=== PATIENT | male | born 1945 | race Caucasian/White ===

== ENCOUNTER → 2018-07-30 08:09 | Outpatient (CLI) | payer MEDICARE, OTHER, SELFPAY ==
[2018-07-22 13:32] VITALS: BMI 23.6
[2018-07-30 09:58] LABS: AST(SGOT) 17 U/L (15-37); Alanine Aminotransfer ALT/SGPT 30 U/L (16-61); Albumin, Serum 3.8 g/dL (3.2-5.0); Alkaline Phosphatase 62 U/L (45-117); Bilirubin, Direct 0.14 mg/dL (0.00-0.30); Cholesterol 113 mg/dL (200); High Density Lipoprotein 57 mg/dL; Protein, Total 6.8 g/dL (6.4-8.2); Triglycerides 70 mg/dL; Very Low Density Lipoprotein 14 mg/dL (5-40)
== END ==
PROVIDERS: Referring Provider Internal Medicine Cardiovascular Disease; Visit Provider Internal Medicine Cardiovascular Disease
DX: I50.32 Chronic diastolic (congestive) heart failure (principal); E78.5 Hyperlipidemia, unspecified
CPT/HCPCS: 36415; 80061; 80076

== ENCOUNTER → 2018-08-28 15:06 | Outpatient (CLI) | payer MEDICARE, OTHER, SELFPAY ==
[2018-07-22 13:32] VITALS: BMI 23.6
[2018-08-28 17:39] LABS: Absolute Lymphocyte Count 1.78 X10^3/ul (0.83-4.51); Absolute Neutrophil Count 3.5 X10^3/uL (2.0-7.7); Basophil# 0.03 X10^3/uL; Basophil% 0.5 % (0-1); Eosinophil# 0.14 X10^3/uL; Eosinophils% 2.3 % (0-5); Hematocrit 38.2 % (40-54); Hemoglobin 11.9 g/dl (13.0-16.5); Lymphocyte # 1.78 X10^3/ul (4.0); Lymphocyte % 29.6 % (19-41); Mean Corp Hgb Conc 31.2 g/gl (32-36); Mean Corpuscular Hgb 26.9 pg (27.0-32.0); Mean Corpuscular Volume 86.2 fL (80-94); Mean Platelet Vol. 9.9 fl (6.2-12.0); Monocyte# 0.57 X10^3/uL; Monocyte% 9.5 % (0-10); Neutrophil # 3.47 X10^3/uL (2.7-7.7); Neutrophil % 57.8 % (47-70); Platelet Count 202 K/mm3 (150-450); RBC Distribution Width CV 16.5 % (11.6-14.6); RBC Distribution Width SD 52.2 fl (35.1-43.9); Red Blood Count 4.43 M/mm3 (4.6-6.2)
[2018-08-28 17:46] LABS: POSITIVE COUNT NO; POSITIVE DIFFERENTIAL NO; POSITIVE MORPHOLOGY NO
[2018-08-28 18:14] LABS: Vitamin D,25 Hydroxy 44.7 ng/mL (29.95-100.01)
[2018-08-28 18:16] LABS: ALB/GLOB Ratio 1.2 RATIO (0.9-2.4); AST(SGOT) 16 U/L (15-37); Alanine Aminotransfer ALT/SGPT 32 U/L (16-61); Albumin, Serum 3.9 g/dL (3.2-5.0); Alkaline Phosphatase 58 U/L (45-117); Anion Gap 8 (5-15); BUN 25 mg/dL (7-18); BUN/Creat Ratio 21.4 RATIO (10-20); Calcium,Total 9.1 mg/dL (8.5-10.1); Chloride 101 mmol/L (98-107); Creatinine, Serum 1.17 mg/dL (0.70-1.30); EST Glomerular Filtration Rate 65 mL/min (>60); Est Glom Filt Rate - Afr Amer 78 mL/min (>60); Globulin 3.3 g/dL (2.2-4.2); Glucose 127 mg/dL (74-106); Magnesium 1.9 mg/dL (1.6-2.6); Potassium 3.9 mmol/L (3.5-5.1); Protein, Total 7.2 g/dL (6.4-8.2); Sodium Level 137 mmol/L (136-145); Thyroid Stim Hormone (TSH) 1.13 uIU/mL (0.358-3.74)
[2018-08-28 18:24] LABS: Hemoglobin A1c 8.1 % (4.2-6.3)
== END ==
PROVIDERS: Family Provider Family Medicine; PCP Family Medicine; Visit Provider Family Medicine
DX: I10 Essential (primary) hypertension (principal); E11.9 Type 2 diabetes mellitus without complications; E55.9 Vitamin D deficiency, unspecified
CPT/HCPCS: 36415; 80053; 82306; 83036; 83735; 84443; 85025

== ENCOUNTER → 2018-09-03 08:58 | Outpatient (CLI) | payer MEDICARE, OTHER, SELFPAY ==
[2018-07-22 13:32] VITALS: BMI 23.6
--- NOTE | 2018-09-03 09:03 | CDU_ITS ---
Reason For Study: Carotid stenosis Rt. Velocities/BP Lt. Velocities/BP Prox CCA 86.3/16.0 cm/sec. Prox CCA 76.2/12.9 cm/sec. Mid CCA 67.5/12.2 cm/sec. Mid CCA 73.3/14.7 cm/sec. Dist CCA 66.9/12.7 cm/sec. Dist CCA 116.0/21.1 cm/sec. Prox ICA 86.8/24.0 cm/sec. Prox ICA 96.7/22.4 cm/sec. Mid ICA 104.0/25.2 cm/sec. Mid ICA 98.5/26.7 cm/sec. Dist ICA 102.0/20.5 cm/sec. Dist ICA 75.9/17.4 cm/sec. Rt. ICA/CCA = 1.5. Lt. ICA/CCA = 1.3. Prox ECA 89.0/7.1 cm/sec. Prox ECA 107.0/8.8 cm/sec. Rt. Vert. 55.4/8.6 cm/sec. Lt. Vert. 68.0/11.1 cm/sec. Right Extracranial There is heterogeneous, irregular atherosclerotic plaque noted in the right common carotid artery. There is heterogeneous, irregular atherosclerotic plaque noted in the right internal carotid artery. The atherosclerotic plaque causes acoustic shadowing. There is heterogeneous, irregular atherosclerotic plaque noted in the right external carotid artery. Antegrade flow is noted in the right vertebral artery. Left Extracranial There is heterogeneous, irregular atherosclerotic plaque noted in the left common carotid artery. There is heterogeneous, irregular atherosclerotic plaque noted in the left internal carotid artery. The atherosclerotic plaque causes acoustic shadowing. There is heterogeneous, irregular atherosclerotic plaque noted in the left external carotid artery. Antegrade flow is noted in the left vertebral artery. Procedure Carotid Duplex [id number]. Exam performed in department. Interpretation Summary Mild (<50%) stenosis right extracranial internal carotid. Mild (<50%) stenosis left extracranial internal carotid. Flow within the vertebral arteries is antegrade bilaterally. Ordering Physician: Nikita Jeff Referring Physician: Jerry Dee Performed By: Siri Valiente RVT
--- NOTE | 2018-09-03 09:03 | ART_ITS ---
Reason For Study: Atherosclerosis with claudication Left Segmental Pressures Left brachial= 162mmHg. Left posterior tibial artery = NCmmHg. Left dorsalis pedis artery = NCmmHg. Right Segmental Pressures Right brachial= 164mmHg. Right posterior tibial artery = NCmmHg. Right dorsalis pedis artery = NCmmHg. Right digit = 195 mmHg. Indices The right ankle brachial index by the dorsalis pedis is NC. The right ankle brachial index by the posterior tibial artery is NC. The right digital-brachial index is 1.2. The left ankle brachial index by the dorsalis pedis is NC. The left ankle brachial index by the posterior tibial artery is NC. Interpretation Summary 1. Bilateral PAYAL noncompressible consistent with medial calcinosis. Triphasic flow noted and left DBI normal. Ordering Physician: Nikita Jeff Referring Physician: Jerry Dee Performed By: Siri Valiente Marine
--- NOTE | 2018-09-03 09:03 | ADUL_ITS ---
Reason For Study: Atherosclerosis with claudication LLE Left Velocities Ext Iliac Artery, dist = 126 cm./sec. Common Femoral Artery, prox = 125 cm./sec. Supf. Femoral Artery, prox = 72.9 cm./sec. Supf. Femoral Artery, mid = 81.3 cm./sec. Supf. Femoral Artery, dist = 65.3 cm./sec. Profunda Femoral Artery = 82.2 cm./sec. Popliteal Artery, proximal, = 45.9 cm./sec. Popliteal Artery, mid = 49.9 cm./sec. Popliteal Artery, distal = 69.8 cm./sec. Post. Tibial Artery, prox = 60.3 cm./sec. Post Tibial Artery, mid = 47.4 cm./sec. Post Tibial Artery, dist. = 53.4 cm./sec. Peroneal Artery, mid = 67.8 cm./sec. Peroneal Artery, prox = 53.9 cm./sec. Ant.Tibial Artery, prox = 22.9 cm./sec. Ant Tibial Artery, mid = 97.3 cm./sec. Ant. Tibial Artery, distal = 73.3 cm./sec. Procedure Exam performed in department. Interpretation Summary 1. Left leg no stenosis and triphasic flow. Ordering Physician: Nikita Jeff Referring Physician: Jerry Dee Performed By: Siri Valiente RVT
--- NOTE | 2018-09-03 09:03 | AAVD_ITS ---
Reason For Study: Aortic atherosclerosis Aorta Measurements Aorta Doppler Measurements Proximal aorta measures1.5 x 1.5cm. in cross- Peak systolic flow velocities within the proximal sectional axis. aorta measure 83.0 cm/sec. Proximal aorta measures1.5cm. in longitudinal Peak systolic flow velocities within the mid aorta axis. measure 88.5 cm/sec. Mid aorta measures1.3 x 1.3cm. in cross-sectional Peak systolic flow velocities within the distal axis. aorta measure 87.6 cm/sec. Mid aorta measures1.3cm. in longitudinal axis. Distal aorta measures1.3 x 1.3cm. in cross- sectional axis. Distal aorta measures1.3cm. in longitudinal axis. Left Iliac Artery Left iliac artery measures .94 cm. in the longitudinal axis. Left iliac artery measures .92 x .94 cm. in the cross-sectional axis. Peak systolic velocity in the left iliac artery measures 89.4 cm/sec. Right Iliac Artery Right iliac artery measures .92 cm. in the longitudinal axis. Right iliac artery measures .97 x .94 cm. in the cross-sectional axis. Peak systolic velocity in the right iliac artery measures 97.6 cm/sec. Procedure Aorta IVC Iliac vasculature or bypass grafts 70071. Exam performed in department. Interpretation Summary 1. no aortoiliac stenosis or aneurysm. Ordering Physician: Nikita Jeff Referring Physician: Jerry Dee Performed By: Siri Valiente RVT
== END ==
PROVIDERS: Family Provider Family Medicine; PCP Family Medicine; Referring Provider Surgery Vascular Surgery; Visit Provider Surgery Vascular Surgery
DX: I70.0 Atherosclerosis of aorta (principal); I65.23 Occlusion and stenosis of bilateral carotid arteries; I70.212 Atherosclerosis of native arteries of extremities with intermittent claudication, left leg
CPT/HCPCS: 93880; 93922; 93926; 93978

== ENCOUNTER → 2018-09-07 13:59 | Outpatient (CLI) | payer MEDICARE, OTHER, SELFPAY ==
[2018-07-22 13:32] VITALS: BMI 23.6
[2018-09-07 14:02] LABS: Bacteria 0 SEEN /hpf (None Seen); Mucous, Urine 0 SEEN /hpf (<or=2+); Red Blood Cells-Urine 0 SEEN /hpf (0-5)
[2018-09-07 15:28] LABS: Color, Urine Yellow (Yellow); Glucose, Dipstick Normal (Normal); Ketone-Dipstick 5 mg/dl (Negative); Leukocyte Esterase-Dipstick 25 /ul (Negative); Nitrite-Dipstick Negative (Negative); Occult Blood-Urine Negative /ul (Negative); Protein-Dipstick Negative (Negative); Urine Bilirubin Dipstick Negative (Negative); Urine Clarity Clear (Clear); Urine Urobilinogen 1 mg/dl (Normal)
[2018-09-07 15:35] LABS: Hyaline Cast 10-25 SEEN /lpf (0-5); Squamous Epithelial Cells - UA 0-5 SEEN /hpf (0-5); White Blood Cells 0-5 SEEN /hpf (0-5)
[2018-09-07 16:18] LABS: Microalbumin,Random Urine 38.7 mg/L (NO RANGE EST.); Microalbumin:Creatinine Ratio 17.4 mg/g CRE (<30 mg/g CRE)
== END ==
PROVIDERS: Family Provider Family Medicine; PCP Family Medicine; Visit Provider Family Medicine
DX: E11.9 Type 2 diabetes mellitus without complications (principal)
CPT/HCPCS: 81001; 82043; 82570

== ENCOUNTER → 2018-10-23 09:13 | Outpatient (CLI) | payer MEDICARE, OTHER, SELFPAY ==
[2018-07-22 13:32] VITALS: BMI 23.6
--- NOTE | 2018-10-23 11:06 | US_ITS ---
STUDY: ULTRASOUND - URINARY BLADDER REASON FOR EXAM: Male, 73 years old. BPH. TECHNIQUE: Ultrasound evaluation of the urinary bladder was performed with real-time and static sy-scale imaging. COMPARISON: None. FINDINGS: There is no right UVJ calculus. There is a non-visualization of a right ureteral jet. There is no left UVJ calculus. There is a non-visualization of a left ureteral jet. The distended volume of the urinary bladder is 96.7 ml. The empty volume of the urinary bladder is 12.8 ml. The bladder wall is within normal limits. The bladder wall measures 3.0 mm. There is no demonstrated bladder wall mass lesion. There are no demonstrated bladder calculi. US/Post Void Residual Bladder IMPRESSION: Normal ultrasound of the urinary bladder. Minimal postvoid residual. Electronically Signed: Singh Brooks, at 10:40 EDT , Service support ,
--- NOTE | 2018-10-23 14:35 | EEG_ITS ---
- Electroencephalogram This is an 18 channel electroencephalogram performed utilizing EKG reference leads as well as the international 1020 electrode placement protocol, photic stimulation and hyperventilation. The test is performed on this 73-year-old male with a history of seizures. Background activity is 8 Hz symmetrically in the posterior leads which attenuates with eye-opening. Hyperventilation is performed for 3 minutes with good effort with no lateralizing or epileptiform changes. The patient remained awake throughout the recording and post hyp erventilatory phase was unremarkable. Photic stimulation generates a normal symmetric driving response and EKG is normal sinus rhythm throughout the recording. Impression: Normal awake electroencephalogram.
== END ==
PROVIDERS: Family Provider Family Medicine; PCP Family Medicine; Referring Provider Family Medicine; Visit Provider Family Medicine
DX: N40.0 Benign prostatic hyperplasia without lower urinary tract symptoms (principal); G40.909 Epilepsy, unspecified, not intractable, without status epilepticus
CPT/HCPCS: 51798; 95819

== ENCOUNTER → 2018-12-15 08:44 | Outpatient (CLI) | payer MEDICARE, OTHER, SELFPAY ==
[2018-07-22 13:32] VITALS: BMI 23.6
[2018-12-15 14:08] LABS: Absolute Lymphocyte Count 1.43 X10^3/ul (0.83-4.51); Absolute Neutrophil Count 1.7 X10^3/uL (2.0-7.7); Basophil# 0.02 X10^3/uL; Basophil% 0.5 % (0-1); Eosinophil# 0.15 X10^3/uL; Hematocrit 35.7 % (40-54); Hemoglobin 11.6 g/dl (13.0-16.5); Lymphocyte # 1.43 X10^3/ul (4.0); Lymphocyte % 37.9 % (19-41); Mean Corp Hgb Conc 32.5 g/gl (32-36); Mean Corpuscular Hgb 29.9 pg (27.0-32.0); Mean Platelet Vol. 9.8 fl (6.2-12.0); Monocyte# 0.47 X10^3/uL; Monocyte% 12.5 % (0-10); Neutrophil % 45.1 % (47-70); Platelet Count 197 K/mm3 (150-450); RBC Distribution Width CV 13.1 % (11.6-14.6); RBC Distribution Width SD 43.5 fl (35.1-43.9); Red Blood Count 3.88 M/mm3 (4.6-6.2); White Blood Count 3.8 K/mm3 (4.4-11.0)
[2018-12-15 14:13] LABS: POSITIVE COUNT NO; POSITIVE DIFFERENTIAL NO; POSITIVE MORPHOLOGY NO
[2018-12-15 14:19] LABS: ALB/GLOB Ratio 1.3 RATIO (0.9-2.4); AST(SGOT) 15 U/L (15-37); Alanine Aminotransfer ALT/SGPT 27 U/L (16-61); Albumin, Serum 3.5 g/dL (3.2-5.0); Alkaline Phosphatase 56 U/L (45-117); Anion Gap 11 (5-15); BUN 10 mg/dL (7-18); BUN/Creat Ratio 10.1 RATIO (10-20); Chloride 105 mmol/L (98-107); Cholesterol 110 mg/dL (200); EST Glomerular Filtration Rate 78 mL/min (>60); Est Glom Filt Rate - Afr Amer 94 mL/min (>60); Globulin 2.7 g/dL (2.2-4.2); Glucose 147 mg/dL (74-106); High Density Lipoprotein 63 mg/dL; Magnesium 1.8 mg/dL (1.6-2.6); Potassium 3.9 mmol/L (3.5-5.1); Protein, Total 6.2 g/dL (6.4-8.2); Sodium Level 140 mmol/L (136-145); Triglycerides 35 mg/dL; Very Low Density Lipoprotein 7 mg/dL (5-40)
[2018-12-15 14:31] LABS: Hemoglobin A1c 7.1 % (4.2-6.3)
[2018-12-16 09:31] LABS: Ferritin 14 ng/mL (26-388); Iron 44 ug/dL (65-175); Iron Binding Capacity,Total 292 ug/dL (250-450); PERCENT IRON SATURATION 15.1 % (15.0-55.0)
[2018-12-16 09:36] LABS: Vitamin B12 554 pg/mL (211-911)
== END ==
PROVIDERS: Family Provider Family Medicine; PCP Family Medicine; Visit Provider Family Medicine
DX: I48.0 Paroxysmal atrial fibrillation (principal); I10 Essential (primary) hypertension; E11.9 Type 2 diabetes mellitus without complications; E55.9 Vitamin D deficiency, unspecified; E78.5 Hyperlipidemia, unspecified; D64.9 Anemia, unspecified
CPT/HCPCS: 36415; 80053; 80061; 82306; 82607; 82728; 83036; 83540; 83550; 83735; 85025

== ENCOUNTER 2019-01-07 05:19 | Day surgery (SDC) | payer MEDICARE, OTHER, SELFPAY ==
--- NOTE | 2018-12-25 03:03 | HP_ITS ---
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: No Is patient in pain?: No Allergies carbamazepine [From Tegretol] Allergy (Verified 12/25/18 14:35) Rash Medications acarbose 50 mg tablet 50 mg PO TID 07/21/18 [History Confirmed 12/25/18] aspirin 81 mg tablet,delayed release 81 mg PO DAILY 07/21/18 [History Confirmed 12/25/18] atorvastatin 80 mg tablet 80 mg PO QHS 07/21/18 [History Confirmed 12/25/18] cholecalciferol (vitamin D3) 2,000 unit capsule 2,000 unit PO DAILY 07/21/18 [History Confirmed 12/25/18] cinnamon bark 500 mg capsule mg PO DAILY cap 07/21/18 [History Confirmed 12/25/18] docusate sodium 100 mg capsule 100 mg PO BID 07/21/18 [History Confirmed 12/25/18] finasteride 5 mg tablet 5 mg PO DAILY 07/21/18 [History Confirmed 12/25/18] insulin degludec (U-100) 100 unit/mL (3 mL) subcutaneous pen 18 unit SC QHS ml 07/21/18 [History Confirmed 12/25/18] lamotrigine 200 mg tablet 200 mg PO BID 07/21/18 [History Confirmed 12/25/18] lidocaine HCl 2 % topical cream 1 applic TOPICAL BID-TID PRN 07/21/18 [History Confirmed 12/25/18] lisinopril 5 mg tablet 5 mg PO DAILY 07/21/18 [History Confirmed 12/25/18] magnesium oxide 400 mg capsule 400 mg PO DAILY cap 07/21/18 [History Confirmed 12/25/18] metformin ER 500 mg tablet,extended release 24 hr 1,000 mg PO BID tab 07/21/18 [History Confirmed 12/25/18] metoprolol succinate ER 25 mg tablet,extended release 24 hr 75 mg PO BID tab 07/21/18 [History Confirmed 12/25/18] nitroglycerin 0.4 mg sublingual tablet 0.4 mg SUBLINGUAL Q5-15M PRN 07/21/18 [History Confirmed 12/25/18] ferrous sulfate 324 mg (65 mg iron) tablet,delayed release 324 mg PO DAILY tab 12/25/18 [History Confirmed 12/25/18] insulin aspart (U-100) 100 unit/mL (3 mL) subcutaneous pen SC 62 Days #15 ml 12/25/18 [History Confirmed 12/25/18] [facility], [facility] Medical History Chronic diastolic (congestive) heart failure (Chronic) Peripheral vascular occlusive disease (Chronic) Paroxysmal atrial fibrillation (Chronic) Hyperlipidemia (Chronic) Atherosclerosis of coronary artery of [place] heart without angina pectoris (Chronic) Essential (primary) hypertension (Chronic) Anemia (Chronic) BPH (benign prostatic hyperplasia) (Chronic) Chronic kidney disease (Chronic) Erectile dysfunction (Chronic) Multinodular goiter (Chronic) Partial seizure disorder (Chronic) Type 2 diabetes mellitus (Chronic) History of non-ST elevation myocardial infarction (NSTEMI) (Resolved 08/26/16) Syncope (Resolved) Surgical History History of coronary artery stent placement (Resolved 08/26/16) History of angioplasty of peripheral vessel (Resolved 06/28/14) History of cardioversion (Resolved 08/21/16) History of inguinal hernia repair (Resolved) History of transmetatarsal amputation of left foot (Resolved ~07/2016) Family History Mother Cancer Father Hypertension Social History Smoking Status: Former smoker quit date: 08/04/69 pack-years: 10 alcohol intake: current alcohol intake frequency: a few times a month substance use type: does not use HPI HPI HPI: AGUSTO CASTILLO, is a 73 M who presents to the office today for HPI HPI Surgical H&P: Yes HPI: AGUSTO CASTILLO, is a 73 M who presents to the office today for who is referred today for surgical consultation regarding mild anemia and fatigue. The patient in August return to this area and he has establish care with Dr Jerry Dee and Dr Jerry Dee refers him for surgical evaluation. The patient has also had additional follow-up. My notes will be reflected in the electronic medical record. Dr. Nikita Jeff has seen the patient for peripheral vascular occlusive disease because the patient has previously had toes amputated from his right foot. By patient report this is stable and Dr. Jeff will see the patient in 1 year. The patient has also been seen by Dr. Baig Rashaun cardiology on July 22, 2018. His medical condition/cardiology condition was reviewed. It was felt also that the patient was stable. The patient remembers a remote colonoscopy perhaps at age 48. He has not been noticing any bright red blood per rectum or melena. He does note fatigue. He states that he used to be an avid bicyclist but now was not able. As of December 15, 2018 BUN was 10 and creatinine 1. Liver function tests normal. Serum iron was low at 44. Ferritin low at 14. Iron saturation borderline low at 15.1. His white blood cell count is 3.8 with a hemoglobin 11.6 and hematocrit 35.7 and a platelet count of 197,000. The patient does not recall abdominal pain. He is not had any previous abdominal surgery other than a previous left inguinal hernia repair remotely The patient does have reflux symptoms and heartburn. He routinely takes an [id number] antacid. He states he has never had an upper endoscopy. ROS General General: Yes weight change and fatigue; no appetite, colon cancer, breast cancer or weakness HEENT HEENT: No difficulty swallowing, eye injury, eye surgery, swollen glands or hoarseness Endo Endocrine: Yes thyroid disease and diabetes mellitus; no thyroid cancer, Hair loss, heat intolerance or cold intolerance Skin Skin: No rash or changing moles Breast Breast: No left breast lump, right breast lump, nipple discharge, breast pain, abnormal mammogram, abnormal US or breast enlargement Musc Musculoskeletal: Yes arthritis; no back problems, rheumatoid arthritis, gout or joint pain Cardio Cardiovascular: Yes murmur, heart disease, atrial fibrillation, high blood pressure, heart attack and heart stent; no pacemaker, palpitations, shortness of breat with exertion or chest pain Psych Psychiatric: No depression, anxiety or hearing voices Resp Respiratory: No shortness of breath, No sleep apnea, No cough, No COPD, No asthma, No emphysema, No wheezing Gastro Gastrointestinal: No abdominal pain, No nausea or vomiting, No diarrhea, No constipation, No blood in stool, Yes acid reflux, No hemorrhoids, No ulcers, No gallbladder problem, No black,tarry stools Toney Hematologic: No blood thinners, No blood disorders, No bleeding, Yes anemia, No blood clots Neuro Neurologic: No system reviewed and no additional complaints, except as docu, No as per HPI, No abnormal walking, No abnormal hearing, No abnormal movements, No abnormal speech, No behavioral changes, No burning sensations, No confusion, No seizure-like activity, No unsteadiness, No dizziness, No localized weakness, No frequent falls, No headache(s), No lack of coordination, No loss of vision, No memory loss, No numbness, No other visual disturbances, No radiating pain, No restless legs, No sensory deficit, No fainting, No tingling, No tremor(s), No weakness, No other Exam Const General: cooperative, comfortable, other (Appears pale) Nutritional Appearance: average body habitus Orientation: alert, awake Eyes General: appearance normal, both eyes and all related structures Neck Neck: other (Kyphosis) Carotids: normal carotid upstroke, no bruits Chest Chest palpation & inspection: normal inspection of the chest Breast Palpation: No nipple discharge Resp Effort & Inspection: normal respiratory effort Auscultation: clear to auscultation bilaterally Cardio Rate: regular rate Rhythm: regular rhythm Heart Sounds: murmur GI Palpation: soft, no hepatosplenomegaly Auscultation: normal bowel sounds Neuro Cognition: normal cognition Extrem General: no calf tenderness bilaterally Psych Affect: normal affect Assessment & Plan Problems 1. Gastroesophageal reflux disease, esophagitis presence not specified K21.9 2. Iron deficiency anemia, unspecified iron deficiency anemia type D50.9 Plan I am proposing to the patient a combined esophagogastroduodenoscopy as well as colonoscopy with possible biopsy or polypectomy is indicated. He is aware of the technique, benefit, risks, alternatives. Because of his long-term diabetes and coronary stent he is at slightly increased risk. He also has a history of paroxysmal atrial fibrillation. I propose that we would proceed with monitored anesthesia care. He has had chronic reflux symptoms. He has had an opportunity to ask and have questions answered. I very much appreciate the kind opportunity of assisting with his surgical care. We will schedule and proceed at his discretion. CC: Dr Jerry Chamorro M.D., F.A.C.S. Coding Level of Care Code Comprehensive,moderate Diagnoses Gastroesophageal reflux disease, esophagitis presence not specified K21.9 ??Esophagitis presence: esophagitis presence not specified Iron deficiency anemia, unspecified iron deficiency anemia type D50.9 ??Iron deficiency anemia type: unspecified iron deficiency 12/25/18 1503 <Electronically signed by Shaquille Chamorro MD> Date Shaquille Chamorro MD I have re-examined the patient. There are no clinical changes since date of exam.
[2018-12-25 14:35] VITALS: BMI 24.8
[2019-01-07] VITALS (9 sets, daily range): BP systolic 103–181; BP diastolic 53–73; PULSE 61–63; RESP 16; TEMP 36.3–37.2; O2SAT 96–98; BMI 25.0
--- NOTE | 2019-01-07 06:30 | EGD_PTH ---
PATIENT: AGUSTO CASTILLO LOC: EN U#:[id number] AGE/SX: 73/M ROOM: RE01/07/[address]: Dr. Shaquille Chamorro MD : 1945 BED: DIS: 01/07/2019 SPEC #: [id number] RECD: 01/07/19 07:50 STATUS: JOSETTE DONAL #: [id number] LYNN: 01/07/19 06:[address]: Shaquille Chamorro DEPT: SURGICAL PATHOLOGY RECD BY: Phyllis Mendoza ENTERED: 01/07/19 08:58 SP TYPE: EGD BIOPSY OT DR: Dr. Jerry Dee MD Tissues: A - Gastric mucous membrane B - Esophageal mucous membrane C - Transverse colon D - Rectum, NOS Procedures: Surgery Specimen Level IV HEADER OPERATION: Colonoscopy, EGD ([facility] [place]) PRE-OP DIAGNOSIS: GE reflux disease, iron deficiency anemia TISSUE SUBMITTED: A. Antral biopsy and H. Pylori, B. Distal esophageal biopsy, C. Distal transverse colon polyp, D. Rectal polyp MICROSCOPIC DIAGNOSIS A. Antral biopsy: Mild gastritis. See microscopic description and comment. B. Distal esophageal biopsy: Fragments of squamous epithelium with mild congestion, minimal chronic inflammation and reactive changes. C. Polyp, distal transverse colon biopsy: Fragment of colonic mucosa, no pathologic diagnosis. D. Rectal polyp, biopsy; Fragments of tubular adenoma. SJ:luis daniel 01/08/19 COMMENT A. The results of immunohistochemistry for Helicobacter pylori will be reported separately ([id number]). MICROSCOPIC DESCRIPTION Slides are reviewed. A. The specimen shows fragments of gastric mucosa with chronic inflammatory cell infiltrates in the lamina propria consisting of lymphocytes and plasma cells, consistent with mild chronic gastritis. GROSS DESCRIPTION A - Received in fixative is one container labeled with the patient's name and designated antral biopsy. The specimen consists of one irregular fragment of light abraham soft tissue that measures 0.5 x 0.3 x 0.1 cm. The specimen is totally submitted in one cassette. B - Received in fixative is one container labeled with the patient's name and designated distal esophageal biopsy. The specimen consists of multiple irregular fragments of light abraham soft tissue that in aggregate measure 0.8 x 0.5 x 0.1 cm. The specimen is totally submitted in one cassette. C - Received in fixative is one container labeled with the patient's name and designated polyp distal transverse. The specimen consists of one irregular fragment of light abraham soft tissue that measures 0.4 x 0.3 x 0.1 cm. The specimen is totally submitted in one cassette. D - Received in fixative is one container labeled with the patient's name and designated rectal polyp. The specimen consists of multiple irregular fragments of light abraham soft tissue that in aggregate measure 1.4 x 0.3 x 0.1 cm. The specimen is totally submitted in one cassette. / SJ:rg 01/07/19 TC:1 CPT: 65007 x4
--- NOTE | 2019-01-07 06:30 | IMM_PTH ---
PATIENT: AGUSTO CASTILLO LOC: EN U#:[id number] AGE/SX: 73/M ROOM: RE01/07/[address]: Dr. Shaquille Chamorro MD : 1945 BED: DIS: 01/07/2019 SPEC #: [id number] RECD: 01/07/19 13:41 STATUS: JOSETTE REJuanis #: [id number] LYNN: 01/07/19 06:[address]: Shaquille Chamorro DEPT: IMMUNOHISTOCHEMISTRY RECD BY: Dina Pradhan ENTERED: 01/07/19 13:43 SP TYPE: IMMUNO OTHR DR: Dr. Jerry Dee MD Tissues: A - Stomach, NOS Procedures: H Pylori (initial) PHYSICIAN & INSTITUTION [place] [id number] SPECIMEN INFORMATION: Tissue Source: A - Antral biopsy Clinical Info: GERD, iron deficiency anemia Specimen Number: [id number] CPT code: 39665 METHODOLOGY: Deparaffinized sections of prefer/formalin-fixed tissue or PAP/DQ stained slides are incubated with monoclonal/polyclonal antibodies/oligonucleotide probes. Localization is made via biotin free immunoperoxidase method. Appropriate controls are performed and reacted as expected. Results on target cell population are indicated in the following table: RESULTS: ANTIBODY / CLONE RESULT Block A H Pylori (polyclonal) negative These tests were developed and their performance characteristics determined by [facility]. They may not have been cleared or approved by the U.S. Food and Drug Administration. The FDA has determined that such clearance or approval is not necessary. INTERPRETATION: A. Antral biopsy: Negative for Helicobacter pylori organisms. SJ:luis daniel 01/08/19
--- NOTE | 2019-01-07 07:04 | OP.ENDO_ITS ---
01/07/2019 Jerry Dee [address] [place] [address] Re : Upper GI endoscopy procedure for Sunday Warner Dear Dr. Dee This procedure was performed on January. My impressions and recommendations are as follows: Impressions : - LA Grade A reflux esophagitis. Biopsied. - Z-line irregular, 40 cm from the incisors. - Small hiatal hernia. - Acute gastritis with hemorrhage. Biopsied. - Normal examined duodenum. Recommendations : - Discharge patient to home. - Resume previous diet. - Continue present medications. - Use Prilosec (omeprazole) 40 mg PO daily. - Telephone my office for pathology results in 1 week. I suspect esophagitis and gastritis as the source of blood loss and anemia. Consider holding aspirin My findings are described in the full procedure note, which is enclosed. If I can be of further assistance, please feel free to contact me at Doctor phone number(s): Work: . Sincerely, Shaquille Chamorro MD 01/07/2019 7:03:59 AM This report has been signed electronically.
--- NOTE | 2019-01-07 07:08 | OP.ENDO_ITS ---
01/07/2019 Jerry Dee [address] [place] [address] Re : Colonoscopy procedure for Sunday Warner Dear Dr. Dee This procedure was performed on January. My impressions and recommendations are as follows: Impressions : - Hemorrhoids found on perianal exam. - Enlarged prostate found on digital rectal exam. - One 5 mm polyp in the distal transverse colon, removed with a cold biopsy forceps. Resected and retrieved. - One 5 mm polyp in the rectum, removed with a cold biopsy forceps. Resected and retrieved. - Moderate diverticulosis in the sigmoid colon. There was no evidence of diverticular bleeding. Recommendations : - Discharge patient to home. - Resume previous diet. - Continue present medications. - Repeat colonoscopy in 5 years for surveillance. - Telephone my office for pathology results in 1 week. My findings are described in the full procedure note, which is enclosed. If I can be of further assistance, please feel free to contact me at Doctor phone number(s): Work: . Sincerely, Shaquille Chamorro MD 01/07/2019 7:08:03 AM This report has been signed electronically.
== END 2019-01-07 08:30 | disposition home or self-care (01) ==
LOC: EN 05:20 → AC 05:21
PROVIDERS: Family Provider Family Medicine; PCP Family Medicine; Referring Provider Family Medicine; Visit Provider Surgery
PROC: 0DJD8ZZ Inspection of Lower Intestinal Tract, Via Natural or Artificial Opening Endoscopic (ICD-10-PCS; CPT 45378; principal; 2019-01-07 06:25)
DX: K29.01 Acute gastritis with bleeding (principal); D12.8 Benign neoplasm of rectum; K21.0 Gastro-esophageal reflux disease with esophagitis; K44.9 Diaphragmatic hernia without obstruction or gangrene; K63.5 Polyp of colon; K57.30 Diverticulosis of large intestine without perforation or abscess without bleeding; K64.9 Unspecified hemorrhoids; D50.9 Iron deficiency anemia, unspecified; I13.0 Hypertensive heart and chronic kidney disease with heart failure and stage 1 through stage 4 chronic kidney disease, or unspecified chronic kidney disease; E11.22 Type 2 diabetes mellitus with diabetic chronic kidney disease; N18.9 Chronic kidney disease, unspecified; I50.32 Chronic diastolic (congestive) heart failure; I73.9 Peripheral vascular disease, unspecified; I48.0 Paroxysmal atrial fibrillation; E78.5 Hyperlipidemia, unspecified; I25.10 Atherosclerotic heart disease of native coronary artery without angina pectoris; N40.0 Benign prostatic hyperplasia without lower urinary tract symptoms; I25.2 Old myocardial infarction; R56.9 Unspecified convulsions; Z87.891 Personal history of nicotine dependence; Z79.82 Long term (current) use of aspirin; Z79.4 Long term (current) use of insulin; Z79.899 Other long term (current) drug therapy
CPT/HCPCS: 43239; 45380; 88305; 88342; J7120

== ENCOUNTER → 2019-01-28 | Outpatient (CLI) | payer MEDICARE, OTHER, SELFPAY ==
[2019-01-07 05:49] VITALS: BMI 25.0
[2019-01-28 16:05] LABS: Hematocrit 37.7 % (40-54); Hemoglobin 12.4 g/dl (13.0-16.5); Mean Corp Hgb Conc 32.9 g/gl (32-36); Mean Corpuscular Volume 91.1 fL (80-94); Mean Platelet Vol. 10.3 fl (6.2-12.0); Platelet Count 186 K/mm3 (150-450); RBC Distribution Width CV 12.4 % (11.6-14.6); RBC Distribution Width SD 40.7 fl (35.1-43.9); Red Blood Count 4.14 M/mm3 (4.6-6.2); Scan Indicated on CBC? Y/N NO
== END | disposition home or self-care (01) ==
LOC: LAB 13:28
PROVIDERS: Family Provider Family Medicine; PCP Family Medicine; Referring Provider Surgery; Visit Provider Surgery
DX: D50.9 Iron deficiency anemia, unspecified (principal)
CPT/HCPCS: 36415; 85027

== ENCOUNTER → 2019-04-13 | Outpatient (CLI) | payer MEDICARE, OTHER, SELFPAY ==
[2019-02-02 12:03] VITALS: BMI 25.0
[2019-04-13 10:20] LABS: Absolute Lymphocyte Count 2.48 X10^3/uL (0.83-4.51); Absolute Neutrophil Count 2.6 X10^3/uL (2.0-7.7); Basophil# 0.04 X10^3/uL; Basophil% 0.7 % (0-1); Eosinophils% 3.4 % (0-5); Hematocrit 45.9 % (40-54); Hemoglobin 15.3 g/dL (13.0-16.5); Lymphocyte # 2.48 X10^3/ul (4.0); Lymphocyte % 41.8 % (19-41); Mean Corp Hgb Conc 33.3 g/dL (32-36); Mean Corpuscular Hgb 29.9 pg (27.0-32.0); Mean Corpuscular Volume 89.6 fL (80-94); Mean Platelet Vol. 9.7 fl (6.2-12.0); Monocyte# 0.58 X10^3/uL; Monocyte% 9.8 % (0-10); NRBC Flagged by Analyzer 0 % (0-5); Neutrophil # 2.62 X10^3/uL (2.7-7.7); Platelet Count 201 K/mm3 (150-450); RBC Distribution Width CV 11.9 % (11.6-14.6); RBC Distribution Width SD 38.8 fl (35.1-43.9); Red Blood Count 5.12 M/mm3 (4.6-6.2); White Blood Count 5.9 K/mm3 (4.4-11.0)
[2019-04-13 11:02] LABS: Hemoglobin A1c 7.4 % (4.2-6.3)
[2019-04-13 11:08] LABS: ALB/GLOB Ratio 1.2 RATIO (0.9-2.4); AST(SGOT) 28 U/L (15-37); Alanine Aminotransfer ALT/SGPT 60 U/L (16-61); Albumin, Serum 3.6 g/dL (3.2-5.0); Alkaline Phosphatase 66 U/L (45-117); Anion Gap 7 (5-15); BUN 15 mg/dL (7-18); BUN/Creat Ratio 14.3 RATIO (10-20); Calcium,Total 8.9 mg/dL (8.5-10.1); Chloride 107 mmol/L (98-107); Creatinine, Serum 1.05 mg/dL (0.70-1.30); EST Glomerular Filtration Rate 73 mL/min (>60); Est Glom Filt Rate - Afr Amer 88 mL/min (>60); Ferritin 75 ng/mL (26-388); Glucose 103 mg/dL (74-106); Iron 80 ug/dL (65-175); Iron Binding Capacity,Total 265 ug/dL (250-450); Potassium 4.2 mmol/L (3.5-5.1); Protein, Total 6.6 g/dL (6.4-8.2); Sodium Level 141 mmol/L (136-145)
== END | disposition home or self-care (01) ==
LOC: MFPLAB 08:49
PROVIDERS: Family Provider Family Medicine; PCP Family Medicine; Referring Provider Family Medicine; Visit Provider Family Medicine
DX: E11.9 Type 2 diabetes mellitus without complications (principal); E61.1 Iron deficiency; I10 Essential (primary) hypertension
CPT/HCPCS: 36415; 80053; 82728; 83036; 83540; 83550; 85025

== ENCOUNTER 2019-05-24 07:05 | Day surgery (SDC) | payer MEDICARE, OTHER, SELFPAY ==
[2019-04-24 10:10] VITALS: BMI 25.0
--- NOTE | 2019-04-24 10:10 | HP_ITS ---
ADDENDUM by Shaquille Chamorro MD on 04/28/19 at 1421 Addendum entered and electronically signed by Shaquille Chamorro MD 04/28/19 14:21: I have received information from the [facility] with operative note dated April 17, 2018. The patient was felt to have a left inguinal hernia and underwent a laparoscopic left inguinal hernia repair with mesh. A indirect hernia was identified. States that a 2 cm incision was made inferior to the umbilicus and then the rectus sheath was incised the rectus muscle split the posterior sheath identified and a dissecting balloon was placed and was used to dissect the preperitoneal space. The left side was then dissected free and a large indirect hernia and cord lipoma were freed unfortunately a comment is made that the right side was inspected there was no hernia present there at that time. A Parietex left inguinal mesh was placed tacked to the pubis with his orbit tach. The anterior sheath was closed with 0 Vicryl. IV urology note dated May 12, 2018. Patient apparently had a Post catheter removed went into acute retention and had to have a catheter replaced. Cloudy yellow urine greater than 1 cc was removed. Greater than 20 WBCs. The patient was initiated on cephalexin. Patient was instructed on intermittent straight cath but did not feel comfortable with it We are awaiting local urology consultation for assistance April 28, 2019. Shaquille Chamorro M.D., F.A.C.S. Intake Chief Complaint: [facility] Allergies carbamazepine [From Tegretol] Allergy (Verified 04/24/19 07:41) Rash Medications aspirin 81 mg tablet,delayed release 81 mg PO DAILY 07/21/18 [History Confirmed 04/24/19] atorvastatin 80 mg tablet 80 mg PO QHS 07/21/18 [History Confirmed 04/24/19] cholecalciferol (vitamin D3) 2,000 unit capsule 2,000 unit PO DAILY 07/21/18 [History Confirmed 04/24/19] cinnamon bark 500 mg capsule 1 cap PO QHS cap 07/21/18 [History Confirmed 04/24/19] finasteride 5 mg tablet 5 mg PO QHS 07/21/18 [History Confirmed 04/24/19] insulin degludec (U-100) 100 unit/mL (3 mL) subcutaneous pen 15 unit SC QHS ml 07/21/18 [History Confirmed 04/24/19] lamotrigine 200 mg tablet 200 mg PO BID 07/21/18 [History Confirmed 04/24/19] lisinopril 5 mg tablet 5 mg PO QHS 07/21/18 [History Confirmed 04/24/19] metformin ER 500 mg tablet,extended release 24 hr 500 mg PO BID tab 07/21/18 [History Confirmed 04/24/19] metoprolol succinate ER 25 mg tablet,extended release 24 hr 75 mg PO BID tab 07/21/18 [History Confirmed 04/24/19] ferrous sulfate 324 mg (65 mg iron) tablet,delayed release 324 mg PO QHS tab 12/25/18 [History Confirmed 04/24/19] insulin aspart (U-100) 100 unit/mL (3 mL) subcutaneous pen 8 units SC DAILY 62 Days #15 ml 12/25/18 [History Confirmed 04/24/19] Ascorbic Acid [Vitamin C] 500 mg PO QHS 01/06/19 [History Confirmed 04/24/19] Calcium Carb/Mag Ox/Zinc Sulf [Cxykxur-Twepzkqlb-Xpws Tablet] 1 ea PO QHS 01/06/19 [History Confirmed 04/24/19] Potassium Gluconate 550 mg PO QHS 01/06/19 [History Confirmed 04/24/19] Saw [place] Fruit [Saw [place]] 450 mg PO QHS 01/06/19 [History Confirmed 04/24/19] Tamsulosin HCl [Flomax] 0.4 mg PO QHS 01/06/19 [History Confirmed 04/24/19] omeprazole 20 mg capsule,delayed release 20 mg PO DAILY #60 cap 02/02/19 [Rx Confirmed 04/24/19] Assessment & Plan Problems 1. Ventral incisional hernia without obstruction or gangrene K43.2 2. Inguinal hernia of right side without obstruction or gangrene K40.90 3. Urinary retention due to benign prostatic hyperplasia N40.1; R33.8 Plan - Shaquille Chamorro MD Slightly more complicated 74-year-old gentleman. He has a quite symptomatic mostly reducible right inguinal hernia. Likely indirect. Unfortunately he also appears to have a ventral incisional hernia based upon the umbilicus and slightly to the right related to his previous left inguinal hernia repair that was performed at [facility] 1 year ago. To further complicate things at his previous operation he had significant postoperative difficulties with acute urinary retention requiring a catheter for approximately 1 month. He currently despite seemingly medical maximization of his care has ongoing acute urinary symptoms. I have proposed for him a ventral incisional hernia repair basing an incision at the umbilicus vertically with inspection of that previous incision site with an subsequent laparoscopic right inguinal hernia repair at that same setting with mesh. I have discussed technique, benefits, risks, alternatives. Unfortunately I have instructed him that for sure this would cause acute postoperative urinary retention again requiring a catheter. I definitively recommend that we obtain urgent urology consultation to see if any additional medical treatment can be instituted or whether the patient should have a more urgent urologic procedure prior to repairing his right anal hernia and ventral incisional hernia. Unfortunately recently the right inguinal hernia has become much more symptomatic. I am able to reduce it however today. The patient is instructed that we will contact Dr. Lopez and we will try to expedite his consultation and care for him. As today is Friday we would need to wait Friday to make that contact Finally the patient does not have his records regarding his left inguinal hernia repair and I would like to obtain records regarding that procedure prior to proceeding. The patient has signed a medical information release form. I very much appreciate the kind opportunity of assisting with the surgical care. CC: Dr Jerry Chamorro M.D., F.A.C.S. 04/28/19 1421 <Electronically signed by Shaquille roblero MD> Date _ Shaquille Chamorro MD cc: Jerry Dee MD ~* Signed Intake Vital Signs 04/24/19 Body Mass Index (BMI) 25.0 04/24/19 Height 5 ft 11 in 04/24/19 Weight: 177 lb 5 oz 04/24/19 Body Mass Index (BMI) 24.7 04/24/19 Blood Pressure 175/75 H 04/24/19 Blood Pressure Location Rt brachial 04/24/19 Blood Pressure Position Sitting 04/24/19 Respiratory Rate 20 H 04/24/19 Pulse Rate 92 04/24/19 Pulse Ox 98 Intake Visit Reasons: Inguinal Hernia Chief Complaint: [facility] [employer] Required: No Is patient in pain?: Yes (right groin area ) Pain scale (1-10): 3 Allergies carbamazepine [From Tegretol] Allergy (Verified 04/24/19 07:41) Rash Medications aspirin 81 mg tablet,delayed release 81 mg PO DAILY 07/21/18 [History Confirmed 04/24/19] atorvastatin 80 mg tablet 80 mg PO QHS 07/21/18 [History Confirmed 04/24/19] cholecalciferol (vitamin D3) 2,000 unit capsule 2,000 unit PO DAILY 07/21/18 [History Confirmed 04/24/19] cinnamon bark 500 mg capsule 1 cap PO QHS cap 07/21/18 [History Confirmed 04/24/19] finasteride 5 mg tablet 5 mg PO QHS 07/21/18 [History Confirmed 04/24/19] insulin degludec (U-100) 100 unit/mL (3 mL) subcutaneous pen 15 unit SC QHS ml 07/21/18 [History Confirmed 04/24/19] lamotrigine 200 mg tablet 200 mg PO BID 07/21/18 [History Confirmed 04/24/19] lisinopril 5 mg tablet 5 mg PO QHS 07/21/18 [History Confirmed 04/24/19] metformin ER 500 mg tablet,extended release 24 hr 500 mg PO BID tab 07/21/18 [History Confirmed 04/24/19] metoprolol succinate ER 25 mg tablet,extended release 24 hr 75 mg PO BID tab 07/21/18 [History Confirmed 04/24/19] ferrous sulfate 324 mg (65 mg iron) tablet,delayed release 324 mg PO QHS tab 12/25/18 [History Confirmed 04/24/19] insulin aspart (U-100) 100 unit/mL (3 mL) subcutaneous pen 8 units SC DAILY 62 Days #15 ml 12/25/18 [History Confirmed 04/24/19] Ascorbic Acid [Vitamin C] 500 mg PO QHS 01/06/19 [History Confirmed 04/24/19] Calcium Carb/Mag Ox/Zinc Sulf [Lykbevz-Hdliwdxmo-Cmmv Tablet] 1 ea PO QHS 01/06/19 [History Confirmed 04/24/19] Potassium Gluconate 550 mg PO QHS 01/06/19 [History Confirmed 04/24/19] Saw [place] Fruit [Saw [place]] 450 mg PO QHS 01/06/19 [History Confirmed 04/24/19] Tamsulosin HCl [Flomax] 0.4 mg PO QHS 01/06/19 [History Confirmed 04/24/19] omeprazole 20 mg capsule,delayed release 20 mg PO DAILY #60 cap 02/02/19 [Rx Confirmed 04/24/19] [facility] Medical History Iron deficiency anemia (Acute) Acid reflux (Acute) Chronic diastolic (congestive) heart failure (Chronic) Peripheral vascular occlusive disease (Chronic) Paroxysmal atrial fibrillation (Chronic) Hyperlipidemia (Chronic) Atherosclerosis of coronary artery of [place] heart without angina pectoris (Chronic) Essential (primary) hypertension (Chronic) Anemia (Chronic) BPH (benign prostatic hyperplasia) (Chronic) Chronic kidney disease (Chronic) Erectile dysfunction (Chronic) Multinodular goiter (Chronic) Partial seizure disorder (Chronic) Type 2 diabetes mellitus (Chronic) History of non-ST elevation myocardial infarction (NSTEMI) (Resolved 08/26/16) Syncope (Resolved) Surgical History History of coronary artery stent placement (Resolved 08/26/16) History of angioplasty of peripheral vessel (Resolved 06/28/14) History of cardioversion (Resolved 08/21/16) History of inguinal hernia repair (Resolved) History of transmetatarsal amputation of left foot (Resolved ~07/2016) Family History Mother Cancer Father Hypertension Social History (Updated 04/24/19 @ 10:11 by Shaquille Chamorro MD) Smoking Status: Former smoker quit date: 08/04/69 pack-years: 10 alcohol intake: current alcohol intake frequency: a few times a month substance use type: does not use HPI HPI HPI: AGUSTO CASTILLO, is a 74 M who presents to the office today for HPI HPI Surgical H&P: Yes HPI: AGUSTO CASTILLO, is a 74 M who presents to the office today for surgical consultation regarding a very symptomatic right inguinal hernia. The patient is referred by his primary care physician Dr Jerry Dee and a written copy of my surgical consult recommendations will be returned to him. Very pleasant 74-year-old gentleman. On January 07, 2019 and performed a colonoscopy on him demonstrating diverticulosis. On this occasion he returns complaining of a focal burning bulging pain in the right groin. Both he and his state that one year ago at the [facility] that he had a left inguinal hernia repaired. He seems to be reasonably adamant that there was no mesh used but the incisions look like it was done laparoscopically. There is an odd transverse incision slightly below the umbilicus. Patient however states that he had significant difficult with postoperative urinary retention. Because of the patient's tremors he was not able to do straight catheterization and it sounds like he had a Post catheter in for almost a month. Apparently there was additional discussion that he would benefit from a TURP or bladder outlet obstruction surgical procedure but apparently that was never pursued because his urologist subsequently left and he did not have follow-up. He is not currently been seen by a local urologist. He is on finasteride and saw palmetto and tamsulosin. Unfortunately he complains of urinary urgency and urinary incontinence. ROS General General: Yes weight change and fatigue; no appetite, colon cancer, breast cancer or weakness HEENT HEENT: No difficulty swallowing, eye injury, eye surgery, swollen glands or hoarseness Endo Endocrine: Yes thyroid disease and diabetes mellitus; no thyroid cancer, Hair loss, heat intolerance or cold intolerance Skin Skin: No rash or changing moles Breast Breast: No left breast lump, right breast lump, nipple discharge, breast pain, abnormal mammogram, abnormal US or breast enlargement Musc Musculoskeletal: Yes arthritis; no back problems, rheumatoid arthritis, gout or joint pain Cardio Cardiovascular: Yes murmur, heart disease, atrial fibrillation, high blood pressure, heart attack and heart stent; no pacemaker, palpitations, shortness of breat with exertion or chest pain Psych Psychiatric: No depression, anxiety or hearing voices Resp Respiratory: No shortness of breath, No sleep apnea, No cough, No COPD, No asthma, No emphysema, No wheezing Gastro Gastrointestinal: No abdominal pain, No nausea or vomiting, No diarrhea, No constipation, No blood in stool, Yes acid reflux, No hemorrhoids, No ulcers, No gallbladder problem, No black,tarry stools Toney Hematologic: No blood thinners, No blood disorders, No bleeding, Yes anemia, No blood clots Neuro Neurologic: No weakness Exam Const General: cooperative, healthy appearing, comfortable Nutritional Appearance: average body habitus Orientation: alert, awake, oriented x3 HENMT Head: normal to inspection Eyes General: appearance normal, both eyes and all related structures Chest Breast Palpation: No nipple discharge Resp Effort & Inspection: normal respiratory effort Auscultation: clear to auscultation bilaterally Cardio Rate: regular rate Rhythm: regular rhythm Heart Sounds: murmur GI Other: Soft, partially reducible hernia at the umbilicus. Located at the umbilicus and slightly inferior to the right. Normal bowel sounds, not pulsatile or expansile Other: Obvious right inguinal hernia very tender to light palpation with him standing. Partially reducible. Testicles are descended. No tenderness or defect on the left Skin General: no rashes or lesions noted Neuro Cognition: normal cognition Extrem General: no calf tenderness bilaterally Psych Affect: normal affect Assessment & Plan Problems 1. Ventral incisional hernia without obstruction or gangrene K43.2 2. Inguinal hernia of right side without obstruction or gangrene K40.90 3. Urinary retention due to benign prostatic hyperplasia N40.1; R33.8 Plan Slightly more complicated 74-year-old gentleman. He has a quite symptomatic mostly reducible right inguinal hernia. Likely indirect. Unfortunately he also appears to have a ventral incisional hernia based upon the umbilicus and slightly to the right related to his previous left inguinal hernia repair that was performed at [facility] 1 year ago. To further complicate things at his previous operation he had significant postoperative difficulties with acute urinary retention requiring a catheter for approximately 1 month. He currently despite seemingly medical maximization of his care has ongoing acute urinary symptoms. I have proposed for him a ventral incisional hernia repair basing an incision at the umbilicus vertically with inspection of that previous incision site with an subsequent laparoscopic right inguinal hernia repair at that same setting with mesh. I have discussed technique, benefits, risks, alternatives. Unfortunately I have instructed him that for sure this would cause acute postoperative urinary retention again requiring a catheter. I definitively recommend that we obtain urgent urology consultation to see if any additional medical treatment can be instituted or whether the patient should have a more urgent urologic procedure prior to repairing his right anal hernia and ventral incisional hernia. Unfortunately recently the right inguinal hernia has become much more symptomatic. I am able to reduce it however today. The patient is instructed that we will contact Dr. Lopez and we will try to expedite his consultation and care for him. As today is Friday we would need to wait Friday to make that contact Finally the patient does not have his records regarding his left inguinal hernia repair and I would like to obtain records regarding that procedure prior to proceeding. The patient has signed a medical information release form. I very much appreciate the kind opportunity of assisting with the surgical care. CC: Dr Jerry Chamorro M.D., F.A.C.S. Coding Level of Care Code 97720 Diagnoses Ventral incisional hernia without obstruction or gangrene K43.2 Inguinal hernia of right side without obstruction or gangrene K40.90 Urinary retention due to benign prostatic hyperplasia N40.1; R33.8 04/24/19 1011 <Electronically signed by Shaquille roblero MD> Date _ Shaquille Chamorro MD I have re-examined the patient. There are no clinical changes since date of exam.
--- NOTE | 2019-05-19 10:26 | EKG12_ITS ---
Test Reason : PRE OP Blood Pressure : / mmHG Vent. Rate : 089 BPM Atrial Rate : 500 BPM P-R Int : 000 ms QRS Dur : 106 ms QT Int : 344 ms P-R-T Axes : 000 060 002 degrees QTc Int : 418 ms Atrial fibrillation Inferior infarct , age undetermined Abnormal ECG Confirmed by SLICK DELEON ([id number]), movie editor ISIDRO MAI ([id number]) on 05/21/2019 10:25:25 AM Referred By: Shaquille Chamorro Confirmed By:SLICK DELEON
[2019-05-19 10:38] LABS: Hemoglobin 14.7 g/dL (13.0-16.5); Mean Corp Hgb Conc 33.4 g/dL (32-36); Mean Corpuscular Hgb 30.1 pg (27.0-32.0); Mean Corpuscular Volume 90.2 fL (80-94); Mean Platelet Vol. 9.4 fl (6.2-12.0); Platelet Count 219 K/mm3 (150-450); RBC Distribution Width CV 12.2 % (11.6-14.6); RBC Distribution Width SD 39.8 fl (35.1-43.9); Red Blood Count 4.88 M/mm3 (4.6-6.2); White Blood Count 6.6 K/mm3 (4.4-11.0)
[2019-05-19 11:09] LABS: Anion Gap 6 (5-15); BUN 16 mg/dL (7-18); Calcium,Total 9.6 mg/dL (8.5-10.1); Chloride 101 mmol/L (98-107); Creatinine, Serum 1.23 mg/dL (0.70-1.30); EST Glomerular Filtration Rate 61 mL/min (>60); Est Glom Filt Rate - Afr Amer 74 mL/min (>60); Glucose 116 mg/dL (74-106); Potassium 4.2 mmol/L (3.5-5.1); Sodium Level 136 mmol/L (136-145)
[2019-05-24 07:36] VITALS: BP 141/84; PULSE 73; RESP 16; TEMP 36.6; O2SAT 100; BMI 25.2
[2019-05-24 07:45] LABS: Bedside Glucose 88 mg/dL (70-110)
[2019-05-24] MEDS: Lactated Ringers 1,000 ML 15 ML IV ×2 (07:47→10:30)
--- NOTE | 2019-05-24 09:06 | HP.PCM_ITS ---
Problem List (1) Inguinal hernia of right side without obstruction or gangrene Status: Acute (2) Ventral incisional hernia without obstruction or gangrene Status: Acute History and Physical Date of Admission: 05/24/19 [facility] Medical Records Department [address] [place] [address] History and Physical 04/24/19 1010 MR#: [id number] Acct: [id number] Name: AGUSTO CASTILLO Rep #:[id number] : 1945 74 From: Shaquille Chamorro MD PCP: Jerry Dee MD Status:PRE SD C Location: SDC Intake Vital Signs 05/24/19 Body Mass Index (BMI) 25.0 05/24/19 Height 5 ft 9 in 05/24/19 Weight: 170 lb 05/24/19 Body Mass Index (BMI) 25.0 05/24/19 Blood Pressure 141/85 H 05/24/19 Blood Pressure Location Rt brachial 05/24/19 Blood Pressure Position Sitting 05/24/19 Respiratory Rate 16 H 05/24/19 Pulse Rate 73 05/24/19 Pulse Ox 100 Intake Visit Reasons: Inguinal Hernia Chief Complaint: [facility] Site Identification Specialist Required: No Is patient in pain?: Yes (right groin area ) Pain scale (1-10): 3 Allergies carbamazepine [From Tegretol] Allergy (Verified 04/24/19 07:41) Rash Medications aspirin 81 mg tablet,delayed release 81 mg PO DAILY 07/21/18 [History Confirmed 04/24/19] atorvastatin 80 mg tablet 80 mg PO QHS 07/21/18 [History Confirmed 04/24/19] cholecalciferol (vitamin D3) 2,000 unit capsule 2,000 unit PO DAILY 07/21/18 [History Confirmed 04/24/19] cinnamon bark 500 mg capsule 1 cap PO QHS cap 07/21/18 [History Confirmed 04/24/19] finasteride 5 mg tablet 5 mg PO QHS 07/21/18 [History Confirmed 04/24/19] insulin degludec (U-100) 100 unit/mL (3 mL) subcutaneous pen 15 unit SC QHS ml 07/21/18 [History Confirmed 04/24/19] lamotrigine 200 mg tablet 200 mg PO BID 07/21/18 [History Confirmed 04/24/19] lisinopril 5 mg tablet 5 mg PO QHS 07/21/18 [History Confirmed 04/24/19] metformin ER 500 mg tablet,extended release 24 hr 500 mg PO BID tab 07/21/18 [History Confirmed 04/24/19] metoprolol succinate ER 25 mg tablet,extended release 24 hr 75 mg PO BID tab 07/21/18 [History Confirmed 04/24/19] ferrous sulfate 324 mg (65 mg iron) tablet,delayed release 324 mg PO QHS tab 12/25/18 [History Confirmed 04/24/19] insulin aspart (U-100) 100 unit/mL (3 mL) subcutaneous pen 8 units SC DAILY 62 Days #15 ml 12/25/18 [History Confirmed 04/24/19] Ascorbic Acid [Vitamin C] 500 mg PO QHS 01/06/19 [History Confirmed 04/24/19] Calcium Carb/Mag Ox/Zinc Sulf [Jvfkxkt-Bfrtfkmka-Gpqe Tablet] 1 ea PO QHS 01/06/19 [History Confirmed 04/24/19] Potassium Gluconate 550 mg PO QHS 01/06/19 [History Confirmed 04/24/19] Saw [place] Fruit [Saw [place]] 450 mg PO QHS 01/06/19 [History Confirmed 04/24/19] Tamsulosin HCl [Flomax] 0.4 mg PO QHS 01/06/19 [History Confirmed 04/24/19] omeprazole 20 mg capsule,delayed release 20 mg PO DAILY #60 cap 02/02/19 [Rx Confirmed 04/24/19] [facility] Medical History Iron deficiency anemia (Acute) Acid reflux (Acute) Chronic diastolic (congestive) heart failure (Chronic) Peripheral vascular occlusive disease (Chronic) Paroxysmal atrial fibrillation (Chronic) Hyperlipidemia (Chronic) Atherosclerosis of coronary artery of [place] heart without angina pectoris (Chronic) Essential (primary) hypertension (Chronic) Anemia (Chronic) BPH (benign prostatic hyperplasia) (Chronic) Chronic kidney disease (Chronic) Erectile dysfunction (Chronic) Multinodular goiter (Chronic) Partial seizure disorder (Chronic) Type 2 diabetes mellitus (Chronic) History of non-ST elevation myocardial infarction (NSTEMI) (Resolved 08/26/16) Syncope (Resolved) Surgical History History of coronary artery stent placement (Resolved 08/26/16) History of angioplasty of peripheral vessel (Resolved 06/28/14) History of cardioversion (Resolved 08/21/16) History of inguinal hernia repair (Resolved) History of transmetatarsal amputation of left foot (Resolved ~07/2016) Family History Mother Cancer Father Hypertension Social History (Updated 04/24/19 @ 10:11 by Shaquille Chamorro MD) Smoking Status: Former smoker quit date: 08/04/69 pack-years: 10 alcohol intake: current alcohol intake frequency: a few times a month substance use type: does not use HPI: Surgical H&P: Yes Patient is a 74 y/o M I am following for an update history and physical. Patient denies any recent hospitalizations or illnesses since his last visit. Patient denies any previous complications with anesthesia. He denies chest pain and shortness of breath. Patient's previous history per Dr. Chamorro: AGUSTO CASTILLO, is a 74 M who presents to the office today for surgical consultation regarding a very symptomatic right inguinal hernia. The patient is referred by his primary care physician Dr Jerry Dee and a written copy of my surgical consult recommendations will be returned to him. Very pleasant 74-year-old gentleman. On January 07, 2019 and performed a colonoscopy on him demonstrating diverticulosis. On this occasion he returns complaining of a focal burning bulging pain in the right groin. Both he and his state that one year ago at the [facility] that he had a left inguinal hernia repaired. He seems to be reasonably adamant that there was no mesh used but the incisions look like it was done laparoscopically. There is an odd transverse incision slightly below the umbilicus. Patient however states that he had significant difficult with postoperative urinary retention. Because of the patient's tremors he was not able to do straight catheterization and it sounds like he had a Post catheter in for almost a month. Apparently there was additional discussion that he would benefit from a TURP or bladder outlet obstruction surgical procedure but apparently that was never pursued because his urologist subsequently left and he did not have follow-up. He is not currently been seen by a local urologist. He is on finasteride and saw palmetto and tamsulosin. Unfortunately he complains of urinary urgency and urinary incontinence. I have received information from the [facility] with operative note dated April 17, 2018. The patient was felt to have a left inguinal hernia and underwent a laparoscopic left inguinal hernia repair with mesh. A indirect hernia was identified. States that a 2 cm incision was made inferior to the umbilicus and then the rectus sheath was incised the rectus muscle split the posterior sheath identified and a dissecting balloon was placed and was used to dissect the preperitoneal space. The left side was then dissected free and a large indirect hernia and cord lipoma were freed unfortunately a comment is made that the right side was inspected there was no hernia present there at that time. A Parietex left inguinal mesh was placed tacked to the pubis with his orbit tach. The anterior sheath was closed with 0 Vicryl. Urology note dated May 12, 2018. Patient apparently had a Post catheter removed went into acute retention and had to have a catheter replaced. Cloudy yellow urine greater than 1 cc was removed. Greater than 20 WBCs. The patient was initiated on cephalexin. ROS General General: Yes weight change and fatigue; no appetite, colon cancer, breast cancer or weakness HEENT HEENT: No difficulty swallowing, eye injury, eye surgery, swollen glands or hoarseness Endo Endocrine: Yes thyroid disease and diabetes mellitus; no thyroid cancer, Hair loss, heat intolerance or cold intolerance Skin Skin: No rash or changing moles Breast Breast: No left breast lump, right breast lump, nipple discharge, breast pain, abnormal mammogram, abnormal US or breast enlargement Musc Musculoskeletal: Yes arthritis; no back problems, rheumatoid arthritis, gout or joint pain Cardio Cardiovascular: Yes murmur, heart disease, atrial fibrillation, high blood pressure, heart attack and heart stent; no pacemaker, palpitations, shortness of breat with exertion or chest pain Psych Psychiatric: No depression, anxiety or hearing voices Resp Respiratory: No shortness of breath, No sleep apnea, No cough, No COPD, No asthma, No emphysema, No wheezing Gastro Gastrointestinal: No abdominal pain, No nausea or vomiting, No diarrhea, No constipation, No blood in stool, Yes acid reflux, No hemorrhoids, No ulcers, No gallbladder problem, No black,tarry stools Toney Hematologic: No blood thinners, No blood disorders, No bleeding, Yes anemia, No blood clots Neuro Neurologic: No weakness Exam Const General: cooperative, healthy appearing, comfortable Nutritional Appearance: average body habitus Orientation: alert, awake, oriented x3 HENMT Head: normal to inspection Eyes General: appearance normal, both eyes and all related structures Chest Breast Palpation: No nipple discharge Resp Effort & Inspection: normal respiratory effort Auscultation: clear to auscultation bilaterally Cardio Rate: regular rate Rhythm: regular rhythm Heart Sounds: murmur GI Other: Soft, partially reducible hernia at the umbilicus. Located at the umbilicus and slightly inferior to the right. Normal bowel sounds, not pulsatile or expansile Other: right inguinal hernia very tender to light palpation with him standing. Partially reducible. Testicles are descended. No tenderness or defect on the left Skin General: no rashes or lesions noted Neuro Cognition: normal cognition Extrem General: no calf tenderness bilaterally Psych Affect: normal affect Assessment & Plan Problems 1. Ventral incisional hernia without obstruction or gangrene K43.2 2. Inguinal hernia of right side without obstruction or gangrene K40.90 3. Urinary retention due to benign prostatic hyperplasia N40.1; R33.8 Plan: Dr. Chamorro will plan to perform a ventral incisional hernia repair and laparoscopic right inguinal hernia repair with mesh. Procedure details risks and benefits have been reviewed with the patient. Patient is aware that he may have to have a urinary catheter placed if he is unable to urinate. He will need to follow-up with Dr. Lopez in 2-3 days following the procedure to have the urinary catheter removed. Patient has had the opportunity to ask and have questions answered. Patient verbally understands and agrees with the plan.
--- NOTE | 2019-05-24 09:20 | HERN_PTH ---
PATIENT: AGUSTO CASTILLO LOC: [facility] U#:[id number] AGE/SX: 74/M ROOM: RE05/24/[address]: Dr. Shaquille Chamorro MD : 1945 BED: DIS: 05/24/2019 SPEC #: [id number] RECD: 05/24/19 15:55 STATUS: JOSETTE DONAL #: [id number] LYNN: 05/24/19 09:[address]: Shaquille Chamorro DEPT: SURGICAL PATHOLOGY RECD BY: Phyllis Mendoza ENTERED: 05/25/19 09:00 SP TYPE: Hernia OTHR DR: Dr. Jerry Dee MD Tissues: HERNIA Procedures: Surgery Specimen Level II HEADER OPERATION: Laparoscopic, inguinal hernia repair/ventral, incisional hernia PRE-OP DIAGNOSIS: Ventral incisional hernia without obstruction or gangrene K43.2, Inguinal hernia of right side without obstruction or gangrene K40.90 TISSUE SUBMITTED: Ventral and incisional hernia sac and contents MICROSCOPIC DIAGNOSIS Ventral and incisional hernia sac and contents: Fragments of fibroadipose and fibroconnective tissue, consistent with hernia sac. STEPHANIE:luis daniel 05/26/19 MICROSCOPIC DESCRIPTION Slides are reviewed. GROSS DESCRIPTION Received in fixative is one container labeled with the patient's name and designated ventral and incisional hernia sac and contents. The specimen consists of a piece of yellow adipose tissue measuring 3 x 2 x 1 cm. Sections reveal yellow adipose cut surfaces. No mass lesion is identified. Mortgage Operations Manager sections are submitted in one cassette. / Charlee 05/25/19 TC:5 CPT: 48990
--- NOTE | 2019-05-24 10:16 | PCM.DC.GS ---
Discharge Diet: Light diet - advance as tolerated - if you have questions about your diet instructions, please talk to you doctor. Discharge Activity: May Not Drive - for 3-5 days or while taking narcotic pain medicine. May shower in (days): 1 Lifting Restrictions: 10 pounds Call your doctor if your incision/area has: Continuous Slow Oozing, Sudden Increased Bleeding, Increased Pain/ Swelling, Increased Redness, Foul Smelling Discharge Call your doctor if you observe: Fever of 101 or Higher Suture Line Care: Avoid Pulling/Pushing, Avoid Pinching/Bending Additional Dressing/Incision Instructions:: Change or remove dressing in 4 days. Leave steri-strips in place for 1 week. Allergies/Adverse Reactions: Allergies carbamazepine [From Tegretol] Allergy (Verified 05/24/19 07:34) Rash Medications to take at Discharge aspirin 81 mg tablet,delayed release 81 mg PO DAILY 07/21/18 atorvastatin 80 mg tablet 80 mg PO QHS 07/21/18 cholecalciferol (vitamin D3) 2,000 unit capsule 2,000 unit PO DAILY 07/21/18 cinnamon bark 500 mg capsule 1 cap PO QHS cap 07/21/18 finasteride 5 mg tablet 5 mg PO QHS 07/21/18 lamotrigine 200 mg tablet 200 mg PO BID 07/21/18 lisinopril 5 mg tablet 5 mg PO QHS 07/21/18 metformin ER 500 mg tablet,extended release 24 hr 500 mg PO BID tab 07/21/18 metoprolol succinate ER 25 mg tablet,extended release 24 hr 75 mg PO BID tab 07/21/18 Ascorbic Acid [Vitamin C] 500 mg PO QHS 01/06/19 Calcium Carb/Mag Ox/Zinc Sulf [Xbrqesu-Prdmibamh-Dkxz Tablet] 1 ea PO QHS 01/06/19 Saw [place] Fruit [Saw [place]] 450 mg PO QHS 01/06/19 Tamsulosin HCl [Flomax] 0.4 mg PO QHS 01/06/19 Famotidine [Pepcid] 20 mg PO BID 05/17/19 Insulin Aspart [Novolog Flexpen] 8 units SUBCUT DAILY 05/17/19 Insulin Degludec [Tresiba] 12 unit SQ QHS 05/17/19 Hydrocodone Bitart/Apap 5-325 [[place] 5MG-325MG] 1 tablet PO Q6H PRN PRN 2 Days #6 tablet 05/24/19 The following prescriptions were given: Hydrocodone Bitart/Apap 5-325 [[place] 5MG-325MG] 1 tablet PO Q6H PRN PRN 2 Days #6 tablet PRN Reason: Pain Transmission Status: Received by [facility]/pharmacy #[id number] Primary Care Physician: Jerry Dee MD [Primary Care Provider] - Test Results: Test results from this visit will be discussed in further detail at your follow-up appointment, if applicable. Please Follow Up With: Shaquille Chamorro MD - [phone] When: Call to make an appointment to be seen in about 10 days.
[2019-05-24] MEDS: Cefazolin 2 GM in 0.9% Normal Saline 100 ML IV (10:23)
--- NOTE | 2019-05-24 11:27 | PCM.OPRPT ---
Problem List (1) Inguinal hernia of right side without obstruction or gangrene Status: Acute (2) Ventral incisional hernia without obstruction or gangrene Status: Acute Report of Operation Date of Procedure: 05/24/19 Pre-Operative Diagnosis: Symptomatic right inguinal hernia. Ventral incisional hernia inferior to the umbilicus Post-Operative Diagnosis: Indirect right inguinal hernia. Ventral incisional hernia inferior to umbilicus Surgery/Procedure Performed:: Laparoscopic right inguinal herniorrhaphy. Ventral incisional herniorrhaphy with ventralex mesh. Bard 3D Max lot number [id number]. Reference #[id number]. Expiry date 01/30/2024. Vent[address] ST hernia patch. Reference #[id number]. Lot number [id number]. Expiry date 12/29/2020. Secure strap lot number [id number]. Expiry date November 2020 Description of Surgical Findings:: Timeout and informed consent was obtained. 74-year-old gent was taken out from placement table underwent general endotracheal intubation anesthesia. The abdomen sterilely prepped draped. He received Ancef 2 g intravenously preoperatively. The previous incision made at [facility] in the infraumbilical area was transversely elliptically excised. Sharp dissection carried down through the subtenons tissue to identify the ventral incisional hernia located at that site. Circumferential dissection was performed the hernia sac and contents were removed and submitted as contents. A Joiner catheter was inserted. The abdomen was insufflated with CO2 to a pressure of 10 minutes mercury pressure. 5-minute trochars were placed under direct cessation of the right and left lower quadrants. A ileal nerve block was performed on the right under lap scopic visualization. The previous TEPP repair on the left was identified and intact. I incised the peritoneum superior lateral to the internal ring on the right and carried immediately. Unfortunately because of the previous repair performed at [facility] there were adhesions and obliteration of the medial portion of the preperitoneal plane. I had to work very diligently at sharply in place that bluntly dissecting this free to free the peritoneum and reveal access to the direct indirect and femoral space. Hernia sac was sizable and I carefully reduced the entire sac. The urinary bladder was somewhat adherent to the pubic tubercle likely from mesh from the previous repair on the left. Did not make any additional efforts to try to dissect to closely as the patient has significant urinary retention after that procedure and I did not want a wrist injury. I dissected free as much as I could clearly identify the indirect inguinal hernia at that opening the direct space and and to a certain extent the femoral area but the tissues in this area were rather indurated and I did not feel comfortable further that dissection. I used a Bard 3 DMax large mesh right-sided placed it in position it appeared to cover the defect nicely secured laterally superiorly and medially with secure strap for madhavi were used. Good positioning and securement was achieved. The peritoneum was then approximated to itself using secure strap and hemo-lock clips to completely obliterate access to the mesh. Good coverage was achieved. That appeared to sit in very nice position. I now remove the infraumbilical central trocar I placed a 6.4 cm ventralex mesh. I secured the tails in place with interrupted 0 Nurolon. The fascia was closed transversely with the same. I then perform laparoscopic inspection revealing that that mesh was in very nice position completely covering the defect area. Trochars removed under visualization the abdomen was allowed to deflate of the CO2 skin edges approximate interrupted 4 Monocryl subdermal stitches the tammy-incisional areas were anesthetized with 0.5% Marcaine throughout the procedure total 30 cc was used. Specimen includes a incisional hernia sac and contents. Drains none. Blood loss minimal. The patient was taken to the recovery area in satisfactory condition without apparent complication. Shaquille Chamorro M.D., F.A.C.S. Type of Anesthesia:: General Anesthesiologist: John Jones
[2019-05-24] MEDS: Bupivacaine Mpf 0.5% 30 ML VIAL (11:31)
[2019-05-24 11:48] VITALS: BP 141/84; BP 151/82; PULSE 81; RESP 16; TEMP 36.3; O2SAT 95
[2019-05-24 12:00] VITALS: BP 121/81; BP 141/84; PULSE 79; RESP 16; O2SAT 94
[2019-05-24 12:10] VITALS: BP 118/83; BP 141/84; PULSE 76; RESP 18; TEMP 36.4; O2SAT 94
[2019-05-24 13:07] VITALS: BP 133/85; BP 141/84; PULSE 87; RESP 16; TEMP 36.2; O2SAT 97
== END 2019-05-24 13:17 | disposition home or self-care (01) ==
LOC: SDC 07:07 → AC 07:07
PROVIDERS: Family Provider Family Medicine; PCP Family Medicine; Referring Provider Surgery; Visit Provider Surgery
PROC: (CPT 49650; principal; 2019-05-24 09:00)
DX: K40.90 Unilateral inguinal hernia, without obstruction or gangrene, not specified as recurrent (principal); K43.2 Incisional hernia without obstruction or gangrene; R33.8 Other retention of urine; N40.1 Benign prostatic hyperplasia with lower urinary tract symptoms; D50.9 Iron deficiency anemia, unspecified; K21.9 Gastro-esophageal reflux disease without esophagitis; I13.0 Hypertensive heart and chronic kidney disease with heart failure and stage 1 through stage 4 chronic kidney disease, or unspecified chronic kidney disease; E11.22 Type 2 diabetes mellitus with diabetic chronic kidney disease; N18.9 Chronic kidney disease, unspecified; I50.32 Chronic diastolic (congestive) heart failure; I48.0 Paroxysmal atrial fibrillation; E78.5 Hyperlipidemia, unspecified; I25.10 Atherosclerotic heart disease of native coronary artery without angina pectoris; E04.2 Nontoxic multinodular goiter; I25.2 Old myocardial infarction; Z87.891 Personal history of nicotine dependence; Z79.4 Long term (current) use of insulin; Z79.82 Long term (current) use of aspirin; Z79.899 Other long term (current) drug therapy
CPT/HCPCS: 49560; 49650; 36415; 80048; 82962; 85027; 88302; 93005; C1781; J7120; J2405

== ENCOUNTER 2019-05-25 15:33 | Observation (INO) | payer MEDICARE, OTHER, SELFPAY ==
[2019-05-24 07:36] VITALS: BMI 25.2
[2019-05-25] VITALS (7 sets, daily range): BP systolic 112–133; BP diastolic 65–69; PULSE 85–134; RESP 14–16; TEMP 36.6–36.8; O2SAT 95–97; BMI 24.9; BMI 25.0
--- NOTE | 2019-05-25 15:41 | RAD_ITS ---
STUDY: X-RAY - ABDOMEN/PELVIS REASON FOR EXAM: Male, 74 years old. Recent right hernia surgery, abdominal pain, distention nausea and vomiting TECHNIQUE: AP supine and upright views of the abdomen and pelvis. COMPARISON: None. FINDINGS: Normal visualized lung bases. There is a moderate amount of colonic stool. There is no demonstrated free abdominal air. The visualized liver, spleen and kidneys are grossly normal in size and morphology. Normal soft tissue structures. Normal visualized osseous structures. RAD/Abd Inc Decub and/or Erect IMPRESSION: Moderate amount of colonic stool consistent with constipation. There is no evidence of obstruction or free intraperitoneal air. Electronically Signed: aRfa Garcia MD at 16:48 EDT , Service support ,
--- NOTE | 2019-05-25 15:53 | PCM.HP.STD ---
Problem List (1) Post-operative nausea and vomiting Status: Acute (2) Abdominal pain Status: Acute (3) Urinary retention Status: Acute (4) Urinary retention due to benign prostatic hyperplasia Status: Acute (5) Inguinal hernia of right side without obstruction or gangrene Status: Acute (6) Ventral incisional hernia without obstruction or gangrene Status: Acute History of Present Illness Date of Admission: 05/25/19 Chief Complaint: Post-operative nausea, vomiting. Abdominal pain. Urinary retention. The patient is a 74 year old M who contacted our office this morning noting nausea, no flatus, and not urinating. Dr. Chamorro had performed a laparoscopic ventral incisional and right inguinal hernia repair with mesh on 05/24/2019. Patient tolerated the procedure well. He had a previous left inguinal hernia repair which was complicated by urinary retention post-operatively. Patient was able to urinate around 300 cc prior to discharge yesterday. He did have a bladder scan which measured 3 cc residual. Patient tried 2 stool softeners, a bottle of magnesium citrate as well as Gas-X at home without any success of flatus or bowel movement. Patient stated he had vomited last night after eating 3-4 bites of a sandwich. Per patient's he had projectile vomiting. Patient took a Compazine last night that his had. He took another tablet today. Patient continued with nausea and vomiting 3 times today. Patient has tried 1/2 cup broth today which he vomited back up. Patient then notes abdominal pain due to the vomiting. He is concerned that he may have disrupted the repair from vomiting. Patient notes his abdominal pain is a 12 out of 10 on the pain scale. Patient has only had 1 tablet of [place] since the procedure. Patient was scheduled to follow-up with Dr. Lopez to have a bladder scan and possible catheter placement. Upon leaving our office, the patient began to vomit. Past Medical History Past Medical History (Chronic Problems): Chronic Problems (Last Reviewed 04/24/19 @ 07:34 by Ginny Ashby) Chronic diastolic (congestive) heart failure (Chronic) Peripheral vascular occlusive disease (Chronic) Left above and below the knee popliteal and tibioperoneal trunk atherectomy and angioplasty 06/28/14 Left below the knee popliteal atherectomy w/ angioplasty 12/29/13 Paroxysmal atrial fibrillation (Chronic) Hyperlipidemia (Chronic) Atherosclerosis of coronary artery of [place] heart without angina pectoris (Chronic) PCI-ROSAS-Mid LAD w/ 2.5 x 30 mm and 2.5 x 18 mm w/ Resolute Rx Stent 08/26/16 Essential (primary) hypertension (Chronic) Medical History: Medical History (Last Reviewed 05/25/19 @ 16:08 by Jen Lazo PA-C) Urinary retention due to benign prostatic hyperplasia (Acute) N40.1, R33.8 Inguinal hernia of right side without obstruction or gangrene (Acute) K40.90 Ventral incisional hernia without obstruction or gangrene (Acute) K43.2 Iron deficiency anemia (Acute) D50.9 Acid reflux (Acute) K21.9 Chronic diastolic (congestive) heart failure (Chronic) I50.32 Peripheral vascular occlusive disease (Chronic) I73.9 Left above and below the knee popliteal and tibioperoneal trunk atherectomy and angioplasty 06/28/14 Left below the knee popliteal atherectomy w/ angioplasty 12/29/13 Paroxysmal atrial fibrillation (Chronic) I48.0 Hyperlipidemia (Chronic) E78.5 Atherosclerosis of coronary artery of [place] heart without angina pectoris (Chronic) I25.10 PCI-ROSAS-Mid LAD w/ 2.5 x 30 mm and 2.5 x 18 mm w/ Resolute Rx Stent 08/26/16 Essential (primary) hypertension (Chronic) I10 Anemia D64.9 BPH (benign prostatic hyperplasia) N40.0 Chronic kidney disease N18.9 Erectile dysfunction N52.9 Multinodular goiter E04.2 Partial seizure disorder G40.109 Type 2 diabetes mellitus E11.9 History of non-ST elevation myocardial infarction (NSTEMI) Onset Date: 08/26/16 I25.2 Syncope R55 Allergies carbamazepine [From Tegretol] Allergy (Verified 05/25/19 14:29) Rash Home Medications: Ambulatory Orders Medication Instructions Recorded aspirin 81 mg tablet,delayed 81 mg PO DAILY 07/21/18 release atorvastatin 80 mg tablet 80 mg PO QHS 07/21/18 cholecalciferol (vitamin D3) 2,000 2,000 unit PO DAILY 07/21/18 unit capsule cinnamon bark 500 mg capsule 1 cap PO QHS cap 07/21/18 finasteride 5 mg tablet 5 mg PO QHS 07/21/18 lamotrigine 200 mg tablet 200 mg PO BID 07/21/18 lisinopril 5 mg tablet 5 mg PO QHS 07/21/18 metformin ER 500 mg 500 mg PO BID tab 07/21/18 tablet,extended release 24 hr metoprolol succinate ER 25 mg 75 mg PO BID tab 07/21/18 tablet,extended release 24 hr Ascorbic Acid [Vitamin C] 500 mg PO QHS 01/06/19 Calcium Carb/Mag Ox/Zinc Sulf 1 ea PO QHS 01/06/19 [Nokoxrz-Hnfypnpzb-Fbgv Tablet] Saw [place] Fruit [Saw [place]] 450 mg PO QHS 01/06/19 Tamsulosin HCl [Flomax] 0.4 mg PO QHS 01/06/19 Famotidine [Pepcid] 20 mg PO BID 05/17/19 Insulin Aspart [Novolog Flexpen] 8 units SUBCUT DAILY 05/17/19 Insulin Degludec [Tresiba] 12 unit SQ QHS 05/17/19 Hydrocodone Bitart/Apap 5-325 1 tab PO Q6H PRN PRN 2 Days #6 tab 05/24/19 [[place] 5MG-325MG] Surgical History: Surgical History (Last Reviewed 05/25/19 @ 16:08 by Jen Lazo PA-C) History of coronary artery stent placement (Resolved) Onset Date: 08/26/16 Z95.5 PCI-ROSAS-Mid LAD w/ 2.5 x 30 mm and 2.5 x 18 mm w/ Resolute Rx Stent 08/26/16 History of angioplasty of peripheral vessel Onset Date: 06/28/14 Z98.62 Left above and below the knee popliteal and tibioperoneal trunk atherectomy and angioplasty 06/28/14 Left below the knee popliteal atherectomy w/ angioplasty 12/29/13 History of cardioversion Onset Date: 08/21/16 Z98.890 History of inguinal hernia repair Z98.890, Z87.19 History of transmetatarsal amputation of left foot Onset Date: ~07/2016 Z89.432 Surgical History: herniorrhaphy - Ventral and right inguinal hernia repair 05/24/19 Psychiatric History: No pertinent psych hx Lives: Spouse/ Significant Other - *Family History Maternal Family History: Family History (Last Reviewed 05/25/19 @ 16:09 by Jen Lazo PA-C) Mother Cancer Father Hypertension Paternal Family History: Family History (Last Reviewed 05/25/19 @ 16:09 by Jen Lazo PA-C) Mother Cancer Father Hypertension Review of Systems Constitutional: Reports: Anorexia, Weakness, Fatigue HEENT: Denies: Head Aches, Sinus Congestion, Sinus Drainage Cardiovascular: Denies: Chest Pain, Palpitations Respiratory: Denies: Cough, Shortness of breath at rest, Sputum production Gastrointestinal: Reports: Abdominal Pain, Constipation, Nausea, Vomiting Genitourinary: Reports: Retention Musculoskeletal: Denies: Joint Pain, Joint Tenderness Skin: Denies: Rash, Wounds Neurological: Denies: Numbness, Tingling, Focal weakness Psychiatric: Denies: Anxiety, Depression, Homicidal Ideations, Suicidal Ideations Hematologic/ Lymphatic: Denies: Easy Bruising, Easy Bleeding VTE Information - Inpt Only VTE Present on Admission: Yes Patient Problems: Active and Suspected Problems (Last Reviewed 04/24/19 @ 07:34 by Ginny Ashby) Post-operative nausea and vomiting (Acute) Abdominal pain (Acute) Urinary retention (Acute) - Physical Exam Vitals/I&O's: Body Mass Index (BMI) 25.2 General: Alert, Oriented x3, Cooperative HEENT: Atraumatic, PERRLA, EOMI, Normocephalic Neck: Supple, No JVD, Negative Carotid Bruits Lungs: Clear to auscultation, Normal air movement Cardiovascular: Regular rate, No murmurs Abdomen: Soft, Hypoactive Bowel Sounds, Distended, Tender - Generalized, - - Incisions c/d/i. No erythema or infection noted Extremities: No edema, Capillary Refill Less than 3 Seconds Skin: No rashes, No breakdown Musculoskeletal: No Tenderness to Palpation of Joints or Extremities Neurological: Neuro grossly intact Psych/Mental Status: Normal Affect, Appropriate Current Medications Acetaminophen (Tylenol) 650 mg PO Q6H PRN PRN PRN Reason: Mild Pain (1-3)/Temp > 100.7 F Hydrocodone Bitart/Acetaminophen ([place] 5mg-325mg) 1 tablet PO Q6H PRN PRN PRN Reason: Moderate Pain (4-6/10) Atorvastatin Calcium (Lipitor) 80 mg PO QHS [place] Dextrose (D50w Syringe) 0 gm IV X1 PRN; Protocol PRN Reason: Hypoglycemia Enoxaparin Sodium (Lovenox) 40 mg SC DAILY@1000 [place] Famotidine (Pepcid) 20 mg PO BID REPLACED BY [facility] Finasteride (Proscar) 5 mg PO QHS REPLACED BY [facility] Glucagon () 1 mg IM .X1 PRN PRN Reason: Hypoglycemia Sodium Chloride () 1,000 mls @ 70 mls/hr IV .[id number] REPLACED BY [facility] Insulin Glargine (Lantus (Bkc)) 12 units SC QHS REPLACED BY [facility] Lamotrigine (Lamictal) 200 mg PO BID REPLACED BY [facility] Lisinopril (Zestril) 5 mg PO QHS REPLACED BY [facility] Metformin HCl (Glucophage Xr) 500 mg PO BIDCM REPLACED BY [facility] Metoprolol Succinate (Toprol Xl (Beta Luz)) 75 mg PO BID REPLACED BY [facility] Morphine Sulfate () 4 mg IV Q3H PRN PRN PRN Reason: Severe pain (-05/13) Non-Formulary Medication (Insulin Aspart [Novolog Flexpen]) 8 units SC DAILY REPLACED BY [facility] Ondansetron HCl (Zofran) 4 mg IV Q8H PRN PRN PRN Reason: NAUSEA/VOMITING Prochlorperazine Edisylate (Compazine Iv) 5 mg IV Q4H PRN PRN PRN Reason: Breakthrough nausea/vomiting Tamsulosin HCl (Flomax) 0.4 mg PO QHS REPLACED BY [facility] Throat Lozenges (Cepacol Sore Throat Lozenge) 1 lozenge MUCOUS MEM Q2H PRN PRN PRN Reason: Sore throat or cough Assessment/Plan All Active Problems (Last Reviewed 04/24/19 @ 07:34 by Ginny Ashby) Post-operative nausea and vomiting (Acute) Abdominal pain (Acute) Urinary retention (Acute) Urinary retention due to benign prostatic hyperplasia (Acute) Inguinal hernia of right side without obstruction or gangrene (Acute) Ventral incisional hernia without obstruction or gangrene (Acute) Iron deficiency anemia (Acute) Acid reflux (Acute) Pre-syncope (Acute) Syncope (Resolved) History of coronary artery stent placement (Resolved 08/26/16) I am following this patient in conjunction with Dr. Chamorro Impression: Post-operative nausea/vomiting/abdominal pain, likely etiology ileus. Probable urinary retention. Plan: Patient was evaluated in conjunction with Dr. Chamorro. Plan to admit patient from our office to PCU. STAT CBC and BMP. Bladder scan and Post placement. Order KUB. May have sips of clears. Closely monitor blood glucose. Recommend incentive spirometer and ambulation. Minimal narcotic use. Dulcolax suppository. Consult Dr. Lopez for urinary retention. Patient and his have had the opportunity to ask and have questions answered. Patient verbally understands and agrees with the plan. Code Visit Inpatient E&M: [id number] [facility] H[facility] L1
[2019-05-25 16:13] LABS: Absolute Lymphocyte Count 1.17 X10^3/uL (0.83-4.51); Absolute Neutrophil Count 8.6 X10^3/uL (2.0-7.7); Basophil# 0.03 X10^3/uL; Basophil% 0.3 % (0-1); Eosinophils% 0.9 % (0-5); Hematocrit 43.7 % (40-54); Hemoglobin 14.7 g/dL (13.0-16.5); Lymphocyte # 1.17 X10^3/ul (4.0); Lymphocyte % 10.7 % (19-41); Mean Corp Hgb Conc 33.6 g/dL (32-36); Mean Corpuscular Hgb 30.5 pg (27.0-32.0); Mean Corpuscular Volume 90.7 fL (80-94); Mean Platelet Vol. 9.1 fl (6.2-12.0); Monocyte# 0.96 X10^3/uL; Monocyte% 8.8 % (0-10); NRBC Flagged by Analyzer 0 % (0-5); Neutrophil % 78.9 % (47-70); Platelet Count 235 K/mm3 (150-450); RBC Distribution Width CV 12.5 % (11.6-14.6); RBC Distribution Width SD 41.4 fl (35.1-43.9); Red Blood Count 4.82 M/mm3 (4.6-6.2); White Blood Count 10.9 K/mm3 (4.4-11.0)
[2019-05-25] MEDS: 0.9% Normal Saline 1,000 ML 70 ML IV (17:10)
[2019-05-25 17:11] LABS: Bedside Glucose 219 mg/dL (70-110)
[2019-05-25 17:31] LABS: Anion Gap 8 (5-15); BUN 24 mg/dL (7-18); BUN/Creat Ratio 16.7 RATIO (10-20); Calcium,Total 9.3 mg/dL (8.5-10.1); Chloride 93 mmol/L (98-107); Creatinine, Serum 1.44 mg/dL (0.70-1.30); EST Glomerular Filtration Rate 51 mL/min (>60); Est Glom Filt Rate - Afr Amer 61 mL/min (>60); Estimated Creatinine Clearance 45.06 ml/min; Glucose 235 mg/dL (74-106); Potassium 4.9 mmol/L (3.5-5.1); Sodium Level 126 mmol/L (136-145)
[2019-05-25] MEDS: Insulin Lispro 100 UNIT/ML INSULN.PEN SC (17:48)
[2019-05-25] MEDS: metFORMIN (XR) 500 MG Tablet PO (17:49)
[2019-05-25] MEDS: Bisacodyl 10 MG Suppository RECTAL (17:52)
[2019-05-25] MEDS: BENZOCAINE/MENTHOL 1 LOZENGE MUCOUS MEM (17:52)
--- NOTE | 2019-05-25 18:05 | NURSING ---
1545-PT TO ROOM VIA WC FROM OFFICE. PT TO BED AND BLADDER SCANNED FOR >999. 16FOLEY INSERTED WITH IMMEDIATE RETURN 1000CC AND PT WITH MUCH RELIEF REPORTED. IV STARTED TO LT AC WITH LABS SENT. ORIENTED TO BED,PHONE AND CALL LIGHT. PT TO XRAY FOR KUB VIA BED
--- NOTE | 2019-05-25 19:33 | CON.PCM_ITS ---
Reason for Consult Date of Consultation: 05/25/19 Reason for Consultation: Postop urinary retention History of Present Illness: The patient is a 74 year old male with a history of a large prostate he is on Flomax and Proscar maximal medical therapy. He has a history of postop urinary retention, last year he had a hernia repair and he required 6 weeks before he could urinate spontaneously. Not surprisingly he underwent a ventral hernia repair and another inguinal hernia repair and is now developed another episode of postop urinary retention which is consistent with his history. He was admitted to the hospital with severe urinary retention and ileus and nausea vomiting and not feeling well. Now that the catheters in place has been feeling better. Past Medical History Past Medical History (Chronic Problems): Chronic Problems (Last Reviewed 05/25/19 @ 16:08 by Jen Lazo PA-C) Chronic diastolic (congestive) heart failure (Chronic) Peripheral vascular occlusive disease (Chronic) Left above and below the knee popliteal and tibioperoneal trunk atherectomy and angioplasty 06/28/14 Left below the knee popliteal atherectomy w/ angioplasty 12/29/13 Paroxysmal atrial fibrillation (Chronic) Hyperlipidemia (Chronic) Atherosclerosis of coronary artery of [place] heart without angina pectoris (Chronic) PCI-ROSAS-Mid LAD w/ 2.5 x 30 mm and 2.5 x 18 mm w/ Resolute Rx Stent 08/26/16 Essential (primary) hypertension (Chronic) Medical History: Medical History (Last Reviewed 05/25/19 @ 16:08 by Jen Lazo PA-C) Urinary retention due to benign prostatic hyperplasia (Acute) N40.1, R33.8 Inguinal hernia of right side without obstruction or gangrene (Acute) K40.90 Ventral incisional hernia without obstruction or gangrene (Acute) K43.2 Iron deficiency anemia (Acute) D50.9 Acid reflux (Acute) K21.9 Chronic diastolic (congestive) heart failure (Chronic) I50.32 Peripheral vascular occlusive disease (Chronic) I73.9 Left above and below the knee popliteal and tibioperoneal trunk atherectomy and angioplasty 06/28/14 Left below the knee popliteal atherectomy w/ angioplasty 12/29/13 Paroxysmal atrial fibrillation (Chronic) I48.0 Hyperlipidemia (Chronic) E78.5 Atherosclerosis of coronary artery of [place] heart without angina pectoris (Chronic) I25.10 PCI-ROSAS-Mid LAD w/ 2.5 x 30 mm and 2.5 x 18 mm w/ Resolute Rx Stent 08/26/16 Essential (primary) hypertension (Chronic) I10 Anemia D64.9 BPH (benign prostatic hyperplasia) N40.0 Chronic kidney disease N18.9 Erectile dysfunction N52.9 Multinodular goiter E04.2 Partial seizure disorder G40.109 Type 2 diabetes mellitus E11.9 History of non-ST elevation myocardial infarction (NSTEMI) Onset Date: 08/26/16 I25.2 Syncope R55 Allergies carbamazepine [From Tegretol] Allergy (Verified 05/25/19 14:29) Rash Home Medications: Ambulatory Orders Medication Instructions Recorded aspirin 81 mg tablet,delayed 81 mg PO DAILY 07/21/18 release atorvastatin 80 mg tablet 80 mg PO QHS 07/21/18 cholecalciferol (vitamin D3) 2,000 2,000 unit PO DAILY 07/21/18 unit capsule cinnamon bark 500 mg capsule 1 cap PO QHS cap 07/21/18 finasteride 5 mg tablet 5 mg PO QHS 07/21/18 lamotrigine 200 mg tablet 200 mg PO BID 07/21/18 lisinopril 5 mg tablet 5 mg PO QHS 07/21/18 metformin ER 500 mg 500 mg PO BID tab 07/21/18 tablet,extended release 24 hr Ascorbic Acid [Vitamin C] 1,000 mg PO QHS 01/06/19 Calcium Carb/Mag Ox/Zinc Sulf 1 ea PO QHS 01/06/19 [Sydqfql-Lqtfjkvoo-Bvlb Tablet] Saw [place] Fruit [Saw [place]] 450 mg PO QHS 01/06/19 Tamsulosin HCl [Flomax] 0.4 mg PO QHS 01/06/19 Famotidine [Pepcid] 20 mg PO BID 05/17/19 Insulin Aspart [Novolog Flexpen] 8 units SUBCUT DAILY 05/17/19 Insulin Degludec [Tresiba] 12 unit SQ QHS 05/17/19 Hydrocodone Bitart/Apap 5-325 1 tab PO Q6H PRN PRN 2 Days #6 tab 05/24/19 [[place] 5MG-325MG] Metoprolol Tartrate 75 mg PO BID 05/25/19 Potassium (Otc) [Potassium Otc] 99 mg PO QHS 05/25/19 Surgical History: Surgical History (Last Reviewed 05/25/19 @ 16:08 by Jen Lazo PA-C) History of coronary artery stent placement (Resolved) Onset Date: 08/26/16 Z95.5 PCI-ROSAS-Mid LAD w/ 2.5 x 30 mm and 2.5 x 18 mm w/ Resolute Rx Stent 08/26/16 History of angioplasty of peripheral vessel Onset Date: 06/28/14 Z98.62 Left above and below the knee popliteal and tibioperoneal trunk atherectomy and angioplasty 06/28/14 Left below the knee popliteal atherectomy w/ angioplasty 12/29/13 History of cardioversion Onset Date: 08/21/16 Z98.890 History of inguinal hernia repair Z98.890, Z87.19 History of transmetatarsal amputation of left foot Onset Date: ~07/2016 Z89.432 Surgical History: herniorrhaphy - Ventral and right inguinal hernia repair 05/24/19 Psychiatric History: No pertinent psych hx Lives: Spouse/ Significant Other Smoking Status: Former smoker - *Family History Maternal Family History: Family History (Last Reviewed 05/25/19 @ 16:09 by Jen Lazo PA-C) Mother Cancer Father Hypertension Paternal Family History: Family History (Last Reviewed 05/25/19 @ 16:09 by Jen Lazo PA-C) Mother Cancer Father Hypertension Review of Systems Constitutional: Denies: Chills, Fever, Weight Change HEENT: Denies: Head Aches, Sinus Congestion, Sinus Drainage Cardiovascular: Denies: Chest Pain, Palpitations Respiratory: Denies: Cough, Shortness of breath at rest, Sputum production Gastrointestinal: Denies: Abdominal Pain, Nausea, Vomiting Genitourinary: Reports: Dysuria, Frequency, Retention, Urgency Musculoskeletal: Denies: Joint Pain, Joint Tenderness Skin: Denies: Rash, Wounds Neurological: Denies: Numbness, Tingling, Focal weakness Psychiatric: Denies: Anxiety, Depression, Homicidal Ideations, Suicidal Ideations Hematologic/ Lymphatic: Denies: Easy Bruising, Easy Bleeding Physical Exam - Physical Exam Vital Signs Temp 97.9 F 05/25/19 16:41 Pulse 85 05/25/19 18:58 Resp 16 05/25/19 16:41 BP 133/69 H 05/25/19 16:41 Pulse Ox 95 05/25/19 18:10 Intake & Output 05/23/19 05/24/19 05/25/19 23:59 23:59 23:59 Weight: 78.9 kg General: Alert, Oriented x3 HEENT: Atraumatic Oral: Moist Mucosa Neck: Supple Lungs: Normal air movement Cardiovascular: Regular rate Abdomen: Soft, Obese Laboratory Tests Past 24 Hrs 05/25/19 05/25/19 16:05 16:05 WBC 10.9 RBC 4.82 Hgb 14.7 Hct 43.7 MCV 90.7 MCH 30.5 MCHC 33.6 RDW Std Deviation 41.4 RDW Coeff of [place] 12.5 Plt Count 235 MPV 9.1 Immature Gran % (Auto) 0.400 Neut % (Auto) 78.9 H Lymph % (Auto) 10.7 L [place] % (Auto) 8.8 Eos % (Auto) 0.9 Baso % (Auto) 0.3 Absolute Neuts (auto) 8.6 H Absolute Lymphs (auto) 1.17 Nucleated RBC % 0 Sodium 126 L Potassium 4.9 Chloride 93 L Carbon Dioxide 25.0 Anion Gap 8 BUN 24 H Creatinine 1.44 H Estim Creat Clear Calc 45.06 Est GFR (MDRD) Af Amer 61 Est GFR (MDRD) Non-Af 51 L BUN/Creatinine Ratio 16.7 Glucose 235 H Calcium 9.3 Assessment/Plan All Active Problems (Last Reviewed 05/25/19 @ 16:08 by Jen Lazo PA-C) Post-operative nausea and vomiting (Acute) Abdominal pain (Acute) Urinary retention (Acute) Urinary retention due to benign prostatic hyperplasia (Acute) Inguinal hernia of right side without obstruction or gangrene (Acute) Ventral incisional hernia without obstruction or gangrene (Acute) Iron deficiency anemia (Acute) Acid reflux (Acute) Pre-syncope (Acute) Syncope (Resolved) History of coronary artery stent placement (Resolved 08/26/16) 74-year-old male with postop urinary retention on maximal medical therapy catheters in place urine is nice and clear once his ileus and nausea vomiting resolved I think he needs to go home with a catheter he can see us next week for another voiding trial but I spoke to the patient that if it took him 6 weeks to recover last time he may just benefit from prostate surgery. Plan to see him next week for another voiding trial if he fails that we will probably get a plan for cystoscopy to evaluate the prosthetic channel and decide what surgical approach is best for his prostate. For now he can go home with a catheter if you have any questions please give me a call.
[2019-05-25] MEDS: lamoTRIgine 100 MG Tablet 200 MG PO (21:41)
[2019-05-25] MEDS: Tamsulosin HCl 0.4 MG Capsule PO (21:41)
[2019-05-25] MEDS: Atorvastatin Calcium 80 MG Tablet PO (21:41)
[2019-05-25] MEDS: Famotidine 20 MG Tablet PO (21:41)
[2019-05-25] MEDS: Finasteride 5 MG Tablet PO (21:42)
[2019-05-25] MEDS: Metoprolol(XL)Succ 25 MG Tablet 75 MG PO (21:42)
[2019-05-25] MEDS: Lisinopril 5 MG Tablet PO (21:42)
--- NOTE | 2019-05-25 21:44 | NURSING ---
Encouraged and visualized patient use of IS. Aide assisted patient for short walk to back hallway, HR elevated to 139 this time, decreased to 100 when back to bed.
[2019-05-25 21:45] LABS: Bedside Glucose 127 mg/dL (70-110)
[2019-05-26 03:01] VITALS: PULSE 96
[2019-05-26 03:33] VITALS: BP 113/81; PULSE 104; RESP 18; TEMP 36.6; O2SAT 98
--- NOTE | 2019-05-26 03:40 | NURSING ---
Patient had loose BM and reports passing flatus at this time.
--- NOTE | 2019-05-26 06:05 | PCM.PN.SRG ---
Patient Problems: Active and Suspected Problems (Last Reviewed 05/25/19 @ 16:08 by Jen Lazo PA-C) Post-operative nausea and vomiting (Acute) Abdominal pain (Acute) Urinary retention (Acute) Subjective: Pt states no pain, no nausea, no vomiting, postive flatus All symptoms resolved as soon as he was catherized for 1000cc urine - Physical Exam Vitals/I&O's: Vital Signs Temp Pulse Resp BP Pulse Ox 97.8 F 104 H 18 113/81 H 98 05/26/19 03:33 05/26/19 03:33 05/26/19 03:33 05/26/19 03:33 05/26/19 03:33 Oxygen Delivery Method Room Air Weight: 173 lb 15.115 oz Body Mass Index (BMI) 24.9 Intake and Output for Last 24 Hours 05/24/19 05/25/19 05/26/19 23:59 23:59 23:59 Intake Total 712.5 / 712.5 Output Total 1800 / 1800 Balance -1087.5 / -1087.5 Abdomen: Bowel Sounds Present, Soft, Non Tender Laboratory Results 05/25/19 16:05: WBC 10.9, RBC 4.82, Hgb 14.7, Hct 43.7, MCV 90.7, MCH 30.5, MCHC 33.6, RDW Std Deviation 41.4, RDW Coeff of [place] 12.5, Plt Count 235, MPV 9.1, Immature Gran % (Auto) 0.400, Neut % (Auto) 78.9 H, Lymph % (Auto) 10.7 L, [place] % (Auto) 8.8, Eos % (Auto) 0.9, Baso % (Auto) 0.3, Absolute Neuts (auto) 8.6 H, Absolute Lymphs (auto) 1.17, Nucleated RBC % 0 05/25/19 16:05: Sodium 126 L, Potassium 4.9, Chloride 93 L, Carbon Dioxide 25.0, Anion Gap 8, BUN 24 H, Creatinine 1.44 H, Estim Creat Clear Calc 45.06, Est GFR (MDRD) Af Amer 61, Est GFR (MDRD) Non-Af 51 L, BUN/Creatinine Ratio 16.7, Glucose 235 H, Calcium 9.3 05/25/19 16:59: POC Glucose 219 H 05/25/19 21:35: POC Glucose 127 H Current Medications Acetaminophen (Tylenol) 650 mg PO Q6H PRN PRN PRN Reason: Mild Pain (1-3)/Temp > 100.7 F Hydrocodone Bitart/Acetaminophen ([place] 5mg-325mg) 1 tablet PO Q6H PRN PRN PRN Reason: Moderate Pain (4-6/10) Atorvastatin Calcium (Lipitor) 80 mg PO QHS [facility] Last Admin: 05/25/19 21:41 Dose: 80 mg Documented by: Dextrose (D50w Syringe) 0 gm IV X1 PRN; Protocol PRN Reason: Hypoglycemia Enoxaparin Sodium (Lovenox) 40 mg SC DAILY@1000 [place] Famotidine (Pepcid) 20 mg PO BID [facility] Last Admin: 05/25/19 21:41 Dose: 20 mg Documented by: Finasteride (Proscar) 5 mg PO QHS [facility] Last Admin: 05/25/19 21:42 Dose: 5 mg Documented by: Glucagon () 1 mg IM .X1 PRN PRN Reason: Hypoglycemia Sodium Chloride () 1,000 mls @ 70 mls/hr IV .[id number] [facility] Last Infusion: 05/25/19 23:55 Dose: 70 mls/hr Documented by: Insulin Human Lispro (Humalog Kwikpen (Bkc)) 0 unit SC [facility]; Protocol Last Admin: 05/25/19 21:38 Dose: Not Given Documented by: Lamotrigine (Lamictal) 200 mg PO BID [facility] Last Admin: 05/25/19 21:41 Dose: 200 mg Documented by: Lisinopril (Zestril) 5 mg PO QHS [facility] Last Admin: 05/25/19 21:42 Dose: 5 mg Documented by: Met[facility]) [facility] Last Admin: 05/25/19 17:49 Dose: 500 mg Documented by: Metoprolol Succinate (Toprol Xl (Beta Luz)) 75 mg PO BID [facility] Last Admin: 05/25/19 21:42 Dose: 75 mg Documented by: Morphine Sulfate () 4 mg IV Q3H PRN PRN PRN Reason: Severe pain (7-10/10) Ondansetron HCl (Zofran) 4 mg IV Q8H PRN PRN PRN Reason: NAUSEA/VOMITING Prochlorperazine Edisylate (Compazine Iv) 5 mg IV Q4H PRN PRN PRN Reason: Breakthrough nausea/vomiting Tamsulosin HCl (Flomax) 0.4 mg PO QHS [facility] Last Admin: 05/25/19 21:41 Dose: 0.4 mg Documented by: Throat Lozenges (Cepacol Sore Throat Lozenge) 1 lozenge MUCOUS MEM Q2H PRN PRN PRN Reason: Sore throat or cough Last Admin: 05/25/19 17:52 Dose: 1 lozenge Documented by: Medical Necessity - Tobacco Use Smoking Status: Former smoker Assessment/Plan All Active Problems (Last Reviewed 05/25/19 @ 16:08 by Jen Lazo PA-C) Post-operative nausea and vomiting (Acute) Abdominal pain (Acute) Urinary retention (Acute) Urinary retention due to benign prostatic hyperplasia (Acute) Inguinal hernia of right side without obstruction or gangrene (Acute) Ventral incisional hernia without obstruction or gangrene (Acute) Iron deficiency anemia (Acute) Acid reflux (Acute) Pre-syncope (Acute) Syncope (Resolved) History of coronary artery stent placement (Resolved 08/26/16) Acute urinary retention complicated by chronic urinary outlet obstruction causing symptoms of severe pain, nausea and vomiting. No evidence for hernia surgery complication Will discharge pt for f/u with Dr Lopez
--- NOTE | 2019-05-26 06:08 | DCINST_ITS ---
Discharge Diet: Light diet - advance as tolerated - if you have questions about your diet instructions, please talk to you doctor., 1600 Calorie Control Diet Discharge Activity: May Not Drive - for 3-5 days or while taking narcotic pain medicine. May shower in (days): 1 Lifting Restrictions: 10 pounds Call your doctor if your incision/area has: Continuous Slow Oozing, Sudden Increased Bleeding, Increased Pain/ Swelling, Increased Redness, Foul Smelling Discharge Call your doctor if you observe: Fever of 101 or Higher Suture Line Care: Avoid Pulling/Pushing, Avoid Pinching/Bending Additional Dressing/Incision Instructions:: Change or remove dressing in 4 days. Leave steri-strips in place for 1 week. Allergies/Adverse Reactions: Allergies carbamazepine [From Tegretol] Allergy (Verified 05/25/19 14:29) Rash Medications to take at Discharge aspirin 81 mg tablet,delayed release 81 mg PO DAILY 07/21/18 atorvastatin 80 mg tablet 80 mg PO QHS 07/21/18 cholecalciferol (vitamin D3) 2,000 unit capsule 2,000 unit PO DAILY 07/21/18 cinnamon bark 500 mg capsule 1 cap PO QHS cap 07/21/18 finasteride 5 mg tablet 5 mg PO QHS 07/21/18 lamotrigine 200 mg tablet 200 mg PO BID 07/21/18 lisinopril 5 mg tablet 5 mg PO QHS 07/21/18 metformin ER 500 mg tablet,extended release 24 hr 500 mg PO BID tab 07/21/18 Ascorbic Acid [Vitamin C] 1,000 mg PO QHS 01/06/19 Calcium Carb/Mag Ox/Zinc Sulf [Occcobe-Sxejrwqhq-Rlms Tablet] 1 ea PO QHS 01/06/19 Saw [place] Fruit [Saw [place]] 450 mg PO QHS 01/06/19 Tamsulosin HCl [Flomax] 0.4 mg PO QHS 01/06/19 Famotidine [Pepcid] 20 mg PO BID 05/17/19 Insulin Aspart [Novolog Flexpen] 8 units SUBCUT DAILY 05/17/19 Insulin Degludec [Tresiba] 12 unit SQ QHS 05/17/19 Hydrocodone Bitart/Apap 5-325 [[place] 5MG-325MG] 1 tab PO Q6H PRN PRN 2 Days #6 tab 05/24/19 Metoprolol Tartrate 75 mg PO BID 05/25/19 Potassium (Otc) [Potassium Otc] 99 mg PO QHS 05/25/19 Primary Care Physician: Jerry Dee MD [Primary Care Provider] - Test Results: Test results from this visit will be discussed in further detail at your follow- up appointment, if applicable. Please Follow Up With: Shaquille Chamorro MD - [phone] When: Call to make an appointment to be seen in about 10 days.
[2019-05-26] MEDS: 0.9% Normal Saline 1,000 ML 70 ML IV (06:10)
[2019-05-26 06:46] LABS: Bedside Glucose 131 mg/dL (70-110)
[2019-05-26 06:59] VITALS: PULSE 89
[2019-05-26 07:04] LABS: Anion Gap 4 (5-15); BUN 17 mg/dL (7-18); Calcium,Total 8.7 mg/dL (8.5-10.1); Chloride 103 mmol/L (98-107); EST Glomerular Filtration Rate 77 mL/min (>60); Est Glom Filt Rate - Afr Amer 93 mL/min (>60); Estimated Creatinine Clearance 64.89 ml/min; Glucose 130 mg/dL (74-106); Potassium 4.7 mmol/L (3.5-5.1); Sodium Level 134 mmol/L (136-145)
[2019-05-26 07:50] VITALS: O2SAT 91
[2019-05-26 09:12] VITALS: BP 114/73; PULSE 96; RESP 16; TEMP 37; O2SAT 96
[2019-05-26 09:14] VITALS: BP 114/73; PULSE 96
[2019-05-26] MEDS: Metoprolol(XL)Succ 25 MG Tablet 75 MG PO (09:14)
[2019-05-26] MEDS: metFORMIN (XR) 500 MG Tablet PO (09:15)
[2019-05-26] MEDS: lamoTRIgine 100 MG Tablet 200 MG PO (09:15)
[2019-05-26] MEDS: Famotidine 20 MG Tablet PO (09:15)
[2019-05-26] MEDS: Enoxaparin 40 MG/0.4 ML Syringe SC (09:15)
== END 2019-05-26 06:04 | disposition home or self-care (01) ==
PROVIDERS: Physician Assistant; Admitting Provider Surgery; Family Provider Family Medicine; PCP Family Medicine; Referring Provider Surgery; Visit Provider Surgery
DX: N99.89 Other postprocedural complications and disorders of genitourinary system (principal); N40.1 Benign prostatic hyperplasia with lower urinary tract symptoms; R33.9 Retention of urine, unspecified; I13.0 Hypertensive heart and chronic kidney disease with heart failure and stage 1 through stage 4 chronic kidney disease, or unspecified chronic kidney disease; I50.32 Chronic diastolic (congestive) heart failure; E78.5 Hyperlipidemia, unspecified; I48.20 Chronic atrial fibrillation, unspecified; I48.0 Paroxysmal atrial fibrillation; K21.9 Gastro-esophageal reflux disease without esophagitis; N18.9 Chronic kidney disease, unspecified; I25.2 Old myocardial infarction; I25.10 Atherosclerotic heart disease of native coronary artery without angina pectoris; I73.9 Peripheral vascular disease, unspecified; Z79.899 Other long term (current) drug therapy; Z79.82 Long term (current) use of aspirin; Z79.4 Long term (current) use of insulin; Z87.891 Personal history of nicotine dependence; K91.0 Vomiting following gastrointestinal surgery; Y83.8 Other surgical procedures as the cause of abnormal reaction of the patient, or of later complication, without mention of misadventure at the time of the procedure
CPT/HCPCS: 36415; 74019; 80048; 82962; 85025; 96372; 99218; J7030; G0378; G0379

== ENCOUNTER 2019-06-07 20:48 | Emergency (ER) | payer MEDICARE, OTHER, SELFPAY ==
[2019-05-25 16:41] VITALS: BMI 24.9
[2019-06-07 20:49] VITALS: BP 188/102; PULSE 117; RESP 16; TEMP 36.6; O2SAT 98; BMI 25.1
--- NOTE | 2019-06-07 22:17 | ED.VIS.GEN ---
History of Present Illness Chief Complaint: Complaint Detail of Chief Complaint: Urinary retention Informant: Patient Onset: Today Current Severity: Moderate Maximum Severity: Moderate Narrative: Patient presents with urinary retention. He had hernia surgery approximate 2 weeks ago and had problems with BPH and urinary retention following his surgery. He just had his Post catheter removed this morning and Dr. Lopez's office. Patient states he was not able to urinate in the office. He been able to dribble small amounts throughout the day. Tonight he has not been able to urinate and has increasing pressure in his lower abdomen. Past Medical History - Allergies and Home Meds Allergies/Adverse Reactions: Allergies carbamazepine [From Tegretol] Allergy (Verified 06/07/19 20:51) Rash Primary Care Physician: Sanjiv Lopez MD [STAFF PHYSICIAN] - 1 Week Prior records reviewed: Yes Past Medical History: - - Reviewed Surgical History: herniorrhaphy - Ventral and right inguinal hernia repair 05/24/19 Lives: Spouse/ Significant Other Smoking Status: Former smoker Review of Systems General: Denies: Chills, Fever Eyes: Denies: Visual changes - bilaterally ENT: Denies: Bilateral ear pain Cardiovascular: Denies: Chest pain Respiratory: Denies: Dyspnea, Cough Gastrointestinal: Reports: Abdominal pain - Suprapubic pain Genitourinary: Reports: - - Unable to urinate Musculoskeletal: Denies: Extremity Pain Skin: Denies: Rash, Abscess Allergy: Denies: Uticaria Physical Exam Vital Signs/Narrative: Vital Signs Temp Pulse Resp BP Pulse Ox 06/07/19 20:49 98 F 117 H 16 188/102 H 98 Inital Vital Signs reviewed: Yes General: Well nourished, Well developed ENT: Moist mucous membranes Neck: Supple Cardiovascular: Regular rate, Regular rhythm Respiratory: No distress, CTA bilaterally Abdomen: Soft, Tender - Suprapubic tenderness and fullness. Extremities: Nontender Skin: Normal color, No rash Neurological: Alert, Oriented x3 Psychological: Normal affect Diagnostic/Tx/Re-eval - Medical Decision Making Post catheter placed by nursing staff without difficulty. He initially had 1000 cc of urine out. When I went back to reevaluate the patient he had approximately 1250 out. Urine culture will be sent. My suspicion is this is all secondary to BPH. He will follow-up with Dr. Lopez. ED Disposition - Plan for ED Patient: Disposition: Home or Assisted Living Diagnosis: Urinary retention Instructions: URINARY RETENTION, Male Referrals: Sanjiv Lopez MD [STAFF PHYSICIAN] - 1 Week
[2019-06-07 22:35] VITALS: BP 132/76; PULSE 100; RESP 14
[2019-06-07] MEDS: Lidocaine Jelly 2% 20 ML Syringe (URO-JET) 20 APPLIC TOPICAL (22:36)
[2019-06-07 22:50] VITALS: BP 132/76; RESP 18
== END 2019-06-07 22:55 | disposition home or self-care (01) ==
PROVIDERS: Emergency Provider Emergency Medicine; Family Provider Family Medicine; PCP Family Medicine
DX: N40.1 Benign prostatic hyperplasia with lower urinary tract symptoms (principal); R33.8 Other retention of urine; Z98.890 Other specified postprocedural states; Z87.891 Personal history of nicotine dependence
CPT/HCPCS: 87077; 87086; 87088; 87186; 99282

== ENCOUNTER 2019-06-23 07:12 | Day surgery (SDC) | payer MEDICARE, OTHER, SELFPAY ==
[2019-06-16 14:27] VITALS: BP 125/76; PULSE 78; RESP 16; TEMP 36.3; O2SAT 97; BMI 25.2
[2019-06-16 15:04] LABS: International Normalized Ratio 1.1; Partial Thromboplast Time 24.4 Seconds (24.1-36.2); Prothrombin Time (Protime)PT. 13.6 SECONDS (11.7-14.9)
[2019-06-23] VITALS (13 sets, daily range): BP systolic 112–154; BP diastolic 61–90; PULSE 60–110; RESP 16–18; TEMP 36.3–36.9; O2SAT 95–100; BMI 25.2; BMI 25.1
[2019-06-23 07:50] LABS: Bedside Glucose 157 mg/dL (70-110)
[2019-06-23] MEDS: Lactated Ringers 1,000 ML 100 ML IV ×2 (07:56→10:33)
[2019-06-23] MEDS: Cefazolin 2 GM in 0.9% Normal Saline 100 ML IV (08:32)
--- NOTE | 2019-06-23 08:39 | DCINST_ITS ---
- Discharge Diagnoses Current Active Problems: BPH with urinary retention Reason(s) for Visit for Discharge Instructions: TURP You will use the following diet at home:: Regular Your food should be the consistency of: Regular Discharge Activity: Return to Normal Activity Suture Line Care: Avoid Pulling/Pushing, Avoid Pinching/Bending Instructions: Transurethral Resection of the Prostate (TURP): Home Recovery Allergies/Adverse Reactions: Allergies carbamazepine [From Tegretol] Allergy (Verified 06/23/19 07:35) Rash Medications to take at Discharge aspirin 81 mg tablet,delayed release 81 mg PO DAILY 07/21/18 atorvastatin 80 mg tablet 80 mg PO QHS 07/21/18 cholecalciferol (vitamin D3) 2,000 unit capsule 2,000 unit PO DAILY 07/21/18 cinnamon bark 500 mg capsule 1 cap PO QHS cap 07/21/18 finasteride 5 mg tablet 5 mg PO QHS 07/21/18 lamotrigine 200 mg tablet 200 mg PO BID 07/21/18 lisinopril 5 mg tablet 5 mg PO QHS 07/21/18 metformin ER 500 mg tablet,extended release 24 hr 1,000 mg PO BID tab 07/21/18 Ascorbic Acid [Vitamin C] 1,000 mg PO QHS 01/06/19 Calcium Carb/Mag Ox/Zinc Sulf [Hmxgymr-Dfjbycdhg-Laze Tablet] 1 ea PO QHS 01/06/19 Saw [place] Fruit [Saw [place]] 450 mg PO QHS 01/06/19 Tamsulosin HCl [Flomax] 0.4 mg PO QHS 01/06/19 Famotidine [Pepcid] 20 mg PO BID 05/17/19 Insulin Aspart [Novolog Flexpen] 8 units SUBCUT DAILY 05/17/19 Insulin Degludec [Tresiba] 12 unit SQ QHS 05/17/19 Metoprolol Tartrate 75 mg PO BID 05/25/19 Potassium (Otc) [Potassium Otc] 99 mg PO QHS 05/25/19 Ferrous Sulfate 325 mg PO BIDCM 06/16/19 Ciprofloxacin [Cipro] 500 mg PO BID #14 tab 06/23/19 The following prescriptions were given: Ciprofloxacin [Cipro] 500 mg PO BID #14 tab Transmission Status: Pending to [facility]/pharmacy #[id number] Primary Care Physician: Jerry Dee MD [Primary Care Provider] - Test Results: Test results from this visit will be discussed in further detail at your follow- up appointment, if applicable. Please Follow Up With: Ankita Talavera Dr's DIMETHYLANILINE SULFATOR OPERATOR When: 2 weeks.
--- NOTE | 2019-06-23 08:45 | PROS_PTH ---
PATIENT: AGUSTO CASTILLO LOC: [facility] [place] U#:[id number] AGE/SX: 74/M ROOM: RE06/23/[address]: Dr. Sanjiv Lopez MD : 1945 BED: DIS: 06/24/2019 SPEC #: [id number] RECD: 06/23/19 10:32 STATUS: JOSETTE REJuanis #: [id number] LYNN: 06/23/19 08:[address]: Sanjiv Lopez DEPT: SURGICAL PATHOLOGY RECD BY: Arturo Pope ENTERED: 06/23/19 12:22 SP TYPE: TURP OTHR DR: Dr. Jerry Dee MD Tissues: Prostate, NOS Procedures: Surgery Specimen Level IV HEADER OPERATION: Cysto, TUR prostate, Olympus PRE-OP DIAGNOSIS: BPH with lower urinary tract symptoms; retention of urine TISSUE SUBMITTED: Prostate tissue MICROSCOPIC DIAGNOSIS Prostate tissue, TUR: Benign prostatic hyperplasia, glandular and stromal type. Focal mild chronic inflammation. SJ:luis daniel 06/24/19 MICROSCOPIC DESCRIPTION Slides are reviewed. GROSS DESCRIPTION Received is one container labeled with the patient's name and designated prostate tissue. The specimen consists of multiple irregular fragments of pink-abraham, rubbery, soft tissue that in aggregate weigh 12.8 gm and measure in aggregate 6 x 6 x 0.8 cm. Follow Up Clerk portions are submitted in 12 cassettes. / AM:luis daniel 06/23/19 TC:5 CPT: 38249
[2019-06-23] MEDS: Lubricating Jelly 60 GM Tube 30 GM TOPICAL (08:48)
--- NOTE | 2019-06-23 09:26 | OP.PCM_ITS ---
Report of Operation Date of Procedure: 06/23/19 Pre-Operative Diagnosis: BPH with obstruction and urinary retention Post-Operative Diagnosis: Same Surgery/Procedure Performed:: Transurethral resection of the prostate Description of Surgical Findings:: 74-year-old male taken back to the operating room at the smooth induction of general anesthesia he was placed supine on the table, the Shi catheter was removed, is placed in dorsolithotomy position, penis and testicles were prepped and draped in usual sterile fashion. Went into the urethra with a 26 [place] continuous-flow resectoscope, marked the verumontanum, marked the sphincter, and then looked at the channel he had a large obstructive median lobe and bilateral hypertrophy I then resected the median lobe make sure that both the left and right ureter orifice were not injured and then resected the right lobe of the prostate and then resect the left low the prostate. And after the resection was completed I cauterized the prostate fossa obtained all the chips of the bladder and place a catheter in the bladder and continuous bladder irrigation is taken back to PACU in good condition and the urine was clear. Type of Anesthesia:: General Drains: [address] - Admit VTE Documentation VTE Present on Admission: No
[2019-06-23] MEDS: Metoprolol Tartrate 25 MG Tablet 75 MG PO ×2 (12:11→21:20)
[2019-06-23] MEDS: Docusate Sodium 100 MG Capsule PO ×2 (12:11→21:22)
[2019-06-23] MEDS: Pantoprazole Sodium 40 MG Tablet PO (12:12)
[2019-06-23] MEDS: 0.9% Normal Saline 1,000 ML 75 ML IV (12:15)
[2019-06-23 13:01] LABS: Bedside Glucose 148 mg/dL (70-110)
[2019-06-23] MEDS: Ciprofloxacin 400 MG/200 ML BAG 200 MG IV (14:03)
[2019-06-23] MEDS: Acetaminophen 325 MG Tablet PO (15:31)
[2019-06-23 16:11] LABS: Bedside Glucose 195 mg/dL (70-110)
[2019-06-23] MEDS: metFORMIN (XR) 500 MG Tablet 1000 MG PO (17:27)
[2019-06-23] MEDS: Carbamide Peroxide 15 ML Bottle 5 DRP OTIC (19:22)
[2019-06-23] MEDS: Lisinopril 5 MG Tablet PO (21:22)
[2019-06-23] MEDS: Atorvastatin Calcium 80 MG Tablet PO (21:22)
[2019-06-23] MEDS: Finasteride 5 MG Tablet PO (21:22)
[2019-06-23] MEDS: Tamsulosin HCl 0.4 MG Capsule PO (21:22)
[2019-06-23] MEDS: lamoTRIgine 100 MG Tablet 200 MG PO (21:23)
[2019-06-23 21:36] LABS: Bedside Glucose 277 mg/dL (70-110)
[2019-06-24] MEDS: Ciprofloxacin 400 MG/200 ML BAG 200 MG IV (02:30)
[2019-06-24] MEDS: 0.9% Normal Saline 1,000 ML 75 ML IV (02:30)
[2019-06-24 02:32] VITALS: BP 141/68; PULSE 78; RESP 16; TEMP 37; O2SAT 98
[2019-06-24 08:26] VITALS: BP 137/77; PULSE 96; RESP 14; TEMP 36.8; O2SAT 98
[2019-06-24] MEDS: metFORMIN (XR) 500 MG Tablet 1000 MG PO (08:32)
[2019-06-24 08:33] VITALS: PULSE 96
[2019-06-24] MEDS: Metoprolol Tartrate 25 MG Tablet 75 MG PO (08:33)
[2019-06-24] MEDS: Pantoprazole Sodium 40 MG Tablet PO (08:33)
[2019-06-24] MEDS: lamoTRIgine 100 MG Tablet 200 MG PO (08:33)
[2019-06-24 08:45] LABS: Bedside Glucose 94 mg/dL (70-110)
[2019-06-24] MEDS: Insulin Lispro 100 UNIT/ML INSULN.PEN 8 UNIT SC (08:56)
[2019-06-24 11:21] LABS: Bedside Glucose 79 mg/dL (70-110)
[2019-06-24 13:26] VITALS: BP 130/70; PULSE 96; RESP 16; TEMP 36.8; O2SAT 98
== END 2019-06-24 13:30 | disposition home or self-care (01) ==
LOC: SDC 07:12 → AC 07:13 → MS2 06-24 01:48
PROVIDERS: Anesthesiology; Family Provider Family Medicine; PCP Family Medicine; Referring Provider Urology; Visit Provider Urology
PROC: (CPT 52601; principal; 2019-06-23 08:35)
DX: N40.1 Benign prostatic hyperplasia with lower urinary tract symptoms (principal); R33.8 Other retention of urine; N41.1 Chronic prostatitis; Z79.899 Other long term (current) drug therapy; Z79.84 Long term (current) use of oral hypoglycemic drugs; Z79.82 Long term (current) use of aspirin; Z79.4 Long term (current) use of insulin; I13.0 Hypertensive heart and chronic kidney disease with heart failure and stage 1 through stage 4 chronic kidney disease, or unspecified chronic kidney disease; N18.9 Chronic kidney disease, unspecified; E11.22 Type 2 diabetes mellitus with diabetic chronic kidney disease; I50.9 Heart failure, unspecified; K21.9 Gastro-esophageal reflux disease without esophagitis; E78.5 Hyperlipidemia, unspecified; I48.91 Unspecified atrial fibrillation; G40.909 Epilepsy, unspecified, not intractable, without status epilepticus; D64.9 Anemia, unspecified; Z87.891 Personal history of nicotine dependence
CPT/HCPCS: 52601; 82962; 85610; 85730; 88305; J7030; J7120; J0744; J2405

== ENCOUNTER 2019-06-24 23:25 | Emergency (ER) | payer MEDICARE, OTHER, SELFPAY ==
[2019-06-23 11:39] VITALS: BMI 25.1
[2019-06-24 23:26] VITALS: BP 146/84; PULSE 90; RESP 18; TEMP 36.7; O2SAT 93; BMI 25.9
--- NOTE | 2019-06-24 23:53 | ED.VIS.GEN ---
History of Present Illness Chief Complaint: Complaint Informant: Patient Narrative: Patient stated he had his Post catheter removed earlier today. He had a prostate TURP by Dr. Lopez he was discharged today afternoon after he was able to urinate on his own. He had a bowel movement this evening. He has not been able to have a good urination this evening and feels pressure. He thinks he will need another catheter for a few days. Denies any fevers or chills or back pain.. He has been dribbling. He stated his stream had very minimal blood this afternoon. He is on no blood thinners. Current severity is mild to moderate. He has had this in the past. - Past Medical History (1) Abdominal pain Status: Acute (2) Acid reflux Status: Acute (3) Inguinal hernia of right side without obstruction or gangrene Status: Acute (4) Iron deficiency anemia Status: Acute (5) Post-operative nausea and vomiting Status: Acute (6) Pre-syncope Status: Acute (7) Urinary retention Status: Acute (8) Urinary retention due to benign prostatic hyperplasia Status: Acute (9) Ventral incisional hernia without obstruction or gangrene Status: Acute (10) Atherosclerosis of coronary artery of [place] heart without angina pectoris Status: Chronic Comment: PCI-ROSAS-Mid LAD w/ 2.5 x 30 mm and 2.5 x 18 mm w/ Resolute Rx Stent 08/26/16 (11) Chronic diastolic (congestive) heart failure Status: Chronic (12) Essential (primary) hypertension Status: Chronic (13) Hyperlipidemia Status: Chronic (14) Paroxysmal atrial fibrillation Status: Chronic (15) Peripheral vascular occlusive disease Status: Chronic Comment: Left above and below the knee popliteal and tibioperoneal trunk atherectomy and angioplasty 06/28/14 Left below the knee popliteal atherectomy w/ angioplasty 12/29/13 (16) History of coronary artery stent placement Status: Resolved Comment: PCI-ROSAS-Mid LAD w/ 2.5 x 30 mm and 2.5 x 18 mm w/ Resolute Rx Stent 08/26/16 (17) Syncope Status: Resolved Past Medical History - Allergies and Home Meds Allergies/Adverse Reactions: Allergies carbamazepine [From Tegretol] Allergy (Verified 06/24/19 23:29) Rash Primary Care Physician: Sanjiv Lopez MD [STAFF PHYSICIAN] - Prior records reviewed: Yes Past Medical History: - - See problem list Surgical History: herniorrhaphy - Ventral and right inguinal hernia repair 05/24/19, TURP Lives: With Family Smoking Status: Never smoker Alcohol: None Drugs: None Review of Systems General: Denies: Chills, Fever, Sweats Eyes: Denies: Visual changes - bilaterally, Diplopia ENT: Denies: Rhinorrhea, Sore throat Cardiovascular: Denies: Chest pain, Palpitations Respiratory: Denies: Dyspnea, Cough, Dyspnea on exertion Gastrointestinal: Reports: Abdominal pain - Secondary to unable to urinate. Denies: Nausea, Vomiting, Diarrhea, Melena, Hematochezia Genitourinary: Reports: - - see HPI. Denies: Dysuria, Hematuria, Frequency Musculoskeletal: Denies: Back pain, Extremity Pain Skin: Denies: Rash, Wounds Neurological: Denies: Headache, Weakness, Numbness Physical Exam Vital Signs/Narrative: Vital Signs Temp Pulse Resp BP Pulse Ox 06/24/19 23:26 98.0 F 90 18 146/84 H 93 General: Well nourished, Well developed, No Acute Distress Head: Normocephalic, Atraumatic Eyes: Perrl, EOMI ENT: Moist mucous membranes, No rhinorrhea Neck: Supple, Nontender Cardiovascular: Regular rate, Regular rhythm, No murmurs Respiratory: No distress, CTA bilaterally, Chest nontender Abdomen: Soft, Nondistended, Normal bowel sounds, Tender - Suprapubic fullness and tenderness : - - Penile urethra penis and scrotum appear normal Back: Nontender, Normal Inspection Extremities: Nontender, No edema Skin: Normal color, No rash Neurological: Alert, Oriented x3, Cranial nerves II-XII grossly intact, Normal Strength, Normal Sensation Psychological: Normal affect, Normal Mood Diagnostic/Tx/Re-eval - Medical Decision Making Post catheter placed. Patient felt immediately better. A few small blood clots came out in the Post. We placed a 20-gauge therefore blood clots will not likely get caught. I do not feel he needs lab work. 600 cc have been removed. He feels significantly better and will be discharged to follow-up with his urologist as an outpatient ED Disposition - Plan for ED Patient: Disposition: Home or Assisted Living Diagnosis: Urinary retention Instructions: URINARY RETENTION, Male Referrals: Sanjiv Lopez MD [STAFF PHYSICIAN] -
[2019-06-25 00:20] VITALS: BP 138/70; PULSE 85; RESP 16; O2SAT 98
== END 2019-06-25 00:33 | disposition home or self-care (01) ==
PROVIDERS: Emergency Provider Emergency Medicine; Family Provider Family Medicine; PCP Family Medicine
DX: N40.1 Benign prostatic hyperplasia with lower urinary tract symptoms (principal); R33.9 Retention of urine, unspecified; K21.9 Gastro-esophageal reflux disease without esophagitis; D50.9 Iron deficiency anemia, unspecified; I25.10 Atherosclerotic heart disease of native coronary artery without angina pectoris; I50.32 Chronic diastolic (congestive) heart failure; I11.0 Hypertensive heart disease with heart failure; E78.5 Hyperlipidemia, unspecified; I48.0 Paroxysmal atrial fibrillation; I73.9 Peripheral vascular disease, unspecified; Z95.5 Presence of coronary angioplasty implant and graft
CPT/HCPCS: 51702; 82962; 85610; 85730; 88305; 99283; J7030; J7120; J0744; J2405

== ENCOUNTER → 2019-07-12 10:13 | Outpatient (CLI) | payer MEDICARE, OTHER, SELFPAY ==
[2019-04-24 10:10] VITALS: BMI 25.0
[2019-06-25 13:22] VITALS: BMI 25.1
[2019-07-12 12:20] LABS: Absolute Lymphocyte Count 2.56 X10^3/uL (0.83-4.51); Absolute Neutrophil Count 5.2 X10^3/uL (2.0-7.7); Basophil# 0.08 X10^3/uL; Basophil% 0.8 % (0-1); Eosinophil# 0.64 X10^3/uL; Eosinophils% 6.8 % (0-5); Hematocrit 42.4 % (40-54); Hemoglobin 13.8 g/dL (13.0-16.5); Lymphocyte # 2.56 X10^3/ul (4.0); Lymphocyte % 27.1 % (19-41); Mean Corp Hgb Conc 32.5 g/dL (32-36); Mean Corpuscular Hgb 30.3 pg (27.0-32.0); Mean Platelet Vol. 9.8 fl (6.2-12.0); Monocyte# 0.91 X10^3/uL; Monocyte% 9.6 % (0-10); NRBC Flagged by Analyzer 0 % (0-5); Neutrophil # 5.23 X10^3/uL (2.7-7.7); Neutrophil % 55.4 % (47-70); Platelet Count 286 K/mm3 (150-450); RBC Distribution Width CV 12.9 % (11.6-14.6); Red Blood Count 4.56 M/mm3 (4.6-6.2); White Blood Count 9.5 K/mm3 (4.4-11.0)
[2019-07-12 12:43] LABS: Hemoglobin A1c 6.8 % (4.2-6.3)
[2019-07-12 12:45] LABS: Vitamin D,25 Hydroxy 52.1 ng/mL (29.95-100.01)
[2019-07-12 13:35] LABS: ALB/GLOB Ratio 1.3 RATIO (0.9-2.4); AST(SGOT) 15 U/L (15-37); Alanine Aminotransfer ALT/SGPT 28 U/L (16-61); Albumin, Serum 3.9 g/dL (3.2-5.0); Alkaline Phosphatase 70 U/L (45-117); Anion Gap 8 (5-15); BUN 16 mg/dL (7-18); BUN/Creat Ratio 15.8 RATIO (10-20); Calcium,Total 9.5 mg/dL (8.5-10.1); Chloride 106 mmol/L (98-107); Cholesterol 125 mg/dL (200); Creatinine, Serum 1.01 mg/dL (0.70-1.30); EST Glomerular Filtration Rate 76 mL/min (>60); Est Glom Filt Rate - Afr Amer 92 mL/min (>60); Globulin 3.1 g/dL (2.2-4.2); Glucose 32 mg/dL (74-106); High Density Lipoprotein 62 mg/dL; Magnesium 1.8 mg/dL (1.6-2.6); Potassium 3.2 mmol/L (3.5-5.1); Sodium Level 141 mmol/L (136-145); Triglycerides 57 mg/dL; Very Low Density Lipoprotein 11 mg/dL (5-40)
== END ==
PROVIDERS: Family Provider Family Medicine; PCP Family Medicine; Referring Provider Family Medicine; Visit Provider Family Medicine
DX: E78.5 Hyperlipidemia, unspecified (principal); I48.0 Paroxysmal atrial fibrillation; E55.9 Vitamin D deficiency, unspecified; E11.9 Type 2 diabetes mellitus without complications
CPT/HCPCS: 80053; 80061; 82306; 83036; 83735; 85025

== ENCOUNTER → 2019-08-24 15:14 | Outpatient (CLI) | payer MEDICARE, OTHER, SELFPAY ==
[2019-06-25 13:22] VITALS: BMI 25.1
--- NOTE | 2019-08-24 15:17 | RAD_ITS ---
STUDY: X-RAY CHEST REASON FOR EXAM: Male, 74 years old. acute bronchitis TECHNIQUE: PA and lateral views of the chest. COMPARISON: Acute bronchitis FINDINGS: There is questionable right infrahilar mass measuring 3.9 x 3 cm. The lungs are clear and expanded. There is no demonstrated pleural abnormality. Normal size heart. Normal mediastinum and jessica. Normal visualized pulmonary arteries. Normal visualized aortic arch and descending thoracic aorta. Normal visualized thoracic spine. Normal visualized ribs, clavicles, and shoulders. There is no demonstrated abnormality of the visualized soft tissue structures of the upper abdomen. RAD/Chest PA and Lateral IMPRESSION: Lungs are clear. Questionable right infrahilar mass. Recommend CT chest with contrast to further evaluate Electronically Signed: Rajeev Schneider DO at 13:52 EST Tel , Service support ,
== END ==
PROVIDERS: PCP Family Medicine; Referring Provider Family Medicine; Visit Provider Family Medicine
DX: J20.9 Acute bronchitis, unspecified (principal)
CPT/HCPCS: 71046

== ENCOUNTER → 2019-08-30 15:44 | Outpatient (CLI) | payer MEDICARE, OTHER, SELFPAY ==
[2019-06-25 13:22] VITALS: BMI 25.1
--- NOTE | 2019-08-30 15:46 | CT_ITS ---
STUDY: CT CHEST WITH CONTRAST REASON FOR EXAM: Male, 74 years old. Abnormal chest x-ray. Evaluate for hilar mass. RADIATION DOSAGE (If Supplied By Facility): CTDIvol = ( 8.85 ) mGy, DLP = ( 490.27 ) mGycm TECHNIQUE: Transaxial imaging was performed following intravenous administration of 100 ml of Isovue-300 contrast material. Coronal and sagittal reformatted images were created. Individualized dose optimization techniques were used for this CT. COMPARISON: X-ray dated 08/24/2019. FINDINGS: The right lobe of the thyroid is enlarged, measuring 4.7 x 2.4 cm. There are calcifications noted. There are no pulmonary infiltrates or pleural effusions. There are no pulmonary nodules or masses. There is no pneumothorax. The heart and pericardium are within normal limits. There are coronary artery calcifications. There is no thoracic lymphadenopathy. There is no evidence of thoracic aortic aneurysm. Images through the upper abdomen demonstrate gallstones. There are no destructive osseous lesions. CT/Chest WITH Contrast IMPRESSION: Clear lungs. No lymphadenopathy. Enlarged right lobe of the thyroid with calcifications. If indicated, further evaluation with ultrasound can be performed. Coronary artery disease. Gallstones. Electronically Signed: Noe Soler, at 17:28 EST Tel , Service support ,
[2019-08-30 15:56] LABS: CREATININE FINGERSTICK 0.9 mg/dL (0.70-1.30); EGFR FINGERSTICK > 60.0000 mL/min (>60)
== END ==
PROVIDERS: PCP Family Medicine; Referring Provider Family Medicine; Visit Provider Family Medicine
DX: R91.8 Other nonspecific abnormal finding of lung field (principal)
CPT/HCPCS: 71260; Q9967

== ENCOUNTER → 2019-09-10 16:11 | Outpatient (CLI) | payer MEDICARE, OTHER, SELFPAY ==
[2019-06-25 13:22] VITALS: BMI 25.1
--- NOTE | 2019-09-10 16:14 | US_ITS ---
STUDY: THYROID ULTRASOUND REASON FOR EXAM: Male, 74 years old. NODULES TECHNIQUE: Ultrasound evaluation of the thyroid was performed with real-time and static sy-scale imaging. COMPARISON: None. FINDINGS: RIGHT LOBE: The right lobe of the thyroid gland measures 6.4 x 3.2 x 3.2 cm. There is a heterogeneous echotexture. Multiple isoechoic nodules are identified with the largest in the upper right thyroid measuring 1.9 x 1.9 x 2.2 cm with central cystic transformation but no microcalcifications or vascular flow. LEFT LOBE: The left lobe of the thyroid gland measures 5.4 x 2.1 x 2.1 cm. There is a heterogeneous echotexture. There is a small calcification of the left thyroid measuring 6 mm with shadowing. ISTHMUS: The isthmus measures 4 mm. The regional lymph nodes are normal. US/Thyroid IMPRESSION: 1. Thyromegaly with diffuse gland heterogeneity. 2. Multinodular thyroid gland measuring up to 2.2 cm on the right side. Electronically Signed: Yaw Lei MD (Brooks) at 14:44 EST , Service support ,
== END ==
PROVIDERS: PCP Family Medicine; Referring Provider Family Medicine; Visit Provider Family Medicine
DX: E04.1 Nontoxic single thyroid nodule (principal)
CPT/HCPCS: 76536

== ENCOUNTER → 2019-09-29 | Outpatient (CLI) | payer MEDICARE, OTHER, SELFPAY ==
--- NOTE | 2019-09-29 | ASPS_PTH ---
PATIENT: AGUSTO CASTILLO LOC: [facility] U#:[id number] AGE/SX: 74/M ROOM: RE09/29/[address]: Dr. Andrea Perez MD : 1945 BED: DIS: 09/29/2019 SPEC #: [id number] RECD: 09/29/19 16:14 STATUS: JOSETTE DONAL #: [id number] LYNN: 09/29/19 00:[address]: Andrea Perez DEPT: CYTOLOGY RECD BY: Benjamin Holley ENTERED: 09/30/19 08:02 SP TYPE: ASPIRATION OTHR DR: Dr. Jerry Dee MD Tissues: Thyroid gland, NOS Procedures: Special Stain Group II Cytology Other HEADER OPERATION: Ultrasound-guided fine needle aspiration, right thyroid PRE-OP DIAGNOSIS: Nontoxic multinodular goiter E04.2 TISSUE SUBMITTED: Fine needle aspiration right thyroid (12 slides) DIAGNOSIS CYTOLOGY Right thyroid nodule, ultrasound-guided FNA (smears): Consistent with benign follicular nodule/colloid nodule. Adequate for evaluation. See comment. SJ:luis daniel 10/01/19 COMMENT The specimen is paucicellular, however, meets the minimal criteria for adequacy of the specimen. Correlation with clinical, radiologic findings and appropriate follow up are necessary. Case has been reviewed in consultation with Dr. Sofia who concurs with the above diagnosis. IDC:AM CYTOLOGY STUDY Slides are reviewed. CYTOLOGY GROSS Received are 12 smears labeled with the patient's name and designated per the requisition as right thyroid. Submitted for staining. / luis daniel 09/30/19 TC: 5 CPT: 97320
[2019-09-29 13:03] VITALS: BMI 25.1
== END | disposition home or self-care (01) ==
LOC: LABSPEC 16:18
PROVIDERS: PCP Family Medicine; Referring Provider Surgery; Visit Provider Surgery
DX: E04.2 Nontoxic multinodular goiter (principal)
CPT/HCPCS: 88161; 88313

== ENCOUNTER → 2019-10-12 08:21 | Outpatient (CLI) | payer MEDICARE, OTHER, SELFPAY ==
[2019-09-29 13:03] VITALS: BMI 25.1
[2019-10-12 10:13] LABS: Absolute Lymphocyte Count 2.34 X10^3/uL (0.83-4.51); Absolute Neutrophil Count 2.8 X10^3/uL (2.0-7.7); Basophil# 0.05 X10^3/uL; Basophil% 0.8 % (0-1); Eosinophil# 0.23 X10^3/uL; Eosinophils% 3.9 % (0-5); Hematocrit 43.9 % (40-54); Hemoglobin 14.3 g/dL (13.0-16.5); Lymphocyte # 2.34 X10^3/ul (4.0); Lymphocyte % 39.3 % (19-41); Mean Corp Hgb Conc 32.6 g/dL (32-36); Mean Corpuscular Hgb 29.9 pg (27.0-32.0); Mean Corpuscular Volume 91.6 fL (80-94); Mean Platelet Vol. 9.8 fl (6.2-12.0); Monocyte# 0.51 X10^3/uL; Monocyte% 8.6 % (0-10); NRBC Flagged by Analyzer 0 % (0-5); Neutrophil # 2.81 X10^3/uL (2.7-7.7); Neutrophil % 47.2 % (47-70); Platelet Count 215 K/mm3 (150-450); RBC Distribution Width CV 11.9 % (11.6-14.6); RBC Distribution Width SD 39.8 fl (35.1-43.9); Red Blood Count 4.79 M/mm3 (4.6-6.2)
[2019-10-12 10:44] LABS: Vitamin B12 722 pg/mL (211-911)
[2019-10-12 10:59] LABS: Hemoglobin A1c 7.5 % (4.2-6.3)
[2019-10-12 11:08] LABS: ALB/GLOB Ratio 1.3 RATIO (0.9-2.4); AST(SGOT) 16 U/L (15-37); Alanine Aminotransfer ALT/SGPT 37 U/L (16-61); Albumin, Serum 3.6 g/dL (3.2-5.0); Alkaline Phosphatase 58 U/L (45-117); Anion Gap 7 (5-15); BUN 14 mg/dL (7-18); BUN/Creat Ratio 14.8 RATIO (10-20); Calcium,Total 9.3 mg/dL (8.5-10.1); Chloride 103 mmol/L (98-107); Creatinine, Serum 0.94 mg/dL (0.70-1.30); EST Glomerular Filtration Rate 82 mL/min (>60); Est Glom Filt Rate - Afr Amer 100 mL/min (>60); Ferritin 131 ng/mL (26-388); Globulin 2.8 g/dL (2.2-4.2); Glucose 115 mg/dL (74-106); Iron 80 ug/dL (65-175); Iron Binding Capacity,Total 244 ug/dL (250-450); Potassium 3.8 mmol/L (3.5-5.1); Protein, Total 6.4 g/dL (6.4-8.2); Sodium Level 139 mmol/L (136-145)
== END ==
PROVIDERS: PCP Family Medicine; Referring Provider Family Medicine; Visit Provider Family Medicine
DX: I10 Essential (primary) hypertension (principal); E11.9 Type 2 diabetes mellitus without complications; D64.9 Anemia, unspecified
CPT/HCPCS: 36415; 80053; 82607; 82728; 82746; 83036; 83540; 83550; 85025

== ENCOUNTER → 2019-10-13 13:07 | Outpatient (CLI) | payer MEDICARE, OTHER, SELFPAY ==
[2019-09-29 13:03] VITALS: BMI 25.1
[2019-10-13 15:47] LABS: Microalbumin:Creatinine Ratio 106.7 mg/g CRE (<30 mg/g CRE)
== END ==
PROVIDERS: PCP Family Medicine; Referring Provider Family Medicine; Visit Provider Family Medicine
DX: E11.9 Type 2 diabetes mellitus without complications (principal)
CPT/HCPCS: 82043; 82570

== ENCOUNTER → 2020-01-17 | Outpatient (CLI) | payer MEDICARE, OTHER, SELFPAY ==
[2019-09-29 13:03] VITALS: BMI 25.1
[2020-01-17 17:47] LABS: Absolute Lymphocyte Count 1.43 X10^3/uL (0.83-4.51); Absolute Neutrophil Count 6.1 X10^3/uL (2.0-7.7); Basophil# 0.04 X10^3/uL; Basophil% 0.5 % (0-1); Eosinophil# 0.11 X10^3/uL; Eosinophils% 1.3 % (0-5); Hematocrit 42.3 % (40-54); Hemoglobin 13.8 g/dL (13.0-16.5); Lymphocyte # 1.43 X10^3/ul (4.0); Lymphocyte % 17.4 % (19-41); Mean Corp Hgb Conc 32.6 g/dL (32-36); Mean Corpuscular Hgb 30.7 pg (27.0-32.0); Mean Corpuscular Volume 94.2 fL (80-94); Mean Platelet Vol. 10.2 fl (6.2-12.0); Monocyte% 6.1 % (0-10); NRBC Flagged by Analyzer 0 % (0-5); Neutrophil # 6.11 X10^3/uL (2.7-7.7); Neutrophil % 74.6 % (47-70); Platelet Count 207 K/mm3 (150-450); RBC Distribution Width CV 11.9 % (11.6-14.6); RBC Distribution Width SD 40.8 fl (35.1-43.9); Red Blood Count 4.49 M/mm3 (4.6-6.2); White Blood Count 8.2 K/mm3 (4.4-11.0)
[2020-01-17 18:15] LABS: Vitamin D,25 Hydroxy 53.6 ng/mL
[2020-01-17 18:17] LABS: ALB/GLOB Ratio 1.3 RATIO (0.9-2.4); AST(SGOT) 18 U/L (15-37); Alanine Aminotransfer ALT/SGPT 41 U/L (16-61); Albumin, Serum 3.7 g/dL (3.2-5.0); Alkaline Phosphatase 63 U/L (45-117); Anion Gap 9 (5-15); BUN 16 mg/dL (7-18); BUN/Creat Ratio 14.3 RATIO (10-20); Calcium,Total 9.1 mg/dL (8.5-10.1); Chloride 101 mmol/L (98-107); Cholesterol 122 mg/dL (200); Creatinine, Serum 1.12 mg/dL (0.70-1.30); EST Glomerular Filtration Rate 68 mL/min (>60); Est Glom Filt Rate - Afr Amer 82 mL/min (>60); Globulin 2.9 g/dL (2.2-4.2); Glucose 215 mg/dL (74-106); High Density Lipoprotein 64 mg/dL; Magnesium 1.7 mg/dL (1.6-2.6); Protein, Total 6.6 g/dL (6.4-8.2); Sodium Level 136 mmol/L (136-145); Triglycerides 96 mg/dL; Very Low Density Lipoprotein 19 mg/dL (5-40)
[2020-01-17 18:42] LABS: Hemoglobin A1c 7.8 % (3.8-5.6)
== END | disposition home or self-care (01) ==
LOC: MFPLAB 15:29
PROVIDERS: PCP Family Medicine; Visit Provider Family Medicine
DX: E55.9 Vitamin D deficiency, unspecified (principal); I10 Essential (primary) hypertension; E11.9 Type 2 diabetes mellitus without complications; I48.0 Paroxysmal atrial fibrillation; E78.5 Hyperlipidemia, unspecified
CPT/HCPCS: 36415; 80053; 80061; 82043; 82306; 82570; 83036; 83735; 85025

== ENCOUNTER → 2020-01-18 12:12 | Outpatient (CLI) | payer MEDICARE, OTHER, SELFPAY ==
[2019-09-29 13:03] VITALS: BMI 25.1
[2020-01-18 15:58] LABS: Microalbumin:Creatinine Ratio 99.3 mg/g CRE (<30 mg/g CRE)
== END ==
PROVIDERS: PCP Family Medicine; Referring Provider Family Medicine; Visit Provider Family Medicine
DX: E11.9 Type 2 diabetes mellitus without complications (principal); I10 Essential (primary) hypertension; I48.0 Paroxysmal atrial fibrillation; E55.9 Vitamin D deficiency, unspecified; E78.5 Hyperlipidemia, unspecified; E61.1 Iron deficiency
CPT/HCPCS: 82043; 82570

== ENCOUNTER → 2020-01-28 13:20 | Outpatient (CLI) | payer MEDICARE, OTHER, SELFPAY ==
[2019-09-29 13:03] VITALS: BMI 25.1
--- NOTE | 2020-01-28 13:24 | US_ITS ---
STUDY: THYROID ULTRASOUND REASON FOR EXAM: Male, 75 years old. nodules TECHNIQUE: Ultrasound evaluation of the thyroid was performed with real-time and static sy-scale imaging. COMPARISON: 09/10/2019 FINDINGS: RIGHT LOBE: The right lobe of the thyroid gland measures 6.8 x 3.3 x 3.0 cm. There is a heterogeneous echotexture. Multiple solid nodules again identified, largest measures 2.3 x 2.0 x 1.8 cm. There is no significant interval change since the previous study. LEFT LOBE: The left lobe of the thyroid gland measures 5.2 x 2.1 x 2.2 cm. There is a heterogeneous echotexture. There is a stable partially calcified hypoechoic nodule in the lower pole measuring 0.4 x 0.5 x 0.5 cm. ISTHMUS: The isthmus measures 0.5 cm. The regional lymph nodes are normal. US/Thyroid IMPRESSION: Enlarged heterogeneous thyroid with multiple bilateral nodules, findings are again consistent with goiter. No significant interval change since the previous study Electronically Signed: Shashi Hernandez MD at 14:43 EDT , Service support ,
--- NOTE | 2020-01-28 14:02 | CDU_ITS ---
Reason For Study: CAROTID STENOSIS Rt. Velocities/BP Lt. Velocities/BP Prox CCA 55.9//11.6 cm/sec. Prox CCA 60.0/15.8 cm/sec. Mid CCA 66.4/7.7 cm/sec. Mid CCA 83.3/20.7 cm/sec. Dist CCA 67.7/15.5 cm/sec. Dist CCA 105.8/19.9 cm/sec. Prox ICA 82.4/27.6 cm/sec. Prox ICA 67.8/13.8 cm/sec. Mid ICA 102.1/8.9 cm/sec. Mid ICA 94.1/29.0 cm/sec. Dist ICA 50.4/14.2 cm/sec. Dist ICA 116.2/28.5 cm/sec. Rt. ICA/CCA = 102.1/67.7=1.5. Lt. ICA/CCA = 116.2/105.8=1.1. Prox ECA 72.9/9.0 cm/sec. Prox ECA 89.5/17.1 cm/sec. Rt. Vert. 40.6/12.0 cm/sec. Lt. Vert. 73.1/19.3 cm/sec. Right Extracranial There is heterogeneous, irregular atherosclerotic plaque noted in the right common carotid artery. There is heterogeneous, irregular atherosclerotic plaque noted in the right internal carotid artery. The atherosclerotic plaque causes acoustic shadowing. The right internal carotid artery is very tortuous. There is heterogeneous, irregular atherosclerotic plaque noted in the right external carotid artery. Antegrade flow is noted in the right vertebral artery. There is heterogeneous, irregular atherosclerotic plaque noted in the right bulb. Left Extracranial There is heterogeneous, irregular atherosclerotic plaque noted in the left common carotid artery. There is heterogeneous, irregular atherosclerotic plaque noted in the left internal carotid artery. The atherosclerotic plaque causes acoustic shadowing. The left internal carotid artery is very tortuous. There is heterogeneous, irregular atherosclerotic plaque noted in the left external carotid artery. Antegrade flow is noted in the left vertebral artery. There is heterogeneous, irregular atherosclerotic plaque noted in the left bulb. Procedure Carotid Duplex [id number]. The study was technically difficult. Exam performed in department. 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
== END ==
PROVIDERS: PCP Family Medicine; Referring Provider Family Medicine; Visit Provider Family Medicine
DX: I65.23 Occlusion and stenosis of bilateral carotid arteries (principal); E04.2 Nontoxic multinodular goiter
CPT/HCPCS: 76536; 93880

== ENCOUNTER → 2020-03-15 06:45 | Outpatient (CLI) | payer MEDICARE, OTHER, SELFPAY ==
--- NOTE | 2020-03-15 06:46 | ECHOD_ITS ---
Version 2 Reason For Study: CAD Procedure This was a 2D Doppler, Color Flow transthoracic echocardiogram. Exam performed in department. Left Ventricle Normal LV size. Left ventricular systolic function is normal. The estimated ejection fraction is 60 %. Diastolic function is indeterminate. Right Ventricle Normal RV size. Normal systolic function. Atria The left atrium is moderately enlarged. Normal right atrium. Probable patent foramen ovale. Mitral Valve There is mild mitral annular calcification. Mild (1+) eccentric mitral valve insufficiency. Tricuspid Valve Normal tricuspid valve. Mild (1+) tricuspid valve insufficiency. Pulmonary artery systolic pressure is 40 mmHg. Aortic Valve Trisinus/trileaflet aortic valve. Moderate focal aortic valve calcification. Peak aortic valve gradient 17 mmHg. Mean aortic valve gradient 10 mmHg. Mild to moderate aortic stenosis. Calculated aortic valve area (continuity equation) is 1.1 cm2. Pulmonic Valve Normal pulmonic valve. Great Vessels Normal aortic root. The pulmonary artery is normal size. Normal inferior vena cava. Pericardium/Pleural No pericardial effusion. Medication Performed a rapid injection of agitated mix of 9 cc saline and 1cc air to assess for atrial septal defect. MMode/2D Measurements & Calculations LVIDd: 4.3 cm IVSd: 1.1 cm LVOT diam: 2.2 cm LVIDs: 3.0 cm LVPWd: 1.1 cm RVDd: 3.7 cm FS: 30.7 % LVOT area: 3.7 cm2 Ao root diam: 3.9 cm LAV(MOD-bp): 84.3 ml LVAd ap4: 23.1 cm2 LAV(MOD-bp) Indexed: 42.9 ml/m2 EDV(MOD-sp4): 64.3 ml LAV(MOD-sp2): 70.3 ml EDV(sp4-el): 65.6 ml LAV(MOD-sp4): 94.8 ml LVAs ap4: 16.5 cm2 ESV(MOD-sp4): 38.7 ml ESV(sp4-el): 37.3 ml EF(MOD-sp4): 39.8 % EF(sp4-el): 43.1 % SV(MOD-sp4): 25.6 ml SV(sp4-el): 28.3 ml Aortic Valve Planimetry: 1.2 cm2 LA A4 area: 28.9 cm2 LA dimension(2D): 4.8 cm RA A4 area: 19.2 cm2 Time Measurements MV dec time: 0.20 sec Doppler Measurements & Calculations MV E max luis carlos: 145.2 cm/sec Ao V2 max: 208.3 cm/sec LV V1 max: 61.2 cm/sec Ao max P.4 mmHg LV V1 max P.5 mmHg Ao V2 mean: 153.4 cm/sec LV V1 mean P.86 mmHg Ao mean P.1 mmHg LV V1 mean: 44.0 cm/sec Ao V2 VTI: 42.8 cm LV V1 VTI: 14.3 cm KAVON(I,D): 1.2 cm2 KAVON(V,D): 1.1 cm2 SV(LVOT): 52.5 ml PA V2 max: 41.0 cm/sec TR max luis carlos: 294.9 cm/sec TR max P.2 mmHg Interpretation Summary Normal LV size. Left ventricular systolic function is normal. Moderate focal aortic valve calcification. The estimated ejection fraction is 60 %. Diastolic function is indeterminate. Ordering Physician: Jovanni Rodney Referring Physician: STEPHEN SCHUSTER Performed By: Christine Barnett, RDCS, RVT
--- NOTE | 2020-03-15 18:26 | STRESSREP ---
Stress Test Report Pharmacologic myocardial perfusion stress test. 75-year-old man with a history of coronary artery disease. Stress protocol: Resting EKG demonstrates atrial fibrillation with a rate of 86 bpm normal intervals are noted resting blood pressure is 136/70 mmHg. 0.4 mg of regadenoson was infused per usual protocol followed by rapid intravenous saline flush injection continuous EKG monitoring was performed. The maximum heart rate attained was 98 bpm which was 68% of max impacted heart rate the maximum workload was 1 metabolic equivalent. At rest there were no ST or T wave changes noted to suggest abnormal flow reserve at peak infusion nonspecific ST-T wave changes were noted to suggest abnormal flow reserve. Myocardial perfusion protocol. 11.6 mCi of technetium 99m sestamibi was injected at rest. 0.4 mg of regadenoson was infused per usual protocol peak infusion 36.0 mCi of technetium 99m sestamibi was injected stress images were obtained stress and rest images were reconstructed and compared in the short axis vertical long horizontal long axis. Gated images were also obtained. Perfusion SPECT analysis: Review of the stress images demonstrate normal uptake of tracer noted in all areas of the myocardium the resting images similarly demonstrate normal uptake of tracer noted in all areas of the myocardium. No reversibility is noted suggest ischemia. Gated SPECT analysis: The gated ejection fraction is 62%. Conclusion: Normal pharmacologic myocardial perfusion stress test. Preserved ejection fraction. Atrial fibrillation noted.
== END ==
PROVIDERS: PCP Family Medicine; Referring Provider Internal Medicine Cardiovascular Disease; Visit Provider Internal Medicine Cardiovascular Disease
DX: I25.10 Atherosclerotic heart disease of native coronary artery without angina pectoris (principal); I48.19 Other persistent atrial fibrillation; Z95.5 Presence of coronary angioplasty implant and graft
CPT/HCPCS: 78452; 93017; 93306; A9500; A4216; J2785

== ENCOUNTER → 2020-04-17 14:10 | Outpatient (CLI) | payer MEDICARE, OTHER, SELFPAY ==
[2020-04-17 17:54] LABS: Absolute Lymphocyte Count 1.55 X10^3/uL (0.83-4.51); Absolute Neutrophil Count 5.3 X10^3/uL (2.0-7.7); Basophil# 0.04 X10^3/uL; Basophil% 0.5 % (0-1); Eosinophil# 0.09 X10^3/uL; Eosinophils% 1.2 % (0-5); Hemoglobin 14.8 g/dL (13.0-16.5); Lymphocyte # 1.55 X10^3/ul (4.0); Lymphocyte % 20.6 % (19-41); Mean Corp Hgb Conc 32.2 g/dL (32-36); Mean Corpuscular Hgb 29.8 pg (27.0-32.0); Mean Corpuscular Volume 92.7 fL (80-94); Monocyte# 0.55 X10^3/uL; Monocyte% 7.3 % (0-10); NRBC Flagged by Analyzer 0 % (0-5); Neutrophil # 5.29 X10^3/uL (2.7-7.7); Neutrophil % 70.1 % (47-70); Platelet Count 245 K/mm3 (150-450); RBC Distribution Width CV 11.6 % (11.6-14.6); RBC Distribution Width SD 39.6 fl (35.1-43.9); Red Blood Count 4.96 M/mm3 (4.6-6.2); White Blood Count 7.5 K/mm3 (4.4-11.0)
[2020-04-17 18:20] LABS: ALB/GLOB Ratio 1.3 RATIO (0.9-2.4); AST(SGOT) 16 U/L (15-37); Alanine Aminotransfer ALT/SGPT 23 U/L (16-61); Albumin, Serum 3.8 g/dL (3.2-5.0); Alkaline Phosphatase 60 U/L (45-117); Anion Gap 10 (5-15); BUN 13 mg/dL (7-18); BUN/Creat Ratio 11.9 RATIO (10-20); Calcium,Total 8.7 mg/dL (8.5-10.1); Chloride 102 mmol/L (98-107); Cholesterol 111 mg/dL (200); Creatinine, Serum 1.09 mg/dL (0.70-1.30); EST Glomerular Filtration Rate 70 mL/min (>60); Est Glom Filt Rate - Afr Amer 84 mL/min (>60); Globulin 2.9 g/dL (2.2-4.2); Glucose 98 mg/dL (74-106); High Density Lipoprotein 58 mg/dL; Potassium 3.9 mmol/L (3.5-5.1); Protein, Total 6.7 g/dL (6.4-8.2); Sodium Level 138 mmol/L (136-145); Triglycerides 92 mg/dL; Very Low Density Lipoprotein 18 mg/dL (5-40)
[2020-04-17 18:26] LABS: Vitamin D,25 Hydroxy 44.8 ng/mL
[2020-04-17 19:13] LABS: Hemoglobin A1c 6.7 % (3.8-5.6)
== END ==
PROVIDERS: PCP Family Medicine; Referring Provider Family Medicine; Visit Provider Family Medicine
DX: E11.9 Type 2 diabetes mellitus without complications (principal); I25.10 Atherosclerotic heart disease of native coronary artery without angina pectoris; E55.9 Vitamin D deficiency, unspecified; E78.5 Hyperlipidemia, unspecified
CPT/HCPCS: 36415; 80053; 80061; 82306; 83036; 85025

== ENCOUNTER → 2020-04-18 11:14 | Outpatient (CLI) | payer MEDICARE, OTHER, SELFPAY ==
[2020-04-18 13:02] LABS: Microalbumin,Random Urine 96.9 mg/L (NO RANGE EST.); Microalbumin:Creatinine Ratio 137.8 mg/g CRE (<30 mg/g CRE)
== END ==
PROVIDERS: PCP Family Medicine; Referring Provider Family Medicine; Visit Provider Family Medicine
DX: E11.9 Type 2 diabetes mellitus without complications (principal)
CPT/HCPCS: 82043; 82570

== ENCOUNTER 2020-05-11 09:39 | Emergency (ER) | payer MEDICARE, OTHER, SELFPAY ==
[2020-05-11] VITALS (11 sets, daily range): BP systolic 127–155; BP diastolic 74–117; PULSE 71–90; RESP 16–19; TEMP 36.2; O2SAT 97–99; BMI 24.4
--- NOTE | 2020-05-11 10:11 | ED.VIS.GEN ---
History of Present Illness Chief Complaint: Neuro S/Sx Informant: Patient, Family Narrative: 75-year-old male with history of diabetes, CAD, OH with stent, hyperlipidemia, hypertension presenting with confusional state which occurred on Friday at 9 AM. Patient's states that initially they were having breakfast and he started to mess with his brother which she states is not abnormal. He was trying to get him to finish eating so that he could leave. She states this escalated and he started talking in a strange voice and acting odd. She states that he was becoming belligerent and acting not himself. They were able to get him into the car although he was resistant physically. She states the whole episode lasted about 15 minutes. There was no slurred speech. There was no facial droop. He has not had a return of the symptoms. He then called his PCP when they returned home from [place] and he said he wanted him to come to be evaluated for a stroke. Patient has not had any return of the symptoms and is currently - Past Medical History (1) Nonrheumatic aortic (valve) stenosis Status: Chronic (2) Persistent atrial fibrillation Status: Chronic (3) History of non-ST elevation myocardial infarction (NSTEMI) Status: Resolved (4) History of coronary artery stent placement Status: Resolved Comment: PCI-ROSAS-Mid LAD w/ 2.5 x 30 mm and 2.5 x 18 mm w/ Resolute Rx Stent 08/26/16 (5) Chronic diastolic (congestive) heart failure Status: Chronic (6) Essential (primary) hypertension Status: Chronic (7) Hyperlipidemia Status: Chronic Past Medical History - Allergies and Home Meds Allergies/Adverse Reactions: Allergies carbamazepine [From Tegretol] Allergy (Verified 05/11/20 09:42) Rash Primary Care Physician: Jerry Dee MD [Primary Care Provider] - Prior records reviewed: Yes Past Medical History: - - Reviewed in problem list Surgical History: herniorrhaphy - Ventral and right inguinal hernia repair 05/24/19, TURP - The extent Lives: Spouse/ Significant Other Smoking Status: Never smoker Alcohol: None Drugs: None Review of Systems General: Denies: Chills, Fever, Sweats Eyes: Denies: Visual changes - bilaterally, Diplopia ENT: Denies: Rhinorrhea, Sore throat Cardiovascular: Denies: Chest pain, Palpitations Respiratory: Denies: Dyspnea, Cough, Dyspnea on exertion Gastrointestinal: Denies: Abdominal pain, Nausea, Vomiting, Diarrhea, Melena, Hematochezia Genitourinary: Denies: Dysuria, Hematuria, Frequency Musculoskeletal: Denies: Back pain, Extremity Pain Skin: Denies: Rash, Wounds Neurological: Reports: - - Odd behavior lasting 15 minutes.. Denies: Headache, Weakness, Parasthesia Psych: Denies: Depression, Anxiety Physical Exam Vital Signs/Narrative: Vital Signs Temp Pulse Resp BP Pulse Ox 05/11/20 09:42 97.1 F L 84 16 141/74 H 97 General: Well nourished, No Acute Distress Head: Normocephalic, Atraumatic Eyes: Perrl, EOMI ENT: Moist mucous membranes, No rhinorrhea Cardiovascular: Regular rate, Regular rhythm Respiratory: No distress, CTA bilaterally Extremities: Nontender, No edema Skin: Normal color, No rash Neurological: Alert, Oriented x3, Cranial nerves II-XII grossly intact, - - NIH is 0 Psychological: Normal affect, Normal Mood Diagnostic/Tx/Re-eval Clinical Impression(s) from Imaging Studies Brain CT 05/11/20 10:11 IMPRESSION: Chronic involutional changes of the brain. Electronically Signed: Angel Russell MD at 11:15 EDT Tel , Service support , Chest X-Ray 05/11/20 10:11 IMPRESSION: Normal x-ray examination of the chest. Electronically Signed: Angel Russell MD at 11:15 EDT Tel , Service support , Laboratory Data 05/11/20 05/11/20 05/11/20 10:33 10:33 10:33 WBC 5.5 RBC 4.85 Hgb 14.5 Hct 46.1 MCV 95.1 H MCH 29.9 MCHC 31.5 L RDW Std Deviation 41.5 RDW Coeff of Danis 11.9 Plt Count 213 MPV 9.3 Immature Gran % (Auto) 0.200 Neut % (Auto) 58.3 Lymph % (Auto) 29.7 Kleberg % (Auto) 9.3 Eos % (Auto) 1.8 Baso % (Auto) 0.7 Absolute Neuts (auto) 3.2 Absolute Lymphs (auto) 1.63 Nucleated RBC % 0 PT 14.3 INR 1.2 APTT 32.5 Sodium 142 Potassium 4.0 Chloride 109 H Carbon Dioxide 27.0 Anion Gap 6 BUN 17 Creatinine 1.17 Estim Creat Clear Calc 56.31 Est GFR (MDRD) Af Amer 78 Est GFR (MDRD) Non-Af 64 BUN/Creatinine Ratio 14.5 Glucose 85 Calcium 9.1 Troponin I < 0.015 POC Glucose 05/11/20 11:48 WBC RBC Hgb Hct MCV MCH MCHC RDW Std Deviation RDW Coeff of Danis Plt Count MPV Immature Gran % (Auto) Neut % (Auto) Lymph % (Auto) Kleberg % (Auto) Eos % (Auto) Baso % (Auto) Absolute Neuts (auto) Absolute Lymphs (auto) Nucleated RBC % PT INR APTT Sodium Potassium Chloride Carbon Dioxide Anion Gap BUN Creatinine Estim Creat Clear Calc Est GFR (MDRD) Af Amer Est GFR (MDRD) Non-Af BUN/Creatinine Ratio Glucose Calcium Troponin I POC Glucose 72 - EKG Initial EKG Interpretation: Atrial Fibrillation - 89 BPM - Medical Decision Making 75-year-old male presenting after an episode of bizarre behavior although he had no focal neurologic deficits he was talking in a strange voice and dictated. He does state that he had a fall but also states that he has half of the foot that usually if he pivots wrong he can fall down. He denies any injury. He did not strike his head when he fell. He is on blood thinners. His initially thought maybe he had a seizure episode however since he remembers the whole episode I do not believe this is the case. CT brain today is negative. Lab work is normal. EKG is A. fib at 89 bpm with a history of A. fib. Patient has not had return of his symptoms since that time. I discussed this with Dr. Dee who is his PCP who agreed that he can be followed up outpatient. Patient was amenable to this plan. He will be discharged home in stable condition. Impression: 1. Abnormal behavior resolved ED Disposition - Plan for ED Patient: Disposition: Home or Assisted Living Instructions: ED ALOC Referrals: Jerry Dee MD [Primary Care Provider] -
--- NOTE | 2020-05-11 10:11 | EKG12_ITS ---
Test Reason : NEUROS/SX Blood Pressure : / mmHG Vent. Rate : 089 BPM Atrial Rate : 300 BPM P-R Int : 000 ms QRS Dur : 106 ms QT Int : 340 ms P-R-T Axes : 000 -27 025 degrees QTc Int : 413 ms Atrial fibrillation Inferior infarct , age undetermined Possible Anterior infarct , age undetermined Abnormal ECG Confirmed by BARB NG, MALIKA ([id number]), offline editor SANDY GOMES ([id number]) on 05/17/2020 10:56:43 AM Referred By: JUVE/JOSE Confirmed By:BAUTISTA DAY MD
--- NOTE | 2020-05-11 10:11 | CT_ITS ---
STUDY: CT BRAIN WITHOUT CONTRAST REASON FOR EXAM: Male, 75 years old. ALTERED MENTAL STATUS, CONFUSION/AGGRESSIVE ON JENNIFER, FALL, HX SEIZURES RADIATION DOSAGE (If Supplied By Facility): CTDIvol = ( 44.99 ) mGy, DLP = ( 829.85 ) mGycm TECHNIQUE: Transaxial CT imaging of the brain was performed without administration of intravenous contrast material. Individualized dose optimization techniques were used for this CT. COMPARISON: No relevant priors. FINDINGS: Normal soft tissue structures. Normal calvarium. There is moderate cerebral atrophy with widening of the extra-axial spaces and ventricular dilatation. There are areas of decreased attenuation within the white matter tracts of the supratentorial brain, consistent with microvascular disease changes. Normal basal ganglia and thalami. Normal brainstem. Normal cerebellum. There is no intracranial hemorrhage. There are no findings of an acute ischemic infarction. Mucous retention cyst left sphenoid sinus consistent with chronic sinusitis. CT/Brain/Head without Contrast IMPRESSION: Chronic involutional changes of the brain. Electronically Signed: Angel Russell MD at 11:15 EDT Tel , Service support ,
--- NOTE | 2020-05-11 10:11 | RAD_ITS ---
STUDY: X-RAY CHEST REASON FOR EXAM: Male, 75 years old. EPISODE ON FRIDAY AT [facility] WHERE WE WAS TALKING STRANGE AND UNABLE TO CONTROL FACIAL EXPRESSION AND MOVMENT FOR ABOUT [address] OUT OF [facility] PT FELL AND WAS CONFUSED AND AGGRESSIVE. HX SIEZURES. STATES SEIZURES HE DOESNT USUALLY REMEMBER BUT HE REMEMBERED WHOLE EPISODE. SLOWLY CAME BACK AROUND. ASYMPTOMATIC SINCE TECHNIQUE: Single AP portable view of the chest. COMPARISON: 08/24/2019 FINDINGS: The lungs are clear and expanded. There is no demonstrated pleural abnormality. Normal size heart. Normal mediastinum and jessica. Normal visualized pulmonary arteries. Normal visualized aortic arch and descending thoracic aorta. Normal visualized thoracic spine. Normal visualized ribs, clavicles, and shoulders. There is no demonstrated abnormality of the visualized soft tissue structures of the upper abdomen. RAD/Chest 1 View IMPRESSION: Normal x-ray examination of the chest. Electronically Signed: Angel Russell MD at 11:15 EDT Tel , Service support ,
[2020-05-11 10:40] LABS: Absolute Lymphocyte Count 1.63 X10^3/uL (0.83-4.51); Absolute Neutrophil Count 3.2 X10^3/uL (2.0-7.7); Basophil# 0.04 X10^3/uL; Basophil% 0.7 % (0-1); Eosinophils% 1.8 % (0-5); Hematocrit 46.1 % (40-54); Hemoglobin 14.5 g/dL (13.0-16.5); Lymphocyte # 1.63 X10^3/ul (4.0); Lymphocyte % 29.7 % (19-41); Mean Corp Hgb Conc 31.5 g/dL (32-36); Mean Corpuscular Hgb 29.9 pg (27.0-32.0); Mean Corpuscular Volume 95.1 fL (80-94); Mean Platelet Vol. 9.3 fl (6.2-12.0); Monocyte# 0.51 X10^3/uL; Monocyte% 9.3 % (0-10); NRBC Flagged by Analyzer 0 % (0-5); Neutrophil % 58.3 % (47-70); Platelet Count 213 K/mm3 (150-450); RBC Distribution Width CV 11.9 % (11.6-14.6); RBC Distribution Width SD 41.5 fl (35.1-43.9); Red Blood Count 4.85 M/mm3 (4.6-6.2); White Blood Count 5.5 K/mm3 (4.4-11.0)
[2020-05-11 10:50] LABS: International Normalized Ratio 1.2; Prothrombin Time (Protime)PT. 14.3 SECONDS (11.7-14.9)
[2020-05-11 10:51] LABS: Partial Thromboplast Time 32.5 Seconds (24.1-36.2)
[2020-05-11 10:58] LABS: Anion Gap 6 (5-15); BUN 17 mg/dL (7-18); BUN/Creat Ratio 14.5 RATIO (10-20); Calcium,Total 9.1 mg/dL (8.5-10.1); Chloride 109 mmol/L (98-107); Creatinine, Serum 1.17 mg/dL (0.70-1.30); EST Glomerular Filtration Rate 64 mL/min (>60); Est Glom Filt Rate - Afr Amer 78 mL/min (>60); Estimated Creatinine Clearance 56.31 ml/min; Glucose 85 mg/dL (74-106); Sodium Level 142 mmol/L (136-145)
[2020-05-11 12:31] LABS: Bedside Glucose 72 mg/dL (70-110)
== END 2020-05-11 13:34 | disposition home or self-care (01) ==
PROVIDERS: Emergency Provider Student in an Organized Health Care Education/Training Program; PCP Family Medicine
DX: R41.0 Disorientation, unspecified (principal); I25.10 Atherosclerotic heart disease of native coronary artery without angina pectoris; E11.9 Type 2 diabetes mellitus without complications; E78.5 Hyperlipidemia, unspecified; I48.91 Unspecified atrial fibrillation; I50.32 Chronic diastolic (congestive) heart failure; Z79.82 Long term (current) use of aspirin; Z95.5 Presence of coronary angioplasty implant and graft; Z79.4 Long term (current) use of insulin
CPT/HCPCS: 70450; 71045; 80048; 82962; 84484; 85025; 85610; 85730; 93005; 96374; 99283; A4216

== ENCOUNTER → 2020-06-13 08:55 | Outpatient (CLI) | payer MEDICARE, OTHER, SELFPAY ==
[2020-05-11 10:50] VITALS: BMI 24.4
--- NOTE | 2020-06-13 08:57 | AAVD_ITS ---
Reason For Study: Atherosclerosis Aorta Measurements Aorta Doppler Measurements Proximal aorta measures1.27 x 1.25cm. in cross- Peak systolic flow velocities within the proximal sectional axis. aorta measure 42.1 cm/sec. Proximal aorta measures1.33cm. in longitudinal Peak systolic flow velocities within the mid aorta axis. measure 52.5 cm/sec. Mid aorta measures1.54 x 1.56cm. in cross- Peak systolic flow velocities within the distal sectional axis. aorta measure 42.1 cm/sec. Mid aorta measures1.56cm. in longitudinal axis. Distal aorta measures1.45 x 1.44cm. in cross- sectional axis. Distal aorta measures1.43cm. in longitudinal axis. Left Iliac Artery Left iliac artery measures 0.95 x 0.95 cm. in the cross-sectional axis. Left iliac artery measures 0.99 cm. in the longitudinal axis. Peak systolic velocity in the left iliac artery measures 45 cm/sec. Right Iliac Artery Right iliac artery measures 0.97 x 0.97 cm. in the cross-sectional axis. Right iliac artery measures 1.02 cm. in the longitudinal axis. Peak systolic velocity in the right iliac artery measures 46.9 cm/sec. Procedure Aorta IVC Iliac vasculature or bypass grafts [id number]. Exam performed in department. Interpretation Summary No aortoiliac stenosis or aneurysm. Ordering Physician: Nikita Jeff Referring Physician: Jerry Dee Performed By: Angela Garcia RVT
--- NOTE | 2020-06-13 08:58 | ART_ITS ---
Reason For Study: Atherosclerosis Procedure A bilateral lower extremity continuous wave Doppler with analog waveform analysis and ankle brachial indexes. Left Segmental Pressures Left brachial= 182mmHg. Left posterior tibial artery = >254mmHg. Left dorsalis pedis artery = 142mmHg. The left dorsalis pedis waveforms are monophasic. The left posterior tibial artery waveforms are monophasic. Right Segmental Pressures Right brachial= 180mmHg. Right posterior tibial artery = >254mmHg. Right dorsalis pedis artery = >254mmHg. Right digit = >254 mmHg. The right dorsalis pedis waveforms are triphasic. The right posterior tibial artery waveforms are triphasic. Indices The right ankle brachial index by the dorsalis pedis is NC. The right ankle brachial index by the posterior tibial artery is NC. The right digital-brachial index is NC. The left ankle brachial index by the dorsalis pedis is 0.78. The left ankle brachial index by the posterior tibial artery is NC. Interpretation Summary Right leg noncompressible and normal triphasic flow. LEft leg PAYAL 0.78 and monopjhasic flow. Ordering Physician: Nikita Jeff Referring Physician: Jerry Dee Performed By: Angela Garcia RVT
--- NOTE | 2020-06-13 08:58 | ADUL_ITS ---
Reason For Study: Atherosclerosis Left Velocities Ext Iliac Artery, dist = 42.9 cm./sec. Common Femoral Artery, mid = 74.2 cm./sec. Supf. Femoral Artery, prox = 65.4 cm./sec. Supf. Femoral Artery, mid = 31.9 cm./sec. Supf. Femoral Artery, dist = 20 cm./sec. Profunda Femoral Artery = 56.6 cm./sec. Popliteal Artery, proximal, = 12.4 cm./sec. Popliteal Artery, mid = 18.2 cm./sec. Popliteal Artery, distal = 17.4 cm./sec. Post. Tibial Artery, prox = 27 cm./sec. Post Tibial Artery, mid = 38.2 cm./sec. Post Tibial Artery, dist. = 37.4 cm./sec. Peroneal Artery, prox = 23.9 cm./sec. Peroneal Artery, mid = 20.7 cm./sec. Peroneal Artery,dist. = 26.6 cm./sec. Ant.Tibial Artery, prox = 8.1 cm./sec. CLAUDIA mid, No flow noted. Ant. Tibial Artery, distal = 25.5 cm./sec. Procedure Exam performed in department. Interpretation Summary No stenosis seen proximally but decreased flow from mid feoral distally. Anterior tibial occluded. Ordering Physician: Nikita Jeff Referring Physician: Jerry Dee Performed By: Angela Garcia RVT
== END ==
PROVIDERS: PCP Family Medicine; Referring Provider Surgery Vascular Surgery; Visit Provider Surgery Vascular Surgery
DX: I70.0 Atherosclerosis of aorta (principal); I77.1 Stricture of artery; I70.212 Atherosclerosis of native arteries of extremities with intermittent claudication, left leg
CPT/HCPCS: 93922; 93926; 93978

== ENCOUNTER → 2020-07-18 17:51 | Outpatient (CLI) | payer MEDICARE, OTHER, SELFPAY ==
[2020-05-11 10:50] VITALS: BMI 24.4
== END ==
PROVIDERS: PCP Family Medicine; Referring Provider Podiatrist; Visit Provider Podiatrist
DX: L03.116 Cellulitis of left lower limb (principal)
CPT/HCPCS: 87070; 87075; 87077; 87186; 87205

== ENCOUNTER 2020-08-01 10:00 | Outpatient (RCR) | payer MEDICARE, OTHER, SELFPAY ==
[2020-05-11 10:50] VITALS: BMI 24.4
[2020-07-25 08:23] VITALS: BP 98/63; PULSE 97; RESP 16; TEMP 36.8; BMI 24.4
--- NOTE | 2020-07-25 10:07 | PCM.WC.HP ---
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 Code(s): L97.422 - Non-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 (3) Non-pressure chronic ulcer of other part of left foot with fat layer exposed Status: Chronic Code(s): L97.522 - Non-pressure chronic ulcer of other part of left foot with fat layer exposed (4) Peripheral vascular occlusive disease Status: Chronic Code(s): I73.9 - Peripheral vascular disease, unspecified Comment: Left above and below the knee popliteal and tibioperoneal trunk atherectomy and angioplasty 06/28/14 Left below the knee popliteal atherectomy w/ angioplasty 12/29/13 History of Present Illness Date of Service: 07/25/20 Chief Complaint: Left heel and lateral foot ulcerations. Cellulitis. Peripheral vascular disease History of Wound: Patient is a 75-year-old male who presents to the wound care center after being seen in office by Dr[facility] for chronic left foot wound. 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 He also has had left posterior heel ulceration. Patient has a scheduled angioplasty intervention with Dr. Jeff for beginning of August. Patient has a history of peripheral vascular disease and has had surgical intervention in the past. Patient is currently taking Augmentin for heel ulcer infection. He states that he only has a couple days left of renewal prescription will be sent to his pharmacy. Patient had cultures obtained in office which showed MSSA. Patient states that he has an offloading boot that he kicks his way out of and wakes him up at night. Patient has not found any other method of offloading to assist during sleeping. Patient has elevated the foot on pillows when sitting in chairs to offload the heel. Patient also has an offloading heel cut out surgical shoe she only wears when he is out of the house. 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) Non-pressure chronic ulcer of other part of left foot with fat layer exposed (Chronic) Nonrheumatic aortic (valve) stenosis (Chronic) Persistent atrial fibrillation (Chronic) Atherosclerosis of coronary artery of [place] heart without angina pectoris (Chronic) Chronic diastolic (congestive) heart failure (Chronic) Essential (primary) hypertension (Chronic) Hyperlipidemia (Chronic) Peripheral vascular occlusive disease (Chronic) Left above and below the knee popliteal and tibioperoneal trunk atherectomy and angioplasty 06/28/14 Left below the knee popliteal atherectomy w/ angioplasty 12/29/13 Surgical History: herniorrhaphy - Ventral and right inguinal hernia repair 05/24/19, TURP - [facility] Allergies/Adverse Reactions: Allergies carbamazepine [From Tegretol] Allergy (Verified 07/25/20 08:32) Rash Home Medications: Ambulatory Orders Medication Instructions Recorded atorvastatin 80 mg tablet 80 mg PO QHS 07/21/18 cholecalciferol (vitamin D3) 50 2,000 unit PO DAILY 07/21/18 mcg (2,000 unit) capsule cinnamon bark 500 mg capsule 1 cap PO QHS cap 07/21/18 lamotrigine 200 mg tablet 200 mg PO BID 07/21/18 lisinopril 5 mg tablet 5 mg PO QHS 07/21/18 metformin 500 mg tablet,extended 1,000 mg PO BID tab 07/21/18 release 24 hr Ascorbic Acid [Vitamin C] 1,000 mg PO QHS 01/06/19 Calcium Carb/Mag Ox/Zinc Sulf 1 ea PO QHS 01/06/19 [Ibefaum-Krpdduzbk-Ikma Tablet] Insulin Aspart [Novolog Flexpen] 8 units SUBCUT DAILY 05/17/19 Insulin Degludec [Tresiba] 12 unit SQ QHS 05/17/19 Metoprolol Tartrate 75 mg PO BID 05/25/19 dapagliflozin 5 mg tablet 5 mg PO DAILY tab 02/29/20 apixaban 2.5 mg tablet 2.5 mg PO BID #180 tab 06/19/20 Smoking Status: Never smoker Review of Systems Constitutional: Denies: Chills, Fever Cardiovascular: Denies: Chest Pain Respiratory: Denies: Shortness of Breath Gastrointestinal: Denies: Diarrhea Musculoskeletal: Reports: Foot Pain - Left Skin: Reports: Wounds - Left heel and left lateral foot Neurological: Reports: Numbness, Tingling Subjective: Patient seen and examined bedside with in the room. He denies any nausea fever vomiting chills chest pain shortness of breath. Patient states that the wound to her heel is still red. states he only has a few tablets of antibiotics left - Physical Exam Vital Signs Temp Pulse Resp BP 98.2 F 97 16 98/63 07/25/20 08:23 07/25/20 08:23 07/25/20 08:23 07/25/20 08:23 General: Alert, Oriented x3 HEENT: Atraumatic Extremities: No clubbing, No cyanosis, Capillary Refill Less than 3 Seconds, No Calf Tenderness, Diminished Peripheral Pulses, Edema, Tenderness Skin: Ulcer/ Wound - Left heel lateral plantar with surrounding callus tissue and erythema no bogginess joints. Left lateral foot ulceration clustered with fibrotic base no surrounding erythema Wound Measurements and Assessment WC - Nurse 1 - General Ulcer Measurement Start: 07/25/20 08:13 Freq: Status: Active Protocol: Activity Type Activity Date Activity User E-Sign Co-Sign Detail Recorded Client Recorded Date Recorded By Document 07/25/20 08:23 [facility] [id number] 07/25/20 08:30 [facility] 07/25/20 08:23 Wound Center Nurse 1 [Ulcer Assessment] #2- L LATERAL FOOT CLUSTER -Combined with other wound No -Current Size (cm) - Length 0.9 -Current Size (cm) - Width 2.2 -Current Size (cm) - Depth 0.1 -Total Square Cm 1.98 -Date of Last Picture (Recall this 07/25/20 field) -Photo Taken Yes -Epithelialization None Present -Tunneling No -Undermining/Tunneling No -Circular Undermining No -Wound Margin Distinct, Outline Attached -Granulation Amt None Present (0 %) -Slough/Fibrin Yes -Necrosis Amt Large (67-100%) -Necrotic Tissue Type Eschar -Texture (Stacy-wound Skin Appearance) Assessed, Scarring -Moisture (Stacy-wound Skin Appearance Assessed ) -Color (Stacy-wound Skin Appearance) Assessed -Temperature (Stacy-wound Skin No Abnormality Appearance) (Pt Warm) -Tenderness on Palpation (Stacy-wound No Skin Appearance) -Ulcer Cleansing Rinsed/ Irrigated with Saline -Foul Odor after Cleansing No -Anesthetic Used 4% Lidocaine Solution #1- L LATERAL HEEL -Combined with other wound No -Current Size (cm) - Length 4.2 -Current Size (cm) - Width 6.1 -Current Size (cm) - Depth 0.1 -Total Square Cm 25.62 -Date of Last Picture (Recall this 07/25/20 field) -Photo Taken Yes -Epithelialization None Present -Tunneling No -Undermining/Tunneling No -Circular Undermining No -Exudate Amt Small -Exudate Type Serosanguineous -Wound Margin Distinct, Outline Attached -Granulation Amt None Present (0 %) -Slough/Fibrin Yes -Necrosis Amt Large (67-100%) -Necrotic Tissue Type Eschar -Texture (Stacy-wound Skin Appearance) Assessed, Scarring -Moisture (Stacy-wound Skin Appearance Assessed ) -Color (Stacy-wound Skin Appearance) Assessed, Erythema -Temperature (Stacy-wound Skin No Abnormality Appearance) (Pt Warm) -Tenderness on Palpation (Stacy-wound Yes Skin Appearance) -Ulcer Cleansing Rinsed/ Irrigated with Saline -Foul Odor after Cleansing No -Anesthetic Used 4% Lidocaine Solution WC - Nurse 2 - General Ulcer CM Notes Start: 07/25/20 08:13 Freq: Status: Active Protocol: Activity Type Activity Date Activity User E-Sign Co-Sign Detail Recorded Client Recorded Date Recorded By Document 07/25/20 08:49 [facility] [id number] 07/25/20 09:06 [facility] 07/25/20 08:49 Wound Center Nurse 2 [Procedure/Treatment] #2- L LATERAL FOOT CLUSTER -Time 08:52 -Correct Patient Yes -Correct Side, Site, Position Yes -Correct Procedure Yes -Procedure Performed Yes -Type of Procedure Debridement -Clinical Debridement Subcutaneous -Tissue Removed Subcutaneous -Post Debridement (cm) - Length 1.1 -Post Debridement (cm) - Width 2.5 -Post Debridement (cm) - Depth 0.4 -Total Square (Post) (cm) 2.75 -Area of Debridement (cm) - Length 1.1 -Area of Debridement (cm) - Width 2.5 -Total Square (Area) (cm) 2.75 -Tunneling No -Undermining/Tunneling No -Circular Undermining No -Wound/Ulcer Outcome Not Healed -Ulcer Cleansing Rinsed/ Irrigated with Saline -Foul Odor after Cleansing No -Bioengineered Tissue No -Bleeding Controlled with Pressure -Offloading Yes -Type of Offloading Surgical Shoe -Treatment Response Procedure Tolerated Well -Debridement - Subq, 1st 20sq cm Yes #1- L LATERAL HEEL -Time 08:56 -Correct Patient Yes -Correct Side, Site, Position Yes -Correct Procedure Yes -Procedure Performed Yes -Type of Procedure Debridement -Clinical Debridement Subcutaneous -Tissue Removed Subcutaneous -Post Debridement (cm) - Length 6.6 -Post Debridement (cm) - Width 2.8 -Post Debridement (cm) - Depth 0.2 -Total Square (Post) (cm) 18.48 -Area of Debridement (cm) - Length 6.6 -Area of Debridement (cm) - Width 2.8 -Total Square (Area) (cm) 18.48 -Tunneling No -Undermining/Tunneling No -Circular Undermining No -Wound/Ulcer Outcome Not Healed -Ulcer Cleansing Rinsed/ Irrigated with Saline -Foul Odor after Cleansing No -Bioengineered Tissue No -Bleeding Controlled with Pressure -Offloading Yes -Type of Offloading Surgical Shoe -Treatment Response Procedure Tolerated Well -Debridement - Subq, 1st 20sq cm No [See Physician Procedure note for Specifics] Pain Scale: 0-10 Numeric [Pain] -Is Patient Pain Free? Yes Musculoskeletal: Tenderness - Left heel Neurological: - - light touch diminished Psych/Mental Status: Normal Affect, Appropriate, Alert and oriented to time, place, person, mood and affect Debridement Note Post-Debridement Measurements/Treatment WC - Nurse 2 - General Ulcer CM Notes Start: 07/25/20 08:13 Freq: Status: Active Protocol: Activity Type Activity Date Activity User E-Sign Co-Sign Detail Recorded Client Recorded Date Recorded By Document 07/25/20 08:49 [facility] [id number] 07/25/20 09:06 [facility] 07/25/20 08:49 Wound Center Nurse 2 #2- L LATERAL FOOT CLUSTER -Time 08:52 -Correct Patient Yes -Correct Side, Site, Position Yes -Correct Procedure Yes -Procedure Performed Yes -Type of Procedure Debridement -Clinical Debridement Subcutaneous -Tissue Removed Subcutaneous -Post Debridement (cm) - Length 1.1 -Post Debridement (cm) - Width 2.5 -Post Debridement (cm) - Depth 0.4 -Total Square (Post) (cm) 2.75 -Area of Debridement (cm) - Length 1.1 -Area of Debridement (cm) - Width 2.5 -Total Square (Area) (cm) 2.75 -Tunneling No -Undermining/Tunneling No -Circular Undermining No -Wound/Ulcer Outcome Not Healed -Ulcer Cleansing Rinsed/ Irrigated with Saline -Foul Odor after Cleansing No -Bioengineered Tissue No -Bleeding Controlled with Pressure -Offloading Yes -Type of Offloading Surgical Shoe -Treatment Response Procedure Tolerated Well -Debridement - Subq, 1st 20sq cm Yes #1- L LATERAL HEEL -Time 08:56 -Correct Patient Yes -Correct Side, Site, Position Yes -Correct Procedure Yes -Procedure Performed Yes -Type of Procedure Debridement -Clinical Debridement Subcutaneous -Tissue Removed Subcutaneous -Post Debridement (cm) - Length 6.6 -Post Debridement (cm) - Width 2.8 -Post Debridement (cm) - Depth 0.2 -Total Square (Post) (cm) 18.48 -Area of Debridement (cm) - Length 6.6 -Area of Debridement (cm) - Width 2.8 -Total Square (Area) (cm) 18.48 -Tunneling No -Undermining/Tunneling No -Circular Undermining No -Wound/Ulcer Outcome Not Healed -Ulcer Cleansing Rinsed/ Irrigated with Saline -Foul Odor after Cleansing No -Bioengineered Tissue No -Bleeding Controlled with Pressure -Offloading Yes -Type of Offloading Surgical Shoe -Treatment Response Procedure Tolerated Well -Debridement - Subq, 1st 20sq cm No Pain Scale: 0-10 Numeric Is Patient Pain Free? Yes Wound debrided: Heel Laterality: Left Wound Grade/Stage: Barker 1 Type of Debridement: Excisional debridement Anesthesia Used: 4% Lidocaine Solution Depth: in the subcutaneous layer Percentage of wound debrided: 100 Instrument Used: 3mm curette Severity: Fat Layer Exposed Amount of bleeding with debridement: Mild Bleeding Controlled with: Pressure Patient tolerated procedure well - Additional Wound Wound debrided: lateral foot Laterality: Left Wound Grade/Stage: barker 2 Type of Debridement: Excisional debridement Anesthesia Used: 4% Lidocaine Solution Depth: in the subcutaneous layer Percentage of wound debrided: 100 Instrument Used: 3mm curette Tissue Removed: Tissue removed includes fibrous, devitalized, biofilm, and slough tissue Severity: Fat Layer Exposed Amount of bleeding with debridement: Mild Bleeding Controlled with: Pressure Patient tolerated procedure: Patient tolerated procedure well Assessment/Plan Active Problems (Last Updated 03/15/20 @ 19:22 by Luz Maria Mcnally) Type 2 diabetes mellitus with foot ulcer (Chronic) 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 Left foot lateral foot ulcer. Left foot cellulitis. History of left transmetatarsal amputation. Diabetes Plan: Patient is referral from Dr. Pelaez at [facility]. Patient seen and examined. Culture from 07/18/2020 shows MSSA. Patient is currently taking Augmentin for cellulitis to the left heel ulceration. Patient is almost out of prescription. Patient had refill sent to pharmacy. Both ulcerations were sharply debrided. Patient is scheduled for vascular intervention with Dr. Jeff in early August 2020. Patient has had previous surgical intervention with Dr. Jeff in the past. He had recent arterial studies on 06/13/20 showing monophasic waveforms and noncompressible bilateral PT and DP on the right with an left PAYAL of 0.78 on left. Discussed at length the importance of offloading with the patient in order to allow proper wound healing. Patient states that he has an offloading shoe at home but is uncomfortable and twists when he tries to wear it while sleeping as he moves in his sleep. Patient does not wear it while sleeping. Discussed with patient the importance of his offloading suggested other alternative methods such as pillows or a doughnut offloading pad. Patient has no interest in this. Again the importance of offloading to allow ulcer to heal. Also discussed the importance of offloading when not sleeping such as in a chair with floating the heel with pillows. Patient also has a surgical shoe with cut out to offload the heel. He states he only wears this when he is out on the town and does not wear it at home. Discussed with patient the importance of proper nutrition and blood sugar control to also aid in wound healing. Patient and educated on proper dressing changes. Dressing changed. Patient is to follow-up in 1 week
[2020-08-01 10:11] VITALS: BP 119/66; PULSE 65; RESP 16; TEMP 37; BMI 24.4
--- NOTE | 2020-08-01 10:52 | PN.PCM_ITS ---
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 Code(s): L97.422 - Non-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 (3) Non-pressure chronic ulcer of other part of left foot with fat layer exposed Status: Chronic Code(s): L97.522 - Non-pressure chronic ulcer of other part of left foot with fat layer exposed (4) Peripheral vascular occlusive disease Status: Chronic Code(s): I73.9 - Peripheral vascular disease, unspecified Comment: Left above and below the knee popliteal and tibioperoneal trunk atherectomy and angioplasty 06/28/14 Left below the knee popliteal atherectomy w/ angioplasty 12/29/13 Type of Wound Date of Service: 08/01/20 Chief Complaint: Left heel and lateral foot ulcerations. Cellulitis. Peripheral vascular disease History of Wound: Patient is a 75-year-old male who presents to the wound care center after being seen in office by Dr. Pisano [facility] for chronic left foot wound. 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 He also has had left posterior heel ulceration. Patient has a scheduled angioplasty intervention with Dr. Jeff for beginning of August. Patient has a history of peripheral vascular disease and has had surgical intervention in the past. Patient is currently taking Augmentin for heel ulcer infection. A renewal for the prescription was sent 07-25-2020. Patient had cultures obtained in office which showed MSSA. Patient states that he has an offloading boot that he kicks his way out of and wakes him up at night. Patient has not found any other method of offloading to assist during sleeping. Patient has elevated the foot on pillows when sitting in chairs to offload the heel. Patient also has an offloading heel cut out surgical shoe she only wears when he is out of the house. When he is in the house patient states that he goes barefoot. Patient reports decrease in pain over the last week Progress of Wound: No change and stable to lateral foot ulceration, lateral heel ulceration is cool to the touch with surrounding erythema concern for lack of blood flow. Patient is scheduled for intervention with Dr. Jeff next Friday Subjective: Patient seen and examined bedside. Patient denies any new pedal complaints. Patient denies any nausea, fever, and chest pain, shortness of breath, chills, cough, streaking, purulence, vomiting. - Physical Exam Vital Signs Temp Pulse Resp BP 98.6 F 65 16 119/66 08/01/20 10:11 08/01/20 10:11 08/01/20 10:11 08/01/20 10:11 General: Alert, Oriented x3 HEENT: Atraumatic Extremities: No clubbing, No cyanosis, Capillary Refill Less than 3 Seconds - To the TMA stump site, No Calf Tenderness, Cool - Lateral left heel wound surrounding periwound area is cool to the touch, rest of the foot is warm, Diminished Peripheral Pulses - Left foot noted to be monophasic on Doppler PT, DP was not able to be found. Patient had recent PVRs which showed DP to be monophasic, Tenderness - to lateral heel and lateral foot ulceration sites Skin: Ulcer/ Wound - Left lateral heel ulceration with necrotic base serous slou ghy drainage, cool to the touch which is new from last week, periwound erythema and edema unchanged, no malodor, no purulence, does not probe to bone, no fluctuance or bogginess noted, - - Left lateral foot ulceration. No malodor, erythema, purulence, probing to bone, or other signs of infection. Necrotic base predebridement, granular base upon debridement with serosanguineous drainage, warm to the touch Wound Measurements and Assessment WC - Nurse 1 - General Ulcer Measurement Start: 07/25/20 08:13 Freq: Status: Active Protocol: Activity Type Activity Date Activity User E-Sign Co-Sign Detail Recorded Client Recorded Date Recorded By Document 08/01/20 10:11 DL [id number] 08/01/20 10:20 DL 08/01/20 10:11 Wound Center Nurse 1 [Ulcer Assessment] #2- L LATERAL FOOT CLUSTER -Combined with other wound No -Current Size (cm) - Length 0.8 -Current Size (cm) - Width 0.6 -Current Size (cm) - Depth 0.2 -Total Square Cm 0.48 -Photo Taken No -Epithelialization None Present -Tunneling No -Undermining/Tunneling No -Circular Undermining No -Exudate Amt None Present -Wound Margin Distinct, Outline Attached -Granulation Amt None Present (0 %) -Slough/Fibrin Yes -Necrosis Amt Large (67-100%) -Necrotic Tissue Type Eschar -Texture (Stacy-wound Skin Appearance) Assessed, Scarring -Moisture (Stacy-wound Skin Appearance Assessed ) -Color (Stacy-wound Skin Appearance) Assessed, Erythema -Temperature (Stacy-wound Skin No Abnormality Appearance) (Pt Warm) -Tenderness on Palpation (Stacy-wound No Skin Appearance) -Ulcer Cleansing Rinsed/ Irrigated with Saline -Foul Odor after Cleansing No -Anesthetic Used 4% Lidocaine Solution #1- L LATERAL HEEL -Combined with other wound No -Current Size (cm) - Length 2.8 -Current Size (cm) - Width 5.2 -Current Size (cm) - Depth 0.1 -Total Square Cm 14.56 -Photo Taken No -Epithelialization None Present -Tunneling No -Undermining/Tunneling No -Circular Undermining No -Exudate Amt Small -Exudate Type Serosanguineous -Wound Margin Distinct, Outline Attached -Granulation Amt None Present (0 %) -Slough/Fibrin Yes -Necrosis Amt Large (67-100%) -Necrotic Tissue Type Eschar -Texture (Stacy-wound Skin Appearance) Assessed, Scarring -Moisture (Stacy-wound Skin Appearance Assessed ) -Color (Stacy-wound Skin Appearance) Assessed, Erythema -Temperature (Stacy-wound Skin No Abnormality Appearance) (Pt Warm) -Tenderness on Palpation (Stacy-wound No Skin Appearance) -Ulcer Cleansing Rinsed/ Irrigated with Saline -Foul Odor after Cleansing No -Anesthetic Used 4% Lidocaine Solution WC - Nurse 2 - General Ulcer CM Notes Start: 07/25/20 08:13 Freq: Status: Active Protocol: Activity Type Activity Date Activity User E-Sign Co-Sign Detail Recorded Client Recorded Date Recorded By Document 08/01/20 10:44 OPAL [id number] 08/01/20 10:49 OPAL 08/01/20 10:44 Wound Center Nurse 2 [Procedure/Treatment] #2- L LATERAL FOOT CLUSTER -Time 10:44 -Correct Patient Yes -Correct Side, Site, Position Yes -Correct Procedure Yes -Procedure Performed Yes -Type of Procedure Debridement -Clinical Debridement Subcutaneous -Tissue Removed Subcutaneous -Post Debridement (cm) - Length 0.8 -Post Debridement (cm) - Width 2.3 -Post Debridement (cm) - Depth 0.2 -Total Square (Post) (cm) 1.84 -Area of Debridement (cm) - Length 0.8 -Area of Debridement (cm) - Width 2.3 -Total Square (Area) (cm) 1.84 -Tunneling No -Undermining/Tunneling No -Circular Undermining No -Wound/Ulcer Outcome Not Healed -Ulcer Cleansing Rinsed/ Irrigated with Saline -Foul Odor after Cleansing No -Bioengineered Tissue No -Bleeding Controlled with Pressure -Offloading Yes -Type of Offloading Surgical Shoe -Treatment Response Procedure Tolerated Well -Debridement - Subq, 1st 20sq cm Yes #1- L LATERAL HEEL -Time 10:44 -Correct Patient Yes -Correct Side, Site, Position Yes -Correct Procedure Yes -Procedure Performed Yes -Type of Procedure Debridement -Clinical Debridement Subcutaneous -Tissue Removed Subcutaneous -Post Debridement (cm) - Length 2.6 -Post Debridement (cm) - Width 6.6 -Post Debridement (cm) - Depth 0.2 -Total Square (Post) (cm) 17.16 -Area of Debridement (cm) - Length 2.6 -Area of Debridement (cm) - Width 6.6 -Total Square (Area) (cm) 17.16 -Tunneling No -Undermining/Tunneling No -Circular Undermining No -Wound/Ulcer Outcome Not Healed -Ulcer Cleansing Rinsed/ Irrigated with Saline -Foul Odor after Cleansing No -Bioengineered Tissue No -Bleeding Controlled with Pressure -Offloading Yes -Type of Offloading Surgical Shoe -Treatment Response Procedure Tolerated Well -Debridement - Subq, 1st 20sq cm No [See Physician Procedure note for Specifics] Pain Scale: 0-10 Numeric [Pain] -Is Patient Pain Free? Yes Musculoskeletal: Muscle Wasting, Tenderness - 2 ulceration sites, - - Left transmetatarsal amputation Neurological: - - Lack of epicritic sensation consistent with neuropathy Psych/Mental Status: Normal Affect, Appropriate, Alert and oriented to time, p lace, person, mood and affect Debridement Note Post-Debridement Measurements/Treatment WC - Nurse 2 - General Ulcer CM Notes Start: 07/25/20 08:13 Freq: Status: Active Protocol: Activity Type Activity Date Activity User E-Sign Co-Sign Detail Recorded Client Recorded Date Recorded By Document 07/25/20 08:49 JF [id number] 07/25/20 09:06 JF Document 08/01/20 10:44 [id number] 08/01/20 10:49 07/25/20 08/01/20 08:49 10:44 Wound Center Nurse 2 #2- L LATERAL FOOT CLUSTER -Time 08:52 10:44 -Correct Patient Yes Yes -Correct Side, Site, Position Yes Yes -Correct Procedure Yes Yes -Procedure Performed Yes Yes -Type of Procedure Debridement Debridement -Clinical Debridement Subcutaneous Subcutaneous -Tissue Removed Subcutaneous Subcutaneous -Post Debridement (cm) - Length 1.1 0.8 -Post Debridement (cm) - Width 2.5 2.3 -Post Debridement (cm) - Depth 0.4 0.2 -Total Square (Post) (cm) 2.75 1.84 -Area of Debridement (cm) - Length 1.1 0.8 -Area of Debridement (cm) - Width 2.5 2.3 -Total Square (Area) (cm) 2.75 1.84 -Tunneling No No -Undermining/Tunneling No No -Circular Undermining No No -Wound/Ulcer Outcome Not Healed Not Healed -Ulcer Cleansing Rinsed/ Rinsed/ Irrigated with Irrigated with Saline Saline -Foul Odor after Cleansing No No -Bioengineered Tissue No No -Bleeding Controlled with Pressure Pressure -Offloading Yes Yes -Type of Offloading Surgical Shoe Surgical Shoe -Treatment Response Procedure Procedure Tolerated Well Tolerated Well -Debridement - Subq, 1st 20sq cm Yes Yes #1- L LATERAL HEEL -Time 08:56 10:44 -Correct Patient Yes Yes -Correct Side, Site, Position Yes Yes -Correct Procedure Yes Yes -Procedure Performed Yes Yes -Type of Procedure Debridement Debridement -Clinical Debridement Subcutaneous Subcutaneous -Tissue Removed Subcutaneous Subcutaneous -Post Debridement (cm) - Length 6.6 2.6 -Post Debridement (cm) - Width 2.8 6.6 -Post Debridement (cm) - Depth 0.2 0.2 -Total Square (Post) (cm) 18.48 17.16 -Area of Debridement (cm) - Length 6.6 2.6 -Area of Debridement (cm) - Width 2.8 6.6 -Total Square (Area) (cm) 18.48 17.16 -Tunneling No No -Undermining/Tunneling No No -Circular Undermining No No -Wound/Ulcer Outcome Not Healed Not Healed -Ulcer Cleansing Rinsed/ Rinsed/ Irrigated with Irrigated with Saline Saline -Foul Odor after Cleansing No No -Bioengineered Tissue No No -Bleeding Controlled with Pressure Pressure -Offloading Yes Yes -Type of Offloading Surgical Shoe Surgical Shoe -Treatment Response Procedure Procedure Tolerated Well Tolerated Well -Debridement - Subq, 1st 20sq cm No No Pain Scale: 0-10 Numeric Is Patient Pain Free? Yes Yes Wound debrided: Lateral heel Laterality: Left Wound Grade/Stage: Barker 2 Type of Debridement: Excisional debridement Anesthesia Used: 4% Lidocaine Solution Depth: in the subcutaneous layer Percentage of wound debrided: 100 Instrument Used: #15 blade Tissue Removed: Tissue removed includes fibrous, devitalized, biofilm, and slough tissue Severity: Fat Layer Exposed Amount of bleeding with debridement: Mild Bleeding Controlled with: Pressure Patient tolerated procedure well Necrotic tissue noted and debrided with serous soupy drainage noted and wound is cool to the touch - Additional Wound Wound debrided: Lateral foot Laterality: Left Wound Grade/Stage: Barker 2 Type of Debridement: Excisional debridement Anesthesia Used: 4% Lidocaine Solution Depth: in the subcutaneous layer Percentage of wound debrided: 100 Instrument Used: #15 blade Tissue Removed: Tissue removed includes fibrous, devitalized, biofilm, and slough tissue Severity: Fat Layer Exposed Amount of bleeding with debridement: Mild Bleeding Controlled with: Pressure Patient tolerated procedure: Patient tolerated procedure well Assessment/Plan Active Problems (Last Updated 03/15/20 @ 19:22 by Luz Maria Mcnally) Type 2 diabetes mellitus with foot ulcer (Chronic) 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 Left foot lateral foot ulcer. Left foot cellulitis. History of left transmetatarsal amputation. Diabetes. peripheral vascular disease Plan: Patient is referral from Dr. Pelaez at the [facility]. Patient seen and examined. Culture from 07/18/2020 shows MSSA. Patient is currently taking Augmentin for cellulitis to the left heel ulceration. Refill was given at last appointment. Both ulcerations were sharply debrided today. Patient is scheduled for vascular intervention with Dr. Jeff in August 08, 2020. Patient has had previous surgical intervention with Dr. Jeff in the past. Discussed with the patient at length that the lateral heel ulceration is cool to the touch now and is likely due to a inadequate supply of blood to the area. This will prevent wound healing. Discussed with the patient that we need to keep wound stable until intervention by Dr. Jeff can be done next week. We will follow results of the surgery. Patient is contact if anything changes or if questions or concerns arise. He had recent arterial studies on 06/13/20 showing monophasic waveforms and noncompressible bilateral PT and DP on the right with an left PAYAL of 0.78 on left. Discussed at length the importance of offloading with the patient in order to allow proper wound healing. Patient states that he has an offloading shoe at home but is uncomfortable and twists when he tries to wear it while sleeping as he moves in his sleep. Patient does not wear it while sleeping. Discussed with patient the importance of his offloading suggested other alternative methods such as pillows or a doughnut offloading pad. Patient has no interest in this. Again the importance of offloading to allow ulcer to heal. Also discussed the importance of offloading when not sleeping such as in a chair with floating the heel with pillows. Patient also has a surgical shoe with cut out to offload the heel. He states he only wears this when he is out on the town and does not wear it at home. Discu ssed with patient the importance of proper nutrition and blood sugar control to also aid in wound healing. Patient reports a spike in his blood sugar over the last week to around 300. Patient has tried a protein supplement that contains carbs to increase the protein that he is getting and as well as some changes in his diabetes medications both might be contributing to increase in blood sugar. Patient and educated on proper dressing changes. Dressing changed. Patient to continue daily dressing changes with Santyl to the lateral foot wound and Betadine to the lateral heel wound. Heel is to be well-padded covered with a dry sterile dressing to entire foot. Patient is to follow-up in 1 week in office due to procedure next Friday. Patient will resume care at the wound care center the following week
== END 2020-08-03 23:59 ==
LOC: WC 10:00
PROVIDERS: PCP Family Medicine; Referring Provider Podiatrist; Visit Provider Podiatrist Foot & Ankle Surgery
DX: E11.51 Type 2 diabetes mellitus with diabetic peripheral angiopathy without gangrene (principal); E11.621 Type 2 diabetes mellitus with foot ulcer; L97.522 Non-pressure chronic ulcer of other part of left foot with fat layer exposed; L97.422 Non-pressure chronic ulcer of left heel and midfoot with fat layer exposed; I25.10 Atherosclerotic heart disease of native coronary artery without angina pectoris; I11.0 Hypertensive heart disease with heart failure; I50.32 Chronic diastolic (congestive) heart failure; L03.116 Cellulitis of left lower limb; E78.5 Hyperlipidemia, unspecified; Z79.899 Other long term (current) drug therapy; Z79.4 Long term (current) use of insulin; Z79.01 Long term (current) use of anticoagulants; Z89.432 Acquired absence of left foot
CPT/HCPCS: 11042; 99213; G0463

== ENCOUNTER 2020-08-08 11:10 | Day surgery (SDC) | payer MEDICARE, OTHER, SELFPAY ==
[2020-05-11 10:50] VITALS: BMI 24.4
[2020-08-07 12:22] VITALS: BMI 24.4
[2020-08-08 11:33] LABS: Hematocrit 48.1 % (40-54); Mean Corp Hgb Conc 31.2 g/dL (32-36); Mean Corpuscular Hgb 28.7 pg (27.0-32.0); Mean Corpuscular Volume 92.1 fL (80-94); Mean Platelet Vol. 9.1 fl (6.2-12.0); Platelet Count 325 K/mm3 (150-450); RBC Distribution Width CV 12.6 % (11.6-14.6); RBC Distribution Width SD 42.7 fl (35.1-43.9); Red Blood Count 5.22 M/mm3 (4.6-6.2); White Blood Count 7.4 K/mm3 (4.4-11.0)
[2020-08-08 11:44] LABS: Albumin, Serum 3.7 g/dL (3.2-5.0); BUN 19 mg/dL (7-18); BUN/Creat Ratio 16.5 RATIO (10-20); Calcium,Total 9.6 mg/dL (8.5-10.1); Chloride 101 mmol/L (98-107); Creatinine, Serum 1.15 mg/dL (0.70-1.30); EST Glomerular Filtration Rate 65 mL/min (>60); Est Glom Filt Rate - Afr Amer 79 mL/min (>60); Estimated Creatinine Clearance 57.29 ml/min; Glucose 118 mg/dL (74-106); Phosphorus 3.2 mg/dL (2.5-4.9); Potassium 4.1 mmol/L (3.5-5.1); Sodium Level 137 mmol/L (136-145)
--- NOTE | 2020-08-08 14:32 | OP.PCM_ITS ---
Problem List (1) Peripheral vascular occlusive disease Status: Chronic Comment: Left above and below the knee popliteal and tibioperoneal trunk atherectomy and angioplasty 06/28/14 Left below the knee popliteal atherectomy w/ angioplasty 12/29/13 Report of Operation Date of Procedure: 08/08/20 Pre-Operative Diagnosis: PAD with nonhealing left heel Post-Operative Diagnosis: Same Surgery/Procedure Performed:: 1. Ultrasound-guided access retrograde right common femoral artery. 2. Left lower extremity angiogram with catheter placed into the popliteal artery. 3. Closure with Star close Type of Anesthesia:: Sedation,Conscious Description of Procedure: Patient brought to the [employer] [employer]. Underwent appropriate timeout consent. Underw ent sedation. Prepped and draped in a sterile fashion. We did ultrasound- guided access retrograde right common femoral artery. Put a Glidewire up in a 5 Ghanaian sheath. We gave 5000 units of heparin. We got up and over the bifurcation did an angiogram from the left iliac artery. This showed the left common femoral artery profunda and femoral is widely patent. Put a catheter down and imaged further down the leg. We then brought in a long 6 Ghanaian sheath did an angiogram that showed the occlusion of the popliteal artery. With a minimal flow through this. At the knee joint. There is collaterals around filling through this before any of the flow through the subtotal occlusion. We then brought in a long 6 Ghanaian sheath. Using a quick cross and Glidewire try to get through the area the occlusion but could not get it to track through. Did not have any torque ability of the wire from all the tortuosity through the iliacs. We tried different wires and catheters but unable to cross this area. We then removed out the sheath put a Star close deployed with good hemostasis. Brought to recovery stable condition. Plan: We will have to try to go antegrade in the left leg see if we can cross this occlusion otherwise it would need a femoral to below-knee pop bypass. Sedation: This 75-year-old gentleman underwent moderate sedation given by Dr. Nikita Jeff. He was monitored EKG blood pressure and pulse ox for over the 30 minutes of the procedure. See the EMR for the complete record.
== END 2020-08-08 17:40 | disposition home or self-care (01) ==
LOC: CLSP 11:12
PROVIDERS: PCP Family Medicine; Referring Provider Surgery Vascular Surgery; Visit Provider Surgery Vascular Surgery
DX: I70.213 Atherosclerosis of native arteries of extremities with intermittent claudication, bilateral legs (principal); Z79.01 Long term (current) use of anticoagulants; Z79.84 Long term (current) use of oral hypoglycemic drugs; Z79.899 Other long term (current) drug therapy; Z79.82 Long term (current) use of aspirin; M19.90 Unspecified osteoarthritis, unspecified site; E11.9 Type 2 diabetes mellitus without complications; I51.9 Heart disease, unspecified; I10 Essential (primary) hypertension; E78.00 Pure hypercholesterolemia, unspecified; Z87.891 Personal history of nicotine dependence
CPT/HCPCS: 36245; 36415; 75710; 76937; 80069; 85027; 93005; 99152; 99153; Q9967; C1760; C1769; C1887; C1894

== ENCOUNTER → 2020-08-21 10:01 | Outpatient (CLI) | payer MEDICARE, OTHER, SELFPAY ==
[2020-08-07 12:22] VITALS: BMI 24.4
[2020-08-21 12:53] LABS: Absolute Lymphocyte Count 1.88 X10^3/uL (0.83-4.51); Absolute Neutrophil Count 3.7 X10^3/uL (2.0-7.7); Basophil# 0.06 X10^3/uL; Basophil% 0.8 % (0-1); Eosinophil# 0.88 X10^3/uL; Eosinophils% 12.4 % (0-5); Hematocrit 43.4 % (40-54); Hemoglobin 13.7 g/dL (13.0-16.5); Lymphocyte # 1.88 X10^3/ul (4.0); Lymphocyte % 26.5 % (19-41); Mean Corp Hgb Conc 31.6 g/dL (32-36); Mean Corpuscular Hgb 29.4 pg (27.0-32.0); Mean Corpuscular Volume 93.1 fL (80-94); Mean Platelet Vol. 9.9 fl (6.2-12.0); Monocyte# 0.59 X10^3/uL; Monocyte% 8.3 % (0-10); NRBC Flagged by Analyzer 0 % (0-5); Neutrophil # 3.67 X10^3/uL (2.7-7.7); Neutrophil % 51.7 % (47-70); Platelet Count 259 K/mm3 (150-450); RBC Distribution Width SD 44.5 fl (35.1-43.9); Red Blood Count 4.66 M/mm3 (4.6-6.2); White Blood Count 7.1 K/mm3 (4.4-11.0)
[2020-08-21 13:29] LABS: Ferritin 122 ng/mL (26-388); Iron 59 ug/dL (65-175); Iron Binding Capacity,Total 226 ug/dL (250-450)
== END ==
PROVIDERS: PCP Family Medicine; Visit Provider Family Medicine
DX: E61.1 Iron deficiency (principal)
CPT/HCPCS: 36415; 82728; 83540; 83550; 85025

== ENCOUNTER 2020-08-29 11:00 | Outpatient (RCR) | payer MEDICARE, OTHER, SELFPAY ==
[2020-08-04 00:40] VITALS: BP 119/66; PULSE 65; RESP 16; TEMP 37
[2020-08-07 12:22] VITALS: BMI 24.4
[2020-08-22 09:31] VITALS: BP 119/68; PULSE 94; RESP 18; TEMP 36.1; BMI 24.4
--- NOTE | 2020-08-22 11:36 | PCM.WC.PN ---
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 (3) Peripheral vascular occlusive disease Status: Chronic Code(s): I73.9 - Peripheral vascular disease, unspecified Comment: Left above and below the knee popliteal and tibioperoneal trunk atherectomy and angioplasty 06/28/14 Left below the knee popliteal atherectomy w/ angioplasty 12/29/13 (4) Type 2 diabetes mellitus with foot ulcer Status: Chronic Code(s): E11.621 - Type 2 diabetes mellitus with foot ulcer; L97.509 - Non-pressure chronic ulcer of other part of unspecified foot with unspecified severity Type of Wound Date of Service: 08/25/20 Chief Complaint: Left heel and lateral foot ulcerations. Cellulitis. Peripheral vascular disease History of Wound: Patient is a 75-year-old male who presents to the wound care center after being seen in office by Dr. [facility] for chronic left foot wound. 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 He also has had left posterior heel ulceration. Patient had an angioplasty intervention with Dr. Jeff on 08/15/20. Patient has a history of peripheral vascular disease and has had surgical intervention in the past. Patient is currently taking Augmentin for heel ulcer infection. A renewal for the prescription was sent. Patient had cultures obtained in office which showed MSSA. Patient states that he has an offloading boot that he kicks his way out of and wakes him up at night. Patient has not found any other method of offloading to assist during sleeping. Patient has elevated the foot on pillows when sitting in chairs to offload the heel. Patient also has an offloading heel cut out surgical shoe she only wears when he is out of the house. When he is in the house patient states that he goes barefoot. Patient reports decrease in pain over the last week, esppecially since his angio. Progress of Wound: Improved wound site is warm Subjective: Patient seen and examined bedside. Patient denies any new pedal complaints. Patient denies nausea, fever, vomiting, chills, chest pain, shortness of breath, streaking, purulence - Physical Exam Vital Signs Temp Pulse Resp BP 97.0 F L 94 18 119/68 08/22/20 09:31 08/22/20 09:31 08/22/20 09:31 08/22/20 09:31 General: Alert, Oriented x3 HEENT: Atraumatic Extremities: No clubbing, No cyanosis, Capillary Refill Less than 3 Seconds, No Calf Tenderness, Diminished Peripheral Pulses - palpable 1/4 DP/PT, Tenderness - left foot uclerations Skin: Ulcer/ Wound - lateral forefoot and lateral heel. Warm to the touch. Skin hairless and atrophic. Necrotic/fibrotic base predebridement and fibrotic/granular after debridement, heel is near bone, both to level of sub q, no signs of infection, no purulence, no malodor Wound Measurements and Assessment WC - Nurse 1 - General Ulcer Measurement Start: 08/22/20 09:30 Freq: Status: Active Protocol: Activity Type Activity Date Activity User E-Sign Co-Sign Detail Recorded Client Recorded Date Recorded By Document 08/22/20 09:31 JF [id number] 08/22/20 09:32 OPAL 08/22/20 09:31 Wound Center Nurse 1 [Ulcer Assessment] #2- L LATERAL FOOT CLUSTER -Combined with other wound No -Current Size (cm) - Length 0.7 -Current Size (cm) - Width 0.7 -Current Size (cm) - Depth 0.2 -Total Square Cm 0.49 -Photo Taken No -Epithelialization None Present -Tunneling No -Undermining/Tunneling No -Circular Undermining No -Exudate Amt None Present -Wound Margin Flat & Intact -Granulation Amt None Present (0 %) -Slough/Fibrin Yes -Necrosis Amt Large (67-100%) -Necrotic Tissue Type Adherent Slough -Structure Exposed N/A -Texture (Stacy-wound Skin Appearance) Assessed -Moisture (Stacy-wound Skin Appearance Assessed,Dry/ ) Scaly -Color (Stacy-wound Skin Appearance) Assessed -Temperature (Stacy-wound Skin No Abnormality Appearance) (Pt Warm) -Tenderness on Palpation (Stacy-wound No Skin Appearance) -Ulcer Cleansing Rinsed/ Irrigated with Saline -Foul Odor after Cleansing No -Anesthetic Used 5% Lidocaine Gel #1- L LATERAL HEEL -Combined with other wound No -Current Size (cm) - Length 2.3 -Current Size (cm) - Width 5.5 -Current Size (cm) - Depth 0.2 -Total Square Cm 12.65 -Photo Taken No -Epithelialization None Present -Tunneling No -Circular Undermining No -Exudate Amt None Present -Wound Margin Flat & Intact -Granulation Amt None Present (0 %) -Slough/Fibrin Yes -Necrosis Amt Large (67-100%) -Necrotic Tissue Type Eschar -Structure Exposed N/A -Texture (Stacy-wound Skin Appearance) Assessed -Moisture (Stacy-wound Skin Appearance Assessed,Dry/ ) Scaly -Color (Stacy-wound Skin Appearance) Assessed -Temperature (Stacy-wound Skin No Abnormality Appearance) (Pt Warm) -Tenderness on Palpation (Stacy-wound No Skin Appearance) -Ulcer Cleansing Rinsed/ Irrigated with Saline -Foul Odor after Cleansing No -Anesthetic Used 5% Lidocaine Gel [Edema Assessment] -Lower Limb Edema Present No WC - Nurse 2 - General Ulcer CM Notes Start: 08/22/20 09:30 Freq: Status: Active Protocol: Activity Type Activity Date Activity User E-Sign Co-Sign Detail Recorded Client Recorded Date Recorded By Document 08/22/20 09:44 JF [id number] 08/22/20 09:55 08/22/20 09:44 Wound Center Nurse 2 [Procedure/Treatment] #2- L LATERAL FOOT CLUSTER -Time 09:44 -Correct Patient Yes -Correct Side, Site, Position Yes -Correct Procedure Yes -Procedure Performed Yes -Type of Procedure Debridement -Clinical Debridement Subcutaneous -Tissue Removed Subcutaneous -Post Debridement (cm) - Length 0.8 -Post Debridement (cm) - Width 0.9 -Post Debridement (cm) - Depth 0.2 -Total Square (Post) (cm) 0.72 -Area of Debridement (cm) - Length 0.8 -Area of Debridement (cm) - Width 0.9 -Total Square (Area) (cm) 0.72 -Tunneling No -Undermining/Tunneling No -Circular Undermining No -Wound/Ulcer Outcome Not Healed -Ulcer Cleansing Rinsed/ Irrigated with Saline -Foul Odor after Cleansing No -Bioengineered Tissue No -Bleeding Controlled with Pressure -Offloading Yes -Type of Offloading Surgical Shoe -Treatment Response Procedure Tolerated Well -Debridement - Subq, 1st 20sq cm Yes #1- L LATERAL HEEL -Time 09:45 -Correct Patient Yes -Correct Side, Site, Position Yes -Correct Procedure Yes -Procedure Performed Yes -Type of Procedure Debridement -Clinical Debridement Subcutaneous -Tissue Removed Subcutaneous -Post Debridement (cm) - Length 2.7 -Post Debridement (cm) - Width 5.1 -Post Debridement (cm) - Depth 0.3 -Total Square (Post) (cm) 13.77 -Area of Debridement (cm) - Length 2.7 -Area of Debridement (cm) - Width 5.1 -Total Square (Area) (cm) 13.77 -Tunneling No -Undermining/Tunneling No -Circular Undermining No -Wound/Ulcer Outcome Not Healed -Ulcer Cleansing Rinsed/ Irrigated with Saline -Foul Odor after Cleansing No -Bioengineered Tissue No -Bleeding Controlled with Pressure -Offloading Yes -Type of Offloading Surgical Shoe -Treatment Response Procedure Tolerated Well -Debridement - Subq, 1st 20sq cm No [See Physician Procedure note for Specifics] - Nurse 3 - General Ulcer D/C NN Start: 08/22/20 09:30 Freq: Status: Active Protocol: Activity Type Activity Date Activity User E-Sign Co-Sign Detail Recorded Client Recorded Date Recorded By Document 08/22/20 10:10 DL [id number] 08/22/20 10:11 DL 08/22/20 10:10 Wound Care Nurse 3 [Wound Dressing] #2- L LATERAL FOOT CLUSTER -Ulcer Cleansing Rinsed/ Irrigated with Saline -Foul Odor after Cleansing No -Other Dressing santyl -Primary Dressing Covered/Secured Dry Gauze & with Roll Gauze, Secured with Tape #1- L LATERAL HEEL -Ulcer Cleansing Rinsed/ Irrigated with Saline -Other Dressing santyl -Primary Dressing Covered/Secured Dry Gauze & with Roll Gauze, Secured with Tape [Post Procedure Tolerated] -Treatment Response Procedure Tolerated Well Pain Scale: 0-10 Numeric [Pain] -Is Patient Pain Free? Yes WC - Visit Discharge [Visit Discharge Information] -Discharge Condition Stable -Ambulatory Status Ambulatory, Walker -Transportation Private Auto Musculoskeletal: Muscle Wasting, Tenderness - ulcer sites Neurological: - - light touch diminished Psych/Mental Status: Normal Affect, Appropriate Debridement Note Post-Debridement Measurements/Treatment WC - Nurse 2 - General Ulcer CM Notes Start: 08/22/20 09:30 Freq: Status: Active Protocol: Activity Type Activity Date Activity User E-Sign Co-Sign Detail Recorded Client Recorded Date Recorded By Document 08/22/20 09:44 JF [id number] 08/22/20 09:55 OPAL 08/22/20 09:44 Wound Center Nurse 2 #2- L LATERAL FOOT CLUSTER -Time 09:44 -Correct Patient Yes -Correct Side, Site, Position Yes -Correct Procedure Yes -Procedure Performed Yes -Type of Procedure Debridement -Clinical Debridement Subcutaneous -Tissue Removed Subcutaneous -Post Debridement (cm) - Length 0.8 -Post Debridement (cm) - Width 0.9 -Post Debridement (cm) - Depth 0.2 -Total Square (Post) (cm) 0.72 -Area of Debridement (cm) - Length 0.8 -Area of Debridement (cm) - Width 0.9 -Total Square (Area) (cm) 0.72 -Tunneling No -Undermining/Tunneling No -Circular Undermining No -Wound/Ulcer Outcome Not Healed -Ulcer Cleansing Rinsed/ Irrigated with Saline -Foul Odor after Cleansing No -Bioengineered Tissue No -Bleeding Controlled with Pressure -Offloading Yes -Type of Offloading Surgical Shoe -Treatment Response Procedure Tolerated Well -Debridement - Subq, 1st 20sq cm Yes #1- L LATERAL HEEL -Time 09:45 -Correct Patient Yes -Correct Side, Site, Position Yes -Correct Procedure Yes -Procedure Performed Yes -Type of Procedure Debridement -Clinical Debridement Subcutaneous -Tissue Removed Subcutaneous -Post Debridement (cm) - Length 2.7 -Post Debridement (cm) - Width 5.1 -Post Debridement (cm) - Depth 0.3 -Total Square (Post) (cm) 13.77 -Area of Debridement (cm) - Length 2.7 -Area of Debridement (cm) - Width 5.1 -Total Square (Area) (cm) 13.77 -Tunneling No -Undermining/Tunneling No -Circular Undermining No -Wound/Ulcer Outcome Not Healed -Ulcer Cleansing Rinsed/ Irrigated with Saline -Foul Odor after Cleansing No -Bioengineered Tissue No -Bleeding Controlled with Pressure -Offloading Yes -Type of Offloading Surgical Shoe -Treatment Response Procedure Tolerated Well -Debridement - Subq, 1st 20sq cm No WC - Nurse 3 - General Ulcer D/C NN Start: 08/22/20 09:30 Freq: Status: Active Protocol: Activity Type Activity Date Activity User E-Sign Co-Sign Detail Recorded Client Recorded Date Recorded By Document 08/22/20 10:10 DL [id number] 08/22/20 10:11 DL 08/22/20 10:10 Wound Care Nurse 3 #2- L LATERAL FOOT CLUSTER -Ulcer Cleansing Rinsed/ Irrigated with Saline -Foul Odor after Cleansing No -Other Dressing santyl -Primary Dressing Covered/Secured with Dry Gauze & Roll Gauze, Secured with Tape #1- L LATERAL HEEL -Ulcer Cleansing Rinsed/ Irrigated with Saline -Other Dressing santyl -Primary Dressing Covered/Secured with Dry Gauze & Roll Gauze, Secured with Tape Treatment Response Procedure Tolerated Well Pain Scale: 0-10 Numeric Is Patient Pain Free? Yes WC - Visit Discharge Discharge Condition Stable Ambulatory Status Ambulatory, Walker Transportation Private Auto Wound debrided: lateral heel Laterality: Left Wound Grade/Stage: hodges 2 Type of Debridement: Excisional debridement Anesthesia Used: 4% Lidocaine Solution Depth: in the subcutaneous layer Percentage of wound debrided: 100 Instrument Used: #15 blade Tissue Removed: slough, biofilm, fibrous, necrotic tissue Severity: Fat Layer Exposed Amount of bleeding with debridement: Mild Bleeding Controlled with: Pressure Patient tolerated procedure well - Additional Wound Wound debrided: lateral forefoot Laterality: Left Wound Grade/Stage: hodges 2 Type of Debridement: Excisional debridement Anesthesia Used: 4% Lidocaine Solution Depth: in the subcutaneous layer Percentage of wound debrided: 100 Instrument Used: #15 blade Tissue Removed: slough, biofilm, fibrous, necrotic tissue Severity: Fat Layer Exposed Amount of bleeding with debridement: Mild Bleeding Controlled with: Pressure Patient tolerated procedure: Patient tolerated procedure well Assessment/Plan Active Problems (Last Updated 03/15/20 @ 19:22 by Luz Maria Mcnally) Type 2 diabetes mellitus with foot ulcer (Chronic) 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 Left foot lateral foot ulcer. Left foot cellulitis. History of left transmetatarsal amputation. Diabetes. peripheral vascular disease Plan: Patient is referral from Dr. Pelaez at the [facility]. Patient seen and examined. Culture from 07/18/2020 shows MSSA. Patient is currently taking Augmentin for cellulitis to the left heel ulceration. Refill was given at last appointment. Both ulcerations were sharply debrided today. Patient underwent vascular intervention on 08/15/[address] Jeff. Patient has had previous surgical intervention with Dr. Jeff in the past. He had recent arterial studies on 06/13/20 showing monophasic waveforms and noncompressible bilateral PT and DP on the right with an left PAYAL of 0.78 on left. Discussed at length the importance of offloading with the patient in order to allow proper wound healing. Patient states that he has an offloading shoe at home but is uncomfortable and twists when he tries to wear it while sleeping as he moves in his sleep. Patient does not wear it while sleeping. Discussed with patient the importance of his offloading suggested other alternative methods such as pillows or a doughnut offloading pad. Patient has no interest in this. Again the importance of offloading to allow ulcer to heal. Also discussed the importance of offloading when not sleeping such as in a chair with floating the heel with pillows. Patient also has a surgical shoe with cut out to offload the heel. He states he only wears this when he is out on the town and does not wear it at home. Discussed with patient the importance of proper nutrition and blood sugar control to also aid in wound healing. Patient and educated on proper dressing changes. Dressing changed. Patient to continue daily dressing changes with Santyl to both wounds. Lateral heel wound noted to be warm again. Sharped debridement of necrotic tissue carried out after verbal consent obtained without incident. Patient well tolerated. Patient is to follow-up in 1 week
[2020-08-29 11:39] VITALS: BP 108/56; PULSE 79; RESP 16; TEMP 35.9; BMI 24.4
--- NOTE | 2020-08-29 12:25 | PCM.WC.PN ---
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 (3) Peripheral vascular occlusive disease Status: Chronic Code(s): I73.9 - Peripheral vascular disease, unspecified Comment: Left above and below the knee popliteal and tibioperoneal trunk atherectomy and angioplasty 06/28/14 Left below the knee popliteal atherectomy w/ angioplasty 12/29/13 (4) Type 2 diabetes mellitus with foot ulcer Status: Chronic Code(s): E11.621 - Type 2 diabetes mellitus with foot ulcer; L97.509 - Non-pressure chronic ulcer of other part of unspecified foot with unspecified severity Type of Wound Date of Service: 08/29/20 Chief Complaint: Left heel and lateral foot ulcerations. Cellulitis. Peripheral vascular disease History of Wound: Patient is a 75-year-old male who presents to the wound care center after being seen in office by Dr[facility] for chronic left foot wound. 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 He also has had left posterior heel ulceration. Patient had an angioplasty intervention with Dr. Jeff on 08/15/20. Patient has a history of peripheral vascular disease and has had surgical intervention in the past. Patient took Augmentin for heel ulcer infection. Patient had cultures obtained in office which showed MSSA. Patient states that he has an offloading boot that he kicks his way out of and wakes him up at night. Patient has not found any other method of offloading to assist during sleeping. Patient has elevated the foot on pillows when sitting in chairs to offload the heel. Patient also has an offloading heel cut out surgical shoe she only wears when he is out of the house. When he is in the house patient states that he goes barefoot. Patient reports decrease in pain over the last week, esppecially since his angio. Patient's relates that she has run out of [employer] and has had problems getting more. Progress of Wound: stable Subjective: Patient seen and examined bedside. Patient denies any new pedal complaints. Patient denies any nausea, fever, chills, chest pain, shortness of breath, cough, streaking, purulence, vomiting. - Physical Exam Vital Signs Temp Pulse Resp BP 96.6 F L 79 16 108/56 L 08/29/20 11:39 08/29/20 11:39 08/29/20 11:39 08/29/20 11:39 General: Alert, Oriented x3 HEENT: Atraumatic Extremities: No clubbing, No cyanosis, No edema, Capillary Refill Less than 3 Seconds, No Calf Tenderness, Cool - lateral heel ulceration noted to be cooler than at previous visit but not as cool as prior to angio, Diminished Peripheral Pulses, Tenderness Skin: Ulcer/ Wound - left lateral foot and heel ulceration. No malodor, purulence, probing to bone, streaking, or other signs of infection. Skin is atrophic and hairless. fibrotic base. Heel ulcer noted to be cool with fat seen and near bone. Minimal stacy heel ulcer erythema noted Wound Measurements and Assessment WC - Nurse 1 - General Ulcer Measurement Start: 08/22/20 09:30 Freq: Status: Active Protocol: Activity Type Activity Date Activity User E-Sign Co-Sign Detail Recorded Client Recorded Date Recorded By Document 08/29/20 11:39 MW [id number] 08/29/20 11:50 MW 08/29/20 11:39 Wound Center Nurse 1 [Ulcer Assessment] #2- L LATERAL FOOT CLUSTER -Combined with other wound No -Current Size (cm) - Length 5.0 -Current Size (cm) - Width 2.4 -Current Size (cm) - Depth 0.2 -Total Square Cm 12.00 -Photo Taken No -Epithelialization None Present -Tunneling No -Undermining/Tunneling No -Circular Undermining No -Exudate Amt Medium -Exudate Type Serosanguineous -Wound Margin Flat & Intact -Granulation Amt None Present (0 %) -Granulation Quality N/A -Slough/Fibrin Yes -Necrosis Amt Large (67-100%) -Necrotic Tissue Type Adherent Slough -Structure Exposed N/A -Texture (Stacy-wound Skin Appearance) Assessed, Localized Edema -Moisture (Stacy-wound Skin Appearance Assessed, ) Maceration -Color (Stacy-wound Skin Appearance) Assessed, Erythema -Temperature (Stacy-wound Skin No Abnormality Appearance) (Pt Warm) -Tenderness on Palpation (Stacy-wound Yes Skin Appearance) -Ulcer Cleansing Rinsed/ Irrigated with Saline -Foul Odor after Cleansing No -Anesthetic Used 4% Lidocaine Solution #1- L LATERAL HEEL -Combined with other wound No -Current Size (cm) - Length 0.8 -Current Size (cm) - Width 0.9 -Current Size (cm) - Depth 0.1 -Total Square Cm 0.72 -Photo Taken No -Epithelialization None Present -Tunneling No -Circular Undermining No -Exudate Amt Small -Exudate Type Serosanguineous -Wound Margin Flat & Intact -Granulation Amt None Present (0 %) -Granulation Quality N/A -Slough/Fibrin Yes -Necrosis Amt Large (67-100%) -Structure Exposed N/A -Texture (Stacy-wound Skin Appearance) Assessed, Scarring -Moisture (Stacy-wound Skin Appearance Assessed, ) Maceration -Color (Stacy-wound Skin Appearance) Assessed,Rubor -Temperature (Stacy-wound Skin No Abnormality Appearance) (Pt Warm) -Tenderness on Palpation (Stacy-wound Yes Skin Appearance) -Ulcer Cleansing Rinsed/ Irrigated with Saline -Foul Odor after Cleansing No -Anesthetic Used 4% Lidocaine Solution [Edema Assessment] -Lower Limb Edema Present No WC - Nurse 2 - General Ulcer CM Notes Start: 08/22/20 09:30 Freq: Status: Active Protocol: Activity Type Activity Date Activity User E-Sign Co-Sign Detail Recorded Client Recorded Date Recorded By Document 08/29/20 12:15 OPAL [id number] 08/29/20 12:16 OPAL 08/29/20 12:15 Wound Center Nurse 2 [Procedure/Treatment] #2- L LATERAL FOOT CLUSTER -Time 12:15 -Correct Patient Yes -Correct Side, Site, Position Yes -Procedure Performed Yes -Type of Procedure Debridement -Clinical Debridement Subcutaneous -Tissue Removed Subcutaneous -Post Debridement (cm) - Length 1 -Post Debridement (cm) - Width 1 -Post Debridement (cm) - Depth 0.2 -Total Square (Post) (cm) 1 -Area of Debridement (cm) - Length 1 -Area of Debridement (cm) - Width 1 -Total Square (Area) (cm) 1 -Tunneling No -Undermining/Tunneling No -Circular Undermining No -Wound/Ulcer Outcome Not Healed -Ulcer Cleansing Rinsed/ Irrigated with Saline -Foul Odor after Cleansing No -Bioengineered Tissue No -Bleeding Controlled with Pressure -Offloading Yes -Type of Offloading Surgical Shoe -Treatment Response Procedure Tolerated Well -Debridement - Subq, 1st 20sq cm Yes #1- L LATERAL HEEL -Time 12:15 -Correct Patient Yes -Correct Side, Site, Position Yes -Correct Procedure Yes -Procedure Performed Yes -Type of Procedure Debridement -Clinical Debridement Subcutaneous -Tissue Removed Subcutaneous -Post Debridement (cm) - Length 5 -Post Debridement (cm) - Width 2.5 -Post Debridement (cm) - Depth 0.4 -Total Square (Post) (cm) 12.5 -Area of Debridement (cm) - Length 5 -Area of Debridement (cm) - Width 2.5 -Total Square (Area) (cm) 12.5 -Tunneling No -Undermining/Tunneling No -Circular Undermining No -Wound/Ulcer Outcome Not Healed -Ulcer Cleansing Rinsed/ Irrigated with Saline -Foul Odor after Cleansing No -Bioengineered Tissue No -Bleeding Controlled with Pressure -Offloading Yes -Type of Offloading Surgical Shoe -Treatment Response Procedure Tolerated Well -Debridement - Subq, 1st 20sq cm Yes [See Physician Procedure note for Specifics] Pain Scale: 0-10 Numeric [Pain] -Is Patient Pain Free? Yes Musculoskeletal: Tenderness, - - left TMA Neurological: - - decreased epicritic sensation Psych/Mental Status: Normal Affect, Appropriate Debridement Note Post-Debridement Measurements/Treatment WC - Nurse 2 - General Ulcer CM Notes Start: 08/22/20 09:30 Freq: Status: Active Protocol: Activity Type Activity Date Activity User E-Sign Co-Sign Detail Recorded Client Recorded Date Recorded By Document 08/22/20 09:44 JF [id number] 08/22/20 09:55 Document 08/29/20 12:15 JF [id number] 08/29/20 12:16 08/22/20 08/29/20 09:44 12:15 Wound Center Nurse 2 #2- L LATERAL FOOT CLUSTER -Time 09:44 12:15 -Correct Patient Yes Yes -Correct Side, Site, Position Yes Yes -Correct Procedure Yes -Procedure Performed Yes Yes -Type of Procedure Debridement Debridement -Clinical Debridement Subcutaneous Subcutaneous -Tissue Removed Subcutaneous Subcutaneous -Post Debridement (cm) - Length 0.8 1 -Post Debridement (cm) - Width 0.9 1 -Post Debridement (cm) - Depth 0.2 0.2 -Total Square (Post) (cm) 0.72 1 -Area of Debridement (cm) - Length 0.8 1 -Area of Debridement (cm) - Width 0.9 1 -Total Square (Area) (cm) 0.72 1 -Tunneling No No -Undermining/Tunneling No No -Circular Undermining No No -Wound/Ulcer Outcome Not Healed Not Healed -Ulcer Cleansing Rinsed/ Rinsed/ Irrigated with Irrigated with Saline Saline -Foul Odor after Cleansing No No -Bioengineered Tissue No No -Bleeding Controlled with Pressure Pressure -Offloading Yes Yes -Type of Offloading Surgical Shoe Surgical Shoe -Treatment Response Procedure Procedure Tolerated Well Tolerated Well -Debridement - Subq, 1st 20sq cm Yes Yes #1- L LATERAL HEEL -Time 09:45 12:15 -Correct Patient Yes Yes -Correct Side, Site, Position Yes Yes -Correct Procedure Yes Yes -Procedure Performed Yes Yes -Type of Procedure Debridement Debridement -Clinical Debridement Subcutaneous Subcutaneous -Tissue Removed Subcutaneous Subcutaneous -Post Debridement (cm) - Length 2.7 5 -Post Debridement (cm) - Width 5.1 2.5 -Post Debridement (cm) - Depth 0.3 0.4 -Total Square (Post) (cm) 13.77 12.5 -Area of Debridement (cm) - Length 2.7 5 -Area of Debridement (cm) - Width 5.1 2.5 -Total Square (Area) (cm) 13.77 12.5 -Tunneling No No -Undermining/Tunneling No No -Circular Undermining No No -Wound/Ulcer Outcome Not Healed Not Healed -Ulcer Cleansing Rinsed/ Rinsed/ Irrigated with Irrigated with Saline Saline -Foul Odor after Cleansing No No -Bioengineered Tissue No No -Bleeding Controlled with Pressure Pressure -Offloading Yes Yes -Type of Offloading Surgical Shoe Surgical Shoe -Treatment Response Procedure Procedure Tolerated Well Tolerated Well -Debridement - Subq, 1st 20sq cm No Yes Pain Scale: 0-10 Numeric Is Patient Pain Free? Yes WC - Nurse 3 - General Ulcer D/C NN Start: 08/22/20 09:30 Freq: Status: Active Protocol: Activity Type Activity Date Activity User E-Sign Co-Sign Detail Recorded Client Recorded Date Recorded By Document 08/22/20 10:10 DL [id number] 08/22/20 10:11 DL 08/22/20 10:10 Wound Care Nurse 3 #2- L LATERAL FOOT CLUSTER -Ulcer Cleansing Rinsed/ Irrigated with Saline -Foul Odor after Cleansing No -Other Dressing santyl -Primary Dressing Covered/Secured with Dry Gauze & Roll Gauze, Secured with Tape #1- L LATERAL HEEL -Ulcer Cleansing Rinsed/ Irrigated with Saline -Other Dressing santyl -Primary Dressing Covered/Secured with Dry Gauze & Roll Gauze, Secured with Tape Treatment Response Procedure Tolerated Well Pain Scale: 0-10 Numeric Is Patient Pain Free? Yes WC - Visit Discharge Discharge Condition Stable Ambulatory Status Ambulatory, Walker Transportation Private Auto Wound debrided: lateral heel Laterality: Left Wound Grade/Stage: hodges 2 Type of Debridement: Excisional debridement Anesthesia Used: 4% Lidocaine Solution Percentage of wound debrided: 100 Instrument Used: 5mm curette Tissue Removed: Tissue removed includes fibrous, devitalized, biofilm, and slough tissue Severity: Fat Layer Exposed Amount of bleeding with debridement: Mild Bleeding Controlled with: Pressure Patient tolerated procedure well - Additional Wound Wound debrided: lateral foot Laterality: Left Wound Grade/Stage: hodges 1 Type of Debridement: Excisional debridement Anesthesia Used: 4% Lidocaine Solution Depth: in the subcutaneous layer Percentage of wound debrided: 100 Instrument Used: 5mm curette Tissue Removed: Tissue removed includes fibrous, devitalized, biofilm, and slough tissue Severity: Fat Layer Exposed Amount of bleeding with debridement: Mild Bleeding Controlled with: Pressure Patient tolerated procedure: Patient tolerated procedure well Assessment/Plan Active Problems (Last Updated 03/15/20 @ 19:22 by Luz Maria Mcnally) Type 2 diabetes mellitus with foot ulcer (Chronic) 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 Left foot lateral foot ulcer. Left foot cellulitis. History of left transmetatarsal amputation. Diabetes. peripheral vascular disease Plan: Patient is referral from Dr. Pelaez at the [facility]. Patient seen and examined. Culture from 07/18/2020 shows MSSA. Patient took Augmentin for cellulitis to the left heel ulceration. Both ulcerations were sharply debrided today without incident after verbal consent obtained. Patient underwent vascular intervention on 08/15/[address] Jeff. Patient has had previous surgical intervention with Dr. Jeff in the past. He had recent arterial studies on 06/13/20 showing monophasic waveforms and noncompressible bilateral PT and DP on the right with an left PAYAL of 0.78 on left. Discussed at length the importance of offloading with the patient in order to allow proper wound healing. Patient states that he has an offloading shoe at home but is uncomfortable and twists when he tries to wear it while sleeping as he moves in his sleep. Patient does not wear it while sleeping. Discussed with patient the importance of his offloading suggested other alternative methods such as pillows or a doughnut offloading pad. Patient has no interest in this. Again the importance of offloading to allow ulcer to heal. Also discussed the importance of offloading when not sleeping such as in a chair with floating the heel with pillows. Patient also has a surgical shoe with cut out to offload the heel. He states he only wears this when he is out on the town and does not wear it at home. Discussed with patient the importance of proper nutrition and blood sugar control to also aid in wound healing. Patient and educated on proper dressing changes. Dressing changed. Patient to continue daily dressing changes with Santyl to both wounds. Patient relates that she hasn't been able to obtain santyl dressing and states she was given something else at the pharmacy. A new prescription was given. Patient to use santyl once obtained. Lateral heel wound noted to be cool to the touch. Not as warm as previous visit but not as cold as it was prior to angio. Unsure if the cool temperature noted on exam is from winter weather with patient waiting without sock for exam or not. Will continue to monitor. All questions answered. Patient is to follow-up in 1 week
== END 2020-09-03 23:59 ==
LOC: WC 11:00
PROVIDERS: PCP Family Medicine; Referring Provider Podiatrist; Visit Provider Podiatrist Foot & Ankle Surgery
DX: E11.621 Type 2 diabetes mellitus with foot ulcer (principal); L97.522 Non-pressure chronic ulcer of other part of left foot with fat layer exposed; L97.422 Non-pressure chronic ulcer of left heel and midfoot with fat layer exposed; E11.51 Type 2 diabetes mellitus with diabetic peripheral angiopathy without gangrene; Z86.19 Personal history of other infectious and parasitic diseases; L03.116 Cellulitis of left lower limb; Z89.432 Acquired absence of left foot
CPT/HCPCS: 11042

== ENCOUNTER 2020-09-12 11:00 | Outpatient (RCR) | payer MEDICARE, OTHER, SELFPAY ==
[2020-09-04 00:35] VITALS: BP 108/56; PULSE 79; RESP 16; TEMP 35.9
[2020-09-05 11:12] VITALS: BP 118/69; PULSE 99; RESP 20; TEMP 36.5; BMI 24.4
--- NOTE | 2020-09-05 12:24 | PN.PCM_ITS ---
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 Cellulitis. Peripheral vascular disease History of Wound: Patient is a 75-year-old male who presents to the wound care center after being seen in office by Dr. [facility] for chronic left foot wound. 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 He also has had left posterior heel ulceration. Patient had an angioplasty intervention with Dr. Jeff on 08/15/20. Patient has a history of peripheral vascular disease and has had surgical intervention in the past. Patient has taken Augmentin for heel ulcer infection. Patient had cultures obtained in office which showed MSSA. Patient states that he has an offloading boot that he kicks his way out of and wakes him up at night. Patient has not found any other method of offloading to assist during sleeping. Patient has elevated the foot on pillows when sitting in chairs to offload the heel. Patient also has an offloading heel cut out surgical shoe she only wears when he is out of the house. When he is in the house patient states that he goes barefoot. Patient reports decrease in pain over the last week, esppecially since his angio. Patient's relates that he was able to get more Santyl but had to pay over $200 for it which is not feasible moving forward. They also relate that they have a follow-up appoint with Dr. Jeff tomorrow. Discussed with the patient and to relate to Dr. Jeff the regression of the wound with more necrotic tissue and ask if there is anything else he can do. Progress of Wound: Worsening with reappearance of necrotic tissue and cool temperature Subjective: Patient seen and examined bedside. Patient denies any new pedal complaints. Patient denies any nausea, fever, chills, chest pain, shortness of breath, cough, streaking, purulence, vomiting.. Patient relates having some pain to his left foot - Physical Exam Vital Signs Temp Pulse Resp BP 97.7 F L 99 20 H 118/69 09/05/20 11:12 09/05/20 11:12 09/05/20 11:12 09/05/20 11:12 General: Alert, Oriented x3 HEENT: Atraumatic Extremities: No clubbing, No cyanosis, No edema, Capillary Refill Less than 3 Seconds - To TMA stump left foot decreased cap fill time Meggan wound area, Cool - Left foot around ulcer sites, Diminished Peripheral Pulses - Nonpalpable DP PT left foot, Tenderness - At ulcer sites Skin: Ulcer/ Wound - Left lateral heel and left lateral foot ulcerations. Worsen appearance. no malodor, purulence, probing to bone, streaking. Skin is atrophic and hairless. Fibrotic and necrotic base with minimal serosanguineous drainage after debridement. Periwound erythema nonblanchable and cool to the touch Wound Measurements and Assessment WC - Nurse 1 - General Ulcer Measurement Start: 09/05/20 11:10 Freq: Status: Active Protocol: Activity Type Activity Date Activity User E-Sign Co-Sign Detail Recorded Client Recorded Date Recorded By Document 09/05/20 11:12 DL [id number] 09/05/20 11:21 DL 09/05/20 11:12 Wound Center Nurse 1 [Ulcer Assessment] #2- L LATERAL FOOT CLUSTER -Current Size (cm) - Length 0.8 -Current Size (cm) - Width 0.5 -Current Size (cm) - Depth 0.1 -Total Square Cm 0.40 -Epithelialization None Present -Exudate Amt Medium -Exudate Type Sanguineous -Wound Margin Distinct, Outline Attached -Granulation Amt None Present (0 %) -Slough/Fibrin Yes -Necrosis Amt Large (67-100%) -Texture (Stacy-wound Skin Appearance) No Abnormality -Moisture (Stacy-wound Skin Appearance Assessed ) -Foul Odor after Cleansing No -Anesthetic Used 4% Lidocaine Solution #1- L LATERAL HEEL -Current Size (cm) - Length 2.2 -Current Size (cm) - Width 5 -Current Size (cm) - Depth 3 -Total Square Cm 11.0 -Epithelialization None Present -Tunneling No -Undermining/Tunneling No -Granulation Amt None Present (0 %) -Slough/Fibrin Yes -Necrosis Amt Large (67-100%) -Necrotic Tissue Type Adherent Slough -Texture (Stacy-wound Skin Appearance) No Abnormality -Moisture (Stacy-wound Skin Appearance Assessed ) -Color (Stacy-wound Skin Appearance) Erythema -Foul Odor after Cleansing No -Anesthetic Used 4% Lidocaine Solution WC - Nurse 2 - General Ulcer CM Notes Start: 09/05/20 11:10 Freq: Status: Active Protocol: Activity Type Activity Date Activity User E-Sign Co-Sign Detail Recorded Client Recorded Date Recorded By Document 09/05/20 11:57 OPAL [id number] 09/05/20 12:06 OPAL 09/05/20 11:57 Wound Center Nurse 2 [Procedure/Treatment] #2- L LATERAL FOOT CLUSTER -Time 11:58 -Correct Patient Yes -Correct Side, Site, Position Yes -Correct Procedure Yes -Procedure Performed Yes -Type of Procedure Debridement -Clinical Debridement Subcutaneous -Tissue Removed Subcutaneous -Post Debridement (cm) - Length 1.4 -Post Debridement (cm) - Width 1.3 -Post Debridement (cm) - Depth 0.2 -Total Square (Post) (cm) 1.82 -Area of Debridement (cm) - Length 1.4 -Area of Debridement (cm) - Width 1.3 -Total Square (Area) (cm) 1.82 -Tunneling No -Undermining/Tunneling No -Circular Undermining No -Wound/Ulcer Outcome Not Healed -Ulcer Cleansing Rinsed/ Irrigated with Saline -Foul Odor after Cleansing No -Bioengineered Tissue No -Bleeding Controlled with Pressure -Offloading Yes -Type of Offloading Surgical Shoe -Treatment Response Procedure Tolerated Well -Debridement - Subq, 1st 20sq cm Yes #1- L LATERAL HEEL -Time 11:58 -Correct Patient Yes -Correct Side, Site, Position Yes -Correct Procedure Yes -Procedure Performed Yes -Type of Procedure Debridement -Clinical Debridement Subcutaneous -Tissue Removed Subcutaneous -Post Debridement (cm) - Length 5.6 -Post Debridement (cm) - Width 2.5 -Post Debridement (cm) - Depth 0.4 -Total Square (Post) (cm) 14.00 -Area of Debridement (cm) - Length 5.6 -Area of Debridement (cm) - Width 2.5 -Total Square (Area) (cm) 14.00 -Tunneling No -Undermining/Tunneling No -Circular Undermining No -Wound/Ulcer Outcome Not Healed -Ulcer Cleansing Rinsed/ Irrigated with Saline -Foul Odor after Cleansing No -Bioengineered Tissue No -Bleeding Controlled with Pressure -Offloading Yes -Type of Offloading Surgical Shoe -Treatment Response Procedure Tolerated Well -Debridement - Subq, 1st 20sq cm No [See Physician Procedure note for Specifics] Pain Scale: 0-10 Numeric [Pain] -Is Patient Pain Free? Yes - Nurse 3 - General Ulcer D/C NN Start: 09/05/20 11:10 Freq: Status: Active Protocol: Activity Type Activity Date Activity User E-Sign Co-Sign Detail Recorded Client Recorded Date Recorded By Document 09/05/20 12:09 OPAL [id number] 09/05/20 12:10 OPAL 09/05/20 12:09 Wound Care Nurse 3 [Wound Dressing] #2- L LATERAL FOOT CLUSTER -Ulcer Cleansing Rinsed/ Irrigated with Saline -Foul Odor after Cleansing No -Negative Pressure Wound Therapy N/A -Other Dressing collagen hydrogel -Primary Dressing Covered/Secured Dry Gauze & with Roll Gauze, Secured with Tape #1- L LATERAL HEEL -Ulcer Cleansing Rinsed/ Irrigated with Saline -Foul Odor after Cleansing No -Negative Pressure Wound Therapy N/A -Other Dressing collagen hydrogel -Primary Dressing Covered/Secured Dry Gauze & with Roll Gauze, Secured with Tape [Post Procedure Tolerated] -Treatment Response Procedure Tolerated Well Pain Scale: 0-10 Numeric [Pain] -Is Patient Pain Free? Yes Teaching: Wound Center [Wound Center Education] (Items with an * have Printed Materials Available- Please identify what is given to patient under the Teaching materials given to patient and caregiver Section. Dressing Your Wound -Person Taught Patient,Family -Teaching Method Discussion, Demonstration -Response to teaching Verbalize understanding WC - Visit Discharge [Visit Discharge Information] -Discharge Condition Stable -Ambulatory Status Ambulatory, Walker -Transportation Private Auto -Accompanied by -Medication Reconcilliation completed No & provided to patient/care provider -Clinical Summary of Care Provided Yes Musculoskeletal: Muscle Wasting, Tenderness, - - TMA left foot Neurological: - - Lack of epicritic sensation consistent with neuropathy Psych/Mental Status: Normal Affect, Appropriate Debridement Note Post-Debridement Measurements/Treatment WC - Nurse 2 - General Ulcer CM Notes Start: 09/05/20 11:10 Freq: Status: Active Protocol: Activity Type Activity Date Activity User E-Sign Co-Sign Detail Recorded Client Recorded Date Recorded By Document 09/05/20 11:57 OPAL [id number] 09/05/20 12:06 OPAL 09/05/20 11:57 Wound Center Nurse 2 #2- L LATERAL FOOT CLUSTER -Time 11:58 -Correct Patient Yes -Correct Side, Site, Position Yes -Correct Procedure Yes -Procedure Performed Yes -Type of Procedure Debridement -Clinical Debridement Subcutaneous -Tissue Removed Subcutaneous -Post Debridement (cm) - Length 1.4 -Post Debridement (cm) - Width 1.3 -Post Debridement (cm) - Depth 0.2 -Total Square (Post) (cm) 1.82 -Area of Debridement (cm) - Length 1.4 -Area of Debridement (cm) - Width 1.3 -Total Square (Area) (cm) 1.82 -Tunneling No -Undermining/Tunneling No -Circular Undermining No -Wound/Ulcer Outcome Not Healed -Ulcer Cleansing Rinsed/ Irrigated with Saline -Foul Odor after Cleansing No -Bioengineered Tissue No -Bleeding Controlled with Pressure -Offloading Yes -Type of Offloading Surgical Shoe -Treatment Response Procedure Tolerated Well -Debridement - Subq, 1st 20sq cm Yes #1- L LATERAL HEEL -Time 11:58 -Correct Patient Yes -Correct Side, Site, Position Yes -Correct Procedure Yes -Procedure Performed Yes -Type of Procedure Debridement -Clinical Debridement Subcutaneous -Tissue Removed Subcutaneous -Post Debridement (cm) - Length 5.6 -Post Debridement (cm) - Width 2.5 -Post Debridement (cm) - Depth 0.4 -Total Square (Post) (cm) 14.00 -Area of Debridement (cm) - Length 5.6 -Area of Debridement (cm) - Width 2.5 -Total Square (Area) (cm) 14.00 -Tunneling No -Undermining/Tunneling No -Circular Undermining No -Wound/Ulcer Outcome Not Healed -Ulcer Cleansing Rinsed/ Irrigated with Saline -Foul Odor after Cleansing No -Bioengineered Tissue No -Bleeding Controlled with Pressure -Offloading Yes -Type of Offloading Surgical Shoe -Treatment Response Procedure Tolerated Well -Debridement - Subq, 1st 20sq cm No Pain Scale: 0-10 Numeric Is Patient Pain Free? Yes - Nurse 3 - General Ulcer D/C NN Start: 09/05/20 11:10 Freq: Status: Active Protocol: Activity Type Activity Date Activity User E-Sign Co-Sign Detail Recorded Client Recorded Date Recorded By Document 09/05/20 12:09 OPAL [id number] 09/05/20 12:10 OPAL 09/05/20 12:09 Wound Care Nurse 3 #2- L LATERAL FOOT CLUSTER -Ulcer Cleansing Rinsed/ Irrigated with Saline -Foul Odor after Cleansing No -Negative Pressure Wound Therapy N/A -Other Dressing collagen hydrogel -Primary Dressing Covered/Secured with Dry Gauze & Roll Gauze, Secured with Tape #1- L LATERAL HEEL -Ulcer Cleansing Rinsed/ Irrigated with Saline -Foul Odor after Cleansing No -Negative Pressure Wound Therapy N/A -Other Dressing collagen hydrogel -Primary Dressing Covered/Secured with Dry Gauze & Roll Gauze, Secured with Tape Treatment Response Procedure Tolerated Well Pain Scale: 0-10 Numeric Is Patient Pain Free? Yes Teaching: Wound Center Dressing Your Wound -Person Taught Patient,Family -Teaching Method Discussion, Demonstration -Response to teaching Verbalize understanding WC - Visit Discharge Discharge Condition Stable Ambulatory Status Ambulatory, Walker Transportation Private Auto Accompanied by Medication Reconcilliation completed & No provided to patient/care provider Clinical Summary of Care Provided Yes Wound debrided: Lateral heel Laterality: Left Wound Grade/Stage: Barker 1 Type of Debridement: Excisional debridement Anesthesia Used: 4% Lidocaine Solution Depth: in the subcutaneous layer Percentage of wound debrided: 100 Instrument Used: 3mm curette Tissue Removed: Tissue removed includes fibrous, devitalized, biofilm, and slough tissue Severity: Fat Layer Exposed Amount of bleeding with debridement: Mild Bleeding Controlled with: Pressure Patient tolerated procedure well - Additional Wound Wound debrided: Lateral foot Laterality: Left Wound Grade/Stage: Barker 1 Type of Debridement: Excisional debridement Anesthesia Used: 4% Lidocaine Solution Depth: in the subcutaneous layer Percentage of wound debrided: 100 Instrument Used: 3mm curette Tissue Removed: Tissue removed includes fibrous, devitalized, biofilm, and slough tissue Severity: Fat Layer Exposed Amount of bleeding with debridement: Mild Bleeding Controlled with: Pressure Patient tolerated procedure: Patient tolerated procedure well Assessment/Plan Assessment: Left foot heel ulcer. Left foot lateral foot ulcer. Left foot cellulitis. History of left transmetatarsal amputation. Diabetes. peripheral vascular disease Plan: Patient is referral from Dr. Pelaez at the [facility]. Patient seen and examined. Culture from 07/18/2020 shows MSSA. Patient took Augmentin for cellulitis to the left heel ulceration. Patient has not been on antibiotic for the last week since intervention of angiogram. Wounds are worsening with reappearance of erythema and coolness and some drainage. The wounds have also gotten bigger. Discussed going back on 2 antibiotics. Patient had prescription for Augmentin sent to his pharmacy today September 05, 2020. Patient's creatinine clearance was 57 on 08/08/2020. Both ulcerations were sha rply debrided today without incident after verbal consent obtained. Patient underwent vascular intervention on 08/15/[address] Jeff. Patient has had previous surgical intervention with Dr. Jeff in the past. Patient has follow- up appoint with Dr. Jeff tomorrow. Discussed with patient and to talk with Dr. Jeff about any other possible interventions that may been available to him and to discuss with Dr. Jeff the worsening status of the wounds with reappearance of necrotic tissue. He had recent arterial studies on 06/13/20 showing monophasic waveforms and noncompressible bilateral PT and DP on the right with an left PAYAL of 0.78 on left. Discussed at length the importance of offloading with the patient in order to allow proper wound healing. Patient uses a walker. Patient states that he has an offloading shoe at home but is uncomfortable and twists when he tries to wear it while sleeping as he moves in his sleep. Patient does not wear it while sleeping. Discussed with patient the importance of his offloading suggested other alternative methods such as pillows or a doughnut offloading pad. Patient has no interest in this. Again the importance of offloading to allow ulcer to heal. Also discussed the importance of offloading when not sleeping such as in a chair with floating the heel with pillows. Patient also has a surgical shoe with cut out to offload the heel. He states he only wears this when he is out on the town and does not wear it at home. Discussed with patient the importance of proper nutrition and blood sugar control to also aid in wound healing. Patient and educated on proper dressing changes. Dressing changed. Patient to continue daily dressing changes with Santyl to both wounds. Patient was able to obtain sand hole that would cost over $200. This is not feasible football for the patient financially moving forward. We will adjust wound care as necessary after this tube runs out. Lateral heel wound noted to be cooler to the touch. Not as warm as previous visit but not as cold as it was prior to angio. There is also decreased erythema noted periwound. I have concerns about inadequate blood flow. Patient is to discuss any potential options available to him with Dr. Jeff at appointment tomorrow. Discussed with the patient that if there is nothing else Dr. Jeff can do for them that there is the possibility of needing further amputations or bone debridement if infection spreads. Discussed that given his poor blood flow status he might be best served with a BKA if further surgical intervention is necessary to give him the best chance of healing after surgery. Discussed that this is not something that is likely to happen right now but may be necessary in the future. Discussed that the wound to his lateral heel is close to the bone and we will try all that we can to prevent that from getting infected but without proper blood flow it will be very hard to heal the wounds. All questions answered. Patient is to follow-up in 1 week
[2020-09-12 11:00] VITALS: BP 91/32; PULSE 82; RESP 16; TEMP 35.8; BMI 24.4
--- NOTE | 2020-09-12 12:31 | PN.PCM_ITS ---
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 Cellulitis. Peripheral vascular disease History of Wound: Patient is a 75-year-old male who presents to the wound care center after being seen in office by Dr[facility] for chronic left foot wound. 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 He also has had left posterior heel ulceration. Patient had an angioplasty intervention with Dr. Jeff on 08/15/20. Patient has a history of peripheral vascular disease and has had surgical intervention in the past. Patient has taken Augmentin for heel ulcer infection. Patient had cultures obtained in office which showed MSSA. Patient states that he has an offloading boot that he kicks his way out of and wakes him up at night. Patient has not found any other method of offloading to assist during sleeping. Patient has elevated the foot on pillows when sitting in chairs to offload the heel. Patient also has an offloading heel cut out surgical shoe she only wears when he is out of the house. When he is in the house patient states that he goes barefoot. Patient reports decrease in pain over the last week, especially since his angio. Patient and saw Dr. Jeff and showed him the regression of the wound with more necrotic tissue and ask if there is anything else he can do. Patient is scheduled for possible further intervention 09/20/20. Progress of Wound: Worsening with reappearance of necrotic tissue and cooler temperature and surrounding erythema Subjective: Patient seen and examined resting comfortably. Patient and believe wound is getting worse. Patient denies any nausea, fever, chills, chest pain, shortness of breath, cough, streaking, purulence, vomiting. - Physical Exam Vital Signs Temp Pulse Resp BP 96.5 F L 82 16 91/32 L 09/12/20 11:00 09/12/20 11:00 09/12/20 11:00 09/12/20 11:00 General: Alert, Oriented x3 HEENT: Atraumatic Extremities: No clubbing, No edema, No Calf Tenderness, Cool - cooler than last week with worsening of surrounding blanchable erythema and necrotic tissue, Diminished Peripheral Pulses - non palpable left foot, Tenderness - ulcers Skin: Ulcer/ Wound - No malodor, purulence, probing to bone, streaking. There is some worsening erythema, fibrotic, necrotic, and coolness noted. Skin is atrophic and hairless. Granular/fibrotic base with light serosanguineous drainage after debridement. Left lateral 5th MPJ and heel ulcers. Heel ulcer is near bone. Wound Measurements and Assessment WC - Nurse 1 - General Ulcer Measurement Start: 09/05/20 11:10 Freq: Status: Active Protocol: Activity Type Activity Date Activity User E-Sign Co-Sign Detail Recorded Client Recorded Date Recorded By Document 09/12/20 11:00 [facility] [id number] 09/12/20 11:12 [facility] 09/12/20 11:00 Wound Center Nurse 1 [Ulcer Assessment] #2- L LATERAL FOOT CLUSTER -Combined with other wound No -Current Size (cm) - Length 1.3 -Current Size (cm) - Width 1.2 -Current Size (cm) - Depth 0.2 -Total Square Cm 1.56 -Photo Taken No -Epithelialization None Present -Tunneling No -Undermining/Tunneling No -Circular Undermining No -Exudate Amt Medium -Exudate Type Serosanguineous -Wound Margin Distinct, Outline Attached -Granulation Amt None Present (0 %) -Slough/Fibrin Yes -Necrosis Amt Large (67-100%) -Necrotic Tissue Type Adherent Slough -Texture (Stacy-wound Skin Appearance) Assessed, Scarring -Moisture (Stacy-wound Skin Appearance Assessed ) -Color (Stacy-wound Skin Appearance) Assessed, Erythema -Temperature (Stacy-wound Skin No Abnormality Appearance) (Pt Warm) -Tenderness on Palpation (Stacy-wound No Skin Appearance) -Ulcer Cleansing Rinsed/ Irrigated with Saline -Foul Odor after Cleansing No -Anesthetic Used 4% Lidocaine Solution #1- L LATERAL HEEL -Combined with other wound No -Current Size (cm) - Length 5.5 -Current Size (cm) - Width 2.9 -Current Size (cm) - Depth 0.7 -Total Square Cm 15.95 -Photo Taken No -Epithelialization None Present -Tunneling No -Undermining/Tunneling No -Circular Undermining No -Exudate Amt Medium -Exudate Type Serosanguineous -Wound Margin Distinct, Outline Attached -Granulation Amt None Present (0 %) -Slough/Fibrin Yes -Necrosis Amt Large (67-100%) -Necrotic Tissue Type Adherent Slough -Texture (Stacy-wound Skin Appearance) Scarring -Moisture (Stacy-wound Skin Appearance Assessed, ) Maceration,Dry/ Scaly -Color (Stacy-wound Skin Appearance) Assessed, Erythema,Palor -Temperature (Stacy-wound Skin No Abnormality Appearance) (Pt Warm) -Tenderness on Palpation (Stacy-wound No Skin Appearance) -Ulcer Cleansing Rinsed/ Irrigated with Saline -Foul Odor after Cleansing No -Anesthetic Used 4% Lidocaine Solution WC - Nurse 2 - General Ulcer CM Notes Start: 09/05/20 11:10 Freq: Status: Active Protocol: Activity Type Activity Date Activity User E-Sign Co-Sign Detail Recorded Client Recorded Date Recorded By Document 09/12/20 11:26 OPAL [id number] 09/12/20 11:30 OPAL 09/12/20 11:26 Wound Center Nurse 2 [Procedure/Treatment] #2- L LATERAL FOOT CLUSTER -Time 11:27 -Correct Patient Yes -Correct Side, Site, Position Yes -Correct Procedure Yes -Procedure Performed Yes -Type of Procedure Debridement -Clinical Debridement Subcutaneous -Tissue Removed Subcutaneous -Post Debridement (cm) - Length 1.1 -Post Debridement (cm) - Width 1 -Post Debridement (cm) - Depth 0.2 -Total Square (Post) (cm) 1.1 -Area of Debridement (cm) - Length 1.1 -Area of Debridement (cm) - Width 1 -Total Square (Area) (cm) 1.1 -Tunneling No -Undermining/Tunneling No -Circular Undermining No -Wound/Ulcer Outcome Not Healed -Ulcer Cleansing Rinsed/ Irrigated with Saline -Foul Odor after Cleansing No -Bioengineered Tissue No -Bleeding Controlled with Pressure -Offloading Yes -Type of Offloading Surgical Shoe -Treatment Response Procedure Tolerated Well -Debridement - Subq, 1st 20sq cm Yes #1- L LATERAL HEEL -Time 11:27 -Correct Patient Yes -Correct Side, Site, Position Yes -Correct Procedure Yes -Procedure Performed Yes -Type of Procedure Debridement -Clinical Debridement Subcutaneous -Tissue Removed Subcutaneous -Post Debridement (cm) - Length 5 -Post Debridement (cm) - Width 2.5 -Post Debridement (cm) - Depth 0.3 -Total Square (Post) (cm) 12.5 -Area of Debridement (cm) - Length 5 -Area of Debridement (cm) - Width 2.5 -Total Square (Area) (cm) 12.5 -Tunneling No -Undermining/Tunneling No -Circular Undermining No -Wound/Ulcer Outcome Not Healed -Ulcer Cleansing Rinsed/ Irrigated with Saline -Foul Odor after Cleansing No -Bioengineered Tissue No -Bleeding Controlled with Pressure -Offloading Yes -Type of Offloading Surgical Shoe -Treatment Response Procedure Tolerated Well -Debridement - Subq, 1st 20sq cm No [See Physician Procedure note for Specifics] Pain Scale: 0-10 Numeric [Pain] -Is Patient Pain Free? Yes WC - Nurse 3 - General Ulcer D/C NN Start: 09/05/20 11:10 Freq: Status: Active Protocol: Activity Type Activity Date Activity User E-Sign Co-Sign Detail Recorded Client Recorded Date Recorded By Document 09/12/20 11:44 [facility] [id number] 09/12/20 11:44 [facility] 09/12/20 11:44 Wound Care Nurse 3 [Wound Dressing] #2- L LATERAL FOOT CLUSTER -Ulcer Cleansing Rinsed/ Irrigated with Saline -Foul Odor after Cleansing No -Other Dressing betadine gauze -Primary Dressing Covered/Secured Dry Gauze & with Roll Gauze, Secured with Tape #1- L LATERAL HEEL -Ulcer Cleansing Rinsed/ Irrigated with Saline -Foul Odor after Cleansing No -Primary Dressing Applied Other -Other Dressing betadine gauze -Primary Dressing Covered/Secured Dry Gauze & with Roll Gauze, Secured with Tape,Other -Other Covering heel hat [Post Procedure Tolerated] -Treatment Response Procedure Tolerated Well Pain Scale: 0-10 Numeric [Pain] -Is Patient Pain Free? Yes - Visit Discharge [Visit Discharge Information] -Discharge Condition Stable -Ambulatory Status Ambulatory, Walker -Transportation Private Auto -Accompanied by Musculoskeletal: Muscle Wasting, Tenderness Neurological: - - decreased light touch sensation Psych/Mental Status: Normal Affect, Appropriate Debridement Note Post-Debridement Measurements/Treatment - Nurse 2 - General Ulcer CM Notes Start: 09/05/20 11:10 Freq: Status: Active Protocol: Activity Type Activity Date Activity User E-Sign Co-Sign Detail Recorded Client Recorded Date Recorded By Document 09/05/20 11:57 [id number] 09/05/20 12:06 Document 09/12/20 11:26 [id number] 09/12/20 11:30 09/05/20 09/12/20 11:57 11:26 Wound Center Nurse 2 #2- L LATERAL FOOT CLUSTER -Time 11:58 11:27 -Correct Patient Yes Yes -Correct Side, Site, Position Yes Yes -Correct Procedure Yes Yes -Procedure Performed Yes Yes -Type of Procedure Debridement Debridement -Clinical Debridement Subcutaneous Subcutaneous -Tissue Removed Subcutaneous Subcutaneous -Post Debridement (cm) - Length 1.4 1.1 -Post Debridement (cm) - Width 1.3 1 -Post Debridement (cm) - Depth 0.2 0.2 -Total Square (Post) (cm) 1.82 1.1 -Area of Debridement (cm) - Length 1.4 1.1 -Area of Debridement (cm) - Width 1.3 1 -Total Square (Area) (cm) 1.82 1.1 -Tunneling No No -Undermining/Tunneling No No -Circular Undermining No No -Wound/Ulcer Outcome Not Healed Not Healed -Ulcer Cleansing Rinsed/ Rinsed/ Irrigated with Irrigated with Saline Saline -Foul Odor after Cleansing No No -Bioengineered Tissue No No -Bleeding Controlled with Pressure Pressure -Offloading Yes Yes -Type of Offloading Surgical Shoe Surgical Shoe -Treatment Response Procedure Procedure Tolerated Well Tolerated Well -Debridement - Subq, 1st 20sq cm Yes Yes #1- L LATERAL HEEL -Time 11:58 11:27 -Correct Patient Yes Yes -Correct Side, Site, Position Yes Yes -Correct Procedure Yes Yes -Procedure Performed Yes Yes -Type of Procedure Debridement Debridement -Clinical Debridement Subcutaneous Subcutaneous -Tissue Removed Subcutaneous Subcutaneous -Post Debridement (cm) - Length 5.6 5 -Post Debridement (cm) - Width 2.5 2.5 -Post Debridement (cm) - Depth 0.4 0.3 -Total Square (Post) (cm) 14.00 12.5 -Area of Debridement (cm) - Length 5.6 5 -Area of Debridement (cm) - Width 2.5 2.5 -Total Square (Area) (cm) 14.00 12.5 -Tunneling No No -Undermining/Tunneling No No -Circular Undermining No No -Wound/Ulcer Outcome Not Healed Not Healed -Ulcer Cleansing Rinsed/ Rinsed/ Irrigated with Irrigated with Saline Saline -Foul Odor after Cleansing No No -Bioengineered Tissue No No -Bleeding Controlled with Pressure Pressure -Offloading Yes Yes -Type of Offloading Surgical Shoe Surgical Shoe -Treatment Response Procedure Procedure Tolerated Well Tolerated Well -Debridement - Subq, 1st 20sq cm No No Pain Scale: 0-10 Numeric Is Patient Pain Free? Yes Yes - Nurse 3 - General Ulcer D/C NN Start: 09/05/20 11:10 Freq: Status: Active Protocol: Activity Type Activity Date Activity User E-Sign Co-Sign Detail Recorded Client Recorded Date Recorded By Document 09/05/20 12:09 [id number] 09/05/20 12:10 Document 09/12/20 11:44 [facility] [id number] 09/12/20 11:44 [facility] 09/05/20 09/12/20 12:09 11:44 Wound Care Nurse 3 #2- L LATERAL FOOT CLUSTER -Ulcer Cleansing Rinsed/ Rinsed/ Irrigated with Irrigated with Saline Saline -Foul Odor after Cleansing No No -Negative Pressure Wound Therapy N/A -Other Dressing collagen betadine gauze hydrogel -Primary Dressing Covered/Secured with Dry Gauze & Dry Gauze & Roll Gauze, Roll Gauze, Secured with Secured with Tape Tape #1- L LATERAL HEEL -Ulcer Cleansing Rinsed/ Rinsed/ Irrigated with Irrigated with Saline Saline -Foul Odor after Cleansing No No -Negative Pressure Wound Therapy N/A -Primary Dressing Applied Other -Other Dressing collagen betadine gauze hydrogel -Primary Dressing Covered/Secured with Dry Gauze & Dry Gauze & Roll Gauze, Roll Gauze, Secured with Secured with Tape Tape,Other -Other Covering heel hat Treatment Response Procedure Procedure Tolerated Well Tolerated Well Pain Scale: 0-10 Numeric Is Patient Pain Free? Yes Yes Teaching: Wound Center Dressing Your Wound -Person Taught Patient,Family -Teaching Method Discussion, Demonstration -Response to teaching Verbalize understanding WC - Visit Discharge Discharge Condition Stable Stable Ambulatory Status Ambulatory, Ambulatory, Walker Walker Transportation Private Auto Private Auto Accompanied by Medication Reconcilliation completed & No provided to patient/care provider Clinical Summary of Care Provided Yes Wound debrided: lateral heel Laterality: Left Wound Grade/Stage: wagner2 Type of Debridement: Excisional debridement Anesthesia Used: 4% Lidocaine Solution Depth: in the subcutaneous layer - near bone Percentage of wound debrided: 100 Instrument Used: 3mm curette Tissue Removed: Tissue removed includes fibrous, devitalized, biofilm, and slough tissue Severity: Fat Layer Exposed Amount of bleeding with debridement: Mild Bleeding Controlled with: Pressure Patient tolerated procedure well - Additional Wound Wound debrided: lateral 5th MPJ Laterality: Left Wound Grade/Stage: hodges 1 Type of Debridement: Excisional debridement Anesthesia Used: 4% Lidocaine Solution Depth: in the subcutaneous layer Percentage of wound debrided: 100 Instrument Used: 3mm curette Tissue Removed: Tissue removed includes fibrous, devitalized, biofilm, and slough tissue Severity: Fat Layer Exposed Amount of bleeding with debridement: Mild Bleeding Controlled with: Pressure Patient tolerated procedure: Patient tolerated procedure well Assessment/Plan Active Problems (Last Updated 03/15/20 @ 19:22 by Luz Maria Mcnally) Type 2 diabetes mellitus with foot ulcer (Chronic) Non-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 (Chronic) Peripheral vascular occlusive disease (Chronic) Left above and below the knee popliteal and tibioperoneal trunk atherectomy and angioplasty 06/28/14 Left below the knee popliteal atherectomy w/ angioplasty 12/29/13 Assessment: Left foot heel ulcer. Left foot lateral foot ulcer. Left foot cellulitis. History of left transmetatarsal amputation. Diabetes. peripheral vascular disease Plan: Patient is referral from Dr. Pelaez at the [facility]. Patient seen and examined. Culture from 07/18/2020 shows MSSA. Patient took Augmentin for cellulitis to the left heel ulceration. Wounds are worsening with reappearance of erythema, necrotic tissue, and coolness and some drainage. The wounds have also gotten bigger. Patient had continuing Augmentin prescribed September 05, 2020. Patient's creatinine clearance was 57 on 08/08/2020. Both ulcerations were sharply debrided today without incident after verbal consent obtained. Patient underwent vascular intervention on 08/15/[address] Jeff. Patient has had previous surgical intervention with Dr. Jeff in the past. Patient had follow-up appoint with Dr. Jeff last week where further intervention planned for next Friday. He had recent arterial studies on 06/13/20 showing monophasic waveforms and noncompressible bilateral PT and DP on the right with an left PAYAL of 0.78 on left. Discussed at length the importance of offloading with the patient in order to allow proper wound healing. Patient uses a walker. Patient states that he has an offloading shoe at home but is uncomfortable and twists when he tries to wear it while sleeping as he moves in his sleep. Patient does not wear it while sleeping. Discussed with patient the importance of his offloading suggested other alternative methods such as pillows or a doughnut offloading pad. Patient has no interest in this. Again the importance of offloading to allow ulcer to heal. Also discussed the importance of offloading when not sleeping such as in a chair with floating the heel with pillows. Patient also has a surgical shoe with cut out to offload the heel. He states he only wears this when he is out on the town and does not wear it at home. Discussed with patient the importance of proper nutrition and blood sugar control to also aid in wound healing. Patient and educated on proper dressing changes. Dressing changed. To start betadine dressings to keep wounds stable until after vascular intervention can be completed. Lateral heel wound noted to be cooler to the touch. Not as warm as previous visit but not as cold as it was prior to angio. There is also increased erythema noted periwound. I have concerns about inadequate blood flow. Discussed with the patient that if there is nothing else Dr. Jeff can do for them that there is the possibility of needing further amputations or bone debridement if infection spreads to bone. Discussed that given his poor blood flow status he might be best served with a BKA if further surgical intervention is necessary to give him the best chance of healing after surgery. Discussed that this is not something that is likely to happen right now but may be necessary in the future. Discussed palliative wound care as an option as well. Discussed that the wound to his lateral heel is close to the bone and we will try all that we can to prevent that from getting infec velia but without proper blood flow it will be very hard to heal the wounds. All questions answered. Patient is to follow-up in 1 week. The problems addressed require a low medical decision making level which includes two or more minor problems, a stable chronic illness, or an acute uncomplicated illness or injury. This note was generated with [employer] dictation software. It may contain incorrect words, spelling, and punctuation that were not noted in checking the note before signing.
== END 2020-10-01 23:59 ==
LOC: WC 11:00
PROVIDERS: PCP Family Medicine; Referring Provider Podiatrist; Visit Provider Podiatrist Foot & Ankle Surgery
DX: E11.621 Type 2 diabetes mellitus with foot ulcer (principal); L97.422 Non-pressure chronic ulcer of left heel and midfoot with fat layer exposed; E11.51 Type 2 diabetes mellitus with diabetic peripheral angiopathy without gangrene; L97.522 Non-pressure chronic ulcer of other part of left foot with fat layer exposed; L03.116 Cellulitis of left lower limb; Z89.432 Acquired absence of left foot
CPT/HCPCS: 11042

== ENCOUNTER → 2020-09-14 09:55 | Outpatient (CLI) | payer MEDICARE, OTHER, SELFPAY ==
[2020-09-05 11:12] VITALS: BMI 24.4
[2020-09-12 11:00] VITALS: BMI 24.4
--- NOTE | 2020-09-14 09:59 | ART_ITS ---
Reason For Study: atherosclerosis Procedure A bilateral lower extremity continuous wave Doppler with analog waveform analysis and ankle brachial indexes. Left Segmental Pressures Left brachial= 128mmHg. The left posterior tibial artery waveforms are monophasic. The left dorsalis pedis waveforms are absent. CELLOPHANER was noncompressible. Right Segmental Pressures Right brachial= 121mmHg. The right dorsalis pedis waveforms are triphasic. The right posterior tibial artery waveforms are triphasic. CELLOPHANER and DPA are noncompressible. Indices CELLOPHANER and DPA are noncompressible. CELLOPHANER is noncompressible. Interpretation Summary Bilateral noncompressible but triphasic flow in right leg and severely diminished with monophasic flow in left leg. Ordering Physician: Nikita Jeff Performed By: KIERRA DHALIWAL [facility]
--- NOTE | 2020-09-14 10:00 | ADUL_ITS ---
Reason For Study: atheroslerosis Left Velocities Ext Iliac Artery, dist = 66.5 cm./sec. Common Femoral Artery, mid = 52.2 cm./sec. Supf. Femoral Artery, prox = 53.3 cm./sec. Supf. Femoral Artery, mid = 63.2 cm./sec. Unable to demonstrate flow in the distal SFA. Profunda Femoral Artery = 74.2 cm./sec. Unable to demonstrate flow in the POP Artery. Unable to demonstrate flow in the Prox CUSTOMER FIELD REPRESENTATIVE. Unable to demonstrate flow in the CLAUDIA. Post Tibial Artery, mid = 13.8 cm./sec. Post Tibial Artery, dist. = 24.8 cm./sec. Peroneal Artery, prox = 16.0 cm./sec. Peroneal Artery, mid = 19.3 cm./sec. Peroneal Artery,dist. = 19.3 cm./sec. Procedure The exam was diagnostic. Interpretation Summary Left distal femoral through popliteal occluded with also occlussions in posterior tibial and anterior tibial. Ordering Physician: Nikita Jeff Performed By: Joo El, RVT
== END ==
PROVIDERS: PCP Family Medicine; Visit Provider Surgery Vascular Surgery
DX: I77.1 Stricture of artery (principal); I70.213 Atherosclerosis of native arteries of extremities with intermittent claudication, bilateral legs; R56.9 Unspecified convulsions; I51.9 Heart disease, unspecified; E78.70 Disorder of bile acid and cholesterol metabolism, unspecified; E11.9 Type 2 diabetes mellitus without complications
CPT/HCPCS: 93922; 93926

== ENCOUNTER 2020-10-10 09:43 | Emergency (ER) | payer MEDICARE, OTHER, SELFPAY ==
[2020-10-10 08:52] VITALS: BMI 24.4
[2020-10-10 09:44] VITALS: BP 116/77; PULSE 83; RESP 18; TEMP 36.6; O2SAT 99; BMI 23.0
--- NOTE | 2020-10-10 10:21 | EKG12_ITS ---
Test Reason : TOE INFECTION Blood Pressure : / mmHG Vent. Rate : 078 BPM Atrial Rate : 058 BPM P-R Int : 000 ms QRS Dur : 104 ms QT Int : 362 ms P-R-T Axes : 000 -29 -08 degrees QTc Int : 412 ms Atrial fibrillation Inferior infarct , age undetermined Abnormal ECG Confirmed by BARB NG, MALIKA ([id number]), editorial cartoonist SANDY GOMES ([id number]) on 10/16/2020 10:22:56 A M Referred By: /BB Confirmed By:BAUTISTA DAY MD
--- NOTE | 2020-10-10 10:22 | CT_ITS ---
STUDY: CT BRAIN WITHOUT CONTRAST REASON FOR EXAM: Male, 75 years old. fall trauma anticoagulated RADIATION DOSAGE (If Supplied By Facility): CTDIvol = ( 44.99 ) mGy, DLP = ( 812.98 ) mGycm TECHNIQUE: Transaxial CT imaging of the brain was performed without administration of intravenous contrast material. Individualized dose optimization techniques were used for this CT. COMPARISON: No relevant priors. FINDINGS: Normal soft tissue structures. Normal calvarium. Normal size ventricles and extra-axial spaces for the patient''s age. There are areas of decreased attenuation within the white matter tracts of the supratentorial brain, consistent with microvascular disease changes. Normal basal ganglia and thalami. Normal brainstem. Normal cerebellum. There is no intracranial hemorrhage. There are no findings of an acute ischemic infarction. There is mucoperiosteal inflammatory disease of the paranasal sinuses consistent with mild chronic sinusitis. There is a mucosal retention cyst in the sphenoid sinus measures 2.[address]/Brain/Head without Contrast IMPRESSION: Chronic involutional changes of the brain. Electronically Signed: Marisel Reid MD at 11:40 EST Tel , Service support ,
--- NOTE | 2020-10-10 10:22 | ED.VIS.GEN ---
History of Present Illness Chief Complaint: Dizziness Informant: Patient, Significant Other Onset: Hours - 1 - 2 Context: Gradual Onset Timing: Intermittent - x1, Lasts - 20 min Quality: Lightheaded Current Severity: - - gone Maximum Severity: Moderate Worsened by: Standing Relieved by: Sitting Associated Symptoms: Weak all over, a little sweaty Narrative: Patient felt lightheaded and weak, like his blood sugar had fallen. He was coming out of the wound care clinic, having debridement on his diabetic foot wound on the left, for which he is on antibiotics and has regular visits. He did not have anything available to check his blood sugar, but he nearly passed out and fell to the ground, hitting his head on the floor. There was no loss of consciousness. He denies had headache, vision changes, peripheral neurologic symptoms, and now he feels back to normal but it was recommended that he come here because he is on Plavix and he is anticoagulated. He has history of atrial fibrillation and a recent cardiac stent. He denies having any chest symptoms today including heaviness/discomfort, shortness of breath, palpitations. Now he feels fine. This morning prior to going to the wound clinic, he states he is blood sugar was on the high side he took his NovoLog, and he did eat something but it was not very much, some peanut butter on toast and some coffee. 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 (2) Atherosclerosis of coronary artery of resighini heart without angina pectoris Status: Chronic (3) Chronic diastolic (congestive) heart failure Status: Chronic (4) Essential (primary) hypertension Status: Chronic (5) Hyperlipidemia Status: Chronic (6) Non-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 Status: Chronic (7) Non-pressure chronic ulcer of other part of left foot with fat layer exposed Status: Chronic (8) Nonrheumatic aortic (valve) stenosis Status: Chronic (9) Peripheral vascular occlusive disease Status: Chronic Comment: Left above and below the knee popliteal and tibioperoneal trunk atherectomy and angioplasty 06/28/14 Left below the knee popliteal atherectomy w/ angioplasty 12/29/13 (10) Persistent atrial fibrillation Status: Chronic (11) Type 2 diabetes mellitus with foot ulcer Status: Chronic (12) History of coronary artery stent placement Status: Resolved Comment: PCI-ROSAS-Mid LAD w/ 2.5 x 30 mm and 2.5 x 18 mm w/ Resolute Rx Stent 08/26/16 Past Medical History - Allergies and Home Meds Allergies/Adverse Reactions: Allergies carbamazepine [From Tegretol] Allergy (Verified 10/10/20 09:46) Rash Primary Care Physician: Jerry Dee MD [Primary Care Provider] - Surgical History: herniorrhaphy - Ventral and right inguinal hernia repair 05/24/19, TURP - The extent Lives: Spouse/ Significant Other Smoking Status: Never smoker Review of Systems General: Reports: Malaise - See HPI. Denies: Chills, Fever, Sweats Eyes: Denies: Visual changes - bilaterally, Diplopia ENT: Denies: Bilateral ear pain, Rhinorrhea, Sore throat Cardiovascular: Denies: Chest pain, Palpitations Respiratory: Denies: Dyspnea, Cough, Dyspnea on exertion Gastrointestinal: Denies: Abdominal pain, Nausea, Vomiting, Diarrhea, Melena, Hematochezia Genitourinary: Denies: Dysuria, Hematuria, Frequency Musculoskeletal: Reports: Extremity Pain - -11/11, since having debridement of wound today. No pain preceding that.. Denies: Neck pain, Back pain Skin: Reports: Wounds. Denies: Rash Neurological: Denies: Headache, Weakness Physical Exam Vital Signs/Narrative: Vital Signs Temp Pulse Resp BP Pulse Ox 10/10/20 09:44 97.9 F 83 18 116/77 99 Inital Vital Signs reviewed: Yes General: Well nourished, Well developed, No Acute Distress Head: Normocephalic, Atraumatic - No forehead tenderness or crepitance/depression where patient hit Eyes: Perrl, EOMI ENT: Moist mucous membranes, No rhinorrhea, - - Left lateral lip contusion/internal abrasion without laceration or active bleeding. No other facial trauma. Neck: Supple, Nontender Cardiovascular: Regular rate, Regular rhythm, No murmurs Respiratory: No distress, CTA bilaterally, Chest nontender Abdomen: Soft, Nontender, Nondistended, Normal bowel sounds Back: Nontender, Normal Inspection Extremities: Nontender, No edema Skin: Normal color, No rash, - - Left lower extremity multiple foot wounds. Mild oozing of blood at the lateral midfoot wound which patient states was debrided today. No abscess. Neurological: Alert, Oriented x3, Cranial nerves II-XII grossly intact, Normal Strength, Normal Sensation Psychological: Normal affect, Normal Mood Diagnostic/Tx/Re-eval Impressions Brain CT 10/10/20 10:22 IMPRESSION: Chronic involutional changes of the brain. Electronically Signed: Marisel Reid MD at 11:40 EST Tel , Service support , 10/10/20 10:22 CT Brain [Brain/Head without Contrast] [CT] Stat Laboratory Results 10/10/20 10/10/20 10/10/20 10:40 10:40 11:52 WBC 8.3 RBC 4.68 Hgb 14.0 Hct 44.4 MCV 94.9 H MCH 29.9 MCHC 31.5 L RDW Std Deviation 47.2 H RDW Coeff of Danis 13.5 Plt Count 259 MPV 9.0 Immature Gran % (Auto) 0.200 Neut % (Auto) 72.1 H Lymph % (Auto) 13.8 L Trinity % (Auto) 8.8 Eos % (Auto) 4.3 Baso % (Auto) 0.8 Absolute Neuts (auto) 6.0 Absolute Lymphs (auto) 1.15 Nucleated RBC % 0 Sodium 141 Potassium 3.9 Chloride 105 Carbon Dioxide 28.0 Anion Gap 8 BUN 18 Creatinine 1.00 Estim Creat Clear Calc 65.49 Est GFR (MDRD) Af Amer 93 Est GFR (MDRD) Non-Af 77 BUN/Creatinine Ratio 18.0 Glucose 55 L Calcium 8.9 Troponin I < 0.015 POC Glucose 46 L 10/10/20 12:20 WBC RBC Hgb Hct MCV MCH MCHC RDW Std Deviation RDW Coeff of Danis Plt Count MPV Immature Gran % (Auto) Neut % (Auto) Lymph % (Auto) Trinity % (Auto) Eos % (Auto) Baso % (Auto) Absolute Neuts (auto) Absolute Lymphs (auto) Nucleated RBC % Sodium Potassium Chloride Carbon Dioxide Anion Gap BUN Creatinine Estim Creat Clear Calc Est GFR (MDRD) Af Amer Est GFR (MDRD) Non-Af BUN/Creatinine Ratio Glucose Calcium Troponin I POC Glucose 79 - Rhythm Strip Rhythm Strip: A-fib Rate: 80 Ectopy: None - EKG Initial EKG Interpretation: No Acute Injury Pattern, Atrial Fibrillation Prior: Unchanged - Medical Decision Making Glucose check even though the patient is asymptomatic shows that his level is at 46. He was given something to eat and drink, this came up to the 70s and he still felt fine throughout his ED observation. His work-up is otherwise negative, CT of the head shows no acute injury. His EKG does show atrial fibrillation it is rate controlled and he has a history of persistent atrial fibrillation. There is nothing acute otherwise there, and he is feeling well, ambulatory, we gave him a new dressing for his foot wounds, and he is discharged in stable condition assuming that hypoglycemia was the cause of his symptoms. ED Disposition - Plan for ED Patient: Disposition: Home or Assisted Living Diagnosis: Hypoglycemia associated with diabetes, Persistent atrial fibrillation, Non-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, Non-pressure chronic ulcer of other part of left foot with fat layer exposed Instructions: ED Diabetic Insulin Reaction Referrals: Jerry Dee MD [Primary Care Provider] - As Needed
[2020-10-10 10:51] LABS: Absolute Lymphocyte Count 1.15 X10^3/uL (0.83-4.51); Basophil# 0.07 X10^3/uL; Basophil% 0.8 % (0-1); Eosinophil# 0.36 X10^3/uL; Eosinophils% 4.3 % (0-5); Hematocrit 44.4 % (40-54); Lymphocyte # 1.15 X10^3/ul (4.0); Lymphocyte % 13.8 % (19-41); Mean Corp Hgb Conc 31.5 g/dL (32-36); Mean Corpuscular Hgb 29.9 pg (27.0-32.0); Mean Corpuscular Volume 94.9 fL (80-94); Monocyte# 0.73 X10^3/uL; Monocyte% 8.8 % (0-10); NRBC Flagged by Analyzer 0 % (0-5); Neutrophil # 5.98 X10^3/uL (2.7-7.7); Neutrophil % 72.1 % (47-70); Platelet Count 259 K/mm3 (150-450); RBC Distribution Width CV 13.5 % (11.6-14.6); RBC Distribution Width SD 47.2 fl (35.1-43.9); Red Blood Count 4.68 M/mm3 (4.6-6.2); White Blood Count 8.3 K/mm3 (4.4-11.0)
[2020-10-10 11:16] LABS: Anion Gap 8 (5-15); BUN 18 mg/dL (7-18); Calcium,Total 8.9 mg/dL (8.5-10.1); Chloride 105 mmol/L (98-107); EST Glomerular Filtration Rate 77 mL/min (>60); Est Glom Filt Rate - Afr Amer 93 mL/min (>60); Estimated Creatinine Clearance 65.49 ml/min; Glucose 55 mg/dL (74-106); Potassium 3.9 mmol/L (3.5-5.1); Sodium Level 141 mmol/L (136-145)
[2020-10-10 11:44] VITALS: BP 133/77; PULSE 85; RESP 23; O2SAT 100
--- NOTE | 2020-10-10 12:25 | ED.RN ---
rechecked 15min after applejuice and peanut butter given.
[2020-10-10 12:26] LABS: Bedside Glucose 79 mg/dL (70-110)
[2020-10-10 12:26] LABS: Bedside Glucose 46 mg/dL (70-110)
[2020-10-10 13:00] VITALS: BP 166/89; PULSE 80; RESP 14; O2SAT 100
== END 2020-10-10 13:47 | disposition home or self-care (01) ==
PROVIDERS: Emergency Provider Emergency Medicine; PCP Family Medicine
DX: E11.649 Type 2 diabetes mellitus with hypoglycemia without coma (principal); I48.19 Other persistent atrial fibrillation; E11.621 Type 2 diabetes mellitus with foot ulcer; L97.422 Non-pressure chronic ulcer of left heel and midfoot with fat layer exposed; L97.522 Non-pressure chronic ulcer of other part of left foot with fat layer exposed; I25.10 Atherosclerotic heart disease of native coronary artery without angina pectoris; L03.116 Cellulitis of left lower limb; Z95.5 Presence of coronary angioplasty implant and graft; Z90.79 Acquired absence of other genital organ(s)
CPT/HCPCS: 11042; 70450; 80048; 82962; 84484; 85025; 93005; 99284

== ENCOUNTER → 2020-10-23 10:14 | Outpatient (CLI) | payer MEDICARE, OTHER, SELFPAY ==
[2020-10-23 10:14] VITALS: BMI 23.0
== END ==
PROVIDERS: PCP Family Medicine; Visit Provider Family Medicine
DX: Z00.00 Encounter for general adult medical examination without abnormal findings (principal)

== ENCOUNTER 2020-10-31 09:45 | Outpatient (RCR) | payer MEDICARE, OTHER, SELFPAY ==
[2020-10-02 00:30] VITALS: BP 91/32; PULSE 82; RESP 16; TEMP 35.8
[2020-10-03 11:27] VITALS: BP 119/71; PULSE 83; RESP 17; TEMP 35.6; BMI 24.4
--- NOTE | 2020-10-04 13:29 | PCM.WC.PN ---
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 Code(s): L97.422 - Non-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 (4) Non-pressure chronic ulcer of other part of left foot with fat layer exposed Status: Chronic Code(s): L97.522 - Non-pressure chronic ulcer of other part of left foot with fat layer exposed (5) Peripheral vascular occlusive disease Status: Chronic Code(s): I73.9 - Peripheral vascular disease, unspecified Comment: Left above and below the knee popliteal and tibioperoneal trunk atherectomy and angioplasty 06/28/14 Left below the knee popliteal atherectomy w/ angioplasty 12/29/13 (6) Cellulitis of foot, left Status: Acute Code(s): L03.116 - Cellulitis of left lower limb Type of Wound Date of Service: 10/03/20 Chief Complaint: Left heel and lateral foot ulcerations. Cellulitis. Peripheral vascular disease History of Wound: Patient is a 75-year-old male who presents to the wound care center after being seen in office by Dr[facility] for chronic left foot wound. 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 He also has had left posterior heel ulceration. Patient had an angioplasty intervention with Dr. Jeff on 08/15/20. Patient had another intervention 09/20/20. Patient has a history of peripheral vascular disease and has had surgical intervention in the past. Patient has taken Augmentin for heel ulcer infection. Patient had previous cultures obtained in office which showed MSSA. Patient states that he has an offloading boot that he kicks his way out of and wakes him up at night. Patient has not found any other method of offloading to assist during sleeping. Patient has elevated the foot on pillows when sitting in chairs to offload the heel. Patient also has an offloading heel cut out surgical shoe she only wears when he is out of the house. When he is in the house patient states that he goes barefoot. Patient reports decrease in pain over the last week, especially since his angio. Patient and saw Dr. Jeff and showed him the regression of the wound with more necrotic tissue and ask if there is anything else he can do. Patient is scheduled for possible further intervention 09/20/20. Progress of Wound: Worsening with reappearance increase in size and fibrotic and necrotic tissue and cooler temperature and surrounding erythema Subjective: Patient seen and examined resting comfortably. Patient denies any new pedal complaints. Patient denies any nausea, fever, chills, chest pain, shortness of breath, cough, streaking, purulence, vomiting. He relates wounds seem bigger and redness has returned. - Physical Exam Vital Signs Temp Pulse Resp BP 96.1 F L 83 17 119/71 10/03/20 11:27 10/03/20 11:27 10/03/20 11:27 10/03/20 11:27 General: Alert, Oriented x3 HEENT: Atraumatic Extremities: No clubbing, No cyanosis, No edema, Capillary Refill Less than 3 Seconds, No Calf Tenderness, Diminished Peripheral Pulses Skin: Ulcer/ Wound - left lateral heel and foot. No malodor, purulence, probing to bone. There is erythema and local edema. Skin is atrophic and hairless. Base is fibrotic and necrotic. Skin is warm. Sanginous drainage noted., - - new fissure ulcerations noted to stump of TMA left foot with granular base, mild surrounding maceration, no signs of infection Wound Measurements and Assessment WC - Nurse 1 - General Ulcer Measurement Start: 10/03/20 11:27 Freq: Status: Active Protocol: Activity Type Activity Date Activity User E-Sign Co-Sign Detail Recorded Client Recorded Date Recorded By Document 10/03/20 11:27 MS [id number] 10/03/20 11:49 MS 10/03/20 11:27 Wound Center Nurse 1 [Ulcer Assessment] 3-Left TMA cluster -Current Size (cm) - Length 1.4 -Current Size (cm) - Width 0.1 -Current Size (cm) - Depth 0.1 -Total Square Cm 0.14 -Exudate Amt None Present -Wound Margin Distinct, Outline Attached -Granulation Amt None Present (0 %) -Slough/Fibrin No -Temperature (Stacy-wound Skin No Abnormality Appearance) (Pt Warm) -Tenderness on Palpation (Stacy-wound No Skin Appearance) -Ulcer Cleansing Rinsed/ Irrigated with Saline -Foul Odor after Cleansing No #2- L LATERAL FOOT -Current Size (cm) - Length 2.5 -Current Size (cm) - Width 3.5 -Current Size (cm) - Depth 0.2 -Total Square Cm 8.75 -Exudate Amt Large -Slough/Fibrin Yes -Necrotic Tissue Type Adherent Slough -Texture (Stacy-wound Skin Appearance) No Abnormality -Moisture (Stacy-wound Skin Appearance No Abnormality ) -Color (Stacy-wound Skin Appearance) No Abnormality -Ulcer Cleansing soap and water -Anesthetic Used 4% Lidocaine Solution #1- L LATERAL HEEL -Current Size (cm) - Length 3.8 -Current Size (cm) - Width 5.3 -Current Size (cm) - Depth 0.3 -Total Square Cm 20.14 -Exudate Amt Large -Exudate Type Serosanguineous -Wound Margin Distinct, Outline Attached -Granulation Amt None Present (0 %) -Slough/Fibrin Yes -Texture (Stacy-wound Skin Appearance) No Abnormality -Moisture (Stacy-wound Skin Appearance No Abnormality ) -Color (Stacy-wound Skin Appearance) No Abnormality -Temperature (Stacy-wound Skin No Abnormality Appearance) (Pt Warm) -Ulcer Cleansing Rinsed/ Irrigated with Saline -Foul Odor after Cleansing No -Anesthetic Used 4% Lidocaine Solution WC - Nurse 2 - General Ulcer CM Notes Start: 10/03/20 11:27 Freq: Status: Active Protocol: Activity Type Activity Date Activity User E-Sign Co-Sign Detail Recorded Client Recorded Date Recorded By Document 10/03/20 12:23 OPAL [id number] 10/03/20 12:44 OPAL 10/03/20 12:23 Wound Center Nurse 2 [Procedure/Treatment] 3-Left TMA cluster -Time 12:28 -Correct Patient Yes -Correct Side, Site, Position Yes -Correct Procedure Yes -Procedure Performed Yes -Type of Procedure Debridement -Clinical Debridement Subcutaneous -Tissue Removed Subcutaneous -Post Debridement (cm) - Length 4.5 -Post Debridement (cm) - Width 1.3 -Post Debridement (cm) - Depth 0.2 -Total Square (Post) (cm) 5.85 -Area of Debridement (cm) - Length 4.5 -Area of Debridement (cm) - Width 1.3 -Total Square (Area) (cm) 5.85 -Tunneling No -Undermining/Tunneling No -Circular Undermining No -Wound/Ulcer Outcome Not Healed -Ulcer Cleansing Rinsed/ Irrigated with Saline -Foul Odor after Cleansing No -Bioengineered Tissue No -Bleeding Controlled with Pressure -Other 10% ulcer debrided. -Offloading Yes -Type of Offloading Surgical Shoe -Treatment Response Procedure Tolerated Well -Debridement - Subq, 1st 20sq cm Yes #2- L LATERAL FOOT -Time 12:31 -Correct Patient Yes -Correct Side, Site, Position Yes -Correct Procedure Yes -Procedure Performed Yes -Type of Procedure Debridement -Clinical Debridement Subcutaneous -Tissue Removed Subcutaneous -Post Debridement (cm) - Length 2 -Post Debridement (cm) - Width 1.9 -Post Debridement (cm) - Depth 0.2 -Total Square (Post) (cm) 3.8 -Area of Debridement (cm) - Length 2 -Area of Debridement (cm) - Width 1.9 -Total Square (Area) (cm) 3.8 -Tunneling No -Undermining/Tunneling No -Circular Undermining No -Wound/Ulcer Outcome Not Healed -Ulcer Cleansing Rinsed/ Irrigated with Saline -Foul Odor after Cleansing No -Bioengineered Tissue No -Bleeding Controlled with Pressure -Offloading Yes -Type of Offloading Surgical Shoe -Treatment Response Procedure Tolerated Well -Debridement - Subq, 1st 20sq cm No #1- L LATERAL HEEL -Time 12:39 -Correct Patient Yes -Correct Side, Site, Position Yes -Correct Procedure Yes -Procedure Performed Yes -Type of Procedure Debridement -Clinical Debridement Subcutaneous -Tissue Removed Subcutaneous -Post Debridement (cm) - Length 5.7 -Post Debridement (cm) - Width 3 -Post Debridement (cm) - Depth 0.1 -Total Square (Post) (cm) 17.1 -Area of Debridement (cm) - Length 5.7 -Area of Debridement (cm) - Width 3 -Total Square (Area) (cm) 17.1 -Tunneling No -Undermining/Tunneling No -Circular Undermining No -Wound/Ulcer Outcome Not Healed -Ulcer Cleansing Rinsed/ Irrigated with Saline -Foul Odor after Cleansing No -Bioengineered Tissue No -Bleeding Controlled with Pressure -Offloading Yes -Type of Offloading Surgical Shoe -Treatment Response Procedure Tolerated Well -Debridement - Subq, 1st 20sq cm No [See Physician Procedure note for Specifics] - Nurse 3 - General Ulcer D/C NN Start: 10/03/20 11:27 Freq: Status: Active Protocol: Activity Type Activity Date Activity User E-Sign Co-Sign Detail Recorded Client Recorded Date Recorded By Document 10/03/20 12:44 OPAL [id number] 10/03/20 12:45 OPAL 10/03/20 12:44 Wound Care Nurse 3 [Wound Dressing] 3-Left TMA cluster -Ulcer Cleansing Rinsed/ Irrigated with Saline -Foul Odor after Cleansing No -Primary Dressing Applied Enzymatic -Primary Dressing Covered/Secured Dry Gauze & with Roll Gauze, Secured with Tape #2- L LATERAL FOOT -Ulcer Cleansing Rinsed/ Irrigated with Saline -Foul Odor after Cleansing No -Primary Dressing Applied Enzymatic -Primary Dressing Covered/Secured Dry Gauze & with Roll Gauze, Secured with Tape #1- L LATERAL HEEL -Ulcer Cleansing Rinsed/ Irrigated with Saline -Foul Odor after Cleansing No -Primary Dressing Applied Enzymatic -Primary Dressing Covered/Secured Dry Gauze & with Roll Gauze, Secured with Tape Pain Scale: 0-10 Numeric [Pain] -Is Patient Pain Free? Yes - Visit Discharge [Visit Discharge Information] -Discharge Condition Stable -Ambulatory Status Wheelchair -Transportation Private Auto -Accompanied by -Medication Reconcilliation completed Yes & provided to patient/care provider -Clinical Summary of Care Provided Yes Musculoskeletal: Muscle Wasting, Tenderness, - - TMA left Neurological: - - decreased epicritic sensation Psych/Mental Status: Normal Affect, Appropriate Debridement Note Post-Debridement Measurements/Treatment [email or web address] - Nurse 2 - General Ulcer CM Notes Start: 10/03/20 11:27 Freq: Status: Active Protocol: Activity Type Activity Date Activity User E-Sign Co-Sign Detail Recorded Client Recorded Date Recorded By Document 10/03/20 12:23 [email or web address] [id number] 10/03/20 12:44 10/03/20 12:23 Wound Center Nurse 2 3-Left TMA cluster -Time 12:28 -Correct Patient Yes -Correct Side, Site, Position Yes -Correct Procedure Yes -Procedure Performed Yes -Type of Procedure Debridement -Clinical Debridement Subcutaneous -Tissue Removed Subcutaneous -Post Debridement (cm) - Length 4.5 -Post Debridement (cm) - Width 1.3 -Post Debridement (cm) - Depth 0.2 -Total Square (Post) (cm) 5.85 -Area of Debridement (cm) - Length 4.5 -Area of Debridement (cm) - Width 1.3 -Total Square (Area) (cm) 5.85 -Tunneling No -Undermining/Tunneling No -Circular Undermining No -Wound/Ulcer Outcome Not Healed -Ulcer Cleansing Rinsed/ Irrigated with Saline -Foul Odor after Cleansing No -Bioengineered Tissue No -Bleeding Controlled with Pressure -Other 10% ulcer debrided. -Offloading Yes -Type of Offloading Surgical Shoe -Treatment Response Procedure Tolerated Well -Debridement - Subq, 1st 20sq cm Yes #2- L LATERAL FOOT -Time 12:31 -Correct Patient Yes -Correct Side, Site, Position Yes -Correct Procedure Yes -Procedure Performed Yes -Type of Procedure Debridement -Clinical Debridement Subcutaneous -Tissue Removed Subcutaneous -Post Debridement (cm) - Length 2 -Post Debridement (cm) - Width 1.9 -Post Debridement (cm) - Depth 0.2 -Total Square (Post) (cm) 3.8 -Area of Debridement (cm) - Length 2 -Area of Debridement (cm) - Width 1.9 -Total Square (Area) (cm) 3.8 -Tunneling No -Undermining/Tunneling No -Circular Undermining No -Wound/Ulcer Outcome Not Healed -Ulcer Cleansing Rinsed/ Irrigated with Saline -Foul Odor after Cleansing No -Bioengineered Tissue No -Bleeding Controlled with Pressure -Offloading Yes -Type of Offloading Surgical Shoe -Treatment Response Procedure Tolerated Well -Debridement - Subq, 1st 20sq cm No #1- L LATERAL HEEL -Time 12:39 -Correct Patient Yes -Correct Side, Site, Position Yes -Correct Procedure Yes -Procedure Performed Yes -Type of Procedure Debridement -Clinical Debridement Subcutaneous -Tissue Removed Subcutaneous -Post Debridement (cm) - Length 5.7 -Post Debridement (cm) - Width 3 -Post Debridement (cm) - Depth 0.1 -Total Square (Post) (cm) 17.1 -Area of Debridement (cm) - Length 5.7 -Area of Debridement (cm) - Width 3 -Total Square (Area) (cm) 17.1 -Tunneling No -Undermining/Tunneling No -Circular Undermining No -Wound/Ulcer Outcome Not Healed -Ulcer Cleansing Rinsed/ Irrigated with Saline -Foul Odor after Cleansing No -Bioengineered Tissue No -Bleeding Controlled with Pressure -Offloading Yes -Type of Offloading Surgical Shoe -Treatment Response Procedure Tolerated Well -Debridement - Subq, 1st 20sq cm No WC - Nurse 3 - General Ulcer D/C NN Start: 10/03/20 11:27 Freq: Status: Active Protocol: Activity Type Activity Date Activity User E-Sign Co-Sign Detail Recorded Client Recorded Date Recorded By Document 10/03/20 12:44 OPAL [id number] 10/03/20 12:45 OPAL 10/03/20 12:44 Wound Care Nurse 3 3-Left TMA cluster -Ulcer Cleansing Rinsed/ Irrigated with Saline -Foul Odor after Cleansing No -Primary Dressing Applied Enzymatic -Primary Dressing Covered/Secured with Dry Gauze & Roll Gauze, Secured with Tape #2- L LATERAL FOOT -Ulcer Cleansing Rinsed/ Irrigated with Saline -Foul Odor after Cleansing No -Primary Dressing Applied Enzymatic -Primary Dressing Covered/Secured with Dry Gauze & Roll Gauze, Secured with Tape #1- L LATERAL HEEL -Ulcer Cleansing Rinsed/ Irrigated with Saline -Foul Odor after Cleansing No -Primary Dressing Applied Enzymatic -Primary Dressing Covered/Secured with Dry Gauze & Roll Gauze, Secured with Tape Pain Scale: 0-10 Numeric Is Patient Pain Free? Yes WC - Visit Discharge Discharge Condition Stable Ambulatory Status Wheelchair Transportation Private Auto Accompanied by Medication Reconcilliation completed & Yes provided to patient/care provider Clinical Summary of Care Provided Yes Wound debrided: lateral heel Laterality: Left Wound Grade/Stage: hodges 2 Type of Debridement: Excisional debridement Anesthesia Used: 4% Lidocaine Solution Depth: in the subcutaneous layer Percentage of wound debrided: 100 Instrument Used: #15 blade, Forceps Tissue Removed: Tissue removed includes fibrous, devitalized, biofilm, and slough tissue Severity: Fat Layer Exposed Amount of bleeding with debridement: Mild Bleeding Controlled with: Pressure Patient tolerated procedure well - Additional Wound Wound debrided: lateral foot Laterality: Left Wound Grade/Stage: hodges 1 Type of Debridement: Excisional debridement Anesthesia Used: 4% Lidocaine Solution Depth: in the subcutaneous layer Percentage of wound debrided: 100 Instrument Used: #15 blade, Forceps Tissue Removed: Tissue removed includes fibrous, devitalized, biofilm, and slough tissue Severity: Fat Layer Exposed Amount of bleeding with debridement: Mild Bleeding Controlled with: Pressure Patient tolerated procedure: Patient tolerated procedure well - Additional Wound Wound debrided: TMA stump cluster Laterality: Left Wound Grade/Stage: hodges 1 Type of Debridement: Excisional debridement Anesthesia Used: 4% Lidocaine Solution Depth: in the subcutaneous layer Percentage of wound debrided: 10 Instrument Used: #15 blade Tissue Removed: Tissue removed includes fibrous, devitalized, biofilm, and slough tissue Amount of bleeding with debridement: Mild Bleeding Controlled with: Pressure Patient tolerated procedure: Patient tolerated procedure well Assessment/Plan Active Problems (Last Updated 03/15/20 @ 19:22 by Luz Maria Mcnally) Type 2 diabetes mellitus with foot ulcer (Chronic) Non-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 (Chronic) Non-pressure chronic ulcer of other part of left foot with fat layer exposed (Chronic) Amputation at midfoot (Chronic) Peripheral vascular occlusive disease (Chronic) Left above and below the knee popliteal and tibioperoneal trunk atherectomy and angioplasty 06/28/14 Left below the knee popliteal atherectomy w/ angioplasty 12/29/13 Assessment: Left foot heel ulcer. Left foot lateral foot ulcer. Left foot cellulitis. History of left transmetatarsal amputation. Diabetes. peripheral vascular disease Plan: Patient is referral from Dr. Pelaez at the [facility]. Patient seen and examined. Culture from 07/18/2020 shows MSSA treated with Augmentin. . Wounds are worsening with reappearance of erythema, necrotic tissue, and coolness and some drainage. The wounds have also gotten bigger. Patient had continuing Augmentin prescribed 10/03/20. New cultures were taken. Patient's creatinine clearance was 57 on 08/08/2020. All ulcerations were sharply debrided today without incident after verbal consent obtained. Patient underwent vascular intervention on 08/15/[address] Jeff and again on 09/20/20. Patient has had previous surgical intervention with Dr. Jeff in the past. He had recent arterial studies on 06/13/20 showing monophasic waveforms and noncompressible bilateral PT and DP on the right with an left PAYAL of 0.78 on left. Discussed at length the importance of offloading with the patient in order to allow proper wound healing. Patient uses a walker. Patient states that he has an offloading shoe at home but is uncomfortable and twists when he tries to wear it while sleeping as he moves in his sleep. Patient does not wear it while sleeping. Discussed with patient the importance of his offloading suggested other alternative methods such as pillows or a doughnut offloading pad. Patient has no interest in this. Again the importance of offloading to allow ulcer to heal. Also discussed the importance of offloading when not sleeping such as in a chair with floating the heel with pillows. Patient also has a surgical shoe with cut out to offload the heel. He states he only wears this when he is out on the town and does not wear it at home. Discussed with patient the importance of proper nutrition and blood sugar control to also aid in wound healing. Patient and educated on proper dressing changes. Dressing changed. Foot is warmer compared to last visit and had healthy bleeding upon debridement. Discussed starting Santyl dressing again. Patient relates it costs them about $200. They said they can afford that at this time. Discussed other option such as a dakin wet to dry to help get the fibrotic tissue off without being so cost prohibited. Patient will consider. All questions answered. Patient is to follow-up in 1 week. The problems addressed require a low medical decision making level which includes two or more minor problems, a stable chronic illness, or an acute uncomplicated illness or injury. This note was generated with [employer] software. It may contain incorrect words, spelling, and punctuation that were not noted in checking the note before signing.
[2020-10-10 08:52] VITALS: BP 108/59; PULSE 84; RESP 16
--- NOTE | 2020-10-10 09:20 | PCM.WC.PN ---
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 Code(s): L97.422 - Non-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 (4) Non-pressure chronic ulcer of other part of left foot with fat layer exposed Status: Chronic Code(s): L97.522 - Non-pressure chronic ulcer of other part of left foot with fat layer exposed (5) Peripheral vascular occlusive disease Status: Chronic Code(s): I73.9 - Peripheral vascular disease, unspecified Comment: Left above and below the knee popliteal and tibioperoneal trunk atherectomy and angioplasty 06/28/14 Left below the knee popliteal atherectomy w/ angioplasty 12/29/13 (6) Cellulitis of foot, left Status: Acute Code(s): L03.116 - Cellulitis of left lower limb Type of Wound Date of Service: 10/10/20 Chief Complaint: Left heel and lateral foot ulcerations. Cellulitis. Peripheral vascular disease History of Wound: Patient is a 75-year-old male who presents to the wound care center after being seen in office by Dr. [facility] for chronic left foot wound. 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 He also has had left posterior heel ulceration. Patient had an angioplasty intervention with Dr. Jeff on 08/15/20. Patient had another intervention 09/20/20. Patient has a history of peripheral vascular disease and has had surgical intervention in the past. Patient has taken Augmentin for heel ulcer infection. Patient had previous cultures obtained in office which showed MSSA. Patient states that he has an offloading boot that he kicks his way out of and wakes him up at night. Patient has not found any other method of offloading to assist during sleeping. Patient has elevated the foot on pillows when sitting in chairs to offload the heel. Patient also has an offloading heel cut out surgical shoe she only wears when he is out of the house. When he is in the house patient states that he goes barefoot. Patient reports decrease in pain over the last week, especially since his angio. Patient and saw Dr. Jeff and showed him the regression of the wound with more necrotic tissue and ask if there is anything else he can do. Patient is scheduled for possible further intervention 09/20/20. Progress of Wound: Less fibrotic and necrotic tissue noted today. Stable cooler temperature and surrounding erythema Subjective: Patient seen and examined resting comfortably. Patient denies any new pedal complaints. Patient denies any nausea, fever, chills, chest pain, shortness of breath, cough, streaking, purulence, vomiting. - Physical Exam Vital Signs Temp Pulse Resp BP 96.1 F L 84 16 108/59 L 10/03/20 11:27 10/10/20 08:52 10/10/20 08:52 10/10/20 08:52 General: Alert, Oriented x3 HEENT: Atraumatic Extremities: No clubbing, No cyanosis, No edema, Capillary Refill Less than 3 Seconds, No Calf Tenderness, Cool Skin: Ulcer/ Wound - Left lateral heel and lateral forefoot. No purulence, probing to bone, streaking. There is surrounding erythema. skin is atrophic and hairless. Fibrotic and necrotic base with less necrotic tissue. Lateral heel wound probes near bone. Malodor noted. Moderate serous drainage, - - issures to distal amputation stump left foot ulcerations. No malodor, erythema, purulence, probing to bone, streaking, or other signs of infection. Skin is atrophic and hairless and dry and flaky. Granular base Wound Measurements and Assessment WC - Nurse 1 - General Ulcer Measurement Start: 10/03/20 11:27 Freq: Status: Active Protocol: Activity Type Activity Date Activity User E-Sign Co-Sign Detail Recorded Client Recorded Date Recorded By Document 10/10/20 08:52 BMF [id number] 10/10/20 08:55 BMF 10/10/20 08:52 Wound Center Nurse 1 [Ulcer Assessment] 3-Left TMA cluster -Combined with other wound No -Current Size (cm) - Length 0.1 -Current Size (cm) - Width 0.1 -Current Size (cm) - Depth 0.1 -Total Square Cm 0.01 -Epithelialization Large 67-100% #2- L LATERAL FOOT -Combined with other wound No -Current Size (cm) - Length 2.2 -Current Size (cm) - Width 1.5 -Current Size (cm) - Depth 0.1 -Total Square Cm 3.30 -Photo Taken No -Epithelialization None Present -Tunneling No -Undermining/Tunneling No -Circular Undermining No -Exudate Amt Medium -Exudate Type Serosanguineous -Wound Margin Distinct, Outline Attached -Granulation Amt None Present (0 %) -Slough/Fibrin Yes -Necrosis Amt Large (67-100%) -Necrotic Tissue Type Adherent Slough -Texture (Stacy-wound Skin Appearance) Assessed, Scarring -Moisture (Stacy-wound Skin Appearance Assessed,Dry/ ) Scaly -Color (Stacy-wound Skin Appearance) Assessed, Erythema -Temperature (Stacy-wound Skin No Abnormality Appearance) (Pt Warm) -Tenderness on Palpation (Stacy-wound No Skin Appearance) -Ulcer Cleansing Rinsed/ Irrigated with Saline -Foul Odor after Cleansing No -Anesthetic Used 4% Lidocaine Solution #1- L LATERAL HEEL -Combined with other wound No -Current Size (cm) - Length 3.4 -Current Size (cm) - Width 6 -Current Size (cm) - Depth 0.3 -Total Square Cm 20.4 -Photo Taken No -Epithelialization None Present -Tunneling No -Undermining/Tunneling No -Circular Undermining No -Exudate Amt Medium -Exudate Type Serosanguineous -Wound Margin Distinct, Outline Attached -Granulation Amt None Present (0 %) -Slough/Fibrin Yes -Necrosis Amt Large (67-100%) -Necrotic Tissue Type Adherent Slough -Texture (Stacy-wound Skin Appearance) Assessed, Scarring -Moisture (Stacy-wound Skin Appearance Assessed ) -Color (Stacy-wound Skin Appearance) Assessed, Erythema -Temperature (Stacy-wound Skin No Abnormality Appearance) (Pt Warm) -Tenderness on Palpation (Stacy-wound No Skin Appearance) -Ulcer Cleansing Rinsed/ Irrigated with Saline -Foul Odor after Cleansing No -Anesthetic Used 4% Lidocaine Solution WC - Nurse 2 - General Ulcer CM Notes Start: 10/03/20 11:27 Freq: Status: Active Protocol: Activity Type Activity Date Activity User E-Sign Co-Sign Detail Recorded Client Recorded Date Recorded By Document 10/10/20 09:05 OPAL [id number] 10/10/20 09:20 OPAL 10/10/20 09:05 Wound Center Nurse 2 [Procedure/Treatment] 3-Left TMA cluster -Correct Patient No -Correct Side, Site, Position No -Correct Procedure No -Procedure Performed No -Wound/Ulcer Outcome Not Healed #2- L LATERAL FOOT -Time 09:08 -Correct Patient Yes -Correct Side, Site, Position Yes -Correct Procedure Yes -Procedure Performed Yes -Type of Procedure Debridement -Clinical Debridement Subcutaneous -Tissue Removed Subcutaneous -Post Debridement (cm) - Length 2.4 -Post Debridement (cm) - Width 1.5 -Post Debridement (cm) - Depth 0.2 -Total Square (Post) (cm) 3.60 -Area of Debridement (cm) - Length 2.4 -Area of Debridement (cm) - Width 1.5 -Total Square (Area) (cm) 3.60 -Tunneling No -Undermining/Tunneling No -Circular Undermining No -Wound/Ulcer Outcome Not Healed -Ulcer Cleansing Rinsed/ Irrigated with Saline -Foul Odor after Cleansing No -Bioengineered Tissue No -Bleeding Controlled with Pressure -Offloading Yes -Type of Offloading Surgical Shoe -Treatment Response Procedure Tolerated Well -Debridement - Subq, 1st 20sq cm Yes #1- L LATERAL HEEL -Time 09:09 -Correct Patient Yes -Correct Side, Site, Position Yes -Correct Procedure Yes -Procedure Performed Yes -Type of Procedure Debridement -Clinical Debridement Subcutaneous -Tissue Removed Subcutaneous -Post Debridement (cm) - Length 5 -Post Debridement (cm) - Width 3 -Post Debridement (cm) - Depth 0.4 -Total Square (Post) (cm) 15 -Area of Debridement (cm) - Length 5 -Area of Debridement (cm) - Width 3 -Total Square (Area) (cm) 15 -Tunneling No -Undermining/Tunneling No -Circular Undermining No -Wound/Ulcer Outcome Not Healed -Ulcer Cleansing Rinsed/ Irrigated with Saline -Foul Odor after Cleansing No -Bioengineered Tissue No -Bleeding Controlled with Pressure -Offloading Yes -Type of Offloading Surgical Shoe -Treatment Response Procedure Tolerated Well -Debridement - Subq, 1st 20sq cm No [See Physician Procedure note for Specifics] Pain Scale: 0-10 Numeric [Pain] -Is Patient Pain Free? Yes Musculoskeletal: Muscle Wasting, Tenderness, - - Left transmetatarsal amputation Neurological: - - Decreased epicritic sensation Psych/Mental Status: Normal Affect, Appropriate Debridement Note Post-Debridement Measurements/Treatment WC - Nurse 2 - General Ulcer CM Notes Start: 10/03/20 11:27 Freq: Status: Active Protocol: Activity Type Activity Date Activity User E-Sign Co-Sign Detail Recorded Client Recorded Date Recorded By Document 10/03/20 12:23 JF [id number] 10/03/20 12:44 JF Document 10/10/20 09:05 JF [id number] 10/10/20 09:20 10/03/20 10/10/20 12:23 09:05 Wound Center Nurse 2 3-Left [facility] cluster -Time 12:28 -Correct Patient Yes No -Correct Side, Site, Position Yes No -Correct Procedure Yes No -Procedure Performed Yes No -Type of Procedure Debridement -Clinical Debridement Subcutaneous -Tissue Removed Subcutaneous -Post Debridement (cm) - Length 4.5 -Post Debridement (cm) - Width 1.3 -Post Debridement (cm) - Depth 0.2 -Total Square (Post) (cm) 5.85 -Area of Debridement (cm) - Length 4.5 -Area of Debridement (cm) - Width 1.3 -Total Square (Area) (cm) 5.85 -Tunneling No -Undermining/Tunneling No -Circular Undermining No -Wound/Ulcer Outcome Not Healed Not Healed -Ulcer Cleansing Rinsed/ Irrigated with Saline -Foul Odor after Cleansing No -Bioengineered Tissue No -Bleeding Controlled with Pressure -Other 10% ulcer debrided. -Offloading Yes -Type of Offloading Surgical Shoe -Treatment Response Procedure Tolerated Well -Debridement - Subq, 1st 20sq cm Yes -Debridement, SubQ, ea addt'l 20sq cm 1 or part thereof #2- L LATERAL FOOT -Time 12:31 09:08 -Correct Patient Yes Yes -Correct Side, Site, Position Yes Yes -Correct Procedure Yes Yes -Procedure Performed Yes Yes -Type of Procedure Debridement Debridement -Clinical Debridement Subcutaneous Subcutaneous -Tissue Removed Subcutaneous Subcutaneous -Post Debridement (cm) - Length 2 2.4 -Post Debridement (cm) - Width 1.9 1.5 -Post Debridement (cm) - Depth 0.2 0.2 -Total Square (Post) (cm) 3.8 3.60 -Area of Debridement (cm) - Length 2 2.4 -Area of Debridement (cm) - Width 1.9 1.5 -Total Square (Area) (cm) 3.8 3.60 -Tunneling No No -Undermining/Tunneling No No -Circular Undermining No No -Wound/Ulcer Outcome Not Healed Not Healed -Ulcer Cleansing Rinsed/ Rinsed/ Irrigated with Irrigated with Saline Saline -Foul Odor after Cleansing No No -Bioengineered Tissue No No -Bleeding Controlled with Pressure Pressure -Offloading Yes Yes -Type of Offloading Surgical Shoe Surgical Shoe -Treatment Response Procedure Procedure Tolerated Well Tolerated Well -Debridement - Subq, 1st 20sq cm No Yes #1- L LATERAL HEEL -Time 12:39 09:09 -Correct Patient Yes Yes -Correct Side, Site, Position Yes Yes -Correct Procedure Yes Yes -Procedure Performed Yes Yes -Type of Procedure Debridement Debridement -Clinical Debridement Subcutaneous Subcutaneous -Tissue Removed Subcutaneous Subcutaneous -Post Debridement (cm) - Length 5.7 5 -Post Debridement (cm) - Width 3 3 -Post Debridement (cm) - Depth 0.1 0.4 -Total Square (Post) (cm) 17.1 15 -Area of Debridement (cm) - Length 5.7 5 -Area of Debridement (cm) - Width 3 3 -Total Square (Area) (cm) 17.1 15 -Tunneling No No -Undermining/Tunneling No No -Circular Undermining No No -Wound/Ulcer Outcome Not Healed Not Healed -Ulcer Cleansing Rinsed/ Rinsed/ Irrigated with Irrigated with Saline Saline -Foul Odor after Cleansing No No -Bioengineered Tissue No No -Bleeding Controlled with Pressure Pressure -Offloading Yes Yes -Type of Offloading Surgical Shoe Surgical Shoe -Treatment Response Procedure Procedure Tolerated Well Tolerated Well -Debridement - Subq, 1st 20sq cm No No Pain Scale: 0-10 Numeric Is Patient Pain Free? Yes WC - Nurse 3 - General Ulcer D/C NN Start: 10/03/20 11:27 Freq: Status: Active Protocol: Activity Type Activity Date Activity User E-Sign Co-Sign Detail Recorded Client Recorded Date Recorded By Document 10/03/20 12:44 [id number] 10/03/20 12:45 JF 10/03/20 12:44 Wound Care Nurse 3 3-Left TMA cluster -Ulcer Cleansing Rinsed/ Irrigated with Saline -Foul Odor after Cleansing No -Primary Dressing Applied Enzymatic -Primary Dressing Covered/Secured with Dry Gauze & Roll Gauze, Secured with Tape #2- L LATERAL FOOT -Ulcer Cleansing Rinsed/ Irrigated with Saline -Foul Odor after Cleansing No -Primary Dressing Applied Enzymatic -Primary Dressing Covered/Secured with Dry Gauze & Roll Gauze, Secured with Tape #1- L LATERAL HEEL -Ulcer Cleansing Rinsed/ Irrigated with Saline -Foul Odor after Cleansing No -Primary Dressing Applied Enzymatic -Primary Dressing Covered/Secured with Dry Gauze & Roll Gauze, Secured with Tape Pain Scale: 0-10 Numeric Is Patient Pain Free? Yes WC - Visit Discharge Discharge Condition Stable Ambulatory Status Wheelchair Transportation Private Auto Accompanied by Medication Reconcilliation completed & Yes provided to patient/care provider Clinical Summary of Care Provided Yes Wound debrided: Lateral heel Laterality: Left Wound Grade/Stage: Barker 2 Type of Debridement: Excisional debridement Anesthesia Used: 4% Lidocaine Solution Depth: in the subcutaneous layer Percentage of wound debrided: 100 Instrument Used: #15 blade, Forceps Tissue Removed: Tissue removed Severity: Fat Layer Exposed Amount of bleeding with debridement: Mild Bleeding Controlled with: Pressure Patient tolerated procedure well - Additional Wound Wound debrided: Lateral forefoot Laterality: Left Wound Grade/Stage: Barker 1 Type of Debridement: Excisional debridement Anesthesia Used: 4% Lidocaine Solution Depth: in the subcutaneous layer Percentage of wound debrided: 100 Instrument Used: #15 blade, Forceps Tissue Removed: Tissue removed includes fibrous, devitalized, biofilm, and slough tissue Severity: Fat Layer Exposed Amount of bleeding with debridement: Mild Bleeding Controlled with: Pressure Patient tolerated procedure: Patient tolerated procedure well - Additional Wound Wound debrided: Transmetatarsal amputation stump Laterality: Left Wound Grade/Stage: Barker 1 Depth: in the subcutaneous layer - Manual debridement performed today to with gauze Assessment/Plan Active Problems (Last Updated 03/15/20 @ 19:22 by Luz Maria Mcnally) Type 2 diabetes mellitus with foot ulcer (Chronic) Non-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 (Chronic) Non-pressure chronic ulcer of other part of left foot with fat layer exposed (Chronic) Amputation at midfoot (Chronic) Cellulitis of foot, left (Acute) Peripheral vascular occlusive disease (Chronic) Left above and below the knee popliteal and tibioperoneal trunk atherectomy and angioplasty 06/28/14 Left below the knee popliteal atherectomy w/ angioplasty 12/29/13 Assessment: Left foot lateral heel ulcer. Left foot lateral foot ulcer. Left foot cellulitis. History of left transmetatarsal amputation. Diabetes. peripheral vascular disease Plan: Patient is referral from Dr. Pelaez at the [facility]. Patient seen and examined. Culture from 07/18/2020 shows MSSA treated with Augmentin. . Wounds are stable with erythema, less necrotic tissue, and held coolness and some is drainage. Patient is continuing Augmentin prescribed 10/03/20. Cultures from - showing Corynebacterium amycolatum, Staphylococcus aureus, Klebsiella pneumoniae, E. coli. Patient's creatinine clearance was 57 on 08/08/2020. Ulcerations were sharply debrided today without incident after verbal consent obtained. Patient underwent vascular intervention on 08/15/[address] Jeff and again on 09/20/20. Patient has had previous surgical intervention with Dr. Jeff in the past as well. He had recent arterial studies on 06/13/20 showing monophasic waveforms and noncompressible bilateral PT and DP on the right with an left PAYAL of 0.78 on left. Discussed at length the importance of offloading with the patient in order to allow proper wound healing. Patient uses a walker. Patient states that he has an offloading shoe at home but is uncomfortable and twists when he tries to wear it while sleeping as he moves in his sleep. Patient does not wear it while sleeping. Discussed with patient the importance of his offloading suggested other alternative methods such as pillows or a doughnut offloading pad. Patient has no interest in this. Again the importance of offloading to allow ulcer to heal. Also discussed the importance of offloading when not sleeping such as in a chair with floating the heel with pillows. Patient also has a surgical shoe with cut out to offload the heel. He states he only wears this when he is out on the town and does not wear it at home. Discussed with patient the importance of proper nutrition and blood sugar control to also aid in wound healing. Patient and educated on proper dressing changes. We will switch to Dakin's wet to dry until drainage is better controlled and return to Santyl most likely. Dressing changed. Foot is warmer compared to last visit and had healthy bleeding upon debridement. Concern for how close the lateral heel ulceration is to bone. This is been open at this level for several weeks at this point. Concern for possibility of infection having infected the bone. An MRI was ordered. All questions answered. Patient is to follow-up in 1 week. This note was generated with [employer] dictation software. It may contain incorrect words, spelling, and punctuation that were not noted in checking the note before signing.
[2020-10-17 11:02] VITALS: BP 126/38; PULSE 75; RESP 16; TEMP 36.2; BMI 24.4
--- NOTE | 2020-10-17 12:37 | PCM.WC.PN ---
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 Code(s): L97.422 - Non-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 (4) Non-pressure chronic ulcer of other part of left foot with fat layer exposed Status: Chronic Code(s): L97.522 - Non-pressure chronic ulcer of other part of left foot with fat layer exposed (5) Peripheral vascular occlusive disease Status: Chronic Code(s): I73.9 - Peripheral vascular disease, unspecified Comment: Left above and below the knee popliteal and tibioperoneal trunk atherectomy and angioplasty 06/28/14 Left below the knee popliteal atherectomy w/ angioplasty 12/29/13 (6) Cellulitis of foot, left Status: Acute Code(s): L03.116 - Cellulitis of left lower limb Type of Wound Date of Service: 10/17/20 Chief Complaint: Left heel and lateral foot ulcerations. Cellulitis. Peripheral vascular disease History of Wound: Patient is a 75-year-old male who presents to the wound care center after being seen in office by Dr. Pelaez [facility] for chronic left foot wound. 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 He also has had left posterior heel ulceration. Patient had an angioplasty intervention with Dr. Jeff on 08/15/20. Patient had another intervention 09/20/20. Patient has a history of peripheral vascular disease and has had surgical intervention in the past. Patient has taken Augmentin for heel ulcer infection. Patient had previous cultures obtained in office which showed MSSA. Patient states that he has an offloading boot that he kicks his way out of and wakes him up at night. Patient has not found any other method of offloading to assist during sleeping. Patient has elevated the foot on pillows when sitting in chairs to offload the heel. Patient also has an offloading heel cut out surgical shoe she only wears when he is out of the house. When he is in the house patient states that he goes barefoot. Patient reports decrease in pain over the last week, especially since his angio. Patient and saw Dr. Jfef and showed him the regression of the wound with more necrotic tissue and ask if there is anything else he can do. Patient had further intervention 09/20/20. Since then the wound has become warm again. There is increased in fibrotic tissue and necrotic tissue noted. With new cracks to the amputation site. Progress of Wound: Less fibrotic and necrotic tissue noted today. Stable temperature and surrounding erythema Subjective: Patient seen and examined resting comfortably. Patient denies any new pedal complaints. Patient denies any nausea, fever, chills, chest pain, shortness of breath, cough, streaking, purulence, vomiting. Patient relates that the heel wound is less painful and he believes all wounds are getting better. He is concerned about some dry skin to the top of his foot. He relates that he was able to get the Dakin's. - Physical Exam Vital Signs Temp Pulse Resp BP 97.2 F L 75 16 126/38 H 10/17/20 11:02 10/17/20 11:02 10/17/20 11:02 10/17/20 11:02 General: Alert, Oriented x3 HEENT: Atraumatic Extremities: No clubbing, No cyanosis, No edema, Capillary Refill Less than 3 Seconds, No Calf Tenderness, Diminished Peripheral Pulses Skin: Ulcer/ Wound - Left foot lateral heel, lateral fifth metatarsal, distal fissures at amputation site. No malodor, purulence, probing to bone, streaking, fluctuation, crepitus. Surrounding erythema and edema periulceration sites particularly the heel. Skin is atrophic and hairless with dorsal foot rash., - - Wounds have a granular fibrotic base. Some granulation tissue was noted predebridement 2 the lateral foot wound. Lot of fibrotic tissue noted to the heel. Wound Measurements and Assessment WC - Nurse 1 - General Ulcer Measurement Start: 10/03/20 11:27 Freq: Status: Active Protocol: Activity Type Activity Date Activity User E-Sign Co-Sign Detail Recorded Client Recorded Date Recorded By Document 10/17/20 11:02 [facility] [id number] 10/17/20 11:15 [facility] 10/17/20 11:02 Wound Center Nurse 1 [Ulcer Assessment] 3-Left TMA cluster -Combined with other wound No -Current Size (cm) - Length 0.1 -Current Size (cm) - Width 0.1 -Current Size (cm) - Depth 0.1 -Total Square Cm 0.01 -Photo Taken No -Epithelialization Large 67-100% -Texture (Stacy-wound Skin Appearance) Assessed -Moisture (Stacy-wound Skin Appearance Assessed,Dry/ ) Scaly -Color (Stacy-wound Skin Appearance) Assessed, Erythema -Temperature (Stacy-wound Skin No Abnormality Appearance) (Pt Warm) -Tenderness on Palpation (Stacy-wound No Skin Appearance) -Ulcer Cleansing SOAPY WATER -Foul Odor after Cleansing No -Anesthetic Used 4% Lidocaine Solution #2- L LATERAL FOOT -Combined with other wound No -Current Size (cm) - Length 2 -Current Size (cm) - Width 1.4 -Current Size (cm) - Depth 0.2 -Total Square Cm 2.8 -Photo Taken No -Epithelialization None Present -Tunneling No -Undermining/Tunneling No -Circular Undermining No -Exudate Amt Medium -Exudate Type Serosanguineous -Wound Margin Distinct, Outline Attached -Granulation Amt None Present (0 %) -Slough/Fibrin Yes -Necrosis Amt Large (67-100%) -Necrotic Tissue Type Adherent Slough -Texture (Stacy-wound Skin Appearance) Assessed, Scarring -Moisture (Stacy-wound Skin Appearance Assessed ) -Color (Stacy-wound Skin Appearance) Assessed, Erythema -Temperature (Stacy-wound Skin No Abnormality Appearance) (Pt Warm) -Tenderness on Palpation (Stacy-wound No Skin Appearance) -Ulcer Cleansing SOAPY WATER -Foul Odor after Cleansing Yes -Anesthetic Used 4% Lidocaine Solution #1- L LATERAL HEEL -Combined with other wound No -Current Size (cm) - Length 5.8 -Current Size (cm) - Width 3 -Current Size (cm) - Depth 0.4 -Total Square Cm 17.4 -Photo Taken No -Epithelialization None Present -Tunneling No -Undermining/Tunneling No -Circular Undermining No -Exudate Amt Large -Exudate Type Serosanguineous -Wound Margin Distinct, Outline Attached -Granulation Amt None Present (0 %) -Slough/Fibrin Yes -Necrosis Amt Large (67-100%) -Necrotic Tissue Type Adherent Slough -Texture (Stacy-wound Skin Appearance) Assessed, Scarring -Moisture (Stacy-wound Skin Appearance Assessed, ) Maceration -Color (Stacy-wound Skin Appearance) Assessed, Erythema,Palor -Temperature (Stacy-wound Skin No Abnormality Appearance) (Pt Warm) -Tenderness on Palpation (Stacy-wound No Skin Appearance) -Ulcer Cleansing SOAPY WATER -Foul Odor after Cleansing Yes -Anesthetic Used 4% Lidocaine Solution WC - Nurse 2 - General Ulcer CM Notes Start: 10/03/20 11:27 Freq: Status: Active Protocol: Activity Type Activity Date Activity User E-Sign Co-Sign Detail Recorded Client Recorded Date Recorded By Document 10/17/20 11:39 OPAL [id number] 10/17/20 11:52 OPAL 10/17/20 11:39 Wound Center Nurse 2 [Procedure/Treatment] 3-Left [facility] cluster -Time 11:50 -Correct Patient Yes -Correct Side, Site, Position Yes -Correct Procedure Yes -Procedure Performed Yes -Type of Procedure Debridement -Clinical Debridement Epidermis / Dermis -Tissue Removed Epidermis, Dermis -Post Debridement (cm) - Length 0.1 -Post Debridement (cm) - Width 0.1 -Post Debridement (cm) - Depth 0.1 -Total Square (Post) (cm) 0.01 -Area of Debridement (cm) - Length 0.1 -Area of Debridement (cm) - Width 0.1 -Total Square (Area) (cm) 0.01 -Tunneling No -Undermining/Tunneling No -Circular Undermining No -Wound/Ulcer Outcome Not Healed -Ulcer Cleansing Rinsed/ Irrigated with Saline -Foul Odor after Cleansing No -Bioengineered Tissue No -Bleeding Controlled with Pressure -Offloading Yes -Type of Offloading Surgical Shoe -Treatment Response Procedure Tolerated Well -Debridement - Open, 1st 20sq cm Yes #2- L LATERAL FOOT -Time 11:48 -Correct Patient Yes -Correct Side, Site, Position Yes -Correct Procedure Yes -Procedure Performed Yes -Type of Procedure Debridement -Clinical Debridement Subcutaneous -Tissue Removed Subcutaneous -Post Debridement (cm) - Length 1.5 -Post Debridement (cm) - Width 1.3 -Post Debridement (cm) - Depth 0.1 -Total Square (Post) (cm) 1.95 -Area of Debridement (cm) - Length 1.5 -Area of Debridement (cm) - Width 1.3 -Total Square (Area) (cm) 1.95 -Tunneling No -Undermining/Tunneling No -Circular Undermining No -Wound/Ulcer Outcome Not Healed -Ulcer Cleansing Rinsed/ Irrigated with Saline -Foul Odor after Cleansing No -Bioengineered Tissue No -Bleeding Controlled with Pressure -Offloading Yes -Type of Offloading Surgical Shoe -Treatment Response Procedure Tolerated Well -Debridement - Subq, 1st 20sq cm Yes #1- L LATERAL HEEL -Time 11:49 -Correct Patient Yes -Correct Side, Site, Position Yes -Correct Procedure Yes -Procedure Performed Yes -Type of Procedure Debridement -Clinical Debridement Subcutaneous -Tissue Removed Subcutaneous -Post Debridement (cm) - Length 2.5 -Post Debridement (cm) - Width 5.5 -Post Debridement (cm) - Depth 0.8 -Total Square (Post) (cm) 13.75 -Area of Debridement (cm) - Length 2.5 -Area of Debridement (cm) - Width 5.5 -Total Square (Area) (cm) 13.75 -Tunneling No -Undermining/Tunneling No -Circular Undermining No -Wound/Ulcer Outcome Not Healed -Ulcer Cleansing Rinsed/ Irrigated with Saline -Foul Odor after Cleansing No -Bioengineered Tissue No -Bleeding Controlled with Pressure -Offloading Yes -Type of Offloading Surgical Shoe -Treatment Response Procedure Tolerated Well -Debridement - Subq, 1st 20sq cm No [See Physician Procedure note for Specifics] Pain Scale: 0-10 Numeric [Pain] -Is Patient Pain Free? Yes WC - Nurse 3 - General Ulcer D/C NN Start: 10/03/20 11:27 Freq: Status: Active Protocol: Activity Type Activity Date Activity User E-Sign Co-Sign Detail Recorded Client Recorded Date Recorded By Document 10/17/20 12:05 DL [id number] 10/17/20 12:08 DL 10/17/20 12:05 Wound Care Nurse 3 [Wound Dressing] 3-Left TMA cluster -Ulcer Cleansing Rinsed/ Irrigated with Saline -Foul Odor after Cleansing No -Other Dressing HYDROGEL -Primary Dressing Covered/Secured Dry Gauze & with Roll Gauze, Secured with Tape #2- L LATERAL FOOT -Ulcer Cleansing Rinsed/ Irrigated with Saline -Foul Odor after Cleansing No -Other Dressing dAKINS -Primary Dressing Covered/Secured Dry Gauze & with Roll Gauze, Secured with Tape #1- L LATERAL HEEL -Ulcer Cleansing Rinsed/ Irrigated with Saline -Foul Odor after Cleansing No -Other Dressing DAKINS -Primary Dressing Covered/Secured Dry Gauze & with Roll Gauze, Secured with Tape [Post Procedure Tolerated] -Treatment Response Procedure Tolerated Well Pain Scale: 0-10 Numeric [Pain] -Is Patient Pain Free? Yes WC - Visit Discharge [Visit Discharge Information] -Discharge Condition Stable -Ambulatory Status Ambulatory -Transportation Private Auto -Accompanied by Musculoskeletal: Muscle Wasting, Tenderness, - - Left TMA Neurological: - - Decrease in epicritic sensation consistent with neuropathy Psych/Mental Status: Normal Affect, Appropriate Debridement Note Post-Debridement Measurements/Treatment WC - Nurse 2 - General Ulcer CM Notes Start: 10/03/20 11:27 Freq: Status: Active Protocol: Activity Type Activity Date Activity User E-Sign Co-Sign Detail Recorded Client Recorded Date Recorded By Document 10/03/20 12:23 [id number] 10/03/20 12:44 Document 10/10/20 09:05 [id number] 10/10/20 09:20 Document 10/17/20 11:39 [id number] 10/17/20 11:52 10/03/20 10/10/20 10/17/20 12:23 09:05 11:39 Wound Center Nurse 2 3-Left TMA cluster -Time 12:28 11:50 -Correct Patient Yes No Yes -Correct Side, Site, Position Yes No Yes -Correct Procedure Yes No Yes -Procedure Performed Yes No Yes -Type of Procedure Debridement Debridement -Clinical Debridement Subcutaneous Epidermis / Dermis -Tissue Removed Subcutaneous Epidermis, Dermis -Post Debridement (cm) - Length 4.5 0.1 -Post Debridement (cm) - Width 1.3 0.1 -Post Debridement (cm) - Depth 0.2 0.1 -Total Square (Post) (cm) 5.85 0.01 -Area of Debridement (cm) - Length 4.5 0.1 -Area of Debridement (cm) - Width 1.3 0.1 -Total Square (Area) (cm) 5.85 0.01 -Tunneling No No -Undermining/Tunneling No No -Circular Undermining No No -Wound/Ulcer Outcome Not Healed Not Healed Not Healed -Ulcer Cleansing Rinsed/ Rinsed/ Irrigated with Irrigated with Saline Saline -Foul Odor after Cleansing No No -Bioengineered Tissue No No -Bleeding Controlled with Pressure Pressure -Other 10% ulcer debrided. -Offloading Yes Yes -Type of Offloading Surgical Shoe Surgical Shoe -Treatment Response Procedure Procedure Tolerated Well Tolerated Well -Debridement - Open, 1st 20sq cm Yes -Debridement - Subq, 1st 20sq cm Yes -Debridement, SubQ, ea addt'l 20sq cm 1 or part thereof #2- L LATERAL FOOT -Time 12:31 09:08 11:48 -Correct Patient Yes Yes Yes -Correct Side, Site, Position Yes Yes Yes -Correct Procedure Yes Yes Yes -Procedure Performed Yes Yes Yes -Type of Procedure Debridement Debridement Debridement -Clinical Debridement Subcutaneous Subcutaneous Subcutaneous -Tissue Removed Subcutaneous Subcutaneous Subcutaneous -Post Debridement (cm) - Length 2 2.4 1.5 -Post Debridement (cm) - Width 1.9 1.5 1.3 -Post Debridement (cm) - Depth 0.2 0.2 0.1 -Total Square (Post) (cm) 3.8 3.60 1.95 -Area of Debridement (cm) - Length 2 2.4 1.5 -Area of Debridement (cm) - Width 1.9 1.5 1.3 -Total Square (Area) (cm) 3.8 3.60 1.95 -Tunneling No No No -Undermining/Tunneling No No No -Circular Undermining No No No -Wound/Ulcer Outcome Not Healed Not Healed Not Healed -Ulcer Cleansing Rinsed/ Rinsed/ Rinsed/ Irrigated with Irrigated with Irrigated with Saline Saline Saline -Foul Odor after Cleansing No No No -Bioengineered Tissue No No No -Bleeding Controlled with Pressure Pressure Pressure -Offloading Yes Yes Yes -Type of Offloading Surgical Shoe Surgical Shoe Surgical Shoe -Treatment Response Procedure Procedure Procedure Tolerated Well Tolerated Well Tolerated Well -Debridement - Subq, 1st 20sq cm No Yes Yes #1- L LATERAL HEEL -Time 12:39 09:09 11:49 -Correct Patient Yes Yes Yes -Correct Side, Site, Position Yes Yes Yes -Correct Procedure Yes Yes Yes -Procedure Performed Yes Yes Yes -Type of Procedure Debridement Debridement Debridement -Clinical Debridement Subcutaneous Subcutaneous Subcutaneous -Tissue Removed Subcutaneous Subcutaneous Subcutaneous -Post Debridement (cm) - Length 5.7 5 2.5 -Post Debridement (cm) - Width 3 3 5.5 -Post Debridement (cm) - Depth 0.1 0.4 0.8 -Total Square (Post) (cm) 17.1 15 13.75 -Area of Debridement (cm) - Length 5.7 5 2.5 -Area of Debridement (cm) - Width 3 3 5.5 -Total Square (Area) (cm) 17.1 15 13.75 -Tunneling No No No -Undermining/Tunneling No No No -Circular Undermining No No No -Wound/Ulcer Outcome Not Healed Not Healed Not Healed -Ulcer Cleansing Rinsed/ Rinsed/ Rinsed/ Irrigated with Irrigated with Irrigated with Saline Saline Saline -Foul Odor after Cleansing No No No -Bioengineered Tissue No No No -Bleeding Controlled with Pressure Pressure Pressure -Offloading Yes Yes Yes -Type of Offloading Surgical Shoe Surgical Shoe Surgical Shoe -Treatment Response Procedure Procedure Procedure Tolerated Well Tolerated Well Tolerated Well -Debridement - Subq, 1st 20sq cm No No No Pain Scale: 0-10 Numeric Is Patient Pain Free? Yes Yes - Nurse 3 - General Ulcer D/C NN Start: 10/03/20 11:27 Freq: Status: Active Protocol: Activity Type Activity Date Activity User E-Sign Co-Sign Detail Recorded Client Recorded Date Recorded By Document 10/03/20 12:44 [id number] 10/03/20 12:45 Document 10/10/20 09:20 [id number] 10/10/20 09:21 Document 10/17/20 12:05 DL [id number] 10/17/20 12:08 DL 10/03/20 10/10/20 10/17/20 12:44 09:20 12:05 Wound Care Nurse 3 3-Left TMA cluster -Ulcer Cleansing Rinsed/ Rinsed/ Rinsed/ Irrigated with Irrigated with Irrigated with Saline Saline Saline -Foul Odor after Cleansing No No No -Primary Dressing Applied Enzymatic C Hydrogel ($) -Other Dressing HYDROGEL -Primary Dressing Covered/Secured with Dry Gauze & Dry Gauze & Dry Gauze & Roll Gauze, Roll Gauze, Roll Gauze, Secured with Secured with Secured with Tape Tape Tape #2- L LATERAL FOOT -Ulcer Cleansing Rinsed/ Rinsed/ Rinsed/ Irrigated with Irrigated with Irrigated with Saline Saline Saline -Foul Odor after Cleansing No No No -Primary Dressing Applied Enzymatic -Other Dressing dakin's dAKINS moistened guaze -Primary Dressing Covered/Secured with Dry Gauze & Dry Gauze & Dry Gauze & Roll Gauze, Roll Gauze, Roll Gauze, Secured with Secured with Secured with Tape Tape Tape #1- L LATERAL HEEL -Ulcer Cleansing Rinsed/ Rinsed/ Rinsed/ Irrigated with Irrigated with Irrigated with Saline Saline Saline -Foul Odor after Cleansing No No No -Primary Dressing Applied Enzymatic -Other Dressing 0.25% DAKIN DAKINS SOLUTION -Primary Dressing Covered/Secured with Dry Gauze & Dry Gauze & Dry Gauze & Roll Gauze, Roll Gauze, Roll Gauze, Secured with Secured with Secured with Tape Tape Tape Treatment Response Procedure Tolerated Well Pain Scale: 0-10 Numeric Is Patient Pain Free? Yes Yes Yes WC - Visit Discharge Discharge Condition Stable Stable Stable Ambulatory Status Wheelchair Ambulatory Ambulatory Transportation Private Auto Private Auto Private Auto Accompanied by MOTHER Medication Reconcilliation completed & Yes Yes provided to patient/care provider Clinical Summary of Care Provided Yes Yes Wound debrided: Lateral heel Laterality: Left Wound Grade/Stage: Barker 2 Type of Debridement: Excisional debridement Anesthesia Used: 4% Lidocaine Solution Depth: in the subcutaneous layer Percentage of wound debrided: 100 Instrument Used: #15 blade, Forceps Tissue Removed: Tissue removed includes fibrous, devitalized, biofilm, and slough tissue Severity: Fat Layer Exposed Amount of bleeding with debridement: Mild Bleeding Controlled with: Pressure Patient tolerated procedure well - Additional Wound Wound debrided: Lateral fifth foot Laterality: Left Wound Grade/Stage: Barker 1 Type of Debridement: Excisional debridement Anesthesia Used: 4% Lidocaine Solution Depth: in the subcutaneous layer Percentage of wound debrided: 100 Instrument Used: #15 blade, Forceps Tissue Removed: Tissue removed includes fibrous, devitalized, biofilm, and slough tissue Severity: Fat Layer Exposed Amount of bleeding with debridement: Mild Bleeding Controlled with: Pressure Patient tolerated procedure: Patient tolerated procedure well - Additional Wound Wound debrided: Transmetatarsal amputation site stump Laterality: Left Wound Grade/Stage: Barker 1 Type of Debridement: Selective debridement Anesthesia Used: 4% Lidocaine Solution Depth: Down to and including healthy tissue Percentage of wound debrided: 100 Instrument Used: Forceps Tissue Removed: Tissue removed includes fibrous, devitalized, biofilm, and slough tissue Severity: Limited To Skin Breakdown Amount of bleeding with debridement: Mild Bleeding Controlled with: Pressure Patient tolerated procedure: Patient tolerated procedure well Assessment/Plan Active Problems (Last Updated 03/15/20 @ 19:22 by Luz Maria Mcnally) Type 2 diabetes mellitus with foot ulcer (Chronic) Non-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 (Chronic) Non-pressure chronic ulcer of other part of left foot with fat layer exposed (Chronic) Amputation at midfoot (Chronic) Cellulitis of foot, left (Acute) Peripheral vascular occlusive disease (Chronic) Left above and below the knee popliteal and tibioperoneal trunk atherectomy and angioplasty 06/28/14 Left below the knee popliteal atherectomy w/ angioplasty 12/29/13 Assessment: Left foot lateral heel ulcer. Left foot lateral foot ulcer. Transmetatarsal amputation site stump fissures. Left foot cellulitis. History of left transmetatarsal amputation. Diabetes. peripheral vascular disease Plan: Patient is referral from Dr. Pelaez at the [facility]. Patient seen and examined. Culture from 07/18/2020 shows MSSA treated with Augmentin. . Wounds are stable with erythema, less necrotic tissue, and held coolness and some is drainage. Patient is continuing Augmentin prescribed 10/17/20. Cultures from 10/03/20 showing Corynebacterium amycolatum, Staphylococcus aureus, Klebsiella pneumoniae, E. coli. Patient's creatinine clearance was 57 on 08/08/2020. Ulcerations were sharply debrided today without incident after verbal consent obtained. Patient underwent vascular intervention on 08/15/[address] Jeff and again on 09/20/20. Patient has had previous surgical intervention with Dr. Jeff in the past as well. He had recent arterial studies on 06/13/20 showing monophasic waveforms and noncompressible bilateral PT and DP on the right with an left PAYAL of 0.78 on left. Discussed at length the importance of offloading with the patient in order to allow proper wound healing. Patient uses a walker. Patient states that he has an offloading shoe at home but is uncomfortable and twists when he tries to wear it while sleeping as he moves in his sleep. Patient does not wear it while sleeping. Discussed with patient the importance of his offloading suggested other alternative methods such as pillows or a doughnut offloading pad. Patient has no interest in this. Again the importance of offloading to allow ulcer to heal. Also discussed the importance of offloading when not sleeping such as in a chair with floating the heel with pillows. Patient also has a surgical shoe with cut out to offload the heel. He states he only wears this when he is out on the town and does not wear it at home. Discussed with patient the importance of proper nutrition and blood sugar control to also aid in wound healing. Patient and educated on proper dressing changes. We will switch to Dakin's wet to dry until drainage is better controlled and return to Santyl most likely. Dressing changed. Foot is warmer compared to last visit and had healthy bleeding upon debridement. There is still surrounding erythema with decent drainage concerning for cellulitis. Patient had refill of Augmentin prescribed. Concern for how close the lateral heel ulceration is to bone. This is been open at this level for several weeks at this point. Concern for possibility of infection having infected the bone. An MRI was ordered. He is to get this on 10/20/2020. All questions answered. Patient is to follow-up in 1 week. This note was generated with [email or web address] dictation software. It may contain incorrect words, spelling, and punctuation that were not noted in checking the note before signing.
--- NOTE | 2020-10-20 16:24 | MRI_ITS ---
STUDY: MRI LEFT REARFOOT WITHOUT CONTRAST REASON FOR EXAM: Male, 75 years old. L HEEL ULCER x 5 months TECHNIQUE: Standardized fat and water weighted pulse sequences were obtained in all 3 orthogonal planes. COMPARISON: None. FINDINGS: Midfoot to anterior amputation partially visualized. A large open wound is present in the lateral posterior and plantar aspect of the calcaneal process with associated mild cortical thinning and mild to moderate underlying edema due to active osteomyelitis. Mild subcutaneous edema is present. Normal posterior tibialis tendon. Normal flexor digitorum longus tendon. Normal flexor hallucis longus tendon. Normal peroneus longus and brevis tendons. Normal tibialis anterior tendon. Normal extensor hallucis longus tendon. Normal extensor digitorum longus tendons. Normal Achilles tendon and teno-osseous insertion. There is thickening of the central cord of the plantar fascia, without a plantar fasciitis or plantar fascial tear, consistent with plantar fascial degeneration. Normal plantar calcaneal tubercles. 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 Normal distal tibiofibular syndesmotic ligamentous complex. Normal lateral ligamentous complex. Normal subtalar ligaments and sinus tarsi. Normal deltoid ligamentous complexes. Normal plantar calcaneonavicular (spring) ligament. Normal tibiotalar articulation. Normal talar dome. Normal subtalar articulations. Normal talonavicular articulation. Normal calcaneocuboid articulation. Normal navicular-cuneiform articulations. MRI/Lower Ext/No Jt/w/o IMPRESSION: 1. A large open wound is present in the lateral posterior and plantar aspect of the calcaneal process with associated mild cortical thinning and mild to moderate underlying edema due to active osteomyelitis. Electronically Signed: Richardson Truogn MD at 23:18 EDT , Service support ,
[2020-10-24 11:16] VITALS: BP 130/74; PULSE 81; RESP 16; TEMP 37; BMI 24.4
--- NOTE | 2020-10-24 12:16 | PCM.WC.PN ---
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 Qualifiers: Encounter type: subsequent encounter Laterality: left Qualified Code(s): S98.312D - Complete traumatic amputation of left midfoot, subsequent encounter Code(s): S98.319A - Complete traumatic amputation of unspecified midfoot, initial encounter (3) Type 2 diabetes mellitus with foot ulcer Status: Chronic Code(s): E11.621 - Type 2 diabetes mellitus with foot ulcer; L97.509 - Non-pressure chronic ulcer of other part of unspecified foot with unspecified severity (4) Non-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 Status: Chronic Code(s): L97.422 - Non-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 (5) Non-pressure chronic ulcer of other part of left foot with fat layer exposed Status: Chronic Code(s): L97.522 - Non-pressure chronic ulcer of other part of left foot with fat layer exposed (6) Peripheral vascular occlusive disease Status: Chronic Code(s): I73.9 - Peripheral vascular disease, unspecified Comment: Left above and below the knee popliteal and tibioperoneal trunk atherectomy and angioplasty 06/28/14 Left below the knee popliteal atherectomy w/ angioplasty 12/29/13 (7) Cellulitis of foot, left Status: Acute Code(s): L03.116 - Cellulitis of left lower limb Type of Wound Date of Service: 10/26/20 Chief Complaint: Left heel and lateral foot ulcerations. Cellulitis. Peripheral vascular disease History of Wound: Patient is a 75-year-old male who presents to the wound care center after being seen in office by Dr. Pelaez [facility] for chronic left foot wound. 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 He also has had left posterior heel ulceration. Patient had an angioplasty intervention with Dr. Jeff on 08/15/20. Patient had another intervention 09/20/20. Patient has a history of peripheral vascular disease and has had surgical intervention in the past. Patient has taken Augmentin for heel ulcer infection. Patient had previous cultures obtained in office which showed MSSA. Patient states that he has an offloading boot that he kicks his way out of and wakes him up at night. Patient has not found any other method of offloading to assist during sleeping. Patient has elevated the foot on pillows when sitting in chairs to offload the heel. Patient also has an offloading heel cut out surgical shoe she only wears when he is out of the house. When he is in the house patient states that he goes barefoot. Patient reports decrease in pain over the last week, especially since his angio. Patient and saw Dr. Jeff and showed him the regression of the wound with more necrotic tissue and ask if there is anything else he can do. Patient had further intervention 09/20/20. Since then the wound has become warm again. There is increased in fibrotic tissue and necrotic tissue noted. Patient had MRI obtained 10/20/2020 demonstrating A large open wound is present in the lateral posterior and plantar aspect of the calcaneal process with associated mild cortical thinning and mild to moderate underlying edema due to active osteomyelitis. Progress of Wound: Left heel ulceration worsening with malodor noted. Left lateral foot ulcer stable Subjective: Patient seen and examined resting comfortably. Patient denies any new pedal complaints. Patient denies any nausea, fever, chills, chest pain, shortness of breath, cough, streaking, purulence, vomiting. Patient and are concerned about worsening of the wound and relate malodor to the area. - Physical Exam Vital Signs Temp Pulse Resp BP 98.6 F 81 16 130/74 H 10/24/20 11:16 10/24/20 11:16 10/24/20 11:16 10/24/20 11:16 General: Alert, Oriented x3 HEENT: Atraumatic Extremities: No clubbing, No cyanosis, Capillary Refill Less than 3 Seconds, No Calf Tenderness, Diminished Peripheral Pulses, Edema Skin: Ulcer/ Wound - Lateral left forefoot and distal amputation site. No malodor, erythema, purulence, probing to bone, streaking, fluctuation, crepitus, or other signs of infection. Skin is atrophic and hairless. Granular-fibrotic base, - - Left lateral plantar heel ulceration. Malodor present, no purulent drainage, surrounding erythema and edema to lower extremity, probes to near bone, skin is atrophic and hairless, significant amount of fibrotic necrotic tissue noted with moderate serous drainage. This is worsening from last week Wound Measurements and Assessment WC - Nurse 1 - General Ulcer Measurement Start: 10/03/20 11:27 Freq: Status: Active Protocol: Activity Type Activity Date Activity User E-Sign Co-Sign Detail Recorded Client Recorded Date Recorded By Document 10/24/20 11:16 [facility] [id number] 10/24/20 11:30 [facility] 10/24/20 11:16 Wound Center Nurse 1 [Ulcer Assessment] 3-Left TMA cluster -Combined with other wound No -Current Size (cm) - Length 0.1 -Current Size (cm) - Width 0.1 -Current Size (cm) - Depth 0.1 -Total Square Cm 0.01 -Photo Taken No -Epithelialization Large 67-100% -Tunneling No -Undermining/Tunneling No -Circular Undermining No -Exudate Amt None Present -Texture (Stacy-wound Skin Appearance) Assessed, Scarring -Moisture (Stacy-wound Skin Appearance Assessed,Dry/ ) Scaly -Color (Stacy-wound Skin Appearance) Assessed -Temperature (Stacy-wound Skin No Abnormality Appearance) (Pt Warm) -Tenderness on Palpation (Stacy-wound No Skin Appearance) -Ulcer Cleansing Wound Cleanser -Foul Odor after Cleansing No -Anesthetic Used 4% Lidocaine Solution #2- L LATERAL FOOT -Combined with other wound No -Current Size (cm) - Length 1.7 -Current Size (cm) - Width 1.1 -Current Size (cm) - Depth 0.2 -Total Square Cm 1.87 -Photo Taken No -Epithelialization None Present -Tunneling No -Undermining/Tunneling No -Circular Undermining No -Exudate Amt Medium -Exudate Type Serosanguineous -Wound Margin Distinct, Outline Attached -Granulation Amt Medium (34-66%) -Granulation Quality Red -Slough/Fibrin Yes -Necrosis Amt Medium (34-66%) -Necrotic Tissue Type Adherent Slough -Texture (Stacy-wound Skin Appearance) Assessed, Scarring -Moisture (Stacy-wound Skin Appearance Assessed ) -Color (Stacy-wound Skin Appearance) Erythema -Temperature (Stacy-wound Skin No Abnormality Appearance) (Pt Warm) -Tenderness on Palpation (Stacy-wound Yes Skin Appearance) -Ulcer Cleansing Wound Cleanser -Foul Odor after Cleansing No -Anesthetic Used 4% Lidocaine Solution #1- L LATERAL HEEL -Combined with other wound No -Current Size (cm) - Length 6 -Current Size (cm) - Width 2.2 -Current Size (cm) - Depth 0.4 -Total Square Cm 13.2 -Photo Taken No -Epithelialization None Present -Tunneling No -Undermining/Tunneling No -Circular Undermining No -Exudate Amt Large -Exudate Type Serosanguineous -Wound Margin Distinct, Outline Attached -Granulation Amt None Present (0 %) -Slough/Fibrin Yes -Necrosis Amt Large (67-100%) -Necrotic Tissue Type Adherent Slough -Texture (Stacy-wound Skin Appearance) Assessed -Moisture (Stacy-wound Skin Appearance Assessed, ) Maceration -Color (Stacy-wound Skin Appearance) Assessed, Erythema,Palor -Temperature (Stacy-wound Skin No Abnormality Appearance) (Pt Warm) -Tenderness on Palpation (Stacy-wound Yes Skin Appearance) -Ulcer Cleansing Wound Cleanser -Foul Odor after Cleansing No -Anesthetic Used 4% Lidocaine Solution WC - Nurse 2 - General Ulcer CM Notes Start: 10/03/20 11:27 Freq: Status: Active Protocol: Activity Type Activity Date Activity User E-Sign Co-Sign Detail Recorded Client Recorded Date Recorded By Document 10/24/20 11:46 [id number] 10/24/20 12:04 OPAL 10/24/20 11:46 Wound Center Nurse 2 [Procedure/Treatment] 3-Left TMA cluster -Time 11:51 -Correct Patient Yes -Correct Side, Site, Position Yes -Correct Procedure Yes -Procedure Performed Yes -Type of Procedure Debridement -Clinical Debridement Epidermis / Dermis -Tissue Removed Epidermis, Dermis -Post Debridement (cm) - Length 0.1 -Post Debridement (cm) - Width 0.1 -Post Debridement (cm) - Depth 0.1 -Total Square (Post) (cm) 0.01 -Area of Debridement (cm) - Length 0.1 -Area of Debridement (cm) - Width 0.1 -Total Square (Area) (cm) 0.01 -Tunneling No -Undermining/Tunneling No -Circular Undermining No -Wound/Ulcer Outcome Not Healed -Ulcer Cleansing Rinsed/ Irrigated with Saline -Foul Odor after Cleansing No -Bioengineered Tissue No -Bleeding Controlled with Pressure -Offloading Yes -Type of Offloading Surgical Shoe -Treatment Response Procedure Tolerated Well -Debridement - Open, 1st 20sq cm Yes -Debridement - Subq, 1st 20sq cm No #2- L LATERAL FOOT -Time 11:52 -Correct Patient Yes -Correct Side, Site, Position Yes -Correct Procedure Yes -Procedure Performed Yes -Type of Procedure Debridement -Clinical Debridement Subcutaneous -Tissue Removed Subcutaneous -Post Debridement (cm) - Length 2.7 -Post Debridement (cm) - Width 1.1 -Post Debridement (cm) - Depth 0.1 -Total Square (Post) (cm) 2.97 -Area of Debridement (cm) - Length 2.7 -Area of Debridement (cm) - Width 1.1 -Total Square (Area) (cm) 2.97 -Tunneling No -Undermining/Tunneling No -Circular Undermining No -Wound/Ulcer Outcome Not Healed -Ulcer Cleansing Rinsed/ Irrigated with Saline -Foul Odor after Cleansing No -Bioengineered Tissue No -Bleeding Controlled with Pressure -Offloading Yes -Type of Offloading Surgical Shoe -Treatment Response Procedure Tolerated Well -Debridement - Subq, 1st 20sq cm Yes #1- L LATERAL HEEL -Time 12:01 -Correct Patient Yes -Correct Side, Site, Position Yes -Correct Procedure Yes -Procedure Performed Yes -Type of Procedure Debridement -Clinical Debridement Subcutaneous -Tissue Removed Subcutaneous -Post Debridement (cm) - Length 3 -Post Debridement (cm) - Width 5.6 -Post Debridement (cm) - Depth 0.4 -Total Square (Post) (cm) 16.8 -Area of Debridement (cm) - Length 3 -Area of Debridement (cm) - Width 5.6 -Total Square (Area) (cm) 16.8 -Tunneling No -Undermining/Tunneling No -Circular Undermining No -Wound/Ulcer Outcome Not Healed -Ulcer Cleansing Rinsed/ Irrigated with Saline -Foul Odor after Cleansing No -Bioengineered Tissue No -Bleeding Controlled with Pressure -Offloading Yes -Type of Offloading Surgical Shoe -Treatment Response Procedure Tolerated Well -Debridement - Subq, 1st 20sq cm No [See Physician Procedure note for Specifics] Pain Scale: 0-10 Numeric [Pain] -Is Patient Pain Free? Yes WC - Nurse 3 - General Ulcer D/C NN Start: 10/03/20 11:27 Freq: Status: Active Protocol: Activity Type Activity Date Activity User E-Sign Co-Sign Detail Recorded Client Recorded Date Recorded By Document 10/24/20 12:14 [facility] [id number] 10/24/20 12:15 [facility] 10/24/20 12:14 Wound Care Nurse 3 [Wound Dressing] 3-Left TMA cluster -Ulcer Cleansing Rinsed/ Irrigated with Saline -Foul Odor after Cleansing No -Primary Dressing Applied Other -Other Dressing hydrogel -Primary Dressing Covered/Secured Dry Gauze & with Roll Gauze, Secured with Tape #2- L LATERAL FOOT -Ulcer Cleansing Rinsed/ Irrigated with Saline -Foul Odor after Cleansing No -Primary Dressing Applied Other -Other Dressing dakins gauze -Primary Dressing Covered/Secured Dry Gauze & with Roll Gauze, Secured with Tape #1- L LATERAL HEEL -Ulcer Cleansing Rinsed/ Irrigated with Saline -Foul Odor after Cleansing No -Primary Dressing Applied Other -Other Dressing dakins gauze, heel hat -Primary Dressing Covered/Secured Dry Gauze & with Roll Gauze, Secured with Tape [Post Procedure Tolerated] -Treatment Response Procedure Tolerated Well Pain Scale: 0-10 Numeric [Pain] -Is Patient Pain Free? Yes WC - Visit Discharge [Visit Discharge Information] -Discharge Condition Stable -Ambulatory Status Ambulatory -Transportation Private Auto -Accompanied by Musculoskeletal: Tenderness - 2 ulceration sites, - - TMA left foot Neurological: - - Decreased epicritic sensation noted Psych/Mental Status: Normal Affect, Appropriate Debridement Note Post-Debridement Measurements/Treatment WC - Nurse 2 - General Ulcer CM Notes Start: 10/03/20 11:27 Freq: Status: Active Protocol: Activity Type Activity Date Activity User E-Sign Co-Sign Detail Recorded Client Recorded Date Recorded By Document 10/03/20 12:23 [id number] 10/03/20 12:44 Document 10/10/20 09:05 [id number] 10/10/20 09:20 Document 10/17/20 11:39 [id number] 10/17/20 11:52 Document 10/24/20 11:46 [id number] 10/24/20 12:04 10/03/20 10/10/20 10/17/20 12:23 09:05 11:39 Wound Center Nurse 2 3-Left TMA cluster -Time 12:28 11:50 -Correct Patient Yes No Yes -Correct Side, Site, Position Yes No Yes -Correct Procedure Yes No Yes -Procedure Performed Yes No Yes -Type of Procedure Debridement Debridement -Clinical Debridement Subcutaneous Epidermis / Dermis -Tissue Removed Subcutaneous Epidermis, Dermis -Post Debridement (cm) - Length 4.5 0.1 -Post Debridement (cm) - Width 1.3 0.1 -Post Debridement (cm) - Depth 0.2 0.1 -Total Square (Post) (cm) 5.85 0.01 -Area of Debridement (cm) - Length 4.5 0.1 -Area of Debridement (cm) - Width 1.3 0.1 -Total Square (Area) (cm) 5.85 0.01 -Tunneling No No -Undermining/Tunneling No No -Circular Undermining No No -Wound/Ulcer Outcome Not Healed Not Healed Not Healed -Ulcer Cleansing Rinsed/ Rinsed/ Irrigated with Irrigated with Saline Saline -Foul Odor after Cleansing No No -Bioengineered Tissue No No -Bleeding Controlled with Pressure Pressure -Other 10% ulcer debrided. -Offloading Yes Yes -Type of Offloading Surgical Shoe Surgical Shoe -Treatment Response Procedure Procedure Tolerated Well Tolerated Well -Debridement - Open, 1st 20sq cm Yes -Debridement - Subq, 1st 20sq cm Yes -Debridement, SubQ, ea addt'l 20sq cm 1 or part thereof #2- L LATERAL FOOT -Time 12:31 09:08 11:48 -Correct Patient Yes Yes Yes -Correct Side, Site, Position Yes Yes Yes -Correct Procedure Yes Yes Yes -Procedure Performed Yes Yes Yes -Type of Procedure Debridement Debridement Debridement -Clinical Debridement Subcutaneous Subcutaneous Subcutaneous -Tissue Removed Subcutaneous Subcutaneous Subcutaneous -Post Debridement (cm) - Length 2 2.4 1.5 -Post Debridement (cm) - Width 1.9 1.5 1.3 -Post Debridement (cm) - Depth 0.2 0.2 0.1 -Total Square (Post) (cm) 3.8 3.60 1.95 -Area of Debridement (cm) - Length 2 2.4 1.5 -Area of Debridement (cm) - Width 1.9 1.5 1.3 -Total Square (Area) (cm) 3.8 3.60 1.95 -Tunneling No No No -Undermining/Tunneling No No No -Circular Undermining No No No -Wound/Ulcer Outcome Not Healed Not Healed Not Healed -Ulcer Cleansing Rinsed/ Rinsed/ Rinsed/ Irrigated with Irrigated with Irrigated with Saline Saline Saline -Foul Odor after Cleansing No No No -Bioengineered Tissue No No No -Bleeding Controlled with Pressure Pressure Pressure -Offloading Yes Yes Yes -Type of Offloading Surgical Shoe Surgical Shoe Surgical Shoe -Treatment Response Procedure Procedure Procedure Tolerated Well Tolerated Well Tolerated Well -Debridement - Subq, 1st 20sq cm No Yes Yes #1- L LATERAL HEEL -Time 12:39 09:09 11:49 -Correct Patient Yes Yes Yes -Correct Side, Site, Position Yes Yes Yes -Correct Procedure Yes Yes Yes -Procedure Performed Yes Yes Yes -Type of Procedure Debridement Debridement Debridement -Clinical Debridement Subcutaneous Subcutaneous Subcutaneous -Tissue Removed Subcutaneous Subcutaneous Subcutaneous -Post Debridement (cm) - Length 5.7 5 2.5 -Post Debridement (cm) - Width 3 3 5.5 -Post Debridement (cm) - Depth 0.1 0.4 0.8 -Total Square (Post) (cm) 17.1 15 13.75 -Area of Debridement (cm) - Length 5.7 5 2.5 -Area of Debridement (cm) - Width 3 3 5.5 -Total Square (Area) (cm) 17.1 15 13.75 -Tunneling No No No -Undermining/Tunneling No No No -Circular Undermining No No No -Wound/Ulcer Outcome Not Healed Not Healed Not Healed -Ulcer Cleansing Rinsed/ Rinsed/ Rinsed/ Irrigated with Irrigated with Irrigated with Saline Saline Saline -Foul Odor after Cleansing No No No -Bioengineered Tissue No No No -Bleeding Controlled with Pressure Pressure Pressure -Offloading Yes Yes Yes -Type of Offloading Surgical Shoe Surgical Shoe Surgical Shoe -Treatment Response Procedure Procedure Procedure Tolerated Well Tolerated Well Tolerated Well -Debridement - Subq, 1st 20sq cm No No No Pain Scale: 0-10 Numeric Is Patient Pain Free? Yes Yes 10/24/20 11:46 Wound Center Nurse 2 3-Left TMA cluster -Time 11:51 -Correct Patient Yes -Correct Side, Site, Position Yes -Correct Procedure Yes -Procedure Performed Yes -Type of Procedure Debridement -Clinical Debridement Epidermis / Dermis -Tissue Removed Epidermis, Dermis -Post Debridement (cm) - Length 0.1 -Post Debridement (cm) - Width 0.1 -Post Debridement (cm) - Depth 0.1 -Total Square (Post) (cm) 0.01 -Area of Debridement (cm) - Length 0.1 -Area of Debridement (cm) - Width 0.1 -Total Square (Area) (cm) 0.01 -Tunneling No -Undermining/Tunneling No -Circular Undermining No -Wound/Ulcer Outcome Not Healed -Ulcer Cleansing Rinsed/ Irrigated with Saline -Foul Odor after Cleansing No -Bioengineered Tissue No -Bleeding Controlled with Pressure -Other -Offloading Yes -Type of Offloading Surgical Shoe -Treatment Response Procedure Tolerated Well -Debridement - Open, 1st 20sq cm Yes -Debridement - Subq, 1st 20sq cm No -Debridement, SubQ, ea addt'l 20sq cm or part thereof #2- L LATERAL FOOT -Time 11:52 -Correct Patient Yes -Correct Side, Site, Position Yes -Correct Procedure Yes -Procedure Performed Yes -Type of Procedure Debridement -Clinical Debridement Subcutaneous -Tissue Removed Subcutaneous -Post Debridement (cm) - Length 2.7 -Post Debridement (cm) - Width 1.1 -Post Debridement (cm) - Depth 0.1 -Total Square (Post) (cm) 2.97 -Area of Debridement (cm) - Length 2.7 -Area of Debridement (cm) - Width 1.1 -Total Square (Area) (cm) 2.97 -Tunneling No -Undermining/Tunneling No -Circular Undermining No -Wound/Ulcer Outcome Not Healed -Ulcer Cleansing Rinsed/ Irrigated with Saline -Foul Odor after Cleansing No -Bioengineered Tissue No -Bleeding Controlled with Pressure -Offloading Yes -Type of Offloading Surgical Shoe -Treatment Response Procedure Tolerated Well -Debridement - Subq, 1st 20sq cm Yes #1- L LATERAL HEEL -Time 12:01 -Correct Patient Yes -Correct Side, Site, Position Yes -Correct Procedure Yes -Procedure Performed Yes -Type of Procedure Debridement -Clinical Debridement Subcutaneous -Tissue Removed Subcutaneous -Post Debridement (cm) - Length 3 -Post Debridement (cm) - Width 5.6 -Post Debridement (cm) - Depth 0.4 -Total Square (Post) (cm) 16.8 -Area of Debridement (cm) - Length 3 -Area of Debridement (cm) - Width 5.6 -Total Square (Area) (cm) 16.8 -Tunneling No -Undermining/Tunneling No -Circular Undermining No -Wound/Ulcer Outcome Not Healed -Ulcer Cleansing Rinsed/ Irrigated with Saline -Foul Odor after Cleansing No -Bioengineered Tissue No -Bleeding Controlled with Pressure -Offloading Yes -Type of Offloading Surgical Shoe -Treatment Response Procedure Tolerated Well -Debridement - Subq, 1st 20sq cm No Pain Scale: 0-10 Numeric Is Patient Pain Free? Yes WC - Nurse 3 - General Ulcer D/C NN Start: 10/03/20 11:27 Freq: Status: Active Protocol: Activity Type Activity Date Activity User E-Sign Co-Sign Detail Recorded Client Recorded Date Recorded By Document 10/03/20 12:44 [id number] 10/03/20 12:45 JF Document 10/10/20 09:20 JF [id number] 10/10/20 09:21 JF Document 10/17/20 12:05 DL [id number] 10/17/20 12:08 DL Document 10/24/20 12:14 BMF [id number] 10/24/20 12:15 BMF 10/03/20 10/10/20 10/17/20 12:44 09:20 12:05 Wound Care Nurse 3 3-Left TMA cluster -Ulcer Cleansing Rinsed/ Rinsed/ Rinsed/ Irrigated with Irrigated with Irrigated with Saline Saline Saline -Foul Odor after Cleansing No No No -Primary Dressing Applied Enzymatic C Hydrogel ($) -Other Dressing HYDROGEL -Primary Dressing Covered/Secured with Dry Gauze & Dry Gauze & Dry Gauze & Roll Gauze, Roll Gauze, Roll Gauze, Secured with Secured with Secured with Tape Tape Tape #2- L LATERAL FOOT -Ulcer Cleansing Rinsed/ Rinsed/ Rinsed/ Irrigated with Irrigated with Irrigated with Saline Saline Saline -Foul Odor after Cleansing No No No -Primary Dressing Applied Enzymatic -Other Dressing dakin's dAKINS moistened guaze -Primary Dressing Covered/Secured with Dry Gauze & Dry Gauze & Dry Gauze & Roll Gauze, Roll Gauze, Roll Gauze, Secured with Secured with Secured with Tape Tape Tape #1- L LATERAL HEEL -Ulcer Cleansing Rinsed/ Rinsed/ Rinsed/ Irrigated with Irrigated with Irrigated with Saline Saline Saline -Foul Odor after Cleansing No No No -Primary Dressing Applied Enzymatic -Other Dressing 0.25% DAKIN DAKINS SOLUTION -Primary Dressing Covered/Secured with Dry Gauze & Dry Gauze & Dry Gauze & Roll Gauze, Roll Gauze, Roll Gauze, Secured with Secured with Secured with Tape Tape Tape Treatment Response Procedure Tolerated Well Pain Scale: 0-10 Numeric Is Patient Pain Free? Yes Yes Yes WC - Visit Discharge Discharge Condition Stable Stable Stable Ambulatory Status Wheelchair Ambulatory Ambulatory Transportation Private Auto Private Auto Private Auto Accompanied by MOTHER Medication Reconcilliation completed & Yes Yes provided to patient/care provider Clinical Summary of Care Provided Yes Yes 10/24/20 12:14 Wound Care Nurse 3 3-Left TMA cluster -Ulcer Cleansing Rinsed/ Irrigated with Saline -Foul Odor after Cleansing No -Primary Dressing Applied Other -Other Dressing hydrogel -Primary Dressing Covered/Secured with Dry Gauze & Roll Gauze, Secured with Tape #2- L LATERAL FOOT -Ulcer Cleansing Rinsed/ Irrigated with Saline -Foul Odor after Cleansing No -Primary Dressing Applied Other -Other Dressing dakins gauze -Primary Dressing Covered/Secured with Dry Gauze & Roll Gauze, Secured with Tape #1- L LATERAL HEEL -Ulcer Cleansing Rinsed/ Irrigated with Saline -Foul Odor after Cleansing No -Primary Dressing Applied Other -Other Dressing dakins gauze, heel hat -Primary Dressing Covered/Secured with Dry Gauze & Roll Gauze, Secured with Tape Treatment Response Procedure Tolerated Well Pain Scale: 0-10 Numeric Is Patient Pain Free? Yes WC - Visit Discharge Discharge Condition Stable Ambulatory Status Ambulatory Transportation Private Auto Accompanied by Medication Reconcilliation completed & provided to patient/care provider Clinical Summary of Care Provided Wound debrided: Lateral plantar heel Laterality: Left Wound Grade/Stage: Barker 3 Type of Debridement: Excisional debridement Anesthesia Used: 4% Lidocaine Solution Depth: in the subcutaneous layer Percentage of wound debrided: 100 Instrument Used: #15 blade, Forceps Tissue Removed: includes fibrous, devitalized, biofilm, necrotic, and slough tissue Severity: Fat Layer Exposed - Probes to near bone Amount of bleeding with debridement: Mild Bleeding Controlled with: Pressure Patient tolerated procedure well - Additional Wound Wound debrided: Lateral forefoot Laterality: Left Wound Grade/Stage: Barker 1 Type of Debridement: Excisional debridement Anesthesia Used: 4% Lidocaine Solution Depth: in the subcutaneous layer Percentage of wound debrided: 100 Instrument Used: #15 blade, Forceps Tissue Removed: Tissue removed includes fibrous, devitalized, biofilm, and slough tissue Severity: Fat Layer Exposed Amount of bleeding with debridement: Mild Bleeding Controlled with: Pressure Patient tolerated procedure: Patient tolerated procedure well - Additional Wound Wound debrided: Distal TMA stump Laterality: Left Wound Grade/Stage: Barker 1 Type of Debridement: Selective debridement Anesthesia Used: 4% Lidocaine Solution Depth: Down to and including healthy tissue Percentage of wound debrided: 100 Instrument Used: Forceps Tissue Removed: Tissue removed includes fibrous, devitalized, biofilm, and slough tissue Severity: Limited To Skin Breakdown Amount of bleeding with debridement: Mild Bleeding Controlled with: Pressure Patient tolerated procedure: Patient tolerated procedure well Assessment/Plan Clinical Impression(s) from Imaging Studies Lower Extremity MRI 10/20/20 16:24 IMPRESSION: 1. A large open wound is present in the lateral posterior and plantar aspect of the calcaneal process with associated mild cortical thinning and mild to moderate underlying edema due to active osteomyelitis. 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 Left foot lateral foot ulcer. Transmetatarsal amputation site stump fissures. Left foot cellulitis. History of left transmetatarsal amputation. Diabetes. peripheral vascular disease Plan: [facility] is [facility] Patient seen and examined. Culture from 07/18/2020 shows MSSA treated with Augmentin. . Wounds are worsening. Patient is continuing Augmentin prescribed 10/17/20. Cultures from 10/03/20 showing Corynebacterium amycolatum, Staphylococcus aureus, Klebsiella pneumoniae, E. coli. Patient's creatinine clearance was 57 on 08/08/2020. Ulcerations were sharply debrided today without incident after verbal consent obtained. Patient underwent vascular intervention on 08/15/[address] Jeff and again on 09/20/20. Patient has had previous surgical intervention with Dr. Jeff in the past as well. He had recent arterial studies on 06/13/20 showing monophasic waveforms and noncompressible bilateral PT and DP on the right with an left PAYAL of 0.78 on left. Discussed at length the importance of offloading with the patient in order to allow proper wound healing. Patient uses a walker. Patient states that he has an offloading shoe at home but is uncomfortable and twists when he tries to wear it while sleeping as he moves in his sleep. Patient does not wear it while sleeping. Discussed with patient the importance of his offloading suggested other alternative methods such as pillows or a doughnut offloading pad. Patient has no interest in this. Again the importance of offloading to allow ulcer to heal. Also discussed the importance of offloading when not sleeping such as in a chair with floating the heel with pillows. Patient also has a surgical shoe with cut out to offload the heel. He states he only wears this when he is out on the town and does not wear it at home. Discussed with patient the importance of proper nutrition and blood sugar control to also aid in wound healing. Patient and educated on proper dressing changes. We will continue Dakin's wet to dry until drainage is better controlled. Dressing changed. Foot is warmer compared to last visit and had healthy bleeding upon debridement. There is still surrounding erythema with decent drainage concerning for cellulitis. Concern for how close the lateral heel ulceration is to bone. This is been open at this level for several weeks at this point. Concern for possibility of infection having infected the bone. An MRI was ordered. Reviewed MRI from 10/20/2020 with the patient and . MRI demonstrated acute osteomyelitis to the left calcaneus. Discussed with the patient in depth the various treatment options including debridement of infected bone, course of antibiotics, below-knee amputation. Discussed with patient the risks and benefits of all the options. Patient would like to further explore the options of antibiotics and BKA. Referral was sent to Dr. Garnett infectious disease as well as to Dr. Quiroga for potential BKA. Patient was able to get in with Dr. Garnett tomorrow. Will await his recommendations for antibiotics. No further antibiotics were sent today. New culture was obtained today of the left heel ulceration. All questions answered. Patient is to follow-up in 1 week. The problems addressed require a low medical decision making level which includes two or more minor problems, a stable chronic illness, or an acute uncomplicated illness or injury. This note was generated with [employer] dictation software. It may contain incorrect words, spelling, and punctuation that were not noted in checking the note before signing.
[2020-10-31 09:37] VITALS: BP 128/90; RESP 16; TEMP 35.8; BMI 24.4
--- NOTE | 2020-10-31 12:14 | PN.PCM_ITS ---
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 Qualifiers: Encounter type: subsequent encounter Laterality: left Qualified Code(s): S98.312D - Complete traumatic amputation of left midfoot, subsequent encounter Code(s): S98.319A - Complete traumatic amputation of unspecified midfoot, initial encounter (5) Type 2 diabetes mellitus with foot ulcer Status: Chronic Code(s): E11.621 - Type 2 diabetes mellitus with foot ulcer; L97.509 - Non-pressure chronic ulcer of other part of unspecified foot with unspecified severity (6) Peripheral vascular occlusive disease Status: Chronic Code(s): I73.9 - Peripheral vascular disease, unspecified Comment: Left above and below the knee popliteal and tibioperoneal trunk atherectomy and angioplasty 06/28/14 Left below the knee popliteal atherectomy w/ angioplasty 12/29/13 (7) Cellulitis of foot, left Status: Acute Code(s): L03.116 - Cellulitis of left lower limb Type of Wound Date of Service: 10/31/20 Chief Complaint: Left heel and lateral foot ulcerations. Cellulitis. osteomyelitis. Peripheral vascular disease History of Wound: Patient is a 75-year-old male who presents to the wound care center after being seen in office by Dr. Pelaez [facility] for chronic left foot wound. 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 He also has had left posterior heel ulceration. Patient had an angioplasty intervention with Dr. Jeff on 08/15/20. Patient had another intervention 09/20/20. Patient has a history of peripheral vascular disease and has had surgical intervention in the past. Patient has taken Augmentin for heel ulcer infection. Patient had previous cultures obtained in office which showed MSSA. Patient states that he has an offloading boot that he kicks his way out of and wakes him up at night. Patient has not found any other method of offloading to assist during sleeping. Patient has elevated the foot on pillows when sitting in chairs to offload the heel. Patient also has an offloading heel cut out surgical shoe she only wears when he is out of the house. When he is in the house patient states that he goes barefoot. Patient reports decrease in pain over the last week, especially since his angio. Patient and saw Dr. Jeff and showed him the regression of the wound with more necrotic tissue and ask if there is anything else he can do. Patient had further intervention 09/20/20. Since then the wound has become warm again. There is increased in fibrotic tissue and necrotic tissue noted. Patient had MRI obtained 10/20/2020 demonstrating A large open wound is present in the lateral posterior and plantar aspect of the calcaneal process with associated mild cortical thinning and mild to moderate underlying edema due to active osteomyelitis. Patient followed up with Dr. Garnett per he was started on oral antibiotics to manage the osteomyelitis. Patient is unsure as to which ones he is currently taken. Patient is to bring in the list that we will try to obtain note from Dr. Garnett's office. Progress of Wound: Left heel ulceration improving with less fibrotic tissue noted. Left lateral foot ulcer stable Subjective: Patient seen and examined resting comfortably. Patient denies any new pedal complaints. Patient denies any nausea, fever, chills, chest pain, shortness of breath, cough, streaking, purulence, vomiting. - Physical Exam Vital Signs Temp Pulse Resp BP 96.5 F L 81 16 128/90 H 10/31/20 09:37 10/24/20 11:16 10/31/20 09:37 10/31/20 09:37 General: Alert, Oriented x3 HEENT: Atraumatic - Next thanks Extremities: No clubbing, No cyanosis, No edema, Capillary Refill Less than 3 Seconds, No Calf Tenderness, Diminished Peripheral Pulses - Cannot Skin: Ulcer/ Wound - Left lateral heel ulceration. Less fibrotic and necrotic tissue noted. Healthy bleeding. Less erythema and edema periwound. Probes near bone. No purulent drainage. Left lateral foot ulceration. No malodor, erythema, purulence, probing to bone, streaking, fluctuation, crepitus Wound Measurements and Assessment WC - Nurse 1 - General Ulcer Measurement Start: 10/03/20 11:27 Freq: Status: Active Protocol: Activity Type Activity Date Activity User E-Sign Co-Sign Detail Recorded Client Recorded Date Recorded By Document 10/31/20 09:37 [facility] [id number] 10/31/20 09:43 [facility] 10/31/20 09:37 Wound Center Nurse 1 [Ulcer Assessment] 3-Left TMA cluster -Combined with other wound No -Current Size (cm) - Length 0.1 -Current Size (cm) - Width 0.1 -Current Size (cm) - Depth 0.1 -Total Square Cm 0.01 -Epithelialization Large 67-100% -Tunneling No -Undermining/Tunneling No -Circular Undermining No -Texture (Stacy-wound Skin Appearance) Assessed -Moisture (Stacy-wound Skin Appearance Assessed ) -Color (Stacy-wound Skin Appearance) Assessed -Temperature (Stacy-wound Skin No Abnormality Appearance) (Pt Warm) -Tenderness on Palpation (Stacy-wound No Skin Appearance) -Ulcer Cleansing soapy water -Foul Odor after Cleansing No -Anesthetic Used 4% Lidocaine Solution #2- L LATERAL FOOT -Combined with other wound No -Current Size (cm) - Length 1.4 -Current Size (cm) - Width 0.7 -Current Size (cm) - Depth 0.1 -Total Square Cm 0.98 -Photo Taken No -Epithelialization None Present -Tunneling No -Undermining/Tunneling No -Circular Undermining No -Exudate Amt Large -Exudate Type Serosanguineous -Wound Margin Distinct, Outline Attached -Granulation Amt Medium (34-66%) -Granulation Quality Red -Slough/Fibrin Yes -Necrosis Amt Medium (34-66%) -Necrotic Tissue Type Adherent Slough -Texture (Stacy-wound Skin Appearance) Assessed, Scarring -Moisture (Stacy-wound Skin Appearance Assessed ) -Color (Stacy-wound Skin Appearance) Assessed, Erythema -Temperature (Stacy-wound Skin No Abnormality Appearance) (Pt Warm) -Tenderness on Palpation (Stacy-wound Yes Skin Appearance) -Ulcer Cleansing soapy water -Foul Odor after Cleansing No -Anesthetic Used 4% Lidocaine Solution #1- L LATERAL HEEL -Combined with other wound No -Current Size (cm) - Length 5.6 -Current Size (cm) - Width 2.7 -Current Size (cm) - Depth 0.3 -Total Square Cm 15.12 -Photo Taken No -Epithelialization None Present -Tunneling No -Undermining/Tunneling No -Circular Undermining No -Exudate Amt Large -Exudate Type Serosanguineous -Wound Margin Distinct, Outline Attached -Granulation Amt Medium (34-66%) -Granulation Quality Red -Slough/Fibrin Yes -Necrosis Amt Medium (34-66%) -Necrotic Tissue Type Adherent Slough -Texture (Stacy-wound Skin Appearance) Assessed, Scarring -Moisture (Stacy-wound Skin Appearance Assessed ) -Color (Stacy-wound Skin Appearance) Assessed, Erythema -Temperature (Stacy-wound Skin No Abnormality Appearance) (Pt Warm) -Tenderness on Palpation (Stacy-wound No Skin Appearance) -Ulcer Cleansing soapy water -Foul Odor after Cleansing No -Anesthetic Used 4% Lidocaine Solution WC - Nurse 2 - General Ulcer CM Notes Start: 10/03/20 11:27 Freq: Status: Active Protocol: Activity Type Activity Date Activity User E-Sign Co-Sign Detail Recorded Client Recorded Date Recorded By Document 10/31/20 10:07 OPAL [id number] 10/31/20 10:13 OPAL 10/31/20 10:07 Wound Center Nurse 2 [Procedure/Treatment] 3-Left TMA cluster -Correct Patient No -Correct Side, Site, Position No -Correct Procedure No -Procedure Performed No -Post Debridement (cm) - Length 0 -Post Debridement (cm) - Width 0 -Post Debridement (cm) - Depth 0 -Total Square (Post) (cm) 0 -Area of Debridement (cm) - Length 0 -Area of Debridement (cm) - Width 0 -Total Square (Area) (cm) 0 -Wound/Ulcer Outcome Healed- Epithelialized #2- L LATERAL FOOT -Time 10:08 -Correct Patient Yes -Correct Side, Site, Position Yes -Correct Procedure Yes -Procedure Performed Yes -Type of Procedure Debridement -Clinical Debridement Subcutaneous -Tissue Removed Subcutaneous -Post Debridement (cm) - Length 1.5 -Post Debridement (cm) - Width 1 -Post Debridement (cm) - Depth 0.1 -Total Square (Post) (cm) 1.5 -Area of Debridement (cm) - Length 1.5 -Area of Debridement (cm) - Width 1 -Total Square (Area) (cm) 1.5 -Tunneling No -Undermining/Tunneling No -Circular Undermining No -Wound/Ulcer Outcome Not Healed -Ulcer Cleansing Rinsed/ Irrigated with Saline -Foul Odor after Cleansing No -Bioengineered Tissue No -Bleeding Controlled with Pressure -Offloading Yes -Type of Offloading Surgical Shoe -Treatment Response Procedure Tolerated Well -Debridement - Subq, 1st 20sq cm Yes #1- L LATERAL HEEL -Time 10:08 -Correct Patient Yes -Correct Side, Site, Position Yes -Correct Procedure Yes -Procedure Performed Yes -Type of Procedure Debridement -Clinical Debridement Subcutaneous -Tissue Removed Subcutaneous -Post Debridement (cm) - Length 5.4 -Post Debridement (cm) - Width 3 -Post Debridement (cm) - Depth 0.5 -Total Square (Post) (cm) 16.2 -Area of Debridement (cm) - Length 5.4 -Area of Debridement (cm) - Width 3 -Total Square (Area) (cm) 16.2 -Tunneling No -Undermining/Tunneling No -Circular Undermining No -Wound/Ulcer Outcome Not Healed -Ulcer Cleansing Rinsed/ Irrigated with Saline -Foul Odor after Cleansing No -Bioengineered Tissue No -Bleeding Controlled with Pressure -Offloading Yes -Type of Offloading Surgical Shoe -Treatment Response Procedure Tolerated Well -Debridement - Subq, 1st 20sq cm No [See Physician Procedure note for Specifics] Pain Scale: 0-10 Numeric [Pain] -Is Patient Pain Free? Yes WC - Nurse 3 - General Ulcer D/C NN Start: 10/03/20 11:27 Freq: Status: Active Protocol: Activity Type Activity Date Activity User E-Sign Co-Sign Detail Recorded Client Recorded Date Recorded By Document 10/31/20 10:24 [facility] [id number] 10/31/20 10:24 [facility] 10/31/20 10:24 Wound Care Nurse 3 [Wound Dressing] #2- L LATERAL FOOT -Ulcer Cleansing Rinsed/ Irrigated with Saline -Foul Odor after Cleansing No -Primary Dressing Applied C Hydrogel ($) -Primary Dressing Covered/Secured Dry Gauze & with Roll Gauze, Secured with Tape #1- L LATERAL HEEL -Ulcer Cleansing Rinsed/ Irrigated with Saline -Foul Odor after Cleansing No -Primary Dressing Applied Other -Other Dressing dakins moist gauze -Primary Dressing Covered/Secured Dry Gauze & with Roll Gauze, Secured with Tape,Other -Other Covering heel hat [Post Procedure Tolerated] -Treatment Response Procedure Tolerated Well Pain Scale: 0-10 Numeric [Pain] -Is Patient Pain Free? Yes WC - Visit Discharge [Visit Discharge Information] -Discharge Condition Stable -Ambulatory Status Ambulatory -Transportation Private Auto -Accompanied by Musculoskeletal: Tenderness, - - TMA left foot Neurological: - - Decrease in epicritic sensation consistent with neuropathy Psych/Mental Status: Normal Affect, Appropriate Debridement Note Post-Debridement Measurements/Treatment - Nurse 2 - General Ulcer CM Notes Start: 10/03/20 11:27 Freq: Status: Active Protocol: Activity Type Activity Date Activity User E-Sign Co-Sign Detail Recorded Client Recorded Date Recorded By Document 10/03/20 12:23 [facility] [id number] 10/03/20 12:44 Document 10/10/20 09:05 [facility] [id number] 10/10/20 09:20 Document 10/17/20 11:39 [facility] [id number] 10/17/20 11:52 Document 10/24/20 11:46 [facility] [id number] 10/24/20 12:04 Document 10/31/20 10:07 [facility] [id number] 10/31/20 10:13 JF 10/03/20 10/10/20 10/17/20 12:23 09:05 11:39 Wound Center Nurse 2 3-Left TMA cluster -Time 12:28 11:50 -Correct Patient Yes No Yes -Correct Side, Site, Position Yes No Yes -Correct Procedure Yes No Yes -Procedure Performed Yes No Yes -Type of Procedure Debridement Debridement -Clinical Debridement Subcutaneous Epidermis / Dermis -Tissue Removed Subcutaneous Epidermis, Dermis -Post Debridement (cm) - Length 4.5 0.1 -Post Debridement (cm) - Width 1.3 0.1 -Post Debridement (cm) - Depth 0.2 0.1 -Total Square (Post) (cm) 5.85 0.01 -Area of Debridement (cm) - Length 4.5 0.1 -Area of Debridement (cm) - Width 1.3 0.1 -Total Square (Area) (cm) 5.85 0.01 -Tunneling No No -Undermining/Tunneling No No -Circular Undermining No No -Wound/Ulcer Outcome Not Healed Not Healed Not Healed -Ulcer Cleansing Rinsed/ Rinsed/ Irrigated with Irrigated with Saline Saline -Foul Odor after Cleansing No No -Bioengineered Tissue No No -Bleeding Controlled with Pressure Pressure -Other 10% ulcer debrided. -Offloading Yes Yes -Type of Offloading Surgical Shoe Surgical Shoe -Treatment Response Procedure Procedure Tolerated Well Tolerated Well -Debridement - Open, 1st 20sq cm Yes -Debridement - Subq, 1st 20sq cm Yes -Debridement, SubQ, ea addt'l 20sq cm 1 or part thereof #2- L LATERAL FOOT -Time 12:31 09:08 11:48 -Correct Patient Yes Yes Yes -Correct Side, Site, Position Yes Yes Yes -Correct Procedure Yes Yes Yes -Procedure Performed Yes Yes Yes -Type of Procedure Debridement Debridement Debridement -Clinical Debridement Subcutaneous Subcutaneous Subcutaneous -Tissue Removed Subcutaneous Subcutaneous Subcutaneous -Post Debridement (cm) - Length 2 2.4 1.5 -Post Debridement (cm) - Width 1.9 1.5 1.3 -Post Debridement (cm) - Depth 0.2 0.2 0.1 -Total Square (Post) (cm) 3.8 3.60 1.95 -Area of Debridement (cm) - Length 2 2.4 1.5 -Area of Debridement (cm) - Width 1.9 1.5 1.3 -Total Square (Area) (cm) 3.8 3.60 1.95 -Tunneling No No No -Undermining/Tunneling No No No -Circular Undermining No No No -Wound/Ulcer Outcome Not Healed Not Healed Not Healed -Ulcer Cleansing Rinsed/ Rinsed/ Rinsed/ Irrigated with Irrigated with Irrigated with Saline Saline Saline -Foul Odor after Cleansing No No No -Bioengineered Tissue No No No -Bleeding Controlled with Pressure Pressure Pressure -Offloading Yes Yes Yes -Type of Offloading Surgical Shoe Surgical Shoe Surgical Shoe -Treatment Response Procedure Procedure Procedure Tolerated Well Tolerated Well Tolerated Well -Debridement - Subq, 1st 20sq cm No Yes Yes #1- L LATERAL HEEL -Time 12:39 09:09 11:49 -Correct Patient Yes Yes Yes -Correct Side, Site, Position Yes Yes Yes -Correct Procedure Yes Yes Yes -Procedure Performed Yes Yes Yes -Type of Procedure Debridement Debridement Debridement -Clinical Debridement Subcutaneous Subcutaneous Subcutaneous -Tissue Removed Subcutaneous Subcutaneous Subcutaneous -Post Debridement (cm) - Length 5.7 5 2.5 -Post Debridement (cm) - Width 3 3 5.5 -Post Debridement (cm) - Depth 0.1 0.4 0.8 -Total Square (Post) (cm) 17.1 15 13.75 -Area of Debridement (cm) - Length 5.7 5 2.5 -Area of Debridement (cm) - Width 3 3 5.5 -Total Square (Area) (cm) 17.1 15 13.75 -Tunneling No No No -Undermining/Tunneling No No No -Circular Undermining No No No -Wound/Ulcer Outcome Not Healed Not Healed Not Healed -Ulcer Cleansing Rinsed/ Rinsed/ Rinsed/ Irrigated with Irrigated with Irrigated with Saline Saline Saline -Foul Odor after Cleansing No No No -Bioengineered Tissue No No No -Bleeding Controlled with Pressure Pressure Pressure -Offloading Yes Yes Yes -Type of Offloading Surgical Shoe Surgical Shoe Surgical Shoe -Treatment Response Procedure Procedure Procedure Tolerated Well Tolerated Well Tolerated Well -Debridement - Subq, 1st 20sq cm No No No Pain Scale: 0-10 Numeric Is Patient Pain Free? Yes Yes 10/24/20 10/31/20 11:46 10:07 Wound Center Nurse 2 3-Left TMA cluster -Time 11:51 -Correct Patient Yes No -Correct Side, Site, Position Yes No -Correct Procedure Yes No -Procedure Performed Yes No -Type of Procedure Debridement -Clinical Debridement Epidermis / Dermis -Tissue Removed Epidermis, Dermis -Post Debridement (cm) - Length 0.1 0 -Post Debridement (cm) - Width 0.1 0 -Post Debridement (cm) - Depth 0.1 0 -Total Square (Post) (cm) 0.01 0 -Area of Debridement (cm) - Length 0.1 0 -Area of Debridement (cm) - Width 0.1 0 -Total Square (Area) (cm) 0.01 0 -Tunneling No -Undermining/Tunneling No -Circular Undermining No -Wound/Ulcer Outcome Not Healed Healed- Epithelialized -Ulcer Cleansing Rinsed/ Irrigated with Saline -Foul Odor after Cleansing No -Bioengineered Tissue No -Bleeding Controlled with Pressure -Other -Offloading Yes -Type of Offloading Surgical Shoe -Treatment Response Procedure Tolerated Well -Debridement - Open, 1st 20sq cm Yes -Debridement - Subq, 1st 20sq cm No -Debridement, SubQ, ea addt'l 20sq cm or part thereof #2- L LATERAL FOOT -Time 11:52 10:08 -Correct Patient Yes Yes -Correct Side, Site, Position Yes Yes -Correct Procedure Yes Yes -Procedure Performed Yes Yes -Type of Procedure Debridement Debridement -Clinical Debridement Subcutaneous Subcutaneous -Tissue Removed Subcutaneous Subcutaneous -Post Debridement (cm) - Length 2.7 1.5 -Post Debridement (cm) - Width 1.1 1 -Post Debridement (cm) - Depth 0.1 0.1 -Total Square (Post) (cm) 2.97 1.5 -Area of Debridement (cm) - Length 2.7 1.5 -Area of Debridement (cm) - Width 1.1 1 -Total Square (Area) (cm) 2.97 1.5 -Tunneling No No -Undermining/Tunneling No No -Circular Undermining No No -Wound/Ulcer Outcome Not Healed Not Healed -Ulcer Cleansing Rinsed/ Rinsed/ Irrigated with Irrigated with Saline Saline -Foul Odor after Cleansing No No -Bioengineered Tissue No No -Bleeding Controlled with Pressure Pressure -Offloading Yes Yes -Type of Offloading Surgical Shoe Surgical Shoe -Treatment Response Procedure Procedure Tolerated Well Tolerated Well -Debridement - Subq, 1st 20sq cm Yes Yes #1- L LATERAL HEEL -Time 12:01 10:08 -Correct Patient Yes Yes -Correct Side, Site, Position Yes Yes -Correct Procedure Yes Yes -Procedure Performed Yes Yes -Type of Procedure Debridement Debridement -Clinical Debridement Subcutaneous Subcutaneous -Tissue Removed Subcutaneous Subcutaneous -Post Debridement (cm) - Length 3 5.4 -Post Debridement (cm) - Width 5.6 3 -Post Debridement (cm) - Depth 0.4 0.5 -Total Square (Post) (cm) 16.8 16.2 -Area of Debridement (cm) - Length 3 5.4 -Area of Debridement (cm) - Width 5.6 3 -Total Square (Area) (cm) 16.8 16.2 -Tunneling No No -Undermining/Tunneling No No -Circular Undermining No No -Wound/Ulcer Outcome Not Healed Not Healed -Ulcer Cleansing Rinsed/ Rinsed/ Irrigated with Irrigated with Saline Saline -Foul Odor after Cleansing No No -Bioengineered Tissue No No -Bleeding Controlled with Pressure Pressure -Offloading Yes Yes -Type of Offloading Surgical Shoe Surgical Shoe -Treatment Response Procedure Procedure Tolerated Well Tolerated Well -Debridement - Subq, 1st 20sq cm No No Pain Scale: 0-10 Numeric Is Patient Pain Free? Yes Yes WC - Nurse 3 - General Ulcer D/C NN Start: 10/03/20 11:27 Freq: Status: Active Protocol: Activity Type Activity Date Activity User E-Sign Co-Sign Detail Recorded Client Recorded Date Recorded By Document 10/03/20 12:44 [id number] 10/03/20 12:45 JF Document 10/10/20 09:20 JF [id number] 10/10/20 09:21 JF Document 10/17/20 12:05 DL [id number] 10/17/20 12:08 DL Document 10/24/20 12:14 BMF [id number] 10/24/20 12:15 BMF Document 10/31/20 10:24 BMF [id number] 10/31/20 10:24 BMF 10/03/20 10/10/20 10/17/20 12:44 09:20 12:05 Wound Care Nurse 3 3-Left TMA cluster -Ulcer Cleansing Rinsed/ Rinsed/ Rinsed/ Irrigated with Irrigated with Irrigated with Saline Saline Saline -Foul Odor after Cleansing No No No -Primary Dressing Applied Enzymatic C Hydrogel ($) -Other Dressing HYDROGEL -Primary Dressing Covered/Secured with Dry Gauze & Dry Gauze & Dry Gauze & Roll Gauze, Roll Gauze, Roll Gauze, Secured with Secured with Secured with Tape Tape Tape #2- L LATERAL FOOT -Ulcer Cleansing Rinsed/ Rinsed/ Rinsed/ Irrigated with Irrigated with Irrigated with Saline Saline Saline -Foul Odor after Cleansing No No No -Primary Dressing Applied Enzymatic -Other Dressing dakin's dAKINS moistened guaze -Primary Dressing Covered/Secured with Dry Gauze & Dry Gauze & Dry Gauze & Roll Gauze, Roll Gauze, Roll Gauze, Secured with Secured with Secured with Tape Tape Tape #1- L LATERAL HEEL -Ulcer Cleansing Rinsed/ Rinsed/ Rinsed/ Irrigated with Irrigated with Irrigated with Saline Saline Saline -Foul Odor after Cleansing No No No -Primary Dressing Applied Enzymatic -Other Dressing 0.25% DAKIN DAKINS SOLUTION -Primary Dressing Covered/Secured with Dry Gauze & Dry Gauze & Dry Gauze & Roll Gauze, Roll Gauze, Roll Gauze, Secured with Secured with Secured with Tape Tape Tape -Other Covering Treatment Response Procedure Tolerated Well Pain Scale: 0-10 Numeric Is Patient Pain Free? Yes Yes Yes WC - Visit Discharge Discharge Condition Stable Stable Stable Ambulatory Status Wheelchair Ambulatory Ambulatory Transportation Private Auto Private Auto Private Auto Accompanied by MOTHER Medication Reconcilliation completed & Yes Yes provided to patient/care provider Clinical Summary of Care Provided Yes Yes 10/24/20 10/31/20 12:14 10:24 Wound Care Nurse 3 3-Left TMA cluster -Ulcer Cleansing Rinsed/ Irrigated with Saline -Foul Odor after Cleansing No -Primary Dressing Applied Other -Other Dressing hydrogel -Primary Dressing Covered/Secured with Dry Gauze & Roll Gauze, Secured with Tape #2- L LATERAL FOOT -Ulcer Cleansing Rinsed/ Rinsed/ Irrigated with Irrigated with Saline Saline -Foul Odor after Cleansing No No -Primary Dressing Applied Other C Hydrogel ($) -Other Dressing dakins gauze -Primary Dressing Covered/Secured with Dry Gauze & Dry Gauze & Roll Gauze, Roll Gauze, Secured with Secured with Tape Tape #1- L LATERAL HEEL -Ulcer Cleansing Rinsed/ Rinsed/ Irrigated with Irrigated with Saline Saline -Foul Odor after Cleansing No No -Primary Dressing Applied Other Other -Other Dressing dakins gauze, dakins moist heel hat gauze -Primary Dressing Covered/Secured with Dry Gauze & Dry Gauze & Roll Gauze, Roll Gauze, Secured with Secured with Tape Tape,Other -Other Covering heel hat Treatment Response Procedure Procedure Tolerated Well Tolerated Well Pain Scale: 0-10 Numeric Is Patient Pain Free? Yes Yes WC - Visit Discharge Discharge Condition Stable Stable Ambulatory Status Ambulatory Ambulatory Transportation Private Auto Private Auto Accompanied by Medication Reconcilliation completed & provided to patient/care provider Clinical Summary of Care Provided Wound debrided: Lateral heel Laterality: Left Wound Grade/Stage: Barker 3 Type of Debridement: Excisional debridement Anesthesia Used: 4% Lidocaine Solution Depth: in the subcutaneous layer Percentage of wound debrided: 100 Instrument Used: #15 blade, Forceps Tissue Removed: Tissue removed includes fibrous, devitalized, biofilm, and slough tissue Severity: Fat Layer Exposed - Probes to near bone Amount of bleeding with debridement: Mild Bleeding Controlled with: Pressure Patient tolerated procedure well - Additional Wound Wound debrided: Lateral forefoot Laterality: Left Wound Grade/Stage: Barker 1 Type of Debridement: Excisional debridement Anesthesia Used: 4% Lidocaine Solution Depth: in the subcutaneous layer Percentage of wound debrided: 100 Instrument Used: #15 blade, Forceps Tissue Removed: Tissue removed includes fibrous, devitalized, biofilm, and slough tissue Severity: Fat Layer Exposed Amount of bleeding with debridement: Mild Bleeding Controlled with: Pressure Patient tolerated procedure: Patient tolerated procedure well Assessment/Plan Clinical Impression(s) from Imaging Studies Lower Extremity MRI 10/20/20 16:24 IMPRESSION: 1. A large open wound is present in the lateral posterior and plantar aspect of the calcaneal process with associated mild cortical thinning and mild to moderate underlying edema due to active osteomyelitis. 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 Left foot lateral foot ulcer. Transmetatarsal amputation site stump fissures. Left foot cellulitis. History of left transmetatarsal amputation. Diabetes. peripheral vascular disease. Osteomyelitis Plan: Patient is referral from [facility]. Patient seen and examined. . Wounds are improving. Patient is continuing Augmentin prescribed 10/17/20. Cultures from 10/03/20 showing Corynebacterium amycolatum, Staphylococcus aureus, Klebsiella pneumoniae, E. coli. Patient's creatinine clearance was 57 on 08/08/2020. Iron 10/24/2020 new cultures were obtained which were shown to grow Pseudomonas aerginosum, E. coli, Enterobacter cloacae, porhyromonas. Ulcerations were sharply debrided today without incident after verbal consent obtained. Patient underwent vascular intervention on 08/15/[address] Jeff and again on 09/20/20. Patient has had previous surgical intervention with Dr. Jeff in the past as well. He had recent arterial studies on 06/13/20 showing monophasic waveforms and noncompressible bilateral PT and DP on the right with an left PAYAL of 0.78 on left. Discussed at length the importance of offloading with the patient in order to allow proper wound healing. Patient uses a walker. Patient states that he has an offloading shoe at home but is uncomfortable and twists when he tries to wear it while sleeping as he moves in his sleep. Patient does not wear it while sleeping. Discussed with patient the importance of his offloading suggested other alternative methods such as pillows or a doughnut offloading pad. Patient has no interest in this. Again the importance of offloading to allow ulcer to heal. Also discussed the importance of offloading when not sleeping such as in a chair with floating the heel with pillows. Patient also has a surgical shoe with cut out to offload the heel. He states he only wears this when he is out on the town and does not wear it at home. Discussed with patient the importance of proper nutrition and blood sugar control to also aid in wound healing. Patient and educated on proper dressing changes. We will continue Dakin's wet to dry until drainage is better controlled. Dressing changed. Foot is warmer compared to last visit and had healthy bleeding upon debridement. There is still surrounding erythema with decent drainage concerning for cellulitis. There is less fibrotic and necrotic tissue noted to the heel wound today. Concern for how close the lateral heel ulceration is to bone. This is been open at this level for several weeks at this point. Concern for possibility of infection having infected the bone. An MRI was ordered. Reviewed MRI from 10/20/2020 with the patient and . MRI demonstrated acute osteomyelitis to the left calcaneus. Discussed with the patient in depth the various treatment options including debridement of infected bone, course of antibiotics, below-knee amputation. Discussed with patient the risks and benefits of all the options. Patient would like to further explore the options of antibiotics and BKA. Patient saw Dr. Garnett who started him on multiple oral antibiotics. Patient is unsure of what they are. We will try to obtain office note. There is significant improvement wound noted since starting antibiotics. Patient would like to try to save the leg if at all possible. All questions answered. Patient is to follow-up in 1 week. This note was generated with [employer] dictation software. It may contain incorrect words, spelling, and punctuation that were not noted in checking the note before signing.
== END 2020-11-01 23:59 ==
LOC: WC 09:45
PROVIDERS: PCP Family Medicine; Referring Provider Podiatrist; Visit Provider Podiatrist Foot & Ankle Surgery
DX: L03.116 Cellulitis of left lower limb (principal); L97.522 Non-pressure chronic ulcer of other part of left foot with fat layer exposed; L97.422 Non-pressure chronic ulcer of left heel and midfoot with fat layer exposed
CPT/HCPCS: 11042; 11045; 73718; 87070; 87075; 87077; 87186; 87205; 97597

== ENCOUNTER 2020-11-28 11:00 | Outpatient (RCR) | payer MEDICARE, OTHER, SELFPAY ==
[2020-11-02 00:39] VITALS: BP 128/90; PULSE 81; RESP 16; TEMP 35.8; BMI 23.0
[2020-11-07 11:05] VITALS: BP 131/77; PULSE 92; RESP 16; TEMP 36.1; BMI 23.0
--- NOTE | 2020-11-07 11:45 | PCM.WC.PN ---
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 (3) Type 2 diabetes mellitus with foot ulcer Status: Chronic Code(s): E11.621 - Type 2 diabetes mellitus with foot ulcer; L97.509 - Non-pressure chronic ulcer of other part of unspecified foot with unspecified severity (4) Amputation at midfoot Status: Chronic Qualifiers: Code(s): S98.319A - Complete traumatic amputation of unspecified midfoot, initial encounter (5) Acute osteomyelitis of left calcaneus Status: Acute Code(s): M86.172 - Other acute osteomyelitis, left ankle and foot (6) Peripheral vascular occlusive disease Status: Chronic Code(s): I73.9 - Peripheral vascular disease, unspecified Comment: Left above and below the knee popliteal and tibioperoneal trunk atherectomy and angioplasty 06/28/14 Left below the knee popliteal atherectomy w/ angioplasty 12/29/13 Type of Wound Date of Service: 11/07/20 Chief Complaint: Left heel and lateral foot ulcerations. Cellulitis. osteomyelitis. Peripheral vascular disease History of Wound: Patient is a 75-year-old male who presents to the wound care center after being seen in office by Dr[facility] for chronic left foot wound. 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 He also has had left posterior heel ulceration. Patient had an angioplasty intervention with Dr. Jeff on 08/15/20. Patient had another intervention 09/20/20. Patient has a history of peripheral vascular disease and has had surgical intervention in the past. Patient has taken Augmentin for heel ulcer infection. Patient had previous cultures obtained in office which showed MSSA. Patient states that he has an offloading boot that he kicks his way out of and wakes him up at night. Patient has not found any other method of offloading to assist during sleeping. Patient has elevated the foot on pillows when sitting in chairs to offload the heel. Patient also has an offloading heel cut out surgical shoe she only wears when he is out of the house. When he is in the house patient states that he goes barefoot. Patient reports decrease in pain over the last week, especially since his angio. Patient and saw Dr. Jeff and showed him the regression of the wound with more necrotic tissue and ask if there is anything else he can do. Patient had further intervention 09/20/20. Since then the wound has become warm again. There is increased in fibrotic tissue and necrotic tissue noted. Patient had MRI obtained 10/20/2020 demonstrating A large open wound is present in the lateral posterior and plantar aspect of the calcaneal process with associated mild cortical thinning and mild to moderate underlying edema due to active osteomyelitis. Patient followed up with Dr. Garnett per he was started on oral antibiotics to manage the osteomyelitis. Patient is currently taking doxycycline, cefadroxil and Flagyl 42 days Progress of Wound: Left heel ulceration significant improvement noted. Left lateral foot ulcer stable Subjective: Patient seen and examined resting comfortably. Patient denies any new pedal complaints. Patient denies any nausea, fever, chills, chest pain, shortness of breath, cough, streaking, purulence, vomiting. Patient reports that he believes the wound is looking much better with decreased drainage. He reports no issues with the antibiotics - Physical Exam Vital Signs Temp Pulse Resp BP 96.9 F L 92 16 131/77 H 11/07/20 11:05 11/07/20 11:05 11/07/20 11:05 11/07/20 11:05 General: Alert, Oriented x3 HEENT: Atraumatic Extremities: No clubbing, No cyanosis, No edema, Capillary Refill Less than 3 Seconds, No Calf Tenderness, Diminished Peripheral Pulses Skin: Ulcer/ Wound - Left lateral foot and left lateral heel. No malodor, erythema, purulence, probing to bone, streaking, fluctuation, crepitus, or other signs of infection. Skin is atrophic and hairless. Granular base. Some fibrotic and fat tissue noted to heel ulcer improved, - - Less dry and peeling skin noted Wound Measurements and Assessment WC - Nurse 1 - General Ulcer Measurement Start: 11/07/20 11:05 Freq: Status: Active Protocol: Activity Type Activity Date Activity User E-Sign Co-Sign Detail Recorded Client Recorded Date Recorded By Document 11/07/20 11:05 [facility] [id number] 11/07/20 11:15 [facility] 11/07/20 11:05 Wound Center Nurse 1 [Ulcer Assessment] #2- L LATERAL FOOT -Current Size (cm) - Length 1.7 -Current Size (cm) - Width 0.7 -Current Size (cm) - Depth 0.2 -Total Square Cm 1.19 -Photo Taken No -Exudate Amt Small -Exudate Type Serosanguineous -Wound Margin Distinct, Outline Attached -Granulation Amt Medium (34-66%) -Granulation Quality [place] -Necrosis Amt Medium (34-66%) -Necrotic Tissue Type Adherent Slough -Structure Exposed N/A -Texture (Stacy-wound Skin Appearance) Scarring -Moisture (Stacy-wound Skin Appearance No Abnormality ) -Color (Stacy-wound Skin Appearance) No Abnormality, Rubor -Temperature (Stacy-wound Skin No Abnormality Appearance) (Pt Warm) -Tenderness on Palpation (Stacy-wound No Skin Appearance) -Ulcer Cleansing Rinsed/ Irrigated with Saline -Foul Odor after Cleansing No -Anesthetic Used 4% Lidocaine Solution #1- L LATERAL HEEL -Current Size (cm) - Length 5.2 -Current Size (cm) - Width 2.6 -Current Size (cm) - Depth 0.5 -Total Square Cm 13.52 -Photo Taken No -Exudate Amt Medium -Exudate Type Serosanguineous -Wound Margin Distinct, Outline Attached -Granulation Amt Medium (34-66%) -Necrosis Amt Medium (34-66%) -Necrotic Tissue Type Adherent Slough -Structure Exposed N/A -Texture (Stacy-wound Skin Appearance) Scarring -Moisture (Stacy-wound Skin Appearance No Abnormality ) -Color (Stacy-wound Skin Appearance) Rubor -Temperature (Stacy-wound Skin No Abnormality Appearance) (Pt Warm) -Tenderness on Palpation (Stacy-wound No Skin Appearance) -Ulcer Cleansing Rinsed/ Irrigated with Saline -Foul Odor after Cleansing No -Anesthetic Used 4% Lidocaine Solution WC - Nurse 2 - General Ulcer CM Notes Start: 11/07/20 11:05 Freq: Status: Active Protocol: Activity Type Activity Date Activity User E-Sign Co-Sign Detail Recorded Client Recorded Date Recorded By Document 11/07/20 11:23 [id number] 11/07/20 11:27 JF 11/07/20 11:23 Wound Center Nurse 2 [Procedure/Treatment] #2- L LATERAL FOOT -Time 11:23 -Correct Patient Yes -Correct Side, Site, Position Yes -Correct Procedure Yes -Procedure Performed Yes -Type of Procedure Debridement -Clinical Debridement Subcutaneous -Tissue Removed Subcutaneous -Post Debridement (cm) - Length 1.4 -Post Debridement (cm) - Width 0.8 -Post Debridement (cm) - Depth 0.1 -Total Square (Post) (cm) 1.12 -Area of Debridement (cm) - Length 1.4 -Area of Debridement (cm) - Width 0.8 -Total Square (Area) (cm) 1.12 -Tunneling No -Undermining/Tunneling No -Circular Undermining No -Wound/Ulcer Outcome Not Healed -Ulcer Cleansing Rinsed/ Irrigated with Saline -Foul Odor after Cleansing No -Bioengineered Tissue No -Bleeding Controlled with Pressure -Offloading Yes -Type of Offloading Surgical Shoe -Treatment Response Procedure Tolerated Well -Debridement - Subq, 1st 20sq cm Yes #1- L LATERAL HEEL -Time 11:24 -Correct Patient Yes -Correct Side, Site, Position Yes -Correct Procedure Yes -Procedure Performed Yes -Type of Procedure Debridement -Clinical Debridement Subcutaneous -Tissue Removed Subcutaneous -Post Debridement (cm) - Length 5.2 -Post Debridement (cm) - Width 3.0 -Post Debridement (cm) - Depth 0.3 -Total Square (Post) (cm) 15.60 -Area of Debridement (cm) - Length 5.2 -Area of Debridement (cm) - Width 3.0 -Total Square (Area) (cm) 15.60 -Tunneling No -Undermining/Tunneling No -Circular Undermining No -Wound/Ulcer Outcome Not Healed -Ulcer Cleansing Rinsed/ Irrigated with Saline -Foul Odor after Cleansing No -Bioengineered Tissue No -Bleeding Controlled with Pressure -Offloading Yes -Type of Offloading Surgical Shoe -Treatment Response Procedure Tolerated Well -Debridement - Subq, 1st 20sq cm No [See Physician Procedure note for Specifics] Pain Scale: 0-10 Numeric [Pain] -Is Patient Pain Free? Yes WC - Nurse 3 - General Ulcer D/C NN Start: 11/07/20 11:05 Freq: Status: Active Protocol: Activity Type Activity Date Activity User E-Sign Co-Sign Detail Recorded Client Recorded Date Recorded By Document 11/07/20 11:38 [facility] [id number] 11/07/20 11:39 [facility] 11/07/20 11:38 Wound Care Nurse 3 [Wound Dressing] #2- L LATERAL FOOT -Ulcer Cleansing Rinsed/ Irrigated with Saline -Foul Odor after Cleansing No -Primary Dressing Applied Other -Other Dressing hydrogel -Primary Dressing Covered/Secured Dry Gauze & with Roll Gauze, Secured with Tape #1- L LATERAL HEEL -Ulcer Cleansing Rinsed/ Irrigated with Saline -Foul Odor after Cleansing No -Primary Dressing Applied Other -Other Dressing dakins moistened gauze -Primary Dressing Covered/Secured Dry Gauze & with Roll Gauze, Secured with Tape,Other -Other Covering heel hat [Post Procedure Tolerated] -Treatment Response Procedure Tolerated Well Pain Scale: 0-10 Numeric [Pain] -Is Patient Pain Free? Yes WC - Visit Discharge [Visit Discharge Information] -Discharge Condition Stable -Ambulatory Status Ambulatory -Transportation Private Auto -Accompanied by Musculoskeletal: - - TMA left foot Neurological: - - Decrease in epicritic sensation Psych/Mental Status: Normal Affect, Appropriate Debridement Note Post-Debridement Measurements/Treatment WC - Nurse 2 - General Ulcer CM Notes Start: 11/07/20 11:05 Freq: Status: Active Protocol: Activity Type Activity Date Activity User E-Sign Co-Sign Detail Recorded Client Recorded Date Recorded By Document 11/07/20 11:23 [id number] 11/07/20 11:27 11/07/20 11:23 Wound Center Nurse 2 #2- L LATERAL FOOT -Time 11:23 -Correct Patient Yes -Correct Side, Site, Position Yes -Correct Procedure Yes -Procedure Performed Yes -Type of Procedure Debridement -Clinical Debridement Subcutaneous -Tissue Removed Subcutaneous -Post Debridement (cm) - Length 1.4 -Post Debridement (cm) - Width 0.8 -Post Debridement (cm) - Depth 0.1 -Total Square (Post) (cm) 1.12 -Area of Debridement (cm) - Length 1.4 -Area of Debridement (cm) - Width 0.8 -Total Square (Area) (cm) 1.12 -Tunneling No -Undermining/Tunneling No -Circular Undermining No -Wound/Ulcer Outcome Not Healed -Ulcer Cleansing Rinsed/ Irrigated with Saline -Foul Odor after Cleansing No -Bioengineered Tissue No -Bleeding Controlled with Pressure -Offloading Yes -Type of Offloading Surgical Shoe -Treatment Response Procedure Tolerated Well -Debridement - Subq, 1st 20sq cm Yes #1- L LATERAL HEEL -Time 11:24 -Correct Patient Yes -Correct Side, Site, Position Yes -Correct Procedure Yes -Procedure Performed Yes -Type of Procedure Debridement -Clinical Debridement Subcutaneous -Tissue Removed Subcutaneous -Post Debridement (cm) - Length 5.2 -Post Debridement (cm) - Width 3.0 -Post Debridement (cm) - Depth 0.3 -Total Square (Post) (cm) 15.60 -Area of Debridement (cm) - Length 5.2 -Area of Debridement (cm) - Width 3.0 -Total Square (Area) (cm) 15.60 -Tunneling No -Undermining/Tunneling No -Circular Undermining No -Wound/Ulcer Outcome Not Healed -Ulcer Cleansing Rinsed/ Irrigated with Saline -Foul Odor after Cleansing No -Bioengineered Tissue No -Bleeding Controlled with Pressure -Offloading Yes -Type of Offloading Surgical Shoe -Treatment Response Procedure Tolerated Well -Debridement - Subq, 1st 20sq cm No Pain Scale: 0-10 Numeric Is Patient Pain Free? Yes - Nurse 3 - General Ulcer D/C NN Start: 11/07/20 11:05 Freq: Status: Active Protocol: Activity Type Activity Date Activity User E-Sign Co-Sign Detail Recorded Client Recorded Date Recorded By Document 11/07/20 11:38 [facility] [id number] 11/07/20 11:39 [facility] 11/07/20 11:38 Wound Care Nurse 3 #2- L LATERAL FOOT -Ulcer Cleansing Rinsed/ Irrigated with Saline -Foul Odor after Cleansing No -Primary Dressing Applied Other -Other Dressing hydrogel -Primary Dressing Covered/Secured with Dry Gauze & Roll Gauze, Secured with Tape #1- L LATERAL HEEL -Ulcer Cleansing Rinsed/ Irrigated with Saline -Foul Odor after Cleansing No -Primary Dressing Applied Other -Other Dressing dakins moistened gauze -Primary Dressing Covered/Secured with Dry Gauze & Roll Gauze, Secured with Tape,Other -Other Covering heel hat Treatment Response Procedure Tolerated Well Pain Scale: 0-10 Numeric Is Patient Pain Free? Yes WC - Visit Discharge Discharge Condition Stable Ambulatory Status Ambulatory Transportation Private Auto Accompanied by Wound debrided: Lateral heel Laterality: Left Wound Grade/Stage: Barker 3 Type of Debridement: Excisional debridement Anesthesia Used: 4% Lidocaine Solution Depth: in the subcutaneous layer Percentage of wound debrided: 100 Instrument Used: 5mm curette Tissue Removed: Tissue removed includes fibrous, devitalized, biofilm, and slough tissue Severity: Fat Layer Exposed Amount of bleeding with debridement: Mild Bleeding Controlled with: Pressure Patient tolerated procedure well - Additional Wound Wound debrided: Lateral foot Laterality: Left Wound Grade/Stage: Barker 1 Type of Debridement: Excisional debridement Anesthesia Used: 4% Lidocaine Solution Depth: in the subcutaneous layer Percentage of wound debrided: 100 Instrument Used: 5mm curette Tissue Removed: Tissue removed includes fibrous, devitalized, biofilm, and slough tissue Severity: Fat Layer Exposed Amount of bleeding with debridement: Mild Bleeding Controlled with: Pressure Patient tolerated procedure: Patient tolerated procedure well Assessment/Plan Assessment: Left foot lateral heel ulcer. Left foot lateral foot ulcer. Transmetatarsal amputation site stump fissures. Left foot cellulitis. History of left transmetatarsal amputation. Diabetes. peripheral vascular disease. Osteomyelitis left calcaneus Plan: Patient seen and examined. . Wounds are improving with significant increase in granulation tissue to left lateral heel wound and decrease signs of infection. Patient is continuing Augmentin prescribed 10/17/20. Cultures from 10/03/20 showing Corynebacterium amycolatum, Staphylococcus aureus, Klebsiella pneumoniae, E. coli. Patient's creatinine clearance was 57 on 08/08/2020. Iron 10/24/2020 new cultures were obtained which were shown to grow Pseudomonas aerginosum, E. coli, Enterobacter cloacae, porhyromonas. Ulcerations were sharply debrided today without incident after verbal consent obtained. Patient underwent vascular intervention on 08/15/[address] Jeff and again on 09/20/20. Patient has had previous surgical intervention with Dr. Jeff in the past as well. He had recent arterial studies on 06/13/20 showing monophasic waveforms and noncompressible bilateral PT and DP on the right with an left PAYAL of 0.78 on left. Discussed at length the importance of offloading with the patient in order to allow proper wound healing. Patient uses a walker. Patient states that he has an offloading shoe at home but is uncomfortable and twists when he tries to wear it while sleeping as he moves in his sleep. Patient does not wear it while sleeping. Discussed with patient the importance of his offloading suggested other alternative methods such as pillows or a doughnut offloading pad. Patient has no interest in this. Again the importance of offloading to allow ulcer to heal. Also discussed the importance of offloading when not sleeping such as in a chair with floating the heel with pillows. Patient also has a surgical shoe with cut out to offload the heel. Patient relates more comfort noted when wearing tennis shoes. He has been wearing those instead. Discussed with patient the importance of proper nutrition and blood sugar control to also aid in wound healing. Patient and educated on proper dressing changes. We will continue Dakin's wet to dry on heel and hydrogel to foot. Dressing changed. Reviewed MRI from 10/20/2020 demonstrated acute osteomyelitis to the left calcaneus. Patient wishes to treat with antibiotics. Patient saw Dr. Garnett who started him on multiple oral antibiotics including Flagyl, doxycycline, Cefadrxil for 42 days. There is significant improvement to wound noted since starting antibiotics. Patient would like to try to save the leg if at all possible. Will apply for TheraSkin at this time. With possible application next week pending continued improvement noted to wound. All questions answered. Patient is to follow-up in 1 week. This note was generated with [employer] dictation software. It may contain incorrect words, spelling, and punctuation that were not noted in checking the note before signing.
[2020-11-14 11:04] VITALS: BP 145/65; PULSE 94; RESP 20; TEMP 37.1; BMI 23.0
--- NOTE | 2020-11-14 12:27 | PCM.WC.PN ---
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 (3) Type 2 diabetes mellitus with foot ulcer Status: Chronic Code(s): E11.621 - Type 2 diabetes mellitus with foot ulcer; L97.509 - Non-pressure chronic ulcer of other part of unspecified foot with unspecified severity (4) Amputation at midfoot Status: Chronic Qualifiers: Code(s): S98.319A - Complete traumatic amputation of unspecified midfoot, initial encounter (5) Acute osteomyelitis of left calcaneus Status: Acute Code(s): M86.172 - Other acute osteomyelitis, left ankle and foot (6) Peripheral vascular occlusive disease Status: Chronic Code(s): I73.9 - Peripheral vascular disease, unspecified Comment: Left above and below the knee popliteal and tibioperoneal trunk atherectomy and angioplasty 06/28/14 Left below the knee popliteal atherectomy w/ angioplasty 12/29/13 Type of Wound Date of Service: 11/14/20 Chief Complaint: Left heel and lateral foot ulcerations. Cellulitis. osteomyelitis. Peripheral vascular disease History of Wound: Patient is a 75-year-old male who presents to the wound care center after being seen in office by Dr. Pelaez [facility] for chronic left foot wound. 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 He also has had left posterior heel ulceration. Patient had an angioplasty intervention with Dr. Jeff on 08/15/20. Patient had another intervention 09/20/20. Patient has a history of peripheral vascular disease and has had surgical intervention in the past. Patient has taken Augmentin for heel ulcer infection. Patient had previous cultures obtained in office which showed MSSA. Patient states that he has an offloading boot that he kicks his way out of and wakes him up at night. Patient has not found any other method of offloading to assist during sleeping. Patient has elevated the foot on pillows when sitting in chairs to offload the heel. Patient also has an offloading heel cut out surgical shoe she only wears when he is out of the house. When he is in the house patient states that he goes barefoot. Patient reports decrease in pain over the last week, especially since his angio. Patient and saw Dr. Jeff and showed him the regression of the wound with more necrotic tissue and ask if there is anything else he can do. Patient had further intervention 09/20/20. Since then the wound has become warm again. There is increased in fibrotic tissue and necrotic tissue noted. Patient had MRI obtained 10/20/2020 demonstrating A large open wound is present in the lateral posterior and plantar aspect of the calcaneal process with associated mild cortical thinning and mild to moderate underlying edema due to active osteomyelitis. Patient followed up with Dr. Garnett per he was started on oral antibiotics to manage the osteomyelitis. Patient is currently taking doxycycline, cefadroxil and Flagyl 42 days Progress of Wound: Left heel ulceration significant improvement noted. Left lateral foot ulcer improved Subjective: Patient seen and examined resting comfortably. Patient denies any new pedal complaints. Patient denies any nausea, fever, chills, chest pain, shortness of breath, cough, streaking, purulence, vomiting. Patient relates decrease in pain of his left foot as well as overall improvement noted to wound. He states he has brought out of one of his antibiotics - Physical Exam Vital Signs Temp Pulse Resp BP 98.8 F 94 20 H 145/65 H 11/14/20 11:04 11/14/20 11:04 11/14/20 11:04 11/14/20 11:04 General: Alert, Oriented x3 HEENT: Atraumatic Extremities: No clubbing, No cyanosis, No edema, Capillary Refill Less than 3 Seconds, No Calf Tenderness, Diminished Peripheral Pulses Skin: Ulcer/ Wound - Left lateral heel and lateral foot. No malodor, erythema, purulence, probing to bone, streaking, fluctuation, crepitus, or other signs of infection. Skin is atrophic and hairless. Granular base. Surrounding erythema to heel resolved Wound Measurements and Assessment WC - Nurse 1 - General Ulcer Measurement Start: 11/07/20 11:05 Freq: Status: Active Protocol: Activity Type Activity Date Activity User E-Sign Co-Sign Detail Recorded Client Recorded Date Recorded By Document 11/14/20 11:04 DL [id number] 11/14/20 11:13 DL 11/14/20 11:04 Wound Center Nurse 1 [Ulcer Assessment] #2- L LATERAL FOOT -Current Size (cm) - Length 1 -Current Size (cm) - Width 0.8 -Current Size (cm) - Depth 0.1 -Total Square Cm 0.8 -Photo Taken No -Exudate Amt Small -Exudate Type Serosanguineous -Wound Margin Distinct, Outline Attached -Granulation Amt Medium (34-66%) -Granulation Quality Brush -Necrosis Amt Medium (34-66%) -Necrotic Tissue Type Adherent Slough -Structure Exposed N/A -Texture (Stacy-wound Skin Appearance) Scarring -Moisture (Stacy-wound Skin Appearance No Abnormality ) -Color (Stacy-wound Skin Appearance) No Abnormality -Temperature (Stacy-wound Skin No Abnormality Appearance) (Pt Warm) -Tenderness on Palpation (Stacy-wound No Skin Appearance) -Ulcer Cleansing Rinsed/ Irrigated with Saline -Foul Odor after Cleansing No -Anesthetic Used 4% Lidocaine Solution #1- L LATERAL HEEL -Current Size (cm) - Length 4.8 -Current Size (cm) - Width 2.2 -Current Size (cm) - Depth 0.5 -Total Square Cm 10.56 -Photo Taken No -Exudate Amt Medium -Exudate Type Serosanguineous -Wound Margin Distinct, Outline Attached -Granulation Amt Medium (34-66%) -Granulation Quality Red -Necrosis Amt Medium (34-66%) -Necrotic Tissue Type Adherent Slough -Structure Exposed N/A -Texture (Stacy-wound Skin Appearance) Scarring -Moisture (Stacy-wound Skin Appearance No Abnormality ) -Color (Stacy-wound Skin Appearance) No Abnormality -Temperature (Stacy-wound Skin No Abnormality Appearance) (Pt Warm) -Tenderness on Palpation (Stacy-wound No Skin Appearance) -Ulcer Cleansing Wound Cleanser -Foul Odor after Cleansing No -Anesthetic Used 4% Lidocaine Solution WC - Nurse 2 - General Ulcer CM Notes Start: 11/07/20 11:05 Freq: Status: Active Protocol: Activity Type Activity Date Activity User E-Sign Co-Sign Detail Recorded Client Recorded Date Recorded By Document 11/14/20 11:21 JF [id number] 11/14/20 11:37 OPAL 11/14/20 11:21 Wound Center Nurse 2 [Procedure/Treatment] #2- L LATERAL FOOT -Time 11:34 -Correct Patient Yes -Correct Side, Site, Position Yes -Correct Procedure Yes -Procedure Performed Yes -Type of Procedure Debridement -Clinical Debridement Subcutaneous -Tissue Removed Subcutaneous -Post Debridement (cm) - Length 0.9 -Post Debridement (cm) - Width 0.8 -Post Debridement (cm) - Depth 0.1 -Total Square (Post) (cm) 0.72 -Area of Debridement (cm) - Length 0.9 -Area of Debridement (cm) - Width 0.8 -Total Square (Area) (cm) 0.72 -Tunneling No -Undermining/Tunneling No -Circular Undermining No -Wound/Ulcer Outcome Not Healed -Ulcer Cleansing Rinsed/ Irrigated with Saline -Foul Odor after Cleansing No -Bioengineered Tissue Yes -Type of Bioengineered Tissue Theraskin -Expiration Date 07/17/24 -Product Lot Number [id number] -Percent Used 100 -Lot number of Saline Used [id number] -Bleeding Controlled with Pressure -Offloading Yes -Type of Offloading Surgical Shoe -Treatment Response Procedure Tolerated Well -Debridement - Subq, 1st 20sq cm Yes -Apply Skin Sub - 1st 25 sq cm - Feet 0 -Theraskin (per sq cm) 0 #1- L LATERAL HEEL -Time 11:36 -Correct Patient Yes -Correct Side, Site, Position Yes -Correct Procedure Yes -Procedure Performed Yes -Type of Procedure Debridement -Clinical Debridement Subcutaneous -Tissue Removed Subcutaneous -Post Debridement (cm) - Length 5 -Post Debridement (cm) - Width 2 -Post Debridement (cm) - Depth 0.5 -Total Square (Post) (cm) 10 -Area of Debridement (cm) - Length 5 -Area of Debridement (cm) - Width 2 -Total Square (Area) (cm) 10 -Tunneling No -Undermining/Tunneling No -Circular Undermining No -Wound/Ulcer Outcome Not Healed -Ulcer Cleansing Rinsed/ Irrigated with Saline -Foul Odor after Cleansing No -Bioengineered Tissue Yes -Type of Bioengineered Tissue Theraskin -Expiration Date 07/17/24 -Product Lot Number [id number] -Percent Used 100 -Lot number of Saline Used [id number] -Bleeding Controlled with Pressure -Offloading Yes -Type of Offloading Surgical Shoe -Treatment Response Procedure Tolerated Well -Debridement - Subq, 1st 20sq cm No -Apply Skin Sub - 1st 25 sq cm - Feet 1 -Theraskin (per sq cm) 26 [See Physician Procedure note for Specifics] Pain Scale: 0-10 Numeric [Pain] -Is Patient Pain Free? Yes - Nurse 3 - General Ulcer D/C NN Start: 11/07/20 11:05 Freq: Status: Active Protocol: Activity Type Activity Date Activity User E-Sign Co-Sign Detail Recorded Client Recorded Date Recorded By Document 11/14/20 11:51 [facility] [id number] 11/14/20 11:52 [facility] 11/14/20 11:51 Wound Care Nurse 3 [Wound Dressing] #2- L LATERAL FOOT -Other Dressing [place] -Primary Dressing Covered/Secured Dry Gauze & with Roll Gauze, Secured with Tape #1- L LATERAL HEEL -Primary Dressing Applied Other -Other Dressing [place] -Primary Dressing Covered/Secured Dry Gauze & with Roll Gauze, Secured with Tape [Post Procedure Tolerated] -Treatment Response Procedure Tolerated Well Pain Scale: 0-10 Numeric [Pain] -Is Patient Pain Free? Yes - Visit Discharge [Visit Discharge Information] -Discharge Condition Stable -Ambulatory Status Ambulatory -Transportation Private Auto -Accompanied by Musculoskeletal: Tenderness - 2 ulceration sites, - - TMA left foot Neurological: - - Decreased epicritic sensation Psych/Mental Status: Normal Affect, Appropriate Debridement Note Post-Debridement Measurements/Treatment - Nurse 2 - General Ulcer CM Notes Start: 11/07/20 11:05 Freq: Status: Active Protocol: Activity Type Activity Date Activity User E-Sign Co-Sign Detail Recorded Client Recorded Date Recorded By Document 11/07/20 11:23 [id number] 11/07/20 11:27 Document 11/14/20 11:21 [id number] 11/14/20 11:37 11/07/20 11/14/20 11:23 11:21 Wound Center Nurse 2 #2- L LATERAL FOOT -Time 11:23 11:34 -Correct Patient Yes Yes -Correct Side, Site, Position Yes Yes -Correct Procedure Yes Yes -Procedure Performed Yes Yes -Type of Procedure Debridement Debridement -Clinical Debridement Subcutaneous Subcutaneous -Tissue Removed Subcutaneous Subcutaneous -Post Debridement (cm) - Length 1.4 0.9 -Post Debridement (cm) - Width 0.8 0.8 -Post Debridement (cm) - Depth 0.1 0.1 -Total Square (Post) (cm) 1.12 0.72 -Area of Debridement (cm) - Length 1.4 0.9 -Area of Debridement (cm) - Width 0.8 0.8 -Total Square (Area) (cm) 1.12 0.72 -Tunneling No No -Undermining/Tunneling No No -Circular Undermining No No -Wound/Ulcer Outcome Not Healed Not Healed -Ulcer Cleansing Rinsed/ Rinsed/ Irrigated with Irrigated with Saline Saline -Foul Odor after Cleansing No No -Bioengineered Tissue No Yes -Type of Bioengineered Tissue Theraskin -Expiration Date 07/17/24 -Product Lot Number [id number] -Percent Used 100 -Lot number of Saline Used [id number] -Bleeding Controlled with Pressure Pressure -Offloading Yes Yes -Type of Offloading Surgical Shoe Surgical Shoe -Treatment Response Procedure Procedure Tolerated Well Tolerated Well -Debridement - Subq, 1st 20sq cm Yes Yes -Apply Skin Sub - 1st 25 sq cm - Feet 0 -Theraskin (per sq cm) 0 #1- L LATERAL HEEL -Time 11:24 11:36 -Correct Patient Yes Yes -Correct Side, Site, Position Yes Yes -Correct Procedure Yes Yes -Procedure Performed Yes Yes -Type of Procedure Debridement Debridement -Clinical Debridement Subcutaneous Subcutaneous -Tissue Removed Subcutaneous Subcutaneous -Post Debridement (cm) - Length 5.2 5 -Post Debridement (cm) - Width 3.0 2 -Post Debridement (cm) - Depth 0.3 0.5 -Total Square (Post) (cm) 15.60 10 -Area of Debridement (cm) - Length 5.2 5 -Area of Debridement (cm) - Width 3.0 2 -Total Square (Area) (cm) 15.60 10 -Tunneling No No -Undermining/Tunneling No No -Circular Undermining No No -Wound/Ulcer Outcome Not Healed Not Healed -Ulcer Cleansing Rinsed/ Rinsed/ Irrigated with Irrigated with Saline Saline -Foul Odor after Cleansing No No -Bioengineered Tissue No Yes -Type of Bioengineered Tissue Theraskin -Expiration Date 07/17/24 -Product Lot Number [id number] -Percent Used 100 -Lot number of Saline Used [id number] -Bleeding Controlled with Pressure Pressure -Offloading Yes Yes -Type of Offloading Surgical Shoe Surgical Shoe -Treatment Response Procedure Procedure Tolerated Well Tolerated Well -Debridement - Subq, 1st 20sq cm No No -Apply Skin Sub - 1st 25 sq cm - Feet 1 -Theraskin (per sq cm) 26 Pain Scale: 0-10 Numeric Is Patient Pain Free? Yes Yes - Nurse 3 - General Ulcer D/C NN Start: 11/07/20 11:05 Freq: Status: Active Protocol: Activity Type Activity Date Activity User E-Sign Co-Sign Detail Recorded Client Recorded Date Recorded By Document 11/07/20 11:38 [facility] [id number] 11/07/20 11:39 [facility] Document 11/14/20 11:51 [facility] [id number] 11/14/20 11:52 [facility] 11/07/20 11/14/20 11:38 11:51 Wound Care Nurse 3 #2- L LATERAL FOOT -Ulcer Cleansing Rinsed/ Irrigated with Saline -Foul Odor after Cleansing No -Primary Dressing Applied Other -Other Dressing hydrogel [place] -Primary Dressing Covered/Secured with Dry Gauze & Dry Gauze & Roll Gauze, Roll Gauze, Secured with Secured with Tape Tape #1- L LATERAL HEEL -Ulcer Cleansing Rinsed/ Irrigated with Saline -Foul Odor after Cleansing No -Primary Dressing Applied Other Other -Other Dressing dakins [place] moistened gauze -Primary Dressing Covered/Secured with Dry Gauze & Dry Gauze & Roll Gauze, Roll Gauze, Secured with Secured with Tape,Other Tape -Other Covering heel hat Treatment Response Procedure Procedure Tolerated Well Tolerated Well Pain Scale: 0-10 Numeric Is Patient Pain Free? Yes Yes - Visit Discharge Discharge Condition Stable Stable Ambulatory Status Ambulatory Ambulatory Transportation Private Auto Private Auto Accompanied by Wound debrided: Lateral foot Laterality: Left Wound Grade/Stage: Barker 1 Type of Debridement: Excisional debridement Anesthesia Used: 4% Lidocaine Solution Depth: in the subcutaneous layer Percentage of wound debrided: 100 Instrument Used: 5mm curette Tissue Removed: Tissue removed includes fibrous, devitalized, biofilm, and slough tissue Severity: Fat Layer Exposed Amount of bleeding with debridement: Mild Bleeding Controlled with: Pressure Patient tolerated procedure well - Additional Wound Wound debrided: Lateral heel Laterality: Left Wound Grade/Stage: Barker 3 Type of Debridement: Excisional debridement Anesthesia Used: 4% Lidocaine Solution Depth: in the subcutaneous layer Percentage of wound debrided: 100 Instrument Used: 5mm curette Tissue Removed: Tissue removed includes fibrous, devitalized, biofilm, and slough tissue Severity: Fat Layer Exposed Amount of bleeding with debridement: Moderate Bleeding Controlled with: Pressure Patient tolerated procedure: Patient tolerated procedure well Assessment/Plan Active Problems (Last Updated 03/15/20 @ 19:22 by Luz Maria Mcnally) Type 2 diabetes mellitus with foot ulcer (Chronic) Non-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 (Chronic) Non-pressure chronic ulcer of other part of left foot with fat layer exposed (Chronic) Amputation at midfoot (Chronic) Acute osteomyelitis of left calcaneus (Acute) Peripheral vascular occlusive disease (Chronic) Left above and below the knee popliteal and tibioperoneal trunk atherectomy and angioplasty 06/28/14 Left below the knee popliteal atherectomy w/ angioplasty 12/29/13 Assessment: Left foot lateral heel ulcer. Left foot lateral foot ulcer. Transmetatarsal amputation site stump fissures-resolved. Left foot cellulitis-resolved. History of left transmetatarsal amputation. Diabetes. peripheral vascular disease. Osteomyelitis left calcaneus Plan: Patient seen and examined. . Wounds are improving with significant increase in granulation tissue to left lateral heel wound and absent signs of infection. Cultures from 10/03/20 showing Corynebacterium amycolatum, Staphylococcus aureus, Klebsiella pneumoniae, E. coli. Patient's creatinine clearance was 57 on 08/08/2020. On 10/24/2020 new cultures were obtained which were shown to grow Pseudomonas aerginosum, E. coli, Enterobacter cloacae, porhyromonas. Ulcerations were sharply debrided today without incident after verbal consent obtained. Patient underwent vascular intervention on 08/15/[address] Jeff and again on 09/20/20. Patient has had previous surgical intervention with Dr. Jeff in the past as well. He had recent arterial studies on 06/13/20 showing monophasic waveforms and noncompressible bilateral PT and DP on the right with an left PAYAL of 0.78 on left. Discussed at length the importance of offloading with the patient in order to allow proper wound healing. Patient uses a walker. Patient states that he has an offloading shoe at home but is uncomfortable and twists when he tries to wear it while sleeping as he moves in his sleep. Patient does not wear it while sleeping. Discussed with patient the importance of his offloading suggested other alternative methods such as pillows or a doughnut offloading pad. Patient has no interest in this. Again the importance of offloading to allow ulcer to heal. Also discussed the importance of offloading when not sleeping such as in a chair with floating the heel with pillows. Patient also has a surgical shoe with cut out to offload the heel. Patient relates more comfort noted when wearing tennis shoes. He has been wearing those instead. Discussed with patient the importance of proper nutrition and blood sugar control to also aid in wound healing. Patient and educated on proper dressing changes. Patient approved for TheraSkin graft application to the left heel and hydrogel to foot. Reviewed MRI from 10/20/2020 demonstrated acute osteomyelitis to the left calcaneus. Patient wishes to treat with antibiotics. Patient saw Dr. Garnett who started him on multiple oral antibiotics including Flagyl, doxycycline, Cefadrxil for 42 days. Patient relates that he is out of one of his antibiotics. Patient has follow-up appoint with Dr. Garnett tomorrow. Discussed that patient should tell Dr. Garnett that he is aware of the antibiotics to make sure that he does not need further coverage over this antibiotics. Patient is unsure which antibiotic he is out of. I recommend application of advanced wound healing product to the indicated ulceration. Prior authorization was confirmed. The indications, benefits, anticipated application and healing time management were reviewed in detail. Verbal consent was obtained in the procedure for today. Site was debrided and graft was applied according to standard protocol and was further secured with a nonadherent dressing and Steri-Strips. Discussed with patient and proper wound care and not to go underneath the Steri-Strips for daily dressing changes. All questions answered. Patient is to follow-up in 1 week. This note was generated with [employer] dictation software. It may contain incorrect words, spelling, and punctuation that were not noted in checking the note before signing.
[2020-11-21 11:13] VITALS: BP 103/60; PULSE 85; RESP 16; TEMP 36.3; BMI 23.0
--- NOTE | 2020-11-21 11:18 | WC ---
SILVIO LEFT INTACT
--- NOTE | 2020-11-21 12:34 | PN.PCM_ITS ---
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 (3) Type 2 diabetes mellitus with foot ulcer Status: Chronic Code(s): E11.621 - Type 2 diabetes mellitus with foot ulcer; L97.509 - Non-pressure chronic ulcer of other part of unspecified foot with unsp ecified severity (4) Amputation at midfoot Status: Chronic Qualifiers: Code(s): S98.319A - Complete traumatic amputation of unspecified midfoot, initial encounter (5) Acute osteomyelitis of left calcaneus Status: Acute Code(s): M86.172 - Other acute osteomyelitis, left ankle and foot (6) Peripheral vascular occlusive disease Status: Chronic Code(s): I73.9 - Peripheral vascular disease, unspecified Comment: Left above and below the knee popliteal and tibioperoneal trunk atherectomy and angioplasty 06/28/14 Left below the knee popliteal atherectomy w/ angioplasty 12/29/13 Type of Wound Date of Service: 11/21/20 Chief Complaint: Left heel and lateral foot ulcerations. osteomyelitis. Stacy pheral vascular disease History of Wound: Patient is a 75-year-old male who presents to the wound care center after being seen in office by Dr. Pelaez [facility] for chronic left foot wound. 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 He also has had left posterior heel ulceration. Patient had an angioplasty intervention with Dr. Jeff on 08/15/20. Patient had another intervention 09/20/20. Patient has a history of peripheral vascular disease and has had surgical intervention in the past. Patient has taken Augmentin for heel ulcer infection. Patient had previous cultures obtained in office which showed MSSA. Patient states that he has an offloading boot that he kicks his way out of and wakes him up at night. Patient has not found any other method of offloading to assist during sleeping. Patient has elevated the foot on pillows when sitting in chairs to offload the heel. Patient also has an offloading heel cut out surgical shoe she only wears when he is out of the house. When he is in the house patient states that he goes barefoot. Patient and saw Dr. Jeff and showed him the regression of the wound with more necrotic tissue and ask if there is anything else he can do. Patient had further intervention 09/20/20. Since then the wound has become warm again. There is increased in fibrotic tissue and necrotic tissue noted. Patient had MRI obtained 10/20/2020 demonstrating A large open wound is present in the lateral posterior and plantar aspect of the calcaneal process with associated mild cortical thinning and mild to moderate underlying edema due to active osteomyelitis. Patient followed up with Dr. Garnett per he was started on oral antibiotics to manage the osteomyelitis. Patient is currently taking doxycycline, cefadroxil and Flagyl 42 days. Patient relates that his insurance would not cover 42 days of one of the antibiotics and Dr. Bennett switched him to a different antibiotic but he is unsure which one at this time Progress of Wound: Left heel ulceration stable under wound veil with grafting. Left lateral foot ulcer stable Subjective: Patient seen and examined resting comfortably. Patient denies any new pedal complaints. Patient denies any nausea, fever, chills, chest pain, shortness of breath, cough, streaking, purulence, vomiting. - Physical Exam Vital Signs Temp Pulse Resp BP 97.3 F L 85 16 103/60 11/21/20 11:13 11/21/20 11:13 11/21/20 11:13 11/21/20 11:13 General: Alert, Oriented x3 HEENT: Atraumatic Extremities: No clubbing, No cyanosis, No edema, Capillary Refill Less than 3 Seconds, No Calf Tenderness, Diminished Peripheral Pulses Skin: Ulcer/ Wound - Left lateral foot and heel ulcerations with noted intact Steri-Strips and wound veil. No signs of infection noted Wound Measurements and Assessment WC - Nurse 1 - General Ulcer Measurement Start: 11/07/20 11:05 Freq: Status: Active Protocol: Activity Type Activity Date Activity User E-Sign Co-Sign Detail Recorded Client Recorded Date Recorded By Document 11/21/20 11:13 [facility] [id number] 11/21/20 11:18 [facility] 11/21/20 11:13 Wound Center Nurse 1 [Ulcer Assessment] #2- L LATERAL FOOT -Combined with other wound No -Current Size (cm) - Length 0.1 -Current Size (cm) - Width 0.1 -Current Size (cm) - Depth 0.1 -Total Square Cm 0.01 #1- L LATERAL HEEL -Combined with other wound No -Current Size (cm) - Length 0.1 -Current Size (cm) - Width 0.1 -Current Size (cm) - Depth 0.1 -Total Square Cm 0.01 - Nurse 2 - General Ulcer CM Notes Start: 11/07/20 11:05 Freq: Status: Active Protocol: Activity Type Activity Date Activity User E-Sign Co-Sign Detail Recorded Client Recorded Date Recorded By Document 11/21/20 11:28 [facility] [id number] 11/21/20 11:30 11/21/20 11:28 Wound Center Nurse 2 [Procedure/Treatment] #2- L LATERAL FOOT -Correct Patient No -Correct Side, Site, Position No -Correct Procedure No -Procedure Performed No -Wound/Ulcer Outcome Not Healed #1- L LATERAL HEEL -Correct Patient No -Correct Side, Site, Position No -Correct Procedure No -Procedure Performed No -Wound/Ulcer Outcome Not Healed [See Physician Procedure note for Specifics] Pain Scale: 0-10 Numeric [Pain] -Is Patient Pain Free? Yes - Nurse 3 - General Ulcer D/C NN Start: 11/07/20 11:05 Freq: Status: Active Protocol: Activity Type Activity Date Activity User E-Sign Co-Sign Detail Recorded Client Recorded Date Recorded By Document 11/21/20 11:43 DL [id number] 11/21/20 11:44 DL 11/21/20 11:43 Wound Care Nurse 3 [Wound Dressing] #2- L LATERAL FOOT -Foul Odor after Cleansing No -Other Dressing Theraskin -Primary Dressing Covered/Secured Dry Gauze & with Roll Gauze, Secured with Tape #1- L LATERAL HEEL -Foul Odor after Cleansing No -Other Dressing therakin -Primary Dressing Covered/Secured Dry Gauze & with Roll Gauze, Secured with Tape [Post Procedure Tolerated] -Treatment Response Procedure Tolerated Well Pain Scale: 0-10 Numeric [Pain] -Is Patient Pain Free? Yes - Visit Discharge [Visit Discharge Information] -Discharge Condition Stable -Ambulatory Status Ambulatory -Transportation Private Auto Musculoskeletal: Tenderness - To palpation of heel ulcerations, - - Left TMA Neurological: - - Decreased epicritic sensation noted Psych/Mental Status: Normal Affect, Appropriate Debridement Note Post-Debridement Measurements/Treatment WC - Nurse 2 - General Ulcer CM Notes Start: 11/07/20 11:05 Freq: Status: Active Protocol: Activity Type Activity Date Activity User E-Sign Co-Sign Detail Recorded Client Recorded Date Recorded By Document 11/07/20 11:23 [id number] 11/07/20 11:27 Document 11/14/20 11:21 [id number] 11/14/20 11:37 Document 11/21/20 11:28 [id number] 11/21/20 11:30 11/07/20 11/14/20 11/21/20 11:23 11:21 11:28 Wound Center Nurse 2 #2- L LATERAL FOOT -Time 11:23 11:34 -Correct Patient Yes Yes No -Correct Side, Site, Position Yes Yes No -Correct Procedure Yes Yes No -Procedure Performed Yes Yes No -Type of Procedure Debridement Debridement -Clinical Debridement Subcutaneous Subcutaneous -Tissue Removed Subcutaneous Subcutaneous -Post Debridement (cm) - Length 1.4 0.9 -Post Debridement (cm) - Width 0.8 0.8 -Post Debridement (cm) - Depth 0.1 0.1 -Total Square (Post) (cm) 1.12 0.72 -Area of Debridement (cm) - Length 1.4 0.9 -Area of Debridement (cm) - Width 0.8 0.8 -Total Square (Area) (cm) 1.12 0.72 -Tunneling No No -Undermining/Tunneling No No -Circular Undermining No No -Wound/Ulcer Outcome Not Healed Not Healed Not Healed -Ulcer Cleansing Rinsed/ Rinsed/ Irrigated with Irrigated with Saline Saline -Foul Odor after Cleansing No No -Bioengineered Tissue No Yes -Type of Bioengineered Tissue Theraskin -Expiration Date 07/17/24 -Product Lot Number [id number] -Percent Used 100 -Lot number of Saline Used [id number] -Bleeding Controlled with Pressure Pressure -Offloading Yes Yes -Type of Offloading Surgical Shoe Surgical Shoe -Treatment Response Procedure Procedure Tolerated Well Tolerated Well -Debridement - Subq, 1st 20sq cm Yes Yes -Apply Skin Sub - 1st 25 sq cm - Feet 0 -Theraskin (per sq cm) 0 #1- L LATERAL HEEL -Time 11:24 11:36 -Correct Patient Yes Yes No -Correct Side, Site, Position Yes Yes No -Correct Procedure Yes Yes No -Procedure Performed Yes Yes No -Type of Procedure Debridement Debridement -Clinical Debridement Subcutaneous Subcutaneous -Tissue Removed Subcutaneous Subcutaneous -Post Debridement (cm) - Length 5.2 5 -Post Debridement (cm) - Width 3.0 2 -Post Debridement (cm) - Depth 0.3 0.5 -Total Square (Post) (cm) 15.60 10 -Area of Debridement (cm) - Length 5.2 5 -Area of Debridement (cm) - Width 3.0 2 -Total Square (Area) (cm) 15.60 10 -Tunneling No No -Undermining/Tunneling No No -Circular Undermining No No -Wound/Ulcer Outcome Not Healed Not Healed Not Healed -Ulcer Cleansing Rinsed/ Rinsed/ Irrigated with Irrigated with Saline Saline -Foul Odor after Cleansing No No -Bioengineered Tissue No Yes -Type of Bioengineered Tissue Theraskin -Expiration Date 07/17/24 -Product Lot Number [id number] -Percent Used 100 -Lot number of Saline Used [id number] -Bleeding Controlled with Pressure Pressure -Offloading Yes Yes -Type of Offloading Surgical Shoe Surgical Shoe -Treatment Response Procedure Procedure Tolerated Well Tolerated Well -Debridement - Subq, 1st 20sq cm No No -Apply Skin Sub - 1st 25 sq cm - Feet 1 -Theraskin (per sq cm) 26 Pain Scale: 0-10 Numeric Is Patient Pain Free? Yes Yes Yes - Nurse 3 - General Ulcer D/C NN Start: 11/07/20 11:05 Freq: Status: Active Protocol: Activity Type Activity Date Activity User E-Sign Co-Sign Detail Recorded Client Recorded Date Recorded By Document 11/07/20 11:38 [facility] [id number] 11/07/20 11:39 BM Document 11/14/20 11:51 BMF [id number] 11/14/20 11:52 BM Document 11/21/20 11:43 DL [id number] 11/21/20 11:44 DL 11/07/20 11/14/20 11/21/20 11:38 11:51 11:43 Wound Care Nurse 3 #2- L LATERAL FOOT -Ulcer Cleansing Rinsed/ Irrigated with Saline -Foul Odor after Cleansing No No -Primary Dressing Applied Other -Other Dressing hydrogel THERASKIN Theraskin -Primary Dressing Covered/Secured with Dry Gauze & Dry Gauze & Dry Gauze & Roll Gauze, Roll Gauze, Roll Gauze, Secured with Secured with Secured with Tape Tape Tape #1- L LATERAL HEEL -Ulcer Cleansing Rinsed/ Irrigated with Saline -Foul Odor after Cleansing No No -Primary Dressing Applied Other Other -Other Dressing dakins THERASKIN therakin moistened gauze -Primary Dressing Covered/Secured with Dry Gauze & Dry Gauze & Dry Gauze & Roll Gauze, Roll Gauze, Roll Gauze, Secured with Secured with Secured with Tape,Other Tape Tape -Other Covering heel hat Treatment Response Procedure Procedure Procedure Tolerated Well Tolerated Well Tolerated Well Pain Scale: 0-10 Numeric Is Patient Pain Free? Yes Yes Yes WC - Visit Discharge Discharge Condition Stable Stable Stable Ambulatory Status Ambulatory Ambulatory Ambulatory Transportation Private Auto Private Auto Private Auto Accompanied by Assessment/Plan Active Problems (Last Updated 03/15/20 @ 19:22 by Luz Maria Mcnally) Type 2 diabetes mellitus with foot ulcer (Chronic) Non-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 (Chronic) Non-pressure chronic ulcer of other part of left foot with fat layer exposed (Chronic) Amputation at midfoot (Chronic) Acute osteomyelitis of left calcaneus (Acute) Peripheral vascular occlusive disease (Chronic) Left above and below the knee popliteal and tibioperoneal trunk atherectomy and angioplasty 06/28/14 Left below the knee popliteal atherectomy w/ angioplasty 12/29/13 Assessment: Left foot lateral heel ulcer. Left foot lateral foot ulcer. Transmetatarsal amputation site stump fissures-resolved. Left foot cellulitis- resolved. History of left transmetatarsal amputation. Diabetes. peripheral vascular disease. Osteomyelitis left calcaneus Plan: Patient seen and examined. . Wounds are stable. Steri-Strips and wound veil left intact to graft site. No signs of infection noted. Cultures from 10/03/20 showing Corynebacterium amycolatum, Staphylococcus aureus, Klebsiella pneumoniae, E. coli. Patient's creatinine clearance was 57 on 08/08/2020. On 10/24/2020 new cultures were obtained which were shown to grow Pseudomonas aerginosum, E. coli, Enterobacter cloacae, porhyromonas. Patient underwent vascular intervention on 08/15/[address] Jeff and again on 09/20/20. Patient has had previous surgical intervention with Dr. Jeff in the past as well. He had recent arterial studies on 06/13/20 showing monophasic waveforms and noncompressible bilateral PT and DP on the right with an left PAYAL of 0.78 on left. Discussed at length the importance of offloading with the patient in order to allow proper wound healing. Patient uses a walker. Patient states that he has an offloading shoe at home but is uncomfortable and twists when he tries to wear it while sleeping as he moves in his sleep. Patient does not wear it while sleeping. Discussed with patient the importance of his offloading suggested other alternative methods such as pillows or a doughnut offloading pad. Patient has no interest in this. Again the importance of offloading to allow ulcer to heal. Also discussed the importance of offloading when not sleeping such as in a chair with floating the heel with pillows. Patient also has a surgical shoe with cut out to offload the heel. Patient relates more comfort noted when wearing tennis shoes. He has been wearing those instead. Discussed with patient the importance of proper nutrition and blood sugar control to also aid in wound healing. Patient and educated on proper dressing changes. Patient approved for TheraSkin graft application to the left heel and hydrogel to foot. Reviewed MRI from 10/20/2020 demonstrated acute osteomyelitis to the left calcaneus. Patient wishes to treat with antibiotics. Patient saw Dr. Garnett who started him on multiple oral antibiotics including Flagyl, doxycycline, Cefadrxil for 42 days. Patient relates that he is out of one of his antibiotics. Patient had follow-up with Dr. Galicia last week when he was noted to prescribe a new antibiotic as the one he ran out of his no longer to be covered by his insurance for the full course of treatment. Patient is unsure which antibiotic it was replaced with. Discussed with patient and proper wound care and not to go underneath the Steri-Strips for daily dressing changes. All questions answered. Patient is to follow-up in 1 week. This note was generated with Dragon dictation software. It may contain incorrect words, spelling, and punctuation that were not noted in checking the note before signing. The problems addressed require a low medical decision making level which includes two or more minor problems, a stable chronic illness, or an acute uncomplicated illness or injury.
[2020-11-28 11:11] VITALS: BP 115/61; PULSE 92; TEMP 35.9; BMI 23.0
--- NOTE | 2020-11-28 17:40 | PCM.WC.PN ---
History of Present Illness Date of Service: 11/28/20 Chief Complaint: Left heel and lateral foot ulcerations osteomyelitis Peripheral vascular disease History of Wound: Patient is a 75-year-old male who presents to the wound care center after being seen in office by Dr. Pelaez [facility] for chronic left foot wound. 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 He also has had left posterior heel ulceration. Patient had an angioplasty intervention with Dr. Jeff on 08/15/20. Patient had another intervention 09/20/20. Patient has a history of peripheral vascular disease and has had surgical intervention in the past. Patient states that he has an offloading boot that he kicks his way out of and wakes him up at night. Patient has not found any other method of offloading to assist during sleeping. Patient has elevated the foot on pillows when sitting in chairs to offload the heel. Patient also has an offloading heel cut out surgical shoe she only wears when he is out of the house. When he is in the house patient states that he goes barefoot. Patient had MRI obtained 10/20/2020 demonstrating a large open wound is present in the lateral posterior and plantar aspect of the calcaneal process with associated mild cortical thinning and mild to moderate underlying edema due to active osteomyelitis. Patient followed up with Dr. Garnett per he was started on oral antibiotics to manage the osteomyelitis. Patient is currently taking doxycycline, cefadroxil and Flagyl 42 days. Patient relates that his insurance would not cover 42 days of one of the antibiotics and Dr. Bennett switched him to a different antibiotic but he is unsure which one at this time. He still can't remember, he will try to bring pills next visit Subjective Subjective: Patient is resting comfortably and denies any new pedal complains. Patient denies any nausea, fever, vomiting, chills, chest pain, shortness of breath, streaking, or purulence Objective Data Objective Data Vital Signs: Vital Signs Temp Pulse Resp BP 96.7 F L 92 16 115/61 11/28/20 11:11 11/28/20 11:11 11/21/20 11:13 11/28/20 11:11 Oxygen Delivery Method Room Air Weight: 79.379 kg Body Mass Index (BMI) 23.0 Finger Stick Blood Glucose 79 Assessment & Plan Assessment/Plan (1) Non-pressure chronic ulcer of other part of left foot with fat layer exposed: Status: Chronic Code(s): L97.522 - Non-pressure chronic ulcer of other part of left foot with fat layer exposed (2) Non-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: Status: Chronic Code(s): L97.422 - Non-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 (3) Type 2 diabetes mellitus with foot ulcer: Status: Chronic Code(s): E11.621 - Type 2 diabetes mellitus with foot ulcer; L97.509 - Non-pressure chronic ulcer of other part of unspecified foot with unspecified severity Qualifiers: Diabetes mellitus halfway insulin use: unspecified halfway insulin use status Qualified Code(s): E11.621 - Type 2 diabetes mellitus with foot ulcer; L97.509 - Non-pressure chronic ulcer of other part of unspecified foot with unspecified severity (4) Acute osteomyelitis of left calcaneus: Status: Acute Code(s): M86.172 - Other acute osteomyelitis, left ankle and foot (5) Peripheral vascular occlusive disease: Status: Chronic Code(s): I73.9 - Peripheral vascular disease, unspecified Plan: Assessment: Left foot lateral heel ulcer. Left foot lateral foot ulcer. Transmetatarsal amputation site stump fissures-resolved. Left foot cellulitis-resolved. History of left transmetatarsal amputation. Diabetes. peripheral vascular disease. Osteomyelitis left calcaneus Plan: Patient seen and examined. Wounds are improved. No signs of infection noted. After verbal consent was obtained ulcerations were sharply debrided without incident Cultures from 10/03/20 showing Corynebacterium amycolatum, Staphylococcus aureus, Klebsiella pneumoniae, E. coli. Patient's creatinine clearance was 57 on 08/08/2020. On 10/24/2020 new cultures were obtained which were shown to grow Pseudomonas aerginosum, E. coli, Enterobacter cloacae, porhyromonas. Reviewed MRI from 10/20/2020 demonstrated acute osteomyelitis to the left calcaneus. Patient wishes to treat with antibiotics. Patient saw Dr. Garnett who started him on multiple oral antibiotics including Flagyl, doxycycline, Cefadrxil for 42 days. Patient relates that he is out of one of his antibiotics. Patient had follow-up with Dr. Garnett when he was noted to prescribe a new antibiotic as the one he ran out of his no longer to be covered by his insurance for the full course of treatment. Patient is unsure which antibiotic it was replaced with. Patient underwent vascular intervention on 08/15/[address] Jeff and again on 09/20/20. Patient has had previous surgical intervention with Dr. Jeff in the past as well. He had recent arterial studies on 06/13/20 showing monophasic waveforms and noncompressible bilateral PT and DP on the right with an left PAYAL of 0.78 on left. Discussed at length the importance of offloading with the patient in order to allow proper wound healing. Patient uses a walker. Patient states that he has an offloading shoe at home but is uncomfortable and twists when he tries to wear it while sleeping as he moves in his sleep. Patient does not wear it while sleeping. Discussed with patient the importance of his offloading suggested other alternative methods such as pillows or a doughnut offloading pad. Patient has no interest in this. Again the importance of offloading to allow ulcer to heal. Also discussed the importance of offloading when not sleeping such as in a chair with floating the heel with pillows. Patient also has a surgical shoe with cut out to offload the heel. Patient relates more comfort noted when wearing tennis shoes. He has been wearing those instead. Discussed with patient the importance of proper nutrition and blood sugar control to also aid in wound healing. Patient and educated on proper dressing changes. To change outer dressing only. Patient approved for TheraSkin graft application to the left heel and hydrogel to foot. I recommend application of advanced wound healing product to the indicated ulceration. Prior authorization was confirmed. The indications, benefits, anticipated application and healing time management were reviewed in detail. Verbal consent was obtained in the procedure for today. Site was debrided and graft was applied according to standard protocol and was further secured with a nonadherent dressing and Steri-Strips. All questions answered. Patient is to follow-up in 1 week. This note was generated with [employer] dictation software. It may contain incorrect words, spelling, and punctuation that were not noted in checking the note before signing. The problems addressed require a low medical decision making level which includes two or more minor problems, a stable chronic illness, or an acute uncomplicated illness or injury. Physical Exam Const alert and no apparent distress General Appearance: cooperative and comfortable HEENT Head and Scalp: atraumatic Lymph Lymphatic: no lymphedema noted Resp normal respiratory effort Effort and Inspection: able to speak in complete sentences Extremity normal capillary refill, no calf tenderness and no pedal edema General Extremity: no tenderness to palpation of joints or extremities; Negative for clubbing or cyanosis Skin General Skin Exam: Negative for ecchymosis, erythema, eschar, pallor or dermatitis Rashes: no rashes Wounds: wounds noted Wound Narrative: ulcers noted to left heel and lateral foot No malodor, erythema, purulence, probing to bone, streaking, fluctuation, crepitus, or other signs of infection. Skin is atrophic and hairless. Granular base improved Neuro Gait (Neuro): normal gait Sensory Exam: extremities light-touch: decreased Motor Exam: strength 5/5 throughout Psych Appearance: appropriate Attitude: calm Debridement Note Debridement Note Post-Debridement Measurements and Additional Note: Post-Debridement Measurements/Treatment WC - Nurse 2 - General Ulcer CM Notes Start: 11/07/20 11:05 Freq: Status: Active Protocol: Activity Type Activity Date Activity User E-Sign Co-Sign Detail Recorded Client Recorded Date Recorded By Document 11/07/20 11:23 [id number] 11/07/20 11:27 Document 11/14/20 11:21 [id number] 11/14/20 11:37 Document 11/21/20 11:28 [id number] 11/21/20 11:30 Document 11/28/20 11:50 [id number] 11/28/20 11:54 11/07/20 11/14/20 11/21/20 11:23 11:21 11:28 Wound Center Nurse 2 #2- L LATERAL FOOT -Time 11:23 11:34 -Correct Patient Yes Yes No -Correct Side, Site, Position Yes Yes No -Correct Procedure Yes Yes No -Procedure Performed Yes Yes No -Type of Procedure Debridement Debridement -Clinical Debridement Subcutaneous Subcutaneous -Tissue Removed Subcutaneous Subcutaneous -Post Debridement (cm) - Length 1.4 0.9 -Post Debridement (cm) - Width 0.8 0.8 -Post Debridement (cm) - Depth 0.1 0.1 -Total Square (Post) (cm) 1.12 0.72 -Area of Debridement (cm) - Length 1.4 0.9 -Area of Debridement (cm) - Width 0.8 0.8 -Total Square (Area) (cm) 1.12 0.72 -Tunneling No No -Undermining/Tunneling No No -Circular Undermining No No -Wound/Ulcer Outcome Not Healed Not Healed Not Healed -Ulcer Cleansing Rinsed/ Rinsed/ Irrigated with Irrigated with Saline Saline -Foul Odor after Cleansing No No -Bioengineered Tissue No Yes -Type of Bioengineered Tissue Theraskin -Expiration Date 07/17/24 -Product Lot Number [id number] -Percent Used 100 -Lot number of Saline Used [id number] -Bleeding Controlled with Pressure Pressure -Offloading Yes Yes -Type of Offloading Surgical Shoe Surgical Shoe -Treatment Response Procedure Procedure Tolerated Well Tolerated Well -Debridement - Subq, 1st 20sq cm Yes Yes -Apply Skin Sub - 1st 25 sq cm - Feet 0 -Theraskin (per sq cm) 0 #1- L LATERAL HEEL -Time 11:24 11:36 -Correct Patient Yes Yes No -Correct Side, Site, Position Yes Yes No -Correct Procedure Yes Yes No -Procedure Performed Yes Yes No -Type of Procedure Debridement Debridement -Clinical Debridement Subcutaneous Subcutaneous -Tissue Removed Subcutaneous Subcutaneous -Post Debridement (cm) - Length 5.2 5 -Post Debridement (cm) - Width 3.0 2 -Post Debridement (cm) - Depth 0.3 0.5 -Total Square (Post) (cm) 15.60 10 -Area of Debridement (cm) - Length 5.2 5 -Area of Debridement (cm) - Width 3.0 2 -Total Square (Area) (cm) 15.60 10 -Tunneling No No -Undermining/Tunneling No No -Circular Undermining No No -Wound/Ulcer Outcome Not Healed Not Healed Not Healed -Ulcer Cleansing Rinsed/ Rinsed/ Irrigated with Irrigated with Saline Saline -Foul Odor after Cleansing No No -Bioengineered Tissue No Yes -Type of Bioengineered Tissue Theraskin -Expiration Date 07/17/24 -Product Lot Number [id number] -Percent Used 100 -Lot number of Saline Used [id number] -Bleeding Controlled with Pressure Pressure -Offloading Yes Yes -Type of Offloading Surgical Shoe Surgical Shoe -Treatment Response Procedure Procedure Tolerated Well Tolerated Well -Debridement - Subq, 1st 20sq cm No No -Apply Skin Sub - 1st 25 sq cm - Feet 1 -Theraskin (per sq cm) 26 Pain Scale: 0-10 Numeric Is Patient Pain Free? Yes Yes Yes 11/28/20 11:50 Wound Center Nurse 2 #2- L LATERAL FOOT -Time 11:50 -Correct Patient Yes -Correct Side, Site, Position Yes -Correct Procedure Yes -Procedure Performed Yes -Type of Procedure Debridement -Clinical Debridement Subcutaneous -Tissue Removed Subcutaneous -Post Debridement (cm) - Length 0.7 -Post Debridement (cm) - Width 0.7 -Post Debridement (cm) - Depth 0.2 -Total Square (Post) (cm) 0.49 -Area of Debridement (cm) - Length 0.7 -Area of Debridement (cm) - Width 0.7 -Total Square (Area) (cm) 0.49 -Tunneling No -Undermining/Tunneling No -Circular Undermining No -Wound/Ulcer Outcome Not Healed -Ulcer Cleansing Rinsed/ Irrigated with Saline -Foul Odor after Cleansing -Bioengineered Tissue Yes -Type of Bioengineered Tissue Theraskin -Expiration Date 03/01/24 -Product Lot Number [id number] -Percent Used 100 -Lot number of Saline Used [id number] -Bleeding Controlled with Pressure -Offloading Yes -Type of Offloading Surgical Shoe -Treatment Response Procedure Tolerated Well -Debridement - Subq, 1st 20sq cm Yes -Apply Skin Sub - 1st 25 sq cm - Feet 0 -Theraskin (per sq cm) 0 #1- L LATERAL HEEL -Time 11:52 -Correct Patient Yes -Correct Side, Site, Position Yes -Correct Procedure Yes -Procedure Performed Yes -Type of Procedure Debridement -Clinical Debridement Subcutaneous -Tissue Removed Subcutaneous -Post Debridement (cm) - Length 4.9 -Post Debridement (cm) - Width 2.4 -Post Debridement (cm) - Depth 0.5 -Total Square (Post) (cm) 11.76 -Area of Debridement (cm) - Length 4.9 -Area of Debridement (cm) - Width 2.4 -Total Square (Area) (cm) 11.76 -Tunneling No -Undermining/Tunneling No -Circular Undermining No -Wound/Ulcer Outcome Not Healed -Ulcer Cleansing Rinsed/ Irrigated with Saline -Foul Odor after Cleansing -Bioengineered Tissue Yes -Type of Bioengineered Tissue Theraskin -Expiration Date 03/01/24 -Product Lot Number [id number] -Percent Used 100 -Lot number of Saline Used [id number] -Bleeding Controlled with Pressure -Offloading Yes -Type of Offloading Surgical Shoe -Treatment Response Procedure Tolerated Well -Debridement - Subq, 1st 20sq cm No -Apply Skin Sub - 1st 25 sq cm - Feet 1 -Theraskin (per sq cm) 13 Pain Scale: 0-10 Numeric Is Patient Pain Free? Yes - Nurse 3 - General Ulcer D/C NN Start: 11/07/20 11:05 Freq: Status: Active Protocol: Activity Type Activity Date Activity User E-Sign Co-Sign Detail Recorded Client Recorded Date Recorded By Document 11/07/20 11:38 BM [id number] 11/07/20 11:39 BMF Document 11/14/20 11:51 BMF [id number] 11/14/20 11:52 BMF Document 11/21/20 11:43 DL [id number] 11/21/20 11:44 DL Document 11/28/20 12:03 KR [id number] 11/28/20 12:03 KR 11/07/20 11/14/20 11/21/20 11:38 11:51 11:43 Wound Care Nurse 3 #2- L LATERAL FOOT -Ulcer Cleansing Rinsed/ Irrigated with Saline -Foul Odor after Cleansing No No -Primary Dressing Applied Other -Other Dressing hydrogel THER[place] Theraskin -Primary Dressing Covered/Secured with Dry Gauze & Dry Gauze & Dry Gauze & Roll Gauze, Roll Gauze, Roll Gauze, Secured with Secured with Secured with Tape Tape Tape #1- L LATERAL HEEL -Ulcer Cleansing Rinsed/ Irrigated with Saline -Foul Odor after Cleansing No No -Primary Dressing Applied Other Other -Other Dressing dakins THERASKIN therakin moistened gauze -Primary Dressing Covered/Secured with Dry Gauze & Dry Gauze & Dry Gauze & Roll Gauze, Roll Gauze, Roll Gauze, Secured with Secured with Secured with Tape,Other Tape Tape -Other Covering heel hat Treatment Response Procedure Procedure Procedure Tolerated Well Tolerated Well Tolerated Well Pain Scale: 0-10 Numeric Is Patient Pain Free? Yes Yes Yes - Visit Discharge Discharge Condition Stable Stable Stable Ambulatory Status Ambulatory Ambulatory Ambulatory Transportation Private Auto Private Auto Private Auto Accompanied by 11/28/20 12:03 Wound Care Nurse 3 #2- L LATERAL FOOT -Ulcer Cleansing -Foul Odor after Cleansing -Primary Dressing Applied -Other Dressing -Primary Dressing Covered/Secured with Dry Gauze,Dry Gauze & Roll Gauze,Secured with Tape #1- L LATERAL HEEL -Ulcer Cleansing -Foul Odor after Cleansing -Primary Dressing Applied -Other Dressing -Primary Dressing Covered/Secured with Dry Gauze, Secured with Tape -Other Covering Treatment Response Pain Scale: 0-10 Numeric Is Patient Pain Free? Yes WC - Visit Discharge Discharge Condition Stable Ambulatory Status Ambulatory Transportation Private Auto Accompanied by Wound debrided: lateral foot Laterality: Left Wound Grade/Stage: barker 1 Type of Debridement: Excisional debridement Anesthesia Used: 4% Lidocaine Solution Depth: in the subcutaneous layer Percentage of wound debrided: 100 Instrument Used: 3mm curette Tissue Removed: Includes fibrous, devitalized, biofilm, callus and slough tissue Severity: Fat Layer Exposed Amount of bleeding with debridement: Mild Bleeding Controlled with: Pressure Patient tolerated procedure: Patient tolerated procedure well Additional Wound Wound debrided: Lateral heel Laterality: Left Wound Grade/Stage: Barker 3 Type of Debridement: Excisional debridement Anesthesia Used: 4% Lidocaine Solution Depth: in the subcutaneous layer Percentage of wound debrided: 100 Instrument Used: 3mm curette Tissue Removed: Includes fibrous, devitalized, biofilm, callus and slough tissue Severity: Fat Layer Exposed Amount of bleeding with debridement: Mild Bleeding Controlled with: Pressure Patient tolerated procedure: Patient tolerated procedure well
== END 2020-12-01 23:59 ==
LOC: WC 11:00
PROVIDERS: PCP Family Medicine; Referring Provider Podiatrist; Visit Provider Podiatrist Foot & Ankle Surgery
DX: E11.621 Type 2 diabetes mellitus with foot ulcer (principal); L97.522 Non-pressure chronic ulcer of other part of left foot with fat layer exposed; L97.422 Non-pressure chronic ulcer of left heel and midfoot with fat layer exposed; E11.51 Type 2 diabetes mellitus with diabetic peripheral angiopathy without gangrene; Z86.19 Personal history of other infectious and parasitic diseases; Z89.432 Acquired absence of left foot; E11.69 Type 2 diabetes mellitus with other specified complication; M86.172 Other acute osteomyelitis, left ankle and foot
CPT/HCPCS: 11042; 15275; 99213; Q4121; G0463

== ENCOUNTER → 2020-12-12 08:06 | Outpatient (CLI) | payer MEDICARE, OTHER, SELFPAY ==
[2020-12-05 11:12] VITALS: BMI 23.0
[2020-12-12 10:18] LABS: Absolute Lymphocyte Count 1.88 X10^3/uL (0.83-4.51); Absolute Neutrophil Count 3.3 X10^3/uL (2.0-7.7); Basophil# 0.05 X10^3/uL; Basophil% 0.8 % (0-1); Eosinophil# 0.08 X10^3/uL; Eosinophils% 1.3 % (0-5); Hematocrit 46.7 % (40-54); Hemoglobin 14.4 g/dL (13.0-16.5); Lymphocyte # 1.88 X10^3/ul (0.83-4.51); Lymphocyte % 31.3 % (19-41); Mean Corp Hgb Conc 30.8 g/dL (32-36); Mean Corpuscular Hgb 28.6 pg (27.0-32.0); Mean Corpuscular Volume 92.7 fL (80-94); Mean Platelet Vol. 9.8 fl (6.2-12.0); Monocyte# 0.65 X10^3/uL; Monocyte% 10.8 % (0-10); NRBC Flagged by Analyzer 0 % (0-5); Neutrophil # 3.33 X10^3/uL (2.7-7.7); Neutrophil % 55.5 % (47-70); Platelet Count 251 K/mm3 (150-450); RBC Distribution Width CV 12.6 % (11.6-14.6); RBC Distribution Width SD 43.2 fl (35.1-43.9); Red Blood Count 5.04 M/mm3 (4.6-6.2)
[2020-12-12 10:38] LABS: Hemoglobin A1c 6.4 % (3.8-5.6)
[2020-12-12 11:13] LABS: ALB/GLOB Ratio 1.1 RATIO (0.9-2.4); AST(SGOT) 18 U/L (15-37); Alanine Aminotransfer ALT/SGPT 24 U/L (16-61); Albumin, Serum 3.4 g/dL (3.2-5.0); Alkaline Phosphatase 71 U/L (45-117); Anion Gap 6 (5-15); BUN 16 mg/dL (7-18); BUN/Creat Ratio 17.6 RATIO (10-20); Calcium,Total 8.8 mg/dL (8.5-10.1); Chloride 106 mmol/L (98-107); Cholesterol 113 mg/dL (200); Creatinine, Serum 0.91 mg/dL (0.70-1.30); EST Glomerular Filtration Rate 86 mL/min (>60); Est Glom Filt Rate - Afr Amer 104 mL/min (>60); Ferritin 37 ng/mL (26-388); Glucose 53 mg/dL (74-106); High Density Lipoprotein 52 mg/dL; Iron 53 ug/dL (65-175); Iron Binding Capacity,Total 256 ug/dL (250-450); Magnesium 1.8 mg/dL (1.6-2.6); Potassium 3.8 mmol/L (3.5-5.1); Protein, Total 6.4 g/dL (6.4-8.2); Sodium Level 137 mmol/L (136-145); Triglycerides 71 mg/dL; Very Low Density Lipoprotein 14 mg/dL (5-40)
[2020-12-12 18:51] LABS: Microalbumin,Random Urine 43.4 mg/L (NO RANGE EST.); Microalbumin:Creatinine Ratio 64.9 mg/g CRE (<30 mg/g CRE)
== END ==
PROVIDERS: PCP Family Medicine; Referring Provider Family Medicine; Visit Provider Family Medicine
DX: E11.621 Type 2 diabetes mellitus with foot ulcer (principal); E61.1 Iron deficiency; I48.0 Paroxysmal atrial fibrillation; L03.116 Cellulitis of left lower limb; L97.522 Non-pressure chronic ulcer of other part of left foot with fat layer exposed; L97.422 Non-pressure chronic ulcer of left heel and midfoot with fat layer exposed; S98.3 Traumatic amputation of midfoot; I73.9 Peripheral vascular disease, unspecified
CPT/HCPCS: 11042; 15275; 36415; 80053; 80061; 82043; 82570; 82728; 83036; 83540; 83550; 83735; 84443; 85025; Q4121

== ENCOUNTER 2020-12-26 11:00 | Outpatient (RCR) | payer MEDICARE, OTHER, SELFPAY ==
[2020-12-02 00:39] VITALS: BP 115/61; PULSE 92; RESP 16; TEMP 35.9
[2020-12-05 11:12] VITALS: BP 107/66; PULSE 87; RESP 20; TEMP 37; BMI 23.0
--- NOTE | 2020-12-05 12:07 | PCM.WC.PN ---
History of Present Illness Date of Service: 12/05/20 Chief Complaint: Left heel and lateral foot ulcerations osteomyelitis Peripheral vascular disease History of Wound: Patient is a 75-year-old male who presents to the wound care center after being seen in office by Dr. Pelaez [facility] for chronic left foot wound. 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 He also has had left posterior heel ulceration. Patient had an angioplasty intervention with Dr. Jeff on 08/15/20. Patient had another intervention 09/20/20. Patient has a history of peripheral vascular disease and has had surgical intervention in the past. Patient states that he has an offloading boot that he kicks his way out of and wakes him up at night. Patient has not found any other method of offloading to assist during sleeping. Patient has elevated the foot on pillows when sitting in chairs to offload the heel. Patient also has an offloading heel cut out surgical shoe she only wears when he is out of the house. When he is in the house patient states that he goes barefoot. Patient had MRI obtained 10/20/2020 demonstrating a large open wound is present in the lateral posterior and plantar aspect of the calcaneal process with associated mild cortical thinning and mild to moderate underlying edema due to active osteomyelitis. Patient followed up with Dr. Garnett per he was started on oral antibiotics to manage the osteomyelitis. Patient is currently taking doxycycline, cefadroxil and Flagyl 42 days. Progress of Wound: Stable without signs of infection Subjective Subjective: Patient seen and examined resting comfortably. Patient denies any new pedal complaints. Patient denies any nausea, fever, chills, chest pain, shortness of breath, cough, streaking, purulence, vomiting. Objective Data Objective Data Vital Signs: Vital Signs Temp Pulse Resp BP 98.6 F 87 20 H 107/66 12/05/20 11:12 12/05/20 11:12 12/05/20 11:12 12/05/20 11:12 Weight: 175 lb Body Mass Index (BMI) 23.0 Finger Stick Blood Glucose 79 Assessment & Plan Assessment/Plan (1) Non-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: Status: Chronic Code(s): L97.422 - Non-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 (2) Non-pressure chronic ulcer of other part of left foot with fat layer exposed: Status: Chronic Code(s): L97.522 - Non-pressure chronic ulcer of other part of left foot with fat layer exposed (3) Type 2 diabetes mellitus with foot ulcer: Status: Chronic Code(s): E11.621 - Type 2 diabetes mellitus with foot ulcer; L97.509 - Non-pressure chronic ulcer of other part of unspecified foot with unspecified severity Qualifiers: 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: unspecified vermin exterminator insulin use status Qualified Code(s): E11.621 - Type 2 diabetes mellitus with foot ulcer; L97.509 - Non-pressure chronic ulcer of other part of unspecified foot with unspecified severity (4) 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 Wounds are stable. No signs of infection noted. Wound graft dressing left clean dry and intact. This is to stay in place for another week. Cultures from 10/03/20 showing Corynebacterium amycolatum, Staphylococcus aureus, Klebsiella pneumoniae, E. coli. Patient's creatinine clearance was 57 on 08/08/2020. On 10/24/2020 new cultures were obtained which were shown to grow Pseudomonas aerginosum, E. coli, Enterobacter cloacae, porhyromonas. Reviewed MRI from 10/20/2020 demonstrated acute osteomyelitis to the left calcaneus. Patient wishes to treat with antibiotics. Patient saw Dr. Garnett who started him on multiple oral antibiotics including Flagyl, doxycycline, Cefadrxil for 42 days. Patient relates that he is out of one of his antibiotics. Patient had follow-up with Dr. Garnett when he was noted to prescribe a new antibiotic as the one he ran out of his no longer to be covered by his insurance for the full course of treatment. Patient is unsure which antibiotic it was replaced with. Patient underwent vascular intervention on 08/15/[address] Jeff and again on 09/20/20. Patient has had previous surgical intervention with Dr. Jeff in the past as well. He had recent arterial studies on 06/13/20 showing monophasic waveforms and noncompressible bilateral PT and DP on the right with an left PAYAL of 0.78 on left. Discussed at length the importance of offloading with the patient in order to allow proper wound healing. Patient uses a walker. Patient states that he has an offloading shoe at home but is uncomfortable and twists when he tries to wear it while sleeping as he moves in his sleep. Patient does not wear it while sleeping. Discussed with patient the importance of his offloading suggested other alternative methods such as pillows or a doughnut offloading pad. Patient has no interest in this. Again the importance of offloading to allow ulcer to heal. Also discussed the importance of offloading when not sleeping such as in a chair with floating the heel with pillows. Patient also has a surgical shoe with cut out to offload the heel. Patient relates more comfort noted when wearing tennis shoes. He has been wearing those instead. Discussed with patient the importance of proper nutrition and blood sugar control to also aid in wound healing. Patient and educated on proper dressing changes. To change outer dressing only. Patient approved for TheraSkin graft application to the left heel and hydrogel to foot. All questions answered. Patient is to follow-up in 1 week. This note was generated with [email or web address] dictation software. It may contain incorrect words, spelling, and punctuation that were not noted in checking the note before signing. The problems addressed require a low medical decision making level which includes two or more minor problems, a stable chronic illness, or an acute uncomplicated illness or injury. Physical Exam Const alert and no apparent distress General Appearance: cooperative and comfortable HEENT Head and Scalp: atraumatic Lymph Lymphatic: no lymphedema noted Resp normal respiratory effort Effort and Inspection: able to speak in complete sentences Extremity normal capillary refill, no calf tenderness and no pedal edema General Extremity: no tenderness to palpation of joints or extremities; Negative for clubbing or cyanosis Peripheral Pulses: Yes posterior tibial pulses present bilateral diminished and dorsalis pedis pulses present bilateral diminished Skin General Skin Exam: Negative for ecchymosis, erythema, eschar, pallor or dermatitis Rashes: no rashes Wounds: wounds noted Wound Narrative: Left lateral heel and lateral forefoot ulcerations. These are covered with wound veil and Steri-Strips. There is no signs of infection noted at this time. The graft has been left in place for another week. Transmetatarsal amputation noted to left foot. Neuro Gait (Neuro): antalgic Sensory Exam: extremities light-touch: decreased Motor Exam: strength 5/5 throughout Psych Appearance: appropriate Attitude: calm Debridement Note Debridement Note Post-Debridement Measurements and Additional Note: Post-Debridement Measurements/Treatment - Nurse 2 - General Ulcer CM Notes Start: 12/05/20 11:10 Freq: Status: Active Protocol: Activity Type Activity Date Activity User E-Sign Co-Sign Detail Recorded Client Recorded Date Recorded By Document 12/05/20 11:33 [id number] 12/05/20 11:36 12/05/20 11:33 Wound Center Nurse 2 #2- L LATERAL FOOT -Correct Patient No -Correct Side, Site, Position No -Correct Procedure No -Procedure Performed No -Wound/Ulcer Outcome Not Healed #1- L LATERAL HEEL -Correct Patient No -Correct Side, Site, Position No -Correct Procedure No -Procedure Performed No -Wound/Ulcer Outcome Not Healed Pain Scale: 0-10 Numeric Is Patient Pain Free? Yes - Nurse 3 - General Ulcer D/C NN Start: 12/05/20 11:10 Freq: Status: Active Protocol: Activity Type Activity Date Activity User E-Sign Co-Sign Detail Recorded Client Recorded Date Recorded By Document 12/05/20 11:36 JF [id number] 12/05/20 11:37 12/05/20 11:36 Wound Care Nurse 3 #2- L LATERAL FOOT -Ulcer Cleansing Rinsed/ Irrigated with Saline -Foul Odor after Cleansing No -Primary Dressing Covered/Secured with Dry Gauze & Roll Gauze, Secured with Tape #1- L LATERAL HEEL -Ulcer Cleansing Rinsed/ Irrigated with Saline -Foul Odor after Cleansing No -Primary Dressing Covered/Secured with Dry Gauze & Roll Gauze, Secured with Tape Pain Scale: 0-10 Numeric Is Patient Pain Free? Yes WC - Visit Discharge Discharge Condition Stable Ambulatory Status Ambulatory Transportation Private Auto Accompanied by Medication Reconcilliation completed & Yes provided to patient/care provider Clinical Summary of Care Provided Yes Wound debrided: Lateral foot and heel Laterality: Left No debridement was completed: No debridement was completed today (Wound graft to be left in place for another week)
[2020-12-12 11:35] VITALS: BP 125/33; PULSE 90; RESP 16; TEMP 36.9; BMI 23.0
--- NOTE | 2020-12-12 12:17 | PN.PCM_ITS ---
History of Present Illness Date of Service: 12/12/20 Chief Complaint: Left heel and lateral foot ulcerations osteomyelitis Peripheral vascular disease History of Wound: Patient is a 75-year-old male who presents to the wound care center after being seen in office by Dr. Pelaez [facility] for chronic left foot wound. 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 He also has had left posterior heel ulceration. Patient had an angioplasty intervention with Dr. Jeff on 08/15/20. Patient had another intervention 09/20/20. Patient has a history of peripheral vascular disease and has had surgical intervention in the past. Patient states that he has an offloading boot that he kicks his way out of and wakes him up at night. Patient has not found any other method of offloading to assist during sleeping. Patient has elevated the foot on pillows when sitting in chairs to offload the heel. Patient also has an offloading heel cut out surgical shoe she only wears when he is out of the house. When he is in the house patient states that he goes barefoot. Patient had MRI obtained 10/20/2020 demonstrating a large open wound is present in the lateral posterior and plantar aspect of the calcaneal process with associated mild cortical thinning and mild to moderate underlying edema due to active osteomyelitis. Patient followed up with Dr. Garnett per he was started on oral antibiotics to manage the osteomyelitis. Patient is currently taking doxycycline, cefadroxil and Flagyl 42 days. Progress of Wound: Significant improvement noted with decrease in size and depth of wound Subjective Subjective: Patient seen and examined resting comfortably. Patient denies any new pedal complaints. Patient denies any nausea, fever, chills, chest pain, shortness of breath, cough, streaking, purulence, vomiting. Objective Data Objective Data Vital Signs: Vital Signs Temp Pulse Resp BP 98.4 F 90 16 125/33 H 12/12/20 11:35 12/12/20 11:35 12/12/20 11:35 12/12/20 11:35 Oxygen Delivery Method Room Air Weight: 79.379 kg Body Mass Index (BMI) 23.0 Finger Stick Blood Glucose 79 Assessment & Plan Assessment/Plan (1) Non-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: (2) Non-pressure chronic ulcer of other part of left foot with fat layer exposed: (3) Type 2 diabetes mellitus with foot ulcer: QUALIFIERS: Diabetes mellitus alf insulin use: unspecified alf insulin use status Qualified Code(s): E11.621 - Type 2 diabetes mellitus with foot ulcer; L97.509 - Non-pressure chronic ulcer of other part of unspecified foot with unspecified severity (4) Amputation at midfoot: QUALIFIERS: Encounter type: subsequent encounter Laterality: left Qualified Code(s): S98.312D - Complete traumatic amputation of left midfoot, s ubsequent encounter (5) Peripheral vascular occlusive disease: PLAN: Patient seen and examined. Wounds are improved. Noted to be smaller in size and healthy in appearance. Cultures from 10/03/20 showing Corynebacterium amycolatum, Staphylococcus aureus, Klebsiella pneumoniae, E. coli. Patient's creatinine clearance was 57 on 08/08/2020. On 10/24/2020 new cultures were obtained which were shown to grow Pseudomonas aerginosum, E. coli, Enterobacter cloacae, porhyromonas. Reviewed MRI from 10/20/2020 demonstrated acute osteomyelitis to the left calcaneus. Patient wishes to treat with antibiotics. Patient saw Dr. Garnett who started him on multiple oral antibiotics including Flagyl, doxycycline, Cefadrxil for 42 days. Patient relates that he is out of one of his antibiotics. Patient had follow-up with Dr. Garnett when he was noted to prescribe a new antibiotic as the one he ran out of his no longer to be covered by his insurance for the full course of treatment. Patient is unsure which antibiotic it was replaced with. Patient underwent vascular intervention on 08/15/[address] Jeff and again on 09/20/20. Patient has had previous surgical intervention with Dr. Jeff in the past as well. He had recent arterial studies on 06/13/20 showing monophasic waveforms and noncompressible bilateral PT and DP on the right with an left PAYAL of 0.78 on left. Discussed at length the importance of offloading with the patient in order to allow proper wound healing. Patient uses a walker. Patient states that he has an offloading shoe at home but is uncomfortable and twists when he tries to wear it while sleeping as he moves in his sleep. Patient does not wear it while sleeping. Discussed with patient the importance of his offloading suggested other alternative methods such as pillows or a doughnut offloading pad. Patient has no interest in this. Again the importance of offloading to allow ulcer to heal. Also discussed the importance of offloading when not sleeping such as in a chair with floating the heel with pillows. Patient also has a surgical shoe with cut out to offload the heel. Patient relates more comfort noted when weari ng tennis shoes. He has been wearing those instead. Discussed with patient the importance of proper nutrition and blood sugar control to also aid in wound healing. Patient and educated on proper dressing changes. To change outer dressing only. Patient approved for TheraSkin graft application to the left heel and hydrogel to foot. I recommend application of advanced wound healing product to the indicated ulceration. Prior authorization was confirmed. The indications, benefits, anticipated application and healing time management were reviewed in detail. Verbal consent was obtained in the procedure for today. Site was debrided and graft was applied according to standard protocol and was further secured with a nonadherent dressing and Steri-Strips. Patient instructed that they can change outer dressing but not to go beneath the Steri-Strips. All questions answered. Patient is to follow-up in 1 week. This note was generated with [employer] dictation software. It may contain incorrect words, spelling, and punctuation that were not noted in checking the note before signing. The problems addressed require a low medical decision making level which includes two or more minor problems, a stable chronic illness, or an acute uncomplicated illness or injury. Physical Exam Const alert and no apparent distress General Appearance: cooperative and comfortable Lymph Lymphatic: no lymphedema noted Resp normal respiratory effort Effort and Inspection: able to speak in complete sentences Extremity normal capillary refill, no calf tenderness and no pedal edema General Extremity: no tenderness to palpation of joints or extremities; Negative for clubbing or cyanosis Peripheral Pulses: Yes posterior tibial pulses present left 2+ and dorsalis pedis pulses present left 2+ Skin General Skin Exam: Negative for ecchymosis, erythema, eschar, pallor or dermatitis Rashes: no rashes Wounds: wounds noted Wound Narrative: Left lateral heel and lateral forefoot ulcerations. No malodor, erythema, purulence, probing to bone, streaking, fluctuation, crepitus, or other signs of infection. Skin is atrophic and hairless. Wounds are noted to have healthy granular base with healthy bleeding noted. Transmetatarsal amputation noted to left foot. Neuro Gait (Neuro): antalgic Sensory Exam: extremities light-touch: decreased Motor Exam: strength 5/5 throughout Psych Appearance: appropriate Attitude: calm Debridement Note Debridement Note Post-Debridement Measurements and Additional Note: Post-Debridement Measurements/Treatment JESSICA - Nurse 1 - General Ulcer Assessment Start: 12/05/20 11:10 Freq: Status: Active Protocol: YANNI Activity Type Activity Date Activity User E-Sign Co-Sign Detail Recorded Client Recorded Date Recorded By Document 12/05/20 11:12 DL [id number] 12/05/20 11:20 DL Document 12/12/20 11:35 [facility] [id number] 12/12/20 11:46 BMF 12/05/20 12/12/20 11:12 11:35 - Today's Visit Information Type of service Follow-up Visit Follow-up Visit (Physician/PARA OPERATOR (Physician/PARA OPERATOR ) ) Arrival Mode Ambulatory Ambulatory Transfer Assistance None None Accompanied by Patient Identification Verified (Name & Yes Yes ) Patient Requires Transmission-Based No No Precautions Finger Stick Blood Sugar(mg/dl) (if 139 indicated): Blood Sugar Stated by Patient Height and Weight Body Mass Index (BMI) 23.0 23.0 BMI Classification Normal Normal Vital Signs Temperature (97.8 F-99.1 F) 98.6 F 98.4 F Temperature Source Temporal Temporal Pulse Rate (60-100) 87 90 Pulse Location Monitor Monitor Respiratory Rate (12-18) 20 H 16 Respiratory rate source Observation Observation Oxygen Delivery Method Room Air Blood Pressure (90/60-120/80) 107/66 125/33 H Blood Pressure Mean (mm Hg) 79 63 Source Monitor Monitor Position Sitting Blood Pressure Location Left Forearm History Since Last Visit- (Skip if this is Patient's initial visit) Have you changed medications since your No No last visit? Any new allergies or adverse reactions No No Had a fall/change in ADL's that may No No increase risk of falls Signs or symptoms of abuse and/or No No neglect since last visit Have you been in the hospital since your No No last visit? Has dressing in place as prescribed No Yes Has compression in place as prescribed N/A N/A Has offloadiing in place as prescribed Yes N/A Experienced any changes in pain level or No No management Left Footwear Regular Shoe Right Footwear Regular Shoe Pain Scale: 0-10 Numeric Is Patient Pain Free? Yes Yes WC - Nurse 1 - General Ulcer Measurement Start: 12/05/20 11:10 Freq: Status: Active Protocol: Activity Type Activity Date Activity User E-Sign Co-Sign Detail Recorded Client Recorded Date Recorded By Document 12/05/20 11:12 DL [id number] 12/05/20 11:20 DL Document 12/12/20 11:35 [facility] [id number] 12/12/20 11:46 BM 12/05/20 12/12/20 11:12 11:35 Wound Center Nurse 1 #2- L LATERAL FOOT -Combined with other wound No -Current Size (cm) - Length 0.1 0.1 -Current Size (cm) - Width 0.1 0.1 -Current Size (cm) - Depth 0.1 0.1 -Total Square Cm 0.01 0.01 -Photo Taken No No -Epithelialization None Present -Tunneling No -Undermining/Tunneling No -Circular Undermining No -Exudate Amt Medium None Present -Exudate Type Serosanguineous -Wound Margin Distinct, Outline Attached -Granulation Amt Medium (34-66%) None Present (0 %) -Granulation Quality Red -Slough/Fibrin Yes -Necrosis Amt Medium (34-66%) Large (67-100%) -Necrotic Tissue Type Adherent Slough Adherent Slough -Structure Exposed N/A -Texture (Stacy-wound Skin Appearance) Scarring Assessed, Scarring -Moisture (Stacy-wound Skin Appearance) No Abnormality Assessed -Color (Stacy-wound Skin Appearance) No Abnormality Assessed -Temperature (Stacy-wound Skin No Abnormality No Abnormality Appearance) (Pt Warm) (Pt Warm) -Tenderness on Palpation (Stacy-wound No No Skin Appearance) -Ulcer Cleansing Rinsed/ soapy water Irrigated with Saline -Foul Odor after Cleansing No No -Anesthetic Used 5% Lidocaine Gel #1- L LATERAL HEEL -Combined with other wound No -Current Size (cm) - Length 0.1 4.9 -Current Size (cm) - Width 0.1 1.6 -Current Size (cm) - Depth 0.1 0.5 -Total Square Cm 0.01 7.84 -Photo Taken No No -Epithelialization None Present -Tunneling No -Undermining/Tunneling Yes -Undermining/Tunneling Starts (O'clock 1 ) -Undermining/Tunneling Ends (O'clock) 4 -Maximum Distance (cm) 0.5 -Circular Undermining No -Exudate Amt Medium Medium -Exudate Type Serosanguineous Serosanguineous -Wound Margin Distinct, Distinct, Outline Outline Attached Attached -Granulation Amt Medium (34-66%) Small (1-33%) -Granulation Quality Red Red -Slough/Fibrin Yes -Necrosis Amt Medium (34-66%) Large (67-100%) -Necrotic Tissue Type Adherent Slough Adherent Slough -Structure Exposed N/A -Texture (Stacy-wound Skin Appearance) Scarring Assessed, Scarring -Moisture (Stacy-wound Skin Appearance) Dry/Scaly Assessed -Color (Stacy-wound Skin Appearance) No Abnormality Assessed -Temperature (Stacy-wound Skin No Abnormality No Abnormality Appearance) (Pt Warm) (Pt Warm) -Tenderness on Palpation (Stacy-wound No No Skin Appearance) -Ulcer Cleansing Wound Cleanser soapy water -Foul Odor after Cleansing No No -Anesthetic Used 5% Lidocaine Gel WC - Nurse 2 - General Ulcer CM Notes Start: 12/05/20 11:10 Freq: Status: Active Protocol: Activity Type Activity Date Activity User E-Sign Co-Sign Detail Recorded Client Recorded Date Recorded By Document 12/05/20 11:33 [id number] 12/05/20 11:36 Document 12/12/20 12:07 [id number] 12/12/20 12:13 12/05/20 12/12/20 11:33 12:07 Wound Center Nurse 2 #2- L LATERAL FOOT -Time 12:07 -Correct Patient No Yes -Correct Side, Site, Position No Yes -Correct Procedure No Yes -Procedure Performed No Yes -Type of Procedure Debridement -Clinical Debridement Subcutaneous -Tissue Removed Subcutaneous, Biofilm -Post Debridement (cm) - Length 0.6 -Post Debridement (cm) - Width 0.4 -Post Debridement (cm) - Depth 0.1 -Total Square (Post) (cm) 0.24 -Area of Debridement (cm) - Length 0.6 -Area of Debridement (cm) - Width 0.4 -Total Square (Area) (cm) 0.24 -Tunneling No -Undermining/Tunneling No -Circular Undermining No -Wound/Ulcer Outcome Not Healed Not Healed -Ulcer Cleansing Rinsed/ Irrigated with Saline -Foul Odor after Cleansing No -Bioengineered Tissue Yes -Type of Bioengineered Tissue Theraskin -Expiration Date 03/17/24 -Product Lot Number [id number] -Percent Used 100 -Lot number of Saline Used [id number] -Bleeding Controlled with Pressure -Offloading Yes -Type of Offloading Surgical Shoe -Treatment Response Procedure Tolerated Well -Debridement - Subq, 1st 20sq cm Yes -Apply Skin Sub - each addt'l 25 sq cm 0 - Feet -Theraskin (per sq cm) 0 #1- L LATERAL HEEL -Time 12:11 -Correct Patient No Yes -Correct Side, Site, Position No Yes -Correct Procedure No Yes -Procedure Performed No Yes -Type of Procedure Debridement -Clinical Debridement Subcutaneous -Tissue Removed Subcutaneous -Post Debridement (cm) - Length 1.9 -Post Debridement (cm) - Width 4.5 -Post Debridement (cm) - Depth 0.3 -Total Square (Post) (cm) 8.55 -Area of Debridement (cm) - Length 1.9 -Area of Debridement (cm) - Width 4.5 -Total Square (Area) (cm) 8.55 -Tunneling No -Undermining/Tunneling No -Circular Undermining No -Wound/Ulcer Outcome Not Healed Not Healed -Ulcer Cleansing Rinsed/ Irrigated with Saline -Foul Odor after Cleansing No -Bioengineered Tissue No -Type of Bioengineered Tissue Theraskin -Expiration Date 03/17/24 -Product Lot Number [id number] -Percent Used 100 -Lot number of Saline Used [id number] -Bleeding Controlled with Pressure -Offloading Yes -Type of Offloading Surgical Shoe -Treatment Response Procedure Tolerated Well -Debridement - Subq, 1st 20sq cm No -Apply Skin Sub - 1st 25 sq cm - Feet 1 -Theraskin (per sq cm) 13 Pain Scale: 0-10 Numeric Is Patient Pain Free? Yes Yes WC - Nurse 3 - General Ulcer D/C NN Start: 12/05/20 11:10 Freq: Status: Active Protocol: Activity Type Activity Date Activity User E-Sign Co-Sign Detail Recorded Client Recorded Date Recorded By Document 12/05/20 11:36 OPAL [id number] 12/05/20 11:37 12/05/20 11:36 Wound Care Nurse 3 #2- L LATERAL FOOT -Ulcer Cleansing Rinsed/ Irrigated with Saline -Foul Odor after Cleansing No -Primary Dressing Covered/Secured with Dry Gauze & Roll Gauze, Secured with Tape #1- L LATERAL HEEL -Ulcer Cleansing Rinsed/ Irrigated with Saline -Foul Odor after Cleansing No -Primary Dressing Covered/Secured with Dry Gauze & Roll Gauze, Secured with Tape Pain Scale: 0-10 Numeric Is Patient Pain Free? Yes WC - Visit Discharge Discharge Condition Stable Ambulatory Status Ambulatory Transportation Private Auto Accompanied by Medication Reconcilliation completed & Yes provided to patient/care provider Clinical Summary of Care Provided Yes Wound debrided: Lateral foot Laterality: Left Wound Grade/Stage: Barker 1 Type of Debridement: Excisional debridement Anesthesia Used: 4% Lidocaine Solution Depth: in the subcutaneous layer Percentage of wound debrided: 100 Instrument Used: 3mm curette Tissue Removed: includes fibrous, devitalized, biofilm, callus and slough tissue Severity: Fat Layer Exposed Amount of bleeding with debridement: Mild Bleeding Controlled with: Pressure Patient tolerated procedure: Patient tolerated procedure well Additional Wound Wound debrided: Lateral heel Laterality: Left Wound Grade/Stage: Barker 3 Type of Debridement: Excisional debridement Anesthesia Used: 4% Lidocaine Solution Depth: in the subcutaneous layer Percentage of wound debrided: 100 Instrument Used: 3mm curette Tissue Removed: Includes fibrous, devitalized, biofilm, callus and slough tissue Severity: Fat Layer Exposed Amount of bleeding with debridement: Mild Bleeding Controlled with: Pressure Patient tolerated procedure: Patient tolerated procedure well
[2020-12-19 11:01] VITALS: BP 137/76; PULSE 87; RESP 16; TEMP 35.7; BMI 23.0
--- NOTE | 2020-12-19 12:51 | PCM.WC.PN ---
History of Present Illness Date of Service: 12/19/20 Chief Complaint: Left heel and lateral foot ulcerations osteomyelitis Peripheral vascular disease History of Wound: Patient is a 75-year-old male who presents to the wound care center after being seen in office by Dr. Pelaez [facility] for chronic left foot wound. 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 He also has had left posterior heel ulceration. Patient had an angioplasty intervention with Dr. Jeff on 08/15/20. Patient had another intervention 09/20/20. Patient has a history of peripheral vascular disease and has had surgical intervention in the past. Patient states that he has an offloading boot that he kicks his way out of and wakes him up at night. Patient has not found any other method of offloading to assist during sleeping. Patient has elevated the foot on pillows when sitting in chairs to offload the heel. Patient also has an offloading heel cut out surgical shoe she only wears when he is out of the house. When he is in the house patient states that he goes barefoot. Patient had MRI obtained 10/20/2020 demonstrating a large open wound is present in the lateral posterior and plantar aspect of the calcaneal process with associated mild cortical thinning and mild to moderate underlying edema due to active osteomyelitis. Patient followed up with Dr. Garnett per he was started on oral antibiotics to manage the osteomyelitis. Patient is currently taking doxycycline, cefadroxil and Flagyl 42 days. Patient has since finished this course of treatment. Progress of Wound: Significant improvement noted with decrease in size and depth of wound Subjective Subjective Patient seen and examined resting comfortably. Patient denies any new pedal complaints. Patient denies any nausea, fever, chills, chest pain, shortness of breath, cough, streaking, purulence, vomiting. Patient does relate an incident where he was showering in the shower back did not keep his foot dry. Patient relates that his foot was wet wet and that he tried his foot as much possible for redressing the area but leaving the skin graft intact. Objective Data Objective Data Vital Signs: Vital Signs Temp Pulse Resp BP 96.3 F L 87 16 137/76 H 12/19/20 11:01 12/19/20 11:01 12/19/20 11:01 12/19/20 11:01 Oxygen Delivery Method Room Air Weight: 79.379 kg Body Mass Index (BMI) 23.0 Physical Exam Const alert and no apparent distress General Appearance: cooperative and comfortable Lymph Lymphatic: no lymphedema noted Resp normal respiratory effort Effort and Inspection: able to speak in complete sentences Extremity normal capillary refill, no calf tenderness and no pedal edema General Extremity: no tenderness to palpation of joints or extremities; Negative for clubbing or cyanosis Skin General Skin Exam: Negative for ecchymosis, erythema, eschar, pallor or dermatitis Rashes: no rashes Wounds: wounds noted Wound Narrative: Left lateral heel and lateral forefoot ulcerations. No malodor, erythema, purulence, probing to bone, streaking, fluctuation, crepitus, or other signs of infection. Skin is atrophic and hairless. Wounds are noted to have healthy granular base with healthy bleeding noted. There is erythema noted. Lateral heel ulceration in the shape of the Steri-Strips. This is likely due to irritation from area becoming wet and remaining against the skin. This does not appear infectious in nature Transmetatarsal amputation noted to left foot. Neuro Gait (Neuro): antalgic Sensory Exam: extremities light-touch: decreased Motor Exam: strength 5/5 throughout Psych Appearance: appropriate Attitude: calm Debridement Note Debridement Note Post-Debridement Measurements and Additional Note: Post-Debridement Measurements/Treatment - Nurse 1 - General Ulcer Assessment Start: 12/05/20 11:10 Freq: Status: Active Protocol: .LOWEXT Activity Type Activity Date Activity User E-Sign Co-Sign Detail Recorded Client Recorded Date Recorded By Document 12/05/20 11:12 DL [id number] 12/05/20 11:20 DL Document 12/12/20 11:35 [facility] [id number] 12/12/20 11:46 BM Document 12/19/20 11:01 [facility] Desktop 12/19/20 11:09 [facility] 12/05/20 12/12/20 12/19/20 11:12 11:35 11:01 - Today's Visit Information Type of service Follow-up Visit Follow-up Visit Follow-up Visit (Physician/POLICY SERVICES REPRESENTATIVE (Physician/POLICY SERVICES REPRESENTATIVE (Physician/POLICY SERVICES REPRESENTATIVE ) ) ) Arrival Mode Ambulatory Ambulatory Ambulatory Transfer Assistance None None None Accompanied by Patient Identification Verified (Name & Yes Yes Yes ) Patient Requires Transmission-Based No No No Precautions Finger Stick Blood Sugar(mg/dl) (if 139 indicated): Blood Sugar Stated by Patient Height and Weight Body Mass Index (BMI) 23.0 23.0 23.0 BMI Classification Normal Normal Normal Vital Signs Temperature (97.8 F-99.1 F) 98.6 F 98.4 F 96.3 F L Temperature Source Temporal Temporal Temporal Pulse Rate (60-100) 87 90 87 Pulse Location Monitor Monitor Monitor Respiratory Rate (12-18) 20 H 16 16 Respiratory rate source Observation Observation Observation Oxygen Delivery Method Room Air Room Air Blood Pressure (90/60-120/80) 107/66 125/33 H 137/76 H Blood Pressure Mean (mm Hg) 79 63 96 Source Monitor Monitor Monitor Position Sitting Sitting Blood Pressure Location Left Forearm Right Arm History Since Last Visit- (Skip if this is Patient's initial visit) Have you changed medications since your No No Yes last visit? Any new allergies or adverse reactions No No No Had a fall/change in ADL's that may No No No increase risk of falls Signs or symptoms of abuse and/or No No No neglect since last visit Have you been in the hospital since your No No No last visit? Has dressing in place as prescribed No Yes Yes Has compression in place as prescribed N/A N/A N/A Has offloadiing in place as prescribed Yes N/A N/A Experienced any changes in pain level or No No No management Left Footwear Regular Shoe Regular Shoe Right Footwear Regular Shoe Regular Shoe Pain Scale: 0-10 Numeric Is Patient Pain Free? Yes Yes Yes WC - Nurse 1 - General Ulcer Measurement Start: 12/05/20 11:10 Freq: Status: Active Protocol: Activity Type Activity Date Activity User E-Sign Co-Sign Detail Recorded Client Recorded Date Recorded By Document 12/05/20 11:12 DL [id number] 12/05/20 11:20 DL Document 12/12/20 11:35 [facility] [id number] 12/12/20 11:46 BMF Document 12/19/20 11:01 [facility] Desktop 12/19/20 11:09 BMF 12/05/20 12/12/20 12/19/20 11:12 11:35 11:01 Wound Center Nurse 1 #2- L LATERAL FOOT -Combined with other wound No No -Current Size (cm) - Length 0.1 0.1 0.1 -Current Size (cm) - Width 0.1 0.1 0.1 -Current Size (cm) - Depth 0.1 0.1 0.1 -Total Square Cm 0.01 0.01 0.01 -Photo Taken No No -Epithelialization None Present -Tunneling No -Undermining/Tunneling No -Circular Undermining No -Exudate Amt Medium None Present -Exudate Type Serosanguineous -Wound Margin Distinct, Outline Attached -Granulation Amt Medium (34-66%) None Present (0 %) -Granulation Quality Red -Slough/Fibrin Yes -Necrosis Amt Medium (34-66%) Large (67-100%) -Necrotic Tissue Type Adherent Slough Adherent Slough -Structure Exposed N/A -Texture (Stacy-wound Skin Appearance) Scarring Assessed, Assessed Scarring -Moisture (Stacy-wound Skin Appearance) No Abnormality Assessed Assessed -Color (Stacy-wound Skin Appearance) No Abnormality Assessed Assessed -Temperature (Stacy-wound Skin No Abnormality No Abnormality Appearance) (Pt Warm) (Pt Warm) -Tenderness on Palpation (Stacy-wound No No Skin Appearance) -Ulcer Cleansing Rinsed/ soapy water Irrigated with Saline -Foul Odor after Cleansing No No -Anesthetic Used 5% Lidocaine Gel #1- L LATERAL HEEL -Combined with other wound No No -Current Size (cm) - Length 0.1 4.9 0.1 -Current Size (cm) - Width 0.1 1.6 0.1 -Current Size (cm) - Depth 0.1 0.5 0.1 -Total Square Cm 0.01 7.84 0.01 -Photo Taken No No -Epithelialization None Present -Tunneling No -Undermining/Tunneling Yes -Undermining/Tunneling Starts (O'clock 1 ) -Undermining/Tunneling Ends (O'clock) 4 -Maximum Distance (cm) 0.5 -Circular Undermining No -Exudate Amt Medium Medium -Exudate Type Serosanguineous Serosanguineous -Wound Margin Distinct, Distinct, Outline Outline Attached Attached -Granulation Amt Medium (34-66%) Small (1-33%) -Granulation Quality Red Red -Slough/Fibrin Yes -Necrosis Amt Medium (34-66%) Large (67-100%) -Necrotic Tissue Type Adherent Slough Adherent Slough -Structure Exposed N/A -Texture (Satcy-wound Skin Appearance) Scarring Assessed, Assessed, Scarring Scarring -Moisture (Stacy-wound Skin Appearance) Dry/Scaly Assessed Assessed, Maceration,Dry/ Scaly -Color (Stacy-wound Skin Appearance) No Abnormality Assessed Assessed, Erythema -Temperature (Stacy-wound Skin No Abnormality No Abnormality Appearance) (Pt Warm) (Pt Warm) -Tenderness on Palpation (Stacy-wound No No Skin Appearance) -Ulcer Cleansing Wound Cleanser soapy water -Foul Odor after Cleansing No No -Anesthetic Used 5% Lidocaine Gel WC - Nurse 2 - General Ulcer CM Notes Start: 12/05/20 11:10 Freq: Status: Active Protocol: Activity Type Activity Date Activity User E-Sign Co-Sign Detail Recorded Client Recorded Date Recorded By Document 12/05/20 11:33 [id number] 12/05/20 11:36 Document 12/12/20 12:07 [id number] 12/12/20 12:13 Document 12/19/20 11:37 [id number] 12/19/20 11:41 12/05/20 12/12/20 12/19/20 11:33 12:07 11:37 Wound Center Nurse 2 #2- L LATERAL FOOT -Time 12:07 11:38 -Correct Patient No Yes Yes -Correct Side, Site, Position No Yes Yes -Correct Procedure No Yes Yes -Procedure Performed No Yes Yes -Type of Procedure Debridement Debridement -Clinical Debridement Subcutaneous Subcutaneous -Tissue Removed Subcutaneous, Subcutaneous Biofilm -Post Debridement (cm) - Length 0.6 0.1 -Post Debridement (cm) - Width 0.4 0.1 -Post Debridement (cm) - Depth 0.1 0.1 -Total Square (Post) (cm) 0.24 0.01 -Area of Debridement (cm) - Length 0.6 0.1 -Area of Debridement (cm) - Width 0.4 0.1 -Total Square (Area) (cm) 0.24 0.01 -Tunneling No No -Undermining/Tunneling No No -Circular Undermining No No -Wound/Ulcer Outcome Not Healed Not Healed Not Healed -Ulcer Cleansing Rinsed/ Rinsed/ Irrigated with Irrigated with Saline Saline -Foul Odor after Cleansing No No -Bioengineered Tissue Yes Yes -Type of Bioengineered Tissue Theraskin Theraskin -Expiration Date 03/17/24 03/19/24 -Product Lot Number [id number] -Percent Used 100 100 -Lot number of Saline Used [id number] -Bleeding Controlled with Pressure Pressure -Offloading Yes Yes -Type of Offloading Surgical Shoe Surgical Shoe -Treatment Response Procedure Procedure Tolerated Well Tolerated Well -Debridement - Subq, 1st 20sq cm Yes Yes -Apply Skin Sub - 1st 25 sq cm - Feet 0 -Apply Skin Sub - each addt'l 25 sq cm 0 - Feet -Theraskin (per sq cm) 0 0 #1- L LATERAL HEEL -Time 12:11 11:39 -Correct Patient No Yes Yes -Correct Side, Site, Position No Yes Yes -Correct Procedure No Yes Yes -Procedure Performed No Yes Yes -Type of Procedure Debridement Debridement -Clinical Debridement Subcutaneous Subcutaneous -Tissue Removed Subcutaneous Subcutaneous -Post Debridement (cm) - Length 1.9 4.6 -Post Debridement (cm) - Width 4.5 1.5 -Post Debridement (cm) - Depth 0.3 0.2 -Total Square (Post) (cm) 8.55 6.90 -Area of Debridement (cm) - Length 1.9 4.6 -Area of Debridement (cm) - Width 4.5 1.5 -Total Square (Area) (cm) 8.55 6.90 -Tunneling No No -Undermining/Tunneling No No -Circular Undermining No No -Wound/Ulcer Outcome Not Healed Not Healed Not Healed -Ulcer Cleansing Rinsed/ Irrigated with Saline -Foul Odor after Cleansing No -Bioengineered Tissue No Yes -Type of Bioengineered Tissue Theraskin Theraskin -Expiration Date 03/17/24 03/19/24 -Product Lot Number [id number] -Percent Used 100 100 -Lot number of Saline Used [id number] -Bleeding Controlled with Pressure Pressure -Offloading Yes Yes -Type of Offloading Surgical Shoe Surgical Shoe -Treatment Response Procedure Procedure Tolerated Well Tolerated Well -Debridement - Subq, 1st 20sq cm No No -Apply Skin Sub - 1st 25 sq cm - Feet 1 1 -Theraskin (per sq cm) 13 13 Pain Scale: 0-10 Numeric Is Patient Pain Free? Yes Yes Yes WC - Nurse 3 - General Ulcer D/C NN Start: 05/04/21 11:10 Freq: Status: Active Protocol: Activity Type Activity Date Activity User E-Sign Co-Sign Detail Recorded Client Recorded Date Recorded By Document 12/05/20 11:36 [id number] 12/05/20 11:37 Document 12/12/20 12:20 JF [id number] 12/12/20 12:20 JF Document 12/19/20 11:48 [id number] 12/19/20 11:49 12/05/20 12/12/20 12/19/20 11:36 12:20 11:48 Wound Care Nurse 3 #2- L LATERAL FOOT -Ulcer Cleansing Rinsed/ Rinsed/ Rinsed/ Irrigated with Irrigated with Irrigated with Saline Saline Saline -Foul Odor after Cleansing No No -Primary Dressing Covered/Secured with Dry Gauze & Dry Gauze & Dry Gauze,Dry Roll Gauze, Roll Gauze, Gauze & Roll Secured with Secured with Gauze,Secured Tape Tape with Tape #1- L LATERAL HEEL -Ulcer Cleansing Rinsed/ Rinsed/ Rinsed/ Irrigated with Irrigated with Irrigated with Saline Saline Saline -Foul Odor after Cleansing No No No -Primary Dressing Covered/Secured with Dry Gauze & Dry Gauze & Dry Gauze, Roll Gauze, Roll Gauze, Secured with Secured with Secured with Tape Tape Tape Pain Scale: 0-10 Numeric Is Patient Pain Free? Yes Yes Yes WC - Visit Discharge Discharge Condition Stable Stable Stable Ambulatory Status Ambulatory Ambulatory Ambulatory Transportation Private Auto Private Auto Private Auto Accompanied by Medication Reconcilliation completed & Yes Yes Yes provided to patient/care provider Clinical Summary of Care Provided Yes Yes Yes Wound debrided: Lateral foot Laterality: Left Wound Grade/Stage: Barker 1 Type of Debridement: Excisional debridement Anesthesia Used: 4% Lidocaine Solution Depth: in the subcutaneous layer Percentage of wound debrided: 100 Instrument Used: 3mm curette Tissue Removed: includes fibrous, devitalized, biofilm, callus and slough tissue Severity: Fat Layer Exposed Amount of bleeding with debridement: Mild Bleeding Controlled with: Pressure Patient tolerated procedure: Patient tolerated procedure well Additional Wound Wound debrided: Lateral heel Laterality: Left Wound Grade/Stage: Barker 3 Type of Debridement: Excisional debridement Anesthesia Used: 4% Lidocaine Solution Depth: in the subcutaneous layer Percentage of wound debrided: 100 Instrument Used: 3mm curette Tissue Removed: Includes fibrous, devitalized, biofilm, callus and slough tissue Severity: Fat Layer Exposed Amount of bleeding with debridement: Mild Bleeding Controlled with: Pressure Patient tolerated procedure: Patient tolerated procedure well
[2020-12-26 11:10] VITALS: BP 116/65; PULSE 78; RESP 18; TEMP 36.3; BMI 23.0
--- NOTE | 2020-12-26 11:57 | PN.PCM_ITS ---
History of Present Illness Date of Service: 12/26/20 Chief Complaint: Left heel and lateral foot ulcerations osteomyelitis Peripheral vascular disease History of Wound: Patient is a 75-year-old male who presents to the wound care center after being seen in office by Dr. Pelaez [facility] for chronic left foot wound. 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 He also has had left posterior heel ulceration. Patient had an angioplasty intervention with Dr. Jeff on 08/15/20. Patient had another intervention 09/20/20. Patient has a history of peripheral vascular disease and has had surgical intervention in the past. Patient states that he has an offloading boot that he kicks his way out of and wakes him up at night. Patient has not found any other method of offloading to assist during sleeping. Patient has elevated the foot on pillows when sitting in chairs to offload the heel. Patient also has an offloading heel cut out surgical shoe she only wears when he is out of the house. When he is in the house patient states that he goes barefoot. Patient had MRI obtained 10/20/2020 demonstrating a large open wound is present in the lateral posterior and plantar aspect of the calcaneal process with associated mild cortical thinning and mild to moderate underlying edema due to active osteomyelitis. Patient followed up with Dr. Garnett per he was started on oral antibiotics to manage the osteomyelitis. Patient is currently taking doxycycline, cefadroxil and Flagyl 42 days. Patient has since finished this course of treatment. Progress of Wound: Wound is stable underneath wound veil and Steri-Strips without signs of infection Subjective Subjective Patient seen and examined resting comfortably. Patient denies any new pedal complaints. Patient denies any nausea, fever, chills, chest pain, shortness of breath, cough, streaking, purulence, vomiting. Objective Data Objective Data Vital Signs: Vital Signs Temp Pulse Resp BP 97.4 F L 78 18 116/65 12/26/20 11:10 12/26/20 11:10 12/26/20 11:10 12/26/20 11:10 Oxygen Delivery Method Room Air Weight: 79.379 kg Body Mass Index (BMI) 23.0 Physical Exam Const alert and no apparent distress General Appearance: cooperative and comfortable Lymph Lymphatic: no lymphedema noted Resp normal respiratory effort Effort and Inspection: able to speak in complete sentences Extremity normal capillary refill, no calf tenderness and no pedal edema General Extremity: no tenderness to palpation of joints or extremities; Negative for clubbing or cyanosis Peripheral Pulses: Yes posterior tibial pulses present left 2+ and dorsalis pedis pulses present left 1+ Skin General Skin Exam: Negative for ecchymosis, erythema, eschar, pallor or dermatitis Rashes: no rashes Wounds: wounds noted Wound Narrative: Left lateral heel and lateral forefoot ulcerations. Ulcer sites are stable with no signs of infection noted. The wound veil and Steri-Strips are clean dry and intact. Some serous drainage noted to heel wound Transmetatarsal amputation noted to left foot. Neuro Gait (Neuro): antalgic Sensory Exam: extremities light-touch: decreased Motor Exam: strength 5/5 throughout Psych Appearance: appropriate Attitude: calm Debridement Note Debridement Note Post-Debridement Measurements and Additional Note: Post-Debridement Measurements/Treatment - Nurse 1 - General Ulcer Assessment Start: 12/05/20 11:10 Freq: Status: Active Protocol: YANNI Activity Type Activity Date Activity User E-Sign Co-Sign Detail Recorded Client Recorded Date Recorded By Document 12/05/20 11:12 DL [id number] 12/05/20 11:20 DL Document 12/12/20 11:35 [facility] [id number] 12/12/20 11:46 [facility] Document 12/19/20 11:01 [facility] Desktop 12/19/20 11:09 [facility] Document 12/26/20 11:10 [facility] [id number] 12/26/20 11:19 [facility] 12/05/20 12/12/20 12/19/20 11:12 11:35 11:01 - Today's Visit Information Type of service Follow-up Visit Follow-up Visit Follow-up Visit (Physician/MARKETING ANALYTICS SPECIALIST (Physician/MARKETING ANALYTICS SPECIALIST (Physician/MARKETING ANALYTICS SPECIALIST ) ) ) Arrival Mode Ambulatory Ambulatory Ambulatory Transfer Assistance None None None Accompanied by Patient Identification Verified (Name & Yes Yes Yes ) Patient Requires Transmission-Based No No No Precautions Finger Stick Blood Sugar(mg/dl) (if 139 indicated): Blood Sugar Stated by Patient Height and Weight Body Mass Index (BMI) 23.0 23.0 23.0 BMI Classification Normal Normal Normal Vital Signs Temperature (97.8 F-99.1 F) 98.6 F 98.4 F 96.3 F L Temperature Source Temporal Temporal Temporal Pulse Rate (60-100) 87 90 87 Pulse Location Monitor Monitor Monitor Respiratory Rate (12-18) 20 H 16 16 Respiratory rate source Observation Observation Observation Oxygen Delivery Method Room Air Room Air Blood Pressure (90/60-120/80) 107/66 125/33 H 137/76 H Blood Pressure Mean (mm Hg) 79 63 96 Source Monitor Monitor Monitor Position Sitting Sitting Blood Pressure Location Left Forearm Right Arm Comment History Since Last Visit- (Skip if this is Patient's initial visit) Have you changed medications since your No No Yes last visit? Any new allergies or adverse reactions No No No Had a fall/change in ADL's that may No No No increase risk of falls Signs or symptoms of abuse and/or No No No neglect since last visit Have you been in the hospital since your No No No last visit? Has dressing in place as prescribed No Yes Yes Has compression in place as prescribed N/A N/A N/A Has offloadiing in place as prescribed Yes N/A N/A Experienced any changes in pain level or No No No management Left Footwear Regular Shoe Regular Shoe Right Footwear Regular Shoe Regular Shoe Pain Scale: 0-10 Numeric Is Patient Pain Free? Yes Yes Yes 12/26/20 11:10 WC - Today's Visit Information Type of service Follow-up Visit (Physician/MARKETING ANALYTICS SPECIALIST ) Arrival Mode Ambulatory Transfer Assistance None Accompanied by Patient Identification Verified (Name & Yes ) Patient Requires Transmission-Based No Precautions Finger Stick Blood Sugar(mg/dl) (if indicated): Blood Sugar Height and Weight Body Mass Index (BMI) 23.0 BMI Classification Normal Vital Signs Temperature (97.8 F-99.1 F) 97.4 F L Temperature Source Temporal Pulse Rate (60-100) 78 Pulse Location Monitor Respiratory Rate (12-18) 18 Respiratory rate source Observation Oxygen Delivery Method Room Air Blood Pressure (90/60-120/80) 116/65 Blood Pressure Mean (mm Hg) 82 Source Monitor Position Sitting Blood Pressure Location Right Arm Comment Grafts left inplace History Since Last Visit- (Skip if this is Patient's initial visit) Have you changed medications since your No last visit? Any new allergies or adverse reactions No Had a fall/change in ADL's that may No increase risk of falls Signs or symptoms of abuse and/or No neglect since last visit Have you been in the hospital since your No last visit? Has dressing in place as prescribed Yes Has compression in place as prescribed N/A Has offloadiing in place as prescribed N/A Experienced any changes in pain level or No management Left Footwear Regular Shoe Right Footwear Regular Shoe Pain Scale: 0-10 Numeric Is Patient Pain Free? Yes WC - Nurse 1 - General Ulcer Measurement Start: 12/05/20 11:10 Freq: Status: Active Protocol: Activity Type Activity Date Activity User E-Sign Co-Sign Detail Recorded Client Recorded Date Recorded By Document 12/05/20 11:12 DL [id number] 12/05/20 11:20 DL Document 12/12/20 11:35 BM [id number] 12/12/20 11:46 [facility] Document 12/19/20 11:01 [facility] Desktop 12/19/20 11:09 [facility] Document 12/26/20 11:10 F [id number] 12/26/20 11:19 BMF 12/05/20 12/12/20 12/19/20 11:12 11:35 11:01 Wound Center Nurse 1 #2- L LATERAL FOOT -Combined with other wound No No -Current Size (cm) - Length 0.1 0.1 0.1 -Current Size (cm) - Width 0.1 0.1 0.1 -Current Size (cm) - Depth 0.1 0.1 0.1 -Total Square Cm 0.01 0.01 0.01 -Photo Taken No No -Epithelialization None Present -Tunneling No -Undermining/Tunneling No -Circular Undermining No -Exudate Amt Medium None Present -Exudate Type Serosanguineous -Wound Margin Distinct, Outline Attached -Granulation Amt Medium (34-66%) None Present (0 %) -Granulation Quality Red -Slough/Fibrin Yes -Necrosis Amt Medium (34-66%) Large (67-100%) -Necrotic Tissue Type Adherent Slough Adherent Slough -Structure Exposed N/A -Texture (Stacy-wound Skin Appearance) Scarring Assessed, Assessed Scarring -Moisture (Stacy-wound Skin Appearance) No Abnormality Assessed Assessed -Color (Stacy-wound Skin Appearance) No Abnormality Assessed Assessed -Temperature (Stacy-wound Skin No Abnormality No Abnormality Appearance) (Pt Warm) (Pt Warm) -Tenderness on Palpation (Stacy-wound No No Skin Appearance) -Ulcer Cleansing Rinsed/ soapy water Irrigated with Saline -Foul Odor after Cleansing No No -Anesthetic Used 5% Lidocaine Gel #1- L LATERAL HEEL -Combined with other wound No No -Current Size (cm) - Length 0.1 4.9 0.1 -Current Size (cm) - Width 0.1 1.6 0.1 -Current Size (cm) - Depth 0.1 0.5 0.1 -Total Square Cm 0.01 7.84 0.01 -Photo Taken No No -Epithelialization None Present -Tunneling No -Undermining/Tunneling Yes -Undermining/Tunneling Starts (O'clock 1 ) -Undermining/Tunneling Ends (O'clock) 4 -Maximum Distance (cm) 0.5 -Circular Undermining No -Exudate Amt Medium Medium -Exudate Type Serosanguineous Serosanguineous -Wound Margin Distinct, Distinct, Outline Outline Attached Attached -Granulation Amt Medium (34-66%) Small (1-33%) -Granulation Quality Red Red -Slough/Fibrin Yes -Necrosis Amt Medium (34-66%) Large (67-100%) -Necrotic Tissue Type Adherent Slough Adherent Slough -Structure Exposed N/A -Texture (Stacy-wound Skin Appearance) Scarring Assessed, Assessed, Scarring Scarring -Moisture (Stacy-wound Skin Appearance) Dry/Scaly Assessed Assessed, Maceration,Dry/ Scaly -Color (Stacy-wound Skin Appearance) No Abnormality Assessed Assessed, Erythema -Temperature (Stacy-wound Skin No Abnormality No Abnormality Appearance) (Pt Warm) (Pt Warm) -Tenderness on Palpation (Stacy-wound No No Skin Appearance) -Ulcer Cleansing Wound Cleanser soapy water -Foul Odor after Cleansing No No -Anesthetic Used 5% Lidocaine Gel 12/26/20 11:10 Wound Center Nurse 1 #2- L LATERAL FOOT -Combined with other wound -Current Size (cm) - Length 0.1 -Current Size (cm) - Width 0.1 -Current Size (cm) - Depth 0.1 -Total Square Cm 0.01 -Photo Taken No -Epithelialization -Tunneling -Undermining/Tunneling -Circular Undermining -Exudate Amt None Present -Exudate Type -Wound Margin -Granulation Amt -Granulation Quality -Slough/Fibrin -Necrosis Amt -Necrotic Tissue Type -Structure Exposed -Texture (Stacy-wound Skin Appearance) No Abnormality -Moisture (Stacy-wound Skin Appearance) No Abnormality -Color (Stacy-wound Skin Appearance) No Abnormality -Temperature (Stacy-wound Skin No Abnormality Appearance) (Pt Warm) -Tenderness on Palpation (Stacy-wound No Skin Appearance) -Ulcer Cleansing Wound Cleanser -Foul Odor after Cleansing No -Anesthetic Used #1- L LATERAL HEEL -Combined with other wound -Current Size (cm) - Length 0.1 -Current Size (cm) - Width 0.1 -Current Size (cm) - Depth 0.1 -Total Square Cm 0.01 -Photo Taken No -Epithelialization -Tunneling -Undermining/Tunneling -Undermining/Tunneling Starts (O'clock ) -Undermining/Tunneling Ends (O'clock) -Maximum Distance (cm) -Circular Undermining -Exudate Amt None Present -Exudate Type -Wound Margin -Granulation Amt -Granulation Quality -Slough/Fibrin -Necrosis Amt -Necrotic Tissue Type -Structure Exposed -Texture (Stacy-wound Skin Appearance) No Abnormality -Moisture (Stacy-wound Skin Appearance) No Abnormality -Color (Stacy-wound Skin Appearance) No Abnormality -Temperature (Stacy-wound Skin No Abnormality Appearance) (Pt Warm) -Tenderness on Palpation (Stacy-wound No Skin Appearance) -Ulcer Cleansing Wound Cleanser -Foul Odor after Cleansing No -Anesthetic Used 4% Lidocaine Solution WC - Nurse 2 - General Ulcer CM Notes Start: 12/05/20 11:10 Freq: Status: Active Protocol: Activity Type Activity Date Activity User E-Sign Co-Sign Detail Recorded Client Recorded Date Recorded By Document 12/05/20 11:33 [id number] 12/05/20 11:36 Document 12/12/20 12:07 [id number] 12/12/20 12:13 Document 12/19/20 11:37 [id number] 12/19/20 11:41 Document 12/26/20 11:24 [id number] 12/26/20 11:25 12/05/20 12/12/20 12/19/20 11:33 12:07 11:37 Wound Center Nurse 2 #2- L LATERAL FOOT -Time 12:07 11:38 -Correct Patient No Yes Yes -Correct Side, Site, Position No Yes Yes -Correct Procedure No Yes Yes -Procedure Performed No Yes Yes -Type of Procedure Debridement Debridement -Clinical Debridement Subcutaneous Subcutaneous -Tissue Removed Subcutaneous, Subcutaneous Biofilm -Post Debridement (cm) - Length 0.6 0.1 -Post Debridement (cm) - Width 0.4 0.1 -Post Debridement (cm) - Depth 0.1 0.1 -Total Square (Post) (cm) 0.24 0.01 -Area of Debridement (cm) - Length 0.6 0.1 -Area of Debridement (cm) - Width 0.4 0.1 -Total Square (Area) (cm) 0.24 0.01 -Tunneling No No -Undermining/Tunneling No No -Circular Undermining No No -Wound/Ulcer Outcome Not Healed Not Healed Not Healed -Ulcer Cleansing Rinsed/ Rinsed/ Irrigated with Irrigated with Saline Saline -Foul Odor after Cleansing No No -Bioengineered Tissue Yes Yes -Type of Bioengineered Tissue Theraskin Theraskin -Expiration Date 03/17/24 03/19/24 -Product Lot Number [id number] -Percent Used 100 100 -Lot number of Saline Used [id number] -Bleeding Controlled with Pressure Pressure -Offloading Yes Yes -Type of Offloading Surgical Shoe Surgical Shoe -Treatment Response Procedure Procedure Tolerated Well Tolerated Well -Debridement - Subq, 1st 20sq cm Yes Yes -Apply Skin Sub - 1st 25 sq cm - Feet 0 -Apply Skin Sub - each addt'l 25 sq cm 0 - Feet -Theraskin (per sq cm) 0 0 #1- L LATERAL HEEL -Time 12:11 11:39 -Correct Patient No Yes Yes -Correct Side, Site, Position No Yes Yes -Correct Procedure No Yes Yes -Procedure Performed No Yes Yes -Type of Procedure Debridement Debridement -Clinical Debridement Subcutaneous Subcutaneous -Tissue Removed Subcutaneous Subcutaneous -Post Debridement (cm) - Length 1.9 4.6 -Post Debridement (cm) - Width 4.5 1.5 -Post Debridement (cm) - Depth 0.3 0.2 -Total Square (Post) (cm) 8.55 6.90 -Area of Debridement (cm) - Length 1.9 4.6 -Area of Debridement (cm) - Width 4.5 1.5 -Total Square (Area) (cm) 8.55 6.90 -Tunneling No No -Undermining/Tunneling No No -Circular Undermining No No -Wound/Ulcer Outcome Not Healed Not Healed Not Healed -Ulcer Cleansing Rinsed/ Irrigated with Saline -Foul Odor after Cleansing No -Bioengineered Tissue No Yes -Type of Bioengineered Tissue Theraskin Theraskin -Expiration Date 03/17/24 03/19/24 -Product Lot Number [id number] -Percent Used 100 100 -Lot number of Saline Used [id number] -Bleeding Controlled with Pressure Pressure -Offloading Yes Yes -Type of Offloading Surgical Shoe Surgical Shoe -Treatment Response Procedure Procedure Tolerated Well Tolerated Well -Debridement - Subq, 1st 20sq cm No No -Apply Skin Sub - 1st 25 sq cm - Feet 1 1 -Theraskin (per sq cm) 13 13 Pain Scale: 0-10 Numeric Is Patient Pain Free? Yes Yes Yes 12/26/20 11:24 Wound Center Nurse 2 #2- L LATERAL FOOT -Time -Correct Patient No -Correct Side, Site, Position No -Correct Procedure No -Procedure Performed No -Type of Procedure -Clinical Debridement -Tissue Removed -Post Debridement (cm) - Length -Post Debridement (cm) - Width -Post Debridement (cm) - Depth -Total Square (Post) (cm) -Area of Debridement (cm) - Length -Area of Debridement (cm) - Width -Total Square (Area) (cm) -Tunneling -Undermining/Tunneling -Circular Undermining -Wound/Ulcer Outcome Not Healed -Ulcer Cleansing -Foul Odor after Cleansing -Bioengineered Tissue -Type of Bioengineered Tissue -Expiration Date -Product Lot Number -Percent Used -Lot number of Saline Used -Bleeding Controlled with -Offloading -Type of Offloading -Treatment Response -Debridement - Subq, 1st 20sq cm -Apply Skin Sub - 1st 25 sq cm - Feet -Apply Skin Sub - each addt'l 25 sq cm - Feet -Theraskin (per sq cm) #1- L LATERAL HEEL -Time -Correct Patient No -Correct Side, Site, Position No -Correct Procedure No -Procedure Performed No -Type of Procedure -Clinical Debridement -Tissue Removed -Post Debridement (cm) - Length -Post Debridement (cm) - Width -Post Debridement (cm) - Depth -Total Square (Post) (cm) -Area of Debridement (cm) - Length -Area of Debridement (cm) - Width -Total Square (Area) (cm) -Tunneling -Undermining/Tunneling -Circular Undermining -Wound/Ulcer Outcome Not Healed -Ulcer Cleansing -Foul Odor after Cleansing -Bioengineered Tissue -Type of Bioengineered Tissue -Expiration Date -Product Lot Number -Percent Used -Lot number of Saline Used -Bleeding Controlled with -Offloading -Type of Offloading -Treatment Response -Debridement - Subq, 1st 20sq cm -Apply Skin Sub - 1st 25 sq cm - Feet -Theraskin (per sq cm) Pain Scale: 0-10 Numeric Is Patient Pain Free? Yes - Nurse 3 - General Ulcer D/C NN Start: 12/05/20 11:10 Freq: Status: Active Protocol: Activity Type Activity Date Activity User E-Sign Co-Sign Detail Recorded Client Recorded Date Recorded By Document 12/05/20 11:36 [id number] 12/05/20 11:37 Document 12/12/20 12:20 [id number] 12/12/20 12:20 Document 12/19/20 11:48 [id number] 12/19/20 11:49 Document 12/26/20 11:26 [id number] 12/26/20 11:34 12/05/20 12/12/20 12/19/20 11:36 12:20 11:48 Wound Care Nurse 3 #2- L LATERAL FOOT -Ulcer Cleansing Rinsed/ Rinsed/ Rinsed/ Irrigated with Irrigated with Irrigated with Saline Saline Saline -Foul Odor after Cleansing No No -Primary Dressing Covered/Secured with Dry Gauze & Dry Gauze & Dry Gauze,Dry Roll Gauze, Roll Gauze, Gauze & Roll Secured with Secured with Gauze,Secured Tape Tape with Tape -Other Covering #1- L LATERAL HEEL -Ulcer Cleansing Rinsed/ Rinsed/ Rinsed/ Irrigated with Irrigated with Irrigated with Saline Saline Saline -Foul Odor after Cleansing No No No -Primary Dressing Covered/Secured with Dry Gauze & Dry Gauze & Dry Gauze, Roll Gauze, Roll Gauze, Secured with Secured with Secured with Tape Tape Tape Pain Scale: 0-10 Numeric Is Patient Pain Free? Yes Yes Yes WC - Visit Discharge Discharge Condition Stable Stable Stable Ambulatory Status Ambulatory Ambulatory Ambulatory Transportation Private Auto Private Auto Private Auto Accompanied by Medication Reconcilliation completed & Yes Yes Yes provided to patient/care provider Clinical Summary of Care Provided Yes Yes Yes 12/26/20 11:26 Wound Care Nurse 3 #2- L LATERAL FOOT -Ulcer Cleansing Rinsed/ Irrigated with Saline -Foul Odor after Cleansing No -Primary Dressing Covered/Secured with Dry Gauze & Roll Gauze, Secured with Tape,Other -Other Covering COTTON SOCK #1- L LATERAL HEEL -Ulcer Cleansing Rinsed/ Irrigated with Saline -Foul Odor after Cleansing No -Primary Dressing Covered/Secured with Dry Gauze & Roll Gauze, Secured with Tape Pain Scale: 0-10 Numeric Is Patient Pain Free? Yes WC - Visit Discharge Discharge Condition Stable Ambulatory Status Ambulatory Transportation Private Auto Accompanied by Medication Reconcilliation completed & Yes provided to patient/care provider Clinical Summary of Care Provided Yes Wound debrided: Left foot lateral and lateral heel No debridement was completed: No debridement was completed today (Skin substitute was left clean dry and intact) Assessment/Plan Assessment/Plan (1) Non-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: CODE(S): L97.422 - Non-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 (2) Non-pressure chronic ulcer of other part of left foot with fat layer exposed: CODE(S): L97.522 - Non-pressure chronic ulcer of other part of left foot with fat layer exposed (3) Type 2 diabetes mellitus with foot ulcer: CODE(S): E11.621 - Type 2 diabetes mellitus with foot ulcer; L97.509 - Non-pressure chronic ulcer of other part of unspecified foot with unspecified severity QUALIFIERS: Diabetes mellitus custodial insulin use: unspecified technician terminal and repeater insulin use status Qualified Code(s): E11.621 - Type 2 diabetes mellitus with foot ulcer; L97.509 - Non-pressure chronic ulcer of other part of unspecified foot with unspecified severity (4) Amputation at midfoot: CODE(S): S98.319A - Complete traumatic amputation of unspecified midfoot, initial encounter QUALIFIERS: Encounter type: subsequent encounter Laterality: left Qualified Code(s): S98.312D - Complete traumatic amputation of left midfoot, subsequent encounter (5) Peripheral vascular occlusive disease: CODE(S): I73.9 - Peripheral vascular disease, unspecified PLAN: Patient seen and examined. Foot is stable without signs of infection. Wound graft and overlying Steri- Strips and wound veil were left intact this week. Cultures from 10/03/20 showing Corynebacterium amycolatum, Staphylococcus aureus, Klebsiella pneumoniae, E. coli. Patient's creatinine clearance was 57 on 08/08/2020. On 10/24/2020 new cultures were obtained which were shown to grow Pseudomonas aerginosum, E. coli, Enterobacter cloacae, porhyromonas. Reviewed MRI from 10/20/2020 demonstrated acute osteomyelitis to the left calcaneus. Patient wishes to treat with antibiotics. Patient saw Dr. Garnett who started him on multiple oral antibiotics including Flagyl, doxycycline, Cefadrxil for 42 days. Patient has since finished this course of treatment Patient underwent vascular intervention on 08/15/[address] Jeff and again on 09/20/20. Patient has had previous surgical intervention with Dr. Jeff in the past as well. He had recent arterial studies on 06/13/20 showing monophasic waveforms and noncompressible bilateral PT and DP on the right with an left PAYAL of 0.78 on left. Discussed at length the importance of offloading with the patient in order to al low proper wound healing. Patient uses a walker. Patient states that he has an offloading shoe at home but is uncomfortable and twists when he tries to wear it while sleeping as he moves in his sleep. Patient does not wear it while sleeping. Discussed with patient the importance of his offloading suggested other alternative methods such as pillows or a doughnut offloading pad. Patient has no interest in this. Again the importance of offloading to allow ulcer to heal. Also discussed the importance of offloading when not sleeping such as in a chair with floating the heel with pillows. Patient also has a surgical shoe with cut out to offload the heel. Patient relates more comfort noted when wearing tennis shoes. He has been wearing those instead. Discussed with patient the importance of proper nutrition and blood sugar control to also aid in wound healing. Patient and educated on proper dressing changes. To change outer dressing only. Patient approved for TheraSkin graft application to the left heel and hydrogel to foot. All questions answered. Patient is to follow-up in 1 week. This note was generated with cdream network dictation software. It may contain incorrec t words, spelling, and punctuation that were not noted in checking the note before signing. The problems addressed require a low medical decision making level which includes two or more minor problems, a stable chronic illness, or an acute uncomplicated illness or injury.
== END 2021-01-01 23:59 ==
LOC: WC 11:00
PROVIDERS: PCP Family Medicine; Referring Provider Podiatrist; Visit Provider Podiatrist Foot & Ankle Surgery
DX: E11.621 Type 2 diabetes mellitus with foot ulcer (principal); L03.116 Cellulitis of left lower limb; L97.522 Non-pressure chronic ulcer of other part of left foot with fat layer exposed; L97.422 Non-pressure chronic ulcer of left heel and midfoot with fat layer exposed; E11.51 Type 2 diabetes mellitus with diabetic peripheral angiopathy without gangrene; E61.1 Iron deficiency; I48.0 Paroxysmal atrial fibrillation; S98.3 Traumatic amputation of midfoot; X58.XXXD Exposure to other specified factors, subsequent encounter; Z86.14 Personal history of Methicillin resistant Staphylococcus aureus infection
CPT/HCPCS: 11042; 15275; 99213; Q4121; G0463

== ENCOUNTER → 2021-01-03 14:15 | Outpatient (CLI) | payer MEDICARE, OTHER, SELFPAY ==
[2021-01-02 11:11] VITALS: BMI 23.0
[2021-01-03 17:43] LABS: Absolute Lymphocyte Count 1.29 X10^3/uL (0.83-4.51); Basophil# 0.03 X10^3/uL; Basophil% 0.4 % (0-1); Eosinophil# 0.08 X10^3/uL; Eosinophils% 1.1 % (0-5); Hematocrit 46.1 % (40-54); Hemoglobin 14.5 g/dL (13.0-16.5); Lymphocyte # 1.29 X10^3/ul (0.83-4.51); Lymphocyte % 18.4 % (19-41); Mean Corp Hgb Conc 31.5 g/dL (32-36); Mean Corpuscular Hgb 29.1 pg (27.0-32.0); Mean Corpuscular Volume 92.4 fL (80-94); Mean Platelet Vol. 9.7 fl (6.2-12.0); Monocyte# 0.58 X10^3/uL; Monocyte% 8.3 % (0-10); NRBC Flagged by Analyzer 0 % (0-5); Neutrophil # 5.02 X10^3/uL (2.7-7.7); Neutrophil % 71.5 % (47-70); Platelet Count 269 K/mm3 (150-450); RBC Distribution Width CV 12.6 % (11.6-14.6); RBC Distribution Width SD 42.6 fl (35.1-43.9); Red Blood Count 4.99 M/mm3 (4.6-6.2)
[2021-01-03 18:15] LABS: Ferritin 48 ng/mL (26-388); Iron 48 ug/dL (65-175); Iron Binding Capacity,Total 278 ug/dL (250-450)
== END ==
PROVIDERS: PCP Family Medicine; Referring Provider Family Medicine; Visit Provider Family Medicine
DX: E61.1 Iron deficiency (principal)
CPT/HCPCS: 36415; 82728; 83540; 83550; 85025

== ENCOUNTER → 2021-01-09 12:31 | Outpatient (CLI) | payer MEDICARE, OTHER, SELFPAY ==
[2021-01-02 11:11] VITALS: BMI 23.0
[2021-01-09 11:06] VITALS: BMI 23.0
--- NOTE | 2021-01-09 12:37 | NM_ITS ---
CLINICAL: 75-year-old diabetic male with reported history of early satiety SEMI-SOLID PHASE 99m Tc SULFUR COLLOID GASTRIC EMPTYING STUDY COMPARISON: None available FINDINGS: The patient was administered 1.0 mCi of 99m Tc sulfur colloid mixed with oatmeal and consumed per os. Image acquisitions in the anterior-posterior projections for a total of 60 minutes. There is prompt visualization of the stomach. No gastroesophageal reflux is defined. The raw data T ? emptying was calculated to be 13.94 minutes, (Normal: 12-56 minutes). 92% emptying and 8% retention are manifest at 60 minutes following meal completion. NM/Gastric Emptying Study IMPRESSION: 1. NORMAL 99m Tc sulfur colloid semi-solid phase (oatmeal) gastric emptying imaging examination. A. There is normal and preserved semi-solid phase gastric emptying compared to normal controls. (Leslie et al, J Nucl Med Tech 38: 186, 2010). Electronically Signed: Angel Dasilva DO at 8:12 EDT Tel , Service support ,
== END ==
PROVIDERS: PCP Family Medicine; Referring Provider Family Medicine; Visit Provider Family Medicine
DX: R68.81 Early satiety (principal)
CPT/HCPCS: 78264; 99213; A9541; G0463

== ENCOUNTER → 2021-01-25 09:41 | Outpatient (CLI) | payer MEDICARE, OTHER, SELFPAY ==
[2020-10-26 11:44] VITALS: BMI 23.0
[2021-01-23 10:59] VITALS: BMI 23.0
--- NOTE | 2021-01-25 09:47 | ART_ITS ---
Reason For Study: atherosclerosis, PAD Procedure A bilateral lower extremity continuous wave Doppler with analog waveform analysis and ankle brachial indexes. Left Segmental Pressures Left brachial= 129mmHg. Left posterior tibial artery = >255mmHg. Left dorsalis pedis artery = 177mmHg. Left digit = amputation mmHg. The left posterior tibial artery waveforms are biphasic. The left dorsalis pedis waveforms are monophasic. Right Segmental Pressures Right brachial= 128mmHg. Right posterior tibial artery = >255mmHg. Right dorsalis pedis artery = >255mmHg. Right digit = 163 mmHg. The right posterior tibial artery waveforms are biphasic. The right dorsalis pedis waveforms are triphasic. Indices The right ankle brachial index by the dorsalis pedis is -NC-. The right ankle brachial index by the posterior tibial artery is -NC-. The right digital-brachial index is 1.26. The left ankle brachial index by the dorsalis pedis is 1.37. The left ankle brachial index by the posterior tibial artery is -NC-. The left digital-brachial index is AMPUTATION. VL/Ankle Brachial Index Interpretation Summary Bilateral lower extremities with noncompressibility noted at the ankle. Right l eg with triphasic flow noted. Left leg with biphasic flow noted an PAYAL at the dorsalis pedis of 1 .37. Digit brachial index on the right of 1.26. Ordering Physician: Nikita Jeff Referring Physician: Jerry Dee Performed By: Bre Ryan RVT, RDCS and Student
--- NOTE | 2021-01-25 09:47 | ADUL_ITS ---
Reason For Study: ATHEROSCLEROSIS OF BILATERAL LEGS Left Velocities Ext Iliac Artery, dist = 48.9 cm./sec. Common Femoral Artery, dist = 57.7 cm./sec. Supf. Femoral Artery, prox = 75.7 cm./sec. Supf. Femoral Artery, mid = 52.3 cm./sec. Supf. Femoral Artery, dist = 49.0 cm./sec. Profunda Femoral Artery = 55.9 cm./sec. Popliteal Artery, proximal, = 65.5 cm./sec. Popliteal Artery, mid = 128.6 cm./sec. Popliteal Artery, distal = 59.0 cm./sec. Post. Tibial Artery, prox = 36.3 cm./sec. Post Tibial Artery, mid = 92.9 cm./sec. Post Tibial Artery, dist. = 116.1 cm./sec. Peroneal Artery, prox = 64.8 cm./sec. Peroneal Artery, mid = 77.6 cm./sec. Peroneal Artery,dist. = 66.6 cm./sec. Ant.Tibial Artery, prox = 44.6 cm./sec. Ant Tibial Artery, mid = 21.7 cm./sec. Ant. Tibial Artery, distal = 39.2 cm./sec. VL/US Art Duplex Unilat Lower Ext Interpretation Summary Left lower extremity with no significant stenosis visualized throughout. Appear s to be more biphasic but possible triphasic flow at the anterior tibial artery. Ordering Physician: Nikita Jeff Referring Physician: Jerry Dee Performed By: Bre Ryan RVT, RDCS and Student
== END ==
PROVIDERS: PCP Family Medicine; Referring Provider Surgery Vascular Surgery; Visit Provider Surgery Vascular Surgery
DX: I70.213 Atherosclerosis of native arteries of extremities with intermittent claudication, bilateral legs (principal); R56.9 Unspecified convulsions; I51.9 Heart disease, unspecified; E78.70 Disorder of bile acid and cholesterol metabolism, unspecified; E11.9 Type 2 diabetes mellitus without complications; I10 Essential (primary) hypertension
CPT/HCPCS: 93922; 93926

== ENCOUNTER 2021-01-30 11:00 | Outpatient (RCR) | payer MEDICARE, OTHER, SELFPAY ==
[2021-01-02 00:25] VITALS: BP 116/65; PULSE 78; RESP 18; TEMP 36.3
[2021-01-02 11:11] VITALS: BP 99/60; PULSE 94; RESP 16; TEMP 36; BMI 23.0
--- NOTE | 2021-01-02 12:29 | PN.PCM_ITS ---
History of Present Illness Date of Service: 01/02/21 Chief Complaint: Left heel and lateral foot ulcerations osteomyelitis Peripheral vascular disease History of Wound: Patient is a 75-year-old male who presents to the wound care center after being seen in office by Dr. Pelaez [facility] for chronic left foot wound. 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 He also has had left posterior heel ulceration. Patient had an angioplasty intervention with Dr. Jeff on 08/15/20. Patient had another intervention 09/20/20. Patient has a history of peripheral vascular disease and has had surgical intervention in the past. Patient states that he has an offloading boot that he kicks his way out of and wakes him up at night. Patient has not found any other method of offloading to assist during sleeping. Patient has elevated the foot on pillows when sitting in chairs to offload the heel. Patient also has an offloading heel cut out surgical shoe she only wears when he is out of the house. When he is in the house patient states that he goes barefoot. Patient had MRI obtained 10/20/2020 demonstrating a large open wound is present in the lateral posterior and plantar aspect of the calcaneal process with associated mild cortical thinning and mild to moderate underlying edema due to active osteomyelitis. Patient followed up with Dr. Garnett per he was started on oral antibiotics to manage the osteomyelitis. Patient is currently taking doxycycline, cefadroxil and Flagyl 42 days. Patient has since finished this course of treatment. Progress of Wound: Improved with healing of lateral foot wound lateral heel wound remains Subjective Subjective Patient seen and examined resting comfortably. Patient denies any new pedal complaints. Patient denies any nausea, fever, chills, chest pain, shortness of breath, cough, streaking, purulence, vomiting. Patient relates pain has resol maria del carmen. Objective Data Objective Data Vital Signs: Vital Signs Temp Pulse Resp BP 96.8 F L 94 16 99/60 01/02/21 11:11 01/02/21 11:11 01/02/21 11:11 01/02/21 11:11 Oxygen Delivery Method Room Air Weight: 79.379 kg Body Mass Index (BMI) 23.0 Physical Exam Narrative Const alert and no apparent distress General Appearance: cooperative and comfortable Lymph Lymphatic: no lymphedema noted Resp normal respiratory effort Effort and Inspection: able to speak in complete sentences Extremity no calf tenderness, negative rambo and gipson sign no lower extremity edema General Extremity: no tenderness to palpation of joints or extremities; Negative for clubbing or cyanosis or ecchymosis or erythema Vasc Peripheral Pulses:posterior tibial pulses present but diminished and dorsalis pedis pulses present but diminished, normal capillary refill, no acute ischemic skin changes noted, normal temperature Skin General Skin Exam: dry skin, decreased hair growth noted; Negative for ecchymosis, eschar, pallor, rashes Wound Narrative: Left lateral heel ulceration. No malodor, erythema, purulence, probing to bone, streaking, fluctuation, crepitus, or other signs of infection. Skin is atrophic and hairless. Wound is noted to have healthy granular base with healthy bleeding noted. There are some callus buildup noted to the plantar aspect of the wound. Left lateral foot ulceration noted to have healed Left TMA noted Neuro Gait (Neuro): heel to toe Sensory Exam: extremities light-touch: decreased MSK Motor Exam: strength 5/5 throughout, ROM to foot and ankle joints within normal limits Psych Appearance: appropriate Attitude: calm Debridement Note Debridement Note Post-Debridement Measurements and Additional Note: Post-Debridement Measurements/Treatment - Nurse 1 - General Ulcer Assessment Start: 01/02/21 11:11 Freq: Status: Active Protocol: YANNI Activity Type Activity Date Activity User E-Sign Co-Sign Detail Recorded Client Recorded Date Recorded By Document 01/02/21 11:11 Desktop 01/02/21 11:23 01/02/21 11:11 - Today's Visit Information Type of service Follow-up Visit (Physician/[employer]ER ) Arrival Mode Ambulatory Transfer Assistance None Accompanied by Patient Identification Verified (Name & Yes ) Patient Requires Transmission-Based No Precautions Safety Precautions NA Height and Weight Body Mass Index (BMI) 23.0 BMI Classification Normal Vital Signs Temperature (97.8 F-99.1 F) 96.8 F L Temperature Source Temporal Pulse Rate (60-100) 94 Pulse Location Monitor Respiratory Rate (12-18) 16 Respiratory rate source Observation Oxygen Delivery Method Room Air Blood Pressure (90/60-120/80) 99/60 Blood Pressure Mean (mm Hg) 73 Source Monitor Position Sitting Blood Pressure Location Right Arm History Since Last Visit- (Skip if this is Patient's initial visit) Have you changed medications since your No last visit? Any new allergies or adverse reactions No Had a fall/change in ADL's that may No increase risk of falls Signs or symptoms of abuse and/or No neglect since last visit Has dressing in place as prescribed No Has compression in place as prescribed Yes Has offloadiing in place as prescribed N/A Experienced any changes in pain level or No management Left Footwear Regular Shoe Right Footwear Regular Shoe Pain Scale: 0-10 Numeric Is Patient Pain Free? Yes WC - Nurse 1 - General Ulcer Measurement Start: 01/02/21 11:11 Freq: Status: Active Protocol: Activity Type Activity Date Activity User E-Sign Co-Sign Detail Recorded Client Recorded Date Recorded By Document 01/02/21 11:11 MW Desktop 01/02/21 11:23 MW 01/02/21 11:11 Wound Center Nurse 1 #2- L LATERAL FOOT -Combined with other wound No -Current Size (cm) - Length 0.7 -Current Size (cm) - Width 0.4 -Current Size (cm) - Depth 0.1 -Total Square Cm 0.28 -Photo Taken No -Epithelialization None Present -Tunneling No -Undermining/Tunneling No -Circular Undermining No -Exudate Amt None Present -Wound Margin Flat & Intact -Granulation Amt None Present (0 %) -Granulation Quality N/A -Slough/Fibrin Yes -Necrosis Amt Large (67-100%) -Necrotic Tissue Type Adherent Slough -Structure Exposed N/A -Texture (Stacy-wound Skin Appearance) Assessed, Scarring -Moisture (Stacy-wound Skin Appearance) Assessed -Color (Stacy-wound Skin Appearance) Assessed -Tenderness on Palpation (Stacy-wound No Skin Appearance) -Ulcer Cleansing SOAP AND WATER -Foul Odor after Cleansing No -Anesthetic Used 4% Lidocaine Solution #1- L LATERAL HEEL -Combined with other wound No -Current Size (cm) - Length 4.5 -Current Size (cm) - Width 1.5 -Current Size (cm) - Depth 0.1 -Total Square Cm 6.75 -Photo Taken No -Epithelialization None Present -Tunneling No -Undermining/Tunneling No -Circular Undermining No -Exudate Amt Medium -Exudate Type Serosanguineous -Wound Margin Flat & Intact -Granulation Amt None Present (0 %) -Granulation Quality N/A -Slough/Fibrin No -Necrosis Amt Large (67-100%) -Necrotic Tissue Type Adherent Slough -Structure Exposed N/A -Texture (Stacy-wound Skin Appearance) Assessed, Localized Edema -Moisture (Stacy-wound Skin Appearance) Assessed, Maceration -Color (Stacy-wound Skin Appearance) Assessed -Temperature (Stacy-wound Skin No Abnormality Appearance) (Pt Warm) -Tenderness on Palpation (Stacy-wound Yes Skin Appearance) -Ulcer Cleansing SOAP AND WATER -Foul Odor after Cleansing No -Anesthetic Used 4% Lidocaine Solution Lower Limb Edema Present No WC - Nurse 2 - General Ulcer CM Notes Start: 01/02/21 11:11 Freq: Status: Active Protocol: Activity Type Activity Date Activity User E-Sign Co-Sign Detail Recorded Client Recorded Date Recorded By Document 01/02/21 11:56 OPAL [id number] 01/02/21 12:04 OPAL Edit Result 01/02/21 11:56 OPAL (1) [id number] 01/02/21 12:05 OPAL (1) #1- L LATERAL HEEL - Theraskin (per sq cm) 2 => 23 Is Patient Pain Free? => Yes 01/02/21 11:56 Wound Center Nurse 2 #2- L LATERAL FOOT -Correct Patient No -Correct Side, Site, Position No -Correct Procedure No -Procedure Performed No -Post Debridement (cm) - Length 0 -Post Debridement (cm) - Width 0 -Post Debridement (cm) - Depth 0 -Total Square (Post) (cm) 0 -Area of Debridement (cm) - Length 0 -Area of Debridement (cm) - Width 0 -Total Square (Area) (cm) 0 -Wound/Ulcer Outcome Healed- Epithelialized #1- L LATERAL HEEL -Time 11:57 -Correct Patient Yes -Correct Side, Site, Position Yes -Correct Procedure Yes -Procedure Performed Yes -Type of Procedure Debridement -Clinical Debridement Subcutaneous -Tissue Removed Subcutaneous -Post Debridement (cm) - Length 1.3 -Post Debridement (cm) - Width 4.7 -Post Debridement (cm) - Depth 0.3 -Total Square (Post) (cm) 6.11 -Area of Debridement (cm) - Length 1.3 -Area of Debridement (cm) - Width 4.7 -Total Square (Area) (cm) 6.11 -Tunneling No -Undermining/Tunneling No -Circular Undermining No -Wound/Ulcer Outcome Not Healed -Ulcer Cleansing Rinsed/ Irrigated with Saline -Foul Odor after Cleansing No -Bioengineered Tissue Yes -Type of Bioengineered Tissue Theraskin -Expiration Date 09/23/24 -Product Lot Number [id number] -Percent Used 100 -Lot number of Saline Used [id number] -Bleeding Controlled with Pressure -Offloading Yes -Type of Offloading Surgical Shoe -Treatment Response Procedure Tolerated Well -Debridement - Subq, 1st 20sq cm No -Apply Skin Sub - 1st 25 sq cm - Feet 1 -Theraskin (per sq cm) 23 Pain Scale: 0-10 Numeric Is Patient Pain Free? Yes - Nurse 3 - General Ulcer D/C NN Start: 01/02/21 11:11 Freq: Status: Active Protocol: Activity Type Activity Date Activity User E-Sign Co-Sign Detail Recorded Client Recorded Date Recorded By Document 01/02/21 12:15 MW Desktop 01/02/21 12:16 MW 01/02/21 12:15 Wound Care Nurse 3 #1- L LATERAL HEEL -Ulcer Cleansing Rinsed/ Irrigated with Saline -Foul Odor after Cleansing No -Negative Pressure Wound Therapy N/A -Other Dressing ABD -Primary Dressing Covered/Secured with Dry Gauze & Roll Gauze, Secured with Tape Treatment Response Procedure Tolerated Well Pain Scale: 0-10 Numeric Is Patient Pain Free? Yes Teaching: Wound Center Dressing Your Wound -Person Taught Patient,Family -Teaching Method Discussion, Demonstration -Response to teaching Verbalize understanding WC - Visit Discharge Discharge Condition Stable Ambulatory Status Ambulatory Transportation Private Auto Accompanied by Medication Reconcilliation completed & No provided to patient/care provider Clinical Summary of Care Provided Yes Wound debrided: Heel lateral Laterality: Left Wound Grade/Stage: Barker 3 Type of Debridement: Excisional debridement Anesthesia Used: 4% Lidocaine Solution Depth: in the subcutaneous layer Percentage of wound debrided: 100 Instrument Used: 3mm curette Tissue Removed: includes fibrous, devitalized, biofilm, callus and slough tissue Severity: Fat Layer Exposed Amount of bleeding with debridement: Mild Bleeding Controlled with: Pressure Patient tolerated procedure: Patient tolerated procedure well Assessment/Plan Assessment/Plan (1) Non-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: CODE(S): L97.422 - Non-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 (2) Type 2 diabetes mellitus with foot ulcer: CODE(S): E11.621 - Type 2 diabetes mellitus with foot ulcer; L97.509 - Non-pressure chronic ulcer of other part of unspecified foot with unspecified severity QUALIFIERS: Diabetes mellitus termination clerk insulin use: unspecified termination clerk insulin use status Qualified Code(s): E11.621 - Type 2 diabetes mellitus with foot ulcer; L97.509 - Non-pressure chronic ulcer of other part of unspecified foot with unspecified severity (3) Amputation at midfoot: CODE(S): S98.319A - Complete traumatic amputation of unspecified midfoot, initial encounter QUALIFIERS: Encounter type: subsequent encounter Laterality: left Qualified Code(s): S98.312D - Complete traumatic amputation of left midfoot, subsequent encounter (4) Acute osteomyelitis of left calcaneus: CODE(S): M86.172 - Other acute osteomyelitis, left ankle and foot (5) Peripheral vascular occlusive disease: CODE(S): I73.9 - Peripheral vascular disease, unspecified PLAN: Patient seen and examined. Wounds are improved. Noted to be smaller in size and healthy in appearance. Left lateral foot wound has healed. Cultures from 10/03/20 showing Corynebacterium amycolatum, Staphylococcus aureus, Klebsiella pneumoniae, E. coli. Patient's creatinine clearance was 57 on 08/08/2020. On 10/24/2020 new cultures were obtained which were shown to grow Pseudomonas aerginosum, E. coli, Enterobacter cloacae, porhyromonas. Reviewed MRI from 10/20/2020 demonstrated acute osteomyelitis to the left calcaneus. Patient wishes to treat with antibiotics. Patient saw Dr. Garnett who started him on multiple oral antibiotics including Flagyl, doxycycline, Cefadrxil for 42 days. Patient has since finished course Patient underwent vascular intervention on 08/15/[address] Jeff and again on 09/20/20. Patient has had previous surgical intervention with Dr. Jeff in the past as well. He had recent arterial studies on 06/13/20 showing monophasic waveforms and noncompressible bilateral PT and DP on the right with an left PAYAL of 0.78 on left. Discussed at length the importance of offloading with the patient in order to allow proper wound healing. Patient has a walker. Patient states that he has an offloading shoe at home but is uncomfortable and twists when he tries to wear it while sleeping as he moves in his sleep. Patient does not wear it while sleeping. Discussed with patient the importance of his offloading suggested other alternative methods such as pillows or a doughnut offloading pad. Patient has no interest in this. Again the importance of offloading to allow ulcer to heal. Also discussed the importance of offloading when not sleeping such as in a chair with floating the heel with pillows. Patient also has a surgical shoe with cut out to offload the heel. Patient relates more comfort noted when wearing tennis shoes. He has been wearing those instead. Discussed with patient the importance of proper nutrition and blood sugar control to also aid in wound healing. Patient and educated on proper dressing changes. To change outer dressing only. After verbal consent was obtained, sharp excisional debridement was carried out to patient wounds Patient approved for TheraSkin graft application to the left heel and hydrogel to foot. I recommend application of advanced wound healing product to the indicated ulceration. Prior authorization was confirmed. The indications, benefits, anticipated application and healing time management were reviewed in detail. Verbal consent was obtained in the procedure for today. Site was debrided and graft was applied according to standard protocol and was further secured with a nonadherent dressing and Steri-Strips. Patient instructed that they can change outer dressing but not to go beneath the Steri-Strips. All questions answered. Patient is to follow-up in 1 week. This note was generated with [employer] dictation software. It may contain incorrect words, spelling, and punctuation that were not noted in checking the note before signing.
[2021-01-09 11:06] VITALS: BP 163/94; PULSE 89; RESP 16; TEMP 36.6; BMI 23.0
--- NOTE | 2021-01-09 11:10 | WC ---
kevenin left intact. surrouding skin washed w/ soap and water
--- NOTE | 2021-01-10 17:11 | PCM.WC.PN ---
History of Present Illness Date of Service: 01/09/21 Chief Complaint: Left heel and lateral foot ulcerations osteomyelitis Peripheral vascular disease History of Wound: Patient is a 75-year-old male who presents to the wound care center after being seen in office by Dr. Pelaez [facility] for chronic left foot wound. 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 He also has had left posterior heel ulceration. Patient had an angioplasty intervention with Dr. Jeff on 08/15/20. Patient had another intervention 09/20/20. Patient has a history of peripheral vascular disease and has had surgical intervention in the past. Patient states that he has an offloading boot that he kicks his way out of and wakes him up at night. Patient has not found any other method of offloading to assist during sleeping. Patient has elevated the foot on pillows when sitting in chairs to offload the heel. Patient also has an offloading heel cut out surgical shoe she only wears when he is out of the house. When he is in the house patient states that he goes barefoot. Patient had MRI obtained 10/20/2020 demonstrating a large open wound is present in the lateral posterior and plantar aspect of the calcaneal process with associated mild cortical thinning and mild to moderate underlying edema due to active osteomyelitis. Patient followed up with Dr. Garnett per he was started on oral antibiotics to manage the osteomyelitis. Patient is currently taking doxycycline, cefadroxil and Flagyl 42 days. Patient has since finished this course of treatment. Progress of Wound: Stable with no signs of infection Subjective Subjective Patient seen and examined resting comfortably. Patient denies any new pedal complaints. Patient denies any nausea, fever, chills, chest pain, shortness of breath, cough, streaking, purulence, vomiting. Objective Data Objective Data Vital Signs: Vital Signs Temp Pulse Resp BP 97.9 F 89 16 163/94 H 01/09/21 11:06 01/09/21 11:06 01/09/21 11:01/09/21 11:06 Oxygen Delivery Method Room Air Weight: 79.379 kg Body Mass Index (BMI) 23.0 Physical Exam Narrative Const alert and no apparent distress General Appearance: cooperative and comfortable Lymph Lymphatic: no lymphedema noted Resp normal respiratory effort Effort and Inspection: able to speak in complete sentences Extremity no calf tenderness, negative rambo and gipson sign no lower extremity edema General Extremity: no tenderness to palpation of joints or extremities; Negative for clubbing or cyanosis or ecchymosis or erythema Vasc Peripheral Pulses:posterior tibial pulses present but diminished and dorsalis pedis pulses present but diminished, normal capillary refill, no acute ischemic skin changes noted, normal temperature Skin General Skin Exam: dry skin, decreased hair growth noted; Negative for ecchymosis, eschar, pallor, rashes Wound Narrative: Left lateral heel ulceration. No malodor, erythema, purulence, probing to bone, streaking, fluctuation, crepitus, or other signs of infection. Skin is atrophic and hairless. wound is covered with wound veil and Steri-Strips with any sign of infection noted. Left lateral foot ulceration noted to have healed Left TMA noted Neuro Gait (Neuro): heel to toe Sensory Exam: extremities light-touch: decreased MSK Motor Exam: strength 5/5 throughout, ROM to foot and ankle joints within normal limits Psych Appearance: appropriate Attitude: calm Debridement Note Debridement Note Post-Debridement Measurements and Additional Note: Post-Debridement Measurements/Treatment - Nurse 1 - General Ulcer Assessment Start: 01/02/21 11:11 Freq: Status: Active Protocol: YANNI Activity Type Activity Date Activity User E-Sign Co-Sign Detail Recorded Client Recorded Date Recorded By Document 01/02/21 11:11 MW Desktop 01/02/21 11:23 MW Document 01/09/21 11:06 MW [id number] 01/09/21 11:10 MW 01/02/21 01/09/21 11:11 11:06 - Today's Visit Information Type of service Follow-up Visit Follow-up Visit (Physician/SOFT WORK WRAPPER EXAMINER (Physician/SOFT WORK WRAPPER EXAMINER ) ) Arrival Mode Ambulatory Ambulatory Transfer Assistance None None Accompanied by Patient Identification Verified (Name & Yes Yes ) Patient Requires Transmission-Based No No Precautions Safety Precautions NA NA Height and Weight Body Mass Index (BMI) 23.0 23.0 BMI Classification Normal Normal Vital Signs Temperature (97.8 F-99.1 F) 96.8 F L 97.9 F Temperature Source Temporal Temporal Pulse Rate (60-100) 94 89 Pulse Location Monitor Monitor Respiratory Rate (12-18) 16 16 Respiratory rate source Observation Observation Oxygen Delivery Method Room Air Room Air Blood Pressure (90/60-120/80) 99/60 163/94 H Blood Pressure Mean (mm Hg) 73 117 Source Monitor Monitor Position Sitting Sitting Blood Pressure Location Right Arm Right Arm History Since Last Visit- (Skip if this is Patient's initial visit) Have you changed medications since your No No last visit? Any new allergies or adverse reactions No No Had a fall/change in ADL's that may No increase risk of falls Signs or symptoms of abuse and/or No No neglect since last visit Have you been in the hospital since your No last visit? Has dressing in place as prescribed No Yes Has compression in place as prescribed Yes N/A Has offloadiing in place as prescribed N/A N/A Experienced any changes in pain level or No management Left Footwear Regular Shoe Regular Shoe Right Footwear Regular Shoe Regular Shoe Pain Scale: 0-10 Numeric Is Patient Pain Free? Yes Yes WC - Nurse 1 - General Ulcer Measurement Start: 01/02/21 11:11 Freq: Status: Active Protocol: Activity Type Activity Date Activity User E-Sign Co-Sign Detail Recorded Client Recorded Date Recorded By Document 01/02/21 11:11 MW Desktop 01/02/21 11:23 MW Document 01/09/21 11:06 MW [id number] 01/09/21 11:10 MW 01/02/21 01/09/21 11:11 11:06 Wound Center Nurse 1 #2- L LATERAL FOOT -Combined with other wound No -Current Size (cm) - Length 0.7 -Current Size (cm) - Width 0.4 -Current Size (cm) - Depth 0.1 -Total Square Cm 0.28 -Photo Taken No -Epithelialization None Present -Tunneling No -Undermining/Tunneling No -Circular Undermining No -Exudate Amt None Present -Wound Margin Flat & Intact -Granulation Amt None Present (0 %) -Granulation Quality N/A -Slough/Fibrin Yes -Necrosis Amt Large (67-100%) -Necrotic Tissue Type Adherent Slough -Structure Exposed N/A -Texture (Stacy-wound Skin Appearance) Assessed, Scarring -Moisture (Stacy-wound Skin Appearance) Assessed -Color (Stacy-wound Skin Appearance) Assessed -Tenderness on Palpation (Stacy-wound No Skin Appearance) -Ulcer Cleansing SOAP AND WATER -Foul Odor after Cleansing No -Anesthetic Used 4% Lidocaine Solution #1- L LATERAL HEEL -Combined with other wound No -Current Size (cm) - Length 4.5 0.1 -Current Size (cm) - Width 1.5 0.1 -Current Size (cm) - Depth 0.1 0.1 -Total Square Cm 6.75 0.01 -Photo Taken No -Epithelialization None Present -Tunneling No -Undermining/Tunneling No -Circular Undermining No -Exudate Amt Medium -Exudate Type Serosanguineous -Wound Margin Flat & Intact -Granulation Amt None Present (0 %) -Granulation Quality N/A -Slough/Fibrin No -Necrosis Amt Large (67-100%) -Necrotic Tissue Type Adherent Slough -Structure Exposed N/A -Texture (Stacy-wound Skin Appearance) Assessed, Assessed, Localized Edema Scarring -Moisture (Stacy-wound Skin Appearance) Assessed, Assessed,Dry/ Maceration Scaly -Color (Stacy-wound Skin Appearance) Assessed Assessed -Temperature (Stacy-wound Skin No Abnormality Appearance) (Pt Warm) -Tenderness on Palpation (Stacy-wound Yes Skin Appearance) -Ulcer Cleansing SOAP AND WATER -Foul Odor after Cleansing No -Anesthetic Used 4% Lidocaine Solution Lower Limb Edema Present No WC - Nurse 2 - General Ulcer CM Notes Start: 01/02/21 11:11 Freq: Status: Active Protocol: Activity Type Activity Date Activity User E-Sign Co-Sign Detail Recorded Client Recorded Date Recorded By Document 01/02/21 11:56 JF [id number] 01/02/21 12:04 JF Edit Result 01/02/21 11:56 JF (1) [id number] 01/02/21 12:05 JF Edit Result 01/02/21 11:56 JF (2) [id number] 01/03/21 07:08 Document 01/09/21 11:29 JF [id number] 01/09/21 11:29 JF (1) #1- L LATERAL HEEL - [place] (per sq cm) 2 => 23 Is Patient Pain Free? => Yes (2) #1- L LATERAL HEEL - [place] (per sq cm) 23 => 26 01/02/21 01/09/21 11:56 11:29 Wound Center Nurse 2 #2- L LATERAL FOOT -Correct Patient No -Correct Side, Site, Position No -Correct Procedure No -Procedure Performed No -Post Debridement (cm) - Length 0 -Post Debridement (cm) - Width 0 -Post Debridement (cm) - Depth 0 -Total Square (Post) (cm) 0 -Area of Debridement (cm) - Length 0 -Area of Debridement (cm) - Width 0 -Total Square (Area) (cm) 0 -Wound/Ulcer Outcome Healed- Epithelialized #1- L LATERAL HEEL -Time 11:57 -Correct Patient Yes No -Correct Side, Site, Position Yes No -Correct Procedure Yes No -Procedure Performed Yes No -Type of Procedure Debridement -Clinical Debridement Subcutaneous -Tissue Removed Subcutaneous -Post Debridement (cm) - Length 1.3 -Post Debridement (cm) - Width 4.7 -Post Debridement (cm) - Depth 0.3 -Total Square (Post) (cm) 6.11 -Area of Debridement (cm) - Length 1.3 -Area of Debridement (cm) - Width 4.7 -Total Square (Area) (cm) 6.11 -Tunneling No -Undermining/Tunneling No -Circular Undermining No -Wound/Ulcer Outcome Not Healed Not Healed -Ulcer Cleansing Rinsed/ Irrigated with Saline -Foul Odor after Cleansing No -Bioengineered Tissue Yes -Type of Bioengineered Tissue Ther[place]in -Expiration Date 09/23/24 -Product Lot Number [id number] -Percent Used 100 -Lot number of Saline Used [id number] -Bleeding Controlled with Pressure -Offloading Yes -Type of Offloading Surgical Shoe -Treatment Response Procedure Tolerated Well -Debridement - Subq, 1st 20sq cm No -Apply Skin Sub - 1st 25 sq cm - Feet 1 -[place]in (per sq cm) 26 Pain Scale: 0-10 Numeric Is Patient Pain Free? Yes Yes WC - Nurse 3 - General Ulcer D/C NN Start: 01/02/21 11:11 Freq: Status: Active Protocol: Activity Type Activity Date Activity User E-Sign Co-Sign Detail Recorded Client Recorded Date Recorded By Document 01/02/21 12:15 MW Desktop 01/02/21 12:16 MW Document 01/09/21 11:44 MW [id number] 01/09/21 11:45 MW 01/02/21 01/09/21 12:15 11:44 Wound Care Nurse 3 #1- L LATERAL HEEL -Ulcer Cleansing Rinsed/ Not Cleansed Irrigated with Saline -Foul Odor after Cleansing No No -Negative Pressure Wound Therapy N/A N/A -Other Dressing ABD -Primary Dressing Covered/Secured with Dry Gauze & Dry Gauze & Roll Gauze, Roll Gauze, Secured with Secured with Tape Tape Treatment Response Procedure Tolerated Well Pain Scale: 0-10 Numeric Is Patient Pain Free? Yes Yes Teaching: Wound Center Dressing Your Wound -Person Taught Patient,Family Patient,Family -Teaching Method Discussion, Discussion, Demonstration Demonstration -Response to teaching Verbalize Verbalize understanding understanding WC - Visit Discharge Discharge Condition Stable Stable Ambulatory Status Ambulatory Ambulatory Transportation Private Auto Private Auto Accompanied by Medication Reconcilliation completed & No No provided to patient/care provider Clinical Summary of Care Provided Yes Yes Assessment/Plan Assessment/Plan (1) Non-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: CODE(S): L97.422 - Non-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 (2) Type 2 diabetes mellitus with foot ulcer: CODE(S): E11.621 - Type 2 diabetes mellitus with foot ulcer; L97.509 - Non-pressure chronic ulcer of other part of unspecified foot with unspecified severity QUALIFIERS: Diabetes mellitus alf insulin use: unspecified alf insulin use status Qualified Code(s): E11.621 - Type 2 diabetes mellitus with foot ulcer; L97.509 - Non-pressure chronic ulcer of other part of unspecified foot with unspecified severity (3) Amputation at midfoot: CODE(S): S98.319A - Complete traumatic amputation of unspecified midfoot, initial encounter QUALIFIERS: Encounter type: subsequent encounter Laterality: left Qualified Code(s): S98.312D - Complete traumatic amputation of left midfoot, subsequent encounter (4) Acute osteomyelitis of left calcaneus: CODE(S): M86.172 - Other acute osteomyelitis, left ankle and foot (5) Peripheral vascular occlusive disease: CODE(S): I73.9 - Peripheral vascular disease, unspecified PLAN: Patient seen and examined. Lateral heel wound remains stable. Steri-Strips and wound veil. Left lateral foot wound remains healed. Cultures from 10/03/20 showing Corynebacterium amycolatum, Staphylococcus aureus, Klebsiella pneumoniae, E. coli. Patient's creatinine clearance was 57 on 08/08/2020. On 10/24/2020 new cultures were obtained which were shown to grow Pseudomonas aerginosum, E. coli, Enterobacter cloacae, porhyromonas. Reviewed MRI from 10/20/2020 demonstrated acute osteomyelitis to the left calcaneus. Patient wishes to treat with antibiotics. Patient saw Dr. Garnett who started him on multiple oral antibiotics including Flagyl, doxycycline, Cefadrxil for 42 days. Patient has since finished course Patient underwent vascular intervention on 08/15/[address] Jeff and again on 09/20/20. Patient has had previous surgical intervention with Dr. Jeff in the past as well. He had recent arterial studies on 06/13/20 showing monophasic waveforms and noncompressible bilateral PT and DP on the right with an left PAYAL of 0.78 on left. Discussed at length the importance of offloading with the patient in order to allow proper wound healing. Patient has a walker. Patient states that he has an offloading shoe at home but is uncomfortable and twists when he tries to wear it while sleeping as he moves in his sleep. Patient does not wear it while sleeping. Discussed with patient the importance of his offloading suggested other alternative methods such as pillows or a doughnut offloading pad. Patient has no interest in this. Again the importance of offloading to allow ulcer to heal. Also discussed the importance of offloading when not sleeping such as in a chair with floating the heel with pillows. Patient also has a surgical shoe with cut out to offload the heel. Patient relates more comfort noted when wearing tennis shoes. He has been wearing those instead. Discussed with patient the importance of proper nutrition and blood sugar control to also aid in wound healing. Patient and educated on proper dressing changes. To change outer dressing only. All questions answered. Patient is to follow-up in 1 week. This note was generated with [employer] software. It may contain incorrect words, spelling, and punctuation that were not noted in checking the note before signing.
[2021-01-16 11:25] VITALS: BP 122/92; PULSE 91; RESP 16; TEMP 37; BMI 23.0
--- NOTE | 2021-01-16 12:56 | PN.PCM_ITS ---
History of Present Illness Date of Service: 01/16/21 Chief Complaint: Left heel and lateral foot ulcerations osteomyelitis Peripheral vascular disease History of Wound: Patient is a 75-year-old male who presents to the wound care center after being seen in office by Dr. Pelaez [facility] for chronic left foot wound. 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 He also has had left posterior heel ulceration. Patient had an angioplasty intervention with Dr. Jeff on 08/15/20. Patient had another intervention 09/20/20. Patient has a history of peripheral vascular disease and has had surgical intervention in the past. Patient states that he has an offloading boot that he kicks his way out of and wakes him up at night. Patient has not found any other method of offloading to assist during sleeping. Patient has elevated the foot on pillows when sitting in chairs to offload the heel. Patient also has an offloading heel cut out surgical shoe she only wears when he is out of the house. When he is in the house patient states that he goes barefoot. Patient had MRI obtained 10/20/2020 demonstrating a large open wound is present in the lateral posterior and plantar aspect of the calcaneal process with associated mild cortical thinning and mild to moderate underlying edema due to active osteomyelitis. Patient followed up with Dr. Garnett per he was started on oral antibiotics to manage the osteomyelitis. Patient is currently taking doxycycline, cefadroxil and Flagyl 42 days. Patient has since finished this course of treatment. Progress of Wound: improved Subjective Subjective Patient seen and examined resting comfortably. Patient denies any new pedal complaints. Patient denies any nausea, fever, chills, chest pain, shortness of breath, cough, streaking, purulence, vomiting. Patient relates no pain Objective Data Objective Data Vital Signs: Vital Signs Temp Pulse Resp BP 98.6 F 91 16 122/92 H 01/16/21 11:25 01/16/21 11:25 01/16/21 11:25 01/16/21 11:25 Oxygen Delivery Method Room Air Weight: 79.379 kg Body Mass Index (BMI) 23.0 Physical Exam Narrative Const alert and no apparent distress General Appearance: cooperative and comfortable Lymph Lymphatic: no lymphedema noted Resp normal respiratory effort Effort and Inspection: able to speak in complete sentences Extremity no calf tenderness, negative rambo and gipson sign no lower extremity edema General Extremity: no tenderness to palpation of joints or extremities; Negative for clubbing or cyanosis or ecchymosis or erythema Vasc Peripheral Pulses:posterior tibial pulses present but diminished and dorsalis pedis pulses present but diminished, normal capillary refill, no acute ischemic skin changes noted, normal temperature Skin General Skin Exam: dry skin, decreased hair growth noted; Negative for ecchymosis, eschar, pallor, rashes Wound Narrative: Left lateral heel ulceration. No malodor, erythema, purulence, probing to bone, streaking, fluctuation, crepitus, or other signs of infection. Skin is atrophic and hairless. Left lateral foot ulceration noted to have healed Left TMA noted Neuro Gait (Neuro): heel to toe Sensory Exam: extremities light-touch: decreased MSK Motor Exam: strength 5/5 throughout, ROM to foot and ankle joints within normal limits Psych Appearance: appropriate Attitude: calm Debridement Note Debridement Note Post-Debridement Measurements and Additional Note: Post-Debridement Measurements/Treatment - Nurse 1 - General Ulcer Assessment Start: 01/02/21 11:11 Freq: Status: Active Protocol: [email or web address] Activity Type Activity Date Activity User E-Sign Co-Sign Detail Recorded Client Recorded Date Recorded By Document 01/02/21 11:11 MW Desktop 01/02/21 11:23 MW Document 01/09/21 11:06 MW [id number] 01/09/21 11:10 MW Document 01/16/21 11:25 BM Desktop 01/16/21 11:33 BMF 01/02/21 01/09/21 01/16/21 11:11 11:06 11:25 - Today's Visit Information Type of service Follow-up Visit Follow-up Visit Follow-up Visit (Physician/SOLAR PANEL INSTALLATION SUPERVISOR (Physician/SOLAR PANEL INSTALLATION SUPERVISOR (Physician/SOLAR PANEL INSTALLATION SUPERVISOR ) ) ) Arrival Mode Ambulatory Ambulatory Ambulatory Transfer Assistance None None None Accompanied by Patient Identification Verified (Name & Yes Yes Yes ) Patient Requires Transmission-Based No No No Precautions Safety Precautions NA NA Height and Weight Body Mass Index (BMI) 23.0 23.0 23.0 BMI Classification Normal Normal Normal Vital Signs Temperature (97.8 F-99.1 F) 96.8 F L 97.9 F 98.6 F Temperature Source Temporal Temporal Temporal Pulse Rate (60-100) 94 89 91 Pulse Location Monitor Monitor Monitor Respiratory Rate (12-18) 16 16 16 Respiratory rate source Observation Observation Observation Oxygen Delivery Method Room Air Room Air Room Air Blood Pressure (90/60-120/80) 99/60 163/94 H 122/92 H Blood Pressure Mean (mm Hg) 73 117 102 Source Monitor Monitor Monitor Position Sitting Sitting Sitting Blood Pressure Location Right Arm Right Arm Left Arm History Since Last Visit- (Skip if this is Patient's initial visit) Have you changed medications since your No No No last visit? Any new allergies or adverse reactions No No No Had a fall/change in ADL's that may No No increase risk of falls Signs or symptoms of abuse and/or No No No neglect since last visit Have you been in the hospital since your No No last visit? Has dressing in place as prescribed No Yes Yes Has compression in place as prescribed Yes N/A N/A Has offloadiing in place as prescribed N/A N/A N/A Experienced any changes in pain level or No No management Left Footwear Regular Shoe Regular Shoe Regular Shoe Right Footwear Regular Shoe Regular Shoe Regular Shoe Pain Scale: 0-10 Numeric Is Patient Pain Free? Yes Yes Yes WC - Nurse 1 - General Ulcer Measurement Start: 01/02/21 11:11 Freq: Status: Active Protocol: Activity Type Activity Date Activity User E-Sign Co-Sign Detail Recorded Client Recorded Date Recorded By Document 01/02/21 11:11 MW Desktop 01/02/21 11:23 MW Document 01/09/21 11:06 MW [id number] 01/09/21 11:10 MW Document 01/16/21 11:25 BMF Desktop 01/16/21 11:33 BMF 01/02/21 01/09/21 01/16/21 11:11 11:06 11:25 Wound Center Nurse 1 #2- L LATERAL FOOT -Combined with other wound No -Current Size (cm) - Length 0.7 -Current Size (cm) - Width 0.4 -Current Size (cm) - Depth 0.1 -Total Square Cm 0.28 -Photo Taken No -Epithelialization None Present -Tunneling No -Undermining/Tunneling No -Circular Undermining No -Exudate Amt None Present -Wound Margin Flat & Intact -Granulation Amt None Present (0 %) -Granulation Quality N/A -Slough/Fibrin Yes -Necrosis Amt Large (67-100%) -Necrotic Tissue Type Adherent Slough -Structure Exposed N/A -Texture (Stacy-wound Skin Appearance) Assessed, Scarring -Moisture (Stacy-wound Skin Appearance) Assessed -Color (Stacy-wound Skin Appearance) Assessed -Tenderness on Palpation (Stacy-wound No Skin Appearance) -Ulcer Cleansing SOAP AND WATER -Foul Odor after Cleansing No -Anesthetic Used 4% Lidocaine Solution #1- L LATERAL HEEL -Combined with other wound No No -Current Size (cm) - Length 4.5 0.1 4.3 -Current Size (cm) - Width 1.5 0.1 0.4 -Current Size (cm) - Depth 0.1 0.1 0.4 -Total Square Cm 6.75 0.01 1.72 -Photo Taken No No -Epithelialization None Present None Present -Tunneling No No -Undermining/Tunneling No Yes -Undermining/Tunneling Starts (O'clock 12 ) -Undermining/Tunneling Ends (O'clock) 5 -Maximum Distance (cm) 0.6 -Circular Undermining No No -Exudate Amt Medium Large -Exudate Type Serosanguineous Serosanguineous -Wound Margin Flat & Intact Distinct, Outline Attached -Granulation Amt None Present (0 Medium (34-66%) %) -Granulation Quality N/A Red -Slough/Fibrin No Yes -Necrosis Amt Large (67-100%) Medium (34-66%) -Necrotic Tissue Type Adherent Slough Adherent Slough -Structure Exposed N/A -Texture (Stacy-wound Skin Appearance) Assessed, Assessed, Assessed,Callus Localized Edema Scarring ,Scarring -Moisture (Stacy-wound Skin Appearance) Assessed, Assessed,Dry/ Assessed, Maceration Scaly Maceration,Dry/ Scaly -Color (Stacy-wound Skin Appearance) Assessed Assessed Assessed, Erythema,Palor -Temperature (Stacy-wound Skin No Abnormality No Abnormality Appearance) (Pt Warm) (Pt Warm) -Tenderness on Palpation (Stacy-wound Yes No Skin Appearance) -Ulcer Cleansing SOAP AND WATER soapy water -Foul Odor after Cleansing No No -Anesthetic Used 4% Lidocaine 4% Lidocaine Solution Solution Lower Limb Edema Present No WC - Nurse 2 - General Ulcer CM Notes Start: 01/02/21 11:11 Freq: Status: Active Protocol: Activity Type Activity Date Activity User E-Sign Co-Sign Detail Recorded Client Recorded Date Recorded By Document 01/02/21 11:56 JF [id number] 01/02/21 12:04 JF Edit Result 01/02/21 11:56 JF (1) [id number] 01/02/21 12:05 JF Edit Result 01/02/21 11:56 JF (2) [id number] 01/03/21 07:08 PL Document 01/09/21 11:29 JF [id number] 01/09/21 11:29 JF Document 01/16/21 12:04 MW Desktop 01/16/21 12:07 MW (1) #1- L LATERAL HEEL - [place]in (per sq cm) 2 => 23 Is Patient Pain Free? => Yes (2) #1- L LATERAL HEEL - [place] (per sq cm) 23 => 26 01/02/21 01/09/21 01/16/21 11:56 11:29 12:04 Wound Center Nurse 2 #2- L LATERAL FOOT -Correct Patient No -Correct Side, Site, Position No -Correct Procedure No -Procedure Performed No -Post Debridement (cm) - Length 0 -Post Debridement (cm) - Width 0 -Post Debridement (cm) - Depth 0 -Total Square (Post) (cm) 0 -Area of Debridement (cm) - Length 0 -Area of Debridement (cm) - Width 0 -Total Square (Area) (cm) 0 -Wound/Ulcer Outcome Healed- Epithelialized #1- L LATERAL HEEL -Time 11:57 12:04 -Correct Patient Yes No Yes -Correct Side, Site, Position Yes No Yes -Correct Procedure Yes No Yes -Procedure Performed Yes No Yes -Type of Procedure Debridement Debridement -Clinical Debridement Subcutaneous Subcutaneous -Tissue Removed Subcutaneous Subcutaneous -Post Debridement (cm) - Length 1.3 0.8 -Post Debridement (cm) - Width 4.7 4.2 -Post Debridement (cm) - Depth 0.3 0.5 -Total Square (Post) (cm) 6.11 3.36 -Area of Debridement (cm) - Length 1.3 0.8 -Area of Debridement (cm) - Width 4.7 4.2 -Total Square (Area) (cm) 6.11 3.36 -Tunneling No No -Undermining/Tunneling No No -Circular Undermining No No -Wound/Ulcer Outcome Not Healed Not Healed Not Healed -Ulcer Cleansing Rinsed/ Rinsed/ Irrigated with Irrigated with Saline Saline -Foul Odor after Cleansing No No -Bioengineered Tissue Yes Yes -Type of Bioengineered Tissue Ther[place]in Theraskin -Expiration Date 09/23/24 02/10/24 -Product Lot Number [id number] -Percent Used 100 100 -Lot number of Saline Used [id number] -Bleeding Controlled with Pressure Pressure -Other [id number] -Offloading Yes No -Type of Offloading Surgical Shoe -Treatment Response Procedure Procedure Tolerated Well Tolerated Well -Debridement - Subq, 1st 20sq cm No No -Apply Skin Sub - 1st 25 sq cm - Feet 1 -Apply Skin Sub - each addt'l 25 sq cm 1 - Feet -[place]in (per sq cm) 26 13 Pain Scale: 0-10 Numeric Is Patient Pain Free? Yes Yes Yes WC - Nurse 3 - General Ulcer D/C NN Start: 01/02/21 11:11 Freq: Status: Active Protocol: Activity Type Activity Date Activity User E-Sign Co-Sign Detail Recorded Client Recorded Date Recorded By Document 01/02/21 12:15 MW Desktop 01/02/21 12:16 MW Document 01/09/21 11:44 MW [id number] 01/09/21 11:45 MW Document 01/16/21 12:07 MW Desktop 01/16/21 12:07 MW 01/02/21 01/09/21 01/16/21 12:15 11:44 12:07 Wound Care Nurse 3 #1- L LATERAL HEEL -Ulcer Cleansing Rinsed/ Not Cleansed Not Cleansed Irrigated with Saline -Foul Odor after Cleansing No No No -Negative Pressure Wound Therapy N/A N/A N/A -Other Dressing ABD -Primary Dressing Covered/Secured with Dry Gauze & Dry Gauze & Dry Gauze & Roll Gauze, Roll Gauze, Roll Gauze, Secured with Secured with Secured with Tape Tape Tape Treatment Response Procedure Procedure Tolerated Well Tolerated Well Pain Scale: 0-10 Numeric Is Patient Pain Free? Yes Yes Yes Teaching: Wound Center Dressing Your Wound -Person Taught Patient,Family Patient,Family Patient -Teaching Method Discussion, Discussion, Discussion, Demonstration Demonstration Demonstration -Response to teaching Verbalize Verbalize Verbalize understanding understanding understanding WC - Visit Discharge Discharge Condition Stable Stable Stable Ambulatory Status Ambulatory Ambulatory Ambulatory Transportation Private Auto Private Auto Private Auto Accompanied by Medication Reconcilliation completed & No No No provided to patient/care provider Clinical Summary of Care Provided Yes Yes Yes Wound debrided: Lateral heel Laterality: Left Wound Grade/Stage: Barker 3 Type of Debridement: Excisional debridement Anesthesia Used: 4% Lidocaine Solution Depth: in the subcutaneous layer Percentage of wound debrided: 100 Instrument Used: 3mm curette Tissue Removed: includes fibrous, devitalized, biofilm, callus and slough tissue Severity: Fat Layer Exposed Amount of bleeding with debridement: Mild Bleeding Controlled with: Pressure Patient tolerated procedure: Patient tolerated procedure well Assessment/Plan Assessment/Plan (1) Non-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: CODE(S): L97.422 - Non-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 (2) Type 2 diabetes mellitus with foot ulcer: CODE(S): E11.621 - Type 2 diabetes mellitus with foot ulcer; L97.509 - Non-pressure chronic ulcer of other part of unspecified foot with unspecified severity QUALIFIERS: 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: 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 shelter insulin use status Qualified Code(s): E11.621 - Type 2 diabetes me llitus with foot ulcer; L97.509 - Non-pressure chronic ulcer of other part of unspecified foot with unspecified severity (3) Amputation at midfoot: CODE(S): S98.319A - Complete traumatic amputation of unspecified midfoot, initial encounter QUALIFIERS: Encounter type: subsequent encounter Laterality: left Qualified Code(s): S98.312D - Complete traumatic amputation of left midfoot, subsequent encounter (4) Acute osteomyelitis of left calcaneus: CODE(S): M86.172 - Other acute osteomyelitis, left ankle and foot (5) Peripheral vascular occlusive disease: CODE(S): I73.9 - Peripheral vascular disease, unspecified PLAN: Patient seen and examined. Lateral heel wound is improved with marked decrease in size noted Cultures from 10/03/20 showing Corynebacterium amycolatum, Staphylococcus aureus, Klebsiella pneumoniae, E. coli. Patient's creatinine clearance was 57 on 08/08/2020. On 10/24/2020 new cultures were obtained which were shown to grow Pseudomonas aerginosum, E. coli, Enterobacter cloacae, porhyromonas. Reviewed MRI from 10/20/2020 demonstrated acute osteomyelitis to the left calcaneus. Patient wishes to treat with antibiotics. Patient saw Dr. Garnett who started him on multiple oral antibiotics including Flagyl, doxycycline, Cefadrxil for 42 days. Patient has since finished course Patient underwent vascular intervention on 08/15/[address] Jeff and again on 09/20/20. Patient has had previous surgical intervention with Dr. Jeff in the past as well. He had recent arterial studies on 06/13/20 showing monophasic waveforms and noncompressible bilateral PT and DP on the right with an left PAYAL of 0.78 on left. Discussed at length the importance of offloading with the patient in order to allow proper wound healing. Patient has a walker. Patient states that he has an offloading shoe at home but is uncomfortable and twists when he tries to wear it while sleeping as he moves in his sleep. Patient does not wear it while sleeping. Discussed with patient the importance of his offloading suggested other alternative methods such as pillows or a doughnut offloading pad. Patient has no interest in this. Again the importance of offloading to allow ulcer to heal. Also discussed the importance of offloading when not sleeping such as in a chair with floating the heel with pillows. Patient also has a surgical shoe with cut out to offload the heel. Patient relates more comfort noted when wearing tennis shoes. He has been wearing those instead. Discussed with patient the importance of proper nutrition and blood sugar control to also aid in wound healing. Patient and educated on proper dressing changes. To change outer dressing only. To continue with TheraSkin skin grafts I recommend application of advanced wound healing product to the indicated u lceration. Prior authorization was confirmed. The indications, benefits, anticipated application and healing time management were reviewed in detail. Verbal consent was obtained in the procedure for today. Site was debrided and graft was applied according to standard protocol and was further secured with a nonadherent dressing and Steri-Strips. Patient instructed that they can change outer dressing but not to go beneath the Steri-Strips. All questions answered. Patient is to follow-up in 1 week. This note was generated with [employer] software. It may contain incorrect words, spelling, and punctuation that were not noted in checking the note before signing.
[2021-01-23 10:59] VITALS: BP 144/85; PULSE 87; RESP 16; TEMP 36.8; BMI 23.0
--- NOTE | 2021-01-23 11:33 | PCM.WC.PN ---
History of Present Illness Date of Service: 01/23/21 Chief Complaint: Left heel and lateral foot ulcerations osteomyelitis Peripheral vascular disease History of Wound: Patient is a 75-year-old male who presents to the wound care center after being seen in office by Dr. Pelaez [facility] for chronic left foot wound. 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 He also has had left posterior heel ulceration. Patient had an angioplasty intervention with Dr. Jeff on 08/15/20. Patient had another intervention 09/20/20. Patient has a history of peripheral vascular disease and has had surgical intervention in the past. Patient states that he has an offloading boot that he kicks his way out of and wakes him up at night. Patient has not found any other method of offloading to assist during sleeping. Patient has elevated the foot on pillows when sitting in chairs to offload the heel. Patient also has an offloading heel cut out surgical shoe she only wears when he is out of the house. When he is in the house patient states that he goes barefoot. Patient had MRI obtained 10/20/2020 demonstrating a large open wound is present in the lateral posterior and plantar aspect of the calcaneal process with associated mild cortical thinning and mild to moderate underlying edema due to active osteomyelitis. Patient followed up with Dr. Garnett per he was started on oral antibiotics to manage the osteomyelitis. Patient is currently taking doxycycline, cefadroxil and Flagyl 42 days. Patient has since finished this course of treatment. Progress of Wound: Stable Subjective Subjective Patient seen and examined resting comfortably. Patient denies any new pedal complaints. Patient denies any nausea, fever, chills, chest pain, shortness of breath, cough, streaking, purulence, vomiting. Patient has started wearing new shoes and has noted some increased pressure to the area as they are not a stretch out his his previous ones were Objective Data Objective Data Vital Signs: Vital Signs Temp Pulse Resp BP 98.3 F 87 16 144/85 H 01/23/21 10:59 01/23/21 10:59 01/23/21 10:59 01/23/21 10:59 Oxygen Delivery Method Room Air Weight: 79.379 kg Body Mass Index (BMI) 23.0 Physical Exam Narrative Const alert and no apparent distress General Appearance: cooperative and comfortable Lymph Lymphatic: no lymphedema noted Resp normal respiratory effort Effort and Inspection: able to speak in complete sentences Extremity no calf tenderness, negative rambo and gipson sign no lower extremity edema General Extremity: no tenderness to palpation of joints or extremities; Negative for clubbing or cyanosis or ecchymosis or erythema Vasc Peripheral Pulses:posterior tibial pulses present but diminished and dorsalis pedis pulses present but diminished, normal capillary refill, no acute ischemic skin changes noted, normal temperature Skin General Skin Exam: dry skin, decreased hair growth noted; Negative for ecchymosis, eschar, pallor, rashes Wound Narrative: Left lateral heel ulceration. No malodor, erythema, purulence seen. Wound graft with Steri-Strips and wound veil are intact. Skin is atrophic and hairless. Left lateral forefoot ulceration noted to have healed Left TMA noted Neuro Gait (Neuro): heel to toe Sensory Exam: extremities light-touch: decreased MSK Motor Exam: strength 5/5 throughout, ROM to foot and ankle joints within normal limits Psych Appearance: appropriate Attitude: calm Debridement Note Debridement Note Post-Debridement Measurements and Additional Note: Post-Debridement Measurements/Treatment - Nurse 1 - General Ulcer Assessment Start: 01/02/21 11:11 Freq: Status: Active Protocol: YANNI Activity Type Activity Date Activity User E-Sign Co-Sign Detail Recorded Client Recorded Date Recorded By Document 01/02/21 11:11 MW Desktop 01/02/21 11:23 MW Document 01/09/21 11:06 MW [id number] 01/09/21 11:10 MW Document 01/16/21 11:25 [facility] Desktop 01/16/21 11:33 BMF Document 01/23/21 10:59 DL [id number] 01/23/21 11:04 DL 01/02/21 01/09/21 01/16/21 11:11 11:06 11:25 - Today's Visit Information Type of service Follow-up Visit Follow-up Visit Follow-up Visit (Physician/COLORING MACHINE OPERATOR (Physician/COLORING MACHINE OPERATOR (Physician/COLORING MACHINE OPERATOR ) ) ) Arrival Mode Ambulatory Ambulatory Ambulatory Transfer Assistance None None None Accompanied by Patient Identification Verified (Name & Yes Yes Yes ) Patient Requires Transmission-Based No No No Precautions Safety Precautions NA NA Height and Weight Body Mass Index (BMI) 23.0 23.0 23.0 BMI Classification Normal Normal Normal Vital Signs Temperature (97.8 F-99.1 F) 96.8 F L 97.9 F 98.6 F Temperature Source Temporal Temporal Temporal Pulse Rate (60-100) 94 89 91 Pulse Location Monitor Monitor Monitor Respiratory Rate (12-18) 16 16 16 Respiratory rate source Observation Observation Observation Oxygen Delivery Method Room Air Room Air Room Air Blood Pressure (90/60-120/80) 99/60 163/94 H 122/92 H Blood Pressure Mean (mm Hg) 73 117 102 Source Monitor Monitor Monitor Position Sitting Sitting Sitting Blood Pressure Location Right Arm Right Arm Left Arm Comment History Since Last Visit- (Skip if this is Patient's initial visit) Have you changed medications since your No No No last visit? Any new allergies or adverse reactions No No No Had a fall/change in ADL's that may No No increase risk of falls Signs or symptoms of abuse and/or No No No neglect since last visit Have you been in the hospital since your No No last visit? Has dressing in place as prescribed No Yes Yes Has compression in place as prescribed Yes N/A N/A Has offloadiing in place as prescribed N/A N/A N/A Experienced any changes in pain level or No No management Left Footwear Regular Shoe Regular Shoe Regular Shoe Right Footwear Regular Shoe Regular Shoe Regular Shoe Pain Scale: 0-10 Numeric Is Patient Pain Free? Yes Yes Yes 01/23/21 10:59 WC - Today's Visit Information Type of service Follow-up Visit (Physician/COLORING MACHINE OPERATOR ) Arrival Mode Ambulatory Transfer Assistance Accompanied by Patient Identification Verified (Name & Yes ) Patient Requires Transmission-Based No Precautions Safety Precautions Height and Weight Body Mass Index (BMI) 23.0 BMI Classification Normal Vital Signs Temperature (97.8 F-99.1 F) 98.3 F Temperature Source Temporal Pulse Rate (60-100) 87 Pulse Location Monitor Respiratory Rate (12-18) 16 Respiratory rate source Observation Oxygen Delivery Method Room Air Blood Pressure (90/60-120/80) 144/85 H Blood Pressure Mean (mm Hg) 104 Source Monitor Position Sitting Blood Pressure Location Left Arm Comment Ther[place]i left inplace today History Since Last Visit- (Skip if this is Patient's initial visit) Have you changed medications since your No last visit? Any new allergies or adverse reactions No Had a fall/change in ADL's that may No increase risk of falls Signs or symptoms of abuse and/or No neglect since last visit Have you been in the hospital since your No last visit? Has dressing in place as prescribed Yes Has compression in place as prescribed N/A Has offloadiing in place as prescribed N/A Experienced any changes in pain level or No management Left Footwear Regular Shoe Right Footwear Regular Shoe Pain Scale: 0-10 Numeric Is Patient Pain Free? Yes WC - Nurse 1 - General Ulcer Measurement Start: 01/02/21 11:11 Freq: Status: Active Protocol: Activity Type Activity Date Activity User E-Sign Co-Sign Detail Recorded Client Recorded Date Recorded By Document 01/02/21 11:11 MW Desktop 01/02/21 11:23 MW Document 01/09/21 11:06 MW [id number] 01/09/21 11:10 MW Document 01/16/21 11:25 BMF Desktop 01/16/21 11:33 BMF Document 01/23/21 10:59 DL [id number] 01/23/21 11:04 DL 01/02/21 01/09/21 01/16/21 11:11 11:06 11:25 Wound Center Nurse 1 #2- L LATERAL FOOT -Combined with other wound No -Current Size (cm) - Length 0.7 -Current Size (cm) - Width 0.4 -Current Size (cm) - Depth 0.1 -Total Square Cm 0.28 -Photo Taken No -Epithelialization None Present -Tunneling No -Undermining/Tunneling No -Circular Undermining No -Exudate Amt None Present -Wound Margin Flat & Intact -Granulation Amt None Present (0 %) -Granulation Quality N/A -Slough/Fibrin Yes -Necrosis Amt Large (67-100%) -Necrotic Tissue Type Adherent Slough -Structure Exposed N/A -Texture (Stacy-wound Skin Appearance) Assessed, Scarring -Moisture (Stacy-wound Skin Appearance) Assessed -Color (Stacy-wound Skin Appearance) Assessed -Tenderness on Palpation (Stacy-wound No Skin Appearance) -Ulcer Cleansing SOAP AND WATER -Foul Odor after Cleansing No -Anesthetic Used 4% Lidocaine Solution #1- L LATERAL HEEL -Combined with other wound No No -Current Size (cm) - Length 4.5 0.1 4.3 -Current Size (cm) - Width 1.5 0.1 0.4 -Current Size (cm) - Depth 0.1 0.1 0.4 -Total Square Cm 6.75 0.01 1.72 -Photo Taken No No -Epithelialization None Present None Present -Tunneling No No -Undermining/Tunneling No Yes -Undermining/Tunneling Starts (O'clock 12 ) -Undermining/Tunneling Ends (O'clock) 5 -Maximum Distance (cm) 0.6 -Circular Undermining No No -Exudate Amt Medium Large -Exudate Type Serosanguineous Serosanguineous -Wound Margin Flat & Intact Distinct, Outline Attached -Granulation Amt None Present (0 Medium (34-66%) %) -Granulation Quality N/A Red -Slough/Fibrin No Yes -Necrosis Amt Large (67-100%) Medium (34-66%) -Necrotic Tissue Type Adherent Slough Adherent Slough -Structure Exposed N/A -Texture (Stacy-wound Skin Appearance) Assessed, Assessed, Assessed,Callus Localized Edema Scarring ,Scarring -Moisture (Stacy-wound Skin Appearance) Assessed, Assessed,Dry/ Assessed, Maceration Scaly Maceration,Dry/ Scaly -Color (Stacy-wound Skin Appearance) Assessed Assessed Assessed, Erythema,Palor -Temperature (Stayc-wound Skin No Abnormality No Abnormality Appearance) (Pt Warm) (Pt Warm) -Tenderness on Palpation (Stacy-wound Yes No Skin Appearance) -Ulcer Cleansing SOAP AND WATER soapy water -Foul Odor after Cleansing No No -Anesthetic Used 4% Lidocaine 4% Lidocaine Solution Solution Lower Limb Edema Present No 01/23/21 10:59 Wound Center Nurse 1 #2- L LATERAL FOOT -Combined with other wound -Current Size (cm) - Length -Current Size (cm) - Width -Current Size (cm) - Depth -Total Square Cm -Photo Taken -Epithelialization -Tunneling -Undermining/Tunneling -Circular Undermining -Exudate Amt -Wound Margin -Granulation Amt -Granulation Quality -Slough/Fibrin -Necrosis Amt -Necrotic Tissue Type -Structure Exposed -Texture (Stacy-wound Skin Appearance) -Moisture (Stacy-wound Skin Appearance) -Color (Stacy-wound Skin Appearance) -Tenderness on Palpation (Stacy-wound Skin Appearance) -Ulcer Cleansing -Foul Odor after Cleansing -Anesthetic Used #1- L LATERAL HEEL -Combined with other wound -Current Size (cm) - Length 0.1 -Current Size (cm) - Width 0.1 -Current Size (cm) - Depth 0.1 -Total Square Cm 0.01 -Photo Taken No -Epithelialization -Tunneling -Undermining/Tunneling -Undermining/Tunneling Starts (O'clock ) -Undermining/Tunneling Ends (O'clock) -Maximum Distance (cm) -Circular Undermining -Exudate Amt Medium -Exudate Type Serosanguineous -Wound Margin -Granulation Amt -Granulation Quality -Slough/Fibrin -Necrosis Amt -Necrotic Tissue Type -Structure Exposed -Texture (Stacy-wound Skin Appearance) -Moisture (Stacy-wound Skin Appearance) -Color (Stacy-wound Skin Appearance) -Temperature (Stacy-wound Skin No Abnormality Appearance) (Pt Warm) -Tenderness on Palpation (Stacy-wound No Skin Appearance) -Ulcer Cleansing NA/Graft left intact today -Foul Odor after Cleansing No -Anesthetic Used Lower Limb Edema Present WC - Nurse 2 - General Ulcer CM Notes Start: 01/02/21 11:11 Freq: Status: Active Protocol: Activity Type Activity Date Activity User E-Sign Co-Sign Detail Recorded Client Recorded Date Recorded By Document 01/02/21 11:56 JF [id number] 01/02/21 12:04 JF Edit Result 01/02/21 11:56 JF (1) [id number] 01/02/21 12:05 JF Edit Result 01/02/21 11:56 JF (2) [id number] 01/03/21 07:08 PL Document 01/09/21 11:29 JF [id number] 01/09/21 11:29 JF Document 01/16/21 12:04 MW Desktop 01/16/21 12:07 MW Edit Result 01/16/21 12:04 MW (3) [id number] 01/17/21 07:07 PL Document 01/23/21 11:10 JF [id number] 01/23/21 11:12 JF (1) #1- L LATERAL HEEL - Theraskin (per sq cm) 2 => 23 Is Patient Pain Free? => Yes (2) #1- L LATERAL HEEL - [place]in (per sq cm) 23 => 26 (3) #1- L LATERAL HEEL - Apply Skin Sub - 1st 25 sq cm - Feet => 1 - Apply Skin Sub - each addt'l 25 sq cm 1 => - Feet 01/02/21 01/09/21 01/16/21 11:56 11:29 12:04 Wound Center Nurse 2 #2- L LATERAL FOOT -Correct Patient No -Correct Side, Site, Position No -Correct Procedure No -Procedure Performed No -Post Debridement (cm) - Length 0 -Post Debridement (cm) - Width 0 -Post Debridement (cm) - Depth 0 -Total Square (Post) (cm) 0 -Area of Debridement (cm) - Length 0 -Area of Debridement (cm) - Width 0 -Total Square (Area) (cm) 0 -Wound/Ulcer Outcome Healed- Epithelialized #1- L LATERAL HEEL -Time 11:57 12:04 -Correct Patient Yes No Yes -Correct Side, Site, Position Yes No Yes -Correct Procedure Yes No Yes -Procedure Performed Yes No Yes -Type of Procedure Debridement Debridement -Clinical Debridement Subcutaneous Subcutaneous -Tissue Removed Subcutaneous Subcutaneous -Post Debridement (cm) - Length 1.3 0.8 -Post Debridement (cm) - Width 4.7 4.2 -Post Debridement (cm) - Depth 0.3 0.5 -Total Square (Post) (cm) 6.11 3.36 -Area of Debridement (cm) - Length 1.3 0.8 -Area of Debridement (cm) - Width 4.7 4.2 -Total Square (Area) (cm) 6.11 3.36 -Tunneling No No -Undermining/Tunneling No No -Circular Undermining No No -Wound/Ulcer Outcome Not Healed Not Healed Not Healed -Ulcer Cleansing Rinsed/ Rinsed/ Irrigated with Irrigated with Saline Saline -Foul Odor after Cleansing No No -Bioengineered Tissue Yes Yes -Type of Bioengineered Tissue Theraskin Theraskin -Expiration Date 09/23/24 02/10/24 -Product Lot Number [id number] -Percent Used 100 100 -Lot number of Saline Used [id number] -Bleeding Controlled with Pressure Pressure -Other [id number] -Offloading Yes No -Type of Offloading Surgical Shoe -Treatment Response Procedure Procedure Tolerated Well Tolerated Well -Debridement - Subq, 1st 20sq cm No No -Apply Skin Sub - 1st 25 sq cm - Feet 1 1 -Theraskin (per sq cm) 26 13 Pain Scale: 0-10 Numeric Is Patient Pain Free? Yes Yes Yes 01/23/21 11:10 Wound Center Nurse 2 #2- L LATERAL FOOT -Correct Patient -Correct Side, Site, Position -Correct Procedure -Procedure Performed -Post Debridement (cm) - Length -Post Debridement (cm) - Width -Post Debridement (cm) - Depth -Total Square (Post) (cm) -Area of Debridement (cm) - Length -Area of Debridement (cm) - Width -Total Square (Area) (cm) -Wound/Ulcer Outcome #1- L LATERAL HEEL -Time -Correct Patient No -Correct Side, Site, Position No -Correct Procedure No -Procedure Performed No -Type of Procedure -Clinical Debridement -Tissue Removed -Post Debridement (cm) - Length -Post Debridement (cm) - Width -Post Debridement (cm) - Depth -Total Square (Post) (cm) -Area of Debridement (cm) - Length -Area of Debridement (cm) - Width -Total Square (Area) (cm) -Tunneling -Undermining/Tunneling -Circular Undermining -Wound/Ulcer Outcome Not Healed -Ulcer Cleansing -Foul Odor after Cleansing -Bioengineered Tissue -Type of Bioengineered Tissue -Expiration Date -Product Lot Number -Percent Used -Lot number of Saline Used -Bleeding Controlled with -Other -Offloading -Type of Offloading -Treatment Response -Debridement - Subq, 1st 20sq cm -Apply Skin Sub - 1st 25 sq cm - Feet -Theraskin (per sq cm) Pain Scale: 0-10 Numeric Is Patient Pain Free? WC - Nurse 3 - General Ulcer D/C NN Start: 01/02/21 11:11 Freq: Status: Active Protocol: Activity Type Activity Date Activity User E-Sign Co-Sign Detail Recorded Client Recorded Date Recorded By Document 01/02/21 12:15 MW Desktop 01/02/21 12:16 MW Document 01/09/21 11:44 MW [id number] 01/09/21 11:45 MW Document 01/16/21 12:07 MW Desktop 01/16/21 12:07 MW Document 01/23/21 11:22 [facility] [id number] 01/23/21 11:22 [facility] 01/02/21 01/09/2101/16/21 12:15 11:44 12:07 Wound Care Nurse 3 #1- L LATERAL HEEL -Ulcer Cleansing Rinsed/ Not Cleansed Not Cleansed Irrigated with Saline -Foul Odor after Cleansing No No No -Negative Pressure Wound Therapy N/A N/A N/A -Other Dressing ABD -Primary Dressing Covered/Secured with Dry Gauze & Dry Gauze & Dry Gauze & Roll Gauze, Roll Gauze, Roll Gauze, Secured with Secured with Secured with Tape Tape Tape -Other Covering Treatment Response Procedure Procedure Tolerated Well Tolerated Well Pain Scale: 0-10 Numeric Is Patient Pain Free? Yes Yes Yes Teaching: Wound Center Dressing Your Wound -Person Taught Patient,Family Patient,Family Patient -Teaching Method Discussion, Discussion, Discussion, Demonstration Demonstration Demonstration -Response to teaching Verbalize Verbalize Verbalize understanding understanding understanding WC - Visit Discharge Discharge Condition Stable Stable Stable Ambulatory Status Ambulatory Ambulatory Ambulatory Transportation Private Auto Private Auto Private Auto Accompanied by Medication Reconcilliation completed & No No No provided to patient/care provider Clinical Summary of Care Provided Yes Yes Yes 01/23/21 11:22 Wound Care Nurse 3 #1- L LATERAL HEEL -Ulcer Cleansing -Foul Odor after Cleansing -Negative Pressure Wound Therapy -Other Dressing theraskin -Primary Dressing Covered/Secured with Dry Gauze & Roll Gauze, Secured with Tape,Other -Other Covering abd Treatment Response Procedure Tolerated Well Pain Scale: 0-10 Numeric Is Patient Pain Free? Yes Teaching: Wound Center Dressing Your Wound -Person Taught -Teaching Method -Response to teaching WC - Visit Discharge Discharge Condition Stable Ambulatory Status Ambulatory Transportation Private Auto Accompanied by Medication Reconcilliation completed & provided to patient/care provider Clinical Summary of Care Provided Wound debrided: Left lateral heel Laterality: Left Wound Grade/Stage: Barker 3 No debridement was completed: No debridement was completed today Assessment/Plan Assessment/Plan (1) Non-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: CODE(S): L97.422 - Non-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 (2) Type 2 diabetes mellitus with foot ulcer: CODE(S): E11.621 - Type 2 diabetes mellitus with foot ulcer; L97.509 - Non-pressure chronic ulcer of other part of unspecified foot with unspecified severity QUALIFIERS: Diabetes mellitus fast food server insulin use: unspecified half-way insulin use status Qualified Code(s): E11.621 - Type 2 diabetes mellitus with foot ulcer; L97.509 - Non-pressure chronic ulcer of other part of unspecified foot with unspecified severity (3) Amputation at midfoot: CODE(S): S98.319A - Complete traumatic amputation of unspecified midfoot, initial encounter QUALIFIERS: Encounter type: subsequent encounter Laterality: left Qualified Code(s): S98.312D - Complete traumatic amputation of left midfoot, subsequent encounter (4) Acute osteomyelitis of left calcaneus: CODE(S): M86.172 - Other acute osteomyelitis, left ankle and foot (5) Peripheral vascular occlusive disease: CODE(S): I73.9 - Peripheral vascular disease, unspecified PLAN: Patient seen and examined. Lateral heel wound is stable with graft and wound veil and Steri-Strips intact without signs of infection noted. Patient is noted to have increased pain mildly due to wearing new shoes or not structure as previous shoes. Patient still relates that he would prefer not to do surgical shoe given his issues with balance at this time. As long as wound continues to progress I have no issues with tennis shoes. Did discuss that the patient should place the inserts from his diabetic shoes into his new tennis shoes. Cultures from 10/03/20 showing Corynebacterium amycolatum, Staphylococcus aureus, Klebsiella pneumoniae, E. coli. Patient's creatinine clearance was 57 on 08/08/2020. On 10/24/2020 new cultures were obtained which were shown to grow Pseudomonas aerginosum, E. coli, Enterobacter cloacae, porhyromonas. Reviewed MRI from 10/20/2020 demonstrated acute osteomyelitis to the left calcaneus. Patient wishes to treat with antibiotics. Patient saw Dr. Garnett who started him on multiple oral antibiotics including Flagyl, doxycycline, Cefadrxil for 42 days. Patient has since finished course Patient underwent vascular intervention on 08/15/[address] Jeff and again on 09/20/20. Patient has had previous surgical intervention with Dr. Jeff in the past as well. He had recent arterial studies on 06/13/20 showing monophasic waveforms and noncompressible bilateral PT and DP on the right with an left PAYAL of 0.78 on left. Discussed at length the importance of offloading with the patient in order to allow proper wound healing. Patient has a walker. Patient states that he has an offloading shoe at home but is uncomfortable and twists when he tries to wear it while sleeping as he moves in his sleep. Patient does not wear it while sleeping. Discussed with patient the importance of his offloading suggested other alternative methods such as pillows or a doughnut offloading pad. Patient has no interest in this. Again the importance of offloading to allow ulcer to heal. Also discussed the importance of offloading when not sleeping such as in a chair with floating the heel with pillows. Patient also has a surgical shoe with cut out to offload the heel. Patient relates more comfort noted when wearing tennis shoes. He has been wearing those instead. Discussed with patient the importance of proper nutrition and blood sugar control to also aid in wound healing. Patient and educated on proper dressing changes. To change outer dressing only. To continue with TheraSkin skin grafts All questions answered. Patient is to follow-up in 1 week. This note was generated with [employer] dictation software. It may contain incorrect words, spelling, and punctuation that were not noted in checking the note before signing.
[2021-01-30 11:05] VITALS: BP 119/63; PULSE 96; RESP 16; TEMP 37.3; BMI 23.0
--- NOTE | 2021-01-30 12:45 | PN.PCM_ITS ---
History of Present Illness Date of Service: 01/30/21 Chief Complaint: Left heel and lateral foot ulcerations osteomyelitis Peripheral vascular disease History of Wound: Patient is a 75-year-old male who presents to the wound care center after being seen in office by Dr. Pelaez [facility] for chronic left foot wound. 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 He also has had left posterior heel ulceration. Patient had an angioplasty intervention with Dr. Jeff on 08/15/20. Patient had another intervention 09/20/20. Patient has a history of peripheral vascular disease and has had surgical intervention in the past. Patient states that he has an offloading boot that he kicks his way out of and wakes him up at night. Patient has not found any other method of offloading to assist during sleeping. Patient has elevated the foot on pillows when sitting in chairs to offload the heel. Patient also has an offloading heel cut out surgical shoe she only wears when he is out of the house. When he is in the house patient states that he goes barefoot. Patient had MRI obtained 10/20/2020 demonstrating a large open wound is present in the lateral posterior and plantar aspect of the calcaneal process with associated mild cortical thinning and mild to moderate underlying edema due to active osteomyelitis. Patient followed up with Dr. Garnett per he was started on oral antibiotics to manage the osteomyelitis. Patient is currently taking doxycycline, cefadroxil and Flagyl 42 days. Patient has since finished this course of treatment. Progress of Wound: improved, significant decrease in height of the wound Subjective Subjective Patient seen and examined resting comfortably. Patient denies any new pedal complaints. Patient denies any nausea, fever, chills, chest pain, shortness of breath, cough, streaking, purulence, vomiting. Objective Data Objective Data Vital Signs: Vital Signs Temp Pulse Resp BP 99.1 F 96 16 119/63 01/30/21 11:05 01/30/21 11:05 01/30/21 11:05 01/30/21 11:05 Oxygen Delivery Method Room Air Weight: 79.379 kg Body Mass Index (BMI) 23.0 Physical Exam Narrative Const alert and no apparent distress General Appearance: cooperative and comfortable Lymph Lymphatic: no lymphedema noted Resp normal respiratory effort Effort and Inspection: able to speak in complete sentences Extremity no calf tenderness, negative rambo and gipson sign no lower extremity edema General Extremity: no tenderness to palpation of joints or extremities; Negative for clubbing or cyanosis or ecchymosis or erythema Vasc Peripheral Pulses:posterior tibial pulses present but diminished and dorsalis pedis pulses present but diminished, normal capillary refill, no acute ischemic skin changes noted, normal temperature Skin General Skin Exam: dry skin, decreased hair growth noted; Negative for ecchymosis, eschar, pallor, rashes Wound Narrative: Left lateral heel ulceration. No malodor, erythema, purulence, probing to bone, streaking, fluctuation, crepitus, or other signs of infection. Skin is atrophic and hairless. Left lateral forefoot ulceration noted to have healed Left TMA noted Neuro Gait (Neuro): heel to toe Sensory Exam: extremities light-touch: decreased MSK Motor Exam: strength 5/5 throughout, ROM to foot and ankle joints within normal limits Psych Appearance: appropriate Attitude: calm Debridement Note Debridement Note Post-Debridement Measurements and Additional Note: Post-Debridement Measurements/Treatment - Nurse 1 - General Ulcer Assessment Start: 01/02/21 11:11 Freq: Status: Active Protocol: YANNI Activity Type Activity Date Activity User E-Sign Co-Sign Detail Recorded Client Recorded Date Recorded By Document 01/02/21 11:11 MW Desktop 01/02/21 11:23 MW Document 01/09/21 11:06 MW [id number] 01/09/21 11:10 MW Document 01/16/21 11:25 [employer] Desktop 01/16/21 11:33 BMF Document 01/23/21 10:59 DL [id number] 01/23/21 11:04 DL Document 01/30/21 11:05 BMF Desktop 01/30/21 11:15 BMF 01/02/21 01/09/21 01/16/21 11:11 11:06 11:25 - Today's Visit Information Type of service Follow-up Visit Follow-up Visit Follow-up Visit (Physician/METAL PUNCH PRESS OPERATOR (Physician/METAL PUNCH PRESS OPERATOR (Physician/METAL PUNCH PRESS OPERATOR ) ) ) Arrival Mode Ambulatory Ambulatory Ambulatory Transfer Assistance None None None Accompanied by Patient Identification Verified (Name & Yes Yes Yes ) Patient Requires Transmission-Based No No No Precautions Safety Precautions NA NA Height and Weight Body Mass Index (BMI) 23.0 23.0 23.0 BMI Classification Normal Normal Normal Vital Signs Temperature (97.8 F-99.1 F) 96.8 F L 97.9 F 98.6 F Temperature Source Temporal Temporal Temporal Pulse Rate (60-100) 94 89 91 Pulse Location Monitor Monitor Monitor Respiratory Rate (12-18) 16 16 16 Respiratory rate source Observation Observation Observation Oxygen Delivery Method Room Air Room Air Room Air Blood Pressure (90/60-120/80) 99/60 163/94 H 122/92 H Blood Pressure Mean (mm Hg) 73 117 102 Source Monitor Monitor Monitor Position Sitting Sitting Sitting Blood Pressure Location Right Arm Right Arm Left Arm Comment History Since Last Visit- (Skip if this is Patient's initial visit) Have you changed medications since your No No No last visit? Any new allergies or adverse reactions No No No Had a fall/change in ADL's that may No No increase risk of falls Signs or symptoms of abuse and/or No No No neglect since last visit Have you been in the hospital since your No No last visit? Has dressing in place as prescribed No Yes Yes Has compression in place as prescribed Yes N/A N/A Has offloadiing in place as prescribed N/A N/A N/A Experienced any changes in pain level or No No management Left Footwear Regular Shoe Regular Shoe Regular Shoe Right Footwear Regular Shoe Regular Shoe Regular Shoe Pain Scale: 0-10 Numeric Is Patient Pain Free? Yes Yes Yes 01/23/21 01/30/21 10:59 11:05 WC - Today's Visit Information Type of service Follow-up Visit Follow-up Visit (Physician/METAL PUNCH PRESS OPERATOR (Physician/METAL PUNCH PRESS OPERATOR ) ) Arrival Mode Ambulatory Ambulatory Transfer Assistance None Accompanied by Patient Identification Verified (Name & Yes Yes ) Patient Requires Transmission-Based No No Precautions Safety Precautions Height and Weight Body Mass Index (BMI) 23.0 23.0 BMI Classification Normal Normal Vital Signs Temperature (97.8 F-99.1 F) 98.3 F 99.1 F Temperature Source Temporal Temporal Pulse Rate (60-100) 87 96 Pulse Location Monitor Monitor Respiratory Rate (12-18) 16 16 Respiratory rate source Observation Observation Oxygen Delivery Method Room Air Room Air Blood Pressure (90/60-120/80) 144/85 H 119/63 Blood Pressure Mean (mm Hg) 104 81 Source Monitor Monitor Position Sitting Sitting Blood Pressure Location Left Arm Left Arm Comment Theraski left inplace today History Since Last Visit- (Skip if this is Patient's initial visit) Have you changed medications since your No No last visit? Any new allergies or adverse reactions No No Had a fall/change in ADL's that may No No increase risk of falls Signs or symptoms of abuse and/or No No neglect since last visit Have you been in the hospital since your No No last visit? Has dressing in place as prescribed Yes Yes Has compression in place as prescribed N/A N/A Has offloadiing in place as prescribed N/A N/A Experienced any changes in pain level or No No management Left Footwear Regular Shoe Regular Shoe Right Footwear Regular Shoe Regular Shoe Pain Scale: 0-10 Numeric Is Patient Pain Free? Yes Yes WC - Nurse 1 - General Ulcer Measurement Start: 01/02/21 11:11 Freq: Status: Active Protocol: Activity Type Activity Date Activity User E-Sign Co-Sign Detail Recorded Client Recorded Date Recorded By Document 01/02/21 11:11 MW Desktop 01/02/21 11:23 MW Document 01/09/21 11:06 MW [id number] 01/09/21 11:10 MW Document 01/16/21 11:25 BMF Desktop 01/16/21 11:33 BMF Document 01/23/21 10:59 DL [id number] 01/23/21 11:04 DL Document 01/30/21 11:05 BMF Desktop 01/30/21 11:15 BMF 01/02/21 01/09/21 01/16/21 11:11 11:06 11:25 Wound Center Nurse 1 #2- L LATERAL FOOT -Combined with other wound No -Current Size (cm) - Length 0.7 -Current Size (cm) - Width 0.4 -Current Size (cm) - Depth 0.1 -Total Square Cm 0.28 -Photo Taken No -Epithelialization None Present -Tunneling No -Undermining/Tunneling No -Circular Undermining No -Exudate Amt None Present -Wound Margin Flat & Intact -Granulation Amt None Present (0 %) -Granulation Quality N/A -Slough/Fibrin Yes -Necrosis Amt Large (67-100%) -Necrotic Tissue Type Adherent Slough -Structure Exposed N/A -Texture (Stacy-wound Skin Appearance) Assessed, Scarring -Moisture (Stacy-wound Skin Appearance) Assessed -Color (Stacy-wound Skin Appearance) Assessed -Tenderness on Palpation (Stacy-wound No Skin Appearance) -Ulcer Cleansing SOAP AND WATER -Foul Odor after Cleansing No -Anesthetic Used 4% Lidocaine Solution #1- L LATERAL HEEL -Combined with other wound No No -Current Size (cm) - Length 4.5 0.1 4.3 -Current Size (cm) - Width 1.5 0.1 0.4 -Current Size (cm) - Depth 0.1 0.1 0.4 -Total Square Cm 6.75 0.01 1.72 -Photo Taken No No -Epithelialization None Present None Present -Tunneling No No -Undermining/Tunneling No Yes -Undermining/Tunneling Starts (O'clock 12 ) -Undermining/Tunneling Ends (O'clock) 5 -Maximum Distance (cm) 0.6 -Circular Undermining No No -Exudate Amt Medium Large -Exudate Type Serosanguineous Serosanguineous -Wound Margin Flat & Intact Distinct, Outline Attached -Granulation Amt None Present (0 Medium (34-66%) %) -Granulation Quality N/A Red -Slough/Fibrin No Yes -Necrosis Amt Large (67-100%) Medium (34-66%) -Necrotic Tissue Type Adherent Slough Adherent Slough -Structure Exposed N/A -Texture (Stacy-wound Skin Appearance) Assessed, Assessed, Assessed,Callus Localized Edema Scarring ,Scarring -Moisture (Stacy-wound Skin Appearance) Assessed, Assessed,Dry/ Assessed, Maceration Scaly Maceration,Dry/ Scaly -Color (Stacy-wound Skin Appearance) Assessed Assessed Assessed, Erythema,Palor -Temperature (Stacy-wound Skin No Abnormality No Abnormality Appearance) (Pt Warm) (Pt Warm) -Tenderness on Palpation (Stacy-wound Yes No Skin Appearance) -Ulcer Cleansing SOAP AND WATER soapy water -Foul Odor after Cleansing No No -Anesthetic Used 4% Lidocaine 4% Lidocaine Solution Solution Lower Limb Edema Present No 01/23/21 01/30/21 10:59 11:05 Wound Center Nurse 1 #2- L LATERAL FOOT -Combined with other wound -Current Size (cm) - Length -Current Size (cm) - Width -Current Size (cm) - Depth -Total Square Cm -Photo Taken -Epithelialization -Tunneling -Undermining/Tunneling -Circular Undermining -Exudate Amt -Wound Margin -Granulation Amt -Granulation Quality -Slough/Fibrin -Necrosis Amt -Necrotic Tissue Type -Structure Exposed -Texture (Stacy-wound Skin Appearance) -Moisture (Stacy-wound Skin Appearance) -Color (Stayc-wound Skin Appearance) -Tenderness on Palpation (Stacy-wound Skin Appearance) -Ulcer Cleansing -Foul Odor after Cleansing -Anesthetic Used #1- L LATERAL HEEL -Combined with other wound No -Current Size (cm) - Length 0.1 4.2 -Current Size (cm) - Width 0.1 0.1 -Current Size (cm) - Depth 0.1 0.6 -Total Square Cm 0.01 0.42 -Photo Taken No No -Epithelialization None Present -Tunneling No -Undermining/Tunneling No -Undermining/Tunneling Starts (O'clock ) -Undermining/Tunneling Ends (O'clock) -Maximum Distance (cm) -Circular Undermining No -Exudate Amt Medium Large -Exudate Type Serosanguineous Serosanguineous -Wound Margin Thickened & Rolled Under -Granulation Amt Large (67-100%) -Granulation Quality Red -Slough/Fibrin Yes -Necrosis Amt Small (1-33%) -Necrotic Tissue Type Adherent Slough -Structure Exposed -Texture (Stacy-wound Skin Appearance) Assessed, Scarring -Moisture (Stacy-wound Skin Appearance) Assessed, Maceration -Color (Stacy-wound Skin Appearance) Assessed, Erythema,Palor -Temperature (Stacy-wound Skin No Abnormality No Abnormality Appearance) (Pt Warm) (Pt Warm) -Tenderness on Palpation (Stacy-wound No No Skin Appearance) -Ulcer Cleansing NA/Graft left soapy water intact today -Foul Odor after Cleansing No No -Anesthetic Used 5% Lidocaine Gel Lower Limb Edema Present WC - Nurse 2 - General Ulcer CM Notes Start: 01/02/21 11:11 Freq: Status: Active Protocol: Activity Type Activity Date Activity User E-Sign Co-Sign Detail Recorded Client Recorded Date Recorded By Document 01/02/21 11:56 OPAL [id number] 01/02/21 12:04 JF Edit Result 01/02/21 11:56 OPAL (1) [id number] 01/02/21 12:05 JF Edit Result 01/02/21 11:56 JF (2) [id number] 01/03/21 07:08 PL Document 01/09/21 11:29 JF [id number] 01/09/21 11:29 JF Document 01/16/21 12:04 MW Desktop 01/16/21 12:07 MW Edit Result 01/16/21 12:04 MW (3) [id number] 01/17/21 07:07 PL Document 01/23/21 11:10 JF [id number] 01/23/21 11:12 JF Document 01/30/21 11:44 JF [id number] 01/30/21 11:56 JF (1) #1- L LATERAL HEEL - Theraskin (per sq cm) 2 => 23 Is Patient Pain Free? => Yes (2) #1- L LATERAL HEEL - Theraskin (per sq cm) 23 => 26 (3) #1- L LATERAL HEEL - Apply Skin Sub - 1st 25 sq cm - Feet => 1 - Apply Skin Sub - each addt'l 25 sq cm 1 => - Feet 01/02/21 01/09/21 01/16/21 11:56 11:29 12:04 Wound Center Nurse 2 #2- L LATERAL FOOT -Correct Patient No -Correct Side, Site, Position No -Correct Procedure No -Procedure Performed No -Post Debridement (cm) - Length 0 -Post Debridement (cm) - Width 0 -Post Debridement (cm) - Depth 0 -Total Square (Post) (cm) 0 -Area of Debridement (cm) - Length 0 -Area of Debridement (cm) - Width 0 -Total Square (Area) (cm) 0 -Wound/Ulcer Outcome Healed- Epithelialized #1- L LATERAL HEEL -Time 11:57 12:04 -Correct Patient Yes No Yes -Correct Side, Site, Position Yes No Yes -Correct Procedure Yes No Yes -Procedure Performed Yes No Yes -Type of Procedure Debridement Debridement -Clinical Debridement Subcutaneous Subcutaneous -Tissue Removed Subcutaneous Subcutaneous -Post Debridement (cm) - Length 1.3 0.8 -Post Debridement (cm) - Width 4.7 4.2 -Post Debridement (cm) - Depth 0.3 0.5 -Total Square (Post) (cm) 6.11 3.36 -Area of Debridement (cm) - Length 1.3 0.8 -Area of Debridement (cm) - Width 4.7 4.2 -Total Square (Area) (cm) 6.11 3.36 -Tunneling No No -Undermining/Tunneling No No -Circular Undermining No No -Wound/Ulcer Outcome Not Healed Not Healed Not Healed -Ulcer Cleansing Rinsed/ Rinsed/ Irrigated with Irrigated with Saline Saline -Foul Odor after Cleansing No No -Bioengineered Tissue Yes Yes -Type of Bioengineered Tissue Theraskin Theraskin -Expiration Date 09/23/24 02/10/24 -Product Lot Number [id number] -Percent Used 100 100 -Lot number of Saline Used [id number] -Bleeding Controlled with Pressure Pressure -Other [id number] -Offloading Yes No -Type of Offloading Surgical Shoe -Treatment Response Procedure Procedure Tolerated Well Tolerated Well -Debridement - Subq, 1st 20sq cm No No -Apply Skin Sub - 1st 25 sq cm - Feet 1 1 -Theraskin (per sq cm) 26 13 Pain Scale: 0-10 Numeric Is Patient Pain Free? Yes Yes Yes 01/23/21 01/30/21 11:10 11:44 Wound Center Nurse 2 #2- L LATERAL FOOT -Correct Patient -Correct Side, Site, Position -Correct Procedure -Procedure Performed -Post Debridement (cm) - Length -Post Debridement (cm) - Width -Post Debridement (cm) - Depth -Total Square (Post) (cm) -Area of Debridement (cm) - Length -Area of Debridement (cm) - Width -Total Square (Area) (cm) -Wound/Ulcer Outcome #1- L LATERAL HEEL -Time 11:44 -Correct Patient No Yes -Correct Side, Site, Position No Yes -Correct Procedure No Yes -Procedure Performed No Yes -Type of Procedure Debridement -Clinical Debridement Subcutaneous -Tissue Removed Subcutaneous -Post Debridement (cm) - Length 3.8 -Post Debridement (cm) - Width 0.4 -Post Debridement (cm) - Depth 0.6 -Total Square (Post) (cm) 1.52 -Area of Debridement (cm) - Length 3.8 -Area of Debridement (cm) - Width 0.4 -Total Square (Area) (cm) 1.52 -Tunneling No -Undermining/Tunneling No -Circular Undermining No -Wound/Ulcer Outcome Not Healed Not Healed -Ulcer Cleansing Rinsed/ Irrigated with Saline -Foul Odor after Cleansing No -Bioengineered Tissue Yes -Type of Bioengineered Tissue Theraskin -Expiration Date 08/28/24 -Product Lot Number [id number] -Percent Used 100 -Lot number of Saline Used [id number] -Bleeding Controlled with Pressure -Other -Offloading Yes -Type of Offloading Surgical Shoe -Treatment Response Procedure Tolerated Well -Debridement - Subq, 1st 20sq cm No -Apply Skin Sub - 1st 25 sq cm - Feet 1 -Theraskin (per sq cm) 6 Pain Scale: 0-10 Numeric Is Patient Pain Free? Yes - Nurse 3 - General Ulcer D/C NN Start: 01/02/21 11:11 Freq: Status: Active Protocol: Activity Type Activity Date Activity User E-Sign Co-Sign Detail Recorded Client Recorded Date Recorded By Document 01/02/21 12:15 MW Desktop 01/02/21 12:16 MW Document 01/09/21 11:44 MW [id number] 01/09/21 11:45 MW Document 01/16/21 12:07 MW Desktop 01/16/21 12:07 MW Document 01/23/21 11:22 [facility] [id number] 01/23/21 11:22 BM Document 01/30/21 12:04 [id number] 01/30/21 12:04 01/02/21 01/09/21 01/16/21 12:15 11:44 12:07 Wound Care Nurse 3 #1- L LATERAL HEEL -Ulcer Cleansing Rinsed/ Not Cleansed Not Cleansed Irrigated with Saline -Foul Odor after Cleansing No No No -Negative Pressure Wound Therapy N/A N/A N/A -Other Dressing ABD -Primary Dressing Covered/Secured with Dry Gauze & Dry Gauze & Dry Gauze & Roll Gauze, Roll Gauze, Roll Gauze, Secured with Secured with Secured with Tape Tape Tape -Other Covering Treatment Response Procedure Procedure Tolerated Well Tolerated Well Pain Scale: 0-10 Numeric Is Patient Pain Free? Yes Yes Yes Teaching: Wound Center Dressing Your Wound -Person Taught Patient,Family Patient,Family Patient -Teaching Method Discussion, Discussion, Discussion, Demonstration Demonstration Demonstration -Response to teaching Verbalize Verbalize Verbalize understanding understanding understanding WC - Visit Discharge Discharge Condition Stable Stable Stable Ambulatory Status Ambulatory Ambulatory Ambulatory Transportation Private Auto Private Auto Private Auto Accompanied by Medication Reconcilliation completed & No No No provided to patient/care provider Clinical Summary of Care Provided Yes Yes Yes 01/23/21 01/30/21 11:22 12:04 Wound Care Nurse 3 #1- L LATERAL HEEL -Ulcer Cleansing Rinsed/ Irrigated with Saline -Foul Odor after Cleansing No -Negative Pressure Wound Therapy -Other Dressing theraskin -Primary Dressing Covered/Secured with Dry Gauze & Dry Gauze & Roll Gauze, Roll Gauze, Secured with Secured with Tape,Other Tape -Other Covering abd Treatment Response Procedure Tolerated Well Pain Scale: 0-10 Numeric Is Patient Pain Free? Yes Yes Teaching: Wound Center Dressing Your Wound -Person Taught -Teaching Method -Response to teaching WC - Visit Discharge Discharge Condition Stable Stable Ambulatory Status Ambulatory Ambulatory Transportation Private Auto Private Auto Accompanied by Medication Reconcilliation completed & Yes provided to patient/care provider Clinical Summary of Care Provided Yes Wound debrided: lateral heel Laterality: Left Wound Grade/Stage: hodges 3 Type of Debridement: Excisional debridement Anesthesia Used: 4% Lidocaine Solution Depth: in the subcutaneous layer Percentage of wound debrided: 100 Instrument Used: 3mm curette Tissue Removed: includes fibrous, devitalized, biofilm, callus and slough tissue Severity: Fat Layer Exposed Amount of bleeding with debridement: Mild Bleeding Controlled with: Pressure Patient tolerated procedure: Patient tolerated procedure well Assessment/Plan Assessment/Plan (1) Non-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: CODE(S): L97.422 - Non-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 (2) Type 2 diabetes mellitus with foot ulcer: CODE(S): E11.621 - Type 2 diabetes mellitus with foot ulcer; L97.509 - Non-pressure chronic ulcer of other part of unspecified foot with unspecified severity QUALIFIERS: Diabetes mellitus rn long term care insulin use: unspecified rn long term care insulin use status Qualified Code(s): E11.621 - Type 2 diabetes mellitus with foot ulcer; L97.509 - Non-pressure chronic ulcer of other part of unspecified foot with unspecified severity (3) Amputation at midfoot: CODE(S): S98.319A - Complete traumatic amputation of unspecified midfoot, initial encounter QUALIFIERS: Encounter type: subsequent encounter Laterality: left Qualified Code(s): S98.312D - Complete traumatic amputation of left midfoot, subsequent encounter (4) Acute osteomyelitis of left calcaneus: CODE(S): M86.172 - Other acute osteomyelitis, left ankle and foot (5) Peripheral vascular occlusive disease: CODE(S): I73.9 - Peripheral vascular disease, unspecified PLAN: Patient seen and examined. Lateral heel wound is improved. He reports today in his new diabetic shoes Cultures from 10/03/20 showing Corynebacterium amycolatum, Staphylococcus aureus, Klebsiella pneumoniae, E. coli. Patient's creatinine clearance was 57 on 08/08/2020. On 10/24/2020 new cultures were obtained which were shown to grow Pseudomonas aerginosum, E. coli, Enterobacter cloacae, porhyromonas. Reviewed MRI from 10/20/2020 demonstrated acute osteomyelitis to the left calcaneus. Patient wishes to treat with antibiotics. Patient saw Dr. Garnett who started him on multiple oral antibiotics including Flagyl, doxycycline, Cefadrxil for 42 days. Patient has since finished course Patient underwent vascular intervention on 08/15/[address] Jeff and again on 09/20/20. Patient has had previous surgical intervention with Dr. Jeff in the past as well. He had recent arterial studies on 06/13/20 showing monophasic waveforms and noncompressible bilateral PT and DP on the right with an left PAYAL of 0.78 on left. Discussed at length the importance of offloading with the patient in order to allow proper wound healing. Patient has a walker. Patient states that he has an offloading shoe at home but is uncomfortable and twists when he tries to wear it while sleeping as he moves in his sleep. Patient does not wear it while sleeping. Discussed with patient the importance of his offloading suggested other alternative methods such as pillows or a doughnut offloading pad. Patient has no interest in this. Again the importance of offloading to allow ulcer to heal. Also discussed the importance of offloading when not sleeping such as in a chair with floating the heel with pillows. Patient also has a surgical shoe with cut out to offload the heel. Patient relates more comfort noted when wearing tennis shoes. He has been wearing those instead. Discussed with patient the importance of proper nutrition and blood sugar control to also aid in wound healing. Patient and educated on proper dressing changes. To change outer dressing only. To continue with TheraSkin skin grafts Approved graft was applied to healthy noninfected ulceration site after debridement to ulceration was performed to remove any biofilm, slough, fibrotic, devitalized tissue. This was done after verbal consent was obtained from the patient. Graft was secured with adaptic touch and steri strips before outer dressing was applied. There was good adherence of graft to wound bed. All questions answered. Patient is to follow-up in 1 week. This note was generated with [employer] dictation software. It may contain incorrect words, spelling, and punctuation that were not noted in checking the note before signing.
== END 2021-01-31 23:59 ==
LOC: WC 11:00
PROVIDERS: PCP Family Medicine; Referring Provider Podiatrist; Visit Provider Podiatrist Foot & Ankle Surgery
DX: E11.621 Type 2 diabetes mellitus with foot ulcer (principal); E11.51 Type 2 diabetes mellitus with diabetic peripheral angiopathy without gangrene; L97.422 Non-pressure chronic ulcer of left heel and midfoot with fat layer exposed; M86.172 Other acute osteomyelitis, left ankle and foot; E11.69 Type 2 diabetes mellitus with other specified complication; Z89.432 Acquired absence of left foot
CPT/HCPCS: 15275; 15276; 99213; Q4121; G0463

== ENCOUNTER 2021-02-13 11:00 | Outpatient (RCR) | payer MEDICARE, OTHER, SELFPAY ==
[2021-02-01 00:21] VITALS: BP 119/63; PULSE 96; RESP 16; TEMP 37.3
[2021-02-13 11:28] VITALS: BP 125/73; PULSE 87; RESP 18; TEMP 36.9; BMI 23.0
--- NOTE | 2021-02-13 12:32 | PN.PCM_ITS ---
History of Present Illness Date of Service: 02/13/21 Chief Complaint: Left heel and lateral foot ulcerations osteomyelitis Peripheral vascular disease History of Wound: Patient is a 75-year-old male who presents to the wound care center after being seen in office by Dr. Pelaez [facility] for chronic left foot wound. 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 He also has had left posterior heel ulceration. Patient had an angioplasty intervention with Dr. Jeff on 08/15/20. Patient had another intervention 09/20/20. Patient has a history of peripheral vascular disease and has had surgical intervention in the past. Patient states that he has an offloading boot that he kicks his way out of and wakes him up at night. Patient has not found any other method of offloading to assist during sleeping. Patient has elevated the foot on pillows when sitting in chairs to offload the heel. Patient also has an offloading heel cut out surgical shoe she only wears when he is out of the house. When he is in the house patient states that he goes barefoot. Patient had MRI obtained 10/20/2020 demonstrating a large open wound is present in the lateral posterior and plantar aspect of the calcaneal process with associated mild cortical thinning and mild to moderate underlying edema due to active osteomyelitis. Patient followed up with Dr. Garnett per he was started on oral antibiotics to manage the osteomyelitis. Patient is currently taking doxycycline, cefadroxil and Flagyl 42 days. Patient has since finished this course of treatment. Progress of Wound: Improved Subjective Subjective Patient seen and examined resting comfortably. Patient denies any new pedal complaints. Patient denies any nausea, fever, chills, chest pain, shortness of breath, cough, streaking, purulence, vomiting. Patient relates some pain to his heel upon pressure which is new. Objective Data Objective Data Vital Signs: Vital Signs Temp Pulse Resp BP 98.4 F 87 18 125/73 H 02/13/21 11:28 02/13/21 11:28 02/13/21 11:28 02/13/21 11:28 Oxygen Delivery Method Room Air Weight: 79.379 kg Body Mass Index (BMI) 23.0 Physical Exam Narrative Const alert and no apparent distress General Appearance: cooperative and comfortable Lymph Lymphatic: no lymphedema noted Resp normal respiratory effort Effort and Inspection: able to speak in complete sentences Extremity no calf tenderness, negative rambo and gipson sign no lower extremity edema General Extremity: no tenderness to palpation of joints or extremities; Negative for clubbing or cyanosis or ecchymosis or erythema Vasc Peripheral Pulses:posterior tibial pulses present but diminished and dorsalis pedis pulses present but diminished, normal capillary refill, no acute ischemic skin changes noted, normal temperature Skin General Skin Exam: dry skin, decreased hair growth noted; Negative for ecchymosis, eschar, pallor, rashes Wound Narrative: Left lateral heel ulceration. No malodor, erythema, purulence, probing to bone, streaking, fluctuation, crepitus, or other signs of infection. Skin is atrophic and hairless. There is some hyper granulation tissue noted periwound. The depth is significantly improved to the wound. Mild maceration noted. There is buildup of surrounding callus. Left lateral forefoot ulceration remains healed Left TMA noted Neuro Gait (Neuro): heel to toe Sensory Exam: extremities light-touch: decreased MSK Motor Exam: strength 5/5 throughout, ROM to foot and ankle joints within normal limits Psych Appearance: appropriate Attitude: calm Debridement Note Debridement Note Post-Debridement Measurements and Additional Note: Post-Debridement Measurements/Treatment - Nurse 1 - General Ulcer Assessment Start: 02/13/21 11:20 Freq: Status: Active Protocol: YANNI Activity Type Activity Date Activity User E-Sign Co-Sign Detail Recorded Client Recorded Date Recorded By Document 02/13/21 11:28 [facility] [id number] 02/13/21 11:35 [facility] 02/13/21 11:28 - Today's Visit Information Type of service Follow-up Visit (Physician/AREA CLEANER ) Arrival Mode Ambulatory Transfer Assistance None Accompanied by Patient Identification Verified (Name & Yes ) Patient Requires Transmission-Based No Precautions Height and Weight Body Mass Index (BMI) 23.0 BMI Classification Normal Vital Signs Temperature (97.8 F-99.1 F) 98.4 F Temperature Source Temporal Pulse Rate (60-100) 87 Pulse Location Monitor Respiratory Rate (12-18) 18 Respiratory rate source Observation Oxygen Delivery Method Room Air Blood Pressure (90/60-120/80) 125/73 H Blood Pressure Mean (mm Hg) 90 Source Monitor Position Sitting Blood Pressure Location Left Arm History Since Last Visit- (Skip if this is Patient's initial visit) Have you changed medications since your No last visit? Any new allergies or adverse reactions No Had a fall/change in ADL's that may No increase risk of falls Signs or symptoms of abuse and/or No neglect since last visit Have you been in the hospital since your No last visit? Has dressing in place as prescribed Yes Has compression in place as prescribed N/A Has offloadiing in place as prescribed N/A Experienced any changes in pain level or No management Left Footwear Regular Shoe Right Footwear Regular Shoe Pain Scale: 0-10 Numeric Is Patient Pain Free? Yes - Nurse 1 - General Ulcer Measurement Start: 02/13/21 11:20 Freq: Status: Active Protocol: Activity Type Activity Date Activity User E-Sign Co-Sign Detail Recorded Client Recorded Date Recorded By Document 02/13/21 11:28 [facility] [id number] 02/13/21 11:35 [facility] 02/13/21 11:28 Wound Center Nurse 1 #1- L LATERAL HEEL -Combined with other wound No -Current Size (cm) - Length 3 -Current Size (cm) - Width 0.1 -Current Size (cm) - Depth 0.7 -Total Square Cm 0.3 -Photo Taken No -Epithelialization None Present -Tunneling No -Undermining/Tunneling No -Circular Undermining No -Exudate Amt Medium -Exudate Type Serosanguineous -Wound Margin Thickened & Rolled Under -Granulation Amt None Present (0 %) -Slough/Fibrin Yes -Necrosis Amt Large (67-100%) -Necrotic Tissue Type Adherent Slough -Texture (Stacy-wound Skin Appearance) Assessed, Scarring -Moisture (Stacy-wound Skin Appearance) Assessed -Color (Stacy-wound Skin Appearance) Assessed -Temperature (Stacy-wound Skin No Abnormality Appearance) (Pt Warm) -Tenderness on Palpation (Stacy-wound No Skin Appearance) -Ulcer Cleansing SOAPY WATER -Foul Odor after Cleansing No -Anesthetic Used 5% Lidocaine Gel - Nurse 3 - General Ulcer D/C NN Start: 02/13/21 11:20 Freq: Status: Active Protocol: Activity Type Activity Date Activity User E-Sign Co-Sign Detail Recorded Client Recorded Date Recorded By Document 02/13/21 12:13 [facility] [id number] 02/13/21 12:14 [facility] 02/13/21 12:13 Wound Care Nurse 3 -Other Dressing [place] -Primary Dressing Covered/Secured with Dry Gauze & Roll Gauze, Secured with Tape,Other -Other Covering ABD Treatment Response Procedure Tolerated Well Pain Scale: 0-10 Numeric Is Patient Pain Free? Yes WC - Visit Discharge Discharge Condition Stable Ambulatory Status Ambulatory Transportation Private Auto Accompanied by Wound debrided: Heel lateral Laterality: Left Wound Grade/Stage: Barker 3 Type of Debridement: Excisional debridement Anesthesia Used: 4% Lidocaine Solution Depth: in the subcutaneous layer Percentage of wound debrided: 100 Instrument Used: 3mm curette Tissue Removed: includes fibrous, devitalized, biofilm, callus and slough tissue Severity: Fat Layer Exposed Amount of bleeding with debridement: Mild Bleeding Controlled with: Pressure Patient tolerated procedure: Patient tolerated procedure well Assessment/Plan Assessment/Plan (1) Non-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: CODE(S): L97.422 - Non-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 (2) Acute osteomyelitis of left calcaneus: CODE(S): M86.172 - Other acute osteomyelitis, left ankle and foot (3) Peripheral vascular occlusive disease: CODE(S): I73.9 - Peripheral vascular disease, unspecified (4) Type 2 diabetes mellitus with foot ulcer: CODE(S): E11.621 - Type 2 diabetes mellitus with foot ulcer; L97.509 - Non-pressure chronic ulcer of other part of unspecified foot with unspecified severity QUALIFIERS: Diabetes mellitus long wall mining machine tender insulin use: unspecified long wall mining machine tender insulin use status Qualified Code(s): E11.621 - Type 2 diabetes mellitus with foot ulcer; L97.509 - Non-pressure chronic ulcer of other part of unspecified foot with unspecified severity PLAN: Patient seen and examined. Lateral heel wound is improved. He relates some pain to his heel upon ambulation. This is relatively new onset. Upon exam there is no new wounds noted. There was some callus buildup periwound ulceration which may have contributed to this pain. This callus was sharply debrided without incident. Cultures from 10/03/20 showing Corynebacterium amycolatum, Staphylococcus aureus, Klebsiella pneumoniae, E. coli. Patient's creatinine clearance was 57 on 08/08/2020. On 10/24/2020 new cultures were obtained which were shown to grow Pseudomonas aerginosum, E. coli, Enterobacter cloacae, porhyromonas. Reviewed MRI from 10/20/2020 demonstrated acute osteomyelitis to the left calcaneus. Patient wishes to treat with antibiotics. Patient saw Dr. Garnett who started him on multiple oral antibiotics including Flagyl, doxycycline, Cefadrxil for 42 days. Patient has since finished course Patient underwent vascular intervention on 08/15/[address] Jeff and again on 09/20/20. Patient has had previous surgical intervention with Dr. Jeff in the past as well. He had recent arterial studies on 06/13/20 showing monophasic waveforms and noncompressible bilateral PT and DP on the right with an left PAYAL of 0.78 on left. Discussed at length the importance of offloading with the patient in order to allow proper wound healing. Patient has a walker. Patient states that he has an offloading shoe at home but is uncomfortable and twists when he tries to wear it while sleeping as he moves in his sleep. Patient does not wear it while sleeping. Discussed with patient the importance of his offloading suggested other alternative methods such as pillows or a doughnut offloading pad. Patient has no interest in this. Again the importance of offloading to allow ulcer to heal. Also discussed the importance of offloading when not sleeping such as in a chair with floating the heel with pillows. Patient also has a surgical shoe with cut out to offload the heel. Patient relates more comfort noted when wearing his diabetic shoes. He has been wearing those instead. Discussed with patient the importance of proper nutrition and blood sugar control to also aid in wound healing. Patient and educated on proper dressing changes. To change outer dressing only. To continue with TheraSkin skin grafts Approved graft was applied to healthy noninfected ulceration site after debridement to ulceration was performed to remove any biofilm, slough, fibrotic, devitalized tissue. This was done after verbal consent was obtained from the patient. Graft was secured with adaptic touch and steri strips before outer dressing was applied. There was good adherence of graft to wound bed. All questions answered. Patient is to follow-up in 2 week. This note was generated with [employer] software. It may contain incorrect words, spelling, and punctuation that were not noted in checking the note before signing.
== END 2021-03-03 23:59 ==
LOC: WC 11:00
PROVIDERS: PCP Family Medicine; Referring Provider Podiatrist; Visit Provider Podiatrist Foot & Ankle Surgery
DX: E11.51 Type 2 diabetes mellitus with diabetic peripheral angiopathy without gangrene (principal); E11.69 Type 2 diabetes mellitus with other specified complication; E11.621 Type 2 diabetes mellitus with foot ulcer; L97.422 Non-pressure chronic ulcer of left heel and midfoot with fat layer exposed; M86.172 Other acute osteomyelitis, left ankle and foot
CPT/HCPCS: 15275; Q4121

== ENCOUNTER 2021-04-03 11:00 | Outpatient (RCR) | payer MEDICARE, OTHER, SELFPAY ==
[2021-02-22 12:31] VITALS: BMI 22.7
[2021-03-04 00:25] VITALS: BP 125/73; PULSE 87; RESP 18; TEMP 36.9
[2021-03-06 10:57] VITALS: BP 146/87; PULSE 95; RESP 20; TEMP 36.9; BMI 22.7
--- NOTE | 2021-03-06 14:36 | PN.PCM_ITS ---
History of Present Illness Date of Service: 03/06/21 Chief Complaint: Left heel and lateral foot ulcerations osteomyelitis Peripheral vascular disease History of Wound: Patient is a 76-year-old male who presents to the wound care center after being seen in office by Dr. Pelaez at the [facility] for chronic left foot wound. 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 He also has had left posterior heel ulceration. Patient had an angioplasty intervention with Dr. Jeff on 08/15/20. Patient had another intervention 09/20/20. Patient has a history of peripheral vascular disease and has had surgical intervention in the past. Patient had MRI obtained 10/20/2020 demonstrating a large open wound is present in the lateral posterior and plantar aspect of the calcaneal process with associated mild cortical thinning and mild to moderate underlying edema due to active osteomyelitis. Patient followed up with Dr. Garnett per he was started on oral antibiotics to manage the osteomyelitis. Patient is currently taking doxycycline, cefadroxil and Flagyl 42 days. Patient has since finished this course of treatment. Patient has begun TheraSkin skin graft applications after approval was taken by insurance. Progress of Wound: Improved with hyper granulation tissue noted periwound Subjective Subjective Patient seen and examined resting comfortably. Patient denies any new pedal complaints. Patient denies any nausea, fever, chills, chest pain, shortness of breath, cough, streaking, purulence, vomiting. Objective Data Objective Data Vital Signs: Vital Signs Temp Pulse Resp BP 98.4 F 95 20 H 146/87 H 03/06/21 10:57 03/06/21 10:57 03/06/21 10:57 03/06/21 10:57 Weight: 79.379 kg Body Mass Index (BMI) 22.7 Physical Exam Narrative Const alert and no apparent distress General Appearance: cooperative and comfortable Lymph Lymphatic: no lymphedema noted Resp normal respiratory effort Effort and Inspection: able to speak in complete sentences Extremity no calf tenderness, negative rambo and gipson sign no lower extremity edema General Extremity: no tenderness to palpation of joints or extremities; Negative for clubbing or cyanosis or ecchymosis or erythema Vasc Peripheral Pulses:posterior tibial pulses present but diminished and dorsalis pedis pulses present but diminished, normal capillary refill, no acute ischemic skin changes noted, normal temperature Skin General Skin Exam: dry skin, decreased hair growth noted; Negative for ecchymosis, eschar, pallor, rashes Wound Narrative: Left lateral heel ulceration. No malodor, erythema, purulence, probing to bone, streaking, fluctuation, crepitus, or other signs of infection. Skin is atrophic and hairless. There is some hyper granulation tissue noted periwound. The depth is significantly improved to the wound. Mild maceration noted. There is buildup of surrounding callus. Left lateral forefoot ulceration remains healed Neuro Gait (Neuro): heel to toe Sensory Exam: extremities light-touch: decreased MSK Motor Exam: strength 5/5 throughout, ROM to foot and ankle joints within normal limits, Left TMA noted Psych Appearance: appropriate Attitude: calm Debridement Note Debridement Note Post-Debridement Measurements and Additional Note: Post-Debridement Measurements/Treatment - Nurse 1 - General Ulcer Assessment Start: 03/06/21 10:56 Freq: Status: Active Protocol: [email or web address] Activity Type Activity Date Activity User E-Sign Co-Sign Detail Recorded Client Recorded Date Recorded By Document 03/06/21 10:57 DL Desktop 03/06/21 11:06 DL 03/06/21 10:57 - Today's Visit Information Type of service Follow-up Visit (Physician/MANAGER WILLOW ) Arrival Mode Ambulatory Transfer Assistance None Patient Requires Transmission-Based No Precautions Height and Weight Body Mass Index (BMI) 22.7 BMI Classification Normal Vital Signs Temperature (97.8 F-99.1 F) 98.4 F Temperature Source Temporal Pulse Rate (60-100) 95 Pulse Location Monitor Respiratory Rate (12-18) 20 H Respiratory rate source Observation Blood Pressure (90/60-120/80) 146/87 H Blood Pressure Mean (mm Hg) 106 Source Monitor History Since Last Visit- (Skip if this is Patient's initial visit) Have you changed medications since your No last visit? Any new allergies or adverse reactions No Had a fall/change in ADL's that may No increase risk of falls Signs or symptoms of abuse and/or No neglect since last visit Have you been in the hospital since your No last visit? Has dressing in place as prescribed Yes Has compression in place as prescribed N/A Has offloadiing in place as prescribed Yes Experienced any changes in pain level or No management Left Footwear No Footwear Pain Scale: 0-10 Numeric Is Patient Pain Free? Yes - Nurse 1 - General Ulcer Measurement Start: 03/06/21 10:56 Freq: Status: Active Protocol: Activity Type Activity Date Activity User E-Sign Co-Sign Detail Recorded Client Recorded Date Recorded By Document 03/06/21 10:57 DL Desktop 03/06/21 11:06 DL 03/06/21 10:57 Wound Center Nurse 1 #1- L LATERAL HEEL -Current Size (cm) - Length 1.8 -Current Size (cm) - Width 1 -Current Size (cm) - Depth 0.4 -Total Square Cm 1.8 -Photo Taken No -Exudate Amt Medium -Exudate Type Serosanguineous -Wound Margin Thickened -Granulation Amt Small (1-33%) -Granulation Quality [employer] -Necrosis Amt Large (67-100%) -Necrotic Tissue Type Adherent Slough -Structure Exposed N/A -Texture (Stacy-wound Skin Appearance) Scarring -Moisture (Stacy-wound Skin Appearance) Maceration -Color (Stacy-wound Skin Appearance) No Abnormality -Temperature (Stacy-wound Skin No Abnormality Appearance) (Pt Warm) -Tenderness on Palpation (Stacy-wound No Skin Appearance) -Ulcer Cleansing Wound Cleanser -Foul Odor after Cleansing No -Anesthetic Used 4% Lidocaine Solution WC - Nurse 2 - General Ulcer CM Notes Start: 03/06/21 10:56 Freq: Status: Active Protocol: Activity Type Activity Date Activity User E-Sign Co-Sign Detail Recorded Client Recorded Date Recorded By Document 03/06/21 11:16 OPAL [id number] 03/06/21 11:22 OPAL 03/06/21 11:16 Wound Center Nurse 2 -Time 11:16 -Correct Patient Yes -Correct Side, Site, Position Yes -Correct Procedure Yes -Procedure Performed Yes -Type of Procedure Debridement -Clinical Debridement Subcutaneous -Tissue Removed Subcutaneous -Post Debridement (cm) - Length 2.9 -Post Debridement (cm) - Width 0.2 -Post Debridement (cm) - Depth 0.3 -Total Square (Post) (cm) 0.58 -Area of Debridement (cm) - Length 2.9 -Area of Debridement (cm) - Width 0.2 -Total Square (Area) (cm) 0.58 -Tunneling No -Undermining/Tunneling No -Circular Undermining No -Wound/Ulcer Outcome Not Healed -Ulcer Cleansing Rinsed/ Irrigated with Saline -Foul Odor after Cleansing No -Bioengineered Tissue No -Bleeding Controlled with Pressure -Offloading No -Treatment Response Procedure Tolerated Well -Debridement - Subq, 1st 20sq cm Yes Pain Scale: 0-10 Numeric Is Patient Pain Free? Yes - Nurse 3 - General Ulcer D/C NN Start: 03/06/21 10:56 Freq: Status: Active Protocol: Activity Type Activity Date Activity User E-Sign Co-Sign Detail Recorded Client Recorded Date Recorded By Document 03/06/21 11:39 MW Desktop 03/06/21 11:41 MW 03/06/21 11:39 Wound Care Nurse 3 #1- L LATERAL HEEL -Ulcer Cleansing Rinsed/ Irrigated with Saline -Foul Odor after Cleansing No -Negative Pressure Wound Therapy N/A -Primary Dressing Applied C Hydrogel ($) -Primary Dressing Covered/Secured with Dry Gauze & Roll Gauze, Secured with Tape Treatment Response Procedure Tolerated Well Pain Scale: 0-10 Numeric Is Patient Pain Free? Yes Teaching: Wound Center Dressing Your Wound -Person Taught Patient,Family -Teaching Method Discussion, Demonstration -Response to teaching Verbalize understanding WC - Visit Discharge Discharge Condition Stable Ambulatory Status Ambulatory Transportation Private Auto Accompanied by Medication Reconcilliation completed & No provided to patient/care provider Clinical Summary of Care Provided Yes Wound debrided: Lateral heel Laterality: Left Wound Grade/Stage: Barker 3 Type of Debridement: Excisional debridement Anesthesia Used: 4% Lidocaine Solution Depth: in the subcutaneous layer Percentage of wound debrided: 100 Instrument Used: #15 blade Tissue Removed: includes fibrous, devitalized, biofilm, callus and slough tissue Severity: Fat Layer Exposed Amount of bleeding with debridement: Mild Bleeding Controlled with: Pressure Patient tolerated procedure: Patient tolerated procedure well Assessment/Plan Assessment/Plan (1) Non-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: CODE(S): L97.422 - Non-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 (2) Type 2 diabetes mellitus with foot ulcer: CODE(S): E11.621 - Type 2 diabetes mellitus with foot ulcer; L97.509 - Non-pressure chronic ulcer of other part of unspecified foot with unspecified severity QUALIFIERS: Diabetes mellitus umbrella supervisor insulin use: unspecified umbrella supervisor insulin use status Qualified Code(s): E11.621 - Type 2 diabetes mellitus with foot ulcer; L97.509 - Non-pressure chronic ulcer of other part of unspecified foot with unspecified severity (3) Peripheral vascular occlusive disease: CODE(S): I73.9 - Peripheral vascular disease, unspecified (4) Amputation at midfoot: CODE(S): S98.319A - Complete traumatic amputation of unspecified midfoot, initial encounter QUALIFIERS: Encounter type: subsequent encounter Laterality: left Qualified Code(s): S98.312D - Complete traumatic amputation of left midfoot, subsequent encounter (5) Chronic diastolic (congestive) heart failure: CODE(S): I50.32 - Chronic diastolic (congestive) heart failure PLAN: Patient seen and examined. Lateral heel wound is improved. There was some callus buildup periwound ulceration with excessive tissue beyond normal bounds which may have contributed to this pain. This callus was sharply debrided without incident. Cultures from 10/03/20 showing Corynebacterium amycolatum, Staphylococcus aureus, Klebsiella pneumoniae, E. coli. Patient's creatinine clearance was 57 on 08/08/2020. On 10/24/2020 new cultures were obtained which were shown to grow Pseudomonas aerginosum, E. coli, Enterobacter cloacae, porhyromonas. Reviewed MRI from 10/20/2020 demonstrated acute osteomyelitis to the left calcaneus. Patient wishes to treat with antibiotics. Patient saw Dr. Garnett who started him on multiple oral antibiotics including Flagyl, doxycycline, Cefadrxil for 42 days. Patient has since finished course Patient underwent vascular intervention on 08/15/[address] Jeff and again on 09/20/20. Patient has had previous surgical intervention with Dr. Jeff in the past as well. He had recent arterial studies on 06/13/20 showing monophasic waveforms and noncompressible bilateral PT and DP on the right with an left PAYAL of 0.78 on left. Discussed at length the importance of offloading with the patient in order to allow proper wound healing. Patient has a walker. Patient also has a surgical shoe with cut out to offload the heel. Patient relates more comfort noted when wearing his diabetic shoes. He has been wearing those instead. Discussed with patient the importance of proper nutrition and blood sugar control to also aid in wound healing. Patient and educated on proper dressing changes. Patient to use hydrogel DSD daily after washing area with soap and water. To continue with TheraSkin skin grafts. Patient noted to have passed the application period allowed by insurance even though grafts allotment hadn't been reached. We will reapply as we have had significant improvement with its use. Plan to resume wound graft upon approve to finish healing process All questions answered. Patient is to follow-up in 1-2 week. This note was generated with [employer] dictation software. It may contain incorrec t words, spelling, and punctuation that were not noted in checking the note before signing.
[2021-03-13 11:01] VITALS: BP 129/60; PULSE 95; RESP 16; TEMP 36.3; BMI 22.7
--- NOTE | 2021-03-13 12:42 | PCM.WC.PN ---
History of Present Illness Date of Service: 03/13/21 Chief Complaint: Left heel and lateral foot ulcerations osteomyelitis Peripheral vascular disease History of Wound: Patient is a 76-year-old male who presents to the wound care center after being seen in office by Dr[facility]ae[facility] for chronic left foot wound. 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 He also has had left posterior heel ulceration. Patient had an angioplasty intervention with Dr. Jeff on 08/15/20. Patient had another intervention 09/20/20. Patient has a history of peripheral vascular disease and has had surgical intervention in the past. Patient had MRI obtained 10/20/2020 demonstrating a large open wound is present in the lateral posterior and plantar aspect of the calcaneal process with associated mild cortical thinning and mild to moderate underlying edema due to active osteomyelitis. Patient followed up with Dr. Garnett per he was started on oral antibiotics to manage the osteomyelitis. Patient is currently taking doxycycline, cefadroxil and Flagyl 42 days. Patient has since finished this course of treatment. Patient has begun TheraSkin skin graft applications after approval was taken by insurance. Progress of Wound: Improved with less less hyper granulation tissue noted periwound Subjective Subjective Patient seen and examined resting comfortably. Patient denies any new pedal complaints. Patient denies any nausea, fever, chills, chest pain, shortness of breath, cough, streaking, purulence, vomiting. Objective Data Objective Data Vital Signs: Vital Signs Temp Pulse Resp BP 97.4 F L 95 16 129/60 H 03/13/21 11:01 03/13/21 11:01 03/13/21 11:01 03/13/21 11:01 Oxygen Delivery Method Room Air Weight: 79.379 kg Body Mass Index (BMI) 22.7 Physical Exam Narrative Const alert and no apparent distress General Appearance: cooperative and comfortable Lymph Lymphatic: no lymphedema noted Resp normal respiratory effort Effort and Inspection: able to speak in complete sentences Extremity no calf tenderness, negative rambo and gipson sign no lower extremity edema General Extremity: no tenderness to palpation of joints or extremities; Negative for clubbing or cyanosis or ecchymosis or erythema Vasc Peripheral Pulses:posterior tibial pulses present but diminished and dorsalis pedis pulses present but diminished, normal capillary refill, no acute ischemic skin changes noted, normal temperature Skin General Skin Exam: dry skin, decreased hair growth noted; Negative for ecchymosis, eschar, pallor, rashes Wound Narrative: Left lateral heel ulceration. No malodor, erythema, purulence, probing to bone, streaking, fluctuation, crepitus, or other signs of infection. Skin is atrophic and hairless. There remains some excess skin growth tissue noted periwound. The depth is significantly improved to the wound. There is buildup of minimal surrounding callus. Left lateral forefoot ulceration remains healed Neuro Gait (Neuro): heel to toe Sensory Exam: extremities light-touch: decreased MSK Motor Exam: strength 5/5 throughout, ROM to foot and ankle joints within normal limits, Left TMA noted Psych Appearance: appropriate Attitude: calm Debridement Note Debridement Note Post-Debridement Measurements and Additional Note: Post-Debridement Measurements/Treatment - Nurse 1 - General Ulcer Assessment Start: 03/06/21 10:56 Freq: Status: Active Protocol: .LOWEXT Activity Type Activity Date Activity User E-Sign Co-Sign Detail Recorded Client Recorded Date Recorded By Document 03/06/21 10:57 DL Desktop 03/06/21 11:06 DL Document 03/13/21 11:01 MW Desktop 03/13/21 11:06 MW 03/06/21 03/13/21 10:57 11:01 - Today's Visit Information Type of service Follow-up Visit Follow-up Visit (Physician/PHARMACEUTICAL PHYSICIAN (Physician/PHARMACEUTICAL PHYSICIAN ) ) Arrival Mode Ambulatory Ambulatory Transfer Assistance None None Transfer Assist (Other) Patient Identification Verified (Name & Yes ) Patient Requires Transmission-Based No No Precautions Safety Precautions NA Finger Stick Blood Sugar(mg/dl) (if 197 indicated): Blood Sugar Stated by Patient Height and Weight Body Mass Index (BMI) 22.7 22.7 BMI Classification Normal Normal Vital Signs Temperature (97.8 F-99.1 F) 98.4 F 97.4 F L Temperature Source Temporal Temporal Pulse Rate (60-100) 95 95 Pulse Location Monitor Monitor Respiratory Rate (12-18) 20 H 16 Respiratory rate source Observation Observation Oxygen Delivery Method Room Air Blood Pressure (90/60-120/80) 146/87 H 129/60 H Blood Pressure Mean (mm Hg) 106 83 Source Monitor Monitor Position Sitting Blood Pressure Location Left Arm History Since Last Visit- (Skip if this is Patient's initial visit) Have you changed medications since your No No last visit? Any new allergies or adverse reactions No No Had a fall/change in ADL's that may No No increase risk of falls Signs or symptoms of abuse and/or No No neglect since last visit Have you been in the hospital since your No No last visit? Has dressing in place as prescribed Yes Yes Has compression in place as prescribed N/A N/A Has offloadiing in place as prescribed Yes N/A Experienced any changes in pain level or No No management Left Footwear No Footwear Regular Shoe Right Footwear Regular Shoe Pain Scale: 0-10 Numeric Is Patient Pain Free? Yes Yes WC - Nurse 1 - General Ulcer Measurement Start: 03/06/21 10:56 Freq: Status: Active Protocol: Activity Type Activity Date Activity User E-Sign Co-Sign Detail Recorded Client Recorded Date Recorded By Document 03/06/21 10:57 DL Desktop 03/06/21 11:06 DL Document 03/13/21 11:01 MW Desktop 03/13/21 11:06 MW 03/06/21 03/13/21 10:57 11:01 Wound Center Nurse 1 #1- L LATERAL HEEL -Combined with other wound No -Current Size (cm) - Length 1.8 1.0 -Current Size (cm) - Width 1 2.0 -Current Size (cm) - Depth 0.4 0.1 -Total Square Cm 1.8 2.00 -Photo Taken No No -Epithelialization None Present -Tunneling No -Undermining/Tunneling No -Circular Undermining No -Exudate Amt Medium Medium -Exudate Type Serosanguineous Serosanguineous -Wound Margin Thickened Flat & Intact -Granulation Amt Small (1-33%) None Present (0 %) -Granulation Quality Schulter N/A -Slough/Fibrin Yes -Necrosis Amt Large (67-100%) Large (67-100%) -Necrotic Tissue Type Adherent Slough Adherent Slough -Structure Exposed N/A N/A -Texture (Stacy-wound Skin Appearance) Scarring Assessed, Scarring -Moisture (Stacy-wound Skin Appearance) Maceration Assessed, Maceration -Color (Stacy-wound Skin Appearance) No Abnormality No Abnormality, Assessed -Temperature (Stacy-wound Skin No Abnormality No Abnormality Appearance) (Pt Warm) (Pt Warm) -Tenderness on Palpation (Stacy-wound No Yes Skin Appearance) -Ulcer Cleansing Wound Cleanser Rinsed/ Irrigated with Saline -Foul Odor after Cleansing No No -Anesthetic Used 4% Lidocaine 4% Lidocaine Solution Solution Lower Limb Edema Present No - Nurse 2 - General Ulcer CM Notes Start: 03/06/21 10:56 Freq: Status: Active Protocol: Activity Type Activity Date Activity User E-Sign Co-Sign Detail Recorded Client Recorded Date Recorded By Document 03/06/21 11:16 [id number] 03/06/21 11:22 Document 03/13/21 11:36 [id number] 03/13/21 11:40 03/06/21 03/13/21 11:16 11:36 Wound Center Nurse 2 #1- L LATERAL HEEL -Time 11:16 11:36 -Correct Patient Yes Yes -Correct Side, Site, Position Yes Yes -Correct Procedure Yes Yes -Procedure Performed Yes Yes -Type of Procedure Debridement Debridement -Clinical Debridement Subcutaneous Subcutaneous -Tissue Removed Subcutaneous Subcutaneous -Post Debridement (cm) - Length 2.9 1.8 -Post Debridement (cm) - Width 0.2 0.1 -Post Debridement (cm) - Depth 0.3 0.1 -Total Square (Post) (cm) 0.58 0.18 -Area of Debridement (cm) - Length 2.9 1.8 -Area of Debridement (cm) - Width 0.2 0.1 -Total Square (Area) (cm) 0.58 0.18 -Tunneling No No -Undermining/Tunneling No No -Circular Undermining No No -Wound/Ulcer Outcome Not Healed Not Healed -Ulcer Cleansing Rinsed/ Rinsed/ Irrigated with Irrigated with Saline Saline -Foul Odor after Cleansing No No -Bioengineered Tissue No No -Bleeding Controlled with Pressure Pressure -Offloading No No -Treatment Response Procedure Procedure Tolerated Well Tolerated Well -Debridement - Subq, 1st 20sq cm Yes Yes Pain Scale: 0-10 Numeric Is Patient Pain Free? Yes - Nurse 3 - General Ulcer D/C NN Start: 03/06/21 10:56 Freq: Status: Active Protocol: Activity Type Activity Date Activity User E-Sign Co-Sign Detail Recorded Client Recorded Date Recorded By Document 03/06/21 11:39 MW Desktop 03/06/21 11:41 MW Document 03/13/21 11:44 [id number] 03/13/21 11:44 JF 03/06/21 03/13/21 11:39 11:44 Wound Care Nurse 3 #1- L LATERAL HEEL -Ulcer Cleansing Rinsed/ Irrigated with Saline -Foul Odor after Cleansing No -Negative Pressure Wound Therapy N/A -Primary Dressing Applied C Hydrogel ($) -Primary Dressing Covered/Secured with Dry Gauze & Dry Gauze & Roll Gauze, Roll Gauze, Secured with Secured with Tape Tape Treatment Response Procedure Tolerated Well Pain Scale: 0-10 Numeric Is Patient Pain Free? Yes Yes Teaching: Wound Center Dressing Your Wound -Person Taught Patient,Family -Teaching Method Discussion, Demonstration -Response to teaching Verbalize understanding WC - Visit Discharge Discharge Condition Stable Stable Ambulatory Status Ambulatory Ambulatory Transportation Private Auto Private Auto Accompanied by Medication Reconcilliation completed & No Yes provided to patient/care provider Clinical Summary of Care Provided Yes No Wound debrided: Lateral heel Laterality: Left Wound Grade/Stage: Barker 3 Type of Debridement: Excisional debridement Anesthesia Used: 4% Lidocaine Solution Depth: in the subcutaneous layer Percentage of wound debrided: 100 Instrument Used: #15 blade Tissue Removed: includes fibrous, devitalized, biofilm, callus and slough tissue Severity: Fat Layer Exposed Amount of bleeding with debridement: Mild Bleeding Controlled with: Pressure Patient tolerated procedure: Patient tolerated procedure well Assessment/Plan Assessment/Plan (1) Non-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: CODE(S): L97.422 - Non-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 (2) Type 2 diabetes mellitus with foot ulcer: CODE(S): E11.621 - Type 2 diabetes mellitus with foot ulcer; L97.509 - Non-pressure chronic ulcer of other part of unspecified foot with unspecified severity QUALIFIERS: Diabetes mellitus superintendent terminal insulin use: unspecified superintendent terminal insulin use status Qualified Code(s): E11.621 - Type 2 diabetes mellitus with foot ulcer; L97.509 - Non-pressure chronic ulcer of other part of unspecified foot with unspecified severity (3) Peripheral vascular occlusive disease: CODE(S): I73.9 - Peripheral vascular disease, unspecified (4) Amputation at midfoot: CODE(S): S98.319A - Complete traumatic amputation of unspecified midfoot, initial encounter QUALIFIERS: Encounter type: subsequent encounter Laterality: left Qualified Code(s): S98.312D - Complete traumatic amputation of left midfoot, subsequent encounter (5) Chronic diastolic (congestive) heart failure: CODE(S): I50.32 - Chronic diastolic (congestive) heart failure PLAN: Patient seen and examined. Lateral heel wound is improved. There was some callus buildup periwound ulceration with excessive tissue beyond normal bounds which is improved. Patient underwent vascular intervention on 08/15/[address] Jeff and again on 09/20/20. Patient has had previous surgical intervention with Dr. Jeff in the past as well. He had recent arterial studies on 06/13/20 showing monophasic waveforms and noncompressible bilateral PT and DP on the right with an left PAYAL of 0.78 on left. Discussed at length the importance of offloading with the patient in order to allow proper wound healing. Patient has a walker. Patient also has a surgical shoe with cut out to offload the heel. Patient relates more comfort noted when wearing his diabetic shoes. He has been wearing those instead. Discussed with patient the importance of proper nutrition and blood sugar control to also aid in wound healing. Patient and educated on proper dressing changes. Patient to use hydrogel DSD daily after washing area with soap and water. To continue with TheraSkin skin grafts. Patient noted to have passed the application period allowed by insurance even though grafts allotment hadn't been reached. Patient was approved for continued graft application. No graft was applied today given that proper size was not available. We will plan to continue graft applications next week. All questions answered. Patient is to follow-up in 1 week. This note was generated with [employer] dictation software. It may contain incorrect words, spelling, and punctuation that were not noted in checking the note before signing.
[2021-03-20 11:17] VITALS: BP 106/75; PULSE 67; TEMP 36.4; BMI 22.7
--- NOTE | 2021-03-20 12:20 | PCM.WC.PN ---
History of Present Illness Date of Service: 03/20/21 Chief Complaint: Left heel and lateral foot ulcerations osteomyelitis Peripheral vascular disease History of Wound: Patient is a 76-year-old male who presents to the wound care center after being seen in office by Dr. Pelaez [facility] for chronic left foot wound. 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 He also has had left posterior heel ulceration. Patient had an angioplasty intervention with Dr. Jeff on 08/15/20. Patient had another intervention 09/20/20. Patient has a history of peripheral vascular disease and has had surgical intervention in the past. Patient had MRI obtained 10/20/2020 demonstrating a large open wound is present in the lateral posterior and plantar aspect of the calcaneal process with associated mild cortical thinning and mild to moderate underlying edema due to active osteomyelitis. Patient followed up with Dr. Garnett per he was started on oral antibiotics to manage the osteomyelitis. Patient is currently taking doxycycline, cefadroxil and Flagyl 42 days. Patient has since finished this course of treatment. Patient has begun TheraSkin skin graft applications after approval was taken by insurance. Progress of Wound: Improved with less less hyper granulation tissue noted periwound Subjective Subjective Patient seen and examined resting comfortably. Patient denies any new pedal complaints. Patient denies any nausea, fever, chills, chest pain, shortness of breath, cough, streaking, purulence, vomiting. Objective Data Objective Data Vital Signs: Vital Signs Temp Pulse Resp BP 97.5 F L 67 16 106/75 03/20/21 11:17 03/20/21 11:17 03/13/21 11:01 03/20/21 11:17 Oxygen Delivery Method Room Air Weight: 79.379 kg Body Mass Index (BMI) 22.7 Physical Exam Narrative Const alert and no apparent distress General Appearance: cooperative and comfortable Lymph Lymphatic: no lymphedema noted Resp normal respiratory effort Effort and Inspection: able to speak in complete sentences Extremity no calf tenderness, negative rambo and gipson sign no lower extremity edema General Extremity: no tenderness to palpation of joints or extremities; Negative for clubbing or cyanosis or ecchymosis or erythema Vasc Peripheral Pulses:posterior tibial pulses present but diminished and dorsalis pedis pulses present but diminished, normal capillary refill, no acute ischemic skin changes noted, normal temperature Skin General Skin Exam: dry skin, decreased hair growth noted; Negative for ecchymosis, eschar, pallor, rashes Wound Narrative: Left lateral heel ulceration. No malodor, erythema, purulence, probing to bone, streaking, fluctuation, crepitus, or other signs of infection. Skin is atrophic and hairless. There remains some hyperkeratotic excess skin growth tissue noted periwound. The depth is significantly improved to the wound. There is buildup of minimal surrounding callus. Left lateral forefoot ulceration remains healed Neuro Gait (Neuro): heel to toe Sensory Exam: extremities light-touch: decreased MSK Motor Exam: strength 5/5 throughout, ROM to foot and ankle joints within normal limits, Left TMA noted Psych Appearance: appropriate Attitude: calm Debridement Note Debridement Note Post-Debridement Measurements and Additional Note: Post-Debridement Measurements/Treatment - Nurse 1 - General Ulcer Assessment Start: 03/06/21 10:56 Freq: Status: Active Protocol: [email or web address] Activity Type Activity Date Activity User E-Sign Co-Sign Detail Recorded Client Recorded Date Recorded By Document 03/06/21 10:57 DL Desktop 03/06/21 11:06 DL Document 03/13/21 11:01 MW Desktop 03/13/21 11:06 MW Document 03/20/21 11:17 KR Desktop 03/20/21 11:20 KR 03/06/21 03/13/21 03/20/21 10:57 11:01 11:17 - Today's Visit Information Type of service Follow-up Visit Follow-up Visit Follow-up Visit (Physician/REFRIGERATION TECHNICIAN (Physician/REFRIGERATION TECHNICIAN (Physician/REFRIGERATION TECHNICIAN ) ) ) Arrival Mode Ambulatory Ambulatory Ambulatory Transfer Assistance None None Transfer Assist (Other) Patient Identification Verified (Name & Yes Yes ) Patient Requires Transmission-Based No No Precautions Safety Precautions NA Finger Stick Blood Sugar(mg/dl) (if 197 indicated): Blood Sugar Stated by Patient Height and Weight Body Mass Index (BMI) 22.7 22.7 22.7 BMI Classification Normal Normal Normal Vital Signs Temperature (97.8 F-99.1 F) 98.4 F 97.4 F L 97.5 F L Temperature Source Temporal Temporal Temporal Pulse Rate (60-100) 95 95 67 Pulse Location Monitor Monitor Monitor Respiratory Rate (12-18) 20 H 16 Respiratory rate source Observation Observation Oxygen Delivery Method Room Air Blood Pressure (90/60-120/80) 146/87 H 129/60 H 106/75 Blood Pressure Mean (mm Hg) 106 83 85 Source Monitor Monitor Monitor Position Sitting Semi-Fowlers Blood Pressure Location Left Arm Right Arm History Since Last Visit- (Skip if this is Patient's initial visit) Have you changed medications since your No No No last visit? Any new allergies or adverse reactions No No No Had a fall/change in ADL's that may No No No increase risk of falls Signs or symptoms of abuse and/or No No No neglect since last visit Have you been in the hospital since your No No No last visit? Has dressing in place as prescribed Yes Yes Yes Has compression in place as prescribed N/A N/A N/A Has offloadiing in place as prescribed Yes N/A N/A Experienced any changes in pain level or No No No management Left Footwear No Footwear Regular Shoe Regular Shoe Right Footwear Regular Shoe Regular Shoe Pain Scale: 0-10 Numeric Is Patient Pain Free? Yes Yes Yes WC - Nurse 1 - General Ulcer Measurement Start: 03/06/21 10:56 Freq: Status: Active Protocol: Activity Type Activity Date Activity User E-Sign Co-Sign Detail Recorded Client Recorded Date Recorded By Document 03/06/21 10:57 DL Desktop 03/06/21 11:06 DL Document 03/13/21 11:01 MW Desktop 03/13/21 11:06 MW Document 03/20/21 11:17 KR Desktop 03/20/21 11:20 KR 03/06/21 03/13/21 03/20/21 10:57 11:01 11:17 Wound Center Nurse 1 #1- L LATERAL HEEL -Combined with other wound No -Current Size (cm) - Length 1.8 1.0 3 -Current Size (cm) - Width 1 2.0 0.1 -Current Size (cm) - Depth 0.4 0.1 0.4 -Total Square Cm 1.8 2.00 0.3 -Photo Taken No No -Epithelialization None Present -Tunneling No -Undermining/Tunneling No -Circular Undermining No -Exudate Amt Medium Medium Small -Exudate Type Serosanguineous Serosanguineous Serosanguineous -Wound Margin Thickened Flat & Intact Distinct, Outline Attached -Granulation Amt Small (1-33%) None Present (0 Small (1-33%) %) -Granulation Quality [place] N/A Red -Slough/Fibrin Yes -Necrosis Amt Large (67-100%) Large (67-100%) Small (1-33%) -Necrotic Tissue Type Adherent Slough Adherent Slough Adherent Slough -Structure Exposed N/A N/A -Texture (Stacy-wound Skin Appearance) Scarring Assessed, Assessed, Scarring Scarring -Moisture (Stacy-wound Skin Appearance) Maceration Assessed, No Abnormality, Maceration Assessed -Color (Stacy-wound Skin Appearance) No Abnormality No Abnormality, No Abnormality, Assessed Assessed -Temperature (Stacy-wound Skin No Abnormality No Abnormality No Abnormality Appearance) (Pt Warm) (Pt Warm) (Pt Warm) -Tenderness on Palpation (Stacy-wound No Yes No Skin Appearance) -Ulcer Cleansing Wound Cleanser Rinsed/ Rinsed/ Irrigated with Irrigated with Saline Saline -Foul Odor after Cleansing No No No -Anesthetic Used 4% Lidocaine 4% Lidocaine 4% Lidocaine Solution Solution Solution Lower Limb Edema Present No - Nurse 2 - General Ulcer CM Notes Start: 03/06/21 10:56 Freq: Status: Active Protocol: Activity Type Activity Date Activity User E-Sign Co-Sign Detail Recorded Client Recorded Date Recorded By Document 03/06/21 11:16 [id number] 03/06/21 11:22 Document 03/13/21 11:36 [id number] 03/13/21 11:40 Document 03/20/21 11:29 [id number] 03/20/21 11:36 03/06/21 03/13/21 03/20/21 11:16 11:36 11:29 Wound Center Nurse 2 #1- L LATERAL HEEL -Time 11:16 11:36 11:30 -Correct Patient Yes Yes Yes -Correct Side, Site, Position Yes Yes Yes -Correct Procedure Yes Yes Yes -Procedure Performed Yes Yes Yes -Type of Procedure Debridement Debridement Debridement -Clinical Debridement Subcutaneous Subcutaneous Subcutaneous -Tissue Removed Subcutaneous Subcutaneous Subcutaneous -Post Debridement (cm) - Length 2.9 1.8 1.3 -Post Debridement (cm) - Width 0.2 0.1 0.2 -Post Debridement (cm) - Depth 0.3 0.1 0.2 -Total Square (Post) (cm) 0.58 0.18 0.26 -Area of Debridement (cm) - Length 2.9 1.8 1.3 -Area of Debridement (cm) - Width 0.2 0.1 0.2 -Total Square (Area) (cm) 0.58 0.18 0.26 -Tunneling No No No -Undermining/Tunneling No No -Circular Undermining No No No -Wound/Ulcer Outcome Not Healed Not Healed Not Healed -Ulcer Cleansing Rinsed/ Rinsed/ Rinsed/ Irrigated with Irrigated with Irrigated with Saline Saline Saline -Foul Odor after Cleansing No No No -Bioengineered Tissue No No Yes -Type of Bioengineered Tissue Theraskin -Expiration Date 09/02/24 -Product Lot Number [id number] -Percent Used 100 -Lot number of Saline Used [id number] -Bleeding Controlled with Pressure Pressure Pressure -Offloading No No Yes -Type of Offloading Surgical Shoe -Treatment Response Procedure Procedure Procedure Tolerated Well Tolerated Well Tolerated Well -Debridement - Subq, 1st 20sq cm Yes Yes No -Apply Skin Sub - 1st 25 sq cm - Feet 1 -Theraskin (per sq cm) 3 Pain Scale: 0-10 Numeric Is Patient Pain Free? Yes Yes WC - Nurse 3 - General Ulcer D/C NN Start: 03/06/21 10:56 Freq: Status: Active Protocol: Activity Type Activity Date Activity User E-Sign Co-Sign Detail Recorded Client Recorded Date Recorded By Document 03/06/21 11:39 MW Desktop 03/06/21 11:41 Document 03/13/21 11:44 [id number] 03/13/21 11:44 Document 03/20/21 11:41 [id number] 03/20/21 11:42 03/06/21 03/13/21 03/20/21 11:39 11:44 11:41 Wound Care Nurse 3 #1- L LATERAL HEEL -Ulcer Cleansing Rinsed/ Rinsed/ Irrigated with Irrigated with Saline Saline -Foul Odor after Cleansing No No -Negative Pressure Wound Therapy N/A -Primary Dressing Applied C Hydrogel ($) -Primary Dressing Covered/Secured with Dry Gauze & Dry Gauze & Dry Gauze & Roll Gauze, Roll Gauze, Roll Gauze, Secured with Secured with Secured with Tape Tape Tape Treatment Response Procedure Tolerated Well Pain Scale: 0-10 Numeric Is Patient Pain Free? Yes Yes Yes Teaching: Wound Center Dressing Your Wound -Person Taught Patient,Family -Teaching Method Discussion, Demonstration -Response to teaching Verbalize understanding WC - Visit Discharge Discharge Condition Stable Stable Stable Ambulatory Status Ambulatory Ambulatory Ambulatory Transportation Private Auto Private Auto Private Auto Accompanied by Medication Reconcilliation completed & No Yes Yes provided to patient/care provider Clinical Summary of Care Provided Yes No Yes Wound debrided: Lateral heel Laterality: Left Wound Grade/Stage: Barker 3 Type of Debridement: Excisional debridement Anesthesia Used: 4% Lidocaine Solution Depth: in the subcutaneous layer Percentage of wound debrided: 100 Instrument Used: #15 blade Tissue Removed: includes fibrous, devitalized, biofilm, callus and slough tissue Severity: Fat Layer Exposed Amount of bleeding with debridement: Mild Bleeding Controlled with: Pressure Patient tolerated procedure: Patient tolerated procedure well Assessment/Plan Assessment/Plan (1) Non-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: CODE(S): L97.422 - Non-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 (2) Type 2 diabetes mellitus with foot ulcer: CODE(S): E11.621 - Type 2 diabetes mellitus with foot ulcer; L97.509 - Non-pressure chronic ulcer of other part of unspecified foot with unspecified severity QUALIFIERS: Diabetes mellitus exterminator helper termite insulin use: unspecified exterminator helper termite insulin use status Qualified Code(s): E11.621 - Type 2 diabetes mellitus with foot ulcer; L97.509 - Non-pressure chronic ulcer of other part of unspecified foot with unspecified severity (3) Peripheral vascular occlusive disease: CODE(S): I73.9 - Peripheral vascular disease, unspecified (4) Amputation at midfoot: CODE(S): S98.319A - Complete traumatic amputation of unspecified midfoot, initial encounter QUALIFIERS: Encounter type: subsequent encounter Laterality: left Qualified Code(s): S98.312D - Complete traumatic amputation of left midfoot, subsequent encounter (5) Chronic diastolic (congestive) heart failure: CODE(S): I50.32 - Chronic diastolic (congestive) heart failure PLAN: Patient seen and examined with present Lateral heel wound is improved. There was some callus buildup periwound ulceration with excessive tissue beyond normal bounds which is improved. Patient underwent vascular intervention on 08/15/[address] Jeff and again on 09/20/20. Patient has had previous surgical intervention with Dr. Jeff in the past as well. He had recent arterial studies on 06/13/20 showing monophasic waveforms and noncompressible bilateral PT and DP on the right with an left PAYAL of 0.78 on left. Discussed at length the importance of offloading with the patient in order to allow proper wound healing. Patient has a walker. Patient also has a surgical shoe with cut out to offload the heel. Patient relates more comfort noted when wearing his diabetic shoes. He has been wearing those instead. Discussed with patient the importance of proper nutrition and blood sugar control to also aid in wound healing. Patient and educated on proper dressing changes. Patient to use hydrogel DSD daily after washing area with soap and water. To continue with TheraSkin skin grafts. I recommend application of advanced wound healing product to the indicated ulceration. Prior authorization was confirmed. The indications, benefits, anticipated application and healing time management were reviewed in detail. Verbal consent was obtained in the procedure for today. Site was debrided and graft was applied according to standard protocol and was further secured with a nonadherent dressing and Steri-Strips. Patient instructed that they can change outer dressing but not to go beneath the Steri-Strips. All questions answered. Patient is to follow-up in 2 week. This note was generated with [employer] dictation software. It may contain incorrect words, spelling, and punctuation that were not noted in checking the note before signing.
[2021-04-03 11:03] VITALS: BP 123/77; PULSE 89; RESP 20; TEMP 36.4; BMI 22.7
--- NOTE | 2021-04-03 12:46 | PCM.WC.PN ---
History of Present Illness Date of Service: 04/03/21 Chief Complaint: Left heel and lateral foot ulcerations osteomyelitis Peripheral vascular disease History of Wound: Patient is a 76-year-old male who presents to the wound care center after being seen in office by Dr. Pelaez [facility] for chronic left foot wound. 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 He also has had left posterior heel ulceration. Patient had an angioplasty intervention with Dr. Jeff on 08/15/20. Patient had another intervention 09/20/20. Patient has a history of peripheral vascular disease and has had surgical intervention in the past. Patient had MRI obtained 10/20/2020 demonstrating a large open wound is present in the lateral posterior and plantar aspect of the calcaneal process with associated mild cortical thinning and mild to moderate underlying edema due to active osteomyelitis. Patient followed up with Dr. Garnett per he was started on oral antibiotics to manage the osteomyelitis. Patient is currently taking doxycycline, cefadroxil and Flagyl 42 days. Patient has since finished this course of treatment. Patient has begun TheraSkin skin graft applications after approval was taken by insurance. Progress of Wound: Improved with less less hyper granulation tissue noted periwound Subjective Subjective Patient seen and examined resting comfortably. Patient denies any new pedal complaints. Patient denies any nausea, fever, chills, chest pain, shortness of breath, cough, streaking, purulence, vomiting. Objective Data Objective Data Vital Signs: Vital Signs Temp Pulse Resp BP 97.6 F L 89 20 H 123/77 H 04/03/21 11:03 04/03/21 11:03 04/03/21 11:03 04/03/21 11:03 Oxygen Delivery Method Room Air Weight: 79.379 kg Body Mass Index (BMI) 22.7 Physical Exam Narrative Const alert and no apparent distress General Appearance: cooperative and comfortable Lymph Lymphatic: no lymphedema noted Resp normal respiratory effort Effort and Inspection: able to speak in complete sentences Extremity no calf tenderness, negative rambo and gipson sign no lower extremity edema General Extremity: no tenderness to palpation of joints or extremities; Negative for clubbing or cyanosis or ecchymosis or erythema Vasc Peripheral Pulses:posterior tibial pulses present but diminished and dorsalis pedis pulses present but diminished, normal capillary refill, no acute ischemic skin changes noted, normal temperature Skin General Skin Exam: dry skin, decreased hair growth noted; Negative for ecchymosis, eschar, pallor, rashes Wound Narrative: Left lateral heel ulceration. No malodor, erythema, purulence, probing to bone, streaking, fluctuation, crepitus, or other signs of infection. Skin is atrophic and hairless. There remains some hyperkeratotic excess skin growth tissue noted periwound. There is buildup of surrounding callus. Ulcer is noted to be more of a slit at this time Left lateral forefoot ulceration remains healed Neuro Gait (Neuro): heel to toe Sensory Exam: extremities light-touch: decreased MSK Motor Exam: strength 5/5 throughout, ROM to foot and ankle joints within normal limits, Left TMA noted Psych Appearance: appropriate Attitude: calm Debridement Note Debridement Note Post-Debridement Measurements and Additional Note: Post-Debridement Measurements/Treatment - Nurse 1 - General Ulcer Assessment Start: 03/06/21 10:56 Freq: Status: Active Protocol: YANNI Activity Type Activity Date Activity User E-Sign Co-Sign Detail Recorded Client Recorded Date Recorded By Document 03/06/21 10:57 DL Desktop 03/06/21 11:06 DL Document 03/13/21 11:01 MW Desktop 03/13/21 11:06 MW Document 03/20/21 11:17 KR Desktop 03/20/21 11:20 KR Document 04/03/21 11:03 DL [id number] 04/03/21 11:07 DL 03/06/21 03/13/21 03/20/21 10:57 11:01 11:17 - Today's Visit Information Type of service Follow-up Visit Follow-up Visit Follow-up Visit (Physician/RESIDENCE HALL DIRECTOR (Physician/RESIDENCE HALL DIRECTOR (Physician/RESIDENCE HALL DIRECTOR ) ) ) Arrival Mode Ambulatory Ambulatory Ambulatory Transfer Assistance None None Transfer Assist (Other) Patient Identification Verified (Name & Yes Yes ) Patient Requires Transmission-Based No No Precautions Safety Precautions NA Finger Stick Blood Sugar(mg/dl) (if 197 indicated): Blood Sugar Stated by Patient Height and Weight Body Mass Index (BMI) 22.7 22.7 22.7 BMI Classification Normal Normal Normal Vital Signs Temperature (97.8 F-99.1 F) 98.4 F 97.4 F L 97.5 F L Temperature Source Temporal Temporal Temporal Pulse Rate (60-100) 95 95 67 Pulse Location Monitor Monitor Monitor Respiratory Rate (12-18) 20 H 16 Respiratory rate source Observation Observation Oxygen Delivery Method Room Air Blood Pressure (90/60-120/80) 146/87 H 129/60 H 106/75 Blood Pressure Mean (mm Hg) 106 83 85 Source Monitor Monitor Monitor Position Sitting Semi-Fowlers Blood Pressure Location Left Arm Right Arm History Since Last Visit- (Skip if this is Patient's initial visit) Have you changed medications since your No No No last visit? Any new allergies or adverse reactions No No No Had a fall/change in ADL's that may No No No increase risk of falls Signs or symptoms of abuse and/or No No No neglect since last visit Have you been in the hospital since your No No No last visit? Has dressing in place as prescribed Yes Yes Yes Has compression in place as prescribed N/A N/A N/A Has offloadiing in place as prescribed Yes N/A N/A Experienced any changes in pain level or No No No management Left Footwear No Footwear Regular Shoe Regular Shoe Right Footwear Regular Shoe Regular Shoe Pain Scale: 0-10 Numeric Is Patient Pain Free? Yes Yes Yes 04/03/21 11:03 WC - Today's Visit Information Type of service Follow-up Visit (Physician/RESIDENCE HALL DIRECTOR ) Arrival Mode Ambulatory Transfer Assistance None Transfer Assist (Other) Patient Identification Verified (Name & Yes ) Patient Requires Transmission-Based No Precautions Safety Precautions Finger Stick Blood Sugar(mg/dl) (if indicated): Blood Sugar Height and Weight Body Mass Index (BMI) 22.7 BMI Classification Normal Vital Signs Temperature (97.8 F-99.1 F) 97.6 F L Temperature Source Temporal Pulse Rate (60-100) 89 Pulse Location Monitor Respiratory Rate (12-18) 20 H Respiratory rate source Observation Oxygen Delivery Method Blood Pressure (90/60-120/80) 123/77 H Blood Pressure Mean (mm Hg) 92 Source Monitor Position Blood Pressure Location History Since Last Visit- (Skip if this is Patient's initial visit) Have you changed medications since your No last visit? Any new allergies or adverse reactions No Had a fall/change in ADL's that may No increase risk of falls Signs or symptoms of abuse and/or No neglect since last visit Have you been in the hospital since your No last visit? Has dressing in place as prescribed Yes Has compression in place as prescribed N/A Has offloadiing in place as prescribed Yes Experienced any changes in pain level or No management Left Footwear Right Footwear Pain Scale: 0-10 Numeric Is Patient Pain Free? Yes WC - Nurse 1 - General Ulcer Measurement Start: 03/06/21 10:56 Freq: Status: Active Protocol: Activity Type Activity Date Activity User E-Sign Co-Sign Detail Recorded Client Recorded Date Recorded By Document 03/06/21 10:57 DL Desktop 03/06/21 11:06 DL Document 03/13/21 11:01 MW Desktop 03/13/21 11:06 MW Document 03/20/21 11:17 KR Desktop 03/20/21 11:20 KR Document 04/03/21 11:03 DL [id number] 04/03/21 11:07 DL 03/06/21 03/13/21 03/20/21 10:57 11:01 11:17 Wound Center Nurse 1 #1- L LATERAL HEEL -Combined with other wound No -Current Size (cm) - Length 1.8 1.0 3 -Current Size (cm) - Width 1 2.0 0.1 -Current Size (cm) - Depth 0.4 0.1 0.4 -Total Square Cm 1.8 2.00 0.3 -Photo Taken No No -Epithelialization None Present -Tunneling No -Undermining/Tunneling No -Circular Undermining No -Exudate Amt Medium Medium Small -Exudate Type Serosanguineous Serosanguineous Serosanguineous -Wound Margin Thickened Flat & Intact Distinct, Outline Attached -Granulation Amt Small (1-33%) None Present (0 Small (1-33%) %) -Granulation Quality [place] N/A Red -Slough/Fibrin Yes -Necrosis Amt Large (67-100%) Large (67-100%) Small (1-33%) -Necrotic Tissue Type Adherent Slough Adherent Slough Adherent Slough -Structure Exposed N/A N/A -Texture (Stacy-wound Skin Appearance) Scarring Assessed, Assessed, Scarring Scarring -Moisture (Stacy-wound Skin Appearance) Maceration Assessed, No Abnormality, Maceration Assessed -Color (Stacy-wound Skin Appearance) No Abnormality No Abnormality, No Abnormality, Assessed Assessed -Temperature (Stacy-wound Skin No Abnormality No Abnormality No Abnormality Appearance) (Pt Warm) (Pt Warm) (Pt Warm) -Tenderness on Palpation (Stacy-wound No Yes No Skin Appearance) -Ulcer Cleansing Wound Cleanser Rinsed/ Rinsed/ Irrigated with Irrigated with Saline Saline -Foul Odor after Cleansing No No No -Anesthetic Used 4% Lidocaine 4% Lidocaine 4% Lidocaine Solution Solution Solution Lower Limb Edema Present No 04/03/21 11:03 Wound Center Nurse 1 #1- L LATERAL HEEL -Combined with other wound -Current Size (cm) - Length 3 -Current Size (cm) - Width 1 -Current Size (cm) - Depth 0.1 -Total Square Cm 3 -Photo Taken No -Epithelialization -Tunneling -Undermining/Tunneling -Circular Undermining -Exudate Amt None Present -Exudate Type -Wound Margin Thickened -Granulation Amt -Granulation Quality [place] -Slough/Fibrin -Necrosis Amt Large (67-100%) -Necrotic Tissue Type Eschar -Structure Exposed N/A -Texture (Stcay-wound Skin Appearance) Scarring -Moisture (Stacy-wound Skin Appearance) Dry/Scaly -Color (Stacy-wound Skin Appearance) No Abnormality -Temperature (Stacy-wound Skin No Abnormality Appearance) (Pt Warm) -Tenderness on Palpation (Stacy-wound No Skin Appearance) -Ulcer Cleansing Wound Cleanser -Foul Odor after Cleansing No -Anesthetic Used 4% Lidocaine Solution Lower Limb Edema Present - Nurse 2 - General Ulcer CM Notes Start: 03/06/21 10:56 Freq: Status: Active Protocol: Activity Type Activity Date Activity User E-Sign Co-Sign Detail Recorded Client Recorded Date Recorded By Document 03/06/21 11:16 [id number] 03/06/21 11:22 Document 03/13/21 11:36 [id number] 03/13/21 11:40 Document 03/20/21 11:29 [id number] 03/20/21 11:36 Document 04/03/21 11:32 [id number] 04/03/21 11:33 03/06/21 03/13/21 03/20/21 11:16 11:36 11:29 Wound Center Nurse 2 #1- L LATERAL HEEL -Time 11:16 11:36 11:30 -Correct Patient Yes Yes Yes -Correct Side, Site, Position Yes Yes Yes -Correct Procedure Yes Yes Yes -Procedure Performed Yes Yes Yes -Type of Procedure Debridement Debridement Debridement -Clinical Debridement Subcutaneous Subcutaneous Subcutaneous -Tissue Removed Subcutaneous Subcutaneous Subcutaneous -Post Debridement (cm) - Length 2.9 1.8 1.3 -Post Debridement (cm) - Width 0.2 0.1 0.2 -Post Debridement (cm) - Depth 0.3 0.1 0.2 -Total Square (Post) (cm) 0.58 0.18 0.26 -Area of Debridement (cm) - Length 2.9 1.8 1.3 -Area of Debridement (cm) - Width 0.2 0.1 0.2 -Total Square (Area) (cm) 0.58 0.18 0.26 -Tunneling No No No -Undermining/Tunneling No No -Circular Undermining No No No -Wound/Ulcer Outcome Not Healed Not Healed Not Healed -Ulcer Cleansing Rinsed/ Rinsed/ Rinsed/ Irrigated with Irrigated with Irrigated with Saline Saline Saline -Foul Odor after Cleansing No No No -Bioengineered Tissue No No Yes -Type of Bioengineered Tissue Theraskin -Expiration Date 09/02/24 -Product Lot Number [id number] -Percent Used 100 -Lot number of Saline Used [id number] -Bleeding Controlled with Pressure Pressure Pressure -Offloading No No Yes -Type of Offloading Surgical Shoe -Treatment Response Procedure Procedure Procedure Tolerated Well Tolerated Well Tolerated Well -Debridement - Subq, 1st 20sq cm Yes Yes No -Apply Skin Sub - 1st 25 sq cm - Feet 1 -[place]askin (per sq cm) 3 Pain Scale: 0-10 Numeric Is Patient Pain Free? Yes Yes 04/03/21 11:32 Wound Center Nurse 2 #1- L LATERAL HEEL -Time 11:32 -Correct Patient Yes -Correct Side, Site, Position Yes -Correct Procedure Yes -Procedure Performed Yes -Type of Procedure Debridement -Clinical Debridement Subcutaneous -Tissue Removed Subcutaneous -Post Debridement (cm) - Length 1.2 -Post Debridement (cm) - Width 0.1 -Post Debridement (cm) - Depth 0.2 -Total Square (Post) (cm) 0.12 -Area of Debridement (cm) - Length 1.2 -Area of Debridement (cm) - Width 0.1 -Total Square (Area) (cm) 0.12 -Tunneling No -Undermining/Tunneling No -Circular Undermining No -Wound/Ulcer Outcome Not Healed -Ulcer Cleansing Rinsed/ Irrigated with Saline -Foul Odor after Cleansing No -Bioengineered Tissue No -Type of Bioengineered Tissue -Expiration Date -Product Lot Number -Percent Used -Lot number of Saline Used -Bleeding Controlled with Pressure -Offloading No -Type of Offloading -Treatment Response Procedure Tolerated Well -Debridement - Subq, 1st 20sq cm Yes -Apply Skin Sub - 1st 25 sq cm - Feet -Theraskin (per sq cm) Pain Scale: 0-10 Numeric Is Patient Pain Free? Yes - Nurse 3 - General Ulcer D/C NN Start: 03/06/21 10:56 Freq: Status: Active Protocol: Activity Type Activity Date Activity User E-Sign Co-Sign Detail Recorded Client Recorded Date Recorded By Document 03/06/21 11:39 MW Desktop 03/06/21 11:41 MW Document 03/13/21 11:44 [id number] 03/13/21 11:44 JF Document 03/20/21 11:41 [id number] 03/20/21 11:42 JF Document 04/03/21 11:33 [id number] 04/03/21 11:34 JF 03/06/21 03/13/21 03/20/21 11:39 11:44 11:41 Wound Care Nurse 3 #1- L LATERAL HEEL -Ulcer Cleansing Rinsed/ Rinsed/ Irrigated with Irrigated with Saline Saline -Foul Odor after Cleansing No No -Negative Pressure Wound Therapy N/A -Primary Dressing Applied C Hydrogel ($) -Primary Dressing Covered/Secured with Dry Gauze & Dry Gauze & Dry Gauze & Roll Gauze, Roll Gauze, Roll Gauze, Secured with Secured with Secured with Tape Tape Tape Treatment Response Procedure Tolerated Well Pain Scale: 0-10 Numeric Is Patient Pain Free? Yes Yes Yes Teaching: Wound Center Dressing Your Wound -Person Taught Patient,Family -Teaching Method Discussion, Demonstration -Response to teaching Verbalize understanding WC - Visit Discharge Discharge Condition Stable Stable Stable Ambulatory Status Ambulatory Ambulatory Ambulatory Transportation Private Auto Private Auto Private Auto Accompanied by Medication Reconcilliation completed & No Yes Yes provided to patient/care provider Clinical Summary of Care Provided Yes No Yes 04/03/21 11:33 Wound Care Nurse 3 #1- L LATERAL HEEL -Ulcer Cleansing Rinsed/ Irrigated with Saline -Foul Odor after Cleansing No -Negative Pressure Wound Therapy -Primary Dressing Applied C Hydrogel ($) -Primary Dressing Covered/Secured with Dry Gauze & Roll Gauze, Secured with Tape Treatment Response Pain Scale: 0-10 Numeric Is Patient Pain Free? Yes Teaching: Wound Center Dressing Your Wound -Person Taught -Teaching Method -Response to teaching WC - Visit Discharge Discharge Condition Stable Ambulatory Status Ambulatory Transportation Private Auto Accompanied by Medication Reconcilliation completed & Yes provided to patient/care provider Clinical Summary of Care Provided Yes Wound debrided: lateral heel Laterality: Left Wound Grade/Stage: hodges 3 Type of Debridement: Excisional debridement Anesthesia Used: 4% Lidocaine Solution Depth: in the subcutaneous layer Percentage of wound debrided: 100 Instrument Used: #15 blade Tissue Removed: includes fibrous, devitalized, biofilm, callus and slough tissue Severity: Fat Layer Exposed Amount of bleeding with debridement: Mild Bleeding Controlled with: Pressure Patient tolerated procedure: Patient tolerated procedure well Assessment/Plan Assessment/Plan (1) Non-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: CODE(S): L97.422 - Non-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 (2) Type 2 diabetes mellitus with foot ulcer: CODE(S): E11.621 - Type 2 diabetes mellitus with foot ulcer; L97.509 - Non-pressure chronic ulcer of other part of unspecified foot with unspecified severity QUALIFIERS: Diabetes mellitus long term acute care registered nurse insulin use: unspecified long term acute care registered nurse insulin use status Qualified Code(s): E11.621 - Type 2 diabetes mellitus with foot ulcer; L97.509 - Non-pressure chronic ulcer of other part of unspecified foot with unspecified severity (3) Peripheral vascular occlusive disease: CODE(S): I73.9 - Peripheral vascular disease, unspecified (4) Amputation at midfoot: CODE(S): S98.319A - Complete traumatic amputation of unspecified midfoot, initial encounter QUALIFIERS: Encounter type: subsequent encounter Laterality: left Qualified Code(s): S98.312D - Complete traumatic amputation of left midfoot, subsequent encounter (5) Chronic diastolic (congestive) heart failure: CODE(S): I50.32 - Chronic diastolic (congestive) heart failure PLAN: Patient seen and examined with present Lateral heel wound is improved. There was some callus buildup periwound ulceration with excessive tissue beyond normal bounds which is improved. Wound is now more of a slit in appearance Patient underwent vascular intervention on 08/15/[address] Jeff and again on 09/20/20. Patient has had previous surgical intervention with Dr. Jeff in the past as well. He had recent arterial studies on 06/13/20 showing monophasic waveforms and noncompressible bilateral PT and DP on the right with an left PAYAL of 0.78 on left. Discussed at length the importance of offloading with the patient in order to allow proper wound healing. Patient has a walker. Patient also has a surgical shoe with cut out to offload the heel. Patient relates more comfort noted when wearing his diabetic shoes. He has been wearing those instead. Discussed with patient the importance of proper nutrition and blood sugar control to also aid in wound healing. Patient and educated on proper dressing changes. Patient to use hydrogel DSD daily after washing area with soap and water. Patient approved for TheraSkin skin grafts. Discussed delaying this week as have inadaquate size graft available and with improvement in wound size to continue with hydrogel daily dressings. All questions answered. Patient is to follow-up in 1 week. This note was generated with [employer] dictation software. It may contain incorrect words, spelling, and punctuation that were not noted in checking the note before signing.
== END 2021-04-03 23:59 ==
LOC: WC 11:00
PROVIDERS: PCP Family Medicine; Referring Provider Podiatrist; Visit Provider Podiatrist Foot & Ankle Surgery
DX: E11.621 Type 2 diabetes mellitus with foot ulcer (principal); E11.51 Type 2 diabetes mellitus with diabetic peripheral angiopathy without gangrene; L97.422 Non-pressure chronic ulcer of left heel and midfoot with fat layer exposed; I50.32 Chronic diastolic (congestive) heart failure
CPT/HCPCS: 11042; 15275; Q4121

== ENCOUNTER 2021-04-17 10:45 | Outpatient (RCR) | payer MEDICARE, OTHER, SELFPAY ==
[2021-04-04 00:30] VITALS: BP 123/77; PULSE 89; RESP 20; TEMP 36.4; BMI 22.7
[2021-04-10 10:31] VITALS: BP 146/88; PULSE 88; TEMP 36.6; BMI 22.7
--- NOTE | 2021-04-10 11:32 | PCM.WC.PN ---
History of Present Illness Date of Service: 04/10/21 Chief Complaint: Left heel and lateral foot ulcerations osteomyelitis Peripheral vascular disease History of Wound: Patient is a 76-year-old male who presents to the wound care center after being seen in office by Dr[facility] for chronic left foot wound. 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 He also has had left posterior heel ulceration. Patient had an angioplasty intervention with Dr. Jeff on 08/15/20. Patient had another intervention 09/20/20. Patient has a history of peripheral vascular disease and has had surgical intervention in the past. Patient had MRI obtained 10/20/2020 demonstrating a large open wound is present in the lateral posterior and plantar aspect of the calcaneal process with associated mild cortical thinning and mild to moderate underlying edema due to active osteomyelitis. Patient followed up with Dr. Garnett per he was started on oral antibiotics to manage the osteomyelitis. Patient is currently taking doxycycline, cefadroxil and Flagyl 42 days. Patient has since finished this course of treatment. Patient has begun TheraSkin skin graft applications after approval was taken by insurance. He is also been using hydrogel given the small appearance of the wound. Progress of Wound: Improved Subjective Subjective Patient seen and examined resting comfortably. Patient denies any new pedal complaints. Patient denies any nausea, fever, chills, chest pain, shortness of breath, cough, streaking, purulence, vomiting. He relates no pain Objective Data Objective Data Vital Signs: Vital Signs Temp Pulse Resp BP 97.9 F 88 20 H 146/88 H 04/10/21 10:31 04/10/21 10:31 04/04/21 00:30 04/10/21 10:31 Weight: 79.379 kg Body Mass Index (BMI) 22.7 Physical Exam Narrative Const alert and no apparent distress General Appearance: cooperative and comfortable Lymph Lymphatic: no lymphedema noted Resp normal respiratory effort Effort and Inspection: able to speak in complete sentences Extremity no calf tenderness, negative rambo and gipson sign no lower extremity edema General Extremity: no tenderness to palpation of joints or extremities; Negative for clubbing or cyanosis or ecchymosis or erythema Vasc Peripheral Pulses:posterior tibial pulses present but diminished and dorsalis pedis pulses present but diminished, normal capillary refill, no acute ischemic skin changes noted, normal temperature Skin General Skin Exam: dry skin, decreased hair growth noted; Negative for ecchymosis, eschar, pallor, rashes Wound Narrative: Left lateral heel ulceration. No malodor, erythema, purulence, probing to bone, streaking, fluctuation, crepitus, or other signs of infection. Skin is atrophic and hairless. There remains some hyperkeratotic excess skin growth tissue noted periwound. There is buildup of surrounding callus. Ulcer is noted to be more of a slit at this time and has filled in depth significantly Left lateral forefoot ulceration remains healed Neuro Gait (Neuro): heel to toe Sensory Exam: extremities light-touch: decreased MSK Motor Exam: strength 5/5 throughout, ROM to foot and ankle joints within normal limits, Left TMA noted Psych Appearance: appropriate Attitude: calm Debridement Note Debridement Note Wound debrided: Lateral heel Laterality: Left Wound Grade/Stage: Barker 3 Type of Debridement: Excisional debridement Anesthesia Used: 4% Lidocaine Solution Depth: in the subcutaneous layer Percentage of wound debrided: 100 Instrument Used: #15 blade Tissue Removed: includes fibrous, devitalized, biofilm, callus and slough tissue Severity: Fat Layer Exposed Amount of bleeding with debridement: Mild Bleeding Controlled with: Pressure Patient tolerated procedure: Patient tolerated procedure well Post-Debridement Measurements and Additional Note: Post-Debridement Measurements/Treatment - Nurse 1 - General Ulcer Assessment Start: 04/10/21 10:28 Freq: Status: Active Protocol: [email or web address] Activity Type Activity Date Activity User E-Sign Co-Sign Detail Recorded Client Recorded Date Recorded By Document 04/10/21 10:31 HI [id number] 04/10/21 10:36 HI 04/10/21 10:31 - Today's Visit Information Type of service Follow-up Visit (Physician/PENSION ADVISER ) Arrival Mode Ambulatory Patient Identification Verified (Name & Yes ) Patient Requires Transmission-Based No Precautions Height and Weight Body Mass Index (BMI) 22.7 BMI Classification Normal Vital Signs Temperature (97.8 F-99.1 F) 97.9 F Temperature Source Temporal Pulse Rate (60-100) 88 Blood Pressure (90/60-120/80) 146/88 H Blood Pressure Mean (mm Hg) 107 Source Monitor History Since Last Visit- (Skip if this is Patient's initial visit) Have you changed medications since your No last visit? Any new allergies or adverse reactions No Had a fall/change in ADL's that may No increase risk of falls Signs or symptoms of abuse and/or No neglect since last visit Have you been in the hospital since your No last visit? Has dressing in place as prescribed Yes Has compression in place as prescribed N/A Has offloadiing in place as prescribed N/A Experienced any changes in pain level or No management Left Footwear Regular Shoe Right Footwear Regular Shoe WC - Nurse 1 - General Ulcer Measurement Start: 04/10/21 10:28 Freq: Status: Active Protocol: Activity Type Activity Date Activity User E-Sign Co-Sign Detail Recorded Client Recorded Date Recorded By Document 04/10/21 10:31 AK [id number] 04/10/21 10:36 AK 04/10/21 10:31 Wound Center Nurse 1 #1- L LATERAL HEEL -Current Size (cm) - Length 0.5 -Current Size (cm) - Width 0.1 -Current Size (cm) - Depth 0.1 -Total Square Cm 0.05 -Photo Taken No -Tunneling No -Undermining/Tunneling No -Circular Undermining No -Change in Wound Grade/Stage No -Exudate Amt None Present -Wound Margin Distinct, Outline Attached -Granulation Amt None Present (0 %) -Granulation Quality N/A -Slough/Fibrin No -Necrosis Amt Large (67-100%) -Necrotic Tissue Type Eschar -Structure Exposed N/A -Texture (Stacy-wound Skin Appearance) No Abnormality, Assessed -Moisture (Stacy-wound Skin Appearance) No Abnormality, Assessed -Color (Stacy-wound Skin Appearance) Assessed -Temperature (Stacy-wound Skin No Abnormality Appearance) (Pt Warm) -Tenderness on Palpation (Stacy-wound No Skin Appearance) -Ulcer Cleansing Rinsed/ Irrigated with Saline -Foul Odor after Cleansing No -Anesthetic Used 5% Lidocaine Gel WC - Nurse 2 - General Ulcer CM Notes Start: 04/10/21 10:28 Freq: Status: Active Protocol: Activity Type Activity Date Activity User E-Sign Co-Sign Detail Recorded Client Recorded Date Recorded By Document 04/10/21 10:45 MW [id number] 04/10/21 10:51 MW 04/10/21 10:45 Wound Center Nurse 2 -Time 10:45 -Correct Patient Yes -Correct Side, Site, Position Yes -Correct Procedure Yes -Procedure Performed Yes -Type of Procedure Debridement -Clinical Debridement Subcutaneous -Tissue Removed Subcutaneous -Post Debridement (cm) - Length 0.4 -Post Debridement (cm) - Width 0.1 -Post Debridement (cm) - Depth 0.1 -Total Square (Post) (cm) 0.04 -Area of Debridement (cm) - Length 0.4 -Area of Debridement (cm) - Width 0.1 -Total Square (Area) (cm) 0.04 -Tunneling No -Undermining/Tunneling No -Circular Undermining No -Wound/Ulcer Outcome Not Healed -Ulcer Cleansing Rinsed/ Irrigated with Saline -Foul Odor after Cleansing No -Bioengineered Tissue No -Bleeding Controlled with Pressure -Offloading No -Treatment Response Procedure Tolerated Well -Debridement - Subq, 1st 20sq cm Yes Pain Scale: 0-10 Numeric Is Patient Pain Free? Yes - Nurse 3 - General Ulcer D/C NN Start: 04/10/21 10:28 Freq: Status: Active Protocol: Activity Type Activity Date Activity User E-Sign Co-Sign Detail Recorded Client Recorded Date Recorded By Document 04/10/21 10:53 [facility] [id number] 04/10/21 10:54 [facility] 04/10/21 10:53 Wound Care Nurse 3 #1- L LATERAL HEEL -Ulcer Cleansing Rinsed/ Irrigated with Saline -Foul Odor after Cleansing No -Primary Dressing Applied C Hydrogel ($) -Other Dressing DRSG PER KR HEAD WAITER -Primary Dressing Covered/Secured with Dry Gauze & Roll Gauze, Secured with Tape Treatment Response Procedure Tolerated Well Pain Scale: 0-10 Numeric Is Patient Pain Free? Yes - Visit Discharge Discharge Condition Stable Ambulatory Status Ambulatory Transportation Private Auto Accompanied by Assessment/Plan Assessment/Plan (1) Non-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: CODE(S): L97.422 - Non-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 (2) Peripheral vascular occlusive disease: CODE(S): I73.9 - Peripheral vascular disease, unspecified (3) Type 2 diabetes mellitus with foot ulcer: CODE(S): E11.621 - Type 2 diabetes mellitus with foot ulcer; L97.509 - Non-pressure chronic ulcer of other part of unspecified foot with unspecified severity QUALIFIERS: Diabetes mellitus [facility] insulin use: unspecified [facility] insulin use status Qualified Code(s): E11.621 - Type 2 diabetes mellitus with foot ulcer; L97.509 - Non-pressure chronic ulcer of other part of unspecified foot with unspecified severity (4) Amputation at midfoot: CODE(S): S98.319A - Complete traumatic amputation of unspecified midfoot, initial encounter QUALIFIERS: Encounter type: subsequent encounter Laterality: left Qualified Code(s): S98.312D - Complete traumatic amputation of left midfoot, subsequent encounter PLAN: Patient seen and examined with present Lateral heel wound is improved. There was less callus buildup periwound ulceration with excessive tissue beyond normal bounds which is improved. Wound is now more of a slit in appearance with noted improvement in depth After verbal consent was obtained wound was sharply debrided Patient underwent vascular intervention on 08/15/[address] Jeff and again on 09/20/20. Patient has had previous surgical intervention with Dr. Jeff in the past as well. He had recent arterial studies on 06/13/20 showing monophasic waveforms and noncompressible bilateral PT and DP on the right with an left PAYAL of 0.78 on left. Discussed at length the importance of offloading with the patient in order to allow proper wound healing. Patient has a walker. Patient also has a surgical shoe with cut out to offload the heel. Patient relates more comfort noted when wearing his diabetic shoes. He has been wearing those instead. Discussed with patient the importance of proper nutrition and blood sugar control to also aid in wound healing. Patient and educated on proper dressing changes. Patient to use hydrogel DSD daily after washing area with soap and water. Patient approved for TheraSkin skin grafts. Discussed wound is so small that this is not necessary at this time. If wound is to worsen may return to graft but is not expected All questions answered. Patient is to follow-up in 1 week. This note was generated with [employer] software. It may contain incorrect words, spelling, and punctuation that were not noted in checking the note before signing.
[2021-04-17 10:41] VITALS: BP 135/78; PULSE 86; RESP 16; TEMP 36.6; BMI 22.7
--- NOTE | 2021-04-17 12:42 | PN.PCM_ITS ---
History of Present Illness Date of Service: 04/17/21 Chief Complaint: Left heel and lateral foot ulcerations osteomyelitis Peripheral vascular disease History of Wound: Patient is a 76-year-old male who presents to the wound care center after being seen in office by Dr. Pelaez [facility] for chronic left foot wound. 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 He also has had left posterior heel ulceration. Patient had an angioplasty intervention with Dr. Jeff on 08/15/20. Patient had another intervention 09/20/20. Patient has a history of peripheral vascular disease and has had surgical intervention in the past. Patient had MRI obtained 10/20/2020 demonstrating a large open wound is present in the lateral posterior and plantar aspect of the calcaneal process with associated mild cortical thinning and mild to moderate underlying edema due to active osteomyelitis. Patient followed up with Dr. Garnett per he was started on oral antibiotics to manage the osteomyelitis. Patient is currently taking doxycycline, cefadroxil and Flagyl 42 days. Patient has since finished this course of treatment. Patient has begun TheraSkin skin graft applications after approval was taken by insurance. He is also been using hydrogel given the small appearance of the wound. Progress of Wound: Improved Subjective Subjective Patient seen and examined resting comfortably. Patient denies any new pedal complaints. Patient denies any nausea, fever, chills, chest pain, shortness of breath, cough, streaking, purulence, vomiting. Patient relates no pain and is able to do all activities desired Objective Data Objective Data Vital Signs: Vital Signs Temp Pulse Resp BP 97.9 F 86 16 135/78 H 04/17/21 10:41 04/17/21 10:41 04/17/21 10:41 04/17/21 10:41 Oxygen Delivery Method Room Air Weight: 79.379 kg Body Mass Index (BMI) 22.7 Physical Exam Narrative Const alert and no apparent distress General Appearance: cooperative and comfortable Lymph Lymphatic: no lymphedema noted Resp normal respiratory effort Effort and Inspection: able to speak in complete sentences Extremity no calf tenderness, negative rambo and gipson sign no lower extremity edema General Extremity: no tenderness to palpation of joints or extremities; Negative for clubbing or cyanosis or ecchymosis or erythema Vasc Peripheral Pulses:posterior tibial pulses present but diminished and dorsalis pedis pulses present but diminished, normal capillary refill, no acute ischemic skin changes noted, normal temperature Skin General Skin Exam: dry skin, decreased hair growth noted; Negative for ecchymosis, eschar, pallor, rashes Wound Narrative: Left lateral heel ulceration has healed.. No malodor, erythema, purulence, probing to bone, streaking, fluctuation, crepitus, or other signs of infection. Skin is atrophic and hairless. There remains some hyperkeratotic excess callus growth tissue noted at site of wound to lateral heel. Left lateral forefoot ulceration remains healed Neuro Gait (Neuro): heel to toe Sensory Exam: extremities light-touch: decreased MSK Motor Exam: strength 5/5 throughout, ROM to foot and ankle joints within normal limits, Left TMA noted Psych Appearance: appropriate Attitude: calm Assessment/Plan Assessment/Plan (1) Non-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: CODE(S): L97.422 - Non-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 (2) Peripheral vascular occlusive disease: CODE(S): I73.9 - Peripheral vascular disease, unspecified (3) Type 2 diabetes mellitus with foot ulcer: CODE(S): E11.621 - Type 2 diabetes mellitus with foot ulcer; L97.509 - Non-pressure chronic ulcer of other part of unspecified foot with unspecified severity QUALIFIERS: Diabetes mellitus [facility] insulin use: unspecified [facility] insulin use status Qualified Code(s): E11.621 - Type 2 diabetes mellitus with foot ulcer; L97.509 - Non-pressure chronic ulcer of other part of unspecified foot with unspecified severity (4) Amputation at midfoot: CODE(S): S98.319A - Complete traumatic amputation of unspecified midfoot, initial encounter QUALIFIERS: Encounter type: subsequent encounter Laterality: left Qualified Code(s): S98.312D - Complete traumatic amputation of left midfoot, subsequent encounter PLAN: Patient seen and examined with present Patient seen and examined. Ulceration site is noted to have healed. Reviewed with the patient concerning signs and symptoms to watch out for in the future. Reviewed proper foot care and shoe gear with the patient. Educated patient on proper foot care, and the importance of daily foot checks. All questions were answered. Patient to follow up immediately with any problems, questions and/or concerns. Reviewed that it is possible that he is getting continue to have increased callus on the lateral side of his heel. Discussed proper callus care including application of lotion, removing excess skin carefully with a pumice stone on a weekly basis, making sure area is padded and proper shoe gear with correct fit are being used. Patient is noted to have routine visit at the office upcoming. Will reassess at that time and do with any potential callus buildup at that time. All questions answered. To contact office if any questions or concerns. This note was generated with [employer] dictation software. It may contain incorrect words, spelling, and punctuation that were not noted in checking the note before signing.
== END 2021-04-17 11:19 | disposition home or self-care (01) ==
LOC: WC 10:45
PROVIDERS: PCP Family Medicine; Referring Provider Podiatrist; Visit Provider Podiatrist Foot & Ankle Surgery
DX: E11.621 Type 2 diabetes mellitus with foot ulcer (principal); E11.51 Type 2 diabetes mellitus with diabetic peripheral angiopathy without gangrene; T87.89 Other complications of amputation stump; Y83.8 Other surgical procedures as the cause of abnormal reaction of the patient, or of later complication, without mention of misadventure at the time of the procedure; L97.422 Non-pressure chronic ulcer of left heel and midfoot with fat layer exposed
CPT/HCPCS: 11042; 99213; G0463

== ENCOUNTER → 2021-04-20 09:40 | Outpatient (CLI) | payer MEDICARE, OTHER, SELFPAY ==
[2021-04-20 12:17] LABS: Absolute Lymphocyte Count 1.87 X10^3/uL (0.83-4.51); Absolute Neutrophil Count 2.4 X10^3/uL (2.0-7.7); Basophil# 0.04 X10^3/uL; Basophil% 0.8 % (0-1); Eosinophil# 0.17 X10^3/uL; Eosinophils% 3.3 % (0-5); Hemoglobin 13.5 g/dL (13.0-16.5); Lymphocyte # 1.87 X10^3/ul (0.83-4.51); Lymphocyte % 36.7 % (19-41); Mean Corp Hgb Conc 32.1 g/dL (32-36); Mean Corpuscular Hgb 29.7 pg (27.0-32.0); Mean Corpuscular Volume 92.5 fL (80-94); Mean Platelet Vol. 9.8 fl (6.2-12.0); Monocyte# 0.59 X10^3/uL; Monocyte% 11.6 % (0-10); NRBC Flagged by Analyzer 0 % (0-5); Neutrophil # 2.42 X10^3/uL (2.7-7.7); Neutrophil % 47.4 % (47-70); Platelet Count 223 K/mm3 (150-450); RBC Distribution Width CV 13.3 % (11.6-14.6); RBC Distribution Width SD 45.1 fl (35.1-43.9); Red Blood Count 4.54 M/mm3 (4.6-6.2); White Blood Count 5.1 K/mm3 (4.4-11.0)
[2021-04-20 12:47] LABS: Hemoglobin A1c 6.1 % (3.8-5.6)
[2021-04-20 12:51] LABS: ALB/GLOB Ratio 1.1 RATIO (0.9-2.4); AST(SGOT) 11 U/L (15-37); Alanine Aminotransfer ALT/SGPT 29 U/L (16-61); Albumin, Serum 3.2 g/dL (3.2-5.0); Alkaline Phosphatase 71 U/L (45-117); Anion Gap 5 (5-15); BUN 19 mg/dL (7-18); BUN/Creat Ratio 19.7 RATIO (10-20); Calcium,Total 8.7 mg/dL (8.5-10.1); Chloride 107 mmol/L (98-107); Cholesterol 106 mg/dL (200); Creatinine, Serum 0.96 mg/dL (0.70-1.30); EST Glomerular Filtration Rate 80 mL/min (>60); Est Glom Filt Rate - Afr Amer 97 mL/min (>60); Ferritin 21 ng/mL (26-388); Glucose 135 mg/dL (74-106); High Density Lipoprotein 61 mg/dL; Iron 50 ug/dL (65-175); Iron Binding Capacity,Total 262 ug/dL (250-450); Magnesium 1.9 mg/dL (1.6-2.6); Protein, Total 6.2 g/dL (6.4-8.2); Sodium Level 139 mmol/L (136-145); Thyroid Stim Hormone (TSH) 1.68 uIU/mL (0.358-3.74); Triglycerides 24 mg/dL; Very Low Density Lipoprotein 5 mg/dL (5-40)
== END ==
PROVIDERS: PCP Family Medicine; Referring Provider Family Medicine; Visit Provider Family Medicine
DX: I48.0 Paroxysmal atrial fibrillation (principal); E61.1 Iron deficiency; E11.9 Type 2 diabetes mellitus without complications
CPT/HCPCS: 36415; 80053; 80061; 82728; 83036; 83540; 83550; 83735; 84443; 85025

== ENCOUNTER → 2021-04-23 14:31 | Outpatient (CLI) | payer MEDICARE, OTHER, SELFPAY ==
[2021-04-23 18:50] LABS: Microalbumin,Random Urine 85.1 mg/L (NO RANGE EST.); Microalbumin:Creatinine Ratio 73.4 mg/g CRE (<30 mg/g CRE)
== END ==
PROVIDERS: PCP Family Medicine; Visit Provider Family Medicine
DX: E11.9 Type 2 diabetes mellitus without complications (principal)
CPT/HCPCS: 82043; 82570

== ENCOUNTER 2021-05-23 16:56 | Inpatient (IN) | payer MEDICARE, OTHER, SELFPAY ==
[2021-05-23] VITALS (9 sets, daily range): BP systolic 88–151; BP diastolic 50–129; PULSE 79–126; RESP 10–22; TEMP 36.4; O2SAT 97–100; BMI 23.0
--- NOTE | 2021-05-23 17:36 | CT_ITS ---
STUDY: CT BRAIN WITHOUT CONTRAST REASON FOR EXAM: Male, 76 years old. Head trauma on anticoagulant RADIATION DOSAGE (If Supplied By Facility): CTDIvol = ( 44.99 ) mGy, DLP = ( 829.85 ) mGycm TECHNIQUE: Transaxial CT imaging of the brain was performed without administration of intravenous contrast material. Individualized dose optimization techniques were used for this CT. COMPARISON: CT brain 10/10/2020 FINDINGS: Vascular calcifications within the superficial temporal artery bilaterally. Normal calvarium. There is moderate cerebral atrophy with widening of the extra-axial spaces and ventricular dilatation. There are areas of decreased attenuation within the white matter tracts of the supratentorial brain, consistent with microvascular disease changes. Normal basal ganglia and thalami. Normal brainstem. Normal cerebellum. Intracranial atherosclerosis. Intravenous gas noted within the infratemporal fossa on the right, the cavernous sinus, and the superior sagittal sinus. There is no intracranial hemorrhage. There are no findings of an acute ischemic infarction. Air-fluid level right maxillary sinus. CT/Brain/Head without Contrast IMPRESSION: Right maxillary sinusitis. Intravascular gas emboli as above may represent peripheral venous gas and a patent foramen ovale. Clinical correlation required. Consider temporal arteritis. Electronically Signed: Wiliam Bone MD at 18:43 EDT , Service support ,
--- NOTE | 2021-05-23 17:37 | EKG12_ITS ---
Test Reason : SYNCOPE Blood Pressure : / mmHG Vent. Rate : 085 BPM Atrial Rate : 104 BPM P-R Int : 000 ms QRS Dur : 110 ms QT Int : 368 ms P-R-T Axes : 000 -47 -27 degrees QTc Int : 437 ms Atrial fibrillation Left axis deviation Inferior infarct , age undetermined Anterior infarct , age undetermined Abnormal ECG Confirmed by BARB NG, MALIKA ([id number]), editorial director SANDY GOMES ([id number]) on 05/24/2021 1:55:27 P M Referred By: LEIGHANN Confirmed By:BAUTISTA DAY MD
--- NOTE | 2021-05-23 18:01 | CT_ITS ---
STUDY: CT FACIAL BONES WITHOUT CONTRAST REASON FOR EXAM: Male, 76 years old. FALL RADIATION DOSAGE (If Supplied By Facility): CTDIvol = ( 29.38 ) mGy, DLP = ( 569.49 ) mGycm TECHNIQUE: The patient was scanned in a multi detector CT scanner. Sagittal and coronal images were reconstructed. Individualized dose optimization techniques were used for this CT. COMPARISON: None. FINDINGS: Normal soft tissue structures. Normal orbital flannery and orbital contents. Normal nasal bones and anterior nasal spine. Deviated bony septum may represent a remote fracture.. Normal facial bones. There is no demonstrated fracture. Air-fluid level right maxillary sinus and sphenoid sinus. CT/Sinus/Facial Bone IMPRESSION: Sinusitis versus hemorrhage. Probable remote fracture bony septum. Electronically Signed: Wiliam Bone MD at 18:47 EDT , Service support ,
--- NOTE | 2021-05-23 18:42 | EDS_ITS ---
HPI History of Present Illness Chief Complaint: Syncope Detail of Chief Complaint: Patient leaned over and when he carlene passed out Informant: patient and spouse/S.O. 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 He has had 6 episodes in the past. He states normally he knows he is about to pass out. He states he leaned over upon arising he passed out. states she was out for approximately 30 to 60 seconds. He is on anticoagulant as well as antiplatelet medication. He denies headache. Denies visual disturbance. Nu[place] ringing his ears decreased hearing. Has trouble with speech. Denies dental trauma. Denies malalignment of his teeth. Denies neck pain. Denies paresthesia, anesthesia or motor weakness present at time of the impact. He denies cardiac respiratory symptoms. Denies abdominal pain. Denies black or maroon-colored stool. He denies hematuria. Denies bruising easily. He denies trouble with his balance. He does have diabetic neuropathy. He was unaware that he had a contusion left parietal area. Prior similar symptoms: Yes Recent Illness/Hospitalization: No [facility] Medical History Acid reflux Anemia Atherosclerosis of coronary artery of [place] heart without angina pectoris Atrial fibrillation BPH (benign prostatic hyperplasia) Chronic diastolic (congestive) heart failure Chronic kidney disease Erectile dysfunction Essential (primary) hypertension History of non-ST elevation myocardial infarction (NSTEMI) (08/26/16) Hyperlipidemia Inguinal hernia of right side without obstruction or gangrene Iron deficiency anemia Longstanding persistent atrial fibrillation Multinodular goiter Nonrheumatic aortic (valve) stenosis Paroxysmal atrial fibrillation Partial seizure disorder Peripheral vascular occlusive disease Pre-syncope Syncope Syncope Type 2 diabetes mellitus Urinary retention Urinary retention due to benign prostatic hyperplasia Ventral incisional hernia without obstruction or gangrene Home Medications atorvastatin 80 mg tablet 80 mg PO QHS 07/21/18 [History Last Taken 05/23/19] cholecalciferol (vitamin D3) 50 mcg (2,000 unit) capsule 2,000 unit PO DAILY 07/21/18 [History Last Taken 05/23/19] lamotrigine 200 mg tablet 200 mg PO BID 07/21/18 [History Last Taken 05/24/19 05:30] lisinopril 5 mg tablet 5 mg PO QHS 07/21/18 [History Last Taken 05/23/19] metformin 500 mg tablet,extended release 24 hr 1,000 mg PO BID tab 07/21/18 [History Last Taken 08/07/20] metoprolol tartrate 75 mg PO BID 05/25/19 [History Last Taken 05/24/19] dapagliflozin 5 mg tablet 5 mg PO DAILY tab 02/29/20 [History Last Taken Unknown] acarbose 50 mg PO TIDCM 08/07/20 [History Last Taken Unknown] aspirin 81 mg PO DAILY 08/07/20 [History Last Taken Unknown] docusate sodium 100 mg PO BID 08/07/20 [History Last Taken Unknown] finasteride 5 mg PO DAILY 08/07/20 [History Last Taken Unknown] insulin degludec 0 unit SQ UD 08/07/20 [History Last Taken Unknown] magnesium oxide 400 mg PO DAILY 08/07/20 [History Last Taken Unknown] nitroglycerin 0.4 mg SUBLINGUAL Q5M PRN 08/07/20 [History Last Taken Unknown] apixaban 2.5 mg tablet 2.5 mg PO BID #180 tab 09/06/20 [Rx Last Taken Unknown] Allergy/AdvReac Type Severity Reaction Status Date / Time carbamazepine [From Tegretol] Allergy Rash Verified 05/23/21 16:58 Family History Mother Cancer Heart disease Father Hypertension Diabetes Son Heart disease Surgical History History of angioplasty of peripheral vessel (06/28/14) History of cardioversion (08/21/16) History of colonoscopy (01/2019) History of coronary artery stent placement (08/26/16) History of inguinal hernia repair 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 Marcelino Fuller MD) household members: spouse Smoking Status: Former smoker quit date: 08/04/69 pack-years: 10 alcohol intake: current alcohol intake frequency: a few times a month substance use type: does not use ROS ROS ED Constitutional Constitutional ED: Denies chills, fever(s), subjective or sweats Eyes Eyes: Denies blurry vision, change in vision or diplopia ENT ENT ED: Reports other Details: Epistaxis due to blunt facial trauma ; Denies ear pain, rhinorrhea or sore throat Cardiovascular Cardiovascular: Denies chest pain, orthopnea, palpitations or racing heartbeat Respiratory/Chest Respiratory/Chest: Denies cough, dyspnea, dyspnea on exertion or orthopnea Gastrointestinal Gastrointestinal: Denies abdominal pain, diarrhea, melena, nausea or vomiting Genitourinary Genitourinary ED: Denies dysuria, hematuria or urinary frequency Musculoskeletal Musculoskeletal: Denies arthralgias, back pain, myalgias or neck pain Integumentary Reports Abrasions; Denies abscess or rash Neurologic Neurologic: Denies headache(s), paresthesias or weakness Endocrine Endocrinology: Denies polydipsia, polyphagia or polyuria Allergic/Immunologic Allergic/Immunologic ED: Denies urticaria EXAM Physical Exam Const Vital Signs: 05/23/21 17:00 05/23/21 17:10 05/23/21 17:14 Temperature 97.5 F L Temperature Source Temporal Pulse Rate 81 79 Pulse Rate [2] Pulse Rate [3] Pulse Rate [4] Pulse Rate [5] Pulse Rate [6] Pulse Rate [7] Pulse Rate [8] Respiratory Rate 20 H 17 Respiratory Rate [2] Respiratory Rate [3] Respiratory Rate [4] Respiratory Rate [5] Respiratory Rate [6] Respiratory Rate [7] Respiratory Rate [8] Respiratory Effort Normal Non-Labored Respiratory Pattern Normal Blood Pressure 150/129 H 151/89 H Blood Pressure [4] Blood Pressure [5] Blood Pressure [6] Blood Pressure [7] Blood Pressure Mean 136 109 Blood Pressure Source Pulse Ox 99 99 Oxygen Delivery Method Room Air Room Air Oxygen Delivery Method [2] Oxygen Delivery Method [4] Oxygen Delivery Method [5] Oxygen Delivery Method [6] Oxygen Delivery Method [7] Oxygen Delivery Method [8] Oxygen Flow Rate (L/min) Oxygen Flow Rate (L/min) [2] 05/23/21 19:00 05/23/21 21:00 05/23/21 21:30 Temperature Temperature Source Pulse Rate 99 102 H 103 H Pulse Rate [2] Pulse Rate [3] Pulse Rate [4] Pulse Rate [5] Pulse Rate [6] Pulse Rate [7] Pulse Rate [8] Respiratory Rate 10 L 15 15 Respiratory Rate [2] Respiratory Rate [3] Respiratory Rate [4] Respiratory Rate [5] Respiratory Rate [6] Respiratory Rate [7] Respiratory Rate [8] Respiratory Effort Respiratory Pattern Blood Pressure 93/55 L 92/50 L 88/54 L Blood Pressure [4] Blood Pressure [5] Blood Pressure [6] Blood Pressure [7] Blood Pressure Mean 67 64 65 Blood Pressure Source Pulse Ox 97 98 100 Oxygen Delivery Method Room Air Room Air Room Air Oxygen Delivery Method [2] Oxygen Delivery Method [4] Oxygen Delivery Method [5] Oxygen Delivery Method [6] Oxygen Delivery Method [7] Oxygen Delivery Method [8] Oxygen Flow Rate (L/min) Oxygen Flow Rate (L/min) [2] 05/23/21 22:00 05/23/21 22:30 05/23/21 23:00 Temperature Temperature Source Pulse Rate 105 H 104 H 121 H Pulse Rate [2] Pulse Rate [3] Pulse Rate [4] Pulse Rate [5] Pulse Rate [6] Pulse Rate [7] Pulse Rate [8] Respiratory Rate 15 22 H 22 H Respiratory Rate [2] Respiratory Rate [3] Respiratory Rate [4] Respiratory Rate [5] Respiratory Rate [6] Respiratory Rate [7] Respiratory Rate [8] Respiratory Effort Respiratory Pattern Blood Pressure 96/58 L 93/69 109/60 Blood Pressure [4] Blood Pressure [5] Blood Pressure [6] Blood Pressure [7] Blood Pressure Mean 70 77 76 Blood Pressure Source Pulse Ox 98 99 100 Oxygen Delivery Method Room Air Room Air Room Air Oxygen Delivery Method [2] Oxygen Delivery Method [4] Oxygen Delivery Method [5] Oxygen Delivery Method [6] Oxygen Delivery Method [7] Oxygen Delivery Method [8] Oxygen Flow Rate (L/min) Oxygen Flow Rate (L/min) [2] 05/23/21 23:30 05/24/21 00:00 05/24/21 00:49 Temperature 98.1 F Temperature Source Temporal Pulse Rate 126 H 123 H 123 H Pulse Rate [2] Pulse Rate [3] Pulse Rate [4] Pulse Rate [5] Pulse Rate [6] Pulse Rate [7] Pulse Rate [8] Respiratory Rate 20 H 18 21 H Respiratory Rate [2] Respiratory Rate [3] Respiratory Rate [4] Respiratory Rate [5] Respiratory Rate [6] Respiratory Rate [7] Respiratory Rate [8] Respiratory Effort Respiratory Pattern Blood Pressure 92/62 111/69 101/58 L Blood Pressure [4] Blood Pressure [5] Blood Pressure [6] Blood Pressure [7] Blood Pressure Mean 72 83 72 Blood Pressure Source Monitor Pulse Ox 100 100 96 Oxygen Delivery Method Room Air Room Air Room Air Oxygen Delivery Method [2] Oxygen Delivery Method [4] Oxygen Delivery Method [5] Oxygen Delivery Method [6] Oxygen Delivery Method [7] Oxygen Delivery Method [8] Oxygen Flow Rate (L/min) Oxygen Flow Rate (L/min) [2] 05/24/21 00:52 05/24/21 01:02 05/24/21 01:05 Temperature 98 F Temperature Source Temporal Pulse Rate 128 H 129 H Pulse Rate [2] 120 H Pulse Rate [3] 145 H Pulse Rate [4] 139 H Pulse Rate [5] 158 H Pulse Rate [6] 141 H Pulse Rate [7] 142 H Pulse Rate [8] 120 H Respiratory Rate 22 H 17 Respiratory Rate [2] 18 Respiratory Rate [3] 28 H Respiratory Rate [4] 26 H Respiratory Rate [5] 25 H Respiratory Rate [6] 32 H Respiratory Rate [7] 33 H Respiratory Rate [8] 34 H Respiratory Effort Respiratory Pattern Blood Pressure 111/69 109/69 Blood Pressure [4] 98/65 Blood Pressure [5] 127/101 H Blood Pressure [6] 94/55 L Blood Pressure [7] 99/66 Blood Pressure Mean 83 Blood Pressure Source Monitor Pulse Ox 96 99 Oxygen Delivery Method Room Air Room Air Oxygen Delivery Method [2] Nasal Cannula Oxygen Delivery Method [4] Nasal Cannula Oxygen Delivery Method [5] Nasal Cannula Oxygen Delivery Method [6] Nasal Cannula Oxygen Delivery Method [7] Nasal Cannula Oxygen Delivery Method [8] Nasal Cannula Oxygen Flow Rate (L/min) Oxygen Flow Rate (L/min) [2] 100 05/24/21 01:07 05/24/21 01:20 05/24/21 01:25 Temperature 98.5 F Temperature Source Temporal Pulse Rate 123 H 126 H 122 H Pulse Rate [2] Pulse Rate [3] Pulse Rate [4] Pulse Rate [5] Pulse Rate [6] Pulse Rate [7] Pulse Rate [8] Respiratory Rate 18 18 12 Respiratory Rate [2] Respiratory Rate [3] Respiratory Rate [4] Respiratory Rate [5] Respiratory Rate [6] Respiratory Rate [7] Respiratory Rate [8] Respiratory Effort Respiratory Pattern Blood Pressure 110/68 89/57 L 70/41 L Blood Pressure [4] Blood Pressure [5] Blood Pressure [6] Blood Pressure [7] Blood Pressure Mean 82 Blood Pressure Source Monitor Pulse Ox 99 96 97 Oxygen Delivery Method Room Air Nasal Cannula Nasal Cannula Oxygen Delivery Method [2] Oxygen Delivery Method [4] Oxygen Delivery Method [5] Oxygen Delivery Method [6] Oxygen Delivery Method [7] Oxygen Delivery Method [8] Oxygen Flow Rate (L/min) 2 Oxygen Flow Rate (L/min) [2] 05/24/21 01:30 05/24/21 01:35 Temperature Temperature Source Pulse Rate 118 H 105 H Pulse Rate [2] Pulse Rate [3] Pulse Rate [4] Pulse Rate [5] Pulse Rate [6] Pulse Rate [7] Pulse Rate [8] Respiratory Rate 19 H 18 Respiratory Rate [2] Respiratory Rate [3] Respiratory Rate [4] Respiratory Rate [5] Respiratory Rate [6] Respiratory Rate [7] Respiratory Rate [8] Respiratory Effort Respiratory Pattern Blood Pressure 79/43 L 84/62 L Blood Pressure [4] Blood Pressure [5] Blood Pressure [6] Blood Pressure [7] Blood Pressure Mean 69 Blood Pressure Source Pulse Ox 96 97 Oxygen Delivery Method Nasal Cannula Nasal Cannula Oxygen Delivery Method [2] Oxygen Delivery Method [4] Oxygen Delivery Method [5] Oxygen Delivery Method [6] Oxygen Delivery Method [7] Oxygen Delivery Method [8] Oxygen Flow Rate (L/min) 2 Oxygen Flow Rate (L/min) [2] Positive well nourished and well developed General Appearance ED: well developed and NAD HEENT Reports TM's clear and moist mucous membranes HEENT Narrative: Epistaxis noted. Blood both sides. Nose pensions in place. There is no hemotympanum. There is no evidence of raccoon sign or marshall sign. There is no subconjunctival hemorrhage noted. There is no crepitus with palpation of the face. trauma and tenderness Tympanic Membrane ED: Yes TM's clear Eyes PERRL and EOMs intact bilaterally General Eye ED: Negative for pale conjunctiva or scleral icterus Neck no lymphadenopathy, supple and no JVD Chest Wall palpation of chest normal Resp normal respiratory effort and clear to auscultation bilaterally Cardio regular rate, S1 normal heart sound, S2 normal heart sound and no murmurs GI normal to inspection, nondistended, normoactive bowel sounds and non-tender Palpation: soft Back/Spine no CVA tenderness Cervical Spine: Negative for cervical spine tenderness Thoracic Spine / Upper Back: Negative for thoracic spinal tenderness or paraspinal muscle tenderness Extremity normal to inspection Extremity Narrative: There is no pain the patient of the clavicle, AC joint or proximal femurs. There is an abrasion noted anterior right left shoulder. Axillary, median, radial and ulnar function intact. General Extremety ED: Negative for edema or tenderness General Extremity: Negative for edema Neuro oriented x3, CN's II-XII intact bilaterally and no sensory deficits noted Neuro Narrative: GCS is 15. Sensorium / Orientation: alert Motor Exam: strength 5/5 throughout Psych mental status grossly normal Skin no rashes or lesions noted and No no wounds Trauma: abrasion MDM MDM MDM Narrative Medical decision making narrative: With evidence of head trauma on anticoagulant antiplatelet will obtain CT of the head per the [place] CT head rule and Black rule. CT of the head reveals pneumocephalus facial films were ordered. Suspect patient has fracture of his ethmoid. I was made aware patient was hypotensive. Fluid bolus was ordered. Once I was made aware that there is no evidence of basal skull fracture and anterior posterior Rhino rocket was placed on the right side. Patient began to vomit blood. Of note, he had significant amount of blood right naris and posteriorly suspect the hematemesis is due to the epistaxis. The blood was red maroonish in color and recovered to a bedpan of blood. OG was ordered to irrigate until clear. Patient was typed and crossed matched for 1 unit of blood since he is hypotensive. Radiologist recommended CTA of the chest and neck to determine source of air and if it is intravascular versus subcutaneous versus pneumocephalus. My review of the orbits sella posterior view reveals blood in the right maxillary sinus, ethmoids and sphenoid sinus. No obvious fracture is noted. Patient had the OG placed, and the nurse states she irrigated with 1 L and did not clear. Informed her that we would reirrigate after he has a CTA of the neck and CT of the chest. I was informed he had a large emesis of blood for the second time. Dr. Flor who is on for GI was paged. Since patient is on anticoagulant for A. fib and is not presently in A. fib; therefore, the plan is to reverse with Kcentra. Patient was transfused 1 unit of blood since he is hypotensive and has had a 2 g drop in his hemoglobin since January. Suspect his hemoglobin is much lower. He also received IV fluids. Dr. Flor will see and scope patient in the ER. I informed him that I would intubate him if necessary and sedate to facilitate EGD. Patient informed has had no complication with general anesthesia in the past. He denies allergy to egg products or soy products. He was informed of risk benefits of procedural sedation, potential intubation and EGD risk benefits were explained by Dr. Flor. Patient was reassessed at 0045. No blood was noted anterior portion of the nose or posteriorly. There is blood noted on the packing. There is no evidence of fresh blood. Patient is hypotensive. He has received 2 L of normal saline. A unit of blood is now being hung by the nurse. Rhythm strip reveals atrial fibrillation with a rapid ventricular response with a rate of 124. Since patient had significant mount of bleeding and presume there may be a GI bleed on top of the epistaxis will not administer any medicines for rate control of the A. fib. Rather will treat with fluids and transfuse a unit of blood. Timeout was called. Start time was 0105. End time 0118. Patient was in A. fib with RVR with a rate of 128 at the onset. During the middle the procedure his heart rate increased to 165. He remained in atrial fibrillation. He did not become hypoxic during the procedure. At the end the procedure heart rate is 132. Blood pressure has improved to 127. The CTA of the neck and chest has not been read by radiologist. Calls from place to Dr. Antonio Malloy crisis counselor because of the air that was noted on the initial CAT scan with no obvious fracture. Will plan on calling hospitalist and Dr. Meyer if Dr. Malloy agrees to see/accept patient for ICU admission at [facility]. After discussion with Dr. Antonio Malloy he agrees that nothing else needs to be done at this time other than placing patient on oxygen. Dr. Catherine Macias the hospitalist was paged for admission and Dr. Meyer has been paged because of the epistaxis and knowing that he does not have a GI bleed that his hypotension is due to the epistaxis. Nurse put the unit of blood on pressure bag since patient became hypotensive again. Will order a hemogram to assess his H&H and will administer additional liter of fluid. Dr. Macias requested amiodarone for rate control. If patient remains hypotensive and she asked if I would place a central line. Blood pressure at 0150 is 114 systolic Lab Data Attestation: I reviewed the patient's lab results. Labs: Laboratory Results - last 24 hr 05/23/21 05/23/21 05/23/21 22:54 22:54 22:54 Hgb 12.5 L Hct 38.9 L Sodium 140 Potassium 4.5 Chloride 108 H Carbon Dioxide 22.0 Anion Gap 10 BUN 39 H Creatinine 1.12 Estim Creat Clear Calc 57.59 Est GFR (MDRD) Af Amer 82 Est GFR (MDRD) Non-Af 67 BUN/Creatinine Ratio 34.8 H Glucose 169 H Lactic Acid Calcium 7.6 L Blood Type Antibody Screen NEGATIVE Crossmatch See Detail 05/23/21 05/23/21 05/24/21 22:54 22:54 01:43 Hgb 11.7 L Hct Sodium Potassium Chloride Carbon Dioxide Anion Gap BUN Creatinine Estim Creat Clear Calc Est GFR (MDRD) Af Amer Est GFR (MDRD) Non-Af BUN/Creatinine Ratio Glucose Lactic Acid 3.3 H* Calcium Blood Type A POSITIVE Antibody Screen Crossmatch Radiography Diagnostic Testing: Clinical Impression(s) from Imaging Studies Brain CT 05/23/21 17:36 IMPRESSION: Right maxillary sinusitis. Intravascular gas emboli as above may represent peripheral venous gas and a patent foramen ovale. Clinical correlation required. Consider temporal arteritis. Electronically Signed: Wiliam Bone MD at 18:43 EDT , Service support , Facial/Sinus 05/23/21 18:01 IMPRESSION: Sinusitis versus hemorrhage. Probable remote fracture bony septum. Electronically Signed: Wiliam Bone MD at 18:47 EDT , Service support , CT Orbit Sella Inner 05/23/21 19:51 IMPRESSION: No evidence of basilar skull fracture. Interval increase in subcutaneous emphysema and/or intravascular gas. This may represent extensive increased intravenous emboli but CT of the neck and chest recommended for further characterization regarding the source. Electronically Signed: Wiliam Bone MD at 22:18 EDT , Service support , Chest CTA 05/23/21 22:27 IMPRESSION: 1. Small amount of air in the right subclavian vein and right internal jugular vein which is commonly injection related and typically of no clinical significance. In this setting intracranial cavernous sinus air and superficial soft tissue venous air is also commonly seen. CT does not exclude patent foramen ovale though no overt septal defect is appreciated and no there are no secondary to findings to suggest right to left cardiac shunt. 2. No pulmonary embolism. 3. Small subtle lower lobe small centrilobular groundglass nodular opacities which could represent atelectasis, infection, or alveolar edema in the appropriate setting. 4. Mild bilateral peribronchial thickening as can be seen with bronchitis/bronchiolitis. 5. Small to moderate hiatal hernia. 6. Right thyroid 3.7 cm heterogeneous nodule with internal calcifications, increased in heterogeneity though unchanged in overall size from 08/30/2019. 7. Cholelithiasis. Individualized dose optimization techniques were used for this CT. at 0139 Reported and signed by: Bruno Ordoñez MD Electronically Signed: Bruno Ordoñez MD at 1:38 EDT Tel , Service support , Neck CTA 05/23/21 22:27 IMPRESSION: Small amount of air in the right subclavian vein and right internal jugular vein which is commonly injection related and typically of no clinical significance. In this setting intracranial cavernous sinus air and superficial soft tissue venous air can be seen and has partially resolved compared to prior exams. Scattered atherosclerosis without focal flow-limiting stenosis or dissection. Individualized dose optimization techniques were used for this CT. at 0147 Reported and signed by: Bruno Ordoñez MD Electronically Signed: Bruno Ordoñez MD at 1:45 EDT Tel , Service support , Procedures Other Procedures Procedure(s): And anterior posterior Rhino Rocket was placed on the right side the source of bleeding. There was no obvious identifiable source. The vestibule was full of blood. There was blood posterior pharynx. Suspect the hematemesis is due to the epistaxis. Uncertain whether this is anterior versus posterior. Suspect he has significant bleeding because of the fact that he is on an anticoagulant as well as an antiplatelet medicine. Critical Care Time Critical Care Time: Yes Critical care time (excluding procedures): 30-74 minutes, 75-104 minutes (78 minutes), Including time spent: (History, physical, documentation, discussion with radiologist and initiation of therapy. Treatment for hypotension due to hemorrhage due to epistaxis.), Discussing w/Patient &/or Family/Life Science Technician, Discussing w/Consultants, Arranging Admission or Transfer (Hospitalist was paged for admission to ICU and ENT was paged, Dr. Meyer regarding epistaxis.) and Performing Direct Patient Care at Bedside (Deep sedation with etomidate and propofol to facilitate EGD by Dr. Flor.) Discharge Plan Triage Chief Complaint: Syncope ED Provider: Marcelino Fuller Dx/Rx/DC Orders Clinical Impression: Hemorrhagic shock, Epistaxis, Hematemesis, Transfusion of blood during current hospitalization, Acute hypotension, Atherosclerosis of coronary artery of [place] heart without angina pectoris, Atrial fibrillation with rapid ventricular response, Anticoagulant long-term use Prescriptions: No Action atorvastatin 80 mg tablet 80 mg PO QHS RF: 0 lamotrigine 200 mg tablet 200 mg PO BID RF: 0 lisinopril 5 mg tablet 5 mg PO QHS RF: 0 metformin 500 mg tablet extended release 24 hr 1,000 mg PO BID RF: 0 cholecalciferol (vitamin D3) 2,000 unit capsule 2,000 unit PO DAILY RF: 0 dapagliflozin 5 mg tablet 5 mg PO DAILY RF: 0 metoprolol tartrate 75 MG tablet 75 mg PO BID RF: 0 acarbose 50 MG tablet 50 mg PO TIDCM RF: 0 aspirin 81 MG tablet,delayed release (DR/EC) 81 mg PO DAILY RF: 0 nitroglycerin 0.4 MG tablet, sublingual 0.4 mg SUBLINGUAL Q5M PRN (Reason: Chest Pain) RF: 0 docusate sodium 100 MG capsule 100 mg PO BID RF: 0 finasteride 5 MG tablet 5 mg PO DAILY RF: 0 insulin degludec 100 UNIT/ML insulin pen 0 unit SQ UD RF: 0 magnesium oxide 400 MG tablet 400 mg PO DAILY RF: 0 Eliquis 2.5 mg tablet 2.5 mg PO BID Qty: 180 RF: 4 Primary Care Provider: Jerry Dee Referrals: Jerry Dee MD [Primary Care Provider] -
--- NOTE | 2021-05-23 19:51 | CT_ITS ---
STUDY: CT TEMPORAL BONES WITHOUT CONTRAST REASON FOR EXAM: Male, 76 years old. Pneumocephalus RADIATION DOSAGE (If Supplied By Facility): CTDIvol = ( 67.58 ) mGy, DLP = ( 886.58 ) mGycm TECHNIQUE: The patient was scanned in a multi detector CT scanner. High resolution transaxial imaging was performed without the administration of intravenous contrast material. Sagittal and coronal images were reconstructed. Individualized dose optimization techniques were used for this CT. COMPARISON: 5:[address] head. FINDINGS: Extensive subcutaneous emphysema is noted demonstrating interval progression in particular the infratemporal fossa bilaterally. Intravascular gas is also noted again in the cavernous sinuses bilaterally. Air-fluid level right maxillary sinus. RIGHT TEMPORAL BONE Normal right external auditory canal. Normal malleus, incus and stapedius. Normal malleoincudal and incudostapedial articulations. Normal epitympanum, mesotympanum, and hypotympanum. Normal right posterior, superior and lateral semicircular canals. Normal right vestibule and cochlea. Normal tympanic segment of the facial nerve. Normal Korner''s septum, tegmen tympani, arcuate eminence and aditus ad antrum. Normal right mastoid air cells. Normal right petrous apex. Normal right petrous carotid artery. Normal right jugular fossa. Normal right internal auditory canal. Normal right vestibular and cochlear aqueducts. LEFT TEMPORAL BONE Normal left external auditory canal. Normal malleus, incus and stapedius. Normal malleoincudal and incudostapedial articulations. Normal epitympanum, mesotympanum, and hypotympanum. Normal left posterior, superior and lateral semicircular canals. Normal left vestibule and cochlea. Normal tympanic segment of the facial nerve. Normal Korner''s septum, tegmen tympani, arcuate eminence and aditus ad antrum. Normal left mastoid air cells. Normal left petrous apex. Normal left petrous carotid artery. Normal left jugular fossa. Normal left internal auditory canal. Normal left vestibular and cochlear aqueducts. CT/Orb Sella Post Fossa Ear w/o IMPRESSION: No evidence of basilar skull fracture. Interval increase in subcutaneous emphysema and/or intravascular gas. This may represent extensive increased intravenous emboli but CT of the neck and chest recommended for further characterization regarding the source. Electronically Signed: Wiliam Bone MD at 22:18 EDT , Service support ,
--- NOTE | 2021-05-23 22:27 | CT_ITS ---
HISTORY: Intravascular-status post trauma EXAMINATION: CTA Neck WO/W Contrast Injection TECHNIQUE: Routine carotid CT angiogram protocol was performed without and with IV contrast. Nascet criteria using the distal ICAs for comparison were used for evaluation of stenoses. 3D reconstructions were reviewed. A radiation dose optimization technique was used for this scan. IV Contrast dosage and agent: IV 100mL Isovue-370 COMPARISON: CT head, CT face, CTA chest on same day FINDINGS: Small volume right subclavian and right internal jugular vein air. Mild cavernous sinus air which is decreased from prior exam. Previous facial subcutaneous soft tissue emphysema has resolved. AORTIC ARCH AND BRANCHES: Aortic atherosclerosis without dissection or ectasia. RIGHT CCA: Scattered atherosclerosis. No occlusion, significant stenosis or dissection. RIGHT ICA: Proximal atherosclerosis. No occlusion, significant stenosis or dissection. LEFT CCA: Scattered atherosclerosis. No occlusion, significant stenosis or dissection. LEFT ICA: Proximal atherosclerosis. No occlusion, significant stenosis or dissection. RIGHT VERTEBRAL ARTERY: Congenitally slightly diminutive in caliber. Mild intracranial sclerosis. No occlusion, significant stenosis or dissection. LEFT VERTEBRAL ARTERY: Mild intracranial sclerosis. No occlusion, significant stenosis or dissection. NECK SOFT TISSUES: Diffuse heterogeneous thyroid with calcifications, not significantly changed in overall size from August 30, 2019. Layering fluid compatible with blood with air along the right nasopharynx with right nasal tube in place. LUNG APICES: Clear. BONES: Acute layering sinus disease most prominent right maxillary and sphenoid sinuses. CT/CTA Neck W/WO Contrast IMPRESSION: Small amount of air in the right subclavian vein and right internal jugular vein which is commonly injection related and typically of no clinical significance. In this setting intracranial cavernous sinus air and superficial soft tissue venous air can be seen and has partially resolved compared to prior exams. Scattered atherosclerosis without focal flow-limiting stenosis or dissection. Individualized dose optimization techniques were used for this CT. at 0147 Reported and signed by: Bruno Ordoñez MD Electronically Signed: Bruno Ordoñez MD at 1:45 EDT Tel , Service support ,
--- NOTE | 2021-05-23 22:27 | CT_ITS ---
HISTORY: Fall on face TECHNIQUE: Helically acquired images were obtained of the chest following 100mL Isovue-370 IV contrast as per pulmonary angiogram protocol with 3D reconstructions. A radiation dose optimization technique was used for this scan. COMPARISON: CT chest 08/30/2019. CT face and head May 23, 2021 FINDINGS: # of images incl. paperwork: [id number] THYROID IMAGED PORTION: Heterogeneous right thyroid 3.7 cm nodule with central stippled and coarse calcifications, increase in heterogeneity and unchanged in size from 08/30/2019. Heterogeneous left thyroid with scattered calcifications. PULMONARY ARTERIES: No pulmonary embolism. No gross arterial enlargement. AORTA/AORTIC ARCH: Mild atherosclerosis. No ectasia. No dissection. VEIN: Small volume right subclavian and internal jugular vein air which is commonly injection related and typically no clinical significance. HEART/PERICARDIUM: No cardiomegaly. No significant pericardial fluid. Severe multivessel coronary atherosclerosis. Aortic valvular calcifications present. ADENOPATHY: No suspicious mediastinal or hilar adenopathy by size criteria. LUNG PARENCHYMA: Small right greater than left lower lobe groundglass centrilobular nodules. Mild bilateral peribronchial thickening. PLEURAL EFFUSION: None. PNEUMOTHORAX: None. UPPER ABDOMEN IMAGED PORTION: Small hiatal hernia. Dependent cholelithiasis. MUSCULOSKELETAL: No acute osseous finding. CT/CTA Chest W/WO Contrast IMPRESSION: 1. Small amount of air in the right subclavian vein and right internal jugular vein which is commonly injection related and typically of no clinical significance. In this setting intracranial cavernous sinus air and superficial soft tissue venous air is also commonly seen. CT does not exclude patent foramen ovale though no overt septal defect is appreciated and no there are no secondary to findings to suggest right to left cardiac shunt. 2. No pulmonary embolism. 3. Small subtle lower lobe small centrilobular groundglass nodular opacities which could represent atelectasis, infection, or alveolar edema in the appropriate setting. 4. Mild bilateral peribronchial thickening as can be seen with bronchitis/bronchiolitis. 5. Small to moderate hiatal hernia. 6. Right thyroid 3.7 cm heterogeneous nodule with internal calcifications, increased in heterogeneity though unchanged in overall size from 08/30/2019. 7. Cholelithiasis. Individualized dose optimization techniques were used for this CT. at 0139 Reported and signed by: Bruno Ordoñez MD Electronically Signed: Bruno Ordoñez MD at 1:38 EDT Tel , Service support ,
[2021-05-23] MEDS: 0.9% Normal Saline 1,000 ML 1000 ML IV (22:53)
[2021-05-23 23:02] LABS: Hematocrit 38.9 % (40-54); Hemoglobin 12.5 g/dL (13.0-16.5)
[2021-05-23 23:16] LABS: Anion Gap 10 (5-15); BUN 39 mg/dL (7-18); BUN/Creat Ratio 34.8 RATIO (10-20); Calcium,Total 7.6 mg/dL (8.5-10.1); Chloride 108 mmol/L (98-107); Creatinine, Serum 1.12 mg/dL (0.70-1.30); EST Glomerular Filtration Rate 67 mL/min (>60); Est Glom Filt Rate - Afr Amer 82 mL/min (>60); Estimated Creatinine Clearance 57.59 ml/min; Glucose 169 mg/dL (74-106); Potassium 4.5 mmol/L (3.5-5.1); Sodium Level 140 mmol/L (136-145)
--- NOTE | 2021-05-23 23:30 | ED.RN ---
OG placed, pt tolerated mildly. Pt yelling and swearing about OG being uncomfortable. Educated at length the need and reason for the OG. Pt tolerated. irrigated OG with 1000ml of sterile water. 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 Dr Fuller notified and states to send patient to CT and resume irrigation afterwards.
--- NOTE | 2021-05-23 23:44 | ED.RN ---
When chair caner at bedside patient began vomiting and then pulled OG out. Dr Fuller notified and verbal orders not to replace OG and send patient to CT. Paged out to GI doctor at this time.
[2021-05-23 23:51] LABS: Lactic Acid 3.3 mmol/L (0.4-1.9)
[2021-05-24] VITALS (31 sets, daily range): BP systolic 70–163; BP diastolic 41–104; PULSE 84–158; RESP 12–34; TEMP 36.6–37.4; O2SAT 96–100; BMI 22.1
[2021-05-24] MEDS: HUMAN PROTHROMBIN COMPLX(PCC) 3,500 UNIT in Viaflex Bag 1 BAG 500 UNIT IV (00:24)
[2021-05-24] MEDS: Propofol 200 MG/20 ML Vial 100 MG IV BOLUS (01:10)
[2021-05-24] MEDS: Etomidate 20 MG/10 ML Vial IV (01:10)
--- NOTE | 2021-05-24 01:27 | CON.PCM.GI_ITS ---
HPI Consult Data Date of Consult: 05/24/21 HPI Narrative HPI Narrative: AGUSTO CASTILLO, is a 76 M who presents from home EMS after sustaining a head trauma. As per his he passed out hit his head. He has a history of CAD status post PTCA with stents on antiplatelet therapy, atrial fibrillation on Eliquis therapy. He developed a very severe nosebleed. He had a CT scan of the head which it showed Right maxillary sinusitis and Intravascular gas emboli as above may represent peripheral venous gas and a patent foramen ovale. He had his nose packed with a nasal rocket to tamponade the bleed. I was called to see the patient because he had vomited a lot of blood. They were not sure if the blood was coming from his upper GI tract or from his nose. An OG tube was placed and it revealed a lot of bright red blood. I was called in to see the patient for emergent endoscopy. [facility]LY [facility] Medical History Acid reflux Anemia Atherosclerosis of coronary artery of [place] heart without angina pectoris Atrial fibrillation BPH (benign prostatic hyperplasia) Chronic diastolic (congestive) heart failure Chronic kidney disease Erectile dysfunction Essential (primary) hypertension History of non-ST elevation myocardial infarction (NSTEMI) (08/26/16) Hyperlipidemia Inguinal hernia of right side without obstruction or gangrene Iron deficiency anemia Longstanding persistent atrial fibrillation Multinodular goiter Nonrheumatic aortic (valve) stenosis Paroxysmal atrial fibrillation Partial seizure disorder Peripheral vascular occlusive disease Pre-syncope Syncope Syncope Type 2 diabetes mellitus Urinary retention Urinary retention due to benign prostatic hyperplasia Ventral incisional hernia without obstruction or gangrene Home Medications atorvastatin 80 mg tablet 80 mg PO QHS 07/21/18 [History Last Taken 05/23/19] cholecalciferol (vitamin D3) 50 mcg (2,000 unit) capsule 2,000 unit PO DAILY 07/21/18 [History Last Taken 05/23/19] lamotrigine 200 mg tablet 200 mg PO BID 07/21/18 [History Last Taken 05/24/19 05:30] lisinopril 5 mg tablet 5 mg PO QHS 07/21/18 [History Last Taken 05/23/19] metformin 500 mg tablet,extended release 24 hr 1,000 mg PO BID tab 07/21/18 [History Last Taken 08/07/20] metoprolol tartrate 75 mg PO BID 05/25/19 [History Last Taken 05/24/19] dapagliflozin 5 mg tablet 5 mg PO DAILY tab 02/29/20 [History Last Taken Unknown] acarbose 50 mg PO TIDCM 08/07/20 [History Last Taken Unknown] aspirin 81 mg PO DAILY 08/07/20 [History Last Taken Unknown] docusate sodium 100 mg PO BID 08/07/20 [History Last Taken Unknown] finasteride 5 mg PO DAILY 08/07/20 [History Last Taken Unknown] insulin degludec 0 unit SQ UD 08/07/20 [History Last Taken Unknown] magnesium oxide 400 mg PO DAILY 08/07/20 [History Last Taken Unknown] nitroglycerin 0.4 mg SUBLINGUAL Q5M PRN 08/07/20 [History Last Taken Unknown] apixaban 2.5 mg tablet 2.5 mg PO BID #180 tab 09/06/20 [Rx Last Taken Unknown] Allergy/AdvReac Type Severity Reaction Status Date / Time carbamazepine [From Tegretol] Allergy Rash Verified 05/23/21 16:58 Family History Mother Cancer Heart disease Father Hypertension Diabetes Son Heart disease Surgical History History of angioplasty of peripheral vessel (06/28/14) History of cardioversion (08/21/16) History of colonoscopy (01/2019) History of coronary artery stent placement (08/26/16) History of inguinal hernia repair 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 Marcelino Fuller MD) household members: spouse Smoking Status: Former smoker quit date: 08/04/69 pack-years: 10 alcohol intake: current alcohol intake frequency: a few times a month substance use type: does not use ROS Review of Systems ROS Unobtainable: other Constitutional Constitutional: Denies fatigue, fever(s), poor appetite, weight gain or weight loss ENT HEENT: Denies mouth lesions Cardiovascular Cardiovascular: Denies abdominal bloating, abdominal edema or abdominal pain Respiratory/Chest Respiratory/Chest: Denies change in mental status, change in phlegm color, chest congestion or chest tightness Gastrointestinal Gastrointestinal: Denies belching, bloating, change in bowel habits, change in stool character, chewing difficulty, coffee ground emesis, constipation, cramping, diarrhea, dyspepsia, dysphagia, early satiety, excessive flatus, fecal incontinence, heartburn, hematemesis, hematochezia, hemorrhoids, loose stools, melena, nausea, odynophagia, rectal bleeding, tenesmus, vomiting or weight changes Genitourinary Genitourinary: Denies abdominal discomfort, burning urination or itching Musculoskeletal Musculoskeletal: Reports as per HPI; Denies muscle weakness or myalgias Integumentary Integumentary: Denies jaundice Neurologic Neurologic: Denies lack of coordination or weakness Psychiatric Psychiatric: Denies confusion, depression, memory loss, mood swings, paranoia or suicidal ideation Endocrine Endocrinology: Denies systems reviewed and no addt'l complaints, except as documented Hematologic/Lymphatic Hematologic/Lymphatic: Denies anemia, easy bleeding, easy bruising or lymphadenopathy Allergic/Immunologic Allergic/Immunologic: Denies systems reviewed and no addt'l complaints, except as documented Physical Exam Const alert General Appearance: cooperative Orientation / Consciousness: oriented to person HEENT hearing grossly normal bilaterally Head and Scalp: normal to inspection Face and Sinus: face symmetric Nose: external nose normal Mouth: oral and palatal mucosa normal Eyes conjunctivae normal General Eye: normal appearance of both eyes Neck full ROM General: normal visual inspection Lymph Lymphatic: no lymphadenopathy noted Chest inspection of chest normal and palpation of chest normal Chest: symmetrical chest wall rise Resp normal respiratory effort Effort and Inspection: able to speak in complete sentences Cardio Palpation: abnormal PMI Rate: tachycardic Rhythm: abnormal rhythm GI non-distended Percussion: normal to percussion Rectal Exam: deferred Neuro Speech: speech normal Gait (Neuro): normal gait Lab / Micro Data Result Diagrams: 05/23/21 22:54 05/23/21 22:54 Labs: Laboratory Results - last 24 hr 05/23/21 22:54: Hgb 12.5 L, Hct 38.9 L 05/23/21 22:54: Antibody Screen NEGATIVE, Crossmatch See Detail 05/23/21 22:54: Sodium 140, Potassium 4.5, Chloride 108 H, Carbon Dioxide 22.0, Anion Gap 10, BUN 39 H, Creatinine 1.12, Estim Creat Clear Calc 57.59, Est GFR (MDRD) Af Amer 82, Est GFR (MDRD) Non-Af 67, BUN/Creatinine Ratio 34.8 H, Glucose 169 H, Calcium 7.6 L 05/23/21 22:54: Lactic Acid 3.3 H* 05/23/21 22:54: Blood Type A POSITIVE Radiology Impression Brain CT 05/23/21 17:36 IMPRESSION: Right maxillary sinusitis. Intravascular gas emboli as above may represent peripheral venous gas and a patent foramen ovale. Clinical correlation required. Consider temporal arteritis. Electronically Signed: Wiliam Bone MD at 18:43 EDT , Service support , Facial/Sinus 05/23/21 18:01 IMPRESSION: Sinusitis versus hemorrhage. Probable remote fracture bony septum. Electronically Signed: Wiliam Bone MD at 18:47 EDT , Service support , CT Orbit Sella Inner 05/23/21 19:51 IMPRESSION: No evidence of basilar skull fracture. Interval increase in subcutaneous emphysema and/or intravascular gas. This may represent extensive increased intravenous emboli but CT of the neck and chest recommended for further characterization regarding the source. Electronically Signed: Wiliam Bone MD at 22:18 EDT , Service support , Assessment & Plan Assessment/Plan (1) Hematemesis: PLAN: Possible upper GI bleed secondary to Ya-Wilkes tear versus peptic ulcer disease. Likely this is an nosebleed in the blood was swallowed. I will perform upper endoscopy so that we can make sure there is is no other source of blood loss. Charges/Coding Visit Charges Inpatient E&M: 36943 Init Hosp L2
[2021-05-24] MEDS: 0.9% Normal Saline 1,000 ML 1000 ML IV (01:41)
--- NOTE | 2021-05-24 01:47 | PCM.HP.STD ---
HPI - General General Date of Admission: 05/24/21 Date of Service: 05/24/21 Chief Complaint: Fall, traumatic epistaxis, hypotension. HPI Narrative The patient is a 76-year-old male w/ PMHx: CAD, PAF, BPH, Chronic diastolic CHF, HTN, HLD, Diabetes mellitus type II, Partial seizure disorder per record, GERD, Chronic anemia who presents to the [facility] ED on 05/24/21 with history of autonomic disease with syncopal event while attempting to bed over to tie his shoes, unfortunately landing flat on his face with significant hemostat axis unabating following prompting ED evaluation. Patient notes that if he does change positions quickly especially from any seated to standing position he can have near syncopal symptoms. Work-up in the ED included initially T 97.5, heart rate 81, BP 150/129, respiratory rate 20, 99% on room air however most recent vital signs heart rate 105, BP trended downward to 70/41 with most recent repeat 84/62, respiratory rate 18, 96% on 2 L nasal cannula, hemoglobin 12.5, hematocrit 38.9, BMP with chloride 108, BUN/creatinine 39/1.12, glucose 169, lactic acid 3.3, type and cross performed per ED, CT brain with right maxillary sinusitis, intravascular gas emboli possibly u.s. representative of venous gas and a patent foramen ovale, CT facial bones with sinusitis versus hemorrhage with probable remote fracture bony septum, CT temporal bones with no evidence of any basilar skull fracture, interval increase in subcutaneous emphysema and or gas possibly extensive increased intravenous emboli with recommended CT of the neck and chest to further elucidate, CTA chest with a small amount of air in the right subclavian vein and right internal jugular vein, no evidence of pulmonary emboli, small subtle lower lobe small centrilobular ground-glass nodular opacities possibly atelectasis, infection or alveolar edema, mild bilateral peribronchial thickening, small to moderate hiatal hernia, right thyroid 3.7 cm heterogeneous nodule with internal calcifications increased in heterogeneity though unchanged in overall size since 08/30/2019, CTA neck with a small amount of air in the right subclavian vein and right internal jugular vein, scattered atherosclerosis without focal flow-limiting stenosis or dissection. ED physician consulted GI as notable episode hematemesis while in the ED and despite irrigation with fluids he continued to have bleeding prompting GI consultation. He noted possibly an upper GI bleed secondary to [place] tear versus peptic ulcer disease although felt likely nosebleed in the blood was swallowed. He performed an upper endoscopy and felt this presentation was secondary to his epistaxis. Patient also noted to be atrial fibrillation with RVR. The patient has been administered 1 u PRBC in the ED, K-centra and now on his 3rd L IVFs. ED ordered an additional 1 u PRBC. [facility] Medical History Acid reflux Anemia Atherosclerosis of coronary artery of [place] heart without angina pectoris Atrial fibrillation BPH (benign prostatic hyperplasia) Chronic diastolic (congestive) heart failure Chronic kidney disease Erectile dysfunction Essential (primary) hypertension History of non-ST elevation myocardial infarction (NSTEMI) (08/26/16) Hyperlipidemia Inguinal hernia of right side without obstruction or gangrene Iron deficiency anemia Longstanding persistent atrial fibrillation Multinodular goiter Nonrheumatic aortic (valve) stenosis Paroxysmal atrial fibrillation Partial seizure disorder Peripheral vascular occlusive disease Pre-syncope Syncope Syncope Type 2 diabetes mellitus Urinary retention Urinary retention due to benign prostatic hyperplasia Ventral incisional hernia without obstruction or gangrene Home Medications atorvastatin 80 mg tablet 80 mg PO QHS 07/21/18 [History Last Taken 05/23/19] cholecalciferol (vitamin D3) 50 mcg (2,000 unit) capsule 2,000 unit PO DAILY 07/21/18 [History Last Taken 05/23/19] lamotrigine 200 mg tablet 200 mg PO BID 07/21/18 [History Last Taken 05/24/19 05:30] lisinopril 5 mg tablet 5 mg PO QHS 07/21/18 [History Last Taken 05/23/19] metformin 500 mg tablet,extended release 24 hr 1,000 mg PO BID tab 07/21/18 [History Last Taken 08/07/20] metoprolol tartrate 75 mg PO BID 05/25/19 [History Last Taken 05/24/19] dapagliflozin 5 mg tablet 5 mg PO DAILY tab 02/29/20 [History Last Taken Unknown] acarbose 50 mg PO TIDCM 08/07/20 [History Last Taken Unknown] aspirin 81 mg PO DAILY 08/07/20 [History Last Taken Unknown] docusate sodium 100 mg PO BID 08/07/20 [History Last Taken Unknown] finasteride 5 mg PO DAILY 08/07/20 [History Last Taken Unknown] insulin degludec 0 unit SQ UD 08/07/20 [History Last Taken Unknown] magnesium oxide 400 mg PO DAILY 08/07/20 [History Last Taken Unknown] nitroglycerin 0.4 mg SUBLINGUAL Q5M PRN 08/07/20 [History Last Taken Unknown] apixaban 2.5 mg tablet 2.5 mg PO BID #180 tab 09/06/20 [Rx Last Taken Unknown] Allergy/AdvReac Type Severity Reaction Status Date / Time carbamazepine [From Tegretol] Allergy Rash Verified 05/23/21 16:58 Family History Mother Cancer Heart disease Father Hypertension Diabetes Son Heart disease Surgical History History of angioplasty of peripheral vessel (06/28/14) History of cardioversion (08/21/16) History of colonoscopy (01/2019) History of coronary artery stent placement (08/26/16) History of inguinal hernia repair 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 Marcelino Fuller MD) household members: spouse Smoking Status: Former smoker quit date: 08/04/69 pack-years: 10 alcohol intake: current alcohol intake frequency: a few times a month substance use type: does not use ROS ROS Narrative Admission Review of Systems: CONSTITUTIONAL: No weight loss, fever, chills, + weakness or fatigue. HEENT: + Facial discomfort. Eyes: No visual loss, blurred vision, double vision or yellow sclerae. Ears, Nose, Throat: No hearing loss, sneezing, congestion, runny nose or sore throat. SKIN: No rash or itching, lesions, wounds. CARDIOVASCULAR: No chest pain, chest pressure or chest discomfort, palpitations, edema, orthopnea, syncopal events. RESPIRATORY: No shortness of breath, cough or sputum, wheezing, hemoptysis. GASTROINTESTINAL: No anorexia, nausea, vomiting or diarrhea, abdominal pain, melena, BRBPR. GENITOURINARY: No dysuria, frequency, urgency or retention. NEUROLOGICAL: + headache, dizziness, syncope, No paralysis, ataxia, numbness or tingling in the extremities, focal weakness, change in bowel or bladder control, seizure. MUSCULOSKELETAL: No muscle, back pain, joint pain or stiffness. HEMATOLOGIC: + anemia, bleeding or bruising. LYMPHATICS: No enlarged nodes. No history of splenectomy. PSYCHIATRIC: No history of depression or anxiety. ENDOCRINOLOGIC: No reports of sweating, cold or heat intolerance. No polyuria or polydipsia. ALLERGIES: No history of asthma, hives, eczema or rhinitis. Vital Signs Vital Signs Vital Signs: 05/23/21 17:00 05/23/21 17:10 05/23/21 17:14 Temperature 97.5 F L Temperature Source Temporal Pulse Rate 81 79 Pulse Rate [2] Pulse Rate [3] Pulse Rate [4] Pulse Rate [5] Pulse Rate [6] Pulse Rate [7] Pulse Rate [8] Respiratory Rate 20 H 17 Respiratory Rate [2] Respiratory Rate [3] Respiratory Rate [4] Respiratory Rate [5] Respiratory Rate [6] Respiratory Rate [7] Respiratory Rate [8] Respiratory Effort Normal Non-Labored Respiratory Pattern Normal Blood Pressure 150/129 H 151/89 H Blood Pressure [4] Blood Pressure [5] Blood Pressure [6] Blood Pressure [7] Blood Pressure Mean 136 109 Blood Pressure Source Pulse Ox 99 99 Oxygen Delivery Method Room Air Room Air Oxygen Delivery Method [2] Oxygen Delivery Method [4] Oxygen Delivery Method [5] Oxygen Delivery Method [6] Oxygen Delivery Method [7] Oxygen Delivery Method [8] Oxygen Flow Rate (L/min) Oxygen Flow Rate (L/min) [2] 05/23/21 19:00 05/23/21 21:00 05/23/21 21:30 Temperature Temperature Source Pulse Rate 99 102 H 103 H Pulse Rate [2] Pulse Rate [3] Pulse Rate [4] Pulse Rate [5] Pulse Rate [6] Pulse Rate [7] Pulse Rate [8] Respiratory Rate 10 L 15 15 Respiratory Rate [2] Respiratory Rate [3] Respiratory Rate [4] Respiratory Rate [5] Respiratory Rate [6] Respiratory Rate [7] Respiratory Rate [8] Respiratory Effort Respiratory Pattern Blood Pressure 93/55 L 92/50 L 88/54 L Blood Pressure [4] Blood Pressure [5] Blood Pressure [6] Blood Pressure [7] Blood Pressure Mean 67 64 65 Blood Pressure Source Pulse Ox 97 98 100 Oxygen Delivery Method Room Air Room Air Room Air Oxygen Delivery Method [2] Oxygen Delivery Method [4] Oxygen Delivery Method [5] Oxygen Delivery Method [6] Oxygen Delivery Method [7] Oxygen Delivery Method [8] Oxygen Flow Rate (L/min) Oxygen Flow Rate (L/min) [2] 05/23/21 22:00 05/23/21 22:30 05/23/21 23:00 Temperature Temperature Source Pulse Rate 105 H 104 H 121 H Pulse Rate [2] Pulse Rate [3] Pulse Rate [4] Pulse Rate [5] Pulse Rate [6] Pulse Rate [7] Pulse Rate [8] Respiratory Rate 15 22 H 22 H Respiratory Rate [2] Respiratory Rate [3] Respiratory Rate [4] Respiratory Rate [5] Respiratory Rate [6] Respiratory Rate [7] Respiratory Rate [8] Respiratory Effort Respiratory Pattern Blood Pressure 96/58 L 93/69 109/60 Blood Pressure [4] Blood Pressure [5] Blood Pressure [6] Blood Pressure [7] Blood Pressure Mean 70 77 76 Blood Pressure Source Pulse Ox 98 99 100 Oxygen Delivery Method Room Air Room Air Room Air Oxygen Delivery Method [2] Oxygen Delivery Method [4] Oxygen Delivery Method [5] Oxygen Delivery Method [6] Oxygen Delivery Method [7] Oxygen Delivery Method [8] Oxygen Flow Rate (L/min) Oxygen Flow Rate (L/min) [2] 05/23/21 23:30 05/24/21 00:00 05/24/21 00:49 Temperature 98.1 F Temperature Source Temporal Pulse Rate 126 H 123 H 123 H Pulse Rate [2] Pulse Rate [3] Pulse Rate [4] Pulse Rate [5] Pulse Rate [6] Pulse Rate [7] Pulse Rate [8] Respiratory Rate 20 H 18 21 H Respiratory Rate [2] Respiratory Rate [3] Respiratory Rate [4] Respiratory Rate [5] Respiratory Rate [6] Respiratory Rate [7] Respiratory Rate [8] Respiratory Effort Respiratory Pattern Blood Pressure 92/62 111/69 101/58 L Blood Pressure [4] Blood Pressure [5] Blood Pressure [6] Blood Pressure [7] Blood Pressure Mean 72 83 72 Blood Pressure Source Monitor Pulse Ox 100 100 96 Oxygen Delivery Method Room Air Room Air Room Air Oxygen Delivery Method [2] Oxygen Delivery Method [4] Oxygen Delivery Method [5] Oxygen Delivery Method [6] Oxygen Delivery Method [7] Oxygen Delivery Method [8] Oxygen Flow Rate (L/min) Oxygen Flow Rate (L/min) [2] 05/24/21 00:52 05/24/21 01:02 05/24/21 01:05 Temperature 98 F Temperature Source Temporal Pulse Rate 128 H 129 H Pulse Rate [2] 120 H Pulse Rate [3] 145 H Pulse Rate [4] 139 H Pulse Rate [5] 158 H Pulse Rate [6] 141 H Pulse Rate [7] 142 H Pulse Rate [8] 120 H Respiratory Rate 22 H 17 Respiratory Rate [2] 18 Respiratory Rate [3] 28 H Respiratory Rate [4] 26 H Respiratory Rate [5] 25 H Respiratory Rate [6] 32 H Respiratory Rate [7] 33 H Respiratory Rate [8] 34 H Respiratory Effort Respiratory Pattern Blood Pressure 111/69 109/69 Blood Pressure [4] 98/65 Blood Pressure [5] 127/101 H Blood Pressure [6] 94/55 L Blood Pressure [7] 99/66 Blood Pressure Mean 83 Blood Pressure Source Monitor Pulse Ox 96 99 Oxygen Delivery Method Room Air Room Air Oxygen Delivery Method [2] Nasal Cannula Oxygen Delivery Method [4] Nasal Cannula Oxygen Delivery Method [5] Nasal Cannula Oxygen Delivery Method [6] Nasal Cannula Oxygen Delivery Method [7] Nasal Cannula Oxygen Delivery Method [8] Nasal Cannula Oxygen Flow Rate (L/min) Oxygen Flow Rate (L/min) [2] 100 05/24/21 01:07 05/24/21 01:20 05/24/21 01:25 Temperature 98.5 F Temperature Source Temporal Pulse Rate 123 H 126 H 122 H Pulse Rate [2] Pulse Rate [3] Pulse Rate [4] Pulse Rate [5] Pulse Rate [6] Pulse Rate [7] Pulse Rate [8] Respiratory Rate 18 18 12 Respiratory Rate [2] Respiratory Rate [3] Respiratory Rate [4] Respiratory Rate [5] Respiratory Rate [6] Respiratory Rate [7] Respiratory Rate [8] Respiratory Effort Respiratory Pattern Blood Pressure 110/68 89/57 L 70/41 L Blood Pressure [4] Blood Pressure [5] Blood Pressure [6] Blood Pressure [7] Blood Pressure Mean 82 Blood Pressure Source Monitor Pulse Ox 99 96 97 Oxygen Delivery Method Room Air Nasal Cannula Nasal Cannula Oxygen Delivery Method [2] Oxygen Delivery Method [4] Oxygen Delivery Method [5] Oxygen Delivery Method [6] Oxygen Delivery Method [7] Oxygen Delivery Method [8] Oxygen Flow Rate (L/min) 2 Oxygen Flow Rate (L/min) [2] 05/24/21 01:30 05/24/21 01:35 Temperature Temperature Source Pulse Rate 118 H 105 H Pulse Rate [2] Pulse Rate [3] Pulse Rate [4] Pulse Rate [5] Pulse Rate [6] Pulse Rate [7] Pulse Rate [8] Respiratory Rate 19 H 18 Respiratory Rate [2] Respiratory Rate [3] Respiratory Rate [4] Respiratory Rate [5] Respiratory Rate [6] Respiratory Rate [7] Respiratory Rate [8] Respiratory Effort Respiratory Pattern Blood Pressure 79/43 L 84/62 L Blood Pressure [4] Blood Pressure [5] Blood Pressure [6] Blood Pressure [7] Blood Pressure Mean 69 Blood Pressure Source Pulse Ox 96 97 Oxygen Delivery Method Nasal Cannula Nasal Cannula Oxygen Delivery Method [2] Oxygen Delivery Method [4] Oxygen Delivery Method [5] Oxygen Delivery Method [6] Oxygen Delivery Method [7] Oxygen Delivery Method [8] Oxygen Flow Rate (L/min) 2 Oxygen Flow Rate (L/min) [2] Weight Weight: 165 lb 2.02 oz Body Mass Index (BMI) 23.0 Physical Exam Narrative Physical Examination: General: Awake, alert, oriented x 3 and cooperative, seated upright in the ED bed, fatigued, nasal rocket in place, bleeding abated. Skin: Normal color, normal turgor, no icterus, no cyanosis. HEENT: AT/NC, EOMI, PERRLA, dry MM, right nare nasal rocket in place with bleeding abated, no carotid bruits or JVD noted. Lungs: Diminished, greater bases, appropriate effort, no rales, ronchi or wheezing. Heart: Irregular irregular; no gallop, rub audible. Abdomen: Soft, NTTP, ND, normal BS, no HSM. Extremities: No cyanosis, clubbing, or edema. Neurological: Patient awake, alert, oriented as noted, cognitive function intact; pupils equally reactive to light and accommodation, cranial nerves II-XII grossly normal, moving all 4 extremities, no focal deficits, strength severely globally decreased secondary to acute presentation. Psychiatric: Affect appears fatigued, no acute evidence of depressive or anxiety feelings. Results Lab / Micro Data Result Diagrams: 05/24/21 03:41 05/24/21 03:41 Labs: Laboratory Results - last 24 hr 05/23/21 22:54: Hgb 12.5 L, Hct 38.9 L 05/23/21 22:54: Antibody Screen NEGATIVE, Crossmatch See Detail 05/23/21 22:54: Sodium 140, Potassium 4.5, Chloride 108 H, Carbon Dioxide 22.0, Anion Gap 10, BUN 39 H, Creatinine 1.12, Estim Creat Clear Calc 57.59, Est GFR (MDRD) Af Amer 82, Est GFR (MDRD) Non-Af 67, BUN/Creatinine Ratio 34.8 H, Glucose 169 H, Calcium 7.6 L 05/23/21 22:54: Lactic Acid 3.3 H* 05/23/21 22:54: Blood Type A POSITIVE Radiology Impression Brain CT 05/23/21 17:36 IMPRESSION: Right maxillary sinusitis. Intravascular gas emboli as above may represent peripheral venous gas and a patent foramen ovale. Clinical correlation required. Consider temporal arteritis. Electronically Signed: Wiliam Bone MD at 18:43 EDT , Service support , Facial/Sinus 05/23/21 18:01 IMPRESSION: Sinusitis versus hemorrhage. Probable remote fracture bony septum. Electronically Signed: Wiliam Bone MD at 18:47 EDT , Service support , CT Orbit Sella Inner 05/23/21 19:51 IMPRESSION: No evidence of basilar skull fracture. Interval increase in subcutaneous emphysema and/or intravascular gas. This may represent extensive increased intravenous emboli but CT of the neck and chest recommended for further characterization regarding the source. Electronically Signed: Wiliam Bone MD at 22:18 EDT , Service support , Chest CTA 05/23/21 22:27 IMPRESSION: 1. Small amount of air in the right subclavian vein and right internal jugular vein which is commonly injection related and typically of no clinical significance. In this setting intracranial cavernous sinus air and superficial soft tissue venous air is also commonly seen. CT does not exclude patent foramen ovale though no overt septal defect is appreciated and no there are no secondary to findings to suggest right to left cardiac shunt. 2. No pulmonary embolism. 3. Small subtle lower lobe small centrilobular groundglass nodular opacities which could represent atelectasis, infection, or alveolar edema in the appropriate setting. 4. Mild bilateral peribronchial thickening as can be seen with bronchitis/bronchiolitis. 5. Small to moderate hiatal hernia. 6. Right thyroid 3.7 cm heterogeneous nodule with internal calcifications, increased in heterogeneity though unchanged in overall size from 08/30/2019. 7. Cholelithiasis. Individualized dose optimization techniques were used for this CT. at 0139 Reported and signed by: Bruno Ordoñez MD Electronically Signed: Bruno Ordoñez MD at 1:38 EDT Tel , Service support , Assessment & Plan Assessment/Plan (1) Hemorrhagic shock: (2) Epistaxis: PLAN: The patient is a 76-year-old male w/ PMHx: CAD, PAF, BPH, Chronic diastolic CHF, HTN, HLD, Diabetes mellitus type II, Partial seizure disorder per record, GERD, Chronic anemia who presents to the [facility] ED on 05/24/21 with history of autonomic disease with syncopal event while attempting to bed over to tie his shoes, unfortunately landing flat on his face with significant hemostat axis unabating following prompting ED evaluation. 1. Acute Hemorrhagic Shock secondary to Traumatic Epistasis: We will admit to the ICU, nasal rocket remains in place from the ED physician intervention, will place on Augmentin therapy, will allow clears at this time and advance diet as tolerated, will continue consultations initiated per ED including ENT, gastroenterology who scoped the patient in the ED, lieutenant firefighter who is aware of the case, will repeat AM CBC and further obtain H&H's as needed serially, hold any anticoagulant therapy, maintain on fall risks, continue judicious IV fluids and if necessary additional PRBC administration. PT/OT/case management consultations for discharge planning. 2. Paroxsymal atrial fibrillation w/ RVR: EKG in ED w/ atrial fibrillation w/ RVR. Patient administered amiodarone bolus in ED secondary to patient hypotension associate with #1. Will maintain on telemetry, obtain cardiac enzyme serial set, obtain magnesium level, obtain ECHO, obtain TSH level. Given presentation holding any anticoagulant therapy. With BP improvement will reinitiate patient home metoprolol once appropriate. 3. Syncopal Event: Likely secondary to patient underlying autonomic underlying issues however to be cautious will maintain on cardiac monitoring, will cycle cardiac enzymes and will obtain echocardiogram. Will plan to obtain orthostatic vital signs in the a.m. following PRBC administration IV fluid administration given presentation as noted #1. 4. Intravascular gas infratemporal fossa, cavernous sinus and superior sagittal sinus: Noted on CT imaging, likely associate with fall, reviewed with lieutenant firefighter per ED physician with recommendation for continued nasal cannula supplementation. 5. Right thyroid heterogeneous nodule: Patient with known right thyroid nodule, CT imaging with a 3.7 cm heterogeneous nodule with similar size however increased heterogenicity noted, encourage continued outpatient evaluation and follow-up. 6. Chronic diastolic CHF: Complicates presentation, patient aggressively administered fluid resuscitation in addition to PRBC administration, will need to cautiously monitor for any fluid overload, holding aspirin and apixaban given acute presentation as noted, add back beta-shirley and lisinopril once blood pressure improves, continue statin therapy. 7. CAD: Status post PCI, will hold aspirin, apixaban given acute presentation as noted above, add back metoprolol and lisinopril once BP improved, continue statin therapy. 8. Diabetes mellitus type II: Hold oral home regimen, given presentation initiate clears and if tolerated transition to ADA 1800 diet, accu checks w/ ISS. 9. Hypertension: Initially significantly hypotensive with hemorrhagic shock, improved with PRB C administration aggressive IV fluids, given A. fib RVR once improved will plan administration metoprolol. 10. Hyperlipidemia: We will continue home statin therapy. 11. Partial seizure disorder: We will continue patient home lamotrigine regimen. 12. BPH: We will continue patient home finasteride regimen. 13. DVT prophylaxis: SCDs, holding home apixaban regimen given acute presentation as noted #1. 14. CODE status: Patient present for discussions and confirms living will and healthcare power of assistant attorney general is in place. Discussed CODE status at length including difference between FULL code, DNR-CCA and DNR-CC status. Following discussions about the differences in these status, requested Full Code status. Advanced Care Planning Face to Face Time: 16 minutes. Charges/Coding Visit Charges Inpatient E&M: 61078 Init Hosp L3 Procedures Hospitalists Procedures: 34751 Advncd Care Plan 30 Min
[2021-05-24 01:49] LABS: Hemoglobin 11.7 g/dL (13.0-16.5)
--- NOTE | 2021-05-24 02:56 | NURSING ---
EMERGENCY DOCUMENTATION
[2021-05-24 02:59] LABS: Reflex Lactate? Y
--- NOTE | 2021-05-24 03:55 | ECHOD_ITS ---
Reason For Study: Syncope Procedure This was a 2D Doppler, Color Flow transthoracic echocardiogram. Exam performed portable in ICU/CCU. Left Ventricle Normal LV size. The estimated ejection fraction is 60 %. Unable to assess diastolic dysfunction. No regional wall motion abnormalities noted. Right Ventricle Normal RV size. Normal systolic function. Atria The left atrium is moderately enlarged. Normal right atrium. No doppler evidence for ASD. Mitral Valve There is moderate to severe mitral annular calcification. There is no mitral valve stenosis. No mitral valve insufficiency. Tricuspid Valve There is no tricuspid stenosis. Trivial tricuspid valve insufficiency. Pulmonary artery systolic pressure is 30 mmHg. Aortic Valve Trisinus/trileaflet aortic valve. Moderate diffuse aortic valve calcification. Mild aortic stenosis. No aortic valve insufficiency. Pulmonic Valve There is no pulmonic valvular stenosis. No pulmonic valve insufficiency. Great Vessels Normal aortic root. Pericardium/Pleural Trivial pericardial effusion. MMode/2D Measurements & Calculations LVIDd: 4.4 cm IVSd: 1.1 cm LVOT diam: 2.2 cm LVIDs: 3.0 cm LVPWd: 1.3 cm LVOT area: 3.8 cm2 RVDd: 3.2 cm FS: 31.6 % Ao root diam: 3.6 cm LAV(MOD-bp): 87.4 ml LVAd ap4: 24.9 cm2 LAV(MOD-bp) Indexed: 45.7 ml/m2 LVLd ap4: 7.3 cm LAV(MOD-sp2): 82.3 ml EDV(MOD-sp4): 72.2 ml LAV(MOD-sp4): 85.0 ml EDV(sp4-el): 72.2 ml LVAs ap4: 15.3 cm2 LVLs ap4: 6.5 cm ESV(MOD-sp4): 31.0 ml ESV(sp4-el): 30.4 ml EF(MOD-sp4): 57.1 % EF(sp4-el): 57.8 % LVAd ap2: 24.4 cm2 SV(MOD-sp4): 41.2 ml SV(MOD-sp2): 34.8 ml LVLd ap2: 7.8 cm EDV(MOD-sp2): 65.2 ml EDV(sp2-el): 65.1 ml LVAs ap2: 15.4 cm2 LVLs ap2: 6.9 cm ESV(MOD-sp2): 30.4 ml ESV(sp2-el): 29.2 ml EF(MOD-sp2): 53.4 % SV(sp4-el): 41.8 ml LA dimension(2D): 4.3 cm LA A4 area: 25.1 cm2 RA A4 area: 19.6 cm2 Doppler Measurements & Calculations MV E max luis carlos: 119.0 cm/sec Ao V2 max: 249.7 cm/sec LV V1 max: 107.4 cm/sec Ao max P.9 mmHg LV V1 max P.6 mmHg Ao V2 mean: 180.3 cm/sec LV V1 mean P.4 mmHg Ao mean P.2 mmHg LV V1 mean: 71.9 cm/sec Ao V2 VTI: 45.0 cm LV V1 VTI: 18.7 cm KAVON(I,D): 1.6 cm2 KAVON(V,D): 1.6 cm2 SV(LVOT): 71.4 ml PA V2 max: 127.5 cm/sec TR max luis carlos: 242.8 cm/sec TR max P.6 mmHg ECHO/Echo Complete Interpretation Summary The estimated ejection fraction is 60 %. Unable to assess diastolic dysfunction. The left atrium is moderately enlarged. Moderate diffuse aortic valve calcification. Mild aortic stenosis. Ordering Physician: Catherine Macias Referring Physician: Jerry Dee Performed By: Dianelys Plasencia RDCS
[2021-05-24 04:00] LABS: Absolute Lymphocyte Count 1.27 X10^3/uL (0.83-4.51); Absolute Neutrophil Count 6.3 X10^3/uL (2.0-7.7); Basophil# 0.03 X10^3/uL; Basophil% 0.4 % (0-1); Eosinophil# 0.02 X10^3/uL; Eosinophils% 0.2 % (0-5); Hematocrit 42.7 % (40-54); Hemoglobin 13.9 g/dL (13.0-16.5); Lymphocyte # 1.27 X10^3/ul (0.83-4.51); Lymphocyte % 15.8 % (19-41); Mean Corp Hgb Conc 32.6 g/dL (32-36); Mean Corpuscular Hgb 29.3 pg (27.0-32.0); Mean Corpuscular Volume 89.9 fL (80-94); Mean Platelet Vol. 9.5 fl (6.2-12.0); Monocyte# 0.42 X10^3/uL; Monocyte% 5.2 % (0-10); NRBC Flagged by Analyzer 0 % (0-5); Neutrophil # 6.26 X10^3/uL (2.7-7.7); Platelet Count 212 K/mm3 (150-450); RBC Distribution Width CV 13.9 % (11.6-14.6); RBC Distribution Width SD 45.7 fl (35.1-43.9); Red Blood Count 4.75 M/mm3 (4.6-6.2)
[2021-05-24] MEDS: 0.9% Normal Saline 1,000 ML 100 ML IV ×2 (04:00→14:00)
[2021-05-24 04:17] LABS: ALB/GLOB Ratio 1.2 RATIO (0.9-2.4); AST(SGOT) 15 U/L (15-37); Alanine Aminotransfer ALT/SGPT 28 U/L (16-61); Albumin, Serum 3.4 g/dL (3.2-5.0); Alkaline Phosphatase 67 U/L (45-117); Anion Gap 9 (5-15); BUN 43 mg/dL (7-18); BUN/Creat Ratio 40.6 RATIO (10-20); Calcium,Total 8.1 mg/dL (8.5-10.1); Chloride 106 mmol/L (98-107); Creatinine, Serum 1.06 mg/dL (0.70-1.30); EST Glomerular Filtration Rate 72 mL/min (>60); Est Glom Filt Rate - Afr Amer 87 mL/min (>60); Estimated Creatinine Clearance 58.66 ml/min; Globulin 2.8 g/dL (2.2-4.2); Glucose 149 mg/dL (74-106); Potassium 4.3 mmol/L (3.5-5.1); Protein, Total 6.2 g/dL (6.4-8.2); Sodium Level 141 mmol/L (136-145)
[2021-05-24 04:39] LABS: Lactic Acid 1.8 mmol/L (0.4-1.9)
[2021-05-24] MEDS: Metoprolol Tartrate 25 MG Tablet 75 MG PO ×2 (04:53→21:59)
--- NOTE | 2021-05-24 05:27 | EX.PCM.CONCC ---
Assessment & Plan Assessment/Plan (1) Epistaxis: PLAN: RECOMMENDATIONS: 1. Continue to monitor H&H daily. 2. Maintain Rhino Rocket in place pending evaluation by ENT. 3. Continue supplemental IV fluids for now. Recheck orthostatic vital signs. 4. Encourage incentive spirometer use and mobilize patient as tolerated. 5. The patient can be transferred out of the medical intensive care unit from my perspective. 6. Given the patient's lack of further ICU or pulmonary needs, will sign off. Please call with any additional questions. IMPRESSIONS: 1. Syncopal event The patient experienced a syncopal event, leading to fall and subsequent hospitalization. He does have a known history of underlying autonomic dysfunction related to his diabetes mellitus. This is likely contributing. Cardiac enzymes are being cycled and echocardiogram will be obtained. Continue fluids for now and obtain repeat orthostatics. The patient remains hemodynamically stable. 2. Epistaxis Likely traumatic in etiology and related to #1. The patient currently has a Rhino Rocket in place. There is no active blood loss at this time. His H&H is stable. Continue to monitor clinically. The patient did receive Kcentra and vitamin K given his use of Eliquis as an outpatient. ENT consultation has been placed. 3. Fluid responsive hypotension Likely related to #1 and 2. However, the patient did respond to fluid resuscitation and administration of blood products. He remains hemodynamically stable at this time. The patient never required vasopressor support. 4. History of partial seizure disorder/hypertension/hyperlipidemia/coronary artery disease/diabetes mellitus Complicates care, management, recovery and prognosis. Continue home medications as indicated. Continue beta-shirley per home regimen. This note was generated with [employer] dictation software. It may contain incorrect words, spelling, and punctuation that were not noted in checking the note before signing. HPI Consult Data Date of Consult: 05/24/21 HPI Narrative Reason for Consultation: Hemorrhagic shock HPI Narrative: The patient is a 76-year-old male, with a history as outlined below, who presented to the emergency department on May 23 with a syncopal event after standing upright from a bent over position. The patient is currently followed by Dr. Rodney in the cardiology clinic due to a history of coronary arteries disease status post angioplasty and stenting of his LAD in 2017. His medical history is also significant for aortic stenosis and peripheral vascular disease. The patient was on systemic anticoagulation with Eliquis at his baseline. On presentation to the emergency department, the patient was noted to be afebrile with borderline hemodynamic status. Initial laboratory evaluation revealed a normal H&H. Chemistry profile revealed a chloride of 108 and a BUN of 39. Lactate was elevated to 3.3. Total bilirubin was increased to 1.3. Initial head CT revealed right maxillary sinusitis, along with intravenous gas noted within the infratemporal fossa on the right, the cavernous sinus and the superior sagittal sinus. No intracranial hemorrhage was noted. CT sinus revealed sinusitis versus hemorrhage and a probable remote fracture of the bony septum. There was no evidence of a basilar skull fracture on CT orbit. CTA chest and neck were also obtained which revealed a small amount of air in the right subclavian and right internal jugular vein. No PE was identified. There was no flow-limiting stenosis or dissection noted. While in the emergency department, the patient became progressively hypotensive. He did receive supplemental IV fluid hydration. The patient did have episodes of hematemesis. Accordingly, the patient was transfused 1 unit of packed red blood cells. GI was subsequently consulted and performed an upper endoscopy. No focal bleeding source was identified. It was felt that the hematemesis was likely the consequence of the nosebleed the patient sustained with swallowed blood. The patient's ED course was also complicated by atrial fibrillation with RVR. Rhino Rocket was placed. The patient received Kcentra and vitamin K. This morning, the patient's hemoglobin was noted to be almost 14 g/dL. The patient remains hemodynamically stable without any need for vasopressor support. Although the patient remains in atrial fibrillation, he is currently rate controlled. He is maintaining appropriate oxygen saturations on room air. ON LICENSE OF [facility] Medical History Acid reflux Anemia Atherosclerosis of coronary artery of [place] heart without angina pectoris Atrial fibrillation BPH (benign prostatic hyperplasia) Chronic diastolic (congestive) heart failure Chronic kidney disease Erectile dysfunction Essential (primary) hypertension History of non-ST elevation myocardial infarction (NSTEMI) (08/26/16) Hyperlipidemia Inguinal hernia of right side without obstruction or gangrene Iron deficiency anemia Longstanding persistent atrial fibrillation Multinodular goiter Nonrheumatic aortic (valve) stenosis Paroxysmal atrial fibrillation Partial seizure disorder Peripheral vascular occlusive disease Pre-syncope Syncope Syncope Type 2 diabetes mellitus Urinary retention Urinary retention due to benign prostatic hyperplasia Ventral incisional hernia without obstruction or gangrene Home Medications atorvastatin 80 mg tablet 80 mg PO QHS 07/21/18 [History Last Taken 05/23/19] cholecalciferol (vitamin D3) 50 mcg (2,000 unit) capsule 2,000 unit PO DAILY 07/21/18 [History Last Taken 05/23/19] lamotrigine 200 mg tablet 200 mg PO BID 07/21/18 [History Last Taken 05/24/19 05:30] lisinopril 5 mg tablet 5 mg PO QHS 07/21/18 [History Last Taken 05/23/19] metformin 500 mg tablet,extended release 24 hr 1,000 mg PO BID tab 07/21/18 [History Last Taken 08/07/20] metoprolol tartrate 75 mg PO BID 05/25/19 [History Last Taken 05/24/19] dapagliflozin 5 mg tablet 5 mg PO DAILY tab 02/29/20 [History Last Taken Unknown] acarbose 50 mg PO TIDCM 08/07/20 [History Last Taken Unknown] aspirin 81 mg PO DAILY 08/07/20 [History Last Taken Unknown] docusate sodium 100 mg PO BID 08/07/20 [History Last Taken Unknown] finasteride 5 mg PO DAILY 08/07/20 [History Last Taken Unknown] insulin degludec 0 unit SQ UD 08/07/20 [History Last Taken Unknown] magnesium oxide 400 mg PO DAILY 08/07/20 [History Last Taken Unknown] nitroglycerin 0.4 mg SUBLINGUAL Q5M PRN 08/07/20 [History Last Taken Unknown] apixaban 2.5 mg tablet 2.5 mg PO BID #180 tab 09/06/20 [Rx Last Taken Unknown] Allergy/AdvReac Type Severity Reaction Status Date / Time carbamazepine [From Tegretol] Allergy Rash Verified 05/23/21 16:58 Family History Mother Cancer Heart disease Father Hypertension Diabetes Son Heart disease Surgical History History of angioplasty of peripheral vessel (06/28/14) History of cardioversion (08/21/16) History of colonoscopy (01/2019) History of coronary artery stent placement (08/26/16) History of inguinal hernia repair 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 Marcelino Fuller MD) household members: spouse Smoking Status: Former smoker quit date: 08/04/69 pack-years: 10 alcohol intake: current alcohol intake frequency: a few times a month substance use type: does not use ROS Constitutional Constitutional: Denies chills, fever(s) or headache(s) Eyes Eyes: Denies blurry vision or change in vision ENT HEENT: Reports dizziness and epistaxis Cardiovascular Cardiovascular: Reports dizziness; Denies chest pain Respiratory/Chest Respiratory/Chest: Denies chest tightness or cough Gastrointestinal Gastrointestinal: Denies abdominal pain, diarrhea, nausea or vomiting Genitourinary Genitourinary: Denies difficulty urinating Musculoskeletal Musculoskeletal: Denies arthralgias, back pain or joint pain Integumentary Integumentary: Denies lesions, rash or skin ulcer Neurologic Neurologic: Denies abnormal gait Psychiatric Psychiatric: Denies anxiety or depression Endocrine Endocrinology: Denies fatigue, polydipsia or polyuria Hematologic/Lymphatic Hematologic/Lymphatic: Denies easy bleeding or easy bruising Physical Exam Const alert and no apparent distress General Appearance: cooperative HEENT normocephalic and head/scalp atraumatic HEENT Narrative: Rhino Rocket currently in place Eyes PERRL, EOMs intact bilaterally and conjunctivae normal Neck supple General: trachea midline Chest inspection of chest normal Resp Auscultation: diminished lung sounds Cardio S1 normal heart sound and S2 normal heart sound Rhythm: abnormal rhythm GI normal to inspection, nondistended, normoactive bowel sounds Extremity no clubbing, cyanosis or edema Skin no rashes or lesions noted Neuro moves all extremities and no focal motor deficits Psych cooperative and affect normal Lab / Micro Data Result Diagrams: 05/24/21 03:41 05/24/21 03:41 Labs: Laboratory Results - last 24 hr 05/23/21 22:54: Hgb 12.5 L, Hct 38.9 L 05/23/21 22:54: Antibody Screen NEGATIVE, Crossmatch See Detail 05/23/21 22:54: Sodium 140, Potassium 4.5, Chloride 108 H, Carbon Dioxide 22.0, Anion Gap 10, BUN 39 H, Creatinine 1.12, Estim Creat Clear Calc 57.59, Est GFR (MDRD) Af Amer 82, Est GFR (MDRD) Non-Af 67, BUN/Creatinine Ratio 34.8 H, Glucose 169 H, Calcium 7.6 L 05/23/21 22:54: Lactic Acid 3.3 H* 05/23/21 22:54: Blood Type A POSITIVE 05/23/21 22:54: Crossmatch See Detail 05/24/21 01:43: Hgb 11.7 L 05/24/21 03:41: WBC 8.0, RBC 4.75, Hgb 13.9, Hct 42.7, MCV 89.9, MCH 29.3, MCHC 32.6, RDW Std Deviation 45.7 H, RDW Coeff of Danis 13.9, Plt Count 212, MPV 9.5, Immature Gran % (Auto) 0.400, Neut % (Auto) 78.0 H, Lymph % (Auto) 15.8 L, [place] % (Auto) 5.2, Eos % (Auto) 0.2, Baso % (Auto) 0.4, Absolute Neuts (auto) 6.3, Absolute Lymphs (auto) 1.27, Nucleated RBC % 0 05/24/21 03:41: Sodium 141, Potassium 4.3, Chloride 106, Carbon Dioxide 26.0, Anion Gap 9, BUN 43 H, Creatinine 1.06, Estim Creat Clear Calc 58.66, Est GFR (MDRD) Af Amer 87, Est GFR (MDRD) Non-Af 72, BUN/Creatinine Ratio 40.6 H, Glucose 149 H, Calcium 8.1 L, Total Bilirubin 1.30 H, AST 15, ALT 28, Alkaline Phosphatase 67, Total Protein 6.2 L, Albumin 3.4, Globulin 2.8, Albumin/Globulin Ratio 1.2 05/24/21 03:45: Lactic Acid 1.[address] 05/23/21 17:36 IMPRESSION: Right maxillary sinusitis. Intravascular gas emboli as above may represent peripheral venous gas and a patent foramen ovale. Clinical correlation required. Consider temporal arteritis. Electronically Signed: Wiliam Bone MD at 18:43 EDT , Service support , Facial/Sinus 05/23/21 18:01 IMPRESSION: Sinusitis versus hemorrhage. Probable remote fracture bony septum. Electronically Signed: Wiliam Bone MD at 18:47 EDT , Service support , CT Orbit Sella Inner 05/23/21 19:51 IMPRESSION: No evidence of basilar skull fracture. Interval increase in subcutaneous emphysema and/or intravascular gas. This may represent extensive increased intravenous emboli but CT of the neck and chest recommended for further characterization regarding the source. Electronically Signed: Wiliam Bone MD at 22:18 EDT , Service support , Chest CTA 05/23/21 22:27 IMPRESSION: 1. Small amount of air in the right subclavian vein and right internal jugular vein which is commonly injection related and typically of no clinical significance. In this setting intracranial cavernous sinus air and superficial soft tissue venous air is also commonly seen. CT does not exclude patent foramen ovale though no overt septal defect is appreciated and no there are no secondary to findings to suggest right to left cardiac shunt. 2. No pulmonary embolism. 3. Small subtle lower lobe small centrilobular groundglass nodular opacities which could represent atelectasis, infection, or alveolar edema in the appropriate setting. 4. Mild bilateral peribronchial thickening as can be seen with bronchitis/bronchiolitis. 5. Small to moderate hiatal hernia. 6. Right thyroid 3.7 cm heterogeneous nodule with internal calcifications, increased in heterogeneity though unchanged in overall size from 08/30/2019. 7. Cholelithiasis. Individualized dose optimization techniques were used for this CT. at 0139 Reported and signed by: Bruno Ordoñez MD Electronically Signed: Bruno Ordoñez MD at 1:38 EDT Tel , Service support , Neck CTA 05/23/21 22:27 IMPRESSION: Small amount of air in the right subclavian vein and right internal jugular vein which is commonly injection related and typically of no clinical significance. In this setting intracranial cavernous sinus air and superficial soft tissue venous air can be seen and has partially resolved compared to prior exams. Scattered atherosclerosis without focal flow-limiting stenosis or dissection. Individualized dose optimization techniques were used for this CT. at 0147 Reported and signed by: Bruno Ordoñez MD Electronically Signed: Bruno Ordoñez MD at 1:45 EDT Tel , Service support , Charges/Coding Visit Charges Inpatient E&M: 14653 Init Hosp L3
[2021-05-24 06:50] LABS: Bedside Glucose 105 mg/dL (70-110)
[2021-05-24 07:12] LABS: Troponin-I HS 26 pg/mL (3.0-78.0)
[2021-05-24] MEDS: Amox/Clavulanate 875 MG Tablet PO ×2 (09:46→22:15)
[2021-05-24] MEDS: Magnesium Chloride 64 MG Delay Rel.Tablet 128 MG PO (09:47)
[2021-05-24] MEDS: Docusate Sodium 100 MG Capsule PO ×2 (09:47→22:14)
[2021-05-24] MEDS: lamoTRIgine 100 MG Tablet 200 MG PO ×2 (09:47→22:16)
[2021-05-24] MEDS: Finasteride 5 MG Tablet PO (09:48)
[2021-05-24] MEDS: Famotidine 20 MG Tablet PO ×2 (09:48→22:14)
--- NOTE | 2021-05-24 10:16 | PN.HOSP_ITS ---
Subjective Subjective Patient seen and examined. HE was admitted after he had a mechanical fall with resulting epistaxis. he subsequently had hematemesis and gastroenterology was consulted as it wasnt clear whether this was blood from the posterior nasopharynx which had been swalloed, or was actual upper GI bleed. Emergent EGD was negative for any evidence of bleeding. He subsequently had right nasal packing and admitted to the ICU. He was transfused 1 unit of PRBC. Patient seen and examined. He was lying comfortably in bed and had no complaints this morning. He denied any shortness of breath, chest pain, palpitations or dizziness, nausea or vomiting. Review of systems otherwise negative. He is tachycardic this morning with heart rate of 106. Objective Data Objective Data Vital Signs: Vital Signs Temp Pulse Resp BP Pulse Ox 99.4 F H 94 16 144/87 H 98 05/24/21 08:00 05/24/21 09:31 05/24/21 08:00 05/24/21 09:31 05/24/21 08:00 Oxygen Flow Rate (L/min) [2] 100 Oxygen Flow Rate (L/min) 2 Oxygen Delivery Method [8] Nasal Cannula Oxygen Delivery Method [7] Nasal Cannula Oxygen Delivery Method [6] Nasal Cannula Oxygen Delivery Method [5] Nasal Cannula Oxygen Delivery Method [4] Nasal Cannula Oxygen Delivery Method [2] Nasal Cannula Oxygen Delivery Method Nasal Cannula Weight: 159 lb 3.203 oz Body Mass Index (BMI) 22.1 Intake & Output: Intake and Output for Last 24 Hours 05/22/21 05/23/21 05/24/21 23:59 23:59 23:59 Intake Total 1500 / 1500 1554 / 1554 Output Total 300 / 300 Balance 1500 / 1500 1254 / 1254 Lab / Micro Data Result Diagrams: 05/24/21 03:41 05/24/21 03:41 Labs: Laboratory Results - last 24 hr 05/23/21 22:54: Hgb 12.5 L, Hct 38.9 L 05/23/21 22:54: Blood Type TNP, Antibody Screen NEGATIVE, Crossmatch See Detail 05/23/21 22:54: Sodium 140, Potassium 4.5, Chloride 108 H, Carbon Dioxide 22.0, Anion Gap 10, BUN 39 H, Creatinine 1.12, Estim Creat Clear Calc 57.59, Est GFR (MDRD) Af Amer 82, Est GFR (MDRD) Non-Af 67, BUN/Creatinine Ratio 34.8 H, Glucose 169 H, Calcium 7.6 L 05/23/21 22:54: Lactic Acid 3.3 H* 05/23/21 22:54: Blood Type A POSITIVE 05/23/21 22:54: Crossmatch See Detail 05/24/21 01:43: Hgb 11.7 L 05/24/21 03:41: WBC 8.0, RBC 4.75, Hgb 13.9, Hct 42.7, MCV 89.9, MCH 29.3, MCHC 32.6, RDW Std Deviation 45.7 H, RDW Coeff of Danis 13.9, Plt Count 212, MPV 9.5, Immature Gran % (Auto) 0.400, Neut % (Auto) 78.0 H, Lymph % (Auto) 15.8 L, [place] % (Auto) 5.2, Eos % (Auto) 0.2, Baso % (Auto) 0.4, Absolute Neuts (auto) 6.3, Absolute Lymphs (auto) 1.27, Nucleated RBC % 0 05/24/21 03:41: Sodium 141, Potassium 4.3, Chloride 106, Carbon Dioxide 26.0, Anion Gap 9, BUN 43 H, Creatinine 1.06, Estim Creat Clear Calc 58.66, Est GFR (MDRD) Af Amer 87, Est GFR (MDRD) Non-Af 72, BUN/Creatinine Ratio 40.6 H, Glucose 149 H, Calcium 8.1 L, Total Bilirubin 1.30 H, AST 15, ALT 28, Alkaline Phosphatase 67, Total Protein 6.2 L, Albumin 3.4, Globulin 2.8, Albumin/Globulin Ratio 1.2 05/24/21 03:41: Troponin I High Sens 26 05/24/21 03:45: Lactic Acid 1.8 05/24/21 06:32: POC Glucose 105 Radiography Diagnostic Testing: Radiology Impression Brain CT 05/23/21 17:36 IMPRESSION: Right maxillary sinusitis. Intravascular gas emboli as above may represent peripheral venous gas and a patent foramen ovale. Clinical correlation required. Consider temporal arteritis. Electronically Signed: Wiliam Bone MD at 18:43 EDT , Service support , Facial/Sinus 05/23/21 18:01 IMPRESSION: Sinusitis versus hemorrhage. Probable remote fracture bony septum. Electronically Signed: Wiliam Bone MD at 18:47 EDT , Service support , CT Orbit Sella Inner 05/23/21 19:51 IMPRESSION: No evidence of basilar skull fracture. Interval increase in subcutaneous emphysema and/or intravascular gas. This may represent extensive increased intravenous emboli but CT of the neck and chest recommended for further characterization regarding the source. Electronically Signed: Wiliam Bone MD at 22:18 EDT , Service support , Chest CTA 05/23/21 22:27 IMPRESSION: 1. Small amount of air in the right subclavian vein and right internal jugular vein which is commonly injection related and typically of no clinical significance. In this setting intracranial cavernous sinus air and superficial soft tissue venous air is also commonly seen. CT does not exclude patent foramen ovale though no overt septal defect is appreciated and no there are no secondary to findings to suggest right to left cardiac shunt. 2. No pulmonary embolism. 3. Small subtle lower lobe small centrilobular groundglass nodular opacities which could represent atelectasis, infection, or alveolar edema in the appropriate setting. 4. Mild bilateral peribronchial thickening as can be seen with bronchitis/bronchiolitis. 5. Small to moderate hiatal hernia. 6. Right thyroid 3.7 cm heterogeneous nodule with internal calcifications, increased in heterogeneity though unchanged in overall size from 08/30/2019. 7. Cholelithiasis. Individualized dose optimization techniques were used for this CT. at 0139 Reported and signed by: Bruno Ordoñez MD Electronically Signed: Bruno Ordoñez MD at 1:38 EDT Tel , Service support , Neck CTA 05/23/21 22:27 IMPRESSION: Small amount of air in the right subclavian vein and right internal jugular vein which is commonly injection related and typically of no clinical significance. In this setting intracranial cavernous sinus air and superficial soft tissue venous air can be seen and has partially resolved compared to prior exams. Scattered atherosclerosis without focal flow-limiting stenosis or dissection. Individualized dose optimization techniques were used for this CT. at 0147 Reported and signed by: Bruno Ordoñez MD Electronically Signed: Bruno Ordoñez MD at 1:45 EDT Tel , Service support , Physical Exam Const alert, oriented x3 and no apparent distress Exam Limitations: no limitations HEENT head/scalp atraumatic and moist oral mucous membranes HEENT Narrative: Nasal packing in right nostril Head and Scalp: normocephalic Eyes PERRL and EOMs intact bilaterally Neck no lymphadenopathy Resp normal respiratory effort, no retractions, no use of accessory muscles and clear to auscultation bilaterally Cardio regular rhythm, S1 normal heart sound, S2 normal heart sound and no murmurs Cardio Narrative: tachycardic Extremity normal to inspection, full ROM and no clubbing, cyanosis or edema Peripheral Pulses: Yes pulses 2+ throughout Skin no rashes or lesions noted Neuro oriented x3, CN's II-XII intact bilaterally and moves all extremities Sensorium / Orientation: awake and alert Psych affect normal Assessment & Plan Assessment/Plan (1) Epistaxis: (2) Hemorrhagic shock: (3) Hematemesis: PLAN: #Hemorrhagic shock due to epistaxis * BP is relatively more stable today. * has a nasal rocket in place. * Hb is 13. Has been transfused with one unit of PRBC * critical care on board. * BP is up to 144/87 now. REsume metoprolol * #Epistaxis, likely traumatic. * started after he had mechanical fall and hit his face * no bruises on his face * nasal pack in place in right nostril * blood thinners on hold * on PO augmentiin. * continue gentle hydration with IVF. * received K-centra. * #Syncope * patient fell as a result of syncope * does have dysautonomia. 2D echo pending * fall precautions. PT.OT on board * metoprolol on hold * monitor orthostatics * continue gentle hydration with IVF * #paroxysmal afib * now rate controlled * was in RVR on admission, and required cardizem bolus. * metoprolol ion hold. troponins x 3 were negative * HFpEF: not in exacerbation. aspirin and and eliquis on hold due to epistaxis. metoprolol and lisinopril on hold due to hypotension. #CAD s/p stents: aspirin on hold. on statin. metoprolol and eliquis on hold as aove. #Hypertension: BP meds on hold due to hypotension #BPH: on finasteride #History of seizure disorder: on lamotrigine #TYpe 2 diabetes mellitus: on ISS. Accuchecks ACHS. dapagliflozin and metformin on hold. DVT prophylaxis: SCDs. eliquis on hold. Charges/Coding Visit Charges Inpatient E&M: 45953 Subs Hosp L3
--- NOTE | 2021-05-24 10:25 | CASEMGMT ---
RN CM Face to Face with patient for initial transition planning/care coordination assessment. RN CM introduced self and role at [facility]. Patient lying in bed, alert and oriented. Patient willing to participate in assessment and is able to answer all questions appropriately. Care providers, pharmacy, and demographics verified. Patient wishes to discharge home, denies need for home health at this time. Patient states he has no further needs or concerns at this time. CM to follow for discharge planning needs that may arise. PCP: Luiz Specialists: Rashaun wildlife conservationist Preferred Pharmacy: [facility] Insurance: [facility], [employer] Prescription Benefit: yes Living Will/HPOA: yes, Ermelinda SPENCER LNOK: , son Living Arrangements: Patient lives with in a condo with no steps to enter the home. Patient states he is independent at home prior to hospitalization Transportation: self, son DME/HHC: Patient states he has shower chair, raised toilet, cane, walker, and grab bars at home. Patient denies previous HHC. Disposition Plan: Patient to discharge home with family support and follow-up plans in place. Angela MORA, RN, CM
[2021-05-24 10:37] LABS: Troponin-I HS 137 pg/mL (3.0-78.0)
[2021-05-24 10:58] LABS: Bedside Glucose 137 mg/dL (70-110)
[2021-05-24] MEDS: Acetaminophen 325 MG Tablet 650 MG PO ×2 (12:29→22:14)
--- NOTE | 2021-05-24 12:52 | PCM.CONS.GEN ---
Assessment & Plan Assessment/Plan (1) Epistaxis: PLAN: He presents with severe nasal hemorrhage after a fall secondary to anticoagulation therapy. This is been controlled with nasal packing but this has become painful. This was removed at the bedside where he does have some trauma to the nasal spine with ecchymosis as well as mucosal abrasions of the nasal septum but no beverly active bleeding or posterior pharyngeal blood clots. Removal of the pack resulting significant improvement of his pain complaint. I have discussed with him that as long as he continues the anticoagulation therapy he continues to be at risk from his wounds and great care to avoid trauma cessation of the nasal septum is encouraged. He is agreeable to avoid manipulation of the nose. Please notify if any further severe bleeding is encountered. (2) Hemorrhagic shock: HPI Consult Data Date of Consult: 05/24/21 HPI Narrative HPI Narrative: AGUSTO CASTILLO, is a 76 M who presents to the emergency room after a fall with large amount of swallowed blood. He is on anticoagulation therapy and reports that his nasal bleeding started after his fall. He had underwent EGD to evaluate for possible GI bleeding which per report showed no identifiable GI source and this presumed to be secondary to epistaxis. He had had a nasal packing placed in the right nostril in the emergency department which resulted in resolution of his bleeding complaint but this has become abruptly painful in the last hour or so after having been well-tolerated. He describes a burning sensation in the back of the throat as well as a feeling of a lump around his uvula. He denies any problems with breathing or change in voice. He denies any syncope or lightheadedness. He denies any significant facial or dental pain or malocclusion. He denies any diplopia or eye pain. [facility] Medical History Acid reflux Anemia Atherosclerosis of coronary artery of [place] heart without angina pectoris Atrial fibrillation BPH (benign prostatic hyperplasia) Chronic diastolic (congestive) heart failure Chronic kidney disease Erectile dysfunction Essential (primary) hypertension History of non-ST elevation myocardial infarction (NSTEMI) (08/26/16) Hyperlipidemia Inguinal hernia of right side without obstruction or gangrene Iron deficiency anemia Longstanding persistent atrial fibrillation Multinodular goiter Nonrheumatic aortic (valve) stenosis Paroxysmal atrial fibrillation Partial seizure disorder Peripheral vascular occlusive disease Pre-syncope Syncope Syncope Type 2 diabetes mellitus Urinary retention Urinary retention due to benign prostatic hyperplasia Ventral incisional hernia without obstruction or gangrene Home Medications atorvastatin 80 mg tablet 80 mg PO QHS 07/21/18 [History Last Taken 05/23/19] cholecalciferol (vitamin D3) 50 mcg (2,000 unit) capsule 2,000 unit PO DAILY 07/21/18 [History Last Taken 05/23/19] lamotrigine 200 mg tablet 200 mg PO BID 07/21/18 [History Last Taken 05/24/19 05:30] lisinopril 5 mg tablet 5 mg PO QHS 07/21/18 [History Last Taken 05/23/19] metformin 500 mg tablet,extended release 24 hr 1,000 mg PO BID tab 07/21/18 [History Last Taken 08/07/20] metoprolol tartrate 75 mg PO BID 05/25/19 [History Last Taken 05/24/19] dapagliflozin 5 mg tablet 5 mg PO DAILY tab 02/29/20 [History Last Taken Unknown] acarbose 50 mg PO TIDCM 08/07/20 [History Last Taken Unknown] aspirin 81 mg PO DAILY 08/07/20 [History Last Taken Unknown] docusate sodium 100 mg PO BID 08/07/20 [History Last Taken Unknown] finasteride 5 mg PO DAILY 08/07/20 [History Last Taken Unknown] insulin degludec 0 unit SQ UD 08/07/20 [History Last Taken Unknown] magnesium oxide 400 mg PO DAILY 08/07/20 [History Last Taken Unknown] nitroglycerin 0.4 mg SUBLINGUAL Q5M PRN 08/07/20 [History Last Taken Unknown] apixaban 2.5 mg tablet 2.5 mg PO BID #180 tab 09/06/20 [Rx Last Taken Unknown] Allergy/AdvReac Type Severity Reaction Status Date / Time carbamazepine [From Tegretol] Allergy Rash Verified 05/23/21 16:58 Family History Mother Cancer Heart disease Father Hypertension Diabetes Son Heart disease Surgical History History of angioplasty of peripheral vessel (06/28/14) History of cardioversion (08/21/16) History of colonoscopy (01/2019) History of coronary artery stent placement (08/26/16) History of inguinal hernia repair 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 Marcelino Fuller MD) household members: spouse Smoking Status: Former smoker quit date: 08/04/69 pack-years: 10 alcohol intake: current alcohol intake frequency: a few times a month substance use type: does not use ROS Constitutional Constitutional: Reports systems reviewed and no addt'l complaints, except as documented Eyes Eyes: Reports systems reviewed and no addt'l complaints, except as documented ENT HEENT: Reports systems reviewed and no addt'l complaints, except as documented and epistaxis Cardiovascular Cardiovascular: Reports systems reviewed and no addt'l complaints, except as documented Respiratory/Chest Respiratory/Chest: Reports systems reviewed and no addt'l complaints, except as documented Gastrointestinal Gastrointestinal: Reports systems reviewed and no addt'l complaints, except as documented Genitourinary Genitourinary: Reports systems reviewed and no addt'l complaints, except as documented Musculoskeletal Musculoskeletal: Reports systems reviewed and no addt'l complaints, except as documented Integumentary Integumentary: Reports systems reviewed and no addt'l complaints, except as documented Neurologic Neurologic: Reports systems reviewed and no addt'l complaints, except as documented Psychiatric Psychiatric: Reports systems reviewed and no addt'l complaints, except as documented Endocrine Endocrinology: Reports systems reviewed and no addt'l complaints, except as documented Allergic/Immunologic Allergic/Immunologic: Reports systems reviewed and no addt'l complaints, except as documented Physical Exam Const alert and oriented x3 General Appearance: cooperative and comfortable Orientation / Consciousness: oriented to person HEENT normocephalic and external nose normal HEENT Narrative: Rhino Rocket in place in the right nostril with minimal bloody staining. There is edema with evolving ecchymosis of the upper lip around the nasal spine area. Head and Scalp: normal to inspection and normocephalic Face and Sinus: normal facial exam Nose: septum abnormal other (Upon removal of nasal pack there is noted to be excoriation but no active bleeding of the right anterior and mid nasal septum) External Ear: external ears normal Mouth: oral and palatal mucosa normal Throat: posterior oropharynx normal Eyes PERRL and EOMs intact bilaterally General Eye: normal appearance of both eyes Neck full ROM and no lymphadenopathy Lymph Lymphatic: no lymphadenopathy noted Chest inspection of chest normal Resp normal respiratory effort and normal air movement Skin no rashes or lesions noted Neuro oriented x3 Lab / Micro Data Result Diagrams: 05/24/21 03:41 05/24/21 03:41 Labs: Laboratory Results - last 24 hr 05/23/21 22:54: Hgb 12.5 L, Hct 38.9 L 05/23/21 22:54: Blood Type TNP, Antibody Screen NEGATIVE, Crossmatch See Detail 05/23/21 22:54: Sodium 140, Potassium 4.5, Chloride 108 H, Carbon Dioxide 22.0, Anion Gap 10, BUN 39 H, Creatinine 1.12, Estim Creat Clear Calc 57.59, Est GFR (MDRD) Af Amer 82, Est GFR (MDRD) Non-Af 67, BUN/Creatinine Ratio 34.8 H, Glucose 169 H, Calcium 7.6 L 05/23/21 22:54: Lactic Acid 3.3 H* 05/23/21 22:54: Blood Type A POSITIVE 05/23/21 22:54: Crossmatch See Detail 05/24/21 01:43: Hgb 11.7 L 05/24/21 03:41: WBC 8.0, RBC 4.75, Hgb 13.9, Hct 42.7, MCV 89.9, MCH 29.3, MCHC 32.6, RDW Std Deviation 45.7 H, RDW Coeff of Danis 13.9, Plt Count 212, MPV 9.5, Immature Gran % (Auto) 0.400, Neut % (Auto) 78.0 H, Lymph % (Auto) 15.8 L, [place] % (Auto) 5.2, Eos % (Auto) 0.2, Baso % (Auto) 0.4, Absolute Neuts (auto) 6.3, Absolute Lymphs (auto) 1.27, Nucleated RBC % 0 05/24/21 03:41: Sodium 141, Potassium 4.3, Chloride 106, Carbon Dioxide 26.0, Anion Gap 9, BUN 43 H, Creatinine 1.06, Estim Creat Clear Calc 58.66, Est GFR (MDRD) Af Amer 87, Est GFR (MDRD) Non-Af 72, BUN/Creatinine Ratio 40.6 H, Glucose 149 H, Calcium 8.1 L, Total Bilirubin 1.30 H, AST 15, ALT 28, Alkaline Phosphatase 67, Total Protein 6.2 L, Albumin 3.4, Globulin 2.8, Albumin/Globulin Ratio 1.2 05/24/21 03:41: Troponin I High Sens 26 05/24/21 03:45: Lactic Acid 1.8 05/24/21 06:32: POC Glucose 105 05/24/21 09:00: Troponin I High Sens 137 H* 05/24/21 10:31: POC Glucose 137 H Radiology Impression Brain CT 05/23/21 17:36 IMPRESSION: Right maxillary sinusitis. Intravascular gas emboli as above may represent peripheral venous gas and a patent foramen ovale. Clinical correlation required. Consider temporal arteritis. Electronically Signed: Wiliam Bone MD at 18:43 EDT , Service support , Facial/Sinus 05/23/21 18:01 IMPRESSION: Sinusitis versus hemorrhage. Probable remote fracture bony septum. Electronically Signed: Wiliam Bone MD at 18:47 EDT , Service support , CT Orbit Sella Inner 05/23/21 19:51 IMPRESSION: No evidence of basilar skull fracture. Interval increase in subcutaneous emphysema and/or intravascular gas. This may represent extensive increased intravenous emboli but CT of the neck and chest recommended for further characterization regarding the source. Electronically Signed: Wiliam Bone MD at 22:18 EDT , Service support , Chest CTA 05/23/21 22:27 IMPRESSION: 1. Small amount of air in the right subclavian vein and right internal jugular vein which is commonly injection related and typically of no clinical significance. In this setting intracranial cavernous sinus air and superficial soft tissue venous air is also commonly seen. CT does not exclude patent foramen ovale though no overt septal defect is appreciated and no there are no secondary to findings to suggest right to left cardiac shunt. 2. No pulmonary embolism. 3. Small subtle lower lobe small centrilobular groundglass nodular opacities which could represent atelectasis, infection, or alveolar edema in the appropriate setting. 4. Mild bilateral peribronchial thickening as can be seen with bronchitis/bronchiolitis. 5. Small to moderate hiatal hernia. 6. Right thyroid 3.7 cm heterogeneous nodule with internal calcifications, increased in heterogeneity though unchanged in overall size from 08/30/2019. 7. Cholelithiasis. Individualized dose optimization techniques were used for this CT. at 0139 Reported and signed by: Bruno Ordoñez MD Electronically Signed: Bruno Ordoñez MD at 1:38 EDT Tel , Service support , Neck CTA 05/23/21 22:27 IMPRESSION: Small amount of air in the right subclavian vein and right internal jugular vein which is commonly injection related and typically of no clinical significance. In this setting intracranial cavernous sinus air and superficial soft tissue venous air can be seen and has partially resolved compared to prior exams. Scattered atherosclerosis without focal flow-limiting stenosis or dissection. Individualized dose optimization techniques were used for this CT. at 0147 Reported and signed by: Bruno Ordoñez MD Electronically Signed: Bruno Ordoñez MD at 1:45 EDT Tel , Service support , Echocardiogram 05/24/21 03:55 Interpretation Summary The estimated ejection fraction is 60 %. Unable to assess diastolic dysfunction. The left atrium is moderately enlarged. Moderate diffuse aortic valve calcification. Mild aortic stenosis. Ordering Physician: Catherine Macias Referring Physician: Jerry Dee Performed By: Dianelys Plasencia RDCS
[2021-05-24 13:57] LABS: Troponin-I HS 137 pg/mL (3.0-78.0)
[2021-05-24] MEDS: Acarbose 50 MG Tablet PO ×2 (14:35→17:01)
[2021-05-24 17:10] LABS: Bedside Glucose 159 mg/dL (70-110)
[2021-05-24] MEDS: Atorvastatin Calcium 80 MG Tablet PO (22:14)
[2021-05-24 22:40] LABS: Bedside Glucose 193 mg/dL (70-110)
[2021-05-24] MEDS: Insulin Lispro 100 UNIT/ML INSULN.PEN SC (23:09)
[2021-05-25] VITALS (9 sets, daily range): BP systolic 119–176; BP diastolic 63–107; PULSE 88–108; RESP 16–17; TEMP 36.5–37.1; O2SAT 98–100
[2021-05-25] MEDS: 0.9% Normal Saline 1,000 ML 100 ML IV (04:51)
[2021-05-25 06:36] LABS: Bedside Glucose 147 mg/dL (70-110)
[2021-05-25 08:53] LABS: Anion Gap 8 (5-15); BUN 17 mg/dL (7-18); BUN/Creat Ratio 22.9 RATIO (10-20); Calcium,Total 8.2 mg/dL (8.5-10.1); Chloride 109 mmol/L (98-107); Creatinine, Serum 0.74 mg/dL (0.70-1.30); EST Glomerular Filtration Rate 109 mL/min (>60); Est Glom Filt Rate - Afr Amer 131 mL/min (>60); Estimated Creatinine Clearance 62.18 ml/min; Glucose 138 mg/dL (74-106); Potassium 3.9 mmol/L (3.5-5.1); Sodium Level 137 mmol/L (136-145)
[2021-05-25] MEDS: Magnesium Chloride 64 MG Delay Rel.Tablet 128 MG PO (09:25)
[2021-05-25] MEDS: Metoprolol Tartrate 25 MG Tablet 75 MG PO (09:25)
[2021-05-25] MEDS: Docusate Sodium 100 MG Capsule PO (09:25)
[2021-05-25] MEDS: Famotidine 20 MG Tablet PO (09:25)
--- NOTE | 2021-05-25 10:14 | OP.EGD_ITS ---
Patient Name: Sunday Warner Procedure Date: 05/24/2021 1:04 AM Date of : 1945 Age: 76 Procedure: Upper GI endoscopy Indications: Acute post hemorrhagic anemia Providers: Abdon Flor DO Medicines: See the Anesthesia note for documentation of the administered medications Patient Profile: This is a 76 year old male. Refer to note in patient chart for documentation of history and physical. Patient has symptoms of acute abdominal distention and acute epigastric abdominal pain. The symptoms first began 01,. Complications: No immediate complications. Procedure: Pre-Anesthesia Assessment: - Prior to the procedure, a History and Physical was performed, and patient medications and allergies were reviewed. The patient is competent. The risks and benefits of the procedure and the sedation options and risks were discussed with the patient. All questions were answered and informed consent was obtained. Patient identification and proposed procedure were verified by the physician in the pre-procedure area. Mental Status Examination: alert and oriented. Airway Examination: normal oropharyngeal airway and neck mobility. Respiratory Examination: clear to auscultation. CV Examination: normal. Prophylactic Antibiotics: The patient does not require prophylactic antibiotics. Prior Anticoagulants: The patient has taken no previous anticoagulant or antiplatelet agents. ASA Grade Assessment: II - A patient with mild systemic disease. After reviewing the risks and benefits, the patient was deemed in satisfactory condition to undergo the procedure. The anesthesia plan was to use moderate sedation / analgesia (conscious sedation). Immediately prior to administration of medications, the patient was re-assessed for adequacy to receive sedatives. The heart rate, respiratory rate, oxygen saturations, blood pressure, adequacy of pulmonary ventilation, and response to care were monitored throughout the procedure. The physical status of the patient was re-assessed after the procedure. After obtaining informed consent, the endoscope was passed under direct vision. Throughout the procedure, the patient's blood pressure, pulse, and oxygen saturations were monitored continuously. The Endoscope was introduced through the mouth, and advanced to the second part of duodenum. The upper GI endoscopy was accomplished without difficulty. The patient tolerated the procedure well. Moderate Sedation: Moderate (conscious) sedation was administered by the endoscopy nurse and supervised by the endoscopist. The patient's oxygen saturation, heart rate, blood pressure and response to care were monitored. Total physician intraservice time was 15 minutes. Scope In: 1:07:40 AM Scope Out: 1:19:17 AM Total Procedure Duration Time 0 hours 11 minutes 37 seconds Findings: The examined esophagus was normal. Mild inflammation characterized by congestion (edema) was found in the stomach. The first portion of the duodenum was normal. Impression: - Normal esophagus. - Gastritis. - Normal first portion of the duodenum. - No specimens collected. Recommendation: - Admit the patient to [facility] for ongoing care. - NPO. - Continue present medications. Procedure Code(s): --- Professional --- 78267, Esophagogastroduodenoscopy, flexible, transoral; diagnostic, including collection of specimen(s) by brushing or washing, when performed (separate procedure) G0500, Moderate sedation services provided by the same physician or other qualified health home care liaison performing a gastrointestinal endoscopic service that sedation supports, requiring the presence of an independent trained observer to assist in the monitoring of the patient's level of consciousness and physiological status; initial 15 minutes of intra-service time; patient age 5 years or older (additional time may be reported with 06464, as appropriate) CPT copyright 2017 [employer]. All rights reserved. The codes documented in this report are preliminary and upon building contractor review may be revised to meet current compliance requirements. Abdon Flor DO 05/25/2021 10:14:06 AM This report has been signed electronically. Number of Addenda: 1 Note Initiated On: 05/24/2021 1:04 AM Addendum Number: 1 Addendum Date: 04/04/2022 4:39:09 PM MAC was used instead of moderate sedation for this patient. Abdon Flor DO 04/04/2022 4:39:14 PM This report has been signed electronically.
--- NOTE | 2021-05-25 10:15 | OP.CCLET_ITS ---
04/04/2022 Jerry Dee [address] [place] [address] Re : Upper GI endoscopy procedure for Sunday Warner Dear Dr. Dee This procedure was performed on May. My impressions and recommendations are as follows: Impressions : - Normal esophagus. - Gastritis. - Normal first portion of the duodenum. - No specimens collected. Recommendations : - Admit the patient to [facility] for ongoing care. - NPO. - Continue present medications. My findings are described in the full procedure note, which is enclosed. If I can be of further assistance, please feel free to contact me at . Sincerely, Abdon Flor, 05/25/2021 10:14:06 AM This report has been signed electronically.
[2021-05-25] MEDS: Acarbose 50 MG Tablet PO (11:01)
[2021-05-25] MEDS: lamoTRIgine 100 MG Tablet 200 MG PO (11:01)
[2021-05-25] MEDS: Amox/Clavulanate 875 MG Tablet PO (11:01)
[2021-05-25] MEDS: Insulin Lispro 100 UNIT/ML INSULN.PEN SC (11:02)
[2021-05-25] MEDS: Finasteride 5 MG Tablet PO (11:07)
--- NOTE | 2021-05-25 11:19 | PCM.DC.SUM ---
Providers Date of Admission: 05/24/21 Primary Care Physician: Dr. Jerry Dee MD Consultations 05/24/21 01:30 Consult: ENT Routine Consulting Provider: Wong Meyer Reason for Consult: Epistaxis, hemorrhagic shock EMERGENT Consult: Yes Notified: Yes Date Notified: 05/24/21 Time Notified: 01:30 Method of Notification: Verbal Method of Consult:: In-Person Comments:: Dr. Meyer notified by phone at [phone] Consult: Gastroenterology Routine Consulting Provider: [facility] Reason for Consult: Hematemesis EMERGENT Consult: Yes Notified: Yes Date Notified: 05/24/21 Time Notified: 00:16 Method of Notification: Verbal Consult: Applications Administrator / Pulmonary Medicine Routine Consulting Provider: Pulmonary Medicine [facility] Reason for Consult: Hemorrhagic shock EMERGENT Consult: Yes Notified: Yes Date Notified: 05/24/21 Time Notified: 01:25 Method of Notification: Verbal 05/24/21 03:55 Consult: ENT Routine Consulting Provider: Wong Meyer Reason for Consult: Traumatic epistaxis, hemorrhagic shock EMERGENT Consult: Yes Notified: Yes Date Notified: 05/24/21 Time Notified: 03:02 Method of Notification: Called per ED. Consult: Gastroenterology Routine Consulting Provider: [facility] Reason for Consult: Hemorrhagic shock, Traumatic epistaxis, scoped in ED for GI bleed concern EMERGENT Consult: Yes Notified: Yes Date Notified: 05/24/21 Time Notified: 03:00 Method of Notification: Called per ED. Consult: Applications Administrator / Pulmonary Medicine Routine Consulting Provider: Antonio Malloy Reason for Consult: Hemorrhagic shock, Traumatic Epistaxis, Syncope EMERGENT Consult: No Notified: Yes Date Notified: 05/24/21 Time Notified: 02:59 Method of Notification: called per ED. Reason For Visit: HEMORRHAGIC SHOCK, TRAUMATIC EPISTAXIS WITH FALL Diagnosis Discharge Diagnosis (1) Epistaxis: Status: Acute Code(s): R04.0 - Epistaxis (2) Hemorrhagic shock: Status: Acute Code(s): R57.8 - Other shock Medications at Discharge Home Medications atorvastatin 80 mg tablet 80 mg PO QHS 07/21/18 cholecalciferol (vitamin D3) 50 mcg (2,000 unit) capsule 2,000 unit PO DAILY 07/21/18 lamotrigine 200 mg tablet 200 mg PO BID 07/21/18 lisinopril 5 mg tablet 5 mg PO QHS 07/21/18 metformin 500 mg tablet,extended release 24 hr 1,000 mg PO BID tab 07/21/18 metoprolol tartrate 75 mg PO BID 05/25/19 dapagliflozin 5 mg tablet 5 mg PO DAILY tab 02/29/20 acarbose 50 mg PO TIDCM 08/07/20 aspirin 81 mg PO DAILY 08/07/20 docusate sodium 100 mg PO BID 08/07/20 finasteride 5 mg PO DAILY 08/07/20 insulin degludec 0 unit SQ UD 08/07/20 magnesium oxide 400 mg PO DAILY 08/07/20 nitroglycerin 0.4 mg SUBLINGUAL Q5M PRN 08/07/20 amoxicillin-pot clavulanate [Augmentin] 1 tab PO BID #10 tab 05/25/21 Hospital Course Operations None Procedures EGD Summary of Care Provided Minutes Spent on Discharge: 45 Hospital Course: Patient is a 76-year-old male with an extensive past medical history as outlined was admitted through the ED on 05/23/2021 with a complaint of syncope while standing upright from a bent over position. He fell and hit his head and was noted to have epistasis. Initially his hemoglobin was normal and lactic acid was elevated at 3.3. CT of the brain showed right maxillary sinusitis as well as with intravenous gas noted within the infratemporal fossa on the right and cavernous sinus as well as superior sagittal sinus. No intracranial hemorrhage is noted. CT of the sinus showed sinusitis versus hemorrhage and probable remote fracture of the bony septum. CTA of the chest and neck revealed a small amount of air in the right subclavian and right internal jugular vein. There was no evidence of PE. Patient subsequently became hypotensive in the ED and was hydrated with fluids. He also had episodes of hematemesis and was transfused with 1 unit of packed red blood cells. GI was consulted and an upper endoscopy was negative for any evidence of focal bleeding and it was felt that the hematemesis was likely due to swallowed blood from his epistasis. Patient received Kcentra and vitamin K as well. Hospital course was complicated by A. fib with RVR with subsequently resolved. He had a right nasal packing done he was admitted initially to the ICU to be managed for hemorrhagic shock due to epistasis. His hemoglobin subsequently improved and he was transferred out of the ICU. He was put on Augmentin for prophylaxis against toxic shock syndrome. Initial troponin was negative but subsequently trended up to 137. He denied any chest pain. Elevated troponin was thought to be due to demand ischemia from his hemorrhagic shock. 2D echo done showed EF of 60% and unable to assess diastolic dysfunction and left atrium being moderately enlarged. ENT was also consulted and he subsequently had a nasal packing removed. Patient remained stable and was discharged home on 05/25/2021. His anticoagulation was discontinued due to his mechanical fall and resultant severe bleeding. He was counseled that he was at increased risk of stroke because of anticoagulation due to his A. fib. He is to follow-up with his primary care doctor and cardiology for decision to be made about whether he should resume anticoagulation or not. Patient seen and examined prior to discharge. He had no complaints and felt well. Review of systems otherwise negative. Labs and vitals reviewed. Home medication reviewed and reconciled. Physical Exam Const alert, oriented x3 and no apparent distress General Appearance: cooperative and comfortable Exam Limitations: no limitations HEENT head/scalp atraumatic and moist oral mucous membranes HEENT Narrative: right nasal packing removed Eyes PERRL and EOMs intact bilaterally Neck no lymphadenopathy Resp normal respiratory effort, no retractions, no use of accessory muscles and clear to auscultation bilaterally Cardio regular rate, regular rhythm, S1 normal heart sound, S2 normal heart sound and no murmurs GI normal to inspection, nondistended, normoactive bowel sounds, soft to palpation and non-tender Extremity normal to inspection, full ROM and no clubbing, cyanosis or edema Skin no rashes or lesions noted Neuro oriented x3, CN's II-XII intact bilaterally and moves all extremities Sensorium / Orientation: awake and alert Psych affect normal Weight / BMI Weight Weight: 159 lb 3.203 oz Body Mass Index (BMI) 22.1 ABG / Lab / Microbiology Data Result Diagrams: 05/24/21 03:41 05/25/21 08:15 Laboratory: Laboratory Results - last 24 hr 05/24/21 13:10: Troponin I High Sens 137 H* 05/24/21 17:00: POC Glucose 159 H 05/24/21 22:13: POC Glucose 193 H 05/25/21 06:24: POC Glucose 147 H 05/25/21 08:15: Sodium 137, Potassium 3.9, Chloride 109 H, Carbon Dioxide 20.0 L, Anion Gap 8, BUN 17, Creatinine 0.74, Estim Creat Clear Calc 62.18, Est GFR (MDRD) Af Amer 131, Est GFR (MDRD) Non-Af 109, BUN/Creatinine Ratio 22.9 H, Glucose 138 H, Calcium 8.2 L Radiography Diagnostic Testing: Radiology Impression Echocardiogram 05/24/21 03:55 Interpretation Summary The estimated ejection fraction is 60 %. Unable to assess diastolic dysfunction. The left atrium is moderately enlarged. Moderate diffuse aortic valve calcification. Mild aortic stenosis. Ordering Physician: Catherine Macias Referring Physician: Jerry Dee Performed By: Dianelys Plasencia RDCS D/C Instructions Discharge Diet: Low fat / Low cholesterol Discharge Activity: Return to Normal Activity Weight Bearing Status: Weight bearing as tolerated Call your doctor if you observe: Fever of 101 or Higher, Shortness of breath, Dizziness, Swelling in the ankles, Chest pain and Increased palpitations (irregular heartbeat) Meaningful Use Info Meaningful Use Diagnoses (Choose all that apply): None applicable Discharge Plan Admission Admit Date/Time: 05/24/21 02:55 Primary Reason for Your Visit: hemorrhagic shock, epistaxis Attending Provider: Dolores Rider Primary Care Provider: Jerry Dee Consulting Providers: Wong Meyer ; Antonio Malloy ; Edson Coleman ; Hannah Leonard NAPPER RUNNER Instructions Patient Instructions: Causes of Syncope, ED Epistaxis (Adult), ED Mechanical Fall Additional Instructions / Restrictions: Eliquis discontinued due to very high risk of bleeding. There is an increased risk of stroke whilst off eliquis, and a high risk of severe bleeding whilst on eliquis. PCP and motion picture photographer to decide about resuming eliquis on outpatient basis. Discharge Orders/Prescriptions Prescriptions: New amoxicillin-pot clavulanate [Augmentin] 875-125 mg tablet 1 tab PO BID Qty: 10 RF: 0 Continued atorvastatin 80 mg tablet 80 mg PO QHS RF: 0 lamotrigine 200 mg tablet 200 mg PO BID RF: 0 lisinopril 5 mg tablet 5 mg PO QHS RF: 0 metformin 500 mg tablet extended release 24 hr 1,000 mg PO BID RF: 0 cholecalciferol (vitamin D3) 2,000 unit capsule 2,000 unit PO DAILY RF: 0 dapagliflozin 5 mg tablet 5 mg PO DAILY RF: 0 metoprolol tartrate 75 MG tablet 75 mg PO BID RF: 0 acarbose 50 MG tablet 50 mg PO TIDCM RF: 0 aspirin 81 MG tablet,delayed release (DR/EC) 81 mg PO DAILY RF: 0 nitroglycerin 0.4 MG tablet, sublingual 0.4 mg SUBLINGUAL Q5M PRN (Reason: Chest Pain) RF: 0 docusate sodium 100 MG capsule 100 mg PO BID RF: 0 finasteride 5 MG tablet 5 mg PO DAILY RF: 0 insulin degludec 100 UNIT/ML insulin pen 0 unit SQ UD RF: 0 magnesium oxide 400 MG tablet 400 mg PO DAILY RF: 0 Discontinued Eliquis 2.5 mg tablet 2.5 mg PO BID Qty: 180 RF: 4 Referrals / Follow Up: Jovanni Rodney MD [STAFF PHYSICIAN] - Within 2 Weeks Wong Meyer MD [STAFF PHYSICIAN] - Within 2 Weeks Jerry Dee MD [Primary Care Provider] - Within 2 Weeks Disposition Disposition (needs filled in before D/C Order can be placed): Home, Self Care Charges/Coding Visit Charges Inpatient E&M: 11638 Disch Hosp
[2021-05-25 11:40] LABS: Bedside Glucose 229 mg/dL (70-110)
--- NOTE | 2021-05-25 12:13 | CASEMGMT ---
This RN CM to room to discuss discharge plan and pt states no concerns with going home at time of discharge. Pt voices no further questions/concerns/needs. SStaten RN CM
--- NOTE | 2021-05-25 14:04 | PCS.PANDOC ---
PANDEMIC DOCUMENTATION INITIATED: Date: 03/19/2021 Time: 190
--- NOTE | 2021-05-25 14:57 | NURSING ---
Read and reviewed SN documentation. Reviewed plan of care with SN
== END 2021-05-25 14:02 | disposition home or self-care (01) | DRG 150 ==
LOC: ED 05-24 00:45 → ICU 05-24 04:30 → PCU 05-24 16:00
PROVIDERS: Internal Medicine Gastroenterology; Admitting Provider Family Medicine; Emergency Provider Emergency Medicine; PCP Family Medicine; Visit Provider Student in an Organized Health Care Education/Training Program
PROC: 0DJ08ZZ Inspection of Upper Intestinal Tract, Via Natural or Artificial Opening Endoscopic (ICD-10-PCS; CPT 43235; principal; 2021-05-24 01:00)
DX: R04.0 Epistaxis (principal); R57.8 Other shock; I50.32 Chronic diastolic (congestive) heart failure; I13.0 Hypertensive heart and chronic kidney disease with heart failure and stage 1 through stage 4 chronic kidney disease, or unspecified chronic kidney disease; I48.11 Longstanding persistent atrial fibrillation; G40.109 Localization-related (focal) (partial) symptomatic epilepsy and epileptic syndromes with simple partial seizures, not intractable, without status epilepticus; D62 Acute posthemorrhagic anemia; E11.43 Type 2 diabetes mellitus with diabetic autonomic (poly)neuropathy; E11.51 Type 2 diabetes mellitus with diabetic peripheral angiopathy without gangrene; I25.10 Atherosclerotic heart disease of native coronary artery without angina pectoris; K21.9 Gastro-esophageal reflux disease without esophagitis; N18.9 Chronic kidney disease, unspecified; E11.22 Type 2 diabetes mellitus with diabetic chronic kidney disease; I25.2 Old myocardial infarction; E78.5 Hyperlipidemia, unspecified; N40.1 Benign prostatic hyperplasia with lower urinary tract symptoms; R33.8 Other retention of urine; E04.1 Nontoxic single thyroid nodule; J32.0 Chronic maxillary sinusitis; S09.90XA Unspecified injury of head, initial encounter; W19.XXXA Unspecified fall, initial encounter; Z87.891 Personal history of nicotine dependence; Z79.899 Other long term (current) drug therapy; Z79.82 Long term (current) use of aspirin; Z79.4 Long term (current) use of insulin; Z79.01 Long term (current) use of anticoagulants; Y93.89 Activity, other specified; Y92.009 Unspecified place in unspecified non-institutional (private) residence as the place of occurrence of the external cause
CPT/HCPCS: 36415; 70450; 70480; 70486; 70498; 71275; 80048; 80053; 82962; 83605; 84484; 85014; 85018; 85025; 86850; 86900; 86901; 86920; 93005; 93306; 99152; 99285; J7030; J7050; J7168; P9016; Q9967; A4216; J3490

== ENCOUNTER 2021-06-01 08:31 | Emergency (ER) | payer MEDICARE, OTHER, SELFPAY ==
[2021-06-01 08:32] VITALS: BP 141/85; PULSE 99; RESP 16; TEMP 36; O2SAT 100; BMI 23.0
--- NOTE | 2021-06-01 09:10 | EX.ED.GENINJ ---
HPI History of Present Illness Chief Complaint: Laceration Informant: patient Onset/Context/Timing Onset: Today Mechanism/Context: Fall Location: Right eyebrow Current Severity: Gone Worsened by: Nothing Relieved by: Nothing Associated Symptoms Associated Symptoms: Negative for Parasthesias, Weakness, Loss of function, Inability to ambulate, Loss of consciousness and Amnesia Narrative Narrative: Patient presents with a laceration to his right eyebrow that occurred today. 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 Patient states he stood up too quick and lost his balance. Patient states he fell and hit his right eye on his bedside table. Patient denies any loss of consciousness. Patient has been on Eliquis but has not been taking it for the past couple days per his doctor's instructions. Patient denies any loss of consciousness. Patient denies any paresthesias or weakness. [facility] Medical History Acid reflux Anemia Atherosclerosis of coronary artery of [place] heart without angina pectoris Atrial fibrillation BPH (benign prostatic hyperplasia) Chronic diastolic (congestive) heart failure Chronic kidney disease Erectile dysfunction Essential (primary) hypertension History of non-ST elevation myocardial infarction (NSTEMI) (08/26/16) Hyperlipidemia Inguinal hernia of right side without obstruction or gangrene Iron deficiency anemia Longstanding persistent atrial fibrillation Multinodular goiter Nonrheumatic aortic (valve) stenosis Paroxysmal atrial fibrillation Partial seizure disorder Peripheral vascular occlusive disease Pre-syncope Syncope Syncope Type 2 diabetes mellitus Urinary retention Urinary retention due to benign prostatic hyperplasia Ventral incisional hernia without obstruction or gangrene Home Medications atorvastatin 80 mg tablet 80 mg PO QHS 07/21/18 [History Last Taken 05/23/19] cholecalciferol (vitamin D3) 50 mcg (2,000 unit) capsule 2,000 unit PO DAILY 07/21/18 [History Last Taken 05/23/19] lamotrigine 200 mg tablet 200 mg PO BID 07/21/18 [History Last Taken 05/24/19 05:30] lisinopril 5 mg tablet 5 mg PO QHS 07/21/18 [History Last Taken 05/23/19] metformin 500 mg tablet,extended release 24 hr 1,000 mg PO BID tab 07/21/18 [History Last Taken 08/07/20] metoprolol tartrate 75 mg PO BID 05/25/19 [History Last Taken 05/24/19] dapagliflozin 5 mg tablet 5 mg PO DAILY tab 02/29/20 [History Last Taken Unknown] acarbose 50 mg PO TIDCM 08/07/20 [History Last Taken Unknown] aspirin 81 mg PO DAILY 08/07/20 [History Last Taken Unknown] docusate sodium 100 mg PO BID 08/07/20 [History Last Taken Unknown] finasteride 5 mg PO DAILY 08/07/20 [History Last Taken Unknown] insulin degludec 0 unit SQ UD 08/07/20 [History Last Taken Unknown] magnesium oxide 400 mg PO DAILY 08/07/20 [History Last Taken Unknown] nitroglycerin 0.4 mg SUBLINGUAL Q5M PRN 08/07/20 [History Last Taken Unknown] Allergy/AdvReac Type Severity Reaction Status Date / Time carbamazepine [From Tegretol] Allergy Rash Verified 06/01/21 08:34 Family History Mother Cancer Heart disease Father Hypertension Diabetes Son Heart disease Surgical History History of angioplasty of peripheral vessel (06/28/14) History of cardioversion (08/21/16) History of colonoscopy (01/2019) History of coronary artery stent placement (08/26/16) History of inguinal hernia repair 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) History of transurethral resection of prostate (01/2019) Status post biopsy of thyroid gland (09/2019) Social History household members: spouse Smoking Status: Former smoker quit date: 08/04/69 pack-years: 10 alcohol intake: current alcohol intake frequency: a few times a month substance use type: does not use ROS ROS ED Constitutional Constitutional ED: Denies chills or fever(s) Eyes Eyes: Denies blurry vision or change in vision ENT ENT ED: Denies rhinorrhea or sore throat Cardiovascular Cardiovascular: Denies chest pain or palpitations Respiratory/Chest Respiratory/Chest: Denies cough or dyspnea Gastrointestinal Gastrointestinal: Denies nausea or vomiting Genitourinary Genitourinary ED: Denies dysuria or hematuria Musculoskeletal Musculoskeletal: Denies back pain or neck pain Integumentary Denies abscess or rash Neurologic Neurologic: Denies headache(s) or weakness Allergic/Immunologic Allergic/Immunologic ED: Denies mouth swelling or urticaria EXAM Physical Exam Const Vital Signs: 06/01/21 08:32 Temperature 96.8 F L Temperature Source Temporal Pulse Rate 99 Respiratory Rate 16 Blood Pressure 141/85 H Blood Pressure Mean 103 Pulse Ox 100 Oxygen Delivery Method Room Air Positive well nourished and well developed General Appearance ED: well developed HEENT HEENT Narrative: There is a 2 cm full-thickness linear laceration over the lateral aspect of the right eyebrow. There is mild bleeding. There is no gapping of the wound margins. There is no bony crepitance or step-off. There is no ecchymosis noted. Eyes PERRL and EOMs intact bilaterally Neck full ROM Extremity normal to inspection and full ROM Neuro oriented x3, CN's II-XII intact bilaterally, moves all extremities, no focal motor deficits and no sensory deficits noted Sensorium / Orientation: alert Psych mental status grossly normal PROC Procedures Lacerations Right eyebrow: Length: 2 cm Depth: Skin Shape: Linear Prep: Sterile Conditions and Shure-Clens Laceration repair: Dermabond MDM MDM MDM Narrative Medical decision making narrative: The wound was cleaned with chlorhexidine. The wound was closed with Dermabond skin adhesive. 3 layers were applied. Patient tolerated procedure well. Patient was instructed to avoid Neosporin, bacitracin, triple antibiotic, or other Vaseline-based ointments. Patient was instructed to follow-up with his primary care physician in 5 to 7 days. Patient understood and was agreeable with the plan. All questions were answered. Discharge Plan Triage Chief Complaint: Laceration ED Provider: Wong Andrea Dx/Rx/DC Orders Clinical Impression: Laceration of right eyebrow Instructions: ED Laceration, Face: Skin Glue Prescriptions: No Action atorvastatin 80 mg tablet 80 mg PO QHS RF: 0 lamotrigine 200 mg tablet 200 mg PO BID RF: 0 lisinopril 5 mg tablet 5 mg PO QHS RF: 0 metformin 500 mg tablet extended release 24 hr 1,000 mg PO BID RF: 0 cholecalciferol (vitamin D3) 2,000 unit capsule 2,000 unit PO DAILY RF: 0 dapagliflozin 5 mg tablet 5 mg PO DAILY RF: 0 metoprolol tartrate 75 MG tablet 75 mg PO BID RF: 0 acarbose 50 MG tablet 50 mg PO TIDCM RF: 0 aspirin 81 MG tablet,delayed release (DR/EC) 81 mg PO DAILY RF: 0 nitroglycerin 0.4 MG tablet, sublingual 0.4 mg SUBLINGUAL Q5M PRN (Reason: Chest Pain) RF: 0 docusate sodium 100 MG capsule 100 mg PO BID RF: 0 finasteride 5 MG tablet 5 mg PO DAILY RF: 0 insulin degludec 100 UNIT/ML insulin pen 0 unit SQ UD RF: 0 magnesium oxide 400 MG tablet 400 mg PO DAILY RF: 0 Primary Care Provider: Jerry Dee Referrals: Jerry Dee MD [Primary Care Provider] - 5-7 Days Disposition Disposition: Home, Self Care
[2021-06-01] MEDS: Lidocaine/Epi/Tetracaine 50 ML 1 APPLIC TOPICAL (09:15)
[2021-06-01 09:55] VITALS: BP 121/77; PULSE 62; RESP 15; O2SAT 98
== END 2021-06-01 09:56 | disposition home or self-care (01) ==
LOC: ED 09:25
PROVIDERS: Emergency Provider Emergency Medicine; PCP Family Medicine
DX: S01.111A Laceration without foreign body of right eyelid and periocular area, initial encounter (principal); I25.2 Old myocardial infarction; I25.10 Atherosclerotic heart disease of native coronary artery without angina pectoris; I13.0 Hypertensive heart and chronic kidney disease with heart failure and stage 1 through stage 4 chronic kidney disease, or unspecified chronic kidney disease; E11.22 Type 2 diabetes mellitus with diabetic chronic kidney disease; I50.32 Chronic diastolic (congestive) heart failure; N18.9 Chronic kidney disease, unspecified; I48.0 Paroxysmal atrial fibrillation; E78.5 Hyperlipidemia, unspecified; Z79.4 Long term (current) use of insulin; Z79.82 Long term (current) use of aspirin; Z87.891 Personal history of nicotine dependence; Z79.899 Other long term (current) drug therapy; W19.XXXA Unspecified fall, initial encounter
CPT/HCPCS: G0168; 99282

== ENCOUNTER → 2021-07-10 09:40 | Outpatient (CLI) | payer MEDICARE, OTHER, SELFPAY ==
[2021-07-10 12:43] LABS: Absolute Lymphocyte Count 1.83 X10^3/uL (0.83-4.51); Absolute Neutrophil Count 3.5 X10^3/uL (2.0-7.7); Basophil# 0.06 X10^3/uL; Eosinophil# 0.12 X10^3/uL; Hematocrit 45.7 % (40-54); Hemoglobin 14.3 g/dL (13.0-16.5); Lymphocyte # 1.83 X10^3/ul (0.83-4.51); Lymphocyte % 31.1 % (19-41); Mean Corp Hgb Conc 31.3 g/dL (32-36); Mean Corpuscular Hgb 28.4 pg (27.0-32.0); Mean Corpuscular Volume 90.7 fL (80-94); Mean Platelet Vol. 10.1 fl (6.2-12.0); Monocyte% 6.8 % (0-10); NRBC Flagged by Analyzer 0 % (0-5); Neutrophil # 3.46 X10^3/uL (2.7-7.7); Neutrophil % 58.9 % (47-70); Platelet Count 272 K/mm3 (150-450); RBC Distribution Width CV 13.4 % (11.6-14.6); RBC Distribution Width SD 44.9 fl (35.1-43.9); Red Blood Count 5.04 M/mm3 (4.6-6.2); White Blood Count 5.9 K/mm3 (4.4-11.0)
[2021-07-10 13:12] LABS: Ferritin 23 ng/mL (26-388); Iron 47 ug/dL (65-175); Iron Binding Capacity,Total 416 ug/dL (250-450)
== END ==
PROVIDERS: PCP Family Medicine; Referring Provider Family Medicine; Visit Provider Family Medicine
DX: R57.8 Other shock (principal); E61.1 Iron deficiency
CPT/HCPCS: 36415; 82728; 83540; 83550; 85025

== ENCOUNTER → 2021-07-24 16:53 | Outpatient (CLI) | payer MEDICARE, OTHER, SELFPAY ==
[2021-07-24 17:37] LABS: Absolute Lymphocyte Count 1.83 X10^3/uL (0.83-4.51); Absolute Neutrophil Count 4.2 X10^3/uL (2.0-7.7); Basophil# 0.06 X10^3/uL; Basophil% 0.9 % (0-1); Eosinophil# 0.17 X10^3/uL; Eosinophils% 2.5 % (0-5); Hematocrit 43.9 % (40-54); Lymphocyte # 1.83 X10^3/ul (0.83-4.51); Mean Corp Hgb Conc 31.9 g/dL (32-36); Mean Corpuscular Hgb 28.6 pg (27.0-32.0); Mean Corpuscular Volume 89.6 fL (80-94); Mean Platelet Vol. 9.7 fl (6.2-12.0); Monocyte# 0.56 X10^3/uL; Monocyte% 8.3 % (0-10); NRBC Flagged by Analyzer 0 % (0-5); Neutrophil # 4.15 X10^3/uL (2.7-7.7); Neutrophil % 61.2 % (47-70); Platelet Count 208 K/mm3 (150-450); RBC Distribution Width CV 13.3 % (11.6-14.6); RBC Distribution Width SD 43.6 fl (35.1-43.9); White Blood Count 6.8 K/mm3 (4.4-11.0)
[2021-07-24 18:04] LABS: ALB/GLOB Ratio 1.1 RATIO (0.9-2.4); AST(SGOT) 11 U/L (15-37); Alanine Aminotransfer ALT/SGPT 24 U/L (16-61); Albumin, Serum 3.6 g/dL (3.2-5.0); Alkaline Phosphatase 72 U/L (45-117); Anion Gap 6 (5-15); BUN 17 mg/dL (7-18); BUN/Creat Ratio 18.9 RATIO (10-20); Calcium,Total 9.4 mg/dL (8.5-10.1); Chloride 106 mmol/L (98-107); Cholesterol 121 mg/dL (200); EST Glomerular Filtration Rate 87 mL/min (>60); Est Glom Filt Rate - Afr Amer 105 mL/min (>60); Ferritin 17 ng/mL (26-388); Globulin 3.2 g/dL (2.2-4.2); Glucose 61 mg/dL (74-106); High Density Lipoprotein 65 mg/dL; Iron 38 ug/dL (65-175); Iron Binding Capacity,Total 352 ug/dL (250-450); Magnesium 1.9 mg/dL (1.6-2.6); Potassium 3.9 mmol/L (3.5-5.1); Protein, Total 6.8 g/dL (6.4-8.2); Sodium Level 139 mmol/L (136-145); Triglycerides 66 mg/dL; Very Low Density Lipoprotein 13 mg/dL (5-40)
[2021-07-24 18:09] LABS: Hemoglobin A1c 5.7 % (3.8-5.6)
== END ==
PROVIDERS: PCP Family Medicine; Referring Provider Family Medicine; Visit Provider Family Medicine
DX: E61.1 Iron deficiency (principal); E11.9 Type 2 diabetes mellitus without complications; I48.0 Paroxysmal atrial fibrillation
CPT/HCPCS: 36415; 80053; 80061; 82728; 83036; 83540; 83550; 83735; 85025

== ENCOUNTER → 2021-07-25 13:32 | Outpatient (CLI) | payer MEDICARE, OTHER, SELFPAY ==
[2021-07-25 15:28] LABS: Microalbumin:Creatinine Ratio 174.2 mg/g CRE (<30 mg/g CRE)
== END ==
PROVIDERS: PCP Family Medicine; Referring Provider Family Medicine; Visit Provider Family Medicine
DX: E11.69 Type 2 diabetes mellitus with other specified complication (principal); E61.1 Iron deficiency; I48.0 Paroxysmal atrial fibrillation
CPT/HCPCS: 82043; 82570

== ENCOUNTER 2021-09-18 10:08 | Outpatient (CLI) | payer MEDICARE, OTHER, SELFPAY ==
--- NOTE | 2021-09-18 10:14 | ART_ITS ---
Reason For Study: stricture of artery Procedure A bilateral lower extremity continuous wave Doppler with analog waveform analysis and ankle brachial indexes. Left Segmental Pressures Left brachial= 150mmHg. The left posterior tibial artery waveforms are biphasic. The left dorsalis pedis waveforms are monophasic. VICE PRESIDENT OF SOFTWARE DEVELOPMENT and DPA are noncompressible. Right Segmental Pressures Right brachial= 143mmHg. The right dorsalis pedis waveforms are biphasic. The right posterior tibial artery waveforms are biphasic. VICE PRESIDENT [employer] SOFTWARE [employer]ELOPMENT and DPA are noncompressible. Indices VICE PRESIDENT [employer] SOFTWARE DEVELOPMENT and DPA are noncompressible. Digit is noncompressible. VICE PRESIDENT [employer] SOFTWARE DEVELOPMENT and DPA are noncompressible. VL/Ankle Brachial Index Interpretation Summary Bilateral biphasic flow noted with noncompressibility. Appears to have adequate waveforms. Ordering Physician: Nikita Jeff Referring Physician: Nikita Jeff Performed By: Joo El, RVT
--- NOTE | 2021-09-18 10:16 | ADUL_ITS ---
Reason For Study: stricture of artery Left Velocities Ext Iliac Artery, dist = 65.4 cm./sec. Common Femoral Artery, mid = 57.7 cm./sec. Supf. Femoral Artery, prox = 76.9 cm./sec. Supf. Femoral Artery, mid = 47.4 cm./sec. Supf. Femoral Artery, dist = 56.0 cm./sec. Profunda Femoral Artery = 63.2 cm./sec. Popliteal Artery, mid = 53.5 cm./sec. Ant.Tibial Artery, prox = 60.8 cm./sec. Ant Tibial Artery, mid = 37.5 cm./sec. Ant. Tibial Artery, distal = 48.5 cm./sec. Post. Tibial Artery, prox = 49.8 cm./sec. Post Tibial Artery, mid = 73.1 cm./sec. Post Tibial Artery, dist. = 64.5 cm./sec. Peroneal Artery, prox = 41.2 cm./sec. Peroneal Artery, mid = 42.4 cm./sec. Peroneal Artery,dist. = 41.2 cm./sec. /US Art Duplex Unilat Lower Ext Interpretation Summary Left leg with no significant stenosis noted and triphasic flow noted throughout . Ordering Physician: Nikita Jeff Performed By: Joo El RVT
== END 2021-09-18 23:59 | disposition home or self-care (01) ==
LOC: CVS 10:10
PROVIDERS: PCP Family Medicine; Referring Provider Surgery Vascular Surgery; Visit Provider Surgery Vascular Surgery
DX: Z48.812 Encounter for surgical aftercare following surgery on the circulatory system (principal); I77.1 Stricture of artery; I70.213 Atherosclerosis of native arteries of extremities with intermittent claudication, bilateral legs
CPT/HCPCS: 93922; 93926

== ENCOUNTER → 2021-12-03 | Outpatient (CLI) | payer MEDICARE, OTHER, SELFPAY ==
[2021-12-03 12:12] LABS: Absolute Lymphocyte Count 1.71 X10^3/uL (0.83-4.51); Absolute Neutrophil Count 2.6 X10^3/uL (2.0-7.7); Basophil# 0.06 X10^3/uL; Basophil% 1.2 % (0-1); Eosinophil# 0.13 X10^3/uL; Eosinophils% 2.6 % (0-5); Hematocrit 41.1 % (40-54); Hemoglobin 13.7 g/dL (13.0-16.5); Lymphocyte # 1.71 X10^3/ul (0.83-4.51); Lymphocyte % 33.7 % (19-41); Mean Corp Hgb Conc 33.3 g/dL (32-36); Mean Corpuscular Hgb 29.5 pg (27.0-32.0); Mean Corpuscular Volume 88.4 fL (80-94); Monocyte# 0.53 X10^3/uL; Monocyte% 10.5 % (0-10); NRBC Flagged by Analyzer 0 % (0-5); Neutrophil # 2.61 X10^3/uL (2.7-7.7); Neutrophil % 51.4 % (47-70); Platelet Count 211 K/mm3 (150-450); RBC Distribution Width CV 14.4 % (11.6-14.6); RBC Distribution Width SD 45.8 fl (35.1-43.9); Red Blood Count 4.65 M/mm3 (4.6-6.2); White Blood Count 5.1 K/mm3 (4.4-11.0)
[2021-12-03 12:32] LABS: Hemoglobin A1c 7.2 % (3.8-5.6)
[2021-12-03 12:49] LABS: Vitamin D,25 Hydroxy 91.6 ng/mL
[2021-12-03 13:08] LABS: ALB/GLOB Ratio 1.4 RATIO (0.9-2.4); AST(SGOT) 14 U/L (15-37); Alanine Aminotransfer ALT/SGPT 25 U/L (16-61); Albumin, Serum 3.6 g/dL (3.2-5.0); Alkaline Phosphatase 60 U/L (45-117); Anion Gap 9 (5-15); BUN 18 mg/dL (7-18); BUN/Creat Ratio 21.4 RATIO (10-20); Calcium,Total 8.7 mg/dL (8.5-10.1); Chloride 100 mmol/L (98-107); Cholesterol 121 mg/dL (200); Creatinine, Serum 0.84 mg/dL (0.70-1.30); EST Glomerular Filtration Rate 93 mL/min (>60); Est Glom Filt Rate - Afr Amer 113 mL/min (>60); Ferritin 45 ng/mL (26-388); Globulin 2.5 g/dL (2.2-4.2); Glucose 107 mg/dL (74-106); High Density Lipoprotein 55 mg/dL; Iron 88 ug/dL (65-175); Iron Binding Capacity,Total 249 ug/dL (250-450); Magnesium 1.3 mg/dL (1.6-2.6); Protein, Total 6.1 g/dL (6.4-8.2); Sodium Level 137 mmol/L (136-145); Triglycerides 82 mg/dL; Very Low Density Lipoprotein 16 mg/dL (5-40)
== END | disposition home or self-care (01) ==
LOC: MFPLAB 10:10
PROVIDERS: PCP Family Medicine; Visit Provider Family Medicine
DX: E61.1 Iron deficiency (principal); I48.0 Paroxysmal atrial fibrillation; E11.9 Type 2 diabetes mellitus without complications; E55.9 Vitamin D deficiency, unspecified
CPT/HCPCS: 36415; 80053; 80061; 82306; 82728; 83036; 83540; 83550; 83735; 85025

== ENCOUNTER → 2021-12-07 | Outpatient (CLI) | payer MEDICARE, OTHER, SELFPAY | END | disposition home or self-care (01) | LOC: LABSPEC 15:31 | PROVIDERS: PCP Family Medicine; Referring Provider Family Medicine; Visit Provider Family Medicine | DX: E11.9 Type 2 diabetes mellitus without complications (principal) | CPT/HCPCS: 82043; 82570 ==

== ENCOUNTER → 2022-02-25 | Outpatient (CLI) | payer MEDICARE, OTHER, SELFPAY ==
[2022-02-25 12:22] LABS: Absolute Neutrophil Count 4.7 X10^3/uL (2.0-7.7); Basophil# 0.04 X10^3/uL; Basophil% 0.6 % (0-1); Eosinophil# 0.16 X10^3/uL; Eosinophils% 2.3 % (0-5); Hematocrit 48.6 % (40-54); Hemoglobin 16.2 g/dL (13.0-16.5); Mean Corp Hgb Conc 33.3 g/dL (32-36); Mean Corpuscular Hgb 30.7 pg (27.0-32.0); Mean Corpuscular Volume 92.2 fL (80-94); Mean Platelet Vol. 10.1 fl (6.2-12.0); Monocyte# 0.49 X10^3/uL; NRBC Flagged by Analyzer 0 % (0-5); Neutrophil # 4.65 X10^3/uL (2.7-7.7); Neutrophil % 66.8 % (47-70); Platelet Count 236 K/mm3 (150-450); RBC Distribution Width CV 12.5 % (11.6-14.6); RBC Distribution Width SD 42.4 fl (35.1-43.9); Red Blood Count 5.27 M/mm3 (4.6-6.2)
[2022-02-25 12:33] LABS: ALB/GLOB Ratio 1.2 RATIO (0.9-2.4); AST(SGOT) 18 U/L (15-37); Alanine Aminotransfer ALT/SGPT 41 U/L (16-61); Albumin, Serum 3.9 g/dL (3.2-5.0); Alkaline Phosphatase 74 U/L (45-117); Anion Gap 8 (5-15); BUN 18 mg/dL (7-18); BUN/Creat Ratio 15.5 RATIO (10-20); Calcium,Total 10.2 mg/dL (8.5-10.1); Chloride 103 mmol/L (98-107); Cholesterol 123 mg/dL (200); Creatinine, Serum 1.16 mg/dL (0.70-1.30); EST Glomerular Filtration Rate 65 mL/min (>60); Est Glom Filt Rate - Afr Amer 78 mL/min (>60); Globulin 3.3 g/dL (2.2-4.2); Glucose 190 mg/dL (74-106); High Density Lipoprotein 65 mg/dL; Magnesium 1.8 mg/dL (1.6-2.6); Potassium 4.7 mmol/L (3.5-5.1); Protein, Total 7.2 g/dL (6.4-8.2); Sodium Level 136 mmol/L (136-145); Triglycerides 76 mg/dL; Very Low Density Lipoprotein 15 mg/dL (5-40)
[2022-02-25 12:34] LABS: Hemoglobin A1c 7.6 % (3.8-5.6)
[2022-02-25 12:38] LABS: Vitamin D,25 Hydroxy 47.4 ng/mL
[2022-02-26 21:59] LABS: Microalbumin:Creatinine Ratio 163.2 mg/g CRE (<30 mg/g CRE)
== END | disposition home or self-care (01) ==
PROVIDERS: PCP Family Medicine; Referring Provider Family Medicine; Visit Provider Family Medicine
DX: E87.6 Hypokalemia (principal); E11.9 Type 2 diabetes mellitus without complications; E55.9 Vitamin D deficiency, unspecified
CPT/HCPCS: 80048; 80053; 80061; 82043; 82306; 82570; 83036; 83735; 85025

== ENCOUNTER → 2022-03-05 | Outpatient (CLI) | payer MEDICARE, OTHER, SELFPAY ==
--- NOTE | 2022-03-05 17:00 | RAD_ITS ---
STUDY: X-RAY - CERVICAL SPINE REASON FOR EXAM: Male, 77 years old. NECK PAIN TECHNIQUE: XR Spine Cervical 4 or 5 Views COMPARISON: None FINDINGS: Normal anterior atlantoaxial articulation. No acute findings of the odontoid process. There is reversal of the normal cervical lordosis. There is multi-level endplate spondylosis. There is multi-level degenerative disc disease with multilevel disc space narrowing. There is multi-level osseous foraminal stenosis. Fusion of C6-7. The soft tissue structures are unremarkable. RAD/Cerv Spine 4 or 5 Views IMPRESSION: There are degenerative changes as noted above. There is mild straightening of the normal cervical lordosis. This can suggest neck strain. Electronically Signed: Mp Duggan MD at 20:13 EDT ,
== END | disposition home or self-care (01) ==
LOC: MTRAD 16:55
PROVIDERS: PCP Family Medicine; Referring Provider Family Medicine; Visit Provider Family Medicine
DX: M54.2 Cervicalgia (principal)
CPT/HCPCS: 72050

== ENCOUNTER → 2022-03-13 | Outpatient (CLI) | payer MEDICARE, OTHER, SELFPAY ==
--- NOTE | 2022-03-13 12:55 | STRESSREP ---
Stress Test Report Pharmacologic myocardial perfusion stress test. 77-year-old man with a history of coronary artery disease Stress protocol: Resting EKG demonstrates atrial fibrillation with a rate of 90 bpm resting blood pressure is 122/80 mmHg. 0.4 mg of regadenoson was infused per usual protocol followed by rapid venous saline flush injection continuous EKG monitoring was performed. The maximum heart rate attained was noted to be 99 bpm which was 70% of max impacted heart rate the maximum workload was 1 metabolic equivalent. The patient maintained atrial fibrillation throughout the recording. Poor R wave progression was noted. There were no ST or T wave changes noted to suggest abnormal flow reserve. The peak blood pressure was 122/80 mmHg. Myocardial perfusion protocol. 11.1 mCi of technetium 99m sestamibi was injected at rest. 0.4 mg of regadenoson was infused per usual protocol. At peak infusion 34.2 mCi of technetium 99m sestamibi was injected stress images were obtained stress and rest images were reconstructed and compared in the short axis vertical long and horizontal long axis. Gated images were also obtained. Perfusion SPECT analysis: Review of the stress images demonstrate normal cardiac silhouette size. The septum and inferior wall and lateral wall are well perfused. The distal anterior wall and apex appear to have reduced perfusion noted on the stress images with moderate improvement on the resting images suggesting a moderate amount of ischemia in a small to medium size zone. Gated SPECT analysis: The gated ejection fraction is 76%. Conclusion: Abnormal pharmacologic myocardial perfusion stress test with distal anterior apical ischemia noted. Preserved ejection fraction
== END | disposition home or self-care (01) ==
LOC: CVS 06:55
PROVIDERS: PCP Family Medicine; Visit Provider Nurse Practitioner Family
DX: R07.9 Chest pain, unspecified (principal); I50.32 Chronic diastolic (congestive) heart failure; I48.11 Longstanding persistent atrial fibrillation; I25.10 Atherosclerotic heart disease of native coronary artery without angina pectoris; Z95.5 Presence of coronary angioplasty implant and graft
CPT/HCPCS: 78452; 93017; A9500; A4216; J2785

== ENCOUNTER → 2022-03-15 | Outpatient (CLI) | payer MEDICARE, OTHER, SELFPAY ==
--- NOTE | 2022-03-15 15:07 | RAD_ITS ---
STUDY: X-RAY CHEST REASON FOR EXAM: Male, 77 years old. Pre-operative eval. TECHNIQUE: PA and lateral views of the chest. COMPARISON: None. FINDINGS: The lungs are somewhat hyperinflated. No focal infiltrate is seen. There is no demonstrated pleural abnormality. Normal cardiac silhouette. There are coronary calcifications. Normal mediastinum and jessica. Normal visualized pulmonary arteries. There is atherosclerotic calcification of the aortic arch. There are degenerative changes of the visualized thoracic spine. Normal visualized ribs, clavicles, and shoulders. There is no demonstrated abnormality of the visualized soft tissue structures of the upper abdomen. RAD/Chest PA and Lateral IMPRESSION: No active pulmonary disease. Coronary calcifications. Electronically Signed: Perry Serra MD at 11:36 EDT ,
== END | disposition home or self-care (01) ==
LOC: MTRAD 15:06
PROVIDERS: PCP Family Medicine; Referring Provider Nurse Practitioner Family; Visit Provider Nurse Practitioner Family
DX: Z01.818 Encounter for other preprocedural examination (principal); R94.39 Abnormal result of other cardiovascular function study; Z95.5 Presence of coronary angioplasty implant and graft
CPT/HCPCS: 71046

== ENCOUNTER 2022-03-19 06:43 | Day surgery (SDC) | payer MEDICARE, OTHER, SELFPAY ==
[2022-03-18 08:49] VITALS: BMI 18.1
--- NOTE | 2022-03-19 09:00 | CL.D_ITS ---
Patient Name: AGUSTO CASTILLO Study Date: 03/19/2022 Performing: Jovanni Rodney MD Ht: 70.86 inches 180 cm : 1945 Wt: 130.07 lbs 59 kg Age: 77 Gender: male BSA: 1.75 PROCEDURE(S) PERFORMED [id number])LHC/COR/LV CLINICAL PROFILE AND INDICATIONS Indications: Suspected CAD Heart Failure: None Stress/Imaging Date: 03/13/22Stress Test with SPECT MPI: Positive Intermediate Risk CAD Presentations: No Sxs, no angina. 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 RECOMMENDATIONS Would recommend PCI with shockwave lithotripsy to the left circumflex artery. Would need to be trans ferred to a tertiary care facility. DESCRIPTION OF PROCEDURE The patient arrived to the procedure lab. The risks and benefits of the procedure as well as a full d escription of our services here and current unavailability of surgical backup were fully explained to the patient and/or their significant other prior to the catheterization. The Timeout was completed, verifying the correct patient and procedure. The patient's procedural site was prepped and draped in the usual fashion. Local anesthetic was given subcutaneously to right radial region with Lidocaine 2% . Using a modified Seldinger technique, arterial access was obtained via the right radial artery, a 6 Fr sheath was inserted. Right Coronary Artery selective angiography was then performed in multiple v iews using a 5 Fr. 4.0 [place] catheter. Left Coronary Artery selective angiography was performed in mu ltiple views using a 5 Fr. 4.0 [place] catheter. Left Ventriculography was performed in [place]ARE[place] projection using a 5 Fr. [place] catheter. LV to AO pullback pressures were then recorded. CORONARY ANGIOGRAPHY DOMINANCE: Right Dominant LEFT HEART ASSESSMENT Left Ventricular Ejection Fraction: by LV Gram 60 % Normal LV wall motion Normal Left Ventricular systolic function LEFT MAIN: Mild calcification, Non-obstructive LEFT ANTERIOR DESCENDING ARTERY: Previously placed stent in the mid LAD is noted to be patent with a first diagonal vessel noted to have severe disease of 90% proximally and 90% distally and a small ves star. CIRCUMFLEX ARTERY: Moderate calcification, Mid circumflex artery with 90% stenosis noted in a bend RIGHT CORONARY ARTERY: MID RCA: is occluded COLLATERAL FLOW: Collateral flow from Left to Right COMPLICATIONS No Complications PROCEDURE MEDICATIONS Fentanyl 50 mcg IV Versed 1 mg IV Versed 1 mg IV Fentanyl 25 mcg IV Fentanyl 50 mcg IV Oxygen: 2 L/min via nasal cannula Baby Aspirin (81mg) 1 Tabs PO @ 03/19/2022 07:15:33 Nitro 100 mcg IA 03/19/2022 08:43:00 SUMMARY OF HEMODYNAMIC DATA Time AIR REST ECG 07:14:15 AO 103/65 (82) SA 08:26:42 AO 111/63 (82) 08:26:56 LV 114/8, 10 08:37:39 LV 113/8, 10 08:37:45 LV 104/9, 11 08:38:32 LVp 114/11, 14 08:38:52 AOp 102/60 (79) 08:38:57 Signed By Jovanni Rodney MD On 03/19/2022 08:58:51 Jovanni Rodney MD
== END 2022-03-19 13:00 | disposition short-term general hospital (02) ==
LOC: CLSP 06:44
PROVIDERS: PCP Family Medicine; Referring Provider Internal Medicine Cardiovascular Disease; Visit Provider Internal Medicine Cardiovascular Disease
DX: I25.10 Atherosclerotic heart disease of native coronary artery without angina pectoris (principal); I13.0 Hypertensive heart and chronic kidney disease with heart failure and stage 1 through stage 4 chronic kidney disease, or unspecified chronic kidney disease; I50.32 Chronic diastolic (congestive) heart failure; I73.9 Peripheral vascular disease, unspecified; I48.11 Longstanding persistent atrial fibrillation; Z79.4 Long term (current) use of insulin; N18.9 Chronic kidney disease, unspecified; E78.5 Hyperlipidemia, unspecified; N40.0 Benign prostatic hyperplasia without lower urinary tract symptoms; K21.9 Gastro-esophageal reflux disease without esophagitis; Z79.82 Long term (current) use of aspirin; Z79.899 Other long term (current) drug therapy; Z87.891 Personal history of nicotine dependence; I25.2 Old myocardial infarction; Z95.5 Presence of coronary angioplasty implant and graft
CPT/HCPCS: 93458; 99152; 99153; J7040; C1769; C1894; Q9967

== ENCOUNTER → 2022-04-10 | Outpatient (CLI) | payer MEDICARE, OTHER, SELFPAY ==
[2022-04-10 10:26] LABS: Absolute Lymphocyte Count 1.98 X10^3/uL (0.83-4.51); Absolute Neutrophil Count 3.3 X10^3/uL (2.0-7.7); Basophil# 0.04 X10^3/uL; Basophil% 0.7 % (0-1); Eosinophil# 0.18 X10^3/uL; Hematocrit 42.5 % (40-54); Hemoglobin 13.9 g/dL (13.0-16.5); Lymphocyte # 1.98 X10^3/ul (0.83-4.51); Lymphocyte % 32.7 % (19-41); Mean Corp Hgb Conc 32.7 g/dL (32-36); Mean Corpuscular Hgb 30.4 pg (27.0-32.0); Mean Platelet Vol. 9.7 fl (6.2-12.0); Monocyte# 0.54 X10^3/uL; Monocyte% 8.9 % (0-10); NRBC Flagged by Analyzer 0 % (0-5); Neutrophil # 3.31 X10^3/uL (2.7-7.7); Neutrophil % 54.5 % (47-70); Platelet Count 221 K/mm3 (150-450); RBC Distribution Width CV 13.2 % (11.6-14.6); RBC Distribution Width SD 44.5 fl (35.1-43.9); Red Blood Count 4.57 M/mm3 (4.6-6.2); White Blood Count 6.1 K/mm3 (4.4-11.0)
[2022-04-10 10:56] LABS: ALB/GLOB Ratio 1.2 RATIO (0.9-2.4); AST(SGOT) 17 U/L (15-37); Alanine Aminotransfer ALT/SGPT 40 U/L (16-61); Albumin, Serum 3.5 g/dL (3.2-5.0); Alkaline Phosphatase 60 U/L (45-117); Anion Gap 11 (5-15); BUN 21 mg/dL (7-18); BUN/Creat Ratio 20.2 RATIO (10-20); Calcium,Total 9.3 mg/dL (8.5-10.1); Chloride 100 mmol/L (98-107); Cholesterol 132 mg/dL (200); Creatinine, Serum 1.04 mg/dL (0.70-1.30); EST Glomerular Filtration Rate 73 mL/min (>60); Est Glom Filt Rate - Afr Amer 89 mL/min (>60); Glucose 175 mg/dL (74-106); High Density Lipoprotein 66 mg/dL; Magnesium 1.7 mg/dL (1.6-2.6); Potassium 4.4 mmol/L (3.5-5.1); Protein, Total 6.5 g/dL (6.4-8.2); Sodium Level 137 mmol/L (136-145); Triglycerides 76 mg/dL; Very Low Density Lipoprotein 15 mg/dL (5-40)
[2022-04-10 11:17] LABS: Vitamin D,25 Hydroxy 35.8 ng/mL
[2022-04-10 11:21] LABS: Hemoglobin A1c 8.4 % (3.8-5.6)
[2022-04-10 18:17] LABS: Microalbumin,Random Urine 38.1 mg/L (NO RANGE EST.); Microalbumin:Creatinine Ratio 120.6 mg/g CRE (<30 mg/g CRE)
== END | disposition home or self-care (01) ==
PROVIDERS: PCP Family Medicine; Referring Provider Family Medicine; Visit Provider Family Medicine
DX: E87.6 Hypokalemia (principal); I48.0 Paroxysmal atrial fibrillation; E11.9 Type 2 diabetes mellitus without complications; E55.9 Vitamin D deficiency, unspecified
CPT/HCPCS: 36415; 80053; 80061; 82043; 82306; 82570; 83036; 83735; 85025

== ENCOUNTER → 2022-04-18 | Outpatient (CLI) | payer MEDICARE, OTHER, SELFPAY | END | disposition home or self-care (01) | PROVIDERS: PCP Family Medicine; Visit Provider Podiatrist | DX: L97.522 Non-pressure chronic ulcer of other part of left foot with fat layer exposed (principal) | CPT/HCPCS: 87070; 87077; 87186; 87205 ==

== ENCOUNTER 2022-04-30 07:55 | Outpatient (RCR) | payer MEDICARE, OTHER, SELFPAY ==
[2022-04-30 08:11] VITALS: BP 111/65; PULSE 98; TEMP 36.4; BMI 19.6
--- NOTE | 2022-04-30 09:59 | PCM.WC.HP ---
History of Present Illness Date of Service: 04/30/22 Chief Complaint: Left heel and lateral foot ulcerations osteomyelitis Peripheral vascular disease History of Wound: 77-year-old male seen for new onset ulcerations to plantar left heel and left forefoot. 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 Patient had all of the wounds healed but noted a recent fall and now has 5 wounds. He denies constitutional symptoms currently. Patient is awaiting evaluation by vascular surgery. Patient is offloading the sites with a surgical shoe and developed an offloading pad to take pressure off the forefoot TMA site as well as the plantar heel. Patient has been dressing the site daily with antibiotic ointment but recently received Ida in the mail. Patient has no other complaints at this time denies any rest pain. Patient recently had a stent placed in his heart. FORMERLY [facility], [facility] Medical History Acid reflux Acute osteomyelitis of left calcaneus Amputation at midfoot Anemia Atherosclerosis of coronary artery of [place] heart without angina pectoris Atrial fibrillation BPH (benign prostatic hyperplasia) Cellulitis of foot, left Chronic diastolic (congestive) heart failure Chronic kidney disease Erectile dysfunction Essential (primary) hypertension History of non-ST elevation myocardial infarction (NSTEMI) (08/26/16) Hyperlipidemia Inguinal hernia of right side without obstruction or gangrene Iron deficiency anemia Longstanding persistent atrial fibrillation Multinodular goiter Non-ischemic cardiomyopathy 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 Nonrheumatic aortic (valve) stenosis Paroxysmal atrial fibrillation Partial seizure disorder Peripheral vascular occlusive disease Pre-syncope Syncope Type 2 diabetes mellitus Type 2 diabetes mellitus with foot ulcer Urinary retention Urinary retention due to benign prostatic hyperplasia Ventral incisional hernia without obstruction or gangrene Home Medications atorvastatin 80 mg tablet 80 mg PO QHS cholesterol 07/21/18 [History Last Taken 05/23/19] lamotrigine 200 mg tablet 200 mg PO BID seizures 07/21/18 [History Last Taken 05/24/19 05:30] metformin 500 mg tablet,extended release 24 hr 1,000 mg PO BID diabetes 07/21/18 [History Last Taken 03/18/22] finasteride 5 mg tablet 5 mg PO DAILY prostate 08/07/20 [History Last Taken Unknown] magnesium oxide 400 mg PO DAILY supplement 08/07/20 [History Last Taken Unknown] nitroglycerin 0.4 mg sublingual tablet 0.4 mg sublingual Q5M PRN Chest Pain 08/07/20 [History Last Taken Unknown] metoprolol tartrate 75 mg tablet 75 mg PO BID heart/blood pressure 02/21/22 [History Last Taken Unknown] semaglutide 0.25 mg or 0.5 mg (2 mg/1.5 mL) subcutaneous pen injector (Ozempic) 0.25 mg subcut QWEEK 02/21/22 [History Last Taken Unknown] apixaban 5 mg tablet (Eliquis) 5 mg PO BID 03/25/22 [History Last Taken Unknown] clopidogrel 75 mg tablet 75 mg PO DAILY 03/25/22 [History Last Taken Unknown] isosorbide mononitrate 60 mg tablet,extended release 24 hr 60 mg PO DAILY 03/25/22 [History Last Taken Unknown] pantoprazole 40 mg tablet,delayed release 40 mg PO DAILY 03/25/22 [History Last Taken Unknown] potassium chloride 20 mEq tablet,extended release(part/cryst) 20 meq PO DAILY 03/25/22 [History Last Taken Unknown] tamsulosin 0.4 mg capsule 0.4 mg PO DAILY 03/25/22 [History Last Taken Unknown] dapagliflozin 5 mg tablet 10 mg PO DAILY diabetes 04/17/22 [History Last Taken Unknown] cholecalciferol (vitamin D3) 10 mcg (400 unit) capsule 04/30/22 [History Last Taken Unknown] Allergy/AdvReac Type Severity Reaction Status Date / Time carbamazepine [From Tegretol] Allergy Rash Verified 04/24/22 14:52 Family History Mother Cancer Heart disease Father Hypertension Diabetes Son Heart disease Surgical History History of angioplasty of peripheral vessel (06/28/14) History of atherectomy History of cardioversion (08/21/16) History of colonoscopy (01/2019) History of coronary artery stent placement (03/20/22) History of inguinal hernia repair 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) History of transurethral resection of prostate (01/2019) Status post biopsy of thyroid gland (09/2019) Social History household members: spouse Smoking Status: Former smoker quit date: 08/04/69 pack-years: 10 alcohol intake: current alcohol intake frequency: a few times a month substance use type: does not use ROS Constitutional Constitutional: Denies daytime sleepiness, increased appetite or weakness Eyes Eyes: Denies blindness, change in vision or dry eyes ENT HEENT: Denies dental pain, foreign body in nose or mouth lesions Cardiovascular Cardiovascular: Denies abdominal pain, arrhythmia on telemetry or chest pain with activity Respiratory/Chest Respiratory/Chest: Denies chest congestion, dyspnea on exertion or mouth breathing Vital Signs Vital Signs Vital Signs: 04/30/22 08:11 Temperature 97.5 F L Temperature Source Temporal Pulse Rate 98 Blood Pressure 111/65 Blood Pressure Mean 80 Blood Pressure Source Monitor Weight Weight: 63.957 kg Body Mass Index (BMI) 19.6 Physical Exam Narrative Patient is alert and oriented to person place and time. Patient ambulates assisted by walker and surgical shoe to the left foot. Vascular: Dorsalis pedis and posterior tibial pulses nonpalpable to the left lower extremity. Biphasic on Doppler examination. Atrophic skin changes noted. Neurologic: Light touch protective sensation absent to bilateral feet. Dermatologic: Full-thickness wounds x5 to left foot. First wound is along the medial aspect of the transmetatarsal incisional site there is 1 along the central aspect of the incisional site and one along the lateral aspect of the incisional site a fourth 1 along the plantar aspect of the first metatarsal shaft and one to the plantar lateral heel. The medial 3 wounds demonstrate necrotic wound bases upon debridement demonstrated healthy granular bleeding. No evidence of deep probing undermining. There is resolving erythema and edema to the foot. No evidence of purulent drainage. Plantar lateral heel wound demonstrates healthy granular base no deep probing undermining or signs of infection. Lateral incisional site wound demonstrates healthy granular base no deep probing undermining or signs of infection. These wounds demonstrate decent bleeding upon debridement. Musculoskeletal: Left TMA with ankle instability noted. Muscular strength 4 out of 5 to bilateral lower extremity compartments. No other gross deformities. Debridement Note Debridement Note Post-Debridement Measurements and Additional Note: Post-Debridement Measurements/Treatment JESSICA - Nurse 1 - General Ulcer Assessment Start: 04/30/22 08:10 Freq: Status: Active Protocol: WC.LOWEXT Activity Type Activity Date Activity User E-sign Co-sign Detail Recorded Client Recorded Date Recorded By Document 04/30/22 08:11 MN [id number] 04/30/22 08:29 MN 04/30/22 08:11 - Today's Visit Information Type of service Initial Visit Arrival Mode Ambulatory, Walker Patient Identification Verified (Name & Yes ) Patient Requires Transmission-Based No Precautions Finger Stick Blood Sugar(mg/dl) (if 163 indicated): Blood Sugar Stated by Patient Height and Weight Height 5 ft 11 in Weight 63.957 kg Weight in Pounds 141.0 lbs Body Mass Index (BMI) 19.6 BMI Classification Normal BSA - Sam 1.82 Vital Signs Temperature (97.8 F-99.1 F) 97.5 F L Temperature Source Temporal Pulse Rate (60-100) 98 Pulse Location Monitor Blood Pressure (90/60-120/80) 111/65 Blood Pressure Mean 80 Source Monitor History Since Last Visit- (Skip if this is Patient's initial visit) Left Footwear Regular Shoe Right Footwear Regular Shoe Pain Scale: 0-10 Numeric Is Patient Pain Free? Yes - Nurse 1 - General Ulcer Measurement Start: 04/30/22 08:10 Freq: Status: Active Protocol: Activity Type Activity Date Activity User E-sign Co-sign Detail Recorded Client Recorded Date Recorded By Document 04/30/22 08:11 MN [id number] 04/30/22 08:29 MN 04/30/22 08:11 Wound Center Nurse 1 #8 L plantar -Combined with other wound No -Current Size (cm) - Length 0.5 -Current Size (cm) - Width 0.7 -Current Size (cm) - Depth 0.1 -Total Square Cm 0.35 -Date of Last Picture (Recall this 04/30/22 field) -Photo Taken Yes -Tunneling No -Undermining/Tunneling No -Circular Undermining No -Change in Wound Grade/Stage No -Exudate Amt Medium -Exudate Type Serosanguineous -Wound Margin Distinct, Outline Attached -Granulation Amt None Present (0 %) -Granulation Quality N/A -Slough/Fibrin Yes -Necrosis Amt Large (67-100%) -Necrotic Tissue Type Adherent Slough -Structure Exposed N/A -Texture (Stacy-wound Skin Appearance) No Abnormality, Assessed -Moisture (Stacy-wound Skin Appearance) No Abnormality, Assessed -Color (Stacy-wound Skin Appearance) No Abnormality, Assessed -Temperature (Stacy-wound Skin No Abnormality Appearance) (Pt Warm) -Tenderness on Palpation (Stacy-wound No Skin Appearance) -Ulcer Cleansing Soap and Water -Foul Odor after Cleansing No -Anesthetic Used 5% Lidocaine Gel #7 L med. foot -Combined with other wound No -Current Size (cm) - Length 2 -Current Size (cm) - Width 0.6 -Current Size (cm) - Depth 0.1 -Total Square Cm 1.2 -Date of Last Picture (Recall this 04/30/22 field) -Photo Taken Yes -Tunneling No -Undermining/Tunneling No -Circular Undermining No -Change in Wound Grade/Stage No -Exudate Amt None Present -Wound Margin Distinct, Outline Attached -Granulation Amt None Present (0 %) -Granulation Quality N/A -Slough/Fibrin Yes -Necrosis Amt Medium (34-66%) -Necrotic Tissue Type Adherent Slough -Structure Exposed N/A -Texture (Stacy-wound Skin Appearance) No Abnormality, Assessed -Moisture (Stacy-wound Skin Appearance) No Abnormality, Assessed -Color (Stacy-wound Skin Appearance) No Abnormality, Assessed -Temperature (Stacy-wound Skin No Abnormality Appearance) (Pt Warm) -Tenderness on Palpation (Stacy-wound No Skin Appearance) -Ulcer Cleansing Soap and Water -Foul Odor after Cleansing No -Anesthetic Used 5% Lidocaine Gel #6 L TMA cluster -Combined with other wound No -Current Size (cm) - Length 0.3 -Current Size (cm) - Width 3.3 -Current Size (cm) - Depth 0.1 -Total Square Cm 0.99 -Date of Last Picture (Recall this 04/30/22 field) -Photo Taken Yes -Epithelialization None Present -Tunneling No -Undermining/Tunneling No -Circular Undermining No -Change in Wound Grade/Stage No -Exudate Amt Medium -Exudate Type Serosanguineous -Wound Margin Distinct, Outline Attached -Granulation Amt None Present (0 %) -Granulation Quality N/A -Slough/Fibrin Yes -Necrosis Amt Large (67-100%) -Necrotic Tissue Type Adherent Slough -Structure Exposed N/A -Texture (Stacy-wound Skin Appearance) No Abnormality, Assessed -Moisture (Stacy-wound Skin Appearance) No Abnormality, Assessed -Color (Stacy-wound Skin Appearance) No Abnormality, Assessed -Temperature (Stacy-wound Skin No Abnormality Appearance) (Pt Warm) -Tenderness on Palpation (Stacy-wound No Skin Appearance) -Ulcer Cleansing Soap and Water -Foul Odor after Cleansing No -Anesthetic Used 5% Lidocaine Gel #5 L lateral foot cluster -Combined with other wound No -Current Size (cm) - Length 2 -Current Size (cm) - Width 0.4 -Current Size (cm) - Depth 0.1 -Total Square Cm 0.8 -Photo Taken No -Tunneling No -Undermining/Tunneling No -Circular Undermining No -Change in Wound Grade/Stage No -Exudate Amt None Present -Exudate Type Serosanguineous -Wound Margin Distinct, Outline Attached -Granulation Amt Medium (34-66%) -Granulation Quality [place],Red -Slough/Fibrin No -Necrosis Amt Medium (34-66%) -Necrotic Tissue Type Adherent Slough -Structure Exposed N/A -Texture (Stacy-wound Skin Appearance) No Abnormality, Assessed -Moisture (Stacy-wound Skin Appearance) No Abnormality, Assessed -Color (Tsacy-wound Skin Appearance) No Abnormality, Assessed -Temperature (Stacy-wound Skin No Abnormality Appearance) (Pt Warm) -Tenderness on Palpation (Stacy-wound No Skin Appearance) -Ulcer Cleansing Soap and Water -Foul Odor after Cleansing No -Anesthetic Used 5% Lidocaine Gel #4 L lateral heel -Combined with other wound No -Current Size (cm) - Length 1.1 -Current Size (cm) - Width 0.9 -Current Size (cm) - Depth 0.3 -Total Square Cm 0.99 -Date of Last Picture (Recall this 04/30/22 field) -Photo Taken Yes -Tunneling No -Undermining/Tunneling No -Circular Undermining No -Change in Wound Grade/Stage No -Exudate Amt Medium -Exudate Type Serosanguineous -Wound Margin Distinct, Outline Attached -Granulation Amt Medium (34-66%) -Granulation Quality N/A,[place],Red -Slough/Fibrin No -Necrosis Amt None Present (0 %) -Structure Exposed N/A -Texture (Stacy-wound Skin Appearance) Assessed,Callus -Moisture (Stacy-wound Skin Appearance) No Abnormality, Assessed -Color (Stacy-wound Skin Appearance) No Abnormality, Assessed -Temperature (Stacy-wound Skin No Abnormality Appearance) (Pt Warm) -Tenderness on Palpation (Stacy-wound No Skin Appearance) -Ulcer Cleansing Soap and Water -Foul Odor after Cleansing No -Anesthetic Used 5% Lidocaine Gel Lower Limb Edema Present No Left Calf (cm) 27.6 Left Ankle (cm) 19.5 WC - Nurse 2 - General Ulcer CM Notes Start: 04/30/22 08:10 Freq: Status: Active Protocol: Activity Type Activity Date Activity User E-sign Co-sign Detail Recorded Client Recorded Date Recorded By Document 04/30/22 08:57 OPAL [id number] 04/30/22 09:07 OPAL 04/30/22 08:57 Wound Center Nurse 2 #8 L plantar -Time 09:00 -Correct Patient Yes -Correct Side, Site, Position Yes -Correct Procedure Yes -Procedure Performed Yes -Type of Procedure Debridement -Clinical Debridement Subcutaneous -Tissue Removed Subcutaneous -Post Debridement (cm) - Length 0.6 -Post Debridement (cm) - Width 0.7 -Post Debridement (cm) - Depth 0.1 -Total Square (Post) (cm) 0.42 -Area of Debridement (cm) - Length 0.6 -Area of Debridement (cm) - Width 0.7 -Total Square (Area) (cm) 0.42 -Tunneling No -Undermining/Tunneling No -Circular Undermining No -Wound/Ulcer Outcome Not Healed -Ulcer Cleansing Rinsed/ Irrigated with Saline -Foul Odor after Cleansing No -Bioengineered Tissue No -Bleeding Controlled with Pressure -Treatment Response Procedure Tolerated Well -Offloading Yes -Type of Offloading Surgical Shoe -Debridement - Subq, 1st 20sq cm No #7 L med. foot -Time 09:02 -Correct Patient Yes -Correct Side, Site, Position Yes -Correct Procedure Yes -Procedure Performed Yes -Type of Procedure Debridement -Clinical Debridement Subcutaneous -Tissue Removed Subcutaneous -Post Debridement (cm) - Length 2.0 -Post Debridement (cm) - Width 0.7 -Post Debridement (cm) - Depth 0.1 -Total Square (Post) (cm) 1.40 -Area of Debridement (cm) - Length 2.0 -Area of Debridement (cm) - Width 0.7 -Total Square (Area) (cm) 1.40 -Tunneling No -Undermining/Tunneling No -Circular Undermining No -Wound/Ulcer Outcome Not Healed -Ulcer Cleansing Rinsed/ Irrigated with Saline -Foul Odor after Cleansing No -Bioengineered Tissue No -Bleeding Controlled with Pressure -Treatment Response Procedure Tolerated Well -Offloading Yes -Type of Offloading Surgical Shoe -Debridement - Subq, 1st 20sq cm No #6 L TMA cluster -Time 09:02 -Correct Patient Yes -Correct Side, Site, Position Yes -Correct Procedure Yes -Procedure Performed Yes -Type of Procedure Debridement -Clinical Debridement Subcutaneous -Tissue Removed Subcutaneous -Post Debridement (cm) - Length 0.4 -Post Debridement (cm) - Width 3.4 -Post Debridement (cm) - Depth 0.1 -Total Square (Post) (cm) 1.36 -Area of Debridement (cm) - Length 0.4 -Area of Debridement (cm) - Width 3.4 -Total Square (Area) (cm) 1.36 -Tunneling No -Undermining/Tunneling No -Circular Undermining No -Wound/Ulcer Outcome Not Healed -Ulcer Cleansing Rinsed/ Irrigated with Saline -Foul Odor after Cleansing No -Bioengineered Tissue No -Bleeding Controlled with Pressure -Treatment Response Procedure Tolerated Well -Offloading Yes -Type of Offloading Surgical Shoe -Debridement - Subq, 1st 20sq cm No #5 L lateral foot cluster -Time 09:03 -Correct Patient Yes -Correct Side, Site, Position Yes -Correct Procedure Yes -Procedure Performed Yes -Type of Procedure Debridement -Clinical Debridement Subcutaneous -Tissue Removed Subcutaneous -Post Debridement (cm) - Length 2.0 -Post Debridement (cm) - Width 0.5 -Post Debridement (cm) - Depth 0.1 -Total Square (Post) (cm) 1.00 -Area of Debridement (cm) - Length 2.0 -Area of Debridement (cm) - Width 0.5 -Total Square (Area) (cm) 1.00 -Tunneling No -Undermining/Tunneling No -Circular Undermining No -Wound/Ulcer Outcome Not Healed -Ulcer Cleansing Rinsed/ Irrigated with Saline -Foul Odor after Cleansing No -Bioengineered Tissue No -Bleeding Controlled with Pressure -Treatment Response Procedure Tolerated Well -Offloading Yes -Type of Offloading Surgical Shoe -Debridement - Subq, 1st 20sq cm No #4 L lateral heel -Time 09:03 -Correct Patient Yes -Correct Side, Site, Position Yes -Correct Procedure Yes -Procedure Performed Yes -Type of Procedure Debridement -Clinical Debridement Subcutaneous -Tissue Removed Subcutaneous -Post Debridement (cm) - Length 1.1 -Post Debridement (cm) - Width 1 -Post Debridement (cm) - Depth 0.3 -Total Square (Post) (cm) 1.1 -Area of Debridement (cm) - Length 1.1 -Area of Debridement (cm) - Width 1 -Total Square (Area) (cm) 1.1 -Tunneling No -Undermining/Tunneling No -Circular Undermining No -Wound/Ulcer Outcome Not Healed -Ulcer Cleansing Rinsed/ Irrigated with Saline -Foul Odor after Cleansing No -Bioengineered Tissue No -Bleeding Controlled with Pressure -Treatment Response Procedure Tolerated Well -Offloading Yes -Type of Offloading Surgical Shoe -Debridement - Subq, 1st 20sq cm Yes Pain Scale: 0-10 Numeric Is Patient Pain Free? Yes WC - Nurse 3 - General Ulcer D/C NN Start: 04/30/22 08:10 Freq: Status: Active Protocol: Activity Type Activity Date Activity User E-sign Co-sign Detail Recorded Client Recorded Date Recorded By Document 04/30/22 09:26 PABLO [id number] 04/30/22 09:28 PABLO 04/30/22 09:26 Wound Care Nurse 3 #8 L plantar -Ulcer Cleansing Rinsed/ Irrigated with Saline -Foul Odor after Cleansing No -Negative Pressure Wound Therapy N/A -Primary Dressing Applied Promogran Ida Matter -Primary Dressing Covered/Secured with Dry Gauze & Roll Gauze, Secured with Tape -Promogran Ida Matter 1 #7 L med. foot -Ulcer Cleansing Rinsed/ Irrigated with Saline -Foul Odor after Cleansing No -Negative Pressure Wound Therapy N/A -Primary Dressing Applied Promogran Ida Matter -Primary Dressing Covered/Secured with Dry Gauze & Roll Gauze, Secured with Tape -Promogran Ida Matter 0 #6 L TMA cluster -Ulcer Cleansing Rinsed/ Irrigated with Saline -Foul Odor after Cleansing No -Negative Pressure Wound Therapy N/A -Primary Dressing Applied Promogran Ida Matter -Promogran Ida Matter 0 #5 L lateral foot cluster -Ulcer Cleansing Rinsed/ Irrigated with Saline -Foul Odor after Cleansing No -Negative Pressure Wound Therapy N/A -Primary Dressing Applied Promogran Ida Matter -Promogran Ida Matter 0 #4 L lateral heel -Ulcer Cleansing Rinsed/ Irrigated with Saline -Foul Odor after Cleansing No -Negative Pressure Wound Therapy N/A -Primary Dressing Applied Promogran Ida Matter -Promogran Ida Matter 0 Pain Scale: 0-10 Numeric Is Patient Pain Free? Yes WC - Visit Discharge Discharge Condition Stable Ambulatory Status Ambulatory, Walker Transportation Private Auto Accompanied by Medication Reconcilliation completed & Yes provided to patient/care provider Clinical Summary of Care Provided Yes Assessment/Plan Assessment/Plan (1) Type 2 diabetes mellitus with diabetic polyneuropathy: CODE(S): E11.42 - Type 2 diabetes mellitus with diabetic polyneuropathy (2) Peripheral vascular disease, unspecified: CODE(S): I73.9 - Peripheral vascular disease, unspecified (3) Non-pressure chronic ulcer of other part of left foot with fat layer exposed: CODE(S): L97.522 - Non-pressure chronic ulcer of other part of left foot with fat layer exposed PLAN: Exam performed. Radiographs taken in the office prior to today's visit demonstrate no signs of deep infection. Patient is currently taking antibiotics for doxycycline and ciprofloxacin for staff aureus Klebsiella oxytocin and various other gram-negative organisms. This was confirmed to correlate with the culture and sensitivity that was taken in my office 2 weeks prior. Patient's infection noted to be improving at this time we will complete a 2-week course. Patient offloading site with surgical shoe and offloading pad. Discussed additional offloading including complete nonweightbearing with knee scooter walker or total contact casting. Patient is awaiting vascular evaluation we will await vascular evaluation until we increased offloading. Patient's left foot wounds x5 were excisionally debrided down to including level of subcutaneous tissue of all nonviable tissue using a 5 mm dermal curette without incident. Patient consented procedure tolerated procedure well hemostasis obtained with light compression. No anesthesia due to neuropathy. Healthy granular bleeding noted. Arterial studies suggest diminished blood flow to left lower extremity possibly contributing to poor healing status. Will consider additional nutritional supplementation, advanced wound care products, advancement of offloading the left foot. Patient at this time will dressed site with Ida DSD and follow-up in 1 week.
== END 2022-05-03 23:59 | disposition home or self-care (01) ==
LOC: WC 07:55
PROVIDERS: PCP Family Medicine; Visit Provider Podiatrist
DX: E11.621 Type 2 diabetes mellitus with foot ulcer (principal); E11.51 Type 2 diabetes mellitus with diabetic peripheral angiopathy without gangrene; Z89.432 Acquired absence of left foot; L97.429 Non-pressure chronic ulcer of left heel and midfoot with unspecified severity; L97.522 Non-pressure chronic ulcer of other part of left foot with fat layer exposed; M86.172 Other acute osteomyelitis, left ankle and foot; E11.69 Type 2 diabetes mellitus with other specified complication; E11.42 Type 2 diabetes mellitus with diabetic polyneuropathy; I48.11 Longstanding persistent atrial fibrillation; Z87.891 Personal history of nicotine dependence; I25.10 Atherosclerotic heart disease of native coronary artery without angina pectoris; Z79.899 Other long term (current) drug therapy; Z79.01 Long term (current) use of anticoagulants; Z79.02 Long term (current) use of antithrombotics/antiplatelets; K21.9 Gastro-esophageal reflux disease without esophagitis; N40.1 Benign prostatic hyperplasia with lower urinary tract symptoms; I10 Essential (primary) hypertension; I25.2 Old myocardial infarction; E78.5 Hyperlipidemia, unspecified; R33.8 Other retention of urine; Z79.84 Long term (current) use of oral hypoglycemic drugs
CPT/HCPCS: 11042; 99213; G0463

== ENCOUNTER 2022-05-28 11:00 | Outpatient (RCR) | payer MEDICARE, OTHER, SELFPAY ==
[2022-05-04 01:50] VITALS: BP 111/65; PULSE 98; TEMP 36.4; BMI 19.6
[2022-05-07 10:35] VITALS: BP 119/71; PULSE 98; RESP 18; TEMP 36.4; BMI 19.6
--- NOTE | 2022-05-07 11:20 | PN.PCM_ITS ---
History of Present Illness Date of Service: 05/07/22 Chief Complaint: Left heel and lateral foot ulcerations osteomyelitis Peripheral vascular disease History of Wound: 77-year-old male seen for new onset ulcerations to plantar left heel and left forefoot. 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 Patient had all of the wounds healed but noted a recent fall and now has 5 wounds. He denies constitutional symptoms currently. Patient is awaiting evaluation by vascular surgery. Patient is offloading the sites with a surgical shoe and developed an offloading pad to take pressure off the forefoot TMA site as well as the plantar heel. Patient has been dressing the site daily with antibiotic ointment but recently received Ida in the mail. Patient has no other complaints at this time denies any rest pain. Notes improvement in his wounds. Objective Data Objective Data Vital Signs: Vital Signs Temp Pulse Resp BP O2 Del Method 97.6 F L 98 18 119/71 Room Air 05/07/22 10:35 05/07/22 10:35 05/07/22 10:35 05/07/22 10:35 05/07/22 10:35 Oxygen Delivery Method Room Air Weight: 63.957 kg Body Mass Index (BMI) 19.6 Physical Exam Narrative Patient is alert and oriented to person place and time. Patient ambulates assisted by walker and surgical shoe to the left foot. Vascular: Dorsalis pedis and posterior tibial pulses nonpalpable to the left lower extremity. Biphasic on Doppler examination. Atrophic skin changes noted. Neurologic: Light touch protective sensation absent to bilateral feet. Dermatologic: Full-thickness wounds x5 to left foot. First wound is along the medial aspect of the transmetatarsal incisional site there is 1 along the jose tral aspect of the incisional site and one along the lateral aspect of the incisional site a fourth 1 along the plantar aspect of the first metatarsal shaft and one to the plantar lateral heel. The medial 3 wounds demonstrate necrotic wound bases upon debridement demonstrated healthy granular bleeding. No evidence of deep probing undermining. There is resolving erythema and edema to the foot. No evidence of purulent drainage. Plantar lateral heel wound demonstrates healthy granular base no deep probing undermining or signs of infection. Lateral incisional site wound demonstrates healthy granular base no deep probing undermining or signs of infection. These wounds demonstrate decent bleeding upon debridement with clean granular bases. Musculoskeletal: Left TMA with ankle instability noted. Muscular strength 4 out of 5 to bilateral lower extremity compartments. No other gross deformities. Debridement Note Debridement Note Post-Debridement Measurements and Additional Note: Post-Debridement Measurements/Treatment - Nurse 1 - General Ulcer Assessment Start: 05/07/22 10:35 Freq: Status: Active Protocol: [email or web address] Activity Type Activity Date Activity User E-sign Co-sign Detail Recorded Client Recorded Date Recorded By Document 05/07/22 10:35 MW [id number] 05/07/22 10:46 MW 05/07/22 10:35 WC - Today's Visit Information Type of service Follow-up Visit (Physician/VP ANALYSIS ) Arrival Mode Ambulatory Transfer Assistance None Accompanied by Patient Identification Verified (Name & Yes ) Patient Requires Transmission-Based No Precautions Finger Stick Blood Sugar(mg/dl) (if 163 indicated): Blood Sugar Stated by Patient Height and Weight Body Mass Index (BMI) 19.6 BMI Classification Normal Vital Signs Temperature (97.8 F-99.1 F) 97.6 F L Temperature Source Temporal Pulse Rate (60-100) 98 Pulse Location Monitor Respiratory Rate (12-18) 18 Respiratory rate source Observation Oxygen Delivery Method Room Air Blood Pressure (90/60-120/80) 119/71 Blood Pressure Mean (mm Hg) 87 Source Monitor Position Sitting Blood Pressure Location Right Arm History Since Last Visit- (Skip if this is Patient's initial visit) Have you changed medications since your No last visit? Any new allergies or adverse reactions No Had a fall/change in ADL's that may No increase risk of falls Signs or symptoms of abuse and/or No neglect since last visit Have you been in the hospital since your No last visit? Has dressing in place as prescribed Yes Has compression in place as prescribed Yes Has offloadiing in place as prescribed N/A Experienced any changes in pain level or No management Left Footwear Surgical Shoe with pressure relief insole Right Footwear Regular Shoe Pain Scale: 0-10 Numeric Is Patient Pain Free? Yes - Nurse 1 - General Ulcer Measurement Start: 05/07/22 10:35 Freq: Status: Active Protocol: Activity Type Activity Date Activity User E-sign Co-sign Detail Recorded Client Recorded Date Recorded By Document 05/07/22 10:35 MW [id number] 05/07/22 10:46 MW 05/07/22 10:35 Wound Center Nurse 1 #8 L plantar -Combined with other wound No -Current Size (cm) - Length 0.1 -Current Size (cm) - Width 0.1 -Current Size (cm) - Depth 0.1 -Total Square Cm 0.01 -Date of Last Picture (Recall this 05/07/22 field) -Photo Taken Yes -Epithelialization None Present -Tunneling No -Undermining/Tunneling No -Circular Undermining No -Exudate Amt Small -Exudate Type Serosanguineous -Wound Margin Flat & Intact -Granulation Amt None Present (0 %) -Granulation Quality N/A -Slough/Fibrin Yes -Necrosis Amt Large (67-100%) -Necrotic Tissue Type Adherent Slough -Structure Exposed N/A -Texture (Stacy-wound Skin Appearance) No Abnormality, Assessed -Moisture (Stacy-wound Skin Appearance) Assessed,Dry/ Scaly -Color (Stacy-wound Skin Appearance) No Abnormality, Assessed -Temperature (Stacy-wound Skin No Abnormality Appearance) (Pt Warm) -Tenderness on Palpation (Stacy-wound No Skin Appearance) -Ulcer Cleansing Soap and Water -Foul Odor after Cleansing No -Anesthetic Used 4% Lidocaine Solution #7 L med. foot -Combined with other wound No -Current Size (cm) - Length 1.8 -Current Size (cm) - Width 0.8 -Current Size (cm) - Depth 0.2 -Total Square Cm 1.44 -Date of Last Picture (Recall this 05/07/22 field) -Photo Taken Yes -Epithelialization None Present -Tunneling No -Undermining/Tunneling No -Circular Undermining No -Exudate Amt Medium -Exudate Type Serosanguineous -Wound Margin Flat & Intact -Granulation Amt Medium (34-66%) -Granulation Quality Emerald -Slough/Fibrin Yes -Necrosis Amt Medium (34-66%) -Necrotic Tissue Type Adherent Slough -Structure Exposed N/A -Tenderness on Palpation (Stacy-wound No Skin Appearance) -Ulcer Cleansing Soap and Water -Foul Odor after Cleansing No -Anesthetic Used 4% Lidocaine Solution #6 L TMA cluster -Combined with other wound No -Current Size (cm) - Length 0.1 -Current Size (cm) - Width 0.1 -Current Size (cm) - Depth 0.1 -Total Square Cm 0.01 -Date of Last Picture (Recall this 05/07/22 field) -Photo Taken Yes -Epithelialization None Present -Tunneling No -Undermining/Tunneling No -Circular Undermining No -Exudate Amt Medium -Exudate Type Serosanguineous -Wound Margin Flat & Intact -Granulation Amt None Present (0 %) -Granulation Quality N/A -Slough/Fibrin Yes -Necrosis Amt Large (67-100%) -Necrotic Tissue Type Adherent Slough -Structure Exposed N/A -Texture (Stacy-wound Skin Appearance) Assessed, Scarring -Moisture (Stacy-wound Skin Appearance) Assessed,Dry/ Scaly -Color (Stacy-wound Skin Appearance) No Abnormality, Assessed -Temperature (Stacy-wound Skin No Abnormality Appearance) (Pt Warm) -Tenderness on Palpation (Stacy-wound No Skin Appearance) -Ulcer Cleansing Soap and Water -Foul Odor after Cleansing No -Anesthetic Used 4% Lidocaine Solution #5 L lateral foot cluster -Combined with other wound No -Current Size (cm) - Length 0.9 -Current Size (cm) - Width 0.2 -Current Size (cm) - Depth 0.1 -Total Square Cm 0.18 -Date of Last Picture (Recall this 05/07/22 field) -Photo Taken Yes -Epithelialization None Present -Tunneling No -Undermining/Tunneling No -Circular Undermining No -Exudate Amt Small -Exudate Type Serosanguineous -Wound Margin Flat & Intact -Granulation Amt None Present (0 %) -Granulation Quality N/A -Slough/Fibrin Yes -Necrosis Amt Large (67-100%) -Necrotic Tissue Type Adherent Slough -Structure Exposed N/A -Texture (Stacy-wound Skin Appearance) Assessed, Scarring -Moisture (Stacy-wound Skin Appearance) Assessed,Dry/ Scaly -Color (Stacy-wound Skin Appearance) No Abnormality, Assessed -Temperature (Stacy-wound Skin No Abnormality Appearance) (Pt Warm) -Tenderness on Palpation (Stacy-wound No Skin Appearance) -Ulcer Cleansing Soap and Water -Foul Odor after Cleansing No -Anesthetic Used 4% Lidocaine Solution #4 L lateral heel -Combined with other wound No -Current Size (cm) - Length 3.5 -Current Size (cm) - Width 1.9 -Current Size (cm) - Depth 0.3 -Total Square Cm 6.65 -Date of Last Picture (Recall this 05/07/22 field) -Photo Taken Yes -Epithelialization None Present -Tunneling No -Undermining/Tunneling No -Circular Undermining No -Exudate Amt Small -Exudate Type Serosanguineous -Wound Margin Flat & Intact -Granulation Amt Small (1-33%) -Granulation Quality Emerald -Slough/Fibrin Yes -Necrosis Amt Large (67-100%) -Necrotic Tissue Type Adherent Slough -Structure Exposed N/A -Texture (Stacy-wound Skin Appearance) Assessed, Scarring -Moisture (Stacy-wound Skin Appearance) Assessed,Dry/ Scaly -Color (Stacy-wound Skin Appearance) Assessed -Temperature (Stacy-wound Skin No Abnormality Appearance) (Pt Warm) -Tenderness on Palpation (Stacy-wound No Skin Appearance) -Ulcer Cleansing Soap and Water -Foul Odor after Cleansing No -Anesthetic Used 4% Lidocaine Solution Lower Limb Edema Present No WC - Nurse 2 - General Ulcer CM Notes Start: 05/07/22 10:35 Freq: Status: Active Protocol: Activity Type Activity Date Activity User E-sign Co-sign Detail Recorded Client Recorded Date Recorded By Document 05/07/22 11:03 OPAL [id number] 05/07/22 11:12 OPAL 05/07/22 11:03 Wound Center Nurse 2 #8 L plantar -Time 11:03 -Correct Patient Yes -Correct Side, Site, Position Yes -Correct Procedure Yes -Procedure Performed Yes -Type of Procedure Debridement -Clinical Debridement Subcutaneous -Tissue Removed Subcutaneous -Post Debridement (cm) - Length 0.2 -Post Debridement (cm) - Width 0.2 -Post Debridement (cm) - Depth 0.1 -Total Square (Post) (cm) 0.04 -Area of Debridement (cm) - Length 0.2 -Area of Debridement (cm) - Width 0.2 -Total Square (Area) (cm) 0.04 -Tunneling No -Undermining/Tunneling No -Circular Undermining No -Wound/Ulcer Outcome Not Healed -Ulcer Cleansing Rinsed/ Irrigated with Saline -Foul Odor after Cleansing No -Bioengineered Tissue No -Bleeding Controlled with Pressure -Treatment Response Procedure Tolerated Well -Offloading Yes -Type of Offloading Surgical Shoe -Debridement - Subq, 1st 20sq cm Yes #7 L med. foot -Time 11:04 -Correct Patient Yes -Correct Side, Site, Position Yes -Correct Procedure Yes -Procedure Performed Yes -Type of Procedure Debridement -Clinical Debridement Subcutaneous -Tissue Removed Subcutaneous -Post Debridement (cm) - Length 1.8 -Post Debridement (cm) - Width 0.9 -Post Debridement (cm) - Depth 0.2 -Total Square (Post) (cm) 1.62 -Area of Debridement (cm) - Length 1.8 -Area of Debridement (cm) - Width 0.9 -Total Square (Area) (cm) 1.62 -Tunneling No -Undermining/Tunneling No -Circular Undermining No -Wound/Ulcer Outcome Not Healed -Ulcer Cleansing Rinsed/ Irrigated with Saline -Foul Odor after Cleansing No -Bioengineered Tissue No -Bleeding Controlled with Pressure -Treatment Response Procedure Tolerated Well -Offloading Yes -Type of Offloading Surgical Shoe -Debridement - Subq, 20sq cm No #6 L TMA cluster -Time 11:04 -Correct Patient Yes -Correct Side, Site, Position Yes -Correct Procedure Yes -Procedure Performed Yes -Type of Procedure Debridement -Clinical Debridement Subcutaneous -Tissue Removed Subcutaneous -Post Debridement (cm) - Length 0.2 -Post Debridement (cm) - Width 0.2 -Post Debridement (cm) - Depth 0.1 -Total Square (Post) (cm) 0.04 -Area of Debridement (cm) - Length 0.2 -Area of Debridement (cm) - Width 0.2 -Total Square (Area) (cm) 0.04 -Tunneling No -Undermining/Tunneling No -Circular Undermining No -Wound/Ulcer Outcome Not Healed -Ulcer Cleansing Rinsed/ Irrigated with Saline -Foul Odor after Cleansing No -Bioengineered Tissue No -Bleeding Controlled with Pressure -Treatment Response Procedure Tolerated Well -Offloading Yes -Type of Offloading Surgical Shoe -Debridement - Subq, 1st 20sq cm No #5 L lateral foot cluster -Time 11:05 -Correct Patient Yes -Correct Side, Site, Position Yes -Correct Procedure Yes -Procedure Performed Yes -Type of Procedure Debridement -Clinical Debridement Subcutaneous -Tissue Removed Subcutaneous -Post Debridement (cm) - Length 1 -Post Debridement (cm) - Width 0.2 -Post Debridement (cm) - Depth 0.1 -Total Square (Post) (cm) 0.2 -Area of Debridement (cm) - Length 1.0 -Area of Debridement (cm) - Width 0.2 -Total Square (Area) (cm) 0.20 -Tunneling No -Undermining/Tunneling No -Circular Undermining No -Wound/Ulcer Outcome Not Healed -Ulcer Cleansing Rinsed/ Irrigated with Saline -Foul Odor after Cleansing No -Bioengineered Tissue No -Bleeding Controlled with Pressure -Treatment Response Procedure Tolerated Well -Offloading Yes -Type of Offloading Surgical Shoe -Debridement - Subq, 1st 20sq cm No #4 L lateral heel -Time 11:05 -Correct Patient Yes -Correct Side, Site, Position Yes -Correct Procedure Yes -Procedure Performed Yes -Type of Procedure Debridement -Clinical Debridement Subcutaneous -Tissue Removed Subcutaneous -Post Debridement (cm) - Length 3.5 -Post Debridement (cm) - Width 2 -Post Debridement (cm) - Depth 0.3 -Total Square (Post) (cm) 7.0 -Area of Debridement (cm) - Length 3.5 -Area of Debridement (cm) - Width 2 -Total Square (Area) (cm) 7.0 -Tunneling No -Undermining/Tunneling No -Circular Undermining No -Wound/Ulcer Outcome Not Healed -Ulcer Cleansing Rinsed/ Irrigated with Saline -Foul Odor after Cleansing No -Bioengineered Tissue No -Bleeding Controlled with Pressure -Treatment Response Procedure Tolerated Well -Offloading Yes -Type of Offloading Surgical Shoe -Debridement - Subq, 1st 20sq cm No Pain Scale: 0-10 Numeric Is Patient Pain Free? Yes Assessment/Plan Assessment/Plan (1) Type 2 diabetes mellitus with diabetic polyneuropathy: CODE(S): E11.42 - Type 2 diabetes mellitus with diabetic polyneuropathy (2) Peripheral vascular disease, unspecified: CODE(S): I73.9 - Peripheral vascular disease, unspecified (3) Non-pressure chronic ulcer of other part of left foot with fat layer exposed: CODE(S): L97.522 - Non-pressure chronic ulcer of other part of left foot with fat layer exposed PLAN: Exam performed. Patient to complete course of p.o. antibiotics. Infection resolving. Patient offloading site with surgical shoe and offloading pad. Discussed additional offloading including complete nonweightbearing with knee scooter walker or total contact casting. Patient is awaiting vascular evaluation we will await vascular evaluation until we increased offloading. Patient's left foot wounds x5 were excisionally debrided down to including level of subcutaneous tissue of all nonviable tissue using a 5 mm dermal curette without incident. Patient consented procedure tolerated procedure well hemostasis obtained with light compression. No anesthesia due to neuropathy. Healthy granular bleeding noted. Arterial studies suggest diminished blood flow to left lower extremity possibly contributing to poor healing status. Will consider additional nutritional supplementation, advanced wound care products, advancement of offloading the left foot. Patient at this time will dressed site with Ida DSD and follow-up in 1 week.
[2022-05-14 09:16] VITALS: BP 128/80; PULSE 90; RESP 18; TEMP 35.3; BMI 19.6
--- NOTE | 2022-05-14 09:50 | PCM.WC.PN ---
History of Present Illness Date of Service: 05/14/22 Chief Complaint: Left heel and lateral foot ulcerations osteomyelitis Peripheral vascular disease History of Wound: 77-year-old male seen for new onset ulcerations to plantar left heel and left forefoot. 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 Patient had all of the wounds healed but noted a recent fall and now has 5 wounds. He denies constitutional symptoms currently. Patient is awaiting evaluation by vascular surgery. Patient is offloading the sites with a surgical shoe and developed an offloading pad to take pressure off the forefoot TMA site as well as the plantar heel. Patient has been dressing the site daily with antibiotic ointment but recently received Jj in the mail. Patient has no other complaints at this time denies any rest pain. Notes improvement in his wounds. Objective Data Objective Data Vital Signs: Vital Signs Temp Pulse Resp BP O2 Del Method 95.6 F L 90 18 128/80 H Room Air 05/14/22 09:16 05/14/22 09:16 05/14/22 09:16 05/14/22 09:16 05/14/22 09:16 Oxygen Delivery Method Room Air Weight: 63.957 kg Body Mass Index (BMI) 19.6 Physical Exam Narrative Patient is alert and oriented to person place and time. Patient ambulates assisted by walker and surgical shoe to the left foot. Vascular: Dorsalis pedis and posterior tibial pulses nonpalpable to the left lower extremity. Biphasic on Doppler examination. Atrophic skin changes noted. Neurologic: Light touch protective sensation absent to bilateral feet. Dermatologic: Full-thickness wounds x5 to left foot. First wound is along the medial aspect of the transmetatarsal incisional site there is 1 along the central aspect of the incisional site and one along the lateral aspect of the incisional site a fourth 1 along the plantar aspect of the first metatarsal shaft and one to the plantar lateral heel. The medial 3 wounds demonstrate necrotic wound bases upon debridement demonstrated healthy granular bleeding. No evidence of deep probing undermining. There is resolving erythema and edema to the foot. No evidence of purulent drainage. Plantar lateral heel wound demonstrates healthy granular base no deep probing undermining or signs of infection. Lateral incisional site wound demonstrates healthy granular base no deep probing undermining or signs of infection. These wounds demonstrate decent bleeding upon debridement with clean granular bases. Musculoskeletal: Left TMA with ankle instability noted. Muscular strength 4 out of 5 to bilateral lower extremity compartments. No other gross deformities. Debridement Note Debridement Note Post-Debridement Measurements and Additional Note: Post-Debridement Measurements/Treatment WC - Nurse 1 - General Ulcer Assessment Start: 05/07/22 10:35 Freq: Status: Active Protocol: [email or web address] Activity Type Activity Date Activity User E-sign Co-sign Detail Recorded Client Recorded Date Recorded By Document 05/07/22 10:35 MW [id number] 05/07/22 10:46 MW Document 05/14/22 09:16 MW [id number] 05/14/22 09:26 MW 05/07/22 05/14/22 10:35 09:16 WC - Today's Visit Information Type of service Follow-up Visit Follow-up Visit (Physician/TRIBUNAL MEMBER (Physician/TRIBUNAL MEMBER ) ) Arrival Mode Ambulatory Ambulatory Transfer Assistance None None Accompanied by Patient Identification Verified (Name & Yes Yes ) Patient Requires Transmission-Based No No Precautions Safety Precautions NA Finger Stick Blood Sugar(mg/dl) (if 163 182 indicated): Blood Sugar Stated by Stated by Patient Patient Height and Weight Body Mass Index (BMI) 19.6 19.6 BMI Classification Normal Normal Vital Signs Temperature (97.8 F-99.1 F) 97.6 F L 95.6 F L Temperature Source Temporal Temporal Pulse Rate (60-100) 98 90 Pulse Location Monitor Monitor Respiratory Rate (12-18) 18 18 Respiratory rate source Observation Observation Oxygen Delivery Method Room Air Room Air Blood Pressure (90/60-120/80) 119/71 128/80 H Blood Pressure Mean (mm Hg) 87 96 Source Monitor Monitor Position Sitting Sitting Blood Pressure Location Right Arm Left Arm History Since Last Visit- (Skip if this is Patient's initial visit) Have you changed medications since your No No last visit? Any new allergies or adverse reactions No No Had a fall/change in ADL's that may No No increase risk of falls Signs or symptoms of abuse and/or No No neglect since last visit Have you been in the hospital since your No No last visit? Has dressing in place as prescribed Yes Yes Has compression in place as prescribed Yes N/A Has offloadiing in place as prescribed N/A N/A Experienced any changes in pain level or No No management Left Footwear Surgical Shoe Surgical Shoe with pressure with pressure relief insole relief insole Right Footwear Regular Shoe Regular Shoe Pain Scale: 0-10 Numeric Is Patient Pain Free? Yes Yes WC - Nurse 1 - General Ulcer Measurement Start: 05/07/22 10:35 Freq: Status: Active Protocol: Activity Type Activity Date Activity User E-sign Co-sign Detail Recorded Client Recorded Date Recorded By Document 05/07/22 10:35 MW [id number] 05/07/22 10:46 MW Document 05/14/22 09:16 MW [id number] 05/14/22 09:26 MW 05/07/22 05/14/22 10:35 09:16 Wound Center Nurse 1 #8 L plantar -Combined with other wound No No -Current Size (cm) - Length 0.1 0.5 -Current Size (cm) - Width 0.1 0.8 -Current Size (cm) - Depth 0.1 0.2 -Total Square Cm 0.01 0.40 -Date of Last Picture (Recall this 05/07/22 05/14/22 field) -Photo Taken Yes Yes -Epithelialization None Present None Present -Tunneling No No -Undermining/Tunneling No No -Circular Undermining No No -Exudate Amt Small None Present -Exudate Type Serosanguineous -Wound Margin Flat & Intact Flat & Intact -Granulation Amt None Present (0 None Present (0 %) %) -Granulation Quality N/A N/A -Slough/Fibrin Yes Yes -Necrosis Amt Large (67-100%) Large (67-100%) -Necrotic Tissue Type Adherent Slough Adherent Slough -Structure Exposed N/A N/A -Texture (Stacy-wound Skin Appearance) No Abnormality, Assessed, Assessed Localized Edema ,Scarring -Moisture (Stacy-wound Skin Appearance) Assessed,Dry/ Assessed,Dry/ Scaly Scaly -Color (Stacy-wound Skin Appearance) No Abnormality, Assessed Assessed -Temperature (Stacy-wound Skin No Abnormality Appearance) (Pt Warm) -Tenderness on Palpation (Stacy-wound No No Skin Appearance) -Ulcer Cleansing Soap and Water Soap and Water -Foul Odor after Cleansing No No -Anesthetic Used 4% Lidocaine 5% Lidocaine Solution Gel #7 L med. foot -Combined with other wound No No -Current Size (cm) - Length 1.8 1.0 -Current Size (cm) - Width 0.8 1.6 -Current Size (cm) - Depth 0.2 0.2 -Total Square Cm 1.44 1.60 -Date of Last Picture (Recall this 05/07/22 05/14/22 field) -Photo Taken Yes Yes -Epithelialization None Present None Present -Tunneling No No -Undermining/Tunneling No No -Circular Undermining No No -Exudate Amt Medium None Present -Exudate Type Serosanguineous -Wound Margin Flat & Intact Flat & Intact -Granulation Amt Medium (34-66%) None Present (0 %) -Granulation Quality [place] N/A -Slough/Fibrin Yes Yes -Necrosis Amt Medium (34-66%) Large (67-100%) -Necrotic Tissue Type Adherent Slough Adherent Slough -Structure Exposed N/A N/A -Texture (Stacy-wound Skin Appearance) Assessed, Localized Edema ,Scarring -Moisture (Stacy-wound Skin Appearance) Assessed,Dry/ Scaly -Color (Stacy-wound Skin Appearance) Assessed -Temperature (Stacy-wound Skin No Abnormality Appearance) (Pt Warm) -Tenderness on Palpation (Stacy-wound No No Skin Appearance) -Ulcer Cleansing Soap and Water Soap and Water -Foul Odor after Cleansing No No -Anesthetic Used 4% Lidocaine 5% Lidocaine Solution Gel #6 L TMA cluster -Combined with other wound No No -Current Size (cm) - Length 0.1 0.1 -Current Size (cm) - Width 0.1 0.1 -Current Size (cm) - Depth 0.1 0.1 -Total Square Cm 0.01 0.01 -Date of Last Picture (Recall this 05/07/22 05/14/22 field) -Photo Taken Yes Yes -Epithelialization None Present None Present -Tunneling No No -Undermining/Tunneling No No -Circular Undermining No No -Exudate Amt Medium None Present -Exudate Type Serosanguineous -Wound Margin Flat & Intact Flat & Intact -Granulation Amt None Present (0 None Present (0 %) %) -Granulation Quality N/A N/A -Slough/Fibrin Yes Yes -Necrosis Amt Large (67-100%) Large (67-100%) -Necrotic Tissue Type Adherent Slough Adherent Slough -Structure Exposed N/A N/A -Texture (Stacy-wound Skin Appearance) Assessed, Assessed, Scarring Localized Edema ,Scarring -Moisture (Stacy-wound Skin Appearance) Assessed,Dry/ Assessed,Dry/ Scaly Scaly -Color (Stacy-wound Skin Appearance) No Abnormality, Assessed Assessed -Temperature (Stacy-wound Skin No Abnormality No Abnormality Appearance) (Pt Warm) (Pt Warm) -Tenderness on Palpation (Stacy-wound No Yes Skin Appearance) -Ulcer Cleansing Soap and Water Soap and Water -Foul Odor after Cleansing No No -Anesthetic Used 4% Lidocaine 5% Lidocaine Solution Gel #5 L lateral foot cluster -Combined with other wound No No -Current Size (cm) - Length 0.9 2.4 -Current Size (cm) - Width 0.2 0.8 -Current Size (cm) - Depth 0.1 0.1 -Total Square Cm 0.18 1.92 -Date of Last Picture (Recall this 05/07/22 05/14/22 field) -Photo Taken Yes Yes -Epithelialization None Present None Present -Tunneling No No -Undermining/Tunneling No No -Circular Undermining No No -Exudate Amt Small None Present -Exudate Type Serosanguineous -Wound Margin Flat & Intact Flat & Intact -Granulation Amt None Present (0 None Present (0 %) %) -Granulation Quality N/A N/A -Slough/Fibrin Yes Yes -Necrosis Amt Large (67-100%) Large (67-100%) -Necrotic Tissue Type Adherent Slough Adherent Slough -Structure Exposed N/A N/A -Texture (Stacy-wound Skin Appearance) Assessed, Assessed, Scarring Localized Edema ,Scarring -Moisture (Stacy-wound Skin Appearance) Assessed,Dry/ Dry/Scaly Scaly -Color (Stacy-wound Skin Appearance) No Abnormality, Assessed Assessed -Temperature (Stacy-wound Skin No Abnormality No Abnormality Appearance) (Pt Warm) (Pt Warm) -Tenderness on Palpation (Stacy-wound No No Skin Appearance) -Ulcer Cleansing Soap and Water Soap and Water -Foul Odor after Cleansing No No -Anesthetic Used 4% Lidocaine 5% Lidocaine Solution Gel #4 L lateral heel -Combined with other wound No No -Current Size (cm) - Length 3.5 0.2 -Current Size (cm) - Width 1.9 0.2 -Current Size (cm) - Depth 0.3 0.1 -Total Square Cm 6.65 0.04 -Date of Last Picture (Recall this 05/07/22 05/14/22 field) -Photo Taken Yes Yes -Epithelialization None Present None Present -Tunneling No No -Undermining/Tunneling No No -Circular Undermining No No -Exudate Amt Small None Present -Exudate Type Serosanguineous -Wound Margin Flat & Intact Flat & Intact -Granulation Amt Small (1-33%) None Present (0 %) -Granulation Quality [place] N/A -Slough/Fibrin Yes Yes -Necrosis Amt Large (67-100%) Large (67-100%) -Necrotic Tissue Type Adherent Slough Adherent Slough -Structure Exposed N/A N/A -Texture (Stacy-wound Skin Appearance) Assessed, Assessed, Scarring Localized Edema ,Scarring -Moisture (Stacy-wound Skin Appearance) Assessed,Dry/ Dry/Scaly Scaly -Color (Stacy-wound Skin Appearance) Assessed Assessed -Temperature (Stacy-wound Skin No Abnormality No Abnormality Appearance) (Pt Warm) (Pt Warm) -Tenderness on Palpation (Stacy-wound No Skin Appearance) -Ulcer Cleansing Soap and Water Soap and Water -Foul Odor after Cleansing No No -Anesthetic Used 4% Lidocaine 5% Lidocaine Solution Gel Lower Limb Edema Present No WC - Nurse 2 - General Ulcer CM Notes Start: 05/07/22 10:35 Freq: Status: Active Protocol: Activity Type Activity Date Activity User E-sign Co-sign Detail Recorded Client Recorded Date Recorded By Document 05/07/22 11:03 [id number] 05/07/22 11:12 Document 05/14/22 09:38 [id number] 05/14/22 09:43 05/07/22 05/14/22 11:03 09:38 Wound Center Nurse 2 #8 L plantar -Time 11:03 09:39 -Correct Patient Yes Yes -Correct Side, Site, Position Yes Yes -Correct Procedure Yes Yes -Procedure Performed Yes Yes -Type of Procedure Debridement Debridement -Clinical Debridement Subcutaneous Subcutaneous -Tissue Removed Subcutaneous Subcutaneous -Post Debridement (cm) - Length 0.2 0.6 -Post Debridement (cm) - Width 0.2 0.8 -Post Debridement (cm) - Depth 0.1 0.2 -Total Square (Post) (cm) 0.04 0.48 -Area of Debridement (cm) - Length 0.2 0.6 -Area of Debridement (cm) - Width 0.2 0.8 -Total Square (Area) (cm) 0.04 0.48 -Tunneling No No -Undermining/Tunneling No No -Circular Undermining No No -Wound/Ulcer Outcome Not Healed Not Healed -Ulcer Cleansing Rinsed/ Rinsed/ Irrigated with Irrigated with Saline Saline -Foul Odor after Cleansing No No -Bioengineered Tissue No No -Bleeding Controlled with Pressure NA -Treatment Response Procedure Procedure Tolerated Well Tolerated Well -Offloading Yes Yes -Type of Offloading Surgical Shoe Surgical Shoe -Debridement - Subq, 1st 20sq cm Yes No #7 L med. foot -Time : 09:39 -Correct Patient Yes Yes -Correct Side, Site, Position Yes Yes -Correct Procedure Yes Yes -Procedure Performed Yes Yes -Type of Procedure Debridement Debridement -Clinical Debridement Subcutaneous Subcutaneous -Tissue Removed Subcutaneous Subcutaneous -Post Debridement (cm) - Length 1.8 1.1 -Post Debridement (cm) - Width 0.9 1.6 -Post Debridement (cm) - Depth 0.2 0.2 -Total Square (Post) (cm) 1.62 1.76 -Area of Debridement (cm) - Length 1.8 1.1 -Area of Debridement (cm) - Width 0.9 1.6 -Total Square (Area) (cm) 1.62 1.76 -Tunneling No No -Undermining/Tunneling No No -Circular Undermining No No -Wound/Ulcer Outcome Not Healed Not Healed -Ulcer Cleansing Rinsed/ Rinsed/ Irrigated with Irrigated with Saline Saline -Foul Odor after Cleansing No No -Bioengineered Tissue No No -Bleeding Controlled with Pressure Pressure -Treatment Response Procedure Procedure Tolerated Well Tolerated Well -Offloading Yes Yes -Type of Offloading Surgical Shoe Surgical Shoe -Debridement - Subq, 1st 20sq cm No No #6 L TMA cluster -Time : 09:40 -Correct Patient Yes Yes -Correct Side, Site, Position Yes Yes -Correct Procedure Yes Yes -Procedure Performed Yes Yes -Type of Procedure Debridement Debridement -Clinical Debridement Subcutaneous Subcutaneous -Tissue Removed Subcutaneous Subcutaneous -Post Debridement (cm) - Length 0.2 0.1 -Post Debridement (cm) - Width 0.2 0.2 -Post Debridement (cm) - Depth 0.1 0.1 -Total Square (Post) (cm) 0.04 0.02 -Area of Debridement (cm) - Length 0.2 0.1 -Area of Debridement (cm) - Width 0.2 0.2 -Total Square (Area) (cm) 0.04 0.02 -Tunneling No No -Undermining/Tunneling No No -Circular Undermining No No -Wound/Ulcer Outcome Not Healed Not Healed -Ulcer Cleansing Rinsed/ Rinsed/ Irrigated with Irrigated with Saline Saline -Foul Odor after Cleansing No No -Bioengineered Tissue No No -Bleeding Controlled with Pressure Pressure -Treatment Response Procedure Procedure Tolerated Well Tolerated Well -Offloading Yes Yes -Type of Offloading Surgical Shoe Surgical Shoe -Debridement - Subq, 1st 20sq cm No No #5 L lateral foot cluster -Time 11:05 09:40 -Correct Patient Yes Yes -Correct Side, Site, Position Yes Yes -Correct Procedure Yes Yes -Procedure Performed Yes Yes -Type of Procedure Debridement Debridement -Clinical Debridement Subcutaneous Subcutaneous -Tissue Removed Subcutaneous Subcutaneous -Post Debridement (cm) - Length 1 2.5 -Post Debridement (cm) - Width 0.2 0.8 -Post Debridement (cm) - Depth 0.1 0.1 -Total Square (Post) (cm) 0.2 2.00 -Area of Debridement (cm) - Length 1.0 2.5 -Area of Debridement (cm) - Width 0.2 0.8 -Total Square (Area) (cm) 0.20 2.00 -Tunneling No No -Undermining/Tunneling No No -Circular Undermining No No -Wound/Ulcer Outcome Not Healed Not Healed -Ulcer Cleansing Rinsed/ Rinsed/ Irrigated with Irrigated with Saline Saline -Foul Odor after Cleansing No No -Bioengineered Tissue No No -Bleeding Controlled with Pressure Pressure -Treatment Response Procedure Procedure Tolerated Well Tolerated Well -Offloading Yes Yes -Type of Offloading Surgical Shoe Surgical Shoe -Debridement - Subq, 1st 20sq cm No No #4 L lateral heel -Time 11:05 09:41 -Correct Patient Yes Yes -Correct Side, Site, Position Yes Yes -Correct Procedure Yes Yes -Procedure Performed Yes Yes -Type of Procedure Debridement Debridement -Clinical Debridement Subcutaneous Subcutaneous -Tissue Removed Subcutaneous Subcutaneous -Post Debridement (cm) - Length 3.5 0.3 -Post Debridement (cm) - Width 2 0.3 -Post Debridement (cm) - Depth 0.3 0.1 -Total Square (Post) (cm) 7.0 0.09 -Area of Debridement (cm) - Length 3.5 0.3 -Area of Debridement (cm) - Width 2 0.3 -Total Square (Area) (cm) 7.0 0.09 -Tunneling No No -Undermining/Tunneling No No -Circular Undermining No No -Wound/Ulcer Outcome Not Healed Not Healed -Ulcer Cleansing Rinsed/ Rinsed/ Irrigated with Irrigated with Saline Saline -Foul Odor after Cleansing No No -Bioengineered Tissue No No -Bleeding Controlled with Pressure Pressure -Treatment Response Procedure Procedure Tolerated Well Tolerated Well -Offloading Yes Yes -Type of Offloading Surgical Shoe Surgical Shoe -Debridement - Subq, 1st 20sq cm No Yes Pain Scale: 0-10 Numeric Is Patient Pain Free? Yes Yes WC - Nurse 3 - General Ulcer D/C NN Start: 05/07/22 10:35 Freq: Status: Active Protocol: Activity Type Activity Date Activity User E-sign Co-sign Detail Recorded Client Recorded Date Recorded By Document 05/07/22 11:17 MW [id number] 05/07/22 11:22 MW 05/07/22 11:17 Wound Care Nurse 3 #8 L plantar -Ulcer Cleansing Rinsed/ Irrigated with Saline -Foul Odor after Cleansing No -Negative Pressure Wound Therapy N/A -Primary Dressing Applied Promogran Jj Matter -Primary Dressing Covered/Secured with Dry Gauze & Roll Gauze, Secured with Tape -Promogran Jj Matter 1 #7 L med. foot -Ulcer Cleansing Rinsed/ Irrigated with Saline -Foul Odor after Cleansing No -Negative Pressure Wound Therapy N/A -Other Dressing jj -Primary Dressing Covered/Secured with Dry Gauze & Roll Gauze, Secured with Tape #6 L TMA cluster -Ulcer Cleansing Rinsed/ Irrigated with Saline -Foul Odor after Cleansing No -Negative Pressure Wound Therapy N/A -Other Dressing jj -Primary Dressing Covered/Secured with Dry Gauze & Roll Gauze, Secured with Tape #5 L lateral foot cluster -Ulcer Cleansing Rinsed/ Irrigated with Saline -Foul Odor after Cleansing No -Negative Pressure Wound Therapy N/A -Other Dressing jj -Primary Dressing Covered/Secured with Dry Gauze & Roll Gauze, Secured with Tape #4 L lateral heel -Ulcer Cleansing Rinsed/ Irrigated with Saline -Foul Odor after Cleansing No -Negative Pressure Wound Therapy N/A -Other Dressing jj -Primary Dressing Covered/Secured with Dry Gauze & Roll Gauze, Secured with Tape Treatment Response Procedure Tolerated Well Pain Scale: 0-10 Numeric Is Patient Pain Free? Yes Teaching: Wound Center Dressing Your Wound -Person Taught Patient,Family -Teaching Method Discussion, Demonstration -Response to teaching Verbalize understanding WC - Visit Discharge Discharge Condition Stable Ambulatory Status Ambulatory Transportation Private Auto Accompanied by Medication Reconcilliation completed & No provided to patient/care provider Clinical Summary of Care Provided Yes Notes: Dressing applied per Anaya Gill RNenvironmental sampling technician/Plan Assessment/Plan (1) Type 2 diabetes mellitus with diabetic polyneuropathy: CODE(S): E11.42 - Type 2 diabetes mellitus with diabetic polyneuropathy (2) Peripheral vascular disease, unspecified: CODE(S): I73.9 - Peripheral vascular disease, unspecified (3) Non-pressure chronic ulcer of other part of left foot with fat layer exposed: CODE(S): L97.522 - Non-pressure chronic ulcer of other part of left foot with fat layer exposed PLAN: Exam performed. Patient to complete course of p.o. antibiotics. Infection resolved. Patient offloading site with surgical shoe and offloading pad. Discussed additional offloading including complete nonweightbearing with knee scooter walker or total contact casting. Patient is awaiting vascular evaluation we will await vascular evaluation until we increased offloading. Patient's left foot wounds x5 were excisionally debrided down to including level of subcutaneous tissue of all nonviable tissue using a 5 mm dermal curette without incident. Patient consented procedure tolerated procedure well hemostasis obtained with light compression. No anesthesia due to neuropathy. Healthy granular bleeding noted. Patient evaluated by vascular surgery awaiting new arterial studies will consider intervention Will consider additional nutritional supplementation, advanced wound care products, advancement of offloading the left foot. Patient at this time will dressed site with Jj DSD and follow-up in 1 week.
[2022-05-21 10:56] VITALS: RESP 16; TEMP 36.3; BMI 19.6
--- NOTE | 2022-05-21 11:40 | PN.PCM_ITS ---
History of Present Illness Date of Service: 05/21/22 Chief Complaint: Left heel and lateral foot ulcerations osteomyelitis Peripheral vascular disease History of Wound: 77-year-old male seen for new onset ulcerations to plantar left heel and left forefoot. 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 Patient had all of the wounds healed but noted a recent fall and now has 5 wounds. He denies constitutional symptoms currently. Patient is awaiting evaluation by vascular surgery. Patient is offloading the sites with a surgical shoe and developed an offloading pad to take pressure off the forefoot TMA site as well as the plantar heel. Patient has been dressing the site daily with antibiotic ointment but recently received Jj in the mail. Patient has no other complaints at this time denies any rest pain. Notes improvement in his wounds. Objective Data Objective Data Vital Signs: Vital Signs Temp Pulse Resp BP O2 Del Method 97.3 F L 90 16 128/80 H Room Air 05/21/22 10:56 05/14/22 09:16 05/21/22 10:56 05/14/22 09:16 05/21/22 10:56 Oxygen Delivery Method Room Air Weight: 63.957 kg Body Mass Index (BMI) 19.6 Physical Exam Narrative Patient is alert and oriented to person place and time. Patient ambulates assisted by walker and surgical shoe to the left foot. Vascular: Dorsalis pedis and posterior tibial pulses nonpalpable to the left lower extremity. Biphasic on Doppler examination. Atrophic skin changes noted. Neurologic: Light touch protective sensation absent to bilateral feet. Dermatologic: Full-thickness wounds x5 to left foot. First wound is along the medial aspect of the transmetatarsal incisional site there is 1 along the ce ntral aspect of the incisional site and one along the lateral aspect of the incisional site a fourth 1 along the plantar aspect of the first metatarsal shaft and one to the plantar lateral heel. The medial 3 wounds demonstrate necrotic wound bases upon debridement demonstrated healthy granular bleeding. No evidence of deep probing undermining. There is resolving erythema and edema to the foot. No evidence of purulent drainage. Plantar lateral heel wound demonstrates healthy granular base no deep probing undermining or signs of infection. Lateral incisional site wound demonstrates healthy granular base no deep probing undermining or signs of infection. These wounds demonstrate decent bleeding upon debridement with clean granular bases. Musculoskeletal: Left TMA with ankle instability noted. Muscular strength 4 out of 5 to bilateral lower extremity compartments. No other gross deformities. Debridement Note Debridement Note Post-Debridement Measurements and Additional Note: Post-Debridement Measurements/Treatment - Nurse 1 - General Ulcer Assessment Start: 05/07/22 10:35 Freq: Status: Active Protocol: [email or web address] Activity Type Activity Date Activity User E-sign Co-sign Detail Recorded Client Recorded Date Recorded By Document 05/07/22 10:35 MW [id number] 05/07/22 10:46 MW Document 05/14/22 09:16 MW [id number] 05/14/22 09:26 MW Document 05/21/22 10:56 [facility] [id number] 05/21/22 11:09 BMF 05/07/22 05/14/22 05/21/22 10:35 09:16 10:56 - Today's Visit Information Type of service Follow-up Visit Follow-up Visit Follow-up Visit (Physician/ELEVATOR EXAMINER AND ADJUSTER (Physician/ELEVATOR EXAMINER AND ADJUSTER (Physician/ELEVATOR EXAMINER AND ADJUSTER ) ) ) Arrival Mode Ambulatory Ambulatory Ambulatory Transfer Assistance None None None Accompanied by Patient Identification Verified (Name & Yes Yes Yes ) Patient Requires Transmission-Based No No No Precautions Safety Precautions NA Finger Stick Blood Sugar(mg/dl) (if 163 182 indicated): Blood Sugar Stated by Stated by Patient Patient Height and Weight Body Mass Index (BMI) 19.6 19.6 19.6 BMI Classification Normal Normal Normal Vital Signs Temperature (97.8 F-99.1 F) 97.6 F L 95.6 F L 97.3 F L Temperature Source Temporal Temporal Temporal Pulse Rate (60-100) 98 90 Pulse Location Monitor Monitor Monitor Respiratory Rate (12-18) 18 18 16 Respiratory rate source Observation Observation Observation Oxygen Delivery Method Room Air Room Air Room Air Blood Pressure (90/60-120/80) 119/71 128/80 H Blood Pressure Mean (mm Hg) 87 96 Source Monitor Monitor Monitor Position Sitting Sitting Sitting Blood Pressure Location Right Arm Left Arm Left Arm History Since Last Visit- (Skip if this is Patient's initial visit) Have you changed medications since your No No No last visit? Any new allergies or adverse reactions No No No Had a fall/change in ADL's that may No No No increase risk of falls Signs or symptoms of abuse and/or No No No neglect since last visit Have you been in the hospital since your No No No last visit? Has dressing in place as prescribed Yes Yes Yes Has compression in place as prescribed Yes N/A N/A Has offloadiing in place as prescribed N/A N/A Yes Experienced any changes in pain level or No No No management Left Footwear Surgical Shoe Surgical Shoe Surgical Shoe with pressure with pressure with pressure relief insole relief insole relief insole Right Footwear Regular Shoe Regular Shoe Regular Shoe Pain Scale: 0-10 Numeric Is Patient Pain Free? Yes Yes Yes WC - Nurse 1 - General Ulcer Measurement Start: 05/07/22 10:35 Freq: Status: Active Protocol: Activity Type Activity Date Activity User E-sign Co-sign Detail Recorded Client Recorded Date Recorded By Document 05/07/22 10:35 MW [id number] 05/07/22 10:46 MW Document 05/14/22 09:16 MW [id number] 05/14/22 09:26 MW Document 05/21/22 10:56 [facility] [id number] 05/21/22 11:09 BMF 05/07/22 05/14/22 05/21/22 10:35 09:16 10:56 Wound Center Nurse 1 #6 L TMA cluster -Combined with other wound No No No -Current Size (cm) - Length 0.1 0.1 0.1 -Current Size (cm) - Width 0.1 0.1 0.1 -Current Size (cm) - Depth 0.1 0.1 0.1 -Total Square Cm 0.01 0.01 0.01 -Date of Last Picture (Recall this 05/07/22 05/14/22 field) -Photo Taken Yes Yes No -Epithelialization None Present None Present Large 67-100% -Tunneling No No No -Undermining/Tunneling No No No -Circular Undermining No No No -Exudate Amt Medium None Present None Present -Exudate Type Serosanguineous -Wound Margin Flat & Intact Flat & Intact -Granulation Amt None Present (0 None Present (0 %) %) -Granulation Quality N/A N/A -Slough/Fibrin Yes Yes -Necrosis Amt Large (67-100%) Large (67-100%) Small (1-33%) -Necrotic Tissue Type Adherent Slough Adherent Slough Eschar -Structure Exposed N/A N/A -Texture (Stacy-wound Skin Appearance) Assessed, Assessed, Assessed, Scarring Localized Edema Scarring ,Scarring -Moisture (Stacy-wound Skin Appearance) Assessed,Dry/ Assessed,Dry/ Assessed Scaly Scaly -Color (Stacy-wound Skin Appearance) No Abnormality, Assessed Assessed Assessed -Temperature (Stacy-wound Skin No Abnormality No Abnormality No Abnormality Appearance) (Pt Warm) (Pt Warm) (Pt Warm) -Tenderness on Palpation (Stacy-wound No Yes No Skin Appearance) -Ulcer Cleansing Soap and Water Soap and Water Rinsed/ Irrigated with Saline -Foul Odor after Cleansing No No No -Anesthetic Used 4% Lidocaine 5% Lidocaine 4% Lidocaine Solution Gel Solution #8 L plantar -Combined with other wound No No No -Current Size (cm) - Length 0.1 0.5 0.5 -Current Size (cm) - Width 0.1 0.8 0.6 -Current Size (cm) - Depth 0.1 0.2 0.2 -Total Square Cm 0.01 0.40 0.30 -Date of Last Picture (Recall this 05/07/22 05/14/22 field) -Photo Taken Yes Yes No -Epithelialization None Present None Present None Present -Tunneling No No No -Undermining/Tunneling No No No -Circular Undermining No No No -Exudate Amt Small None Present Small -Exudate Type Serosanguineous Serous -Wound Margin Flat & Intact Flat & Intact Distinct, Outline Attached -Granulation Amt None Present (0 None Present (0 None Present (0 %) %) %) -Granulation Quality N/A N/A -Slough/Fibrin Yes Yes Yes -Necrosis Amt Large (67-100%) Large (67-100%) Large (67-100%) -Necrotic Tissue Type Adherent Slough Adherent Slough Adherent Slough -Structure Exposed N/A N/A -Texture (Stacy-wound Skin Appearance) No Abnormality, Assessed, Assessed, Assessed Localized Edema Scarring ,Scarring -Moisture (Stacy-wound Skin Appearance) Assessed,Dry/ Assessed,Dry/ Assessed Scaly Scaly -Color (Stacy-wound Skin Appearance) No Abnormality, Assessed Assessed Assessed -Temperature (Stacy-wound Skin No Abnormality No Abnormality Appearance) (Pt Warm) (Pt Warm) -Tenderness on Palpation (Stacy-wound No No No Skin Appearance) -Ulcer Cleansing Soap and Water Soap and Water Rinsed/ Irrigated with Saline -Foul Odor after Cleansing No No No -Anesthetic Used 4% Lidocaine 5% Lidocaine Solution Gel #7 L med. foot -Combined with other wound No No No -Current Size (cm) - Length 1.8 1.0 0.6 -Current Size (cm) - Width 0.8 1.6 1.3 -Current Size (cm) - Depth 0.2 0.2 0.2 -Total Square Cm 1.44 1.60 0.78 -Date of Last Picture (Recall this 05/07/22 05/14/22 field) -Photo Taken Yes Yes No -Epithelialization None Present None Present None Present -Tunneling No No No -Undermining/Tunneling No No No -Circular Undermining No No No -Exudate Amt Medium None Present Small -Exudate Type Serosanguineous Serous -Wound Margin Flat & Intact Flat & Intact Distinct, Outline Attached -Granulation Amt Medium (34-66%) None Present (0 None Present (0 %) %) -Granulation Quality [place] N/A -Slough/Fibrin Yes Yes Yes -Necrosis Amt Medium (34-66%) Large (67-100%) Large (67-100%) -Necrotic Tissue Type Adherent Slough Adherent Slough Adherent Slough -Structure Exposed N/A N/A -Texture (Stacy-wound Skin Appearance) Assessed, Assessed, Localized Edema Scarring ,Scarring -Moisture (Stacy-wound Skin Appearance) Assessed,Dry/ Assessed Scaly -Color (Stacy-wound Skin Appearance) Assessed Assessed -Temperature (Stacy-wound Skin No Abnormality No Abnormality Appearance) (Pt Warm) (Pt Warm) -Tenderness on Palpation (Stacy-wound No No No Skin Appearance) -Ulcer Cleansing Soap and Water Soap and Water Rinsed/ Irrigated with Saline -Foul Odor after Cleansing No No No -Anesthetic Used 4% Lidocaine 5% Lidocaine 4% Lidocaine Solution Gel Solution #5 L lateral foot cluster -Combined with other wound No No No -Current Size (cm) - Length 0.9 2.4 2.6 -Current Size (cm) - Width 0.2 0.8 0.5 -Current Size (cm) - Depth 0.1 0.1 0.1 -Total Square Cm 0.18 1.92 1.30 -Date of Last Picture (Recall this 05/07/22 05/14/22 field) -Photo Taken Yes Yes No -Epithelialization None Present None Present None Present -Tunneling No No No -Undermining/Tunneling No No No -Circular Undermining No No No -Exudate Amt Small None Present Small -Exudate Type Serosanguineous Purulent -Wound Margin Flat & Intact Flat & Intact Distinct, Outline Attached -Granulation Amt None Present (0 None Present (0 Small (1-33%) %) %) -Granulation Quality N/A N/A Red -Slough/Fibrin Yes Yes Yes -Necrosis Amt Large (67-100%) Large (67-100%) Large (67-100%) -Necrotic Tissue Type Adherent Slough Adherent Slough Eschar -Structure Exposed N/A N/A -Texture (Stacy-wound Skin Appearance) Assessed, Assessed, Assessed, Scarring Localized Edema Scarring ,Scarring -Moisture (Stacy-wound Skin Appearance) Assessed,Dry/ Dry/Scaly Assessed,Dry/ Scaly Scaly -Color (Stacy-wound Skin Appearance) No Abnormality, Assessed Assessed, Assessed Erythema -Temperature (Stacy-wound Skin No Abnormality No Abnormality No Abnormality Appearance) (Pt Warm) (Pt Warm) (Pt Warm) -Tenderness on Palpation (Stacy-wound No No No Skin Appearance) -Ulcer Cleansing Soap and Water Soap and Water Rinsed/ Irrigated with Saline -Foul Odor after Cleansing No No No -Anesthetic Used 4% Lidocaine 5% Lidocaine 4% Lidocaine Solution Gel Solution #4 L lateral heel -Combined with other wound No No No -Current Size (cm) - Length 3.5 0.2 0.6 -Current Size (cm) - Width 1.9 0.2 0.6 -Current Size (cm) - Depth 0.3 0.1 0.3 -Total Square Cm 6.65 0.04 0.36 -Date of Last Picture (Recall this 05/07/22 05/14/22 field) -Photo Taken Yes Yes No -Epithelialization None Present None Present None Present -Tunneling No No No -Undermining/Tunneling No No No -Circular Undermining No No No -Exudate Amt Small None Present Small -Exudate Type Serosanguineous Serosanguineous -Wound Margin Flat & Intact Flat & Intact Distinct, Outline Attached -Granulation Amt Small (1-33%) None Present (0 Medium (34-66%) %) -Granulation Quality [place] N/A Red -Slough/Fibrin Yes Yes Yes -Necrosis Amt Large (67-100%) Large (67-100%) Small (1-33%) -Necrotic Tissue Type Adherent Slough Adherent Slough Adherent Slough -Structure Exposed N/A N/A -Texture (Stacy-wound Skin Appearance) Assessed, Assessed, Assessed, Scarring Localized Edema Scarring ,Scarring -Moisture (Stacy-wound Skin Appearance) Assessed,Dry/ Dry/Scaly Assessed,Dry/ Scaly Scaly -Color (Stacy-wound Skin Appearance) Assessed Assessed Assessed -Temperature (Stacy-wound Skin No Abnormality No Abnormality No Abnormality Appearance) (Pt Warm) (Pt Warm) (Pt Warm) -Tenderness on Palpation (Stacy-wound No No Skin Appearance) -Ulcer Cleansing Soap and Water Soap and Water Rinsed/ Irrigated with Saline -Foul Odor after Cleansing No No No -Anesthetic Used 4% Lidocaine 5% Lidocaine 4% Lidocaine Solution Gel Solution Lower Limb Edema Present No WC - Nurse 2 - General Ulcer CM Notes Start: 05/07/22 10:35 Freq: Status: Active Protocol: Activity Type Activity Date Activity User E-sign Co-sign Detail Recorded Client Recorded Date Recorded By Document 05/07/22 11:03 [id number] 05/07/22 11:12 Document 05/14/22 09:38 [id number] 05/14/22 09:43 Document 05/21/22 11:24 [id number] 05/21/22 11:28 05/07/22 05/14/22 05/21/22 11:03 09:38 11:24 Wound Center Nurse 2 #6 L TMA cluster -Time 11:04 09:40 -Correct Patient Yes Yes No -Correct Side, Site, Position Yes Yes No -Correct Procedure Yes Yes No -Procedure Performed Yes Yes No -Type of Procedure Debridement Debridement -Clinical Debridement Subcutaneous Subcutaneous -Tissue Removed Subcutaneous Subcutaneous -Post Debridement (cm) - Length 0.2 0.1 0 -Post Debridement (cm) - Width 0.2 0.2 0 -Post Debridement (cm) - Depth 0.1 0.1 0 -Total Square (Post) (cm) 0.04 0.02 0 -Area of Debridement (cm) - Length 0.2 0.1 0 -Area of Debridement (cm) - Width 0.2 0.2 0 -Total Square (Area) (cm) 0.04 0.02 0 -Tunneling No No -Undermining/Tunneling No No -Circular Undermining No No -Wound/Ulcer Outcome Not Healed Not Healed Healed- Epithelialized -Ulcer Cleansing Rinsed/ Rinsed/ Irrigated with Irrigated with Saline Saline -Foul Odor after Cleansing No No -Bioengineered Tissue No No -Bleeding Controlled with Pressure Pressure -Treatment Response Procedure Procedure Tolerated Well Tolerated Well -Offloading Yes Yes -Type of Offloading Surgical Shoe Surgical Shoe -Debridement - Subq, 1st 20sq cm No No #8 L plantar -Time 11: 09:39 11:24 -Correct Patient Yes Yes Yes -Correct Side, Site, Position Yes Yes Yes -Correct Procedure Yes Yes Yes -Procedure Performed Yes Yes Yes -Type of Procedure Debridement Debridement Debridement -Clinical Debridement Subcutaneous Subcutaneous Subcutaneous -Tissue Removed Subcutaneous Subcutaneous Subcutaneous -Post Debridement (cm) - Length 0.2 0.6 0.6 -Post Debridement (cm) - Width 0.2 0.8 0.6 -Post Debridement (cm) - Depth 0.1 0.2 0.2 -Total Square (Post) (cm) 0.04 0.48 0.36 -Area of Debridement (cm) - Length 0.2 0.6 0.6 -Area of Debridement (cm) - Width 0.2 0.8 0.6 -Total Square (Area) (cm) 0.04 0.48 0.36 -Tunneling No No No -Undermining/Tunneling No No No -Circular Undermining No No No -Wound/Ulcer Outcome Not Healed Not Healed Not Healed -Ulcer Cleansing Rinsed/ Rinsed/ Rinsed/ Irrigated with Irrigated with Irrigated with Saline Saline Saline -Foul Odor after Cleansing No No No -Bioengineered Tissue No No No -Bleeding Controlled with Pressure NA Pressure -Treatment Response Procedure Procedure Procedure Tolerated Well Tolerated Well Tolerated Well -Offloading Yes Yes Yes -Type of Offloading Surgical Shoe Surgical Shoe Surgical Shoe -Debridement - Subq, 1st 20sq cm Yes No Yes #7 L med. foot -Time 11:04 09:39 11:24 -Correct Patient Yes Yes Yes -Correct Side, Site, Position Yes Yes Yes -Correct Procedure Yes Yes Yes -Procedure Performed Yes Yes Yes -Type of Procedure Debridement Debridement Debridement -Clinical Debridement Subcutaneous Subcutaneous Subcutaneous -Tissue Removed Subcutaneous Subcutaneous Subcutaneous -Post Debridement (cm) - Length 1.8 1.1 0.6 -Post Debridement (cm) - Width 0.9 1.6 1.4 -Post Debridement (cm) - Depth 0.2 0.2 0.2 -Total Square (Post) (cm) 1.62 1.76 0.84 -Area of Debridement (cm) - Length 1.8 1.1 0.6 -Area of Debridement (cm) - Width 0.9 1.6 1.4 -Total Square (Area) (cm) 1.62 1.76 0.84 -Tunneling No No No -Undermining/Tunneling No No No -Circular Undermining No No No -Wound/Ulcer Outcome Not Healed Not Healed Not Healed -Ulcer Cleansing Rinsed/ Rinsed/ Rinsed/ Irrigated with Irrigated with Irrigated with Saline Saline Saline -Foul Odor after Cleansing No No No -Bioengineered Tissue No No No -Bleeding Controlled with Pressure Pressure Pressure -Treatment Response Procedure Procedure Procedure Tolerated Well Tolerated Well Tolerated Well -Offloading Yes Yes Yes -Type of Offloading Surgical Shoe Surgical Shoe Surgical Shoe -Debridement - Subq, 1st 20sq cm No No No #5 L lateral foot cluster -Time 11:05 09:40 11:25 -Correct Patient Yes Yes Yes -Correct Side, Site, Position Yes Yes Yes -Correct Procedure Yes Yes Yes -Procedure Performed Yes Yes Yes -Type of Procedure Debridement Debridement Debridement -Clinical Debridement Subcutaneous Subcutaneous Subcutaneous -Tissue Removed Subcutaneous Subcutaneous Subcutaneous -Post Debridement (cm) - Length 1 2.5 2.6 -Post Debridement (cm) - Width 0.2 0.8 0.6 -Post Debridement (cm) - Depth 0.1 0.1 0.1 -Total Square (Post) (cm) 0.2 2.00 1.56 -Area of Debridement (cm) - Length 1.0 2.5 2.6 -Area of Debridement (cm) - Width 0.2 0.8 0.6 -Total Square (Area) (cm) 0.20 2.00 1.56 -Tunneling No No No -Undermining/Tunneling No No No -Circular Undermining No No No -Wound/Ulcer Outcome Not Healed Not Healed Not Healed -Ulcer Cleansing Rinsed/ Rinsed/ Rinsed/ Irrigated with Irrigated with Irrigated with Saline Saline Saline -Foul Odor after Cleansing No No No -Bioengineered Tissue No No No -Bleeding Controlled with Pressure Pressure Pressure -Treatment Response Procedure Procedure Procedure Tolerated Well Tolerated Well Tolerated Well -Offloading Yes Yes Yes -Type of Offloading Surgical Shoe Surgical Shoe Surgical Shoe -Debridement - Subq, 1st 20sq cm No No No #4 L lateral heel -Time 11:05 09:41 11:26 -Correct Patient Yes Yes Yes -Correct Side, Site, Position Yes Yes Yes -Correct Procedure Yes Yes Yes -Procedure Performed Yes Yes Yes -Type of Procedure Debridement Debridement Debridement -Clinical Debridement Subcutaneous Subcutaneous Subcutaneous -Tissue Removed Subcutaneous Subcutaneous Subcutaneous -Post Debridement (cm) - Length 3.5 0.3 0.6 -Post Debridement (cm) - Width 2 0.3 0.7 -Post Debridement (cm) - Depth 0.3 0.1 0.3 -Total Square (Post) (cm) 7.0 0.09 0.42 -Area of Debridement (cm) - Length 3.5 0.3 0.6 -Area of Debridement (cm) - Width 2 0.3 0.7 -Total Square (Area) (cm) 7.0 0.09 0.42 -Tunneling No No No -Undermining/Tunneling No No -Circular Undermining No No No -Wound/Ulcer Outcome Not Healed Not Healed Not Healed -Ulcer Cleansing Rinsed/ Rinsed/ Irrigated with Irrigated with Saline Saline -Foul Odor after Cleansing No No No -Bioengineered Tissue No No No -Bleeding Controlled with Pressure Pressure Pressure -Treatment Response Procedure Procedure Procedure Tolerated Well Tolerated Well Tolerated Well -Offloading Yes Yes Yes -Type of Offloading Surgical Shoe Surgical Shoe Surgical Shoe -Debridement - Subq, 1st 20sq cm No Yes No Pain Scale: 0-10 Numeric Is Patient Pain Free? Yes Yes Yes WC - Nurse 3 - General Ulcer D/C NN Start: 05/07/22 10:35 Freq: Status: Active Protocol: Activity Type Activity Date Activity User E-sign Co-sign Detail Recorded Client Recorded Date Recorded By Document 05/07/22 11:17 MW [id number] 05/07/22 11:22 MW Document 05/14/22 10:56 [place] [id number] 05/14/22 10:57 AK 05/07/22 05/14/22 11:17 10:56 Wound Care Nurse 3 #6 L TMA cluster -Ulcer Cleansing Rinsed/ Rinsed/ Irrigated with Irrigated with Saline Saline -Foul Odor after Cleansing No -Negative Pressure Wound Therapy N/A -Other Dressing jj -Primary Dressing Covered/Secured with Dry Gauze & Roll Gauze, Secured with Tape -Other Covering hydrogel #8 L plantar -Ulcer Cleansing Rinsed/ Rinsed/ Irrigated with Irrigated with Saline Saline -Foul Odor after Cleansing No No -Negative Pressure Wound Therapy N/A N/A -Primary Dressing Applied Promogran C Hydrogel ($) Jj Matter -Primary Dressing Covered/Secured with Dry Gauze & Dry Gauze,Dry Roll Gauze, Gauze & Roll Secured with Gauze,Secured Tape with Tape -Promogran Jj Matter 1 #7 L med. foot -Ulcer Cleansing Rinsed/ Rinsed/ Irrigated with Irrigated with Saline Saline -Foul Odor after Cleansing No No -Negative Pressure Wound Therapy N/A N/A -Other Dressing jj hydrogel -Primary Dressing Covered/Secured with Dry Gauze & Roll Gauze, Secured with Tape #5 L lateral foot cluster -Ulcer Cleansing Rinsed/ Rinsed/ Irrigated with Irrigated with Saline Saline -Foul Odor after Cleansing No -Negative Pressure Wound Therapy N/A -Other Dressing jj hydrogel -Primary Dressing Covered/Secured with Dry Gauze & Roll Gauze, Secured with Tape #4 L lateral heel -Ulcer Cleansing Rinsed/ Rinsed/ Irrigated with Irrigated with Saline Saline -Foul Odor after Cleansing No -Negative Pressure Wound Therapy N/A -Other Dressing jj hydrogel -Primary Dressing Covered/Secured with Dry Gauze & Roll Gauze, Secured with Tape Treatment Response Procedure Tolerated Well Pain Scale: 0-10 Numeric Is Patient Pain Free? Yes Yes Teaching: Wound Center Dressing Your Wound -Person Taught Patient,Family -Teaching Method Discussion, Demonstration -Response to teaching Verbalize understanding WC - Visit Discharge Discharge Condition Stable Stable Ambulatory Status Ambulatory Ambulatory Transportation Private Auto Private Auto Accompanied by Medication Reconcilliation completed & No Yes provided to patient/care provider Clinical Summary of Care Provided Yes Yes Notes: Dressing applied per Anaya Gill RNanimal control specialist/Plan Assessment/Plan (1) Type 2 diabetes mellitus with diabetic polyneuropathy: CODE(S): E11.42 - Type 2 diabetes mellitus with diabetic polyneuropathy (2) Peripheral vascular disease, unspecified: CODE(S): I73.9 - Peripheral vascular disease, unspecified (3) Non-pressure chronic ulcer of other part of left foot with fat layer exposed: CODE(S): L97.522 - Non-pressure chronic ulcer of other part of left foot with fat layer exposed PLAN: Exam performed. Wounds improving at this time. Patient offloading site with surgical shoe and offloading pad. Discussed additional offloading including complete nonweightbearing with knee scooter walker or total contact casting. Patient being followed by vascular surgery, awaiting ultrasound. We will continue to continue to follow this. Patient's left foot wounds x5 were excisionally debrided down to including level of subcutaneous tissue of all nonviable tissue using a 5 mm dermal curette without incident. Patient consented procedure tolerated procedure well hemostasis obtained with light compression. No anesthesia due to neuropathy. Healthy granular bleeding noted. Patient evaluated by vascular surgery awaiting new arterial studies will consider intervention Will consider additional nutritional supplementation, advanced wound care products, advancement of offloading the left foot. Patient at this time will dressed site with Jj DSD and follow-up in 1 week.
[2022-05-28 10:50] VITALS: BP 132/74; PULSE 101; RESP 16; TEMP 36; BMI 19.6
--- NOTE | 2022-05-28 11:48 | PN.PCM_ITS ---
History of Present Illness Date of Service: 05/28/22 Chief Complaint: Left heel and lateral foot ulcerations osteomyelitis Peripheral vascular disease History of Wound: 77-year-old male seen for new onset ulcerations to plantar left heel and left forefoot. 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 Patient had all of the wounds healed but noted a recent fall and now has 5 wounds. He denies constitutional symptoms currently. Patient is awaiting evaluation by vascular surgery. Patient is offloading the sites with a surgical shoe and developed an offloading pad to take pressure off the forefoot TMA site as well as the plantar heel. Patient has been dressing the site daily with antibiotic ointment but recently received Ida in the mail. Patient has no other complaints at this time denies any rest pain. Notes improvement in his wounds. Objective Data Objective Data Vital Signs: Vital Signs Temp Pulse Resp BP O2 Del Method 96.8 F L 101 H 16 132/74 H Room Air 05/28/22 10:50 05/28/22 10:50 05/28/22 10:50 05/28/22 10:50 05/28/22 10:50 Oxygen Delivery Method Room Air Weight: 63.957 kg Body Mass Index (BMI) 19.6 Physical Exam Narrative Patient is alert and oriented to person place and time. Patient ambulates assisted by walker and surgical shoe to the left foot. Vascular: Dorsalis pedis and posterior tibial pulses nonpalpable to the left lower extremity. Biphasic on Doppler examination. Atrophic skin changes noted. Neurologic: Light touch protective sensation absent to bilateral feet. Dermatologic: Full-thickness wounds x5 to left foot. First wound is along the medial aspect of the transmetatarsal incisional site there is 1 along the central aspect of the incisional site and one along the lateral aspect of the incisional site a fourth 1 along the plantar aspect of the first metatarsal shaft and one to the plantar lateral heel. The medial 3 wounds demonstrate necrotic wound bases upon debridement demonstrated healthy granular bleeding. No evidence of deep probing undermining. There is resolving erythema and edema to the foot. No evidence of purulent drainage. Plantar lateral heel wound demonstrates healthy granular base no deep probing undermining or signs of infection. Lateral incisional site wound demonstrates healthy granular base no deep probing undermining or signs of infection. These wounds demonstrate decent bleeding upon debridement with clean granular bases. Musculoskeletal: Left TMA with ankle instability noted. Muscular strength 4 out of 5 to bilateral lower extremity compartments. No other gross deformities. Debridement Note Debridement Note Post-Debridement Measurements and Additional Note: Post-Debridement Measurements/Treatment - Nurse 1 - General Ulcer Assessment Start: 05/07/22 10:35 Freq: Status: Active Protocol: .LOWEXT Activity Type Activity Date Activity User E-sign Co-sign Detail Recorded Client Recorded Date Recorded By Document 05/07/22 10:35 MW [id number] 05/07/22 10:46 MW Document 05/14/22 09:16 MW [id number] 05/14/22 09:26 MW Document 05/21/22 10:56 BM [id number] 05/21/22 11:09 BMF Document 05/28/22 10:50 BMF [id number] 05/28/22 10:59 BMF 05/07/22 05/14/22 05/21/22 10:35 09:16 10:56 - Today's Visit Information Type of service Follow-up Visit Follow-up Visit Follow-up Visit (Physician/MANAGER MATERIALS MANAGEMENT (Physician/MANAGER MATERIALS MANAGEMENT (Physician/MANAGER MATERIALS MANAGEMENT ) ) ) Arrival Mode Ambulatory Ambulatory Ambulatory Transfer Assistance None None None Accompanied by Patient Identification Verified (Name & Yes Yes Yes ) Patient Requires Transmission-Based No No No Precautions Safety Precautions NA Finger Stick Blood Sugar(mg/dl) (if 163 182 indicated): Blood Sugar Stated by Stated by Patient Patient Height and Weight Body Mass Index (BMI) 19.6 19.6 19.6 BMI Classification Normal Normal Normal Vital Signs Temperature (97.8 F-99.1 F) 97.6 F L 95.6 F L 97.3 F L Temperature Source Temporal Temporal Temporal Pulse Rate (60-100) 98 90 Pulse Location Monitor Monitor Monitor Respiratory Rate (12-18) 18 18 16 Respiratory rate source Observation Observation Observation Oxygen Delivery Method Room Air Room Air Room Air Blood Pressure (90/60-120/80) 119/71 128/80 H Blood Pressure Mean (mm Hg) 87 96 Source Monitor Monitor Monitor Position Sitting Sitting Sitting Blood Pressure Location Right Arm Left Arm Left Arm History Since Last Visit- (Skip if this is Patient's initial visit) Have you changed medications since your No No No last visit? Any new allergies or adverse reactions No No No Had a fall/change in ADL's that may No No No increase risk of falls Signs or symptoms of abuse and/or No No No neglect since last visit Have you been in the hospital since your No No No last visit? Has dressing in place as prescribed Yes Yes Yes Has compression in place as prescribed Yes N/A N/A Has offloadiing in place as prescribed N/A N/A Yes Experienced any changes in pain level or No No No management Left Footwear Surgical Shoe Surgical Shoe Surgical Shoe with pressure with pressure with pressure relief insole relief insole relief insole Right Footwear Regular Shoe Regular Shoe Regular Shoe Pain Scale: 0-10 Numeric Is Patient Pain Free? Yes Yes Yes 05/28/22 10:50 WC - Today's Visit Information Type of service Follow-up Visit (Physician/MANAGER MATERIALS MANAGEMENT ) Arrival Mode Ambulatory Transfer Assistance None Accompanied by Patient Identification Verified (Name & Yes ) Patient Requires Transmission-Based No Precautions Safety Precautions Finger Stick Blood Sugar(mg/dl) (if indicated): Blood Sugar Height and Weight Body Mass Index (BMI) 19.6 BMI Classification Normal Vital Signs Temperature (97.8 F-99.1 F) 96.8 F L Temperature Source Temporal Pulse Rate (60-100) 101 H Pulse Location Monitor Respiratory Rate (12-18) 16 Respiratory rate source Observation Oxygen Delivery Method Room Air Blood Pressure (90/60-120/80) 132/74 H Blood Pressure Mean (mm Hg) 93 Source Monitor Position Sitting Blood Pressure Location Right Arm History Since Last Visit- (Skip if this is Patient's initial visit) Have you changed medications since your No last visit? Any new allergies or adverse reactions No Had a fall/change in ADL's that may No increase risk of falls Signs or symptoms of abuse and/or No neglect since last visit Have you been in the hospital since your No last visit? Has dressing in place as prescribed Yes Has compression in place as prescribed N/A Has offloadiing in place as prescribed Yes Experienced any changes in pain level or No management Left Footwear Surgical Shoe with pressure relief insole Right Footwear Regular Shoe Pain Scale: 0-10 Numeric Is Patient Pain Free? Yes WC - Nurse 1 - General Ulcer Measurement Start: 05/07/22 10:35 Freq: Status: Active Protocol: Activity Type Activity Date Activity User E-sign Co-sign Detail Recorded Client Recorded Date Recorded By Document 05/07/22 10:35 MW [id number] 05/07/22 10:46 MW Document 05/14/22 09:16 MW [id number] 05/14/22 09:26 MW Document 05/21/22 10:56 [facility] [id number] 05/21/22 11:09 BMF Document 05/28/22 10:50 [facility] [id number] 05/28/22 10:59 BMF 05/07/22 05/14/22 05/21/22 10:35 09:16 10:56 Wound Center Nurse 1 #6 L TMA cluster -Combined with other wound No No No -Current Size (cm) - Length 0.1 0.1 0.1 -Current Size (cm) - Width 0.1 0.1 0.1 -Current Size (cm) - Depth 0.1 0.1 0.1 -Total Square Cm 0.01 0.01 0.01 -Date of Last Picture (Recall this 05/07/22 05/14/22 field) -Photo Taken Yes Yes No -Epithelialization None Present None Present Large 67-100% -Tunneling No No No -Undermining/Tunneling No No No -Circular Undermining No No No -Exudate Amt Medium None Present None Present -Exudate Type Serosanguineous -Wound Margin Flat & Intact Flat & Intact -Granulation Amt None Present (0 None Present (0 %) %) -Granulation Quality N/A N/A -Slough/Fibrin Yes Yes -Necrosis Amt Large (67-100%) Large (67-100%) Small (1-33%) -Necrotic Tissue Type Adherent Slough Adherent Slough Eschar -Structure Exposed N/A N/A -Texture (Stacy-wound Skin Appearance) Assessed, Assessed, Assessed, Scarring Localized Edema Scarring ,Scarring -Moisture (Stacy-wound Skin Appearance) Assessed,Dry/ Assessed,Dry/ Assessed Scaly Scaly -Color (Stacy-wound Skin Appearance) No Abnormality, Assessed Assessed Assessed -Temperature (Stacy-wound Skin No Abnormality No Abnormality No Abnormality Appearance) (Pt Warm) (Pt Warm) (Pt Warm) -Tenderness on Palpation (Stacy-wound No Yes No Skin Appearance) -Ulcer Cleansing Soap and Water Soap and Water Rinsed/ Irrigated with Saline -Foul Odor after Cleansing No No No -Anesthetic Used 4% Lidocaine 5% Lidocaine 4% Lidocaine Solution Gel Solution #8 L plantar -Combined with other wound No No No -Current Size (cm) - Length 0.1 0.5 0.5 -Current Size (cm) - Width 0.1 0.8 0.6 -Current Size (cm) - Depth 0.1 0.2 0.2 -Total Square Cm 0.01 0.40 0.30 -Date of Last Picture (Recall this 05/07/22 05/14/22 field) -Photo Taken Yes Yes No -Epithelialization None Present None Present None Present -Tunneling No No No -Undermining/Tunneling No No No -Circular Undermining No No No -Exudate Amt Small None Present Small -Exudate Type Serosanguineous Serous -Wound Margin Flat & Intact Flat & Intact Distinct, Outline Attached -Granulation Amt None Present (0 None Present (0 None Present (0 %) %) %) -Granulation Quality N/A N/A -Slough/Fibrin Yes Yes Yes -Necrosis Amt Large (67-100%) Large (67-100%) Large (67-100%) -Necrotic Tissue Type Adherent Slough Adherent Slough Adherent Slough -Structure Exposed N/A N/A -Texture (Stacy-wound Skin Appearance) No Abnormality, Assessed, Assessed, Assessed Localized Edema Scarring ,Scarring -Moisture (Stacy-wound Skin Appearance) Assessed,Dry/ Assessed,Dry/ Assessed Scaly Scaly -Color (Stacy-wound Skin Appearance) No Abnormality, Assessed Assessed Assessed -Temperature (Stacy-wound Skin No Abnormality No Abnormality Appearance) (Pt Warm) (Pt Warm) -Tenderness on Palpation (Stacy-wound No No No Skin Appearance) -Ulcer Cleansing Soap and Water Soap and Water Rinsed/ Irrigated with Saline -Foul Odor after Cleansing No No No -Anesthetic Used 4% Lidocaine 5% Lidocaine Solution Gel #7 L med. foot -Combined with other wound No No No -Current Size (cm) - Length 1.8 1.0 0.6 -Current Size (cm) - Width 0.8 1.6 1.3 -Current Size (cm) - Depth 0.2 0.2 0.2 -Total Square Cm 1.44 1.60 0.78 -Date of Last Picture (Recall this 05/07/22 05/14/22 field) -Photo Taken Yes Yes No -Epithelialization None Present None Present None Present -Tunneling No No No -Undermining/Tunneling No No No -Circular Undermining No No No -Exudate Amt Medium None Present Small -Exudate Type Serosanguineous Serous -Wound Margin Flat & Intact Flat & Intact Distinct, Outline Attached -Granulation Amt Medium (34-66%) None Present (0 None Present (0 %) %) -Granulation Quality [place] N/A -Slough/Fibrin Yes Yes Yes -Necrosis Amt Medium (34-66%) Large (67-100%) Large (67-100%) -Necrotic Tissue Type Adherent Slough Adherent Slough Adherent Slough -Structure Exposed N/A N/A -Texture (Stacy-wound Skin Appearance) Assessed, Assessed, Localized Edema Scarring ,Scarring -Moisture (Stacy-wound Skin Appearance) Assessed,Dry/ Assessed Scaly -Color (Stacy-wound Skin Appearance) Assessed Assessed -Temperature (Stacy-wound Skin No Abnormality No Abnormality Appearance) (Pt Warm) (Pt Warm) -Tenderness on Palpation (Stacy-wound No No No Skin Appearance) -Ulcer Cleansing Soap and Water Soap and Water Rinsed/ Irrigated with Saline -Foul Odor after Cleansing No No No -Anesthetic Used 4% Lidocaine 5% Lidocaine 4% Lidocaine Solution Gel Solution #5 L lateral foot cluster -Combined with other wound No No No -Current Size (cm) - Length 0.9 2.4 2.6 -Current Size (cm) - Width 0.2 0.8 0.5 -Current Size (cm) - Depth 0.1 0.1 0.1 -Total Square Cm 0.18 1.92 1.30 -Date of Last Picture (Recall this 05/07/22 05/14/22 field) -Photo Taken Yes Yes No -Epithelialization None Present None Present None Present -Tunneling No No No -Undermining/Tunneling No No No -Circular Undermining No No No -Exudate Amt Small None Present Small -Exudate Type Serosanguineous Purulent -Wound Margin Flat & Intact Flat & Intact Distinct, Outline Attached -Granulation Amt None Present (0 None Present (0 Small (1-33%) %) %) -Granulation Quality N/A N/A Red -Slough/Fibrin Yes Yes Yes -Necrosis Amt Large (67-100%) Large (67-100%) Large (67-100%) -Necrotic Tissue Type Adherent Slough Adherent Slough Eschar -Structure Exposed N/A N/A -Texture (Stacy-wound Skin Appearance) Assessed, Assessed, Assessed, Scarring Localized Edema Scarring ,Scarring -Moisture (Stacy-wound Skin Appearance) Assessed,Dry/ Dry/Scaly Assessed,Dry/ Scaly Scaly -Color (Stacy-wound Skin Appearance) No Abnormality, Assessed Assessed, Assessed Erythema -Temperature (Stacy-wound Skin No Abnormality No Abnormality No Abnormality Appearance) (Pt Warm) (Pt Warm) (Pt Warm) -Tenderness on Palpation (Stacy-wound No No No Skin Appearance) -Ulcer Cleansing Soap and Water Soap and Water Rinsed/ Irrigated with Saline -Foul Odor after Cleansing No No No -Anesthetic Used 4% Lidocaine 5% Lidocaine 4% Lidocaine Solution Gel Solution #4 L lateral heel -Combined with other wound No No No -Current Size (cm) - Length 3.5 0.2 0.6 -Current Size (cm) - Width 1.9 0.2 0.6 -Current Size (cm) - Depth 0.3 0.1 0.3 -Total Square Cm 6.65 0.04 0.36 -Date of Last Picture (Recall this 05/07/22 05/14/22 field) -Photo Taken Yes Yes No -Epithelialization None Present None Present None Present -Tunneling No No No -Undermining/Tunneling No No No -Circular Undermining No No No -Exudate Amt Small None Present Small -Exudate Type Serosanguineous Serosanguineous -Wound Margin Flat & Intact Flat & Intact Distinct, Outline Attached -Granulation Amt Small (1-33%) None Present (0 Medium (34-66%) %) -Granulation Quality [place] N/A Red -Slough/Fibrin Yes Yes Yes -Necrosis Amt Large (67-100%) Large (67-100%) Small (1-33%) -Necrotic Tissue Type Adherent Slough Adherent Slough Adherent Slough -Structure Exposed N/A N/A -Texture (Stacy-wound Skin Appearance) Assessed, Assessed, Assessed, Scarring Localized Edema Scarring ,Scarring -Moisture (Stacy-wound Skin Appearance) Assessed,Dry/ Dry/Scaly Assessed,Dry/ Scaly Scaly -Color (Stacy-wound Skin Appearance) Assessed Assessed Assessed -Temperature (Stacy-wound Skin No Abnormality No Abnormality No Abnormality Appearance) (Pt Warm) (Pt Warm) (Pt Warm) -Tenderness on Palpation (Stacy-wound No No Skin Appearance) -Ulcer Cleansing Soap and Water Soap and Water Rinsed/ Irrigated with Saline -Foul Odor after Cleansing No No No -Anesthetic Used 4% Lidocaine 5% Lidocaine 4% Lidocaine Solution Gel Solution Lower Limb Edema Present No 05/28/22 10:50 Wound Center Nurse 1 #6 L TMA cluster -Combined with other wound -Current Size (cm) - Length -Current Size (cm) - Width -Current Size (cm) - Depth -Total Square Cm -Date of Last Picture (Recall this field) -Photo Taken -Epithelialization -Tunneling -Undermining/Tunneling -Circular Undermining -Exudate Amt -Exudate Type -Wound Margin -Granulation Amt -Granulation Quality -Slough/Fibrin -Necrosis Amt -Necrotic Tissue Type -Structure Exposed -Texture (Stacy-wound Skin Appearance) -Moisture (Stacy-wound Skin Appearance) -Color (Stacy-wound Skin Appearance) -Temperature (Stacy-wound Skin Appearance) -Tenderness on Palpation (Stacy-wound Skin Appearance) -Ulcer Cleansing -Foul Odor after Cleansing -Anesthetic Used #8 L plantar -Combined with other wound No -Current Size (cm) - Length 0.3 -Current Size (cm) - Width 0.4 -Current Size (cm) - Depth 0.4 -Total Square Cm 0.12 -Date of Last Picture (Recall this 05/28/22 field) -Photo Taken Yes -Epithelialization None Present -Tunneling No -Undermining/Tunneling No -Circular Undermining No -Exudate Amt Small -Exudate Type Purulent -Wound Margin Distinct, Outline Attached -Granulation Amt None Present (0 %) -Granulation Quality -Slough/Fibrin Yes -Necrosis Amt Large (67-100%) -Necrotic Tissue Type Eschar -Structure Exposed -Texture (Stacy-wound Skin Appearance) Assessed, Scarring -Moisture (Stacy-wound Skin Appearance) Assessed,Dry/ Scaly -Color (Stacy-wound Skin Appearance) Assessed -Temperature (Stacy-wound Skin No Abnormality Appearance) (Pt Warm) -Tenderness on Palpation (Stacy-wound No Skin Appearance) -Ulcer Cleansing Rinsed/ Irrigated with Saline -Foul Odor after Cleansing No -Anesthetic Used 5% Lidocaine Gel #7 L med. foot -Combined with other wound No -Current Size (cm) - Length 0.7 -Current Size (cm) - Width 1.2 -Current Size (cm) - Depth 0.3 -Total Square Cm 0.84 -Date of Last Picture (Recall this 05/28/22 field) -Photo Taken Yes -Epithelialization None Present -Tunneling No -Undermining/Tunneling No -Circular Undermining No -Exudate Amt Small -Exudate Type Serosanguineous -Wound Margin Distinct, Outline Attached -Granulation Amt Small (1-33%) -Granulation Quality Red -Slough/Fibrin Yes -Necrosis Amt Large (67-100%) -Necrotic Tissue Type Adherent Slough -Structure Exposed -Texture (Stacy-wound Skin Appearance) Assessed, Scarring -Moisture (Stacy-wound Skin Appearance) Assessed,Dry/ Scaly -Color (Stacy-wound Skin Appearance) Assessed -Temperature (Stacy-wound Skin No Abnormality Appearance) (Pt Warm) -Tenderness on Palpation (Stacy-wound No Skin Appearance) -Ulcer Cleansing Rinsed/ Irrigated with Saline -Foul Odor after Cleansing No -Anesthetic Used 5% Lidocaine Gel #5 L lateral foot cluster -Combined with other wound No -Current Size (cm) - Length 0.9 -Current Size (cm) - Width 0.3 -Current Size (cm) - Depth 0.2 -Total Square Cm 0.27 -Date of Last Picture (Recall this 05/28/22 field) -Photo Taken Yes -Epithelialization Small 1-33% -Tunneling No -Undermining/Tunneling No -Circular Undermining No -Exudate Amt Medium -Exudate Type Serosanguineous -Wound Margin Distinct, Outline Attached -Granulation Amt Medium (34-66%) -Granulation Quality Red -Slough/Fibrin Yes -Necrosis Amt Medium (34-66%) -Necrotic Tissue Type Adherent Slough -Structure Exposed -Texture (Stacy-wound Skin Appearance) Assessed, Scarring -Moisture (Stacy-wound Skin Appearance) Assessed,Dry/ Scaly -Color (Stacy-wound Skin Appearance) Assessed -Temperature (Stacy-wound Skin No Abnormality Appearance) (Pt Warm) -Tenderness on Palpation (Stacy-wound No Skin Appearance) -Ulcer Cleansing Rinsed/ Irrigated with Saline -Foul Odor after Cleansing No -Anesthetic Used 5% Lidocaine Gel #4 L lateral heel -Combined with other wound No -Current Size (cm) - Length 0.4 -Current Size (cm) - Width 0.3 -Current Size (cm) - Depth 0.3 -Total Square Cm 0.12 -Date of Last Picture (Recall this 05/28/22 field) -Photo Taken Yes -Epithelialization None Present -Tunneling No -Undermining/Tunneling No -Circular Undermining No -Exudate Amt Small -Exudate Type Serosanguineous -Wound Margin Distinct, Outline Attached -Granulation Amt Medium (34-66%) -Granulation Quality [place] -Slough/Fibrin Yes -Necrosis Amt Medium (34-66%) -Necrotic Tissue Type Adherent Slough -Structure Exposed -Texture (Stacy-wound Skin Appearance) Assessed, Scarring -Moisture (Stacy-wound Skin Appearance) Assessed,Dry/ Scaly -Color (Stacy-wound Skin Appearance) Assessed -Temperature (Stacy-wound Skin No Abnormality Appearance) (Pt Warm) -Tenderness on Palpation (Stacy-wound No Skin Appearance) -Ulcer Cleansing Rinsed/ Irrigated with Saline -Foul Odor after Cleansing No -Anesthetic Used 5% Lidocaine Gel Lower Limb Edema Present WC - Nurse 2 - General Ulcer CM Notes Start: 05/07/22 10:35 Freq: Status: Active Protocol: Activity Type Activity Date Activity User E-sign Co-sign Detail Recorded Client Recorded Date Recorded By Document 05/07/22 11:03 [id number] 05/07/22 11:12 Document 05/14/22 09:38 [id number] 05/14/22 09:43 Document 05/21/22 11:24 [id number] 05/21/22 11:28 Document 05/28/22 11:09 [id number] 05/28/22 11:14 05/07/22 05/14/22 05/21/22 11:03 09:38 11:24 Wound Center Nurse 2 #6 L TMA cluster -Time 11:04 09:40 -Correct Patient Yes Yes No -Correct Side, Site, Position Yes Yes No -Correct Procedure Yes Yes No -Procedure Performed Yes Yes No -Type of Procedure Debridement Debridement -Clinical Debridement Subcutaneous Subcutaneous -Tissue Removed Subcutaneous Subcutaneous -Post Debridement (cm) - Length 0.2 0.1 0 -Post Debridement (cm) - Width 0.2 0.2 0 -Post Debridement (cm) - Depth 0.1 0.1 0 -Total Square (Post) (cm) 0.04 0.02 0 -Area of Debridement (cm) - Length 0.2 0.1 0 -Area of Debridement (cm) - Width 0.2 0.2 0 -Total Square (Area) (cm) 0.04 0.02 0 -Tunneling No No -Undermining/Tunneling No No -Circular Undermining No No -Wound/Ulcer Outcome Not Healed Not Healed Healed- Epithelialized -Ulcer Cleansing Rinsed/ Rinsed/ Irrigated with Irrigated with Saline Saline -Foul Odor after Cleansing No No -Bioengineered Tissue No No -Bleeding Controlled with Pressure Pressure -Treatment Response Procedure Procedure Tolerated Well Tolerated Well -Offloading Yes Yes -Type of Offloading Surgical Shoe Surgical Shoe -Debridement - Subq, 1st 20sq cm No No #8 L plantar -Time 11:03 09:39 11:24 -Correct Patient Yes Yes Yes -Correct Side, Site, Position Yes Yes Yes -Correct Procedure Yes Yes Yes -Procedure Performed Yes Yes Yes -Type of Procedure Debridement Debridement Debridement -Clinical Debridement Subcutaneous Subcutaneous Subcutaneous -Tissue Removed Subcutaneous Subcutaneous Subcutaneous -Post Debridement (cm) - Length 0.2 0.6 0.6 -Post Debridement (cm) - Width 0.2 0.8 0.6 -Post Debridement (cm) - Depth 0.1 0.2 0.2 -Total Square (Post) (cm) 0.04 0.48 0.36 -Area of Debridement (cm) - Length 0.2 0.6 0.6 -Area of Debridement (cm) - Width 0.2 0.8 0.6 -Total Square (Area) (cm) 0.04 0.48 0.36 -Tunneling No No No -Undermining/Tunneling No No No -Circular Undermining No No No -Wound/Ulcer Outcome Not Healed Not Healed Not Healed -Ulcer Cleansing Rinsed/ Rinsed/ Rinsed/ Irrigated with Irrigated with Irrigated with Saline Saline Saline -Foul Odor after Cleansing No No No -Bioengineered Tissue No No No -Bleeding Controlled with Pressure NA Pressure -Treatment Response Procedure Procedure Procedure Tolerated Well Tolerated Well Tolerated Well -Offloading Yes Yes Yes -Type of Offloading Surgical Shoe Surgical Shoe Surgical Shoe -Debridement - Subq, 1st 20sq cm Yes No Yes #7 L med. foot -Time 11:04 09:39 11:24 -Correct Patient Yes Yes Yes -Correct Side, Site, Position Yes Yes Yes -Correct Procedure Yes Yes Yes -Procedure Performed Yes Yes Yes -Type of Procedure Debridement Debridement Debridement -Clinical Debridement Subcutaneous Subcutaneous Subcutaneous -Tissue Removed Subcutaneous Subcutaneous Subcutaneous -Post Debridement (cm) - Length 1.8 1.1 0.6 -Post Debridement (cm) - Width 0.9 1.6 1.4 -Post Debridement (cm) - Depth 0.2 0.2 0.2 -Total Square (Post) (cm) 1.62 1.76 0.84 -Area of Debridement (cm) - Length 1.8 1.1 0.6 -Area of Debridement (cm) - Width 0.9 1.6 1.4 -Total Square (Area) (cm) 1.62 1.76 0.84 -Tunneling No No No -Undermining/Tunneling No No No -Circular Undermining No No No -Wound/Ulcer Outcome Not Healed Not Healed Not Healed -Ulcer Cleansing Rinsed/ Rinsed/ Rinsed/ Irrigated with Irrigated with Irrigated with Saline Saline Saline -Foul Odor after Cleansing No No No -Bioengineered Tissue No No No -Bleeding Controlled with Pressure Pressure Pressure -Treatment Response Procedure Procedure Procedure Tolerated Well Tolerated Well Tolerated Well -Offloading Yes Yes Yes -Type of Offloading Surgical Shoe Surgical Shoe Surgical Shoe -Debridement - Subq, 1st 20sq cm No No No #5 L lateral foot cluster -Time 11:05 09:40 11:25 -Correct Patient Yes Yes Yes -Correct Side, Site, Position Yes Yes Yes -Correct Procedure Yes Yes Yes -Procedure Performed Yes Yes Yes -Type of Procedure Debridement Debridement Debridement -Clinical Debridement Subcutaneous Subcutaneous Subcutaneous -Tissue Removed Subcutaneous Subcutaneous Subcutaneous -Post Debridement (cm) - Length 1 2.5 2.6 -Post Debridement (cm) - Width 0.2 0.8 0.6 -Post Debridement (cm) - Depth 0.1 0.1 0.1 -Total Square (Post) (cm) 0.2 2.00 1.56 -Area of Debridement (cm) - Length 1.0 2.5 2.6 -Area of Debridement (cm) - Width 0.2 0.8 0.6 -Total Square (Area) (cm) 0.20 2.00 1.56 -Tunneling No No No -Undermining/Tunneling No No No -Circular Undermining No No No -Wound/Ulcer Outcome Not Healed Not Healed Not Healed -Ulcer Cleansing Rinsed/ Rinsed/ Rinsed/ Irrigated with Irrigated with Irrigated with Saline Saline Saline -Foul Odor after Cleansing No No No -Bioengineered Tissue No No No -Bleeding Controlled with Pressure Pressure Pressure -Treatment Response Procedure Procedure Procedure Tolerated Well Tolerated Well Tolerated Well -Offloading Yes Yes Yes -Type of Offloading Surgical Shoe Surgical Shoe Surgical Shoe -Debridement - Subq, 1st 20sq cm No No No #4 L lateral heel -Time 11:05 09:41 11:26 -Correct Patient Yes Yes Yes -Correct Side, Site, Position Yes Yes Yes -Correct Procedure Yes Yes Yes -Procedure Performed Yes Yes Yes -Type of Procedure Debridement Debridement Debridement -Clinical Debridement Subcutaneous Subcutaneous Subcutaneous -Tissue Removed Subcutaneous Subcutaneous Subcutaneous -Post Debridement (cm) - Length 3.5 0.3 0.6 -Post Debridement (cm) - Width 2 0.3 0.7 -Post Debridement (cm) - Depth 0.3 0.1 0.3 -Total Square (Post) (cm) 7.0 0.09 0.42 -Area of Debridement (cm) - Length 3.5 0.3 0.6 -Area of Debridement (cm) - Width 2 0.3 0.7 -Total Square (Area) (cm) 7.0 0.09 0.42 -Tunneling No No No -Undermining/Tunneling No No -Circular Undermining No No No -Wound/Ulcer Outcome Not Healed Not Healed Not Healed -Ulcer Cleansing Rinsed/ Rinsed/ Irrigated with Irrigated with Saline Saline -Foul Odor after Cleansing No No No -Bioengineered Tissue No No No -Bleeding Controlled with Pressure Pressure Pressure -Treatment Response Procedure Procedure Procedure Tolerated Well Tolerated Well Tolerated Well -Offloading Yes Yes Yes -Type of Offloading Surgical Shoe Surgical Shoe Surgical Shoe -Debridement - Subq, 1st 20sq cm No Yes No Pain Scale: 0-10 Numeric Is Patient Pain Free? Yes Yes Yes 05/28/22 11:09 Wound Center Nurse 2 #6 L [facility] cluster -Time -Correct Patient -Correct Side, Site, Position -Correct Procedure -Procedure Performed -Type of Procedure -Clinical Debridement -Tissue Removed -Post Debridement (cm) - Length -Post Debridement (cm) - Width -Post Debridement (cm) - Depth -Total Square (Post) (cm) -Area of Debridement (cm) - Length -Area of Debridement (cm) - Width -Total Square (Area) (cm) -Tunneling -Undermining/Tunneling -Circular Undermining -Wound/Ulcer Outcome -Ulcer Cleansing -Foul Odor after Cleansing -Bioengineered Tissue -Bleeding Controlled with -Treatment Response -Offloading -Type of Offloading -Debridement - Subq, 1st 20sq cm #8 L plantar -Time 11:09 -Correct Patient Yes -Correct Side, Site, Position Yes -Correct Procedure Yes -Procedure Performed Yes -Type of Procedure Debridement -Clinical Debridement Subcutaneous -Tissue Removed Dermis -Post Debridement (cm) - Length 0.4 -Post Debridement (cm) - Width 0.4 -Post Debridement (cm) - Depth 0.3 -Total Square (Post) (cm) 0.16 -Area of Debridement (cm) - Length 0.4 -Area of Debridement (cm) - Width 0.4 -Total Square (Area) (cm) 0.16 -Tunneling No -Undermining/Tunneling No -Circular Undermining No -Wound/Ulcer Outcome Not Healed -Ulcer Cleansing Rinsed/ Irrigated with Saline -Foul Odor after Cleansing No -Bioengineered Tissue No -Bleeding Controlled with Pressure -Treatment Response Procedure Tolerated Well -Offloading Yes -Type of Offloading Surgical Shoe -Debridement - Subq, 20sq cm No #7 L med. foot -Time 11:10 -Correct Patient Yes -Correct Side, Site, Position Yes -Correct Procedure Yes -Procedure Performed Yes -Type of Procedure Debridement -Clinical Debridement Subcutaneous -Tissue Removed Subcutaneous -Post Debridement (cm) - Length 0.8 -Post Debridement (cm) - Width 1.2 -Post Debridement (cm) - Depth 0.3 -Total Square (Post) (cm) 0.96 -Area of Debridement (cm) - Length 0.8 -Area of Debridement (cm) - Width 1.2 -Total Square (Area) (cm) 0.96 -Tunneling No -Undermining/Tunneling No -Circular Undermining No -Wound/Ulcer Outcome Not Healed -Ulcer Cleansing Rinsed/ Irrigated with Saline -Foul Odor after Cleansing No -Bioengineered Tissue No -Bleeding Controlled with Pressure -Treatment Response Procedure Tolerated Well -Offloading Yes -Type of Offloading Surgical Shoe -Debridement - Subq, 20sq cm No #5 L lateral foot cluster -Time 11:10 -Correct Patient Yes -Correct Side, Site, Position Yes -Correct Procedure Yes -Procedure Performed Yes -Type of Procedure Debridement -Clinical Debridement Subcutaneous -Tissue Removed Subcutaneous -Post Debridement (cm) - Length 2.5 -Post Debridement (cm) - Width 0.3 -Post Debridement (cm) - Depth 0.2 -Total Square (Post) (cm) 0.75 -Area of Debridement (cm) - Length 2.5 -Area of Debridement (cm) - Width 0.3 -Total Square (Area) (cm) 0.75 -Tunneling No -Undermining/Tunneling No -Circular Undermining No -Wound/Ulcer Outcome Not Healed -Ulcer Cleansing Rinsed/ Irrigated with Saline -Foul Odor after Cleansing No -Bioengineered Tissue No -Bleeding Controlled with Pressure -Treatment Response Procedure Tolerated Well -Offloading Yes -Type of Offloading Surgical Shoe -Debridement - Subq, 20sq cm No #4 L lateral heel -Time 11:11 -Correct Patient Yes -Correct Side, Site, Position Yes -Correct Procedure Yes -Procedure Performed Yes -Type of Procedure Debridement -Clinical Debridement Subcutaneous -Tissue Removed Subcutaneous -Post Debridement (cm) - Length 0.4 -Post Debridement (cm) - Width 0.4 -Post Debridement (cm) - Depth 0.2 -Total Square (Post) (cm) 0.16 -Area of Debridement (cm) - Length 0.4 -Area of Debridement (cm) - Width 0.4 -Total Square (Area) (cm) 0.16 -Tunneling No -Undermining/Tunneling No -Circular Undermining No -Wound/Ulcer Outcome Not Healed -Ulcer Cleansing Rinsed/ Irrigated with Saline -Foul Odor after Cleansing No -Bioengineered Tissue No -Bleeding Controlled with Pressure -Treatment Response Procedure Tolerated Well -Offloading Yes -Type of Offloading Surgical Shoe -Debridement - Subq, 20sq cm Yes Pain Scale: 0-10 Numeric Is Patient Pain Free? Yes WC - Nurse 3 - General Ulcer D/C NN Start: 05/07/22 10:35 Freq: Status: Active Protocol: Activity Type Activity Date Activity User E-sign Co-sign Detail Recorded Client Recorded Date Recorded By Document 05/07/22 11:17 MW [id number] 05/07/22 11:22 MW Document 05/14/22 10:56 [place] [id number] 05/14/22 10:57 AK Document 05/21/22 11:41 AK [id number] 05/21/22 11:43 AK Document 05/28/22 11:24 BMF [id number] 05/28/22 11:25 BMF 05/07/22 05/14/22 05/21/22 11:17 10:56 11:41 Wound Care Nurse 3 #6 L [facility] cluster -Ulcer Cleansing Rinsed/ Rinsed/ Irrigated with Irrigated with Saline Saline -Foul Odor after Cleansing No -Negative Pressure Wound Therapy N/A -Other Dressing ida -Primary Dressing Covered/Secured with Dry Gauze & Roll Gauze, Secured with Tape -Other Covering hydrogel #8 L plantar -Ulcer Cleansing Rinsed/ Rinsed/ Rinsed/ Irrigated with Irrigated with Irrigated with Saline Saline Saline -Foul Odor after Cleansing No No No -Negative Pressure Wound Therapy N/A N/A N/A -Primary Dressing Applied Promogran C Hydrogel ($) C Hydrogel ($) Ida Matter -Other Dressing -Primary Dressing Covered/Secured with Dry Gauze & Dry Gauze,Dry Dry Gauze & Roll Gauze, Gauze & Roll Roll Gauze, Secured with Gauze,Secured Secured with Tape with Tape Tape -Other Covering -Promogran Ida Matter 1 #7 L med. foot -Ulcer Cleansing Rinsed/ Rinsed/ Rinsed/ Irrigated with Irrigated with Irrigated with Saline Saline Saline -Foul Odor after Cleansing No No No -Negative Pressure Wound Therapy N/A N/A N/A -Other Dressing ida hydrogel hydrogel -Primary Dressing Covered/Secured with Dry Gauze & Dry Gauze Roll Gauze, Secured with Tape -Other Covering #5 L lateral foot cluster -Ulcer Cleansing Rinsed/ Rinsed/ Rinsed/ Irrigated with Irrigated with Irrigated with Saline Saline Saline -Foul Odor after Cleansing No No -Negative Pressure Wound Therapy N/A N/A -Primary Dressing Applied -Other Dressing ida hydrogel hydrogel -Primary Dressing Covered/Secured with Dry Gauze & Dry Gauze Roll Gauze, Secured with Tape -Other Covering #4 L lateral heel -Ulcer Cleansing Rinsed/ Rinsed/ Rinsed/ Irrigated with Irrigated with Irrigated with Saline Saline Saline -Foul Odor after Cleansing No No -Negative Pressure Wound Therapy N/A N/A -Primary Dressing Applied -Other Dressing ida hydrogel hydrogel -Primary Dressing Covered/Secured with Dry Gauze & Dry Gauze, Roll Gauze, Secured with Secured with Tape Tape -Other Covering Treatment Response Procedure Tolerated Well Pain Scale: 0-10 Numeric Is Patient Pain Free? Yes Yes Yes Teaching: Wound Center Dressing Your Wound -Person Taught Patient,Family -Teaching Method Discussion, Demonstration -Response to teaching Verbalize understanding WC - Visit Discharge Discharge Condition Stable Stable Stable Ambulatory Status Ambulatory Ambulatory Ambulatory Transportation Private Auto Private Auto Private Auto Accompanied by Medication Reconcilliation completed & No Yes Yes provided to patient/care provider Clinical Summary of Care Provided Yes Yes Yes Notes: Dressing applied per Anaya Gill RN 05/28/22 11:24 Wound Care Nurse 3 #6 L TMA cluster -Ulcer Cleansing -Foul Odor after Cleansing -Negative Pressure Wound Therapy -Other Dressing -Primary Dressing Covered/Secured with -Other Covering #8 L plantar -Ulcer Cleansing Rinsed/ Irrigated with Saline -Foul Odor after Cleansing No -Negative Pressure Wound Therapy -Primary Dressing Applied -Other Dressing hydrogel -Primary Dressing Covered/Secured with Dry Gauze & Roll Gauze, Secured with Tape -Other Covering dsg per [place] 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 foot -Ulcer Cleansing Rinsed/ Irrigated with Saline -Foul Odor after Cleansing No -Negative Pressure Wound Therapy -Other Dressing hydrogel -Primary Dressing Covered/Secured with Dry Gauze & Roll Gauze, Secured with Tape -Other Covering drsg per [place] oil well fishing tool operator #5 L lateral foot cluster -Ulcer Cleansing Rinsed/ Irrigated with Saline -Foul Odor after Cleansing No -Negative Pressure Wound Therapy -Primary Dressing Applied Other -Other Dressing hydrogel -Primary Dressing Covered/Secured with Dry Gauze & Roll Gauze, Secured with Tape -Other Covering drsg per [place] oil well fishing tool operator #4 L lateral heel -Ulcer Cleansing Rinsed/ Irrigated with Saline -Foul Odor after Cleansing No -Negative Pressure Wound Therapy -Primary Dressing Applied Other -Other Dressing hydrogel -Primary Dressing Covered/Secured with Dry Gauze & Roll Gauze, Secured with Tape -Other Covering drsg per [place] 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 Yes Teaching: Wound Center Dressing Your Wound -Person Taught -Teaching Method -Response to teaching WC - Visit Discharge Discharge Condition Stable Ambulatory Status Ambulatory Transportation Private Auto Accompanied by Medication Reconcilliation completed & provided to patient/care provider Clinical Summary of Care Provided Notes: Assessment/Plan Assessment/Plan (1) Type 2 diabetes mellitus with diabetic polyneuropathy: CODE(S): E11.42 - Type 2 diabetes mellitus with diabetic polyneuropathy (2) Peripheral vascular disease, unspecified: CODE(S): I73.9 - Peripheral vascular disease, unspecified (3) Non-pressure chronic ulcer of other part of left foot with fat layer exposed: CODE(S): L97.522 - Non-pressure chronic ulcer of other part of left foot with fat layer exposed PLAN: Exam performed. Wounds improving at this time. Patient offloading site with surgical shoe and offloading pad. Discussed additional offloading including complete nonweightbearing with knee scooter walker or total contact casting. Patient being followed by vascular surgery, awaiting ultrasound. We will continue to continue to follow this. Patient's left foot wounds x5 were excisionally debrided down to including level of subcutaneous tissue of all nonviable tissue using a 5 mm dermal curette without incident. Patient consented procedure tolerated procedure well hemostasis obtained with light compression. No anesthesia due to neuropathy. Healthy granular bleeding noted. Patient evaluated by vascular surgery awaiting new arterial studies will consider intervention Will consider additional nutritional supplementation, advanced wound care products, advancement of offloading the left foot. Patient at this time will dressed site with Ida DSD and follow-up in 1 week.
== END 2022-06-03 23:59 | disposition home or self-care (01) ==
LOC: WC 11:00
PROVIDERS: PCP Family Medicine; Visit Provider Podiatrist
DX: E11.621 Type 2 diabetes mellitus with foot ulcer (principal); E11.51 Type 2 diabetes mellitus with diabetic peripheral angiopathy without gangrene; Z89.422 Acquired absence of other left toe(s); L97.522 Non-pressure chronic ulcer of other part of left foot with fat layer exposed; L97.429 Non-pressure chronic ulcer of left heel and midfoot with unspecified severity; E11.42 Type 2 diabetes mellitus with diabetic polyneuropathy
CPT/HCPCS: 11042

== ENCOUNTER 2022-07-02 10:00 | Outpatient (RCR) | payer MEDICARE, OTHER, SELFPAY ==
[2022-06-04 00:38] VITALS: BP 132/74; PULSE 101; RESP 16; TEMP 36; BMI 19.6
[2022-06-04 10:55] VITALS: BP 123/57; PULSE 98; RESP 16; BMI 19.6
--- NOTE | 2022-06-04 12:08 | PCM.WC.PN ---
History of Present Illness Date of Service: 06/04/22 Chief Complaint: Left heel and lateral foot ulcerations osteomyelitis Peripheral vascular disease History of Wound: 77-year-old male seen for new onset ulcerations to plantar left heel and left forefoot. 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 Patient had all of the wounds healed but noted a recent fall and now has 5 wounds. He denies constitutional symptoms currently. Patient is awaiting evaluation by vascular surgery. Patient is offloading the sites with a surgical shoe and developed an offloading pad to take pressure off the forefoot TMA site as well as the plantar heel. Patient has been dressing the site daily with antibiotic ointment but recently received Ida in the mail. Patient has no other complaints at this time denies any rest pain. Notes improvement in his wounds. Objective Data Objective Data Vital Signs: Vital Signs Temp Pulse Resp BP O2 Del Method 96.8 F L 98 16 123/57 H Room Air 06/04/22 00:38 06/04/22 10:55 06/04/22 10:55 06/04/22 10:55 06/04/22 10:55 Oxygen Delivery Method Room Air Weight: 63.957 kg Body Mass Index (BMI) 19.6 Physical Exam Narrative Patient is alert and oriented to person place and time. Patient ambulates assisted by walker and surgical shoe to the left foot. Vascular: Dorsalis pedis and posterior tibial pulses nonpalpable to the left lower extremity. Biphasic on Doppler examination. Atrophic skin changes noted. Neurologic: Light touch protective sensation absent to bilateral feet. Dermatologic: Full-thickness wounds x5 to left foot. First wound is along the medial aspect of the transmetatarsal incisional site there is 1 along the central aspect of the incisional site and one along the lateral aspect of the incisional site a fourth 1 along the plantar aspect of the first metatarsal shaft and one to the plantar lateral heel. The medial 3 wounds demonstrate necrotic wound bases upon debridement demonstrated healthy granular bleeding. No evidence of deep probing undermining. There is resolving erythema and edema to the foot. No evidence of purulent drainage. Plantar lateral heel wound demonstrates healthy granular base no deep probing undermining or signs of infection. Lateral incisional site wound demonstrates healthy granular base no deep probing undermining or signs of infection. These wounds demonstrate decent bleeding upon debridement with clean granular bases. Musculoskeletal: Left TMA with ankle instability noted. Muscular strength 4 out of 5 to bilateral lower extremity compartments. No other gross deformities. Debridement Note Debridement Note Post-Debridement Measurements and Additional Note: Post-Debridement Measurements/Treatment - Nurse 1 - General Ulcer Assessment Start: 06/04/22 10:55 Freq: Status: Active Protocol: SURESHEXT Activity Type Activity Date Activity User E-sign Co-sign Detail Recorded Client Recorded Date Recorded By Document 06/04/22 10:55 [facility] [id number] 06/04/22 11:00 [facility] 06/04/22 10:55 WC - Today's Visit Information Type of service Follow-up Visit (Physician/TUBING TESTER ) Arrival Mode Ambulatory Transfer Assistance Transfer Board Patient Identification Verified (Name & Yes ) Patient Requires Transmission-Based No Precautions Height and Weight Body Mass Index (BMI) 19.6 BMI Classification Normal Vital Signs Pulse Rate (60-100) 98 Pulse Location Monitor Respiratory Rate (12-18) 16 Respiratory rate source Observation Oxygen Delivery Method Room Air Blood Pressure (90/60-120/80) 123/57 H Blood Pressure Mean (mm Hg) 79 Source Monitor Position Sitting Blood Pressure Location Left Arm History Since Last Visit- (Skip if this is Patient's initial visit) Have you changed medications since your No last visit? Any new allergies or adverse reactions No Had a fall/change in ADL's that may No increase risk of falls Signs or symptoms of abuse and/or No neglect since last visit Have you been in the hospital since your No last visit? Has dressing in place as prescribed Yes Has compression in place as prescribed N/A Has offloadiing in place as prescribed Yes Experienced any changes in pain level or No management Left Footwear Surgical Shoe with pressure relief insole Right Footwear Regular Shoe Pain Scale: 0-10 Numeric Is Patient Pain Free? Yes - Nurse 1 - General Ulcer Measurement Start: 06/04/22 10:55 Freq: Status: Active Protocol: Activity Type Activity Date Activity User E-sign Co-sign Detail Recorded Client Recorded Date Recorded By Document 06/04/22 10:55 [facility] [id number] 06/04/22 11:00 [facility] 06/04/22 10:55 Wound Center Nurse 1 #8 L plantar -Combined with other wound No -Current Size (cm) - Length 0.5 -Current Size (cm) - Width 0.5 -Current Size (cm) - Depth 0.2 -Total Square Cm 0.25 -Date of Last Picture (Recall this 06/04/22 field) -Photo Taken Yes -Epithelialization None Present -Tunneling No -Undermining/Tunneling No -Circular Undermining No -Exudate Amt Small -Exudate Type Serosanguineous -Wound Margin Distinct, Outline Attached -Granulation Amt Large (67-100%) -Granulation Quality Red -Slough/Fibrin Yes -Necrosis Amt Small (1-33%) -Necrotic Tissue Type Adherent Slough -Texture (Stacy-wound Skin Appearance) Assessed, Scarring -Moisture (Stacy-wound Skin Appearance) Assessed,Dry/ Scaly -Color (Stacy-wound Skin Appearance) Assessed -Temperature (Stacy-wound Skin No Abnormality Appearance) (Pt Warm) -Tenderness on Palpation (Stacy-wound No Skin Appearance) -Ulcer Cleansing Rinsed/ Irrigated with Saline -Foul Odor after Cleansing No -Anesthetic Used 5% Lidocaine Gel #7 L med. foot -Combined with other wound No -Current Size (cm) - Length 1.1 -Current Size (cm) - Width 0.5 -Current Size (cm) - Depth 0.1 -Total Square Cm 0.55 -Date of Last Picture (Recall this 06/04/22 field) -Photo Taken Yes -Epithelialization None Present -Tunneling No -Undermining/Tunneling No -Circular Undermining No -Exudate Amt Medium -Exudate Type Serosanguineous -Wound Margin Distinct, Outline Attached -Granulation Amt None Present (0 %) -Slough/Fibrin Yes -Necrosis Amt Large (67-100%) -Necrotic Tissue Type Adherent Slough -Texture (Stacy-wound Skin Appearance) Assessed, Scarring -Moisture (Stacy-wound Skin Appearance) Assessed,Dry/ Scaly -Color (Stacy-wound Skin Appearance) Assessed -Temperature (Stacy-wound Skin No Abnormality Appearance) (Pt Warm) -Tenderness on Palpation (Stacy-wound No Skin Appearance) -Ulcer Cleansing Rinsed/ Irrigated with Saline -Foul Odor after Cleansing No -Anesthetic Used 5% Lidocaine Gel #5 L lateral foot cluster -Combined with other wound No -Current Size (cm) - Length 0.6 -Current Size (cm) - Width 0.3 -Current Size (cm) - Depth 0.1 -Total Square Cm 0.18 -Date of Last Picture (Recall this 06/04/22 field) -Photo Taken Yes -Epithelialization Small 1-33% -Tunneling No -Undermining/Tunneling No -Circular Undermining No -Exudate Amt Small -Exudate Type Serosanguineous -Wound Margin Flat & Intact -Granulation Amt Large (67-100%) -Granulation Quality Red -Slough/Fibrin No -Necrosis Amt None Present (0 %) -Texture (Stacy-wound Skin Appearance) Assessed, Scarring -Moisture (Stacy-wound Skin Appearance) Assessed,Dry/ Scaly -Color (Stacy-wound Skin Appearance) Assessed -Temperature (Stacy-wound Skin No Abnormality Appearance) (Pt Warm) -Tenderness on Palpation (Stacy-wound No Skin Appearance) -Ulcer Cleansing Rinsed/ Irrigated with Saline -Foul Odor after Cleansing No -Anesthetic Used 5% Lidocaine Gel #4 L lateral heel -Combined with other wound No -Current Size (cm) - Length 0.4 -Current Size (cm) - Width 0.4 -Current Size (cm) - Depth 0.2 -Total Square Cm 0.16 -Date of Last Picture (Recall this 06/04/22 field) -Photo Taken Yes -Epithelialization None Present -Tunneling No -Undermining/Tunneling No -Circular Undermining No -Exudate Amt Medium -Exudate Type Serosanguineous -Wound Margin Distinct, Outline Attached -Granulation Amt Medium (34-66%) -Granulation Quality Red -Slough/Fibrin Yes -Necrosis Amt Medium (34-66%) -Necrotic Tissue Type Adherent Slough -Texture (Stacy-wound Skin Appearance) Assessed, Scarring -Moisture (Stacy-wound Skin Appearance) Assessed,Dry/ Scaly -Color (Stacy-wound Skin Appearance) Assessed -Temperature (Stacy-wound Skin No Abnormality Appearance) (Pt Warm) -Tenderness on Palpation (Stacy-wound No Skin Appearance) -Ulcer Cleansing Rinsed/ Irrigated with Saline -Foul Odor after Cleansing No -Anesthetic Used 5% Lidocaine Gel WC - Nurse 3 - General Ulcer D/C NN Start: 06/04/22 10:55 Freq: Status: Active Protocol: Activity Type Activity Date Activity User E-sign Co-sign Detail Recorded Client Recorded Date Recorded By Document 06/04/22 11:50 BMF [id number] 06/04/22 11:51 [facility] 06/04/22 11:50 Wound Care Nurse 3 #8 L plantar -Ulcer Cleansing Rinsed/ Irrigated with Saline -Foul Odor after Cleansing No -Primary Dressing Applied C Hydrogel ($) -Other Dressing ABD, DRSG PER [place] [employer] MANAGEMENT CONSULTING MANAGER -Primary Dressing Covered/Secured with Dry Gauze & Roll Gauze, Secured with Tape #7 L med. foot -Ulcer Cleansing Rinsed/ Irrigated with Saline -Foul Odor after Cleansing No -Primary Dressing Applied Other -Other Dressing HYDROGEL; ABD, DRSG PER [place] [employer] MANAGEMENT CONSULTING MANAGER -Primary Dressing Covered/Secured with Dry Gauze & Roll Gauze, Secured with Tape #5 L lateral foot cluster -Ulcer Cleansing Rinsed/ Irrigated with Saline -Foul Odor after Cleansing No -Primary Dressing Applied Other -Other Dressing HYDROGEL; DRSG PER [place] [employer]ING MANAGEMENT CONSULTING MANAGER -Primary Dressing Covered/Secured with Dry Gauze & Roll Gauze, Secured with Tape #4 L lateral heel -Ulcer Cleansing Rinsed/ Irrigated with Saline -Foul Odor after Cleansing No -Primary Dressing Applied Other -Other Dressing HYDROGEL; DRSG PER [place] [employer]ANKING MANAGEMENT CONSULTING MANAGER -Primary Dressing Covered/Secured with Dry Gauze & Roll Gauze, Secured with Tape Treatment Response Procedure Tolerated Well Pain Scale: 0-10 Numeric Is Patient Pain Free? Yes WC - Visit Discharge Discharge Condition Stable Ambulatory Status Ambulatory Transportation Private Auto Assessment/Plan Assessment/Plan (1) Type 2 diabetes mellitus with diabetic polyneuropathy: CODE(S): E11.42 - Type 2 diabetes mellitus with diabetic polyneuropathy (2) Peripheral vascular disease, unspecified: CODE(S): I73.9 - Peripheral vascular disease, unspecified (3) Non-pressure chronic ulcer of other part of left foot with fat layer exposed: CODE(S): L97.522 - Non-pressure chronic ulcer of other part of left foot with fat layer exposed PLAN: Exam performed. Wounds improving at this time. Patient offloading site with surgical shoe and offloading pad. Discussed additional offloading including complete nonweightbearing with knee scooter walker or total contact casting. Patient being followed by vascular surgery, awaiting ultrasound. We will continue to continue to follow this. Patient's left foot wounds x5 were excisionally debrided down to including level of subcutaneous tissue of all nonviable tissue using a 5 mm dermal curette without incident. Patient consented procedure tolerated procedure well hemostasis obtained with light compression. No anesthesia due to neuropathy. Healthy granular bleeding noted. Patient evaluated by vascular surgery awaiting new arterial studies will consider intervention Will consider additional nutritional supplementation, advanced wound care products, advancement of offloading the left foot. Patient at this time will dressed site with Ida DSD and follow-up in 1 week.
[2022-06-11 10:13] VITALS: BP 144/99; PULSE 93; BMI 19.6
--- NOTE | 2022-06-11 10:59 | PCM.WC.PN ---
History of Present Illness Date of Service: 06/11/22 Chief Complaint: Left heel and lateral foot ulcerations osteomyelitis Peripheral vascular disease History of Wound: 77-year-old male seen for new onset ulcerations to plantar left heel and left forefoot. 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 Patient had all of the wounds healed but noted a recent fall and now has 5 wounds. He denies constitutional symptoms currently. Patient is awaiting evaluation by vascular surgery. Patient is offloading the sites with a surgical shoe and developed an offloading pad to take pressure off the forefoot TMA site as well as the plantar heel. Patient has been dressing the site daily with antibiotic ointment but recently received Ida in the mail. Patient has no other complaints at this time denies any rest pain. Notes improvement in his wounds. Objective Data Objective Data Vital Signs: Vital Signs Temp Pulse Resp BP O2 Del Method 96.8 F L 93 16 144/99 H Room Air 06/04/22 00:38 06/11/22 10:13 06/04/22 10:55 06/11/22 10:13 06/11/22 10:13 Oxygen Delivery Method Room Air Weight: 63.957 kg Body Mass Index (BMI) 19.6 Physical Exam Narrative Patient is alert and oriented to person place and time. Patient ambulates assisted by walker and surgical shoe to the left foot. Vascular: Dorsalis pedis and posterior tibial pulses nonpalpable to the left lower extremity. Biphasic on Doppler examination. Atrophic skin changes noted. Neurologic: Light touch protective sensation absent to bilateral feet. Dermatologic: Full-thickness wounds x5 to left foot. First wound is along the medial aspect of the transmetatarsal incisional site there is 1 along the central aspect of the incisional site and one along the lateral aspect of the incisional site a fourth 1 along the plantar aspect of the first metatarsal shaft and one to the plantar lateral heel. The medial 3 wounds demonstrate necrotic wound bases upon debridement demonstrated healthy granular bleeding. No evidence of deep probing undermining. There is resolving erythema and edema to the foot. No evidence of purulent drainage. Plantar lateral heel wound demonstrates healthy granular base no deep probing undermining or signs of infection. Lateral incisional site wound demonstrates healthy granular base no deep probing undermining or signs of infection. These wounds demonstrate decent bleeding upon debridement with clean granular bases. Musculoskeletal: Left TMA with ankle instability noted. Muscular strength 4 out of 5 to bilateral lower extremity compartments. No other gross deformities. Debridement Note Debridement Note Post-Debridement Measurements and Additional Note: Post-Debridement Measurements/Treatment - Nurse 1 - General Ulcer Assessment Start: 06/04/22 10:55 Freq: Status: Active Protocol: [email or web address] Activity Type Activity Date Activity User E-sign Co-sign Detail Recorded Client Recorded Date Recorded By Document 06/04/22 10:55 [facility] [id number] 06/04/22 11:00 [facility] Document 06/11/22 10:13 [facility] [id number] 06/11/22 10:22 BMF 06/04/22 06/11/22 10:55 10:13 - Today's Visit Information Type of service Follow-up Visit Follow-up Visit (Physician/CALL CENTER ANALYST (Physician/CALL CENTER ANALYST ) ) Arrival Mode Ambulatory Ambulatory Transfer Assistance Transfer Board None Accompanied by YUNG Patient Identification Verified (Name & Yes Yes ) Patient Requires Transmission-Based No No Precautions Height and Weight Body Mass Index (BMI) 19.6 19.6 BMI Classification Normal Normal Vital Signs Pulse Rate (60-100) 98 93 Pulse Location Monitor Monitor Respiratory Rate (12-18) 16 Respiratory rate source Observation Observation Oxygen Delivery Method Room Air Room Air Blood Pressure (90/60-120/80) 123/57 H 144/99 H Blood Pressure Mean (mm Hg) 79 114 Source Monitor Monitor Position Sitting Sitting Blood Pressure Location Left Arm Right Arm History Since Last Visit- (Skip if this is Patient's initial visit) Have you changed medications since your No No last visit? Any new allergies or adverse reactions No No Had a fall/change in ADL's that may No No increase risk of falls Signs or symptoms of abuse and/or No No neglect since last visit Have you been in the hospital since your No No last visit? Has dressing in place as prescribed Yes Yes Has compression in place as prescribed N/A N/A Has offloadiing in place as prescribed Yes Yes Experienced any changes in pain level or No No management Left Footwear Surgical Shoe Surgical Shoe with pressure with pressure relief insole relief insole Right Footwear Regular Shoe Regular Shoe Pain Scale: 0-10 Numeric Is Patient Pain Free? Yes Yes - Nurse 1 - General Ulcer Measurement Start: 06/04/22 10:55 Freq: Status: Active Protocol: Activity Type Activity Date Activity User E-sign Co-sign Detail Recorded Client Recorded Date Recorded By Document 06/04/22 10:55 [facility] [id number] 06/04/22 11:00 BM Document 06/11/22 10:13 [facility] [id number] 06/11/22 10:22 BMF 06/04/22 06/11/22 10:55 10:13 Wound Center Nurse 1 #8 L plantar -Combined with other wound No No -Current Size (cm) - Length 0.5 0.5 -Current Size (cm) - Width 0.5 0.5 -Current Size (cm) - Depth 0.2 0.2 -Total Square Cm 0.25 0.25 -Date of Last Picture (Recall this 06/04/22 06/11/22 field) -Photo Taken Yes Yes -Epithelialization None Present None Present -Tunneling No No -Undermining/Tunneling No No -Circular Undermining No No -Exudate Amt Small Small -Exudate Type Serosanguineous Serosanguineous -Wound Margin Distinct, Distinct, Outline Outline Attached Attached -Granulation Amt Large (67-100%) Small (1-33%) -Granulation Quality Red Red -Slough/Fibrin Yes Yes -Necrosis Amt Small (1-33%) Medium (34-66%) -Necrotic Tissue Type Adherent Slough Adherent Slough -Texture (Stacy-wound Skin Appearance) Assessed, Assessed, Scarring Scarring -Moisture (Stacy-wound Skin Appearance) Assessed,Dry/ Assessed,Dry/ Scaly Scaly -Color (Stacy-wound Skin Appearance) Assessed Assessed -Temperature (Stacy-wound Skin No Abnormality No Abnormality Appearance) (Pt Warm) (Pt Warm) -Tenderness on Palpation (Stacy-wound No No Skin Appearance) -Ulcer Cleansing Rinsed/ Rinsed/ Irrigated with Irrigated with Saline Saline -Foul Odor after Cleansing No No -Anesthetic Used 5% Lidocaine 5% Lidocaine Gel Gel #7 L med. foot -Combined with other wound No No -Current Size (cm) - Length 1.1 0.5 -Current Size (cm) - Width 0.5 1 -Current Size (cm) - Depth 0.1 0.3 -Total Square Cm 0.55 0.5 -Date of Last Picture (Recall this 06/04/22 06/11/22 field) -Photo Taken Yes Yes -Epithelialization None Present None Present -Tunneling No No -Undermining/Tunneling No Yes -Undermining/Tunneling Starts (O'clock 1 ) -Undermining/Tunneling Ends (O'clock) 4 -Maximum Distance (cm) 0.2 -Circular Undermining No No -Exudate Amt Medium Medium -Exudate Type Serosanguineous Serosanguineous -Wound Margin Distinct, Distinct, Outline Outline Attached Attached -Granulation Amt None Present (0 Small (1-33%) %) -Granulation Quality Red -Slough/Fibrin Yes Yes -Necrosis Amt Large (67-100%) Medium (34-66%) -Necrotic Tissue Type Adherent Slough Adherent Slough -Texture (Stacy-wound Skin Appearance) Assessed, Assessed, Scarring Scarring -Moisture (Stacy-wound Skin Appearance) Assessed,Dry/ Assessed,Dry/ Scaly Scaly -Color (Stacy-wound Skin Appearance) Assessed Assessed -Temperature (Stacy-wound Skin No Abnormality No Abnormality Appearance) (Pt Warm) (Pt Warm) -Tenderness on Palpation (Stacy-wound No No Skin Appearance) -Ulcer Cleansing Rinsed/ Rinsed/ Irrigated with Irrigated with Saline Saline -Foul Odor after Cleansing No No -Anesthetic Used 5% Lidocaine 5% Lidocaine Gel Gel #5 L lateral foot cluster -Combined with other wound No No -Current Size (cm) - Length 0.6 0.4 -Current Size (cm) - Width 0.3 0.7 -Current Size (cm) - Depth 0.1 0.2 -Total Square Cm 0.18 0.28 -Date of Last Picture (Recall this 06/04/22 06/11/22 field) -Photo Taken Yes Yes -Epithelialization Small 1-33% None Present -Tunneling No No -Undermining/Tunneling No Yes -Undermining/Tunneling Starts (O'clock 7 ) -Undermining/Tunneling Ends (O'clock) 4 -Maximum Distance (cm) 0.2 -Circular Undermining No No -Exudate Amt Small Medium -Exudate Type Serosanguineous Serosanguineous -Wound Margin Flat & Intact Distinct, Outline Attached -Granulation Amt Large (67-100%) Large (67-100%) -Granulation Quality Red Red -Slough/Fibrin No Yes -Necrosis Amt None Present (0 Small (1-33%) %) -Necrotic Tissue Type Adherent Slough -Texture (Stacy-wound Skin Appearance) Assessed, Assessed, Scarring Scarring -Moisture (Stacy-wound Skin Appearance) Assessed,Dry/ Assessed,Dry/ Scaly Scaly -Color (Stacy-wound Skin Appearance) Assessed Assessed -Temperature (Stacy-wound Skin No Abnormality No Abnormality Appearance) (Pt Warm) (Pt Warm) -Tenderness on Palpation (Stacy-wound No No Skin Appearance) -Ulcer Cleansing Rinsed/ Rinsed/ Irrigated with Irrigated with Saline Saline -Foul Odor after Cleansing No No -Anesthetic Used 5% Lidocaine 5% Lidocaine Gel Gel #4 L lateral heel -Combined with other wound No No -Current Size (cm) - Length 0.4 0.4 -Current Size (cm) - Width 0.4 0.4 -Current Size (cm) - Depth 0.2 0.3 -Total Square Cm 0.16 0.16 -Date of Last Picture (Recall this 06/04/22 06/11/22 field) -Photo Taken Yes Yes -Epithelialization None Present None Present -Tunneling No No -Undermining/Tunneling No No -Circular Undermining No No -Exudate Amt Medium Medium -Exudate Type Serosanguineous Serosanguineous -Wound Margin Distinct, Distinct, Outline Outline Attached Attached -Granulation Amt Medium (34-66%) Large (67-100%) -Granulation Quality Red Red -Slough/Fibrin Yes Yes -Necrosis Amt Medium (34-66%) Small (1-33%) -Necrotic Tissue Type Adherent Slough Adherent Slough -Texture (Stacy-wound Skin Appearance) Assessed, Assessed, Scarring Scarring -Moisture (Stacy-wound Skin Appearance) Assessed,Dry/ Assessed,Dry/ Scaly Scaly -Color (Stacy-wound Skin Appearance) Assessed Assessed -Temperature (Stacy-wound Skin No Abnormality No Abnormality Appearance) (Pt Warm) (Pt Warm) -Tenderness on Palpation (Stacy-wound No No Skin Appearance) -Ulcer Cleansing Rinsed/ Rinsed/ Irrigated with Irrigated with Saline Saline -Foul Odor after Cleansing No No -Anesthetic Used 5% Lidocaine 5% Lidocaine Gel Gel WC - Nurse 2 - General Ulcer CM Notes Start: 06/04/22 10:55 Freq: Status: Active Protocol: Activity Type Activity Date Activity User E-sign Co-sign Detail Recorded Client Recorded Date Recorded By Document 06/04/22 11:42 [id number] 06/04/22 12:23 Document 06/11/22 10:52 [id number] 06/11/22 10:55 06/04/22 06/11/22 11:42 10:52 Wound Center Nurse 2 #8 L plantar -Time 12:20 10:52 -Correct Patient Yes Yes -Correct Side, Site, Position Yes Yes -Correct Procedure Yes Yes -Procedure Performed Yes Yes -Type of Procedure Debridement Debridement -Clinical Debridement Subcutaneous Subcutaneous -Tissue Removed Subcutaneous Subcutaneous -Post Debridement (cm) - Length 0.6 0.6 -Post Debridement (cm) - Width 0.5 0.5 -Post Debridement (cm) - Depth 0.2 0.2 -Total Square (Post) (cm) 0.30 0.30 -Area of Debridement (cm) - Length 0.6 0.6 -Area of Debridement (cm) - Width 0.5 0.5 -Total Square (Area) (cm) 0.30 0.30 -Tunneling No No -Undermining/Tunneling No No -Circular Undermining No No -Wound/Ulcer Outcome Not Healed Not Healed -Ulcer Cleansing Rinsed/ Rinsed/ Irrigated with Irrigated with Saline Saline -Foul Odor after Cleansing Yes, Due to No Product Use -Bioengineered Tissue No No -Bleeding Controlled with Pressure Pressure -Treatment Response Procedure Procedure Tolerated Well Tolerated Well -Offloading Yes Yes -Type of Offloading Surgical Shoe Surgical Shoe -Debridement - Subq, 1st 20sq cm No No #7 L med. foot -Time 12:21 10:52 -Correct Patient Yes Yes -Correct Side, Site, Position Yes Yes -Correct Procedure Yes Yes -Procedure Performed Yes Yes -Type of Procedure Debridement Debridement -Clinical Debridement Subcutaneous Subcutaneous -Tissue Removed Subcutaneous Subcutaneous -Post Debridement (cm) - Length 1.2 0.6 -Post Debridement (cm) - Width 0.5 1.1 -Post Debridement (cm) - Depth 0.1 0.3 -Total Square (Post) (cm) 0.60 0.66 -Area of Debridement (cm) - Length 1.2 0.6 -Area of Debridement (cm) - Width 0.5 1.1 -Total Square (Area) (cm) 0.60 0.66 -Tunneling No No -Undermining/Tunneling No No -Circular Undermining No No -Wound/Ulcer Outcome Not Healed Not Healed -Ulcer Cleansing Rinsed/ Rinsed/ Irrigated with Irrigated with Saline Saline -Foul Odor after Cleansing No No -Bioengineered Tissue No No -Bleeding Controlled with Pressure Pressure -Treatment Response Procedure Procedure Tolerated Well Tolerated Well -Offloading Yes Yes -Type of Offloading Surgical Shoe Surgical Shoe -Debridement - Subq, 1st 20sq cm No No #5 L lateral foot cluster -Time 12:22 10:53 -Correct Patient Yes Yes -Correct Side, Site, Position Yes Yes -Correct Procedure Yes Yes -Procedure Performed Yes Yes -Type of Procedure Debridement Debridement -Clinical Debridement Subcutaneous Subcutaneous -Tissue Removed Dermis Subcutaneous -Post Debridement (cm) - Length 0.6 0.5 -Post Debridement (cm) - Width 0.4 0.7 -Post Debridement (cm) - Depth 0.1 0.2 -Total Square (Post) (cm) 0.24 0.35 -Area of Debridement (cm) - Length 0.6 0.5 -Area of Debridement (cm) - Width 0.4 0.7 -Total Square (Area) (cm) 0.24 0.35 -Tunneling No No -Undermining/Tunneling No No -Circular Undermining No No -Wound/Ulcer Outcome Not Healed Not Healed -Ulcer Cleansing Rinsed/ Rinsed/ Irrigated with Irrigated with Saline Saline -Foul Odor after Cleansing No No -Bioengineered Tissue No No -Bleeding Controlled with Pressure Pressure -Treatment Response Procedure Procedure Tolerated Well Tolerated Well -Offloading Yes Yes -Type of Offloading Surgical Shoe Surgical Shoe -Debridement - Subq, 1st 20sq cm No No #4 L lateral heel -Time 12:22 10:54 -Correct Patient Yes Yes -Correct Side, Site, Position Yes Yes -Correct Procedure Yes Yes -Procedure Performed Yes Yes -Type of Procedure Debridement Debridement -Clinical Debridement Subcutaneous Subcutaneous -Tissue Removed Subcutaneous Subcutaneous -Post Debridement (cm) - Length 0.5 0.5 -Post Debridement (cm) - Width 0.4 0.4 -Post Debridement (cm) - Depth 0.2 0.3 -Total Square (Post) (cm) 0.20 0.20 -Area of Debridement (cm) - Length 0.5 0.5 -Area of Debridement (cm) - Width 0.4 0.4 -Total Square (Area) (cm) 0.20 0.20 -Tunneling No No -Undermining/Tunneling No No -Circular Undermining No No -Wound/Ulcer Outcome Not Healed Not Healed -Ulcer Cleansing Rinsed/ Rinsed/ Irrigated with Irrigated with Saline Saline -Foul Odor after Cleansing No No -Bioengineered Tissue No No -Bleeding Controlled with Pressure Pressure -Treatment Response Procedure Procedure Tolerated Well Tolerated Well -Offloading Yes Yes -Type of Offloading Surgical Shoe Surgical Shoe -Debridement - Subq, 1st 20sq cm Yes Yes Pain Scale: 0-10 Numeric Is Patient Pain Free? Yes Yes - Nurse 3 - General Ulcer D/C NN Start: 06/04/22 10:55 Freq: Status: Active Protocol: Activity Type Activity Date Activity User E-sign Co-sign Detail Recorded Client Recorded Date Recorded By Document 06/04/22 11:50 [facility] [id number] 06/04/22 11:51 [facility] 06/04/22 11:50 Wound Care Nurse 3 #8 L plantar -Ulcer Cleansing Rinsed/ Irrigated with Saline -Foul Odor after Cleansing No -Primary Dressing Applied C Hydrogel ($) -Other Dressing ABD, DRSG PER [place] [employer] DEVELOPER -Primary Dressing Covered/Secured with Dry Gauze & Roll Gauze, Secured with Tape #7 L med. foot -Ulcer Cleansing Rinsed/ Irrigated with Saline -Foul Odor after Cleansing No -Primary Dressing Applied Other -Other Dressing HYDROGEL; ABD, DRSG PER [place] [employer] SOFTWARE DEVELOPER -Primary Dressing Covered/Secured with Dry Gauze & Roll Gauze, Secured with Tape #5 L lateral foot cluster -Ulcer Cleansing Rinsed/ Irrigated with Saline -Foul Odor after Cleansing No -Primary Dressing Applied Other -Other Dressing HYDROGEL; DRSG PER [place] [employer] SOFTWARE DEVELOPER -Primary Dressing Covered/Secured with Dry Gauze & Roll Gauze, Secured with Tape #4 L lateral heel -Ulcer Cleansing Rinsed/ Irrigated with Saline -Foul Odor after Cleansing No -Primary Dressing Applied Other -Other Dressing HYDROGEL; DRSG PER [place] [employer] SOFTWARE DEVELOPER -Primary Dressing Covered/Secured with Dry Gauze & Roll Gauze, Secured with Tape Treatment Response Procedure Tolerated Well Pain Scale: 0-10 Numeric Is Patient Pain Free? Yes WC - Visit Discharge Discharge Condition Stable Ambulatory Status Ambulatory Transportation Private Auto Assessment/Plan Assessment/Plan (1) Type 2 diabetes mellitus with diabetic polyneuropathy: CODE(S): E11.42 - Type 2 diabetes mellitus with diabetic polyneuropathy (2) Peripheral vascular disease, unspecified: CODE(S): I73.9 - Peripheral vascular disease, unspecified (3) Non-pressure chronic ulcer of other part of left foot with fat layer exposed: CODE(S): L97.522 - Non-pressure chronic ulcer of other part of left foot with fat layer exposed PLAN: Exam performed. Wounds improving at this time. Patient offloading site with surgical shoe and offloading pad. Discussed additional offloading including complete nonweightbearing with knee scooter walker or total contact casting. Patient being followed by vascular surgery, awaiting ultrasound. We will continue to continue to follow this. Patient's left foot wounds x5 were excisionally debrided down to including level of subcutaneous tissue of all nonviable tissue using a 5 mm dermal curette without incident. Patient consented procedure tolerated procedure well hemostasis obtained with light compression. No anesthesia due to neuropathy. Healthy granular bleeding noted. Patient evaluated by vascular surgery awaiting new arterial studies will consider intervention Will consider additional nutritional supplementation, advanced wound care products, advancement of offloading the left foot. Patient at this time will dressed site with Ida DSD and follow-up in 1 week.
[2022-07-02 10:00] VITALS: BP 135/81; PULSE 91; RESP 20; TEMP 36; BMI 19.6
--- NOTE | 2022-07-02 10:28 | PN.PCM_ITS ---
History of Present Illness Date of Service: 07/02/22 Chief Complaint: Left heel and lateral foot ulcerations osteomyelitis Peripheral vascular disease History of Wound: 77-year-old male seen for new onset ulcerations to plantar left heel and left forefoot. 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 Patient had all of the wounds healed but noted a recent fall and now has 5 wounds. He denies constitutional symptoms currently. Patient is awaiting evaluation by vascular surgery. Patient is offloading the sites with a surgical shoe and developed an offloading pad to take pressure off the forefoot TMA site as well as the plantar heel. Notes improvement today. Awaiting v ascular studies 07/11/2022. Objective Data Objective Data Vital Signs: Vital Signs Temp Pulse Resp BP O2 Del Method 96.8 F L 91 20 H 135/81 H Room Air 07/02/22 10:00 07/02/22 10:00 07/02/22 10:00 07/02/22 10:00 06/11/22 10:13 Oxygen Delivery Method Room Air Weight: 63.957 kg Body Mass Index (BMI) 19.6 Physical Exam Narrative Patient is alert and oriented to person place and time. Patient ambulates assisted by walker and surgical shoe to the left foot. Vascular: Dorsalis pedis and posterior tibial pulses nonpalpable to the left lower extremity. Biphasic on Doppler examination. Atrophic skin changes noted. Neurologic: Light touch protective sensation absent to bilateral feet. Dermatologic: Full-thickness wounds x5 to left foot. First wound is along the medial aspect of the transmetatarsal incisional site there is 1 along the central aspect of the incisional site and one along the lateral aspect of the incisional site a fourth 1 along the plantar aspect of the first metatarsal shaft and one to the plantar lateral heel. The medial 3 wounds demonstrate necrotic wound bases upon debridement demonstrated healthy granular bleeding. No evidence of deep probing undermining. There is resolving erythema and edema to the foot. No evidence of purulent drainage. Plantar lateral heel wound demonstrates healthy granular base no deep probing undermining or signs of infection. Lateral incisional site wound demonstrates healthy granular base no deep probing undermining or signs of infection. These wounds demonstrate decent bleeding upon debridement with clean granular bases. Musculoskeletal: Left TMA with ankle instability noted. Muscular strength 4 out of 5 to bilateral lower extremity compartments. No other gross deformities. Debridement Note Debridement Note Post-Debridement Measurements and Additional Note: Post-Debridement Measurements/Treatment WC - Nurse 1 - General Ulcer Assessment Start: 06/04/22 10:55 Freq: Status: Active Protocol: YANNI Activity Type Activity Date Activity User E-sign Co-sign Detail Recorded Client Recorded Date Recorded By Document 06/04/22 10:55 BM [id number] 06/04/22 11:00 BMF Document 06/11/22 10:13 BMF [id number] 06/11/22 10:22 BMF Document 07/02/22 10:00 DL [id number] 07/02/22 10:12 DL 06/04/22 06/11/22 07/02/22 10:55 10:13 10:00 - Today's Visit Information Type of service Follow-up Visit Follow-up Visit Follow-up Visit (Physician/[employer]Y MANAGER (Physician/[employer] DUTY MANAGER (Physician/[employer]UTY MANAGER ) ) ) Arrival Mode Ambulatory Ambulatory Ambulatory Transfer Assistance Transfer Board None None Accompanied by YUGN Patient Identification Verified (Name & Yes Yes Yes ) Patient Requires Transmission-Based No No No Precautions Finger Stick Blood Sugar(mg/dl) (if 198 indicated): Blood Sugar Stated by Patient Height and Weight Body Mass Index (BMI) 19.6 19.6 19.6 BMI Classification Normal Normal Normal Vital Signs Temperature (97.8 F-99.1 F) 96.8 F L Temperature Source Temporal Pulse Rate (60-100) 98 93 91 Pulse Location Monitor Monitor Monitor Respiratory Rate (12-18) 16 20 H Respiratory rate source Observation Observation Observation Oxygen Delivery Method Room Air Room Air Blood Pressure (90/60-120/80) 123/57 H 144/99 H 135/81 H Blood Pressure Mean (mm Hg) 79 114 99 Source Monitor Monitor Monitor Position Sitting Sitting Blood Pressure Location Left Arm Right Arm History Since Last Visit- (Skip if this is Patient's initial visit) Have you changed medications since your No No No last visit? Any new allergies or adverse reactions No No No Had a fall/change in ADL's that may No No No increase risk of falls Signs or symptoms of abuse and/or No No No neglect since last visit Have you been in the hospital since your No No No last visit? Has dressing in place as prescribed Yes Yes Yes Has compression in place as prescribed N/A N/A N/A Has offloadiing in place as prescribed Yes Yes Yes Experienced any changes in pain level or No No No management Left Footwear Surgical Shoe Surgical Shoe Removable Cast with pressure with pressure Walker/Walking relief insole relief insole Boot Right Footwear Regular Shoe Regular Shoe Pain Scale: 0-10 Numeric Is Patient Pain Free? Yes Yes Yes WC - Nurse 1 - General Ulcer Measurement Start: 06/04/22 10:55 Freq: Status: Active Protocol: Activity Type Activity Date Activity User E-sign Co-sign Detail Recorded Client Recorded Date Recorded By Document 06/04/22 10:55 [facility] [id number] 06/04/22 11:00 [facility] Document 06/11/22 10:13 BM [id number] 06/11/22 10:22 BM Document 07/02/22 10:00 DL [id number] 07/02/22 10:12 DL 06/04/22 06/11/22 07/02/22 10:55 10:13 10:00 Wound Center Nurse 1 #8 L plantar -Combined with other wound No No -Current Size (cm) - Length 0.5 0.5 0.3 -Current Size (cm) - Width 0.5 0.5 0.3 -Current Size (cm) - Depth 0.2 0.2 0.2 -Total Square Cm 0.25 0.25 0.09 -Date of Last Picture (Recall this 06/04/22 06/11/22 field) -Photo Taken Yes Yes Yes -Epithelialization None Present None Present -Tunneling No No -Undermining/Tunneling No No -Maximum Distance #2 (cm) 0.2 -Circular Undermining No No Yes -Exudate Amt Small Small Small -Exudate Type Serosanguineous Serosanguineous -Wound Margin Distinct, Distinct, Distinct, Outline Outline Outline Attached Attached Attached -Granulation Amt Large (67-100%) Small (1-33%) -Granulation Quality Red Red -Slough/Fibrin Yes Yes -Necrosis Amt Small (1-33%) Medium (34-66%) None Present (0 %) -Necrotic Tissue Type Adherent Slough Adherent Slough -Structure Exposed N/A -Texture (Stacy-wound Skin Appearance) Assessed, Assessed, Scarring Scarring Scarring -Moisture (Stacy-wound Skin Appearance) Assessed,Dry/ Assessed,Dry/ Scaly Scaly -Color (Stacy-wound Skin Appearance) Assessed Assessed No Abnormality -Temperature (Stacy-wound Skin No Abnormality No Abnormality No Abnormality Appearance) (Pt Warm) (Pt Warm) (Pt Warm) -Tenderness on Palpation (Stacy-wound No No No Skin Appearance) -Ulcer Cleansing Rinsed/ Rinsed/ Soap and Water Irrigated with Irrigated with Saline Saline -Foul Odor after Cleansing No No No -Anesthetic Used 5% Lidocaine 5% Lidocaine 4% Lidocaine Gel Gel Solution #7 L med. foot -Combined with other wound No No -Current Size (cm) - Length 1.1 0.5 1.2 -Current Size (cm) - Width 0.5 1 0.7 -Current Size (cm) - Depth 0.1 0.3 0.3 -Total Square Cm 0.55 0.5 0.84 -Date of Last Picture (Recall this 06/04/22 06/11/22 field) -Photo Taken Yes Yes Yes -Epithelialization None Present None Present -Tunneling No No -Undermining/Tunneling No Yes -Undermining/Tunneling Starts (O'clock 1 ) -Undermining/Tunneling Ends (O'clock) 4 -Maximum Distance (cm) 0.2 -Circular Undermining No No -Exudate Amt Medium Medium Medium -Exudate Type Serosanguineous Serosanguineous Serosanguineous -Wound Margin Distinct, Distinct, Distinct, Outline Outline Outline Attached Attached Attached -Granulation Amt None Present (0 Small (1-33%) Large (67-100%) %) -Granulation Quality Red Pale,[place] -Slough/Fibrin Yes Yes -Necrosis Amt Large (67-100%) Medium (34-66%) Small (1-33%) -Necrotic Tissue Type Adherent Slough Adherent Slough Adherent Slough -Structure Exposed N/A -Texture (Stacy-wound Skin Appearance) Assessed, Assessed, Scarring Scarring Scarring -Moisture (Stacy-wound Skin Appearance) Assessed,Dry/ Assessed,Dry/ Dry/Scaly Scaly Scaly -Color (Stacy-wound Skin Appearance) Assessed Assessed -Temperature (Stacy-wound Skin No Abnormality No Abnormality No Abnormality Appearance) (Pt Warm) (Pt Warm) (Pt Warm) -Tenderness on Palpation (Stacy-wound No No No Skin Appearance) -Ulcer Cleansing Rinsed/ Rinsed/ Soap and Water Irrigated with Irrigated with Saline Saline -Foul Odor after Cleansing No No No -Anesthetic Used 5% Lidocaine 5% Lidocaine 4% Lidocaine Gel Gel Solution #5 L lateral foot cluster -Combined with other wound No No -Current Size (cm) - Length 0.6 0.4 1 -Current Size (cm) - Width 0.3 0.7 0.7 -Current Size (cm) - Depth 0.1 0.2 0.1 -Total Square Cm 0.18 0.28 0.7 -Date of Last Picture (Recall this 06/04/22 06/11/22 field) -Photo Taken Yes Yes Yes -Epithelialization Small 1-33% None Present -Tunneling No No -Undermining/Tunneling No Yes -Undermining/Tunneling Starts (O'clock 7 ) -Undermining/Tunneling Ends (O'clock) 4 -Maximum Distance (cm) 0.2 -Circular Undermining No No -Exudate Amt Small Medium Small -Exudate Type Serosanguineous Serosanguineous Serosanguineous -Wound Margin Flat & Intact Distinct, Distinct, Outline Outline Attached Attached -Granulation Amt Large (67-100%) Large (67-100%) Small (1-33%) -Granulation Quality Red Red [place] -Slough/Fibrin No Yes -Necrosis Amt None Present (0 Small (1-33%) Small (1-33%) %) -Necrotic Tissue Type Adherent Slough -Texture (Stacy-wound Skin Appearance) Assessed, Assessed, Scarring Scarring Scarring -Moisture (Stacy-wound Skin Appearance) Assessed,Dry/ Assessed,Dry/ Dry/Scaly Scaly Scaly -Color (Stacy-wound Skin Appearance) Assessed Assessed No Abnormality -Temperature (Stacy-wound Skin No Abnormality No Abnormality No Abnormality Appearance) (Pt Warm) (Pt Warm) (Pt Warm) -Tenderness on Palpation (Stacy-wound No No No Skin Appearance) -Ulcer Cleansing Rinsed/ Rinsed/ Soap and Water Irrigated with Irrigated with Saline Saline -Foul Odor after Cleansing No No No -Anesthetic Used 5% Lidocaine 5% Lidocaine 4% Lidocaine Gel Gel Solution #4 L lateral heel -Combined with other wound No No -Current Size (cm) - Length 0.4 0.4 0.1 -Current Size (cm) - Width 0.4 0.4 0.1 -Current Size (cm) - Depth 0.2 0.3 0.1 -Total Square Cm 0.16 0.16 0.01 -Date of Last Picture (Recall this 06/04/22 06/11/22 field) -Photo Taken Yes Yes Yes -Epithelialization None Present None Present -Tunneling No No -Undermining/Tunneling No No -Circular Undermining No No -Exudate Amt Medium Medium None Present -Exudate Type Serosanguineous Serosanguineous -Wound Margin Distinct, Distinct, Thickened Outline Outline Attached Attached -Granulation Amt Medium (34-66%) Large (67-100%) Large (67-100%) -Granulation Quality Red Red Pale,[place] -Slough/Fibrin Yes Yes -Necrosis Amt Medium (34-66%) Small (1-33%) None Present (0 %) -Necrotic Tissue Type Adherent Slough Adherent Slough -Structure Exposed N/A -Texture (Stacy-wound Skin Appearance) Assessed, Assessed, Scarring Scarring Scarring -Moisture (Stacy-wound Skin Appearance) Assessed,Dry/ Assessed,Dry/ Dry/Scaly Scaly Scaly -Color (Stacy-wound Skin Appearance) Assessed Assessed No Abnormality -Temperature (Stacy-wound Skin No Abnormality No Abnormality No Abnormality Appearance) (Pt Warm) (Pt Warm) (Pt Warm) -Tenderness on Palpation (Stacy-wound No No Skin Appearance) -Ulcer Cleansing Rinsed/ Rinsed/ Soap and Water Irrigated with Irrigated with Saline Saline -Foul Odor after Cleansing No No No -Anesthetic Used 5% Lidocaine 5% Lidocaine 4% Lidocaine Gel Gel Solution WC - Nurse 2 - General Ulcer CM Notes Start: 06/04/22 10:55 Freq: Status: Active Protocol: Activity Type Activity Date Activity User E-sign Co-sign Detail Recorded Client Recorded Date Recorded By Document 06/04/22 11:42 OPAL [id number] 06/04/22 12:23 Document 06/11/22 10:52 OPAL [id number] 06/11/22 10:55 OPAL Document 07/02/22 10:20 OPAL [id number] 07/02/22 10:24 OPAL 06/04/22 06/11/22 07/02/22 11:42 10:52 10:20 Wound Center Nurse 2 #8 L plantar -Time 12:20 10:52 10:20 -Correct Patient Yes Yes Yes -Correct Side, Site, Position Yes Yes Yes -Correct Procedure Yes Yes Yes -Procedure Performed Yes Yes Yes -Type of Procedure Debridement Debridement Debridement -Clinical Debridement Subcutaneous Subcutaneous Subcutaneous -Tissue Removed Subcutaneous Subcutaneous Subcutaneous -Post Debridement (cm) - Length 0.6 0.6 0.4 -Post Debridement (cm) - Width 0.5 0.5 0.3 -Post Debridement (cm) - Depth 0.2 0.2 0.2 -Total Square (Post) (cm) 0.30 0.30 0.12 -Area of Debridement (cm) - Length 0.6 0.6 0.4 -Area of Debridement (cm) - Width 0.5 0.5 0.3 -Total Square (Area) (cm) 0.30 0.30 0.12 -Tunneling No No No -Undermining/Tunneling No No No -Circular Undermining No No No -Wound/Ulcer Outcome Not Healed Not Healed Not Healed -Ulcer Cleansing Rinsed/ Rinsed/ Rinsed/ Irrigated with Irrigated with Irrigated with Saline Saline Saline -Foul Odor after Cleansing Yes, Due to No No Product Use -Bioengineered Tissue No No No -Bleeding Controlled with Pressure Pressure Pressure -Treatment Response Procedure Procedure Procedure Tolerated Well Tolerated Well Tolerated Well -Offloading Yes Yes Yes -Type of Offloading Surgical Shoe Surgical Shoe Surgical Shoe -Debridement - Subq, 1st 20sq cm No No No #7 L med. foot -Time 12:21 10:52 10:21 -Correct Patient Yes Yes Yes -Correct Side, Site, Position Yes Yes Yes -Correct Procedure Yes Yes Yes -Procedure Performed Yes Yes Yes -Type of Procedure Debridement Debridement Debridement -Clinical Debridement Subcutaneous Subcutaneous Subcutaneous -Tissue Removed Subcutaneous Subcutaneous Subcutaneous -Post Debridement (cm) - Length 1.2 0.6 1.2 -Post Debridement (cm) - Width 0.5 1.1 0.8 -Post Debridement (cm) - Depth 0.1 0.3 0.3 -Total Square (Post) (cm) 0.60 0.66 0.96 -Area of Debridement (cm) - Length 1.2 0.6 1.2 -Area of Debridement (cm) - Width 0.5 1.1 0.8 -Total Square (Area) (cm) 0.60 0.66 0.96 -Tunneling No No No -Undermining/Tunneling No No No -Circular Undermining No No No -Wound/Ulcer Outcome Not Healed Not Healed Not Healed -Ulcer Cleansing Rinsed/ Rinsed/ Rinsed/ Irrigated with Irrigated with Irrigated with Saline Saline Saline -Foul Odor after Cleansing No No No -Bioengineered Tissue No No No -Bleeding Controlled with Pressure Pressure Pressure -Treatment Response Procedure Procedure Procedure Tolerated Well Tolerated Well Tolerated Well -Offloading Yes Yes Yes -Type of Offloading Surgical Shoe Surgical Shoe Surgical Shoe -Debridement - Subq, 1st 20sq cm No No No #5 L lateral foot cluster -Time 12:22 10:53 10:22 -Correct Patient Yes Yes Yes -Correct Side, Site, Position Yes Yes Yes -Correct Procedure Yes Yes Yes -Procedure Performed Yes Yes Yes -Type of Procedure Debridement Debridement Debridement -Clinical Debridement Subcutaneous Subcutaneous Subcutaneous -Tissue Removed Dermis Subcutaneous Subcutaneous -Post Debridement (cm) - Length 0.6 0.5 1 -Post Debridement (cm) - Width 0.4 0.7 0.8 -Post Debridement (cm) - Depth 0.1 0.2 0.1 -Total Square (Post) (cm) 0.24 0.35 0.8 -Area of Debridement (cm) - Length 0.6 0.5 1.0 -Area of Debridement (cm) - Width 0.4 0.7 0.8 -Total Square (Area) (cm) 0.24 0.35 0.80 -Tunneling No No No -Undermining/Tunneling No No No -Circular Undermining No No No -Wound/Ulcer Outcome Not Healed Not Healed Not Healed -Ulcer Cleansing Rinsed/ Rinsed/ Rinsed/ Irrigated with Irrigated with Irrigated with Saline Saline Saline -Foul Odor after Cleansing No No No -Bioengineered Tissue No No No -Bleeding Controlled with Pressure Pressure Pressure -Treatment Response Procedure Procedure Procedure Tolerated Well Tolerated Well Tolerated Well -Offloading Yes Yes Yes -Type of Offloading Surgical Shoe Surgical Shoe Surgical Shoe -Debridement - Subq, 1st 20sq cm No No No #4 L lateral heel -Time 12:22 10:54 10:23 -Correct Patient Yes Yes Yes -Correct Side, Site, Position Yes Yes Yes -Correct Procedure Yes Yes Yes -Procedure Performed Yes Yes Yes -Type of Procedure Debridement Debridement Debridement -Clinical Debridement Subcutaneous Subcutaneous Subcutaneous -Tissue Removed Subcutaneous Subcutaneous Subcutaneous -Post Debridement (cm) - Length 0.5 0.5 0.3 -Post Debridement (cm) - Width 0.4 0.4 0.5 -Post Debridement (cm) - Depth 0.2 0.3 0.1 -Total Square (Post) (cm) 0.20 0.20 0.15 -Area of Debridement (cm) - Length 0.5 0.5 0.3 -Area of Debridement (cm) - Width 0.4 0.4 0.5 -Total Square (Area) (cm) 0.20 0.20 0.15 -Tunneling No No No -Undermining/Tunneling No No No -Circular Undermining No No No -Wound/Ulcer Outcome Not Healed Not Healed Not Healed -Ulcer Cleansing Rinsed/ Rinsed/ Wound Cleanser Irrigated with Irrigated with Saline Saline -Foul Odor after Cleansing No No No -Bioengineered Tissue No No No -Bleeding Controlled with Pressure Pressure Pressure -Treatment Response Procedure Procedure Procedure Tolerated Well Tolerated Well Tolerated Well -Offloading Yes Yes Yes -Type of Offloading Surgical Shoe Surgical Shoe Surgical Shoe -Debridement - Subq, 1st 20sq cm Yes Yes Yes Pain Scale: 0-10 Numeric Is Patient Pain Free? Yes Yes Yes WC - Nurse 3 - General Ulcer D/C NN Start: 06/04/22 10:55 Freq: Status: Active Protocol: Activity Type Activity Date Activity User E-sign Co-sign Detail Recorded Client Recorded Date Recorded By Document 06/04/22 11:50 [facility] [id number] 06/04/22 11:51 [facility] Document 06/11/22 11:07 [facility] [id number] 06/11/22 11:08 [facility] 06/04/22 06/11/22 11:50 11:07 Wound Care Nurse 3 #8 L plantar -Ulcer Cleansing Rinsed/ Rinsed/ Irrigated with Irrigated with Saline Saline -Foul Odor after Cleansing No No -Primary Dressing Applied C Hydrogel ($) C Hydrogel ($) -Other Dressing ABD, DRSG PER [employer] -Primary Dressing Covered/Secured with Dry Gauze & Dry Gauze & Roll Gauze, Roll Gauze, Secured with Secured with Tape Tape -Other Covering ABD #7 L med. foot -Ulcer Cleansing Rinsed/ Rinsed/ Irrigated with Irrigated with Saline Saline -Foul Odor after Cleansing No No -Primary Dressing Applied Other -Other Dressing HYDROGEL; ABD, HYDROGEL DRSG PER [employer] -Primary Dressing Covered/Secured with Dry Gauze & Dry Gauze & Roll Gauze, Roll Gauze, Secured with Secured with Tape Tape #5 L lateral foot cluster -Ulcer Cleansing Rinsed/ Rinsed/ Irrigated with Irrigated with Saline Saline -Foul Odor after Cleansing No No -Primary Dressing Applied Other -Other Dressing HYDROGEL; DRSG HYDROGEL PER [employer] -Primary Dressing Covered/Secured with Dry Gauze & Dry Gauze & Roll Gauze, Roll Gauze, Secured with Secured with Tape Tape -Other Covering ABD #4 L lateral heel -Ulcer Cleansing Rinsed/ Rinsed/ Irrigated with Irrigated with Saline Saline -Foul Odor after Cleansing No No -Primary Dressing Applied Other -Other Dressing HYDROGEL; DRSG HYDROGEL PER [employer] -Primary Dressing Covered/Secured with Dry Gauze & Dry Gauze & Roll Gauze, Roll Gauze, Secured with Secured with Tape Tape -Other Covering ABD Treatment Response Procedure Procedure Tolerated Well Tolerated Well Pain Scale: 0-10 Numeric Is Patient Pain Free? Yes Yes WC - Visit Discharge Discharge Condition Stable Stable Ambulatory Status Ambulatory Ambulatory Transportation Private Auto Private Auto Accompanied by Assessment/Plan Assessment/Plan (1) Type 2 diabetes mellitus with diabetic polyneuropathy: CODE(S): E11.42 - Type 2 diabetes mellitus with diabetic polyneuropathy (2) Peripheral vascular disease, unspecified: CODE(S): I73.9 - Peripheral vascular disease, unspecified (3) Non-pressure chronic ulcer of other part of left foot with fat layer exposed: CODE(S): L97.522 - Non-pressure chronic ulcer of other part of left foot with fat layer exposed PLAN: Exam performed. Wounds improving at this time. Patient appears to lost weight. Discussed Oziel supplementation. Patient offloading site with surgical shoe and offloading pad. Discussed additional offloading including complete nonweightbearing with knee scooter walker or total contact casting. Patient being followed by vascular surgery, awaiting ultrasound. We will continue to continue to follow this. Patient missed previous study scheduled for 07/11/2022. Patient's left foot wounds x5 were excisionally debrided down to including level of subcutaneous tissue of all nonviable tissue using a 5 mm dermal curette w [facility] incident. Patient consented procedure tolerated procedure well hemostasis obtained with light compression. No anesthesia due to neuropathy. Healthy granular bleeding noted. Patient evaluated by vascular surgery awaiting new arterial studies will consider intervention Will consider additional nutritional supplementation, advanced wound care products, advancement of offloading the left foot. Patient at this time will dressed site with Ida DSD and follow-up in 1 week.
== END 2022-07-03 23:59 | disposition home or self-care (01) ==
LOC: WC 10:00
PROVIDERS: PCP Family Medicine; Visit Provider Podiatrist
DX: E11.621 Type 2 diabetes mellitus with foot ulcer (principal); E11.51 Type 2 diabetes mellitus with diabetic peripheral angiopathy without gangrene; L97.522 Non-pressure chronic ulcer of other part of left foot with fat layer exposed; E11.42 Type 2 diabetes mellitus with diabetic polyneuropathy
CPT/HCPCS: 11042

== ENCOUNTER 2022-07-02 11:18 | Outpatient (CLI) | payer MEDICARE, OTHER, SELFPAY ==
[2022-07-02 12:37] LABS: Absolute Lymphocyte Count 2.02 X10^3/uL (0.83-4.51); Absolute Neutrophil Count 4.3 X10^3/uL (2.0-7.7); Basophil# 0.04 X10^3/uL; Basophil% 0.6 % (0-1); Eosinophil# 0.07 X10^3/uL; Lymphocyte # 2.02 X10^3/ul (0.83-4.51); Lymphocyte % 29.1 % (19-41); Mean Corp Hgb Conc 32.6 g/dL (32-36); Mean Corpuscular Hgb 30.5 pg (27.0-32.0); Mean Corpuscular Volume 93.7 fL (80-94); Mean Platelet Vol. 9.8 fl (6.2-12.0); Monocyte# 0.45 X10^3/uL; Monocyte% 6.5 % (0-10); NRBC Flagged by Analyzer 0 % (0-5); Neutrophil # 4.34 X10^3/uL (2.7-7.7); Neutrophil % 62.5 % (47-70); Platelet Count 233 K/mm3 (150-450); RBC Distribution Width CV 12.7 % (11.6-14.6); RBC Distribution Width SD 43.7 fl (35.1-43.9); Red Blood Count 4.59 M/mm3 (4.6-6.2); White Blood Count 6.9 K/mm3 (4.4-11.0)
[2022-07-02 13:33] LABS: Vitamin D,25 Hydroxy 41.6 ng/mL
[2022-07-02 13:40] LABS: ALB/GLOB Ratio 1.5 RATIO (0.9-2.4); AST(SGOT) 14 U/L (15-37); Alanine Aminotransfer ALT/SGPT 29 U/L (16-61); Albumin, Serum 3.7 g/dL (3.2-5.0); Alkaline Phosphatase 67 U/L (45-117); Anion Gap 11 (5-15); BUN 25 mg/dL (7-18); BUN/Creat Ratio 22.3 RATIO (10-20); Calcium,Total 9.1 mg/dL (8.5-10.1); Chloride 104 mmol/L (98-107); Cholesterol 112 mg/dL (200); Creatinine, Serum 1.12 mg/dL (0.70-1.30); EST Glomerular Filtration Rate 67 mL/min (>60); Est Glom Filt Rate - Afr Amer 81 mL/min (>60); Globulin 2.4 g/dL (2.2-4.2); Glucose 143 mg/dL (74-106); High Density Lipoprotein 56 mg/dL; Magnesium 1.9 mg/dL (1.6-2.6); Potassium 3.9 mmol/L (3.5-5.1); Protein, Total 6.1 g/dL (6.4-8.2); Sodium Level 139 mmol/L (136-145); Triglycerides 83 mg/dL; Very Low Density Lipoprotein 17 mg/dL (5-40)
[2022-07-02 13:50] LABS: Hemoglobin A1c 7.8 % (3.8-5.6)
== END 2022-07-02 23:59 | disposition home or self-care (01) ==
LOC: MFPLAB 11:21
PROVIDERS: PCP Family Medicine; Referring Provider Family Medicine; Visit Provider Family Medicine
DX: E11.42 Type 2 diabetes mellitus with diabetic polyneuropathy (principal); E11.621 Type 2 diabetes mellitus with foot ulcer; E11.51 Type 2 diabetes mellitus with diabetic peripheral angiopathy without gangrene; L97.522 Non-pressure chronic ulcer of other part of left foot with fat layer exposed; I73.9 Peripheral vascular disease, unspecified; E55.9 Vitamin D deficiency, unspecified; I25.10 Atherosclerotic heart disease of native coronary artery without angina pectoris
CPT/HCPCS: 11042; 36415; 80053; 80061; 82306; 83036; 83735; 85025

== ENCOUNTER → 2022-07-09 | Outpatient (CLI) | payer MEDICARE, OTHER, SELFPAY ==
[2022-07-09 18:19] LABS: Microalbumin,Random Urine 80.8 mg/L (NO RANGE EST.); Microalbumin:Creatinine Ratio 97.8 mg/g CRE (<30 mg/g CRE)
== END | disposition home or self-care (01) ==
LOC: LABSPEC 14:57
PROVIDERS: PCP Family Medicine; Referring Provider Family Medicine; Visit Provider Family Medicine
DX: E11.9 Type 2 diabetes mellitus without complications (principal)
CPT/HCPCS: 82043; 82570

== ENCOUNTER → 2022-07-11 | Outpatient (CLI) | payer MEDICARE, OTHER, SELFPAY ==
--- NOTE | 2022-07-11 12:52 | ART_ITS ---
Reason For Study: PAD Procedure A bilateral lower extremity continuous wave Doppler with analog waveform analysis,segmental pressures,and ankle brachial indexes without exercise. Left Segmental Pressures Left brachial= 124mmHg. Left posterior tibial artery = >254mmHg. Left dorsalis pedis artery = >254mmHg. The left posterior tibial artery waveforms are monophasic. The left dorsalis pedis waveforms are monophasic. Right Segmental Pressures Right brachial= 116mmHg. Right posterior tibial artery = >254mmHg. Right dorsalis pedis artery = >254mmHg. Right digit = 164 mmHg. The right posterior tibial artery waveforms are biphasic. The right dorsalis pedis waveforms are biphasic. Indices The right ankle brachial index by the posterior tibial artery is N/C. The right ankle brachial index by the dorsalis pedis is N/C. The right digital-brachial index is 1.32. The left ankle brachial index by the posterior tibial artery is N/C. The left ankle brachial index by the dorsalis pedis is N/C. VL/Lower Ext Art Exam w/o Exercis Interpretation Summary Unable to obtain right PAYAL due to non-compressible vessels. Doppler/PVR wavefor ms of the right leg moderately diminished distal SFA/popliteal, severely diminished infrapopliteal. Unable to obtain left PAYAL due to non-compressible vessels. Doppler/PVR waveform s of the left leg moderately diminished distal SFA/popliteal, severely dimnished infrapopliteal. Ordering Physician: Wong Camp Referring Physician: Wong Camp Performed By: John Gray, RVT
--- NOTE | 2022-07-11 12:52 | CDU_ITS ---
Reason For Study: Stenosis Rt. Velocities/BP Lt. Velocities/BP Prox CCA 45.3/12.2 cm/sec. Prox CCA 54.0/11.3 cm/sec. Mid CCA 51.4/12.2 cm/sec. Mid CCA 73.5/15.3 cm/sec. Dist CCA 45.3/12.2 cm/sec. Dist CCA 72.4/13.1 cm/sec. Prox ICA 67.4/15.8 cm/sec. Prox ICA 103.9/16.3 cm/sec. Mid ICA 50.2/12.2 cm/sec. Mid ICA 58.5/11.2 cm/sec. Dist ICA 34.8/7.8 cm/sec. Dist ICA 73.6/23.2 cm/sec. Rt. ICA/CCA = 1.3. Lt. ICA/CCA = 1.4. Prox ECA 84.6/10.9 cm/sec. Prox ECA 85.4/0.0 cm/sec. Rt. Vert. 27.8/6.9 cm/sec. Lt. Vert. 54.8/14.2 cm/sec. Right Extracranial There is heterogeneous, irregular atherosclerotic plaque noted in the right common carotid artery. There is heterogeneous, irregular atherosclerotic plaque noted in the right internal carotid artery. The atherosclerotic plaque causes acoustic shadowing. No previous stenting noted. There is heterogeneous, irregular atherosclerotic plaque noted in the right external carotid artery. The atherosclerotic plaque causes acoustic shadowing. Antegrade flow is noted in the right vertebral artery. Left Extracranial There is heterogeneous, irregular atherosclerotic plaque noted in the left common carotid artery. There is heterogeneous, irregular atherosclerotic plaque noted in the left internal carotid artery. The atherosclerotic plaque causes acoustic shadowing. No previous stenting noted. There is heterogeneous, irregular atherosclerotic plaque noted in the left external carotid artery. The atherosclerotic plaque causes acoustic shadowing. Antegrade flow is noted in the left vertebral artery. Procedure Carotid Duplex 29109. This is a Carotid Duplex examination using B-mode, color flow and specral Doppler. The exam was diagnostic. technically difficult exam due to calficific shadowing. Exam performed in department. VL/Carotid Duplex Ultrasound Interpretation Summary Mild (<50%) stenosis right extracranial internal carotid. Mild (<50%) stenosis left extracranial internal carotid. Patent and antegrade vertebrals bilaterally. Limited study due to calcific shadowing, alternative imaging modality may be be neficial Ordering Physician: Wong Camp Referring Physician: Wong Camp Performed By: John Gray, SHEAT
== END | disposition home or self-care (01) ==
LOC: CVS 12:46
PROVIDERS: PCP Family Medicine; Referring Provider Surgery Trauma Surgery; Visit Provider Surgery Trauma Surgery
DX: R55 Syncope and collapse (principal); I73.9 Peripheral vascular disease, unspecified
CPT/HCPCS: 93880; 93923; 93926

== ENCOUNTER → 2022-07-19 | Outpatient (CLI) | payer MEDICARE, OTHER, SELFPAY ==
--- NOTE | 2022-07-19 12:54 | ECHOD_ITS ---
Reason For Study: Murmur Procedure This was a 2D Doppler, Color Flow transthoracic echocardiogram. Myocardial strain analysis was performed in this exam to aid in the assessment of cardiac function. Exam performed in department. Left Ventricle Normal LV size. Mild concentric left ventricular hypertrophy. Left ventricular systolic function is normal. The estimated ejection fraction is 55 %. No regional wall motion abnormalities noted. Right Ventricle Normal RV size. Normal systolic function. Atria The left atrium is moderately enlarged. The right atrium is mildly enlarged. Mitral Valve There is mild to moderate mitral annular calcification. Mild (1+) eccentric mitral valve insufficiency. Tricuspid Valve Normal tricuspid valve. Mild (1+) tricuspid valve insufficiency. Pulmonary artery systolic pressure is 40 mmHg. Aortic Valve Trisinus/trileaflet aortic valve. Mild focal aortic valve calcification. Peak aortic valve gradient 36 mmHg. Mean aortic valve gradient 20 mmHg. Mild to moderate aortic stenosis. Pulmonic Valve Normal pulmonic valve. Mild (1+) pulmonic valve insufficiency. MMode/2D Measurements & Calculations LVIDd: 4.3 cm IVSd: 1.3 cm LVOT diam: 2.1 cm LVIDs: 3.1 cm LVPWd: 1.3 cm LVOT area: 3.5 cm2 RVDd: 3.2 cm FS: 27.6 % Ao root diam: 3.7 cm LAV(MOD-bp): 104.1 ml LA dimension: 5.0 cm Aortic Valve Planimetry: 1.2 cm2 LAV(MOD-bp) Indexed: 56.1 ml/m2 LAV(MOD-sp2): 101.1 ml LAV(MOD-sp4): 91.6 ml LA A4 area: 26.3 cm2 RA A4 area: 23.4 cm2 Time Measurements MV dec time: 0.15 sec Doppler Measurements & Calculations MV E max malcolm: 122.2 cm/sec Lat Peak E' Malcolm: 7.1 cm/sec Med Peak E' Malcolm: 8.8 cm/sec E/E' lat: 17.2 E/E' med: 13.9 MV V2 max: 149.0 cm/sec MV P1/2t max malcolm: 145.4 cm/sec Ao V2 max: 299.7 cm/sec MV max P.9 mmHg MV P1/2t: 58.6 msec Ao max P.9 mmHg MV V2 mean: 63.9 cm/sec Ao V2 mean: 206.9 cm/sec MV mean P.2 mmHg MV dec slope: 726.8 cm/sec2 Ao mean P.5 mmHg MV V2 VTI: 28.2 cm MVA(P1/2t): 3.8 cm2 Ao V2 VTI: 63.7 cm AV (velocity ratio): 0.24 MVA(VTI): 1.9 cm2 KAVON(I,D): 0.85 cm2 KAVON(V,D): 0.84 cm2 LV V1 max: 71.1 cm/sec SV(LVOT): 53.8 ml TR max malcolm: 301.9 cm/sec LV V1 max P.0 mmHg TR max P.5 mmHg LV V1 mean P.2 mmHg LV V1 mean: 51.7 cm/sec LV V1 VTI: 15.2 cm ECHO/Echo Complete Interpretation Summary Normal LV size. Mild concentric left ventricular hypertrophy. Left ventricular systolic function is normal. The estimated ejection fraction is 55 %. The left atrium is moderately enlarged. Mild (1+) eccentric mitral valve insufficiency. Mild focal aortic valve calcification. Mean aortic valve gradient 20 mmHg. Mild to moderate aortic stenosis. The global longitudinal strain is moderately abnormal. The global longitudinal strain = -12.2 with apical sparing% (abnormal). Ordering Physician: Jovanni Rodney Referring Physician: Jerry Dee Performed By: Emerson Turner RCS
== END | disposition home or self-care (01) ==
LOC: CVS 12:53
PROVIDERS: PCP Family Medicine; Referring Provider Internal Medicine Cardiovascular Disease; Visit Provider Internal Medicine Cardiovascular Disease
DX: I50.32 Chronic diastolic (congestive) heart failure (principal)
CPT/HCPCS: 93306

== ENCOUNTER 2022-07-30 10:00 | Outpatient (RCR) | payer MEDICARE, OTHER, SELFPAY ==
[2022-07-04 00:34] VITALS: BP 135/81; PULSE 91; RESP 20; TEMP 36; BMI 19.6
[2022-07-16 09:59] VITALS: BP 147/83; PULSE 91; RESP 16; BMI 19.6
--- NOTE | 2022-07-16 10:27 | PN.PCM_ITS ---
History of Present Illness Date of Service: 07/16/22 Chief Complaint: Left heel and lateral foot ulcerations osteomyelitis Peripheral vascular disease History of Wound: 77-year-old male seen for new onset ulcerations to plantar left heel and left forefoot. 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 Patient had all of the wounds healed but noted a recent fall and now has 5 wounds. He denies constitutional symptoms currently. Patient is awaiting evaluation by vascular surgery. Patient is offloading the sites with a surgical shoe and developed an offloading pad to take pressure off the forefoot TMA site as well as the plantar heel. Notes improvement today. Objective Data Objective Data Vital Signs: Vital Signs Temp Pulse Resp BP O2 Del Method 96.8 F L 91 16 147/83 H Room Air 07/04/22 00:34 07/16/22 09:59 07/16/22 09:59 07/16/22 09:59 07/16/22 09:59 Oxygen Delivery Method Room Air Weight: 63.957 kg Body Mass Index (BMI) 19.6 Physical Exam Narrative Patient is alert and oriented to person place and time. Patient ambulates assisted by walker and surgical shoe to the left foot. Vascular: Dorsalis pedis and posterior tibial pulses nonpalpable to the left lower extremity. Biphasic on Doppler examination. Atrophic skin changes noted. Neurologic: Light touch protective sensation absent to bilateral feet. Dermatologic: Full-thickness wounds x3 to left foot. First wound is along the medial aspect of the transmetatarsal incisional site there is 1 along the central aspect of the incisional site and one along the lateral aspect of the incisional site a fourth 1 along the plantar aspect of the first metatarsal shaft and one to the plantar lateral heel. The medial 3 wounds demonstrate necrotic wound bases upon debridement demonstrated healthy granular bleeding. No evidence of deep probing undermining. There is resolving erythema and edema to the foot. No evidence of purulent drainage. Plantar lateral heel wound demonstrates healthy granular base no deep probing undermining or signs of infection. Lateral incisional site wound demonstrates healthy granular base no deep probing undermining or signs of infection. These wounds demonstrate decent bleeding upon debridement with clean granular bases. Musculoskeletal: Left TMA with ankle instability noted. Muscular strength 4 out of 5 to bilateral lower extremity compartments. No other gross deformities. Debridement Note Debridement Note Post-Debridement Measurements and Additional Note: Post-Debridement Measurements/Treatment WC - Nurse 1 - General Ulcer Assessment Start: 07/16/22 09:59 Freq: Status: Active Protocol: YANNI Activity Type Activity Date Activity User E-sign Co-sign Detail Recorded Client Recorded Date Recorded By Document 07/16/22 09:59 [facility] [id number] 07/16/22 10:10 [facility] 07/16/22 09:59 Height and Weight Body Mass Index (BMI) 19.6 BMI Classification Normal Vital Signs Pulse Rate (60-100) 91 Pulse Location Monitor Respiratory Rate (12-18) 16 Respiratory rate source Observation Oxygen Delivery Method Room Air Blood Pressure (90/60-120/80) 147/83 H Blood Pressure Mean (mm Hg) 104 Source Monitor Position Sitting Blood Pressure Location Left Arm History Since Last Visit- (Skip if this is Patient's initial visit) Have you changed medications since your No last visit? Any new allergies or adverse reactions No Had a fall/change in ADL's that may No increase risk of falls Signs or symptoms of abuse and/or No neglect since last visit Have you been in the hospital since your No last visit? Has dressing in place as prescribed Yes Has compression in place as prescribed N/A Has offloadiing in place as prescribed N/A Experienced any changes in pain level or No management Left Footwear Regular Shoe Right Footwear Regular Shoe Pain Scale: 0-10 Numeric Is Patient Pain Free? Yes - Nurse 1 - General Ulcer Measurement Start: 07/16/22 09:59 Freq: Status: Active Protocol: Activity Type Activity Date Activity User E-sign Co-sign Detail Recorded Client Recorded Date Recorded By Document 07/16/22 09:59 [facility] [id number] 07/16/22 10:10 [facility] 07/16/22 09:59 Wound Center Nurse 1 #8 L plantar -Combined with other wound No -Current Size (cm) - Length 0.2 -Current Size (cm) - Width 0.3 -Current Size (cm) - Depth 0.4 -Total Square Cm 0.06 -Date of Last Picture (Recall this 07/16/22 field) -Photo Taken Yes -Epithelialization Small 1-33% -Tunneling No -Undermining/Tunneling Yes -Undermining/Tunneling Starts (O'clock 1 ) -Undermining/Tunneling Ends (O'clock) 2 -Maximum Distance (cm) 0.2 -Circular Undermining No -Exudate Amt Small -Exudate Type Serous -Wound Margin Distinct, Outline Attached -Granulation Amt Large (67-100%) -Granulation Quality Alden -Slough/Fibrin No -Necrosis Amt None Present (0 %) -Texture (Stacy-wound Skin Appearance) Assessed, Scarring -Moisture (Stacy-wound Skin Appearance) Assessed -Color (Stacy-wound Skin Appearance) Assessed -Temperature (Stacy-wound Skin No Abnormality Appearance) (Pt Warm) -Tenderness on Palpation (Stacy-wound No Skin Appearance) -Ulcer Cleansing Rinsed/ Irrigated with Saline -Foul Odor after Cleansing No -Anesthetic Used 5% Lidocaine Gel #7 L med. foot -Combined with other wound No -Current Size (cm) - Length 0.4 -Current Size (cm) - Width 1.1 -Current Size (cm) - Depth 0.3 -Total Square Cm 0.44 -Date of Last Picture (Recall this 07/16/22 field) -Photo Taken Yes -Epithelialization None Present -Tunneling No -Undermining/Tunneling No -Circular Undermining No -Exudate Amt Medium -Exudate Type Serosanguineous -Wound Margin Distinct, Outline Attached -Granulation Amt None Present (0 %) -Slough/Fibrin Yes -Necrosis Amt Large (67-100%) -Necrotic Tissue Type Adherent Slough -Texture (Stacy-wound Skin Appearance) Assessed, Scarring -Moisture (Stacy-wound Skin Appearance) Assessed -Color (Stacy-wound Skin Appearance) Assessed, Erythema -Temperature (Stacy-wound Skin No Abnormality Appearance) (Pt Warm) -Tenderness on Palpation (Stacy-wound No Skin Appearance) -Ulcer Cleansing Rinsed/ Irrigated with Saline -Foul Odor after Cleansing No -Anesthetic Used 5% Lidocaine Gel #5 L lateral foot cluster -Combined with other wound No -Current Size (cm) - Length 0.5 -Current Size (cm) - Width 0.1 -Current Size (cm) - Depth 0.3 -Total Square Cm 0.05 -Date of Last Picture (Recall this 07/16/22 field) -Photo Taken Yes -Epithelialization None Present -Tunneling No -Undermining/Tunneling No -Circular Undermining No -Exudate Amt Small -Exudate Type Serous -Wound Margin Distinct, Outline Attached -Granulation Amt Large (67-100%) -Granulation Quality Alden -Slough/Fibrin Yes -Necrosis Amt Small (1-33%) -Necrotic Tissue Type Adherent Slough -Texture (Stacy-wound Skin Appearance) Assessed, Scarring -Moisture (Stacy-wound Skin Appearance) Assessed,Dry/ Scaly -Color (Stacy-wound Skin Appearance) Assessed -Temperature (Stacy-wound Skin No Abnormality Appearance) (Pt Warm) -Tenderness on Palpation (Stacy-wound No Skin Appearance) -Ulcer Cleansing Rinsed/ Irrigated with Saline -Foul Odor after Cleansing No -Anesthetic Used 5% Lidocaine Gel #4 L lateral heel -Combined with other wound No -Current Size (cm) - Length 0.1 -Current Size (cm) - Width 0.1 -Current Size (cm) - Depth 0.1 -Total Square Cm 0.01 -Date of Last Picture (Recall this 07/16/22 field) -Photo Taken Yes -Epithelialization Large 67-100% -Tunneling No -Undermining/Tunneling No -Circular Undermining No -Exudate Amt None Present -Wound Margin Distinct, Outline Attached -Texture (Stacy-wound Skin Appearance) Assessed, Scarring -Moisture (Stacy-wound Skin Appearance) Assessed,Dry/ Scaly -Color (Stacy-wound Skin Appearance) Assessed -Temperature (Stacy-wound Skin No Abnormality Appearance) (Pt Warm) -Tenderness on Palpation (Stacy-wound No Skin Appearance) -Ulcer Cleansing Rinsed/ Irrigated with Saline -Foul Odor after Cleansing No -Anesthetic Used 5% Lidocaine Gel Assessment/Plan Assessment/Plan (1) Type 2 diabetes mellitus with diabetic polyneuropathy: CODE(S): E11.42 - Type 2 diabetes mellitus with diabetic polyneuropathy (2) Peripheral vascular disease, unspecified: CODE(S): I73.9 - Peripheral vascular disease, unspecified (3) Non-pressure chronic ulcer of other part of left foot with fat layer exposed: CODE(S): L97.522 - Non-pressure chronic ulcer of other part of left foot with fat layer exposed PLAN: Exam performed. Wounds improving at this time. Patient appears to lost weight. Discussed Oziel supplementation. Patient offloading site with surgical shoe and offloading pad. Discussed additional offloading including complete nonweightbearing with knee scooter walker or total contact casting. Arterial studies demonstrate severe ifrapopliteal disease to left lower extremity, pending vascular evaluation. Patient's left foot wounds x3 were excisionally debrided down to including level of subcutaneous tissue of all nonviable tissue using a 5 mm dermal curette without incident. Patient consented procedure tolerated procedure well h emostasis obtained with light compression. No anesthesia due to neuropathy. Will consider , advanced wound care products, advancement of offloading the left foot. Patient at this time will dressed site with Ida DSD and follow-up in 2-3 weeks.
[2022-07-30 10:07] VITALS: BP 160/89; PULSE 97; RESP 16; TEMP 36.6; BMI 19.6
--- NOTE | 2022-07-30 11:15 | PN.PCM_ITS ---
History of Present Illness Date of Service: 07/30/22 Chief Complaint: Left heel and lateral foot ulcerations osteomyelitis Peripheral vascular disease History of Wound: 77-year-old male seen for new onset ulcerations to plantar left heel and left forefoot. 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 Patient had all of the wounds healed but noted a recent fall and now has 5 wounds. He denies constitutional symptoms currently. Patient is awaiting evaluation by vascular surgery. Patient is offloading the sites with a surgical shoe and developed an offloading pad to take pressure off the forefoot TMA site as well as the plantar heel. Notes improvement today. Objective Data Objective Data Vital Signs: Vital Signs Temp Pulse Resp BP O2 Del Method 97.8 F 97 16 160/89 H Room Air 07/30/22 10:07 07/30/22 10:07 07/30/22 10:07 07/30/22 10:07 07/30/22 10:07 Oxygen Delivery Method Room Air Weight: 63.957 kg Body Mass Index (BMI) 19.6 Physical Exam Narrative Patient is alert and oriented to person place and time. Patient ambulates assisted by walker and surgical shoe to the left foot. Vascular: Dorsalis pedis and posterior tibial pulses nonpalpable to the left lower extremity. Biphasic on Doppler examination. Atrophic skin changes noted. Neurologic: Light touch protective sensation absent to bilateral feet. Dermatologic: Full-thickness wounds x3 to left foot. First wound is along the medial aspect of the transmetatarsal incisional site there is 1 along the central aspect of the incisional site and one along the lateral aspect of the incisional site a fourth 1 along the plantar aspect of the first metatarsal shaft and one to the plantar lateral heel. The medial 3 wounds demonstrate necrotic wound bases upon debridement demonstrated healthy granular bleeding. No evidence of deep probing undermining. There is resolving erythema and edema to the foot. No evidence of purulent drainage. Plantar lateral heel wound demonstrates healthy granular base no deep probing undermining or signs of infection. Lateral incisional site wound demonstrates healthy granular base no deep probing undermining or signs of infection. These wounds demonstrate decent bleeding upon debridement with clean granular bases. Musculoskeletal: Left TMA with ankle instability noted. Muscular strength 4 out of 5 to bilateral lower extremity compartments. No other gross deformities. Debridement Note Debridement Note Post-Debridement Measurements and Additional Note: Post-Debridement Measurements/Treatment WC - Nurse 1 - General Ulcer Assessment Start: 07/16/22 09:59 Freq: Status: Active Protocol: YANNI Activity Type Activity Date Activity User E-sign Co-sign Detail Recorded Client Recorded Date Recorded By Document 07/16/22 09:59 [facility] [id number] 07/16/22 10:10 [facility] Document 07/30/22 10:07 [facility] [id number] 07/30/22 10:17 [facility] 07/16/22 07/30/22 09:59 10:07 - Today's Visit Information Type of service Follow-up Visit (Physician/DENTAL OFFICE COORDINATOR ) Arrival Mode Ambulatory Transfer Assistance None Patient Identification Verified (Name & Yes ) Patient Requires Transmission-Based No Precautions Height and Weight Body Mass Index (BMI) 19.6 19.6 BMI Classification Normal Normal Vital Signs Temperature (97.8 F-99.1 F) 97.8 F Temperature Source Temporal Pulse Rate (60-100) 91 97 Pulse Location Monitor Monitor Respiratory Rate (12-18) 16 16 Respiratory rate source Observation Observation Oxygen Delivery Method Room Air Room Air Blood Pressure (90/60-120/80) 147/83 H 160/89 H Blood Pressure Mean (mm Hg) 104 112 Source Monitor Monitor Position Sitting Sitting Blood Pressure Location Left Arm History Since Last Visit- (Skip if this is Patient's initial visit) Have you changed medications since your No No last visit? Any new allergies or adverse reactions No No Had a fall/change in ADL's that may No No increase risk of falls Signs or symptoms of abuse and/or No No neglect since last visit Have you been in the hospital since your No No last visit? Has dressing in place as prescribed Yes Yes Has compression in place as prescribed N/A N/A Has offloadiing in place as prescribed N/A N/A Experienced any changes in pain level or No No management Left Footwear Regular Shoe Surgical Shoe with pressure relief insole Right Footwear Regular Shoe Regular Shoe Pain Scale: 0-10 Numeric Is Patient Pain Free? Yes Yes - Nurse 1 - General Ulcer Measurement Start: 07/16/22 09:59 Freq: Status: Active Protocol: Activity Type Activity Date Activity User E-sign Co-sign Detail Recorded Client Recorded Date Recorded By Document 07/16/22 09:59 [facility] [id number] 07/16/22 10:10 [facility] Document 07/30/22 10:07 [facility] [id number] 07/30/22 10:17 [facility] 07/16/22 07/30/22 09:59 10:07 Wound Center Nurse 1 #4 L lateral heel -Combined with other wound No -Current Size (cm) - Length 0.1 -Current Size (cm) - Width 0.1 -Current Size (cm) - Depth 0.1 -Total Square Cm 0.01 -Date of Last Picture (Recall this 07/16/22 field) -Photo Taken Yes -Epithelialization Large 67-100% -Tunneling No -Undermining/Tunneling No -Circular Undermining No -Exudate Amt None Present -Wound Margin Distinct, Outline Attached -Texture (Stacy-wound Skin Appearance) Assessed, Scarring -Moisture (Stacy-wound Skin Appearance) Assessed,Dry/ Scaly -Color (Stacy-wound Skin Appearance) Assessed -Temperature (Stacy-wound Skin No Abnormality Appearance) (Pt Warm) -Tenderness on Palpation (Stacy-wound No Skin Appearance) -Ulcer Cleansing Rinsed/ Irrigated with Saline -Foul Odor after Cleansing No -Anesthetic Used 5% Lidocaine Gel #8 L plantar -Combined with other wound No No -Current Size (cm) - Length 0.2 0.2 -Current Size (cm) - Width 0.3 0.3 -Current Size (cm) - Depth 0.4 0 -Total Square Cm 0.06 0.06 -Date of Last Picture (Recall this 07/16/22 07/30/22 field) -Photo Taken Yes Yes -Epithelialization Small 1-33% None Present -Tunneling No No -Undermining/Tunneling Yes No -Undermining/Tunneling Starts (O'clock 1 ) -Undermining/Tunneling Ends (O'clock) 2 -Maximum Distance (cm) 0.2 -Circular Undermining No No -Exudate Amt Small None Present -Exudate Type Serous -Wound Margin Distinct, Distinct, Outline Outline Attached Attached -Granulation Amt Large (67-100%) Large (67-100%) -Granulation Quality [place] -Slough/Fibrin No -Necrosis Amt None Present (0 %) -Texture (Stacy-wound Skin Appearance) Assessed, Assessed Scarring -Moisture (Stacy-wound Skin Appearance) Assessed Assessed,Dry/ Scaly -Color (Stacy-wound Skin Appearance) Assessed Assessed -Temperature (Stacy-wound Skin No Abnormality No Abnormality Appearance) (Pt Warm) (Pt Warm) -Tenderness on Palpation (Stacy-wound No No Skin Appearance) -Ulcer Cleansing Rinsed/ Rinsed/ Irrigated with Irrigated with Saline Saline -Foul Odor after Cleansing No No -Anesthetic Used 5% Lidocaine 5% Lidocaine Gel Gel #7 L med. foot -Combined with other wound No No -Current Size (cm) - Length 0.4 1.1 -Current Size (cm) - Width 1.1 0.4 -Current Size (cm) - Depth 0.3 0.3 -Total Square Cm 0.44 0.44 -Date of Last Picture (Recall this 07/16/22 07/30/22 field) -Photo Taken Yes Yes -Epithelialization None Present None Present -Tunneling No No -Undermining/Tunneling No No -Circular Undermining No No -Exudate Amt Medium None Present -Exudate Type Serosanguineous -Wound Margin Distinct, Distinct, Outline Outline Attached Attached -Granulation Amt None Present (0 None Present (0 %) %) -Slough/Fibrin Yes Yes -Necrosis Amt Large (67-100%) Large (67-100%) -Necrotic Tissue Type Adherent Slough Adherent Slough -Texture (Stacy-wound Skin Appearance) Assessed, Assessed, Scarring Scarring -Moisture (Stacy-wound Skin Appearance) Assessed Assessed,Dry/ Scaly -Color (Stacy-wound Skin Appearance) Assessed, Assessed Erythema -Temperature (Stacy-wound Skin No Abnormality No Abnormality Appearance) (Pt Warm) (Pt Warm) -Tenderness on Palpation (Stacy-wound No No Skin Appearance) -Ulcer Cleansing Rinsed/ Rinsed/ Irrigated with Irrigated with Saline Saline -Foul Odor after Cleansing No No -Anesthetic Used 5% Lidocaine 5% Lidocaine Gel Gel #5 L lateral foot cluster -Combined with other wound No No -Current Size (cm) - Length 0.5 0.4 -Current Size (cm) - Width 0.1 0.2 -Current Size (cm) - Depth 0.3 0.1 -Total Square Cm 0.05 0.08 -Date of Last Picture (Recall this 07/16/22 07/30/22 field) -Photo Taken Yes Yes -Epithelialization None Present None Present -Tunneling No No -Undermining/Tunneling No No -Circular Undermining No No -Exudate Amt Small None Present -Exudate Type Serous -Wound Margin Distinct, Distinct, Outline Outline Attached Attached -Granulation Amt Large (67-100%) None Present (0 %) -Granulation Quality [place] -Slough/Fibrin Yes Yes -Necrosis Amt Small (1-33%) Large (67-100%) -Necrotic Tissue Type Adherent Slough Eschar -Texture (Stacy-wound Skin Appearance) Assessed, Assessed, Scarring Scarring -Moisture (Stacy-wound Skin Appearance) Assessed,Dry/ Assessed,Dry/ Scaly Scaly -Color (Stacy-wound Skin Appearance) Assessed Assessed -Temperature (Stacy-wound Skin No Abnormality No Abnormality Appearance) (Pt Warm) (Pt Warm) -Tenderness on Palpation (Stacy-wound No No Skin Appearance) -Ulcer Cleansing Rinsed/ Rinsed/ Irrigated with Irrigated with Saline Saline -Foul Odor after Cleansing No No -Anesthetic Used 5% Lidocaine 5% Lidocaine Gel Gel WC - Nurse 2 - General Ulcer CM Notes Start: 07/16/22 09:59 Freq: Status: Active Protocol: Activity Type Activity Date Activity User E-sign Co-sign Detail Recorded Client Recorded Date Recorded By Document 07/16/22 10:22 [id number] 07/16/22 10:28 Document 07/30/22 10:38 [id number] 07/30/22 10:41 07/16/22 07/30/22 10:22 10:38 Wound Center Nurse 2 #4 L lateral heel -Correct Patient No -Correct Side, Site, Position No -Correct Procedure No -Procedure Performed No -Post Debridement (cm) - Length 0 -Post Debridement (cm) - Width 0 -Post Debridement (cm) - Depth 0 -Total Square (Post) (cm) 0 -Area of Debridement (cm) - Length 0 -Area of Debridement (cm) - Width 0 -Total Square (Area) (cm) 0 -Wound/Ulcer Outcome Healed- Epithelialized #8 L plantar -Time 10:24 10:38 -Correct Patient Yes Yes -Correct Side, Site, Position Yes Yes -Correct Procedure Yes Yes -Procedure Performed Yes Yes -Type of Procedure Debridement Debridement -Clinical Debridement Subcutaneous Subcutaneous -Tissue Removed Subcutaneous Subcutaneous -Post Debridement (cm) - Length 0.3 0.3 -Post Debridement (cm) - Width 0.3 0.3 -Post Debridement (cm) - Depth 0.4 0.3 -Total Square (Post) (cm) 0.09 0.09 -Area of Debridement (cm) - Length 0.3 0.3 -Area of Debridement (cm) - Width 0.3 0.3 -Total Square (Area) (cm) 0.09 0.09 -Tunneling No No -Undermining/Tunneling No No -Circular Undermining No No -Wound/Ulcer Outcome Not Healed Not Healed -Ulcer Cleansing Rinsed/ Rinsed/ Irrigated with Irrigated with Saline Saline -Foul Odor after Cleansing No No -Bioengineered Tissue No No -Bleeding Controlled with Pressure Pressure -Treatment Response Procedure Procedure Tolerated Well Tolerated Well -Offloading Yes Yes -Type of Offloading Surgical Shoe Surgical Shoe -Debridement - Subq, 1st 20sq cm Yes No #7 L med. foot -Time 10:24 10:38 -Correct Patient Yes Yes -Correct Side, Site, Position Yes Yes -Correct Procedure Yes Yes -Procedure Performed Yes Yes -Type of Procedure Debridement Debridement -Clinical Debridement Subcutaneous Subcutaneous -Tissue Removed Subcutaneous Subcutaneous -Post Debridement (cm) - Length 0.5 1.2 -Post Debridement (cm) - Width 1.1 0.4 -Post Debridement (cm) - Depth 0.3 0.1 -Total Square (Post) (cm) 0.55 0.48 -Area of Debridement (cm) - Length 0.5 1.2 -Area of Debridement (cm) - Width 1.1 0.4 -Total Square (Area) (cm) 0.55 0.48 -Tunneling No No -Undermining/Tunneling No No -Circular Undermining No No -Wound/Ulcer Outcome Not Healed Not Healed -Ulcer Cleansing Rinsed/ Rinsed/ Irrigated with Irrigated with Saline Saline -Foul Odor after Cleansing No No -Bioengineered Tissue No No -Bleeding Controlled with Pressure Pressure -Treatment Response Procedure Procedure Tolerated Well Tolerated Well -Offloading Yes No -Type of Offloading Surgical Shoe -Debridement - Subq, 1st 20sq cm No No #5 L lateral foot cluster -Time 10:26 10:39 -Correct Patient Yes Yes -Correct Side, Site, Position Yes Yes -Correct Procedure Yes Yes -Procedure Performed Yes Yes -Type of Procedure Debridement Debridement -Clinical Debridement Subcutaneous Subcutaneous -Tissue Removed Subcutaneous Subcutaneous -Post Debridement (cm) - Length 0.5 0.5 -Post Debridement (cm) - Width 0.2 0.2 -Post Debridement (cm) - Depth 0.3 0.1 -Total Square (Post) (cm) 0.10 0.10 -Area of Debridement (cm) - Length 0.5 0.5 -Area of Debridement (cm) - Width 0.2 0.2 -Total Square (Area) (cm) 0.10 0.10 -Tunneling No No -Undermining/Tunneling No No -Circular Undermining No No -Wound/Ulcer Outcome Not Healed Not Healed -Ulcer Cleansing Rinsed/ Rinsed/ Irrigated with Irrigated with Saline Saline -Foul Odor after Cleansing No No -Bioengineered Tissue No No -Bleeding Controlled with Pressure Pressure -Treatment Response Procedure Procedure Tolerated Well Tolerated Well -Offloading Yes Yes -Type of Offloading Surgical Shoe Surgical Shoe -Debridement - Subq, 1st 20sq cm No Yes Pain Scale: 0-10 Numeric Is Patient Pain Free? Yes Yes - Nurse 3 - General Ulcer D/C NN Start: 07/16/22 09:59 Freq: Status: Active Protocol: Activity Type Activity Date Activity User E-sign Co-sign Detail Recorded Client Recorded Date Recorded By Document 07/16/22 10:35 [id number] 07/16/22 10:36 Document 07/30/22 10:55 [facility] [id number] 07/30/22 10:56 [facility] 07/16/22 07/30/22 10:35 10:55 Wound Care Nurse 3 #8 L plantar -Ulcer Cleansing Rinsed/ Rinsed/ Irrigated with Irrigated with Saline Saline -Foul Odor after Cleansing No No -Primary Dressing Applied C Hydrogel ($) Other -Other Dressing hydrogel -Primary Dressing Covered/Secured with Dry Gauze, Dry Gauze, Secured with Secured with Tape Tape #7 L med. foot -Ulcer Cleansing Rinsed/ Rinsed/ Irrigated with Irrigated with Saline Saline -Foul Odor after Cleansing No No -Primary Dressing Applied C Hydrogel ($) -Other Dressing hydrogel -Primary Dressing Covered/Secured with Dry Gauze, Dry Gauze, Secured with Secured with Tape Tape #5 L lateral foot cluster -Ulcer Cleansing Rinsed/ Rinsed/ Irrigated with Irrigated with Saline Saline -Foul Odor after Cleansing No No -Primary Dressing Applied C Hydrogel ($) Other -Other Dressing hydrogel -Primary Dressing Covered/Secured with Dry Gauze, Dry Gauze, Secured with Secured with Tape Tape Treatment Response Procedure Tolerated Well Pain Scale: 0-10 Numeric Is Patient Pain Free? Yes Yes WC - Visit Discharge Discharge Condition Stable Stable Ambulatory Status Ambulatory Ambulatory Transportation Private Auto Private Auto Medication Reconcilliation completed & Yes provided to patient/care provider Clinical Summary of Care Provided Yes Assessment/Plan Assessment/Plan (1) Type 2 diabetes mellitus with diabetic polyneuropathy: CODE(S): E11.42 - Type 2 diabetes mellitus with diabetic polyneuropathy (2) Peripheral vascular disease, unspecified: CODE(S): I73.9 - Peripheral vascular disease, unspecified (3) Non-pressure chronic ulcer of other part of left foot with fat layer exposed: CODE(S): L97.522 - Non-pressure chronic ulcer of other part of left foot with fat layer exposed PLAN: Exam performed. Wounds improving at this time. Continue Oziel supplementation. Patient offloading site with surgical shoe and offloading pad. Discussed additional offloading including complete nonweightbearing with knee scooter w alker or total contact casting. Arterial studies demonstrate severe ifrapopliteal disease to left lower extremity, pending vascular evaluation. Evaluation will be performed today. Wounds do appear to be improving week after week however this process is slow. Patient's left foot wounds x3 were excisionally debrided down to including level of subcutaneous tissue of all nonviable tissue using a 5 mm dermal curette without incident. Patient consented procedure tolerated procedure well hemostasis obtained with light compression. No anesthesia due to neuropathy. Will consider , advanced wound care products, advancement of offloading the left foot. Patient at this time will dressed site with Ida DSD and follow-up in 2-3 weeks.
== END 2022-08-03 23:59 | disposition home or self-care (01) ==
LOC: WC 10:00
PROVIDERS: PCP Family Medicine; Visit Provider Podiatrist
DX: E11.621 Type 2 diabetes mellitus with foot ulcer (principal); E11.51 Type 2 diabetes mellitus with diabetic peripheral angiopathy without gangrene; Z89.432 Acquired absence of left foot; L97.522 Non-pressure chronic ulcer of other part of left foot with fat layer exposed; L97.429 Non-pressure chronic ulcer of left heel and midfoot with unspecified severity; E11.42 Type 2 diabetes mellitus with diabetic polyneuropathy
CPT/HCPCS: 11042

== ENCOUNTER 2022-08-20 09:15 | Outpatient (RCR) | payer MEDICARE, OTHER, SELFPAY ==
[2022-08-04 00:27] VITALS: BP 160/89; PULSE 97; RESP 16; TEMP 36.6; BMI 19.6
[2022-08-20 09:53] VITALS: BP 184/105; PULSE 101; RESP 16; TEMP 36.4; BMI 19.6
--- NOTE | 2022-08-20 10:41 | PN.PCM_ITS ---
History of Present Illness Date of Service: 08/20/22 Chief Complaint: Left heel and lateral foot ulcerations osteomyelitis Peripheral vascular disease History of Wound: 77-year-old male seen for new onset ulcerations to plantar left heel and left forefoot. 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 Patient had all of the wounds healed but noted a recent fall and now has 5 wounds. He denies constitutional symptoms currently. Patient is awaiting evaluation by vascular surgery. Patient is offloading the sites with a surgical shoe and developed an offloading pad to take pressure off the forefoot TMA site as well as the plantar heel. Notes improvement today. Objective Data Objective Data Vital Signs: Vital Signs Temp Pulse Resp BP 97.5 F L 101 H 16 184/105 H 08/20/22 09:53 08/20/22 09:53 08/20/22 09:53 08/20/22 09:53 Weight: 63.957 kg Body Mass Index (BMI) 19.6 Physical Exam Narrative Patient is alert and oriented to person place and time. Patient ambulates assisted by walker and surgical shoe to the left foot. Vascular: Dorsalis pedis and posterior tibial pulses nonpalpable to the left lower extremity. Biphasic on Doppler examination. Atrophic skin changes noted. Neurologic: Light touch protective sensation absent to bilateral feet. Dermatologic: Full-thickness wounds x3 to left foot. First wound is along the medial aspect of the transmetatarsal incisional site there is 1 along the central aspect of the incisional site and one along the lateral aspect of the incisional site a fourth 1 along the plantar aspect of the first metatarsal shaft and one to the plantar lateral heel. The medial 3 wounds demonstrate necrotic wound bases upon debridement demonstrated healthy granular bleeding. No evidence of deep probing undermining. There is resolving erythema and edema to the foot. No evidence of purulent drainage. Plantar lateral heel wound demonstrates healthy granular base no deep probing undermining or signs of infection. Lateral incisional site wound demonstrates healthy granular base no deep probing undermining or signs of infection. These wounds demonstrate decent bleeding upon debridement with clean granular bases. Musculoskeletal: Left TMA with ankle instability noted. Muscular strength 4 out of 5 to bilateral lower extremity compartments. No other gross deformities. Debridement Note Debridement Note Post-Debridement Measurements and Additional Note: Post-Debridement Measurements/Treatment WC - Nurse 1 - General Ulcer Assessment Start: 08/20/22 09:52 Freq: Status: Active Protocol: YANNI Activity Type Activity Date Activity User E-sign Co-sign Detail Recorded Client Recorded Date Recorded By Document 08/20/22 09:53 ML [id number] 08/20/22 09:56 ML 08/20/22 09:53 WC - Today's Visit Information Type of service Follow-up Visit (Physician/MARKETING INFORMATION COORDINATOR ) Arrival Mode Ambulatory Transfer Assistance None Patient Identification Verified (Name & Yes ) Patient Requires Transmission-Based No Precautions Safety Precautions NA Height and Weight Body Mass Index (BMI) 19.6 BMI Classification Normal Vital Signs Temperature (97.8 F-99.1 F) 97.5 F L Temperature Source Temporal Pulse Rate (60-100) 101 H Pulse Location Monitor Respiratory Rate (12-18) 16 Respiratory rate source Observation Blood Pressure (90/60-120/80) 184/105 H Blood Pressure Mean (mm Hg) 131 Source Monitor Position Sitting Blood Pressure Location Left Arm History Since Last Visit- (Skip if this is Patient's initial visit) Have you changed medications since your No last visit? Any new allergies or adverse reactions No Had a fall/change in ADL's that may No increase risk of falls Signs or symptoms of abuse and/or No neglect since last visit Have you been in the hospital since your No last visit? Has dressing in place as prescribed Yes Has compression in place as prescribed N/A Has offloadiing in place as prescribed N/A Experienced any changes in pain level or No management Left Footwear Regular Shoe Right Footwear Regular Shoe Pain Scale: 0-10 Numeric Is Patient Pain Free? Yes - Nurse 1 - General Ulcer Measurement Start: 08/20/22 09:52 Freq: Status: Active Protocol: Activity Type Activity Date Activity User E-sign Co-sign Detail Recorded Client Recorded Date Recorded By Document 08/20/22 09:53 ML [id number] 08/20/22 09:56 ML 08/20/22 09:53 Wound Center Nurse 1 #8 L plantar -Current Size (cm) - Length 1 -Current Size (cm) - Width 0.5 -Current Size (cm) - Depth 0.3 -Total Square Cm 0.5 -Exudate Amt Small -Exudate Type Serosanguineous -Wound Margin Distinct, Outline Attached -Granulation Amt Small (1-33%) -Slough/Fibrin Yes -Necrosis Amt Small (1-33%) -Necrotic Tissue Type Adherent Slough -Texture (Stacy-wound Skin Appearance) Assessed -Moisture (Stacy-wound Skin Appearance) Assessed -Color (Stacy-wound Skin Appearance) Assessed -Temperature (Stacy-wound Skin No Abnormality Appearance) (Pt Warm) -Tenderness on Palpation (Stacy-wound No Skin Appearance) -Ulcer Cleansing Rinsed/ Irrigated with Saline -Foul Odor after Cleansing No -Anesthetic Used 5% Lidocaine Gel #7 L med. foot -Current Size (cm) - Length 0.1 -Current Size (cm) - Width 0.1 -Current Size (cm) - Depth 0.1 -Total Square Cm 0.01 -Exudate Type Serosanguineous -Wound Margin Distinct, Outline Attached -Slough/Fibrin Yes -Necrosis Amt Medium (34-66%) -Necrotic Tissue Type Adherent Slough -Texture (Stacy-wound Skin Appearance) Assessed -Moisture (Stacy-wound Skin Appearance) Assessed -Color (Stacy-wound Skin Appearance) Assessed -Temperature (Stacy-wound Skin No Abnormality Appearance) (Pt Warm) -Ulcer Cleansing Rinsed/ Irrigated with Saline -Foul Odor after Cleansing No -Anesthetic Used 5% Lidocaine Gel #5 L lateral foot cluster -Current Size (cm) - Length 0.5 -Current Size (cm) - Width 0.5 -Current Size (cm) - Depth 0.2 -Total Square Cm 0.25 -Exudate Amt Small -Exudate Type Serosanguineous -Wound Margin Distinct, Outline Attached -Slough/Fibrin Yes -Necrosis Amt Small (1-33%) -Necrotic Tissue Type Adherent Slough -Texture (Stacy-wound Skin Appearance) Assessed -Moisture (Stacy-wound Skin Appearance) Assessed -Color (Stacy-wound Skin Appearance) Assessed -Temperature (Stacy-wound Skin No Abnormality Appearance) (Pt Warm) -Tenderness on Palpation (Stacy-wound No Skin Appearance) -Ulcer Cleansing Rinsed/ Irrigated with Saline -Foul Odor after Cleansing No -Anesthetic Used 5% Lidocaine Gel WC - Nurse 2 - General Ulcer CM Notes Start: 08/20/22 09:52 Freq: Status: Active Protocol: Activity Type Activity Date Activity User E-sign Co-sign Detail Recorded Client Recorded Date Recorded By Document 08/20/22 10:10 ML [id number] 08/20/22 10:15 ML 08/20/22 10:10 Wound Center Nurse 2 #8 L plantar -Time 10:11 -Correct Patient Yes -Correct Side, Site, Position Yes -Correct Procedure Yes -Procedure Performed Yes -Type of Procedure Debridement -Clinical Debridement Subcutaneous -Tissue Removed Subcutaneous -Post Debridement (cm) - Length 0.3 -Post Debridement (cm) - Width 0.3 -Post Debridement (cm) - Depth 0.2 -Total Square (Post) (cm) 0.09 -Area of Debridement (cm) - Length 0.3 -Area of Debridement (cm) - Width 0.3 -Total Square (Area) (cm) 0.09 -Tunneling No -Undermining/Tunneling No -Circular Undermining No -Wound/Ulcer Outcome Not Healed -Ulcer Cleansing Rinsed/ Irrigated with Saline -Foul Odor after Cleansing No -Bioengineered Tissue No -Bleeding Controlled with Pressure -Treatment Response Procedure Tolerated Well -Offloading Yes -Type of Offloading Surgical Shoe -Debridement - Subq, 1st 20sq cm No #7 L med. foot -Time 10:11 -Correct Patient Yes -Correct Side, Site, Position Yes -Correct Procedure Yes -Procedure Performed Yes -Type of Procedure Debridement -Clinical Debridement Subcutaneous -Tissue Removed Subcutaneous -Post Debridement (cm) - Length 1.1 -Post Debridement (cm) - Width 0.5 -Post Debridement (cm) - Depth 0.2 -Total Square (Post) (cm) 0.55 -Area of Debridement (cm) - Length 1.1 -Area of Debridement (cm) - Width 0.5 -Total Square (Area) (cm) 0.55 -Tunneling No -Undermining/Tunneling No -Circular Undermining No -Wound/Ulcer Outcome Not Healed -Ulcer Cleansing Rinsed/ Irrigated with Saline -Foul Odor after Cleansing No -Bioengineered Tissue No -Bleeding Controlled with Pressure -Treatment Response Procedure Tolerated Well -Offloading Yes -Type of Offloading Surgical Shoe -Debridement - Subq, 1st 20sq cm No #5 L lateral foot cluster -Time 10:12 -Correct Patient Yes -Correct Side, Site, Position Yes -Correct Procedure Yes -Procedure Performed Yes -Type of Procedure Debridement -Clinical Debridement Subcutaneous -Tissue Removed Subcutaneous -Post Debridement (cm) - Length 0.3 -Post Debridement (cm) - Width 0.2 -Post Debridement (cm) - Depth 0.1 -Total Square (Post) (cm) 0.06 -Area of Debridement (cm) - Length 0.3 -Area of Debridement (cm) - Width 0.2 -Total Square (Area) (cm) 0.06 -Tunneling No -Undermining/Tunneling No -Circular Undermining No -Wound/Ulcer Outcome Not Healed -Ulcer Cleansing Rinsed/ Irrigated with Saline -Foul Odor after Cleansing No -Bioengineered Tissue No -Bleeding Controlled with Pressure -Treatment Response Procedure Tolerated Well -Offloading No -Type of Offloading Surgical Shoe -Debridement - Subq, 1st 20sq cm Yes Pain Scale: 0-10 Numeric Is Patient Pain Free? Yes - Nurse 3 - General Ulcer D/C NN Start: 08/20/22 09:52 Freq: Status: Active Protocol: Activity Type Activity Date Activity User E-sign Co-sign Detail Recorded Client Recorded Date Recorded By Document 08/20/22 10:34 ML [id number] 08/20/22 10:35 ML 08/20/22 10:34 Wound Care Nurse 3 #8 L plantar -Ulcer Cleansing Rinsed/ Irrigated with Saline -Foul Odor after Cleansing No -Primary Dressing Applied C Hydrogel ($) -Primary Dressing Covered/Secured with Dry Gauze & Roll Gauze, Secured with Tape #7 L med. foot -Ulcer Cleansing Rinsed/ Irrigated with Saline -Foul Odor after Cleansing No -Other Dressing hydrogel -Primary Dressing Covered/Secured with Dry Gauze & Roll Gauze, Secured with Tape #5 L lateral foot cluster -Ulcer Cleansing Rinsed/ Irrigated with Saline -Foul Odor after Cleansing No -Other Dressing hydrogel -Primary Dressing Covered/Secured with Dry Gauze & Roll Gauze, Secured with Tape Treatment Response Procedure Tolerated Well Pain Scale: 0-10 Numeric Is Patient Pain Free? Yes WC - Visit Discharge Discharge Condition Stable Ambulatory Status Ambulatory Transportation Private Auto Assessment/Plan Assessment/Plan (1) Type 2 diabetes mellitus with diabetic polyneuropathy: CODE(S): E11.42 - Type 2 diabetes mellitus with diabetic polyneuropathy (2) Peripheral vascular disease, unspecified: CODE(S): I73.9 - Peripheral vascular disease, unspecified (3) Non-pressure chronic ulcer of other part of left foot with fat layer exposed: CODE(S): L97.522 - Non-pressure chronic ulcer of other part of left foot with fat layer exposed PLAN: Exam performed. Wounds improving at this time. Continue Oziel supplementation. Patient offloading site with surgical shoe and offloading pad. Discussed additional offloading including complete nonweightbearing with knee scooter walker or total contact casting. Patient had discussion with vascular surgery. They discussed possible angiogram patient defers as wounds are improving. Wounds do appear to be improving week after week however this process is slow. Patient's left foot wounds x3 were excisionally debrided down to including level of subcutaneous tissue of all nonviable tissue using a 5 mm dermal curette without incident. Patient consented procedure tolerated procedure well hemostasis obtained with light compression. No anesthesia due to neuropathy. Will consider , advanced wound care products, advancement of offloading the left foot. Patient at this time will dressed site with Ida DSD and follow-up in 2-3 weeks.
--- NOTE | 2022-08-20 14:01 | WC ---
patient called and informed us that his BP when he got home was 149/84 and heart rate 88. He stated that he called PCP's off and the nurse stated that they would let Dr Victoria know.
== END 2022-08-20 16:13 | disposition home or self-care (01) ==
LOC: WC 09:15
PROVIDERS: PCP Family Medicine; Visit Provider Podiatrist
DX: E11.621 Type 2 diabetes mellitus with foot ulcer (principal); E11.51 Type 2 diabetes mellitus with diabetic peripheral angiopathy without gangrene; L97.422 Non-pressure chronic ulcer of left heel and midfoot with fat layer exposed; L97.522 Non-pressure chronic ulcer of other part of left foot with fat layer exposed; E11.42 Type 2 diabetes mellitus with diabetic polyneuropathy
CPT/HCPCS: 11042

== ENCOUNTER 2022-09-12 11:08 | Outpatient (CLI) | payer MEDICARE, OTHER, SELFPAY ==
[2022-09-12 12:03] LABS: Absolute Lymphocyte Count 1.52 X10^3/uL (0.83-4.51); Absolute Neutrophil Count 3.6 X10^3/uL (2.0-7.7); Basophil# 0.03 X10^3/uL; Basophil% 0.5 % (0-1); Eosinophil# 0.13 X10^3/uL; Eosinophils% 2.3 % (0-5); Hematocrit 44.7 % (40-54); Hemoglobin 14.3 g/dL (13.0-16.5); Lymphocyte # 1.52 X10^3/ul (0.83-4.51); Lymphocyte % 26.5 % (19-41); Mean Corpuscular Hgb 29.5 pg (27.0-32.0); Mean Corpuscular Volume 92.2 fL (80-94); Mean Platelet Vol. 10.4 fl (6.2-12.0); Monocyte# 0.47 X10^3/uL; Monocyte% 8.2 % (0-10); NRBC Flagged by Analyzer 0 % (0-5); Neutrophil # 3.57 X10^3/uL (2.7-7.7); Neutrophil % 62.2 % (47-70); Platelet Count 226 K/mm3 (150-450); RBC Distribution Width CV 13.2 % (11.6-14.6); RBC Distribution Width SD 44.9 fl (35.1-43.9); Red Blood Count 4.85 M/mm3 (4.6-6.2); White Blood Count 5.7 K/mm3 (4.4-11.0)
[2022-09-12 12:22] LABS: Vitamin D,25 Hydroxy 40.6 ng/mL
[2022-09-12 12:31] LABS: ALB/GLOB Ratio 1.4 RATIO (0.9-2.4); AST(SGOT) 23 U/L (15-37); Alanine Aminotransfer ALT/SGPT 45 U/L (16-61); Albumin, Serum 3.7 g/dL (3.2-5.0); Alkaline Phosphatase 63 U/L (45-117); Anion Gap 10 (5-15); BUN 21 mg/dL (7-18); BUN/Creat Ratio 17.9 RATIO (10-20); Calcium,Total 9.5 mg/dL (8.5-10.1); Chloride 103 mmol/L (98-107); Cholesterol 117 mg/dL (200); Creatinine, Serum 1.17 mg/dL (0.70-1.30); EST Glomerular Filtration Rate 64 mL/min (>60); Est Glom Filt Rate - Afr Amer 77 mL/min (>60); Globulin 2.7 g/dL (2.2-4.2); Glucose 215 mg/dL (74-106); High Density Lipoprotein 66 mg/dL; Magnesium 1.9 mg/dL (1.6-2.6); Potassium 4.1 mmol/L (3.5-5.1); Protein, Total 6.4 g/dL (6.4-8.2); Sodium Level 137 mmol/L (136-145); Triglycerides 65 mg/dL; Very Low Density Lipoprotein 13 mg/dL (5-40)
[2022-09-12 12:34] LABS: Hemoglobin A1c 8.1 % (3.8-5.6)
[2022-09-12 15:34] LABS: Microalbumin,Random Urine 82.3 mg/L (NO RANGE EST.); Microalbumin:Creatinine Ratio 91.3 mg/g CRE (<30 mg/g CRE)
== END 2022-09-12 23:59 | disposition home or self-care (01) ==
LOC: MTLAB 11:10
PROVIDERS: PCP Family Medicine; Referring Provider Family Medicine; Visit Provider Family Medicine
DX: I48.0 Paroxysmal atrial fibrillation (principal); E11.9 Type 2 diabetes mellitus without complications; I25.10 Atherosclerotic heart disease of native coronary artery without angina pectoris; E55.9 Vitamin D deficiency, unspecified
CPT/HCPCS: 36415; 80053; 80061; 82043; 82306; 82570; 83036; 83735; 85025

== ENCOUNTER → 2022-11-14 | Outpatient (CLI) | payer MEDICARE, OTHER, SELFPAY ==
[2022-11-14 18:19] LABS: Hemoglobin A1c 7.8 % (3.8-5.6)
== END | disposition home or self-care (01) ==
LOC: MFPLAB 16:36
PROVIDERS: PCP Family Medicine; Referring Provider Family Medicine; Visit Provider Family Medicine
DX: E11.9 Type 2 diabetes mellitus without complications (principal)
CPT/HCPCS: 36415; 83036

== ENCOUNTER → 2022-12-04 | Outpatient (CLI) | payer MEDICARE, OTHER, SELFPAY | END | disposition home or self-care (01) | PROVIDERS: PCP Family Medicine; Visit Provider Podiatrist | DX: L97.522 Non-pressure chronic ulcer of other part of left foot with fat layer exposed (principal) | CPT/HCPCS: 87070; 87077; 87186; 87205 ==

== ENCOUNTER 2022-12-10 12:08 | Inpatient (IN) | payer MEDICARE, OTHER, SELFPAY ==
[2022-12-10] VITALS (7 sets, daily range): BP systolic 102–116; BP diastolic 61–95; PULSE 89–98; RESP 14–19; TEMP 36.4–36.6; O2SAT 96–99; BMI 18.3
--- NOTE | 2022-12-10 12:36 | EX.ED.DYSGE1 ---
HPI History of Present Illness Chief Complaint: Wound [facility] Medical History Acid reflux Acute osteomyelitis of left calcaneus Amputation at midfoot Anemia Atherosclerosis of coronary artery of [place] heart without angina pectoris Atrial fibrillation BPH (benign prostatic hyperplasia) Cellulitis of foot, left Chronic diastolic (congestive) heart failure Chronic kidney disease Erectile dysfunction Essential (primary) hypertension History of non-ST elevation myocardial infarction (NSTEMI) (08/26/16) Hyperlipidemia Inguinal hernia of right side without obstruction or gangrene Iron deficiency anemia Longstanding persistent atrial fibrillation Multinodular goiter Non-ischemic cardiomyopathy 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 Nonrheumatic aortic (valve) stenosis Paroxysmal atrial fibrillation Partial seizure disorder Peripheral vascular occlusive disease Pre-syncope Syncope Type 2 diabetes mellitus Type 2 diabetes mellitus with foot ulcer Urinary retention Urinary retention due to benign prostatic hyperplasia Ventral incisional hernia without obstruction or gangrene Home Medications atorvastatin 80 mg tablet 80 mg PO QHS cholesterol 07/21/18 [History Last Taken 05/23/19] lamotrigine 200 mg tablet 200 mg PO BID seizures 07/21/18 [History Last Taken 05/24/19 05:30] metformin 500 mg tablet,extended release 24 hr 1,000 mg PO BID diabetes 07/21/18 [History Last Taken 03/18/22] finasteride 5 mg tablet 5 mg PO DAILY prostate 08/07/20 [History Last Taken Unknown] magnesium oxide 400 mg PO DAILY supplement 08/07/20 [History Last Taken Unknown] nitroglycerin 0.4 mg sublingual tablet 0.4 mg sublingual Q5M PRN Chest Pain 08/07/20 [History Last Taken Unknown] clopidogrel 75 mg tablet 75 mg PO DAILY 03/25/22 [History Last Taken Unknown] isosorbide mononitrate 60 mg tablet,extended release 24 hr 60 mg PO DAILY 03/25/22 [History Last Taken Unknown] pantoprazole 40 mg tablet,delayed release 40 mg PO DAILY 03/25/22 [History Last Taken Unknown] apixaban 5 mg tablet (Eliquis) 5 mg PO BID 05/09/22 [History Last Taken Unknown] tcuhtmb-elvqztqku-cweb tablet See Rx Instructions PO .COMPLEX 05/09/22 [History Last Taken Unknown] cholecalciferol (vitamin D3) 50 mcg (2,000 unit) capsule 50 mcg PO DAILY 05/09/22 [History Last Taken Unknown] cinnamon bark 500 mg capsule (Cinnamon) 500 mg PO DAILY 05/09/22 [History Last Taken Unknown] metoprolol tartrate 75 mg tablet 50 mg PO BID heart/blood pressure 05/09/22 [History Last Taken Unknown] semaglutide 1 mg/dose (2 mg/1.5 mL) subcutaneous pen injector (Ozempic) 1 mg subcut QWEEK 05/09/22 [History Last Taken Unknown] tamsulosin 0.4 mg capsule 0.8 mg PO DAILY 05/09/22 [History Last Taken Unknown] ciprofloxacin HCl 750 mg tablet 750 mg PO BID 12/10/22 [History Last Taken Unknown] doxycycline hyclate 100 mg capsule 100 mg PO DAILY 12/10/22 [History Last Taken Unknown] semaglutide 2 mg/dose (8 mg/3 mL) subcutaneous pen injector (Ozempic) 8 mg subcut QWEEK 12/10/22 [History Last Taken Unknown] Allergy/AdvReac Type Severity Reaction Status Date / Time carbamazepine [From Tegretol] Allergy Rash Verified 12/10/22 12:09 Family History Mother Cancer Heart disease Father Hypertension Diabetes Son Heart disease Surgical History History of angioplasty of peripheral vessel (06/28/14) History of atherectomy History of cardioversion (08/21/16) History of colonoscopy (01/2019) History of coronary artery stent placement (03/20/22) History of inguinal hernia repair 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) History of transurethral resection of prostate (01/2019) Status post biopsy of thyroid gland (09/2019) Social History household members: spouse Smoking Status: Former smoker quit date: 08/04/69 pack-years: 10 alcohol intake: current alcohol intake frequency: a few times a month substance use type: does not use EXAM Physical Exam Const Vital Signs: 12/10/22 12:10 12/10/22 12:19 Temperature 97.6 F L 97.5 F L Temperature Source Temporal Oral Pulse Rate 98 93 Respiratory Rate 14 18 Blood Pressure 111/89 H 116/95 H Blood Pressure Mean 96 102 Pulse Ox 97 99 Oxygen Delivery Method Room Air Room Air [facility] [place] Medical decision making narrative: HISTORY OF PRESENT ILLNESS: 77-year-old male sent into the emergency department by his strickler attendant Dr. Baxter with concern for diabetic foot infection. Patient denies fever, lightheadedness, syncope. Endorses pain to the foot that is exacerbated after Dr. Xiao interventions. REVIEW OF SYMPTOMS: Pertinent positives: Foot wound Pertinent negatives: Fever PHYSICAL EXAM: Nursing triage notes reviewed, Vital signs reviewed Constitutional: please see mdm HENT: MMM Eyes: Pupils equal round and reactive to light, Extraocular muscles intact Neck: No stridor, no JVD, full neck ROM Lungs: Clear to auscultation, No wheezing or rales. No increased work of breathing, no conversational dyspnea, no accessory muscle use, no nasal flaring. No respiratory distress noted Heart: Regular rate and rhythm, No murmurs, No rubs and No gallops, 2+ distal pulses (radial, femoral, posterior tibial) in all extremities Abdomen: Soft, there is no tenderness, rigidity, rebound or guarding, no obvious peritoneal signs, no palpable pulsatile abdominal masses, no auscultated abdominal bruit : No CVAT Extremities: No edema, metatarsal amputation noted, compartments are soft Neuro: Intact sensation L1-S1 dermatomal distributions. Intact 5/5 strength in hip flexion (T12-L3). Knee extension (L2-L4). Ankle dorsiflexion (L4-L5). Ankle plantar flexion (S1). Great toe extension (L5). 2+ patellar and Achilles DTRs. Skin: Erythema noted, ulceration noted to the plantar surface of the left foot, ulceration goes down to muscular layer, no crepitus or bullae noted, some purulent discharge was noted. MEDICAL DECISION MAKING: Chief Complaint: Foot infection External records reviewed: No recent imaging the involved extremity [facility] Narrative: I considered the following differential diagnosis: Infected diabetic foot ulcer, vascular occlusion, osteomyelitis Patient had appropriate cap refill and palpable pulses with a warm well-perfused left lower extremity. I have low suspicion for acute limb ischemia at this time. I obtained a broad lab and imaging work-up to further elucidate the etiology the patient complaints. I started the patient on broad-spectrum antibiotics to cover gram-positive and gram-negative's. Labs and images were remarkable for signs of systemic inflammation, x-ray without definitive evidence of osteomyelitis. X-ray is not the most sensitive study the patient likely benefit from MRI as an inpatient. Given patient's diabetes, relative immunocompromise state and risk for progressive infection will admit the patient for ongoing antimicrobial therapy, podiatry consultation and further evaluation to the internal medicine service. Spoke with Dr. Box who recommended obtaining MRI hopefully prior to floor admission. He accepted the patient for [facility] admission. Factors affecting care: Diabetes, peripheral vascular disease, hyperlipidemia, hypertension, foot ulcer, tarsometatarsal amputation. On Eliquis for A-fib Social determinants of health: Former smoker History obtained from others: The patient's strickler attendant Shared decision making: I will have a discussion with the patient and or visitors regarding risk/benefits of further testing or admission. They will be made aware of of the risk/benefits inherent in this decision they will be given the opportunity to voice understanding. Consults: Podiatry, internal medicine Lab Data Attestation: I reviewed the patient's lab results. Lab results narrative: CBC with leukocytosis consistent with systemic inflammation, no anemia or thrombocytopenia BMP with mild hyponatremia, no anion gap to suggest endorgan hypoperfusion, acute kidney injury CRP elevated consistent with systemic inflammation Labs: Laboratory Results - last 24 hr 12/10/22 12/10/22 13:05 13:05 WBC 15.3 H RBC 4.77 Hgb 13.8 Hct 43.6 MCV 91.4 MCH 28.9 MCHC 31.7 L RDW Std Deviation 45.1 H RDW Coeff of Danis 13.3 Plt Count 339 MPV 9.1 ESR 20 Sodium 134 L Potassium 4.5 Chloride 103 Carbon Dioxide 23.0 Anion Gap 8 BUN 19 H Creatinine 1.26 Estim Creat Clear Calc 40.21 Est GFR (MDRD) Af Amer 71 Est GFR (MDRD) Non-Af 59 L BUN/Creatinine Ratio 15.1 Glucose 257 H Calcium 9.2 C-React Prot Ext Range 98.70 H Radiography Diagnostic Testing: Clinical Impression(s) from Imaging Studies Foot X-Ray 12/10/22 12:55 IMPRESSION: Status post transmetatarsal dictation. Soft tissue swelling and small amount of gas is seen in the region of the base of the first metatarsal with vascular calcification. Electronically Signed: Singh Brooks MD at 13:21 EDT , Foot X-Ray 12/10/22 12:58 IMPRESSION: Vascular calcification. Electronically Signed: Singh Brooks MD at 13:22 EDT , Management Discussion w/another healthcare provider: Hospitalist Discharge Plan Triage Chief Complaint: Wound ED Provider: Anibal Farooq Dx/Rx/DC Orders Clinical Impression: Diabetic foot ulcer, Leukocytosis Prescriptions: No Action atorvastatin 80 mg tablet 80 mg PO QHS lamotrigine 200 mg tablet 200 mg PO BID metformin 500 mg tablet extended release 24 hr 1,000 mg PO BID clopidogrel 75 mg tablet 75 mg PO DAILY isosorbide mononitrate 60 mg tablet extended release 24 hr 60 mg PO DAILY pantoprazole 40 mg tablet,delayed release (DR/EC) 40 mg PO DAILY [id number] Tablet See Rx Instructions PO .COMPLEX Rx Instructions: orally po; tamsulosin 0.4 mg capsule 0.8 mg PO DAILY cholecalciferol (vitamin D3) 50 mcg (2,000 unit) capsule 50 mcg PO DAILY cinnamon bark [Cinnamon] 500 mg capsule 500 mg PO DAILY Eliquis 5 mg tablet 5 mg PO BID Ozempic 1 mg/dose (2 mg/1.5 mL) pen injector 1 mg subcut QWEEK metoprolol tartrate 75 mg tablet 50 mg PO BID nitroglycerin 0.4 MG tablet, sublingual 0.4 mg SUBLINGUAL Q5M PRN (Reason: Chest Pain) finasteride 5 MG tablet 5 mg PO DAILY magnesium oxide 400 MG tablet 400 mg PO DAILY doxycycline hyclate 100 mg capsule 100 mg PO DAILY ciprofloxacin HCl 750 mg tablet 750 mg PO BID Label Comments: take 1 tablet by mouth twice a day Ozempic 2 mg/dose (8 mg/3 mL) pen injector 8 mg SUBCUT QWEEK Rx Instructions: Wednesdays Primary Care Provider: Jerry Dee Referrals: Jerry Dee MD [Primary Care Provider] -
--- NOTE | 2022-12-10 12:55 | RAD_ITS ---
STUDY: X-RAY - LEFT FOOT CLINICAL: Male, 77 years old. Diabetic foot ulcer TECHNIQUE: 2 view(s) of the foot. COMPARISON: None. FINDINGS: Normal talus, calcaneus, and tarsal bones. Normal visualized subtalar, talonavicular, calcaneocuboid, tarsal and tarsometatarsal articulations. The patient is status post transmetatarsal amputation. Normal metatarsophalangeal joint of the great toe. Normal tibial and fibular sesamoid bones. Normal interphalangeal joint of the great toe. Normal phalanges of the great toe. Normal second through fifth metatarsophalangeal joints. Normal interphalangeal joints and phalanges of the lesser toes. Soft tissue swelling with a small amount of gas is seen overlying the remnant of the first metatarsal. Vascular calcification. RAD/Foot 2 Views IMPRESSION: Status post transmetatarsal dictation. Soft tissue swelling and small amount of gas is seen in the region of the base of the first metatarsal with vascular calcification. Electronically Signed: Singh Brooks MD at 13:21 EDT ,
--- NOTE | 2022-12-10 12:58 | RAD_ITS ---
STUDY: X-RAY - RIGHT FOOT CLINICAL: Male, 77 years old. Diabetic foot ulcer TECHNIQUE: 2 view(s) of the foot. COMPARISON: None. FINDINGS: Normal talus, calcaneus, and tarsal bones. Normal visualized subtalar, talonavicular, calcaneocuboid, tarsal and tarsometatarsal articulations. Normal metatarsi. Normal metatarsophalangeal joint of the great toe. Normal tibial and fibular sesamoid bones. Normal interphalangeal joint of the great toe. Normal phalanges of the great toe. Normal second through fifth metatarsophalangeal joints. Normal interphalangeal joints and phalanges of the lesser toes. Vascular calcification. RAD/Foot 2 Views IMPRESSION: Vascular calcification. Electronically Signed: Singh Brooks MD at 13:22 EDT ,
[2022-12-10 13:24] LABS: Erythrocyte Sedimentation Rate 20 mm/hr (0-20)
[2022-12-10 13:31] LABS: Anion Gap 8 (5-15); BUN 19 mg/dL (7-18); BUN/Creat Ratio 15.1 RATIO (10-20); Calcium,Total 9.2 mg/dL (8.5-10.1); Chloride 103 mmol/L (98-107); Creatinine, Serum 1.26 mg/dL (0.70-1.30); EST Glomerular Filtration Rate 59 mL/min (>60); Est Glom Filt Rate - Afr Amer 71 mL/min (>60); Estimated Creatinine Clearance 40.21 ml/min; Glucose 257 mg/dL (74-106); Potassium 4.5 mmol/L (3.5-5.1); Sodium Level 134 mmol/L (136-145)
[2022-12-10] MEDS: Ketorolac 15 MG/ML Vial IV (13:31)
[2022-12-10 13:55] LABS: Hematocrit 43.6 % (40-54); Hemoglobin 13.8 g/dL (13.0-16.5); Mean Corp Hgb Conc 31.7 g/dL (32-36); Mean Corpuscular Hgb 28.9 pg (27.0-32.0); Mean Corpuscular Volume 91.4 fL (80-94); Mean Platelet Vol. 9.1 fl (6.2-12.0); Platelet Count 339 K/mm3 (150-450); RBC Distribution Width CV 13.3 % (11.6-14.6); RBC Distribution Width SD 45.1 fl (35.1-43.9); Red Blood Count 4.77 M/mm3 (4.6-6.2); White Blood Count 15.3 K/mm3 (4.4-11.0)
--- NOTE | 2022-12-10 14:35 | MRI_ITS ---
STUDY: MR Midfoot WO/W Contrast 12/10/2022 8:16 PM left REASON FOR EXAM: Male, 77 years old. OSTEOMYELITIS OF THE FOOT PAIN INFECTION left foot ulcer r/o osteomyelitis TECHNIQUE: Standardized fat and water weighted pulse sequences were obtained in all 3 orthogonal planes. w w/o Contrast IV 12ml CLariscan COMPARISON: xr of the same day. FINDINGS: Normal talus, calcaneus, and tarsal bones. Normal visualized subtalar, talonavicular, calcaneocuboid, tarsal and tarsometatarsal articulations. There is a transmetatarsal amputation. There is a plantar ulcer over the 1st digit amputation site. There is abnormal increased STIR signal around the residual 1st metatarsal bone. There is low T1 signal around the area. This is concerning for osteomyelitis. There are atherosclerotic vascular calcifications. MRI/Lower Ext No Joint W/WO Cont IMPRESSION: There is osteomyelitis of the residual 1st metatarsal bone. Electronically Signed: Mp Duggan MD at 20:21 EDT ,
[2022-12-10] MEDS: Vancomycin IV 1,000 MG/200 ML BAG 200 MG IV (14:59)
--- NOTE | 2022-12-10 15:47 | PCM.RX.CS ---
Consult Pharmacy has been consulted to manage selected antiobiotic: Vancomycin Type of Consult: New start Suspected Infection: Skin/Soft tissue - DIABETIC FOOT ULCER Labs: Sodium 134 mmol/L (136-145) L 12/10/22 13:05 Potassium 4.5 mmol/L (3.5-5.1) 12/10/22 13:05 Chloride 103 mmol/L (98-107) 12/10/22 13:05 Carbon Dioxide 23.0 mmol/L (21.0-32.0) 12/10/22 13:05 Anion Gap 8 (5-15) 12/10/22 13:05 BUN 19 mg/dL (7-18) H 12/10/22 13:05 Creatinine 1.26 mg/dL (0.70-1.30) 12/10/22 13:05 Est GFR (MDRD) Af Amer 71 mL/min (>60) 12/10/22 13:05 Est GFR (MDRD) Non-Af 59 mL/min (>60) L 12/10/22 13:05 BUN/Creatinine Ratio 15.1 RATIO (10-20) 12/10/22 13:05 Glucose 257 mg/dL (74-106) H 12/10/22 13:05 Goal Trough: 15-20 mcg/mL Pharmacy Plan for Drug Dosing: NEW START IV VANCOMYCIN Consulting Physician: YANE Indication: DIABETIC FOOT ULCER Goal Trough: 15-20 MG/DL SrCr: 1.26 MG/DL CrCl: 40.1 ML/MIN Comments: ER DOSE OF 1000MG GIVEN 12/10 @ 1457 Vancomycin Dose: WILL START 500MG Q12 (12/11 @ 0300) AND GET A TROUGH PRIOR TO THE 4TH DOSE. Pending Level: 12/12/22 @ 0230 Pharmacy Service will continue to monitor and adjust dosing as required.
--- NOTE | 2022-12-10 15:59 | HP.PCM.HOS_ITS ---
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 He saw the appellate court judge who felt that he should come to the ER for evaluation and possible MRI to determine whether or not there is any osteo. He denies any fevers or chills at home but has been feeling tired lately. White count is 15.3 but he is afebrile. [facility] Medical History (Updated 12/10/22 @ 16:[address] Dandy Box MD) Acid reflux Acute osteomyelitis of left calcaneus Amputation at midfoot Anemia Atherosclerosis of coronary artery of [place] heart without angina pectoris Atrial fibrillation BPH (benign prostatic hyperplasia) Cellulitis of foot, left Chronic diastolic (congestive) heart failure Chronic kidney disease Diabetes Erectile dysfunction Essential (primary) hypertension History of non-ST elevation myocardial infarction (NSTEMI) (08/26/16) Hyperlipidemia ICD (implantable cardioverter-defibrillator) in place Inguinal hernia of right side without obstruction or gangrene Iron deficiency anemia Kidney disease Longstanding persistent atrial fibrillation Multinodular goiter Non-ischemic cardiomyopathy 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 Nonrheumatic aortic (valve) stenosis Paroxysmal atrial fibrillation Partial seizure disorder Peripheral vascular occlusive disease Pre-syncope Seizures Syncope Type 2 diabetes mellitus Type 2 diabetes mellitus with foot ulcer Urinary retention Urinary retention due to benign prostatic hyperplasia Ventral incisional hernia without obstruction or gangrene Home Medications atorvastatin 80 mg tablet 80 mg PO QHS cholesterol 07/21/18 [History Last Taken 05/23/19] lamotrigine 200 mg tablet 200 mg PO BID seizures 07/21/18 [History Last Taken 05/24/19 05:30] metformin 500 mg tablet,extended release 24 hr 1,000 mg PO BID diabetes 07/21/18 [History Last Taken 03/18/22] finasteride 5 mg tablet 5 mg PO DAILY prostate 08/07/20 [History Last Taken Unknown] magnesium oxide 400 mg PO DAILY supplement 08/07/20 [History Last Taken Unknown] nitroglycerin 0.4 mg sublingual tablet 0.4 mg sublingual Q5M PRN Chest Pain 08/07/20 [History Last Taken Unknown] clopidogrel 75 mg tablet 75 mg PO DAILY 03/25/22 [History Last Taken Unknown] isosorbide mononitrate 60 mg tablet,extended release 24 hr 60 mg PO DAILY 03/25/22 [History Last Taken Unknown] pantoprazole 40 mg tablet,delayed release 40 mg PO DAILY 03/25/22 [History Last Taken Unknown] apixaban 5 mg tablet (Eliquis) 5 mg PO BID 05/09/22 [History Last Taken Unknown] yaetgvs-jgykyoqls-giuu tablet See Rx Instructions PO .COMPLEX 05/09/22 [History Last Taken Unknown] cholecalciferol (vitamin D3) 50 mcg (2,000 unit) capsule 50 mcg PO DAILY 05/09/22 [History Last Taken Unknown] cinnamon bark 500 mg capsule (Cinnamon) 500 mg PO DAILY 05/09/22 [History Last Taken Unknown] metoprolol tartrate 75 mg tablet 50 mg PO BID heart/blood pressure 05/09/22 [History Last Taken Unknown] semaglutide 1 mg/dose (2 mg/1.5 mL) subcutaneous pen injector (Ozempic) 1 mg subcut QWEEK 05/09/22 [History Last Taken Unknown] tamsulosin 0.4 mg capsule 0.8 mg PO DAILY 05/09/22 [History Last Taken Unknown] ciprofloxacin HCl 750 mg tablet 750 mg PO BID 12/10/22 [History Last Taken Unknown] doxycycline hyclate 100 mg capsule 100 mg PO DAILY 12/10/22 [History Last Taken Unknown] semaglutide 2 mg/dose (8 mg/3 mL) subcutaneous pen injector (Ozempic) 8 mg subcut QWEEK 12/10/22 [History Last Taken Unknown] Allergy/AdvReac Type Severity Reaction Status Date / Time carbamazepine [From Tegretol] Allergy Rash Verified 12/10/22 12:09 Family History Mother Cancer Heart disease Father Hypertension Diabetes Son Heart disease Surgical History History of angioplasty of peripheral vessel (06/28/14) History of atherectomy History of cardioversion (08/21/16) History of colonoscopy (01/2019) History of coronary artery stent placement (03/20/22) History of inguinal hernia repair 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) History of transurethral resection of prostate (01/2019) Status post biopsy of thyroid gland (09/2019) Social History household members: spouse Smoking Status: Former smoker quit date: 08/04/69 pack-years: 10 alcohol intake: current alcohol intake frequency: a few times a month substance use type: does not use ROS Constitutional Constitutional: Reports fatigue; Denies chills, fever(s) or malaise Eyes Eyes: Denies blurry vision ENT HEENT: Denies headache(s) or nasal discharge Cardiovascular Cardiovascular: Denies chest pain, dyspnea on exertion or syncope Respiratory/Chest Respiratory/Chest: Denies cough, shortness of breath at rest or shortness of breath with exertion Gastrointestinal Gastrointestinal: Denies constipation, diarrhea, nausea or vomiting Genitourinary Genitourinary: Denies dysuria Integumentary Integumentary: Reports wounds Neurologic Neurologic: Denies focal weakness, numbness or tremor(s) Psychiatric Psychiatric: Denies anxiety or depression Vital Signs Vital Signs Vital Signs: 12/10/22 12:10 12/10/22 12:19 12/10/22 14:15 Temperature 97.6 F L 97.5 F L 97.5 F L Temperature Source Temporal Oral Oral Pulse Rate 98 93 89 Respiratory Rate 14 18 19 H Blood Pressure 111/89 H 116/95 H 108/71 Blood Pressure Mean 96 102 84 Blood Pressure Source Blood Pressure Position Blood Pressure Location Pulse Ox 97 99 98 Oxygen Delivery Method Room Air Room Air Room Air 12/10/22 15:00 Temperature 97.5 F L Temperature Source Oral Pulse Rate 97 Respiratory Rate 18 Blood Pressure 102/69 Blood Pressure Mean 80 Blood Pressure Source Monitor Blood Pressure Position Semi-Fowlers Blood Pressure Location Right Arm Pulse Ox 96 Oxygen Delivery Method Room Air Weight Weight: 131 lb 6.328 oz Body Mass Index (BMI) 18.3 Physical Exam Narrative General: Alert, Oriented x3, Cooperative, No apparent distress HEENT: Atraumatic, PERRLA, EOMI, Normocephalic Oral: Moist Mucosa Neck: Supple, No JVD Lungs: Diminished, Normal air movement, No rhonchi, No wheeze, No rales Cardiovascular: Tachycardic, Regular Rhythm, Normal S1, Normal S2, murmurs Abdomen: Soft, Non Tender, Non-Distended, No Hepato-splenomegaly Extremities: No edema, Capillary Refill Less than 3 Seconds Skin: Left forefoot amputation with diabetic foot ulcer with surrounding erythema Musculoskeletal: No Tenderness to Palpation of Joints or Extremities Neurological: Cranial nerves II-XII grossly intact, Motor Exam 5/5 strength throughout, Sensory exam intact to light touch and pain Psych/Mental Status: Normal Affect, Appropriate Results Lab / Micro Data Result Diagrams: 12/10/22 13:05 12/10/22 13:05 Labs: Laboratory Results - last 24 hr 12/10/22 13:05: WBC 15.3 H, RBC 4.77, Hgb 13.8, Hct 43.6, MCV 91.4, MCH 28.9, MCHC 31.7 L, RDW Std Deviation 45.1 H, RDW Coeff of Danis 13.3, Plt Count 339, MPV 9.1, ESR 20 12/10/22 13:05: Sodium 134 L, Potassium 4.5, Chloride 103, Carbon Dioxide 23.0, Anion Gap 8, BUN 19 H, Creatinine 1.26, Estim Creat Clear Calc 40.21, Est GFR (MDRD) Af Amer 71, Est GFR (MDRD) Non-Af 59 L, BUN/Creatinine Ratio 15.1, Glucose 257 H, Calcium 9.2, C-React Prot Ext Range 98.70 H Radiology Impression Foot X-Ray 12/10/22 12:55 IMPRESSION: Status post transmetatarsal dictation. Soft tissue swelling and small amount of gas is seen in the region of the base of the first metatarsal with vascular calcification. Electronically Signed: Singh Brooks MD at 13:21 EDT , Foot X-Ray 12/10/22 12:58 IMPRESSION: Vascular calcification. Electronically Signed: Singh Brooks MD at 13:22 EDT , Assessment & Plan Assessment/Plan (1) Type 2 diabetes mellitus with left diabetic foot infection: PLAN: Plan 1. Diabetic foot ulcer with infection/DM2/peripheral vascular disease ? It does not appear that he followed up with vascular surgery after August depending on what the MRI shows and what podiatry would like to do may need to get vascular involved ? Will continue with insulin and monitor blood sugars, hold Ozempic and metformin ? Accu-Cheks ACHS ? Continue with vancomycin and Zosyn ? We will consult podiatry for debridement ? MRI is pending 2. HTN/HLD/chronic diastolic CHF/A-fib/CAD status post stent ? Blood pressures are little bit low and he used to have high blood pressure but is gotten better controlled since he retired ? We will hold Eliquis and place him on therapeutic Lovenox ? We will continue with his home blood pressure medications ? Will continue Lipitor and Plavix 3. Seizure disorder ? Continue with Lamictal 4. GERD ? Stable ? Continue with PPI 5. BPH ? Stable ? Continue with his home medications DVT: Therapeutic Lovenox 75 minutes was spent on direct patient care as well as chart review and collaboration with colleagues Charges/Coding Visit Charges Inpatient E&M: 24924 Init Hosp L3
[2022-12-10] MEDS: Insulin Lispro 100 UNIT/ML INSULN.PEN SC ×2 (17:23→22:34)
[2022-12-10 17:35] LABS: Bedside Glucose 198 mg/dL (74-106)
[2022-12-10] MEDS: Morphine 2 MG/ML Syringe IV ×2 (18:40→22:53)
[2022-12-10] MEDS: lamoTRIgine 100 MG Tablet 200 MG PO (22:33)
[2022-12-10] MEDS: Metoprolol Tartrate 50 MG Tablet PO (22:33)
[2022-12-10] MEDS: Atorvastatin Calcium 80 MG Tablet PO (22:35)
[2022-12-10] MEDS: 0.9% Saline Lock 10 ML Syringe IV (22:35)
[2022-12-10 22:56] LABS: Bedside Glucose 212 mg/dL (74-106)
[2022-12-11] VITALS (8 sets, daily range): BP systolic 96–116; BP diastolic 60–75; PULSE 72–107; RESP 16; TEMP 36.5–36.7; O2SAT 97–98
[2022-12-11] MEDS: Vancomycin IV 500 MG/100 ML BAG 100 MG IV ×2 (03:21→15:31)
[2022-12-11] MEDS: 0.9% Saline Lock 10 ML Syringe IV ×3 (05:54→23:58)
[2022-12-11] MEDS: Morphine 2 MG/ML Syringe IV ×4 (05:55→23:58)
[2022-12-11 06:27] LABS: Absolute Lymphocyte Count 1.42 X10^3/uL (0.83-4.51); Absolute Neutrophil Count 8.5 X10^3/uL (2.0-7.7); Basophil# 0.04 X10^3/uL; Basophil% 0.4 % (0-1); Eosinophil# 0.07 X10^3/uL; Eosinophils% 0.6 % (0-5); Hematocrit 37.2 % (40-54); Hemoglobin 11.8 g/dL (13.0-16.5); Lymphocyte # 1.42 X10^3/ul (0.83-4.51); Lymphocyte % 12.9 % (19-41); Mean Corp Hgb Conc 31.7 g/dL (32-36); Mean Corpuscular Hgb 28.8 pg (27.0-32.0); Mean Corpuscular Volume 90.7 fL (80-94); Mean Platelet Vol. 8.7 fl (6.2-12.0); Monocyte# 0.81 X10^3/uL; Monocyte% 7.4 % (0-10); NRBC Flagged by Analyzer 0 % (0-5); Neutrophil # 8.54 X10^3/uL (2.7-7.7); Neutrophil % 77.8 % (47-70); Platelet Count 297 K/mm3 (150-450); RBC Distribution Width CV 13.5 % (11.6-14.6); RBC Distribution Width SD 44.9 fl (35.1-43.9)
[2022-12-11 06:50] LABS: Bedside Glucose 147 mg/dL (74-106)
[2022-12-11 06:56] LABS: Anion Gap 5 (5-15); BUN 17 mg/dL (7-18); Calcium,Total 8.8 mg/dL (8.5-10.1); Chloride 105 mmol/L (98-107); Creatinine, Serum 0.89 mg/dL (0.70-1.30); EST Glomerular Filtration Rate 87 mL/min (>60); Est Glom Filt Rate - Afr Amer 105 mL/min (>60); Estimated Creatinine Clearance 56.74 ml/min; Glucose 142 mg/dL (74-106); Potassium 4.1 mmol/L (3.5-5.1); Sodium Level 135 mmol/L (136-145)
--- NOTE | 2022-12-11 08:07 | ART_ITS ---
Reason For Study: ulcer Procedure A bilateral lower extremity continuous wave Doppler with analog waveform analysis,segmental pressures,and ankle brachial indexes without exercise. No RUE BP due to IV site. LLE midfoot amputation. Left Segmental Pressures Left brachial= 103mmHg. Left dorsalis pedis artery = 89mmHg. The left dorsalis pedis waveforms are monophasic. The left posterior tibial artery waveforms are monophasic. HAIR DRESSER is noncompressible. Right Segmental Pressures Right digit = 19 mmHg. The right dorsalis pedis waveforms are biphasic. The right posterior tibial artery waveforms are biphasic. HAIR DRESSER and DPA are noncompressible. Indices The right digital-brachial index is .18. HAIR DRESSER and DPA are noncompressible. The left ankle brachial index by the dorsalis pedis is .86. HAIR DRESSER is noncompressible. VL/Lower Ext Art Exam w/o Exercis Interpretation Summary Right PAYAL not able to be obtained due to non-compressible vessels. Doppler/PVR waveforms of the right leg moderately diminished infrapopliteal. TBI and digit wavefrorms severe ly diminsihed. Left PAYAL 0.86, artificially elevated due to non-compressible vessels. Doppler/P VR waveforms of the left leg moderately diminshed distal SFA/popliteal, severely diminished infrapo pliteal. Ordering Physician: Andrea Baxter Performed By: Joo El RVT
[2022-12-11] MEDS: Insulin Glargine-YFGN 100 UNIT/ML Pen 15 UNIT SC (08:27)
[2022-12-11 08:50] LABS: Bedside Glucose 137 mg/dL (74-106)
--- NOTE | 2022-12-11 09:08 | PCM.PN.HOSP ---
Reason for Visit Reason for Visit: Diagnoses Type 2 diabetes mellitus with other skin complications (12/10/22) Local infection of the skin and subcutaneous tissue, unspecified (12/10/22) Subjective Subjective Still having pain in foot and reports he thinks he headed overnight because he went up to 10 out of 10 but is improving again, denied any other complaints at this time Objective Data Objective Data Vital Signs: Vital Signs Temp Pulse Resp BP Pulse Ox O2 Del Method 98 F 72 16 116/67 97 Room Air 12/11/22 03:20 12/11/22 03:20 12/11/22 03:20 12/11/22 03:20 12/11/22 03:20 12/11/22 03:20 Oxygen Delivery Method Room Air Weight: 59.6 kg Body Mass Index (BMI) 18.3 Intake & Output: Intake and Output for Last 24 Hours 12/09/22 12/10/22 12/11/22 23:59 23:59 23:59 Intake Total 610 / 610 150 / 150 Output Total 575 / 575 Balance 610 / 335 -425 / -425 Lab / Micro Data Result Diagrams: 12/11/22 06:13 12/11/22 06:13 Labs: Laboratory Results - last 24 hr 12/10/22 13:05: WBC 15.3 H, RBC 4.77, Hgb 13.8, Hct 43.6, MCV 91.4, MCH 28.9, MCHC 31.7 L, RDW Std Deviation 45.1 H, RDW Coeff of Danis 13.3, Plt Count 339, MPV 9.1, ESR 20 12/10/22 13:05: Sodium 134 L, Potassium 4.5, Chloride 103, Carbon Dioxide 23.0, Anion Gap 8, BUN 19 H, Creatinine 1.26, Estim Creat Clear Calc 40.21, Est GFR (MDRD) Af Amer 71, Est GFR (MDRD) Non-Af 59 L, BUN/Creatinine Ratio 15.1, Glucose 257 H, Calcium 9.2, C-React Prot Ext Range 98.70 H 12/10/22 17:13: POC Glucose 198 H 12/10/22 22:22: POC Glucose 212 H 12/11/22 05:53: POC Glucose 147 H 12/11/22 06:13: Sodium 135 L, Potassium 4.1, Chloride 105, Carbon Dioxide 25.0, Anion Gap 5, BUN 17, Creatinine 0.89, Estim Creat Clear Calc 56.74, Est GFR (MDRD) Af Amer 105, Est GFR (MDRD) Non-Af 87, BUN/Creatinine Ratio 19.0, Glucose 142 H, Calcium 8.8 12/11/22 06:13: WBC 11.0, RBC 4.10 L, Hgb 11.8 L, Hct 37.2 L, MCV 90.7, MCH 28.8, MCHC 31.7 L, RDW Std Deviation 44.9 H, RDW Coeff of Danis 13.5, Plt Count 297, MPV 8.7, Immature Gran % (Auto) 0.900, Neut % (Auto) 77.8 H, Lymph % (Auto) 12.9 L, [place] % (Auto) 7.4, Eos % (Auto) 0.6, Baso % (Auto) 0.4, Absolute Neuts (auto) 8.5 H, Absolute Lymphs (auto) 1.42, Nucleated RBC % 0 12/11/22 08:27: POC Glucose 137 H Radiography Diagnostic Testing: Radiology Impression Foot X-Ray 12/10/22 12:55 IMPRESSION: Status post transmetatarsal dictation. Soft tissue swelling and small amount of gas is seen in the region of the base of the first metatarsal with vascular calcification. Electronically Signed: Singh Brooks MD at 13:21 EDT , Foot X-Ray 12/10/22 12:58 IMPRESSION: Vascular calcification. Electronically Signed: Singh Brooks MD at 13:22 EDT , Lower Extremity MRI 12/10/22 14:35 IMPRESSION: There is osteomyelitis of the residual 1st metatarsal bone. Electronically Signed: Mp Duggan MD at 20:21 EDT , Physical Exam Narrative General: Alert, oriented, no apparent distress HEENT: Atraumatic, normocephalic Eyes: Anicteric, normal conjunctiva, extraocular movements grossly intact Neck: Supple Respiratory: Clear to auscultation bilaterally, normal respiratory effort Cardiovascular: Regular rate, ejection murmur appreciated GI: Soft, nontender, nondistended Extremities: No edema, left foot wrapped, top of right foot with slight petechial appearing spots Musculoskeletal: Moving all extremities Neuro: No overt focal neurological deficits Skin: No rashes appreciated Psych: Cooperative Assessment & Plan Assessment/Plan (1) Type 2 diabetes mellitus with left diabetic foot infection: PLAN: Plan 1. Diabetic foot ulcer with infection/DM2/peripheral vascular disease ? It does not appear that he followed up with vascular surgery after August depending on what the MRI shows and what podiatry would like to do may need to get vascular involved ? Will continue with insulin and monitor blood sugars, hold Ozempic and metformin ? Accu-Cheks ACHS ? Continue with vancomycin and Zosyn ? We will consult podiatry for debridement ? MRI is pending -12/11: Osteomyelitis of residual first metatarsal bone seen on MRI. Discussed with podiatry and they have additionally consulted vascular. Wound care also on board. Continue antibiotics, wound culture pending 2. HTN/HLD/chronic diastolic CHF/A-fib/CAD status post stent ? Blood pressures are little bit low and he used to have high blood pressure but is gotten better controlled since he retired ? We will hold Eliquis and place him on therapeutic Lovenox ? We will continue with his home blood pressure medications ? Will continue Lipitor and Plavix 3. Seizure disorder ? Continue with Lamictal 4. GERD ? Stable ? Continue with PPI 5. BPH ? Stable ? Continue with his home medications DVT: Therapeutic Lovenox Time spent in the patient's overall evaluation,decision-making process, review of diagnostic data, adjustment of management, discussion with other providers, nursing nursing and ancillary staff involved in patient's care documentation, 30 minutes Charges/Coding Visit Charges Inpatient E&M: 28083 Subs Hosp L2
[2022-12-11] MEDS: lamoTRIgine 100 MG Tablet 200 MG PO ×2 (09:38→22:03)
[2022-12-11] MEDS: Ondansetron 4 MG/2 ML Vial IV (09:38)
[2022-12-11] MEDS: Enoxaparin 60 MG/0.6 ML Syringe SC (09:38)
[2022-12-11] MEDS: Metoprolol Tartrate 50 MG Tablet PO (09:38)
[2022-12-11] MEDS: Pantoprazole Sodium 40 MG Tablet PO (09:39)
[2022-12-11] MEDS: Isosorbide Mononitrate 60 MG Tablet PO (09:39)
[2022-12-11] MEDS: Clopidogrel Bisulfate 75 MG Tablet PO (09:39)
[2022-12-11] MEDS: Finasteride 5 MG Tablet PO (09:39)
[2022-12-11] MEDS: Insulin Lispro 100 UNIT/ML INSULN.PEN SC ×3 (11:24→22:04)
[2022-12-11 11:45] LABS: Bedside Glucose 155 mg/dL (74-106)
--- NOTE | 2022-12-11 12:17 | PCM.CONS.GEN ---
Assessment & Plan Assessment/Plan (1) Type 2 diabetes mellitus with diabetic polyneuropathy: PLAN: Exam performed. Radiographs benign. MRI demonstrates osteo to first metatarsal stump, left foot. Vitally stable, leukocytosis resolved today. Cultures growing Staph aureus, pending C&S Patient receiving IV vancomycin and Zosyn, consider ID consult. Arterial studies demonstrated noncompressible posterior tibial pulse on the left lower extremity. PAYAL to DP is 0.86. DP PT left lower extremity monophasic. Vascular surgery on consult. Continue nonweightbearing to left lower extremity. Patient can heel weight-bear in surgical shoe to the left lower extremity for transfer purposes. Dressed with Betadine DSD no compression. Planning for revisional transmetatarsal amputation, patient currently has scheduled for 8:30 AM on 12/13/2022. We will await vascular surgery input for definitive planning. (2) Non-pressure chronic ulcer of other part of left foot with fat layer exposed: (3) Diabetic foot ulcer: (4) Acute osteomyelitis of left foot: HPI Consult Data Date of Consult: 12/11/22 HPI Narrative HPI Narrative: AGUSTO CASTILLO, is a 77 M who presents for acute left diabetic foot infection in setting of peripheral but the and arterial disease. Patient admits to some nausea and vomiting this morning. No other constitutional symptoms. Patient was seen in my office yesterday for which a bedside debridement was performed and purulent drainage was drained from the site. Patient has no other complaints at this time. Pain is well controlled. [facility] Medical History Acid reflux Acute osteomyelitis of left calcaneus Amputation at midfoot Anemia Atherosclerosis of coronary artery of [place] heart without angina pectoris Atrial fibrillation BPH (benign prostatic hyperplasia) Cellulitis of foot, left Chronic diastolic (congestive) heart failure Chronic kidney disease Diabetes Erectile dysfunction Essential (primary) hypertension History of non-ST elevation myocardial infarction (NSTEMI) (08/26/16) Hyperlipidemia Inguinal hernia of right side without obstruction or gangrene Iron deficiency anemia Kidney disease Longstanding persistent atrial fibrillation Multinodular goiter Non-ischemic cardiomyopathy 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 Nonrheumatic aortic (valve) stenosis Paroxysmal atrial fibrillation Partial seizure disorder Peripheral vascular occlusive disease Pre-syncope Seizures Syncope Type 2 diabetes mellitus Type 2 diabetes mellitus with foot ulcer Urinary retention Urinary retention due to benign prostatic hyperplasia Ventral incisional hernia without obstruction or gangrene Home Medications atorvastatin 80 mg tablet 80 mg PO QHS cholesterol 07/21/18 [History Last Taken 12/09/22] lamotrigine 200 mg tablet 200 mg PO BID seizures 07/21/18 [History Last Taken 12/10/22 08:00] metformin 500 mg tablet,extended release 24 hr 1,000 mg PO BID diabetes 07/21/18 [History Last Taken 12/10/22 08:00] finasteride 5 mg tablet 5 mg PO DAILY prostate 08/07/20 [History Last Taken 12/10/22 08:00] magnesium oxide 400 mg PO DAILY supplement 08/07/20 [History Last Taken 12/10/22 08:00] nitroglycerin 0.4 mg sublingual tablet 0.4 mg sublingual Q5M PRN Chest Pain 08/07/20 [History Last Taken Unknown] clopidogrel 75 mg tablet 75 mg PO DAILY Check with primary doctor 03/25/22 [History Last Taken 12/10/22 08:00] isosorbide mononitrate 60 mg tablet,extended release 24 hr 60 mg PO DAILY heart 03/25/22 [History Last Taken 12/10/22 08:00] pantoprazole 40 mg tablet,delayed release 40 mg PO DAILY stomach 03/25/22 [History Last Taken 12/10/22 08:00] apixaban 5 mg tablet (Eliquis) 5 mg PO BID blood thinner 05/09/22 [History Last Taken 12/10/22 08:00] [id number] tablet See Rx Instructions PO .COMPLEX supplement 05/09/22 [History Last Taken Unknown] cholecalciferol (vitamin D3) 50 mcg (2,000 unit) capsule 50 mcg PO DAILY supplement 05/09/22 [History Last Taken 12/10/22 08:00] cinnamon bark 500 mg capsule (Cinnamon) 500 mg PO DAILY supplement 05/09/22 [History Last Taken 12/10/22 08:00] metoprolol tartrate 75 mg tablet 50 mg PO BID heart/blood pressure 05/09/22 [History Last Taken 12/10/22 08:00] semaglutide 1 mg/dose (2 mg/1.5 mL) subcutaneous pen injector (Ozempic) 1 mg subcut QWEEK dm 05/09/22 [History Last Taken 12/03/22] tamsulosin 0.4 mg capsule 0.8 mg PO DAILY urination 05/09/22 [History Last Taken 12/10/22 08:00] ciprofloxacin HCl 750 mg tablet 750 mg PO BID asntibiotic 12/10/22 [History Last Taken 12/10/22 08:00] doxycycline hyclate 100 mg capsule 100 mg PO DAILY antibiotic 12/10/22 [History Last Taken 12/10/22 08:00] semaglutide 2 mg/dose (8 mg/3 mL) subcutaneous pen injector (Ozempic) 8 mg subcut QWEEK dm 12/10/22 [History Last Taken 12/03/22] Allergy/AdvReac Type Severity Reaction Status Date / Time carbamazepine [From Tegretol] Allergy Rash Verified 12/10/22 12:09 Family History Mother Cancer Heart disease Father Hypertension Diabetes Son Heart disease Surgical History History of angioplasty of peripheral vessel (06/28/14) History of atherectomy History of cardioversion (08/21/16) History of colonoscopy (01/2019) History of coronary artery stent placement (03/20/22) History of inguinal hernia repair 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) History of transurethral resection of prostate (01/2019) Status post biopsy of thyroid gland (09/2019) Social History household members: spouse Smoking Status: Former smoker quit date: 08/04/69 pack-years: 10 alcohol intake: current alcohol intake frequency: a few times a month substance use type: does not use ROS Constitutional Constitutional: Denies change in weight, chills or malaise Eyes Eyes: Denies acute decrease in peripheral vision, change in eye color or discongugate gaze ENT HEENT: Denies bleeding gums, change in voice or epistaxis Cardiovascular Cardiovascular: Denies abdominal edema, chest pain at rest or dyspnea Respiratory/Chest Respiratory/Chest: Denies change in phlegm color, dusky skin or dyspnea Gastrointestinal Gastrointestinal: Reports nausea; Denies belching or bloating Physical Exam Narrative Monophasic pulses left lower extremity. Atrophic skin changes noted. TMA noted on left side. Full-thickness wound plantar medial left forefoot. Dry stable eschar to base. Improved erythema edema to periwound area. No residual purulence today. No evidence of fluctuance or crepitus. Lab / Micro Data Result Diagrams: 12/11/22 06:13 12/11/22 06:13 Labs: Laboratory Results - last 24 hr 12/10/22 13:05: WBC 15.3 H, RBC 4.77, Hgb 13.8, Hct 43.6, MCV 91.4, MCH 28.9, MCHC 31.7 L, RDW Std Deviation 45.1 H, RDW Coeff of Danis 13.3, Plt Count 339, MPV 9.1, ESR 20 12/10/22 13:05: Sodium 134 L, Potassium 4.5, Chloride 103, Carbon Dioxide 23.0, Anion Gap 8, BUN 19 H, Creatinine 1.26, Estim Creat Clear Calc 40.21, Est GFR (MDRD) Af Amer 71, Est GFR (MDRD) Non-Af 59 L, BUN/Creatinine Ratio 15.1, Glucose 257 H, Calcium 9.2, C-React Prot Ext Range 98.70 H 12/10/22 17:13: POC Glucose 198 H 12/10/22 22:22: POC Glucose 212 H 12/11/22 05:53: POC Glucose 147 H 12/11/22 06:13: Sodium 135 L, Potassium 4.1, Chloride 105, Carbon Dioxide 25.0, Anion Gap 5, BUN 17, Creatinine 0.89, Estim Creat Clear Calc 56.74, Est GFR (MDRD) Af Amer 105, Est GFR (MDRD) Non-Af 87, BUN/Creatinine Ratio 19.0, Glucose 142 H, Calcium 8.8 12/11/22 06:13: WBC 11.0, RBC 4.10 L, Hgb 11.8 L, Hct 37.2 L, MCV 90.7, MCH 28.8, MCHC 31.7 L, RDW Std Deviation 44.9 H, RDW Coeff of Danis 13.5, Plt Count 297, MPV 8.7, Immature Gran % (Auto) 0.900, Neut % (Auto) 77.8 H, Lymph % (Auto) 12.9 L, [place] % (Auto) 7.4, Eos % (Auto) 0.6, Baso % (Auto) 0.4, Absolute Neuts (auto) 8.5 H, Absolute Lymphs (auto) 1.42, Nucleated RBC % 0 12/11/22 08:27: POC Glucose 137 H 12/11/22 11:23: POC Glucose 155 H Radiology Impression Foot X-Ray 12/10/22 12:55 IMPRESSION: Status post transmetatarsal dictation. Soft tissue swelling and small amount of gas is seen in the region of the base of the first metatarsal with vascular calcification. Electronically Signed: Singh Brooks MD at 13:21 EDT , Foot X-Ray 12/10/22 12:58 IMPRESSION: Vascular calcification. Electronically Signed: Singh Brooks MD at 13:22 EDT , Lower Extremity MRI 12/10/22 14:35 IMPRESSION: There is osteomyelitis of the residual 1st metatarsal bone. Electronically Signed: Mp Duggan MD at 20:21 EDT ,
--- NOTE | 2022-12-11 13:17 | WOUNDNOTE ---
wound photo: left foot
--- NOTE | 2022-12-11 13:37 | CASEMGMT ---
EMANI GREGG Assessment: Face to Face with pt for initial transition planning/care coordination assessment. EMANI GREGG introduced self and role at [facility], pt voices understanding and consents to assessment. Pt is A/O x4 and answers all questions appropriately at this time. Pt sitting up in bed in no distress. Care providers, pharmacy, and demographics verified/updated. Admitting Dx: diabetic foot ulcer with infection PCP:Luiz Specialists:fabiana Baxter; janine Camp Preferred Pharmacy: [facility] Insurance: [facility], [facility] Prescription Benefit: yes LNOK: Sandhya Warner, ; Marleny Warner, son Living Arrangements: Pt lives with in a two story condo with a ramp to enter. Pt reports he is I in ADL's and denies concerns at home. Transportation: Pt drives self and denies concerns with transportation. DME/HHC/SNF: Pt has a BP cuff, walker, cane and BGM at home. Pt is using the walker at home. Pt states he checks his blood sugars 4x/day and has sufficient supplies for his BGM. Pt denies hx of HHC or SNF stays. Pt states no concerns with going home at time of dc. He states [facility] and his performs dressing changes in between times. He denies need for HHC at this time. Pt states no further concerns/needs. CM to follow. Advised pt to ask CM if any further question/concerns/needs arise, voices understanding. Pt Goal: Home Plan: Home with performing dressing changes, C appts and follow for ID c/s.
[2022-12-11] MEDS: Glucerna Shake 120 ML LIQUID PO ×2 (14:10→16:55)
--- NOTE | 2022-12-11 14:54 | CON.PCM.SX_ITS ---
Assessment & Plan Assessment/Plan (1) Acute osteomyelitis of left foot: PLAN: -repeat PVR similar to previous -d/w podiatry, will plan angio tomorrow prior to surgical plans -patient agreeable HPI Consult Data Date of Consult: 12/11/22 HPI Narrative HPI Narrative: AGUSTO CASTILLO, is a 77 M who presents with worsened left foot wound, infection. Previously was followed as outpatient with slow healing wounds and known PAD. Wound appearance has improved with antibiotics and tentative plans for surgical wash out vs formal TMA later this week. [facility] Medical History Acid reflux Acute osteomyelitis of left calcaneus Amputation at midfoot Anemia Atherosclerosis of coronary artery of [place] heart without angina pectoris Atrial fibrillation BPH (benign prostatic hyperplasia) Cellulitis of foot, left Chronic diastolic (congestive) heart failure Chronic kidney disease Diabetes Erectile dysfunction Essential (primary) hypertension History of non-ST elevation myocardial infarction (NSTEMI) (08/26/16) Hyperlipidemia Inguinal hernia of right side without obstruction or gangrene Iron deficiency anemia Kidney disease Longstanding persistent atrial fibrillation Multinodular goiter Non-ischemic cardiomyopathy 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 Nonrheumatic aortic (valve) stenosis Paroxysmal atrial fibrillation Partial seizure disorder Peripheral vascular occlusive disease Pre-syncope Seizures Syncope Type 2 diabetes mellitus Type 2 diabetes mellitus with foot ulcer Urinary retention Urinary retention due to benign prostatic hyperplasia Ventral incisional hernia without obstruction or gangrene Home Medications atorvastatin 80 mg tablet 80 mg PO QHS cholesterol 07/21/18 [History Last Taken 12/09/22] lamotrigine 200 mg tablet 200 mg PO BID seizures 07/21/18 [History Last Taken 12/10/22 08:00] metformin 500 mg tablet,extended release 24 hr 1,000 mg PO BID diabetes 07/21/18 [History Last Taken 12/10/22 08:00] finasteride 5 mg tablet 5 mg PO DAILY prostate 08/07/20 [History Last Taken 12/10/22 08:00] magnesium oxide 400 mg PO DAILY supplement 08/07/20 [History Last Taken 12/10/22 08:00] nitroglycerin 0.4 mg sublingual tablet 0.4 mg sublingual Q5M PRN Chest Pain 08/07/20 [History Last Taken Unknown] clopidogrel 75 mg tablet 75 mg PO DAILY Check with primary doctor 03/25/22 [History Last Taken 12/10/22 08:00] isosorbide mononitrate 60 mg tablet,extended release 24 hr 60 mg PO DAILY heart 03/25/22 [History Last Taken 12/10/22 08:00] pantoprazole 40 mg tablet,delayed release 40 mg PO DAILY stomach 03/25/22 [History Last Taken 12/10/22 08:00] apixaban 5 mg tablet (Eliquis) 5 mg PO BID blood thinner 05/09/22 [History Last Taken 12/10/22 08:00] jzlcsio-nwicnujpo-xhas tablet See Rx Instructions PO .COMPLEX supplement 05/09/22 [History Last Taken Unknown] cholecalciferol (vitamin D3) 50 mcg (2,000 unit) capsule 50 mcg PO DAILY supplement 05/09/22 [History Last Taken 12/10/22 08:00] cinnamon bark 500 mg capsule (Cinnamon) 500 mg PO DAILY supplement 05/09/22 [History Last Taken 12/10/22 08:00] metoprolol tartrate 75 mg tablet 50 mg PO BID heart/blood pressure 05/09/22 [History Last Taken 12/10/22 08:00] semaglutide 1 mg/dose (2 mg/1.5 mL) subcutaneous pen injector (Ozempic) 1 mg subcut QWEEK dm 05/09/22 [History Last Taken 12/03/22] tamsulosin 0.4 mg capsule 0.8 mg PO DAILY urination 05/09/22 [History Last Taken 12/10/22 08:00] ciprofloxacin HCl 750 mg tablet 750 mg PO BID asntibiotic 12/10/22 [History Last Taken 12/10/22 08:00] doxycycline hyclate 100 mg capsule 100 mg PO DAILY antibiotic 12/10/22 [History Last Taken 12/10/22 08:00] semaglutide 2 mg/dose (8 mg/3 mL) subcutaneous pen injector (Ozempic) 8 mg subcut QWEEK dm 12/10/22 [History Last Taken 12/03/22] Allergy/AdvReac Type Severity Reaction Status Date / Time carbamazepine [From Tegretol] Allergy Rash Verified 12/10/22 12:09 Family History Mother Cancer Heart disease Father Hypertension Diabetes Son Heart disease Surgical History History of angioplasty of peripheral vessel (06/28/14) History of atherectomy History of cardioversion (08/21/16) History of colonoscopy (01/2019) History of coronary artery stent placement (03/20/22) History of inguinal hernia repair 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) History of transurethral resection of prostate (01/2019) Status post biopsy of thyroid gland (09/2019) Social History household members: spouse Smoking Status: Former smoker quit date: 08/04/69 pack-years: 10 alcohol intake: current alcohol intake frequency: a few times a month substance use type: does not use ROS Constitutional Constitutional: Denies chills, fever(s), frequent falls, lethargy or weakness Eyes Eyes: Denies blind spots, change in vision or loss of vision ENT HEENT: Denies bleeding gums, hoarseness or sore throat Cardiovascular Cardiovascular: Denies abdominal pain, bluish discoloration of hand/feet, chest pain with activity, claudication, cold extremities, cyanosis, dyspnea on exertion, erythema on extremities, irregular heart rhythm, leg edema, leg ulcers, numbness in extremities or weakness in extremities Respiratory/Chest Respiratory/Chest: Denies cough, excessive phlegm production, shortness of breath at rest, shortness of breath with exertion or wheezing Gastrointestinal Gastrointestinal: Denies anorexia, change in stool character, constipation, diarrhea, melena or rectal bleeding Genitourinary Genitourinary: Denies dysuria or hematuria Musculoskeletal Musculoskeletal: Denies abnormal gait Integumentary Integumentary: Reports other Details: ; Denies erythema, non-healing lesions or wounds Neurologic Neurologic: Denies abnormal speech, focal weakness, headache(s), loss of vision, numbness, paresthesias or sensory deficit Hematologic/Lymphatic Hematologic/Lymphatic: Denies easy bleeding, easy bruising or lymphadenopathy Physical Exam Const alert, oriented x3, no apparent distress and healthy appearing General Appearance: cooperative; Negative for combative or lethargic Orientation / Consciousness: awake Exam Limitations: no limitations HEENT Head and Scalp: normocephalic and atraumatic Eyes EOMs intact bilaterally General Eye: normal appearance of both eyes Neck full ROM General: trachea midline Resp normal respiratory effort and no use of accessory muscles Effort and Inspection: Negative for labored, stridor or audible wheezes Cardio regular rate and regular rhythm Peripheral Pulses: brachial pulses present, radial pulses present and femoral pulses present; Negative for popliteal pulses present, posterior tibial pulses present or dorsalis pedis pulses present GI non-tender and non-distended; Negative for hepatosplenomegaly Back/Spine Cervical Spine: cervical ROM normal Extremity full ROM, normal capillary refill and no clubbing, cyanosis or edema Skin no rashes or lesions noted Neuro oriented x3, CN's II-XII intact bilaterally, no focal motor deficits and no sensory deficits noted Psych thought process normal, cooperative, affect normal, speech normal and activity/motor behavior normal Lab / Micro Data Result Diagrams: 12/11/22 06:13 12/11/22 06:13 Labs: Laboratory Results - last 24 hr 12/10/22 17:13: POC Glucose 198 H 12/10/22 22:22: POC Glucose 212 H 12/11/22 05:53: POC Glucose 147 H 12/11/22 06:13: Sodium 135 L, Potassium 4.1, Chloride 105, Carbon Dioxide 25.0, Anion Gap 5, BUN 17, Creatinine 0.89, Estim Creat Clear Calc 56.74, Est GFR (MDRD) Af Amer 105, Est GFR (MDRD) Non-Af 87, BUN/Creatinine Ratio 19.0, Glucose 142 H, Calcium 8.8 12/11/22 06:13: WBC 11.0, RBC 4.10 L, Hgb 11.8 L, Hct 37.2 L, MCV 90.7, MCH 28.8, MCHC 31.7 L, RDW Std Deviation 44.9 H, RDW Coeff of Danis 13.5, Plt Count 297, MPV 8.7, Immature Gran % (Auto) 0.900, Neut % (Auto) 77.8 H, Lymph % (Auto) 12.9 L, [place] % (Auto) 7.4, Eos % (Auto) 0.6, Baso % (Auto) 0.4, Absolute Neuts (auto) 8.5 H, Absolute Lymphs (auto) 1.42, Nucleated RBC % 0 12/11/22 08:27: POC Glucose 137 H 12/11/22 11:23: POC Glucose 155 H Micro: Microbiology 12/10/22 11:30 Wound - Left Foot Gram Stain - Final 12/10/22 11:30 Wound - Left Foot Wound Culture - Preliminary Staphylococcus aureus Radiology Impression Lower Extremity MRI 12/10/22 14:35 IMPRESSION: There is osteomyelitis of the residual 1st metatarsal bone. Electronically Signed: Mp Duggan MD at 20:21 EDT , Extremity Arterial Study 12/11/22 08:07 Interpretation Summary Right PAYAL not able to be obtained due to non-compressible vessels. Doppler/PVR waveforms of the right leg moderately diminished infrapopliteal. TBI and digit wavefrorms severely diminsihed. Left PAYAL 0.86, artificially elevated due to non-compressible vessels. Doppler/PVR waveforms of the left leg moderately diminshed distal SFA/popliteal, severely diminished infrapopliteal. Ordering Physician: Andrea Baxter Performed By: Joo El, RVT Charges/Coding Visit Charges Inpatient E&M: 23927 Init Hosp L3
[2022-12-11] MEDS: Tamsulosin HCl 0.4 MG Capsule 0.8 MG PO (16:55)
[2022-12-11 17:20] LABS: Bedside Glucose 194 mg/dL (74-106)
[2022-12-11] MEDS: Atorvastatin Calcium 80 MG Tablet PO (22:03)
[2022-12-11 22:25] LABS: Bedside Glucose 203 mg/dL (74-106)
[2022-12-12] VITALS (9 sets, daily range): BP systolic 106–134; BP diastolic 65–92; PULSE 86–100; RESP 15–18; TEMP 36.3–36.8; O2SAT 94–99
[2022-12-12 02:41] LABS: Absolute Lymphocyte Count 0.73 X10^3/uL (0.83-4.51); Absolute Neutrophil Count 9.4 X10^3/uL (2.0-7.7); Basophil# 0.04 X10^3/uL; Basophil% 0.4 % (0-1); Eosinophil# 0.09 X10^3/uL; Eosinophils% 0.8 % (0-5); Hematocrit 35.4 % (40-54); Hemoglobin 11.3 g/dL (13.0-16.5); Lymphocyte # 0.73 X10^3/ul (0.83-4.51); Lymphocyte % 6.6 % (19-41); Mean Corp Hgb Conc 31.9 g/dL (32-36); Mean Corpuscular Hgb 28.9 pg (27.0-32.0); Mean Corpuscular Volume 90.5 fL (80-94); Mean Platelet Vol. 8.7 fl (6.2-12.0); Monocyte# 0.69 X10^3/uL; Monocyte% 6.2 % (0-10); NRBC Flagged by Analyzer 0 % (0-5); Neutrophil # 9.41 X10^3/uL (2.7-7.7); Neutrophil % 84.9 % (47-70); Platelet Count 290 K/mm3 (150-450); RBC Distribution Width CV 13.3 % (11.6-14.6); RBC Distribution Width SD 44.3 fl (35.1-43.9); Red Blood Count 3.91 M/mm3 (4.6-6.2); White Blood Count 11.1 K/mm3 (4.4-11.0)
[2022-12-12 03:04] LABS: Anion Gap 8 (5-15); BUN 15 mg/dL (7-18); BUN/Creat Ratio 17.8 RATIO (10-20); Calcium,Total 8.6 mg/dL (8.5-10.1); Chloride 102 mmol/L (98-107); Creatinine, Serum 0.84 mg/dL (0.70-1.30); EST Glomerular Filtration Rate 93 mL/min (>60); Est Glom Filt Rate - Afr Amer 113 mL/min (>60); Estimated Creatinine Clearance 60.11 ml/min; Glucose 173 mg/dL (74-106); Potassium 3.9 mmol/L (3.5-5.1); Sodium Level 135 mmol/L (136-145)
[2022-12-12 03:06] LABS: Vancomycin, Trough Level 8.1 ug/mL (5.0-15.0)
--- NOTE | 2022-12-12 03:23 | PCM.RX.CS ---
Consult Type of Consult: Follow-up Suspected Infection: Osteomyelitis Labs: Sodium 135 mmol/L (136-145) L 12/12/22 02:33 Potassium 3.9 mmol/L (3.5-5.1) 12/12/22 02:33 Chloride 102 mmol/L (98-107) 12/12/22 02:33 Carbon Dioxide 25.0 mmol/L (21.0-32.0) 12/12/22 02:33 Anion Gap 8 (5-15) 12/12/22 02:33 BUN 15 mg/dL (7-18) 12/12/22 02:33 Creatinine 0.84 mg/dL (0.70-1.30) 12/12/22 02:33 Est GFR (MDRD) Af Amer 113 mL/min (>60) 12/12/22 02:33 Est GFR (MDRD) Non-Af 93 mL/min (>60) 12/12/22 02:33 BUN/Creatinine Ratio 17.8 RATIO (10-20) 12/12/22 02:33 Glucose 173 mg/dL (74-106) H 12/12/22 02:33 Vancomycin Trough 8.1 ug/mL (5.0-15.0) 12/12/22 02:33 Microbiology: Microbiology 12/10/22 11:30 Wound - Left Foot Gram Stain - Final 12/10/22 11:30 Wound - Left Foot Wound Culture - Preliminary Staphylococcus aureus Goal Trough: 15-20 mcg/mL Pharmacy Plan for Drug Dosing: VANCOMYCIN LEVEL RECEIVED Current Vancomycin Dose: 500mg Q12H Number of Doses Received: 1000mg x1, 500mg x2 Vancomycin Level: 8.1 Hours Since Last Dose: 11 Renal Function: sCr 0.84 (CrCl 60.1 ml/min) Renal Function Trend: improved/baseline Lab/Micro: wound cx pending Vancomycin Plan/Comments: Adjust dosing regimen to Vancomycin 1000mg Q12H due to SUBtherapeutic drug level Pending Level: Vancomycin trough @ 1530 12/13/22 Pharmacy Service will continue to monitor and adjust dosing as required. Labs to be done on [date and time ordered]: Vancomycin trough @ 1530 12/13/22
[2022-12-12] MEDS: Vancomycin IV 1,000 MG/200 ML BAG 200 MG IV ×2 (04:00→16:46)
[2022-12-12] MEDS: 0.9% Saline Lock 10 ML Syringe IV ×3 (05:22→21:36)
[2022-12-12] MEDS: Morphine 2 MG/ML Syringe IV ×3 (05:22→21:36)
[2022-12-12] MEDS: Insulin Lispro 100 UNIT/ML INSULN.PEN SC (07:03)
[2022-12-12 07:20] LABS: Bedside Glucose 181 mg/dL (74-106)
--- NOTE | 2022-12-12 08:01 | PCM.PN.HOSP ---
Reason for Visit Reason for Visit: Diagnoses Type 2 diabetes mellitus with diabetic polyneuropathy (12/10/22) Type 2 diabetes mellitus with foot ulcer (12/10/22) Type 2 diabetes mellitus with other skin complications (12/10/22) Local infection of the skin and subcutaneous tissue, unspecified (12/10/22) Non-pressure chronic ulcer of other part of unspecified foot with unspecified severity (12/10/22) Non-pressure chronic ulcer of other part of left foot with fat layer exposed (12/10/22) Other acute osteomyelitis, left ankle and foot (12/10/22) Subjective Subjective Still having significant mount of pain, no other acute complaints at this time Objective Data Objective Data Vital Signs: Vital Signs Temp Pulse Resp BP Pulse Ox O2 Del Method 98.2 F 99 16 106/65 96 Room Air 12/12/22 05:17 12/12/22 05:17 12/12/22 05:17 12/12/22 05:17 12/12/22 05:17 12/12/22 05:17 Oxygen Delivery Method Room Air Weight: 59.6 kg Body Mass Index (BMI) 18.3 Intake & Output: Intake and Output for Last 24 Hours 12/10/22 12/11/22 12/12/22 23:59 23:59 23:59 Intake Total 610 / 610 900.00 / 900.00 427.75 / 427.75 Output Total 1575 / 1700 450 / 450 Balance 610 / 335 -675.00 / -800.00 -22.25 / -22.25 Lab / Micro Data Result Diagrams: 12/12/22 02:33 12/12/22 02:33 Labs: Laboratory Results - last 24 hr 12/11/22 08:27: POC Glucose 137 H 12/11/22 11:23: POC Glucose 155 H 12/11/22 16:54: POC Glucose 194 H 12/11/22 22:00: POC Glucose 203 H 12/12/22 02:33: Vancomycin Trough 8.1 12/12/22 02:33: WBC 11.1 H, RBC 3.91 L, Hgb 11.3 L, Hct 35.4 L, MCV 90.5, MCH 28.9, MCHC 31.9 L, RDW Std Deviation 44.3 H, RDW Coeff of Danis 13.3, Plt Count 290, MPV 8.7, Immature Gran % (Auto) 1.100 H, Neut % (Auto) 84.9 H, Lymph % (Auto) 6.6 L, [place] % (Auto) 6.2, Eos % (Auto) 0.8, Baso % (Auto) 0.4, Absolute Neuts (auto) 9.4 H, Absolute Lymphs (auto) 0.73 L, Nucleated RBC % 0 12/12/22 02:33: Sodium 135 L, Potassium 3.9, Chloride 102, Carbon Dioxide 25.0, Anion Gap 8, BUN 15, Creatinine 0.84, Estim Creat Clear Calc 60.11, Est GFR (MDRD) Af Amer 113, Est GFR (MDRD) Non-Af 93, BUN/Creatinine Ratio 17.8, Glucose 173 H, Calcium 8.6 12/12/22 05:24: POC Glucose 181 H Micro: Microbiology 12/10/22 11:30 Wound - Left Foot Gram Stain - Final 12/10/22 11:30 Wound - Left Foot Wound Culture - Final Meth. resistant Staph. aureus Radiography Diagnostic Testing: Radiology Impression Extremity Arterial Study 12/11/22 08:07 Interpretation Summary Right PAYAL not able to be obtained due to non-compressible vessels. Doppler/PVR waveforms of the right leg moderately diminished infrapopliteal. TBI and digit wavefrorms severely diminsihed. Left PAYAL 0.86, artificially elevated due to non-compressible vessels. Doppler/PVR waveforms of the left leg moderately diminshed distal SFA/popliteal, severely diminished infrapopliteal. Ordering Physician: Andrea Baxter Performed By: Joo El, RVT Physical Exam Narrative General: Alert, oriented, no apparent distress HEENT: Atraumatic, normocephalic Eyes: Anicteric, normal conjunctiva, extraocular movements grossly intact Neck: Supple Respiratory: Clear to auscultation bilaterally, normal respiratory effort Cardiovascular: Regular rate, ejection murmur appreciated GI: Soft, nontender, nondistended Extremities: No edema, left foot wrapped, top of right foot with slight petechial appearing spots Musculoskeletal: Moving all extremities Neuro: No overt focal neurological deficits Skin: No rashes appreciated Psych: Cooperative Assessment & Plan Assessment/Plan (1) Type 2 diabetes mellitus with left diabetic foot infection: PLAN: Plan 1. Diabetic foot ulcer with infection/DM2/peripheral vascular disease ? It does not appear that he followed up with vascular surgery after August depending on what the MRI shows and what podiatry would like to do may need to get vascular involved ? Will continue with insulin and monitor blood sugars, hold Ozempic and metformin ? Accu-Cheks ACHS ? Continue with vancomycin and Zosyn ? We will consult podiatry for debridement ? MRI is pending -12/11: Osteomyelitis of residual first metatarsal bone seen on MRI. Discussed with podiatry and they have additionally consulted vascular. Wound care also on board. Continue antibiotics, wound culture pending -12/12: Angiogram today prior to deciding definitive surgical intervention but tentatively for Wednesday 12/13 at 8:30 AM. Wound care following. Left foot wound presently growing MRSA, will have Intra-Op cultures as well. Will likely need ID consult moving forward 2. HTN/HLD/chronic diastolic CHF/A-fib/CAD status post stent ? Blood pressures are little bit low and he used to have high blood pressure but is gotten better controlled since he retired ? We will hold Eliquis and place him on therapeutic Lovenox ? We will continue with his home blood pressure medications ? Will continue Lipitor and Plavix 3. Seizure disorder ? Continue with Lamictal 4. GERD ? Stable ? Continue with PPI 5. BPH ? Stable ? Continue with his home medications DVT: Therapeutic Lovenox Time spent in the patient's overall evaluation,decision-making process, review of diagnostic data, adjustment of management, discussion with other providers, nursing nursing and ancillary staff involved in patient's care documentation, 30 minutes Charges/Coding Visit Charges Inpatient E&M: 88493 Subs Hosp L2
[2022-12-12] MEDS: Insulin Glargine-YFGN 100 UNIT/ML Pen 15 UNIT SC (08:32)
[2022-12-12] MEDS: Isosorbide Mononitrate 60 MG Tablet PO (10:02)
[2022-12-12] MEDS: Metoprolol Tartrate 50 MG Tablet PO ×2 (10:02→22:39)
[2022-12-12] MEDS: Pantoprazole Sodium 40 MG Tablet PO (10:03)
[2022-12-12] MEDS: Finasteride 5 MG Tablet PO (10:03)
[2022-12-12] MEDS: lamoTRIgine 100 MG Tablet 200 MG PO ×2 (10:03→22:38)
[2022-12-12] MEDS: 0.9% Normal Saline 1,000 ML 15 ML IV (10:04)
--- NOTE | 2022-12-12 14:01 | OP.PCM_ITS ---
Report of Operation Date of Procedure: 12/12/22 Pre-Operative Diagnosis: ASO with non healing left foot wound Post-Operative Diagnosis: same Surgery/Procedure Performed:: aortogram, left lower extremity runoff Left sfa/popliteal thrombectomy, LABEL PRINTING MACHINIST/stent Left TP trunk LABEL PRINTING MACHINIST IVUS SFA/popliteal, TP trunk, peroneal Surgeon: Wong Camp Type of Anesthesia: Local and Sedation,Conscious Estimated Blood Loss (mL): 5 Description of Procedure: HPI: Patient is a [age] male with peripheral vascular disease and a nonhealing left transmetatarsal amputation. He had previously undergone left lower extremity interventions several years prior and noninvasive vascular studies suggest that these are at least in part reoccluded. He presents now for angiogram with possible intervention. Description of procedure: Upon obtaining form consent and verification correct patient procedure site patient was taken to the [facility] where he was positioned prepped and draped in usual sterile fashion. Time was performed conscious sedation was administered with Versed and fentanyl. Skin overlying the right common femoral artery was anesthetized with 1% lidocaine and the vessel accessed with a micropuncture needle wire under ultrasound guidance. This was then exchanged for micropuncture sheath through which injection femoral angiogram was performed revealed satisfactory placement no extravasation or dissection. Through the micropuncture sheath a Bentson wire advanced abdominal aorta and the micropuncture sheath exchanged out for a short 5 Egyptian sheath. Through the 5 Egyptian sheath Omni Flush catheter was advanced abdominal aorta and digital traction aortogram pelvic angiogram was performed. We then navigated the contralateral iliacs advancing our catheter in the distal external ankle artery. From this position sequential imaging subtraction angiography left lower extremities performed which revealed total occlusion of his previously placed popliteal stents. We then navigated into the superficial femoral artery with angled glide catheter and Bentson wire advanced to just cephalad to the occlusion. The catheter was withdrawn and the 5 Egyptian sheath exchanged out for a 6 Egyptian Ansell sheath was advanced in the position this proximal superficial femoral artery. Next using Bentson wire and a quick cross catheter we successfully traversed to the totally occluded stents maintaining position within the stent lumen and true lumen of the vessel. Distal to the stent there is significant stenosis of the below-knee popliteal artery to using the quick cross catheter we exchanged for a command 18 wire and able to successfully navigate to the upper [place] vessel and traverse into the patent normal caliber tibioperoneal trunk and ultimately peroneal artery. Patient was in heparinized circulate for 3 minutes and redosed with serial ACT's. The command 18 wire then exchanged for the long filter wire over which intravascular ultrasound probe was advanced to a recorded pullback of the peroneal artery, tibioperoneal trunk artery, popliteal artery and SFA was performed. This revealed significant stent crush at the joint space as well as soft appearing intraluminal material either intimal hyperplasia or thrombus or combination thereof. So this was appropriate for thrombectomy to help minimize any potential embolization so an Dao Emboshield distal protection filter was advanced and positioned deployed in the tibioperoneal trunk. Next the InsightsOne jeti thrombectomy device was Little in position and engaged across the stent occlusion. This was unable to traverse the distal portion stent where the most stent deformity was identified on the IVUS. The device was then withdrawn and a 6 mm angioplasty balloon advanced the position and deployed to nominal at the area of stent compression. We again attempted to traverse this segment with the thrombectomized and were unable to successfully do this so no further efforts were undertaken to perform thrombec jocelyn of the distal popliteal artery. Next the lesion was angioplastied with 5 mm x 100 angio sculpt balloon inflated to nominal for multiple inflations across the length of the lesion. There is residual stenosis of the distal popliteal artery at the takeoff of the anterior tibial artery so this was angioplastied with a 4 mm x 20 angioscope balloon. Repeat angiography revealed satisfactory resolution of all of the segments of stenosis with brisk contrast transit and filling of the tibioperoneal trunk and the anterior tibial artery. The distal portion of the lesion into the tibioperoneal trunk was then angioplastied with a 4 mm x 40 drug-coated balloon inflated to nominal and then deflated withdrawn. Next a 5 mm x 200 drug-coated balloon was advanced in position with overlap with initial balloon and then inflated to nominal for 3 minutes then deflated withdrawn. Completion angiography confirmed satisfactory result with no significant residual stenosis or extravasation or dissection. This was confirmed both was contrast imaging as well as intravascular sound. Given the crush stents in the popliteal artery is felt that aligning with an Dao supera will provide better structural support and decreased stent crush and reocclusion. A 5 mm x 120 Supera was then advanced the position and deployed. Completion angiography confirmed satisfactory stent positioning with brisk cont rast transit and no significant residual stenosis. The embolic protection device was then recaptured and a Bentson wire advanced to the 6 Egyptian sheath. The 6 Egyptian sheath was then exchanged out for short 6 Egyptian sheath and a minx closure device attempted. This failed likely due to vessel calcification and manual pressure was held after which was satisfactory hemostasis was noted. Patient was then taken to the recovery room with dissipated return to the PCU for bedrest
[2022-12-12 14:06] LABS: ACT Activated Clotting Time 227 sec (74-137)
[2022-12-12 14:07] LABS: ACT Activated Clotting Time 221 sec (74-137)
[2022-12-12] MEDS: Tamsulosin HCl 0.4 MG Capsule 0.8 MG PO (16:40)
[2022-12-12 19:20] LABS: Bedside Glucose 126 mg/dL (74-106)
[2022-12-12 22:10] LABS: Bedside Glucose 93 mg/dL (74-106)
[2022-12-12] MEDS: Atorvastatin Calcium 80 MG Tablet PO (22:40)
[2022-12-12 23:16] LABS: Bedside Glucose 160 mg/dL (74-106)
[2022-12-13] VITALS (7 sets, daily range): BP systolic 92–118; BP diastolic 50–83; PULSE 82–96; RESP 16–18; TEMP 36.6–37.1; O2SAT 95–98; BMI 18.3
[2022-12-13] MEDS: Morphine 2 MG/ML Syringe IV ×4 (00:28→21:15)
[2022-12-13] MEDS: 0.9% Saline Lock 10 ML Syringe IV ×4 (00:29→21:03)
[2022-12-13] MEDS: Vancomycin IV 1,000 MG/200 ML BAG 200 MG IV (04:52)
[2022-12-13] MEDS: Insulin Lispro 100 UNIT/ML INSULN.PEN SC ×4 (06:35→21:15)
[2022-12-13 06:55] LABS: Bedside Glucose 160 mg/dL (74-106)
[2022-12-13 07:36] LABS: Absolute Neutrophil Count 7.5 X10^3/uL (2.0-7.7); Basophil# 0.04 X10^3/uL; Basophil% 0.4 % (0-1); Eosinophil# 0.11 X10^3/uL; Eosinophils% 1.2 % (0-5); Hematocrit 35.9 % (40-54); Hemoglobin 11.5 g/dL (13.0-16.5); Lymphocyte % 6.7 % (19-41); Mean Corpuscular Hgb 28.8 pg (27.0-32.0); Mean Corpuscular Volume 89.8 fL (80-94); Mean Platelet Vol. 8.9 fl (6.2-12.0); Monocyte# 0.64 X10^3/uL; Monocyte% 7.1 % (0-10); NRBC Flagged by Analyzer 0 % (0-5); Neutrophil # 7.53 X10^3/uL (2.7-7.7); Neutrophil % 83.9 % (47-70); POSITIVE DIFFERENTIAL YES; Platelet Count 279 K/mm3 (150-450); RBC Distribution Width CV 13.1 % (11.6-14.6); RBC Distribution Width SD 43.4 fl (35.1-43.9)
[2022-12-13 07:42] LABS: Differential Indicated SCAN CRITERIA MET
[2022-12-13 08:03] LABS: Anion Gap 7 (5-15); BUN 7 mg/dL (7-18); BUN/Creat Ratio 9.1 RATIO (10-20); Calcium,Total 8.5 mg/dL (8.5-10.1); Chloride 102 mmol/L (98-107); Creatinine, Serum 0.77 mg/dL (0.70-1.30); EST Glomerular Filtration Rate 103 mL/min (>60); Est Glom Filt Rate - Afr Amer 125 mL/min (>60); Estimated Creatinine Clearance 50.49 ml/min; Glucose 171 mg/dL (74-106); Potassium 3.3 mmol/L (3.5-5.1); Sodium Level 134 mmol/L (136-145)
[2022-12-13] MEDS: Acetaminophen 325 MG Tablet 650 MG PO ×2 (08:13→21:15)
--- NOTE | 2022-12-13 10:18 | PN.HOSP_ITS ---
Reason for Visit Reason for Visit: Diagnoses Type 2 diabetes mellitus with diabetic polyneuropathy (12/10/22) Type 2 diabetes mellitus with foot ulcer (12/10/22) Type 2 diabetes mellitus with other skin complications (12/10/22) Local infection of the skin and subcutaneous tissue, unspecified (12/10/22) Non-pressure chronic ulcer of other part of unspecified foot with unspecified severity (12/10/22) Non-pressure chronic ulcer of other part of left foot with fat layer exposed (12/10/22) Other acute osteomyelitis, left ankle and foot (12/10/22) Subjective Subjective Still has pain in foot but no other complaints today Objective Data Objective Data Vital Signs: Vital Signs Temp Pulse Resp BP Pulse Ox O2 Del Method 98.6 F 82 16 116/83 H 95 Room Air 12/13/22 09:06 12/13/22 09:06 12/13/22 09:06 12/13/22 09:06 12/13/22 09:06 12/13/22 09:06 Oxygen Delivery Method Room Air Weight: 59.6 kg Body Mass Index (BMI) 18.3 Intake & Output: Intake and Output for Last 24 Hours 12/11/22 12/12/22 12/13/22 23:59 23:59 23:59 Intake Total 900.00 / 900.00 937.50 / 937.50 250 / 250 Output Total 1575 / 1700 1250 / 1375 425 / 425 Balance -675.00 / -800.00 -312.50 / -437.50 -175 / -175 Lab / Micro Data Result Diagrams: 12/13/22 06:30 12/13/22 06:30 Labs: Laboratory Results - last 24 hr 12/12/22 12:10: Activated Clotting Time 227 H 12/12/22 12:45: Activated Clotting Time 221 H 12/12/22 16:40: POC Glucose 126 H 12/12/22 21:27: POC Glucose 93 12/12/22 22:42: POC Glucose 160 H 12/13/22 06:30: WBC 9.0, RBC 4.00 L, Hgb 11.5 L, Hct 35.9 L, MCV 89.8, MCH 28.8, MCHC 32.0, RDW Std Deviation 43.4, RDW Coeff of Danis 13.1, Plt Count 279, MPV 8.9, Immature Gran % (Auto) 0.700, Neut % (Auto) 83.9 H, Lymph % (Auto) 6.7 L, [place] % (Auto) 7.1, Eos % (Auto) 1.2, Baso % (Auto) 0.4, Absolute Neuts (auto) 7.5, Absolute Lymphs (auto) 0.60 L, Nucleated RBC % 0 12/13/22 06:30: Sodium 134 L, Potassium 3.3 L, Chloride 102, Carbon Dioxide 25.0, Anion Gap 7, BUN 7, Creatinine 0.77, Estim Creat Clear Calc 50.49, Est GFR (MDRD) Af Amer 125, Est GFR (MDRD) Non-Af 103, BUN/Creatinine Ratio 9.1 L, Glucose 171 H, Calcium 8.5 12/13/22 06:34: POC Glucose 160 H Micro: Microbiology 12/10/22 11:30 Wound - Left Foot Gram Stain - Final 12/10/22 11:30 Wound - Left Foot Wound Culture - Final Meth. resistant Staph. aureus Physical Exam Narrative General: Alert, oriented, no apparent distress HEENT: Atraumatic, normocephalic Eyes: Anicteric, normal conjunctiva, extraocular movements grossly intact Neck: Supple Respiratory: Clear to auscultation bilaterally, normal respiratory effort Cardiovascular: Regular rate, ejection murmur appreciated GI: Soft, nontender, nondistended Extremities: No edema, left foot wrapped, top of right foot still some spots, no drainage or erythema Musculoskeletal: Moving all extremities Neuro: No overt focal neurological deficits Skin: No rashes appreciated Psych: Cooperative Assessment & Plan Assessment/Plan (1) Type 2 diabetes mellitus with left diabetic foot infection: PLAN: Plan 1. Diabetic foot ulcer with infection/DM2/peripheral vascular disease ? It does not appear that he followed up with vascular surgery after August depending on what the MRI shows and what podiatry would like to do may need to get vascular involved ? Will continue with insulin and monitor blood sugars, hold Ozempic and metformin ? Accu-Cheks ACHS ? Continue with vancomycin and Zosyn ? We will consult podiatry for debridement ? MRI is pending -12/11: Osteomyelitis of residual first metatarsal bone seen on MRI. Discussed with podiatry and they have additionally consulted vascular. Wound care also on board. Continue antibiotics, wound culture pending -12/12: Angiogram today prior to deciding definitive surgical intervention but tentatively for Wednesday 12/13 at 8:30 AM. Wound care following. Left foot wound presently growing MRSA, will have Intra-Op cultures as well. Will likely need ID consult moving forward -12/13: Patient will go forward with surgery but surgery be performed on Friday. Wound cultures growing MRSA and Klebsiella but no deep cultures available, continue antibiotics 2. HTN/HLD/chronic diastolic CHF/A-fib/CAD status post stent ? Blood pressures are little bit low and he used to have high blood pressure but is gotten better controlled since he retired ? We will hold Eliquis and place him on therapeutic Lovenox ? We will continue with his home blood pressure medications ? Will continue Lipitor and Plavix 3. Seizure disorder ? Continue with Lamictal 4. GERD ? Stable ? Continue with PPI 5. BPH ? Stable ? Continue with his home medications DVT: Therapeutic Lovenox Time spent in the patient's overall evaluation,decision-making process, review of diagnostic data, adjustment of management, discussion with other providers, nursing nursing and ancillary staff involved in patient's care documentation, 30 minutes Charges/Coding Visit Charges Inpatient E&M: 87008 Subs Hosp L2
[2022-12-13] MEDS: Insulin Glargine-YFGN 100 UNIT/ML Pen 15 UNIT SC (10:24)
[2022-12-13] MEDS: Metoprolol Tartrate 50 MG Tablet PO (10:25)
[2022-12-13] MEDS: Potassium Chloride 10mEq/100mL 10 MEQ/100 ML IV.SOLN. 100 MEQ IV BOLUS ×2 (10:25→11:37)
[2022-12-13] MEDS: Pantoprazole Sodium 40 MG Tablet PO (10:26)
[2022-12-13] MEDS: Clopidogrel Bisulfate 75 MG Tablet PO (10:26)
[2022-12-13] MEDS: lamoTRIgine 100 MG Tablet 200 MG PO ×2 (10:26→21:20)
[2022-12-13] MEDS: Isosorbide Mononitrate 60 MG Tablet PO (10:26)
[2022-12-13] MEDS: Finasteride 5 MG Tablet PO (10:26)
[2022-12-13 12:00] LABS: Bedside Glucose 184 mg/dL (74-106)
[2022-12-13] MEDS: Glucerna Shake 120 ML LIQUID PO ×3 (13:50→21:15)
--- NOTE | 2022-12-13 14:28 | PN.SURG_ITS ---
Subjective Subjective Patient is doing well overall today. Pain limited to his foot, no issues with groin access site from angiogram. His revision TMA has been moved to Friday. Objective Data Objective Data Vital Signs: Vital Signs Temp Pulse Resp BP Pulse Ox O2 Del Method 98.6 F 82 16 116/83 H 95 Room Air 12/13/22 09:06 12/13/22 10:25 12/13/22 09:06 12/13/22 10:25 12/13/22 09:06 12/13/22 09:06 Oxygen Delivery Method Room Air Weight: 131 lb 6.328 oz Body Mass Index (BMI) 18.3 Intake & Output: Intake and Output for Last 24 Hours 12/11/22 12/12/22 12/13/22 23:59 23:59 23:59 Intake Total 900.00 / 900.00 937.50 / 937.50 500 / 500 Output Total 1575 / 1700 1250 / 1375 425 / 425 Balance -675.00 / -800.00 -312.50 / -437.50 75 / 75 Lab / Micro Data Result Diagrams: 12/13/22 06:30 12/13/22 06:30 Labs: Laboratory Results - last 24 hr 12/12/22 16:40: POC Glucose 126 H 12/12/22 21:27: POC Glucose 93 12/12/22 22:42: POC Glucose 160 H 12/13/22 06:30: WBC 9.0, RBC 4.00 L, Hgb 11.5 L, Hct 35.9 L, MCV 89.8, MCH 28.8, MCHC 32.0, RDW Std Deviation 43.4, RDW Coeff of Danis 13.1, Plt Count 279, MPV 8.9, Immature Gran % (Auto) 0.700, Neut % (Auto) 83.9 H, Lymph % (Auto) 6.7 L, [place] % (Auto) 7.1, Eos % (Auto) 1.2, Baso % (Auto) 0.4, Absolute Neuts (auto) 7.5, Absolute Lymphs (auto) 0.60 L, Nucleated RBC % 0 12/13/22 06:30: Sodium 134 L, Potassium 3.3 L, Chloride 102, Carbon Dioxide 25.0, Anion Gap 7, BUN 7, Creatinine 0.77, Estim Creat Clear Calc 50.49, Est GFR (MDRD) Af Amer 125, Est GFR (MDRD) Non-Af 103, BUN/Creatinine Ratio 9.1 L, Glucose 171 H, Calcium 8.5 12/13/22 06:34: POC Glucose 160 H 12/13/22 11:32: POC Glucose 184 H Micro: Microbiology 12/10/22 11:30 Wound - Left Foot Gram Stain - Final 12/10/22 11:30 Wound - Left Foot Wound Culture - Final Meth. resistant Staph. aureus Physical Exam Const alert, oriented x3, no apparent distress and healthy appearing General Appearance: cooperative; Negative for combative or lethargic Orientation / Consciousness: awake Exam Limitations: no limitations HEENT Head and Scalp: normocephalic and atraumatic Eyes EOMs intact bilaterally General Eye: normal appearance of both eyes Neck full ROM General: trachea midline Resp normal respiratory effort and no use of accessory muscles Effort and Inspection: Negative for labored, stridor or audible wheezes Cardio regular rate and regular rhythm Peripheral Pulses: brachial pulses present, radial pulses present and femoral pulses present; Negative for popliteal pulses present, posterior tibial pulses present or dorsalis pedis pulses present GI non-tender and non-distended; Negative for hepatosplenomegaly Back/Spine Cervical Spine: cervical ROM normal Extremity full ROM, normal capillary refill and no clubbing, cyanosis or edema Skin no rashes or lesions noted Neuro oriented x3, CN's II-XII intact bilaterally, no focal motor deficits and no s ensory deficits noted Psych thought process normal, cooperative, affect normal, speech normal and activity/motor behavior normal Assessment & Plan Assessment/Plan (1) Acute osteomyelitis of left foot: (2) Peripheral vascular occlusive disease: PLAN: Plan Patient is s/p angiogram with intervention yesterday. Angiogram revealed occlusion of prior L popliteal stents and stenosis of the below-knee popliteal artery so thrombectomy with balloon angioplasty and stent to left SFA/popliteal artery and balloon angioplasty to the left TP trunk was performed with satisfactory results. He is scheduled for revision TMA Friday. Doppler signals were stable today. R groin access site without significant bruising or swelling. No new/worsening pain in the LLE. Continue plavix. Will continue to monitor. Charges/Coding Visit Charges Inpatient E&M: 58466 Subs Hosp L2
--- NOTE | 2022-12-13 14:47 | PN_ITS ---
Subjective Subjective Patient was seen for follow up on left foot. He is resting in bed, no complaints. No complaints of f/c/n/v. Objective Data Objective Data Vital Signs: Vital Signs Temp Pulse Resp BP Pulse Ox O2 Del Method 98.6 F 82 16 116/83 H 95 Room Air 12/13/22 09:06 12/13/22 10:25 12/13/22 09:06 12/13/22 10:25 12/13/22 09:06 12/13/22 09:06 Oxygen Delivery Method Room Air Weight: 59.6 kg Body Mass Index (BMI) 18.3 Intake & Output: Intake and Output for Last 24 Hours 12/11/22 12/12/22 12/13/22 23:59 23:59 23:59 Intake Total 900.00 / 900.00 937.50 / 937.50 500 / 500 Output Total 1575 / 1700 1250 / 1375 425 / 425 Balance -675.00 / -800.00 -312.50 / -437.50 75 / 75 Lab / Micro Data Result Diagrams: 12/14/22 07:05 12/14/22 07:05 Labs: Laboratory Results - last 24 hr 12/12/22 16:40: POC Glucose 126 H 12/12/22 21:27: POC Glucose 93 12/12/22 22:42: POC Glucose 160 H 12/13/22 06:30: WBC 9.0, RBC 4.00 L, Hgb 11.5 L, Hct 35.9 L, MCV 89.8, MCH 28.8, MCHC 32.0, RDW Std Deviation 43.4, RDW Coeff of Danis 13.1, Plt Count 279, MPV 8.9, Immature Gran % (Auto) 0.700, Neut % (Auto) 83.9 H, Lymph % (Auto) 6.7 L, [place] % (Auto) 7.1, Eos % (Auto) 1.2, Baso % (Auto) 0.4, Absolute Neuts (auto) 7.5, Absolute Lymphs (auto) 0.60 L, Nucleated RBC % 0 12/13/22 06:30: Sodium 134 L, Potassium 3.3 L, Chloride 102, Carbon Dioxide 25.0, Anion Gap 7, BUN 7, Creatinine 0.77, Estim Creat Clear Calc 50.49, Est GFR (MDRD) Af Amer 125, Est GFR (MDRD) Non-Af 103, BUN/Creatinine Ratio 9.1 L, Glucose 171 H, Calcium 8.5 12/13/22 06:34: POC Glucose 160 H 12/13/22 11:32: POC Glucose 184 H Micro: Microbiology 12/10/22 11:30 Wound - Left Foot Gram Stain - Final 12/10/22 11:30 Wound - Left Foot Wound Culture - Final Meth. resistant Staph. aureus Physical Exam Narrative Left foot: Atrophic skin changes noted. TMA noted on left side. Full-thickness wound plantar medial left forefoot. Dry stable eschar to base. Improved erythema edema to periwound area. No residual purulence today. No evidence of fluctuance or crepitus. No acute ischemia. Assessment & Plan Assessment/Plan (1) Type 2 diabetes mellitus with diabetic polyneuropathy: PLAN: Exam performed. Radiographs benign. MRI demonstrates osteo to first metatarsal stump, left foot. Patient receiving IV vancomycin and Zosyn. Arterial studies demonstrated noncompressible posterior tibial pulse on the left lower extremity. PAYAL to DP is 0.86. DP PT left lower extremity monophasic. Vascular surgery on consult. Patient received vascular intervention. Continue nonweightbearing to left lower extremity. Patient can heel weight-bear in surgical shoe to the left lower extremity for transfer purposes. Dressed with Betadine DSD no compression. Planning for revisional transmetatarsal amputation, patient currently has scheduled for 12/16/2022. (2) Non-pressure chronic ulcer of other part of left foot with fat layer exposed: (3) Diabetic foot ulcer: (4) Acute osteomyelitis of left foot:
[2022-12-13 16:18] LABS: Vancomycin, Trough Level 13.5 ug/mL (5.0-15.0)
[2022-12-13 16:20] LABS: Bedside Glucose 241 mg/dL (74-106)
--- NOTE | 2022-12-13 16:37 | PCM.RX.CS ---
Consult Pharmacy has been consulted to manage selected antiobiotic: Vancomycin Type of Consult: Follow-up Prior Doses of Antibiotics Received/Current Regimen: Currently on 1gm iv q12h. Labs: Sodium 134 mmol/L (136-145) L 12/13/22 06:30 Potassium 3.3 mmol/L (3.5-5.1) L 12/13/22 06:30 Chloride 102 mmol/L (98-107) 12/13/22 06:30 Carbon Dioxide 25.0 mmol/L (21.0-32.0) 12/13/22 06:30 Anion Gap 7 (5-15) 12/13/22 06:30 BUN 7 mg/dL (7-18) 12/13/22 06:30 Creatinine 0.77 mg/dL (0.70-1.30) 12/13/22 06:30 Est GFR (MDRD) Af Amer 125 mL/min (>60) 12/13/22 06:30 Est GFR (MDRD) Non-Af 103 mL/min (>60) 12/13/22 06:30 BUN/Creatinine Ratio 9.1 RATIO (10-20) L 12/13/22 06:30 Glucose 171 mg/dL (74-106) H 12/13/22 06:30 Vancomycin Trough 13.5 ug/mL (5.0-15.0) 12/13/22 15:20 Microbiology: Microbiology 12/10/22 11:30 Wound - Left Foot Gram Stain - Final 12/10/22 11:30 Wound - Left Foot Wound Culture - Final Meth. resistant Staph. aureus Weight used for dosin.6 kg Estimated Creatinine Clearance: 50 ml/min Goal Trough: 15-20 mcg/mL Pharmacy Plan for Drug Dosing: Trough today was 13.5 and below goal of 15-20mcg/ml. Cr improved from 0.84 to 0.77. Will increase dose to 1250mg iv q12h. New trough level ordered for before 4th dose of new regimen. Pharmacy Service will continue to monitor and adjust dosing as required. Follow-Up Labs: Trough Vancomycin - 5.14.23 @0430 before 0500 dose
[2022-12-13] MEDS: Tamsulosin HCl 0.4 MG Capsule 0.8 MG PO (17:25)
[2022-12-13] MEDS: Metoprolol Tartrate 25 MG Tablet 37.5 MG PO (21:15)
[2022-12-13] MEDS: Enoxaparin 60 MG/0.6 ML Syringe SC (21:15)
[2022-12-13] MEDS: Atorvastatin Calcium 80 MG Tablet PO (21:20)
[2022-12-13 21:55] LABS: Bedside Glucose 181 mg/dL (74-106)
[2022-12-14 04:30] VITALS: BP 131/82; PULSE 95; RESP 16; TEMP 36.9; O2SAT 97
[2022-12-14] MEDS: Morphine 2 MG/ML Syringe IV ×4 (04:48→20:38)
[2022-12-14] MEDS: 0.9% Saline Lock 10 ML Syringe IV ×2 (04:49→17:25)
[2022-12-14] MEDS: Insulin Lispro 100 UNIT/ML INSULN.PEN SC ×3 (06:27→16:50)
[2022-12-14 06:50] LABS: Bedside Glucose 166 mg/dL (74-106)
--- NOTE | 2022-12-14 07:17 | PCM.PN.HOSP ---
Reason for Visit Reason for Visit: Diagnoses Type 2 diabetes mellitus with diabetic polyneuropathy (12/10/22) Type 2 diabetes mellitus with foot ulcer (12/10/22) Type 2 diabetes mellitus with other skin complications (12/10/22) Local infection of the skin and subcutaneous tissue, unspecified (12/10/22) Non-pressure chronic ulcer of other part of unspecified foot with unspecified severity (12/10/22) Non-pressure chronic ulcer of other part of left foot with fat layer exposed (12/10/22) Other acute osteomyelitis, left ankle and foot (12/10/22) Subjective Subjective No new complaints today, awaiting TMA of left foot for Friday, reports he had a big breakfast so was not hungry for lunch. Objective Data Objective Data Vital Signs: Vital Signs Temp Pulse Resp BP Pulse Ox O2 Del Method 98.4 F 95 16 131/82 H 97 Room Air 12/14/22 04:30 12/14/22 04:30 12/14/22 04:30 12/14/22 04:30 12/14/22 04:30 12/14/22 04:30 Oxygen Delivery Method Room Air Weight: 59.6 kg Body Mass Index (BMI) 18.3 Intake & Output: Intake and Output for Last 24 Hours 12/12/22 12/13/22 12/14/22 23:59 23:59 23:59 Intake Total 937.50 / 937.50 825 / 825 325 / 325 Output Total 1250 / 1375 1025 / 1025 700 / 700 Balance -312.50 / -437.50 -200 / -200 -375 / -375 Lab / Micro Data Result Diagrams: 12/14/22 07:05 12/14/22 07:05 Labs: Laboratory Results - last 24 hr 12/13/22 06:30: WBC 9.0, RBC 4.00 L, Hgb 11.5 L, Hct 35.9 L, MCV 89.8, MCH 28.8, MCHC 32.0, RDW Std Deviation 43.4, RDW Coeff of Danis 13.1, Plt Count 279, MPV 8.9, Immature Gran % (Auto) 0.700, Neut % (Auto) 83.9 H, Lymph % (Auto) 6.7 L, [place] % (Auto) 7.1, Eos % (Auto) 1.2, Baso % (Auto) 0.4, Absolute Neuts (auto) 7.5, Absolute Lymphs (auto) 0.60 L, Nucleated RBC % 0 12/13/22 06:30: Sodium 134 L, Potassium 3.3 L, Chloride 102, Carbon Dioxide 25.0, Anion Gap 7, BUN 7, Creatinine 0.77, Estim Creat Clear Calc 50.49, Est GFR (MDRD) Af Amer 125, Est GFR (MDRD) Non-Af 103, BUN/Creatinine Ratio 9.1 L, Glucose 171 H, Calcium 8.5 12/13/22 11:32: POC Glucose 184 H 12/13/22 15:20: Vancomycin Trough 13.5 12/13/22 15:56: POC Glucose 241 H 12/13/22 21:09: POC Glucose 181 H 12/14/22 06:26: POC Glucose 166 H Micro: Microbiology 12/10/22 11:30 Wound - Left Foot Gram Stain - Final 12/10/22 11:30 Wound - Left Foot Wound Culture - Final Meth. resistant Staph. aureus Physical Exam Narrative General: Alert, oriented, no apparent distress HEENT: Atraumatic, normocephalic Eyes: Anicteric, normal conjunctiva, extraocular movements grossly intact Neck: Supple Respiratory: Clear to auscultation bilaterally, normal respiratory effort Cardiovascular: Regular rate, ejection murmur appreciated GI: Soft, nontender, nondistended Extremities: No edema, left foot wrapped Musculoskeletal: Moving all extremities Neuro: No overt focal neurological deficits Skin: No rashes appreciated Psych: Cooperative Assessment & Plan Assessment/Plan (1) Type 2 diabetes mellitus with left diabetic foot infection: PLAN: Plan #Diabetic foot ulcer with infection/DM2/peripheral vascular disease/occlusion of prior left popliteal stents and stenosis of below-knee popliteal artery status post thrombectomy with balloon angioplasty and stent to left SFA/popliteal artery and balloon angioplasty to the left TP trunk 12/12/2022 ? It does not appear that he followed up with vascular surgery after August depending on what the MRI shows and what podiatry would like to do may need to get vascular involved ? Will continue with insulin and monitor blood sugars, hold Ozempic and metformin ? Accu-Cheks ACHS ? Continue with vancomycin and Zosyn ? We will consult podiatry for debridement ? MRI is pending -12/11: Osteomyelitis of residual first metatarsal bone seen on MRI. Discussed with podiatry and they have additionally consulted vascular. Wound care also on board. Continue antibiotics, wound culture pending -12/12: Angiogram today prior to deciding definitive surgical intervention but tentatively for Wednesday 12/13 at 8:30 AM. Wound care following. Left foot wound presently growing MRSA, will have Intra-Op cultures as well. Will likely need ID consult moving forward -12/13: Patient will go forward with surgery but surgery be performed on Friday. Wound cultures growing MRSA and Klebsiella but no deep cultures available, continue antibiotics -12/14: Hold date placed for Lovenox after a.m. dose tomorrow. Continue broad-spectrum antibiotics. TMA Friday. Will likely need ID consult, given his that again this can be done on Friday #peripheral vascular disease/occlusion of prior left popliteal stents and stenosis of below-knee popliteal artery status post thrombectomy with balloon angioplasty and stent to left SFA/popliteal artery and balloon angioplasty to the left TP trunk 12/12/2022 -as above #HTN/HLD/chronic diastolic CHF/A-fib/CAD status post stent ? Blood pressures are little bit low and he used to have high blood pressure but is gotten better controlled since he retired ? We will hold Eliquis and place him on therapeutic Lovenox ? We will continue with his home blood pressure medications ? Will continue Lipitor and Plavix -12/14: Does have fairly loud systolic murmur primarily at the upper left sternal border, did appear to have mild to moderate aortic stenosis, ordered echocardiogram to better evaluate #Seizure disorder ? Continue with Lamictal #GERD ? Stable ? Continue with PPI #BPH ? Stable ? Continue with his home medications DVT: Therapeutic Lovenox Time spent in the patient's overall evaluation,decision-making process, review of diagnostic data, adjustment of management, discussion with other providers, nursing nursing and ancillary staff involved in patient's care documentation, 30 minutes Charges/Coding Visit Charges Inpatient E&M: 80337 Subs Hosp L2
[2022-12-14 07:46] LABS: Absolute Lymphocyte Count 0.68 X10^3/uL (0.83-4.51); Absolute Neutrophil Count 7.7 X10^3/uL (2.0-7.7); Basophil# 0.03 X10^3/uL; Basophil% 0.3 % (0-1); Eosinophils% 1.1 % (0-5); Hematocrit 35.6 % (40-54); Hemoglobin 11.5 g/dL (13.0-16.5); Lymphocyte # 0.68 X10^3/ul (0.83-4.51); Lymphocyte % 7.4 % (19-41); Mean Corp Hgb Conc 32.3 g/dL (32-36); Mean Corpuscular Hgb 28.8 pg (27.0-32.0); Mean Platelet Vol. 8.7 fl (6.2-12.0); Monocyte# 0.61 X10^3/uL; Monocyte% 6.7 % (0-10); NRBC Flagged by Analyzer 0 % (0-5); Neutrophil # 7.68 X10^3/uL (2.7-7.7); Neutrophil % 83.7 % (47-70); Platelet Count 262 K/mm3 (150-450); RBC Distribution Width CV 13.2 % (11.6-14.6); RBC Distribution Width SD 43.2 fl (35.1-43.9); White Blood Count 9.2 K/mm3 (4.4-11.0)
[2022-12-14 08:24] LABS: Anion Gap 6 (5-15); BUN 9 mg/dL (7-18); BUN/Creat Ratio 12.2 RATIO (10-20); Calcium,Total 8.4 mg/dL (8.5-10.1); Chloride 106 mmol/L (98-107); Creatinine, Serum 0.74 mg/dL (0.70-1.30); EST Glomerular Filtration Rate 109 mL/min (>60); Est Glom Filt Rate - Afr Amer 132 mL/min (>60); Estimated Creatinine Clearance 50.49 ml/min; Glucose 151 mg/dL (74-106); Potassium 3.4 mmol/L (3.5-5.1); Sodium Level 137 mmol/L (136-145)
[2022-12-14] MEDS: Insulin Glargine-YFGN 100 UNIT/ML Pen 15 UNIT SC (09:12)
[2022-12-14] MEDS: lamoTRIgine 100 MG Tablet 200 MG PO ×2 (09:13→21:07)
[2022-12-14] MEDS: Pantoprazole Sodium 40 MG Tablet PO (09:13)
[2022-12-14] MEDS: Clopidogrel Bisulfate 75 MG Tablet PO (09:13)
[2022-12-14] MEDS: Isosorbide Mononitrate 30 MG Tablet PO (09:13)
[2022-12-14] MEDS: Finasteride 5 MG Tablet PO (09:13)
[2022-12-14] MEDS: Enoxaparin 60 MG/0.6 ML Syringe SC ×2 (09:13→21:06)
[2022-12-14 09:14] VITALS: PULSE 97
[2022-12-14] MEDS: Metoprolol Tartrate 25 MG Tablet 37.5 MG PO ×2 (09:14→21:07)
[2022-12-14] MEDS: Acetaminophen 325 MG Tablet 650 MG PO ×2 (09:22→17:24)
[2022-12-14 10:00] VITALS: BP 106/60; PULSE 97; RESP 18; TEMP 36.9; O2SAT 97
[2022-12-14] MEDS: Potassium Chloride Oral Tablet 20 MEQ 40 MEQ PO (11:49)
[2022-12-14 12:15] LABS: Bedside Glucose 211 mg/dL (74-106)
[2022-12-14] MEDS: Glucerna Shake 120 ML LIQUID PO ×3 (14:42→20:58)
[2022-12-14 14:47] VITALS: BP 137/89; PULSE 95; RESP 18; TEMP 36.8; O2SAT 96
--- NOTE | 2022-12-14 15:33 | ECHOD_ITS ---
Reason For Study: Murmur Procedure This was a 2D Doppler, Color Flow transthoracic echocardiogram. Exam performed portable in patient room. Left Ventricle Normal LV size. Apical false tendon noted. Mild eccentric left ventricular hypertrophy. Left ventricular systolic function is normal. The estimated ejection fraction is 53 %. No regional wall motion abnormalities noted. Atria The left atrium is moderately enlarged. The right atrium is mildly enlarged. Mitral Valve There is mild to moderate mitral annular calcification. Tricuspid Valve Normal tricuspid valve. Mild to moderate (1-2+) tricuspid valve insufficiency. Pulmonary artery systolic pressure is 44 mmHg. Aortic Valve Trisinus/trileaflet aortic valve. Moderate focal aortic valve calcification. Peak aortic valve gradient 42 mmHg. Mean aortic valve gradient 22 mmHg. Moderate aortic stenosis. Pulmonic Valve Normal pulmonic valve. Great Vessels Normal aortic root. The pulmonary artery is normal size. Normal inferior vena cava. Pericardium/Pleural Trivial pericardial effusion. MMode/2D Measurements & Calculations LVIDd: 4.7 cm IVSd: 1.1 cm LVOT diam: 2.1 cm LVIDs: 3.7 cm LVPWd: 1.3 cm LVOT area: 3.6 cm2 RVDd: 4.0 cm FS: 21.2 % ACS: 0.64 cm LAV(MOD-bp): 103.8 ml LA A4 area: 26.4 cm2 LA dimension: 4.8 cm LAV(MOD-bp) Indexed: 59.5 ml/m2 LAV(MOD-sp2): 102.8 ml LAV(MOD-sp4): 92.7 ml RA A4 area: 22.0 cm2 Doppler Measurements & Calculations MV E max luis carlos: 137.6 cm/sec MV V2 max: 139.8 cm/sec Ao V2 max: 322.1 cm/sec MV max P.8 mmHg Ao max P.6 mmHg MV V2 mean: 70.9 cm/sec Ao V2 mean: 215.6 cm/sec MV mean P.7 mmHg Ao mean P.5 mmHg MV V2 VTI: 24.8 cm Ao V2 VTI: 69.9 cm MVA(VTI): 2.2 cm2 AV (velocity ratio): 0.22 KAVON(I,D): 0.80 cm2 KAVON(V,D): 0.80 cm2 LV V1 max: 72.3 cm/sec MR max luis carlos: 446.9 cm/sec SV(LVOT): 55.6 ml LV V1 max P.1 mmHg MR max P.9 mmHg LV V1 mean P.3 mmHg LV V1 mean: 53.6 cm/sec LV V1 VTI: 15.6 cm PA V2 max: 66.1 cm/sec TR max luis carlos: 314.8 cm/sec TR max P.7 mmHg ECHO/Echo Complete Interpretation Summary Normal LV size. Left ventricular systolic function is normal. Mild eccentric left ventricular hypertrophy. Mean aortic valve gradient 22 mmHg. Moderate aortic stenosis. Pulmonary artery systolic pressure is 44 mmHg. Ordering Physician: Dary Mcmullen Referring Physician: Jerry Dee Performed By: Emerson Turner RCS
[2022-12-14] MEDS: Tamsulosin HCl 0.4 MG Capsule 0.8 MG PO (16:51)
[2022-12-14 17:15] LABS: Bedside Glucose 163 mg/dL (74-106)
[2022-12-14 20:35] VITALS: BP 124/84; PULSE 95; RESP 16; TEMP 36.7; O2SAT 98
[2022-12-14 21:05] LABS: Bedside Glucose 109 mg/dL (74-106)
[2022-12-14 21:07] VITALS: BP 124/84; PULSE 95
[2022-12-14] MEDS: Atorvastatin Calcium 80 MG Tablet PO (21:07)
[2022-12-15] VITALS (7 sets, daily range): BP systolic 135–154; BP diastolic 83–105; PULSE 83–101; RESP 16–18; TEMP 36.2–36.4; O2SAT 96–100
[2022-12-15] MEDS: Acetaminophen 325 MG Tablet 650 MG PO ×4 (02:21→23:10)
[2022-12-15] MEDS: Morphine 2 MG/ML Syringe IV ×7 (02:21→23:10)
[2022-12-15 04:03] LABS: Absolute Lymphocyte Count 0.68 X10^3/uL (0.83-4.51); Absolute Neutrophil Count 7.6 X10^3/uL (2.0-7.7); Basophil# 0.04 X10^3/uL; Basophil% 0.4 % (0-1); Eosinophil# 0.16 X10^3/uL; Eosinophils% 1.8 % (0-5); Hematocrit 35.6 % (40-54); Hemoglobin 11.2 g/dL (13.0-16.5); Lymphocyte # 0.68 X10^3/ul (0.83-4.51); Lymphocyte % 7.5 % (19-41); Mean Corp Hgb Conc 31.5 g/dL (32-36); Mean Corpuscular Hgb 28.7 pg (27.0-32.0); Mean Corpuscular Volume 91.3 fL (80-94); Mean Platelet Vol. 8.6 fl (6.2-12.0); Monocyte# 0.56 X10^3/uL; Monocyte% 6.1 % (0-10); NRBC Flagged by Analyzer 0 % (0-5); Neutrophil # 7.61 X10^3/uL (2.7-7.7); Neutrophil % 83.5 % (47-70); Platelet Count 249 K/mm3 (150-450); RBC Distribution Width CV 13.4 % (11.6-14.6); RBC Distribution Width SD 45.7 fl (35.1-43.9); White Blood Count 9.1 K/mm3 (4.4-11.0)
[2022-12-15 04:33] LABS: Anion Gap 4 (5-15); BUN 12 mg/dL (7-18); BUN/Creat Ratio 14.8 RATIO (10-20); Calcium,Total 8.2 mg/dL (8.5-10.1); Chloride 107 mmol/L (98-107); Creatinine, Serum 0.81 mg/dL (0.70-1.30); EST Glomerular Filtration Rate 98 mL/min (>60); Est Glom Filt Rate - Afr Amer 118 mL/min (>60); Estimated Creatinine Clearance 62.34 ml/min; Glucose 147 mg/dL (74-106); Potassium 3.6 mmol/L (3.5-5.1); Sodium Level 137 mmol/L (136-145)
[2022-12-15 04:35] LABS: Vancomycin, Trough Level 19.7 ug/mL (5.0-15.0)
--- NOTE | 2022-12-15 05:05 | PCM.RX.CS ---
Consult Type of Consult: Follow-up Suspected Infection: Skin/Soft tissue Labs: Sodium 137 mmol/L (136-145) 12/15/22 04:00 Potassium 3.6 mmol/L (3.5-5.1) 12/15/22 04:00 Chloride 107 mmol/L (98-107) 12/15/22 04:00 Carbon Dioxide 26.0 mmol/L (21.0-32.0) 12/15/22 04:00 Anion Gap 4 (5-15) L 12/15/22 04:00 BUN 12 mg/dL (7-18) 12/15/22 04:00 Creatinine 0.81 mg/dL (0.70-1.30) 12/15/22 04:00 Est GFR (MDRD) Af Amer 118 mL/min (>60) 12/15/22 04:00 Est GFR (MDRD) Non-Af 98 mL/min (>60) 12/15/22 04:00 BUN/Creatinine Ratio 14.8 RATIO (10-20) 12/15/22 04:00 Glucose 147 mg/dL (74-106) H 12/15/22 04:00 Vancomycin Trough 19.7 ug/mL (5.0-15.0) H 12/15/22 04:00 Microbiology: Microbiology 12/10/22 11:30 Wound - Left Foot Gram Stain - Final 12/10/22 11:30 Wound - Left Foot Wound Culture - Final Meth. resistant Staph. aureus Goal Trough: 15-20 mcg/mL Pharmacy Plan for Drug Dosing: VANCOMYCIN LEVEL RECEIVED Current Vancomycin Dose: 1250mg Q12H Number of Doses Received: 1250mg x3 Vancomycin Level: 19.7 Hours Since Last Dose: 10.75 Renal Function: sCr 0.81 Renal Function Trend: stable Vancomycin Plan/Comments: Adjust Vancomycin dosing regimen to 1000mg Q12H, to start at 1700 12/15/22, as next 1250mg has already be administered while lab pending Pending Level: Vancomycin trough @ 0430 12/17/22 Pharmacy Service will continue to monitor and adjust dosing as required. Labs to be done on [date and time ordered]: Vancomycin trough @ 0430 12/17/22
[2022-12-15] MEDS: 0.9% Saline Lock 10 ML Syringe IV ×4 (05:23→20:07)
--- NOTE | 2022-12-15 08:14 | PN.HOSP_ITS ---
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 with unspecified severity (12/10/22) Non-pressure chronic ulcer of other part of left foot with fat layer exposed (12/10/22) Other acute osteomyelitis, left ankle and foot (12/10/22) Subjective Subjective No new complaints, awaiting TMA surgery tomorrow Objective Data Objective Data Vital Signs: Vital Signs Temp Pulse Resp BP Pulse Ox O2 Del Method 97.6 F L 83 16 139/83 H 96 Room Air 12/15/22 02:17 12/15/22 02:17 12/15/22 02:17 12/15/22 02:17 12/15/22 02:17 12/15/22 02:17 Oxygen Delivery Method Room Air Weight: 59.6 kg Body Mass Index (BMI) 18.3 Intake & Output: Intake and Output for Last 24 Hours 12/13/22 12/14/22 12/15/22 23:59 23:59 23:59 Intake Total 825 / 825 950 / 950 625 / 625 Output Total 1025 / 1025 2049 / 2049 475 / 475 Balance -200 / -200 -1100 / -1100 150 / 150 Lab / Micro Data Result Diagrams: 12/15/22 04:00 12/15/22 04:00 Labs: Laboratory Results - last 24 hr 12/14/22 07:05: Sodium 137, Potassium 3.4 L, Chloride 106, Carbon Dioxide 25.0, Anion Gap 6, BUN 9, Creatinine 0.74, Estim Creat Clear Calc 50.49, Est GFR (MDRD) Af Amer 132, Est GFR (MDRD) Non-Af 109, BUN/Creatinine Ratio 12.2, Glucose 151 H, Calcium 8.4 L 12/14/22 11:51: POC Glucose 211 H 12/14/22 16:48: POC Glucose 163 H 12/14/22 20:47: POC Glucose 109 H 12/15/22 04:00: WBC 9.1, RBC 3.90 L, Hgb 11.2 L, Hct 35.6 L, MCV 91.3, MCH 28.7, MCHC 31.5 L, RDW Std Deviation 45.7 H, RDW Coeff of Danis 13.4, Plt Count 249, MPV 8.6, Immature Gran % (Auto) 0.700, Neut % (Auto) 83.5 H, Lymph % (Auto) 7.5 L, [place] % (Auto) 6.1, Eos % (Auto) 1.8, Baso % (Auto) 0.4, Absolute Neuts (auto) 7.6, Absolute Lymphs (auto) 0.68 L, Nucleated RBC % 0 12/15/22 04:00: Sodium 137, Potassium 3.6, Chloride 107, Carbon Dioxide 26.0, Anion Gap 4 L, BUN 12, Creatinine 0.81, Estim Creat Clear Calc 62.34, Est GFR (MDRD) Af Amer 118, Est GFR (MDRD) Non-Af 98, BUN/Creatinine Ratio 14.8, Glucose 147 H, Calcium 8.2 L 12/15/22 04:00: Vancomycin Trough 19.7 H Micro: Microbiology 12/10/22 11:30 Wound - Left Foot Gram Stain - Final 12/10/22 11:30 Wound - Left Foot Wound Culture - Final Meth. resistant Staph. aureus Physical Exam Narrative General: Alert, oriented, no apparent distress HEENT: Atraumatic, normocephalic Eyes: Anicteric, normal conjunctiva, extraocular movements grossly intact Neck: Supple Respiratory: Clear to auscultation bilaterally, normal respiratory effort Cardiovascular: Regular rate, ejection murmur appreciated GI: Soft, nontender, nondistended Extremities: No edema, left foot wrapped Musculoskeletal: Moving all extremities Neuro: No overt focal neurological deficits Skin: No rashes appreciated Psych: Cooperative Assessment & Plan Assessment/Plan (1) Type 2 diabetes mellitus with left diabetic foot infection: PLAN: Plan #Diabetic foot ulcer with infection/DM2/peripheral vascular disease/occlusion of prior left popliteal stents and stenosis of below-knee popliteal artery status post thrombectomy with balloon angioplasty and stent to left SFA/popliteal artery and balloon angioplasty to the left TP trunk 12/12/2022 ? It does not appear that he followed up with vascular surgery after August depending on what the MRI shows and what podiatry would like to do may need to get vascular involved ? Will continue with insulin and monitor blood sugars, hold Ozempic and metformin ? Accu-Cheks ACHS ? Continue with vancomycin and Zosyn ? We will consult podiatry for debridement ? MRI is pending -12/11: Osteomyelitis of residual first metatarsal bone seen on MRI. Discussed with podiatry and they have additionally consulted vascular. Wound care also on board. Continue antibiotics, wound culture pending -12/12: Angiogram today prior to deciding definitive surgical intervention but tentatively for Wednesday 12/13 at 8:30 AM. Wound care following. Left foot wound presently growing MRSA, will have Intra-Op cultures as well. Will likely need ID consult moving forward -12/13: Patient will go forward with surgery but surgery be performed on Friday. Wound cultures growing MRSA and Klebsiella but no deep cultures available, continue antibiotics -12/14: Hold date placed for Lovenox after a.m. dose tomorrow. Continue broad- spectrum antibiotics. TMA Friday. Will likely need ID consult, current antib iotics covering what grew from prelim cultures, consult can likely be placed Friday if applicable -12/15: Hold placed for Lovenox after a.m. dose, TMA with podiatry Friday, placed n.p.o. at midnight. Will likely need ID consult, current antibiotics covering what grew from prelim cultures, consult can likely be placed Friday if applicable #peripheral vascular disease/occlusion of prior left popliteal stents and stenosis of below-knee popliteal artery status post thrombectomy with balloon angioplasty and stent to left SFA/popliteal artery and balloon angioplasty to the left TP trunk 12/12/2022 -as above #HTN/HLD/chronic diastolic CHF/A-fib/CAD status post stent ? Blood pressures are little bit low and he used to have high blood pressure but is gotten better controlled since he retired ? We will hold Eliquis and place him on therapeutic Lovenox ? We will continue with his home blood pressure medications ? Will continue Lipitor and Plavix -12/14: Does have fairly loud systolic murmur primarily at the upper left sternal border, did appear to have mild to moderate aortic stenosis, ordered e chocardiogram to better evaluate -12/15: Echo ordered given murmur, this does not need to delay surgery as patient is otherwise stable #Seizure disorder ? Continue with Lamictal #GERD ? Stable ? Continue with PPI #BPH ? Stable ? Continue with his home medications DVT: Therapeutic Lovenox, holding lovenox after AM dose, can use scds tonight and until surgery/post surgery until cleared for AC by podiatry Time spent in the patient's overall evaluation,decision-making process, review of diagnostic data, adjustment of management, discussion with other providers, nursing nursing and ancillary staff involved in patient's care documentation, 30 minutes Charges/Coding Visit Charges Inpatient E&M: 87032 Subs Hosp L2
--- NOTE | 2022-12-15 08:17 | NURSING ---
Blood sugar is 147 from glucose serum on lab results.
[2022-12-15] MEDS: Glucerna Shake 120 ML LIQUID PO ×4 (08:18→23:11)
[2022-12-15] MEDS: Metoprolol Tartrate 25 MG Tablet 37.5 MG PO ×2 (08:19→22:49)
[2022-12-15] MEDS: Finasteride 5 MG Tablet PO (08:20)
[2022-12-15] MEDS: Pantoprazole Sodium 40 MG Tablet PO (08:21)
[2022-12-15] MEDS: lamoTRIgine 100 MG Tablet 200 MG PO ×2 (08:21→22:49)
[2022-12-15] MEDS: Clopidogrel Bisulfate 75 MG Tablet PO (08:22)
[2022-12-15] MEDS: Enoxaparin 60 MG/0.6 ML Syringe SC (08:22)
[2022-12-15] MEDS: Isosorbide Mononitrate 30 MG Tablet PO (08:23)
[2022-12-15] MEDS: Insulin Glargine-YFGN 100 UNIT/ML Pen 15 UNIT SC (08:29)
[2022-12-15] MEDS: Insulin Lispro 100 UNIT/ML INSULN.PEN SC ×2 (08:30→22:55)
--- NOTE | 2022-12-15 11:45 | RAD_ITS ---
INDICATION: REVISIONAL TRANSMETATARSAL AMPUTATION OF FOOT EXAMINATION/TECHNIQUE: X-RAY - LEFT XR Foot 1 View 3 VIEWS COMPARISON: December 10, 2022 FINDINGS: SOFT TISSUES: No soft tissue swelling or gas. No radiopaque foreign body. BONES/JOINTS: Interval amputation just beyond the bases of the metatarsals. Air is seen in the soft tissues adjacent to the base of the first metatarsal likely due to patient''s postoperative status. Correlation advised. RAD/Foot min 3 Views IMPRESSION: Mid foot amputation intraoperative image as above. Electronically Signed: Felipe Contreras MD, BEN at 17:42 EDT ,
[2022-12-15 12:40] LABS: Bedside Glucose 149 mg/dL (74-106)
[2022-12-15] MEDS: Vancomycin IV 1,000 MG/200 ML BAG 200 MG IV (16:45)
[2022-12-15] MEDS: Tamsulosin HCl 0.4 MG Capsule 0.8 MG PO (16:49)
--- NOTE | 2022-12-15 16:50 | PN_ITS ---
Subjective Subjective Patient was seen today for follow up on left foot. No new complaints. He is resting in bed. No f/c/n/v. Objective Data Objective Data Vital Signs: Vital Signs Temp Pulse Resp BP Pulse Ox O2 Del Method 97.1 F L 90 18 154/105 H 100 Room Air 12/15/22 15:26 12/15/22 15:26 12/15/22 15:26 12/15/22 15:26 12/15/22 15:26 12/15/22 15:26 Oxygen Delivery Method Room Air Weight: 59.6 kg Body Mass Index (BMI) 18.3 Intake & Output: Intake and Output for Last 24 Hours 12/13/22 12/14/22 12/15/22 23:59 23:59 23:59 Intake Total 825 / 825 950 / 950 1285 / 1285 Output Total 1025 / 1025 2049 / 2049 875 / 875 Balance -200 / -200 -1100 / -1100 410 / 410 Medical Nutrition Assessment Dietitian: Malnutrition Criteria Met Start: 12/11/22 14:40 Freq: Status: Active Protocol: Document 12/15/22 10:43 AG (Rec: 12/15/22 10:43 AG [id number]) Nutrition Malnutrition Evidence of Malnutrition Exists Yes Malnutrition (severe): Chronic Evidenced By Suboptimal Energy Intake ( Severe),Weight Loss (Severe), Physical Changes (Moderate) Clinical Problem Chronic Disease or Condition Related Malnutrition Etiology chronic, severe malnutrition related to inadequate energy intake Signs/Symptoms as evidenced by reported decreased appetite w/ estimated PO intake meeting < 75% > 3 months; unintentional wt loss of 48.6#/27% x 1 year; obvious muscle wasting/fat loss evident in orbital, clavicle, acromion, and temporal areas; BMI 18.3 Status Active Problem Recommendation Dietitian Recommendations/Changes continue 1999 calorie controlled, consistent CHO diet, 120mL glucerna 4x/day and Oziel BID Lab / Micro Data Result Diagrams: 12/15/22 04:00 12/15/22 04:00 Labs: Laboratory Results - last 24 hr 12/14/22 16:48: POC Glucose 163 H 12/14/22 20:47: POC Glucose 109 H 12/15/22 04:00: WBC 9.1, RBC 3.90 L, Hgb 11.2 L, Hct 35.6 L, MCV 91.3, MCH 28.7, MCHC 31.5 L, RDW Std Deviation 45.7 H, RDW Coeff of Danis 13.4, Plt Count 249, MPV 8.6, Immature Gran % (Auto) 0.700, Neut % (Auto) 83.5 H, Lymph % (Auto) 7.5 L, [place] % (Auto) 6.1, Eos % (Auto) 1.8, Baso % (Auto) 0.4, Absolute Neuts (auto) 7.6, Absolute Lymphs (auto) 0.68 L, Nucleated RBC % 0 12/15/22 04:00: Sodium 137, Potassium 3.6, Chloride 107, Carbon Dioxide 26.0, Anion Gap 4 L, BUN 12, Creatinine 0.81, Estim Creat Clear Calc 62.34, Est GFR (MDRD) Af Amer 118, Est GFR (MDRD) Non-Af 98, BUN/Creatinine Ratio 14.8, Glucose 147 H, Calcium 8.2 L 12/15/22 04:00: Vancomycin Trough 19.7 H 12/15/22 11:55: POC Glucose 149 H Micro: Microbiology 12/10/22 11:30 Wound - Left Foot Gram Stain - Final 12/10/22 11:30 Wound - Left Foot Wound Culture - Final Meth. resistant Staph. aureus Physical Exam Narrative Left foot: Atrophic skin changes noted. TMA noted on left side. Full-thickness wound plantar medial left forefoot. Dry stable eschar to base. Improved erythema edema to periwound area. No residual purulence today. No evidence of fluctuance or crepitus. No acute ischemia. Assessment & Plan Assessment/Plan (1) Type 2 diabetes mellitus with diabetic polyneuropathy: PLAN: Exam performed. Radiographs benign. MRI demonstrates osteo to first metatarsal stump, left foot. Patient receiving IV vancomycin and Zosyn. Arterial studies demonstrated noncompressible posterior tibial pulse on the left lower extremity. PAYAL to DP is 0.86. DP PT left lower extremity monophasic. Vascular surgery on consult. Patient received vascular intervention. Continue nonweightbearing to left lower extremity. Patient can heel weight-bear in surgical shoe to the left lower extremity for transfer purposes. Dressed with Betadine DSD no compression. Planning for revisional transmetatarsal amputation, patient currently has scheduled for 12/16/2022. (2) Non-pressure chronic ulcer of other part of left foot with fat layer exposed: (3) Diabetic foot ulcer: (4) Acute osteomyelitis of left foot:
[2022-12-15 18:36] LABS: Bedside Glucose 130 mg/dL (74-106)
[2022-12-15] MEDS: Atorvastatin Calcium 80 MG Tablet PO (22:50)
[2022-12-15 23:16] LABS: Bedside Glucose 156 mg/dL (74-106)
[2022-12-16] VITALS (11 sets, daily range): BP systolic 114–160; BP diastolic 68–92; PULSE 86–113; RESP 16–18; TEMP 36.3–37.1; O2SAT 93–98; BMI 18.3
[2022-12-16] MEDS: Vancomycin IV 1,000 MG/200 ML BAG 200 MG IV ×2 (04:30→16:47)
[2022-12-16] MEDS: 0.9% Saline Lock 10 ML Syringe IV ×2 (04:36→16:47)
[2022-12-16] MEDS: Morphine 2 MG/ML Syringe IV (04:36)
[2022-12-16] MEDS: Acetaminophen 325 MG Tablet 650 MG PO (05:57)
--- NOTE | 2022-12-16 06:00 | EKG12_ITS ---
Test Reason : PRE-OP Blood Pressure : / mmHG Vent. Rate : 092 BPM Atrial Rate : 208 BPM P-R Int : 000 ms QRS Dur : 100 ms QT Int : 330 ms P-R-T Axes : 000 -44 -03 degrees QTc Int : 408 ms Atrial fibrillation Left axis deviation Inferior infarct (cited on or before 19-MAY-2019) Anteroseptal infarct (cited on or before 11-MAY-2020) Abnormal ECG Confirmed by ANA NG, LAUREN ([id number]), primer expeditor and drier SANDY GOMES ([id number]) on 12/17/2022 9:53:57 AM Referred By: JESSENIA Confirmed By:LAUREN PEREZ MD
[2022-12-16 06:14] LABS: Absolute Lymphocyte Count 0.82 X10^3/uL (0.83-4.51); Absolute Neutrophil Count 7.8 X10^3/uL (2.0-7.7); Basophil# 0.03 X10^3/uL; Basophil% 0.3 % (0-1); Eosinophil# 0.17 X10^3/uL; Eosinophils% 1.8 % (0-5); Hematocrit 35.1 % (40-54); Hemoglobin 11.4 g/dL (13.0-16.5); Lymphocyte # 0.82 X10^3/ul (0.83-4.51); Lymphocyte % 8.6 % (19-41); Mean Corp Hgb Conc 32.5 g/dL (32-36); Mean Corpuscular Hgb 29.1 pg (27.0-32.0); Mean Corpuscular Volume 89.5 fL (80-94); Mean Platelet Vol. 8.7 fl (6.2-12.0); Monocyte# 0.67 X10^3/uL; Monocyte% 7.1 % (0-10); NRBC Flagged by Analyzer 0 % (0-5); Neutrophil # 7.77 X10^3/uL (2.7-7.7); Neutrophil % 81.9 % (47-70); Platelet Count 265 K/mm3 (150-450); RBC Distribution Width CV 13.4 % (11.6-14.6); RBC Distribution Width SD 44.1 fl (35.1-43.9); Red Blood Count 3.92 M/mm3 (4.6-6.2); White Blood Count 9.5 K/mm3 (4.4-11.0)
[2022-12-16 06:31] LABS: International Normalized Ratio 1.2; Partial Thromboplast Time 45.3 Seconds (24.1-36.2); Prothrombin Time (Protime)PT. 15.4 SECONDS (11.7-14.9)
[2022-12-16 07:02] LABS: Anion Gap 7 (5-15); BUN 11 mg/dL (7-18); Calcium,Total 8.5 mg/dL (8.5-10.1); Chloride 105 mmol/L (98-107); Creatinine, Serum 0.79 mg/dL (0.70-1.30); EST Glomerular Filtration Rate 101 mL/min (>60); Est Glom Filt Rate - Afr Amer 122 mL/min (>60); Estimated Creatinine Clearance 50.49 ml/min; Glucose 134 mg/dL (74-106); Potassium 3.6 mmol/L (3.5-5.1); Sodium Level 138 mmol/L (136-145)
--- NOTE | 2022-12-16 07:34 | WOUNDNOTE ---
Pt is scheduled for surgery later today. will leave dressing intact to the left foot.
--- NOTE | 2022-12-16 07:41 | NURSING ---
Cherise in echo informed of OR time requesting echo be done christoph
--- NOTE | 2022-12-16 07:43 | PN.HOSP_ITS ---
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 with unspecified severity (12/10/22) Non-pressure chronic ulcer of other part of left foot with fat layer exposed (12/10/22) Other acute osteomyelitis, left ankle and foot (12/10/22) Subjective Subjective No events overnight. Objective Data Objective Data Vital Signs: Vital Signs Temp Pulse Resp BP Pulse Ox O2 Del Method 36.9 C 91 16 144/84 H 94 Room Air 12/16/22 04:26 12/16/22 04:26 12/16/22 04:26 12/16/22 04:26 12/16/22 04:26 12/16/22 04:26 Oxygen Delivery Method Room Air Weight: 59.6 kg Body Mass Index (BMI) 18.3 Intake & Output: Intake and Output for Last 24 Hours 12/14/22 12/15/22 12/16/22 23:59 23:59 23:59 Intake Total 950 / 950 2295.25 / 2295.25 250 / 250 Output Total 2049 / 2049 1925 / 1925 600 / 600 Balance -1100 / -1100 370.25 / 370.25 -350 / -350 Medical Nutrition Assessment Dietitian: Malnutrition Criteria Met Start: 12/11/22 14:40 Freq: Status: Active Protocol: Document 12/15/22 10:43 AG (Rec: 12/15/22 10:43 [id number]) Nutrition Malnutrition Evidence of Malnutrition Exists Yes Malnutrition (severe): Chronic Evidenced By Suboptimal Energy Intake ( Severe),Weight Loss (Severe), Physical Changes (Moderate) Clinical Problem Chronic Disease or Condition Related Malnutrition Etiology chronic, severe malnutrition related to inadequate energy intake Signs/Symptoms as evidenced by reported decreased appetite w/ estimated PO intake meeting < 75% > 3 months; unintentional wt loss of 48.6#/27% x 1 year; obvious muscle wasting/fat loss evident in orbital, clavicle, acromion, and temporal areas; BMI 18.3 Status Active Problem Recommendation Dietitian Recommendations/Changes continue 1999 calorie controlled, consistent CHO diet, 120mL glucerna 4x/day and Oziel BID Lab / Micro Data Result Diagrams: 12/16/22 06:06 12/16/22 06:06 Labs: Laboratory Results - last 24 hr 12/15/22 11:55: POC Glucose 149 H 12/15/22 16:44: POC Glucose 130 H 12/15/22 22:54: POC Glucose 156 H 12/16/22 06:06: WBC 9.5, RBC 3.92 L, Hgb 11.4 L, Hct 35.1 L, MCV 89.5, MCH 29.1, MCHC 32.5, RDW Std Deviation 44.1 H, RDW Coeff of Danis 13.4, Plt Count 265, MPV 8.7, Immature Gran % (Auto) 0.300, Neut % (Auto) 81.9 H, Lymph % (Auto) 8.6 L, [place] % (Auto) 7.1, Eos % (Auto) 1.8, Baso % (Auto) 0.3, Absolute Neuts (auto) 7.8 H, Absolute Lymphs (auto) 0.82 L, Nucleated RBC % 0 12/16/22 06:06: Sodium 138, Potassium 3.6, Chloride 105, Carbon Dioxide 26.0, Anion Gap 7, BUN 11, Creatinine 0.79, Estim Creat Clear Calc 50.49, Est GFR (MDRD) Af Amer 122, Est GFR (MDRD) Non-Af 101, BUN/Creatinine Ratio 14.0, Glucose 134 H, Calcium 8.5 12/16/22 06:06: PT 15.4 H, INR 1.2 12/16/22 06:06: APTT 45.3 H 12/16/22 06:06: Hemoglobin A1c 8.0 H Micro: Microbiology 12/10/22 11:30 Wound - Left Foot Gram Stain - Final 12/10/22 11:30 Wound - Left Foot Wound Culture - Final Meth. resistant Staph. aureus Physical Exam Const alert and no apparent distress HEENT head/scalp atraumatic and moist oral mucous membranes Resp normal respiratory effort, no retractions, no use of accessory muscles and clear to auscultation bilaterally Cardio regular rate, regular rhythm, S1 normal heart sound and S2 normal heart sound GI normal to inspection, nondistended, normoactive bowel sounds, soft to palpation, non-tender and non-distended Extremity Extremity Narrative: left foot wrapped, did not remove. Reviewed image taken from the showed a large ulceration on the plantar aspects of the medial left foot. Assessment & Plan Assessment/Plan (1) Type 2 diabetes mellitus with left diabetic foot infection: PLAN: Diabetic foot ulcer with infection/DM2/peripheral vascular disease/occlusion of prior left popliteal stents and stenosis of below-knee popliteal artery status post thrombectomy with balloon angioplasty and stent to left SFA/popliteal artery and balloon angioplasty to the left TP trunk 12/12/2022 -12/11: Osteomyelitis of residual first metatarsal bone seen on MRI. Discussed with podiatry and they have additionally consulted vascular. Wound care also on board. Continue antibiotics, wound culture pending -12/12: Angiogram today prior to deciding definitive surgical intervention but tentatively for Wednesday 12/13 at 8:30 AM. Wound care following. Left foot wound presently growing MRSA, will have Intra-Op cultures as well. Will likely need ID consult moving forward -12/13: Patient will go forward with surgery but surgery be performed on Friday. Wound cultures growing MRSA and Klebsiella but no deep cultures available, continue antibiotics -12/14: Hold date placed for Lovenox after a.m. dose tomorrow. Continue broad- spectrum antibiotics. TMA Friday. Will likely need ID consult, current antib iotics covering what grew from prelim cultures, consult can likely be placed Friday if applicable -12/15: Hold placed for Lovenox after a.m. dose, TMA with podiatry Friday, placed n.p.o. at midnight. Will likely need ID consult, current antibiotics covering what grew from prelim cultures, consult can likely be placed Friday if applicable (2) Peripheral vascular disease, unspecified: PLAN: #peripheral vascular disease/occlusion of prior left popliteal stents and stenosis of below-knee popliteal artery status post thrombectomy with balloon angioplasty and stent to left SFA/popliteal artery and balloon angioplasty to the left TP trunk 12/12/2022 -as above PLAN: Plan Chronic conditions: * #HTN/HLD/chronic diastolic CHF/A-fib/CAD status post stent? Blood pressures are little bit low and he used to have high blood pressure but is gotten better controlled since he retired? We will hold Eliquis and place him on therapeutic Lovenox? We will continue with his home blood pressure medications? Will continue Lipitor and Plavix-12/14: Does have fairly loud systolic murmur primarily at the upper left sternal border, did appear to have mild to moderate aortic stenosis, ordered echocardiogram to better evaluate- 12/15: Echo ordered given murmur, this does not need to delay surgery as patient is otherwise stable * Seizure disorder? Continue with Lamictal * GERD? Stable? Continue with PPI * BPH? Stable? Continue with his home medications * DM2: ? Accu-Cheks ACHS? Continue with vancomycin and Zosyn? Will continue with insulin and monitor blood sugars, hold Ozempic and metformin DVT: Therapeutic Lovenox, holding lovenox after AM dose, can use scds tonight and until surgery/post surgery until cleared for AC by podiatry Charges/Coding Visit Charges Inpatient E&M: 45776 Subs Hosp L2
[2022-12-16] MEDS: lamoTRIgine 100 MG Tablet 200 MG PO ×2 (07:57→20:53)
[2022-12-16] MEDS: Metoprolol Tartrate 25 MG Tablet 37.5 MG PO ×2 (07:57→20:54)
[2022-12-16 08:42] LABS: Bedside Glucose 123 mg/dL (74-106)
[2022-12-16 11:55] LABS: Bedside Glucose 113 mg/dL (74-106)
--- NOTE | 2022-12-16 12:45 | BONBX_PTH ---
PATIENT: AGUSTO CASTILLO LOC: MS3 U#:[id number] AGE/SX: 77/M [place] [facility] [place]10/[address]: Dr. Wong Carrion DO : 1945 BED: 1 DIS: 12/18/2022 SPEC #: [id number] RECD: 12/16/22 16:35 STATUS: JOSETTE MANSFIELD #: [id number] LYNN: 12/16/22 12:[address]: Andrea Baxter DEPT: SURGICAL PATHOLOGY RECD BY: Phyllis Mendoza ENTERED: 12/17/22 07:08 SP TYPE: Bone OTHR DR: DO Dr. Wong Albright MD Dr. John E Schinner, MD Dr. Nicholas F Kotsonis, MD Dr. Paige Pierce, MD Tissues: Left foot Procedures: Decalcification bone/plaque Surgery Specimen Level III HEADER OPERATION: Revision transmetatarsal amputation of foot PRE-OP DIAGNOSIS: Type 2 diabetes mellitus with left diabetic foot infection TISSUE SUBMITTED: Left foot bone MICROSCOPIC DIAGNOSIS Left foot bone, revision transmetatarsal amputation: A piece of bone with reactive changes, negative for acute osteomyelitis. STEPHANIE:luis daniel 12/19/2022 MICROSCOPIC DESCRIPTION Slides are reviewed. GROSS DESCRIPTION Received in fixative is one container labeled with the patient's name and designated left foot bone. The specimen consists of an irregular fragment of abraham bone measuring 2.5 x 2.0 x 1.5 cm. Electronic Sales [employer] sections are submitted in two cassettes after decalcification. / AM:luis daniel 12/17/2022 TC:5 CPT: 58576, 60907
[2022-12-16 13:21] LABS: Bedside Glucose 121 mg/dL (74-106)
[2022-12-16] MEDS: Bupivacaine Mpf 0.5% 30 ML VIAL (13:45)
--- NOTE | 2022-12-16 14:13 | OP.PCM_ITS ---
Problems Associated Problem List Diagnoses (1) Acute osteomyelitis of left foot: (2) Type 2 diabetes mellitus with diabetic polyneuropathy: Report of Operation Date of Procedure: 12/16/22 Pre-Operative Diagnosis: 1) Osteomyelitis, Left foot (1st metatarsal) 2) Wet Gangrene, Left foot Post-Operative Diagnosis: same Surgery/Procedure Performed:: Partial first and second ray resection Description of Surgical Findings:: Patient was brought back the operating placed complete in supine position on the operating table. All osseous prominences were offloaded prevent any compression neuropraxia. Well-padded left ankle tourniquet was applied to left lower extremity. Left lower extremity scrubbed prepped draped using typical aseptic fashion after the patient was induced under general anesthesia. No tourniquet was used 20 cc was used to perform an ankle ring block of 0.25% Marcaine plain. Once cleared by anesthesia the large plantar medial area of necrosis was excised down to the level of the first and second metatarsal bone this tissue was excised using combination of 15 blade and pickups and sent to culture for tissue culture. Additional debridement was performed using combi nation of rongeurs and pickups and 15 blade until all nonviable tissue was removed. Sagittal saw was used to resect a portion of the infected first metatarsal base as well as second metatarsal to maintain a good metatarsal parabola. First and second metatarsal were sent to culture and pathology for further examination. The remaining wound bed appeared healthy granular bleeding with no residual purulence or nonviable tissue noted. Site was flushed with low-pressure pulse lavage with copious amounts of normal sterile saline. Dorsomedially there is some approximation of of a skin flap with using 3 oh simple interrupted Prolene stitches. All bleeders cauterized at this time. The wound base was then filled with axial fill 500 cc. Overlying Adaptic 4 x 4's, ABD pads, Kerlix and Mitchell bandage. Patient tolerated procedure and anesthesia well apparent satisfactory condition. Patient transferred to PACU vital signs stable vascular status intact all digits for further monitoring prior to transfer back to floor. Patient receiving IV Vanco Zosyn per infectious disease. We will reevaluate the patient tomorrow. Recommend long-term IV antibiotics. Recommend long-term nonweightbearing along for wound healing. Type of Anesthesia: General/Regional Special Medications: 0.25% Marcaine plain, axial fill 500 cc Specimen's removed: Left first and second metatarsal bases Left foot tissue Drains: None Estimated Blood Loss (mL): Less than Description of Procedure: See above Grafts/Implants Used: Axiofill Complications None Admit VTE Documentation VTE Present on Admission: Yes VTE Mechan Device Prophylaxis: SCD's VTE Pharm Prophylaxis ordered?: Yes
[2022-12-16 14:56] LABS: Bedside Glucose 139 mg/dL (74-106)
[2022-12-16] MEDS: Glucerna Shake 120 ML LIQUID PO (16:47)
[2022-12-16] MEDS: Tamsulosin HCl 0.4 MG Capsule 0.8 MG PO (16:47)
[2022-12-16] MEDS: Insulin Lispro 100 UNIT/ML INSULN.PEN SC ×2 (16:50→20:52)
[2022-12-16 17:21] LABS: Bedside Glucose 165 mg/dL (74-106)
[2022-12-16] MEDS: Atorvastatin Calcium 80 MG Tablet PO (20:53)
[2022-12-16 22:00] LABS: Bedside Glucose 213 mg/dL (74-106)
[2022-12-17 03:17] VITALS: BP 122/75; PULSE 118; RESP 15; TEMP 36.6; O2SAT 95
[2022-12-17] MEDS: Acetaminophen 325 MG Tablet 650 MG PO ×3 (03:43→22:33)
[2022-12-17] MEDS: oxyCODONE 5 MG Tablet PO ×5 (03:43→22:33)
[2022-12-17 05:04] LABS: Absolute Lymphocyte Count 0.75 X10^3/uL (0.83-4.51); Absolute Neutrophil Count 9.2 X10^3/uL (2.0-7.7); Basophil# 0.05 X10^3/uL; Basophil% 0.5 % (0-1); Eosinophil# 0.12 X10^3/uL; Eosinophils% 1.1 % (0-5); Hematocrit 36.1 % (40-54); Hemoglobin 11.4 g/dL (13.0-16.5); Lymphocyte # 0.75 X10^3/ul (0.83-4.51); Lymphocyte % 6.9 % (19-41); Mean Corp Hgb Conc 31.6 g/dL (32-36); Mean Corpuscular Hgb 28.9 pg (27.0-32.0); Mean Corpuscular Volume 91.6 fL (80-94); Mean Platelet Vol. 8.8 fl (6.2-12.0); Monocyte% 6.5 % (0-10); NRBC Flagged by Analyzer 0 % (0-5); Neutrophil # 9.19 X10^3/uL (2.7-7.7); Neutrophil % 84.6 % (47-70); Platelet Count 301 K/mm3 (150-450); RBC Distribution Width CV 13.5 % (11.6-14.6); RBC Distribution Width SD 46.2 fl (35.1-43.9); Red Blood Count 3.94 M/mm3 (4.6-6.2); White Blood Count 10.9 K/mm3 (4.4-11.0)
[2022-12-17 05:23] LABS: Anion Gap 8 (5-15); BUN 10 mg/dL (7-18); BUN/Creat Ratio 11.6 RATIO (10-20); Calcium,Total 8.6 mg/dL (8.5-10.1); Chloride 103 mmol/L (98-107); Creatinine, Serum 0.86 mg/dL (0.70-1.30); EST Glomerular Filtration Rate 91 mL/min (>60); Est Glom Filt Rate - Afr Amer 110 mL/min (>60); Estimated Creatinine Clearance 58.71 ml/min; Glucose 139 mg/dL (74-106); Potassium 3.5 mmol/L (3.5-5.1); Sodium Level 138 mmol/L (136-145)
[2022-12-17 05:25] LABS: Vancomycin, Trough Level 21.2 ug/mL (5.0-15.0)
--- NOTE | 2022-12-17 05:33 | PCM.RX.CS ---
Consult Pharmacy has been consulted to manage selected antiobiotic: Vancomycin Type of Consult: Follow-up Suspected Infection: Skin/Soft tissue Prior Doses of Antibiotics Received/Current Regimen: Medications Discontinued Medications Vancomycin HCl (Vancomycin) 1,000 mg in 200 mls @ 200 mls/hr IV Q12H BRYSON Last Admin: 12/16/22 18:13 Dose: Infused Labs: Sodium 138 mmol/L (136-145) 12/17/22 04:50 Potassium 3.5 mmol/L (3.5-5.1) 12/17/22 04:50 Chloride 103 mmol/L (98-107) 12/17/22 04:50 Carbon Dioxide 27.0 mmol/L (21.0-32.0) 12/17/22 04:50 Anion Gap 8 (5-15) 12/17/22 04:50 BUN 10 mg/dL (7-18) 12/17/22 04:50 Creatinine 0.86 mg/dL (0.70-1.30) 12/17/22 04:50 Est GFR (MDRD) Af Amer 110 mL/min (>60) 12/17/22 04:50 Est GFR (MDRD) Non-Af 91 mL/min (>60) 12/17/22 04:50 BUN/Creatinine Ratio 11.6 RATIO (10-20) 12/17/22 04:50 Glucose 139 mg/dL (74-106) H 12/17/22 04:50 Vancomycin Trough 21.2 ug/mL (5.0-15.0) H 12/17/22 04:50 Microbiology: Microbiology 12/10/22 11:30 Wound - Left Foot Gram Stain - Final 12/10/22 11:30 Wound - Left Foot Wound Culture - Final Meth. resistant Staph. aureus Weight used for dosin.6 kg Estimated Creatinine Clearance: 59 Goal Trough: 15-20 mcg/mL Pharmacy Plan for Drug Dosing: Vancomycin trough level, drawn 12 hours post-dose, was high at 21.2. Will hold current dosing and re-draw a level in twelve hours. Further dosing will be determined from that result. Pharmacy Service will continue to monitor and adjust dosing as required. Follow-Up Labs: Trough Vancomycin - random Labs to be done on [date and time ordered]: 12/17/22 @0401
--- NOTE | 2022-12-17 07:28 | PN.HOSP_ITS ---
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 with unspecified severity (12/10/22) Non-pressure chronic ulcer of other part of left foot with fat layer exposed (12/10/22) Other acute osteomyelitis, left ankle and foot (12/10/22) Subjective Subjective Some pain in foot, but tolerable. Objective Data Objective Data Vital Signs: Vital Signs Temp Pulse Resp BP Pulse Ox O2 Del Method 36.6 C 118 H 15 122/75 H 95 Room Air 12/17/22 03:17 12/17/22 03:17 12/17/22 03:17 12/17/22 03:17 12/17/22 03:17 12/17/22 03:17 Oxygen Delivery Method Room Air Weight: 59.6 kg Body Mass Index (BMI) 18.3 Intake & Output: Intake and Output for Last 24 Hours 12/15/22 12/16/22 12/17/22 23:59 23:59 23:59 Intake Total 2295.25 / 2295.25 632 / 872 415 / 415 Output Total 1925 / 1925 750 / 1150 700 / 700 Balance 370.25 / 370.25 -118 / -278 -285 / -285 Medical Nutrition Assessment Dietitian: Malnutrition Criteria Met Start: 12/11/22 14:40 Freq: Status: Active Protocol: Document 12/15/22 10:43 AG (Rec: 12/15/22 10:43 AG [id number]) Nutrition Malnutrition Evidence of Malnutrition Exists Yes Malnutrition (severe): Chronic Evidenced By Suboptimal Energy Intake ( Severe),Weight Loss (Severe), Physical Changes (Moderate) Clinical Problem Chronic Disease or Condition Related Malnutrition Etiology chronic, severe malnutrition related to inadequate energy intake Signs/Symptoms as evidenced by reported decreased appetite w/ estimated PO intake meeting < 75% > 3 months; unintentional wt loss of 48.6#/27% x 1 year; obvious muscle wasting/fat loss evident in orbital, clavicle, acromion, and temporal areas; BMI 18.3 Status Active Problem Recommendation Dietitian Recommendations/Changes continue 1999 calorie controlled, consistent CHO diet, 120mL glucerna 4x/day and Oziel BID Lab / Micro Data Result Diagrams: 12/17/22 04:50 12/17/22 04:50 Labs: Laboratory Results - last 24 hr 12/16/22 06:06: Hemoglobin A1c 8.0 H 12/16/22 07:47: POC Glucose 123 H 12/16/22 11:12: POC Glucose 113 H 12/16/22 12:03: POC Glucose 121 H 12/16/22 14:35: POC Glucose 139 H 12/16/22 16:49: POC Glucose 165 H 12/16/22 20:43: POC Glucose 213 H 12/17/22 04:50: WBC 10.9, RBC 3.94 L, Hgb 11.4 L, Hct 36.1 L, MCV 91.6, MCH 28.9, MCHC 31.6 L, RDW Std Deviation 46.2 H, RDW Coeff of Danis 13.5, Plt Count 301, MPV 8.8, Immature Gran % (Auto) 0.400, Neut % (Auto) 84.6 H, Lymph % (Auto) 6.9 L, [place] % (Auto) 6.5, Eos % (Auto) 1.1, Baso % (Auto) 0.5, Absolute Neuts (auto) 9.2 H, Absolute Lymphs (auto) 0.75 L, Nucleated RBC % 0 12/17/22 04:50: Sodium 138, Potassium 3.5, Chloride 103, Carbon Dioxide 27.0, Anion Gap 8, BUN 10, Creatinine 0.86, Estim Creat Clear Calc 58.71, Est GFR (MDRD) Af Amer 110, Est GFR (MDRD) Non-Af 91, BUN/Creatinine Ratio 11.6, Glucose 139 H, Calcium 8.6 12/17/22 04:50: Vancomycin Trough 21.2 H Micro: Microbiology 12/10/22 11:30 Wound - Left Foot Gram Stain - Final 12/10/22 11:30 Wound - Left Foot Wound Culture - Final Meth. resistant Staph. aureus Radiography Diagnostic Testing: Radiology Impression Echocardiogram 12/14/22 15:33 Interpretation Summary Normal LV size. Left ventricular systolic function is normal. Mild eccentric left ventricular hypertrophy. Mean aortic valve gradient 22 mmHg. Moderate aortic stenosis. Pulmonary artery systolic pressure is 44 mmHg. Ordering Physician: Dary Mcmullen Referring Physician: Jerry Dee Performed By: Emerson Turner, DIANE Foot X-Ray 12/15/22 11:45 IMPRESSION: Mid foot amputation intraoperative image as above. Electronically Signed: Felipe Contreras MD, BEN at 17:42 EDT Reading Location ID and State: [facility] / [place] Tel , Service support , Physical Exam Const alert and no apparent distress Constitutional Narrative: lying in bed. working with therapy. Extremity Extremity Narrative: left foot bandaged, did not remove. Neuro Sensorium / Orientation: awake Psych affect normal Assessment & Plan Assessment/Plan (1) Type 2 diabetes mellitus with left diabetic foot infection: PLAN: Diabetic foot ulcer with infection/DM2/peripheral vascular disease/occlusion of prior left popliteal stents and stenosis of below-knee popliteal artery status post thrombectomy with balloon angioplasty and stent to left SFA/popliteal artery and balloon angioplasty to the left TP trunk 12/12/2022 Osteomyelitis of residual first metatarsal bone seen on MRI. 12/16: patient underwent partial first and second ray amputation by Dr. Baxter. Surgical cultures pending. Culture from 12/10 +MRSA. Podiatry recommending long- term abx. Will consult ID. Abx: pip/tazo (12/10), vanc (12/11) (2) Peripheral vascular disease, unspecified: PLAN: peripheral vascular disease/occlusion of prior left popliteal stents and stenosis of below-knee popliteal artery status post thrombectomy with balloon angioplasty and stent to left SFA/popliteal artery and balloon angioplasty to the left TP trunk 12/12/2022 PLAN: Plan Chronic conditions: * HTN/HLD/chronic diastolic CHF/A-fib/CAD status post stent? Blood pressures are little bit low and he used to have high blood pressure but is gotten better controlled since he retired? We will hold Eliquis and place him on therapeutic Lovenox? We will continue with his home blood pressure medications? Will continue Lipitor and Plavix-12/14: Does have fairly loud systolic murmur primarily at the upper left sternal border, did appear to have mild to m oderate aortic stenosis, ordered echocardiogram to better evaluate-12/15: Echo ordered given murmur, this does not need to delay surgery as patient is otherwise stable * Seizure disorder? Continue with Lamictal * GERD? Stable? Continue with PPI * BPH? Stable? Continue with his home medications * DM2: ? Accu-Cheks ACHS? Continue with vancomycin and Zosyn? Will continue with insulin and monitor blood sugars, hold Ozempic and metformin DVT: Therapeutic Lovenox, holding lovenox after AM dose, can use scds tonight and until surgery/post surgery until cleared for AC by podiatry Charges/Coding Visit Charges Inpatient E&M: 22402 Subs Hosp L2
[2022-12-17 07:50] VITALS: BP 127/74; PULSE 82; RESP 18; TEMP 36.5; O2SAT 96
[2022-12-17] MEDS: lamoTRIgine 100 MG Tablet 200 MG PO ×2 (08:12→20:33)
[2022-12-17] MEDS: Isosorbide Mononitrate 30 MG Tablet PO (08:13)
[2022-12-17] MEDS: Glucerna Shake 120 ML LIQUID PO ×4 (08:13→20:33)
[2022-12-17] MEDS: Clopidogrel Bisulfate 75 MG Tablet PO (08:13)
[2022-12-17] MEDS: Pantoprazole Sodium 40 MG Tablet PO (08:14)
[2022-12-17] MEDS: Finasteride 5 MG Tablet PO (08:14)
[2022-12-17 08:18] VITALS: PULSE 82
[2022-12-17] MEDS: Metoprolol Tartrate 25 MG Tablet 37.5 MG PO ×2 (08:18→20:33)
[2022-12-17 08:55] LABS: Bedside Glucose 122 mg/dL (74-106)
--- NOTE | 2022-12-17 10:25 | PCM.CONS.GEN ---
Assessment & Plan Assessment/Plan (1) Acute osteomyelitis of left foot: PLAN: Taken to OR 12/12/[address] Camp for thrombectomy and [employer]/stent. Taken to OR 12/16/[address] Baxter for partial 1st and 2nd ray resection. Wound cx with klebs. Multiple surg cx with MRSA. On vanc/zosyn. Pt wants to return home to take care of his . Given cx results, vascular intervention, and good surgical debridement, plan is for 6 weeks po doxy 100mg bid and augmentin 875mg bid, stop date 01/27/23 with ID followup in 2 weeks. Will follow, thank you, d/w Dr. Carrion. (2) Type 2 diabetes mellitus with diabetic polyneuropathy: (3) Peripheral vascular disease, unspecified: HPI Consult Data Date of Consult: 12/17/22 HPI Narrative Reason for Consultation: osteo HPI Narrative: AGUSTO CASTILLO, is a 77 M with DM, neuropathy, PAD, presented 12/10 with worsening of L foot ulcer. Ulcer present for several months, had worsened pain/redness/swelling/drainage. No fever or chills. Follows with Dr. Baxter, had I&D done as outpt, but sx worsened, sent to ED. Admitted on vanc/zosyn. Seen by podiatry and vascular. Taken to OR 12/12/[address] Camp for thrombectomy and [employer]/stent. Taken to OR 12/16/[address] Baxter for partial 1st and 2nd ray resection. Feeling ok, pain controlled. Full ROS performed and neg except as noted above. 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 Anemia Atherosclerosis of coronary artery of [place] heart without angina pectoris Atrial fibrillation BPH (benign prostatic hyperplasia) Cellulitis of foot, left Chronic diastolic (congestive) heart failure Chronic kidney disease Diabetes Erectile dysfunction Essential (primary) hypertension History of non-ST elevation myocardial infarction (NSTEMI) (08/26/16) Hyperlipidemia Inguinal hernia of right side without obstruction or gangrene Iron deficiency anemia Kidney disease Longstanding persistent atrial fibrillation Multinodular goiter Non-ischemic cardiomyopathy 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 Nonrheumatic aortic (valve) stenosis Paroxysmal atrial fibrillation Partial seizure disorder Peripheral vascular occlusive disease Pre-syncope Seizures Syncope Type 2 diabetes mellitus Type 2 diabetes mellitus with foot ulcer Urinary retention Urinary retention due to benign prostatic hyperplasia Ventral incisional hernia without obstruction or gangrene Home Medications atorvastatin 80 mg tablet 80 mg PO QHS cholesterol 07/21/18 [History Last Taken 12/09/22] lamotrigine 200 mg tablet 200 mg PO BID seizures 07/21/18 [History Last Taken 12/10/22 08:00] metformin 500 mg tablet,extended release 24 hr 1,000 mg PO BID diabetes 07/21/18 [History Last Taken 12/10/22 08:00] finasteride 5 mg tablet 5 mg PO DAILY prostate 08/07/20 [History Last Taken 12/10/22 08:00] magnesium oxide 400 mg PO DAILY supplement 08/07/20 [History Last Taken 12/10/22 08:00] nitroglycerin 0.4 mg sublingual tablet 0.4 mg sublingual Q5M PRN Chest Pain 08/07/20 [History Last Taken Unknown] clopidogrel 75 mg tablet 75 mg PO DAILY Check with primary doctor 03/25/22 [History Last Taken 12/10/22 08:00] isosorbide mononitrate 60 mg tablet,extended release 24 hr 60 mg PO DAILY heart 03/25/22 [History Last Taken 12/10/22 08:00] pantoprazole 40 mg tablet,delayed release 40 mg PO DAILY stomach 03/25/22 [History Last Taken 12/10/22 08:00] apixaban 5 mg tablet (Eliquis) 5 mg PO BID blood thinner 05/09/22 [History Last Taken 12/10/22 08:00] mgzakzr-nfelkfmev-kuaz tablet See Rx Instructions PO .COMPLEX supplement 05/09/22 [History Last Taken Unknown] cholecalciferol (vitamin D3) 50 mcg (2,000 unit) capsule 50 mcg PO DAILY supplement 05/09/22 [History Last Taken 12/10/22 08:00] cinnamon bark 500 mg capsule (Cinnamon) 500 mg PO DAILY supplement 05/09/22 [History Last Taken 12/10/22 08:00] metoprolol tartrate 75 mg tablet 50 mg PO BID heart/blood pressure 05/09/22 [History Last Taken 12/10/22 08:00] semaglutide 1 mg/dose (2 mg/1.5 mL) subcutaneous pen injector (Ozempic) 1 mg subcut QWEEK dm 05/09/22 [History Last Taken 12/03/22] tamsulosin 0.4 mg capsule 0.8 mg PO DAILY urination 05/09/22 [History Last Taken 12/10/22 08:00] ciprofloxacin HCl 750 mg tablet 750 mg PO BID asntibiotic 12/10/22 [History Last Taken 12/10/22 08:00] doxycycline hyclate 100 mg capsule 100 mg PO DAILY antibiotic 12/10/22 [History Last Taken 12/10/22 08:00] semaglutide 2 mg/dose (8 mg/3 mL) subcutaneous pen injector (Ozempic) 8 mg subcut QWEEK dm 12/10/22 [History Last Taken 12/03/22] Allergy/AdvReac Type Severity Reaction Status Date / Time carbamazepine [From Tegretol] Allergy Rash Verified 12/10/22 12:09 Family History Mother Cancer Heart disease Father Hypertension Diabetes Son Heart disease Surgical History History of angioplasty of peripheral vessel (06/28/14) History of atherectomy History of cardioversion (08/21/16) History of colonoscopy (01/2019) History of coronary artery stent placement (03/20/22) History of inguinal hernia repair 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) History of transurethral resection of prostate (01/2019) Status post biopsy of thyroid gland (09/2019) Social History household members: spouse Smoking Status: Former smoker quit date: 08/04/69 pack-years: 10 alcohol intake: current alcohol intake frequency: a few times a month substance use type: does not use Physical Exam Const alert, oriented x3 and no apparent distress General Appearance: cooperative and well developed HEENT normocephalic and head/scalp atraumatic Eyes PERRL and EOMs intact bilaterally Neck supple and No nodes Resp normal air movement and clear to auscultation bilaterally Cardio regular rate and regular rhythm GI soft to palpation, non-tender and non-distended Extremity General Extremity: Negative for edema Skin Skin Narrative: L foot wrapped. Reviewed photos. Neuro CN's II-XII intact bilaterally Medical Records Data Medical Nutrition Assessment Dietitian: Malnutrition Criteria Met Start: 12/11/22 14:40 Freq: Status: Active Protocol: Document 12/15/22 10:43 AG (Rec: 12/15/22 10:43 AG [id number]) Nutrition Malnutrition Evidence of Malnutrition Exists Yes Malnutrition (severe): Chronic Evidenced By Suboptimal Energy Intake ( Severe),Weight Loss (Severe), Physical Changes (Moderate) Clinical Problem Chronic Disease or Condition Related Malnutrition Etiology chronic, severe malnutrition related to inadequate energy intake Signs/Symptoms as evidenced by reported decreased appetite w/ estimated PO intake meeting < 75% > 3 months; unintentional wt loss of 48.6#/27% x 1 year; obvious muscle wasting/fat loss evident in orbital, clavicle, acromion, and temporal areas; BMI 18.3 Status Active Problem Recommendation Dietitian Recommendations/Changes continue 1999 calorie controlled, consistent CHO diet, 120mL glucerna 4x/day and Oziel BID Lab / Micro Data Attestation: I reviewed the patient's lab results. Result Diagrams: 12/17/22 04:50 12/17/22 04:50 Labs: Laboratory Results - last 24 hr 12/16/22 11:12: POC Glucose 113 H 12/16/22 12:03: POC Glucose 121 H 12/16/22 14:35: POC Glucose 139 H 12/16/22 16:49: POC Glucose 165 H 12/16/22 20:43: POC Glucose 213 H 12/17/22 04:50: WBC 10.9, RBC 3.94 L, Hgb 11.4 L, Hct 36.1 L, MCV 91.6, MCH 28.9, MCHC 31.6 L, RDW Std Deviation 46.2 H, RDW Coeff of Danis 13.5, Plt Count 301, MPV 8.8, Immature Gran % (Auto) 0.400, Neut % (Auto) 84.6 H, Lymph % (Auto) 6.9 L, [place] % (Auto) 6.5, Eos % (Auto) 1.1, Baso % (Auto) 0.5, Absolute Neuts (auto) 9.2 H, Absolute Lymphs (auto) 0.75 L, Nucleated RBC % 0 12/17/22 04:50: Sodium 138, Potassium 3.5, Chloride 103, Carbon Dioxide 27.0, Anion Gap 8, BUN 10, Creatinine 0.86, Estim Creat Clear Calc 58.71, Est GFR (MDRD) Af Amer 110, Est GFR (MDRD) Non-Af 91, BUN/Creatinine Ratio 11.6, Glucose 139 H, Calcium 8.6 12/17/22 04:50: Vancomycin Trough 21.2 H 12/17/22 07:46: POC Glucose 122 H Micro: Microbiology 12/16/22 13:55 Bone - Left Foot Gram Stain - Final 12/16/22 13:55 Bone - Left Foot Wound Culture - Preliminary Staphylococcus aureus 12/16/22 13:52 Tissue - Left Foot Gram Stain - Final 12/16/22 13:52 Tissue - Left Foot Wound Culture - Preliminary Staphylococcus aureus Radiology Impression Echocardiogram 12/14/22 15:33 Interpretation Summary Normal LV size. Left ventricular systolic function is normal. Mild eccentric left ventricular hypertrophy. Mean aortic valve gradient 22 mmHg. Moderate aortic stenosis. Pulmonary artery systolic pressure is 44 mmHg. Ordering Physician: Dary Mcmullen Referring Physician: Jerry Dee Performed By: Emerson Turner RCS Foot X-Ray 12/15/22 11:45 IMPRESSION: Mid foot amputation intraoperative image as above. Electronically Signed: Felipe Contreras MD, BEN at 17:42 EDT ,
--- NOTE | 2022-12-17 10:50 | CASEMGMT ---
Addendum entered by Regina Park 12/17/22 14:02: EMANI GREGG back into pt room, pt sitting in chair, he states he would like this RN CM to submit to insurance for the knee scooter through [facility] [email or web address]. Faxed rx and supporting documentation to [email or web address] at this time. Patient was provided a list of C providers including quality and resource use data and consistent with the patient?s preferred geographic region, medical needs, and insurance network were provided from the [employer]. Asked pt to consider to have SN in the home to assist/monitor with his wounds. Addendum entered by Regina Park 12/17/22 11:04: TC to [facility], spoke with Leah, they have 3 knee scooters in stock and the cost is $299.99. She states it can be attempted to be covered by insurance but she does not know the timeframe in which pt would be approved. [facility] does not carry knee scooters. EMANI GREGG into pt room to make aware of the information. Discussed that [employer] is another option. Pt is on computer in chair. Pt asks for model number for scooter in room, wrote this down with brand for him. He states he will have his look this up on [employer]. RN CRISTINO to check back. Pt states he prefers to have this available for when he goes home. Original Note: Spoke with ID and therapy. RN CM into pt room, pt sitting up in chair. Pt states he did well with the knee scooter and he is interested in purchasing one. EMANI CM to check into the cost for this. Discussed [facility] for pt, pt denies any need for nursing or therapy. Pt states he wants to go home and take care of his . Pt is aware the plan is for oral antibiotics. Pt denies further needs.
[2022-12-17 11:30] LABS: Bedside Glucose 290 mg/dL (74-106)
--- NOTE | 2022-12-17 12:01 | PCM.PROGNOTE ---
Subjective Subjective Seven 7-year-old male seen bedside 1 day postop left foot wound debridement with partial first and second ray resection. Patient denies constitutional symptoms. Pain well controlled at current. No signs symptoms DVT. Objective Data Objective Data Neurovascular status unchanged. Full-thickness wound to plantar medial foot with healthy granular base intact axial fill. No residual signs of infection at current. Some sanguinous drainage noted. No evidence DVT bilaterally. Vital Signs: Vital Signs Temp Pulse Resp BP Pulse Ox O2 Del Method 97.7 F L 82 18 127/74 H 96 Room Air 12/17/22 07:50 12/17/22 08:18 12/17/22 07:50 12/17/22 07:50 12/17/22 07:50 12/17/22 07:50 Oxygen Delivery Method Room Air Weight: 59.6 kg Body Mass Index (BMI) 18.3 Intake & Output: Intake and Output for Last 24 Hours 12/15/22 12/16/22 12/17/22 23:59 23:59 23:59 Intake Total 2295.25 / 2295.25 632 / 872 632.75 / 632.75 Output Total 1925 / 1925 750 / 1150 1650 / 1650 Balance 370.25 / 370.25 -118 / -278 -1017.25 / -1017.25 Medical Nutrition Assessment Dietitian: Malnutrition Criteria Met Start: 12/11/22 14:40 Freq: Status: Active Protocol: Document 12/15/22 10:43 AG (Rec: 12/15/22 10:43 [id number]) Nutrition Malnutrition Evidence of Malnutrition Exists Yes Malnutrition (severe): Chronic Evidenced By Suboptimal Energy Intake ( Severe),Weight Loss (Severe), Physical Changes (Moderate) Clinical Problem Chronic Disease or Condition Related Malnutrition Etiology chronic, severe malnutrition related to inadequate energy intake Signs/Symptoms as evidenced by reported decreased appetite w/ estimated PO intake meeting < 75% > 3 months; unintentional wt loss of 48.6#/27% x 1 year; obvious muscle wasting/fat loss evident in orbital, clavicle, acromion, and temporal areas; BMI 18.3 Status Active Problem Recommendation Dietitian Recommendations/Changes continue 1999 calorie controlled, consistent CHO diet, 120mL glucerna 4x/day and Oziel BID Lab / Micro Data Result Diagrams: 12/17/22 04:50 12/17/22 04:50 Labs: Laboratory Results - last 24 hr 12/16/22 12:03: POC Glucose 121 H 12/16/22 14:35: POC Glucose 139 H 12/16/22 16:49: POC Glucose 165 H 12/16/22 20:43: POC Glucose 213 H 12/17/22 04:50: WBC 10.9, RBC 3.94 L, Hgb 11.4 L, Hct 36.1 L, MCV 91.6, MCH 28.9, MCHC 31.6 L, RDW Std Deviation 46.2 H, RDW Coeff of Danis 13.5, Plt Count 301, MPV 8.8, Immature Gran % (Auto) 0.400, Neut % (Auto) 84.6 H, Lymph % (Auto) 6.9 L, [place] % (Auto) 6.5, Eos % (Auto) 1.1, Baso % (Auto) 0.5, Absolute Neuts (auto) 9.2 H, Absolute Lymphs (auto) 0.75 L, Nucleated RBC % 0 12/17/22 04:50: Sodium 138, Potassium 3.5, Chloride 103, Carbon Dioxide 27.0, Anion Gap 8, BUN 10, Creatinine 0.86, Estim Creat Clear Calc 58.71, Est GFR (MDRD) Af Amer 110, Est GFR (MDRD) Non-Af 91, BUN/Creatinine Ratio 11.6, Glucose 139 H, Calcium 8.6 12/17/22 04:50: Vancomycin Trough 21.2 H 12/17/22 07:46: POC Glucose 122 H 12/17/22 11:13: POC Glucose 290 H Micro: Microbiology 12/16/22 13:55 Bone - Left Foot Gram Stain - Final 12/16/22 13:55 Bone - Left Foot Wound Culture - Preliminary Staphylococcus aureus 12/16/22 13:52 Tissue - Left Foot Gram Stain - Final 12/16/22 13:52 Tissue - Left Foot Wound Culture - Preliminary Staphylococcus aureus 12/10/22 11:30 Wound - Left Foot Gram Stain - Final 12/10/22 11:30 Wound - Left Foot Wound Culture - Final Meth. resistant Staph. aureus Radiography Diagnostic Testing: Radiology Impression Foot X-Ray 12/15/22 11:45 IMPRESSION: Mid foot amputation intraoperative image as above. Electronically Signed: Felipe Contreras MD, BEN at 17:42 EDT , Assessment & Plan Assessment/Plan (1) Acute osteomyelitis of left foot: PLAN: Exam performed. Intraoperative cultures pending. Preoperative wound cultures demonstrated MRSA. Patient receiving Vanco Zosyn. Likely recommend ID consult for possible long-term IV antibiotics. Patient have to maintain nonweightbearing until wound healing. He will do so with a knee scooter. Due to potential for possible long-term IV antibiotics and requirement for nonweightbearing I would recommend long term facility. Wound appears to be stable and healthy at this time. Dressing was changed consisting of Adaptic 4 x 4's Kerlix and a light Mitchell bandage. We will continue to follow closely while in house and will follow-up weekly upon discharge. (2) Type 2 diabetes mellitus with diabetic polyneuropathy: (3) Peripheral vascular disease, unspecified: (4) Non-pressure chronic ulcer of other part of left foot with fat layer exposed:
[2022-12-17] MEDS: Insulin Lispro 100 UNIT/ML INSULN.PEN SC ×3 (12:02→20:33)
--- NOTE | 2022-12-17 12:56 | WOUNDNOTE ---
wound photo: left foot
[2022-12-17 15:10] VITALS: BP 98/55; PULSE 91; RESP 18; TEMP 36.4; O2SAT 95
--- NOTE | 2022-12-17 16:00 | CASEMGMT ---
Followed up with patient regarding HH choices. Patient stated he was unable to talk to his d/t her napping. He asked that someone follow up with him in the morning. RN CM notified. Kaylee Oden
[2022-12-17] MEDS: Tamsulosin HCl 0.4 MG Capsule 0.8 MG PO (16:17)
[2022-12-17 16:41] LABS: Bedside Glucose 163 mg/dL (74-106)
--- NOTE | 2022-12-17 18:46 | NURSING ---
John from lab called and said the lab specimen he has for his vanc trough is not gonna work so he will need to send up someone else and have it redrawn.
[2022-12-17 20:22] LABS: Vancomycin, Random Level 13.5 ug/mL (0.0-15.0)
[2022-12-17 20:27] VITALS: BP 108/72; PULSE 108; RESP 17; TEMP 36.6; O2SAT 93
[2022-12-17 20:33] VITALS: BP 108/72; PULSE 108
[2022-12-17] MEDS: Atorvastatin Calcium 80 MG Tablet PO (20:33)
[2022-12-17] MEDS: Vancomycin IV 500 MG/100 ML BAG 100 MG IV (23:40)
[2022-12-18 03:26] LABS: Bedside Glucose 232 mg/dL (74-106)
[2022-12-18 06:15] VITALS: BP 136/86; PULSE 77; RESP 18; TEMP 36.6; O2SAT 95
[2022-12-18] MEDS: oxyCODONE 5 MG Tablet PO (06:21)
[2022-12-18] MEDS: Acetaminophen 325 MG Tablet 650 MG PO (06:21)
[2022-12-18 07:00] LABS: Bedside Glucose 157 mg/dL (74-106)
[2022-12-18 07:00] LABS: Absolute Lymphocyte Count 0.95 X10^3/uL (0.83-4.51); Absolute Neutrophil Count 5.7 X10^3/uL (2.0-7.7); Basophil# 0.04 X10^3/uL; Basophil% 0.5 % (0-1); Eosinophil# 0.19 X10^3/uL; Eosinophils% 2.5 % (0-5); Hematocrit 35.4 % (40-54); Hemoglobin 11.1 g/dL (13.0-16.5); Lymphocyte # 0.95 X10^3/ul (0.83-4.51); Lymphocyte % 12.3 % (19-41); Mean Corp Hgb Conc 31.4 g/dL (32-36); Mean Corpuscular Hgb 28.7 pg (27.0-32.0); Mean Corpuscular Volume 91.5 fL (80-94); Mean Platelet Vol. 8.8 fl (6.2-12.0); Monocyte# 0.79 X10^3/uL; Monocyte% 10.3 % (0-10); NRBC Flagged by Analyzer 0 % (0-5); Neutrophil # 5.69 X10^3/uL (2.7-7.7); Neutrophil % 73.9 % (47-70); Platelet Count 298 K/mm3 (150-450); RBC Distribution Width CV 13.6 % (11.6-14.6); RBC Distribution Width SD 45.7 fl (35.1-43.9); Red Blood Count 3.87 M/mm3 (4.6-6.2); White Blood Count 7.7 K/mm3 (4.4-11.0)
[2022-12-18 07:44] LABS: Anion Gap 6 (5-15); BUN 11 mg/dL (7-18); BUN/Creat Ratio 12.2 RATIO (10-20); Calcium,Total 8.8 mg/dL (8.5-10.1); Chloride 105 mmol/L (98-107); EST Glomerular Filtration Rate 86 mL/min (>60); Est Glom Filt Rate - Afr Amer 105 mL/min (>60); Glucose 159 mg/dL (74-106); Potassium 3.8 mmol/L (3.5-5.1); Sodium Level 138 mmol/L (136-145)
--- NOTE | 2022-12-18 08:03 | PCM.PN.HOSP ---
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 with unspecified severity (12/10/22) Non-pressure chronic ulcer of other part of left foot with fat layer exposed (12/10/22) Other acute osteomyelitis, left ankle and foot (12/10/22) Subjective Subjective no events over night Objective Data Objective Data Vital Signs: Vital Signs Temp Pulse Resp BP Pulse Ox O2 Del Method 36.6 C 77 18 136/86 H 95 Room Air 12/18/22 06:15 12/18/22 06:15 12/18/22 06:15 12/18/22 06:15 12/18/22 06:15 12/18/22 06:15 Oxygen Delivery Method Room Air Weight: 59.6 kg Body Mass Index (BMI) 18.3 Intake & Output: Intake and Output for Last 24 Hours 12/16/22 12/17/22 12/18/22 23:59 23:59 23:59 Intake Total 632 / 872 682.75 / 1332.75 800 / 800 Output Total 750 / 1150 1650 / 2100 450 / 450 Balance -118 / -278 -967.25 / -767.25 350 / 350 Medical Nutrition Assessment Dietitian: Malnutrition Criteria Met Start: 12/11/22 14:40 Freq: Status: Active Protocol: Document 12/15/22 10:43 AG (Rec: 12/15/22 10:43 AG [id number]) Nutrition Malnutrition Evidence of Malnutrition Exists Yes Malnutrition (severe): Chronic Evidenced By Suboptimal Energy Intake ( Severe),Weight Loss (Severe), Physical Changes (Moderate) Clinical Problem Chronic Disease or Condition Related Malnutrition Etiology chronic, severe malnutrition related to inadequate energy intake Signs/Symptoms as evidenced by reported decreased appetite w/ estimated PO intake meeting < 75% > 3 months; unintentional wt loss of 48.6#/27% x 1 year; obvious muscle wasting/fat loss evident in orbital, clavicle, acromion, and temporal areas; BMI 18.3 Status Active Problem Recommendation Dietitian Recommendations/Changes continue 1999 calorie controlled, consistent CHO diet, 120mL glucerna 4x/day and Oziel BID Lab / Micro Data Result Diagrams: 12/18/22 06:30 12/18/22 06:30 Labs: Laboratory Results - last 24 hr 12/17/22 07:46: POC Glucose 122 H 12/17/22 11:13: POC Glucose 290 H 12/17/22 16:15: POC Glucose 163 H 12/17/22 16:30: Random Vancomycin Cancelled 12/17/22 19:16: Random Vancomycin 13.5 12/17/22 20:30: POC Glucose 232 H 12/18/22 06:14: POC Glucose 157 H 12/18/22 06:30: WBC 7.7, RBC 3.87 L, Hgb 11.1 L, Hct 35.4 L, MCV 91.5, MCH 28.7, MCHC 31.4 L, RDW Std Deviation 45.7 H, RDW Coeff of Danis 13.6, Plt Count 298, MPV 8.8, Immature Gran % (Auto) 0.500, Neut % (Auto) 73.9 H, Lymph % (Auto) 12.3 L, [place] % (Auto) 10.3 H, Eos % (Auto) 2.5, Baso % (Auto) 0.5, Absolute Neuts (auto) 5.7, Absolute Lymphs (auto) 0.95, Nucleated RBC % 0 12/18/22 06:30: Sodium 138, Potassium 3.8, Chloride 105, Carbon Dioxide 27.0, Anion Gap 6, BUN 11, Creatinine 0.90, Estim Creat Clear Calc 56.10, Est GFR (MDRD) Af Amer 105, Est GFR (MDRD) Non-Af 86, BUN/Creatinine Ratio 12.2, Glucose 159 H, Calcium 8.8 Micro: Microbiology 12/16/22 13:55 Bone - Left Foot Gram Stain - Final 12/16/22 13:55 Bone - Left Foot Wound Culture - Preliminary Staphylococcus aureus 12/16/22 13:52 Tissue - Left Foot Gram Stain - Final 12/16/22 13:52 Tissue - Left Foot Wound Culture - Preliminary Staphylococcus aureus 12/10/22 11:30 Wound - Left Foot Gram Stain - Final 12/10/22 11:30 Wound - Left Foot Wound Culture - Final Meth. resistant Staph. aureus Physical Exam Const alert and no apparent distress HEENT head/scalp atraumatic Resp normal respiratory effort, no retractions, no use of accessory muscles and clear to auscultation bilaterally Cardio regular rate, regular rhythm, S1 normal heart sound and S2 normal heart sound GI normal to inspection, nondistended, normoactive bowel sounds, soft to palpation, non-tender and non-distended Assessment & Plan Assessment/Plan (1) Type 2 diabetes mellitus with left diabetic foot infection: PLAN: Diabetic foot ulcer with infection/DM2/peripheral vascular disease/occlusion of prior left popliteal stents and stenosis of below-knee popliteal artery status post thrombectomy with balloon angioplasty and stent to left SFA/popliteal artery and balloon angioplasty to the left TP trunk 12/12/2022 Osteomyelitis of residual first metatarsal bone seen on MRI. 12/16: patient underwent partial first and second ray amputation by Dr. Baxter. Surgical cultures pending. Culture from 12/10 +MRSA. Podiatry recommending long-term abx. Will consult ID. Abx: pip/tazo (12/10), vanc (12/11) Appreciate ID input: recommending doxy 100 BID and amox/CA 875 BID for 6 weeks w ID follow up. (2) Peripheral vascular disease, unspecified: PLAN: peripheral vascular disease/occlusion of prior left popliteal stents and stenosis of below-knee popliteal artery status post thrombectomy with balloon angioplasty and stent to left SFA/popliteal artery and balloon angioplasty to the left TP trunk 12/12/2022 PLAN: Plan Chronic conditions: HTN/HLD/chronic diastolic CHF/A-fib/CAD status post stent? Blood pressures are little bit low and he used to have high blood pressure but is gotten better controlled since he retired? We will hold Eliquis and place him on therapeutic Lovenox? We will continue with his home blood pressure medications? Will continue Lipitor and Plavix-12/14: Does have fairly loud systolic murmur primarily at the upper left sternal border, did appear to have mild to moderate aortic stenosis, ordered echocardiogram to better evaluate-12/15: Echo ordered given murmur, this does not need to delay surgery as patient is otherwise stable Seizure disorder? Continue with Lamictal GERD? Stable? Continue with PPI BPH? Stable? Continue with his home medications DM2: ? Accu-Cheks ACHS? Continue with vancomycin and Zosyn? Will continue with insulin and monitor blood sugars, hold Ozempic and metformin DVT: Therapeutic Lovenox, holding lovenox after AM dose, can use scds tonight and until surgery/post surgery until cleared for AC by podiatry Discharge to home with [facility]. Follow up with podiatry and infectious disease.
[2022-12-18 09:32] VITALS: BP 109/70; PULSE 95; RESP 18; TEMP 36.4; O2SAT 95
[2022-12-18] MEDS: Insulin Lispro 100 UNIT/ML INSULN.PEN SC ×2 (09:33→12:07)
[2022-12-18] MEDS: Insulin Glargine-YFGN 100 UNIT/ML Pen 15 UNIT SC (09:34)
[2022-12-18] MEDS: Clopidogrel Bisulfate 75 MG Tablet PO (09:35)
[2022-12-18] MEDS: Pantoprazole Sodium 40 MG Tablet PO (09:42)
[2022-12-18] MEDS: Finasteride 5 MG Tablet PO (09:42)
[2022-12-18] MEDS: Isosorbide Mononitrate 30 MG Tablet PO (09:42)
--- NOTE | 2022-12-18 09:55 | CASEMGMT ---
Addendum entered by Regina Park 12/18/22 14:43: EMANI GREGG into pt room, pt is aware [facility] will see pt on Friday as long as the appt is kept with 's office. Pt verbalizes understanding. Pt is aware of appt tomorrow. Pt is present in room and states she rented a knee scooter from [employer] for 2 wks as their scooter will not be delivered until this evening. They are aware that one was ordered through [facility] [employer] as well to see if insurance would cover. They would like this to continue to be processed and if it is covered, they will return theirs from [employer]. Pt denies further needs. Nurse present in room as well. Addendum entered by Regina Park 12/18/22 14:28: TC back to 's office, no answer has been made on the telehealth. Appt set up for tomorrow at 3:10 for NP. Alli Freed at [facility]. They are able to start care for pt on Friday. Addendum entered by Regina Park 12/18/22 10:50: TC to 's office to make follow up appt. [employer] to check with him to see if could do a telehealth appt d/t pt mobility and non wt bearing status. She will call this EMANI GREGG back. Original Note: EMANI GREGG into pt room, pt sitting in chair talking with charge nurse. Pt states he would like this EMANI GREGG to call his for the choice for [facility]. He also states that she bought a knee scooter online from [employer] and it will arrive today. TC to pt , she chose [facility]. She confirms the knee scooter will arrive today. TC to [facility], left referral on intake's line.
[2022-12-18 10:31] VITALS: PULSE 95
[2022-12-18] MEDS: Metoprolol Tartrate 25 MG Tablet 37.5 MG PO (10:31)
[2022-12-18] MEDS: lamoTRIgine 100 MG Tablet 200 MG PO (10:32)
[2022-12-18] MEDS: Vancomycin IV 500 MG/100 ML BAG 100 MG IV (10:32)
--- NOTE | 2022-12-18 12:08 | DCINST_ITS ---
Discharge Instructions Diet Discharge Diet: 1999 Calorie Control Diet Activity Discharge Activity: - (use knee scooter.) Weight Bearing Status: No weight bearing (left leg) Dressing / Incision Call your doctor if your incision/area has: Sudden Increased Bleeding, Increased Pain/ Swelling, Increased Redness and Foul Smelling Discharge Follow Up Care Test Results: Test results from this visit will be discussed in further detail at your follow- up appointment, if applicable. Discharge Plan Admission Admit Date/Time: 12/10/22 14:36 Primary Reason for Your Visit: Diabetic foot infection. Attending Provider: Wong Carrion Primary Care Provider: Jerry Dee Consulting Providers: Dandy Box ; Dary Mcmullen ; Andrea Baxter ; Wong Camp ; Shaquille Garnett Instructions Additional Instructions / Restrictions: Use knee scooter while up. Follow up with Dr. Baxter of podiatry and Dr. Garnett of infectious disease. Discharge Orders/Prescriptions Prescriptions: New doxycycline monohydrate 100 mg tablet 100 mg PO BID 42 Days Qty: 84 0RF amoxicillin-pot clavulanate 875-125 mg tablet 1 tab PO BID 42 Days Qty: 84 0RF Continued atorvastatin 80 mg tablet 80 mg PO QHS lamotrigine 200 mg tablet 200 mg PO BID metformin 500 mg tablet extended release 24 hr 1,000 mg PO BID clopidogrel 75 mg tablet 75 mg PO DAILY isosorbide mononitrate 60 mg tablet extended release 24 hr 60 mg PO DAILY pantoprazole 40 mg tablet,delayed release (DR/EC) 40 mg PO DAILY [id number] Tablet See Rx Instructions PO .COMPLEX Rx Instructions: orally po; tamsulosin 0.4 mg capsule 0.8 mg PO DAILY cholecalciferol (vitamin D3) 50 mcg (2,000 unit) capsule 50 mcg PO DAILY cinnamon bark [Cinnamon] 500 mg capsule 500 mg PO DAILY Eliquis 5 mg tablet 5 mg PO BID Ozempic 1 mg/dose (2 mg/1.5 mL) pen injector 1 mg subcut QWEEK metoprolol tartrate 75 mg tablet 50 mg PO BID nitroglycerin 0.4 MG tablet, sublingual 0.4 mg SUBLINGUAL Q5M PRN (Reason: Chest Pain) finasteride 5 MG tablet 5 mg PO DAILY magnesium oxide 400 MG tablet 400 mg PO DAILY Ozempic 2 mg/dose (8 mg/3 mL) pen injector 8 mg SUBCUT QWEEK Rx Instructions: Wednesdays Discontinued doxycycline hyclate 100 mg capsule 100 mg PO DAILY ciprofloxacin HCl 750 mg tablet 750 mg PO BID Label Comments: take 1 tablet by mouth twice a day Referrals / Follow Up: Andrea Baxter DPM [Med Staff - Active Staff] - Within 1 Week Wong Camp MD [Med Staff - Active Staff] - Within 2 Weeks Jerry Dee MD [Primary Care Provider] - Within 2 Weeks hSaquille Garnett MD [Med Staff - Active Staff] - Within 2 Weeks Disposition Disposition (needs filled in before D/C Order can be placed): Home Health Service
--- NOTE | 2022-12-18 12:15 | DS.PCM_ITS ---
Providers Date of Admission: 12/10/22 Primary Care Physician: Dr. Jerry Dee MD Consultations 12/10/22 15:21 Consult: Podiatry Routine Consulting Provider: Andrea Baxter Reason for Consult: Diabetic foot sent in from office EMERGENT Consult: No Notified: Yes Date Notified: 12/10/22 Time Notified: 14:42 Method of Notification: Text 12/11/22 08:22 Consult: Vascular Surgery Routine Consulting Provider: Wong Camp Reason for Consult: left foot wound EMERGENT Consult: No MD Notified: Yes Date Notified: 12/11/22 Time Notified: 08:22 Method of Notification: Text 12/11/22 13:21 Consult: Onc/Wound/hub lead Routine Comment: Reason for Consult:: left foot 12/17/22 07:37 Consult: Infectious Disease Routine Consulting Provider: Shaquille Garnett Reason for Consult: diabetic foot infection EMERGENT Consult: No Notified: Yes Date Notified: 12/17/22 Time Notified: 07:37 Method of Notification: Text Reason For Visit: DIABETIC FOOT ULCER WITH INFECTION Diagnosis Discharge Diagnosis (1) Type 2 diabetes mellitus with left diabetic foot infection: Status: Acute Code(s): E11.628 - Type 2 diabetes mellitus with other skin complications; L08.9 - Local infection of the skin and subcutaneous tissue, unspecified Plan: Diabetic foot ulcer with infection/DM2/peripheral vascular disease/occlusion of prior left popliteal stents and stenosis of below-knee popliteal artery status post thrombectomy with balloon angioplasty and stent to left SFA/popliteal artery and balloon angioplasty to the left TP trunk 12/12/2022 Osteomyelitis of residual first metatarsal bone seen on MRI. 12/16: patient underwent partial first and second ray amputation by Dr. Baxter. Surgical cultures pending. Culture from 12/10 +MRSA. Podiatry recommending long- term abx. Will consult ID. Abx: pip/tazo (12/10), vanc (12/11) Appreciate ID input: recommending doxy 100 BID and amox/CA 875 BID for 6 weeks w ID follow up. (2) Peripheral vascular disease, unspecified: Status: Chronic Code(s): I73.9 - Peripheral vascular disease, unspecified Plan: peripheral vascular disease/occlusion of prior left popliteal stents and stenosis of below-knee popliteal artery status post thrombectomy with balloon angioplasty and stent to left SFA/popliteal artery and balloon angioplasty to the left TP trunk 12/12/2022 Plan Chronic conditions: * HTN/HLD/chronic diastolic CHF/A-fib/CAD status post stent? Blood pressures are little bit low and he used to have high blood pressure but is gotten better controlled since he retired? We will hold Eliquis and place him on therapeutic Lovenox? We will continue with his home blood pressure medications? Will continue Lipitor and Plavix-12/14: Does have fairly loud systolic murmur primarily at the upper left sternal border, did appear to have mild to moderate aortic stenosis, ordered echocardiogram to better evaluate-12/15: Echo ordered given murmur, this does not need to delay surgery as patient is otherwise stable * Seizure disorder? Continue with Lamictal * GERD? Stable? Continue with PPI * BPH? Stable? Continue with his home medications * DM2: ? Accu-Cheks ACHS? Continue with vancomycin and Zosyn? Will continue with insulin and monitor blood sugars, hold Ozempic and metformin DVT: Therapeutic Lovenox, holding lovenox after AM dose, can use scds tonight and until surgery/post surgery until cleared for AC by podiatry Discharge to home with [facility]. Follow up with podiatry and infectious disease. Medications at Discharge Home Medications atorvastatin 80 mg tablet 80 mg PO QHS cholesterol 07/21/18 lamotrigine 200 mg tablet 200 mg PO BID seizures 07/21/18 metformin 500 mg tablet,extended release 24 hr 1,000 mg PO BID diabetes 07/21/18 finasteride 5 mg tablet 5 mg PO DAILY prostate 08/07/20 magnesium oxide 400 mg PO DAILY supplement 08/07/20 nitroglycerin 0.4 mg sublingual tablet 0.4 mg sublingual Q5M PRN Chest Pain 08/07/20 clopidogrel 75 mg tablet 75 mg PO DAILY Check with primary doctor 03/25/22 isosorbide mononitrate 60 mg tablet,extended release 24 hr 60 mg PO DAILY heart 03/25/22 pantoprazole 40 mg tablet,delayed release 40 mg PO DAILY stomach 03/25/22 apixaban 5 mg tablet (Eliquis) 5 mg PO BID blood thinner 05/09/22 nnrukxn-mssrheoje-xlnm tablet See Rx Instructions PO .COMPLEX supplement 05/09/22 cholecalciferol (vitamin D3) 50 mcg (2,000 unit) capsule 50 mcg PO DAILY supplement 05/09/22 cinnamon bark 500 mg capsule (Cinnamon) 500 mg PO DAILY supplement 05/09/22 metoprolol tartrate 75 mg tablet 50 mg PO BID heart/blood pressure 05/09/22 semaglutide 1 mg/dose (2 mg/1.5 mL) subcutaneous pen injector (Ozempic) 1 mg subcut QWEEK dm 05/09/22 tamsulosin 0.4 mg capsule 0.8 mg PO DAILY urination 05/09/22 semaglutide 2 mg/dose (8 mg/3 mL) subcutaneous pen injector (Ozempic) 8 mg subcut QWEEK dm 12/10/22 amoxicillin 875 mg-potassium clavulanate 125 mg tablet 1 tab PO BID 6 weeks #84 tabs 12/18/22 doxycycline monohydrate 100 mg tablet 100 mg PO BID 6 weeks #84 tabs 12/18/22 Hospital Course Operations - (aortogram, left lower extremity runoff Left sfa/popliteal thrombectomy, [employer]/stent Left TP trunk [employer]ICE [employer]PER[employer] IVUS SFA/popliteal, TP trunk, peroneal. ) Summary of Care Provided Minutes Spent on Discharge: 32 Hospital Course: 68-year-old male presents with persistent progressive wound infection of his left foot. Patient was found to have osteomyelitis but beforehand had to [facility] vascular intervention. On December 12, patient underwent a left SFA/popliteal thrombectomy stent. Then on the , patient underwent a partial left first and second ray amputation of his foot. Patient was subsequent seen by infectious disease. Patient advised antibiotics with Zosyn and vancomycin. Since the end osteomyelitis has been resected, is been recommended 6 weeks of doxycycline and Augmentin. Patient be nonweightbearing to the left lower extremity and will have a knee scooter for getting around. Patient will prefer to go home and will have home health care services. Medical Records Data Medical Nutrition Assessment Dietitian: Malnutrition Criteria Met Start: 12/11/22 14:40 Freq: Status: Active Protocol: Document 12/15/22 10:43 AG (Rec: 12/15/22 10:43 AG [id number]) Nutrition Malnutrition Evidence of Malnutrition Exists Yes Malnutrition (severe): Chronic Evidenced By Suboptimal Energy Intake ( Severe),Weight Loss (Severe), Physical Changes (Moderate) Clinical Problem Chronic Disease or Condition Related Malnutrition Etiology chronic, severe malnutrition related to inadequate energy intake Signs/Symptoms as evidenced by reported decreased appetite w/ estimated PO intake meeting < 75% > 3 months; unintentional wt loss of 48.6#/27% x 1 year; obvious muscle wasting/fat loss evident in orbital, clavicle, acromion, and temporal areas; BMI 18.3 Status Active Problem Recommendation Dietitian Recommendations/Changes continue 1999 calorie controlled, consistent CHO diet, 120mL glucerna 4x/day and Oziel BID Weight / BMI Weight Weight: 59.6 kg Body Mass Index (BMI) 18.3 ABG / Lab / Microbiology Data Result Diagrams: 12/18/22 06:30 12/18/22 06:30 Laboratory: Laboratory Results - last 24 hr 12/17/22 16:15: POC Glucose 163 H 12/17/22 16:30: Random Vancomycin Cancelled 12/17/22 19:16: Random Vancomycin 13.5 12/17/22 20:30: POC Glucose 232 H 12/18/22 06:14: POC Glucose 157 H 12/18/22 06:30: WBC 7.7, RBC 3.87 L, Hgb 11.1 L, Hct 35.4 L, MCV 91.5, MCH 28.7, MCHC 31.4 L, RDW Std Deviation 45.7 H, RDW Coeff of Danis 13.6, Plt Count 298, MPV 8.8, Immature Gran % (Auto) 0.500, Neut % (Auto) 73.9 H, Lymph % (Auto) 12.3 L, [place] % (Auto) 10.3 H, Eos % (Auto) 2.5, Baso % (Auto) 0.5, Absolute Neuts (auto) 5.7, Absolute Lymphs (auto) 0.95, Nucleated RBC % 0 12/18/22 06:30: Sodium 138, Potassium 3.8, Chloride 105, Carbon Dioxide 27.0, Anion Gap 6, BUN 11, Creatinine 0.90, Estim Creat Clear Calc 56.10, Est GFR (MDRD) Af Amer 105, Est GFR (MDRD) Non-Af 86, BUN/Creatinine Ratio 12.2, Glucose 159 H, Calcium 8.8 Microbiology: Microbiology 12/16/22 13:55 Bone - Left Foot Gram Stain - Final 12/16/22 13:55 Bone - Left Foot Wound Culture - Final Staphylococcus aureus 12/16/22 13:55 Bone - Left Foot Anaerobic Culture - Preliminary Checking for anaerobes, further studies to follow. 12/16/22 13:52 Tissue - Left Foot Gram Stain - Final 12/16/22 13:52 Tissue - Left Foot Wound Culture - Preliminary Staphylococcus aureus 12/16/22 13:52 Tissue - Left Foot Anaerobic Culture - Preliminary Checking for anaerobes, further studies to follow. 12/10/22 11:30 Wound - Left Foot Gram Stain - Final 12/10/22 11:30 Wound - Left Foot Wound Culture - Final Meth. resistant Staph. aureus D/C Instructions Discharge Diet: 2000 Calorie Control Diet Weight Bearing Status: No weight bearing (left leg) Call your doctor if your incision/area has: Sudden Increased Bleeding, Increased Pain/ Swelling, Increased Redness and Foul Smelling Discharge Meaningful Use Info Meaningful Use Diagnoses (Choose all that apply): None applicable Discharge Plan Admission Admit Date/Time: 12/10/22 14:36 Primary Reason for Your Visit: Diabetic foot infection. Attending Provider: Wong Carrion Primary Care Provider: Jerry Dee Consulting Providers: Dandy Box ; Dary Mcmullen ; Andrea Baxter ; Wong Camp ; Shaquille Garnett Instructions Additional Instructions / Restrictions: Use knee scooter while up. Follow up with Dr. Baxter of podiatry and Dr. Garnett of infectious disease. Discharge Orders/Prescriptions Prescriptions: New doxycycline monohydrate 100 mg tablet 100 mg PO BID 42 Days Qty: 84 0RF amoxicillin-pot clavulanate 875-125 mg tablet 1 tab PO BID 42 Days Qty: 84 0RF Continued atorvastatin 80 mg tablet 80 mg PO QHS lamotrigine 200 mg tablet 200 mg PO BID metformin 500 mg tablet extended release 24 hr 1,000 mg PO BID clopidogrel 75 mg tablet 75 mg PO DAILY isosorbide mononitrate 60 mg tablet extended release 24 hr 60 mg PO DAILY pantoprazole 40 mg tablet,delayed release (DR/EC) 40 mg PO DAILY [id number] Tablet See Rx Instructions PO .COMPLEX Rx Instructions: orally po; tamsulosin 0.4 mg capsule 0.8 mg PO DAILY cholecalciferol (vitamin D3) 50 mcg (2,000 unit) capsule 50 mcg PO DAILY cinnamon bark [Cinnamon] 500 mg capsule 500 mg PO DAILY Eliquis 5 mg tablet 5 mg PO BID Ozempic 1 mg/dose (2 mg/1.5 mL) pen injector 1 mg subcut QWEEK metoprolol tartrate 75 mg tablet 50 mg PO BID nitroglycerin 0.4 MG tablet, sublingual 0.4 mg SUBLINGUAL Q5M PRN (Reason: Chest Pain) finasteride 5 MG tablet 5 mg PO DAILY magnesium oxide 400 MG tablet 400 mg PO DAILY Ozempic 2 mg/dose (8 mg/3 mL) pen injector 8 mg SUBCUT QWEEK Rx Instructions: Wednesdays Discontinued doxycycline hyclate 100 mg capsule 100 mg PO DAILY ciprofloxacin HCl 750 mg tablet 750 mg PO BID Label Comments: take 1 tablet by mouth twice a day Referrals / Follow Up: Andrea Baxter DPM [Med Staff - Active Staff] - Within 1 Week Wong Camp MD [Med Staff - Active Staff] - Within 2 Weeks Jerry Dee MD [Primary Care Provider] - Within 2 Weeks Shaquille Garnett MD [Med Staff - Active Staff] - Within 2 Weeks Disposition Disposition (needs filled in before D/C Order can be placed): Home Health Service Charges/Coding Visit Charges Inpatient E&M: 05031 Disch Hosp >30min
[2022-12-18 12:25] LABS: Bedside Glucose 211 mg/dL (74-106)
[2022-12-18 15:00] VITALS: BP 133/84; PULSE 88; RESP 18; TEMP 36.5; O2SAT 98
--- NOTE | 2022-12-18 15:40 | PHA.DC.MR ---
Pharmacy Service has performed discharge medication reconciliation for this patient. The patient's discharge medication list was reviewed for discrepancies and discrepancies were resolved. Attempted to savings counselor via telephone due to contact precautions, patient did not answer. Home Medications atorvastatin 80 mg tablet 80 mg PO QHS cholesterol 07/21/18 lamotrigine 200 mg tablet 200 mg PO BID seizures 07/21/18 metformin 500 mg tablet,extended release 24 hr 1,000 mg PO BID diabetes 07/21/18 finasteride 5 mg tablet 5 mg PO DAILY prostate 08/07/20 magnesium oxide 400 mg PO DAILY supplement 08/07/20 nitroglycerin 0.4 mg sublingual tablet 0.4 mg sublingual Q5M PRN Chest Pain 08/07/20 clopidogrel 75 mg tablet 75 mg PO DAILY Check with primary doctor 03/25/22 isosorbide mononitrate 60 mg tablet,extended release 24 hr 60 mg PO DAILY heart 03/25/22 pantoprazole 40 mg tablet,delayed release 40 mg PO DAILY stomach 03/25/22 apixaban 5 mg tablet (Eliquis) 5 mg PO BID blood thinner 05/09/22 [id number]-bnmvvriyb-[id number] tablet See Rx Instructions PO .COMPLEX supplement 05/09/22 cholecalciferol (vitamin D3) 50 mcg (2,000 unit) capsule 50 mcg PO DAILY supplement 05/09/22 cinnamon bark 500 mg capsule (Cinnamon) 500 mg PO DAILY supplement 05/09/22 metoprolol tartrate 75 mg tablet 50 mg PO BID heart/blood pressure 05/09/22 tamsulosin 0.4 mg capsule 0.8 mg PO DAILY urination 05/09/22 semaglutide 2 mg/dose (8 mg/3 mL) subcutaneous pen injector (Ozempic) 8 mg subcut QWEEK dm 12/10/22 amoxicillin 875 mg-potassium clavulanate 125 mg tablet 1 tab PO BID 6 weeks #84 tabs 12/18/22 doxycycline monohydrate 100 mg tablet 100 mg PO BID 6 weeks #84 tabs 12/18/22
== END 2022-12-18 15:30 | disposition home health service (06) | DRG 616 ==
LOC: ED 14:44 → MS3 15:41 → PCU 12-12 15:08 → MS3 12-12 22:03
PROVIDERS: Anesthesiology; Internal Medicine; Podiatrist; Admitting Provider Family Medicine; Emergency Provider Emergency Medicine; PCP Family Medicine
PROC: 0Y6N0Z9 Detachment at Left Foot, Partial 1st Ray, Open Approach (ICD-10-PCS; principal; 2022-12-16 12:30)
DX: E11.621 Type 2 diabetes mellitus with foot ulcer (principal); E43 Unspecified severe protein-calorie malnutrition; I42.8 Other cardiomyopathies; I13.0 Hypertensive heart and chronic kidney disease with heart failure and stage 1 through stage 4 chronic kidney disease, or unspecified chronic kidney disease; E11.52 Type 2 diabetes mellitus with diabetic peripheral angiopathy with gangrene; I50.32 Chronic diastolic (congestive) heart failure; I48.11 Longstanding persistent atrial fibrillation; Z68.1 Body mass index [BMI] 19.9 or less, adult; E11.22 Type 2 diabetes mellitus with diabetic chronic kidney disease; L97.522 Non-pressure chronic ulcer of other part of left foot with fat layer exposed; E11.42 Type 2 diabetes mellitus with diabetic polyneuropathy; G40.909 Epilepsy, unspecified, not intractable, without status epilepticus; Z79.4 Long term (current) use of insulin; I25.10 Atherosclerotic heart disease of native coronary artery without angina pectoris; E78.5 Hyperlipidemia, unspecified; K21.9 Gastro-esophageal reflux disease without esophagitis; N18.9 Chronic kidney disease, unspecified; I35.0 Nonrheumatic aortic (valve) stenosis; B95.62 Methicillin resistant Staphylococcus aureus infection as the cause of diseases classified elsewhere; B96.1 Klebsiella pneumoniae [K. pneumoniae] as the cause of diseases classified elsewhere; N40.1 Benign prostatic hyperplasia with lower urinary tract symptoms; R33.8 Other retention of urine; R29.6 Repeated falls; Z95.5 Presence of coronary angioplasty implant and graft; Z79.01 Long term (current) use of anticoagulants; Z79.02 Long term (current) use of antithrombotics/antiplatelets; Z79.84 Long term (current) use of oral hypoglycemic drugs; Z79.899 Other long term (current) drug therapy; Z87.891 Personal history of nicotine dependence
CPT/HCPCS: 36200; 36245; 36415; 37184; 37226; 37228; 37252; 37253; 73620; 73630; 73720; 75625; 75710; 76000; 76937; 80048; 80202; 82962; 83036; 85025; 85027; 85347; 85610; 85652; 85730; 86140; 87015; 87070; 87075; 87077; 87102; 87116; 87176; 87186; 87205; 87206; 88304; 88307; 88311; 93005; 93306; 93923; 97110; 97162; 97166; 97530; 97535; 97802; 97803; 99152; 99153; 99284; A9575; C1725; C1753; C1760; C1769; C1884; C2623; J7030; J7040; J7050; Q9957; A4216; C1757; C1876; C1887; J2405

== ENCOUNTER 2022-12-30 03:38 | Emergency (ER) | payer MEDICARE, OTHER, SELFPAY ==
[2022-12-30 03:39] VITALS: BP 136/91; PULSE 97; RESP 25; TEMP 36.6; O2SAT 98; BMI 19.3
[2022-12-30 03:42] VITALS: O2SAT 98
--- NOTE | 2022-12-30 04:05 | RAD_ITS ---
INDICATION: cough EXAMINATION/TECHNIQUE: X-RAY - XR Chest 1 View COMPARISON: 03/15/2022 FINDINGS: LINES/DEVICES: None. LUNGS: Ill-defined subpleural groundglass opacities are seen more prominent in the perihilar regions and lung bases , may represent atypical pneumonia or pulmonary edema. Further evaluation by CT scan would be helpful. There is possible small left pleural effusion. MEDIASTINUM AND CARDIOVASCULAR STRUCTURES: Cardiac silhouette not enlarged. Central airways and mediastinal contour are unremarkable. BONES AND SOFT TISSUES: Unremarkable. RAD/Chest 1 View (Portable) IMPRESSION: Ill-defined subpleural groundglass opacities are seen more prominent in the perihilar regions and lung bases , may represent atypical pneumonia or pulmonary edema. Further evaluation by CT scan would be helpful. There is possible small left pleural effusion. Electronically Signed: Marisel Reid MD at 4:21 EDT ,
[2022-12-30 04:13] LABS: Absolute Neutrophil Count 5.3 X10^3/uL (2.0-7.7); Basophil# 0.09 X10^3/uL; Basophil% 1.1 % (0-1); Eosinophil# 0.09 X10^3/uL; Eosinophils% 1.1 % (0-5); Hematocrit 39.2 % (40-54); Hemoglobin 12.2 g/dL (13.0-16.5); Mean Corp Hgb Conc 31.1 g/dL (32-36); Mean Corpuscular Hgb 28.8 pg (27.0-32.0); Mean Corpuscular Volume 92.7 fL (80-94); Mean Platelet Vol. 9.6 fl (6.2-12.0); Monocyte# 0.56 X10^3/uL; Monocyte% 7.1 % (0-10); NRBC Flagged by Analyzer 0 % (0-5); Neutrophil # 5.27 X10^3/uL (2.7-7.7); Neutrophil % 67.3 % (47-70); Platelet Count 454 K/mm3 (150-450); RBC Distribution Width CV 14.3 % (11.6-14.6); RBC Distribution Width SD 48.4 fl (35.1-43.9); Red Blood Count 4.23 M/mm3 (4.6-6.2); White Blood Count 7.8 K/mm3 (4.4-11.0)
--- NOTE | 2022-12-30 04:25 | CT_ITS ---
STUDY: CTA CHEST REASON FOR EXAM: Male, 77 years old. dyspnea RADIATION DOSAGE (If Supplied By Facility): CTDIvol = ( 14.76 ) mGy, DLP = ( 357.85 ) mGycm TECHNIQUE: The examination was performed with the intravenous administration of IV 100mL Isovue-370. Post-processing of the angiographic images was performed, with multiplanar reformation and 3D reconstruction. Individualized dose optimization techniques were used for this CT. COMPARISON: FINDINGS: Normal enhancement of the main pulmonary artery and right and left pulmonary arteries. Normal enhancement of the bilateral peripheral pulmonary arteries. There is no demonstrated pulmonary embolism. Normal thoracic aorta and visualized great vessels. There is no demonstrated aortic dissection. Normal heart and pericardium. Normal mediastinum. Normal hilar regions. Normal visualized trachea and bronchi. Moderate bilateral pleural effusions. Mild bilateral pulmonary edema . Normal chest wall structures. Normal osseous structures. Normal visualized upper abdomen. CT/CTA Chest W/WO Contrast IMPRESSION: CHF. No demonstrated pulmonary embolism or arterial dissection. Electronically Signed: Marisel Reid MD at 5:36 EDT ,
[2022-12-30 04:29] LABS: Anion Gap 9 (5-15); BUN 18 mg/dL (7-18); BUN/Creat Ratio 17.3 RATIO (10-20); Calcium,Total 9.1 mg/dL (8.5-10.1); Chloride 104 mmol/L (98-107); Creatinine, Serum 1.04 mg/dL (0.70-1.30); EST Glomerular Filtration Rate 73 mL/min (>60); Est Glom Filt Rate - Afr Amer 88 mL/min (>60); Estimated Creatinine Clearance 51.32 ml/min; Glucose 209 mg/dL (74-106); Magnesium 1.7 mg/dL (1.6-2.6); Potassium 4.5 mmol/L (3.5-5.1); Sodium Level 139 mmol/L (136-145)
[2022-12-30 04:57] LABS: BNP,B-Type NATRIURETIC PEPTIDE 597.9 pg/mL (0-100)
--- NOTE | 2022-12-30 05:15 | EX.ED.DYSGE1 ---
HPI History of Present Illness Chief Complaint: Shortness of Breath Narrative Narrative: Patient is a 77-year-old male with past medical history of diabetes and osteomyelitis as well as atrial fibrillation currently on Eliquis and history of CAD with nonischemic cardiomyopathy. Patient was admitted to the hospital approximately 10 days ago secondary to osteomyelitis of his left foot. He underwent surgical amputation and was discharged home on antibiotics. Patient states that this evening he awoke feeling short of breath. He states that since the transport pilot arrival to the ER the symptoms have improved. He also states that with the shortness of breath he had nasal congestion and felt like he was wheezing. He states he has been taking his Eliquis as directed because of his A-fib and he denies any chest pain associated with this. However because of his recent hospitalization he presents for repeat evaluation [facility] Medical History Acid reflux Acute osteomyelitis of left calcaneus Amputation at midfoot Anemia Atherosclerosis of coronary artery of [place]' heart without angina pectoris Atrial fibrillation BPH (benign prostatic hyperplasia) Cellulitis of foot, left Chronic diastolic (congestive) heart failure Chronic kidney disease Diabetes Erectile dysfunction Essential (primary) hypertension History of non-ST elevation myocardial infarction (NSTEMI) (08/26/16) Hyperlipidemia Inguinal hernia of right side without obstruction or gangrene Iron deficiency anemia Kidney disease Longstanding persistent atrial fibrillation Multinodular goiter Non-ischemic cardiomyopathy 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 Non-pressure chronic ulcer of other part of left foot with fat layer exposed Nonrheumatic aortic (valve) stenosis Paroxysmal atrial fibrillation Partial seizure disorder Peripheral vascular disease, unspecified Peripheral vascular occlusive disease Pre-syncope Seizures Syncope Type 2 diabetes mellitus Type 2 diabetes mellitus with diabetic polyneuropathy Type 2 diabetes mellitus with foot ulcer Type 2 diabetes mellitus with left diabetic foot infection Urinary retention Urinary retention due to benign prostatic hyperplasia Ventral incisional hernia without obstruction or gangrene Home Medications atorvastatin 80 mg tablet 80 mg PO QHS cholesterol 07/21/18 [History Last Taken 12/09/22] lamotrigine 200 mg tablet 200 mg PO BID seizures 07/21/18 [History Last Taken 12/10/22 08:00] metformin 500 mg tablet,extended release 24 hr 1,000 mg PO BID diabetes 07/21/18 [History Last Taken 12/10/22 08:00] finasteride 5 mg tablet 5 mg PO DAILY prostate 08/07/20 [History Last Taken 12/10/22 08:00] magnesium oxide 400 mg PO DAILY supplement 08/07/20 [History Last Taken 12/10/22 08:00] nitroglycerin 0.4 mg sublingual tablet 0.4 mg sublingual Q5M PRN Chest Pain 08/07/20 [History Last Taken Unknown] clopidogrel 75 mg tablet 75 mg PO DAILY Check with primary doctor 03/25/22 [History Last Taken 12/10/22 08:00] isosorbide mononitrate 60 mg tablet,extended release 24 hr 60 mg PO DAILY heart 03/25/22 [History Last Taken 12/10/22 08:00] pantoprazole 40 mg tablet,delayed release 40 mg PO DAILY stomach 03/25/22 [History Last Taken 12/10/22 08:00] apixaban 5 mg tablet (Eliquis) 5 mg PO BID blood thinner 05/09/22 [History Last Taken 12/10/22 08:00] [id number] tablet See Rx Instructions PO .COMPLEX supplement 05/09/22 [History Last Taken Unknown] cholecalciferol (vitamin D3) 50 mcg (2,000 unit) capsule 50 mcg PO DAILY supplement 05/09/22 [History Last Taken 12/10/22 08:00] cinnamon bark 500 mg capsule (Cinnamon) 500 mg PO DAILY supplement 05/09/22 [History Last Taken 12/10/22 08:00] metoprolol tartrate 75 mg tablet 50 mg PO BID heart/blood pressure 05/09/22 [History Last Taken 12/10/22 08:00] tamsulosin 0.4 mg capsule 0.8 mg PO DAILY urination 05/09/22 [History Last Taken 12/10/22 08:00] semaglutide 2 mg/dose (8 mg/3 mL) subcutaneous pen injector (Ozempic) 8 mg subcut QWEEK dm 12/10/22 [History Last Taken 12/03/22] amoxicillin 875 mg-potassium clavulanate 125 mg tablet 1 tab PO BID 6 weeks #84 tabs 12/18/22 [Rx Last Taken Unknown] doxycycline monohydrate 100 mg tablet 100 mg PO BID 6 weeks #84 tabs 12/18/22 [Rx Last Taken Unknown] furosemide 20 mg tablet (Lasix) 20 mg PO DAILY 30 days #30 tabs 12/30/22 [Rx Last Taken Unknown] Allergy/AdvReac Type Severity Reaction Status Date / Time carbamazepine [From Tegretol] Allergy Rash Verified 12/30/22 03:46 Family History Mother Cancer Heart disease Father Hypertension Diabetes Son Heart disease Surgical History History of angioplasty of peripheral vessel (06/28/14) History of atherectomy History of cardioversion (08/21/16) History of colonoscopy (01/2019) History of coronary artery stent placement (03/20/22) History of inguinal hernia repair 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) History of transurethral resection of prostate (01/2019) Status post biopsy of thyroid gland (09/2019) Social History household members: spouse Smoking Status: Former smoker quit date: 08/04/69 pack-years: 10 alcohol intake: current alcohol intake frequency: a few times a month substance use type: does not use ROS ROS ED Constitutional Constitutional ED: Denies chills or fever(s) ENT ENT ED: Reports rhinorrhea; Denies sore throat Cardiovascular Cardiovascular: Denies chest pain, palpitations or racing heartbeat Respiratory/Chest Respiratory/Chest: Reports cough and dyspnea Gastrointestinal Gastrointestinal: Denies abdominal pain, diarrhea, nausea or vomiting Genitourinary Genitourinary ED: Denies dysuria Musculoskeletal Musculoskeletal: Reports other Details: Positive left foot pain Integumentary Denies rash Neurologic Neurologic: Denies headache(s) Hematologic/Lymphatic Hematologic/Lymphatic: Reports easy bleeding and easy bruising EXAM Physical Exam Const Vital Signs: 12/30/22 03:39 12/30/22 03:42 Temperature 97.8 F Temperature Source Temporal Pulse Rate 97 Respiratory Rate 25 H Respiratory Effort Short of Breath Respiratory Depth Normal Respiratory Pattern Normal Blood Pressure 136/91 H Blood Pressure Mean 106 Pulse Ox 98 Oxygen Delivery Method Room Air Room Air Positive well nourished and well developed General Appearance ED: well developed HEENT Reports moist mucous membranes HEENT Narrative: Nasal mucosa is hyperemic and boggy and there is cobblestoning the posterior pharynx consistent with sinus drainage. No airway edema or compromise Eyes PERRL and EOMs intact bilaterally Neck supple and no JVD Chest Wall palpation of chest normal Chest Narrative: No bony deformity or crepitance of the chest wall Resp Resp Narrative: Breath sounds are diminished throughout but overall clear to auscultation without nasal flaring or retractions or accessory muscle use there is slight tachypnea noted Cardio Rate: other Other Details: Irregularly irregular rhythm with regular rate consistent with history of atrial fibrillation. There is a grade 5 out of 6 systolic murmur noted GI normal to inspection, nondistended, normoactive bowel sounds, non-tender, non-distended and no masses GI Narrative: No voluntary guarding or rigidity no pulsatile mass or fluid wave Auscultation: normoactive bowel sounds Palpation: soft Extremity Extremity Narrative: No asymmetric edema no pitting edema negative Homans' sign bilaterally Neuro oriented x3 and CN's II-XII intact bilaterally Sensorium / Orientation: alert Psych mental status grossly normal Skin no rashes or lesions noted MDM MDM MDM Narrative Medical decision making narrative: Patient presented to the ER slightly tachypneic but otherwise in no respiratory distress talking in full sentences and satting 95 to 100% on room air. With his recent surgery and history of A-fib differential includes pleural effusion pneumonia pulmonary embolus or pneumothorax or possible viral upper respiratory infection. Secondary to his recent procedure and chronic medical conditions basic blood work was obtained as well as a chest x-ray. Labs showed no clinically significant findings such as anemia or chronic kidney disease. There was mild elevation to the proBNP but he had no outward findings for congestive heart failure such as JVD or peripheral edema. Chest x-ray question pleural effusion however and therefore a CT was obtained which did not display any type of pulmonary embolus or infection. There were changes consistent with pulmonary edema/pleural effusion. Therefore patient will be given Lasix and started on this at home. However as he is in no respiratory distress and satting in the high 90s on room air he is otherwise safe for discharge History & Record Review Discussion w/independent historian: Patient and Significant other Lab Data Attestation: I reviewed the patient's lab results. Labs: Laboratory Results - last 24 hr 12/30/22 12/30/22 12/30/22 03:45 03:45 03:45 WBC 7.8 RBC 4.23 L Hgb 12.2 L Hct 39.2 L MCV 92.7 MCH 28.8 MCHC 31.1 L RDW Std Deviation 48.4 H RDW Coeff of Danis 14.3 Plt Count 454 H MPV 9.6 Immature Gran % (Auto) 0.400 Neut % (Auto) 67.3 Lymph % (Auto) 23.0 [place] % (Auto) 7.1 Eos % (Auto) 1.1 Baso % (Auto) 1.1 H Absolute Neuts (auto) 5.3 Absolute Lymphs (auto) 1.80 Nucleated RBC % 0 Sodium 139 Potassium 4.5 Chloride 104 Carbon Dioxide 26.0 Anion Gap 9 BUN 18 Creatinine 1.04 Estim Creat Clear Calc 51.32 Est GFR (MDRD) Af Amer 88 Est GFR (MDRD) Non-Af 73 BUN/Creatinine Ratio 17.3 Glucose 209 H Calcium 9.1 Magnesium 1.7 B-Natriuretic Peptide 597.9 H Radiography Diagnostic Testing: Clinical Impression(s) from Imaging Studies Chest X-Ray 12/30/22 04:05 IMPRESSION: Ill-defined subpleural groundglass opacities are seen more prominent in the perihilar regions and lung bases , may represent atypical pneumonia or pulmonary edema. Further evaluation by CT scan would be helpful. There is possible small left pleural effusion. Electronically Signed: Marisel Reid MD at 4:21 EDT , Chest CTA 12/30/22 04:25 IMPRESSION: CHF. No demonstrated pulmonary embolism or arterial dissection. Electronically Signed: Marisel Reid MD at 5:36 EDT , Chest x-ray as interpreted by the emergency medicine physician displays subpleural groundglass opacities in the hilar and lung bases which could indicate atypical pneumonia versus pulmonary edema Discharge Plan Triage Chief Complaint: Shortness of Breath ED Provider: Bruce Mckeon Dx/Rx/DC Orders Clinical Impression: Congestive heart failure, Pleural effusion, Type 2 diabetes mellitus, Longstanding persistent atrial fibrillation, Current use of snf anticoagulation Instructions: Coping with Heart Failure, ED Pleural Effusion Prescriptions: New furosemide [Lasix] 20 mg tablet 20 mg PO DAILY 30 Days Qty: 30 0RF No Action atorvastatin 80 mg tablet 80 mg PO QHS lamotrigine 200 mg tablet 200 mg PO BID metformin 500 mg tablet extended release 24 hr 1,000 mg PO BID clopidogrel 75 mg tablet 75 mg PO DAILY isosorbide mononitrate 60 mg tablet extended release 24 hr 60 mg PO DAILY pantoprazole 40 mg tablet,delayed release (DR/EC) 40 mg PO DAILY [id number] Tablet See Rx Instructions PO .COMPLEX Rx Instructions: orally po; tamsulosin 0.4 mg capsule 0.8 mg PO DAILY cholecalciferol (vitamin D3) 50 mcg (2,000 unit) capsule 50 mcg PO DAILY cinnamon bark [Cinnamon] 500 mg capsule 500 mg PO DAILY Eliquis 5 mg tablet 5 mg PO BID metoprolol tartrate 75 mg tablet 50 mg PO BID nitroglycerin 0.4 MG tablet, sublingual 0.4 mg SUBLINGUAL Q5M PRN (Reason: Chest Pain) finasteride 5 MG tablet 5 mg PO DAILY magnesium oxide 400 MG tablet 400 mg PO DAILY Ozempic 2 mg/dose (8 mg/3 mL) pen injector 8 mg SUBCUT QWEEK Rx Instructions: Wednesdays doxycycline monohydrate 100 mg tablet 100 mg PO BID 42 Days Qty: 84 0RF amoxicillin-pot clavulanate 875-125 mg tablet 1 tab PO BID 42 Days Qty: 84 0RF Primary Care Provider: Jerry Dee Referrals: Jerry Dee MD [Primary Care Provider] - Activity Restrictions/Additional Instructions: Your work-up today shows you have fluid within your lungs. This is not an infection but simply fluid buildup. Take the Lasix as directed to help resolve this and try to sleep in a recliner so that gravity will keep the fluid in the lower portion of your lung and make it easier to breathe. Please follow-up with your family doctor to discuss need for medication adjustment or repeat laboratory values and return to the ER should you have any further concerns. Disposition Disposition: Home, Self Care
[2022-12-30 05:55] VITALS: BP 151/96; PULSE 95; RESP 20; O2SAT 96
[2022-12-30] MEDS: Furosemide 40 MG/4 ML Vial IV (06:05)
== END 2022-12-30 06:18 | disposition home or self-care (01) ==
PROVIDERS: Emergency Provider Emergency Medicine; PCP Family Medicine; Visit Provider Emergency Medicine
DX: I50.9 Heart failure, unspecified (principal); E11.42 Type 2 diabetes mellitus with diabetic polyneuropathy; E11.22 Type 2 diabetes mellitus with diabetic chronic kidney disease; I48.0 Paroxysmal atrial fibrillation; I48.11 Longstanding persistent atrial fibrillation; J90 Pleural effusion, not elsewhere classified; I25.10 Atherosclerotic heart disease of native coronary artery without angina pectoris; N18.9 Chronic kidney disease, unspecified; I25.2 Old myocardial infarction; Z87.891 Personal history of nicotine dependence; Z95.5 Presence of coronary angioplasty implant and graft; Z79.01 Long term (current) use of anticoagulants
CPT/HCPCS: 71045; 71275; 80048; 83735; 83880; 85025; 96374; 99282; Q9967; A4216; J1940

== ENCOUNTER → 2023-01-10 | Outpatient (CLI) | payer MEDICARE, OTHER, SELFPAY ==
--- NOTE | 2023-01-10 13:19 | ADUL_ITS ---
Reason For Study: S/P left popliteal stent Left Velocities Ext Iliac Artery, dist = 31 cm./sec. Common Femoral Artery, mid = 46.5 cm./sec. Supf. Femoral Artery, prox = 15 cm./sec. Supf. Femoral Artery, mid = 13 cm./sec. SFA mid/distal, prox to stent, 10.6 cm/sec. SFA distal - Nanette prox Stent, No flow. Nanette mid-distal, No flow. Profunda Femoral Artery = 52.7 cm./sec. Post. Tibial Artery, prox = 18.9 cm./sec. Post Tibial Artery, mid = 14.9 cm./sec. Post Tibial Artery, dist. = 28.2 cm./sec. Peroneal Artery, prox = 10.4 cm./sec. Peroneal Artery, mid = 17.9 cm./sec. Peroneal Artery,dist. = 16.7 cm./sec. CLAUDIA, No flow. Procedure Exam performed in department. /US Art Duplex Unilat Lower Ext Interpretation Summary Occluded left SFA/popliteal stent Ordering Physician: Wong Camp Referring Physician: Jerry Dee Performed By: Angela Garcia RVT
--- NOTE | 2023-01-10 13:19 | ART_ITS ---
Reason For Study: S/P left popliteal stent Procedure A bilateral lower extremity continuous wave Doppler with analog waveform analysis and ankle brachial indexes. Left Segmental Pressures Left brachial= 107mmHg. Left posterior tibial artery = >254mmHg. Left dorsalis pedis artery = 53mmHg. The left dorsalis pedis waveforms are monophasic. The left posterior tibial artery waveforms are monophasic. Right Segmental Pressures Right brachial= 100mmHg. Right posterior tibial artery = >254mmHg. Right dorsalis pedis artery = >254mmHg. Right digit = 55 mmHg. The right dorsalis pedis waveforms are biphasic. The right posterior tibial artery waveforms are biphasic. Indices The right ankle brachial index by the dorsalis pedis is NC. The right ankle brachial index by the posterior tibial artery is NC. The right digital-brachial index is 0.51. The left ankle brachial index by the dorsalis pedis is 0.50. The left ankle brachial index by the posterior tibial artery is NC. VL/Ankle Brachial Index Interpretation Summary Right PAYAL unable to be obtained due to non compressible vessels. TBI and Dopple r/PVR waveforms of the right ankle mildly diminished. Left PAYAL 0.5, severe arterial insufficiency. Doppler/PVR waveforms of the left ankle severely diminished Ordering Physician: Wong Camp Referring Physician: Jerry Dee Performed By: Angela Garcia RVT
== END | disposition home or self-care (01) ==
LOC: CVS 13:02
PROVIDERS: PCP Family Medicine; Referring Provider Surgery Trauma Surgery; Visit Provider Surgery Trauma Surgery
DX: I70.262 Atherosclerosis of native arteries of extremities with gangrene, left leg (principal)
CPT/HCPCS: 93922; 93926

== ENCOUNTER → 2023-01-15 | Outpatient (CLI) | payer MEDICARE, OTHER, SELFPAY ==
[2023-01-15 18:36] LABS: Erythrocyte Sedimentation Rate 39 mm/hr (0-20)
[2023-01-15 18:38] LABS: Absolute Lymphocyte Count 1.71 X10^3/uL (0.83-4.51); Absolute Neutrophil Count 8.6 X10^3/uL (2.0-7.7); Basophil# 0.05 X10^3/uL; Basophil% 0.5 % (0-1); Eosinophil# 0.08 X10^3/uL; Eosinophils% 0.7 % (0-5); Hematocrit 40.8 % (40-54); Hemoglobin 12.9 g/dL (13.0-16.5); Lymphocyte # 1.71 X10^3/ul (0.83-4.51); Lymphocyte % 15.6 % (19-41); Mean Corp Hgb Conc 31.6 g/dL (32-36); Mean Corpuscular Hgb 28.9 pg (27.0-32.0); Mean Corpuscular Volume 91.5 fL (80-94); Monocyte# 0.52 X10^3/uL; Monocyte% 4.7 % (0-10); NRBC Flagged by Analyzer 0 % (0-5); Neutrophil # 8.57 X10^3/uL (2.7-7.7); Neutrophil % 78.1 % (47-70); Platelet Count 300 K/mm3 (150-450); RBC Distribution Width CV 14.1 % (11.6-14.6); RBC Distribution Width SD 47.7 fl (35.1-43.9); Red Blood Count 4.46 M/mm3 (4.6-6.2)
[2023-01-15 18:47] LABS: Hemoglobin A1c 8.3 % (3.8-5.6)
[2023-01-15 18:58] LABS: ALB/GLOB Ratio 0.8 RATIO (0.9-2.4); AST(SGOT) 16 U/L (15-37); Alanine Aminotransfer ALT/SGPT 25 U/L (16-61); Albumin, Serum 3.1 g/dL (3.2-5.0); Alkaline Phosphatase 107 U/L (45-117); Anion Gap 13 (5-15); BUN 25 mg/dL (7-18); BUN/Creat Ratio 19.1 RATIO (10-20); Calcium,Total 9.7 mg/dL (8.5-10.1); Chloride 100 mmol/L (98-107); Creatinine, Serum 1.31 mg/dL (0.70-1.30); EST Glomerular Filtration Rate 56 mL/min (>60); Est Glom Filt Rate - Afr Amer 68 mL/min (>60); Globulin 4.1 g/dL (2.2-4.2); Glucose 286 mg/dL (74-106); Potassium 4.3 mmol/L (3.5-5.1); Protein, Total 7.2 g/dL (6.4-8.2); Sodium Level 131 mmol/L (136-145)
== END | disposition home or self-care (01) ==
LOC: MTLAB 14:37
PROVIDERS: PCP Family Medicine; Referring Provider Podiatrist; Visit Provider Podiatrist
DX: L97.522 Non-pressure chronic ulcer of other part of left foot with fat layer exposed (principal); E11.621 Type 2 diabetes mellitus with foot ulcer
CPT/HCPCS: 36415; 80053; 83036; 85025; 85652; 86140

== ENCOUNTER 2023-01-22 10:44 | Day surgery (SDC) | payer MEDICARE, OTHER, SELFPAY ==
[2023-01-21 08:38] VITALS: BMI 17.2
--- NOTE | 2023-01-22 16:37 | PCM.OPRPT ---
Report of Operation Date of Procedure: 01/22/23 Pre-Operative Diagnosis: atherosclerosis with non healing wound, left lower extremity Post-Operative Diagnosis: same Surgery/Procedure Performed:: aortogram, LLE runoff IVUS left PT, TP trunk, sfa/popliteal arteries mechanical thrombectomy left sfa/popliteal/TP trunk angioplasty/stent left popliteal/TP trunk angioplasty left SFA Surgeon: Wong Camp Type of Anesthesia: Local and Sedation,Conscious Estimated Blood Loss (mL): 5 Description of Procedure: HPI: Patient is a 77-year-old male with significant atherosclerosis of the left lower extremity with prior interventions. He had a longstanding toe wound which she had avoided any intervention on it which ultimately became infected requiring endovascular revascularization of the SFA popliteal followed by amputation of the digit. Recently he was found to have less robust granulation tissue and diminished pedal signals after which a duplex ultrasound revealed reocclusion of his stents. He is taken now for repeat intervention. Description of procedure: Upon obtaining informed consent and verification correct patient procedure site patient taken the [facility] where he was positioned prepped and draped in usual sterile fashion. Time was then performed conscious sedation ministered with Versed and fentanyl. Skin overlying the right common femoral artery is anesthetized with 1% lidocaine and the vessel accessed in retrograde fashion with a micropuncture needle and wire under ultrasound guidance. This was then exchanged for micropuncture sheath through which injection femoral angiogram revealed satisfactory position with no extravasation or dissection. Through the micropuncture sheath J-wire was advanced and the micropuncture sheath exchanged out for short 6 Cambodian sheath. Through the 6 Cambodian sheath a Omni Flush catheter was advanced abdominal aorta over a glide advantage wire. Subtraction angiography aorta and the iliacs was performed after which the Omni Flush catheter and glide advantage wire was navigated the contralateral iliac system. Catheter was then advanced into the distal external leg artery and this position subtraction angiography performed sequential left lower extremity which confirmed reocclusion of the stent with reconstitution distally. The patient was then heparinized allowed to circulate for 3 minutes with heparin dosing repeated based on ACT results. Next the glide advantage wire was navigated superficial femoral artery ultimately into the above-knee popliteal artery. The catheter was withdrawn and the short 6 Cambodian sheath was exchanged for a long 6 Cambodian sheath. Using the glide advantage wire and quick cross catheter we able to navigate across the occluded stents and advance her catheter into the tibioperoneal trunk. The wires were withdrawn and hand-injection angiography confirmed position within the true lumen beyond the area of occlusion and significant atherosclerosis. A command 14 wire was then advanced via the catheter and positioned in the posterior tibial artery. Intravascular sound probe then advanced over the wire and a recorded pullback of the posterior tibial artery, TP trunk artery, SFA/popliteal artery was performed. This revealed subacute appearing thrombus within the stent but also significant atherosclerosis distal to the stent and the remainder of the popliteal artery and into the first portion of the TP trunk. Ellis that this was likely the reason for failure of the stent and that in addition to thrombectomy that angioplasty and/or stenting of this segment was necessary. Given the more acute appearing thrombus within the stents a jeti aspiration thrombectomy device was brought in field prep for jd edwards instructions. This was then advanced over the wire and engaged across the occluded stents for a total of 3 passes. The device was then withdrawn and repeat angiography confirmed resolution of the total occlusion with only remaining high-grade stenosis of the proximal edge of the stent in the distal popliteal segment below the stent. This did not appear to be thrombus but was rather hyperplasia and/or atherosclerosis. To confirm this the intravascular sound probe was then readvanced into the popliteal artery and assessment confirmed that this was atherosclerosis and intimal hyperplasia with no residual thrombus. Next the TP trunk distal popliteal artery was angioplastied with a 4 mm angiosculpt scoring balloon inflated to nominal for multiple inflations across both vessels and then deflated and withdrawn. This was also used to angioplasty the leading edge of the lesion inflated to nominal and then deflated withdrawn. Repeat angiography revealed improvement in the lumen with no extravasation or dissection. The vessel was then angioplastied with a 5 mm x 40 StellaRex paclitaxel coated angioplasty balloon within the popliteal artery lesion. Next an Dao superior stent 5 mm x 60 was brought to field prep for jd edwards instructions. This was then advanced over the wire and deployed from the mid tibioperoneal trunk throughout the entirety of the unstented portion of the popliteal with satisfactory overlap into the pre-existing stents. The delivery system was then withdrawn a repeat angiography confirmed satisfactory stent placement with brisk contrast transit and no residual stenosis and no extravasation or dissection. Next a Bountiful Viabahn 6 x 50 mm self-expanding covered stent was brought in field for prep for jd edwards instructions. This was then advanced over the wire and deployed at the leading edge of the stent at the location of the recurrent in-stent stenosis. This was then postdilated with a 6 mm x 40 angioplasty balloon inflated to nominal and then deflated withdrawn. There have been additional lesion noted in the mid SFA with 70% stenosis. This was then angioplastied with a 6 x 40 angio sculpt balloon inflated to nominal and then deflated withdrawn. Was then angioplastied with a 6 x 40 Mayra Jl paclitaxel coated balloon. Repeat angiography confirmed satisfactory response with no extravasation dissection or residual stenosis. Further no further intervention was required so the long 6 Cambodian sheath was then exchanged for short 6 Cambodian sheath after which a minx closure device was deployed followed by 2 minutes of manual pressure. The patient was then taken to the PCU for bedrest before discharged home.
[2023-01-22 17:00] VITALS: BP 151/84; PULSE 100; RESP 14; O2SAT 96
[2023-01-22 17:15] VITALS: BP 130/69; PULSE 110; RESP 16; O2SAT 95
[2023-01-22 17:45] VITALS: BP 104/92; PULSE 112; RESP 14; O2SAT 96
[2023-01-22 18:15] VITALS: BP 117/60; PULSE 115; RESP 14; O2SAT 96
[2023-01-22 19:15] VITALS: BP 115/57; PULSE 112; RESP 16; O2SAT 100
[2023-01-22 20:20] VITALS: BP 93/78; PULSE 116; RESP 18; TEMP 36.5; O2SAT 98
[2023-01-23 06:16] LABS: ACT Activated Clotting Time 269 sec (74-137)
[2023-01-23 06:17] LABS: ACT Activated Clotting Time 233 sec (74-137)
[2023-01-23 06:18] LABS: ACT Activated Clotting Time 245 sec (74-137)
== END 2023-01-22 20:45 | disposition home or self-care (01) ==
LOC: CLSP 10:47 → PCU 01-23 10:11
PROVIDERS: PCP Family Medicine; Referring Provider Surgery Trauma Surgery; Visit Provider Surgery Trauma Surgery
DX: I70.25 Atherosclerosis of native arteries of other extremities with ulceration (principal); E11.51 Type 2 diabetes mellitus with diabetic peripheral angiopathy without gangrene; I13.0 Hypertensive heart and chronic kidney disease with heart failure and stage 1 through stage 4 chronic kidney disease, or unspecified chronic kidney disease; I50.32 Chronic diastolic (congestive) heart failure; I42.8 Other cardiomyopathies; E11.22 Type 2 diabetes mellitus with diabetic chronic kidney disease; I48.11 Longstanding persistent atrial fibrillation; N18.9 Chronic kidney disease, unspecified; I25.2 Old myocardial infarction; N40.0 Benign prostatic hyperplasia without lower urinary tract symptoms; E78.5 Hyperlipidemia, unspecified; Z95.5 Presence of coronary angioplasty implant and graft; Z79.84 Long term (current) use of oral hypoglycemic drugs; Z79.899 Other long term (current) drug therapy; Z79.01 Long term (current) use of anticoagulants; Z87.891 Personal history of nicotine dependence
CPT/HCPCS: 36246; 36200; 36245; 37184; 37226; 37230; 37252; 37253; 75625; 75710; 76937; 85347; 99152; 99153; C1725; C1753; C1760; C1769; C1874; C2623; J7040; Q9967; C1757; C1876; C1887; C1894

== ENCOUNTER 2023-01-28 19:35 | Emergency (ER) | payer MEDICARE, OTHER, SELFPAY ==
[2023-01-28 19:36] VITALS: BP 123/81; PULSE 80; RESP 16; TEMP 36.4; O2SAT 100
[2023-01-28 19:46] VITALS: BMI 17.9
--- NOTE | 2023-01-28 19:57 | ED.VIS.LOWEX ---
HPI History of Present Illness Chief Complaint: Wound Informant: patient Narrative Narrative: Patient presents with bleeding from the base of his left foot. Patient's had a wound that has not been healing well in the foot. He had a stent placed in the left leg due to peripheral vascular disease. This had occluded. He just had this leg restented on Friday. They went in the right groin. He has been doing very well from this. He saw his forestry biology specialist today who did procedure of cleaning out the wound in the office. There was some bleeding with this which is expected. But it was dressed and the patient was doing well. But since going home he has been bleeding through gauze. When he stands up he gets bleeding that spots the carpet. He does not feel lightheaded or weak. But he is on both Eliquis and Plavix. 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 Anemia Atherosclerosis of coronary artery of [place] heart without angina pectoris Atrial fibrillation BPH (benign prostatic hyperplasia) Cellulitis of foot, left Chronic diastolic (congestive) heart failure Chronic kidney disease Diabetes Erectile dysfunction Essential (primary) hypertension History of non-ST elevation myocardial infarction (NSTEMI) (08/26/16) Hyperlipidemia Inguinal hernia of right side without obstruction or gangrene Iron deficiency anemia Kidney disease Longstanding persistent atrial fibrillation Multinodular goiter Non-ischemic cardiomyopathy 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 Non-pressure chronic ulcer of other part of left foot with fat layer exposed Nonrheumatic aortic (valve) stenosis Paroxysmal atrial fibrillation Partial seizure disorder Peripheral vascular disease, unspecified Peripheral vascular occlusive disease Pre-syncope Seizures Syncope Type 2 diabetes mellitus Type 2 diabetes mellitus with diabetic polyneuropathy Type 2 diabetes mellitus with foot ulcer Type 2 diabetes mellitus with left diabetic foot infection Urinary retention Urinary retention due to benign prostatic hyperplasia Ventral incisional hernia without obstruction or gangrene Wound of foot Home Medications atorvastatin 80 mg tablet 80 mg PO QHS cholesterol 07/21/18 [History Last Taken 12/09/22] lamotrigine 200 mg tablet 200 mg PO BID seizures 07/21/18 [History Last Taken 12/10/22 08:00] metformin 500 mg tablet,extended release 24 hr 1,000 mg PO BID diabetes 07/21/18 [History Last Taken 12/10/22 08:00] finasteride 5 mg tablet 5 mg PO DAILY prostate 08/07/20 [History Last Taken 12/10/22 08:00] magnesium oxide 400 mg PO DAILY supplement 08/07/20 [History Last Taken 12/10/22 08:00] nitroglycerin 0.4 mg sublingual tablet 0.4 mg sublingual Q5M PRN Chest Pain 08/07/20 [History Last Taken Unknown] clopidogrel 75 mg tablet 75 mg PO DAILY Check with primary doctor 03/25/22 [History Last Taken 12/10/22 08:00] isosorbide mononitrate 60 mg tablet,extended release 24 hr 60 mg PO DAILY heart 03/25/22 [History Last Taken 12/10/22 08:00] pantoprazole 40 mg tablet,delayed release 40 mg PO DAILY stomach 03/25/22 [History Last Taken 12/10/22 08:00] apixaban 5 mg tablet (Eliquis) 5 mg PO BID blood thinner 05/09/22 [History Last Taken 12/10/22 08:00] aipjmlo-llmevamsp-segw tablet See Rx Instructions PO .COMPLEX supplement 05/09/22 [History Last Taken Unknown] cholecalciferol (vitamin D3) 50 mcg (2,000 unit) capsule 50 mcg PO DAILY supplement 05/09/22 [History Last Taken 12/10/22 08:00] cinnamon bark 500 mg capsule (Cinnamon) 500 mg PO DAILY supplement 05/09/22 [History Last Taken 12/10/22 08:00] metoprolol tartrate 75 mg tablet 50 mg PO BID heart/blood pressure 05/09/22 [History Last Taken 12/10/22 08:00] tamsulosin 0.4 mg capsule 0.8 mg PO DAILY urination 05/09/22 [History Last Taken 12/10/22 08:00] semaglutide 2 mg/dose (8 mg/3 mL) subcutaneous pen injector (Ozempic) 8 mg subcut QWEEK dm 12/10/22 [History Last Taken 12/03/22] amoxicillin 875 mg-potassium clavulanate 125 mg tablet 1 tab PO BID 6 weeks #84 tabs 12/18/22 [Rx Last Taken Unknown] doxycycline monohydrate 100 mg tablet 100 mg PO BID 6 weeks #84 tabs 12/18/22 [Rx Last Taken Unknown] furosemide 20 mg tablet (Lasix) 20 mg PO DAILY 30 days #30 tabs 12/30/22 [Rx Last Taken Unknown] Allergy/AdvReac Type Severity Reaction Status Date / Time carbamazepine [From Tegretol] Allergy Rash Verified 01/28/23 19:35 Family History Mother Cancer Heart disease Father Hypertension Diabetes Son Heart disease Surgical History History of angioplasty of peripheral vessel (06/28/14) History of atherectomy History of cardioversion (08/21/16) History of colonoscopy (01/2019) History of coronary artery stent placement (03/20/22) History of inguinal hernia repair 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) History of transurethral resection of prostate (01/2019) Status post biopsy of thyroid gland (09/2019) Social History household members: spouse Smoking Status: Former smoker quit date: 08/04/69 pack-years: 10 alcohol intake: current alcohol intake frequency: a few times a month substance use type: does not use ROS ROS ED Constitutional Constitutional ED: Denies chills or fever(s) Cardiovascular Cardiovascular: Denies chest pain or palpitations Respiratory/Chest Respiratory/Chest: Denies cough or dyspnea Gastrointestinal Gastrointestinal: Denies nausea or vomiting Genitourinary Genitourinary ED: Denies hematuria Musculoskeletal Musculoskeletal: Reports other Details: Bleeding from left foot as in history of present illness. Integumentary Reports other Details: Open area in the bottom of the left foot Hematologic/Lymphatic Hematologic/Lymphatic: Reports easy bleeding and easy bruising EXAM Physical Exam Narrative Exam Narrative: Patient awake alert no acute distress sitting comfortably in bed. Patient is a very good informant for details. HEENT shows no trauma. No notable pallor. Heart sounds regular. Lungs are clear and saturations at 100% on room air showing no hypoxia. Abdomen is soft nontender I looked at the access site in the right groin and it is clean dry and intact no sign of swelling or bleeding in that area. Extremities left extremity actually feels warm like he has good blood supply. But is not red. Does not look infected. He had dressings on the bottom of the foot that had some blood staining on them. I also looked at some dressings that were brought in that had blood. We peeled the layers off the dressing. I poured water on this to soften it. I was able to get the dressing off. There is no active bleeding at this time. But I can see in the midportion laterally of this wound that there is fresh clot. This looks like the area from which she was bleeding. This is also the area that had the red spot on the bandage when I was taking it off. No odor or drainage. The wound overall looks well. Const Vital Signs: 01/28/23 19:36 Temperature 97.6 F L Temperature Source Temporal Pulse Rate 80 Respiratory Rate 16 Blood Pressure 123/81 H Blood Pressure Mean 95 Pulse Ox 100 MDM MDM MDM Narrative Medical decision making narrative: We cleaned and rinsed the area. It was patted dry. We then placed Surgifoam over the area that was bleeding. We then placed a nonadherent dressing over that. We then placed a folded ABD bandage and wrapped gently with Kerlix. We are letting this rest and it will be rechecked. Patient is rechecked several times here. He has had no bleeding at all into the dressing. I think he is okay to go home. This will be kept wrapped up. Certainly if he has further bleeding they can return. I expect that there will be some oozing because of the meds that he is on but as long as its not heavy I think he is okay. He has follow-up with visiting nurse on and Friday and he has an appointment with his forestry biology specialist on Friday. Discharge Plan Triage Chief Complaint: Wound ED Provider: Claude Chawla Dx/Rx/DC Orders Clinical Impression: Postoperative wound hemorrhage, Coagulopathy Instructions: ED Post Op Wound Check, Bleeding Prescriptions: No Action atorvastatin 80 mg tablet 80 mg PO QHS lamotrigine 200 mg tablet 200 mg PO BID metformin 500 mg tablet extended release 24 hr 1,000 mg PO BID clopidogrel 75 mg tablet 75 mg PO DAILY isosorbide mononitrate 60 mg tablet extended release 24 hr 60 mg PO DAILY pantoprazole 40 mg tablet,delayed release (DR/EC) 40 mg PO DAILY [id number] Tablet See Rx Instructions PO .COMPLEX Rx Instructions: orally po; tamsulosin 0.4 mg capsule 0.8 mg PO DAILY cholecalciferol (vitamin D3) 50 mcg (2,000 unit) capsule 50 mcg PO DAILY cinnamon bark [Cinnamon] 500 mg capsule 500 mg PO DAILY Eliquis 5 mg tablet 5 mg PO BID metoprolol tartrate 75 mg tablet 50 mg PO BID nitroglycerin 0.4 MG tablet, sublingual 0.4 mg SUBLINGUAL Q5M PRN (Reason: Chest Pain) finasteride 5 MG tablet 5 mg PO DAILY magnesium oxide 400 MG tablet 400 mg PO DAILY Ozempic 2 mg/dose (8 mg/3 mL) pen injector 8 mg SUBCUT QWEEK Rx Instructions: Wednesdays doxycycline monohydrate 100 mg tablet 100 mg PO BID 42 Days Qty: 84 0RF amoxicillin-pot clavulanate 875-125 mg tablet 1 tab PO BID 42 Days Qty: 84 0RF furosemide [Lasix] 20 mg tablet 20 mg PO DAILY 30 Days Qty: 30 0RF Primary Care Provider: Jerry Dee Referrals: Jerry Dee MD [Primary Care Provider] - Activity Restrictions/Additional Instructions: Follow-up with your forestry biology specialist. Keep dressing on until the visiting nurse arrives on . Keep the foot elevated is much as possible. Disposition Disposition: Home, Self Care Discharge Date/Time: 01/28/23 21:36
[2023-01-28] MEDS: Gelatin Sponge Absorbable 50cm (1) 1 EACH TOPICAL (20:13)
== END 2023-01-28 21:36 | disposition home or self-care (01) ==
PROVIDERS: Emergency Provider Emergency Medicine; PCP Family Medicine; Visit Provider Emergency Medicine
DX: S91.302A Unspecified open wound, left foot, initial encounter (principal); I50.32 Chronic diastolic (congestive) heart failure; D68.9 Coagulation defect, unspecified; I25.10 Atherosclerotic heart disease of native coronary artery without angina pectoris; N18.9 Chronic kidney disease, unspecified; Z87.891 Personal history of nicotine dependence; Z79.01 Long term (current) use of anticoagulants; X58.XXXA Exposure to other specified factors, initial encounter
CPT/HCPCS: 99283

== ENCOUNTER 2023-01-30 22:34 | Inpatient (IN) | payer MEDICARE, OTHER, SELFPAY ==
[2023-01-30 22:35] VITALS: BP 141/115; PULSE 66; RESP 18; TEMP 37.1; O2SAT 95; BMI 18.6
--- NOTE | 2023-01-30 23:00 | RAD_ITS ---
INDICATION: pain, wound EXAMINATION/TECHNIQUE: X-RAY - LEFT XR Foot Min 3 Views COMPARISON: 12/10/2022. FINDINGS: SOFT TISSUES: No evidence of soft tissue gas. BONES/JOINTS: Status post amputation at the proximal to mid metatarsals. Vascular calcifications. No fracture or dislocation. RAD/Foot min 3 Views IMPRESSION: No evidence of osteomyelitis or soft tissue gas. Electronically Signed: Bakari Palma DO at 0:11 EDT ,
--- NOTE | 2023-01-30 23:00 | EKG12_ITS ---
Test Reason : DYSRHYTHMIA Blood Pressure : / mmHG Vent. Rate : 160 BPM Atrial Rate : 174 BPM P-R Int : 000 ms QRS Dur : 096 ms QT Int : 284 ms P-R-T Axes : 000 -60 082 degrees QTc Int : 463 ms Atrial fibrillation Left axis deviation Septal infarct , age undetermined Abnormal ECG Confirmed by ANA NG, LAUREN ([id number]), sports editor SANDY GOMES ([id number]) on 02/03/2023 12:56:55 PM Referred By: Catherine Macias Confirmed By:LAUREN PEREZ MD
--- NOTE | 2023-01-30 23:00 | RAD_ITS ---
INDICATION: cough sob fever EXAMINATION/TECHNIQUE: X-RAY - XR Chest 1 View COMPARISON: 12/30/2022. FINDINGS: LINES/DEVICES: None. LUNGS: No consolidation or evidence of an effusion. No evidence of edema or a pneumothorax. MEDIASTINUM AND CARDIOVASCULAR STRUCTURES: Cardiac silhouette is normal in size and contour. Mediastinum is unremarkable. BONES AND SOFT TISSUES: No acute abnormality. RAD/Chest 1 View (Portable) IMPRESSION: No evidence of acute cardiopulmonary disease. Electronically Signed: Bakari Palma DO at 0:17 EDT ,
--- NOTE | 2023-01-30 23:02 | EX.ED.DYSGE1 ---
HPI History of Present Illness Chief Complaint: Weakness Informant: patient, spouse/S.O. and family (son) Narrative Narrative: Patient weak, fevers, vomiting today. He has had a wound on his left foot, he has been seeing Dr. Baxter with podiatry for this, he is anticoagulated had significant bleeding and was seen here 2 days ago to get a packing placed and bleeding controlled. Also this week he had a stent placed in his left leg to enhance blood flow down to his foot. Following with the vascular surgeon Dr. Jeff in [place] and Dr. Camp here for that. Has had a cough that has been worse lately along with some occasional dyspnea. Nonproductive. No chest pain. Vomiting but no abdominal pain or diarrhea or blood in his vomit or stools. No urinating normally. Weakness is nonfocal. mentioning something about possibly more fluid on his lungs. 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 Anemia Atherosclerosis of coronary artery of [place] heart without angina pectoris Atrial fibrillation BPH (benign prostatic hyperplasia) Cellulitis of foot, left Chronic diastolic (congestive) heart failure Chronic kidney disease Diabetes Erectile dysfunction Essential (primary) hypertension History of non-ST elevation myocardial infarction (NSTEMI) (08/26/16) Hyperlipidemia Inguinal hernia of right side without obstruction or gangrene Iron deficiency anemia Kidney disease Longstanding persistent atrial fibrillation Multinodular goiter Non-ischemic cardiomyopathy 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 Non-pressure chronic ulcer of other part of left foot with fat layer exposed Nonrheumatic aortic (valve) stenosis Paroxysmal atrial fibrillation Partial seizure disorder Peripheral vascular disease, unspecified Peripheral vascular occlusive disease Pre-syncope Seizures Syncope Type 2 diabetes mellitus Type 2 diabetes mellitus with diabetic polyneuropathy Type 2 diabetes mellitus with foot ulcer Type 2 diabetes mellitus with left diabetic foot infection Urinary retention Urinary retention due to benign prostatic hyperplasia Ventral incisional hernia without obstruction or gangrene Wound of foot Home Medications atorvastatin 80 mg tablet 80 mg PO QHS cholesterol 07/21/18 [History Last Taken 12/09/22] lamotrigine 200 mg tablet 200 mg PO BID seizures 07/21/18 [History Last Taken 12/10/22 08:00] metformin 500 mg tablet,extended release 24 hr 1,000 mg PO BID diabetes 07/21/18 [History Last Taken 12/10/22 08:00] finasteride 5 mg tablet 5 mg PO DAILY prostate 08/07/20 [History Last Taken 12/10/22 08:00] magnesium oxide 400 mg PO DAILY supplement 08/07/20 [History Last Taken 12/10/22 08:00] nitroglycerin 0.4 mg sublingual tablet 0.4 mg sublingual Q5M PRN Chest Pain 08/07/20 [History Last Taken Unknown] clopidogrel 75 mg tablet 75 mg PO DAILY Check with primary doctor 03/25/22 [History Last Taken 12/10/22 08:00] isosorbide mononitrate 60 mg tablet,extended release 24 hr 60 mg PO DAILY heart 03/25/22 [History Last Taken 12/10/22 08:00] pantoprazole 40 mg tablet,delayed release 40 mg PO DAILY stomach 03/25/22 [History Last Taken 12/10/22 08:00] apixaban 5 mg tablet (Eliquis) 5 mg PO BID blood thinner 05/09/22 [History Last Taken 12/10/22 08:00] fvqshhs-aqsvurtab-mnga tablet See Rx Instructions PO .COMPLEX supplement 05/09/22 [History Last Taken Unknown] cholecalciferol (vitamin D3) 50 mcg (2,000 unit) capsule 50 mcg PO DAILY supplement 05/09/22 [History Last Taken 12/10/22 08:00] cinnamon bark 500 mg capsule (Cinnamon) 500 mg PO DAILY supplement 05/09/22 [History Last Taken 12/10/22 08:00] metoprolol tartrate 75 mg tablet 50 mg PO BID heart/blood pressure 05/09/22 [History Last Taken 12/10/22 08:00] tamsulosin 0.4 mg capsule 0.8 mg PO DAILY urination 05/09/22 [History Last Taken 12/10/22 08:00] semaglutide 2 mg/dose (8 mg/3 mL) subcutaneous pen injector (Ozempic) 8 mg subcut QWEEK dm 12/10/22 [History Last Taken 12/03/22] amoxicillin 875 mg-potassium clavulanate 125 mg tablet 1 tab PO BID 6 weeks #84 tabs 05/17/23 [Rx Last Taken Unknown] doxycycline monohydrate 100 mg tablet 100 mg PO BID 6 weeks #84 tabs 12/18/22 [Rx Last Taken Unknown] furosemide 20 mg tablet (Lasix) 20 mg PO DAILY 30 days #30 tabs 12/30/22 [Rx Last Taken Unknown] Allergy/AdvReac Type Severity Reaction Status Date / Time carbamazepine [From Tegretol] Allergy Rash Verified 01/28/23 19:35 Family History Mother Cancer Heart disease Father Hypertension Diabetes Son Heart disease Surgical History History of angioplasty of peripheral vessel (06/28/14) History of atherectomy History of cardioversion (08/21/16) History of colonoscopy (01/2019) History of coronary artery stent placement (03/20/22) History of inguinal hernia repair 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) History of transurethral resection of prostate (01/2019) Status post biopsy of thyroid gland (09/2019) Social History household members: spouse Smoking Status: Former smoker quit date: 08/04/69 pack-years: 10 alcohol intake: current alcohol intake frequency: a few times a month substance use type: does not use ROS ROS ED Constitutional Constitutional ED: Reports chills, fever(s) and weakness; Denies headache(s) Eyes Eyes: Denies change in vision or diplopia ENT ENT ED: Denies rhinorrhea or sore throat Cardiovascular Cardiovascular: Denies chest pain or palpitations Respiratory/Chest Respiratory/Chest: Reports cough and dyspnea; Denies sputum Gastrointestinal Gastrointestinal: Reports nausea and vomiting; Denies abdominal pain or diarrhea Genitourinary Genitourinary ED: Denies dysuria or hematuria Musculoskeletal Musculoskeletal: Denies back pain or neck pain Integumentary Reports wounds and other Details: Dressing on left foot changed 2 or 3 days ago in ER and they have not changed it since. ; Denies abscess or rash Neurologic Neurologic: Denies headache(s), paresthesias or weakness Psychiatric Psychiatric: Denies anxiety or suicidal thoughts EXAM Physical Exam Const Vital Signs: 01/30/23 22:35 01/30/23 23:32 01/30/23 23:32 Temperature 98.7 F 99 F Temperature Source Temporal Oral Pulse Rate 66 162 H Respiratory Rate 18 20 H Respiratory Effort Respiratory Pattern Blood Pressure 141/115 H 89/60 L Blood Pressure Mean 123 69 Pulse Ox 95 94 Oxygen Delivery Method Room Air Room Air Room Air 01/30/23 23:49 01/31/23 00:00 Temperature 99 F Temperature Source Oral Pulse Rate 155 H Respiratory Rate 17 Respiratory Effort Normal Respiratory Pattern Tachypnea Blood Pressure 86/56 L Blood Pressure Mean 66 Pulse Ox 100 Oxygen Delivery Method Room Air Positive well nourished and well developed General Appearance ED: well developed and NAD HEENT Reports moist mucous membranes normocephalic and atraumatic Eyes PERRL and EOMs intact bilaterally Neck full ROM, no lymphadenopathy, supple and no JVD Chest Wall inspection of chest normal and palpation of chest normal Resp normal respiratory effort Resp Narrative: Possibly a few rhonchi in the left base, diminished throughout, otherwise clear without distress. Cardio Rate: tachycardic Rhythm: abnormal rhythm irregularly irregular Heart Sounds: murmur systolic I/ soft GI non-tender and non-distended Auscultation: normoactive bowel sounds Palpation: soft Back/Spine no CVA tenderness General Back: other FROM Extremity Extremity Narrative: Mild tenderness around large open wound with lots of granulation tissue that is foul-smelling at the plantar aspect of the left mid and forefoot. Dorsally it looks okay, there is no erythema or active discharge or bleeding. Status post transtarsal amputation. Tissues appears well perfused without any sign of necrosis or cyanosis. General Extremety ED: Yes tenderness; Negative for edema or pulses abnormal General Extremity: Negative for edema or pulses abnormal Neuro oriented x3, CN's II-XII intact bilaterally and no sensory deficits noted Sensorium / Orientation: awake and alert Motor Exam: general weakness Psych mental status grossly normal Skin no rashes or lesions noted Skin Narrative: See above for left foot wound, no other wounds seen Sepsis Attestation Sepsis Alert: Yes Sepsis Attestation: Agree w/Sepsis Date exam was performed: 01/31/23 Time exam was performed: 00:29 Possible Source of Sepsis: Pulmonary, Bone/joint, Skin/soft tissue and Wound Sepsis Organ Dysfunction Criteria Present: SBP < 90 mmHg or MAP < 65 mmHg and Lactic Acid > 2 mmol/L Fluid Resuscitation Fluid resuscitation indicated?: Yes Fluid Resuscitation ordered: 30 ml/kg fluid bolus ordered Amount of fluid ordered: 2,000 MDM MDM MDM Narrative Medical decision making narrative: Septic work-up obtained, patient turned out to be septic. His lactic acid is 3.4, significant leukocytosis, his hemoglobin is down and I think this is probably from the recent bleeding that he was seen here for, his bicarb is 20, his blood pressure dropped to 86/56, at which point we started bolusing with fluids, after I got his BNP back, considering fluid overload given the history, it is high but not very high, and I reviewed his old echocardiogram from December, it shows normal systolic function, making me more comfortable giving him fluids for this hypotension. Clinically he is looking well, he is tachycardic. I am treating all of that and giving him Zosyn and vancomycin, since his chest x-ray 1 view was unremarkable for pneumonia, and I suspect that this infection in his foot is causing his sepsis right now. Will discuss with hospitalist for admission. X-rays of the left foot did not show radiographic evidence of osteo-, but I am covering him for that. History & Record Review Additional record(s) reviewed:: Prior outpatient record and Prior labs Lab Data Attestation: I reviewed the patient's lab results. Labs: Laboratory Results - last 24 hr 01/30/23 01/30/23 01/31/23 23:26 23:40 00:20 WBC 14.1 H RBC 3.05 L Hgb 8.5 L Hct 27.6 L MCV 90.5 MCH 27.9 MCHC 30.8 L RDW Std Deviation 47.0 H RDW Coeff of Danis 14.3 Plt Count 362 MPV 9.4 Immature Gran % (Auto) 0.500 Neut % (Auto) 93.0 H Lymph % (Auto) 3.4 L Martin % (Auto) 2.9 Eos % (Auto) 0.0 Baso % (Auto) 0.2 Absolute Neuts (auto) 13.1 H Absolute Lymphs (auto) 0.48 L Nucleated RBC % 0 Differential Comment SCANNED ESR 39 H PT 19.9 H INR 1.7 APTT 48.6 H Sodium 131 L Potassium 4.7 Chloride 99 Carbon Dioxide 20.0 L Anion Gap 12 BUN 22 H Creatinine 1.26 Estim Creat Clear Calc 39.95 Est GFR (MDRD) Af Amer 71 Est GFR (MDRD) Non-Af 59 L BUN/Creatinine Ratio 17.5 Glucose 403 H Lactic Acid 3.4 H* Calcium 8.5 Total Bilirubin 0.50 AST 18 ALT 29 Alkaline Phosphatase 99 C-React Prot Ext Range 97.60 H B-Natriuretic Peptide 496.7 H Total Protein 5.9 L Albumin 2.2 L Globulin 3.7 Albumin/Globulin Ratio 0.6 L Urine Color Urine Clarity Urine pH Ur Specific [place] Urine Protein Urine Glucose (UA) Urine Ketones Urine Occult Blood Urine Nitrite Urine Bilirubin Urine Urobilinogen Ur Leukocyte Esterase Urine RBC Urine WBC Ur Squamous Epith Cells Urine Bacteria Urine Mucus 01/31/23 00:37 WBC RBC Hgb Hct MCV MCH MCHC RDW Std Deviation RDW Coeff of Danis Plt Count MPV Immature Gran % (Auto) Neut % (Auto) Lymph % (Auto) Martin % (Auto) Eos % (Auto) Baso % (Auto) Absolute Neuts (auto) Absolute Lymphs (auto) Nucleated RBC % Differential Comment ESR PT INR APTT Sodium Potassium Chloride Carbon Dioxide Anion Gap BUN Creatinine Estim Creat Clear Calc Est GFR (MDRD) Af Amer Est GFR (MDRD) Non-Af BUN/Creatinine Ratio Glucose Lactic Acid Calcium Total Bilirubin AST ALT Alkaline Phosphatase C-React Prot Ext Range B-Natriuretic Peptide Total Protein Albumin Globulin Albumin/Globulin Ratio Urine Color Yellow Urine Clarity Clear Urine pH 5.0 Ur Specific [place] 1.010 Urine Protein Negative Urine Glucose (UA) 1000 H Urine Ketones 15 H Urine Occult Blood Negative Urine Nitrite Negative Urine Bilirubin Negative Urine Urobilinogen Normal Ur Leukocyte Esterase 25 H Urine RBC 0 SEEN Urine WBC 0 SEEN Ur Squamous Epith Cells 0 SEEN Urine Bacteria 1+ Urine Mucus 0 SEEN Radiography Chest X-Ray - ED: 1 View, Read by ED Physician and No Infiltrates Diagnostic Testing: Clinical Impression(s) from Imaging Studies Chest X-Ray 01/30/23 23:00 IMPRESSION: No evidence of acute cardiopulmonary disease. Electronically Signed: Bakari Palma DO at 0:17 EDT , Foot X-Ray 01/30/23 23:00 IMPRESSION: No evidence of osteomyelitis or soft tissue gas. Electronically Signed: Bakari Palma DO at 0:11 EDT , Three-view x-ray series of the left foot my interpretation shows no obvious signs of subcutaneous air or bony involvement, radiology in agreement. Rhythm Strip Rhythm Strip: A-fib Rate: 120 Ectopy: None EKG Initial EKG: Attestation: I personally reviewed and interpreted this EKG as follows: Interpretation: No Acute Injury Pattern and Atrial Fibrillation Comments: RVR Management Discussion w/another healthcare provider: Hospitalist Critical Care Time Critical Care Time: Yes Critical care time (excluding procedures): 30-74 minutes (40 min), Including time spent:, Discussing w/Patient &/or Family/[employer], Discussing w/Consultants, Arranging Admission or Transfer and Performing Direct Patient Care at Bedside Discharge Plan Dx/Rx/DC Orders Clinical Impression: Diabetic infection of left foot, Sepsis, Hyperglycemia due to type 2 diabetes mellitus, Anticoagulated, ABLA (acute blood loss anemia), Atrial fibrillation with RVR Disposition Disposition: Acute Care Hospital [facility]
[2023-01-30 23:32] VITALS: BP 89/60; PULSE 162; RESP 20; TEMP 37.2; O2SAT 94
[2023-01-30 23:47] LABS: Absolute Lymphocyte Count 0.48 X10^3/uL (0.83-4.51); Absolute Neutrophil Count 13.1 X10^3/uL (2.0-7.7); Basophil# 0.03 X10^3/uL; Basophil% 0.2 % (0-1); Hematocrit 27.6 % (40-54); Hemoglobin 8.5 g/dL (13.0-16.5); Lymphocyte # 0.48 X10^3/ul (0.83-4.51); Lymphocyte % 3.4 % (19-41); Mean Corp Hgb Conc 30.8 g/dL (32-36); Mean Corpuscular Hgb 27.9 pg (27.0-32.0); Mean Corpuscular Volume 90.5 fL (80-94); Mean Platelet Vol. 9.4 fl (6.2-12.0); Monocyte# 0.41 X10^3/uL; Monocyte% 2.9 % (0-10); NRBC Flagged by Analyzer 0 % (0-5); Neutrophil # 13.06 X10^3/uL (2.7-7.7); POSITIVE DIFFERENTIAL YES; Platelet Count 362 K/mm3 (150-450); RBC Distribution Width CV 14.3 % (11.6-14.6); Red Blood Count 3.05 M/mm3 (4.6-6.2); White Blood Count 14.1 K/mm3 (4.4-11.0)
[2023-01-30 23:49] LABS: Differential Indicated SCAN CRITERIA MET
[2023-01-30] MEDS: Ondansetron 4 MG/2 ML Vial IV (23:55)
[2023-01-31] VITALS (44 sets, daily range): BP systolic 80–119; BP diastolic 55–95; PULSE 91–155; RESP 16–32; TEMP 36.5–37.2; O2SAT 90–100; BMI 18.5
[2023-01-31 00:04] LABS: ALB/GLOB Ratio 0.6 RATIO (0.9-2.4); AST(SGOT) 18 U/L (15-37); Alanine Aminotransfer ALT/SGPT 29 U/L (16-61); Albumin, Serum 2.2 g/dL (3.2-5.0); Alkaline Phosphatase 99 U/L (45-117); Anion Gap 12 (5-15); BUN 22 mg/dL (7-18); BUN/Creat Ratio 17.5 RATIO (10-20); Calcium,Total 8.5 mg/dL (8.5-10.1); Chloride 99 mmol/L (98-107); Creatinine, Serum 1.26 mg/dL (0.70-1.30); EST Glomerular Filtration Rate 59 mL/min (>60); Est Glom Filt Rate - Afr Amer 71 mL/min (>60); Estimated Creatinine Clearance 39.95 ml/min; Globulin 3.7 g/dL (2.2-4.2); Glucose 403 mg/dL (74-106); Potassium 4.7 mmol/L (3.5-5.1); Protein, Total 5.9 g/dL (6.4-8.2); Sodium Level 131 mmol/L (136-145)
[2023-01-31 00:09] LABS: BNP,B-Type NATRIURETIC PEPTIDE 496.7 pg/mL (0-100)
[2023-01-31] MEDS: 0.9% Normal Saline 1,000 ML 999 ML IV ×2 (00:11→00:53)
[2023-01-31 00:24] LABS: Differential Comment SCANNED
[2023-01-31 00:25] LABS: Lactic Acid 3.4 mmol/L (0.4-1.9)
[2023-01-31 00:26] LABS: Partial Thromboplast Time 48.6 Seconds (24.1-36.2)
[2023-01-31 00:32] LABS: Prothrombin Time (Protime)PT. 19.9 SECONDS (11.7-14.9)
[2023-01-31 00:41] LABS: Mucous, Urine 0 SEEN /hpf (<or=2+); Red Blood Cells-Urine 0 SEEN /hpf (0-5); Squamous Epithelial Cells - UA 0 SEEN /hpf (0-5); White Blood Cells 0 SEEN /hpf (0-5)
[2023-01-31 00:43] LABS: Color, Urine Yellow (Yellow); Glucose, Dipstick 1000 mg/dl (Normal); Ketone-Dipstick 15 mg/dl (Negative); Leukocyte Esterase-Dipstick 25 /ul (Negative); Nitrite-Dipstick Negative (Negative); Occult Blood-Urine Negative /ul (Negative); Protein-Dipstick Negative (Negative); Urine Bilirubin Dipstick Negative (Negative); Urine Clarity Clear (Clear); Urine Urobilinogen Normal (Normal)
[2023-01-31 00:43] LABS: International Normalized Ratio 1.7
[2023-01-31 00:47] LABS: Erythrocyte Sedimentation Rate 39 mm/hr (0-20)
[2023-01-31 00:50] LABS: Bacteria 1+ /hpf (None Seen)
[2023-01-31 01:20] LABS: Magnesium 1.8 mg/dL (1.6-2.6)
--- NOTE | 2023-01-31 01:27 | PCM.HP.STD ---
HPI - General General Date of Admission: 01/31/23 Date of Service: 01/31/23 Chief Complaint: Fatigue, malaise. HPI Narrative The patient is an 78 y/o M w/ PMHx: Chronic LLE Wound, PAD, Former tobacco use, Chronic anemia, Chronic Diastolic CHF, HTN, HLD, GERD, PAF, BPH, Chronic anemia/Fe deficiency, CAD/Nonischemic cardiomyopathy, Diabetes mellitus type II, Partial seizure disorder, CKD stage II who presents to the [facility] ED on 01/31/23 with history of recent evaluation 01/28/2023 secondary to significant bleeding from his left foot on chronic anticoagulant therapy with packing placed in and by leading eventually controlled and discharged to home who now represents secondary to occasional dyspnea as well as a nonproductive cough with nausea and emesis but no associated abdominal pain nor any diarrhea with increasing fatigue and malaise and generalized weakness prompting family to bring patient in for ED evaluation. In the ED upon physician initial evaluation patient and family noted that his dressing on his left foot had not been changed since recent ED evaluation on 01/28/2023. Dressing was taken down and notable for foul-smelling discharge. Patient notes no pain to the specific open wound region but states because he has been nonweightbearing has primarily been using a walker and putting pressure on the heel as he is supposed to but unfortunately this is associated with pain at the heel region. Work-up in the ED included T99, heart rate 162, BP 89/60, respiratory rate 20, 94% on room air, blood culture x 2 pending per ED, CBC with WC 14.1, hemoglobin 8.5, MCV 90.5, platelets 362 with left shift and lymphopenia, CMP with sodium 131, carbon oxide 20, BUN/creatinine 22/1.26, glucose 403, BNP 496.7, lactic acid 3.4, coag studies PT 19.9, PTT 48.6, INR pending upon request evaluation of patient, plain film of the left foot with no evidence of osteomyelitis or soft tissue gas, chest x-ray with no acute cardiopulmonary findings, ESR pending upon requested evaluation of patient, CRP 97.60, UA pending upon requested evaluation of patient. In the ED patient administered IV vancomycin, IV Zosyn, 2 L normal saline bolus per 30 cc/kg protocol given septic presentation as well as Zofran 4 mg IV x1. 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 Anemia Atherosclerosis of coronary artery of [place] heart without angina pectoris Atrial fibrillation BPH (benign prostatic hyperplasia) Cellulitis of foot, left Chronic diastolic (congestive) heart failure Chronic kidney disease Diabetes Erectile dysfunction Essential (primary) hypertension History of non-ST elevation myocardial infarction (NSTEMI) (08/26/16) Hyperlipidemia Inguinal hernia of right side without obstruction or gangrene Iron deficiency anemia Kidney disease Longstanding persistent atrial fibrillation Multinodular goiter Non-ischemic cardiomyopathy 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 Non-pressure chronic ulcer of other part of left foot with fat layer exposed Nonrheumatic aortic (valve) stenosis Paroxysmal atrial fibrillation Partial seizure disorder Peripheral vascular disease, unspecified Peripheral vascular occlusive disease Pre-syncope Seizures Syncope Type 2 diabetes mellitus Type 2 diabetes mellitus with diabetic polyneuropathy Type 2 diabetes mellitus with foot ulcer Type 2 diabetes mellitus with left diabetic foot infection Urinary retention Urinary retention due to benign prostatic hyperplasia Ventral incisional hernia without obstruction or gangrene Wound of foot Home Medications atorvastatin 80 mg tablet 80 mg PO QHS cholesterol 07/21/18 [History Last Taken 12/09/22] lamotrigine 200 mg tablet 200 mg PO BID seizures 07/21/18 [History Last Taken 12/10/22 08:00] metformin 500 mg tablet,extended release 24 hr 1,000 mg PO BID diabetes 07/21/18 [History Last Taken 12/10/22 08:00] finasteride 5 mg tablet 5 mg PO DAILY prostate 08/07/20 [History Last Taken 12/10/22 08:00] magnesium oxide 400 mg PO DAILY supplement 08/07/20 [History Last Taken 12/10/22 08:00] nitroglycerin 0.4 mg sublingual tablet 0.4 mg sublingual Q5M PRN Chest Pain 08/07/20 [History Last Taken Unknown] clopidogrel 75 mg tablet 75 mg PO DAILY Check with primary doctor 03/25/22 [History Last Taken 12/10/22 08:00] isosorbide mononitrate 60 mg tablet,extended release 24 hr 60 mg PO DAILY heart 03/25/22 [History Last Taken 12/10/22 08:00] pantoprazole 40 mg tablet,delayed release 40 mg PO DAILY stomach 03/25/22 [History Last Taken 12/10/22 08:00] apixaban 5 mg tablet (Eliquis) 5 mg PO BID blood thinner 05/09/22 [History Last Taken 12/10/22 08:00] gjidbil-[id number]-vvvn tablet See Rx Instructions PO .COMPLEX supplement 05/09/22 [History Last Taken Unknown] cholecalciferol (vitamin D3) 50 mcg (2,000 unit) capsule 50 mcg PO DAILY supplement 05/09/22 [History Last Taken 12/10/22 08:00] cinnamon bark 500 mg capsule (Cinnamon) 500 mg PO DAILY supplement 05/09/22 [History Last Taken 12/10/22 08:00] metoprolol tartrate 75 mg tablet 50 mg PO BID heart/blood pressure 05/09/22 [History Last Taken 12/10/22 08:00] tamsulosin 0.4 mg capsule 0.8 mg PO DAILY urination 05/09/22 [History Last Taken 12/10/22 08:00] semaglutide 2 mg/dose (8 mg/3 mL) subcutaneous pen injector (Ozempic) 8 mg subcut QWEEK dm 12/10/22 [History Last Taken 12/03/22] amoxicillin 875 mg-potassium clavulanate 125 mg tablet 1 tab PO BID 6 weeks #84 tabs 12/18/22 [Rx Last Taken Unknown] doxycycline monohydrate 100 mg tablet 100 mg PO BID 6 weeks #84 tabs 12/18/22 [Rx Last Taken Unknown] furosemide 20 mg tablet (Lasix) 20 mg PO DAILY 30 days #30 tabs 12/30/22 [Rx Last Taken Unknown] Allergy/AdvReac Type Severity Reaction Status Date / Time carbamazepine [From Tegretol] Allergy Rash Verified 01/28/23 19:35 Family History Mother Cancer Heart disease Father Hypertension Diabetes Son Heart disease Surgical History History of angioplasty of peripheral vessel (06/28/14) History of atherectomy History of cardioversion (08/21/16) History of colonoscopy (01/2019) History of coronary artery stent placement (03/20/22) History of inguinal hernia repair 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 HEENT: Eyes: No visual loss, blurred vision, double vision or yellow sclerae. Ears, Nose, Throat: No hearing loss, sneezing, congestion, runny nose or sore throat. SKIN: + LLE diabetic foot wound, foul smelling. CARDIOVASCULAR: No chest pain, chest pressure or chest discomfort, palpitations, edema, orthopnea, syncopal events. RESPIRATORY: + shortness of breath, cough with minimally productive sputum, No wheezing, hemoptysis. GASTROINTESTINAL: + anorexia, nausea, vomiting, No diarrhea, abdominal pain, melena, BRBPR. GENITOURINARY: No dysuria, frequency, urgency or retention. NEUROLOGICAL: No headache, dizziness, syncope, paralysis, ataxia, numbness or tingling in the extremities, focal weakness, change in bowel or bladder control, seizure. MUSCULOSKELETAL: + muscle, back pain, joint pain or stiffness. HEMATOLOGIC: + anemia, bleeding or bruising. LYMPHATICS: No enlarged nodes. No history of splenectomy. PSYCHIATRIC: No history of depression or anxiety. ENDOCRINOLOGIC: No reports of sweating, cold or heat intolerance. No polyuria or polydipsia. ALLERGIES: No history of asthma, hives, eczema or rhinitis. Vital Signs Vital Signs Vital Signs: 01/30/23 22:35 01/30/23 23:32 01/30/23 23:32 Temperature 98.7 F 99 F Temperature Source Temporal Oral Pulse Rate 66 162 H Respiratory Rate 18 20 H Respiratory Effort Respiratory Pattern Blood Pressure 141/115 H 89/60 L Blood Pressure Mean 123 69 Pulse Ox 95 94 Oxygen Delivery Method Room Air Room Air Room Air 01/30/23 23:49 01/31/23 00:00 Temperature 99 F Temperature Source Oral Pulse Rate 155 H Respiratory Rate 17 Respiratory Effort Normal Respiratory Pattern Tachypnea Blood Pressure 86/56 L Blood Pressure Mean 66 Pulse Ox 100 Oxygen Delivery Method Room Air Weight Weight: 133 lb 2.547 oz Body Mass Index (BMI) 18.6 Physical Exam Narrative Physical Examination: General: Awake, alert, oriented x 3 and cooperative, seated upright in the ED bed, fatigued appearing, notes feeling somewhat improved since initial arrival. Skin: Extremely pale color, normal turgor, no icterus, no cyanosis, notable left lower extremity plantar medial diabetic foot wound significantly foul smelling with not marked granulation tissue demonstrated with notable yellow fibrous tissue. HEENT: AT/NC, EOMI, PERRLA, dry MM, no carotid bruits or JVD noted. Lungs: Mildly diminished, greater bases, appropriate effort, no evidence of any distress, no rales, ronchi or wheezing. Heart: Irregular irregular; no gallop, rub audible. Abdomen: Soft, NTTP, ND, hyperactive BS, no HSM. Extremities: No cyanosis, clubbing, or marked edema, see skin. Neurological: Patient awake, alert, oriented as noted, cognitive function intact; pupils equally reactive to light and accommodation, cranial nerves II-XII grossly normal, moving all 4 extremities, no focal deficits, strength severely globally decreased secondary to acute presentation. Psychiatric: Affect appears fatigued, ill-appearing, no acute evidence of depressive or anxiety feelings. Results Lab / Micro Data 01/30/23 23:26 01/30/23 23:40 Labs: Laboratory Results - last 24 hr 01/30/23 23:26: WBC 14.1 H, RBC 3.05 L, Hgb 8.5 L, Hct 27.6 L, MCV 90.5, MCH 27.9, MCHC 30.8 L, RDW Std Deviation 47.0 H, RDW Coeff of Danis 14.3, Plt Count 362, MPV 9.4, Immature Gran % (Auto) 0.500, Neut % (Auto) 93.0 H, Lymph % (Auto) 3.4 L, [place] % (Auto) 2.9, Eos % (Auto) 0.0, Baso % (Auto) 0.2, Absolute Neuts (auto) 13.1 H, Absolute Lymphs (auto) 0.48 L, Nucleated RBC % 0, Differential Comment SCANNED, Lactic Acid 3.4 H*, B-Natriuretic Peptide 496.7 H 01/30/23 23:40: PT 19.9 H, APTT 48.6 H, Sodium 131 L, Potassium 4.7, Chloride 99, Carbon Dioxide 20.0 L, Anion Gap 12, BUN 22 H, Creatinine 1.26, Estim Creat Clear Calc 39.95, Est GFR (MDRD) Af Amer 71, Est GFR (MDRD) Non-Af 59 L, BUN/Creatinine Ratio 17.5, Glucose 403 H, Calcium 8.5, Total Bilirubin 0.50, AST 18, ALT 29, Alkaline Phosphatase 99, C-React Prot Ext Range 97.60 H, Total Protein 5.9 L, Albumin 2.2 L, Globulin 3.7, Albumin/Globulin Ratio 0.6 L Radiology Impression Chest X-Ray 01/30/23 23:00 IMPRESSION: No evidence of acute cardiopulmonary disease. Electronically Signed: Bakari Palma DO at 0:17 EDT Reading Location ID and State: [facility] / [place] Tel , Service support , Foot X-Ray 01/30/23 23:00 IMPRESSION: No evidence of osteomyelitis or soft tissue gas. Electronically Signed: Baakri Palma DO at 0:11 EDT , Assessment & Plan Assessment/Plan (1) Sepsis: PLAN: Plan The patient is an 78 y/o M w/ PMHx: Chronic LLE Wound, PAD, Former tobacco use, Chronic anemia, Chronic Diastolic CHF, HTN, HLD, GERD, PAF, BPH, Chronic anemia/Fe deficiency, CAD/Nonischemic cardiomyopathy, Diabetes mellitus type II, Partial seizure disorder, CKD stage II who presents to the [facility] ED on 01/31/23 with history of recent evaluation 01/28/2023 secondary to significant bleeding from his left foot on chronic anticoagulant therapy with packing placed in and by leading eventually controlled and discharged to home who now represents secondary to occasional dyspnea as well as a nonproductive cough with nausea and emesis but no associated abdominal pain nor any diarrhea with increasing fatigue and malaise and generalized weakness prompting family to bring patient in for ED evaluation. #1. Acute Sepsis secondary to Acute LLE Diabetic Foot Wound Foot (Hypotensive, leukocytosis, lactic acidosis, source): Will admit to the ICU given despite 2 L IV fluids/30 cc/kg IV fluid bolus MAP hovering around 65, will request supervisor pyrotechnic loading consultation, will trend lactic acid per facility protocol, will continue to closely monitor for signs of volume overload although currently chest x-ray not marked appearing, will maintain on IV vancomycin and zosyn, will obtain Wound Cx, will obtain Wound MRSA PCR, will request wound RN consultation, will initiate dressing changes, plan repeat CBC in AM, continue affected extremity elevation above heart when seated and in bed, monitor erythema outline with VS checks, will obtain Dr. Clark Podiatry consultation as well. To be cautious given respiratory complaints will plan repeat CXR in AM to assure no development of infiltrates, antigens, respiratory panel. #2. Acute on Chronic normocytic anemia secondary to Recent Acute Blood Loss following recent surgical debridement: Recent LLE wound debridement with onset significant heavy bleeding and ER evaluation 01/28/2023, upon arrival notable evidence of blood loss however significant pressure and interventions performed, suspect acute presentation currently with hemoglobin 12.9->8.5 likely secondary to recent intervention 01/22/2023 and also associated with recent blood loss acute presentation, will continue to closely trend and cautiously continue Plavix and Eliquis. Given his notable VS presentation although likely in large part secondary to his septic presentation, will administer 2 u PRBC concurrently given the profound recent drop with repeat HH following and continued close monitoring for overload. #3. PAF with RVR: Cautiously continuing home Eliquis therapy, holding metoprolol given hypotension as noted but presentation with RVR, likely related with his acute infectious presentation and concurrently acute on chronic anemia, as noted will initiate PRBC transfusion and being administered already 30 cc/kg IV fluid bolus, if HR remains persistently elevated will initiate amiodarone bolus as well as drip if necessary, recent echocardiogram 12/14/2022 as noted, magnesium level requested, cycle cardiac enzymes. #4. PAD: Patient with recent 01/22/23 LLE aortogram, left lower extremity runoff, IVUS left PT, TP trunk, SFA/popliteal arteries with mechanical thrombectomy of the left FSA/popliteal/TP trunk angioplasty/stent left popliteal/TP trunk angioplasty left SFA per Dr. Camp, will continue Plavix, Eliquis cautiously given recent acute blood loss as noted #1, statin, holding hypertensive regimen given hypotension. #5. Chronic diastolic CHF, appears currently compensated: Chest x-ray with no acute cardiopulmonary findings, BNP 496.7, most recent echocardiogram noted 12/14/2022 with normal LV size, normal LV systolic function, mild eccentric LV hypertrophy, mean AV gradient 22 mmHg with evidence of moderate aortic stenosis, PASP 44 mmHg. We will cautiously continue Plavix, Eliquis, holding hypertensive regimen given hypertensive presentation as noted, continue statin therapy, judicious hydration given history. #6. CAD/nonischemic card myopathy: We will cautiously continue aspirin as well as Eliquis therapy, holding hypertensive regimen given hypotension, continue statin therapy. #7. Chronic Kidney Disease Stage II: Admission BUN/Cr 22/1.26, baseline renal function 0.8-1.2, repeat BMP in AM. #8. Diabetes mellitus type II: Hold oral home regimen, ADA diet, accu checks w/ ISS. #9. Hypertension: Given presentation with hypotension holding all hypertensive regimen, resume once appropriate. #10. Hyperlipidemia: We will continue patient home statin therapy. #11. Former tobacco use: Encourage continued tobacco cessation. #12. BPH: We will continue patient home Flomax and finasteride regimen. #13. GERD: We will continue patient on PPI. #14. Partial seizure disorder: We will continue patient home lamotrigine regimen. #15. DVT prophylaxis: We will continue patient home Eliquis regimen cautiously given acute on chronic anemia however bleeding controlled, low threshold to hold if necessary however. #16. CODE status: Patient MACKENZIE is his who is present and his son and [id number] are a secondary and living will is currently in place. Discussed CODE status at length including difference between FULL code, DNR-CCA and DNR-CC status. Following discussions about the differences in these status, requested Full Code status. Advanced Care Planning Face to Face Time: 16 minutes. Admission Evaluation Time spent evaluating chart, patient history, patient evaluation, care planning and discussion with specialists: 75 minutes. Charges/Coding Visit Charges Inpatient E&M: 71111 Init Hosp L3 Procedures Hospitalists Procedures: 20003 Advncd Care Plan 30 Min
[2023-01-31] MEDS: 0.9% Normal Saline 1,000 ML 100 ML IV (02:06)
--- NOTE | 2023-01-31 03:19 | PCM.RX.CS ---
Consult Antibiotic Management Pharmacy has been consulted to manage selected antiobiotic: Vancomycin Type of Intervention Type of Consult: New start Suspected Infection Suspected Infection: Sepsis and Skin/Soft tissue Labs Labs: Sodium 131 mmol/L (136-145) L 01/30/23 23:40 Potassium 4.7 mmol/L (3.5-5.1) 01/30/23 23:40 Chloride 99 mmol/L (98-107) 01/30/23 23:40 Carbon Dioxide 20.0 mmol/L (21.0-32.0) L 01/30/23 23:40 Anion Gap 12 (5-15) 01/30/23 23:40 BUN 22 mg/dL (7-18) H 01/30/23 23:40 Creatinine 1.26 mg/dL (0.70-1.30) 01/30/23 23:40 Est GFR (MDRD) Af Amer 71 mL/min (>60) 01/30/23 23:40 Est GFR (MDRD) Non-Af 59 mL/min (>60) L 01/30/23 23:40 BUN/Creatinine Ratio 17.5 RATIO (10-20) 01/30/23 23:40 Glucose 403 mg/dL (74-106) H 01/30/23 23:40 Goal Trough Goal Trough: 15-20 mcg/mL Pharmacy Plan for Drug Dosing Pharmacy Plan for Drug Dosing: IV VANCOMYCIN Consulting Physician: Dr. Macias Indication: SSTI Goal Trough: 15-20 SrCr: 1.26 CrCl: 40 mL/min Comments: 1500mg IV x1 ordered and administered in ED 01/31/23 @0209 Vancomycin Dose: 500mg IV Q12hr to start 01/31/23 @1400 Pending Level: 02/01/23 @1330, prior to 4th total dose of vancomycin per protocol Pharmacy Service will continue to monitor and adjust dosing as required.
[2023-01-31 03:35] LABS: Reflex Lactate? Y
[2023-01-31] MEDS: 0.9% Saline Lock 10 ML Syringe IV ×2 (03:53→05:59)
[2023-01-31 04:43] LABS: ALB/GLOB Ratio 0.6 RATIO (0.9-2.4); AST(SGOT) 31 U/L (15-37); Alanine Aminotransfer ALT/SGPT 25 U/L (16-61); Albumin, Serum 2.1 g/dL (3.2-5.0); Alkaline Phosphatase 117 U/L (45-117); Anion Gap 11 (5-15); BUN 26 mg/dL (7-18); BUN/Creat Ratio 21.3 RATIO (10-20); Chloride 102 mmol/L (98-107); Creatinine, Serum 1.22 mg/dL (0.70-1.30); EST Glomerular Filtration Rate 61 mL/min (>60); Est Glom Filt Rate - Afr Amer 74 mL/min (>60); Estimated Creatinine Clearance 41.19 ml/min; Globulin 3.5 g/dL (2.2-4.2); Glucose 380 mg/dL (74-106); Protein, Total 5.6 g/dL (6.4-8.2); Sodium Level 133 mmol/L (136-145)
[2023-01-31 05:06] LABS: Lactic Acid 2.6 mmol/L (0.4-1.9)
[2023-01-31 05:15] LABS: Magnesium 1.6 mg/dL (1.6-2.6); Phosphorus 3.9 mg/dL (2.5-4.9)
--- NOTE | 2023-01-31 06:52 | EX.PCM.CONCC ---
Assessment & Plan Assessment/Plan (1) Sepsis: PLAN: Plan RECOMMENDATIONS: 1. Continue empiric antimicrobials, pending infectious work-up. 2. Check CBC posttransfusion. 3. Gentle IV fluid hydration. 4. Continue amiodarone as ordered. 5. Podiatry evaluation pending. IMPRESSIONS: 1. Sepsis The patient presented with sepsis due to possible infected foot ulcer with acute sepsis related organ dysfunction as evidenced by hypotension and lactic acidemia. The patient did receive supplemental IV fluid hydration and remains hemodynamically stable at the present time. Podiatry consultation is pending. Continue broad-spectrum antimicrobials as ordered, pending infectious work-up. 2. Anemia Concern for recent blood loss from the left foot in the setting of Eliquis and Plavix coadministration. The patient is receiving transfusion of blood products. Check H&H posttransfusion. Continue to monitor blood counts and transfuse if hemoglobin drops below 7 g/dL. 3. Peripheral arterial disease The patient is status post recent thrombectomy and stenting by Dr. Camp. The patient will need to be continued on Plavix and Eliquis. 4. Paroxysmal atrial fibrillation with RVR/heart failure with preserved ejection fraction/history of coronary artery disease/chronic kidney disease/diabetes Complicates care, management, recovery and prognosis. Continue supportive care as noted above. Continue Accu-Cheks and sliding scale insulin coverage. The patient will be continued on amiodarone as ordered. This note was generated with [employer] dictation software. It may contain incorrect words, spelling, and punctuation that were not noted in checking the note before signing. HPI Consult Data Date of Consult: 01/31/23 HPI Narrative Reason for Consultation: Sepsis HPI Narrative: The patient is an 78-year-old male, with a history as outlined below, who presented to the emergency department via EMS on January 30 with malaise, rigors, nausea and vomiting. The patient was evaluated in the emergency department on January 28 with bleeding from his left foot, in the setting of therapy with Eliquis and Plavix. The patient has a known history of atherosclerosis with nonhealing left lower extremity wound, for which he recently underwent angioplasty and stenting by Dr. Wong Camp on January 22. The patient reported that he has been followed by podiatry on an outpatient basis. On presentation to the emergency department, the patient was noted to be afebrile and hemodynamically stable. He was maintaining appropriate oxygen saturations on room air. Laboratory evaluation revealed a white blood cell count of 14,000. Hemoglobin was noted to be 8.5 g/dL. Previously, on January 15, the patient was noted to have a hemoglobin of almost 13 g/dL. Chemistry profile was notable for a lactate of 3.4. Creatinine was within normal limits. BNP was elevated at 500. Urine analysis was unremarkable. Plain film chest x-ray demonstrated no acute cardiopulmonary process. Left foot x-ray demonstrated no evidence of osteomyelitis. The patient's foot dressing was apparently taken down and revealed malodorous discharge. The patient received supplemental IV fluid hydration and was started on broad-spectrum antimicrobials. In light of the patient's presenting anemia, the patient was ordered to receive packed red blood cells. He was subsequently admitted to the medical intensive care unit for further management. The patient is currently documented to be overall net +2.7 L for the hospitalization. The patient remains in atrial fibrillation and has been relatively hemodynamically stable with only 1 blood pressure below 90 mmHg systolic early this morning. 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 Anemia Atherosclerosis of coronary artery of [place] heart without angina pectoris Atrial fibrillation BPH (benign prostatic hyperplasia) Cellulitis of foot, left Chronic diastolic (congestive) heart failure Chronic kidney disease Diabetes Erectile dysfunction Essential (primary) hypertension History of non-ST elevation myocardial infarction (NSTEMI) (08/26/16) Hyperlipidemia Inguinal hernia of right side without obstruction or gangrene Iron deficiency anemia Kidney disease Longstanding persistent atrial fibrillation Multinodular goiter Non-ischemic cardiomyopathy 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 Non-pressure chronic ulcer of other part of left foot with fat layer exposed Nonrheumatic aortic (valve) stenosis Paroxysmal atrial fibrillation Partial seizure disorder Peripheral vascular disease, unspecified Peripheral vascular occlusive disease Pre-syncope Seizures Syncope Type 2 diabetes mellitus Type 2 diabetes mellitus with diabetic polyneuropathy Type 2 diabetes mellitus with foot ulcer Type 2 diabetes mellitus with left diabetic foot infection Urinary retention Urinary retention due to benign prostatic hyperplasia Ventral incisional hernia without obstruction or gangrene Wound of foot Home Medications atorvastatin 80 mg tablet 80 mg PO QHS cholesterol 07/21/18 [History Last Taken 12/09/22] lamotrigine 200 mg tablet 200 mg PO BID seizures 07/21/18 [History Last Taken 12/10/22 08:00] metformin 500 mg tablet,extended release 24 hr 1,000 mg PO BID diabetes 07/21/18 [History Last Taken 12/10/22 08:00] finasteride 5 mg tablet 5 mg PO DAILY prostate 08/07/20 [History Last Taken 12/10/22 08:00] magnesium oxide 400 mg PO DAILY supplement 08/07/20 [History Last Taken 12/10/22 08:00] nitroglycerin 0.4 mg sublingual tablet 0.4 mg sublingual Q5M PRN Chest Pain 08/07/20 [History Last Taken Unknown] clopidogrel 75 mg tablet 75 mg PO DAILY Check with primary doctor 03/25/22 [History Last Taken 12/10/22 08:00] isosorbide mononitrate 60 mg tablet,extended release 24 hr 60 mg PO DAILY heart 03/25/22 [History Last Taken 12/10/22 08:00] pantoprazole 40 mg tablet,delayed release 40 mg PO DAILY stomach 03/25/22 [History Last Taken 12/10/22 08:00] apixaban 5 mg tablet (Eliquis) 5 mg PO BID blood thinner 05/09/22 [History Last Taken 12/10/22 08:00] ziatytf-spjjrmtgb-coog tablet See Rx Instructions PO .COMPLEX supplement 05/09/22 [History Last Taken Unknown] cholecalciferol (vitamin D3) 50 mcg (2,000 unit) capsule 50 mcg PO DAILY supplement 05/09/22 [History Last Taken 12/10/22 08:00] cinnamon bark 500 mg capsule (Cinnamon) 500 mg PO DAILY supplement 05/09/22 [History Last Taken 12/10/22 08:00] metoprolol tartrate 75 mg tablet 50 mg PO BID heart/blood pressure 05/09/22 [History Last Taken 12/10/22 08:00] tamsulosin 0.4 mg capsule 0.8 mg PO DAILY urination 05/09/22 [History Last Taken 12/10/22 08:00] semaglutide 2 mg/dose (8 mg/3 mL) subcutaneous pen injector (Ozempic) 8 mg subcut QWEEK dm 12/10/22 [History Last Taken 12/03/22] amoxicillin 875 mg-potassium clavulanate 125 mg tablet 1 tab PO BID 6 weeks #84 tabs 12/18/22 [Rx Last Taken Unknown] doxycycline monohydrate 100 mg tablet 100 mg PO BID 6 weeks #84 tabs 12/18/22 [Rx Last Taken Unknown] furosemide 20 mg tablet (Lasix) 20 mg PO DAILY 30 days #30 tabs 12/30/22 [Rx Last Taken Unknown] Allergy/AdvReac Type Severity Reaction Status Date / Time carbamazepine [From Tegretol] Allergy Rash Verified 01/28/23 19:35 Family History Mother Cancer Heart disease Father Hypertension Diabetes Son Heart disease Surgical History History of angioplasty of peripheral vessel (06/28/14) History of atherectomy History of cardioversion (08/21/16) History of colonoscopy (01/2019) History of coronary artery stent placement (03/20/22) History of inguinal hernia repair 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 Physical Exam Const alert and no apparent distress General Appearance: cooperative HEENT normocephalic and head/scalp atraumatic Eyes PERRL, EOMs intact bilaterally and conjunctivae normal Neck supple General: trachea midline Chest inspection of chest normal Resp normal respiratory effort Auscultation: Negative for rales, rhonchi or wheezes Cardio S1 normal heart sound and S2 normal heart sound Rate: tachycardic Rhythm: abnormal rhythm GI normal to inspection, nondistended, normoactive bowel sounds Extremity no clubbing, cyanosis or edema Skin Skin Narrative: Wrapped left lower extremity. Neuro oriented x3, CN's II-XII intact bilaterally and moves all extremities Psych cooperative and affect normal Lab / Micro Data 01/30/23 23:26 01/31/23 04:10 Labs: Laboratory Results - last 24 hr 01/30/23 23:26: WBC 14.1 H, RBC 3.05 L, Hgb 8.5 L, Hct 27.6 L, MCV 90.5, MCH 27.9, MCHC 30.8 L, RDW Std Deviation 47.0 H, RDW Coeff of Danis 14.3, Plt Count 362, MPV 9.4, Immature Gran % (Auto) 0.500, Neut % (Auto) 93.0 H, Lymph % (Auto) 3.4 L, [place] % (Auto) 2.9, Eos % (Auto) 0.0, Baso % (Auto) 0.2, Absolute Neuts (auto) 13.1 H, Absolute Lymphs (auto) 0.48 L, Nucleated RBC % 0, Differential Comment SCANNED, Lactic Acid 3.4 H*, B-Natriuretic Peptide 496.7 H 01/30/23 23:40: PT 19.9 H, INR 1.7, APTT 48.6 H, Sodium 131 L, Potassium 4.7, Chloride 99, Carbon Dioxide 20.0 L, Anion Gap 12, BUN 22 H, Creatinine 1.26, Estim Creat Clear Calc 39.95, Est GFR (MDRD) Af Amer 71, Est GFR (MDRD) Non-Af 59 L, BUN/Creatinine Ratio 17.5, Glucose 403 H, Calcium 8.5, Magnesium 1.8, Total Bilirubin 0.50, AST 18, ALT 29, Alkaline Phosphatase 99, C-React Prot Ext Range 97.60 H, Total Protein 5.9 L, Albumin 2.2 L, Globulin 3.7, Albumin/Globulin Ratio 0.6 L 01/31/23 00:20: ESR 39 H 01/31/23 00:37: Urine Color Yellow, Urine Clarity Clear, Urine pH 5.0, Ur Specific [place] 1.010, Urine Protein Negative, Urine Glucose (UA) 1000 H, Urine Ketones 15 H, Urine Occult Blood Negative, Urine Nitrite Negative, Urine Bilirubin Negative, Urine Urobilinogen Normal, Ur Leukocyte Esterase 25 H, Urine RBC 0 SEEN, Urine WBC 0 SEEN, Ur Squamous Epith Cells 0 SEEN, Urine Bacteria 1+, Urine Mucus 0 SEEN 01/31/23 00:54: Crossmatch See Detail 01/31/23 00:55: Blood Type A POSITIVE, Antibody Screen NEGATIVE 01/31/23 04:10: Sodium 133 L, Potassium 5.0, Chloride 102, Carbon Dioxide 20.0 L, Anion Gap 11, BUN 26 H, Creatinine 1.22, Estim Creat Clear Calc 41.19, Est GFR (MDRD) Af Amer 74, Est GFR (MDRD) Non-Af 61, BUN/Creatinine Ratio 21.3 H, Glucose 380 H, Lactic Acid 2.6 H*, Calcium 8.0 L, Phosphorus 3.9, Magnesium 1.6, Total Bilirubin 0.60, AST 31, ALT 25, Alkaline Phosphatase 117, Total Protein 5.6 L, Albumin 2.1 L, Globulin 3.5, Albumin/Globulin Ratio 0.6 L Micro: Microbiology 01/31/23 00:40 Urine, Random Legionella Antigen - Final 01/31/23 00:40 Urine, Random Streptococcus pneumoniae Antigen (M - Final Rhythm Strip Rhythm Strip: A-fib Rate: 120 Ectopy: None Radiology Impression Chest X-Ray 01/30/23 23:00 IMPRESSION: No evidence of acute cardiopulmonary disease. Electronically Signed: Bakari Palma DO at 0:17 EDT , Foot X-Ray 01/30/23 23:00 IMPRESSION: No evidence of osteomyelitis or soft tissue gas. Electronically Signed: Bakari Palma DO at 0:11 EDT , Charges/Coding Visit Charges Inpatient E&M: 51134 Init Hosp L3
--- NOTE | 2023-01-31 06:59 | PN.HOSP_ITS ---
Reason for Visit Reason for Visit: Diagnoses Sepsis, unspecified organism (01/31/23) Subjective Subjective Feels much better. Objective Data Objective Data Vital Signs: Vital Signs Temp Pulse Resp BP Pulse Ox O2 Del Method 36.8 C 133 H 26 H 111/70 92 Room Air 01/31/23 06:00 01/31/23 06:30 01/31/23 06:30 01/31/23 06:30 01/31/23 06:30 01/31/23 06:30 Oxygen Delivery Method Room Air Weight: 60.3 kg Body Mass Index (BMI) 18.5 Intake & Output: Intake and Output for Last 24 Hours 01/29/23 01/30/23 01/31/23 23:59 23:59 23:59 Intake Total 3133 / 3133 Output Total 400 / 400 Balance 2733 / 2733 Lab / Micro Data 01/31/23 10:00 01/31/23 04:10 Labs: Laboratory Results - last 24 hr 01/30/23 23:26: WBC 14.1 H, RBC 3.05 L, Hgb 8.5 L, Hct 27.6 L, MCV 90.5, MCH 27.9, MCHC 30.8 L, RDW Std Deviation 47.0 H, RDW Coeff of Danis 14.3, Plt Count 362, MPV 9.4, Immature Gran % (Auto) 0.500, Neut % (Auto) 93.0 H, Lymph % (Auto) 3.4 L, [place] % (Auto) 2.9, Eos % (Auto) 0.0, Baso % (Auto) 0.2, Absolute Neuts (auto) 13.1 H, Absolute Lymphs (auto) 0.48 L, Nucleated RBC % 0, Differential Comment SCANNED, Lactic Acid 3.4 H*, B-Natriuretic Peptide 496.7 H 01/30/23 23:40: PT 19.9 H, INR 1.7, APTT 48.6 H, Sodium 131 L, Potassium 4.7, Chloride 99, Carbon Dioxide 20.0 L, Anion Gap 12, BUN 22 H, Creatinine 1.26, Estim Creat Clear Calc 39.95, Est GFR (MDRD) Af Amer 71, Est GFR (MDRD) Non-Af 59 L, BUN/Creatinine Ratio 17.5, Glucose 403 H, Calcium 8.5, Magnesium 1.8, Total Bilirubin 0.50, AST 18, ALT 29, Alkaline Phosphatase 99, C-React Prot Ext Range 97.60 H, Total Protein 5.9 L, Albumin 2.2 L, Globulin 3.7, Albumin/Globulin Ratio 0.6 L 01/31/23 00:20: ESR 39 H 01/31/23 00:37: Urine Color Yellow, Urine Clarity Clear, Urine pH 5.0, Ur Specific [place] 1.010, Urine Protein Negative, Urine Glucose (UA) 1000 H, Urine Ketones 15 H, Urine Occult Blood Negative, Urine Nitrite Negative, Urine Bilirubin Negative, Urine Urobilinogen Normal, Ur Leukocyte Esterase 25 H, Urine RBC 0 SEEN, Urine WBC 0 SEEN, Ur Squamous Epith Cells 0 SEEN, Urine Bacteria 1+, Urine Mucus 0 SEEN 01/31/23 00:54: Crossmatch See Detail 01/31/23 00:55: Blood Type A POSITIVE, Antibody Screen NEGATIVE 01/31/23 04:10: Sodium 133 L, Potassium 5.0, Chloride 102, Carbon Dioxide 20.0 L , Anion Gap 11, BUN 26 H, Creatinine 1.22, Estim Creat Clear Calc 41.19, Est GFR (MDRD) Af Amer 74, Est GFR (MDRD) Non-Af 61, BUN/Creatinine Ratio 21.3 H, Glucose 380 H, Lactic Acid 2.6 H*, Calcium 8.0 L, Phosphorus 3.9, Magnesium 1.6, Total Bilirubin 0.60, AST 31, ALT 25, Alkaline Phosphatase 117, Total Protein 5.6 L, Albumin 2.1 L, Globulin 3.5, Albumin/Globulin Ratio 0.6 L Micro: Microbiology 01/31/23 00:40 Urine, Random Legionella Antigen - Final 01/31/23 00:40 Urine, Random Streptococcus pneumoniae Antigen (M - Final Radiography Diagnostic Testing: Radiology Impression Chest X-Ray 01/30/23 23:00 IMPRESSION: No evidence of acute cardiopulmonary disease. Electronically Signed: Bakari Palma DO at 0:17 EDT , Foot X-Ray 01/30/23 23:00 IMPRESSION: No evidence of osteomyelitis or soft tissue gas. Electronically Signed: Bakari Palma, DO at 0:11 EDT , Rhythm Strip Rhythm Strip: A-fib Rate: 120 Ectopy: None Physical Exam Const alert and no apparent distress HEENT head/scalp atraumatic and moist oral mucous membranes Resp normal respiratory effort, no retractions, no use of accessory muscles and clear to auscultation bilaterally Cardio regular rate, regular rhythm, S1 normal heart sound and S2 normal heart sound GI normal to inspection, nondistended, normoactive bowel sounds, soft to palpation, non-tender and non-distended Extremity Extremity Narrative: left foot wrapped--did not remove. Wound RN picture from today shoed opened left forefoot wound. Neuro oriented x3 Sensorium / Orientation: awake and alert Psych affect normal Assessment & Plan Assessment/Plan (1) Sepsis: QUALIFIERS: Sepsis type: sepsis due to unspecified organism Sepsis acute organ dysfunction status: without acute organ dysfunction Qualified Code(s): A41.9 - Sepsis, unspecified organism PLAN: secondary to Acute LLE Diabetic Foot Wound Foot Sepsis POA: Hypotensive, leukocytosis, lactic acidosis, source Received IVF w 2 L IV fluids/30 cc/kg I vancomycin and zosyn (2) Diabetic infection of left foot: PLAN: Wound Cx, Wound MRSA PCR, wound RN consultation dressing changes, continue affected extremity elevation above heart when seated and in bed, monitor erythema outline with VS checks, Podiatry consultation ESR 39, CRP 97.6 (3) ABLA (acute blood loss anemia): PLAN: 2/2 recent debridement. Had to be rebandaged. Recent LLE wound debridement with onset significant heavy bleeding and ER evaluation 01/28/2023, 12.9->8.5 likely secondary to recent intervention 01/22/2023 and also associated with recent blood loss acute presentation, will continue to closely trend and cautiously continue Plavix and Eliquis. 01/31: patient received 2 units PRBCs. Hg 10.2 (4) Atrial fibrillation with RVR: PLAN: PAF with RVR: apixaban held given anemia amiodarone gtt echo on 12/16: normal EF. PASP 44. PLAN: Plan Chronic conditions: * PAD: Patient with recent 01/22/23 LLE aortogram, left lower extremity runoff, IVUS left PT, TP trunk, SFA/popliteal arteries with mechanical thrombectomy of the left FSA/popliteal/TP trunk angioplasty/stent left popliteal/TP trunk angioplasty left SFA per Dr. Camp, will continue Plavix, Eliquis cautiously given recent acute blood loss as noted #1, statin, holding hypertensive regimen given hypotension. * Chronic diastolic CHF, appears currently compensated: Chest x-ray with no acute cardiopulmonary findings, BNP 496.7, most recent echocardiogram noted 12/14/2022 with normal LV size, normal LV systolic function, mild eccentric LV hypertrophy, mean AV gradient 22 mmHg with evidence of moderate aortic stenosis, PASP 44 mmHg. We will cautiously continue Plavix, Eliquis, holding hypertensive regimen given hypertensive presentation as noted, continue statin therapy, judicious hydration given history. * CAD/nonischemic card myopathy: We will cautiously continue aspirin and clopidogrel. Stent placed to mid left circumflex on 03/20/22 * Chronic Kidney Disease Stage II: Admission BUN/Cr 25/08.26, baseline renal function 0.8-1.2, repeat BMP in AM. * Diabetes mellitus type II: Hold oral home regimen, ADA diet, accu checks w/ ISS. * Hypertension: Given presentation with hypotension holding all hypertensive regimen, resume once appropriate. * Hyperlipidemia: We will continue patient home statin therapy. * Former tobacco use: Encourage continued tobacco cessation. * BPH: We will continue patient home Flomax and finasteride regimen. * GERD: We will continue patient on PPI. * Partial seizure disorder: We will continue patient home lamotrigine regimen. DVT prophylaxis: We will continue patient home Eliquis regimen cautiously given acute on chronic anemia however bleeding controlled, low threshold to hold if necessary however. CODE status: Full Charges/Coding Visit Charges Inpatient E&M: 23151 Subs Hosp L2
--- NOTE | 2023-01-31 08:53 | WOUNDNOTE ---
wound photo: left foot
[2023-01-31] MEDS: Amiodarone 360 MG in Dextrose 5% Viaflo Bag 192.8 ML 33.3 MG CONT INF (09:30)
[2023-01-31] MEDS: Tamsulosin HCl 0.4 MG Capsule 0.8 MG PO (09:32)
[2023-01-31] MEDS: lamoTRIgine 100 MG Tablet 200 MG PO ×2 (09:33→21:28)
[2023-01-31] MEDS: Finasteride 5 MG Tablet PO (09:33)
[2023-01-31] MEDS: Clopidogrel Bisulfate 75 MG Tablet PO (09:33)
[2023-01-31] MEDS: Pantoprazole Sodium 40 MG Tablet PO (09:33)
[2023-01-31] MEDS: Insulin Lispro 100 UNIT/ML INSULN.PEN SC ×4 (09:50→21:30)
[2023-01-31 10:02] LABS: Bedside Glucose 313 mg/dL (74-106)
[2023-01-31 10:07] LABS: Absolute Lymphocyte Count 0.81 X10^3/uL (0.83-4.51); Absolute Neutrophil Count 11.7 X10^3/uL (2.0-7.7); Basophil# 0.05 X10^3/uL; Basophil% 0.4 % (0-1); Hemoglobin 10.2 g/dL (13.0-16.5); Lymphocyte # 0.81 X10^3/ul (0.83-4.51); Lymphocyte % 6.1 % (19-41); Mean Corp Hgb Conc 32.9 g/dL (32-36); Mean Corpuscular Hgb 29.4 pg (27.0-32.0); Mean Corpuscular Volume 89.3 fL (80-94); Mean Platelet Vol. 9.5 fl (6.2-12.0); Monocyte# 0.65 X10^3/uL; Monocyte% 4.9 % (0-10); NRBC Flagged by Analyzer 0 % (0-5); Neutrophil # 11.65 X10^3/uL (2.7-7.7); Neutrophil % 88.2 % (47-70); Platelet Count 339 K/mm3 (150-450); RBC Distribution Width CV 14.4 % (11.6-14.6); Red Blood Count 3.47 M/mm3 (4.6-6.2); White Blood Count 13.2 K/mm3 (4.4-11.0)
--- NOTE | 2023-01-31 10:15 | CASEMGMT ---
RN CM Face to Face with patient for initial transition planning/care coordination assessment. RN CM introduced self and role at [facility]. Patient lying in bed, alert and oriented. Patient willing to participate in assessment and is able to answer all questions appropriately. Care providers, pharmacy, and demographics verified. Patient wishes to discharge home with resumption of HHC with [facility], will monitor progress with therapy and course of treatment. Patient states he has no further needs or concerns at this time. CM to follow for discharge planning needs that may arise. PCP: Luiz Specialists: Vee, well drill operator helper cable tool; Conrado, vascular; Rashaun, gas turbine powerplant mechanic Preferred Pharmacy: [facility] Insurance: [employer] Prescription Benefit: yes Living Will/HPOA: yes, Sandhya Warner LNOK: , son Living Arrangements: Patient lives with in a condo with ramp to enter. Patient states he is independent at home. Transportation: self, son, DME/HHC: Patient has shower chair, grab bars, walker, knee scooter at home. Patient is currently active with [facility]. No previous SNF Disposition Plan: TBD anticipate HHC vs SNF pending course of treatment and progress with therapy. Angela MORA, RN, CM
[2023-01-31] MEDS: DAKIN'S SOL HALF STRENGTH (=0.25%) 1 APPLIC TOPICAL (10:41)
--- NOTE | 2023-01-31 10:47 | WOUNDNOTE ---
Pt had a small amount of breakthrough bleeding from the left foot wound. removed dressing. no active bleeding noted. applied Dakins moistened gauze as ordered ad applied a well padded dressing. wrapped with kerlix. pt tolerated well.
[2023-01-31 11:54] LABS: M R Staph aureus DNA By PCR Negative (Negative); Probe Check PASS; Specimen Processing Control PASS; Staph aureus DNA By PCR POSITIVE (Negative)
[2023-01-31 12:05] LABS: Troponin-I HS 4275 pg/mL (3.0-78.0)
[2023-01-31 12:39] LABS: Bedside Glucose 339 mg/dL (74-106)
[2023-01-31 13:11] LABS: Troponin-I HS 4260 pg/mL (3.0-78.0)
--- NOTE | 2023-01-31 13:27 | CASEMGMT ---
Discharge Planning SNF list created and given to SW. Kaylee Oden, Discharge Planning Asst.
[2023-01-31] MEDS: Vancomycin IV 500 MG/100 ML BAG 100 MG IV (14:40)
--- NOTE | 2023-01-31 15:24 | CASEMGMT ---
Discharge Planning Patient is active with [facility]. Referral sent via [facility] and [place] in notified. Kaylee Oden, Discharge Planning Asst.
[2023-01-31] MEDS: Amiodarone 360 MG in Dextrose 5% Viaflo Bag 192.8 ML 16.7 MG CONT INF (16:01)
--- NOTE | 2023-01-31 16:12 | NURSING ---
and son of patient voiced concerns of patient coming back home after discharge. CM notified.
[2023-01-31 16:44] LABS: Bedside Glucose 407 mg/dL (74-106)
[2023-01-31] MEDS: dilTIAZem 25 MG/5 ML Vial 20 MG IV BOLUS (16:49)
[2023-01-31] MEDS: Juven (unflavored) Packet 1 PACKET PO (16:58)
[2023-01-31 17:27] LABS: Troponin-I HS 3888 pg/mL (3.0-78.0)
--- NOTE | 2023-01-31 19:33 | PCM.CONS.GEN ---
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 Patient has been following with Dr. Baxter in office for wound care and had recently undergone debridement of the left foot. Patient did have an LEAS on 01/13/2023 which demonstrated left occluded SFA/popliteal stent and patient underwent vascular intervention 01/22/[address] Camp consisting of aortogram with left lower extremity runoff and mechanical thrombectomy and angioplasty left SFA stent placement. LEAS was reviewed Radiographs of the left foot 01/30/2023 demonstrate no acute findings, no osteomyelitis, no gas seen in the soft tissue. I do concur with radiographic read. Left foot: Ulceration noted to the plantar aspect of the transmetatarsal amputation stump of the left foot with exposure of the first metatarsal stump. Metatarsal appears discolored and there is thick dense yellow fibrotic tissue throughout the wound with darkened areas of black necrosis with rolled wound edges. There is exposure of tendons along the medial aspect of the first metatarsal base. There is malodor noted to the wound. There is thick yellowish serosanguineous/liquefied tissue drainage from the wound site. No periwound erythema, no purulence, no palpable fluctuance/bogginess, no visible abscess, no lymphangitic streaking. WBC 14.1 upon admission, decreased to 13.2 currently. ESR 39; CRP 97.60; lactic acid 3.4 on admission, decreased to 2.6 currently. Wound culture demonstrates Staph aureus protein A PCR positive, MRSA PCR negative. Swab culture obtained, awaiting results Blood culture obtained, awaiting results Following verbal permission sharp excisional debridement down to the level of muscle was performed utilizing forceps and a #15 blade. Debridement consisted of removing all fibrous tissue, devitalized subcutaneous and necrotic muscle, biofilm, slough. 100% of the ulcerative site was debrided. Hemostasis was achieved with pressure and gauze. There was noted improvement post debridement of tissue appearance. Ulceration measures 6.5 cm x 5 cm x 2 cm with exposure of the first metatarsal stump s/p TMA. Foot/wound site was dressed with Dakin's wet to dry. Dressing may be reinforced for strikethrough. Dressing to be changed daily Patient currently on IV Vanco/Zosyn Medicine team currently following for medical management, they are greatly appreciated Wound care nurse is following for assistance in dressing change, she is appreciated. At this time no podiatric surgical intervention planned. Discussed with patient due to exposed bone likely intervention would have consisted of removal of the remaining metatarsals converting to a Lisfranc amputation with soft tissue flap and attempt to achieve closure. However due to the size of the wound and poor quality of tissue it is unlikely surgical procedure will be successful in reconstitution of a new flap and thus it would be recommended from podiatry standpoint to undergo BKA to ultimately achieve healing status. Podiatry will continue to follow while in house Please do not hesitate to call with any questions or concerns. Jr. Anahy DelgadoP.M. [facility] [phone] HPI Consult Data Date of Consult: 01/31/23 HPI Narrative Reason for Consultation: Left foot ulceration HPI Narrative: AGUSTO CASTILLO, is a 78 M who presents to [facility] ED evening 01/30/2023 with worsening cough and occasional dyspnea. He has PMHx of transmetatarsal amputation of the left foot with chronic left lower extremity wound, PAD, chronic anemia, chronic diastolic CHF, HTN, HLD, PAF, BPH, DM type II with peripheral polyneuropathy, CAD/nonischemic cardiomyopathy, former tobacco use, CKD stage II. Patient had been following Dr. Baxter in office for local wound care to the plantar aspect of his left transmetatarsal amputation stump. Patient does have significant PAD and did undergo vascular intervention with Dr. Camp on 01/22/2023. He was recently seen on 01/28/2023 for significant bleeding of his left chronic foot ulceration and is currently on chronic anticoagulant therapy, did have site packed with packing left in place and bleeding well controlled with discharge from ED. Patient stated that the packing had not been changed prior to his admission today and when removed in the ED there was noted to be foul-smelling discharge from the wound site. He currently denies any pain to the left foot secondary to diabetic peripheral polyneuropathy. He states that he tries to remain nonweightbearing however this is difficult to do and he does ambulate on the amputation stump. He did undergo extensive work-up in the ED with WBC 14.1, lactic acid 3.4, hemoglobin 8.5, platelets 362, BUN/creatinine 22/1.26, glucose 403, BNP 496.7, sodium 131, CRP 97.60, ESR 39. Patient noted to have left shift and lymphopenia. He did undergo radiograph of the left foot which demonstrated no osteomyelitis or soft tissue gas. He was given IV vancomycin/Zosyn in the ED and was admitted to the ICU. Podiatry has been consulted for left foot ulceration and wound management. [facility] Medical History Acid reflux Acute osteomyelitis of left calcaneus Amputation at midfoot Anemia Atherosclerosis of coronary artery of [place]hoe heart without angina pectoris Atrial fibrillation BPH (benign prostatic hyperplasia) Cellulitis of foot, left Chronic diastolic (congestive) heart failure Chronic kidney disease Diabetes Erectile dysfunction Essential (primary) hypertension History of non-ST elevation myocardial infarction (NSTEMI) (08/26/16) Hyperlipidemia Inguinal hernia of right side without obstruction or gangrene Iron deficiency anemia Kidney disease Longstanding persistent atrial fibrillation Multinodular goiter Non-ischemic cardiomyopathy 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 Non-pressure chronic ulcer of other part of left foot with fat layer exposed Nonrheumatic aortic (valve) stenosis Paroxysmal atrial fibrillation Partial seizure disorder Peripheral vascular disease, unspecified Peripheral vascular occlusive disease Pre-syncope Seizures Syncope Type 2 diabetes mellitus Type 2 diabetes mellitus with diabetic polyneuropathy Type 2 diabetes mellitus with foot ulcer Type 2 diabetes mellitus with left diabetic foot infection Urinary retention Urinary retention due to benign prostatic hyperplasia Ventral incisional hernia without obstruction or gangrene Wound of foot Home Medications atorvastatin 80 mg tablet 80 mg PO QHS cholesterol 07/21/18 [History Last Taken 12/09/22] lamotrigine 200 mg tablet 200 mg PO BID seizures 07/21/18 [History Last Taken 12/10/22 08:00] metformin 500 mg tablet,extended release 24 hr 1,000 mg PO BID diabetes 07/21/18 [History Last Taken 12/10/22 08:00] finasteride 5 mg tablet 5 mg PO DAILY prostate 08/07/20 [History Last Taken 12/10/22 08:00] magnesium oxide 400 mg PO DAILY supplement 08/07/20 [History Last Taken 12/10/22 08:00] nitroglycerin 0.4 mg sublingual tablet 0.4 mg sublingual Q5M PRN Chest Pain 08/07/20 [History Last Taken Unknown] clopidogrel 75 mg tablet 75 mg PO DAILY Check with primary doctor 03/25/22 [History Last Taken 12/10/22 08:00] isosorbide mononitrate 60 mg tablet,extended release 24 hr 60 mg PO DAILY heart 03/25/22 [History Last Taken 12/10/22 08:00] pantoprazole 40 mg tablet,delayed release 40 mg PO DAILY stomach 03/25/22 [History Last Taken 12/10/22 08:00] apixaban 5 mg tablet (Eliquis) 5 mg PO BID blood thinner 05/09/22 [History Last Taken 12/10/22 08:00] [id number]-[id number] tablet See Rx Instructions PO .COMPLEX supplement 05/09/22 [History Last Taken Unknown] cholecalciferol (vitamin D3) 50 mcg (2,000 unit) capsule 50 mcg PO DAILY supplement 05/09/22 [History Last Taken 12/10/22 08:00] cinnamon bark 500 mg capsule (Cinnamon) 500 mg PO DAILY supplement 05/09/22 [History Last Taken 12/10/22 08:00] metoprolol tartrate 75 mg tablet 50 mg PO BID heart/blood pressure 05/09/22 [History Last Taken 12/10/22 08:00] tamsulosin 0.4 mg capsule 0.8 mg PO DAILY urination 05/09/22 [History Last Taken 12/10/22 08:00] semaglutide 2 mg/dose (8 mg/3 mL) subcutaneous pen injector (Ozempic) 8 mg subcut QWEEK dm 12/10/22 [History Last Taken 12/03/22] amoxicillin 875 mg-potassium clavulanate 125 mg tablet 1 tab PO BID 6 weeks #84 tabs 12/18/22 [Rx Last Taken Unknown] doxycycline monohydrate 100 mg tablet 100 mg PO BID 6 weeks #84 tabs 12/18/22 [Rx Last Taken Unknown] furosemide 20 mg tablet (Lasix) 20 mg PO DAILY 30 days #30 tabs 12/30/22 [Rx Last Taken Unknown] Allergy/AdvReac Type Severity Reaction Status Date / Time carbamazepine [From Tegretol] Allergy Rash Verified 01/28/23 19:35 Family History Mother Cancer Heart disease Father Hypertension Diabetes Son Heart disease Surgical History History of angioplasty of peripheral vessel (06/28/14) History of atherectomy History of cardioversion (08/21/16) History of colonoscopy (01/2019) History of coronary artery stent placement (03/20/22) History of inguinal hernia repair 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) History of transurethral resection of prostate (01/2019) Status post biopsy of thyroid gland (09/2019) Social History household members: spouse Smoking Status: Former smoker quit date: 08/04/69 pack-years: 10 alcohol intake: current alcohol intake frequency: a few times a month substance use type: does not use ROS Constitutional Constitutional: Denies chills, fatigue or night sweats Eyes Eyes: Denies change in vision, diplopia or erythema ENT HEENT: Denies dysphagia, nasal congestion, nasal discharge or sore throat Cardiovascular Cardiovascular: Denies chest pain, claudication or palpitations Respiratory/Chest Respiratory/Chest: Reports cough; Denies dyspnea or wheezing Gastrointestinal Gastrointestinal: Denies abdominal pain, constipation, diarrhea, nausea or vomiting Genitourinary Genitourinary: Denies dysuria, urinary frequency, urinary hesitancy, urinary incontinence or urinary urgency Musculoskeletal Musculoskeletal: Denies joint pain, joint stiffness or joint swelling Integumentary Integumentary: Denies lesions, pruritus or rash Neurologic Neurologic: Denies dizziness, numbness or seizures Endocrine Endocrinology: Denies change in libido or heat intolerance Hematologic/Lymphatic Hematologic/Lymphatic: Denies easy bleeding or easy bruising Allergic/Immunologic Allergic/Immunologic: Denies wheezing Physical Exam Const alert, oriented x3 and no apparent distress General Appearance: cooperative HEENT normocephalic Eyes General Eye: normal appearance of both eyes Neck General: normal visual inspection Lymph Lymphatic: no lymphadenopathy noted and no lymphedema noted Resp normal respiratory effort Cardio Cardio Narrative: Irregularly irregular Extremity no calf tenderness and no pedal edema Extremity Narrative: DP and PT pulses nonpalpable left foot. There is adequate perfusion to the amputation stump of the left foot Dermatological: Ulceration noted to the plantar aspect of the transmetatarsal amputation stump of the left foot with exposure of the first metatarsal stump. Metatarsal appears discolored and there is thick dense yellow fibrotic tissue throughout the wound with darkened areas of black necrosis with rolled wound edges. There is exposure of tendons along the medial aspect of the first metatarsal base. There is malodor noted to the wound. There is thick yellowish serosanguineous/liquefied tissue drainage from the wound site. No periwound erythema, no purulence, no palpable fluctuance/bogginess, no visible abscess, no lymphangitic streaking. Musculoskeletal: Transmetatarsal amputation stump noted to the left foot. No pain to palpation about the wound site. Skin skin turgor normal and no jaundice Neuro moves all extremities Neuro Narrative: Decreased protective sensation to the foot secondary to diabetic peripheral polyneuropathy Medical Records Data Medical Nutrition Assessment Dietitian: Malnutrition Criteria Met Start: 01/31/23 10:44 Freq: Status: Active Protocol: Document 01/31/23 10:44 CHANDRIKA (Rec: 01/31/23 10:44 [facility] [id number]) Nutrition Malnutrition Evidence of Malnutrition Exists Yes Evidenced By Suboptimal Energy Intake ( Severe),Weight Loss (Severe), Physical Changes (Moderate) Clinical Problem Altered Nutrient-Related Laboratory Values Etiology related to hx DM Signs/Symptoms as evidenced by gluc 380. 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 Pt also noted to have generalized fat/muscle wasting. Status Active Problem Recommendation Dietitian Recommendations/Changes Will continue 1999 martínez CHO Controlled diet Will provide 8oz chocolate glucerna shake at B&D per pt request Will order Oizel bid to help w / wound healing if consumed. Lab / Micro Data 01/31/23 10:00 01/31/23 04:10 Labs: Laboratory Results - last 24 hr 01/30/23 23:26: WBC 14.1 H, RBC 3.05 L, Hgb 8.5 L, Hct 27.6 L, MCV 90.5, MCH 27.9, MCHC 30.8 L, RDW Std Deviation 47.0 H, RDW Coeff of Danis 14.3, Plt Count 362, MPV 9.4, Immature Gran % (Auto) 0.500, Neut % (Auto) 93.0 H, Lymph % (Auto) 3.4 L, [place] % (Auto) 2.9, Eos % (Auto) 0.0, Baso % (Auto) 0.2, Absolute Neuts (auto) 13.1 H, Absolute Lymphs (auto) 0.48 L, Nucleated RBC % 0, Differential Comment SCANNED, Lactic Acid 3.4 H*, B-Natriuretic Peptide 496.7 H 01/30/23 23:40: PT 19.9 H, INR 1.7, APTT 48.6 H, Sodium 131 L, Potassium 4.7, Chloride 99, Carbon Dioxide 20.0 L, Anion Gap 12, BUN 22 H, Creatinine 1.26, Estim Creat Clear Calc 39.95, Est GFR (MDRD) Af Amer 71, Est GFR (MDRD) Non-Af 59 L, BUN/Creatinine Ratio 17.5, Glucose 403 H, Calcium 8.5, Magnesium 1.8, Total Bilirubin 0.50, AST 18, ALT 29, Alkaline Phosphatase 99, C-React Prot Ext Range 97.60 H, Total Protein 5.9 L, Albumin 2.2 L, Globulin 3.7, Albumin/Globulin Ratio 0.6 L 01/31/23 00:20: ESR 39 H 01/31/23 00:37: Urine Color Yellow, Urine Clarity Clear, Urine pH 5.0, Ur Specific Hans[place] 1.010, Urine Protein Negative, Urine Glucose (UA) 1000 H, Urine Ketones 15 H, Urine Occult Blood Negative, Urine Nitrite Negative, Urine Bilirubin Negative, Urine Urobilinogen Normal, Ur Leukocyte Esterase 25 H, Urine RBC 0 SEEN, Urine WBC 0 SEEN, Ur Squamous Epith Cells 0 SEEN, Urine Bacteria 1+, Urine Mucus 0 SEEN 01/31/23 00:54: Crossmatch See Detail 01/31/23 00:55: Blood Type A POSITIVE, Antibody Screen NEGATIVE 01/31/23 04:10: Sodium 133 L, Potassium 5.0, Chloride 102, Carbon Dioxide 20.0 L, Anion Gap 11, BUN 26 H, Creatinine 1.22, Estim Creat Clear Calc 41.19, Est GFR (MDRD) Af Amer 74, Est GFR (MDRD) Non-Af 61, BUN/Creatinine Ratio 21.3 H, Glucose 380 H, Lactic Acid 2.6 H*, Calcium 8.0 L, Phosphorus 3.9, Magnesium 1.6, Total Bilirubin 0.60, AST 31, ALT 25, Alkaline Phosphatase 117, Total Protein 5.6 L, Albumin 2.1 L, Globulin 3.5, Albumin/Globulin Ratio 0.6 L 01/31/23 08:00: S.aureus Protein A PCR POSITIVE H, MRSA (PCR) Negative 01/31/23 09:44: POC Glucose 313 H 01/31/23 10:00: WBC 13.2 H, RBC 3.47 L, Hgb 10.2 L, Hct 31.0 L, MCV 89.3, MCH 29.4, MCHC 32.9 D, RDW Std Deviation 47.0 H, RDW Coeff of Danis 14.4, Plt Count 339, MPV 9.5, Immature Gran % (Auto) 0.400, Neut % (Auto) 88.2 H, Lymph % (Auto) 6.1 L, [place] % (Auto) 4.9, Eos % (Auto) 0.0, Baso % (Auto) 0.4, Absolute Neuts (auto) 11.7 H, Absolute Lymphs (auto) 0.81 L, Nucleated RBC % 0 01/31/23 10:35: Troponin I High Sens 4275 H* 01/31/23 12:21: POC Glucose 339 H 01/31/23 12:30: Troponin I High Sens 4260 H* 01/31/23 16:11: POC Glucose 407 H 01/31/23 16:30: Troponin I High Sens 3888 H* Micro: Microbiology 01/31/23 08:00 Wound - Left Foot Gram Stain - Final 01/30/23 23:13 Blood Culture (Wb) - Anticubital Left Blood Culture - Preliminary 01/31/23 00:37 Urine, Clean Catch Urine Culture - Preliminary 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 Electronically Signed: Bakari Palma DO at 0:17 EDT , Foot X-Ray 01/30/23 23:00 IMPRESSION: No evidence of osteomyelitis or soft tissue gas. Electronically Signed: Bakari Palma DO at 0:11 EDT ,
[2023-01-31] MEDS: Atorvastatin Calcium 80 MG Tablet PO (21:28)
[2023-01-31] MEDS: APIXABAN 5 MG TABLET PO (21:28)
[2023-01-31 21:47] LABS: Bedside Glucose 332 mg/dL (74-106)
[2023-02-01] VITALS (20 sets, daily range): BP systolic 80–127; BP diastolic 64–87; PULSE 64–99; RESP 15–28; TEMP 36.1–36.7; O2SAT 90–100; BMI 19.8
[2023-02-01] MEDS: Vancomycin IV 500 MG/100 ML BAG 100 MG IV ×2 (02:14→14:47)
[2023-02-01 03:55] LABS: Absolute Lymphocyte Count 0.86 X10^3/uL (0.83-4.51); Absolute Neutrophil Count 9.4 X10^3/uL (2.0-7.7); Basophil# 0.03 X10^3/uL; Basophil% 0.3 % (0-1); Eosinophil# 0.01 X10^3/uL; Eosinophils% 0.1 % (0-5); Hematocrit 31.6 % (40-54); Hemoglobin 10.2 g/dL (13.0-16.5); Lymphocyte # 0.86 X10^3/ul (0.83-4.51); Lymphocyte % 7.8 % (19-41); Mean Corp Hgb Conc 32.3 g/dL (32-36); Mean Corpuscular Hgb 28.7 pg (27.0-32.0); Mean Corpuscular Volume 88.8 fL (80-94); Mean Platelet Vol. 9.3 fl (6.2-12.0); Monocyte% 5.5 % (0-10); NRBC Flagged by Analyzer 0 % (0-5); Neutrophil # 9.42 X10^3/uL (2.7-7.7); Neutrophil % 85.8 % (47-70); Platelet Count 345 K/mm3 (150-450); RBC Distribution Width CV 14.2 % (11.6-14.6); RBC Distribution Width SD 46.1 fl (35.1-43.9); Red Blood Count 3.56 M/mm3 (4.6-6.2)
[2023-02-01] MEDS: Amiodarone 360 MG in Dextrose 5% Viaflo Bag 192.8 ML 16.7 MG CONT INF (04:00)
[2023-02-01 04:09] LABS: Anion Gap 12 (5-15); BUN 36 mg/dL (7-18); Calcium,Total 8.2 mg/dL (8.5-10.1); Chloride 99 mmol/L (98-107); Creatinine, Serum 1.24 mg/dL (0.70-1.30); EST Glomerular Filtration Rate 60 mL/min (>60); Est Glom Filt Rate - Afr Amer 72 mL/min (>60); Estimated Creatinine Clearance 40.52 ml/min; Glucose 302 mg/dL (74-106); Potassium 4.1 mmol/L (3.5-5.1); Sodium Level 129 mmol/L (136-145)
[2023-02-01 04:13] LABS: Magnesium 1.6 mg/dL (1.6-2.6); Phosphorus 3.8 mg/dL (2.5-4.9)
[2023-02-01] MEDS: 0.9% Saline Lock 10 ML Syringe IV (04:22)
--- NOTE | 2023-02-01 06:12 | PCM.PN.INT ---
Assessment & Plan Assessment/Plan (1) Sepsis: QUALIFIERS: Sepsis acute organ dysfunction status: without acute organ dysfunction Sepsis type: sepsis due to unspecified organism Qualified Code(s): A41.9 - Sepsis, unspecified organism PLAN: Plan RECOMMENDATIONS: 1. Continue empiric antimicrobials, pending infectious work-up. 2. Rate/rhythm control with amiodarone and Cardizem. 3. Continue local wound care. 4. Continue Eliquis and Plavix. 5. Encourage incentive spirometer use while in bed. 6. The patient is medically stable for transfer out of the intensive care unit. We will sign off from a critical care perspective. IMPRESSIONS: 1. Sepsis The patient presented with sepsis due to possible infected foot ulcer with acute sepsis related organ dysfunction as evidenced by hypotension and lactic acidemia. The patient did receive supplemental IV fluid hydration and remains hemodynamically stable at the present time. Podiatry performed a bedside debridement without any plans for surgical intervention. Plan to continue empiric antimicrobials, pending finalized infectious work-up. 2. Anemia Concern for recent blood loss from the left foot in the setting of Eliquis and Plavix coadministration. The patient did receive 2 units of packed red blood cells with subsequent improvement in his blood counts. Continue to monitor H&H daily. Transfuse if hemoglobin drops below 7 g/dL. 3. Peripheral arterial disease The patient is status post recent thrombectomy and stenting by Dr. Camp. The patient will need to be continued on Plavix and Eliquis. 4. Paroxysmal atrial fibrillation with RVR/heart failure with preserved ejection fraction/history of coronary artery disease/chronic kidney disease/diabetes Complicates care, management, recovery and prognosis. Continue supportive care as noted above. Continue Accu-Cheks and sliding scale insulin coverage. This note was generated with [employer] dictation software. It may contain incorrect words, spelling, and punctuation that were not noted in checking the note before signing. Subjective Subjective The patient was seen and examined at the bedside this morning. Events from the last 24 hours have been reviewed. The patient is currently afebrile, hemodynamically stable and maintaining appropriate oxygen saturations on room air. The patient is documented to be overall net +3.8 L for the hospitalization. The patient reported feeling well this morning and more energized. He did undergo bedside debridement yesterday by podiatry. Objective Data Objective Data The patient's most recent lab work, culture data and imaging studies have all been personally reviewed. 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 Vital Signs: Vital Signs Temp Pulse Resp BP Pulse Ox O2 Del Method 98.1 F 95 15 111/73 98 Room Air 02/01/23 00:00 02/01/23 05:00 02/01/23 05:00 02/01/23 05:00 02/01/23 05:00 02/01/23 05:00 Oxygen Delivery Method Room Air Weight: 141 lb 12.116 oz Body Mass Index (BMI) 19.8 Intake & Output: Intake and Output for Last 24 Hours 01/30/23 01/31/23 02/01/23 23:59 23:59 23:59 Intake Total 4919.12 / 4945.82 310.08 / 310.08 Output Total 1100 / 1100 300 / 300 Balance 3819.12 / 3845.82 10.08 / 10.08 Medical Nutrition Assessment Dietitian: Malnutrition Criteria Met Start: 01/31/23 10:44 Freq: Status: Active Protocol: Document 01/31/23 10:44 SLA (Rec: 01/31/23 10:44 [facility] [id number]) Nutrition Malnutrition Evidence of Malnutrition Exists Yes Evidenced By Suboptimal Energy Intake ( Severe),Weight Loss (Severe), Physical Changes (Moderate) Clinical Problem Altered Nutrient-Related Laboratory Values Etiology related to hx DM Signs/Symptoms as evidenced by gluc 380. Status Active Problem Chronic Disease or Condition Related Malnutrition Etiology related to inability to consume energy intake Signs/Symptoms as evidenced by ~28% unintentional wt loss and <75% of estimated nutritional needs x past 5-6 mo [employer]. Pt also noted to have generalized fat/muscle wasting. Status Active Problem Recommendation Dietitian Recommendations/Changes Will continue 1999 martínez CHO Controlled diet Will provide 8oz chocolate glucerna shake at B&D per pt request Will order Oziel bid to help w / wound healing if consumed. Lab / Micro Data Attestation: I reviewed the patient's lab results. 02/01/23 03:46 02/01/23 03:46 Labs: Laboratory Results - last 24 hr 01/31/23 00:54: Crossmatch See Detail 01/31/23 08:00: S.aureus Protein A PCR POSITIVE H, MRSA (PCR) Negative 01/31/23 09:44: POC Glucose 313 H 01/31/23 10:00: WBC 13.2 H, RBC 3.47 L, Hgb 10.2 L, Hct 31.0 L, MCV 89.3, MCH 29.4, MCHC 32.9 D, RDW Std Deviation 47.0 H, RDW Coeff of Danis 14.4, Plt Count 339, MPV 9.5, Immature Gran % (Auto) 0.400, Neut % (Auto) 88.2 H, Lymph % (Auto) 6.1 L, [place] % (Auto) 4.9, Eos % (Auto) 0.0, Baso % (Auto) 0.4, Absolute Neuts (auto) 11.7 H, Absolute Lymphs (auto) 0.81 L, Nucleated RBC % 0 01/31/23 10:35: Troponin I High Sens 4275 H* 01/31/23 12:21: POC Glucose 339 H 01/31/23 12:30: Troponin I High Sens 4260 H* 01/31/23 16:11: POC Glucose 407 H 01/31/23 16:30: Troponin I High Sens 3888 H* 01/31/23 21:26: POC Glucose 332 H 02/01/23 03:46: WBC 11.0, RBC 3.56 L, Hgb 10.2 L, Hct 31.6 L, MCV 88.8, MCH 28.7, MCHC 32.3, RDW Std Deviation 46.1 H, RDW Coeff of Danis 14.2, Plt Count 345, MPV 9.3, Immature Gran % (Auto) 0.500, Neut % (Auto) 85.8 H, Lymph % (Auto) 7.8 L, [place] % (Auto) 5.5, Eos % (Auto) 0.1, Baso % (Auto) 0.3, Absolute Neuts (auto) 9.4 H, Absolute Lymphs (auto) 0.86, Nucleated RBC % 0, Sodium 129 L, Potassium 4.1, Chloride 99, Carbon Dioxide 18.0 L, Anion Gap 12, BUN 36 H, Creatinine 1.24, Estim Creat Clear Calc 40.52, Est GFR (MDRD) Af Amer 72, Est GFR (MDRD) Non-Af 60, BUN/Creatinine Ratio 29.0 H, Glucose 302 H, Calcium 8.2 L, Phosphorus 3.8, Magnesium 1.6 Micro: Microbiology 01/31/23 08:00 Wound - Left Foot Gram Stain - Final 01/30/23 23:13 Blood Culture (Wb) - Anticubital Left Blood Culture - Preliminary 01/31/23 00:37 Urine, Clean Catch Urine Culture - 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 01/31/23 03:40 Mucosa - Nasopharyngeal Respiratory Panel (PCR) - Final 01/31/23 00:40 Urine, Random Legionella Antigen - Final 01/31/23 00:40 Urine, Random Streptococcus pneumoniae Antigen (M - Final Rhythm Strip Rhythm Strip: A-fib Rate: 120 Ectopy: None Physical Exam Const alert and no apparent distress General Appearance: cooperative HEENT normocephalic and head/scalp atraumatic Eyes PERRL, EOMs intact bilaterally and conjunctivae normal Neck supple General: trachea midline Chest inspection of chest normal Resp normal respiratory effort Auscultation: Negative for rales, rhonchi or wheezes Cardio S1 normal heart sound and S2 normal heart sound Rhythm: abnormal rhythm GI normal to inspection, nondistended, normoactive bowel sounds Extremity no clubbing, cyanosis or edema Skin Skin Narrative: Wrapped left lower extremity. Neuro oriented x3, CN's II-XII intact bilaterally and moves all extremities Psych cooperative and affect normal Charges/Coding Visit Charges Inpatient E&M: 91277 Subs Hosp L2
--- NOTE | 2023-02-01 07:10 | PN.HOSP_ITS ---
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 Denies any complaints. Objective Data Objective Data Vital Signs: Vital Signs Temp Pulse Resp BP Pulse Ox O2 Del Method 36.4 C L 94 24 H 108/72 94 Room Air 02/01/23 06:00 02/01/23 06:00 02/01/23 06:00 02/01/23 06:00 02/01/23 06:00 02/01/23 06:00 Oxygen Delivery Method Room Air Weight: 64.3 kg Body Mass Index (BMI) 19.8 Intake & Output: Intake and Output for Last 24 Hours 01/30/23 01/31/23 02/01/23 23:59 23:59 23:59 Intake Total 4919.12 / 4945.82 336.78 / 336.78 Output Total 1100 / 1100 300 / 300 Balance 3819.12 / 3845.82 36.78 / 36.78 Medical Nutrition Assessment Dietitian: Malnutrition Criteria Met Start: 01/31/23 10:44 Freq: Status: Active Protocol: Document 01/31/23 10:44 CHANDRIKA (Rec: 01/31/23 10:44 CHANDRIKA [id number]) Nutrition Malnutrition Evidence of Malnutrition Exists Yes Evidenced By Suboptimal Energy Intake ( Severe),Weight Loss (Severe), Physical Changes (Moderate) Clinical Problem Altered Nutrient-Related Laboratory Values Etiology related to hx DM Signs/Symptoms as evidenced by gluc 380. 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 Pt also noted to have generalized fat/muscle wasting. Status Active Problem Recommendation Dietitian Recommendations/Changes Will continue 1999 martínez CHO Controlled diet Will provide 8oz chocolate glucerna shake at B&D per pt request Will order Oziel bid to help w / wound healing if consumed. Lab / Micro Data 02/01/23 03:46 02/01/23 03:46 Labs: Laboratory Results - last 24 hr 01/31/23 00:54: Crossmatch See Detail 01/31/23 08:00: S.aureus Protein A PCR POSITIVE H, MRSA (PCR) Negative 01/31/23 09:44: POC Glucose 313 H 01/31/23 10:00: WBC 13.2 H, RBC 3.47 L, Hgb 10.2 L, Hct 31.0 L, MCV 89.3, MCH 29.4, MCHC 32.9 D, RDW Std Deviation 47.0 H, RDW Coeff of Danis 14.4, Plt Count 339, MPV 9.5, Immature Gran % (Auto) 0.400, Neut % (Auto) 88.2 H, Lymph % (Auto) 6.1 L, [place] % (Auto) 4.9, Eos % (Auto) 0.0, Baso % (Auto) 0.4, Absolute Neuts (auto) 11.7 H, Absolute Lymphs (auto) 0.81 L, Nucleated RBC % 0 01/31/23 10:35: Troponin I High Sens 4275 H* 01/31/23 12:21: POC Glucose 339 H 01/31/23 12:30: Troponin I High Sens 4260 H* 01/31/23 16:11: POC Glucose 407 H 01/31/23 16:30: Troponin I High Sens 3888 H* 01/31/23 21:26: POC Glucose 332 H 02/01/23 03:46: WBC 11.0, RBC 3.56 L, Hgb 10.2 L, Hct 31.6 L, MCV 88.8, MCH 28.7, MCHC 32.3, RDW Std Deviation 46.1 H, RDW Coeff of Danis 14.2, Plt Count 345, MPV 9.3, Immature Gran % (Auto) 0.500, Neut % (Auto) 85.8 H, Lymph % (Auto) 7.8 L, [place] % (Auto) 5.5, Eos % (Auto) 0.1, Baso % (Auto) 0.3, Absolute Neuts (auto) 9.4 H, Absolute Lymphs (auto) 0.86, Nucleated RBC % 0, Sodium 129 L, Potassium 4.1, Chloride 99, Carbon Dioxide 18.0 L, Anion Gap 12, BUN 36 H, Creatinine 1.24, Estim Creat Clear Calc 40.52, Est GFR (MDRD) Af Amer 72, Est GFR (MDRD) Non-Af 60, BUN/Creatinine Ratio 29.0 H, Glucose 302 H, Calcium 8.2 L, Phosphorus 3.8, Magnesium 1.6 Micro: Microbiology 01/31/23 08:00 Wound - Left Foot Gram Stain - Final 01/30/23 23:13 Blood Culture (Wb) - Anticubital Left Blood Culture - Preliminary 01/31/23 00:37 Urine, Clean Catch Urine Culture - Preliminary GNR lactose scrap preparation supervisor 01/31/23 03:40 Mucosa - Nasopharyngeal Respiratory Panel (PCR) - Final 01/31/23 00:40 Urine, Random Legionella Antigen - Final 01/31/23 00:40 Urine, Random Streptococcus pneumoniae Antigen (M - Final Rhythm Strip Rhythm Strip: A-fib Rate: 120 Ectopy: None Physical Exam Const alert and no apparent distress HEENT head/scalp atraumatic and moist oral mucous membranes Resp normal respiratory effort, no retractions, no use of accessory muscles and clear to auscultation bilaterally Cardio regular rate, regular rhythm, S1 normal heart sound and S2 normal heart sound Cardio Narrative: Murmur at RUSB Extremity Extremity Narrative: left foot wrapped. Assessment & Plan Assessment/Plan (1) Sepsis: QUALIFIERS: Sepsis acute organ dysfunction status: without acute organ dysfunction Sepsis type: sepsis due to unspecified organism Qualified Code(s): A41.9 - Sepsis, unspecified organism PLAN: POA secondary to Acute LLE Diabetic Foot Wound Foot Sepsis POA: Hypotensive, leukocytosis, lactic acidosis, source Received IVF w 2 L IV fluids/30 cc/kg I vancomycin and zosyn (2) Diabetic infection of left foot: PLAN: Wound Cx, Wound MRSA PCR, wound RN consultation dressing changes, elevated LLE Podiatry consultation: bedside debridement performed on 01/31. No additional surgical intervention planned at this time. ESR 39, CRP 97.6 (3) ABLA (acute blood loss anemia): PLAN: 12.9->8.5 likely secondary to recent intervention 01/22/2023 and also associated with recent blood loss acute presentation and 2/2 recent debridement. Had to be rebandaged. Recent LLE wound debridement with onset significant heavy bleeding and ER evaluation 01/28/2023, will continue to closely trend and cautiously continue Plavix and Eliquis. 01/31: patient received 2 units PRBCs. Hg 10.2 02/01: Hg 10.2 (4) Atrial fibrillation with RVR: PLAN: PAF with RVR: to be weaned offamiodarone and diltiazem gtt. metoprolol. echo on 12/16: normal EF. PASP 44. Cardiology consult (5) NSTEMI, initial episode of care: PLAN: Troponins drawn after admission. Peak troponin at 4275, since trending down. Anticoagulated on apixaban Cardiology consult. PLAN: Plan Chronic conditions: * PAD: Patient with recent 01/22/23 LLE aortogram, left lower extremity runoff, IVUS left PT, TP trunk, SFA/popliteal arteries with mechanical thrombectomy of the left FSA/popliteal/TP trunk angioplasty/stent left popliteal/TP trunk angioplasty left SFA per Dr. Camp, will continue Plavix, Eliquis cautiously given recent acute blood loss as noted #1, statin, holding hypertensive regimen given hypotension. * Chronic diastolic CHF, appears currently compensated: Chest x-ray with no acute cardiopulmonary findings, BNP 496.7, most recent echocardiogram noted 12/14/2022 with normal LV size, normal LV systolic function, mild eccentric LV hypertrophy, mean AV gradient 22 mmHg with evidence of moderate aortic stenosis, PASP 44 mmHg. We will cautiously continue Plavix, Eliquis, holding hypertensive regimen given hypertensive presentation as noted, continue statin therapy, judicious hydration given history. * CAD/nonischemic card myopathy: We will cautiously continue aspirin and clopidogrel. Stent placed to mid left circumflex on 03/20/22 * Chronic Kidney Disease Stage II: Admission BUN/Cr 25/08.26, baseline renal f unction 0.8-1.2, repeat BMP in AM. * Diabetes mellitus type II: Hold oral home regimen, ADA diet, accu checks w/ ISS. * Hypertension: Given presentation with hypotension holding all hypertensive regimen, resume once appropriate. * Hyperlipidemia: We will continue patient home statin therapy. * Former tobacco use: Encourage continued tobacco cessation. * BPH: We will continue patient home Flomax and finasteride regimen. * GERD: We will continue patient on PPI. * Partial seizure disorder: lamotrigine DVT prophylaxis: We will continue patient home Eliquis regimen cautiously given acute on chronic anemia however bleeding controlled, low threshold to hold if necessary however. CODE status: Full Charges/Coding Visit Charges Inpatient E&M: 83138 Subs Hosp L2
[2023-02-01] MEDS: Juven (unflavored) Packet 1 PACKET PO ×2 (08:20→16:52)
[2023-02-01] MEDS: Insulin Lispro 100 UNIT/ML INSULN.PEN SC ×4 (08:20→22:37)
[2023-02-01] MEDS: Glucerna Shake 120 ML LIQUID PO ×2 (08:21→16:52)
[2023-02-01 08:48] LABS: Bedside Glucose 309 mg/dL (74-106)
--- NOTE | 2023-02-01 10:25 | PCM.CONS.C ---
Assessment & Plan Assessment/Plan (1) NSTEMI, initial episode of care: PLAN: He does present with leg sepsis and is noted to have elevated cardiac enzymes. The above do not particularly have a rise and fall pattern and may be secondary to demand ischemia. He does have known coronary artery disease as noted above and he did have an echocardiogram performed within the last month which demonstrated preserved ejection fraction of 53% with no regional wall motion abnormalities. My recommendation at this time will be for us to pursue medical therapy (2) Atrial fibrillation with RVR: PLAN: He does present with atrial fibrillation with a rapid ventricular response rate. He has been on IV amiodarone as well as IV diltiazem. With his sepsis under improving control I will recommend that we put him back on beta-shirley, discontinue the amiodarone and wean off the diltiazem. (3) History of coronary artery stent placement: PLAN: He does have a history of coronary artery disease status post previous PCI. He has residual coronary artery disease and I suspect the above is secondary to some of his cardiac enzyme elevation. This was evaluated less than a year ago. The decision was to pursue medical therapy. In the absence of active chest discomfort I would recommend the same. (4) Nonrheumatic aortic (valve) stenosis: PLAN: He does have evidence of moderate aortic valve stenosis with a peak mean gradient of approximately 46/20 mmHg. He is not a candidate for intervention at this particular time. (5) Essential (primary) hypertension: PLAN: His blood pressure appears to be under good control I would not recommend we make any changes. (6) Hyperlipidemia: PLAN: He does have a history of hyperlipidemia and will continue with aggressive risk factor modification. Thank you for allowing me to participate in the care of your patient. Please don't hesitate to call if any issues arise. HPI Consult Data Date of Consult: 02/01/23 HPI Narrative HPI Narrative: AGUSTO CASTILLO, is a 78 M who presents to the emergency room for evaluation of a chronic ulcer of the left foot with necrosis and possible sepsis. He was noted to be in atrial fibrillation with a rapid ventricular response rate and he also had blood work drawn for troponin as well as natruretic peptide which were elevated thus prompting a cardiology consultation. He has a history coronary artery disease status with angioplasty and stenting of his LAD in 2016. Heart catheterization in February 2017 demonstrated demonstrated an occluded right coronary artery, 60% stenosis of the circumflex artery, 95% mid left anterior descending artery stenosis and a 50-60% stenosis of the diagonal vessel. He also has a history of peripheral vascular disease status post atherectomy of the left popliteal vessel in 2013. Patient represented to [facility] in May 2021 for syncope. During ER visit he noted to be hypotensive thought to be related to epistaxis after syncopal/fall. A EKG showed atrial fibrillation RVR. During his admission, he underwent a upper endoscopy that was negative. His atrial fibrillation resolved. Initial troponin was negative and trended to 137. This was thought to be elevated on account of demand in the setting of hemorrhagic shock. He underwent echocardiogram that showed an ejection fraction of 60%, moderately enlarged left atrium, and mild aortic valve stenosis. During cardiology office in February 2022, he had complained of fatigue and underwent a stress test which demonstrated evidence of ischemia. He therefore underwent a cardiac catheterization which demonstrated preserved ejection fraction of 60%, mild calcification of the left main coronary artery, left anterior descending artery with a previously placed stent in the mid LAD which was patent with a first diagonal vessel with a severe 90% stenosis and a 90% distal stenosis in the small vessel. The circumflex artery had a mid 90% stenosis in the right coronary artery was occluded with [id number] collaterals. He was transferred to a tertiary care facility and underwent PCI of the left circumflex artery with a drug-eluting stent placed. The LAD also underwent an IFR which was negative. He has not had any obvious cardiac complaints since then. He had been on anticoagulation for his atrial fibrillation. At this time he appears to be stable but with atrial fibrillation with a rapid ventricular response rate. 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 Anemia Atherosclerosis of coronary artery of [place] heart without angina pectoris Atrial fibrillation BPH (benign prostatic hyperplasia) Cellulitis of foot, left Chronic diastolic (congestive) heart failure Chronic kidney disease Diabetes Erectile dysfunction Essential (primary) hypertension History of non-ST elevation myocardial infarction (NSTEMI) (08/26/16) Hyperlipidemia Inguinal hernia of right side without obstruction or gangrene Iron deficiency anemia Kidney disease Longstanding persistent atrial fibrillation Multinodular goiter Non-ischemic cardiomyopathy 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 Non-pressure chronic ulcer of other part of left foot with fat layer exposed Nonrheumatic aortic (valve) stenosis Paroxysmal atrial fibrillation Partial seizure disorder Peripheral vascular disease, unspecified Peripheral vascular occlusive disease Pre-syncope Seizures Syncope Type 2 diabetes mellitus Type 2 diabetes mellitus with diabetic polyneuropathy Type 2 diabetes mellitus with foot ulcer Type 2 diabetes mellitus with left diabetic foot infection Urinary retention Urinary retention due to benign prostatic hyperplasia Ventral incisional hernia without obstruction or gangrene Wound of foot Home Medications atorvastatin 80 mg tablet 80 mg PO QHS cholesterol 07/21/18 [History Last Taken 12/09/22] lamotrigine 200 mg tablet 200 mg PO BID seizures 07/21/18 [History Last Taken 12/10/22 08:00] metformin 500 mg tablet,extended release 24 hr 1,000 mg PO BID diabetes 07/21/18 [History Last Taken 12/10/22 08:00] finasteride 5 mg tablet 5 mg PO DAILY prostate 08/07/20 [History Last Taken 12/10/22 08:00] magnesium oxide 400 mg PO DAILY supplement 08/07/20 [History Last Taken 12/10/22 08:00] nitroglycerin 0.4 mg sublingual tablet 0.4 mg sublingual Q5M PRN Chest Pain 08/07/20 [History Last Taken Unknown] clopidogrel 75 mg tablet 75 mg PO DAILY Check with primary doctor 03/25/22 [History Last Taken 12/10/22 08:00] isosorbide mononitrate 60 mg tablet,extended release 24 hr 60 mg PO DAILY heart 03/25/22 [History Last Taken 12/10/22 08:00] pantoprazole 40 mg tablet,delayed release 40 mg PO DAILY stomach 03/25/22 [History Last Taken 12/10/22 08:00] apixaban 5 mg tablet (Eliquis) 5 mg PO BID blood thinner 05/09/22 [History Last Taken 12/10/22 08:00] wlpigts-zwtseqczu-shts tablet See Rx Instructions PO .COMPLEX supplement 05/09/22 [History Last Taken Unknown] cholecalciferol (vitamin D3) 50 mcg (2,000 unit) capsule 50 mcg PO DAILY supplement 05/09/22 [History Last Taken 12/10/22 08:00] cinnamon bark 500 mg capsule (Cinnamon) 500 mg PO DAILY supplement 05/09/22 [History Last Taken 12/10/22 08:00] metoprolol tartrate 75 mg tablet 50 mg PO BID heart/blood pressure 05/09/22 [History Last Taken 12/10/22 08:00] tamsulosin 0.4 mg capsule 0.8 mg PO DAILY urination 05/09/22 [History Last Taken 12/10/22 08:00] semaglutide 2 mg/dose (8 mg/3 mL) subcutaneous pen injector (Ozempic) 8 mg subcut QWEEK dm 12/10/22 [History Last Taken 12/03/22] amoxicillin 875 mg-potassium clavulanate 125 mg tablet 1 tab PO BID 6 weeks #84 tabs 12/18/22 [Rx Last Taken Unknown] doxycycline monohydrate 100 mg tablet 100 mg PO BID 6 weeks #84 tabs 12/18/22 [Rx Last Taken Unknown] furosemide 20 mg tablet (Lasix) 20 mg PO DAILY 30 days #30 tabs 12/30/22 [Rx Last Taken Unknown] Allergy/AdvReac Type Severity Reaction Status Date / Time carbamazepine [From Tegretol] Allergy Rash Verified 01/28/23 19:35 Family History Mother Cancer Heart disease Father Hypertension Diabetes Son Heart disease Surgical History History of angioplasty of peripheral vessel (06/28/14) History of atherectomy History of cardioversion (08/21/16) History of colonoscopy (01/2019) History of coronary artery stent placement (03/20/22) History of inguinal hernia repair 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) History of transurethral resection of prostate (01/2019) Status post biopsy of thyroid gland (09/2019) Social History household members: spouse Smoking Status: Former smoker quit date: 08/04/69 pack-years: 10 alcohol intake: current alcohol intake frequency: a few times a month substance use type: does not use ROS Constitutional Constitutional: Denies chills, fatigue or night sweats Eyes Eyes: Denies change in vision, diplopia or erythema ENT HEENT: Denies dysphagia, nasal congestion, nasal discharge or sore throat Cardiovascular Cardiovascular: Denies chest pain, claudication or palpitations Respiratory/Chest Respiratory/Chest: Reports cough; Denies dyspnea or wheezing Gastrointestinal Gastrointestinal: Denies abdominal pain, constipation, diarrhea, nausea or vomiting Genitourinary Genitourinary: Denies dysuria, urinary frequency, urinary hesitancy, urinary incontinence or urinary urgency Musculoskeletal Musculoskeletal: Denies joint pain, joint stiffness or joint swelling Integumentary Integumentary: Denies lesions, pruritus or rash Neurologic Neurologic: Denies dizziness, numbness or seizures Endocrine Endocrinology: Denies change in libido or heat intolerance Hematologic/Lymphatic Hematologic/Lymphatic: Denies easy bleeding or easy bruising Allergic/Immunologic Allergic/Immunologic: Denies wheezing Physical Exam Const alert, oriented x3 and no apparent distress General Appearance: cooperative HEENT hearing grossly normal bilaterally Head and Scalp: atraumatic Eyes EOMs intact bilaterally Neck General: normal visual inspection Chest inspection of chest normal and palpation of chest normal Resp normal respiratory effort Auscultation: clear to auscultation bilaterally Cardio regular rate, regular rhythm, S1 normal heart sound and S2 normal heart sound Jugular Venous Distention: JVD Heart Sounds: murmur systolic II/ harsh left sternal border GI normal to inspection, nondistended, normoactive bowel sounds Extremity normal capillary refill and no pedal edema Peripheral Pulses: Yes pulses 2+ throughout and femoral pulses present Skin no rashes or lesions noted Neuro oriented x3 and CN's II-XII intact bilaterally Psych Appearance: grossly normal and appropriate Risk Stratification Risk Stratification Applicable: Yes Age >/= 65: Yes >/= 3 CAD Risk Factors (HTN, HLD, DM, family hx of CAD, or current smoker): Yes Aspirin Use in the Past 7 Days: Yes Severe Angina (>/= episodes in 24 hours): No EKG ST Changes >/= 0.5mm: No Positive Cardiac Marker: Yes RAMSEY Risk Stratification Score: 4 RAMSEY % Risk: 20% Risk Objective Data Vital Signs: Vital Signs Temp Pulse Resp BP Pulse Ox O2 Del Method 97.5 F L 96 24 H 99/81 H 96 Room Air 02/01/23 06:00 02/01/23 07:00 02/01/23 07:00 02/01/23 07:00 02/01/23 07:00 02/01/23 08:33 Oxygen Delivery Method Room Air Weight: 141 lb 12.116 oz Body Mass Index (BMI) 19.8 Intake & Output: Intake and Output for Last 24 Hours 01/30/23 01/31/23 02/01/23 23:59 23:59 23:59 Intake Total 4919.12 / 4945.82 363.48 / 363.48 Output Total 1100 / 1100 300 / 300 Balance 3819.12 / 3845.82 63.48 / 63.48 Lab / Micro Data 02/01/23 03:46 02/01/23 03:46 Labs: Laboratory Results - last 24 hr 01/31/23 08:00: S.aureus Protein A PCR POSITIVE H, MRSA (PCR) Negative 01/31/23 10:00: WBC 13.2 H, RBC 3.47 L, Hgb 10.2 L, Hct 31.0 L, MCV 89.3, MCH 29.4, MCHC 32.9 D, RDW Std Deviation 47.0 H, RDW Coeff of Danis 14.4, Plt Count 339, MPV 9.5, Immature Gran % (Auto) 0.400, Neut % (Auto) 88.2 H, Lymph % (Auto) 6.1 L, [place] % (Auto) 4.9, Eos % (Auto) 0.0, Baso % (Auto) 0.4, Absolute Neuts (auto) 11.7 H, Absolute Lymphs (auto) 0.81 L, Nucleated RBC % 0 01/31/23 10:35: Troponin I High Sens 4275 H* 01/31/23 12:21: POC Glucose 339 H 01/31/23 12:30: Troponin I High Sens 4260 H* 01/31/23 16:11: POC Glucose 407 H 01/31/23 16:30: Troponin I High Sens 3888 H* 01/31/23 21:26: POC Glucose 332 H 02/01/23 03:46: WBC 11.0, RBC 3.56 L, Hgb 10.2 L, Hct 31.6 L, MCV 88.8, MCH 28.7, MCHC 32.3, RDW Std Deviation 46.1 H, RDW Coeff of Danis 14.2, Plt Count 345, MPV 9.3, Immature Gran % (Auto) 0.500, Neut % (Auto) 85.8 H, Lymph % (Auto) 7.8 L, [place] % (Auto) 5.5, Eos % (Auto) 0.1, Baso % (Auto) 0.3, Absolute Neuts (auto) 9.4 H, Absolute Lymphs (auto) 0.86, Nucleated RBC % 0, Sodium 129 L, Potassium 4.1, Chloride 99, Carbon Dioxide 18.0 L, Anion Gap 12, BUN 36 H, Creatinine 1.24, Estim Creat Clear Calc 40.52, Est GFR (MDRD) Af Amer 72, Est GFR (MDRD) Non-Af 60, BUN/Creatinine Ratio 29.0 H, Glucose 302 H, Calcium 8.2 L, Phosphorus 3.8, Magnesium 1.6 02/01/23 08:16: POC Glucose 309 H Micro: Microbiology 01/31/23 08:00 Wound - Left Foot Gram Stain - Final 01/31/23 08:00 Wound - Left Foot Wound Culture - Preliminary GNR lactose digital campaign specialist 01/31/23 00:37 Urine, Clean Catch Urine Culture - Preliminary GNR lactose digital campaign specialist 01/30/23 23:13 Blood Culture (Wb) - Anticubital Left Blood Culture - Preliminary GNR lactose digital campaign specialist 01/31/23 03:40 Mucosa - Nasopharyngeal Respiratory Panel (PCR) - Final Rhythm Strip Rhythm Strip: A-fib Rate: 120 Ectopy: None Cardiology Labs/Tests 01/31/23 10:00: WBC 13.2 H, RBC 3.47 L, Hgb 10.2 L, Hct 31.0 L, MCV 89.3, MCH 29.4, MCHC 32.9 D, Plt Count 339, MPV 9.5, Immature Gran % (Auto) 0.400, Neut % (Auto) 88.2 H, Lymph % (Auto) 6.1 L, [place] % (Auto) 4.9, Eos % (Auto) 0.0, Baso % (Auto) 0.4, Absolute Neuts (auto) 11.7 H, Nucleated RBC % 0 02/01/23 03:46: WBC 11.0, RBC 3.56 L, Hgb 10.2 L, Hct 31.6 L, MCV 88.8, MCH 28.7, MCHC 32.3, Plt Count 345, MPV 9.3, Immature Gran % (Auto) 0.500, Neut % (Auto) 85.8 H, Lymph % (Auto) 7.8 L, [place] % (Auto) 5.5, Eos % (Auto) 0.1, Baso % (Auto) 0.3, Absolute Neuts (auto) 9.4 H, Nucleated RBC % 0, Sodium 129 L, Potassium 4.1, Chloride 99, Carbon Dioxide 18.0 L, Anion Gap 12, BUN 36 H, Creatinine 1.24, Est GFR (MDRD) Af Amer 72, Est GFR (MDRD) Non-Af 60, BUN/Creatinine Ratio 29.0 H, Glucose 302 H, Calcium 8.2 L, Phosphorus 3.8, Magnesium 1.6 Rhythm: EKG: ECHO: Stress Test: Cardiac Cath: PCI: CT Surgery: Holter monitor: EPS: PPM: CXR: Chest CT Scan:
[2023-02-01] MEDS: APIXABAN 5 MG TABLET PO ×2 (10:39→22:37)
[2023-02-01] MEDS: Pantoprazole Sodium 40 MG Tablet PO (10:39)
[2023-02-01] MEDS: Metoprolol Tartrate 50 MG Tablet PO ×2 (10:39→22:38)
[2023-02-01] MEDS: lamoTRIgine 100 MG Tablet 200 MG PO ×2 (10:39→22:38)
[2023-02-01] MEDS: Finasteride 5 MG Tablet PO (10:39)
[2023-02-01] MEDS: Tamsulosin HCl 0.4 MG Capsule 0.8 MG PO (10:39)
[2023-02-01] MEDS: Clopidogrel Bisulfate 75 MG Tablet PO (10:39)
[2023-02-01] MEDS: DAKIN'S SOL HALF STRENGTH (=0.25%) 1 APPLIC TOPICAL (10:40)
--- NOTE | 2023-02-01 15:01 | NURSING ---
Family request that patient be discharged to rehab facility.
[2023-02-01 15:32] LABS: Vancomycin, Trough Level 12.1 ug/mL (5.0-15.0)
[2023-02-01 15:35] LABS: Bedside Glucose 398 mg/dL (74-106)
--- NOTE | 2023-02-01 16:29 | PCM.RX.CS ---
Consult Antibiotic Management Pharmacy has been consulted to manage selected antiobiotic: Vancomycin Type of Intervention Type of Consult: Follow-up Suspected Infection Suspected Infection: Skin/Soft tissue Labs Labs: Sodium 129 mmol/L (136-145) L 02/01/23 03:46 Potassium 4.1 mmol/L (3.5-5.1) 02/01/23 03:46 Chloride 99 mmol/L (98-107) 02/01/23 03:46 Carbon Dioxide 18.0 mmol/L (21.0-32.0) L 02/01/23 03:46 Anion Gap 12 (5-15) 02/01/23 03:46 BUN 36 mg/dL (7-18) H 02/01/23 03:46 Creatinine 1.24 mg/dL (0.70-1.30) 02/01/23 03:46 Est GFR (MDRD) Af Amer 72 mL/min (>60) 02/01/23 03:46 Est GFR (MDRD) Non-Af 60 mL/min (>60) 02/01/23 03:46 BUN/Creatinine Ratio 29.0 RATIO (10-20) H 02/01/23 03:46 Glucose 302 mg/dL (74-106) H 02/01/23 03:46 Vancomycin Trough 12.1 ug/mL (5.0-15.0) 02/01/23 14:30 Microbiology Microbiology: Microbiology 01/31/23 08:00 Wound - Left Foot Gram Stain - Final 01/31/23 08:00 Wound - Left Foot Wound Culture - Preliminary 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 marketer 01/31/23 00:37 Urine, Clean Catch Urine Culture - Preliminary GNR 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 marketer 01/30/23 23:13 Blood Culture (Wb) - Anticubital Left Blood Culture - Preliminary GNR 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 marketer 01/31/23 03:40 Mucosa - Nasopharyngeal Respiratory Panel (PCR) - Final 01/31/23 00:40 Urine, Random Legionella Antigen - Final 01/31/23 00:40 Urine, Random Streptococcus pneumoniae Antigen (M - Final Goal Trough Goal Trough: 15-20 mcg/mL Pharmacy Plan for Drug Dosing Pharmacy Plan for Drug Dosing: VANCOMYCIN LEVEL RECEIVED Current Vancomycin Dose: 500mg q12h (,) Number of Doses Received: x1 1500mg dose, x2 500mg doses Vancomycin Level: trough resulted at 12.1 Hours Since Last Dose: 12 hours since last dose Renal Function: SrCr 1.24 Renal Function Trend: SrCr stable Lab/Micro: Vancomycin Plan/Comments: increase dose from 500mg q12h to 750mg q12h Pending Level: trough prior to the 4th dose on 02/03/23 at 1330 Pharmacy Service will continue to monitor and adjust dosing as required. Follow-Up Labs Follow-Up Labs: Trough: Vancomycin (02/03/23 @ 1330)
[2023-02-01 17:15] LABS: Bedside Glucose 364 mg/dL (74-106)
[2023-02-01] MEDS: Atorvastatin Calcium 80 MG Tablet PO (22:38)
[2023-02-01 23:26] LABS: Bedside Glucose 339 mg/dL (74-106)
[2023-02-02] VITALS (7 sets, daily range): BP systolic 99–112; BP diastolic 56–95; PULSE 76–95; RESP 18; TEMP 36.1–36.6; O2SAT 92–98; BMI 19.3
[2023-02-02 03:43] LABS: Absolute Lymphocyte Count 1.11 X10^3/uL (0.83-4.51); Absolute Neutrophil Count 7.8 X10^3/uL (2.0-7.7); Basophil# 0.03 X10^3/uL; Basophil% 0.3 % (0-1); Eosinophil# 0.04 X10^3/uL; Eosinophils% 0.4 % (0-5); Hematocrit 35.4 % (40-54); Hemoglobin 11.5 g/dL (13.0-16.5); Lymphocyte # 1.11 X10^3/ul (0.83-4.51); Lymphocyte % 11.5 % (19-41); Mean Corp Hgb Conc 32.5 g/dL (32-36); Mean Corpuscular Hgb 28.6 pg (27.0-32.0); Mean Corpuscular Volume 88.1 fL (80-94); Mean Platelet Vol. 9.7 fl (6.2-12.0); Monocyte# 0.64 X10^3/uL; Monocyte% 6.6 % (0-10); NRBC Flagged by Analyzer 0 % (0-5); Neutrophil # 7.79 X10^3/uL (2.7-7.7); Neutrophil % 80.8 % (47-70); Platelet Count 364 K/mm3 (150-450); RBC Distribution Width CV 14.4 % (11.6-14.6); RBC Distribution Width SD 46.7 fl (35.1-43.9); Red Blood Count 4.02 M/mm3 (4.6-6.2); White Blood Count 9.7 K/mm3 (4.4-11.0)
[2023-02-02 04:06] LABS: Magnesium 2.2 mg/dL (1.6-2.6); Phosphorus 3.5 mg/dL (2.5-4.9)
[2023-02-02 04:14] LABS: Anion Gap 10 (5-15); BUN 50 mg/dL (7-18); BUN/Creat Ratio 36.5 RATIO (10-20); Calcium,Total 8.8 mg/dL (8.5-10.1); Chloride 99 mmol/L (98-107); Creatinine, Serum 1.37 mg/dL (0.70-1.30); EST Glomerular Filtration Rate 53 mL/min (>60); Est Glom Filt Rate - Afr Amer 64 mL/min (>60); Estimated Creatinine Clearance 38.38 ml/min; Glucose 184 mg/dL (74-106); Potassium 4.2 mmol/L (3.5-5.1); Sodium Level 126 mmol/L (136-145)
[2023-02-02] MEDS: Insulin Lispro 100 UNIT/ML INSULN.PEN SC ×4 (06:15→21:27)
[2023-02-02 06:45] LABS: Bedside Glucose 191 mg/dL (74-106)
--- NOTE | 2023-02-02 09:04 | PCM.PN.HOSP ---
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 Objective Data Objective Data Vital Signs: Vital Signs Temp Pulse Resp BP Pulse Ox O2 Del Method O2 Flow Rate 36.1 C L 76 18 99/56 L 98 Room Air 2 02/02/23 03:20 02/02/23 03:20 02/02/23 03:20 02/02/23 03:20 02/02/23 03:20 02/02/23 08:19 02/02/23 03:20 Oxygen Flow Rate (L/min) 2 Oxygen Delivery Method Room Air Weight: 63.1 kg Body Mass Index (BMI) 19.3 Intake & Output: Intake and Output for Last 24 Hours 01/31/23 02/01/23 02/02/23 23:59 23:59 23:59 Intake Total 4919.12 / 4945.82 1036.66 / 1036.66 555 / 555 Output Total 1100 / 1100 650 / 650 500 / 500 Balance 3819.12 / 3845.82 386.66 / 386.66 55 / 55 Medical Nutrition Assessment Dietitian: Malnutrition Criteria Met Start: 01/31/23 10:44 Freq: Status: Active Protocol: Document 01/31/23 10:44 SLA (Rec: 01/31/23 10:44 SLA [id number]) Nutrition Malnutrition Evidence of Malnutrition Exists Yes Evidenced By Suboptimal Energy Intake ( Severe),Weight Loss (Severe), Physical Changes (Moderate) Clinical Problem Altered Nutrient-Related Laboratory Values Etiology related to hx DM Signs/Symptoms as evidenced by gluc 380. 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 Pt also noted to have generalized fat/muscle wasting. Status Active Problem Recommendation Dietitian Recommendations/Changes Will continue 1999 martínez CHO Controlled diet Will provide 8oz chocolate glucerna shake at B&D per pt request Will order Oziel bid to help w / wound healing if consumed. Lab / Micro Data 02/02/23 03:30 02/02/23 03:30 Labs: Laboratory Results - last 24 hr 02/01/23 12:42: POC Glucose 398 H 02/01/23 14:30: Vancomycin Trough 12.1 02/01/23 16:45: POC Glucose 364 H 02/01/23 22:32: POC Glucose 339 H 02/02/23 03:30: WBC 9.7, RBC 4.02 L, Hgb 11.5 L, Hct 35.4 L, MCV 88.1, MCH 28.6, MCHC 32.5, RDW Std Deviation 46.7 H, RDW Coeff of Danis 14.4, Plt Count 364, MPV 9.7, Immature Gran % (Auto) 0.400, Neut % (Auto) 80.8 H, Lymph % (Auto) 11.5 L, [place] % (Auto) 6.6, Eos % (Auto) 0.4, Baso % (Auto) 0.3, Absolute Neuts (auto) 7.8 H, Absolute Lymphs (auto) 1.11, Nucleated RBC % 0, Sodium 126 L, Potassium 4.2, Chloride 99, Carbon Dioxide 17.0 L, Anion Gap 10, BUN 50 H, Creatinine 1.37 H, Estim Creat Clear Calc 38.38, Est GFR (MDRD) Af Amer 64, Est GFR (MDRD) Non-Af 53 L, BUN/Creatinine Ratio 36.5 H, Glucose 184 H, Calcium 8.8, Phosphorus 3.5, Magnesium 2.2 02/02/23 06:14: POC Glucose 191 H Micro: Microbiology 01/30/23 23:26 Blood Culture (Wb) - Left Wrist Blood Culture - Preliminary No growth in 48 hours. 01/30/23 23:13 Blood Culture (Wb) - Anticubital Left Blood Culture - Preliminary Klebsiella pneumoniae sp pneum 01/31/23 00:37 Urine, Clean Catch Urine Culture - Final Klebsiella pneumoniae sp pneum 01/31/23 08:00 Wound - Left Foot Gram Stain - Final 01/31/23 08:00 Wound - Left Foot Wound Culture - Preliminary Klebsiella pneumoniae sp pneum 01/31/23 03:40 Mucosa - Nasopharyngeal Respiratory Panel (PCR) - Final 01/31/23 00:40 Urine, Random Legionella Antigen - Final 01/31/23 00:40 Urine, Random Streptococcus pneumoniae Antigen (M - Final Rhythm Strip Rhythm Strip: A-fib Rate: 120 Ectopy: None Physical Exam Const alert and no apparent distress Resp normal respiratory effort, no retractions, no use of accessory muscles and clear to auscultation bilaterally Cardio regular rate, regular rhythm, S1 normal heart sound and S2 normal heart sound GI normal to inspection, nondistended, normoactive bowel sounds, soft to palpation, non-tender and non-distended Extremity Extremity Narrative: left foot wrapped--did not remove. Assessment & Plan Assessment/Plan (1) Sepsis: QUALIFIERS: Sepsis acute organ dysfunction status: without acute organ dysfunction Sepsis type: sepsis due to unspecified organism Qualified Code(s): A41.9 - Sepsis, unspecified organism PLAN: POA, subsequently resolved secondary to Acute LLE Diabetic Foot Wound Foot and bacteremia Sepsis POA: Hypotensive, leukocytosis, lactic acidosis, source Previously, received IVF w 2 L IV fluids/30 cc/kg vancomycin and zosyn (2) Diabetic infection of left foot: PLAN: Wound Cx showing Klebsiella wound RN consultation dressing changes, elevated LLE Podiatry consultation: bedside debridement performed on 01/31. No additional surgical intervention planned at this time. ESR 39, CRP 97.6 (3) Bacteremia: PLAN: Klebsiella pneumoniae 2/2 to infected diabetic foot wound (4) ABLA (acute blood loss anemia): PLAN: 12.9->8.5 likely secondary to recent intervention 01/22/2023 and also associated with recent blood loss acute presentation and 2/2 recent debridement. Had to be rebandaged. Recent LLE wound debridement with onset significant heavy bleeding and ER evaluation 01/28/2023, will continue to closely trend and cautiously continue Plavix and Eliquis. 01/31: patient received 2 units PRBCs. Hg 10.2 02/01: Hg 10.2, 02/02: 11.5 (5) Atrial fibrillation with RVR: PLAN: PAF with RVR now resolved. Had been on both a drip of amiodarone and diltiazem Now on metoprolol 50 BID. Currently stable. echo on 12/16: normal EF. PASP 44. Cardiology consult (6) NSTEMI, initial episode of care: PLAN: Troponins drawn after admission. Peak troponin at 4275, since trending down. Anticoagulated on apixaban Cardiology consult. PLAN: Plan Chronic conditions: PAD: Patient with recent 01/22/23 LLE aortogram, left lower extremity runoff, IVUS left PT, TP trunk, SFA/popliteal arteries with mechanical thrombectomy of the left FSA/popliteal/TP trunk angioplasty/stent left popliteal/TP trunk angioplasty left SFA per Dr. Camp, will continue Plavix, Eliquis cautiously given recent acute blood loss as noted #1, statin, holding hypertensive regimen given hypotension. Chronic diastolic CHF, appears currently compensated: Chest x-ray with no acute cardiopulmonary findings, BNP 496.7, most recent echocardiogram noted 12/14/2022 with normal LV size, normal LV systolic function, mild eccentric LV hypertrophy, mean AV gradient 22 mmHg with evidence of moderate aortic stenosis, PASP 44 mmHg. We will cautiously continue Plavix, Eliquis, holding hypertensive regimen given hypertensive presentation as noted, continue statin therapy, judicious hydration given history. CAD/nonischemic card myopathy: We will cautiously continue aspirin and clopidogrel. Stent placed to mid left circumflex on 03/20/22 Chronic Kidney Disease Stage II: Admission BUN/Cr /1.26, baseline renal function 0.8-1.2, repeat BMP in AM. Diabetes mellitus type II: Hold oral home regimen, ADA diet, accu checks w/ ISS. Hypertension: Given presentation with hypotension holding all hypertensive regimen, resume once appropriate. Hyperlipidemia: We will continue patient home statin therapy. Former tobacco use: Encourage continued tobacco cessation. BPH: We will continue patient home Flomax and finasteride regimen. GERD: We will continue patient on PPI. Partial seizure disorder: lamotrigine DVT prophylaxis: We will continue patient home Eliquis regimen cautiously given acute on chronic anemia however bleeding controlled, low threshold to hold if necessary however. CODE status: Full Disposition: pending final ID recommendations. SNF v [facility]. Charges/Coding Visit Charges Inpatient E&M: 29150 Subs Hosp L2
[2023-02-02] MEDS: Juven (unflavored) Packet 1 PACKET PO ×2 (09:17→16:56)
[2023-02-02] MEDS: Tamsulosin HCl 0.4 MG Capsule 0.8 MG PO (09:18)
[2023-02-02] MEDS: APIXABAN 5 MG TABLET PO ×2 (09:18→21:28)
[2023-02-02] MEDS: Metoprolol Tartrate 50 MG Tablet PO ×2 (09:18→21:28)
[2023-02-02] MEDS: DAKIN'S SOL HALF STRENGTH (=0.25%) 1 APPLIC TOPICAL (09:18)
[2023-02-02] MEDS: Finasteride 5 MG Tablet PO (09:19)
[2023-02-02] MEDS: Clopidogrel Bisulfate 75 MG Tablet PO (09:19)
[2023-02-02] MEDS: Pantoprazole Sodium 40 MG Tablet PO (09:20)
[2023-02-02] MEDS: lamoTRIgine 100 MG Tablet 200 MG PO ×2 (09:21→21:28)
--- NOTE | 2023-02-02 09:34 | PCM.PN.CARD ---
Subjective Subjective Patient seen and evaluated. Appears to doing much better at this time. Currently in the progressive care unit. Objective Data Vital Signs: Vital Signs Temp Pulse Resp BP Pulse Ox O2 Del Method O2 Flow Rate 97.8 F 95 18 112/95 H 98 Room Air 2 02/02/23 09:15 02/02/23 09:18 02/02/23 09:15 02/02/23 09:18 02/02/23 09:15 02/02/23 09:15 02/02/23 03:20 Oxygen Flow Rate (L/min) 2 Oxygen Delivery Method Room Air Weight: 139 lb 1.787 oz Body Mass Index (BMI) 19.3 Intake & Output: Intake and Output for Last 24 Hours 01/31/23 02/01/23 02/02/23 23:59 23:59 23:59 Intake Total 4919.12 / 4945.82 1036.66 / 1036.66 555 / 555 Output Total 1100 / 1100 650 / 650 500 / 500 Balance 3819.12 / 3845.82 386.66 / 386.66 55 / 55 Lab / Micro Data 02/02/23 03:30 02/02/23 03:30 Labs: Laboratory Results - last 24 hr 02/01/23 12:42: POC Glucose 398 H 02/01/23 14:30: Vancomycin Trough 12.1 02/01/23 16:45: POC Glucose 364 H 02/01/23 22:32: POC Glucose 339 H 02/02/23 03:30: WBC 9.7, RBC 4.02 L, Hgb 11.5 L, Hct 35.4 L, MCV 88.1, MCH 28.6, MCHC 32.5, RDW Std Deviation 46.7 H, RDW Coeff of Danis 14.4, Plt Count 364, MPV 9.7, Immature Gran % (Auto) 0.400, Neut % (Auto) 80.8 H, Lymph % (Auto) 11.5 L, [place] % (Auto) 6.6, Eos % (Auto) 0.4, Baso % (Auto) 0.3, Absolute Neuts (auto) 7.8 H, Absolute Lymphs (auto) 1.11, Nucleated RBC % 0, Sodium 126 L, Potassium 4.2, Chloride 99, Carbon Dioxide 17.0 L, Anion Gap 10, BUN 50 H, Creatinine 1.37 H, Estim Creat Clear Calc 38.38, Est GFR (MDRD) Af Amer 64, Est GFR (MDRD) Non-Af 53 L, BUN/Creatinine Ratio 36.5 H, Glucose 184 H, Calcium 8.8, Phosphorus 3.5, Magnesium 2.2 02/02/23 06:14: POC Glucose 191 H Micro: Microbiology 01/30/23 23:26 Blood Culture (Wb) - Left Wrist Blood Culture - Preliminary No growth in 48 hours. 01/30/23 23:13 Blood Culture (Wb) - Anticubital Left Blood Culture - Preliminary Klebsiella pneumoniae sp pneum 01/31/23 00:37 Urine, Clean Catch Urine Culture - Final Klebsiella pneumoniae sp pneum 01/31/23 08:00 Wound - Left Foot Gram Stain - Final 01/31/23 08:00 Wound - Left Foot Wound Culture - Preliminary Klebsiella pneumoniae sp pneum Rhythm Strip Rhythm Strip: A-fib Rate: 120 Ectopy: None Cardiology Labs/Tests 02/02/23 03:30: WBC 9.7, RBC 4.02 L, Hgb 11.5 L, Hct 35.4 L, MCV 88.1, MCH 28.6, MCHC 32.5, Plt Count 364, MPV 9.7, Immature Gran % (Auto) 0.400, Neut % (Auto) 80.8 H, Lymph % (Auto) 11.5 L, [place] % (Auto) 6.6, Eos % (Auto) 0.4, Baso % (Auto) 0.3, Absolute Neuts (auto) 7.8 H, Nucleated RBC % 0, Sodium 126 L, Potassium 4.2, Chloride 99, Carbon Dioxide 17.0 L, Anion Gap 10, BUN 50 H, Creatinine 1.37 H, Est GFR (MDRD) Af Amer 64, Est GFR (MDRD) Non-Af 53 L, BUN/Creatinine Ratio 36.5 H, Glucose 184 H, Calcium 8.8, Phosphorus 3.5, Magnesium 2.2 Rhythm: EKG: ECHO: Stress Test: Cardiac Cath: PCI: CT Surgery: Holter monitor: EPS: PPM: CXR: Chest CT Scan: Physical Exam Const alert, oriented x3 and no apparent distress General Appearance: cooperative HEENT hearing grossly normal bilaterally Head and Scalp: atraumatic Eyes EOMs intact bilaterally Neck General: normal visual inspection Chest inspection of chest normal and palpation of chest normal Resp normal respiratory effort Auscultation: clear to auscultation bilaterally Cardio regular rate, regular rhythm, S1 normal heart sound and S2 normal heart sound Jugular Venous Distention: JVD GI normal to inspection, nondistended, normoactive bowel sounds Extremity normal capillary refill and no pedal edema Peripheral Pulses: Yes pulses 2+ throughout and femoral pulses present Skin no rashes or lesions noted Neuro oriented x3 and CN's II-XII intact bilaterally Psych Appearance: grossly normal and appropriate Assessment & Plan Assessment/Plan (1) NSTEMI, initial episode of care: PLAN: He does present with leg sepsis and is noted to have elevated cardiac enzymes. The above do not particularly have a rise and fall pattern and may be secondary to demand ischemia. He does have known coronary artery disease as noted above and he did have an echocardiogram performed within the last month which demonstrated preserved ejection fraction of 53% with no regional wall motion abnormalities. My recommendation at this time will be for us to pursue medical therapy (2) Atrial fibrillation with RVR: PLAN: He does present with atrial fibrillation with a rapid ventricular response rate. He is currently back on beta-shirley and maintaining a fairly regular rate. (3) History of coronary artery stent placement: PLAN: He does have a history of coronary artery disease status post previous PCI. He has residual coronary artery disease and I suspect the above is secondary to some of his cardiac enzyme elevation. This was evaluated less than a year ago. The decision was to pursue medical therapy. In the absence of active chest discomfort I would recommend the same. (4) Nonrheumatic aortic (valve) stenosis: PLAN: He does have evidence of moderate aortic valve stenosis with a peak mean gradient of approximately 46/20 mmHg. He is not a candidate for intervention at this particular time. (5) Essential (primary) hypertension: PLAN: His blood pressure appears to be under good control I would not recommend we make any changes. (6) Hyperlipidemia: QUALIFIERS: Hyperlipidemia type: pure hypercholesterolemia Qualified Code(s): E78.00 - Pure hypercholesterolemia, unspecified PLAN: He does have a history of hyperlipidemia and will continue with aggressive risk factor modification. Thank you for allowing me to participate in the care of your patient. Please don't hesitate to call if any issues arise.
[2023-02-02 11:50] LABS: Bedside Glucose 315 mg/dL (74-106)
[2023-02-02] MEDS: Menthol/Lanolin/Calamine/Znox 113 GM Tube 1 APPLIC TOPICAL ×2 (12:53→21:28)
[2023-02-02] MEDS: Glucerna Shake 120 ML LIQUID PO (16:58)
[2023-02-02 17:20] LABS: Bedside Glucose 273 mg/dL (74-106)
[2023-02-02] MEDS: Atorvastatin Calcium 80 MG Tablet PO (21:28)
[2023-02-02 22:12] LABS: Bedside Glucose 294 mg/dL (74-106)
[2023-02-03 03:27] VITALS: BP 100/62; PULSE 86; RESP 18; TEMP 36.6; O2SAT 96
[2023-02-03] MEDS: Insulin Lispro 100 UNIT/ML INSULN.PEN SC ×3 (06:27→16:42)
[2023-02-03 06:58] LABS: Bedside Glucose 176 mg/dL (74-106)
[2023-02-03 07:27] LABS: Magnesium 2.1 mg/dL (1.6-2.6); Phosphorus 2.9 mg/dL (2.5-4.9)
[2023-02-03 08:00] LABS: Anion Gap 8 (5-15); BUN 43 mg/dL (7-18); BUN/Creat Ratio 41.3 RATIO (10-20); Calcium,Total 8.4 mg/dL (8.5-10.1); Chloride 102 mmol/L (98-107); Creatinine, Serum 1.04 mg/dL (0.70-1.30); EST Glomerular Filtration Rate 73 mL/min (>60); Est Glom Filt Rate - Afr Amer 88 mL/min (>60); Estimated Creatinine Clearance 50.56 ml/min; Glucose 165 mg/dL (74-106); Potassium 3.9 mmol/L (3.5-5.1); Sodium Level 131 mmol/L (136-145)
[2023-02-03 08:46] VITALS: O2SAT 96
[2023-02-03] MEDS: Menthol/Lanolin/Calamine/Znox 113 GM Tube 1 APPLIC TOPICAL (08:50)
[2023-02-03] MEDS: Juven (unflavored) Packet 1 PACKET PO ×2 (08:51→16:28)
[2023-02-03] MEDS: Tamsulosin HCl 0.4 MG Capsule 0.8 MG PO (08:51)
[2023-02-03] MEDS: APIXABAN 5 MG TABLET PO (08:52)
[2023-02-03] MEDS: Finasteride 5 MG Tablet PO (08:53)
[2023-02-03] MEDS: Pantoprazole Sodium 40 MG Tablet PO (08:53)
[2023-02-03] MEDS: Clopidogrel Bisulfate 75 MG Tablet PO (08:54)
[2023-02-03] MEDS: lamoTRIgine 100 MG Tablet 200 MG PO (08:54)
[2023-02-03] MEDS: DAKIN'S SOL HALF STRENGTH (=0.25%) 1 APPLIC TOPICAL (08:56)
[2023-02-03 08:57] VITALS: PULSE 109
[2023-02-03] MEDS: Metoprolol Tartrate 50 MG Tablet PO (08:57)
[2023-02-03 09:20] VITALS: BP 114/91; PULSE 74; RESP 17; TEMP 36.3; O2SAT 94
--- NOTE | 2023-02-03 10:24 | CON.PCM.ID_ITS ---
Assessment & Plan Assessment/Plan (1) Bacteremia: PLAN: We will treat the Klebsiella bacteremia and complicated left foot infection with ceftriaxone 2 g IV daily and continue local wound care and supportive care. HPI Consult Data Date of Consult: 02/03/23 HPI Narrative Reason for Consultation: Klebsiella bacteremia HPI Narrative: AGUSTO CASTILLO, is a 78 M who presents multiple comorbidities including chronic atrial fibrillation, longstanding diabetes mellitus status post left foot transmetatarsal amputation in the remote past, peripheral vascular disease who h as had a chronic nonhealing left foot wound and was recently debrided last Friday at the wound care center. In talking to the patient as well as the patient's son at the bedside, after the debridement of the left foot wound on Friday started actively bleeding. Patient then developed fever and chills at home and was brought to the emergency department was admitted. Admission blood cultures are growing Klebsiella species. Left foot wound also growing Klebsiella species as well as his urine culture. In talking to the patient he denies any dysuria or any urinary symptomatology. He feels much better. No cardiopulmonary distress. No gastrointestinal symptoms. He is currently on Zosyn. Microbiology data and sensitivities of the gram-negative negative tom reviewed. [facility] Medical History Acid reflux Acute osteomyelitis of left calcaneus Amputation at midfoot Anemia Atherosclerosis of coronary artery of [place] heart without angina pectoris Atrial fibrillation BPH (benign prostatic hyperplasia) Cellulitis of foot, left Chronic diastolic (congestive) heart failure Chronic kidney disease Diabetes Erectile dysfunction Essential (primary) hypertension History of non-ST elevation myocardial infarction (NSTEMI) (08/26/16) Hyperlipidemia Inguinal hernia of right side without obstruction or gangrene Iron deficiency anemia Kidney disease Longstanding persistent atrial fibrillation Multinodular goiter Non-ischemic cardiomyopathy 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 Non-pressure chronic ulcer of other part of left foot with fat layer exposed Nonrheumatic aortic (valve) stenosis Paroxysmal atrial fibrillation Partial seizure disorder Peripheral vascular disease, unspecified Peripheral vascular occlusive disease Pre-syncope Seizures Syncope Type 2 diabetes mellitus Type 2 diabetes mellitus with diabetic polyneuropathy Type 2 diabetes mellitus with foot ulcer Type 2 diabetes mellitus with left diabetic foot infection Urinary retention Urinary retention due to benign prostatic hyperplasia Ventral incisional hernia without obstruction or gangrene Wound of foot Home Medications atorvastatin 80 mg tablet 80 mg PO QHS cholesterol 07/21/18 [History Last Taken 12/09/22] lamotrigine 200 mg tablet 200 mg PO BID seizures 07/21/18 [History Last Taken 12/10/22 08:00] metformin 500 mg tablet,extended release 24 hr 1,000 mg PO BID diabetes 07/21/18 [History Last Taken 12/10/22 08:00] finasteride 5 mg tablet 5 mg PO DAILY prostate 08/07/20 [History Last Taken 12/10/22 08:00] magnesium oxide 400 mg PO DAILY supplement 08/07/20 [History Last Taken 12/10/22 08:00] nitroglycerin 0.4 mg sublingual tablet 0.4 mg sublingual Q5M PRN Chest Pain 08/07/20 [History Last Taken Unknown] clopidogrel 75 mg tablet 75 mg PO DAILY Check with primary doctor 03/25/22 [History Last Taken 12/10/22 08:00] isosorbide mononitrate 60 mg tablet,extended release 24 hr 60 mg PO DAILY heart 03/25/22 [History Last Taken 12/10/22 08:00] pantoprazole 40 mg tablet,delayed release 40 mg PO DAILY stomach 03/25/22 [History Last Taken 12/10/22 08:00] apixaban 5 mg tablet (Eliquis) 5 mg PO BID blood thinner 05/09/22 [History Last Taken 12/10/22 08:00] cvbefzy-hhodqypww-jmzl tablet See Rx Instructions PO .COMPLEX supplement 05/09/22 [History Last Taken Unknown] cholecalciferol (vitamin D3) 50 mcg (2,000 unit) capsule 50 mcg PO DAILY leblanc pplement 05/09/22 [History Last Taken 12/10/22 08:00] cinnamon bark 500 mg capsule (Cinnamon) 500 mg PO DAILY supplement 05/09/22 [History Last Taken 12/10/22 08:00] metoprolol tartrate 75 mg tablet 50 mg PO BID heart/blood pressure 05/09/22 [History Last Taken 12/10/22 08:00] tamsulosin 0.4 mg capsule 0.8 mg PO DAILY urination 05/09/22 [History Last Taken 12/10/22 08:00] semaglutide 2 mg/dose (8 mg/3 mL) subcutaneous pen injector (Ozempic) 8 mg subcut QWEEK dm 12/10/22 [History Last Taken 12/03/22] amoxicillin 875 mg-potassium clavulanate 125 mg tablet 1 tab PO BID 6 weeks #84 tabs 12/18/22 [Rx Last Taken Unknown] doxycycline monohydrate 100 mg tablet 100 mg PO BID 6 weeks #84 tabs 12/18/22 [Rx Last Taken Unknown] furosemide 20 mg tablet (Lasix) 20 mg PO DAILY 30 days #30 tabs 12/30/22 [Rx Last Taken Unknown] Allergy/AdvReac Type Severity Reaction Status Date / Time carbamazepine [From Tegretol] Allergy Rash Verified 01/28/23 19:35 Family History Mother Cancer Heart disease Father Hypertension Diabetes Son Heart disease Surgical History History of angioplasty of peripheral vessel (06/28/14) History of atherectomy History of cardioversion (08/21/16) History of colonoscopy (01/2019) History of coronary artery stent placement (03/20/22) History of inguinal hernia repair 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) History of transurethral resection of prostate (01/2019) Status post biopsy of thyroid gland (09/2019) Social History household members: spouse Smoking Status: Former smoker quit date: 08/04/69 pack-years: 10 alcohol intake: current alcohol intake frequency: a few times a month substance use type: does not use ROS ROS Narrative As stated in history of present illness others negative Physical Exam Narrative Alert and responsive does not appear toxic lungs are clear heart exam S1-S2 with a systolic murmur. Abdomen soft nontender right foot looks benign. Left foot there is a chronic nonhealing wound in the left foot medial surface and plantar surface. Medical Records Data Medical Nutrition Assessment Dietitian: Malnutrition Criteria Met Start: 01/31/23 10:44 Freq: Status: Active Protocol: Document 01/31/23 10:44 CHANDRIKA (Rec: 01/31/23 10:44 SLA [id number]) Nutrition Malnutrition Evidence of Malnutrition Exists Yes Evidenced By Suboptimal Energy Intake ( Severe),Weight Loss (Severe), Physical Changes (Moderate) Clinical Problem Altered Nutrient-Related Laboratory Values Etiology related to hx DM Signs/Symptoms as evidenced by gluc 380. 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 Pt also noted to have generalized fat/muscle wasting. Status Active Problem Recommendation Dietitian Recommendations/Changes Will continue 1999 martínez CHO Controlled diet Will provide 8oz chocolate glucerna shake at B&D per pt request Will order Oziel bid to help w / wound healing if consumed. Lab / Micro Data 02/02/23 03:30 02/03/23 05:38 Labs: Laboratory Results - last 24 hr 02/02/23 11:27: POC Glucose 315 H 02/02/23 16:50: POC Glucose 273 H 02/02/23 21:27: POC Glucose 294 H 02/03/23 05:38: Sodium 131 L, Potassium 3.9, Chloride 102, Carbon Dioxide 21.0, Anion Gap 8, BUN 43 H, Creatinine 1.04, Estim Creat Clear Calc 50.56, Est GFR (MDRD) Af Amer 88, Est GFR (MDRD) Non-Af 73, BUN/Creatinine Ratio 41.3 H, Glucose 165 H, Calcium 8.4 L, Phosphorus 2.9, Magnesium 2.1 02/03/23 06:26: POC Glucose 176 H Micro: Microbiology 01/31/23 08:00 Wound - Left Foot Gram Stain - Final 01/31/23 08:00 Wound - Left Foot Wound Culture - Final Klebsiella pneumoniae sp pneum Corynebacterium striatum 01/31/23 08:00 Wound - Left Foot Anaerobic Culture - Preliminary Checking for anaerobes, further studies to follow. 01/30/23 23:13 Blood Culture (Wb) - Anticubital Left Blood Culture - Preliminary Klebsiella pneumoniae sp pneum 01/30/23 23:26 Blood Culture (Wb) - Left Wrist Blood Culture - Preliminary No growth in 48 hours. 01/31/23 00:37 Urine, Clean Catch Urine Culture - Final Klebsiella pneumoniae sp pneum Rhythm Strip Rhythm Strip: A-fib Rate: 120 Ectopy: None
--- NOTE | 2023-02-03 10:25 | CASEMGMT ---
Physician spoke with patient and his son and patient is agreeable to group home facility. SW met with patient and his son. Introduced self and role at [facility]. Patient confirmed he is agreeable to SNF. SW provided patient and his son with a list of?providers including quality and resource use data and consistent with patient?s preferred geographic region, medical needs, and insurance network were provided from the [facility]. SW explained they need to pick a few facilities and SW will check with facilities on availability. Plan: SNF pending patient and family choices and accepting facility. Albina Paez HELPER SHEAR OPERATOR MABEL
--- NOTE | 2023-02-03 11:50 | CASEMGMT ---
TIFFANIE spoke with patient and his son and their choices are as follows: [facility], [place], and [facility]. TIFFANIE spoke with Ernestine from [facility] and she will not have any beds until Friday and patient is ready today. TIFFANIE asked Kaylee d/kiara senior planning analyst to please send a referral to [place]. Albina Paez CLERICAL CAR CHECKER MABEL
--- NOTE | 2023-02-03 12:37 | PCM.PROGNOTE ---
Subjective Subjective 78-year-old man seen bedside chronic left lower extremity ulceration at previous transmetatarsal amputation site. Patient doing well today. Recently transferred out of the ICU to PCU. Denies constitutional's or pain at current. No other complaints. Objective Data Objective Data Vital Signs: Vital Signs Temp Pulse Resp BP Pulse Ox O2 Del Method O2 Flow Rate 98 F 109 H 18 100/62 96 Room Air 1 02/03/23 03:27 02/03/23 08:57 02/03/23 03:27 02/03/23 03:27 02/03/23 08:46 02/03/23 10:30 02/02/23 07:43 Oxygen Flow Rate (L/min) 1 Oxygen Delivery Method Room Air Weight: 63.1 kg Body Mass Index (BMI) 19.3 Intake & Output: Intake and Output for Last 24 Hours 02/01/23 02/02/23 02/03/23 23:59 23:59 23:59 Intake Total 1036.66 / 1036.66 1520 / 1520 735 / 735 Output Total 650 / 650 500 / 500 700 / 700 Balance 386.66 / 386.66 1020 / 1020 35 / 35 Medical Nutrition Assessment Dietitian: Malnutrition Criteria Met Start: 01/31/23 10:44 Freq: Status: Active Protocol: Document 01/31/23 10:44 CHANDRIKA (Rec: 01/31/23 10:44 [facility] [id number]) Nutrition Malnutrition Evidence of Malnutrition Exists Yes Evidenced By Suboptimal Energy Intake ( Severe),Weight Loss (Severe), Physical Changes (Moderate) Clinical Problem Altered Nutrient-Related Laboratory Values Etiology related to hx DM Signs/Symptoms as evidenced by gluc 380. 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 Pt also noted to have generalized fat/muscle wasting. Status Active Problem Recommendation Dietitian Recommendations/Changes Will continue 1999 martínez CHO Controlled diet Will provide 8oz chocolate glucerna shake at B&D per pt request Will order Oziel bid to help w / wound healing if consumed. Lab / Micro Data 02/02/23 03:30 02/03/23 05:38 Labs: Laboratory Results - last 24 hr 02/02/23 16:50: POC Glucose 273 H 02/02/23 21:27: POC Glucose 294 H 02/03/23 05:38: Sodium 131 L, Potassium 3.9, Chloride 102, Carbon Dioxide 21.0, Anion Gap 8, BUN 43 H, Creatinine 1.04, Estim Creat Clear Calc 50.56, Est GFR (MDRD) Af Amer 88, Est GFR (MDRD) Non-Af 73, BUN/Creatinine Ratio 41.3 H, Glucose 165 H, Calcium 8.4 L, Phosphorus 2.9, Magnesium 2.1 02/03/23 06:26: POC Glucose 176 H Micro: Microbiology 01/31/23 08:00 Wound - Left Foot Gram Stain - Final 01/31/23 08:00 Wound - Left Foot Wound Culture - Final Klebsiella pneumoniae sp pneum Corynebacterium striatum 01/31/23 08:00 Wound - Left Foot Anaerobic Culture - Preliminary Checking for anaerobes, further studies to follow. 01/30/23 23:13 Blood Culture (Wb) - Anticubital Left Blood Culture - Preliminary Klebsiella pneumoniae sp pneum 01/30/23 23:26 Blood Culture (Wb) - Left Wrist Blood Culture - Preliminary No growth in 48 hours. 01/31/23 00:37 Urine, Clean Catch Urine Culture - Final Klebsiella pneumoniae sp pneum 01/31/23 03:40 Mucosa - Nasopharyngeal Respiratory Panel (PCR) - Final 01/31/23 00:40 Urine, Random Legionella Antigen - Final 01/31/23 00:40 Urine, Random Streptococcus pneumoniae Antigen (M - Final Rhythm Strip Rhythm Strip: A-fib Rate: 120 Ectopy: None Physical Exam Narrative Neurovascular status unchanged from previous evaluation. Wound stable to plantar left forefoot with exposed first metatarsal base at TMA site. Limited wound healing potential. No gross purulence periwound erythema edema malodor at this time. No evidence DVT of bilateral lower extremity. Const alert and oriented x3 Assessment & Plan Assessment/Plan (1) Diabetes mellitus with diabetic polyneuropathy: PLAN: Exam performed Patient stable now out of ICU. Leukocytosis resolved. Vital signs stable. Discussed performing continue local wound care, revisional midfoot amputation, below-knee amputation with patient and family in great detail At this time recommend below-knee amputation as patient has failed wound care for the past 1.5 years. Discussed case with vascular surgery they will follow patient outpatient. ID on board urine and wound growing Klebsiella species. 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
--- NOTE | 2023-02-03 12:59 | CASEMGMT ---
Discharge Planning Referral sent to [facility] via [facility]. Kaylee Oden, Discharge Planning Asst.
[2023-02-03 13:02] LABS: Bedside Glucose 292 mg/dL (74-106)
--- NOTE | 2023-02-03 13:24 | CASEMGMT ---
SW notified patient's son and daughter in law that TCU has no beds available. A referral is out to [facility] and we are awaiting their response. Patient's daughter in law said their next choice after [facility]. SW let them know SW will keep them updated. Albina Paez COMMERCIAL PRODUCTION EDITOR MABEL
--- NOTE | 2023-02-03 13:46 | WOUNDNOTE ---
wound photo: left foot
[2023-02-03 14:23] LABS: Vancomycin, Trough Level 17.4 ug/mL (5.0-15.0)
[2023-02-03 14:55] VITALS: BP 93/66; PULSE 80; RESP 18; TEMP 36.4; O2SAT 93
[2023-02-03] MEDS: Ondansetron 4 MG/2 ML Vial IV (15:18)
[2023-02-03] MEDS: 0.9% Saline Lock 10 ML Syringe IV (15:18)
--- NOTE | 2023-02-03 15:40 | CASEMGMT ---
[facility] patient. TIFFANIE let patient and his family know this information and that patient will go today. TIFFANIE completed a PASRR in [facility]. TIFFANIE explained transport and family has opted to transport patient. Plan: [facility] under skilled level of care on a PASRR. Albina Paez WINDOW INSTALLER MABEL
--- NOTE | 2023-02-03 15:49 | PCM.TXEXTCAR ---
Diet Diet Order/Speech Therapy: 01/31/23 08:27 Diet: Consistent Carb - Calorie Controlled Type of Dietary Supplement:: Glucerna Shake Is pt able to select menu?: Yes Diet Comments: 8 oz chocolate glucerna shake breakfast and dinner daily How many daily calories?: 2000 calorie Routine Orders/Code Status Suppository Frequency: Daily PRN O2 Frequency: PRN Keep PO Greater than or Equal to (%): 92 Routine Lab Work: CBC (3 days) and BMP (3 days) Code Status: Full Code Wound(s) L foot: Wound Type: Neuropathic/Diabetic Foot Ulcer Dressing Change: Dakins moistened gauze Suggestions for Active Care Change Position every (hours): 2 Therapies Weight Bearing: Non weight bearing Extremity Affected:: Left Lower Physical Therapy: Eval and Treat Occupational Therapy: Eval and Treat Problem/Diagnosis (1) Diabetes mellitus with diabetic polyneuropathy: Status: Acute Code(s): E11.42 - Type 2 diabetes mellitus with diabetic polyneuropathy (2) History of transmetatarsal amputation of left foot: Status: Acute Code(s): Z89.432 - Acquired absence of left foot (3) Non-pressure chronic ulcer of other part of left foot with necrosis of muscle: Status: Chronic Code(s): L97.523 - Non-pressure chronic ulcer of other part of left foot with necrosis of muscle Allergies/Procedures Done in Hospital Allergies carbamazepine [From Tegretol] Allergy (Verified 01/28/23 19:35) Rash Procedures: - (xray,cxr) Type of Care/Length of Stay Estimated LOS: Convalescent Care Less Than 30 days Type of Care Needed: Skilled Rehab Potential: Fair Prognosis: Fair Additional Orders/Day of Discharge Day of Discharge: 02/03/23 Dietary and Speech Recommendations Dietitian Recommendations/Changes: Will continue 1999 martínez CHO Controlled diet Will provide 8oz chocolate glucerna shake at B&D per pt request Will order Oziel bid to help w/ wound healing if consumed. Discharge Plan Admission Admit Date/Time: 01/31/23 00:43 Attending Provider: Matilde San Primary Care Provider: Jerry Dee Consulting Providers: Catherine Macias; Jovanni Rodney; Antonio Malloy; Brendan Clark; Wong Carrion; Shaquille Garnett Discharge Orders/Prescriptions Prescriptions: No Action atorvastatin 80 mg tablet 80 mg PO QHS lamotrigine 200 mg tablet 200 mg PO BID metformin 500 mg tablet extended release 24 hr 1,000 mg PO BID clopidogrel 75 mg tablet 75 mg PO DAILY isosorbide mononitrate 60 mg tablet extended release 24 hr 60 mg PO DAILY pantoprazole 40 mg tablet,delayed release (DR/EC) 40 mg PO DAILY [id number] Tablet See Rx Instructions PO .COMPLEX Rx Instructions: orally po; tamsulosin 0.4 mg capsule 0.8 mg PO DAILY cholecalciferol (vitamin D3) 50 mcg (2,000 unit) capsule 50 mcg PO DAILY cinnamon bark [Cinnamon] 500 mg capsule 500 mg PO DAILY Eliquis 5 mg tablet 5 mg PO BID metoprolol tartrate 75 mg tablet 50 mg PO BID nitroglycerin 0.4 MG tablet, sublingual 0.4 mg SUBLINGUAL Q5M PRN (Reason: Chest Pain) finasteride 5 MG tablet 5 mg PO DAILY magnesium oxide 400 MG tablet 400 mg PO DAILY Ozempic 2 mg/dose (8 mg/3 mL) pen injector 8 mg SUBCUT QWEEK Rx Instructions: Wednesdays doxycycline monohydrate 100 mg tablet 100 mg PO BID 42 Days Qty: 84 0RF amoxicillin-pot clavulanate 875-125 mg tablet 1 tab PO BID 42 Days Qty: 84 0RF furosemide [Lasix] 20 mg tablet 20 mg PO DAILY 30 Days Qty: 30 0RF Referrals / Follow Up: Jovanni Rodney MD [Med Staff - Active Staff] - Andrea Baxter DPM [Med Staff - Active Staff] - Jerry Dee MD [Primary Care Provider] -
--- NOTE | 2023-02-03 15:55 | PCM.DC.SUM ---
Providers Date of Admission: 01/31/23 Date of Discharge: 02/03/23 Primary Care Physician: Dr. Jerry Dee MD Consultations 01/31/23 01:54 Consult: Onc/Wound/florist Routine Comment: Reason for Consult:: Diabetic foot wound Consult: Podiatry Routine Consulting Provider: Brendan Clark Reason for Consult: LLE Diabetic foot wound infection, sepsis EMERGENT Consult: No MD Notified: Yes Date Notified: 01/31/23 Time Notified: 00:47 Method of Notification: Text 01/31/23 02:56 Consult: Mid Level Business Analyst / Pulmonary Medicine Routine Consulting Provider: Antonio Malloy Reason for Consult: Sepsis, Diabetic foot infection, PAF with RVR EMERGENT Consult: No MD Notified: Yes Date Notified: 01/31/23 Time Notified: 02:56 Method of Notification: Text 01/31/23 13:07 Consult: Cardiology Routine Consulting Provider: Jovanni Rodney Reason for Consult: afib w RVR. NSTEMI EMERGENT Consult: No Notified: Yes Date Notified: 01/31/23 Time Notified: 13:07 Method of Notification: Text 02/03/23 07:40 Consult: Infectious Disease Routine Consulting Provider: Shaquille Garnett Reason for Consult: Klebsiella Wound/UTI/bACTEREMIA EMERGENT Consult: No MD Notified: Yes Date Notified: 02/03/23 Time Notified: 08:42 Method of Notification: Text Reason For Visit: SEPSIS, LLE DIABETIC FOOT INFECTION Diagnosis Discharge Diagnosis (1) Diabetes mellitus with diabetic polyneuropathy: Status: Acute Code(s): E11.42 - Type 2 diabetes mellitus with diabetic polyneuropathy (2) History of transmetatarsal amputation of left foot: Status: Acute Code(s): Z89.432 - Acquired absence of left foot (3) Non-pressure chronic ulcer of other part of left foot with necrosis of muscle: Status: Chronic Code(s): L97.523 - Non-pressure chronic ulcer of other part of left foot with necrosis of muscle Medications at Discharge Home Medications atorvastatin 80 mg tablet 80 mg PO QHS cholesterol 07/21/18 lamotrigine 200 mg tablet 200 mg PO BID seizures 07/21/18 metformin 500 mg tablet,extended release 24 hr 1,000 mg PO BID diabetes 07/21/18 finasteride 5 mg tablet 5 mg PO DAILY prostate 08/07/20 magnesium oxide 400 mg PO DAILY supplement 08/07/20 nitroglycerin 0.4 mg sublingual tablet 0.4 mg sublingual Q5M PRN Chest Pain 08/07/20 clopidogrel 75 mg tablet 75 mg PO DAILY Check with primary doctor 03/25/22 isosorbide mononitrate 60 mg tablet,extended release 24 hr 60 mg PO DAILY heart 03/25/22 pantoprazole 40 mg tablet,delayed release 40 mg PO DAILY stomach 03/25/22 apixaban 5 mg tablet (Eliquis) 5 mg PO BID blood thinner 05/09/22 bogvsqy-jrltkinzs-jzae tablet See Rx Instructions PO .COMPLEX supplement 05/09/22 cholecalciferol (vitamin D3) 50 mcg (2,000 unit) capsule 50 mcg PO DAILY supplement 05/09/22 cinnamon bark 500 mg capsule (Cinnamon) 500 mg PO DAILY supplement 05/09/22 metoprolol tartrate 75 mg tablet 50 mg PO BID heart/blood pressure 05/09/22 tamsulosin 0.4 mg capsule 0.8 mg PO DAILY urination 05/09/22 semaglutide 2 mg/dose (8 mg/3 mL) subcutaneous pen injector (Ozempic) 8 mg subcut QWEEK dm 12/10/22 furosemide 20 mg tablet (Lasix) 20 mg PO DAILY 30 days #30 tabs 12/30/22 arginine 7 gram-glutam 7 gram-CaHMB 1.5 mhqc-bqppc-vm-min oral pwd pkt (Oziel (with collagen)) 1 packet PO BIDCM #8 ea 02/03/23 ciprofloxacin HCl 500 mg tablet (Cipro) 500 mg PO BID #20 tabs 02/03/23 melatonin 3 mg tablet 3 mg PO QHS PRN PRN Insomnia #0 tabs 02/03/23 menthol 0.44 %-zinc oxide 20.6 % topical ointment (Calmoseptine) 1 applic topical BID #0 grams 02/03/23 nutrition tx glu intol,lac-free,soy-fiber 0.06 gram-1.2 kcal/mL liquid (Glucerna 1.2 Martínez) 120 ml PO TIDCM #0 mL 02/03/23 sennosides 8.6 mg-docusate sodium 50 mg tablet (Stool Softener-Stimulant Laxative) 2 tab PO BID PRN Constipation #0 tabs 02/03/23 sodium hypochlorite 0.25 % solution (HySept) 1 applic topical DAILY #0 mL 02/03/23 Hospital Course Procedures - (X-ray/chest x-ray) Summary of Care Provided Minutes Spent on Discharge: 38 Hospital Course: Mr. Warner is an 78-year-old white male who presented to the emergency department at [facility] on 01/31/2023 with a chief complaint of fatigue and malaise. He also had rigors, nausea, and vomiting. He was evaluated on January 28 in the emergency department with bleeding from his left foot and was discharged home. He recently had undergone angioplasty and stenting by Dr. Camp on January 22. He reported he had been following with Dr. Baxter from podiatry on outpatient basis. Upon presentation he was noted to be afebrile and hemodynamically stable and satting appropriately on room air. CBC demonstrated a leukocytosis with a white count of 14,000, hemoglobin was 8.5 with previous hemoglobin being 13. Initial lactate was 3.4. His serum creatinine was within normal limits and his BNP was noted to be elevated at 500. Urinalysis was unremarkable. Chest x-ray was unremarkable. Left foot x-ray demonstrated no osteomyelitis. The dressing was taken down and found to have malodorous discharge. Cultures were taken and the patient received supplemental IV fluids as well as broad-spectrum antibiotics. Given his dramatic change in his hemoglobin he was given a unit of packed red blood cells and admitted to the medical intensive care unit for further management. He was found to be in A-fib with RVR on presentation as well and has a known history of this. Podiatry, critical care medicine, and cardiology were consulted. Cardiology was consulted for A-fib with RVR as well as troponin elevation with diagnosis of NSTEMI. He had a recent echocardiogram that showed an EF of 53% with no regional wall motion abnormalities and it was suspected that his NSTEMI was related to his sepsis picture as well as his A-fib with RVR. Ongoing medical therapy was reviewed quested and an outpatient reevaluation by cardiology was recommended. With regards to his A-fib with RVR he was initially placed on Cardizem and amiodarone both of which were weaned and he was placed back on p.o. metoprolol at his home dose and with time his RVR resolved. Heart rates at the time of discharge were 60s to about 100. He was maintained on his anticoagulation throughout his hospital course. With regards to his acute blood loss anemia it was felt that it was likely via his foot. He had heavy bleeding at the time of his ER evaluation status post recent debridement. His hemoglobin stabilized and he was able to be maintained on his Plavix and apixaban at the time of discharge. Most recent hemoglobin from 02/02/2023 showed a hemoglobin of 11.5 which was close to his baseline. We do recommend that a repeat CBC and BMP be obtained in a week after discharge. Blood cultures grew out Klebsiella pneumonia, urine culture grew out Klebsiella pneumonia, and wound culture grew out Klebsiella pneumonia as well as corynebacterium. He is maintained on IV antibiotics throughout his hospital course with ceftriaxone. Cultures did show sensitivity to ceftriaxone. Infectious disease was consulted and recommended ongoing oral treatment for another 10 days with Cipro 500 mg p.o. twice daily. Prescription for this was sent to his facility at the time of discharge. No other significant medication changes were made at the time of discharge. I discussed the case with Dr. Baxter from podiatry and he indicated that vascular surgery with recent intervention, plans to discuss further a BKA with him for improved source control and healing. This will be done in outpatient appointment with Dr. Camp. Dr. Baxter will also see the patient weekly as an outpatient. We have asked him to follow-up with cardiology given his troponin elevation during his hospitalization for any further recommendations with regards to his cardiac care. He is to follow-up with his primary care physician within the next month. He was evaluated by physical and Occupational Therapy and they recommended ongoing therapy services. The patient was amenable to placement at the time of discharge and he was able to be placed in facility on 02/03/2023. Patient was discharged in stable condition. Discharge diagnoses: Sepsis-resolved Polymicrobial diabetic foot infection Klebsiella bacteremia Klebsiella UTI A-fib with RVR-resolved NSTEMI type II Acute blood loss anemia PAD Chronic HFpEF-diastolic dysfunction Moderate aortic stenosis CAD Nonischemic cardiomyopathy CKD stage II DM-2 Hypertension Hyperlipidemia BPH GERD Partial seizure disorder History of tobacco abuse Physical Exam Const alert, oriented x3, no apparent distress, average body habitus and well nourished Constitutional Narrative: Elderly white male sitting up in bed, son at bedside, patient appears comfortable nontoxic General Appearance: cooperative, comfortable, well kempt and well developed Orientation / Consciousness: awake, oriented to person, oriented to place and oriented to time Exam Limitations: no limitations Nutritional Appearance: thin HEENT normocephalic, head/scalp atraumatic and moist oral mucous membranes Resp normal respiratory effort, no retractions, no use of accessory muscles and clear to auscultation bilaterally Cardio regular rate, regular rhythm, S1 normal heart sound, S2 normal heart sound, no rub, no gallops and no clicks GI normal to inspection, nondistended, normoactive bowel sounds, soft to palpation and non-tender Extremity no clubbing, cyanosis or edema Extremity Narrative: Pedal pulses are 1+ Skin No no rashes or lesions noted, No no wounds, skin turgor normal and no jaundice Skin Narrative: Left lower extremity diabetic foot infection-images reviewed with significant ulceration status post bedside debridement Neuro oriented x3, moves all extremities and no focal motor deficits Neuro Narrative: Decreased sensation bilateral lower extremities, generalized with this Speech: speech normal Psych affect normal Psych Narrative: Very pleasant, appropriately interactive Medical Records Data Medical Nutrition Assessment Dietitian: Malnutrition Criteria Met Start: 01/31/23 10:44 Freq: Status: Active Protocol: Document 01/31/23 10:44 [facility] (Rec: 01/31/23 10:44 [facility] [id number]) Nutrition Malnutrition Evidence of Malnutrition Exists Yes Evidenced By Suboptimal Energy Intake ( Severe),Weight Loss (Severe), Physical Changes (Moderate) Clinical Problem Altered Nutrient-Related Laboratory Values Etiology related to hx DM Signs/Symptoms as evidenced by gluc 380. 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 Pt also noted to have generalized fat/muscle wasting. Status Active Problem Recommendation Dietitian Recommendations/Changes Will continue 1999 martínez CHO Controlled diet Will provide 8oz chocolate glucerna shake at B&D per pt request Will order Oziel bid to help w / wound healing if consumed. Weight / BMI Weight Weight: 63.1 kg Body Mass Index (BMI) 19.3 ABG / Lab / Microbiology Data 02/02/23 03:30 02/03/23 05:38 Laboratory: Laboratory Results - last 24 hr 02/02/23 16:50: POC Glucose 273 H 02/02/23 21:27: POC Glucose 294 H 02/03/23 05:38: Sodium 131 L, Potassium 3.9, Chloride 102, Carbon Dioxide 21.0, Anion Gap 8, BUN 43 H, Creatinine 1.04, Estim Creat Clear Calc 50.56, Est GFR (MDRD) Af Amer 88, Est GFR (MDRD) Non-Af 73, BUN/Creatinine Ratio 41.3 H, Glucose 165 H, Calcium 8.4 L, Phosphorus 2.9, Magnesium 2.1 02/03/23 06:26: POC Glucose 176 H 02/03/23 11:57: POC Glucose 292 H 02/03/23 13:30: Vancomycin Trough 17.4 H Microbiology: Microbiology 01/30/23 23:13 Blood Culture (Wb) - Anticubital Left Blood Culture - Preliminary Klebsiella pneumoniae sp pneum 01/31/23 08:00 Wound - Left Foot Gram Stain - Final 01/31/23 08:00 Wound - Left Foot Wound Culture - Final Klebsiella pneumoniae sp pneum Corynebacterium striatum 01/31/23 08:00 Wound - Left Foot Anaerobic Culture - Preliminary Checking for anaerobes, further studies to follow. 01/30/23 23:26 Blood Culture (Wb) - Left Wrist Blood Culture - Preliminary No growth in 48 hours. 01/31/23 00:37 Urine, Clean Catch Urine Culture - Final Klebsiella pneumoniae sp pneum 01/31/23 03:40 Mucosa - Nasopharyngeal Respiratory Panel (PCR) - Final 01/31/23 00:40 Urine, Random Legionella Antigen - Final 01/31/23 00:40 Urine, Random Streptococcus pneumoniae Antigen (M - Final Meaningful Use Info Meaningful Use Diagnoses (Choose all that apply): None applicable Discharge Plan Admission Admit Date/Time: 01/31/23 00:43 Primary Reason for Your Visit: Fatigue and Malaise Attending Provider: Matilde San Primary Care Provider: Jerry Dee Consulting Providers: Catherine Macias; Jovanni Rodney; Antonio Malloy; Brendan Clark; Wong Carrion; Shaquille Garnett Discharge Orders/Prescriptions Prescriptions: New Oziel (with collagen) 7-7-1.5 gram Powder In Packet 1 packet PO BIDCM Qty: 8 0RF Glucerna 1.2 Martínez 0.06-1.2 gram-kcal/mL Liquid 120 ml PO TIDCM Qty: 0 0RF sennosides-docusate sodium [Stool Softener-Stimulant Laxat] 8.6-50 mg Tablet 2 tab PO BID PRN (Reason: Constipation) Qty: 0 0RF melatonin 3 mg Tablet 3 mg PO QHS PRN PRN (Reason: Insomnia) Qty: 0 0RF HySept 0.25 % Solution 1 applic topical DAILY Qty: 0 0RF Protocol: *Topical Application Instructions APPLICATION INSTRUCTIONS: left foot wound menthol-zinc oxide [Calmoseptine] 0.44-20.6 % Ointment 1 applic topical BID Qty: 0 0RF Protocol: *Topical Application Instructions APPLICATION INSTRUCTIONS: coccyx ciprofloxacin HCl [Cipro] 500 mg tablet 500 mg PO BID Qty: 20 0RF Rx Instructions: For 10 days Continued atorvastatin 80 mg tablet 80 mg PO QHS lamotrigine 200 mg tablet 200 mg PO BID metformin 500 mg tablet extended release 24 hr 1,000 mg PO BID clopidogrel 75 mg tablet 75 mg PO DAILY isosorbide mononitrate 60 mg tablet extended release 24 hr 60 mg PO DAILY pantoprazole 40 mg tablet,delayed release (DR/EC) 40 mg PO DAILY uyrccjr-[id number]-tmpe Tablet See Rx Instructions PO .COMPLEX Rx Instructions: orally po; tamsulosin 0.4 mg capsule 0.8 mg PO DAILY cholecalciferol (vitamin D3) 50 mcg (2,000 unit) capsule 50 mcg PO DAILY cinnamon bark [Cinnamon] 500 mg capsule 500 mg PO DAILY Eliquis 5 mg tablet 5 mg PO BID metoprolol tartrate 75 mg tablet 50 mg PO BID nitroglycerin 0.4 MG tablet, sublingual 0.4 mg SUBLINGUAL Q5M PRN (Reason: Chest Pain) finasteride 5 MG tablet 5 mg PO DAILY magnesium oxide 400 MG tablet 400 mg PO DAILY Ozempic 2 mg/dose (8 mg/3 mL) pen injector 8 mg SUBCUT QWEEK Rx Instructions: Wednesdays furosemide [Lasix] 20 mg tablet 20 mg PO DAILY 30 Days Qty: 30 0RF Discontinued doxycycline monohydrate 100 mg tablet 100 mg PO BID 42 Days Qty: 84 0RF amoxicillin-pot clavulanate 875-125 mg tablet 1 tab PO BID 42 Days Qty: 84 0RF Referrals / Follow Up: Jovanni Rodney MD [Med Staff - Active Staff] - Within 1 Month Andrea Baxter DPM [Med Staff - Active Staff] - Within 1 Week Wong Camp MD [Med Staff - Active Staff] - Within 2 Weeks Jerry Dee MD [Primary Care Provider] - Within 1 Month Disposition Disposition (needs filled in before D/C Order can be placed): Half-Way Facility Charges/Coding Visit Charges Inpatient E&M: 51214 SNF Disch >30 Min
--- NOTE | 2023-02-03 16:21 | CASEMGMT ---
Discharge Planning Discharge orders and signed med list sent to [facility] via [employer]. Family to transport. Nursing notified. Kaylee Oden, Discharge Planning Asst.
[2023-02-03 16:33] LABS: Bedside Glucose 342 mg/dL (74-106)
[2023-02-03 16:44] VITALS: BP 122/87; PULSE 76; RESP 19; O2SAT 94
--- NOTE | 2023-02-03 17:01 | PN.CARD_ITS ---
Subjective Subjective Patient seen and evaluated. Objective Data Vital Signs: Vital Signs Temp Pulse Resp BP Pulse Ox O2 Del Method O2 Flow Rate 97.5 F L 76 19 H 122/87 H 94 Room Air 1 02/03/23 14:55 02/03/23 16:44 02/03/23 16:44 02/03/23 16:44 02/03/23 16:44 02/03/23 16:44 02/02/23 07:43 Oxygen Flow Rate (L/min) 1 Oxygen Delivery Method Room Air Weight: 139 lb 1.787 oz Body Mass Index (BMI) 19.3 Intake & Output: Intake and Output for Last 24 Hours 02/01/23 02/02/23 02/03/23 23:59 23:59 23:59 Intake Total 1036.66 / 1036.66 1520 / 1520 1420 / 1420 Output Total 650 / 650 500 / 500 950 / 950 Balance 386.66 / 386.66 1020 / 1020 470 / 470 Lab / Micro Data 02/02/23 03:30 02/03/23 05:38 Labs: Laboratory Results - last 24 hr 02/02/23 16:50: POC Glucose 273 H 02/02/23 21:27: POC Glucose 294 H 02/03/23 05:38: Sodium 131 L, Potassium 3.9, Chloride 102, Carbon Dioxide 21.0, Anion Gap 8, BUN 43 H, Creatinine 1.04, Estim Creat Clear Calc 50.56, Est GFR (MDRD) Af Amer 88, Est GFR (MDRD) Non-Af 73, BUN/Creatinine Ratio 41.3 H, Glucose 165 H, Calcium 8.4 L, Phosphorus 2.9, Magnesium 2.1 02/03/23 06:26: POC Glucose 176 H 02/03/23 11:57: POC Glucose 292 H 02/03/23 13:30: Vancomycin Trough 17.4 H 02/03/23 15:02: POC Glucose 342 H Micro: Microbiology 01/30/23 23:13 Blood Culture (Wb) - Anticubital Left Blood Culture - Preliminary Klebsiella pneumoniae sp pneum 01/31/23 08:00 Wound - Left Foot Gram Stain - Final 01/31/23 08:00 Wound - Left Foot Wound Culture - Final Klebsiella pneumoniae sp pneum Corynebacterium striatum 01/31/23 08:00 Wound - Left Foot Anaerobic Culture - Preliminary Checking for anaerobes, further studies to follow. Rhythm Strip Rhythm Strip: A-fib Rate: 120 Ectopy: None Cardiology Labs/Tests 02/03/23 05:38: Sodium 131 L, Potassium 3.9, Chloride 102, Carbon Dioxide 21.0, Anion Gap 8, BUN 43 H, Creatinine 1.04, Est GFR (MDRD) Af Amer 88, Est GFR (MDRD) Non-Af 73, BUN/Creatinine Ratio 41.3 H, Glucose 165 H, Calcium 8.4 L, Phosphorus 2.9, Magnesium 2.1 Rhythm: EKG: ECHO: Stress Test: Cardiac Cath: PCI: CT Surgery: Holter monitor: EPS: PPM: CXR: Chest CT Scan: Physical Exam Const alert, oriented x3, no apparent distress, average body habitus and well nourished Constitutional Narrative: Elderly white male sitting up in bed, son at bedside, patient appears comfortable nontoxic General Appearance: cooperative, comfortable, well kempt and well developed Orientation / Consciousness: awake, oriented to person, oriented to place and oriented to time Exam Limitations: no limitations Nutritional Appearance: thin HEENT normocephalic, head/scalp atraumatic and moist oral mucous membranes Resp normal respiratory effort, no retractions, no use of accessory muscles and clear to auscultation bilaterally Cardio regular rate, regular rhythm, S1 normal heart sound, S2 normal heart sound, no rub, no gallops and no clicks GI normal to inspection, nondistended, normoactive bowel sounds, soft to palpation and non-tender Extremity no clubbing, cyanosis or edema Extremity Narrative: Pedal pulses are 1+ Skin No no rashes or lesions noted, No no wounds, skin turgor normal and no jaundice Skin Narrative: Left lower extremity diabetic foot infection-images reviewed with significant ulceration status post bedside debridement Neuro oriented x3, moves all extremities and no focal motor deficits Neuro Narrative: Decreased sensation bilateral lower extremities, generalized with this Speech: speech normal Psych affect normal Psych Narrative: Very pleasant, appropriately interactive Assessment & Plan Assessment/Plan (1) NSTEMI, initial episode of care: PLAN: He does present with leg sepsis and is noted to have elevated cardiac enzymes. The above do not particularly have a rise and fall pattern and may be secondary to demand ischemia. He does have known coronary artery disease as noted above and he did have an echocardiogram performed within the last month which demonstrated preserved ejection fraction of 53% with no regional wall katrina on abnormalities. * My recommendation at this time will be for us to pursue medical therapy (2) Atrial fibrillation with RVR: PLAN: He does present with atrial fibrillation with a rapid ventricular response rate. He is currently back on beta-shirley and maintaining a fairly regular rate. (3) History of coronary artery stent placement: PLAN: He does have a history of coronary artery disease status post previous PCI. He has residual coronary artery disease and I suspect the above is secondary to some of his cardiac enzyme elevation. This was evaluated less than a year ago. The decision was to pursue medical therapy. In the absence of active chest discomfort I would recommend the same. (4) Nonrheumatic aortic (valve) stenosis: PLAN: He does have evidence of moderate aortic valve stenosis with a peak mean gradient of approximately 46/20 mmHg. He is not a candidate for intervention at this particular time. (5) Essential (primary) hypertension: PLAN: His blood pressure appears to be under good control I would not recommend we make any changes. (6) Hyperlipidemia: QUALIFIERS: Hyperlipidemia type: pure hypercholesterolemia Qualified Code(s): E78.00 - Pure hypercholesterolemia, unspecified PLAN: He does have a history of hyperlipidemia and will continue with aggressive risk factor modification. Thank you for allowing me to participate in the care of your patient. Please don't hesitate to call if any issues arise.
--- NOTE | 2023-02-03 18:44 | NURSING ---
Report given to Daja JOAQUIN at [facility].
== END 2023-02-03 18:44 | disposition skilled nursing facility (03) | DRG 853 ==
LOC: ED 01-31 00:33 → ICU 01-31 01:34 → PCU 02-01 15:33
PROVIDERS: Admitting Provider Family Medicine; Emergency Provider Emergency Medicine; PCP Family Medicine; Referring Provider Family Medicine; Visit Provider Internal Medicine
DX: A41.59 Other Gram-negative sepsis (principal); I21.4 Non-ST elevation (NSTEMI) myocardial infarction; E43 Unspecified severe protein-calorie malnutrition; I13.0 Hypertensive heart and chronic kidney disease with heart failure and stage 1 through stage 4 chronic kidney disease, or unspecified chronic kidney disease; D62 Acute posthemorrhagic anemia; E87.1 Hypo-osmolality and hyponatremia; I50.32 Chronic diastolic (congestive) heart failure; I42.8 Other cardiomyopathies; G40.109 Localization-related (focal) (partial) symptomatic epilepsy and epileptic syndromes with simple partial seizures, not intractable, without status epilepticus; Z68.1 Body mass index [BMI] 19.9 or less, adult; N39.0 Urinary tract infection, site not specified; D63.1 Anemia in chronic kidney disease; E11.22 Type 2 diabetes mellitus with diabetic chronic kidney disease; E86.0 Dehydration; E11.65 Type 2 diabetes mellitus with hyperglycemia; E11.621 Type 2 diabetes mellitus with foot ulcer; E11.42 Type 2 diabetes mellitus with diabetic polyneuropathy; E11.51 Type 2 diabetes mellitus with diabetic peripheral angiopathy without gangrene; I48.0 Paroxysmal atrial fibrillation; L97.523 Non-pressure chronic ulcer of other part of left foot with necrosis of muscle; Z89.432 Acquired absence of left foot; I70.245 Atherosclerosis of native arteries of left leg with ulceration of other part of foot; E78.00 Pure hypercholesterolemia, unspecified; K21.9 Gastro-esophageal reflux disease without esophagitis; N18.2 Chronic kidney disease, stage 2 (mild); I35.0 Nonrheumatic aortic (valve) stenosis; I25.10 Atherosclerotic heart disease of native coronary artery without angina pectoris; I25.2 Old myocardial infarction; B96.1 Klebsiella pneumoniae [K. pneumoniae] as the cause of diseases classified elsewhere; N40.0 Benign prostatic hyperplasia without lower urinary tract symptoms; Z95.5 Presence of coronary angioplasty implant and graft; Z79.01 Long term (current) use of anticoagulants; Z79.02 Long term (current) use of antithrombotics/antiplatelets; Z79.899 Other long term (current) drug therapy; Z79.82 Long term (current) use of aspirin; Z79.84 Long term (current) use of oral hypoglycemic drugs; Z87.891 Personal history of nicotine dependence
CPT/HCPCS: 36415; 71045; 73630; 80048; 80053; 80202; 81001; 82962; 83605; 83735; 83880; 84100; 84484; 85025; 85610; 85652; 85730; 86140; 86850; 86900; 86901; 86920; 87040; 87070; 87075; 87077; 87086; 87088; 87186; 87205; 87449; 87633; 87640; 87811; 93005; 97116; 97162; 97166; 97530; 97802; 99283; 99285; J7030; J7040; J7050; P9016; A4216; J0696; J2405

== ENCOUNTER 2023-02-15 23:26 | Inpatient (IN) | payer MEDICARE, OTHER, SELFPAY ==
[2023-02-15 23:27] VITALS: BP 81/58; PULSE 82; RESP 20; TEMP 36.2; O2SAT 100; BMI 22.2
--- NOTE | 2023-02-15 23:30 | ED.VIS.DYS ---
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 Anemia Anticoagulated Atherosclerosis of coronary artery of [place] heart without angina pectoris Atherosclerosis of [place] artery of extremity with ulceration Atrial fibrillation BPH (benign prostatic hyperplasia) Cellulitis of foot, left Chronic diastolic (congestive) heart failure Chronic kidney disease Diabetes Diabetes mellitus with diabetic polyneuropathy Erectile dysfunction Essential (primary) hypertension History of non-ST elevation myocardial infarction (NSTEMI) (08/26/16) Hyperglycemia due to type 2 diabetes mellitus Hyperlipidemia Inguinal hernia of right side without obstruction or gangrene Iron deficiency anemia Kidney disease Longstanding persistent atrial fibrillation Multinodular goiter Non-ischemic cardiomyopathy 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 Non-pressure chronic ulcer of other part of left foot with fat layer exposed Non-pressure chronic ulcer of other part of left foot with necrosis of muscle Nonrheumatic aortic (valve) stenosis NSTEMI, initial episode of care Paroxysmal atrial fibrillation Partial seizure disorder Peripheral vascular disease, unspecified Peripheral vascular occlusive disease Pre-syncope Seizures Syncope Type 2 diabetes mellitus Type 2 diabetes mellitus with diabetic polyneuropathy Type 2 diabetes mellitus with foot ulcer Type 2 diabetes mellitus with left diabetic foot infection Urinary retention Urinary retention due to benign prostatic hyperplasia Ventral incisional hernia without obstruction or gangrene Wound of foot Home Medications atorvastatin 80 mg tablet 80 mg PO QHS cholesterol 07/21/18 [History Last Taken 12/09/22] lamotrigine 200 mg tablet 200 mg PO BID seizures 07/21/18 [History Last Taken 12/10/22 08:00] metformin 500 mg tablet,extended release 24 hr 1,000 mg PO BID diabetes 07/21/18 [History Last Taken 12/10/22 08:00] finasteride 5 mg tablet 5 mg PO DAILY prostate 08/07/20 [History Last Taken 12/10/22 08:00] magnesium oxide 400 mg PO DAILY supplement 08/07/20 [History Last Taken 12/10/22 08:00] nitroglycerin 0.4 mg sublingual tablet 0.4 mg sublingual Q5M PRN Chest Pain 08/07/20 [History Last Taken Unknown] clopidogrel 75 mg tablet 75 mg PO DAILY Check with primary doctor 03/25/22 [History Last Taken 12/10/22 08:00] isosorbide mononitrate 60 mg tablet,extended release 24 hr 60 mg PO DAILY heart 03/25/22 [History Last Taken 12/10/22 08:00] pantoprazole 40 mg tablet,delayed release 40 mg PO DAILY stomach 03/25/22 [History Last Taken 12/10/22 08:00] apixaban 5 mg tablet (Eliquis) 5 mg PO BID blood thinner 05/09/22 [History Last Taken 12/10/22 08:00] xlorwsf-paglywasm-fmjo tablet See Rx Instructions PO .COMPLEX supplement 05/09/22 [History Last Taken Unknown] cholecalciferol (vitamin D3) 50 mcg (2,000 unit) capsule 50 mcg PO DAILY supplement 05/09/22 [History Last Taken 12/10/22 08:00] cinnamon bark 500 mg capsule (Cinnamon) 500 mg PO DAILY supplement 05/09/22 [History Last Taken 12/10/22 08:00] metoprolol tartrate 75 mg tablet 50 mg PO BID heart/blood pressure 05/09/22 [History Last Taken 12/10/22 08:00] tamsulosin 0.4 mg capsule 0.8 mg PO DAILY urination 05/09/22 [History Last Taken 12/10/22 08:00] semaglutide 2 mg/dose (8 mg/3 mL) subcutaneous pen injector (Ozempic) 8 mg subcut QWEEK dm 12/10/22 [History Last Taken 12/03/22] furosemide 20 mg tablet (Lasix) 20 mg PO DAILY 30 days #30 tabs 12/30/22 [Rx Last Taken Unknown] arginine 7 gram-glutam 7 gram-CaHMB 1.5 [id number]-[id number]-min oral pwd pkt (Oziel (with collagen)) 1 packet PO BIDCM #8 ea 02/03/23 [Rx Last Taken Unknown] ciprofloxacin HCl 500 mg tablet (Cipro) 500 mg PO BID #20 tabs 02/03/23 [Rx Last Taken Unknown] melatonin 3 mg tablet 3 mg PO QHS PRN PRN Insomnia #0 tabs 02/03/23 [Rx Last Taken Unknown] menthol 0.44 %-zinc oxide 20.6 % topical ointment (Calmoseptine) 1 applic topical BID #0 grams 02/03/23 [Rx Last Taken Unknown] nutrition tx glu intol,lac-free,soy-fiber 0.06 gram-1.2 kcal/mL liquid (Glucerna 1.2 Dez) 120 ml PO TIDCM #0 mL 02/03/23 [Rx Last Taken Unknown] sennosides 8.6 mg-docusate sodium 50 mg tablet (Stool Softener-Stimulant Laxative) 2 tab PO BID PRN Constipation #0 tabs 02/03/23 [Rx Last Taken Unknown] sodium hypochlorite 0.25 % solution (HySept) 1 applic topical DAILY #0 mL 02/03/23 [Rx Last Taken Unknown] dulaglutide 0.75 mg/0.5 mL subcutaneous pen injector (Trulicity) 0.75 mg subcut QWEEK 02/15/23 [History Last Taken Unknown] Allergy/AdvReac Type Severity Reaction Status Date / Time carbamazepine [From Tegretol] Allergy Rash Verified 02/12/23 15:10 Family History Mother Cancer Heart disease Father Hypertension Diabetes Son Heart disease Surgical History History of angioplasty of peripheral vessel (06/28/14) History of atherectomy History of cardioversion (08/21/16) History of colonoscopy (01/2019) History of coronary artery stent placement (03/20/22) History of inguinal hernia repair 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 Catherine Macias MD) household members: spouse housing: care home Smoking Status: Former smoker quit date: 08/04/69 pack-years: 10 alcohol intake: current alcohol intake frequency: a few times a month substance use type: does not use EXAM Physical Exam Const Vital Signs: 02/15/23 23:27 02/15/23 23:50 02/15/23 23:50 Temperature 97.1 F L 97.4 F L Temperature Source Temporal Temporal Pulse Rate 82 78 78 Respiratory Rate 20 H 22 H 22 H Respiratory Effort Respiratory Pattern Blood Pressure 81/58 L 81/65 L 81/65 L Blood Pressure Mean 65 70 70 Pulse Ox 100 94 94 Oxygen Delivery Method Nasal Cannula Nasal Cannula Nasal Cannula Oxygen Flow Rate (L/min) 3 3 3 Fraction of Inspired Oxygen (FIO2) 02/15/23 23:54 02/16/23 00:29 02/16/23 00:29 Temperature 97.9 F 97.9 F Temperature Source Oral Oral Pulse Rate 75 75 Respiratory Rate 22 H 22 H Respiratory Effort Normal Respiratory Pattern Blood Pressure 77/67 L 77/67 L Blood Pressure Mean 70 70 Pulse Ox 94 94 Oxygen Delivery Method Nasal Cannula Nasal Cannula Nasal Cannula Oxygen Flow Rate (L/min) 3 3 3 Fraction of Inspired Oxygen (FIO2) 02/16/23 01:15 02/16/23 01:05 02/16/23 01:46 Temperature 97.9 F Temperature Source Oral Pulse Rate 92 98 85 Respiratory Rate 14 23 H 23 H Respiratory Effort Respiratory Pattern Normal Blood Pressure 93/73 93/73 Blood Pressure Mean 79 79 Pulse Ox 96 96 95 Oxygen Delivery Method Nasal Cannula Nasal Cannula Oxygen Flow Rate (L/min) 3 3 Fraction of Inspired Oxygen (FIO2) 30 MDM MDM MDM Narrative Medical decision making narrative: HISTORY OF PRESENT ILLNESS: 78-year-old male with shortness of breath. Notes been worsening over last couple of days. Does note a cough. Notes lower extremity edema. Notes he is in a care home after being discharged in hospital multiple infections including of his left heel and with pneumonia. He denies any fever. Denies any syncope. Denies any chest pain. REVIEW OF SYSTEMS: Pertinent positives: Weakness, fatigue, shortness of breath Pertinent negatives: Syncope, chest pain PHYSICAL EXAM: Nursing triage notes reviewed, Vital signs reviewed Constitutional: please see mdm HENT: MMM Eyes: Pupils equal round and reactive to light, Extraocular muscles intact Neck: No stridor, no JVD, full neck ROM Lungs: focal consolidation, wheezing noted in left upper lung field no conversational dyspnea, no increased work of breathing, Heart: Irregular rate, no murmurs gallops or rub Abdomen: Soft, there is no tenderness, no peritoneal signs Extremities: 2+ pitting edema bilateral lower extremities Neuro: No focal neurological deficits, cranial nerves II through XII intact, 5/5 strength in all extremities. Intact sensation to light touch in all extremities, 2+ reflexes bilateral patella tendons. Normal gait. No ataxia. Skin: Chronic appearing wound to the left foot MEDICAL DECISION MAKING: Chief Complaint: Shortness of breath External records reviewed: Chest x-ray from 01/30/2023 shows no acute process. CT of the chest from 12/30/2022 shows CHF. No demonstrated pulmonary embolism or aortic dissection Factors affecting care: CHF, A-fib, type 2 diabetes, recent hospitalization Social determinants of health: Elderly History obtained from others: The patient's family Consults: Internal medicine ALL IMAGES (IF OBTAINED) HAVE BEEN PERSONALLY REVIEWED AND INTERPRETED BY MYSELF. EKG with rate controlled atrial fibrillation, left axis deviation, normal intervals, no obvious STEMI Lactate elevated concern for endorgan hypoperfusion Troponin elevated concerning for myocardial ischemia BNP elevated concerning for heart failure Magnesium within normal limits Procalcitonin within normal limits CBC with no leukocytosis to suggest systemic inflammation, baseline anemia, no thrombocytopenia noted MDM Narrative: Patient was initially hypotensive, tachypneic on his baseline oxygen he is afebrile. Lungs with asymmetric breath sounds and full consolidation left lung field concerning for pneumonia. The patient was placed in Trendelenburg position and given 1 L normal saline given initial hypotension. I considered the following differential diagnosis: Pneumonia, CHF, ACS, arrhythmia, anemia, COVID, flu, PE I obtained a broad lab and imaging work-up to further elucidate the etiology of the patient's complaints. Chest x-ray showed evidence of pneumonia in the left upper lobe lobe by my read. Labs were remarkable for elevated lactate concerning for endorgan hypoperfusion, troponin also elevated concerning for myocardial ischemia likely demand secondary to hypotension. Patient's BNP was grossly elevated concerning for volume overload and heart failure. Magnesium is within normal limits. COVID and flu are negative. I gave the patient broad-spectrum antibiotics. I did not give a 30 cc/kg bolus given signs and symptoms consistent with heart failure and concern for worsening respiratory status after 1 L fluid bolus. I held off on giving any diuretics in the setting of likely heart failure given hypotension. Did give vancomycin and Zosyn for broad-spectrum antimicrobial coverage. I started the patient on BiPAP after he complained of increased work of breathing after 1 L normal saline. He was only able to tolerate this transiently. I discussed the case with Dr. Macias admitted the patient to the intensive care unit for respiratory failure, hypotension and concern for severe sepsis. The patient and/or family, caregivers express understanding. The patient and/or family, caregivers agrees with the plan. Total critical care time today provided was at least 35 minutes. This excludes separately billable procedures. Critical care time (if documented) is secondary to the patient having high probability of clinically significant/life threatening deterioration in the patient's condition which required my urgent intervention. Shared decision making: I will have a discussion with the patient and or visitors regarding risk/benefits of further testing or admission. They will be made aware of of the risk/benefits inherent in this decision they will be given the opportunity to voice understanding. Lab Data Labs: Laboratory Results - last 24 hr 02/15/23 02/16/23 23:45 00:10 WBC 10.1 RBC 3.89 L Hgb 11.0 L Hct 35.9 L MCV 92.3 MCH 28.3 MCHC 30.6 L RDW Std Deviation 53.5 H RDW Coeff of [place] 15.9 H Plt Count 254 MPV 9.8 Immature Gran % (Auto) 0.500 Neut % (Auto) 78.8 H Lymph % (Auto) 15.0 L [place] % (Auto) 4.7 Eos % (Auto) 0.5 Baso % (Auto) 0.5 Absolute Neuts (auto) 8.0 H Absolute Lymphs (auto) 1.51 Nucleated RBC % 0 Sodium 131 L Potassium 4.4 Chloride 99 Carbon Dioxide 24.0 Anion Gap 8 BUN 55 H Creatinine 1.93 H Estim Creat Clear Calc 31.26 Est GFR (MDRD) Af Amer 43 L Est GFR (MDRD) Non-Af 36 L BUN/Creatinine Ratio 28.5 H Glucose 113 H Lactic Acid 3.8 H* Calcium 8.3 L Magnesium 2.0 Troponin I High Sens 82 H B-Natriuretic Peptide 1089.8 H Procalcitonin < 0.04 Radiography Diagnostic Testing: Clinical Impression(s) from Imaging Studies Chest X-Ray 02/16/23 00:00 IMPRESSION: Persistent bibasilar atelectasis versus infiltrate. Bandlike atelectasis left midlung. Electronically Signed: Felipe Li MD at 1:21 EDT , Chest x-ray was read interpreted myself shows evidence of left midlung infiltrate Discharge Plan Disposition Disposition: Acute Care Hospital [facility] Discharge Date/Time: 02/16/23 02:32
[2023-02-15 23:50] VITALS: BP 81/65; PULSE 78; RESP 22; TEMP 36.3; O2SAT 94
[2023-02-15] MEDS: 0.9% Normal Saline 1,000 ML 999 ML IV (23:53)
[2023-02-16] VITALS (24 sets, daily range): BP systolic 75–150; BP diastolic 45–91; PULSE 59–118; RESP 12–23; TEMP 36.1–36.6; O2SAT 90–100; BMI 22.2
--- NOTE | 2023-02-16 | RAD_ITS ---
INDICATION: Shortness of breath, hypotension EXAMINATION/TECHNIQUE: X-RAY - AP view of chest COMPARISON: Chest x-ray from 01/30/2023 FINDINGS: LINES/DEVICES: None. LUNGS: Interval development of bandlike atelectasis left midlung. Persistent bibasilar opacities. No sizable pleural effusion. No detectable pneumothorax. MEDIASTINUM AND CARDIOVASCULAR STRUCTURES: Heart size within normal limits for imaging technique. Atherosclerotic calcifications along aorta. BONES AND SOFT TISSUES: Skeletal degenerative changes. RAD/Chest 1 View (Portable) IMPRESSION: Persistent bibasilar atelectasis versus infiltrate. Bandlike atelectasis left midlung. Electronically Signed: Felipe Li MD at 1:21 EDT ,
[2023-02-16 00:12] LABS: Absolute Lymphocyte Count 1.51 X10^3/uL (0.83-4.51); Basophil# 0.05 X10^3/uL; Basophil% 0.5 % (0-1); Eosinophil# 0.05 X10^3/uL; Eosinophils% 0.5 % (0-5); Hematocrit 35.9 % (40-54); Lymphocyte # 1.51 X10^3/ul (0.83-4.51); Mean Corp Hgb Conc 30.6 g/dL (32-36); Mean Corpuscular Hgb 28.3 pg (27.0-32.0); Mean Corpuscular Volume 92.3 fL (80-94); Mean Platelet Vol. 9.8 fl (6.2-12.0); Monocyte# 0.47 X10^3/uL; Monocyte% 4.7 % (0-10); NRBC Flagged by Analyzer 0 % (0-5); Neutrophil # 7.97 X10^3/uL (2.7-7.7); Neutrophil % 78.8 % (47-70); Platelet Count 254 K/mm3 (150-450); RBC Distribution Width CV 15.9 % (11.6-14.6); RBC Distribution Width SD 53.5 fl (35.1-43.9); Red Blood Count 3.89 M/mm3 (4.6-6.2); White Blood Count 10.1 K/mm3 (4.4-11.0)
[2023-02-16 00:27] LABS: Anion Gap 8 (5-15); BUN 55 mg/dL (7-18); BUN/Creat Ratio 28.5 RATIO (10-20); Calcium,Total 8.3 mg/dL (8.5-10.1); Chloride 99 mmol/L (98-107); Creatinine, Serum 1.93 mg/dL (0.70-1.30); EST Glomerular Filtration Rate 36 mL/min (>60); Est Glom Filt Rate - Afr Amer 43 mL/min (>60); Estimated Creatinine Clearance 31.26 ml/min; Glucose 113 mg/dL (74-106); Potassium 4.4 mmol/L (3.5-5.1); Sodium Level 131 mmol/L (136-145); Troponin-I HS 82 pg/mL (3.0-78.0)
[2023-02-16 00:35] LABS: BNP,B-Type NATRIURETIC PEPTIDE 1089.8 pg/mL (0-100)
[2023-02-16 01:01] LABS: Lactic Acid 3.8 mmol/L (0.4-1.9)
--- NOTE | 2023-02-16 01:28 | CPS ---
[0120] Pt. transitioned to 3L NC after adamantly refusing to wear the BiPAP at this time.
--- NOTE | 2023-02-16 01:47 | PCM.HP.STD ---
HPI - General General Date of Admission: 02/16/23 Date of Service: 02/16/23 Chief Complaint: Dyspnea. HPI Narrative The patient is an 78 y/o M w/ PMHx: Chronic LLE Wound, Former tobacco use, Chronic anemia, Chronic Diastolic CHF, HTN, HLD, GERD, PAF, BPH, Chronic anemia/Fe deficiency, CAD/Nonischemic cardiomyopathy, Diabetes mellitus type II, Partial seizure disorder, CKD stage II, PAD s/p 12/12/22 left sfa/popliteal thrombectomy/LEVEL VIAL INSIDE GRINDER/stent, left TP trunk LEVEL VIAL INSIDE GRINDER per Dr. Camp with then revision amputation w/ Dr. Baxter 12/11/22 requiring 01/31/23 w/ repeat mechanical thrombectomy/stent left sfa/popliteal/TP trunk, recent discharge 02/03/23 following treatment and evaluation for infected left foot, acute blood loss anemia following recent bleed from his incisional site as well as atrial fibrillation with RVR and NSTEMI likely secondary to demand with septic presentation with also bacteremia specifically with Klebsiella pneumonia and urine culture demonstrating growth with Klebsiella pneumonia as well as his wound culture sensitive to Rocephin with ID consulted and discharged on 10 additional days of ciprofloxacin with plan for future further discussions of BKA for improved source control and healing with most recent follow-up with vascular surgery 02/12/2023 who now re-presents to the [facility] ED on 02/16/23 with shortness of breath which has been worsening over the last couple of days with no cough associated however he has had increased lower extremity swelling with no recent fevers or chills but not improving prompting ED evaluation. Of significant note patient at the skilled facility recently had his Lasix held which is suspected secondary to his rising creatinine of note. Patient family and patient note that the dressing to his left foot has not been changed in at least 24 hours. Work-up in the ED included T97.1, heart rate 82, BP initially 81/50 with most recent repeat 77/67, respiratory rate 20, 100% on 3 L nasal cannula, CBC with WBC 10.1, hemoglobin 11, MCV 92.3, platelet 254 with left shift, BMP with sodium 131, BUN/creatinine 55/1.93, glucose 113, calcium 8.3, troponin 82 significantly decreased from most recent 01/31/23 troponin 3888, BNP 1089.8 increased from most recent 01/30/2023 BNP 496.7, rapid SARS COVID and influenza antigen negative, blood culture x2 pending per ED, chest x-ray with persistent bibasilar atelectasis versus infiltrate and bandlike atelectasis in the left midlung, EKG controlled atrial fibrillation with no acute evidence of ischemia. In the ED patient ministered 1 L normal saline as well as IV vancomycin and IV Zosyn. Patient was transiently placed on BiPAP but did have some difficulty tolerating this. Patient blood pressure did respond to fluids and noted last . 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 Anemia Anticoagulated Atherosclerosis of coronary artery of [place] heart without angina pectoris Atherosclerosis of [place] artery of extremity with ulceration Atrial fibrillation BPH (benign prostatic hyperplasia) Cellulitis of foot, left Chronic diastolic (congestive) heart failure Chronic kidney disease Diabetes Diabetes mellitus with diabetic polyneuropathy Erectile dysfunction Essential (primary) hypertension History of non-ST elevation myocardial infarction (NSTEMI) (08/26/16) Hyperglycemia due to type 2 diabetes mellitus Hyperlipidemia Inguinal hernia of right side without obstruction or gangrene Iron deficiency anemia Kidney disease Longstanding persistent atrial fibrillation Multinodular goiter Non-ischemic cardiomyopathy 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 Non-pressure chronic ulcer of other part of left foot with fat layer exposed Non-pressure chronic ulcer of other part of left foot with necrosis of muscle Nonrheumatic aortic (valve) stenosis NSTEMI, initial episode of care Paroxysmal atrial fibrillation Partial seizure disorder Peripheral vascular disease, unspecified Peripheral vascular occlusive disease Pre-syncope Seizures Syncope Type 2 diabetes mellitus Type 2 diabetes mellitus with diabetic polyneuropathy Type 2 diabetes mellitus with foot ulcer Type 2 diabetes mellitus with left diabetic foot infection Urinary retention Urinary retention due to benign prostatic hyperplasia Ventral incisional hernia without obstruction or gangrene Wound of foot Home Medications atorvastatin 80 mg tablet 80 mg PO QHS cholesterol 07/21/18 [History Last Taken 12/09/22] lamotrigine 200 mg tablet 200 mg PO BID seizures 07/21/18 [History Last Taken 12/10/22 08:00] metformin 500 mg tablet,extended release 24 hr 1,000 mg PO BID diabetes 07/21/18 [History Last Taken 12/10/22 08:00] finasteride 5 mg tablet 5 mg PO DAILY prostate 08/07/20 [History Last Taken 12/10/22 08:00] magnesium oxide 400 mg PO DAILY supplement 08/07/20 [History Last Taken 12/10/22 08:00] nitroglycerin 0.4 mg sublingual tablet 0.4 mg sublingual Q5M PRN Chest Pain 08/07/20 [History Last Taken Unknown] clopidogrel 75 mg tablet 75 mg PO DAILY Check with primary doctor 03/25/22 [History Last Taken 12/10/22 08:00] isosorbide mononitrate 60 mg tablet,extended release 24 hr 60 mg PO DAILY heart 03/25/22 [History Last Taken 12/10/22 08:00] pantoprazole 40 mg tablet,delayed release 40 mg PO DAILY stomach 03/25/22 [History Last Taken 12/10/22 08:00] apixaban 5 mg tablet (Eliquis) 5 mg PO BID blood thinner 05/09/22 [History Last Taken 12/10/22 08:00] fbtfayq-aoniqmrle-rfoj tablet See Rx Instructions PO .COMPLEX supplement 05/09/22 [History Last Taken Unknown] cholecalciferol (vitamin D3) 50 mcg (2,000 unit) capsule 50 mcg PO DAILY supplement 05/09/22 [History Last Taken 12/10/22 08:00] cinnamon bark 500 mg capsule (Cinnamon) 500 mg PO DAILY supplement 05/09/22 [History Last Taken 12/10/22 08:00] metoprolol tartrate 75 mg tablet 50 mg PO BID heart/blood pressure 05/09/22 [History Last Taken 12/10/22 08:00] tamsulosin 0.4 mg capsule 0.8 mg PO DAILY urination 05/09/22 [History Last Taken 12/10/22 08:00] semaglutide 2 mg/dose (8 mg/3 mL) subcutaneous pen injector (Ozempic) 8 mg subcut QWEEK dm 12/10/22 [History Last Taken 12/03/22] furosemide 20 mg tablet (Lasix) 20 mg PO DAILY 30 days #30 tabs 12/30/22 [Rx Last Taken Unknown] arginine 7 gram-glutam 7 gram-CaHMB 1.5 [id number]-ns-min oral pwd pkt (Oziel (with collagen)) 1 packet PO BIDCM #8 ea 02/03/23 [Rx Last Taken Unknown] ciprofloxacin HCl 500 mg tablet (Cipro) 500 mg PO BID #20 tabs 02/03/23 [Rx Last Taken Unknown] melatonin 3 mg tablet 3 mg PO QHS PRN PRN Insomnia #0 tabs 02/03/23 [Rx Last Taken Unknown] menthol 0.44 %-zinc oxide 20.6 % topical ointment (Calmoseptine) 1 applic topical BID #0 grams 02/03/23 [Rx Last Taken Unknown] nutrition tx glu intol,lac-free,soy-fiber 0.06 gram-1.2 kcal/mL liquid (Glucerna 1.2 Dez) 120 ml PO TIDCM #0 mL 02/03/23 [Rx Last Taken Unknown] sennosides 8.6 mg-docusate sodium 50 mg tablet (Stool Softener-Stimulant Laxative) 2 tab PO BID PRN Constipation #0 tabs 02/03/23 [Rx Last Taken Unknown] sodium hypochlorite 0.25 % solution (HySept) 1 applic topical DAILY #0 mL 02/03/23 [Rx Last Taken Unknown] dulaglutide 0.75 mg/0.5 mL subcutaneous pen injector (Trulicity) 0.75 mg subcut QWEEK 02/15/23 [History Last Taken Unknown] Allergy/AdvReac Type Severity Reaction Status Date / Time carbamazepine [From Tegretol] Allergy Rash Verified 02/12/23 15:10 Family History Mother Cancer Heart disease Father Hypertension Diabetes Son Heart disease Surgical History History of angioplasty of peripheral vessel (06/28/14) History of atherectomy History of cardioversion (08/21/16) History of colonoscopy (01/2019) History of coronary artery stent placement (03/20/22) History of inguinal hernia repair 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 Catherine Macias MD) household members: spouse housing: assisted Smoking Status: Former smoker quit date: 08/04/69 pack-years: 10 alcohol intake: current alcohol intake frequency: a few times a month substance use type: does not use ROS ROS Narrative Admission Review of Systems: CONSTITUTIONAL: No weight loss, fever, chills, + weakness or fatigue. HEENT: Eyes: No visual loss, blurred vision, double vision or yellow sclerae. Ears, Nose, Throat: No hearing loss, sneezing, congestion, runny nose or sore throat. SKIN: + LLE diabetic foot wound s/p prior surgery, no marked discharge and no foul odor. CARDIOVASCULAR: + Orthopnea, No chest pain, chest pressure or chest discomfort, palpitations, edema, syncopal events. RESPIRATORY: + shortness of breath, no marked cough nor sputum production, No wheezing, hemoptysis. GASTROINTESTINAL: + anorexia, No nausea, vomiting, diarrhea, abdominal pain, melena, BRBPR. GENITOURINARY: No dysuria, frequency, urgency or retention. NEUROLOGICAL: + Seizure disorder. No headache, dizziness, syncope, paralysis, ataxia, numbness or tingling in the extremities, focal weakness, change in bowel or bladder control. MUSCULOSKELETAL: + muscle, back pain, joint pain or stiffness. HEMATOLOGIC: + anemia, bleeding or bruising. LYMPHATICS: No enlarged nodes. No history of splenectomy. PSYCHIATRIC: No history of depression or anxiety. ENDOCRINOLOGIC: No reports of sweating, cold or heat intolerance. No polyuria or polydipsia. ALLERGIES: No history of asthma, hives, eczema or rhinitis. Vital Signs Vital Signs Vital Signs: 02/15/23 23:27 02/15/23 23:50 02/15/23 23:50 Temperature 97.1 F L 97.4 F L Temperature Source Temporal Temporal Pulse Rate 82 78 78 Respiratory Rate 20 H 22 H 22 H Respiratory Effort Respiratory Pattern Blood Pressure 81/58 L 81/65 L 81/65 L Blood Pressure Mean 65 70 70 Pulse Ox 100 94 94 Oxygen Delivery Method Nasal Cannula Nasal Cannula Nasal Cannula Oxygen Flow Rate (L/min) 3 3 3 Fraction of Inspired Oxygen (FIO2) 02/15/23 23:54 02/16/23 00:29 02/16/23 00:29 Temperature 97.9 F 97.9 F Temperature Source Oral Oral Pulse Rate 75 75 Respiratory Rate 22 H 22 H Respiratory Effort Normal Respiratory Pattern Blood Pressure 77/67 L 77/67 L Blood Pressure Mean 70 70 Pulse Ox 94 94 Oxygen Delivery Method Nasal Cannula Nasal Cannula Nasal Cannula Oxygen Flow Rate (L/min) 3 3 3 Fraction of Inspired Oxygen (FIO2) 02/16/23 01:15 02/16/23 01:05 Temperature Temperature Source Pulse Rate 92 98 Respiratory Rate 14 23 H Respiratory Effort Respiratory Pattern Normal Blood Pressure 93/73 Blood Pressure Mean 79 Pulse Ox 96 96 Oxygen Delivery Method Nasal Cannula Oxygen Flow Rate (L/min) 3 Fraction of Inspired Oxygen (FIO2) 30 Weight Weight: 159 lb 9.835 oz Body Mass Index (BMI) 22.2 Physical Exam Narrative Physical Examination: General: Awake, alert, oriented x 3 and cooperative, seated upright in the ED bed, fatigued appearing, ill appearing, audible wet/moist upper airway sounds. Skin: Extremely pale color, normal turgor, no icterus, no cyanosis, notable left lower extremity plantar medial diabetic foot wound with mild slough/fibrous tissue, no foul odors. HEENT: AT/NC, EOMI, PERRLA, dry MM, no carotid bruits or JVD noted. Lungs: Notable diminished, significant audible upper airway wet/moist sounds, rales bilaterally, mildly coarse and rhonchorous, no wheezing, increased respiratory rate with evident respiratory failure although improving with recent BiPAP attempt, willing to be replaced again currently. Heart: Irregular, currently rate controlled; no gallop, rub audible. Abdomen: Soft, thin, NTTP, ND, distant BS, no HSM. Extremities: No cyanosis, clubbing, or marked edema, see skin. Neurological: Patient awake, alert, oriented as noted, cognitive function intact; pupils equally reactive to light and accommodation, cranial nerves grossly normal, moving all 4 extremities, no focal deficits, strength severely globally decreased secondary to acute presentation. Psychiatric: Affect appears fatigued, ill-appearing, evidence of respiratory distress, no acute evidence of depressive or anxiety feelings. Results Lab / Micro Data 02/15/23 23:45 02/15/23 23:45 Labs: Laboratory Results - last 24 hr 02/15/23 23:45: WBC 10.1, RBC 3.89 L, Hgb 11.0 L, Hct 35.9 L, MCV 92.3, MCH 28.3, MCHC 30.6 L, RDW Std Deviation 53.5 H, RDW Coeff of Danis 15.9 H, Plt Count 254, MPV 9.8, Immature Gran % (Auto) 0.500, Neut % (Auto) 78.8 H, Lymph % (Auto) 15.0 L, [place] % (Auto) 4.7, Eos % (Auto) 0.5, Baso % (Auto) 0.5, Absolute Neuts (auto) 8.0 H, Absolute Lymphs (auto) 1.51, Nucleated RBC % 0, Sodium 131 L, Potassium 4.4, Chloride 99, Carbon Dioxide 24.0, Anion Gap 8, BUN 55 H, Creatinine 1.93 H, Estim Creat Clear Calc 31.26, Est GFR (MDRD) Af Amer 43 L, Est GFR (MDRD) Non-Af 36 L, BUN/Creatinine Ratio 28.5 H, Glucose 113 H, Calcium 8.3 L, Troponin I High Sens 82 H, B-Natriuretic Peptide 1089.8 H 02/16/23 00:10: Lactic Acid 3.8 H* Micro: Microbiology 02/15/23 23:45 Nasal Secretion SARS-CoV-2 & FLU Antigen (Rapid) - Final Radiology Impression Chest X-Ray 02/16/23 00:00 IMPRESSION: Persistent bibasilar atelectasis versus infiltrate. Bandlike atelectasis left midlung. Electronically Signed: Felipe Li MD at 1:21 EDT , Assessment & Plan Assessment/Plan (1) Respiratory failure: PLAN: Plan The patient is an 78 y/o M w/ PMHx: Chronic LLE Wound, Former tobacco use, Chronic anemia, Chronic Diastolic CHF, HTN, HLD, GERD, PAF, BPH, Chronic anemia/Fe deficiency, CAD/Nonischemic cardiomyopathy, Diabetes mellitus type II, Partial seizure disorder, CKD stage II, PAD s/p 12/12/22 left sfa/popliteal thrombectomy/LEVEL VIAL INSIDE GRINDER/stent, left TP trunk LEVEL VIAL INSIDE GRINDER per Dr. Camp with then revision amputation w/ Dr. Baxter 12/11/22 requiring 01/31/23 w/ repeat mechanical thrombectomy/stent left sfa/popliteal/TP trunk, recent discharge 02/03/23 following treatment and evaluation for infected left foot, acute blood loss anemia following recent bleed from his incisional site as well as atrial fibrillation with RVR and NSTEMI likely secondary to demand with septic presentation with also bacteremia specifically with Klebsiella pneumonia and urine culture demonstrating growth with Klebsiella pneumonia as well as his wound culture sensitive to Rocephin with ID consulted and discharged on 10 additional days of ciprofloxacin with plan for future further discussions of BKA for improved source control and healing with most recent follow-up with vascular surgery 02/12/2023 who now re-presents to the [facility] ED on 02/16/23 with shortness of breath which has been worsening over the last couple of days with no cough associated however he has had increased lower extremity swelling with no recent fevers or chills but not improving prompting ED evaluation. #1. Acute Hypoxic Respiratory Failure secondary to Acute Decompensated Diastolic CHF and concurrent Possible Pneumonia, GN/GP Organism potential with Lactic acidosis potentially secondary to infection versus Hypoxia: Chest x-ray radiology read with atelectatic change possible infiltrate however patient is extremely moist appearing on exam with gurgly upper airway sounds and significant rales as well, will admit to the ICU, maintain on cardiac telemetry obtain cardiac enzyme series, obtain serial EKGs, BP very low although did improve with IV fluids in the ED but again given concern for overload would like to avoid giving any further IV fluids and instead once able would like to initiate pulse dose IV lasix diuresis which may require pressor therapy usage, will reattempt BiPAP upon ICU transition and patient notes that he is willing to attempt this again, will request consultation with horticultural specialty grower inside, monitor I/Os, continue medical therapy, obtain TSH and magnesium level. Most recent ECHO noted 12/14/2022 with normal LV size, normal LV systolic function, mild eccentric LV hypertrophy, mean AV gradient 22 mmHg with evidence of moderate aortic stenosis, PASP 44 mmHg. Additionally given possible concern for pneumonia with recent history of Klebsiella pneumonia but prolonged admissions and possible gram-negative/gram-positive organism potential Will maintain on IV vancomycin and IV Zosyn with MRSA screen pending, HOB, IS parameters w/ pending sputum cultures, full respiratory viral panel and urine antigens. Bld cx x 2 obtained in the ED. #2. MAIRA on Chronic Kidney Disease Stage II: Unclear exact etiology but potentially medication related as recently his diuresis was held at facility, admission BUN/Cr 55/1.93, baseline renal function 0.8-1.2, has been trending upward with 02/12/2023 creatinine of facility 1.70 which then led to the diuresis hold, will repeat BMP in AM and if continues to worsen would obtain UFeNa, renal US, UA pending. #3. Recent Klebsiella pneumonia LLE Diabetic Foot Wound Foot with associated bacteremia: Unfortunately patient with no dressing change for at least 24 hours with slough apparent but no foul odor, will continue with wound RN consultation and low threshold to involve podiatry, nonweightbearing, offloading, pain regimen as BP allows, continue Oziel supplementation, nutrition consulted for recommendations. #4. Recent Klebsiella pneumonia complicated urinary tract infection: Patient with no current urinary complaints, as noted given #1 maintain currently on broad-spectrum antibiotic therapy. #5. Chronic normocytic anemia: Admission hemoglobin 11, baseline prior has primarily been 11 although during recent prior admission he did require PRBC administration and has certainly trended down since his prior 13-14 range in 2021, will continue to trend CBC #6. PAF: Holding metoprolol regimen given low blood pressure and also to prioritize IV diuresis with Lasix if able, we will continue patient home Eliquis regimen. #7. PAD: Patient with recent 01/22/23 LLE aortogram, left lower extremity runoff, IVUS left PT, TP trunk, SFA/popliteal arteries with mechanical thrombectomy of the left FSA/popliteal/TP trunk angioplasty/stent left popliteal/TP trunk angioplasty left SFA per Dr. Camp, will continue Plavix, Eliquis, statin, holding hypertensive regimen given hypotension. #8. CAD/nonischemic card myopathy: We will continue Plavix, Eliquis therapy, holding hypertensive regimen given hypotension, continue statin therapy. #9. Diabetes mellitus type II: Hold oral home regimen, NPO status until oral intake safe, accu checks w/ ISS. #10. Hypertension: Given presentation with hypotension holding all hypertensive regimen, resume once appropriate. #11. Hyperlipidemia: We will continue patient home statin therapy. #12. Former tobacco use: Encourage continued tobacco cessation. #13. BPH: We will continue patient home Flomax and finasteride regimen. #14. GERD: We will continue patient on PPI. #15. Partial seizure disorder: We will continue patient home lamotrigine regimen. #16. DVT prophylaxis: Continue home eliquis regimen. #16. CODE status: Patient MACKENZIE is his who is present and his son and [id number] are a secondary and living will is currently in place. Discussed CODE status at length including difference between FULL code, DNR-CCA and DNR-CC status. Following discussions about the differences in these status, requested Full Code status. Discussed frankly his precarious status with recent serial admissions and notable co-morbidities with the likelihood of a decent outcome should he have cardiopulmonary arrest being low. Advanced Care Planning Face to Face Time: 16 minutes. Admission Evaluation Time spent evaluating chart, patient history, patient evaluation, care planning and discussion with specialists: 75 minutes. Charges/Coding Visit Charges Inpatient E&M: 50638 Init Hosp L3 Procedures Hospitalists Procedures: 63338 Advncd Care Plan 30 Min
[2023-02-16 03:00] LABS: Procalcitonin < 0.04 ng/mL (0.00-0.09)
[2023-02-16] MEDS: Furosemide 20 MG/2 ML VIAL IV (03:34)
[2023-02-16] MEDS: Vancomycin IV 1,000 MG/200 ML BAG 200 MG IV (03:41)
[2023-02-16 03:43] LABS: Bedside Glucose 49 mg/dL (74-106)
[2023-02-16] MEDS: Dextrose 50%-Water 25 GM/50 ML DISP.SYRIN IV (03:50)
[2023-02-16 04:15] LABS: Reflex Lactate? Y
[2023-02-16 04:28] LABS: Bedside Glucose 139 mg/dL (74-106)
--- NOTE | 2023-02-16 06:06 | PCM.RX.CS ---
Consult Antibiotic Management Pharmacy has been consulted to manage selected antiobiotic: Vancomycin Type of Intervention Type of Consult: New start Suspected Infection Suspected Infection: Pneumonia Labs Labs: Sodium 131 mmol/L (136-145) L 02/15/23 23:45 Potassium 4.4 mmol/L (3.5-5.1) 02/15/23 23:45 Chloride 99 mmol/L (98-107) 02/15/23 23:45 Carbon Dioxide 24.0 mmol/L (21.0-32.0) 02/15/23 23:45 Anion Gap 8 (5-15) 02/15/23 23:45 BUN 55 mg/dL (7-18) H 02/15/23 23:45 Creatinine 1.93 mg/dL (0.70-1.30) H 02/15/23 23:45 Est GFR (MDRD) Af Amer 43 mL/min (>60) L 02/15/23 23:45 Est GFR (MDRD) Non-Af 36 mL/min (>60) L 02/15/23 23:45 BUN/Creatinine Ratio 28.5 RATIO (10-20) H 02/15/23 23:45 Glucose 113 mg/dL (74-106) H 02/15/23 23:45 Microbiology Microbiology: Microbiology 02/15/23 23:45 Nasal Secretion SARS-CoV-2 & FLU Antigen (Rapid) - Final Dosing Weight Weight used for dosin.2 kg Estimated Creatinine Clearance Estimated Creatinine Clearance: 31.1 Pharmacy Plan for Drug Dosing Pharmacy Plan for Drug Dosing: Pharmacy Service will continue to monitor and adjust dosing as required. Follow-Up Labs Follow-Up Labs: Trough: Vancomycin Date/Time Labs Ordered Labs to be done on [date and time ordered]: 02/18 @ 0304
--- NOTE | 2023-02-16 06:24 | CON.PCM.CC_ITS ---
Assessment & Plan Assessment/Plan (1) Respiratory failure: PLAN: Plan RECOMMENDATIONS: 1. Continue empiric antimicrobials. 2. Okay to wean from BiPAP to nasal cannula oxygen to maintain saturations at or above 90%. 3. Continue Plavix and Eliquis per home regimen. 4. Hold on diuretics for now, given tenuous hemodynamics. 5. Recommend ongoing goals of care discussion with the patient and family. IMPRESSIONS: 1. Acute hypoxemic respiratory failure Most likely multifactorial in etiology. Less likely to be related to underlying bacterial pneumonia. The patient does have a rhinovirus infection and what is likely some pulmonary edema in the setting of decompensated diastolic heart failure and valvular heart disease. However, the patient's hemodynamic status is too tenuous to provide significant diuretic support. For now, it is reasonable to continue empiric antimicrobials. Small boluses of Lasix can be provided as needed, depending on the patient's hemodynamic status. In general, however, the patient's overall quality of life is poor with significant comorbidities and frequent hospitalizations. It does appear that the patient is are willing to discuss goals of care with the possibility of transition to comfort care measures. Additional family are planning to arrive from [place] later today. 2. Acute on chronic kidney disease Most likely prerenal in etiology. No intervention planned at this time. We will continue to monitor the patient clinically. Depending on the patient's decision regarding goals of care and whether or not renal function worsens, would need to consider possible renal ultrasound as the next step. 3. Peripheral arterial disease The patient is status post recent thrombectomy and stenting by Dr. Camp. The patient will need to be continued on Plavix and Eliquis. 4. Paroxysmal atrial fibrillation with RVR/heart failure with preserved ejection fraction/history of coronary artery disease/chronic kidney disease/diabetes Complicates care, management, recovery and prognosis. Continue supportive care as noted above. Continue Accu-Cheks and sliding scale insulin coverage. This note was generated with [employer] dictation software. It may contain incorrect words, spelling, and punctuation that were not noted in checking the note before signing. HPI Consult Data Date of Consult: 02/16/23 HPI Narrative Reason for Consultation: Respiratory failure HPI Narrative: The patient is an 78-year-old male, with a history as outlined below, who presented to the emergency department via EMS on February 15 with progressive shortness of breath. The patient was just admitted to the hospital January 31 t hrough February 03 with sepsis suspected to be related to an infected foot ulcer. The patient underwent bedside debridement at that time. The patient does have a history of peripheral arterial disease and is status post thrombectomy and stenting. The patient recently followed up in the vascular surgery clinic on February 13, at which time, there were discussions regarding the possibility of proceeding with a left BKA. The patient's medical history is also significant for atrial fibrillation with RVR, coronary artery disease, hypertension and valvular heart disease. On presentation to the emergency department, the patient was noted to have a temperature of 97.1 ?F. He was hypotensive with a presenting blood pressure of 81/58 mmHg. initial laboratory evaluation revealed no evidence of a leukocy tosis. Chemistry profile was notable for a sodium of 131, BUN of 55 and creatinine of 1.93. Lactate was elevated at 3.8. Troponin was elevated at 82 with a BNP of 1089. Procalcitonin was unremarkable. Chest x-ray demonstrated bibasilar opacities. Respiratory viral panel was positive for rhinovirus. Blood cultures were collected. The patient initially was given IV fluids, only to later be administered Lasix. He was initiated on antimicrobials and admitted to the medical intensive care unit for further management. I spoke with the patient and his this morning, who was present at the bedside. She reported that the patient's quality of life has been exceedingly poor over the course of the last year. He has continued to decompensate clinically in that time. She reported that they are now considering a transition and goals of care to possible comfort measures. She reported that she has already contacted their children, who plan to arrive from [place] later today. 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 Anemia Anticoagulated Atherosclerosis of coronary artery of [place] heart without angina pectoris Atherosclerosis of [place] artery of extremity with ulceration Atrial fibrillation BPH (benign prostatic hyperplasia) Cellulitis of foot, left Chronic diastolic (congestive) heart failure Chronic kidney disease Diabetes Diabetes mellitus with diabetic polyneuropathy Erectile dysfunction Essential (primary) hypertension History of non-ST elevation myocardial infarction (NSTEMI) (08/26/16) Hyperglycemia due to type 2 diabetes mellitus Hyperlipidemia Inguinal hernia of right side without obstruction or gangrene Iron deficiency anemia Kidney disease Longstanding persistent atrial fibrillation Multinodular goiter Non-ischemic cardiomyopathy 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 Non-pressure chronic ulcer of other part of left foot with fat layer exposed Non-pressure chronic ulcer of other part of left foot with necrosis of muscle Nonrheumatic aortic (valve) stenosis NSTEMI, initial episode of care Paroxysmal atrial fibrillation Partial seizure disorder Peripheral vascular disease, unspecified Peripheral vascular occlusive disease Pre-syncope Seizures Syncope Type 2 diabetes mellitus Type 2 diabetes mellitus with diabetic polyneuropathy Type 2 diabetes mellitus with foot ulcer Type 2 diabetes mellitus with left diabetic foot infection Urinary retention Urinary retention due to benign prostatic hyperplasia Ventral incisional hernia without obstruction or gangrene Wound of foot Home Medications atorvastatin 80 mg tablet 80 mg PO QHS cholesterol 07/21/18 [History Last Taken 12/09/22] lamotrigine 200 mg tablet 200 mg PO BID seizures 07/21/18 [History Last Taken 12/10/22 08:00] metformin 500 mg tablet,extended release 24 hr 1,000 mg PO BID diabetes 07/21/18 [History Last Taken 12/10/22 08:00] finasteride 5 mg tablet 5 mg PO DAILY prostate 08/07/20 [History Last Taken 12/10/22 08:00] magnesium oxide 400 mg PO DAILY supplement 08/07/20 [History Last Taken 12/10/22 08:00] nitroglycerin 0.4 mg sublingual tablet 0.4 mg sublingual Q5M PRN Chest Pain 08/07/20 [History Last Taken Unknown] clopidogrel 75 mg tablet 75 mg PO DAILY Check with primary doctor 03/25/22 [History Last Taken 12/10/22 08:00] isosorbide mononitrate 60 mg tablet,extended release 24 hr 60 mg PO DAILY heart 03/25/22 [History Last Taken 12/10/22 08:00] pantoprazole 40 mg tablet,delayed release 40 mg PO DAILY stomach 03/25/22 [History Last Taken 12/10/22 08:00] apixaban 5 mg tablet (Eliquis) 5 mg PO BID blood thinner 05/09/22 [History Last Taken 12/10/22 08:00] sslrgdh-lbnwmvhjg-pjir tablet See Rx Instructions PO .COMPLEX supplement 05/09/22 [History Last Taken Unknown] cholecalciferol (vitamin D3) 50 mcg (2,000 unit) capsule 50 mcg PO DAILY supplement 05/09/22 [History Last Taken 12/10/22 08:00] cinnamon bark 500 mg capsule (Cinnamon) 500 mg PO DAILY supplement 05/09/22 [History Last Taken 12/10/22 08:00] metoprolol tartrate 75 mg tablet 50 mg PO BID heart/blood pressure 05/09/22 [History Last Taken 12/10/22 08:00] tamsulosin 0.4 mg capsule 0.8 mg PO DAILY urination 05/09/22 [History Last Taken 12/10/22 08:00] semaglutide 2 mg/dose (8 mg/3 mL) subcutaneous pen injector (Ozempic) 8 mg subcut QWEEK dm 12/10/22 [History Last Taken 12/03/22] furosemide 20 mg tablet (Lasix) 20 mg PO DAILY 30 days #30 tabs 12/30/22 [Rx Last Taken Unknown] arginine 7 gram-glutam 7 gram-CaHMB 1.5 [id number]-pg-min oral pwd pkt (Oziel (with collagen)) 1 packet PO BIDCM #8 ea 02/03/23 [Rx Last Taken Unknown] ciprofloxacin HCl 500 mg tablet (Cipro) 500 mg PO BID #20 tabs 02/03/23 [Rx Last Taken Unknown] melatonin 3 mg tablet 3 mg PO QHS PRN PRN Insomnia #0 tabs 02/03/23 [Rx Last Taken Unknown] menthol 0.44 %-zinc oxide 20.6 % topical ointment (Calmoseptine) 1 applic topical BID #0 grams 02/03/23 [Rx Last Taken Unknown] nutrition tx glu intol,lac-free,soy-fiber 0.06 gram-1.2 kcal/mL liquid (Glucerna 1.2 Dez) 120 ml PO TIDCM #0 mL 02/03/23 [Rx Last Taken Unknown] sennosides 8.6 mg-docusate sodium 50 mg tablet (Stool Softener-Stimulant Laxative) 2 tab PO BID PRN Constipation #0 tabs 02/03/23 [Rx Last Taken Unknown] sodium hypochlorite 0.25 % solution (HySept) 1 applic topical DAILY #0 mL 02/03/23 [Rx Last Taken Unknown] dulaglutide 0.75 mg/0.5 mL subcutaneous pen injector (Trulicity) 0.75 mg subcut QWEEK 02/15/23 [History Last Taken Unknown] Allergy/AdvReac Type Severity Reaction Status Date / Time carbamazepine [From Tegretol] Allergy Rash Verified 02/12/23 15:10 Family History Mother Cancer Heart disease Father Hypertension Diabetes Son Heart disease Surgical History History of angioplasty of peripheral vessel (06/28/14) History of atherectomy History of cardioversion (08/21/16) History of colonoscopy (01/2019) History of coronary artery stent placement (03/20/22) History of inguinal hernia repair 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 Catherine Macias MD) household members: spouse housing: halfway Smoking Status: Former smoker quit date: 08/04/69 pack-years: 10 alcohol intake: current alcohol intake frequency: a few times a month substance use type: does not use ROS ROS Narrative 10 systems were reviewed with pertinent positives as noted in the HPI above. Physical Exam Const alert Constitutional Narrative: Currently tolerating BiPAP. Chronically ill in appearance. General Appearance: cooperative HEENT normocephalic and head/scalp atraumatic Eyes PERRL, EOMs intact bilaterally and conjunctivae normal Neck supple General: trachea midline Chest inspection of chest normal Resp normal respiratory effort Auscultation: wheezes Cardio S1 normal heart sound and S2 normal heart sound Rhythm: abnormal rhythm Heart Sounds: murmur GI normal to inspection, nondistended, normoactive bowel sounds Extremity General Extremity: edema bilateral lower extremity Skin Skin Narrative: Wrapped left lower extremity. Neuro CN's II-XII intact bilaterally and no focal motor deficits Psych Mood & Affect: flat affect Lab / Micro Data 02/15/23 23:45 02/15/23 23:45 Labs: Laboratory Results - last 24 hr 02/15/23 23:45: WBC 10.1, RBC 3.89 L, Hgb 11.0 L, Hct 35.9 L, MCV 92.3, MCH 28.3, MCHC 30.6 L, RDW Std Deviation 53.5 H, RDW Coeff of Danis 15.9 H, Plt Count 254, MPV 9.8, Immature Gran % (Auto) 0.500, Neut % (Auto) 78.8 H, Lymph % (Auto) 15.0 L, [place] % (Auto) 4.7, Eos % (Auto) 0.5, Baso % (Auto) 0.5, Absolute Neuts (auto) 8.0 H, Absolute Lymphs (auto) 1.51, Nucleated RBC % 0, Sodium 131 L, Potassium 4.4, Chloride 99, Carbon Dioxide 24.0, Anion Gap 8, BUN 55 H, Creatinine 1.93 H, Estim Creat Clear Calc 31.26, Est GFR (MDRD) Af Amer 43 L, Est GFR (MDRD) Non-Af 36 L, BUN/Creatinine Ratio 28.5 H, Glucose 113 H, Calcium 8.3 L, Magnesium 2.0, Troponin I High Sens 82 H, B-Natriuretic Peptide 1089.8 H, Procalcitonin < 0.04 02/16/23 00:10: Lactic Acid 3.8 H* 02/16/23 03:22: POC Glucose 49 L 02/16/23 04:09: POC Glucose 139 H Micro: Microbiology 02/15/23 23:45 Nasal Secretion SARS-CoV-2 & FLU Antigen (Rapid) - Final Radiology Impression Chest X-Ray 02/16/23 00:00 IMPRESSION: Persistent bibasilar atelectasis versus infiltrate. Bandlike atelectasis left midlung. Electronically Signed: Felipe Li MD at 1:21 EDT , Charges/Coding Visit Charges Inpatient E&M: 21749 Init Hosp L3
[2023-02-16] MEDS: Albuterol 2.5 MG/3 ML VIAL.NEB. INHALATION (07:16)
[2023-02-16] MEDS: Budesonide Respules 0.5 MG/2 ML AMPUL.NEB. INHALATION (07:16)
--- NOTE | 2023-02-16 07:20 | PN.HOSP_ITS ---
Reason for Visit Reason for Visit: Diagnoses Respiratory failure, unspecified, unspecified whether with hypoxia or hypercapn ia (02/16/23) Subjective Subjective He is requesting to go with hospice. He does not wish to continue with medical care at this time. Objective Data Objective Data Vital Signs: Vital Signs Temp Pulse Resp BP Pulse Ox O2 Del Method O2 Flow Rate 36.1 C L 80 17 107/78 95 Bi-pap 3 02/16/23 05:00 02/16/23 07:00 02/16/23 07:00 02/16/23 07:00 02/16/23 07:00 02/16/23 07:00 02/16/23 01:46 FiO2 30 02/16/23 07:00 Oxygen Flow Rate (L/min) 3 Oxygen Delivery Method Bi-pap Weight: 72.2 kg Body Mass Index (BMI) 22.2 Intake & Output: Intake and Output for Last 24 Hours 02/14/23 02/15/23 02/16/23 23:59 23:59 23:59 Intake Total 250 / 250 Output Total 370 / 370 Balance -120 / -120 Lab / Micro Data 02/15/23 23:45 02/15/23 23:45 Labs: Laboratory Results - last 24 hr 02/15/23 23:45: WBC 10.1, RBC 3.89 L, Hgb 11.0 L, Hct 35.9 L, MCV 92.3, MCH 28.3, MCHC 30.6 L, RDW Std Deviation 53.5 H, RDW Coeff of Danis 15.9 H, Plt Count 254, MPV 9.8, Immature Gran % (Auto) 0.500, Neut % (Auto) 78.8 H, Lymph % (Auto) 15.0 L, [place] % (Auto) 4.7, Eos % (Auto) 0.5, Baso % (Auto) 0.5, Absolute Neuts (auto) 8.0 H, Absolute Lymphs (auto) 1.51, Nucleated RBC % 0, Sodium 131 L, P otassium 4.4, Chloride 99, Carbon Dioxide 24.0, Anion Gap 8, BUN 55 H, Creatinine 1.93 H, Estim Creat Clear Calc 31.26, Est GFR (MDRD) Af Amer 43 L, Est GFR (MDRD) Non-Af 36 L, BUN/Creatinine Ratio 28.5 H, Glucose 113 H, Calcium 8.3 L, Magnesium 2.0, Troponin I High Sens 82 H, B-Natriuretic Peptide 1089.8 H, Procalcitonin < 0.04 02/16/23 00:10: Lactic Acid 3.8 H* 02/16/23 03:22: POC Glucose 49 L 02/16/23 04:09: POC Glucose 139 H Micro: Microbiology 02/16/23 03:41 Mucosa - Nasopharyngeal Respiratory Panel (PCR) - Final Rhinovirus 02/15/23 23:45 Nasal Secretion SARS-CoV-2 & FLU Antigen (Rapid) - Final Radiography Diagnostic Testing: Radiology Impression Chest X-Ray 02/16/23 00:00 IMPRESSION: Persistent bibasilar atelectasis versus infiltrate. Bandlike atelectasis left midlung. Electronically Signed: Felipe Li MD at 1:21 EDT , Physical Exam Const alert and no apparent distress Constitutional Narrative: up in bed. Recalled my name without me having the opportunity to introduce myself. no respiratory distress. no conversational dyspnea. HEENT head/scalp atraumatic and moist oral mucous membranes Neuro moves all extremities Sensorium / Orientation: awake and alert Psych affect normal Assessment & Plan Assessment/Plan (1) Respiratory failure: QUALIFIERS: Chronicity: acute Respiratory failure complication: hypoxia Qualified Code(s): J96.01 - Acute respiratory failure with hypoxia PLAN: Acute Hypoxic Respiratory Failure secondary to Acute Decompensated Diastolic CHF and concurrent Possible Pneumonia, GN/GP Organism potential and ATX and rhinovirus Weaned off BiPAP Most recent ECHO noted 12/14/2022 with normal LV size, normal LV systolic function, mild eccentric LV hypertrophy, mean AV gradient 22 mmHg with evidence of moderate aortic stenosis, PASP 44 mmHg. (2) Pneumonia: QUALIFIERS: Laterality: right Lung location: lower lobe of lung Pneumonia type: due to other aerobic Gram-negative bacteria Qualified Code(s): J15.6 - Pneumonia due to other Gram-negative bacteria PLAN: suspected PEP Clarification: pt has NOT had confirmed Klebsiella pneumonia in sputum previously Since pt is choosing hospice, I will deescalate antibiotics to augmentin (3) MAIRA (acute kidney injury): PLAN: worsening continue to hold diuretics Pt now choosing hospice. No further work up at this time. PLAN: Plan Chronic conditions: * PAD: Patient with recent 01/22/23 LLE aortogram, left lower extremity runoff, IVUS left PT, TP trunk, SFA/popliteal arteries with mechanical thrombectomy of the left FSA/popliteal/TP trunk angioplasty/stent left popliteal/TP trunk angioplasty left SFA per Dr. Camp, will continue Plavix, Eliquis cautiously given recent acute blood loss as noted #1, statin, holding hypertensive regimen given hypotension. * Chronic diastolic CHF, appears currently compensated: Chest x-ray with no acute cardiopulmonary findings, BNP 496.7, most recent echocardiogram noted 12/14/2022 with normal LV size, normal LV systolic function, mild eccentric LV hypertrophy, mean AV gradient 22 mmHg with evidence of moderate aortic stenosis, PASP 44 mmHg. We will cautiously continue Plavix, Eliquis, holding hypertensive regimen given hypertensive presentation as noted, continue statin therapy, judicious hydration given history. * CAD/nonischemic card myopathy: clopidogrel. Stent placed to mid left circumflex on 03/20/22 * Diabetes mellitus type II: Hold oral home regimen, ADA diet, accu checks w/ ISS. * Hypertension: Given presentation with hypotension holding all hypertensive regimen, resume once appropriate. * Hyperlipidemia: We will continue patient home statin therapy. * Former tobacco use: Encourage continued tobacco cessation. * BPH: We will continue patient home Flomax and finasteride regimen. * GERD: We will continue patient on PPI. * Partial seizure disorder: lamotrigine VTE prophylaxis: not indicated. already anticoagulated on apixaban Code status: DNRCC. Patient wants to proceed with hospice and focus on quality of life. Will deescalate therapy as above for chronic conditions. And focus on symptomatic control. Hospice to see patient this afternoon. Charges/Coding Visit Charges Inpatient E&M: 34218 Subs Hosp L2
[2023-02-16] MEDS: Tamsulosin HCl 0.4 MG Capsule 0.8 MG PO (10:05)
[2023-02-16] MEDS: APIXABAN 5 MG TABLET PO (10:06)
[2023-02-16] MEDS: Clopidogrel Bisulfate 75 MG Tablet PO (10:06)
[2023-02-16] MEDS: Finasteride 5 MG Tablet PO (10:07)
[2023-02-16] MEDS: Pantoprazole Sodium 40 MG Tablet PO (10:07)
--- NOTE | 2023-02-16 15:22 | NURSING ---
report called to MS Radha RN at this time
--- NOTE | 2023-02-16 21:06 | PCM.DC.SUM ---
Providers Date of Admission: 02/16/23 Date of Discharge: 02/16/23 Primary Care Physician: Dr. Montrell Gallardo MD Consultations 02/16/23 02:13 Consult: Onc/Wound/alum operator Routine Comment: Reason for Consult:: L foot wound Reason For Visit: CHF EXACERBATION, POSSIBLE PNA, LACTIC ACIDOSIS/ Diagnosis Discharge Diagnosis (1) Respiratory failure: Status: Acute Code(s): J96.90 - Respiratory failure, unspecified, unspecified whether with hypoxia or hypercapnia Qualifiers: Chronicity: acute Respiratory failure complication: hypoxia Qualified Code(s): J96.01 - Acute respiratory failure with hypoxia (2) Pneumonia: Status: Acute Code(s): J18.9 - Pneumonia, unspecified organism Qualifiers: Laterality: right Lung location: lower lobe of lung Pneumonia type: due to other aerobic Gram-negative bacteria Qualified Code(s): J15.6 - Pneumonia due to other Gram-negative bacteria (3) MAIRA (acute kidney injury): Status: Acute Code(s): N17.9 - Acute kidney failure, unspecified Plan: Discharge diagnoses: #1. Acute Hypoxic Respiratory Failure secondary to Acute Decompensated Diastolic CHF and concurrent Possible Pneumonia, GN/GP Organism potential with Lactic acidosis potentially secondary to infection versus Hypoxia #2. MAIRA on Chronic Kidney Disease Stage II #3. Recent Klebsiella pneumonia LLE Diabetic Foot Wound Foot with associated bacteremia #4. Recent Klebsiella pneumonia complicated urinary tract infection #5. Chronic normocytic anemia #6. PAF #7. PAD #8. CAD/nonischemic card myopathy #9. Diabetes mellitus type II #10. Hypertension #11. Hyperlipidemia #12. Former tobacco use #13. BPH #14. GERD #15. Partial seizure disorder Medications at Discharge Home Medications atorvastatin 80 mg tablet 80 mg PO QHS cholesterol 07/21/18 lamotrigine 200 mg tablet 200 mg PO BID seizures 07/21/18 metformin 500 mg tablet,extended release 24 hr 1,000 mg PO BID diabetes 07/21/18 finasteride 5 mg tablet 5 mg PO DAILY prostate 08/07/20 magnesium oxide 400 mg PO DAILY supplement 08/07/20 nitroglycerin 0.4 mg sublingual tablet 0.4 mg sublingual Q5M PRN Chest Pain 08/07/20 clopidogrel 75 mg tablet 75 mg PO DAILY Check with primary doctor 03/25/22 isosorbide mononitrate 60 mg tablet,extended release 24 hr 60 mg PO DAILY heart 03/25/22 pantoprazole 40 mg tablet,delayed release 40 mg PO DAILY stomach 03/25/22 apixaban 5 mg tablet (Eliquis) 5 mg PO BID blood thinner 05/09/22 gsxnqmm-[id number]-nrda tablet See Rx Instructions PO .COMPLEX supplement 05/09/22 cholecalciferol (vitamin D3) 50 mcg (2,000 unit) capsule 50 mcg PO DAILY supplement 05/09/22 cinnamon bark 500 mg capsule (Cinnamon) 500 mg PO DAILY supplement 05/09/22 metoprolol tartrate 75 mg tablet 50 mg PO BID heart/blood pressure 05/09/22 tamsulosin 0.4 mg capsule 0.8 mg PO DAILY urination 05/09/22 semaglutide 2 mg/dose (8 mg/3 mL) subcutaneous pen injector (Ozempic) 8 mg subcut QWEEK dm 12/10/22 furosemide 20 mg tablet (Lasix) 20 mg PO DAILY 30 days #30 tabs 12/30/22 arginine 7 gram-glutam 7 gram-CaHMB 1.5 xdfd-gclvp-hi-min oral pwd pkt (Oziel (with collagen)) 1 packet PO BIDCM #8 ea 02/03/23 melatonin 3 mg tablet 3 mg PO QHS PRN PRN Insomnia #0 tabs 02/03/23 menthol 0.44 %-zinc oxide 20.6 % topical ointment (Calmoseptine) 1 applic topical BID #0 grams 02/03/23 nutrition tx glu intol,lac-free,soy-fiber 0.06 gram-1.2 kcal/mL liquid (Glucerna 1.2 Dez) 120 ml PO TIDCM #0 mL 02/03/23 sennosides 8.6 mg-docusate sodium 50 mg tablet (Stool Softener-Stimulant Laxative) 2 tab PO BID PRN Constipation #0 tabs 02/03/23 sodium hypochlorite 0.25 % solution (HySept) 1 applic topical DAILY #0 mL 02/03/23 dulaglutide 0.75 mg/0.5 mL subcutaneous pen injector (Trulicity) 0.75 mg subcut QWEEK 02/15/23 Hospital Course Operations None Procedures EKG Summary of Care Provided Minutes Spent on Discharge: 35 Hospital Course: The patient is an 78 y/o M w/ PMHx: Chronic LLE Wound, Former tobacco use, Chronic anemia, Chronic Diastolic CHF, HTN, HLD, GERD, PAF, BPH, Chronic anemia/Fe deficiency, CAD/Nonischemic cardiomyopathy, Diabetes mellitus type II, Partial seizure disorder, CKD stage II, PAD s/p 12/12/22 left sfa/popliteal thrombectomy/SATELLITE INSTALLATION TECHNICIAN/stent, left TP trunk SATELLITE INSTALLATION TECHNICIAN per Dr. Camp with then revision amputation w/ Dr. Baxter 12/11/22 requiring 01/31/23 w/ repeat mechanical thrombectomy/stent left sfa/popliteal/TP trunk, recent discharge 02/03/23 following treatment and evaluation for infected left foot, acute blood loss anemia following recent bleed from his incisional site as well as atrial fibrillation with RVR and NSTEMI likely secondary to demand with septic presentation with also bacteremia specifically with Klebsiella pneumonia and urine culture demonstrating growth with Klebsiella pneumonia as well as his wound culture sensitive to Rocephin with ID consulted and discharged on 10 additional days of ciprofloxacin with plan for future further discussions of BKA for improved source control and healing with most recent follow-up with vascular surgery 02/12/2023 who now re-presented to the [facility] ED on 02/16/23 with shortness of breath which has been worsening over the last couple of days with no cough associated however he has had increased lower extremity swelling with no recent fevers or chills but not improving prompting ED evaluation. Admitted inially to the ICU given continued full CODE STATUS at that time with continued BiPAP, credentials specialist involvement as well as pulse dose IV Lasix diuresis as blood pressure allowed in addition to broad-spectrum antibiotic therapy with IV vancomycin and IV Zosyn for possible underlying pneumonia in addition to failure. Patient and family eventually decided to transition from aggressive measures and full CODE STATUS to comfort care and requested hospice consultation. In the interim patient aggressive interventions were de-escalated and comfort measures pursued. Patient was evaluated by hospice and felt appropriate for inpatient hospice unit and discharged once hospice unit facility transport. Weight / BMI Weight Weight: 159 lb 2.78 oz Body Mass Index (BMI) 22.2 ABG / Lab / Microbiology Data 02/15/23 23:45 02/15/23 23:45 Laboratory: Laboratory Results - last 24 hr 02/15/23 23:45: WBC 10.1, RBC 3.89 L, Hgb 11.0 L, Hct 35.9 L, MCV 92.3, MCH 28.3, MCHC 30.6 L, RDW Std Deviation 53.5 H, RDW Coeff of Danis 15.9 H, Plt Count 254, MPV 9.8, Immature Gran % (Auto) 0.500, Neut % (Auto) 78.8 H, Lymph % (Auto) 15.0 L, [place] % (Auto) 4.7, Eos % (Auto) 0.5, Baso % (Auto) 0.5, Absolute Neuts (auto) 8.0 H, Absolute Lymphs (auto) 1.51, Nucleated RBC % 0, Sodium 131 L, Potassium 4.4, Chloride 99, Carbon Dioxide 24.0, Anion Gap 8, BUN 55 H, Creatinine 1.93 H, Estim Creat Clear Calc 31.26, Est GFR (MDRD) Af Amer 43 L, Est GFR (MDRD) Non-Af 36 L, BUN/Creatinine Ratio 28.5 H, Glucose 113 H, Calcium 8.3 L, Magnesium 2.0, Troponin I High Sens 82 H, B-Natriuretic Peptide 1089.8 H, Procalcitonin < 0.04 02/16/23 00:10: Lactic Acid 3.8 H* 02/16/23 03:22: POC Glucose 49 L 02/16/23 04:09: POC Glucose 139 H Microbiology: Microbiology 02/16/23 03:41 Mucosa - Nasopharyngeal Respiratory Panel (PCR) - Final Rhinovirus 02/15/23 23:45 Nasal Secretion SARS-CoV-2 & FLU Antigen (Rapid) - Final Radiography Diagnostic Testing: Radiology Impression Chest X-Ray 02/16/23 00:00 IMPRESSION: Persistent bibasilar atelectasis versus infiltrate. Bandlike atelectasis left midlung. Electronically Signed: Felipe Li MD at 1:21 EDT , D/C Instructions Discharge Diet: No restrictions Meaningful Use Info Meaningful Use Diagnoses (Choose all that apply): CHF CHF ODETTE/ARB ordered at discharge?: No Reason ODETTE/ARB not ordered?: Hypotension Documented LVEF (%): 55 CVA Therapy Assessed for PT,OT and/or ST?: No Reason therapy not assessed?: Hospice Discharge Plan Admission Admit Date/Time: 02/16/23 01:49 Primary Reason for Your Visit: Respiratory failure, Diastolic CHF Exac, ? PNA, MAIRA Attending Provider: Wong Carrion Primary Care Provider: Montrell Gallardo Consulting Providers: Catherine Macias Discharge Orders/Prescriptions Prescriptions: Continued atorvastatin 80 mg tablet 80 mg PO QHS lamotrigine 200 mg tablet 200 mg PO BID metformin 500 mg tablet extended release 24 hr 1,000 mg PO BID clopidogrel 75 mg tablet 75 mg PO DAILY isosorbide mononitrate 60 mg tablet extended release 24 hr 60 mg PO DAILY pantoprazole 40 mg tablet,delayed release (DR/EC) 40 mg PO DAILY [id number]-[id number] Tablet See Rx Instructions PO .COMPLEX Rx Instructions: orally po; tamsulosin 0.4 mg capsule 0.8 mg PO DAILY cholecalciferol (vitamin D3) 50 mcg (2,000 unit) capsule 50 mcg PO DAILY cinnamon bark [Cinnamon] 500 mg capsule 500 mg PO DAILY Eliquis 5 mg tablet 5 mg PO BID metoprolol tartrate 75 mg tablet 50 mg PO BID Hold Instructions: per ECF nitroglycerin 0.4 MG tablet, sublingual 0.4 mg SUBLINGUAL Q5M PRN (Reason: Chest Pain) finasteride 5 MG tablet 5 mg PO DAILY magnesium oxide 400 MG tablet 400 mg PO DAILY Ozempic 2 mg/dose (8 mg/3 mL) pen injector 8 mg SUBCUT QWEEK Hold Instructions: ECF does not have, on trulicity Rx Instructions: Wednesdays furosemide [Lasix] 20 mg tablet 20 mg PO DAILY 30 Days Qty: 30 0RF Oziel (with collagen) 7-7-1.5 gram Powder In Packet 1 packet PO BIDCM Qty: 8 0RF Glucerna 1.2 Dez 0.06-1.2 gram-kcal/mL Liquid 120 ml PO TIDCM Qty: 0 0RF sennosides-docusate sodium [Stool Softener-Stimulant Laxat] 8.6-50 mg Tablet 2 tab PO BID PRN (Reason: Constipation) Qty: 0 0RF melatonin 3 mg Tablet 3 mg PO QHS PRN PRN (Reason: Insomnia) Qty: 0 0RF HySept 0.25 % Solution 1 applic topical DAILY Qty: 0 0RF Protocol: *Topical Application Instructions APPLICATION INSTRUCTIONS: left foot wound menthol-zinc oxide [Calmoseptine] 0.44-20.6 % Ointment 1 applic topical BID Qty: 0 0RF Protocol: *Topical Application Instructions APPLICATION INSTRUCTIONS: coccyx Trulicity 0.75 mg/0.5 mL pen injector 0.75 mg subcut QWEEK Discontinued ciprofloxacin HCl [Cipro] 500 mg tablet 500 mg PO BID Qty: 20 0RF Rx Instructions: For 10 days Referrals / Follow Up: Jerry Dee MD [Med Staff - Disability Services Coordinator] - (Given comfort care hospice transition no need to follow-up with primary care unless patient preference.) Disposition Disposition (needs filled in before D/C Order can be placed): Hospice in Medical Facility Charges/Coding Visit Charges Inpatient E&M: 76089 Disch Hosp >30min
--- NOTE | 2023-02-16 21:30 | NURSING ---
flight engineer helicopter spoke to this nurse and said patient has a bed at the inpatient facility. Asked me to call report and arrange for transportation.
--- NOTE | 2023-02-16 23:07 | NURSING ---
Report called to hospice. Family here and aware patient will be transported tonight.
--- NOTE | 2023-02-16 23:30 | NURSING ---
After report called to saw sharpener. I asked them to arrange for transport. RN stated they do not transport this time of night we would have to call [facility] to transport. Made printing machine operator tape rules aware and he is calling [facility].
== END 2023-02-17 03:25 | disposition hospice, inpatient (51) | DRG 177 ==
LOC: ED 02-16 01:47 → ICU 02-16 02:03 → MS3 02-16 18:03
PROVIDERS: Admitting Provider Family Medicine; Emergency Provider Emergency Medicine; PCP Internal Medicine
DX: J15.6 Pneumonia due to other Gram-negative bacteria (principal); J96.01 Acute respiratory failure with hypoxia; I50.33 Acute on chronic diastolic (congestive) heart failure; E87.20 Acidosis, unspecified; I42.8 Other cardiomyopathies; N17.9 Acute kidney failure, unspecified; G40.109 Localization-related (focal) (partial) symptomatic epilepsy and epileptic syndromes with simple partial seizures, not intractable, without status epilepticus; I13.0 Hypertensive heart and chronic kidney disease with heart failure and stage 1 through stage 4 chronic kidney disease, or unspecified chronic kidney disease; D63.1 Anemia in chronic kidney disease; L97.523 Non-pressure chronic ulcer of other part of left foot with necrosis of muscle; I48.0 Paroxysmal atrial fibrillation; E11.22 Type 2 diabetes mellitus with diabetic chronic kidney disease; E11.51 Type 2 diabetes mellitus with diabetic peripheral angiopathy without gangrene; E11.42 Type 2 diabetes mellitus with diabetic polyneuropathy; Z89.432 Acquired absence of left foot; I70.245 Atherosclerosis of native arteries of left leg with ulceration of other part of foot; E11.621 Type 2 diabetes mellitus with foot ulcer; I25.10 Atherosclerotic heart disease of native coronary artery without angina pectoris; E78.5 Hyperlipidemia, unspecified; N18.2 Chronic kidney disease, stage 2 (mild); K21.9 Gastro-esophageal reflux disease without esophagitis; I25.2 Old myocardial infarction; I35.0 Nonrheumatic aortic (valve) stenosis; N40.0 Benign prostatic hyperplasia without lower urinary tract symptoms; B34.8 Other viral infections of unspecified site; B96.1 Klebsiella pneumoniae [K. pneumoniae] as the cause of diseases classified elsewhere; Z66 Do not resuscitate; Z95.5 Presence of coronary angioplasty implant and graft; Z79.01 Long term (current) use of anticoagulants; Z79.02 Long term (current) use of antithrombotics/antiplatelets; Z79.84 Long term (current) use of oral hypoglycemic drugs; Z79.85 Long-term (current) use of injectable non-insulin antidiabetic drugs; Z79.899 Other long term (current) drug therapy; Z87.440 Personal history of urinary (tract) infections; Z87.891 Personal history of nicotine dependence
CPT/HCPCS: 71045; 80048; 82962; 83605; 83735; 83880; 84145; 84484; 85025; 87040; 87428; 87633; 93005; 94002; 94640; 97802; 99285; J7030; A4216; J1940